=== PATIENT | male | born 1950 | race Caucasian/White ===

== ENCOUNTER 2016-04-18 21:35 | Observation (INO) | payer MEDICARE ==
[2016-04-18] MEDS ORDERED: SODIUM CHLORIDE 0.9% 1,000 ML IV ONE (21:59)
[2016-04-18] MEDS ORDERED: SODIUM CHLORIDE 0.9% 500 ML IV ONE (21:59)
[2016-04-18 22:14] LABS: Basophils # (A) 0.2 k/uL (0-0.2); Basophils % (A) 2 %; CH 30.1; CHCM 33.8; Eosinophils # (A) 0.2 k/uL (0-0.7); Eosinophils % (A) 2 %; HCT 40.5 % (39.0-53.0); HGB 13.3 gm/dL (13.0-17.5); Luc # (Auto) 0.07; Luc % (Auto) 1; Lymphocytes # (A) 1.6 k/uL (1.0-4.8); Lymphocytes % (A) 18 %; MCH 29.2 pg (25.0-35.0); MCHC 32.7 g/dL (31.0-37.0); MCV 89.4 fL (80.0-100.0); Mean Platelet Volume 7.8; Monocytes # (A) 0.7 k/uL (0-1.0); Monocytes % (A) 7 %; Neutrophils # (A) 6.4 k/uL (1.3-7.7); Neutrophils % (A) 70 %; RBC 4.54 m/uL (4.30-5.90); RDW 13.5 % (11.5-15.5); WBC 9.1 k/uL (3.8-10.6); WBC (Perox) 9.34
[2016-04-18 22:22] LABS: ALT 31 U/L (21-72); AST 23 U/L (17-59); Alkaline Phosphatase 54 U/L (38-126); Anion Gap 16 mmol/L; Blood Urea Nitrogen 17 mg/dL (9-20); Calcium 9.9 mg/dL (8.4-10.2); Carbon Dioxide 23 mmol/L (22-30); Chloride 106 mmol/L (98-107); Glucose 134 mg/dL (74-99); INR 1.1 (<1.1); Non-African American GFR(MDRD) >60 (>60 ml/min/1.73 sqM); Partial Thromboplastin Time 27.9 sec (22.0-30.0); Potassium 4.4 mmol/L (3.5-5.1); Prothrombin Time 10.9 sec (9.0-12.0); Sodium 145 mmol/L (137-145); Total Bilirubin 1.5 mg/dL (0.2-1.3); Total Protein 7.7 g/dL (6.3-8.2)
--- NOTE | 2016-04-18 22:45 | ED ---
Fall HPI - General Chief Complaint: Fall Stated Complaint: FALL Time Seen by Provider: 04/18/16 21:48 Source: patient, EMS Mode of arrival: EMS - History of Present Illness Initial Comments: This 65-year-old white male presents with a complaint of multiple falls. He apparently fell earlier today and again shortly prior to arrival. He states that he hit his head on both occasions. He is unsure if he lost consciousness. He apparently had surgery on his right leg approximately 2 weeks ago. He's been getting around with a walker at home. He is unsure how he fell. He states that he has pain throughout his entire body. It seems somewhat worse into his lower back and into his back. He has been taking [place] baclofen and Valium for his symptoms. He denies taking more of these medications than he should. His daughter apparently may have related to paramedics that he may be abusing his pain medications. He is a very poor historian at this time and is minimally slurring his speech. He denies any chest pain or shortness of breath. He does relate that he has chronic vertigo and this affects his ambulation as well. No other complaints or modifying factors. - Related Data Home Medications Medication Instructions Recorded Confirmed Atorvastatin [Lipitor] 10 mg PO HS 10/08/15 03/24/16 Lisinopril [Zestril] 20 mg PO DAILY 10/08/15 03/24/16 metFORMIN HCL [Glucophage] 500 mg PO AC-BID 10/08/15 03/24/16 DULoxetine HCL [Duloxetine HCl] 30 mg PO HS 03/10/16 03/24/16 DULoxetine HCL [Duloxetine HCl] 60 mg PO DAILY 03/10/16 03/24/16 Magnesium Oxide [Mag-Ox] 400 mg PO DAILY 03/10/16 03/24/16 Diazepam [Valium] 5 mg PO HS 03/24/16 03/24/16 Previous Rx's Medication Instructions Recorded Baclofen [Lioresal] 10 mg PO QID #30 tab 03/15/16 HYDROcodone/APAP 10-325MG [[place] 1 - 2 each PO Q4-6H PRN #90 tab 03/15/16 10-325] Heparin Sodium,Porcine [Heparin 5,000 unit SQ Q12H 10 Days 03/15/16 Sodium] Sennosides-Docusate Sodium 1 tab PO BID #60 tablet 03/15/16 [Senokot-S] hydrOXYzine PAMOATE [Vistaril] 25 mg PO Q4HR PRN #60 cap 03/15/16 HYDROcodone/APAP 10-325MG [[place] 1 - 2 tab PO Q6H PRN #60 tab 03/23/16 10-325] Allergies Allergy/AdvReac Type Severity Reaction Status Date / Time cephalexin monohydrate Allergy Anaphylaxis Verified 03/24/16 15:40 [From Keflex] Penicillins Allergy Anaphylaxis Verified 03/24/16 15:40 Review of Systems ROS Statement: Those systems with pertinent positive or pertinent negative responses have been documented in the HPI. ROS Other: All systems not noted in ROS Statement are negative. Past Medical History Past Medical History: Atrial Fibrillation, Diabetes Mellitus, GERD/Reflux, Hypertension, Osteoarthritis (OA), Pneumonia Additional Past Medical History / Comment(s): 03-10-16 FELL/FX RT FIBULA, VERTIGO History of Any Multi-Drug Resistant Organisms: None Reported Past Surgical History: Back Surgery, Orthopedic Surgery Additional Past Surgical History / Comment(s): Bilateral mastectomy with right sided lymp node removal, rt. knee cap removed, back surgery for herniated disc. , Brain stem surgery for decompression-for dizziness, right ankle ORIF Past Anesthesia/Blood Transfusion Reactions: No Reported Reaction Past Psychological History: No Psychological Hx Reported Smoking Status: Former smoker Past Alcohol Use History: None Reported Additional Past Alcohol Use History / Comment(s): STARTED SMOKING AT AGE 18, SMOKE A PIPE GOES THRU A PACK OF PIPE TOBACCO/DAY quit smoking in 2005 Past Drug Use History: None Reported - Past Family History Father History Unknown: Yes Family Medical History: Congestive Heart Failure (CHF), Coronary Artery Disease (CAD), Hypertension Mother History Unknown: Yes Additional Family Medical History / Comment(s): pulmonary HTN General Exam - General Exam Comments Initial Comments: GENERAL: The patient is well nourished and well hydrated. VITAL SIGNS: Heart rate, blood pressure, respiratory rate reviewed as recorded in nurse's notes. EYES: Pupils are round and reactive. Extraocular movements are intact. No conjunctival / lid redness or swelling. ENT: No external evidence of injury, swelling, or ecchymosis. Airway is patent. Throat is clear. NECK: There is mild tenderness noted to the paracervical musculature. No swelling or evidence of injury. No subcutaneous emphysema. Trachea is midline. No thyroid mass. HEART: Regular rate and rhythm. Good peripheral pulses. LUNGS/CHEST: Breath sounds clear and equal bilaterally. No rales, rhonchi, or wheezes. No ecchymosis, subcutaneous emphysema, or tenderness. ABDOMEN: Abdomen soft without tenderness. No palpable masses or organomegaly. No peritoneal signs. No abdominal wall swelling or ecchymosis. EXTREMITIES: The patient has a cast on his right leg just distal to his knee through his foot. Normal muscle tone and function otherwise. There is mild tenderness to the paralumbar musculature. NEUROLOGIC: Sensation is grossly intact. Cranial nerve exam reveals face is symmetrical, tongue is midline, speech is mildly slurred. SKIN: No abrasions or ecchymosis is noted. No induration or masses noted. PSYCHIATRIC: Alert and oriented. He is answering questions but appears drowsy at times. Limitations: no limitations Course Vital Signs 04/18/16 04/18/16 21:38 23:04 Temperature 97.3 F L 97.5 F L Pulse Rate 95 91 Respiratory 18 16 Rate Blood Pressure 107/53 100/60 O2 Sat by Pulse 94 L 95 Oximetry Medical Decision Making - Medical Decision Making The patient was seen and examined. All diagnostics are reviewed. The patient had laboratory work done which was all essentially within normal limits. His EKG shows a sinus rhythm with occasional PAC. Shows an incomplete right bundle- branch block. The AK interval is 166, QRS duration is 92, and the QTc interval is 441. There is no acute ST-T wave changes otherwise noted. He had an x-ray of his chest which shows some subsegmental atelectasis on the left. The x-ray of the lumbar spine shows some spondylosis and some osteophytic changes. The computed tomography scan of the brain shows a right maxillary sinusitis. The computed tomography scan of the neck shows some spondylotic changes. He appears much more lucid on recheck. Overall, it appears that he has had 3 falls at home. He is postsurgical. He is also morbidly obese. He is at high risk for falls once again. He apparently hit his head twice already. It is felt as though he benefit from admission to the hospital for further evaluation and treatment and potentially additional physical therapy and/or rehab. Case is discussed with Dr. Mcpherson and he is agreeable to admission. - Lab Data Result diagrams: 04/18/16 21:46 04/18/16 21:46 Lab Results 04/18/16 04/18/16 04/18/16 Range/Units 21:46 21:46 21:46 WBC 9.1 (3.8-10.6) k/uL RBC 4.54 (4.30-5.90) m/uL Hgb 13.3 (13.0-17.5) gm/dL Hct 40.5 (39.0-53.0) % MCV 89.4 (80.0-100.0) fL MCH 29.2 (25.0-35.0) pg MCHC 32.7 (31.0-37.0) g/dL RDW 13.5 (11.5-15.5) % Plt Count 213 (150-450) k/uL Neutrophils % 70 % Lymphocytes % 18 % Monocytes % 7 % Eosinophils % 2 % Basophils % 2 % Neutrophils # 6.4 (1.3-7.7) k/uL Lymphocytes # 1.6 (1.0-4.8) k/uL Monocytes # 0.7 (0-1.0) k/uL Eosinophils # 0.2 (0-0.7) k/uL Basophils # 0.2 (0-0.2) k/uL PT 10.9 (9.0-12.0) sec INR 1.1 (<1.1) APTT 27.9 (22.0-30.0) sec Sodium 145 (137-145) mmol/L Potassium 4.4 (3.5-5.1) mmol/L Chloride 106 (98-107) mmol/L Carbon Dioxide 23 (22-30) mmol/L Anion Gap 16 mmol/L BUN 17 (9-20) mg/dL Creatinine 1.01 (0.66-1.25) mg/dL Est GFR (MDRD) Af Amer >60 (>60 ml/min/1.73 sqM) Est GFR (MDRD) Non-Af >60 (>60 ml/min/1.73 sqM) Glucose 134 H (74-99) mg/dL Calcium 9.9 (8.4-10.2) mg/dL Total Bilirubin 1.5 H (0.2-1.3) mg/dL AST 23 (17-59) U/L ALT 31 (21-72) U/L Alkaline Phosphatase 54 (38-126) U/L Total Protein 7.7 (6.3-8.2) g/dL Albumin 4.4 (3.5-5.0) g/dL Disposition Clinical Impression: Recurrent falls, Head injury, Cervical strain, Lumbar strain, Recent surgical procedure on lower extremity, Inability to ambulate due to right ankle or foot, Morbid obesity Disposition: ADMITTED IP TO THIS [facility] Condition: Fair Time of Disposition: 00:01 Decision Date: 04/19/16 Decision Time: 00:02
--- NOTE | 2016-04-18 23:02 | CT ---
EXAMINATION TYPE: CT brain cspine wo con DATE OF EXAM: 04/18/2016 10:55 PM COMPARISON: 12/11/2015 HISTORY: Fall injury x2. CT DLP: 1772.8 mGycm Automated exposure control for dose reduction was used. TECHNIQUE: CT scan of the head and cervical spine are performed without contrast. FINDINGS: There is mild cerebral cortical atrophy. There is no mass effect nor midline shift. There is no sign of intracranial hemorrhage. The calvarium is intact. There is opacification of the right maxillary sinus. There is mild wall thickening. The cervical vertebra have normal alignment. There is hypertrophic spurring anteriorly from C5 to C7. Posterior elements are intact. Skull base is intact. Exam is limited slightly by motion. There is no evidence or fracture. IMPRESSION: Chronic right maxillary sinusitis. Brain is unchanged compared to old exam. Spondylotic changes in the cervical spine. No fracture.
--- NOTE | 2016-04-18 23:12 | XR ---
EXAMINATION TYPE: XR chest 2V DATE OF EXAM: 04/18/2016 11:08 PM COMPARISON: 03/10/2016 HISTORY: Weakness TECHNIQUE: Frontal and lateral views of the chest are obtained. FINDINGS: There is mild linear density at the left lung base. Heart size is normal. There is no hear t failure. There are no hilar masses. Bony thorax is intact. IMPRESSION: Mild subsegmental atelectasis at the left lung base without change compared to old exam. Normal heart.
--- NOTE | 2016-04-18 23:13 | XR ---
EXAMINATION TYPE: XR lumbar spine 2 or 3V DATE OF EXAM: 04/18/2016 11:08 PM COMPARISON: 10/21/2014 HISTORY: Back pain after a fall TECHNIQUE: 3 views FINDINGS: Vertebra have normal alignment. There is hypertrophic spurring anteriorly throughout the aleyda mbar spine. I see no compression fracture. The posterior elements appear intact. Sacroiliac joints ar e intact. IMPRESSION: Moderate multilevel spondylosis. Bridging osteophyte formation in the upper lumbar spine. No fracture. No change.
[2016-04-19] MEDS ORDERED: ONDANSETRON 4 MG/2 ML VIAL IVP PRN (00:07)
[2016-04-19] MEDS ORDERED: NALOXONE 0.4 MG/ML 1 ML VIAL IV PRN (00:07)
[2016-04-19 02:10] VITALS: BMI 35.3
[2016-04-19] MEDS: HYDROcodone/APAP 10-325MG 1 EACH TAB PO PRN ×3 (02:48→18:44)
[2016-04-19 07:21] LABS: Glucose,Whole Blood 99 mg/dL (75-99)
[2016-04-19] MEDS: metFORMIN 500 MG TAB PO SCH ×2 (07:22→17:57)
[2016-04-19] MEDS ORDERED: PANTOPRAZOLE 40 MG/10 ML VIAL IV SCH (09:00)
[2016-04-19] MEDS: LISINOPRIL 20 MG TAB PO SCH (09:24)
[2016-04-19] MEDS: MAGNESIUM OXIDE 400 MG TAB PO SCH (09:25)
[2016-04-19] MEDS: ENOXAPARIN 40 MG/0.4 ML SYRINGE SQ SCH (09:26)
--- NOTE | 2016-04-19 09:42 | P.CNOR ---
History of Present Illness - [facility] Consult date: 04/19/16 Consult reason: fracture (Follow-up right ankle fracture) History of present illness: This is a 65-year-old male who is status post open reduction internal fixation of the right ankle on 03/23/2016. The patient did go to rehab postoperatively. He has now home with his daughter. Patient's daughter states that he is taking way too much pain medication and muscle relaxants. The patient states that he is taking his medication as prescribed. There are arguing in the room during the evaluation today. She also states that he has been bearing weight to the right lower extremity AGAINST MEDICAL ADVICE. He has had multiple falls within the past week or so. The daughter feels that he is falling secondary to too much narcotic. We're consulted for orthopedic follow-up. He complains of no injuries from the fall. He has a chronic low back pain which is unchanged. Past Medical History Past Medical History: Atrial Fibrillation, Diabetes Mellitus, GERD/Reflux, Hypertension, Osteoarthritis (OA), Pneumonia Additional Past Medical History / Comment(s): 03-10-16 FELL/FX RT FIBULA, VERTIGO History of Any Multi-Drug Resistant Organisms: None Reported Past Surgical History: Back Surgery, Orthopedic Surgery Additional Past Surgical History / Comment(s): Bilateral mastectomy with right sided lymp node removal, rt. knee cap removed, back surgery for herniated disc. , Brain stem surgery for decompression-for dizziness, right ankle ORIF Past Anesthesia/Blood Transfusion Reactions: No Reported Reaction Past Psychological History: No Psychological Hx Reported Smoking Status: Former smoker Past Alcohol Use History: None Reported Additional Past Alcohol Use History / Comment(s): STARTED SMOKING AT AGE 18, SMOKE A PIPE GOES THRU A PACK OF PIPE TOBACCO/DAY quit smoking in 2005 Past Drug Use History: None Reported - Past Family History Father History Unknown: Yes Family Medical History: Congestive Heart Failure (CHF), Coronary Artery Disease (CAD), Hypertension Mother History Unknown: Yes Family Medical History: Hypertension Additional Family Medical History / Comment(s): pulmonary hypertension Medications and Allergies Home Medications Medication Instructions Recorded Confirmed Type Atorvastatin [Lipitor] 10 mg PO HS 10/08/15 04/19/16 History Lisinopril [Zestril] 20 mg PO DAILY 10/08/15 04/19/16 History metFORMIN HCL [Glucophage] 500 mg PO AC-BID 10/08/15 04/19/16 History DULoxetine HCL [Duloxetine HCl] 30 mg PO HS 03/10/16 04/19/16 History DULoxetine HCL [Duloxetine HCl] 60 mg PO DAILY 03/10/16 04/19/16 History Magnesium Oxide [Mag-Ox] 400 mg PO DAILY 03/10/16 04/19/16 History Diazepam [Valium] 5 mg PO HS 03/24/16 04/19/16 History Allergies Allergy/AdvReac Type Severity Reaction Status Date / Time cephalexin monohydrate Allergy Anaphylaxis Verified 03/24/16 15:40 [From Keflex] Penicillins Allergy Anaphylaxis Verified 03/24/16 15:40 Physical Examination This is a 65-year-old male in no acute distress. He is alert and oriented 3. Exam of the head neck reveal no obvious deformity. He has full cervical spine motion without difficulty or pain. He has full motion to the upper extremities without difficulty or pain. Neurovascular status the upper extremities is intact. Exam of the lower extremities reveals no hip pain or irritability bilaterally. There is a cast intact to the right lower leg. He has full toe motion without difficulty or pain. Neurovascular status to the lower extremities intact. Results - Labs Result Diagrams: 04/18/16 21:46 04/18/16 21:46 Assessment and Plan (1) Recent surgical procedure on lower extremity Status: Acute (2) History of fracture of right ankle Status: Acute (3) Recurrent falls Status: Acute Plan: The clinical findings are discussed the patient and the daughter. I have asked for social work to evaluate the patient. It is my impression that he is taking too much narcotic pain medication in combination with Valium and baclofen. The daughter is unable to handle the patient at home and is getting frustrated. I will obtain x-rays of the right ankle for follow-up. He is to continue nonweightbearing to the right lower extremity.
--- NOTE | 2016-04-19 10:17 | XR ---
EXAMINATION TYPE: XR ankle limited RT DATE OF EXAM: 04/19/2016 9:46 AM COMPARISON: 03/12/2016 HISTORY: Pain, postop FINDINGS: There is improved alignment the fracture with postsurgical changes noted appearing near-eldon tomic. Improvement in alignment of the ankle mortise. Large calcaneal spurs noted. Tiny avulsion fracture involving the medial malleolus suggested. IMPRESSION: 1. Postoperative change appears in near-anatomic alignment 2. Minimally displaced medial malleolus avulsion fracture.
[2016-04-19 11:00] LABS: Glucose,Whole Blood 108 mg/dL (75-99)
[2016-04-19] MEDS: DULoxetine HCL 60 MG CAPSULE.DR PO SCH (11:01)
[2016-04-19] MEDS: BACLOFEN 10 MG TAB PO SCH ×4 (11:02→21:43)
[2016-04-19] MEDS: SENNOSIDES-DOCUSATE SODIUM 1 EACH TAB PO SCH ×2 (11:04→21:43)
--- NOTE | 2016-04-19 15:37 | P.HPIM ---
History of Present Illness H&P Date: 04/19/16 Chief Complaint: Fall Patient is a 65-year-old white male, patient of Dr. Ganesh Mcpherson in the outpatient setting, with medical history significant for open reduction internal fixation of right ankle on 03/23/2016, obesity, chronic vertical, chronic atrial fibrillation, diabetes mellitus type 2, GERD, hypertension, COPD , ulcerative colitis, and chronic back pain. Patient presented to the emergency department after he fell 3 times at home and hit his head twice. Chest x-ray with mild atelectasis left lung base with no change from previous exam. CT brain and cervical spine with evidence of chronic right maxillary sinusitis; mild cerebral cortical atrophy; no sign of intracranial hemorrhage; spondylotic changes in the cervical spine without evidence of fracture. Admission labs and vitals unremarkable. EKG normal sinus rhythm with occasional PACs and incomplete right bundle sprain's block with no acute ST-T wave changes. Patient was admitted to the surgical floor for further evaluation with consult to orthopedic service and social work. Upon examination, patient complains of chronic back pain with sciatica to his right side. Patient reports occasional dizziness and states he has to have his head of bed elevated to prevent vertigo-like symptoms. Patient states he has been using his walker at home to get around but states it's been unstable and causing him to fall. Patient at this time is complaining of dysuria. Denies chills, fevers, shortness of breath, chest pain, or abdominal pain. According to daughter, who is at bedside and who is living with patient, patient has been getting up without asking for help despite being told to ask for assistance when going to the bathroom. Daughter states that patient has been acting himself since being discharged from [facility] 2 weeks ago. Daughter feels that patient has been taking too much of his prescribed narcotics and muscle relaxants. Daughter fears for patient's safety at home. Past Medical History Past Medical History: Atrial Fibrillation, Diabetes Mellitus, GERD/Reflux, Hypertension, Osteoarthritis (OA), Pneumonia Additional Past Medical History / Comment(s): 03-10-16 FELL/FX RT FIBULA, VERTIGO History of Any Multi-Drug Resistant Organisms: None Reported Past Surgical History: Back Surgery, Orthopedic Surgery Additional Past Surgical History / Comment(s): Bilateral mastectomy with right sided lymp node removal, rt. knee cap removed, back surgery for herniated disc. , Brain stem surgery for decompression-for dizziness, right ankle ORIF Past Anesthesia/Blood Transfusion Reactions: No Reported Reaction Past Psychological History: No Psychological Hx Reported Smoking Status: Former smoker Past Alcohol Use History: None Reported Additional Past Alcohol Use History / Comment(s): STARTED SMOKING AT AGE 18, SMOKE A PIPE GOES THRU A PACK OF PIPE TOBACCO/DAY quit smoking in 2005 Past Drug Use History: None Reported - Past Family History Father History Unknown: Yes Family Medical History: Congestive Heart Failure (CHF), Coronary Artery Disease (CAD), Hypertension Mother History Unknown: Yes Family Medical History: Hypertension Additional Family Medical History / Comment(s): pulmonary hypertension Medications and Allergies Home Medications Medication Instructions Recorded Confirmed Type Atorvastatin [Lipitor] 10 mg PO HS 10/08/15 04/19/16 History Lisinopril [Zestril] 20 mg PO DAILY 10/08/15 04/19/16 History metFORMIN HCL [Glucophage] 500 mg PO AC-BID 10/08/15 04/19/16 History DULoxetine HCL [Duloxetine HCl] 30 mg PO HS 03/10/16 04/19/16 History DULoxetine HCL [Duloxetine HCl] 60 mg PO DAILY 03/10/16 04/19/16 History Magnesium Oxide [Mag-Ox] 400 mg PO DAILY 03/10/16 04/19/16 History Diazepam [Valium] 5 mg PO HS 03/24/16 04/19/16 History Allergies Allergy/AdvReac Type Severity Reaction Status Date / Time cephalexin monohydrate Allergy Anaphylaxis Verified 03/24/16 15:40 [From Keflex] Penicillins Allergy Anaphylaxis Verified 03/24/16 15:40 Physical Exam Vitals: Vital Signs Temp Pulse Pulse Resp BP Pulse Ox 04/19/16 14:53 97.7 F 76 16 141/68 94 L 04/19/16 08:00 72 75 16 04/19/16 07:00 96.9 F L 72 16 124/76 94 L 04/19/16 01:00 97.4 F L 75 16 124/77 96 Intake and Output 04/18/16 04/19/16 04/19/16 22:59 06:59 14:59 Intake Total 500 1080 Output Total 280 800 Balance 220 280 Intake: IV 500 600 Sodium Chloride 0.9% 1, 500 600 000 ml @ 100 mls/hr IV . Q10H ONE Rx#:[id number] Oral 480 Output: Urine 280 800 Other: Voiding Method Urinal Urinal # Voids 1 Weight 131.542 kg GENERAL: Pt awake and alert, well-appearing, well-nourished, and in no acute distress. HEAD: Atraumatic, normocephalic. EYES: Pupils equal, round, and reactive to light, extraocular movements intact, sclera anicteric, conjunctiva are normal. ENT: Moist mucous membranes. NECK:Supple without lymphadenopathy or JVD. LUNGS: Breath sounds diminished to auscultation bilaterally. No wheezes, rales , or rhonchi. HEART: Heart S1, S2, no S3 or S4. Regular rate and rhythm. No murmurs, rubs or gallops. ABDOMEN: Soft, obese, nontender, nondistended, normoactive bowel sounds. No guarding, no rebound. No masses or organomegaly appreciated. EXTREMITIES: 2+ peripheral pulses. Cast right lower leg. Neurovascular status to lower extremities intact. NEUROLOGICAL: Pt oriented x 3. No neurological focal deficits. Speech normal. Strength and sensation grossly intact. PSYCH: Normal mood, normal affect. SKIN: Warm, dry, intact. Normal turgor. No rashes or lesions. Results CBC & Chem 7: 04/18/16 21:46 04/18/16 21:46 Labs: Abnormal Lab Results - Last 24 Hours (Table) 04/19/16 Range/Units 10:54 POC Glucose (mg/dL) 108 H (75-99) mg/dL Thrombosis Risk Factor Assmnt - DVT/VTE Prophylaxis DVT/VTE Prophylaxis: Pharmacologic Prophylaxis ordered - Choose All That Apply Any of the Below Risk Factors Present?: Yes Each Factor Represents 1 point: Age 41-60 years, History of prior major surgery (<1month), Obesity (BMI >25) Other Risk Factors: Yes Each Risk Factor Represents 2 Points: Age 61-74 years, Immobilizing plaster cast , Major surgery Each Risk Factor Represents 5 Points: Hip, pelvis, or leg fracture (< 1 month) Thrombosis Risk Factor Assessment Total Risk Factor Score: 14 Thrombosis Risk Factor Assessment Level: High Risk Assessment and Plan Plan: Impression: 1. Recurrent falls with head injury, present on admission, suspect secondary to possible overmedication of aquatics and muscle relaxers. 2. History of ORIF of right ankle on 03/23/2016. 3. Gait dysfunction secondary to nonweightbearing to right lower extremity. 4. Chronic vertigo status post surgical decompression in [place] including right cerebellar pontine angle. 5. Diabetes mellitus type 2. 6. GERD. 7. Hypertension. 8. COPD. 9. History of ulcerative colitis. 10. History of chronic back pain. 11. History of nicotine dependence. 12. History of osteoarthritis. 13. History of atrial fibrillation. 14. Dysuria. Plan: Obtain urinalysis. Resume home medications. Will hold Vistaril at this time. Accu-Cheks before meals at bedtime with Humalog sliding scale. Consult physical therapy. Consult social work to help with discharge planning. Orthopedic consult in place, recommendations noted. Patient to remain nonweightbearing to right lower extremity at this time. Maintain fall precautions. Continue GI and DVT prophylaxis. The above impression and plan have been discussed and directed by Dr. Mcpherson. Ralph PLASENCIA acting as scribe for Dr. Mcpherson.
[2016-04-19 17:06] LABS: Glucose,Whole Blood 125 mg/dL (75-99)
[2016-04-19 20:02] LABS: Glucose,Whole Blood 95 mg/dL (75-99)
[2016-04-19] MEDS ORDERED: ATORVASTATIN 10 MG TAB PO SCH (21:00)
[2016-04-19] MEDS ORDERED: DIAZEPAM 5 MG TAB PO SCH (21:00)
[2016-04-19] MEDS ORDERED: DULoxetine HCL 30 MG CAPSULE.DR PO SCH (21:00)
[2016-04-20] MEDS: HYDROcodone/APAP 10-325MG 1 EACH TAB PO PRN ×2 (01:10→07:24)
[2016-04-20] MEDS ORDERED: PANTOPRAZOLE 40 MG TABLET PO SCH (07:30)
[2016-04-20 07:57] LABS: Glucose,Whole Blood 82 mg/dL (75-99)
[2016-04-20 08:24] VITALS: BP 135/84; PULSE 65; RESP 16; TEMP 97.7
[2016-04-20 08:26] LABS: Basophils % (A) 0 %; CH 29.5; CHCM 32.2; Eosinophils # (A) 0.4 k/uL (0-0.7); Eosinophils % (A) 7 %; HCT 35.5 % (39.0-53.0); HDW 2.84; HGB 11.7 gm/dL (13.0-17.5); Luc # (Auto) 0.14; Luc % (Auto) 3; Lymphocytes # (A) 2.1 k/uL (1.0-4.8); Lymphocytes % (A) 38 %; MCH 30.5 pg (25.0-35.0); MCV 92.3 fL (80.0-100.0); Mean Platelet Volume 6.9; Monocytes # (A) 0.3 k/uL (0-1.0); Monocytes % (A) 6 %; Neutrophils # (A) 2.6 k/uL (1.3-7.7); Neutrophils % (A) 46 %; RBC 3.85 m/uL (4.30-5.90); RDW 13.4 % (11.5-15.5); WBC 5.6 k/uL (3.8-10.6)
--- NOTE | 2016-04-20 08:27 | P.PN ---
Subjective Principal diagnosis: Status post right ankle fracture with fixation. This is a 65-year-old male who is status post open reduction internal fixation of the right ankle on 03/23/2016. He is readmitted with multiple falls. X- rays were taken yesterday of the ankle through the cast which show good position and alignment of the hardware and fracture. There are some social issues. The daughter is asking for social work to get involved regarding his home care. Objective - Vital Signs Vital signs: Vital Signs Temp 97.7 F 04/20/16 07:00 Pulse 65 04/20/16 07:00 Resp 16 04/20/16 07:00 BP 135/84 04/20/16 07:00 Pulse Ox 96 04/20/16 07:00 Intake & Output 04/19/16 04/20/16 04/20/16 18:59 06:59 18:59 Intake Total 1440 540 Output Total 800 2150 Balance 640 -1610 Weight 131.542 kg Intake: IV 600 Sodium Chloride 0.9% 1, 600 000 ml @ 100 mls/hr IV . Q10H ONE Rx#:[id number] Oral 840 540 Output: Urine 800 2150 Other: Voiding Method Urinal Urinal # Voids 1 - Exam This is a 65-year-old male in no acute distress. He is alert and oriented at this time. Exam of the right lower extremity reveals his cast is intact. Cast is in good condition. He has full toe motion without difficulty or pain. Neurovascular status to the right lower extremity is intact. - Labs CBC & Chem 7: 04/18/16 21:46 04/18/16 21:46 Labs: Abnormal Lab Results - Last 24 Hours (Table) 04/19/16 04/19/16 Range/Units 10:54 17:04 POC Glucose (mg/dL) 108 H 125 H (75-99) mg/dL Assessment and Plan (1) Recent surgical procedure on lower extremity Status: Acute (2) History of fracture of right ankle Status: Acute (3) Recurrent falls Status: Acute Plan: The clinical and x-ray findings are discussed with the patient. He is to continue nonweightbearing to the right lower extremity with a walker. He is to follow-up in our office in 2 weeks for reevaluation and x-ray.
[2016-04-20 08:31] LABS: Anion Gap 11 mmol/L; Blood Urea Nitrogen 13 mg/dL (9-20); Calcium 8.9 mg/dL (8.4-10.2); Carbon Dioxide 25 mmol/L (22-30); Chloride 108 mmol/L (98-107); Glucose 90 mg/dL (74-99); Non-African American GFR(MDRD) >60 (>60 ml/min/1.73 sqM); Sodium 144 mmol/L (137-145)
[2016-04-20] MEDS: BACLOFEN 10 MG TAB PO SCH ×2 (09:36→12:38)
[2016-04-20] MEDS: metFORMIN 500 MG TAB PO SCH (09:37)
[2016-04-20] MEDS: DULoxetine HCL 60 MG CAPSULE.DR PO SCH (09:38)
[2016-04-20] MEDS: ENOXAPARIN 40 MG/0.4 ML SYRINGE SQ SCH (09:38)
[2016-04-20] MEDS: LISINOPRIL 20 MG TAB PO SCH (09:38)
[2016-04-20] MEDS: MAGNESIUM OXIDE 400 MG TAB PO SCH (09:38)
[2016-04-20 11:50] LABS: Appearance,Urine Clear (Clear); Bilirubin,Urine Negative (Negative); Glucose,Urine (UA) Negative (Negative); Ketones,Urine Negative (Negative); Leukocyte Esterase,Urine Negative (Negative); Nitrite,Urine Negative (Negative); Protein,Urine Negative (Negative); Specific Gravity,Urine 1.007 (1.001-1.035); UA Billing (MACRO vs. MICRO) CHEM; Urobilinogen,Urine <2.0 mg/dL (<2.0)
[2016-04-20 12:28] LABS: Glucose,Whole Blood 80 mg/dL (75-99)
[2016-04-20] MEDS: SENNOSIDES-DOCUSATE SODIUM 1 EACH TAB PO SCH (12:38)
--- NOTE | 2016-04-20 12:42 | P.DS ---
Providers Date of admission: 04/19/16 00:07 Expected date of discharge: 04/20/16 Attending physician: Ganesh Mcpherson Consults: Dr. Hathaway Primary care physician: Ganesh Mcpherson [place] [facility] Course: Patient is a 65-year-old white male, patient of Dr. Ganesh Mcpherson in the outpatient setting, with medical history significant for open reduction internal fixation of right ankle on 03/23/2016, obesity, chronic vertical, chronic atrial fibrillation, diabetes mellitus type 2, GERD, hypertension, COPD , ulcerative colitis, and chronic back pain. Patient presented to the emergency department after he fell 3 times at home and hit his head twice. Chest x-ray with mild atelectasis left lung base with no change from previous exam. CT brain and cervical spine with evidence of chronic right maxillary sinusitis; mild cerebral cortical atrophy; no sign of intracranial hemorrhage; spondylotic changes in the cervical spine without evidence of fracture. Admission labs and vitals unremarkable. EKG normal sinus rhythm with occasional PACs and incomplete right bundle sprain's block with no acute ST-T wave changes. Urinalysis negative. Patient was evaluated by orthopedic service and x-ray taken of right angle which showed good position and alignment. Patient was evaluated by physical therapy who recommended subacute rehab for patient. Social work was also consulted to help with discharge planning. At this time, patient will be discharged home with home care and physical therapy as he is refusing ECF. Patient instructed to remain nonweightbearing with his right leg. Patient given prescription for commode as he is confined to his room due to limited mobility. Discharge diagnoses: 1. Recurrent falls with head injury, present on admission, suspect secondary to possible overmedication of narcotics and muscle relaxers. 2. History of ORIF of right ankle on 03/23/2016. 3. Gait dysfunction secondary to nonweightbearing to right lower extremity. 4. Chronic vertigo status post surgical decompression in [place] including right cerebellar pontine angle. 5. Diabetes mellitus type 2. 6. GERD. 7. Hypertension. 8. COPD. 9. History of ulcerative colitis. 10. History of chronic back pain. 11. History of nicotine dependence. 12. History of osteoarthritis. 13. History of atrial fibrillation. 14. Dysuria, urinalysis negative. The above impression and plan have been discussed and directed by Dr. Mcpherson. Ralph PLASENCIA acting as scribe for Dr. Mcpherson. Pertinent Studies: Chest x-ray; head and cervical spine CT; lumbar spine x-ray; ankle x-ray; EKG Patient Condition at Discharge: Fair Plan - Discharge Summary Discharge Medication List Atorvastatin [Lipitor] 10 mg PO HS 10/08/15 [History] Lisinopril [Zestril] 20 mg PO DAILY 10/08/15 [History] metFORMIN HCL [Glucophage] 500 mg PO AC-BID 10/08/15 [History] DULoxetine HCL [Duloxetine HCl] 30 mg PO HS 03/10/16 [History] DULoxetine HCL [Duloxetine HCl] 60 mg PO DAILY 03/10/16 [History] Magnesium Oxide [Mag-Ox] 400 mg PO DAILY 03/10/16 [History] Baclofen [Lioresal] 10 mg PO QID #30 tab 03/15/16 [Rx] Sennosides-Docusate Sodium [Senokot-S] 1 tab PO BID #60 tablet 03/15/16 [Rx] HYDROcodone/APAP 10-325MG [[place] 10-325] 1 - 2 tab PO Q6H PRN #60 tab 03/23/16 [ Rx] Diazepam [Valium] 5 mg PO HS 03/24/16 [History] Follow up Appointment(s)/Referral(s): Ganesh Mcpherson DO [Primary Care Provider] - 1-2 days Raymundo Hathaway MD [STAFF PHYSICIAN] - 2 Weeks Activity/Diet/Wound Care/Special Instructions: [facility] Visiting Nurse Discharge Disposition: HOME WITH HOME HEALTH SERVICES
== END 2016-04-20 15:00 | disposition home health service (06) ==
LOC: EC 21:35 → INTOOBSV 04-19 00:07 → 3SUR 04-19 00:07
PROVIDERS: ADMIT Family Medicine; ATTEND Family Medicine
DX: S09.90XA Unspecified injury of head, initial encounter (principal); R29.6 Repeated falls; R26.89 Other abnormalities of gait and mobility; R42 Dizziness and giddiness; E11.9 Type 2 diabetes mellitus without complications; K21.9 Gastro-esophageal reflux disease without esophagitis; I10 Essential (primary) hypertension; J44.9 Chronic obstructive pulmonary disease, unspecified; J32.0 Chronic maxillary sinusitis; I48.2 Chronic atrial fibrillation; J98.11 Atelectasis; K51.90 Ulcerative colitis, unspecified, without complications; R30.0 Dysuria; G89.29 Other chronic pain; M54.31 Sciatica, right side; M19.90 Unspecified osteoarthritis, unspecified site; I45.10 Unspecified right bundle-branch block; M47.9 Spondylosis, unspecified; E66.01 Morbid (severe) obesity due to excess calories; Z68.35 Body mass index [BMI] 35.0-35.9, adult; Z87.891 Personal history of nicotine dependence; Z90.13 Acquired absence of bilateral breasts and nipples; Z79.84 Long term (current) use of oral hypoglycemic drugs; Z79.899 Other long term (current) drug therapy; Z88.1 Allergy status to other antibiotic agents; Z88.0 Allergy status to penicillin; Z98.890 Other specified postprocedural states; W18.30XA Fall on same level, unspecified, initial encounter; Z91.81 History of falling; Y93.9 Activity, unspecified; Y92.019 Unspecified place in single-family (private) house as the place of occurrence of the external cause; Z82.49 Family history of ischemic heart disease and other diseases of the circulatory system
CPT/HCPCS: 36415; 94760; 93005; 97161; 80053; 80048; 85025 ×2; 85610; 85730; 81003; 71020; 72100; 73600; 72125; 70450; 99285; 96361 ×3; G0378 ×3; J1650 ×2; C9113

== ENCOUNTER 2016-05-04 01:33 | Emergency (ER) | payer MEDICARE ==
[2016-05-04 01:41] VITALS: PULSE 70; TEMP 97
--- NOTE | 2016-05-04 01:52 | ED ---
General Adult HPI - General Source: patient, EMS, RN notes reviewed Mode of arrival: EMS Limitations: physical limitation <James Hudson - Last Filed: 05/04/16 02:13> <Yousuf Alejandra - Last Filed: 05/04/16 07:53> - General Chief complaint: Fall Stated complaint: Knee Pain Time Seen by Provider: 05/04/16 01:38 - History of Present Illness Initial comments: Patient 65-year-old male who presents emergency room today by EMS, the chief complaint of a fall that occurred just prior to arrival. He does admit to a history of a ankle fracture 3 weeks ago does have cast on the right lower leg. He has with that he had have surgery. He states that he got out of bed and went to step down losing his balance and fell down onto the right knee. He does admit to some pain to the right knee area. Patient denies any other injuries or complaints. Patient denies any recent fever, chills, shortness of breath, chest pain, back pain, abdominal pain, nausea or vomiting, numbness or tingling, dysuria or hematuria, constipation or diarrhea, headaches or visual changes, or any other complaints. (James Hudson) - Related Data Home Medications Medication Instructions Recorded Confirmed Atorvastatin [Lipitor] 10 mg PO HS 10/08/15 04/19/16 Lisinopril [Zestril] 20 mg PO DAILY 10/08/15 04/19/16 metFORMIN HCL [Glucophage] 500 mg PO AC-BID 10/08/15 04/19/16 DULoxetine HCL [Duloxetine HCl] 30 mg PO HS 03/10/16 04/19/16 DULoxetine HCL [Duloxetine HCl] 60 mg PO DAILY 03/10/16 04/19/16 Magnesium Oxide [Mag-Ox] 400 mg PO DAILY 03/10/16 04/19/16 Diazepam [Valium] 5 mg PO HS 03/24/16 04/19/16 Previous Rx's Medication Instructions Recorded Baclofen [Lioresal] 10 mg PO QID #30 tab 03/15/16 Sennosides-Docusate Sodium 1 tab PO BID #60 tablet 03/15/16 [Senokot-S] HYDROcodone/APAP 10-325MG [[place] 1 - 2 tab PO Q6H PRN #60 tab 03/23/16 10-325] Allergies Allergy/AdvReac Type Severity Reaction Status Date / Time cephalexin monohydrate Allergy Anaphylaxis Verified 03/24/16 15:40 [From Keflex] Penicillins Allergy Anaphylaxis Verified 03/24/16 15:40 Review of Systems ROS Other: All systems not noted in ROS Statement are negative. <James Hudson - Last Filed: 05/04/16 02:13> ROS Other: All systems not noted in ROS Statement are negative. <Yousuf Alejandra - Last Filed: 05/04/16 07:53> ROS Statement: Those systems with pertinent positive or pertinent negative responses have been documented in the HPI. Past Medical History Past Medical History: Atrial Fibrillation, Diabetes Mellitus, GERD/Reflux, Hypertension, Osteoarthritis (OA), Pneumonia Additional Past Medical History / Comment(s): 03-10-16 FELL/FX RT FIBULA, VERTIGO History of Any Multi-Drug Resistant Organisms: None Reported Past Surgical History: Back Surgery, Orthopedic Surgery Additional Past Surgical History / Comment(s): Bilateral mastectomy with right sided lymp node removal, rt. knee cap removed, back surgery for herniated disc. , Brain stem surgery for decompression-for dizziness, right ankle ORIF Past Anesthesia/Blood Transfusion Reactions: No Reported Reaction Past Psychological History: No Psychological Hx Reported Smoking Status: Former smoker Past Alcohol Use History: None Reported Additional Past Alcohol Use History / Comment(s): STARTED SMOKING AT AGE 18, SMOKE A PIPE GOES THRU A PACK OF PIPE TOBACCO/DAY quit smoking in 2005 Past Drug Use History: None Reported - Past Family History Father History Unknown: Yes Family Medical History: Congestive Heart Failure (CHF), Coronary Artery Disease (CAD), Hypertension Mother History Unknown: Yes Family Medical History: Hypertension Additional Family Medical History / Comment(s): pulmonary hypertension <James Hudson - Last Filed: 05/04/16 02:13> General Exam Limitations: physical limitation <James Hudson - Last Filed: 05/04/16 02:13> <Yousuf Alejandra - Last Filed: 05/04/16 07:53> - General Exam Comments Initial Comments: General: The patient is awake and alert, in no distress, and does not appear acutely ill. Eye: Pupils are equal, round and reactive to light, extra-ocular movements are intact. No nystagmus. There is normal conjunctiva bilaterally. No signs of icterus. Ears, nose, mouth and throat: There are moist mucous membranes and no oral lesions. Neck: The neck is supple, there is no tenderness or JVD. Cardiovascular: There is a regular rate and rhythm. No murmur, rub or gallop is appreciated. Respiratory: Lungs are clear to auscultation, respirations are non-labored, breath sounds are equal. No wheezes, stridor, rales, or rhonchi. Musculoskeletal: Patient does have cast to the right lower extremity. Sensations intact. Cap refill less than 2 seconds. Patient does have tenderness of both the anterior and posterior aspects of the right knee. Strength 5/5. Sensation intact. Pulses equal bilaterally 2+. Neurological: A&O x 3. CN II-XII intact, There are no obvious motor or sensory deficits. Coordination appears grossly intact. Speech is normal. Skin: Skin is warm and dry and no rashes or lesions are noted. Psychiatric: Cooperative, appropriate mood & affect, normal judgment. (James Hudson) Medical Decision Making <James Hudson - Last Filed: 05/04/16 02:13> <Yousuf Alejandra - Last Filed: 05/04/16 07:53> - Medical Decision Making X-rays reviewed and shows no acute findings. She stable fracture stable hardware in the distal fibula. No swelling appreciated. Sensation and cap refill to the toes intact and less than 2 seconds. Patient is advised follow- up with his orthopedic tomorrow. Advised return if any symptoms increase worsen or for any other concerns. (James Hudson) I saw this patient in conjunction with the physician assistant toddler teacher. I performed independent history and physical exam. Agree with case management. (Yousuf Alejandra) Disposition Time of Disposition: 02:14 <James Hudson - Last Filed: 05/04/16 02:13> <Yousuf Alejandra - Last Filed: 05/04/16 07:53> Clinical Impression: Fall, Knee contusion Disposition: HOME SELF-CARE Condition: Good Instructions: Knee Pain (ED) Additional Instructions: Please follow-up the orthopedic doctor in the next 1-2 days. Please return to the emergency room if any symptoms increase or worsen or for any concerns as discussed. Referrals: Ganesh Mcpherson DO [Primary Care Provider] - 1-2 days Raymundo Hathaway MD [STAFF PHYSICIAN] - 1-2 days
--- NOTE | 2016-05-04 02:19 | XR ---
EXAMINATION TYPE: XR tibia fibula RT DATE OF EXAM: 05/04/2016 2:00 AM COMPARISON: 04/19/2016 HISTORY: Ankle pain TECHNIQUE: 4 views FINDINGS: 4 views are obtained through the cast and show a plate with screws fixing the distal fibula . Knee joint appears intact. There are moderate plantar and Achilles calcaneal spurs. Distal fibula f racture line still visible. IMPRESSION: Distal fibula fracture without change in position compared to last exam. No acute bony ab normality. There is fragmentation of the patella that could relate to an old ununited fracture . No a cute fracture seen at the knee.
[2016-05-04 02:46] VITALS: BP 108/55; RESP 16
== END 2016-05-04 02:46 | disposition home or self-care (01) ==
LOC: EC 01:33
DX: S80.00XA Contusion of unspecified knee, initial encounter (principal); W06.XXXA Fall from bed, initial encounter; I10 Essential (primary) hypertension; E11.9 Type 2 diabetes mellitus without complications; Z79.899 Other long term (current) drug therapy; Z79.84 Long term (current) use of oral hypoglycemic drugs; Z87.891 Personal history of nicotine dependence; Z88.0 Allergy status to penicillin; Z88.1 Allergy status to other antibiotic agents; Z90.13 Acquired absence of bilateral breasts and nipples
CPT/HCPCS: 99283

== ENCOUNTER 2016-08-12 04:51 | Emergency (ER) | payer MEDICARE ==
[2016-08-12 04:56] VITALS: TEMP 97.6
--- NOTE | 2016-08-12 06:07 | XR ---
EXAM:RIGHT HIP, 3 views INDICATION: 66-year-old male with pain. COMPARISON: None. FINDINGS: 3 views of the right hip are obtained. Bony structures are intact. Bone mineralization is within normal limits. No hip dislocation. Joint spaces are preserved. Soft tissues are within normal limits. IMPRESSION: No acute fracture or dislocation identified.
--- NOTE | 2016-08-12 06:18 | XR ---
EXAM: XR Right Tibia and Fibula, 2 Views CLINICAL HISTORY: Reason: Pain TECHNIQUE: Frontal and lateral views of the right tibia and fibula. COMPARISON: No relevant prior studies available. FINDINGS: Bones/joints: No acute fracture is seen. Status post ORIF of distal right fibular fracture, with fracture lucency remaining visible on the lateral view. No evidence of dislocation at the knee or ankle with degenerative changes present at both levels. While the knee is only partially imaged, the patella is not well visualized, and there is ossification anterior to the distal femur that may be a combination of degenerative change and a small in size patella. An ovoid 17 x 8 mm ossification posteriorly on the lateral view may be the fabella or a body within the posterior joint space. Small plantar calcaneal spur along with enthesopathic changes at the Achilles insertion site. There is a small ovoid ossific focus along the posterior margin of the proximal tibial shaft, having a smooth, nonaggressive appearance, perhaps related to prior injury as well. Soft tissues: No radiopaque foreign body. IMPRESSION: 1. Status post distal tibial ORIF, which appears intact, with residual fracture lucency. 2. No acute fracture or dislocation is seen. 3. Additional nonacute findings as above, including as partially imaged about the knee, which could be correlated with any prior exams, or future follow-up exam.
[2016-08-12 06:21] VITALS: PULSE 70
[2016-08-12 07:11] LABS: Basophils % (A) 0 %; CH 30.3; Eosinophils # (A) 0.2 k/uL (0-0.7); Eosinophils % (A) 2 %; HCT 38.8 % (39.0-53.0); HDW 2.58; HGB 12.7 gm/dL (13.0-17.5); Luc # (Auto) 0.19; Luc % (Auto) 2; Lymphocytes # (A) 1.3 k/uL (1.0-4.8); Lymphocytes % (A) 13 %; MCH 31.2 pg (25.0-35.0); MCHC 32.7 g/dL (31.0-37.0); MCV 95.3 fL (80.0-100.0); Mean Platelet Volume 7.3; Monocytes # (A) 0.7 k/uL (0-1.0); Monocytes % (A) 7 %; Neutrophils # (A) 7.8 k/uL (1.3-7.7); Neutrophils % (A) 76 %; RBC 4.08 m/uL (4.30-5.90); RDW 14.2 % (11.5-15.5); WBC 10.3 k/uL (3.8-10.6)
[2016-08-12 07:19] LABS: Partial Thromboplastin Time 27.8 sec (22.0-30.0); Prothrombin Time 10.4 sec (9.0-12.0)
--- NOTE | 2016-08-12 07:24 | ED ---
Fall HPI - General Chief Complaint: Fall Stated Complaint: Fall Time Seen by Provider: 08/12/16 06:25 Source: EMS Mode of arrival: EMS - History of Present Illness Initial Comments: This patient is 66-year-old man who comes in to be evaluated after he had a fall. The patient on arrival is not able to provide much history, and it appears that he may have had an excess of his medication. The patient is able indicate that he is having a bit of headache. His generalized. He is not able to further characterize it. He does deny neck, chest, and back pain MD Complaint: fall -: hour(s) Loss of Consciousness: unsure Prolonged Down Time?: no - Related Data Home Medications Medication Instructions Recorded Confirmed Atorvastatin [Lipitor] 10 mg PO HS 10/08/15 04/19/16 Lisinopril [Zestril] 20 mg PO DAILY 10/08/15 04/19/16 metFORMIN HCL [Glucophage] 500 mg PO AC-BID 10/08/15 04/19/16 DULoxetine HCL [Duloxetine HCl] 30 mg PO HS 03/10/16 04/19/16 DULoxetine HCL [Duloxetine HCl] 60 mg PO DAILY 03/10/16 04/19/16 Magnesium Oxide [Mag-Ox] 400 mg PO DAILY 03/10/16 04/19/16 Diazepam [Valium] 5 mg PO HS 03/24/16 04/19/16 Previous Rx's Medication Instructions Recorded Baclofen [Lioresal] 10 mg PO QID #30 tab 03/15/16 Sennosides-Docusate Sodium 1 tab PO BID #60 tablet 03/15/16 [Senokot-S] HYDROcodone/APAP 10-325MG [[place] 1 - 2 tab PO Q6H PRN #60 tab 03/23/16 10-325] Allergies Allergy/AdvReac Type Severity Reaction Status Date / Time cephalexin monohydrate Allergy Anaphylaxis Verified 03/24/16 15:40 [From Keflex] Penicillins Allergy Anaphylaxis Verified 03/24/16 15:40 Review of Systems ROS Statement: Those systems with pertinent positive or pertinent negative responses have been documented in the HPI. ROS Other: All systems not noted in ROS Statement are negative. Limitations: ROS unobtainable due to patients medical condition Past Medical History Past Medical History: Atrial Fibrillation, Diabetes Mellitus, GERD/Reflux, Hypertension, Osteoarthritis (OA), Pneumonia Additional Past Medical History / Comment(s): 03-10-16 FELL/FX RT FIBULA, VERTIGO History of Any Multi-Drug Resistant Organisms: None Reported Past Surgical History: Back Surgery, Orthopedic Surgery Additional Past Surgical History / Comment(s): Bilateral mastectomy with right sided lymp node removal, rt. knee cap removed, back surgery for herniated disc. , Brain stem surgery for decompression-for dizziness, right ankle ORIF Past Anesthesia/Blood Transfusion Reactions: No Reported Reaction Past Psychological History: No Psychological Hx Reported Smoking Status: Former smoker Past Alcohol Use History: None Reported Additional Past Alcohol Use History / Comment(s): STARTED SMOKING AT AGE 18, SMOKE A PIPE GOES THRU A PACK OF PIPE TOBACCO/DAY quit smoking in 2005 Past Drug Use History: None Reported - Past Family History Father History Unknown: Yes Family Medical History: Congestive Heart Failure (CHF), Coronary Artery Disease (CAD), Hypertension Mother History Unknown: Yes Family Medical History: Hypertension Additional Family Medical History / Comment(s): pulmonary hypertension General Exam Limitations: no limitations General appearance: in no apparent distress, appears intoxicated Head exam: Present: atraumatic, normocephalic, normal inspection Eye exam: Present: normal appearance. Absent: scleral icterus, conjunctival injection ENT exam: Present: normal oropharynx Neck exam: Present: normal inspection, full ROM. Absent: tenderness Respiratory exam: Present: normal lung sounds bilaterally. Absent: respiratory distress, wheezes, rales, rhonchi, stridor, chest wall tenderness Cardiovascular Exam: Present: regular rate, normal rhythm, normal heart sounds. Absent: systolic murmur, diastolic murmur, rubs, gallop GI/Abdominal exam: Present: soft. Absent: distended, tenderness Extremities exam: Present: other (Patient is wondering cast boot to the lower extremity). Absent: pedal edema, calf tenderness Back exam: Present: normal inspection. Absent: tenderness Neurological exam: Present: altered, CN II-XII intact, reflexes normal. Absent : motor sensory deficit Skin exam: Present: warm, dry, intact, normal color. Absent: rash, cyanosis, diaphoretic, erythema, petechiae, pallor, mottled Course Vital Signs 08/12/16 08/12/16 04:52 06:03 Temperature 97.6 F Pulse Rate 71 70 Respiratory 20 16 Rate Blood Pressure 112/57 101/56 O2 Sat by Pulse 94 L 96 Oximetry Medical Decision Making - Lab Data Result diagrams: 08/12/16 06:49 08/12/16 06:49 Lab Results 08/12/16 08/12/16 08/12/16 Range/Units 06:49 06:49 06:49 WBC 10.3 (3.8-10.6) k/uL RBC 4.08 L (4.30-5.90) m/uL Hgb 12.7 L (13.0-17.5) gm/dL Hct 38.8 L (39.0-53.0) % MCV 95.3 (80.0-100.0) fL MCH 31.2 (25.0-35.0) pg MCHC 32.7 (31.0-37.0) g/dL RDW 14.2 (11.5-15.5) % Plt Count 166 (150-450) k/uL Neutrophils % 76 % Lymphocytes % 13 % Monocytes % 7 % Eosinophils % 2 % Basophils % 0 % Neutrophils # 7.8 H (1.3-7.7) k/uL Lymphocytes # 1.3 (1.0-4.8) k/uL Monocytes # 0.7 (0-1.0) k/uL Eosinophils # 0.2 (0-0.7) k/uL Basophils # 0.0 (0-0.2) k/uL PT 10.4 (9.0-12.0) sec INR 1.0 (<1.1) APTT 27.8 (22.0-30.0) sec Sodium 144 (137-145) mmol/L Potassium 5.6 H (3.5-5.1) mmol/L Chloride 102 (98-107) mmol/L Carbon Dioxide 32 H (22-30) mmol/L Anion Gap 10 mmol/L BUN 28 H (9-20) mg/dL Creatinine 1.03 (0.66-1.25) mg/dL Est GFR (MDRD) Af Amer >60 (>60 ml/min/1.73 sqM) Est GFR (MDRD) Non-Af >60 (>60 ml/min/1.73 sqM) Glucose 116 H (74-99) mg/dL Calcium 9.5 (8.4-10.2) mg/dL Total Bilirubin 1.0 (0.2-1.3) mg/dL AST 29 (17-59) U/L ALT 21 (21-72) U/L Alkaline Phosphatase 47 (38-126) U/L Total Protein 7.1 (6.3-8.2) g/dL Albumin 4.2 (3.5-5.0) g/dL - EKG Data -: EKG Interpreted by Co EKG shows normal: sinus rhythm, axis (Normal), intervals (Normal), QRS complexes (Normal), ST-T waves (Normal) Rate: normal (71 bpm) Interpretation: other ([place]) Disposition Clinical Impression: Fall Disposition: HOME SELF-CARE Condition: Fair Instructions: Fall Prevention for Older Adults (ED) Referrals: Ganesh Mcpherson DO [Primary Care Provider] - 1-2 days
--- NOTE | 2016-08-12 07:48 | CT ---
EXAM: CT Head Without Intravenous Contrast CLINICAL HISTORY: Reason: altered mental status TECHNIQUE: Axial computed tomography images of the head/brain without intravenous contrast. CTDI is 58 mGy and DLP is 1145.10 mGy-cm. This CT exam was performed using one or more of the following dose reduction techniques: automated exposure control, adjustment of the mA and/or kV according to patient size, and/or use of iterative reconstruction technique. COMPARISON: 04/18/16 FINDINGS: Postop changes again noted with plate over the right lateral posterior fossa skull defect again noted. No intracranial hemorrhage or mass effect. Clark-white junction preserved. Stable ventricular caliber without hydrocephalus. Sinus disease. There is still prominent opacification of the right maxillary sinus though aeration is improved compared to the prior. There is both chronic appearing sinus opacity along with fluid in the right maxillary sinus which may represent acute sinusitis. More mild sinus opacity elsewhere, example anterior right ethmoid sinus. IMPRESSION: No acute intracranial findings. Sinusitis.
[2016-08-12 08:07] LABS: Anion Gap 10 mmol/L; Blood Urea Nitrogen 28 mg/dL (9-20); Carbon Dioxide 32 mmol/L (22-30); Chloride 102 mmol/L (98-107); Glucose 116 mg/dL (74-99); Potassium 5.6 mmol/L (3.5-5.1); Sodium 144 mmol/L (137-145)
[2016-08-12 08:08] LABS: ALT 21 U/L (21-72); AST 29 U/L (17-59); Alkaline Phosphatase 47 U/L (38-126); Calcium 9.5 mg/dL (8.4-10.2); Non-African American GFR(MDRD) >60 (>60 ml/min/1.73 sqM); Total Protein 7.1 g/dL (6.3-8.2)
[2016-08-12] MEDS ORDERED: SODIUM POLYSTYRENE SULFONATE 15 GM/60 ML BOTTLE PO STA (08:33)
[2016-08-12 08:44] VITALS: BP 109/56; RESP 18
[2016-08-12 08:44] LABS: Amorphous Sediment,Urine Rare /hpf; Appearance,Urine Clear (Clear); Bilirubin,Urine Negative (Negative); Glucose,Urine (UA) Negative (Negative); Ketones,Urine Negative (Negative); Leukocyte Esterase,Urine Moderate (Negative); Mucus,Urine Rare /hpf; Nitrite,Urine Negative (Negative); Particle Count 5297; Protein,Urine Negative (Negative); RBC,Urine <1 /hpf (0-5); Specific Gravity,Urine 1.009 (1.001-1.035); UA Billing (MACRO vs. MICRO) MICRO; Urobilinogen,Urine <2.0 mg/dL (<2.0); WBC,Urine 8 /hpf (0-5)
[2016-08-28 08:33] LABS: Glucose,Whole Blood 108 mg/dL (75-99)
== END 2016-08-12 09:20 | disposition home or self-care (01) ==
LOC: EC 04:51
DX: R51 Headache (principal); E11.9 Type 2 diabetes mellitus without complications; I10 Essential (primary) hypertension; I48.91 Unspecified atrial fibrillation; Z87.891 Personal history of nicotine dependence; Z79.84 Long term (current) use of oral hypoglycemic drugs; Z79.899 Other long term (current) drug therapy; Z88.0 Allergy status to penicillin; Z88.1 Allergy status to other antibiotic agents; W06.XXXA Fall from bed, initial encounter
CPT/HCPCS: 36415; 70450; 73502; 80053; 81001; 85025; 85610; 85730; 93005; 99285

== ENCOUNTER → 2016-08-17 | Outpatient (CLI) | payer MEDICARE ==
--- NOTE | 2016-08-17 10:22 | MR ---
MR lumbar spine wo/w con Low back pain MultiHance Multiplanar, multiecho imaging of the lumbar spine was obtained without contrast on a 3 [place] magnet. REFERENCE: Report but no images from previous MRI dated 02/08/2016. FINDINGS: Paraspinal soft tissues are normal. Vertebral body height is maintained. There is minimal retrograde listhesis of L2 on L3. Alignment is otherwise maintained. Cord signal is maintained. The conus ends normally at the level of the mid body of L1. At T12-L1, there is mild hypertrophic spondylosis present anteriorly. There is no significant brittaney sive discopathy. There is mild capsulitis within the facets. The intervertebral foramina are well angel ntained. At L1-2, there is mild hypertrophic spondylosis noted anteriorly. There is tiny left paracentral disc displacement mildly deforming the thecal sac without definite neural compression. Intervertebral for rocael appear maintained. There is mild hypertrophic change and capsulitis within the facets. At L2-3, there is mild hypertrophic spondylosis present anteriorly. There is mild disc space loss and disc desiccation. There is right-sided intervertebral foraminal narrowing likely impinging upon the exiting L2 nerve root. There is a mild, diffuse disc displacement. There is hypertrophic changes and capsulitis within the facets. There is minimal trefoiling of the thecal sac. At L3-4, is mild disc space loss and disc desiccation. Intervertebral foramina are reasonably well-ma intained. There is a diffuse disc displacement. There is hypertrophic change and capsulitis within th e facets. There is minimal trefoiling of the thecal sac. At L4-5, intervertebral foramina are reasonably well-maintained. There is a diffuse disc displacement . There are moderate hypertrophic changes in the facets. At L5-S1, the intervertebral foramina are well maintained. There is no significant compressive discop athy. There are hypertrophic changes and capsulitis within the facets. IMPRESSION: 1. DIFFUSE DEGENERATIVE DISC DISEASE, HYPERTROPHIC SPONDYLOSIS AND FACET ARTHROPATHY. 2. RIGHT-SIDED INTERVERTEBRAL FORAMINAL NARROWING, L2-3 WITH IMPINGEMENT UPON THE EXITING L2 NERVE RO OT.
== END | disposition home or self-care (01) ==
LOC: RADMRIMAIN 07:56
PROVIDERS: ATTEND Physical Medicine & Rehabilitation
DX: M99.73 Connective tissue and disc stenosis of intervertebral foramina of lumbar region (principal); M51.16 Intervertebral disc disorders with radiculopathy, lumbar region; M47.26 Other spondylosis with radiculopathy, lumbar region; M46.06 Spinal enthesopathy, lumbar region; E11.9 Type 2 diabetes mellitus without complications; Z98.890 Other specified postprocedural states
CPT/HCPCS: 72158; A9577

== ENCOUNTER → 2016-09-25 | Outpatient (CLI) | payer MEDICARE ==
--- NOTE | 2016-09-25 14:59 | MR ---
EXAMINATION TYPE: MR brain wo/w con DATE OF EXAM: 09/25/2016 COMPARISON: CT brain 08/12/2016 HISTORY: Dizziness, giddiness, disequilbrium CONTRAST: Performed utilizing 20 mL intravenous MultiHance gadolinium contrast. TECHNIQUE: Multiplanar, multiecho imaging on a 3.0 Amparo magnet is performed through the brain. Stud y is performed within 24 hours of arrival to the hospital. The craniovertebral junction is normal. The pituitary is normal. Diffusion-weighted imaging is performed. No abnormal hyperintensity is present to suggest an acute i ntracranial infarct or acute ischemic change. Signal within the brain is essentially normal. There is a punctate hyperintensity within the subcorti shimon white matter of the left frontal lobe measuring 0.5 cm. Series 501 image 16. Couple of additional punctate hyperintense lobes. These do not are proportional patient age. Craniovertebral junctions are normal. Internal auditory canals appear normal without expansion or ero uli. Petrous ridges appear normal. Mastoid air cells are clear. No abnormal enhancement is evident. Ventricles and sulci are appropriate for the patient age. There is some mucosal thickening within the right maxillary sinus. IMPRESSIONS: 1. Pre and postcontrast MRI brain appears within normal limits. Couple of punctate hyperintensities a re nonspecific, not out of proportion to the patient age, and could be related to microvascular ische becka change.
== END | disposition home or self-care (01) ==
LOC: RADMRIMAIN 13:01
PROVIDERS: ATTEND Neurological Surgery
DX: R93.0 Abnormal findings on diagnostic imaging of skull and head, not elsewhere classified (principal); R42 Dizziness and giddiness; E87.8 Other disorders of electrolyte and fluid balance, not elsewhere classified
CPT/HCPCS: 70553; A9577

== ENCOUNTER → 2016-11-09 | Outpatient (CLI) | payer MEDICARE ==
--- NOTE | 2016-11-14 07:13 | ENG ---
VNG REPORT VNG INDICATIONS: A 66-year-old male with dizziness of different types onset 4 months ago, gradual, currently staying the same and is constant. It can occur worse with positional changes such as rolling the body left or right, going from a lying to a sitting position or bending over or head down position or moving the head. No difficulties with hearing reported and no tinnitus or pressure in the ear. VNG FINDINGS: Saccades show intact peak velocities and accuracies and borderline latencies. Gaze with fixation shows no nystagmus in any of the directions of gaze including centrally with vision denied. Tracking shows no significant breakups. Optokinetic nystagmus shows no significant asymmetry at faster or slower speeds. Static position testing in 6 different positions with eyes open and also with vision denied shows no nystagmus in any positions. Carlos-Hallpike maneuvers are not performed due to mobility issues. Caloric testing shows a 3% unilateral right caloric weakness, which is within normal limits. Directional preponderance is 3% right ear. Fixation index is negative. IMPRESSIONS: Unremarkable VNG study. No evidence for vestibulopathy. Carlos- Hallpike maneuvers were unable to be performed due to mobility issues and could not preclude benign positional vertigo. MTDD
== END | disposition home or self-care (01) ==
LOC: NEUROMAIN 10-18 14:05
PROVIDERS: ATTEND Neurological Surgery
DX: R42 Dizziness and giddiness (principal)
CPT/HCPCS: 92537; 92540

== ENCOUNTER 2017-04-03 15:36 | Emergency (ER) | payer MEDICARE, OTHER ==
[2017-04-03 15:47] VITALS: RESP 18; TEMP 98.6
[2017-04-03] MEDS ORDERED: SODIUM CHLORIDE 0.9% 500 ML IV STA (15:47)
[2017-04-03] MEDS ORDERED: SODIUM CHLORIDE 0.9% 1,000 ML IV STA (15:47)
--- NOTE | 2017-04-03 16:06 | ED ---
General Adult HPI - General Chief complaint: Altered Mental Status Stated complaint: Poss.stroke Time Seen by Provider: 04/03/17 15:44 Source: EMS, RN notes reviewed, old records reviewed Mode of arrival: EMS Limitations: altered mental status - History of Present Illness Initial comments: This is a 66-year-old female ER for evaluation of altered [employer]. Patient is positive recent medical history of brain surgery. Patient was found by family earlier today and not acting appropriately. Patient's 4 started at this time, history of A. fib EMS the patient's transfer paperwork - Related Data Home Medications Medication Instructions Recorded Confirmed Atorvastatin [Lipitor] 10 mg PO HS 10/08/15 04/03/17 Lisinopril [Zestril] 20 mg PO DAILY 10/08/15 04/03/17 metFORMIN HCL [Glucophage] 500 mg PO BID@0900,1700 10/08/15 04/03/17 DULoxetine HCL [Duloxetine HCl] 30 mg PO HS 03/10/16 04/03/17 DULoxetine HCL [Duloxetine HCl] 60 mg PO DAILY 03/10/16 04/03/17 Diazepam [Valium] 5 mg PO HS 03/24/16 04/03/17 Amitriptyline HCl [Elavil] 25 mg PO DAILY@1700 04/03/17 04/03/17 Aspirin EC [Ecotrin Low Dose] 81 mg PO DAILY 04/03/17 04/03/17 Baclofen [Lioresal] 40 mg PO DAILY@0600 04/03/17 04/03/17 Baclofen [Lioresal] 50 mg PO HS 04/03/17 04/03/17 Butalb/Acetaminophen/Caffeine 1 cap PO Q6H PRN 04/03/17 04/03/17 [Fioricet 50-300-40 mg Capsule] Diazepam [Valium] 5 mg PO Q6H PRN 04/03/17 04/03/17 HYDROcodone/APAP 10-325MG [[place] 1 tab PO Q8H PRN 04/03/17 04/03/17 10-325] Topiramate [Topamax] 100 mg PO Q12H 04/03/17 04/03/17 acetaZOLAMIDE [Diamox Sequels] 500 mg PO BID@0600,1400 04/03/17 04/03/17 Allergies Allergy/AdvReac Type Severity Reaction Status Date / Time cephalexin monohydrate Allergy Anaphylaxis Verified 04/03/17 16:35 [From Keflex] Penicillins Allergy Anaphylaxis Verified 04/03/17 16:35 Review of Systems ROS Statement: Those systems with pertinent positive or pertinent negative responses have been documented in the HPI. ROS Other: All systems not noted in ROS Statement are negative. Past Medical History Past Medical History: Atrial Fibrillation, Diabetes Mellitus, GERD/Reflux, Hypertension, Osteoarthritis (OA), Pneumonia Additional Past Medical History / Comment(s): 03-10-16 FELL/FX RT FIBULA, VERTIGO History of Any Multi-Drug Resistant Organisms: None Reported Past Surgical History: Back Surgery, Orthopedic Surgery Additional Past Surgical History / Comment(s): Bilateral mastectomy with right sided lymp node removal, rt. knee cap removed, back surgery for herniated disc. , Brain stem surgery for decompression-for dizziness, right ankle ORIF Past Anesthesia/Blood Transfusion Reactions: No Reported Reaction Past Psychological History: No Psychological Hx Reported Smoking Status: Former smoker Past Alcohol Use History: None Reported Past Drug Use History: None Reported - Past Family History Father History Unknown: Yes Family Medical History: Congestive Heart Failure (CHF), Coronary Artery Disease (CAD), Hypertension Mother History Unknown: Yes Family Medical History: Hypertension Additional Family Medical History / Comment(s): pulmonary hypertension General Exam Limitations: altered mental status General appearance: alert, in no apparent distress Head exam: Present: atraumatic, normocephalic, normal inspection Eye exam: Present: normal appearance, PERRL, EOMI. Absent: scleral icterus, conjunctival injection, periorbital swelling ENT exam: Present: normal exam, mucous membranes moist Neck exam: Present: normal inspection. Absent: tenderness, meningismus, lymphadenopathy Respiratory exam: Present: normal lung sounds bilaterally. Absent: respiratory distress, wheezes, rales, rhonchi, stridor Cardiovascular Exam: Present: regular rate, normal rhythm, normal heart sounds. Absent: systolic murmur, diastolic murmur, rubs, gallop, clicks GI/Abdominal exam: Present: soft, normal bowel sounds. Absent: distended, tenderness, guarding, rebound, rigid Extremities exam: Present: normal inspection, full ROM, normal capillary refill. Absent: tenderness, pedal edema, joint swelling, calf tenderness Back exam: Present: normal inspection Neurological exam: Present: alert, oriented X3, CN II-XII intact Psychiatric exam: Present: normal affect, normal mood Skin exam: Present: warm, dry, intact, normal color. Absent: rash Course Vital Signs 04/03/17 04/03/17 04/03/17 15:39 16:45 18:08 Temperature 98.6 F Pulse Rate 73 74 71 Respiratory 18 18 18 Rate Blood Pressure 118/74 96/70 112/62 O2 Sat by Pulse 99 99 99 Oximetry EKG Findings - EKG Comments: EKG Findings:: EKG shows sinus rhythm rate of 75, [place] 134, QRS 90, QTc 446 Medical Decision Making - Medical Decision Making 66 to ER for evaluation of altered mental status, spoke with patient's neurosurgery community relations liaison, at this point no reason for transfer [facility]. Patient be transferred back to nursing care facility, patient asking to be discharged home, patient acting appropriately, we do not know patient's baseline unable to make decision on patient's care or change in mental status - Lab Data Result diagrams: 04/03/17 15:50 04/03/17 15:50 Lab Results 04/03/17 04/03/17 04/03/17 Range/Units 15:50 15:50 15:50 WBC 14.7 H (3.8-10.6) k/uL RBC 4.46 (4.30-5.90) m/uL Hgb 13.6 (13.0-17.5) gm/dL Hct 42.6 (39.0-53.0) % MCV 95.4 (80.0-100.0) fL MCH 30.5 (25.0-35.0) pg MCHC 32.0 (31.0-37.0) g/dL RDW 14.6 (11.5-15.5) % Plt Count 253 (150-450) k/uL Neutrophils % 82 % Lymphocytes % 11 % Monocytes % 4 % Eosinophils % 2 % Basophils % 0 % Neutrophils # 12.0 H (1.3-7.7) k/uL Lymphocytes # 1.7 (1.0-4.8) k/uL Monocytes # 0.6 (0-1.0) k/uL Eosinophils # 0.3 (0-0.7) k/uL Basophils # 0.1 (0-0.2) k/uL PT (9.0-12.0) sec INR (<1.2) APTT (22.0-30.0) sec Sodium 143 (137-145) mmol/L Potassium 4.3 (3.5-5.1) mmol/L Chloride 110 H (98-107) mmol/L Carbon Dioxide 21 L (22-30) mmol/L Anion Gap 12 mmol/L BUN 23 H (9-20) mg/dL Creatinine 1.40 H (0.66-1.25) mg/dL Est GFR (MDRD) Af Amer >60 (>60 ml/min/1.73 sqM) Est GFR (MDRD) Non-Af 51 (>60 ml/min/1.73 sqM) Glucose 153 H (74-99) mg/dL Calcium 10.1 (8.4-10.2) mg/dL Phosphorus 3.2 (2.5-4.5) mg/dL Magnesium 1.7 (1.6-2.3) mg/dL Total Bilirubin 1.0 (0.2-1.3) mg/dL AST 21 (17-59) U/L ALT 29 (21-72) U/L Alkaline Phosphatase 58 (38-126) U/L Total Creatine Kinase 32 L (55-170) U/L CK-MB (CK-2) 0.8 (0.0-2.4) ng/mL CK-MB (CK-2) Rel Index 2.5 Troponin I <0.012 (0.000-0.034) ng/mL Total Protein 7.8 (6.3-8.2) g/dL Albumin 4.6 (3.5-5.0) g/dL Urine Color Urine Appearance (Clear) Urine pH (5.0-8.0) Ur Specific Goode (1.001-1.035) Urine Protein (Negative) Urine Glucose (UA) (Negative) Urine Ketones (Negative) Urine Blood (Negative) Urine Nitrite (Negative) Urine Bilirubin (Negative) Urine Urobilinogen (<2.0) mg/dL Ur Leukocyte Esterase (Negative) Influenza Type A RNA (Not Detectd) Influenza Type B (PCR) (Not Detectd) 04/03/17 04/03/17 04/03/17 Range/Units 15:50 17:06 18:01 WBC (3.8-10.6) k/uL RBC (4.30-5.90) m/uL Hgb (13.0-17.5) gm/dL Hct (39.0-53.0) % MCV (80.0-100.0) fL MCH (25.0-35.0) pg MCHC (31.0-37.0) g/dL RDW (11.5-15.5) % Plt Count (150-450) k/uL Neutrophils % % Lymphocytes % % Monocytes % % Eosinophils % % Basophils % % Neutrophils # (1.3-7.7) k/uL Lymphocytes # (1.0-4.8) k/uL Monocytes # (0-1.0) k/uL Eosinophils # (0-0.7) k/uL Basophils # (0-0.2) k/uL PT 10.0 (9.0-12.0) sec INR 1.0 (<1.2) APTT 25.6 (22.0-30.0) sec Sodium (137-145) mmol/L Potassium (3.5-5.1) mmol/L Chloride (98-107) mmol/L Carbon Dioxide (22-30) mmol/L Anion Gap mmol/L BUN (9-20) mg/dL Creatinine (0.66-1.25) mg/dL Est GFR (MDRD) Af Amer (>60 ml/min/1.73 sqM) Est GFR (MDRD) Non-Af (>60 ml/min/1.73 sqM) Glucose (74-99) mg/dL Calcium (8.4-10.2) mg/dL Phosphorus (2.5-4.5) mg/dL Magnesium (1.6-2.3) mg/dL Total Bilirubin (0.2-1.3) mg/dL AST (17-59) U/L ALT (21-72) U/L Alkaline Phosphatase (38-126) U/L Total Creatine Kinase (55-170) U/L CK-MB (CK-2) (0.0-2.4) ng/mL CK-MB (CK-2) Rel Index Troponin I (0.000-0.034) ng/mL Total Protein (6.3-8.2) g/dL Albumin (3.5-5.0) g/dL Urine Color Yellow Urine Appearance Clear (Clear) Urine pH 6.5 (5.0-8.0) Ur Specific Goode 1.015 (1.001-1.035) Urine Protein Negative (Negative) Urine Glucose (UA) Negative (Negative) Urine Ketones Negative (Negative) Urine Blood Negative (Negative) Urine Nitrite Negative (Negative) Urine Bilirubin Negative (Negative) Urine Urobilinogen 2.0 (<2.0) mg/dL Ur Leukocyte Esterase Negative (Negative) Influenza Type A RNA Not Detected (Not Detectd) Influenza Type B (PCR) Not Detected (Not Detectd) - Radiology Data Radiology results: report reviewed (CT brain is negative), image reviewed Disposition Clinical Impression: Altered mental status, Vertigo Disposition: HOME SELF-CARE Condition: Fair Referrals: Christine Rascon MD [Primary Care Provider] - 1-2 days - Out of Hospital Transfer - Req. Specs Out of Hospital Transfer - Requested Specifics: Other Emergency Center ([facility] )
[2017-04-03 16:07] LABS: Basophils # (A) 0.1 k/uL (0-0.2); Basophils % (A) 0 %; Eosinophils # (A) 0.3 k/uL (0-0.7); Eosinophils % (A) 2 %; HCT 42.6 % (39.0-53.0); HGB 13.6 gm/dL (13.0-17.5); Lymphocytes # (A) 1.7 k/uL (1.0-4.8); Lymphocytes % (A) 11 %; MCH 30.5 pg (25.0-35.0); MCV 95.4 fL (80.0-100.0); Mean Platelet Volume 7.5; Monocytes # (A) 0.6 k/uL (0-1.0); Monocytes % (A) 4 %; Neutrophils % (A) 82 %; Platelet Count 253 k/uL (150-450); RBC 4.46 m/uL (4.30-5.90); RDW 14.6 % (11.5-15.5); WBC 14.7 k/uL (3.8-10.6)
[2017-04-03 16:16] LABS: ALT 29 U/L (21-72); AST 21 U/L (17-59); Albumin 4.6 g/dL (3.5-5.0); Alkaline Phosphatase 58 U/L (38-126); Anion Gap 12 mmol/L; Blood Urea Nitrogen 23 mg/dL (9-20); Calcium 10.1 mg/dL (8.4-10.2); Carbon Dioxide 21 mmol/L (22-30); Chloride 110 mmol/L (98-107); Glucose 153 mg/dL (74-99); Magnesium 1.7 mg/dL (1.6-2.3); Phosphorus 3.2 mg/dL (2.5-4.5); Potassium 4.3 mmol/L (3.5-5.1); Sodium 143 mmol/L (137-145); Total Protein 7.8 g/dL (6.3-8.2)
--- NOTE | 2017-04-03 16:21 | XR ---
EXAMINATION TYPE: XR chest 2V DATE OF EXAM: 04/03/2017 COMPARISON: Prior chest x-ray 04/18/2016 HISTORY: Weakness, abnormal chest x-ray TECHNIQUE: Frontal and lateral views of the chest are obtained. FINDINGS: Heart is stable. Patient is rotated. No evident airspace disease, pneumothorax, or pleural effusion. Bandlike area of increased density at the left costophrenic angles compatible with scarrin g and stable. There are overlying cardiac leads. Thoracic spondylosis is present. IMPRESSION: Stable exam, no acute abnormality.
[2017-04-03 16:22] LABS: Partial Thromboplastin Time 25.6 sec (22.0-30.0)
--- NOTE | 2017-04-03 16:22 | CT ---
EXAMINATION TYPE: CT brain wo con DATE OF EXAM: 04/03/2017 COMPARISON: 08/12/2016 INDICATION: Weakness and confusion. DLP: 957.6 mGycm, Automated exposure control for dose reduction was used. CONTRAST: None CT of the brain is performed utilizing 3 mm thick sections through the posterior fossa and 3 mm thick sections through the remaining calvarium. Study is performed within 24 hours of arrival to the hosp ital. No abnormal hyperdensity is present to suggest an acute intracranial hemorrhage. No mass lesion is evident. No acute infarcts are evident. Ventricles and sulci are appropriate for the patient age. Paranasal sinuses and mastoid air cells within the [id number] are clear. There is been a recent right occipital craniotomy. Air within the postsurgical space is evident. Surg ical skin abhilash are evident. This appears to extend adjacent to the sigmoid sinus. No hemorrhage is identified. No mass effect is evident. IMPRESSIONS: 1. Recent postsurgical right occipital craniotomy. 2. No acute intracranial process to account for patient's symptoms.
[2017-04-03 16:26] LABS: Creatine Kinase 32 U/L (55-170)
[2017-04-03 16:39] LABS: Creatine Kinase MB 0.8 ng/mL (0.0-2.4); Troponin I <0.012 ng/mL (0.000-0.034)
[2017-04-03 17:21] LABS: Appearance,Urine Clear (Clear); Bilirubin,Urine Negative (Negative); Blood,Urine Negative (Negative); Color,Urine Yellow; Glucose,Urine (UA) Negative (Negative); Ketones,Urine Negative (Negative); Leukocyte Esterase,Urine Negative (Negative); Nitrite,Urine Negative (Negative); PH, Urine 6.5 (5.0-8.0); Protein,Urine Negative (Negative); Specific Gravity,Urine 1.015 (1.001-1.035)
[2017-04-03] MEDS ORDERED: SODIUM CHLORIDE 0.9% 1,000 ML IV SCH (18:45)
[2017-04-03 21:22] VITALS: BP 135/79; PULSE 65
== END 2017-04-03 22:30 | disposition home or self-care (01) ==
LOC: EC 15:36
DX: R41.82 Altered mental status, unspecified (principal); R42 Dizziness and giddiness; I48.91 Unspecified atrial fibrillation; K21.9 Gastro-esophageal reflux disease without esophagitis; E11.9 Type 2 diabetes mellitus without complications; I10 Essential (primary) hypertension; Z87.891 Personal history of nicotine dependence; Z79.84 Long term (current) use of oral hypoglycemic drugs; Z79.82 Long term (current) use of aspirin; Z79.899 Other long term (current) drug therapy; Z88.0 Allergy status to penicillin; Z88.1 Allergy status to other antibiotic agents; Z90.13 Acquired absence of bilateral breasts and nipples; Z98.890 Other specified postprocedural states
CPT/HCPCS: 36415; 51702; 70450; 71046; 80053; 81003; 82550; 82553; 83735; 84100; 84484; 85025; 85610; 85730; 87086; 87502; 93005; 96360; 96361; 99285

== ENCOUNTER 2017-04-04 17:55 | Emergency (ER) | payer MEDICARE ==
[2017-04-04 18:06] VITALS: TEMP 97.2
--- NOTE | 2017-04-04 19:17 | ED ---
General Adult HPI - General Chief complaint: Altered Mental Status Stated complaint: post op complications Time Seen by Provider: 04/04/17 18:03 Source: patient, EMS, RN notes reviewed, old records reviewed Mode of arrival: EMS Limitations: altered mental status, physical limitation - History of Present Illness Initial comments: This is a 66-year-old male to the ER with postoperative surgery. Patient at this point has no complaints with family family doctor at a clinic For Further Evaluation - Related Data Home Medications Medication Instructions Recorded Confirmed Atorvastatin [Lipitor] 10 mg PO HS 10/08/15 04/04/17 Lisinopril [Zestril] 20 mg PO DAILY 10/08/15 04/04/17 metFORMIN HCL [Glucophage] 500 mg PO BID@0900,1700 10/08/15 04/04/17 DULoxetine HCL [Duloxetine HCl] 30 mg PO HS 03/10/16 04/04/17 DULoxetine HCL [Duloxetine HCl] 60 mg PO DAILY 03/10/16 04/04/17 Diazepam [Valium] 5 mg PO HS 03/24/16 04/04/17 Amitriptyline HCl [Elavil] 25 mg PO DAILY@1700 04/03/17 04/04/17 Aspirin EC [Ecotrin Low Dose] 81 mg PO DAILY 04/03/17 04/04/17 Baclofen [Lioresal] 40 mg PO DAILY@0600 04/03/17 04/04/17 Baclofen [Lioresal] 50 mg PO HS 04/03/17 04/04/17 Butalb/Acetaminophen/Caffeine 1 cap PO Q6H PRN 04/03/17 04/04/17 [Fioricet 50-300-40 mg Capsule] Diazepam [Valium] 5 mg PO Q6H PRN 04/03/17 04/04/17 HYDROcodone/APAP 10-325MG [[place] 1 tab PO Q8H PRN 04/03/17 04/04/17 10-325] Topiramate [Topamax] 100 mg PO Q12H 04/03/17 04/04/17 acetaZOLAMIDE [Diamox Sequels] 500 mg PO BID@0600,1400 04/03/17 04/04/17 Triamcinolone 0.1% Cream [Kenalog] 1 applicatio TOPICAL BID 04/04/17 04/04/17 Allergies Allergy/AdvReac Type Severity Reaction Status Date / Time cephalexin monohydrate Allergy Anaphylaxis Verified 04/04/17 18:43 [From Keflex] Cephalosporins Allergy Unknown Verified 04/04/17 18:43 Penicillins Allergy Anaphylaxis Verified 04/04/17 18:43 Review of Systems ROS Statement: Those systems with pertinent positive or pertinent negative responses have been documented in the HPI. ROS Other: All systems not noted in ROS Statement are negative. Past Medical History Past Medical History: Atrial Fibrillation, Diabetes Mellitus, GERD/Reflux, Hypertension, Osteoarthritis (OA), Pneumonia Additional Past Medical History / Comment(s): 03-10-16 FELL/FX RT FIBULA, VERTIGO History of Any Multi-Drug Resistant Organisms: None Reported Past Surgical History: Back Surgery, Orthopedic Surgery Additional Past Surgical History / Comment(s): Bilateral mastectomy with right sided lymp node removal, rt. knee cap removed, back surgery for herniated disc. , Brain stem surgery for decompression-for dizziness, right ankle ORIF Past Anesthesia/Blood Transfusion Reactions: No Reported Reaction Past Psychological History: No Psychological Hx Reported Smoking Status: Former smoker Past Alcohol Use History: None Reported Past Drug Use History: None Reported - Past Family History Father History Unknown: Yes Family Medical History: Congestive Heart Failure (CHF), Coronary Artery Disease (CAD), Hypertension Mother History Unknown: Yes Family Medical History: Hypertension Additional Family Medical History / Comment(s): pulmonary hypertension General Exam Limitations: altered mental status, physical limitation General appearance: alert, in no apparent distress Head exam: Present: atraumatic, normocephalic, normal inspection Eye exam: Present: normal appearance, PERRL, EOMI. Absent: scleral icterus, conjunctival injection, periorbital swelling ENT exam: Present: normal exam, mucous membranes moist Neck exam: Present: normal inspection. Absent: tenderness, meningismus, lymphadenopathy Respiratory exam: Present: normal lung sounds bilaterally. Absent: respiratory distress, wheezes, rales, rhonchi, stridor Cardiovascular Exam: Present: regular rate, normal rhythm, normal heart sounds. Absent: systolic murmur, diastolic murmur, rubs, gallop, clicks GI/Abdominal exam: Present: soft, normal bowel sounds. Absent: distended, tenderness, guarding, rebound, rigid Extremities exam: Present: normal inspection, full ROM, normal capillary refill. Absent: tenderness, pedal edema, joint swelling, calf tenderness Back exam: Present: normal inspection Neurological exam: Present: alert, oriented X3, CN II-XII intact Psychiatric exam: Present: normal affect, normal mood Skin exam: Present: warm, dry, intact, normal color. Absent: rash Course Vital Signs 04/04/17 17:58 Temperature 97.2 F L Pulse Rate 80 Respiratory 18 Rate Blood Pressure 140/66 O2 Sat by Pulse 96 Oximetry - Reevaluation(s) Reevaluation #1: 04/04/17 19:[address] Rascon Reevaluation #2: 04/04/17 19:16 Spoke with on-call neurosurgeon, abhilash are MRI compatible Reevaluation #3: 04/04/17 19:16 Patient is scheduled for inpatient MRI Medical Decision Making - Medical Decision Making 66 male the ER for evaluation did speak with patient's semiconductors wafer breaker Dr. Yen neurosurgery, he states there is nothing to do about thrombus, no reason for inpatient hospitalization, Apsley no anticoagulation, patient will follow up on an outpatient basis - Lab Data Result diagrams: 04/04/17 19:10 04/04/17 19:10 Lab Results 04/04/17 04/04/17 Range/Units 19:10 19:10 WBC 12.2 H (3.8-10.6) k/uL RBC 4.37 (4.30-5.90) m/uL Hgb 13.3 (13.0-17.5) gm/dL Hct 40.8 (39.0-53.0) % MCV 93.3 (80.0-100.0) fL MCH 30.4 (25.0-35.0) pg MCHC 32.5 (31.0-37.0) g/dL RDW 13.5 (11.5-15.5) % Plt Count 276 (150-450) k/uL Neutrophils % 70 % Lymphocytes % 22 % Monocytes % 4 % Eosinophils % 2 % Basophils % 0 % Neutrophils # 8.6 H (1.3-7.7) k/uL Lymphocytes # 2.7 (1.0-4.8) k/uL Monocytes # 0.5 (0-1.0) k/uL Eosinophils # 0.3 (0-0.7) k/uL Basophils # 0.0 (0-0.2) k/uL Sodium 144 (137-145) mmol/L Potassium 3.7 (3.5-5.1) mmol/L Chloride 108 H (98-107) mmol/L Carbon Dioxide 20 L (22-30) mmol/L Anion Gap 16 mmol/L BUN 24 H (9-20) mg/dL Creatinine 1.26 H (0.66-1.25) mg/dL Est GFR (MDRD) Af Amer >60 (>60 ml/min/1.73 sqM) Est GFR (MDRD) Non-Af 57 (>60 ml/min/1.73 sqM) Glucose 127 H (74-99) mg/dL Calcium 9.9 (8.4-10.2) mg/dL Total Bilirubin 0.6 (0.2-1.3) mg/dL AST 16 L (17-59) U/L ALT 29 (21-72) U/L Alkaline Phosphatase 60 (38-126) U/L Total Protein 7.5 (6.3-8.2) g/dL Albumin 4.5 (3.5-5.0) g/dL - Radiology Data Radiology results: report reviewed (MR brain shows thrombus in the right IJ, sinus,), image reviewed Disposition Clinical Impression: History of recent neurosurgical procedure, Altered mental status Disposition: HOME SELF-CARE Condition: Good Instructions: Altered Mental Status (ED) Referrals: Christine Rascon MD [Primary Care Provider] - 1-2 days
[2017-04-04 19:21] LABS: Basophils % (A) 0 %; Eosinophils # (A) 0.3 k/uL (0-0.7); Eosinophils % (A) 2 %; HCT 40.8 % (39.0-53.0); HGB 13.3 gm/dL (13.0-17.5); Lymphocytes # (A) 2.7 k/uL (1.0-4.8); Lymphocytes % (A) 22 %; MCH 30.4 pg (25.0-35.0); MCHC 32.5 g/dL (31.0-37.0); MCV 93.3 fL (80.0-100.0); Mean Platelet Volume 6.7; Monocytes # (A) 0.5 k/uL (0-1.0); Monocytes % (A) 4 %; Neutrophils # (A) 8.6 k/uL (1.3-7.7); Neutrophils % (A) 70 %; Platelet Count 276 k/uL (150-450); RBC 4.37 m/uL (4.30-5.90); RDW 13.5 % (11.5-15.5); WBC 12.2 k/uL (3.8-10.6)
[2017-04-04 19:35] LABS: ALT 29 U/L (21-72); AST 16 U/L (17-59); Albumin 4.5 g/dL (3.5-5.0); Alkaline Phosphatase 60 U/L (38-126); Anion Gap 16 mmol/L; Blood Urea Nitrogen 24 mg/dL (9-20); Calcium 9.9 mg/dL (8.4-10.2); Carbon Dioxide 20 mmol/L (22-30); Chloride 108 mmol/L (98-107); Glucose 127 mg/dL (74-99); Potassium 3.7 mmol/L (3.5-5.1); Sodium 144 mmol/L (137-145); Total Bilirubin 0.6 mg/dL (0.2-1.3); Total Protein 7.5 g/dL (6.3-8.2)
--- NOTE | 2017-04-04 20:53 | MR ---
EXAMINATION TYPE: MR brain wo/w con DATE OF EXAM: 04/04/2017 COMPARISON: CT 04/03/2017 and MRI 09/25/2016 HISTORY: Weakness and confusion, Recent Craniotomy 03/21/2017 Gadavist 13ml TECHNIQUE: Multiplanar, multisequence images of the brain and brainstem is performed without and with IV contrast, utilizing 13 mL intravenous Gadavist . FINDINGS: Right occipital postsurgical change appreciated, reportedly corrective surgery for vertigo. There are near-occlusive filling defects contiguously involving the uppermost right jugular vein, rig ht sigmoid sinus, and right transverse sinus. These filling defects are on all sequences and are cons istent with near occlusive thrombus. Diffusion weighted images demonstrate no evidence of a recent infarct or other diffusion abnormality. The remainder of the intra-axial and extra-axial compartment evaluation is negative, and there are no other vascular findings. Post contrast images demonstrate no abnormal intra-axial enhancement. The visualized paranasal sinuses, middle ear cavities, and mastoid sinus air cells are clear. The orb its are unremarkable.. 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 Results discussed with ordering physician in order to ensure intact communications.
[2017-04-04] MEDS ORDERED: MORPHINE SULFATE 2 MG/ML SYRINGE IVP ONE (22:03)
[2017-04-04 22:43] VITALS: BP 142/75; PULSE 78; RESP 20
== END 2017-04-04 22:52 | disposition home or self-care (01) ==
LOC: EC 17:55
DX: R41.82 Altered mental status, unspecified (principal); I48.91 Unspecified atrial fibrillation; E11.9 Type 2 diabetes mellitus without complications; K21.9 Gastro-esophageal reflux disease without esophagitis; I10 Essential (primary) hypertension; Z87.891 Personal history of nicotine dependence; Z98.890 Other specified postprocedural states; Z79.52 Long term (current) use of systemic steroids; Z79.82 Long term (current) use of aspirin; Z79.84 Long term (current) use of oral hypoglycemic drugs; Z79.899 Other long term (current) drug therapy; Z88.0 Allergy status to penicillin; Z88.1 Allergy status to other antibiotic agents
CPT/HCPCS: 36415; 80053; 85025; 70553; 99285; 96374; J2270; A9581

== ENCOUNTER 2017-04-05 13:21 | Emergency (ER) | payer MEDICARE ==
[2017-04-05 13:32] VITALS: TEMP 97.6
--- NOTE | 2017-04-05 14:45 | ED ---
Fall HPI - General Chief Complaint: Neuro Symptoms/Deficit Stated Complaint: NEURO Time Seen by Provider: 04/05/17 14:15 Source: patient, family, EMS Mode of arrival: EMS Limitations: altered mental status - History of Present Illness Initial Comments: This patient is a 66-year-old man brought by ambulance to be evaluated after he reportedly had a fall at his long-term care facility. The patient is not able to give much history due to what appears to be delirium. The patient's ex- and his granddaughter are at the bedside. The patient's granddaughter states that she received a call today at approximately 12:49 PM, from the longterm stating that the patient had had a fall and that an ambulance was there to take him to the hospital. From the incoming transfer paperwork there is a question of whether the patient had syncopal episode prior to the fall. There is also mention of "involuntary movements" by the patient but there is no mention of francoise seizure activity. When asked about pain or dyspnea, the patient is denying these symptoms. He is at times able to answer very directed questions such as to his physician is, and he is able to answer correctly Dr. Ferraro. At other times, when questioned, the patient repetitively answers previous questions. The patient's recent medical history is notable for having had a right sided retromastoid craniectomy, with microvascular decompression. This was performed on March 20 to treat the patient for chronic vertigo. He reportedly had a similar procedure 8 or 9 years previously in [place] that had worked to relieve his symptoms for number of years but they did recur. The patient has also been seen here over the past few days. I will questioned about the patient's recent mental status, the patient's granddaughter states that she had seen him yesterday in the longterm and he seemed to be very similar to the way he is today, meaning disoriented and somnolent. Complaint: fall -: hour(s) Fall From: other ([facility]) When Fall Occurred: just prior to arrival Place Fall Occurred: longterm/SNF Loss of Consciousness: unsure Prolonged Down Time?: no Symptoms Prior to Fall: other (Puncture) Associated Symptoms: denies - Related Data Home Medications Medication Instructions Recorded Confirmed Atorvastatin [Lipitor] 10 mg PO HS 10/08/15 04/05/17 Lisinopril [Zestril] 20 mg PO DAILY 10/08/15 04/05/17 metFORMIN HCL [Glucophage] 500 mg PO BID@0900,1700 10/08/15 04/05/17 DULoxetine HCL [Duloxetine HCl] 30 mg PO HS 03/10/16 04/05/17 DULoxetine HCL [Duloxetine HCl] 60 mg PO DAILY 03/10/16 04/05/17 Diazepam [Valium] 5 mg PO HS 03/24/16 04/05/17 Amitriptyline HCl [Elavil] 25 mg PO DAILY@1700 04/03/17 04/05/17 Aspirin EC [Ecotrin Low Dose] 81 mg PO DAILY 04/03/17 04/05/17 Baclofen [Lioresal] 40 mg PO DAILY@0600 04/03/17 04/05/17 Baclofen [Lioresal] 50 mg PO HS 04/03/17 04/05/17 Butalb/Acetaminophen/Caffeine 1 cap PO Q6H PRN 04/03/17 04/05/17 [Fioricet 50-300-40 mg Capsule] Diazepam [Valium] 5 mg PO Q6H PRN 04/03/17 04/05/17 HYDROcodone/APAP 10-325MG [Charmco 1 tab PO Q8H PRN 04/03/17 04/05/17 10-325] Topiramate [Topamax] 100 mg PO Q12H 04/03/17 04/05/17 acetaZOLAMIDE [Diamox Sequels] 500 mg PO BID@0600,1400 04/03/17 04/05/17 Triamcinolone 0.1% Cream [Kenalog] 1 applicatio TOPICAL BID 04/04/17 04/05/17 Allergies Allergy/AdvReac Type Severity Reaction Status Date / Time cephalexin monohydrate Allergy Anaphylaxis Verified 04/05/17 13:32 [From Keflex] Cephalosporins Allergy Unknown Verified 04/05/17 13:32 Penicillins Allergy Anaphylaxis Verified 04/05/17 13:32 Review of Systems ROS Statement: Those systems with pertinent positive or pertinent negative responses have been documented in the HPI. ROS Other: All systems not noted in ROS Statement are negative. Limitations: ROS unobtainable due to patients medical condition (The review of systems is very limited as the patient does appear delirious.) Constitutional: Denies: fever Respiratory: Denies: cough, dyspnea Cardiovascular: Denies: chest pain Gastrointestinal: Denies: abdominal pain, vomiting Musculoskeletal: Denies: back pain Neurological: Denies: headache Past Medical History Past Medical History: Atrial Fibrillation, Diabetes Mellitus, GERD/Reflux, Hypertension, Osteoarthritis (OA), Pneumonia Additional Past Medical History / Comment(s): 03-10-16 FELL/FX RT FIBULA, VERTIGO History of Any Multi-Drug Resistant Organisms: None Reported Past Surgical History: Back Surgery, Orthopedic Surgery Additional Past Surgical History / Comment(s): Bilateral mastectomy with right sided lymp node removal, rt. knee cap removed, back surgery for herniated disc. , Brain stem surgery for decompression-for dizziness, right ankle ORIF Past Anesthesia/Blood Transfusion Reactions: No Reported Reaction Past Psychological History: No Psychological Hx Reported Smoking Status: Former smoker Past Alcohol Use History: None Reported Past Drug Use History: None Reported - Past Family History Father History Unknown: Yes Family Medical History: Congestive Heart Failure (CHF), Coronary Artery Disease (CAD), Hypertension Mother History Unknown: Yes Family Medical History: Hypertension Additional Family Medical History / Comment(s): pulmonary hypertension General Exam Limitations: no limitations General appearance: alert, other (Appears delirious) Head exam: Present: atraumatic, normocephalic Eye exam: Present: normal appearance, PERRL, EOMI, nystagmus. Absent: scleral icterus, conjunctival injection ENT exam: Present: mucous membranes dry Neck exam: Present: full ROM, other (Patient has a surgical scar from the right postauricular area extending towards the right posterior neck. There are intact surgical abhilash. There is no apparent drainage, erythema or warmth. No marked tenderness.). Absent: tenderness, meningismus Respiratory exam: Present: normal lung sounds bilaterally. Absent: respiratory distress, wheezes, rales, rhonchi, stridor, chest wall tenderness, accessory muscle use, decreased breath sounds, prolonged expiratory Cardiovascular Exam: Present: regular rate, normal rhythm, normal heart sounds. Absent: systolic murmur, diastolic murmur, rubs, gallop GI/Abdominal exam: Present: soft. Absent: distended, tenderness, guarding, rebound, rigid, mass Extremities exam: Present: normal inspection, normal capillary refill. Absent: pedal edema, calf tenderness Back exam: Present: normal inspection. Absent: CVA tenderness (R), CVA tenderness (L) Neurological exam: Present: altered, CN II-XII intact, reflexes normal, other ( Patient is somnolent but arouses to verbal stimuli. The patient's GCS is 14 (E=4 , V=4, M=6), he is only able to follow very simple one step commands, but there is no apparent neuromuscular deficit. Patient is having intermittent myoclonic jerks. ). Absent: motor sensory deficit Skin exam: Present: warm, dry, intact, normal color. Absent: rash Course Vital Signs 04/05/17 04/05/17 04/05/17 13:29 15:09 16:26 Temperature 97.6 F Pulse Rate 74 76 66 Respiratory 18 16 18 Rate Blood Pressure 114/68 117/68 97/56 O2 Sat by Pulse 96 96 98 Oximetry Medical Decision Making - Medical Decision Making This patient is a 66-year-old man transferred here from his longterm after he had a fall. He also per the family's description has been manifesting delirium for the past day. His initial workup here does not show any new evidence of head trauma. As she is postsurgical from a neurosurgical procedure , and after discussion with the patient and family they would like to be at the facility where he had his surgery, I discussed the case with the transfer facility for [facility] (). After discussions there, I was transferred to [facility], where the case was discussed and they do accept transfer the patient, under the care of Dr Banks . - Lab Data Result diagrams: 04/05/17 13:30 04/05/17 13:30 Lab Results 04/05/17 04/05/17 04/05/17 Range/Units 13:30 13:30 13:30 WBC 10.6 (3.8-10.6) k/uL RBC 4.05 L (4.30-5.90) m/uL Hgb 12.4 L (13.0-17.5) gm/dL Hct 38.9 L (39.0-53.0) % MCV 96.0 (80.0-100.0) fL MCH 30.7 (25.0-35.0) pg MCHC 32.0 (31.0-37.0) g/dL RDW 14.5 (11.5-15.5) % Plt Count 242 (150-450) k/uL Neutrophils % 72 % Lymphocytes % 20 % Monocytes % 5 % Eosinophils % 2 % Basophils % 1 % Neutrophils # 7.6 (1.3-7.7) k/uL Lymphocytes # 2.1 (1.0-4.8) k/uL Monocytes # 0.5 (0-1.0) k/uL Eosinophils # 0.2 (0-0.7) k/uL Basophils # 0.1 (0-0.2) k/uL PT (9.0-12.0) sec INR (<1.2) APTT (22.0-30.0) sec VBG pH (7.31-7.41) VBG pCO2 (37-51) mmHg VBG HCO3 (24-28) mmol/L Sodium 145 (137-145) mmol/L Potassium 4.1 (3.5-5.1) mmol/L Chloride 110 H (98-107) mmol/L Carbon Dioxide 18 L (22-30) mmol/L Anion Gap 17 mmol/L BUN 25 H (9-20) mg/dL Creatinine 1.34 H (0.66-1.25) mg/dL Est GFR (MDRD) Af Amer >60 (>60 ml/min/1.73 sqM) Est GFR (MDRD) Non-Af 53 (>60 ml/min/1.73 sqM) Glucose 143 H (74-99) mg/dL Plasma Lactic Acid Balaji (0.7-2.0) mmol/L Calcium 9.8 (8.4-10.2) mg/dL Total Bilirubin 0.5 (0.2-1.3) mg/dL AST 18 (17-59) U/L ALT 31 (21-72) U/L Alkaline Phosphatase 52 (38-126) U/L Ammonia (<30) umol/L Total Creatine Kinase 30 L (55-170) U/L CK-MB (CK-2) 0.7 (0.0-2.4) ng/mL CK-MB (CK-2) Rel Index 2.3 Troponin I <0.012 (0.000-0.034) ng/mL Total Protein 7.0 (6.3-8.2) g/dL Albumin 4.1 (3.5-5.0) g/dL Urine Color Urine Appearance (Clear) Urine pH (5.0-8.0) Ur Specific Golden (1.001-1.035) Urine Protein (Negative) Urine Glucose (UA) (Negative) Urine Ketones (Negative) Urine Blood (Negative) Urine Nitrite (Negative) Urine Bilirubin (Negative) Urine Urobilinogen (<2.0) mg/dL Ur Leukocyte Esterase (Negative) Urine Opiates Screen (NotDetected) Ur Oxycodone Screen (NotDetected) Urine Methadone Screen (NotDetected) Ur Propoxyphene Screen (NotDetected) Ur Barbiturates Screen (NotDetected) U Tricyclic Antidepress (NotDetected) Ur Phencyclidine Scrn (NotDetected) Ur Amphetamines Screen (NotDetected) U Methamphetamines Scrn (NotDetected) U Benzodiazepines Scrn (NotDetected) Urine Cocaine Screen (NotDetected) U Marijuana (THC) Screen (NotDetected) Serum Alcohol <10 mg/dL 04/05/17 04/05/17 04/05/17 Range/Units 13:30 13:30 15:02 WBC (3.8-10.6) k/uL RBC (4.30-5.90) m/uL Hgb (13.0-17.5) gm/dL Hct (39.0-53.0) % MCV (80.0-100.0) fL MCH (25.0-35.0) pg MCHC (31.0-37.0) g/dL RDW (11.5-15.5) % Plt Count (150-450) k/uL Neutrophils % % Lymphocytes % % Monocytes % % Eosinophils % % Basophils % % Neutrophils # (1.3-7.7) k/uL Lymphocytes # (1.0-4.8) k/uL Monocytes # (0-1.0) k/uL Eosinophils # (0-0.7) k/uL Basophils # (0-0.2) k/uL PT 10.1 (9.0-12.0) sec INR 1.0 (<1.2) APTT 26.4 (22.0-30.0) sec VBG pH 7.30 L (7.31-7.41) VBG pCO2 32 L (37-51) mmHg VBG HCO3 15 L (24-28) mmol/L Sodium (137-145) mmol/L Potassium (3.5-5.1) mmol/L Chloride (98-107) mmol/L Carbon Dioxide (22-30) mmol/L Anion Gap mmol/L BUN (9-20) mg/dL Creatinine (0.66-1.25) mg/dL Est GFR (MDRD) Af Amer (>60 ml/min/1.73 sqM) Est GFR (MDRD) Non-Af (>60 ml/min/1.73 sqM) Glucose (74-99) mg/dL Plasma Lactic Acid Balaji 1.9 (0.7-2.0) mmol/L Calcium (8.4-10.2) mg/dL Total Bilirubin (0.2-1.3) mg/dL AST (17-59) U/L ALT (21-72) U/L Alkaline Phosphatase (38-126) U/L Ammonia 12 (<30) umol/L Total Creatine Kinase (55-170) U/L CK-MB (CK-2) (0.0-2.4) ng/mL CK-MB (CK-2) Rel Index Troponin I (0.000-0.034) ng/mL Total Protein (6.3-8.2) g/dL Albumin (3.5-5.0) g/dL Urine Color Urine Appearance (Clear) Urine pH (5.0-8.0) Ur Specific Golden (1.001-1.035) Urine Protein (Negative) Urine Glucose (UA) (Negative) Urine Ketones (Negative) Urine Blood (Negative) Urine Nitrite (Negative) Urine Bilirubin (Negative) Urine Urobilinogen (<2.0) mg/dL Ur Leukocyte Esterase (Negative) Urine Opiates Screen (NotDetected) Ur Oxycodone Screen (NotDetected) Urine Methadone Screen (NotDetected) Ur Propoxyphene Screen (NotDetected) Ur Barbiturates Screen (NotDetected) U Tricyclic Antidepress (NotDetected) Ur Phencyclidine Scrn (NotDetected) Ur Amphetamines Screen (NotDetected) U Methamphetamines Scrn (NotDetected) U Benzodiazepines Scrn (NotDetected) Urine Cocaine Screen (NotDetected) U Marijuana (THC) Screen (NotDetected) Serum Alcohol mg/dL 04/05/17 04/05/17 Range/Units 16:50 16:50 WBC (3.8-10.6) k/uL RBC (4.30-5.90) m/uL Hgb (13.0-17.5) gm/dL Hct (39.0-53.0) % MCV (80.0-100.0) fL MCH (25.0-35.0) pg MCHC (31.0-37.0) g/dL RDW (11.5-15.5) % Plt Count (150-450) k/uL Neutrophils % % Lymphocytes % % Monocytes % % Eosinophils % % Basophils % % Neutrophils # (1.3-7.7) k/uL Lymphocytes # (1.0-4.8) k/uL Monocytes # (0-1.0) k/uL Eosinophils # (0-0.7) k/uL Basophils # (0-0.2) k/uL PT (9.0-12.0) sec INR (<1.2) APTT (22.0-30.0) sec VBG pH (7.31-7.41) VBG pCO2 (37-51) mmHg VBG HCO3 (24-28) mmol/L Sodium (137-145) mmol/L Potassium (3.5-5.1) mmol/L Chloride (98-107) mmol/L Carbon Dioxide (22-30) mmol/L Anion Gap mmol/L BUN (9-20) mg/dL Creatinine (0.66-1.25) mg/dL Est GFR (MDRD) Af Amer (>60 ml/min/1.73 sqM) Est GFR (MDRD) Non-Af (>60 ml/min/1.73 sqM) Glucose (74-99) mg/dL Plasma Lactic Acid Balaji (0.7-2.0) mmol/L Calcium (8.4-10.2) mg/dL Total Bilirubin (0.2-1.3) mg/dL AST (17-59) U/L ALT (21-72) U/L Alkaline Phosphatase (38-126) U/L Ammonia (<30) umol/L Total Creatine Kinase (55-170) U/L CK-MB (CK-2) (0.0-2.4) ng/mL CK-MB (CK-2) Rel Index Troponin I (0.000-0.034) ng/mL Total Protein (6.3-8.2) g/dL Albumin (3.5-5.0) g/dL Urine Color Light Yellow Urine Appearance Clear (Clear) Urine pH 5.5 (5.0-8.0) Ur Specific Golden 1.008 (1.001-1.035) Urine Protein Negative (Negative) Urine Glucose (UA) Negative (Negative) Urine Ketones Negative (Negative) Urine Blood Negative (Negative) Urine Nitrite Negative (Negative) Urine Bilirubin Negative (Negative) Urine Urobilinogen <2.0 (<2.0) mg/dL Ur Leukocyte Esterase Negative (Negative) Urine Opiates Screen Detected H (NotDetected) Ur Oxycodone Screen Not Detected (NotDetected) Urine Methadone Screen Not Detected (NotDetected) Ur Propoxyphene Screen Not Detected (NotDetected) Ur Barbiturates Screen Detected H (NotDetected) U Tricyclic Antidepress Not Detected (NotDetected) Ur Phencyclidine Scrn Not Detected (NotDetected) Ur Amphetamines Screen Not Detected (NotDetected) U Methamphetamines Scrn Not Detected (NotDetected) U Benzodiazepines Scrn Detected H (NotDetected) Urine Cocaine Screen Not Detected (NotDetected) U Marijuana (THC) Screen Not Detected (NotDetected) Serum Alcohol mg/dL - EKG Data -: EKG Interpreted by Mo EKG shows normal: sinus rhythm (With sinus arrhythmia), axis (Normal), intervals (Normal), QRS complexes (Normal), ST-T waves (Normal) Rate: normal (Rate 75 bpm) Interpretation: normal EKG Disposition Clinical Impression: Fall, Delirium, Dehydration Disposition: HOME SELF-CARE Condition: Fair Referrals: Christine Rascon MD [Primary Care Provider] - 1-2 days
[2017-04-05 14:47] LABS: Basophils # (A) 0.1 k/uL (0-0.2); Basophils % (A) 1 %; Eosinophils # (A) 0.2 k/uL (0-0.7); Eosinophils % (A) 2 %; HCT 38.9 % (39.0-53.0); HGB 12.4 gm/dL (13.0-17.5); Lymphocytes # (A) 2.1 k/uL (1.0-4.8); Lymphocytes % (A) 20 %; MCH 30.7 pg (25.0-35.0); Mean Platelet Volume 7.8; Monocytes # (A) 0.5 k/uL (0-1.0); Monocytes % (A) 5 %; Neutrophils # (A) 7.6 k/uL (1.3-7.7); Neutrophils % (A) 72 %; Platelet Count 242 k/uL (150-450); RBC 4.05 m/uL (4.30-5.90); RDW 14.5 % (11.5-15.5); WBC 10.6 k/uL (3.8-10.6)
[2017-04-05 14:56] LABS: Partial Thromboplastin Time 26.4 sec (22.0-30.0); Prothrombin Time 10.1 sec (9.0-12.0)
--- NOTE | 2017-04-05 14:56 | XR ---
EXAMINATION TYPE: XR chest 1V portable DATE OF EXAM: 04/05/2017 COMPARISON: 04/03/2017 HISTORY: Pain TECHNIQUE: Single frontal view of the chest is obtained. FINDINGS: Heart is prominent. Subsegmental changes at the left lung base. No obvious pneumothorax or overt failure. Hypertrophic change of the AC joints. IMPRESSION: Left basilar atelectasis favored over infiltrate. Correlate clinically
[2017-04-05 14:58] LABS: ALT 31 U/L (21-72); AST 18 U/L (17-59); Albumin 4.1 g/dL (3.5-5.0); Alcohol <10 mg/dL; Alkaline Phosphatase 52 U/L (38-126); Anion Gap 17 mmol/L; Blood Urea Nitrogen 25 mg/dL (9-20); Calcium 9.8 mg/dL (8.4-10.2); Carbon Dioxide 18 mmol/L (22-30); Chloride 110 mmol/L (98-107); Glucose 143 mg/dL (74-99); Potassium 4.1 mmol/L (3.5-5.1); Sodium 145 mmol/L (137-145); Total Bilirubin 0.5 mg/dL (0.2-1.3)
[2017-04-05 15:00] LABS: Lactic Acid, Venous 1.9 mmol/L (0.7-2.0)
[2017-04-05 15:10] LABS: Creatine Kinase 30 U/L (55-170)
[2017-04-05 15:15] LABS: VBG PH 7.3 (7.31-7.41)
[2017-04-05 15:22] LABS: Creatine Kinase MB 0.7 ng/mL (0.0-2.4); Troponin I <0.012 ng/mL (0.000-0.034)
--- NOTE | 2017-04-05 15:50 | CT ---
EXAMINATION TYPE: CT brain aubrey wo con DATE OF EXAM: 04/05/2017 COMPARISON: April 03, 2017 HISTORY: Fall injury and confusion CT DLP: 2190.[address] of the brain was performed. The ventricles, basal cisterns and sulci overlying the cerebral convexities demonstrate mild enlargem ent. There is no evidence for intracranial hemorrhage or sulcal effacement. There is decreased attenuatio n about the periventricular white matter and deep white matter of both cerebral hemispheres, compatib le with chronic small vessel ischemia. No mass effects are seen. If symptoms persist consider MRI. Right occipital craniotomy changes are again noted and appear to be essentially unchanged. Fluid and air seen at the craniotomy site. Overlying skin abhilash are evident. IMPRESSION: 1. Age related atrophic and chronic small vessel ischemic change without acute intracranial process seen at this time. CT Cervical Spine: Unenhanced CT of the cervical spine was performed with bone and soft tissue window settings submitted . Coronal and sagittal reconstruction is obtained. There is normal alignment and prevertebral soft tissues. No evidence for acute cervical fracture . Scattered degenerative disc disease and spondylosis. Biapical scarring. IMPRESSION: 1. No evidence for acute fracture or subluxation of the cervical spine.
[2017-04-05] MEDS ORDERED: SODIUM CHLORIDE 0.9% 1,000 ML IV ONE (16:09)
[2017-04-05 16:32] VITALS: RESP 18
[2017-04-05 16:56] LABS: Appearance,Urine Clear (Clear); Bilirubin,Urine Negative (Negative); Blood,Urine Negative (Negative); Color,Urine Light Yellow; Glucose,Urine (UA) Negative (Negative); Ketones,Urine Negative (Negative); Leukocyte Esterase,Urine Negative (Negative); Nitrite,Urine Negative (Negative); PH, Urine 5.5 (5.0-8.0); Protein,Urine Negative (Negative); Specific Gravity,Urine 1.008 (1.001-1.035); Urobilinogen,Urine <2.0 mg/dL (<2.0)
[2017-04-05 17:04] LABS: Amphetamine Screen,Urine Not Detected (NotDetected); Cocaine Screen,Urine Not Detected (NotDetected); Opiate Screen,Urine Detected (NotDetected); Phencyclidine Screen,Urine Not Detected (NotDetected); Urn Cannabinoid Scrn Not Detected (NotDetected)
[2017-04-05 17:05] LABS: Barbiturate Screen,Urine Detected (NotDetected); Benzodiazepines Screen,Urine Detected (NotDetected); Methadone Screen, Urine Not Detected (NotDetected); Oxycodone Screen, Urine Not Detected (NotDetected); Tricyclic Antidepressant,Urine Not Detected (NotDetected)
[2017-04-05 17:14] VITALS: BP 96/70; PULSE 72
== END 2017-04-05 18:20 | disposition home or self-care (01) ==
LOC: EC 13:21
DX: R41.0 Disorientation, unspecified (principal); E86.0 Dehydration; I48.91 Unspecified atrial fibrillation; E11.9 Type 2 diabetes mellitus without complications; K21.9 Gastro-esophageal reflux disease without esophagitis; I10 Essential (primary) hypertension; M19.90 Unspecified osteoarthritis, unspecified site; Z87.891 Personal history of nicotine dependence; Z79.84 Long term (current) use of oral hypoglycemic drugs; Z79.82 Long term (current) use of aspirin; Z79.899 Other long term (current) drug therapy; Z88.0 Allergy status to penicillin; Z88.1 Allergy status to other antibiotic agents; W19.XXXA Unspecified fall, initial encounter
CPT/HCPCS: 36415; 70450; 71045; 72125; 80053; 80306; 80320; 81003; 82140; 82550; 82553; 82803; 83605; 84484; 85025; 85610; 85730; 93005; 96360; 99285

== ENCOUNTER 2017-05-04 02:30 | Emergency (ER) | payer MEDICARE ==
[2017-05-04] MEDS ORDERED: MORPHINE SULFATE 4 MG/ML SYRINGE IV STA (03:24)
--- NOTE | 2017-05-04 03:59 | CT ---
EXAM: CT Head Without Intravenous Contrast CLINICAL HISTORY: Reason: Pain TECHNIQUE: Axial computed tomography images of the head/brain without intravenous contrast. CTDI is 57.4 mGy and DLP is 1913.00 mGy-cm. This CT exam was performed using one or more of the following dose reduction techniques: automated exposure control, adjustment of the mA and/or kV according to patient size, and/or use of iterative reconstruction technique. COMPARISON: 04/05/17 FINDINGS: Brain: Chronic small vessel ischemic changes in the periventricular and subcortical white matter. Mild age-related cerebral atrophy. No hemorrhage. Ventricles: Unremarkable. No ventriculomegaly. Bones/joints: Right occipital craniotomy is again demonstrated. 3 cm fluid collection at the postsurgical site is likely a seroma. Superimposed infection difficult to exclude based on imaging alone. No acute fracture. Soft tissues: Unremarkable. Sinuses: Unremarkable as visualized. No acute sinusitis. Mastoid air cells: Unremarkable as visualized. No mastoid effusion. IMPRESSION: No acute intracranial abnormality. Right occipital craniotomy. 3 cm fluid collection at the postsurgical site is likely a seroma. Superimposed infection/abscess difficult to exclude based on imaging alone.
--- NOTE | 2017-05-04 05:21 | XR ---
EXAM: XR Chest, 1 View CLINICAL HISTORY: Reason: Pain TECHNIQUE: Frontal view of the chest. COMPARISON: Chest x-ray dated 04/05/2017. FINDINGS: Lungs: Reidentified mild opacity in left lung base favored to represent atelectasis, less likely infection. Mild prominence of the perihilar structures may represent mild edema. Pleural space: Unremarkable. No pneumothorax. Heart: Reidentified severe cardiomegaly. Mediastinum: Unremarkable. Bones/joints: Unremarkable. Soft tissues: Unremarkable. Tubes, lines and devices: Interval placement of a left-sided PICC with tip projecting over the cavoatrial junction. Other findings: Poor inspiration. IMPRESSION: 1. Reidentified mild opacity in left lung base favored to represent atelectasis, less likely infection. 2. Mild prominence of the perihilar structures may represent mild edema.
[2017-05-04 05:31] LABS: Basophils % (A) 0 %; Eosinophils # (A) 0.1 k/uL (0-0.7); Eosinophils % (A) 1 %; HCT 35.9 % (39.0-53.0); HGB 11.6 gm/dL (13.0-17.5); Lymphocytes # (A) 1.5 k/uL (1.0-4.8); Lymphocytes % (A) 13 %; MCH 30.4 pg (25.0-35.0); MCHC 32.2 g/dL (31.0-37.0); MCV 94.3 fL (80.0-100.0); Mean Platelet Volume 9.5; Monocytes # (A) 0.6 k/uL (0-1.0); Monocytes % (A) 6 %; Neutrophils # (A) 8.5 k/uL (1.3-7.7); Neutrophils % (A) 79 %; Platelet Count 177 k/uL (150-450); RDW 14.2 % (11.5-15.5); WBC 10.8 k/uL (3.8-10.6)
--- NOTE | 2017-05-04 08:01 | ED ---
Headache HPI - General Chief Complaint: Headache Stated Complaint: Headache Time Seen by Provider: 05/04/17 03:24 Mode of arrival: EMS Limitations: no limitations - History of Present Illness Initial Comments: This patient is a 66-year-old man who presents to be evaluated for headache. Patient's history is notable for having a right sided retromastoid craniectomy with microvascular decompression performed at [facility] by Dr. Ferraro, at the end of February. The patient was seen here number times in March and then returned there to be seen. He was then discharged to a rehabilitation facility and has been on daptomycin 1 g daily since the middle of March. He is scheduled to take this through May 17. The patient does state that he is out of his 10 mg hydrocodone that he had been taking for pains, having run out in the late afternoon yesterday. He is denying other symptoms at this time. MD Complaint: headache -: hour(s) Onset Description: gradual Location: right, occipital Severity: moderate Quality: aching Consistency: constant Improves With: nothing Worsens With: none Treatments Prior to Arrival: none - Related Data Home Medications Medication Instructions Recorded Confirmed Atorvastatin [Lipitor] 10 mg PO HS 10/08/15 05/04/17 Lisinopril [Zestril] 20 mg PO DAILY 10/08/15 05/04/17 metFORMIN HCL [Glucophage] 500 mg PO AC-BID 10/08/15 05/04/17 DULoxetine HCL [Duloxetine HCl] 30 mg PO HS 03/10/16 05/04/17 DULoxetine HCL [Duloxetine HCl] 60 mg PO DAILY 03/10/16 05/04/17 Diazepam [Valium] 5 mg PO BID PRN 03/24/16 05/04/17 Baclofen [Lioresal] 40 mg PO DAILY@0600 04/03/17 05/04/17 Baclofen [Lioresal] 50 mg PO HS 04/03/17 05/04/17 HYDROcodone/APAP 10-325MG [Roslyn 1 tab PO Q8H PRN 04/03/17 05/04/17 10-325] Topiramate [Topamax] 100 mg PO Q12H 04/03/17 05/04/17 acetaZOLAMIDE [Diamox Sequels] 500 mg PO Q12H 04/03/17 05/04/17 Triamcinolone 0.1% Cream [Kenalog] 1 applic TOPICAL BID 04/04/17 05/04/17 Aspirin [Children's Aspirin] 81 mg PO DAILY 05/04/17 05/04/17 Buprenorphine [Butrans 10 MCG/HOUR] 1 patch TRANSDERM Q7D 05/04/17 05/04/17 Butalb/APAP/Caff 50-325-40Mg 1 tab PO Q6H PRN 05/04/17 05/04/17 [Fioricet 50-325-40] DAPTOmycin [Cubicin] 1,000 mg IV Q24H 05/04/17 05/04/17 Enoxaparin [Lovenox] 147 mg SQ Q12H 05/04/17 05/04/17 Warfarin [Coumadin] 3 mg PO HS 05/04/17 05/04/17 traMADol HCL [Ultram] 50 mg PO Q4HR PRN 05/04/17 05/04/17 Previous Rx's Medication Instructions Recorded Hydrocodone/Acetaminophen [Roslyn 1 each PO Q6HR PRN #10 tab 05/04/17 5-325] Allergies Allergy/AdvReac Type Severity Reaction Status Date / Time cephalexin monohydrate Allergy Anaphylaxis Verified 05/04/17 07:43 [From Keflex] Cephalosporins Allergy Unknown Verified 05/04/17 07:43 Penicillins Allergy Anaphylaxis Verified 05/04/17 07:43 Review of Systems ROS Statement: Those systems with pertinent positive or pertinent negative responses have been documented in the HPI. ROS Other: All systems not noted in ROS Statement are negative. Constitutional: Denies: fever, chills, weakness Eyes: Denies: vision change ENT: Denies: ear pain Respiratory: Denies: cough, dyspnea Cardiovascular: Denies: chest pain, syncope Gastrointestinal: Denies: abdominal pain, nausea, vomiting Musculoskeletal: Denies: back pain Skin: Denies: rash Neurological: Reports: as per HPI, headache. Denies: weakness, numbness, paresthesias Past Medical History Past Medical History: Atrial Fibrillation, Diabetes Mellitus, GERD/Reflux, Hypertension, Osteoarthritis (OA), Pneumonia Additional Past Medical History / Comment(s): 03-10-16 FELL/FX RT FIBULA, VERTIGO History of Any Multi-Drug Resistant Organisms: None Reported Past Surgical History: Back Surgery, Orthopedic Surgery Additional Past Surgical History / Comment(s): Bilateral mastectomy with right sided lymp node removal, rt. knee cap removed, back surgery for herniated disc. , Brain stem surgery for decompression-for dizziness, right ankle ORIF Past Anesthesia/Blood Transfusion Reactions: No Reported Reaction Past Psychological History: No Psychological Hx Reported Smoking Status: Former smoker Past Alcohol Use History: None Reported Past Drug Use History: None Reported - Past Family History Father History Unknown: Yes Family Medical History: Congestive Heart Failure (CHF), Coronary Artery Disease (CAD), Hypertension Mother History Unknown: Yes Family Medical History: Hypertension Additional Family Medical History / Comment(s): pulmonary hypertension General Exam Limitations: no limitations General appearance: alert, in no apparent distress, obese Head exam: Present: atraumatic, normocephalic, other (Inspection of the patient' s surgical site reveals intact surgical abhilash. There is no erythema, warmth, or drainage.) Eye exam: Present: normal appearance. Absent: scleral icterus, conjunctival injection ENT exam: Present: normal oropharynx Neck exam: Present: full ROM. Absent: tenderness, meningismus Respiratory exam: Present: normal lung sounds bilaterally. Absent: respiratory distress, wheezes, rales, rhonchi, stridor Cardiovascular Exam: Present: regular rate, normal rhythm, normal heart sounds. Absent: systolic murmur, diastolic murmur, rubs, gallop GI/Abdominal exam: Present: soft. Absent: distended, tenderness, guarding, rebound, rigid Extremities exam: Present: normal inspection, normal capillary refill. Absent: pedal edema, calf tenderness Back exam: Absent: CVA tenderness (R), CVA tenderness (L) Neurological exam: Present: alert, oriented X3. Absent: motor sensory deficit Skin exam: Present: warm, dry, intact, normal color. Absent: rash Course Vital Signs 05/04/17 05/04/17 05/04/17 03:21 05:16 07:08 Temperature 100.9 F H 98.5 F 99.3 F Pulse Rate 96 86 84 Respiratory 18 18 18 Rate Blood Pressure 117/61 103/60 132/69 O2 Sat by Pulse 95 96 97 Oximetry 05/04/17 05/04/17 09:25 11:05 Temperature 97.7 F Pulse Rate 76 87 Respiratory 20 16 Rate Blood Pressure 170/139 119/68 O2 Sat by Pulse 97 96 Oximetry Medical Decision Making - Medical Decision Making Patient is 66-year-old man presenting with complaint of headache, which has been occurring since his surgery. He is out of his home analgesics. He is incidentally found to have a fever here on arrival. The patient did request to be transferred back to [facility]. I discussed the case with the physician there Dr. Merino, who then spoke with the patient's physician Dr. Ferraro ([phone]). The CT findings appear to be stable versus what they were seeing there. I discussed the case with Dr. Ferraro([phone]) who informed me that the patient was on daptomycin for a culture that was taken from the external skin showing MRSA. He states that his colleague Dr. Lizarraga had cultured the fluid collection and it did not grow any organisms. Dr. Ferraro states that after the patient is cleared here he can be seen in the clinic today as they have office hours Sunday afternoon. - Lab Data Result diagrams: 05/04/17 03:26 05/04/17 03:26 Lab Results 05/04/17 05/04/17 05/04/17 Range/Units 03:26 03:26 03:26 WBC 10.8 H (3.8-10.6) k/uL RBC 3.80 L (4.30-5.90) m/uL Hgb 11.6 L (13.0-17.5) gm/dL Hct 35.9 L (39.0-53.0) % MCV 94.3 (80.0-100.0) fL MCH 30.4 (25.0-35.0) pg MCHC 32.2 (31.0-37.0) g/dL RDW 14.2 (11.5-15.5) % Plt Count 177 (150-450) k/uL Neutrophils % 79 % Lymphocytes % 13 % Monocytes % 6 % Eosinophils % 1 % Basophils % 0 % Neutrophils # 8.5 H (1.3-7.7) k/uL Lymphocytes # 1.5 (1.0-4.8) k/uL Monocytes # 0.6 (0-1.0) k/uL Eosinophils # 0.1 (0-0.7) k/uL Basophils # 0.0 (0-0.2) k/uL Sodium 146 H (137-145) mmol/L Potassium 4.1 (3.5-5.1) mmol/L Chloride 111 H (98-107) mmol/L Carbon Dioxide 18 L (22-30) mmol/L Anion Gap 17 mmol/L BUN 20 (9-20) mg/dL Creatinine 1.24 (0.66-1.25) mg/dL Est GFR (MDRD) Af Amer >60 (>60 ml/min/1.73 sqM) Est GFR (MDRD) Non-Af 58 (>60 ml/min/1.73 sqM) Glucose 149 H (74-99) mg/dL Calcium 10.0 (8.4-10.2) mg/dL Total Bilirubin 0.4 (0.2-1.3) mg/dL AST 23 (17-59) U/L ALT 23 (21-72) U/L Alkaline Phosphatase 56 (38-126) U/L C-Reactive Protein 19.4 H (<10.0) mg/L Total Protein 7.4 (6.3-8.2) g/dL Albumin 4.2 (3.5-5.0) g/dL Urine Color Urine Appearance (Clear) Urine pH (5.0-8.0) Ur Specific Galax (1.001-1.035) Urine Protein (Negative) Urine Glucose (UA) (Negative) Urine Ketones (Negative) Urine Blood (Negative) Urine Nitrite (Negative) Urine Bilirubin (Negative) Urine Urobilinogen (<2.0) mg/dL Ur Leukocyte Esterase (Negative) Urine RBC (0-5) /hpf Urine WBC (0-5) /hpf Hyaline Casts (0-2) /lpf Urine Mucus (None) /hpf Influenza Type A RNA (Not Detectd) Influenza Type B (PCR) (Not Detectd) 05/04/17 05/04/17 Range/Units 05:32 09:26 WBC (3.8-10.6) k/uL RBC (4.30-5.90) m/uL Hgb (13.0-17.5) gm/dL Hct (39.0-53.0) % MCV (80.0-100.0) fL MCH (25.0-35.0) pg MCHC (31.0-37.0) g/dL RDW (11.5-15.5) % Plt Count (150-450) k/uL Neutrophils % % Lymphocytes % % Monocytes % % Eosinophils % % Basophils % % Neutrophils # (1.3-7.7) k/uL Lymphocytes # (1.0-4.8) k/uL Monocytes # (0-1.0) k/uL Eosinophils # (0-0.7) k/uL Basophils # (0-0.2) k/uL Sodium (137-145) mmol/L Potassium (3.5-5.1) mmol/L Chloride (98-107) mmol/L Carbon Dioxide (22-30) mmol/L Anion Gap mmol/L BUN (9-20) mg/dL Creatinine (0.66-1.25) mg/dL Est GFR (MDRD) Af Amer (>60 ml/min/1.73 sqM) Est GFR (MDRD) Non-Af (>60 ml/min/1.73 sqM) Glucose (74-99) mg/dL Calcium (8.4-10.2) mg/dL Total Bilirubin (0.2-1.3) mg/dL AST (17-59) U/L ALT (21-72) U/L Alkaline Phosphatase (38-126) U/L C-Reactive Protein (<10.0) mg/L Total Protein (6.3-8.2) g/dL Albumin (3.5-5.0) g/dL Urine Color Yellow Urine Appearance Clear (Clear) Urine pH 6.5 (5.0-8.0) Ur Specific Galax 1.021 (1.001-1.035) Urine Protein 1+ H (Negative) Urine Glucose (UA) Negative (Negative) Urine Ketones Negative (Negative) Urine Blood Negative (Negative) Urine Nitrite Negative (Negative) Urine Bilirubin Negative (Negative) Urine Urobilinogen <2.0 (<2.0) mg/dL Ur Leukocyte Esterase Negative (Negative) Urine RBC 8 H (0-5) /hpf Urine WBC <1 (0-5) /hpf Hyaline Casts 1 (0-2) /lpf Urine Mucus Rare H (None) /hpf Influenza Type A RNA Not Detected (Not Detectd) Influenza Type B (PCR) Not Detected (Not Detectd) Disposition Clinical Impression: Chronic headache, Fever Disposition: HOME SELF-CARE Condition: Fair Instructions: Fever in Adults (ED), Chronic Post Traumatic Headache (ED) Prescriptions: Hydrocodone/Acetaminophen [Roslyn 5-325] 1 each PO Q6HR PRN #10 tab PRN Reason: Pain Referrals: Christine Rascon MD [Primary Care Provider] - 1-2 days
[2017-05-04 09:10] LABS: ALT 23 U/L (21-72); AST 23 U/L (17-59); Albumin 4.2 g/dL (3.5-5.0); Alkaline Phosphatase 56 U/L (38-126); Anion Gap 17 mmol/L; Blood Urea Nitrogen 20 mg/dL (9-20); Carbon Dioxide 18 mmol/L (22-30); Chloride 111 mmol/L (98-107); Glucose 149 mg/dL (74-99); Potassium 4.1 mmol/L (3.5-5.1); Sodium 146 mmol/L (137-145); Total Bilirubin 0.4 mg/dL (0.2-1.3); Total Protein 7.4 g/dL (6.3-8.2)
[2017-05-04 09:37] LABS: Appearance,Urine Clear (Clear); Bilirubin,Urine Negative (Negative); Blood,Urine Negative (Negative); Color,Urine Yellow; Glucose,Urine (UA) Negative (Negative); Hyaline Casts,Urine 1 /lpf (0-2); Ketones,Urine Negative (Negative); Leukocyte Esterase,Urine Negative (Negative); Mucus,Urine Rare /hpf; Nitrite,Urine Negative (Negative); PH, Urine 6.5 (5.0-8.0); Protein,Urine 1+ (Negative); RBC,Urine 8 /hpf (0-5); Specific Gravity,Urine 1.021 (1.001-1.035); Urobilinogen,Urine <2.0 mg/dL (<2.0); WBC,Urine <1 /hpf (0-5)
[2017-05-04 11:06] VITALS: BP 119/68; PULSE 87; RESP 16; TEMP 97.7
== END 2017-05-04 12:30 | disposition home or self-care (01) ==
LOC: EC 02:30
DX: R51 Headache (principal); R50.9 Fever, unspecified; I48.91 Unspecified atrial fibrillation; E11.9 Type 2 diabetes mellitus without complications; I10 Essential (primary) hypertension; Z98.890 Other specified postprocedural states; Z87.891 Personal history of nicotine dependence; Z79.82 Long term (current) use of aspirin; Z79.84 Long term (current) use of oral hypoglycemic drugs; Z79.01 Long term (current) use of anticoagulants; Z79.899 Other long term (current) drug therapy; Z88.1 Allergy status to other antibiotic agents; Z88.0 Allergy status to penicillin
CPT/HCPCS: 99285; 96374; 36415; 80053; 85025; 86140; 81001; 87040; 87502; 71045; 70450; J2270

== ENCOUNTER 2017-06-21 17:15 | Observation (INO) | payer MEDICARE ==
--- NOTE | 2017-06-21 17:25 | ED ---
General Adult HPI - General Stated complaint: FALL Time Seen by Provider: 06/21/17 17:20 Source: patient, EMS, RN notes reviewed - History of Present Illness Initial comments: 67-year-old male presenting status post fall. Patient is brought in by EMS with chief complaint of bilateral rib pain after falling yesterday evening. According EMS patient does have history of atrial fibrillation and is on Eliquis. Patient denies head or neck pain, denies LOC, although patient states he does have a headache, this is chronic in nature. According to the patient he has had brain surgery remotely and has chronic daily headaches. Denies any focal weakness. Denies difficulty breathing. Denies abdominal pain. Denies nausea vomiting. Patient is quite repetitive on questioning, uncertain of the patient's baseline mental status. He is alert and oriented 3. - Related Data Home Medications Medication Instructions Recorded Confirmed Atorvastatin [Lipitor] 10 mg PO HS 10/08/15 06/21/17 Lisinopril [Zestril] 20 mg PO DAILY 10/08/15 06/21/17 DULoxetine HCL [Duloxetine HCl] 60 mg PO DAILY 03/10/16 06/21/17 Baclofen [Lioresal] 20 mg PO TID PRN 04/03/17 06/21/17 acetaZOLAMIDE [Diamox Sequels] 500 mg PO Q12H 04/03/17 06/21/17 Aspirin [Children's Aspirin] 81 mg PO DAILY 05/04/17 06/21/17 Butalb/APAP/Caff 50-325-40Mg 1 tab PO BID PRN 05/04/17 06/21/17 [Fioricet 50-325-40] Apixaban [Eliquis] 2.5 mg PO BID 06/21/17 06/21/17 Diazepam [Valium] 2 mg PO HS 06/21/17 06/21/17 metFORMIN HCL [Glucophage] 500 mg PO BID 06/21/17 06/21/17 Allergies Allergy/AdvReac Type Severity Reaction Status Date / Time cephalexin monohydrate Allergy Anaphylaxis Verified 05/04/17 07:43 [From Keflex] Cephalosporins Allergy Unknown Verified 05/04/17 07:43 Penicillins Allergy Anaphylaxis Verified 05/04/17 07:43 Review of Systems ROS Statement: Those systems with pertinent positive or pertinent negative responses have been documented in the HPI. ROS Other: All systems not noted in ROS Statement are negative. Past Medical History Past Medical History: Atrial Fibrillation, Diabetes Mellitus, GERD/Reflux, Hypertension, Osteoarthritis (OA), Pneumonia Additional Past Medical History / Comment(s): 03-10-16 FELL/FX RT FIBULA, VERTIGO History of Any Multi-Drug Resistant Organisms: None Reported Past Surgical History: Back Surgery, Orthopedic Surgery Additional Past Surgical History / Comment(s): Bilateral mastectomy with right sided lymp node removal, rt. knee cap removed, back surgery for herniated disc. , Brain stem surgery for decompression-for dizziness, right ankle ORIF Past Anesthesia/Blood Transfusion Reactions: No Reported Reaction Past Psychological History: No Psychological Hx Reported Smoking Status: Former smoker Past Alcohol Use History: None Reported Past Drug Use History: None Reported - Past Family History Father History Unknown: Yes Family Medical History: Congestive Heart Failure (CHF), Coronary Artery Disease (CAD), Hypertension Mother History Unknown: Yes Family Medical History: Hypertension Additional Family Medical History / Comment(s): pulmonary hypertension General Exam General appearance: alert, in no apparent distress Head exam: Present: atraumatic, normocephalic Eye exam: Present: normal appearance, PERRL ENT exam: Present: normal exam Neck exam: Present: normal inspection, other (C-collar maintained, placed by EMS ). Absent: tenderness Respiratory exam: Present: normal lung sounds bilaterally, chest wall tenderness (Bilateral lateral chest wall tenderness to palpation). Absent: respiratory distress Cardiovascular Exam: Present: regular rate, normal rhythm GI/Abdominal exam: Present: soft, distended. Absent: tenderness, guarding Extremities exam: Present: normal inspection, full ROM, normal capillary refill. Absent: tenderness, pedal edema Neurological exam: Present: alert, oriented X3, CN II-XII intact. Absent: motor sensory deficit Psychiatric exam: Present: flat affect Skin exam: Present: warm, dry, intact. Absent: cyanosis, diaphoretic Course Vital Signs 06/21/17 06/21/17 06/21/17 17:19 18:30 19:53 Temperature 98.2 F Pulse Rate 77 77 76 Respiratory 19 20 20 Rate Blood Pressure 119/72 101/52 119/64 O2 Sat by Pulse 97 99 99 Oximetry 06/21/17 06/21/17 20:27 21:00 Temperature Pulse Rate 86 83 Respiratory 20 20 Rate Blood Pressure 126/56 133/63 O2 Sat by Pulse 99 97 Oximetry - Reevaluation(s) Reevaluation #1: 06/21/17 18:14 Additional history obtained from patient's family friend, he is several months postop brainstem surgery, he's been dealing with positional dizziness and chronic headache since that time. Patient's primary care physician does state he has had some chronic dizziness and multiple falls. 06/21/17 21:15 Additional history obtained from patient's family members they state that he was on the floor for approximately 12 hours, he had been pushing his medical alert bracelet with no response. Patient lives alone. EKG Findings - EKG Comments: EKG Findings:: EKG: Sinus rhythm with sinus arrhythmia, ventricular rate 83, NM interval 166, QRS duration 94, QTC 451, no ST segment elevation Medical Decision Making - Medical Decision Making 67-year-old male presenting with fall, prolonged downtime, and chest pain. There is no head, however patient does have history of brain tumor status post resection and is somewhat repetitive on initial evaluation. Head CT is obtained , this is negative for intracranial hemorrhage or mass effect. C-spine is negative for fracture or subluxation. Chest x-ray shows no acute bony abnormality, x-ray of the hand negative for fracture or dislocation. Laboratory studies reveal normal white blood cell count, hemoglobin is 12.7 which appears stable. Sodium 144. Electrolytes are stable. Creatinine kinase is 69 which is normal. Patient will be placed in observation, PT will be asked to evaluate the patient for assessment gait stability. - Lab Data Result diagrams: 06/21/17 17:30 06/21/17 17:30 Lab Results 06/21/17 06/21/17 06/21/17 Range/Units 17:30 17:30 17:30 WBC 9.9 (3.8-10.6) k/uL RBC 4.03 L (4.30-5.90) m/uL Hgb 12.7 L (13.0-17.5) gm/dL Hct 37.5 L (39.0-53.0) % MCV 93.0 (80.0-100.0) fL MCH 31.6 (25.0-35.0) pg MCHC 33.9 (31.0-37.0) g/dL RDW 14.4 (11.5-15.5) % Plt Count 204 (150-450) k/uL Neutrophils % 79 % Lymphocytes % 13 % Monocytes % 5 % Eosinophils % 1 % Basophils % 0 % Neutrophils # 7.9 H (1.3-7.7) k/uL Lymphocytes # 1.3 (1.0-4.8) k/uL Monocytes # 0.5 (0-1.0) k/uL Eosinophils # 0.1 (0-0.7) k/uL Basophils # 0.0 (0-0.2) k/uL PT 10.0 (9.0-12.0) sec INR 1.0 (<1.2) APTT 30.2 H (22.0-30.0) sec Sodium 144 (137-145) mmol/L Potassium 4.3 (3.5-5.1) mmol/L Chloride 110 H (98-107) mmol/L Carbon Dioxide 19 L (22-30) mmol/L Anion Gap 15 mmol/L BUN 22 H (9-20) mg/dL Creatinine 1.07 (0.66-1.25) mg/dL Est GFR (CKD-EPI)AfAm 83 (>60 ml/min/1.73 sqM) Est GFR (CKD-EPI)NonAf 72 (>60 ml/min/1.73 sqM) Glucose 130 H (74-99) mg/dL Calcium 9.4 (8.4-10.2) mg/dL Total Bilirubin 0.4 (0.2-1.3) mg/dL AST 15 L (17-59) U/L ALT 24 (21-72) U/L Alkaline Phosphatase 56 (38-126) U/L Creatine Kinase (55-170) U/L Total Protein 7.4 (6.3-8.2) g/dL Albumin 4.3 (3.5-5.0) g/dL Urine Opiates Screen (NotDetected) Ur Oxycodone Screen (NotDetected) Urine Methadone Screen (NotDetected) Ur Propoxyphene Screen (NotDetected) Ur Barbiturates Screen (NotDetected) U Tricyclic Antidepress (NotDetected) Ur Phencyclidine Scrn (NotDetected) Ur Amphetamines Screen (NotDetected) U Methamphetamines Scrn (NotDetected) U Benzodiazepines Scrn (NotDetected) Urine Cocaine Screen (NotDetected) U Marijuana (THC) Screen (NotDetected) 06/21/17 06/21/17 Range/Units 17:30 20:35 WBC (3.8-10.6) k/uL RBC (4.30-5.90) m/uL Hgb (13.0-17.5) gm/dL Hct (39.0-53.0) % MCV (80.0-100.0) fL MCH (25.0-35.0) pg MCHC (31.0-37.0) g/dL RDW (11.5-15.5) % Plt Count (150-450) k/uL Neutrophils % % Lymphocytes % % Monocytes % % Eosinophils % % Basophils % % Neutrophils # (1.3-7.7) k/uL Lymphocytes # (1.0-4.8) k/uL Monocytes # (0-1.0) k/uL Eosinophils # (0-0.7) k/uL Basophils # (0-0.2) k/uL PT (9.0-12.0) sec INR (<1.2) APTT (22.0-30.0) sec Sodium (137-145) mmol/L Potassium (3.5-5.1) mmol/L Chloride (98-107) mmol/L Carbon Dioxide (22-30) mmol/L Anion Gap mmol/L BUN (9-20) mg/dL Creatinine (0.66-1.25) mg/dL Est GFR (CKD-EPI)AfAm (>60 ml/min/1.73 sqM) Est GFR (CKD-EPI)NonAf (>60 ml/min/1.73 sqM) Glucose (74-99) mg/dL Calcium (8.4-10.2) mg/dL Total Bilirubin (0.2-1.3) mg/dL AST (17-59) U/L ALT (21-72) U/L Alkaline Phosphatase (38-126) U/L Creatine Kinase 69 (55-170) U/L Total Protein (6.3-8.2) g/dL Albumin (3.5-5.0) g/dL Urine Opiates Screen Not Detected (NotDetected) Ur Oxycodone Screen Not Detected (NotDetected) Urine Methadone Screen Not Detected (NotDetected) Ur Propoxyphene Screen Not Detected (NotDetected) Ur Barbiturates Screen Detected H (NotDetected) U Tricyclic Antidepress Not Detected (NotDetected) Ur Phencyclidine Scrn Not Detected (NotDetected) Ur Amphetamines Screen Not Detected (NotDetected) U Methamphetamines Scrn Not Detected (NotDetected) U Benzodiazepines Scrn Detected H (NotDetected) Urine Cocaine Screen Not Detected (NotDetected) U Marijuana (THC) Screen Not Detected (NotDetected) Disposition Clinical Impression: Fall, Chest wall contusion, Unstable gait Disposition: ADMITTED IP TO THIS [facility] Condition: Stable Referrals: Ganesh Mcpherson DO [Primary Care Provider] - 1-2 days Decision to Admit Reason: Admit from EC Decision Date: 06/21/17 Decision Time: 20:50
[2017-06-21 17:43] LABS: Basophils % (A) 0 %; Eosinophils # (A) 0.1 k/uL (0-0.7); Eosinophils % (A) 1 %; HCT 37.5 % (39.0-53.0); HGB 12.7 gm/dL (13.0-17.5); Lymphocytes # (A) 1.3 k/uL (1.0-4.8); Lymphocytes % (A) 13 %; MCH 31.6 pg (25.0-35.0); MCHC 33.9 g/dL (31.0-37.0); Mean Platelet Volume 8.5; Monocytes # (A) 0.5 k/uL (0-1.0); Monocytes % (A) 5 %; Neutrophils # (A) 7.9 k/uL (1.3-7.7); Neutrophils % (A) 79 %; Platelet Count 204 k/uL (150-450); RBC 4.03 m/uL (4.30-5.90); RDW 14.4 % (11.5-15.5); WBC 9.9 k/uL (3.8-10.6)
[2017-06-21 17:57] LABS: Potassium 4.3 mmol/L (3.5-5.1)
[2017-06-21 17:58] LABS: Albumin 4.3 g/dL (3.5-5.0); Calcium 9.4 mg/dL (8.4-10.2); Total Bilirubin 0.4 mg/dL (0.2-1.3); Total Protein 7.4 g/dL (6.3-8.2)
[2017-06-21 18:03] LABS: Partial Thromboplastin Time 30.2 sec (22.0-30.0)
[2017-06-21] MEDS ORDERED: MORPHINE SULFATE/PF 10MG/10ML VL IVP STA (19:04)
--- NOTE | 2017-06-21 19:15 | CT ---
EXAMINATION TYPE: CT brain aubrey joshua DATE OF EXAM: 06/21/2017 COMPARISON: 04/05/2017 HISTORY: Fall head injury. Neck pain. Headache. CT DLP: mGycm Automated exposure control for dose reduction was used. TECHNIQUE: CT scan of the head and cervical spine are performed without contrast. FINDINGS: There is mild cerebral cortical atrophy. There is no mass effect nor midline shift. There is no sign of intracranial hemorrhage. Calvarium is intact. The cervical vertebra have fairly normal spacing and alignment. There is anterior bridging osteophyte formation at C5-6 C6-7. There is anterior osteophyte at C2-3. The facet joints are intact. The skull base is intact. There is mild multilevel facet arthropathy. I see no focal bone destruction. IMPRESSION: Mild atrophy. No acute intracranial abnormality. Spondylotic changes in the cervical spine. No fracture seen. No significant change compared to old exam. There is C5-6 bony spinal stenosis due to uncovertebral s purring and facet arthropathy.
--- NOTE | 2017-06-21 20:28 | XR ---
EXAMINATION TYPE: XR hand complete LT DATE OF EXAM: 06/21/2017 COMPARISON: NONE HISTORY: Pain after fall TECHNIQUE: 3 views FINDINGS: Metacarpals appear intact. There is some spurring at the radiocarpal joint. I see no fractu re nor dislocation. There is spurring at the IP joints. IMPRESSION: Mild osteoarthritis. No fracture seen.
--- NOTE | 2017-06-21 20:29 | XR ---
EXAMINATION TYPE: XR chest 2V DATE OF EXAM: 06/21/2017 COMPARISON: 05/04/2017 HISTORY: Pain after falling TECHNIQUE: Frontal and lateral views of the chest are obtained. FINDINGS: There is no heart failure nor confluent pneumonic infiltrate. There are chest leads. Costo phrenic angles are clear. There is spurring in the thoracic spine. IMPRESSION: No active cardiopulmonary disease. No heart failure. No change.
[2017-06-21 20:49] LABS: Appearance,Urine Clear (Clear); Bilirubin,Urine Negative (Negative); Blood,Urine Negative (Negative); Color,Urine Light Yellow; Glucose,Urine (UA) Negative (Negative); Ketones,Urine Negative (Negative); Leukocyte Esterase,Urine Negative (Negative); Nitrite,Urine Negative (Negative); PH, Urine 6.5 (5.0-8.0); Protein,Urine Negative (Negative); Specific Gravity,Urine 1.006 (1.001-1.035); Urobilinogen,Urine <2.0 mg/dL (<2.0)
[2017-06-21 20:58] LABS: Amphetamine Screen,Urine Not Detected (NotDetected); Benzodiazepines Screen,Urine Detected (NotDetected); Cocaine Screen,Urine Not Detected (NotDetected); Opiate Screen,Urine Not Detected (NotDetected); Phencyclidine Screen,Urine Not Detected (NotDetected); Urn Cannabinoid Scrn Not Detected (NotDetected)
[2017-06-21 20:59] LABS: Barbiturate Screen,Urine Detected (NotDetected); Methadone Screen, Urine Not Detected (NotDetected); Oxycodone Screen, Urine Not Detected (NotDetected); Tricyclic Antidepressant,Urine Not Detected (NotDetected)
[2017-06-21] MEDS ORDERED: ONDANSETRON 4 MG/2 ML VIAL IVP PRN (21:19)
[2017-06-21] MEDS ORDERED: NALOXONE 0.4 MG/ML 1 ML VIAL IV PRN (21:19)
[2017-06-21] MEDS: HYDROcodone/APAP 5-325MG 1 EACH TAB PO PRN (23:46)
[2017-06-22] MEDS: acetaZOLAMIDE 250 MG TAB PO SCH ×3 (01:08→21:09)
[2017-06-22] MEDS: HYDROcodone/APAP 5-325MG 1 EACH TAB PO PRN ×5 (04:56→22:38)
[2017-06-22] MEDS: APIXABAN 2.5 MG TABLET PO SCH ×2 (07:50→21:10)
[2017-06-22] MEDS: metFORMIN 500 MG TAB PO SCH ×2 (07:51→21:10)
[2017-06-22] MEDS: LISINOPRIL 20 MG TAB PO SCH (07:51)
[2017-06-22] MEDS: ASPIRIN 81 MG PO SCH (07:51)
[2017-06-22 08:00] LABS: Glucose,Whole Blood 149 mg/dL (75-99)
[2017-06-22 12:01] LABS: Glucose,Whole Blood 121 mg/dL (75-99)
[2017-06-22] MEDS ORDERED: BACLOFEN 10 MG TAB PO PRN (12:46)
[2017-06-22] MEDS: IOPAMIDOL-300 CONTRAST 30 ML VIAL (ORAL USE) PO PRN ×2 (12:58→14:20)
[2017-06-22] MEDS: BUTALB/APAP/CAFF 50-325-40MG TAB PO PRN (13:15)
--- NOTE | 2017-06-22 15:31 | CT ---
EXAMINATION TYPE: CT abdomen pelvis wo con DATE OF EXAM: 06/22/2017 HISTORY: right sided pain with nausea. CT DLP: 1481 mGycm. Automated Exposure Control for Dose Reduction was Utilized. TECHNIQUE: CT scan of the abdomen and pelvis is performed with oral but without IV contrast. COMPARISON: CT abdomen pelvis September 28, 2015 FINDINGS: Within the limitations of a non-contrast study, the following observations are made. LUNG BASES: Coronary artery calcification is present which is noted marker for coronary artery diseas e. There is posterior linear scarring and/or atelectasis in both bases. There is tiny pericardial eff usion. LIVER/GB: No significant abnormality is appreciated. PANCREAS: No significant abnormality is seen. SPLEEN: No significant abnormality is seen. ADRENALS: No significant abnormality is seen. KIDNEYS: Bladder is mildly distended. BOWEL: The oral contrast does not reach colonic level making evaluation of distal bowel slightly subo ptimal. There is no suspicious small or large bowel dilatation seen. There are some diverticula scatt ered throughout the sigmoid colon. There is no CT evidence for acute diverticulitis. GENITAL ORGANS: Central zone calcifications are seen in nonenlarged prostate. A few adjacent pelvic p hleboliths are present.. LYMPH NODES: No greater than 1cm abdominal or pelvic lymph nodes are appreciated. OSSEOUS STRUCTURES: There is moderate to severe multilevel spurring in the spine. Mild to moderate haley int space loss and spurring in both hips is present. OTHER: There is small fat-containing left inguinal hernia. IMPRESSION: No suspicious new or acute finding is seen to account for patient's symptoms of right-iris ed pain.
[2017-06-22 17:10] LABS: Glucose,Whole Blood 146 mg/dL (75-99)
--- NOTE | 2017-06-22 19:25 | HP ---
HISTORY AND PHYSICAL CHIEF COMPLAINT: Weakness, difficulty walking. Bilateral rib pain and abdomen pain. HISTORY OF PRESENT ILLNESS: This 67-year-old with a past medical history of multiple medical problems including atrial fibrillation, diabetes, GERD, hypertension, history of brain stem surgery, being followed by Dr. Mcpherson in the outpatient setting was living by himself apparently. The patient apparently fell at home after slipping and patient also had some unsteadiness also. The patient is complaining of bilateral rib pains and abdominal pain. Patient came to [facility] and admitted to the hospital for further evaluation and treatment. Multiple x-rays has been done. As mentioned earlier, the patient had 2 brain stem surgeries, the last one about one month ago. X-rays including chest x-ray showed no acute abnormality. CT scan of the head and cervical spine showed mild atrophy and no significant changes were noted and abdominal and pelvis CAT scan was also done which showed no suspicious acute findings also noted. There is no history of fever, rigors. No headache, loss of consciousness, seizures at this time. PAST MEDICAL HISTORY: History of atrial fibrillation, diabetes, GERD, hypertension, DJD, History pneumonia, history of back surgery, orthopedic surgery, history of brain stem surgery for vascular decompression. MEDICATIONS: Home medications are: 1. Metformin 500 mg p.o. b.i.d. 2. Diamox 500 mg p.o. daily. 3. Zestril 20 mg p.o. 4. Valium 2 mg q.h.s. 5. Cymbalta 60 mg p.o. daily. 6. Butalbital 1 tab p.o. b.i.d. p.r.n. 7. Lioresal 20 mg p.o. t.i.d. p.r.n. 8. Lipitor 10 mg p.o. q.h.s. 9. Aspirin 81 mg. 10.Eliquis 2.5 mg p.o. b.i.d. ALLERGIES: KEFLEX, CEPHALOSPORIN, PENICILLIN. FAMILY HISTORY: History of CHF and pulmonary hypertension in the family. SOCIAL HISTORY: Previous history of smoking. No history of current smoking or alcohol intake. REVIEW OF SYSTEMS: ENT: No diminished vision. No diminished hearing. Cardiovascular: S1, S2. No angina. Respiratory: As mentioned earlier. GI no nausea or vomiting. no dysuria or hematuria. No retention. Nervous system: As mentioned earlier. Allergy/Immunology: No asthma or hayfever. Musculoskeletal as mentioned earlier. Hematology/Oncology: No history of anemia. Endocrine: No history of diabetes or hypothyroidism. Constitutional: As mentioned earlier. Dermatology: Negative. Rheumatology: Negative. Psychiatric: As mentioned earlier. PHYSICAL EXAMINATION: Alert and oriented times three. Pulse 82. Blood pressure 130/70, respiration 18, temp 97.7, pulse ox 98% on room air. HEENT: Conjunctivae normal. Oral mucosa moist. Neck is no jugular venous distention. No carotid bruit. No lymph node enlargement. Cardiovascular: S1, S2. Respirations: Breath sounds diminished in the bases. A few rhonchi. No crackles. ABDOMEN: Soft, obese, nontender. Mild diffuse discomfort. No guarding. No rigidity. No mass palpable. No ascites. Legs: No edema and no swelling. NERVOUS SYSTEM: Higher functions as mentioned earlier. Moves all 4 limbs. Mild incoordination, mild diffuse weakness. Lymphatics: No lymph nodes palpable in the neck and axilla. Skin no ulcer, rashes or bleeding. LABS: WBC 9.2, hemoglobin 12.7, sodium 140, potassium 4.3, glucose 149. UA noted. ASSESSMENT: 1. Gait dysfunction, fall, possibly multifactorial. Rule out transient ischemic attack. 2. History of recent brain stem surgery for vascular decompression. 3. Anemia, normocytic anemia of chronic disease. 4. History of atrial fibrillation. 5. Diabetes mellitus type 2. 6. Hypertension. 7. History of degenerative joint disease. 8. History of pneumonia. 9. History of mastectomy. 10.Remote history of nicotine dependence. 11.Obesity with body mass of 44.8. 12.History of back surgery. 13.FULL CODE. RECOMMENDATION AND DISCUSSION: This 67-year-old gentleman who presented with multiple complex medical issues, we will monitor the patient closely. Continue the current medications, management and symptomatic treatment. Recommend to resume the home medications. PT/OT evaluation. There is no evidence of any new stroke or any vascular changes, but however, we will obtain the same please add #1 to RO TIA. We will obtain a consultation with Dr. Surya Dunham. I would also continue with full neurovascular workup also. Otherwise PT, OT will also be evaluated and social and political studies professor was also consulted to evaluate the home situation as well. The overall prognosis is guarded because of multiple complex medical issues and further recommendations to follow. Copy of dictation being forwarded to Dr. Mcpherson who is the primary physician. See orders for further details. I would also supplement multivitamins also at this point, even though there is no history of any alcohol intake. See orders for further details. The patient is already on Eliquis as far as DVT prophylaxis is concerned. Symptomatic treatment for the pain also will be offered to the patient. MMODL / IJN: [id number] /
[2017-06-22 20:28] LABS: Hemoglobin A1C 5.6 % (4.0-6.0)
[2017-06-22 20:41] LABS: Glucose,Whole Blood 130 mg/dL (75-99)
[2017-06-22] MEDS: DIAZEPAM 2 MG TAB PO SCH (21:09)
[2017-06-22] MEDS: ATORVASTATIN 10 MG TAB PO SCH (21:10)
[2017-06-23] MEDS: BUTALB/APAP/CAFF 50-325-40MG TAB PO PRN ×2 (00:19→08:20)
[2017-06-23] MEDS: HYDROcodone/APAP 5-325MG 1 EACH TAB PO PRN ×5 (03:37→21:05)
[2017-06-23 07:39] LABS: Glucose,Whole Blood 122 mg/dL (75-99)
[2017-06-23] MEDS: APIXABAN 2.5 MG TABLET PO SCH ×2 (08:18→20:37)
[2017-06-23] MEDS: PANTOPRAZOLE 40 MG TABLET PO SCH (08:18)
[2017-06-23] MEDS: LISINOPRIL 20 MG TAB PO SCH (08:18)
[2017-06-23] MEDS: DULoxetine HCL 60 MG CAPSULE.DR PO SCH (08:18)
[2017-06-23] MEDS: metFORMIN 500 MG TAB PO SCH ×2 (08:19→21:05)
[2017-06-23] MEDS: ASPIRIN 81 MG PO SCH (08:19)
[2017-06-23] MEDS: acetaZOLAMIDE 250 MG TAB PO SCH ×2 (08:19→20:38)
[2017-06-23 08:54] LABS: Basophils % (A) 0 %; Eosinophils # (A) 0.2 k/uL (0-0.7); Eosinophils % (A) 3 %; HCT 37.5 % (39.0-53.0); HGB 12.5 gm/dL (13.0-17.5); Lymphocytes # (A) 1.9 k/uL (1.0-4.8); Lymphocytes % (A) 24 %; MCH 31.3 pg (25.0-35.0); MCHC 33.5 g/dL (31.0-37.0); MCV 93.6 fL (80.0-100.0); Mean Platelet Volume 7.1; Monocytes # (A) 0.5 k/uL (0-1.0); Monocytes % (A) 7 %; Neutrophils % (A) 64 %; Platelet Count 237 k/uL (150-450); RDW 14.4 % (11.5-15.5); WBC 7.8 k/uL (3.8-10.6)
--- NOTE | 2017-06-23 08:58 | US ---
EXAMINATION TYPE: US carotid duplex BILAT DATE OF EXAM: 06/23/2017 COMPARISON: NONE CLINICAL HISTORY: stroke. EXAM MEASUREMENTS: RIGHT: Peak Systolic Velocity (PSV) cm/sec ----- Right CCA: 81.2 ----- Right ICA: 92.2 ----- Right ECA: 103.4 ICA/CCA ratio: 1.1 RIGHT: End Diastole cm/sec ----- Right CCA: 20.8 ----- Right ICA: 28.5 ----- Right ECA: 19.3 LEFT: Peak Systolic Velocity (PSV) cm/sec ----- Left CCA: 114.5 ----- Left ICA: 80.1 ----- Left ECA: 76.8 ICA/CCA ratio: 0.7 LEFT: End Diastole cm/sec ----- Left CCA: 25.7 ----- Left ICA: 18.6 ----- Left ECA: 10.9 VERTEBRALS (direction of flow): Right Vertebral: Antegrade Left Vertebral: Antegrade Rhythm: Normal No significant stenosis seen, no elevated velocities, mild bilateral plaque noted. IMPRESSION: I DO NOT SEE EVIDENCE OF A HEMODYNAMICALLY SIGNIFICANT STENOSIS IN EITHER CAROTID SYSTEM. Criteria for Assigning % of Stenosis / Diameter reduction (Estimation based on the indirect measurements of the internal carotid artery velocities (ICA PSV). 1. Normal (no stenosis)=ICA PSV < 125 cm/s: ratio < 2.0: ICA EDV<40 cm/s. 2. Less than 50% stenosis=ICA PSV < 125 cm/s: ratio < 2.0: ICA EDV<40 cm/s. 3. 50 to 69% stenosis=ICA PSV of 125 to 230 cm/s: ration 2.0 ? 4.0: ICA EDV 40-100 cm/s. 4. Greater than 70% stenosis to near occlusion= ICA PSV > 230 cm/s: ratio > 4.0: ICA EDV > 100 cm/s. 5. Near occlusion= ICA PSV velocities may be low or undetectable: variable ratio and ICA EDV. 6. Total occlusion=unable to detect flow.
[2017-06-23 09:00] LABS: Calcium 9.3 mg/dL (8.4-10.2); Potassium 3.9 mmol/L (3.5-5.1)
[2017-06-23] MEDS: FOLIC ACID 1 MG TAB PO SCH (11:42)
[2017-06-23] MEDS: MULTIVITAMINS, THERA 1 EACH TAB PO SCH (11:42)
[2017-06-23] MEDS: THIAMINE 100 MG TAB PO SCH (11:42)
[2017-06-23 12:48] LABS: Glucose,Whole Blood 125 mg/dL (75-99)
[2017-06-23] MEDS: LACTULOSE 20 GM/30 ML CUP PO SCH ×3 (14:01→20:38)
[2017-06-23] MEDS: DOCUSATE 100 MG CAP PO SCH ×2 (14:02→20:38)
--- NOTE | 2017-06-23 14:19 | P.CNNES ---
History of Present Illness Consult date: 06/23/17 History of Present Illness: The patient is a 77-year-old right-handed white male admitted to the hospital with rib cage pain. He states that on Sunday night he had open the refrigerator to get some orange juice and the Was not tightly closed. He spilled the juice. He usually walks with a walker but had to let go of the walker to mop the floor. The floor was slippery any fell hitting the back of his head. He thinks he may have passed out briefly but is not sure. He does live alone. He doesn't drive. He has a history of recent brain surgery which she took place about 2 months ago and he's had poor balance since then. He had some decompression of a blood vessel in the brainstem. As a result his been extensive balancing issues for the last 2 months. The patient denied any new weakness or numbness or new symptoms. He states he fell because he slipped. His main complaint at this time is bilateral rib cage pain. He does have a history of headache since the brain surgery 2 months ago. He describes it as a sharp stabbing pain in the forehead on the right side occurring at night. Review of Systems Constitutional: Denies chills, Denies fever Eyes: denies blurred vision, denies pain Cardiovascular: Denies chest pain, Denies shortness of breath Respiratory: Denies cough Musculoskeletal: Denies myalgias Neurological: Denies numbness, Denies weakness Past Medical History Past Medical History: Atrial Fibrillation, Diabetes Mellitus, GERD/Reflux, Hypertension, Osteoarthritis (OA), Pneumonia Additional Past Medical History / Comment(s): 03-10-16 FELL/FX RT FIBULA, VERTIGO History of Any Multi-Drug Resistant Organisms: None Reported Past Surgical History: Back Surgery, Orthopedic Surgery Additional Past Surgical History / Comment(s): Bilateral mastectomy with right sided lymp node removal, rt. knee cap removed, back surgery for herniated disc. , Brain stem surgery for decompression-for dizziness, right ankle ORIF Past Anesthesia/Blood Transfusion Reactions: No Reported Reaction Past Psychological History: No Psychological Hx Reported Smoking Status: Former smoker Past Alcohol Use History: None Reported Additional Past Alcohol Use History / Comment(s): STARTED SMOKING AT AGE 18, SMOKE A PIPE GOES THRU A PACK OF PIPE TOBACCO/DAY quit smoking in 2005 Past Drug Use History: None Reported - Past Family History Father History Unknown: Yes Family Medical History: Congestive Heart Failure (CHF) Mother History Unknown: Yes Family Medical History: Hypertension Additional Family Medical History / Comment(s): pulmonary hypertension Medications and Allergies Home Medications Medication Instructions Recorded Confirmed Type Atorvastatin [Lipitor] 10 mg PO HS 10/08/15 06/21/17 History Lisinopril [Zestril] 20 mg PO DAILY 10/08/15 06/21/17 History DULoxetine HCL [Duloxetine HCl] 60 mg PO DAILY 03/10/16 06/21/17 History Baclofen [Lioresal] 20 mg PO TID PRN 04/03/17 06/21/17 History acetaZOLAMIDE [Diamox Sequels] 500 mg PO Q12H 04/03/17 06/21/17 History Aspirin [Children's Aspirin] 81 mg PO DAILY 05/04/17 06/21/17 History Butalb/APAP/Caff 50-325-40Mg 1 tab PO BID PRN 05/04/17 06/21/17 History [Fioricet 50-325-40] Apixaban [Eliquis] 2.5 mg PO BID 06/21/17 06/21/17 History Diazepam [Valium] 2 mg PO HS 06/21/17 06/21/17 History metFORMIN HCL [Glucophage] 500 mg PO BID 06/21/17 06/21/17 History Allergies Allergy/AdvReac Type Severity Reaction Status Date / Time cephalexin monohydrate Allergy Anaphylaxis Verified 05/04/17 07:43 [From Keflex] Cephalosporins Allergy Unknown Verified 05/04/17 07:43 Penicillins Allergy Anaphylaxis Verified 05/04/17 07:43 Physical Examination - Vital Signs Vital Signs: Vital Signs Temp Pulse Resp BP Pulse Ox 06/23/17 09:46 97.3 F L 06/23/17 06:40 100.0 F H 85 16 130/73 96 06/22/17 23:00 97.8 F 82 16 126/72 98 06/22/17 15:00 97.7 F 82 18 136/71 96 Intake and Output 06/22/17 06/23/17 06/23/17 22:59 06:59 14:59 Output Total 1800 1800 900 Balance -1800 -1800 -900 Output: Urine 1800 1800 900 Other: Voiding Method Urinal # Bowel Movements 0 - Constitutional General appearance: obese - EENT EENT: PERRL, hearing intact, vision intact - Respiratory Respiratory: lungs clear - Cardiovascular Cardiovascular: regular rate, normal S1, normal S2 - Neurologic Mental status he was awake alert and oriented. He answered questions appropriately. There is no a aphasia or dysarthria. Cranial nerve examination: PERRL, V1/V2/V3 grossly intact, face symmetric, tongue midline Detailed motor examination: grossly full strength in all extremities Cerebellar examination: dysmetria - Psychiatric Psychiatric: mood/affect appropriate Results - Laboratory Findings CBC and BMP: 06/23/17 07:34 06/23/17 07:34 Abnormal Lab Findings: Abnormal Labs 06/21/17 06/21/17 06/21/17 17:30 17:30 17:30 RBC 4.03 L Hgb 12.7 L Hct 37.5 L Neutrophils # 7.9 H APTT 30.2 H Chloride 110 H Carbon Dioxide 19 L BUN 22 H Glucose 130 H POC Glucose (mg/dL) AST 15 L Ur Barbiturates Screen U Benzodiazepines Scrn 06/21/17 06/22/17 06/22/17 20:35 07:41 11:36 RBC Hgb Hct Neutrophils # APTT Chloride Carbon Dioxide BUN Glucose POC Glucose (mg/dL) 149 H 121 H AST Ur Barbiturates Screen Detected H U Benzodiazepines Scrn Detected H 06/22/17 06/22/17 06/23/17 16:44 20:40 07:29 RBC Hgb Hct Neutrophils # APTT Chloride Carbon Dioxide BUN Glucose POC Glucose (mg/dL) 146 H 130 H 122 H AST Ur Barbiturates Screen U Benzodiazepines Scrn 06/23/17 06/23/17 06/23/17 07:34 07:34 12:27 RBC 4.00 L Hgb 12.5 L Hct 37.5 L Neutrophils # APTT Chloride 108 H Carbon Dioxide 19 L BUN Glucose 115 H POC Glucose (mg/dL) 125 H AST Ur Barbiturates Screen U Benzodiazepines Scrn Assessment and Plan (1) Fall Current Visit: Yes Status: Acute SNOMED Code(s): 5312658 (2) Unstable gait Current Visit: Yes Status: Acute SNOMED Code(s): 35223864 (3) Headache Current Visit: Yes Status: Acute SNOMED Code(s): 15933111 Plan: The patient is a 67-year-old man admitted to the hospital with multiple medical problems and history of recent fall with bilateral rib cage pain. Neurology was requested to see the patient to rule out TIA. The patient reports she slipped and fell and there is no preceding neurologic symptoms such as focal weakness numbness or new balance issues. He has had poor balance ever since his brainstem surgery 2 months ago and for this he is getting home PT. He did get a CT of the brain which showed no acute abnormality.
--- NOTE | 2017-06-23 14:22 | ECHOF ---
Referral Reason:Stroke MEASUREMENTS -------- HEIGHT: 170.2 cm WEIGHT: 129.7 kg BP: 130/73 RVIDd: 3.4 cm (< 3.3) IVSd: 1.5 cm (0.6 - 1.1) LVIDd: 4.3 cm (3.9 - 5.3) LVPWd: 1.5 cm (0.6 - 1.1) IVSs: 1.8 cm LVIDs: 3.6 cm LVPWs: 1.8 cm LA Diam: 2.6 cm (2.7 - 3.8) Ao Diam: 3.2 cm (2.0 - 3.7) AV Cusp: 2.0 cm (1.5 - 2.6) LA Diam: 3.3 cm (2.7 - 3.8) MV E Blaine: 0.82 m/s MV DecT: 277 ms MV A Blaine: 1.21 m/s MV E/A Ratio: 0.67 FINDINGS -------- Sinus rhythm. This was a technically difficult study with suboptimal views. The left ventricular size is normal. There is moderate concentric left ventricular hypertrophy. O verall left ventricular systolic function is normal with, an EF between 55 - 60 %. The right ventricle is mildly enlarged. The left atrial size is normal. The right atrium was not well visualized. 5ml of Lumason was utilized for enhancement of images. The aortic valve was not well visualized. There is no evidence of aortic regurgitation. There is no evidence of aortic stenosis. The mitral valve was not well visualized. There is trace to mild mitral regurgitation. Trace tricuspid regurgitation present. Right ventricular systolic pressure is normal at < 35 mmHg. There is no evidence of pulmonary hypertension. The pulmonic valve was not well visualized. The aortic root size is normal. Normal inferior vena cava with normal inspiratory collapse consistent with estimated right atrial pre ssure of 5 mmHg. The pericardium is normal. There is no pericardial effusion. CONCLUSIONS -------- 1. Sinus rhythm. 2. This was a technically difficult study with suboptimal views. 3. The left ventricular size is normal. 4. There is moderate concentric left ventricular hypertrophy. 5. Overall left ventricular systolic function is normal with, an EF between 55 - 60 %. 6. The right ventricle is mildly enlarged. 7. The left atrial size is normal. 8. The right atrium was not well visualized. 9. 5ml of Lumason was utilized for enhancement of images. 10. The aortic valve was not well visualized. 11. There is trace to mild mitral regurgitation. 12. Trace tricuspid regurgitation present. 13. Right ventricular systolic pressure is normal at < 35 mmHg. 14. There is no evidence of pulmonary hypertension. 15. The pulmonic valve was not well visualized. 16. The aortic root size is normal. 17. There is no pericardial effusion. RELATIONSHIP ASS[employer]: Antonio Brandon RDCS
--- NOTE | 2017-06-23 14:54 | P.PN ---
Progress Note - Text Progress Note Date: 06/23/17 Patient seen and evaluated. No nausea or vomiting. Reports left sided pain and along the epigastrium. He also reported a bulge and concern for a hernia. Patient has history of a fall. CT of the abdomen and pelvis images reviewed with the patient. Findings show diastasis recti. No internal injuries. Muscular bruising consistent with history. Recommend NSAIDs for pain as long as no moderate renal impairment. No surgical intervention.
--- NOTE | 2017-06-23 16:43 | PN ---
PROGRESS NOTE DATE OF SERVICE: 06/23/2017. INTERVAL HISTORY: This 67-year-old gentleman who was admitted with gait dysfunction also complaining of abdominal pain. The patient also had recent brain surgery also. Patient also had gait dysfunction. Neurology following the patient closely. The patient has a diastasis recti. No chest pain. No palpitations. No fever. PHYSICAL EXAM: Alert and oriented times three. Pulse 85, blood pressure 137/60, respiration 16, temperature 100 degrees, pulse ox 96% on room air. HEENT: Conjunctivae normal. NECK: No jugular venous distention. Cardiovascular: S1, S2. Respirations: Breath sounds diminished in the bases. Few rhonchi. No crackles. ABDOMEN: Soft. Rectal diastasis present. Otherwise legs no edema and no swelling. Central nervous system: No focal deficits. Mild diffuse weakness. LABS: WBC 7.2, hemoglobin 12.5. ASSESSMENT: 1. Gait dysfunction, fall, possibly multifactorial, rule out transient ischemic attack. 2. History of recent brainstem surgery for vascular decompression. 3. Anemia, normocytic anemia of chronic disease. 4. Abdominal pain and rectal diastasis. 5. History of atrial fibrillation. 6. Diabetes type 2. 7. Hypertension. 8. History of degenerative joint disease. 9. History pneumonia. 10.History of mastectomy. 11.Remote history of nicotine dependence. 12.Obesity with body mass index of 44.8. 13.History of back surgery. 14.FULL CODE. RECOMMENDATIONS AND DISCUSSION: Recommend to continue current medications, management and symptomatic treatment. Otherwise, at this time, I recommend continue with PT/OT evaluation. Symptomatic treatment. Evaluate for possible ECF rehab. Otherwise prognosis guarded. Further recommendations to follow. MMODL / IJN: [id number] /
[2017-06-23 17:18] LABS: Glucose,Whole Blood 113 mg/dL (75-99)
--- NOTE | 2017-06-23 18:14 | P.GSCN ---
History of Present Illness Consult date: 06/23/17 History of present illness: CHIEF COMPLAINT: Abdominal pain HISTORY OF PRESENT ILLNESS: The patient is a 67-year-old gentleman who was brought in by EMS following a fall yesterday. He had workup including a CT of the abdomen and pelvis. He had reported developing new right upper quadrant including epigastric and left upper quadrant abdominal pain. No reports of nausea and vomiting. Reports left sided pain and along the epigastrium. He also reported a bulge and concern for a hernia. As a result of his pain, Gen. surgery consultation is sought. PAST MEDICAL HISTORY: See list. PAST SURGICAL HISTORY: See list. MEDICATIONS: See list. ALLERGIES: See list. SOCIAL HISTORY: No active tobacco use. FAMILY HISTORY: Significant for morbid obesity REVIEW OF ORGAN SYSTEMS: CONSTITUTIONAL: No fevers or chills. HEENT: No troubles with vision or hearing. No reports of dysphagia. ENDOCRINE: No reports of thyroid disorders. He does have diabetes. CARDIOVASCULAR: History of atrial fibrillation. No recent chest pain. RESPIRATORY: No asthma or pneumonia. GASTROINTESTINAL: No reports of recent blood in stools. NEURO: No reports of stroke or seizure disorders. PSYCH: Has depression. Has anxiety. HEMATOLOGIC: He is on a blood thinner, Eliquis. LYMPHATIC: The patient denies any lumps and bumps around the neck. GENITOURINARY: Denies any blood in urine or increased urinary frequency. MUSCULOSKELETAL: Has back pain, stiffness or joint arthritis. PHYSICAL EXAM: VITAL SIGNS: Currently stable. GENERAL: Well-developed male in no acute distress. HEENT: No sclera icterus. Extraocular movements grossly intact. Moist buccal mucosa. Head is atraumatic, normocephalic. Hears conversational speech. No nasal drainage. NECK: Supple without lymphadenopathy. CHEST: Non-labored respirations and equal bilateral excursions. CARDIOVASCULAR: Irregular rate with irregular rhythm. Palpable 2+ radial pulses. ABDOMEN: Soft. Nondistended. Obese. Mild epigastric discomfort without peritonitis. MUSCULOSKELETAL: No clubbing, cyanosis or edema. NEUROLOGIC: No focal or lateralizing signs. Cranial nerves II through XII grossly intact. PSYCH: Appropriate affect. Alert and oriented to person, place and time. LABS: Reviewed STUDIES: Reviewed demonstrating no acute hernia ASSESSMENT: 1. Morbid obesity. 2. Body mass index 44.8 3. Epigastric abdominal pain 4. Cardiomyopathy. 5. Atrial fibrillation 6. History of fall PLAN: 1. CT of the abdomen and pelvis images reviewed with the patient. Findings show diastasis recti. No internal injuries. 2. Muscular bruising consistent with history. 3. Recommend NSAIDs for pain as long as no moderate renal impairment. 4. No surgical intervention. Past Medical History Past Medical History: Atrial Fibrillation, Diabetes Mellitus, GERD/Reflux, Hypertension, Osteoarthritis (OA), Pneumonia Additional Past Medical History / Comment(s): 03-10-16 FELL/FX RT FIBULA, VERTIGO History of Any Multi-Drug Resistant Organisms: None Reported Past Surgical History: Back Surgery, Orthopedic Surgery Additional Past Surgical History / Comment(s): Bilateral mastectomy with right sided lymp node removal, rt. knee cap removed, back surgery for herniated disc. , Brain stem surgery for decompression-for dizziness, right ankle ORIF Past Anesthesia/Blood Transfusion Reactions: No Reported Reaction Past Psychological History: No Psychological Hx Reported Smoking Status: Former smoker Past Alcohol Use History: None Reported Additional Past Alcohol Use History / Comment(s): STARTED SMOKING AT AGE 18, SMOKE A PIPE GOES THRU A PACK OF PIPE TOBACCO/DAY quit smoking in 2005 Past Drug Use History: None Reported - Past Family History Father History Unknown: Yes Family Medical History: Congestive Heart Failure (CHF) Mother History Unknown: Yes Family Medical History: Hypertension Additional Family Medical History / Comment(s): pulmonary hypertension Medications and Allergies Home Medications Medication Instructions Recorded Confirmed Type Atorvastatin [Lipitor] 10 mg PO HS 10/08/15 06/21/17 History Lisinopril [Zestril] 20 mg PO DAILY 10/08/15 06/21/17 History DULoxetine HCL [Duloxetine HCl] 60 mg PO DAILY 03/10/16 06/21/17 History Baclofen [Lioresal] 20 mg PO TID PRN 04/03/17 06/21/17 History acetaZOLAMIDE [Diamox Sequels] 500 mg PO Q12H 04/03/17 06/21/17 History Aspirin [Children's Aspirin] 81 mg PO DAILY 05/04/17 06/21/17 History Butalb/APAP/Caff 50-325-40Mg 1 tab PO BID PRN 05/04/17 06/21/17 History [Fioricet 50-325-40] Apixaban [Eliquis] 2.5 mg PO BID 06/21/17 06/21/17 History Diazepam [Valium] 2 mg PO HS 06/21/17 06/21/17 History metFORMIN HCL [Glucophage] 500 mg PO BID 06/21/17 06/21/17 History Allergies Allergy/AdvReac Type Severity Reaction Status Date / Time cephalexin monohydrate Allergy Anaphylaxis Verified 05/04/17 07:43 [From Keflex] Cephalosporins Allergy Unknown Verified 05/04/17 07:43 Penicillins Allergy Anaphylaxis Verified 05/04/17 07:43 Surgical - Exam Vital Signs Temp Pulse Resp BP Pulse Ox 98.2 F 77 19 119/72 97 06/21/17 17:19 06/21/17 17:19 06/21/17 17:19 06/21/17 17:19 06/21/17 17:19 Results - Labs 06/23/17 07:34 06/23/17 07:34 Abnormal Lab Results - Last 24 Hours (Table) 06/22/17 06/22/17 06/23/17 Range/Units 16:44 20:40 07:29 RBC (4.30-5.90) m/uL Hgb (13.0-17.5) gm/dL Hct (39.0-53.0) % Chloride (98-107) mmol/L Carbon Dioxide (22-30) mmol/L Glucose (74-99) mg/dL POC Glucose (mg/dL) 146 H 130 H 122 H (75-99) mg/dL 06/23/17 06/23/17 06/23/17 Range/Units 07:34 07:34 12:27 RBC 4.00 L (4.30-5.90) m/uL Hgb 12.5 L (13.0-17.5) gm/dL Hct 37.5 L (39.0-53.0) % Chloride 108 H (98-107) mmol/L Carbon Dioxide 19 L (22-30) mmol/L Glucose 115 H (74-99) mg/dL POC Glucose (mg/dL) 125 H (75-99) mg/dL Diabetes panel 06/21/17 06/23/17 Range/Units 17:30 07:34 Sodium 144 (137-145) mmol/L Potassium 3.9 (3.5-5.1) mmol/L Chloride 108 H (98-107) mmol/L Carbon Dioxide 19 L (22-30) mmol/L BUN 20 (9-20) mg/dL Creatinine 1.10 (0.66-1.25) mg/dL Glucose 115 H (74-99) mg/dL Hemoglobin A1c 5.6 (4.0-6.0) % Calcium 9.3 (8.4-10.2) mg/dL Calcium panel 06/23/17 Range/Units 07:34 Calcium 9.3 (8.4-10.2) mg/dL Pituitary panel 06/23/17 Range/Units 07:34 Sodium 144 (137-145) mmol/L Potassium 3.9 (3.5-5.1) mmol/L Chloride 108 H (98-107) mmol/L Carbon Dioxide 19 L (22-30) mmol/L BUN 20 (9-20) mg/dL Creatinine 1.10 (0.66-1.25) mg/dL Glucose 115 H (74-99) mg/dL Calcium 9.3 (8.4-10.2) mg/dL Adrenal panel 06/23/17 Range/Units 07:34 Sodium 144 (137-145) mmol/L Potassium 3.9 (3.5-5.1) mmol/L Chloride 108 H (98-107) mmol/L Carbon Dioxide 19 L (22-30) mmol/L BUN 20 (9-20) mg/dL Creatinine 1.10 (0.66-1.25) mg/dL Glucose 115 H (74-99) mg/dL Calcium 9.3 (8.4-10.2) mg/dL Assessment and Plan (1) Diastasis recti Current Visit: Yes Status: Acute Code(s): M62.08 - SEPARATION OF MUSCLE ( NONTRAUMATIC), OTHER SITE SNOMED Code(s): 76859230 (2) Atrial fibrillation Current Visit: Yes Status: Acute Code(s): I48.91 - UNSPECIFIED ATRIAL FIBRILLATION SNOMED Code(s): 18033027 (3) Epigastric abdominal pain Current Visit: Yes Status: Acute Code(s): R10.13 - EPIGASTRIC PAIN SNOMED Code(s): 51278819 (4) Left upper quadrant pain Current Visit: Yes Status: Acute Code(s): R10.12 - LEFT UPPER QUADRANT PAIN SNOMED Code(s): 592862015 (5) Right upper quadrant abdominal pain Current Visit: Yes Status: Acute Code(s): R10.11 - RIGHT UPPER QUADRANT PAIN SNOMED Code(s): 015738991 (6) Fall Current Visit: Yes Status: Acute Code(s): W19.XXXA - UNSPECIFIED FALL, INITIAL ENCOUNTER SNOMED Code(s): 0016655 (7) Morbid obesity Current Visit: No Status: Acute Code(s): E66.01 - MORBID (SEVERE) OBESITY DUE TO EXCESS CALORIES SNOMED Code(s): 637603975 (8) Recurrent falls Current Visit: No Status: Acute Code(s): R29.6 - REPEATED FALLS SNOMED Code(s): 506390199
[2017-06-23] MEDS: ATORVASTATIN 10 MG TAB PO SCH (20:37)
[2017-06-23] MEDS: DIAZEPAM 2 MG TAB PO SCH (20:38)
[2017-06-23 20:44] LABS: Glucose,Whole Blood 132 mg/dL (75-99)
[2017-06-24] MEDS: HYDROcodone/APAP 5-325MG 1 EACH TAB PO PRN ×3 (01:20→20:49)
[2017-06-24] MEDS: HYDROmorphone 2 MG TAB PO PRN ×3 (02:38→15:22)
[2017-06-24 07:12] LABS: Glucose,Whole Blood 126 mg/dL (75-99)
[2017-06-24 08:20] LABS: Basophils % (A) 0 %; Eosinophils # (A) 0.3 k/uL (0-0.7); Eosinophils % (A) 3 %; HCT 38.6 % (39.0-53.0); HGB 12.6 gm/dL (13.0-17.5); Lymphocytes # (A) 2.1 k/uL (1.0-4.8); Lymphocytes % (A) 23 %; MCH 30.6 pg (25.0-35.0); MCHC 32.6 g/dL (31.0-37.0); MCV 93.7 fL (80.0-100.0); Mean Platelet Volume 7.3; Monocytes # (A) 0.6 k/uL (0-1.0); Monocytes % (A) 6 %; Neutrophils % (A) 65 %; Platelet Count 231 k/uL (150-450); RBC 4.12 m/uL (4.30-5.90); RDW 14.4 % (11.5-15.5); WBC 9.1 k/uL (3.8-10.6)
[2017-06-24 08:44] LABS: Calcium 9.3 mg/dL (8.4-10.2); Potassium 3.6 mmol/L (3.5-5.1)
[2017-06-24] MEDS: BUTALB/APAP/CAFF 50-325-40MG TAB PO PRN ×2 (09:09→19:43)
[2017-06-24] MEDS: acetaZOLAMIDE 250 MG TAB PO SCH ×2 (10:41→20:45)
[2017-06-24] MEDS: ASPIRIN 81 MG PO SCH (10:42)
[2017-06-24] MEDS: PANTOPRAZOLE 40 MG TABLET PO SCH (10:42)
[2017-06-24] MEDS: metFORMIN 500 MG TAB PO SCH ×2 (10:42→20:45)
[2017-06-24] MEDS: DULoxetine HCL 60 MG CAPSULE.DR PO SCH (10:42)
[2017-06-24] MEDS: LISINOPRIL 20 MG TAB PO SCH (10:42)
[2017-06-24] MEDS: DOCUSATE 100 MG CAP PO SCH ×2 (10:43→20:46)
[2017-06-24] MEDS: APIXABAN 2.5 MG TABLET PO SCH ×2 (10:43→20:46)
[2017-06-24] MEDS: LACTULOSE 20 GM/30 ML CUP PO SCH ×3 (10:43→20:46)
[2017-06-24 11:32] LABS: Glucose,Whole Blood 148 mg/dL (75-99)
--- NOTE | 2017-06-24 11:51 | P.PN ---
Subjective Progress Note Date: 06/24/17 Principal diagnosis: Fall with gait dysfunction This is a 67-year-old male patient who was admitted to the hospital after a fall at home. The patient states that he was in the kitchen retrieving something from the refrigerator when he had to let go of his walker to sisal picker something he dropped. He became unsteady and slipped and fell. He did not sustain any injuries other than bruises. He continues to have right chest discomfort over his ribs but no fractures were identified. The patient has a known history of a recent brain surgery and has been unsteady since his surgery. He is receiving PT OT services at home. He lives alone. He denies any dizziness or chest discomfort prior to his fall. He did not lose consciousness. He feels well this morning other than being sore from his fall. He is planning on going home with home care services and I did discuss with him possible rehabilitation and he is declining at this time. Objective - Vital Signs Vital signs: Vital Signs Temp 97.8 F 06/24/17 05:46 Pulse 77 06/24/17 05:46 Resp 16 06/24/17 05:46 BP 119/73 06/24/17 05:46 Pulse Ox 96 06/24/17 05:46 Intake & Output 06/23/17 06/24/17 06/24/17 18:59 06:59 18:59 Intake Total 660 Output Total 1900 1200 Balance -1240 -1200 Intake: Oral 660 Output: Urine 1900 1200 Other: Voiding Method Urinal # Bowel Movements 2 - Constitutional General appearance: Present: obese - EENT Eyes: Present: normal appearance ENT: Present: normal oropharynx Ears: bilateral: normal - Neck Neck: Present: normal ROM - Respiratory Respiratory: right: other (Tenderness laterally across lower ribs), bilateral: CTA - Cardiovascular Rhythm: irregularly irregular Heart sounds: normal: S1, S2 - Gastrointestinal General gastrointestinal: Present: distended, soft Localized gastrointestinal: tender: LUQ - Integumentary Integumentary: Present: normal - Neurologic Neurologic: Present: CNII-XII intact - Musculoskeletal Musculoskeletal: Present: generalized weakness - Psychiatric Psychiatric: Present: A&O x's 3 - Labs CBC & Chem 7: 06/24/17 07:21 06/24/17 07:21 Labs: Abnormal Lab Results - Last 24 Hours (Table) 06/23/17 06/23/17 06/23/17 Range/Units 12:27 17:03 20:43 RBC (4.30-5.90) m/uL Hgb (13.0-17.5) gm/dL Hct (39.0-53.0) % Carbon Dioxide (22-30) mmol/L Glucose (74-99) mg/dL POC Glucose (mg/dL) 125 H 113 H 132 H (75-99) mg/dL 06/24/17 06/24/17 06/24/17 Range/Units 07:10 07:21 07:21 RBC 4.12 L (4.30-5.90) m/uL Hgb 12.6 L (13.0-17.5) gm/dL Hct 38.6 L (39.0-53.0) % Carbon Dioxide 19 L (22-30) mmol/L Glucose 115 H (74-99) mg/dL POC Glucose (mg/dL) 126 H (75-99) mg/dL 06/24/17 Range/Units 11:30 RBC (4.30-5.90) m/uL Hgb (13.0-17.5) gm/dL Hct (39.0-53.0) % Carbon Dioxide (22-30) mmol/L Glucose (74-99) mg/dL POC Glucose (mg/dL) 148 H (75-99) mg/dL Assessment and Plan Assessment: Multiple falls with gait dysfunction History of recent brain stem surgery for vascular decompression Chronic anemia Right chest and left upper quadrant pain due to fall History of chronic persistent atrial fibrillation Diabetes type 2 Hypertension DJD Obesity Plan: Continue current medication regimen. Pain medication as needed. Physical and occupational therapy evaluation. I did offer the patient possible rehabilitation and he is declining. He is planning on going back home with home care services. We will wait for physical and occupational therapies recommendations. Continue with GI and DVT prophylaxis. Neurology is evaluation and recommendations appreciated. We will continue to follow him closely.
[2017-06-24] MEDS: THIAMINE 100 MG TAB PO SCH (13:55)
[2017-06-24] MEDS: FOLIC ACID 1 MG TAB PO SCH (13:55)
[2017-06-24] MEDS: MULTIVITAMINS, THERA 1 EACH TAB PO SCH (13:55)
[2017-06-24 14:34] VITALS: RESP 18
--- NOTE | 2017-06-24 14:42 | P.PN ---
Subjective Progress Note Date: 06/24/17 Patient is a 67-year-old gentleman who comes in with recurrent falls. Incidentally he had complained of left upper quadrant and epigastric pain. Computed tomography scan was unremarkable for acute injury. Clinical features consistent with diastases recti. He still reports pain. He is on Eliquis for which Toradol is contraindicated. Objective - Vital Signs Vital signs: Vital Signs Temp 97.8 F 06/24/17 14:34 Pulse 81 06/24/17 14:34 Resp 18 06/24/17 14:34 BP 116/59 06/24/17 14:34 Pulse Ox 95 06/24/17 14:34 Intake & Output 06/23/17 06/24/17 06/24/17 18:59 06:59 18:59 Intake Total 660 Output Total 1900 1200 600 Balance -1240 -1200 -600 Intake: Oral 660 Output: Urine 1900 1200 600 Other: Voiding Method Urinal # Voids 2 # Bowel Movements 2 - Exam GENERAL: Well developed and in no acute distress. HEENT: No sclera icterus. Extraocular movements grossly intact. Moist buccal mucosa. Head is atraumatic, normocephalic. Hears conversational speech. No nasal drainage. NECK: Supple without lymphadenopathy. CHEST: Non-labored respirations and equal bilateral excursions. CARDIOVASCULAR: Irregular rate and rhythm. Palpable 2+ radial pulses. ABDOMEN: Soft, tender along the epigastrium and left upper quadrant. No peritonitis MUSCULOSKELETAL: No clubbing, cyanosis or edema. NEUROLOGIC: No focal or lateralizing signs. PSYCH: Appropriate affect. Alert and oriented to person, place and time. SKIN: Good skin turgor. Well perfused. - Labs CBC & Chem 7: 06/24/17 07:21 06/24/17 07:21 Labs: Abnormal Lab Results - Last 24 Hours (Table) 06/23/17 06/23/17 06/24/17 Range/Units 17:03 20:43 07:10 RBC (4.30-5.90) m/uL Hgb (13.0-17.5) gm/dL Hct (39.0-53.0) % Carbon Dioxide (22-30) mmol/L Glucose (74-99) mg/dL POC Glucose (mg/dL) 113 H 132 H 126 H (75-99) mg/dL 06/24/17 06/24/17 06/24/17 Range/Units 07:21 07:21 11:30 RBC 4.12 L (4.30-5.90) m/uL Hgb 12.6 L (13.0-17.5) gm/dL Hct 38.6 L (39.0-53.0) % Carbon Dioxide 19 L (22-30) mmol/L Glucose 115 H (74-99) mg/dL POC Glucose (mg/dL) 148 H (75-99) mg/dL - Imaging and Cardiology CT scan - abdomen: report reviewed, image reviewed CT scan - pelvis: report reviewed, image reviewed (CT of the abdomen and pelvis reviewed consistent with bilateral inguinal hernias. No acute injury found along the left upper quadrant and epigastrium.) Assessment and Plan (1) Diastasis recti Current Visit: Yes Status: Acute Code(s): M62.08 - SEPARATION OF MUSCLE ( NONTRAUMATIC), OTHER SITE SNOMED Code(s): 19576313 (2) Atrial fibrillation Current Visit: Yes Status: Acute Code(s): I48.91 - UNSPECIFIED ATRIAL FIBRILLATION SNOMED Code(s): 44205290 (3) Epigastric abdominal pain Current Visit: Yes Status: Acute Code(s): R10.13 - EPIGASTRIC PAIN SNOMED Code(s): 64690084 (4) Left upper quadrant pain Current Visit: Yes Status: Acute Code(s): R10.12 - LEFT UPPER QUADRANT PAIN SNOMED Code(s): 960209522 (5) Right upper quadrant abdominal pain Current Visit: Yes Status: Acute Code(s): R10.11 - RIGHT UPPER QUADRANT PAIN SNOMED Code(s): 041145146 (6) Fall Current Visit: Yes Status: Acute Code(s): W19.XXXA - UNSPECIFIED FALL, INITIAL ENCOUNTER SNOMED Code(s): 4275494 (7) Morbid obesity Current Visit: No Status: Acute Code(s): E66.01 - MORBID (SEVERE) OBESITY DUE TO EXCESS CALORIES SNOMED Code(s): 781719527 (8) Recurrent falls Current Visit: No Status: Acute Code(s): R29.6 - REPEATED FALLS SNOMED Code(s): 647573751 (9) Inguinal hernia bilateral, non-recurrent Current Visit: Yes Status: Acute Code(s): K40.20 - BI INGUINAL HERNIA, W/O OBST OR GANGRENE, NOT SPCF RECUR SNOMED Code(s): 24753833 Plan: 1. CT findings including bilateral inguinal hernias were reviewed however he is currently asymptomatic. 2. For his muscular pain, Toradol or NSAIDs would be of benefit. This is contraindicated with his blood thinner. 3. Recommend Tylenol as an alternative. 4. No acute surgical intervention. 5. Patient may follow up as outpatient regarding bilateral inguinal hernia repair
[2017-06-24 17:05] LABS: Glucose,Whole Blood 123 mg/dL (75-99)
[2017-06-24 20:37] LABS: Glucose,Whole Blood 138 mg/dL (75-99)
[2017-06-24] MEDS: DIAZEPAM 2 MG TAB PO SCH (20:45)
[2017-06-24] MEDS: ATORVASTATIN 10 MG TAB PO SCH (20:46)
[2017-06-25] MEDS: HYDROcodone/APAP 5-325MG 1 EACH TAB PO PRN (06:35)
[2017-06-25 07:00] LABS: Glucose,Whole Blood 125 mg/dL (75-99)
[2017-06-25 07:19] VITALS: BP 125/70; PULSE 77; TEMP 97.8
[2017-06-25 07:58] LABS: Basophils % (A) 1 %; Eosinophils # (A) 0.4 k/uL (0-0.7); Eosinophils % (A) 4 %; HCT 39.1 % (39.0-53.0); HGB 12.9 gm/dL (13.0-17.5); Lymphocytes # (A) 1.7 k/uL (1.0-4.8); Lymphocytes % (A) 19 %; MCH 30.6 pg (25.0-35.0); MCV 92.6 fL (80.0-100.0); Mean Platelet Volume 7.4; Monocytes # (A) 0.5 k/uL (0-1.0); Monocytes % (A) 5 %; Neutrophils # (A) 6.2 k/uL (1.3-7.7); Neutrophils % (A) 70 %; Platelet Count 233 k/uL (150-450); RBC 4.22 m/uL (4.30-5.90); RDW 14.2 % (11.5-15.5); WBC 8.9 k/uL (3.8-10.6)
[2017-06-25 08:25] LABS: Calcium 9.3 mg/dL (8.4-10.2); Potassium 3.7 mmol/L (3.5-5.1)
[2017-06-25] MEDS: APIXABAN 2.5 MG TABLET PO SCH (08:37)
[2017-06-25] MEDS: DULoxetine HCL 60 MG CAPSULE.DR PO SCH (08:38)
[2017-06-25] MEDS: LISINOPRIL 20 MG TAB PO SCH (08:38)
[2017-06-25] MEDS: DOCUSATE 100 MG CAP PO SCH (08:38)
[2017-06-25] MEDS: ASPIRIN 81 MG PO SCH (08:38)
[2017-06-25] MEDS: metFORMIN 500 MG TAB PO SCH (08:38)
[2017-06-25] MEDS: LACTULOSE 20 GM/30 ML CUP PO SCH (08:38)
[2017-06-25] MEDS: PANTOPRAZOLE 40 MG TABLET PO SCH (08:39)
[2017-06-25] MEDS: BUTALB/APAP/CAFF 50-325-40MG TAB PO PRN (08:45)
[2017-06-25] MEDS: acetaZOLAMIDE 250 MG TAB PO SCH (09:58)
[2017-06-25] MEDS: FOLIC ACID 1 MG TAB PO SCH (11:24)
[2017-06-25] MEDS: HYDROmorphone 2 MG TAB PO PRN (11:24)
[2017-06-25] MEDS: MULTIVITAMINS, THERA 1 EACH TAB PO SCH (11:24)
[2017-06-25] MEDS: THIAMINE 100 MG TAB PO SCH (11:24)
[2017-06-25 12:47] LABS: Glucose,Whole Blood 121 mg/dL (75-99)
--- NOTE | 2017-06-25 14:51 | P.DS ---
Providers Date of admission: 06/21/17 21:19 Attending physician: Faviola Moses Consults: 06/22/17 12:44 Consult Physician Routine Consulting Provider: Carolyne Dunham Consult Reason/Comments: falls at home. unsteady Do you want consulting provider notified?: Yes 06/23/17 14:38 Consult Physician Routine Consulting Provider: Echo Romano Consult Reason/Comments: abdominal hernia Do you want consulting provider notified?: Yes Primary care physician: Ganesh [facility] Course: 67-year-old male patient who was admitted to the hospital after a fall at home. The patient states that he was in the kitchen retrieving something from the refrigerator when he had to let go of his walker to tile picker something he dropped. He became unsteady and slipped and fell. He did not sustain any injuries other than bruises. He continues to have right chest discomfort over his ribs but no fractures were identified. The patient has a known history of a recent brain surgery and has been unsteady since his surgery. He is receiving PT OT services at home. He lives alone. He denies any dizziness or chest discomfort prior to his fall. He did not lose consciousness. He feels well this morning other than being sore from his fall. He is planning on going home with home care services and I did discuss with him possible rehabilitation and he is declining at this time. 06/25/2017 Patient is still complaining of pain in the right upper abdomen although after extensive evaluation no other etiology was probably found patient will be discharged on [place] for pain patient is declining to go to subacute rehabitation ahead I did do extensive counseling regarding this. Patient will be discharged home with home care. She will follow with surgery as an outpatient. PHYSICAL EXAMINATION: GENERAL: The patient is alert and oriented x3, not in any acute distress. morbidly obese HEENT: Pupils are round and equally reacting to light. EOMI. No scleral icterus. No conjunctival pallor. Normocephalic, atraumatic. No pharyngeal erythema. No thyromegaly. CARDIOVASCULAR: S1 and S2 present. No murmurs, rubs, or gallops. PULMONARY: Chest is clear to auscultation, no wheezing or crackles. ABDOMEN: Soft, there is some subjective tenderness in the right side of the abdomen, nondistended, normoactive bowel sounds. No palpable organomegaly. MUSCULOSKELETAL: No joint swelling or deformity. EXTREMITIES: No cyanosis, clubbing, or pedal edema. NEUROLOGICAL: Gross neurological examination did not reveal any focal deficits. does have generalized weakness SKIN: No rashes. Multiple falls with gait dysfunction History of recent brain stem surgery for vascular decompression Chronic anemia Right chest and left upper quadrant pain due to fall History of chronic persistent atrial fibrillation Diabetes type 2 Hypertension DJD Obesity abdominal pain: Etiology is unknown please refer to surgical evaluation for further details Patient Condition at Discharge: Stable Plan - Discharge Summary New Discharge Prescriptions: New HYDROcodone/APAP 7.5-325MG [[place] 7.5-325] 1 tab PO Q4H PRN #15 tab PRN Reason: Pain Polyethylene Glycol 3350 [Miralax] 17 gm PO DAILY PRN #15 packet PRN Reason: Constipation Continue Atorvastatin [Lipitor] 10 mg PO HS DULoxetine HCL [Duloxetine HCl] 60 mg PO DAILY Baclofen [Lioresal] 20 mg PO TID PRN PRN Reason: Muscle Spasm Butalb/APAP/Caff 50-325-40Mg [Fioricet 50-325-40] 1 tab PO BID PRN PRN Reason: Migraine Headache Aspirin [Children's Aspirin] 81 mg PO DAILY Apixaban [Eliquis] 2.5 mg PO BID Diazepam [Valium] 2 mg PO HS metFORMIN HCL [Glucophage] 500 mg PO BID Changed Lisinopril [Zestril] 10 mg PO DAILY #0 Discontinued acetaZOLAMIDE [Diamox Sequels] 500 mg PO Q12H Discharge Medication List Atorvastatin [Lipitor] 10 mg PO HS 10/08/15 [History] DULoxetine HCL [Duloxetine HCl] 60 mg PO DAILY 03/10/16 [History] Baclofen [Lioresal] 20 mg PO TID PRN 04/03/17 [History] Aspirin [Children's Aspirin] 81 mg PO DAILY 05/04/17 [History] Butalb/APAP/Caff 50-325-40Mg [Fioricet 50-325-40] 1 tab PO BID PRN 05/04/17 [ History] Apixaban [Eliquis] 2.5 mg PO BID 06/21/17 [History] Diazepam [Valium] 2 mg PO HS 06/21/17 [History] metFORMIN HCL [Glucophage] 500 mg PO BID 06/21/17 [History] HYDROcodone/APAP 7.5-325MG [[place] 7.5-325] 1 tab PO Q4H PRN #15 tab 06/25/17 [Rx ] Lisinopril [Zestril] 10 mg PO DAILY #0 06/25/17 [Rx] Polyethylene Glycol 3350 [Miralax] 17 gm PO DAILY PRN #15 packet 06/25/17 [Rx] Follow up Appointment(s)/Referral(s): Ganesh Mcpherson DO [Primary Care Provider] - 07/12/17 11:40 am Echo Romano MD [STAFF PHYSICIAN] - 07/24/17 10:20 am (For inguinal hernia ) [facility], [NON-STAFF] - 1-2 Days Discharge Disposition: HOME WITH HOME HEALTH SERVICES
== END 2017-06-25 14:40 | disposition home health service (06) ==
LOC: EC 17:15 → 4MS4W 21:19
PROVIDERS: ADMIT Hospitalist; ATTEND Hospitalist
DX: R26.2 Difficulty in walking, not elsewhere classified (principal); R29.6 Repeated falls; R10.13 Epigastric pain; R10.11 Right upper quadrant pain; R10.12 Left upper quadrant pain; R51 Headache; R42 Dizziness and giddiness; R53.1 Weakness; R07.81 Pleurodynia; D63.8 Anemia in other chronic diseases classified elsewhere; Z98.890 Other specified postprocedural states; I48.1 Persistent atrial fibrillation; I48.2 Chronic atrial fibrillation; Q79.59 Other congenital malformations of abdominal wall; I10 Essential (primary) hypertension; E11.9 Type 2 diabetes mellitus without complications; M19.90 Unspecified osteoarthritis, unspecified site; K21.9 Gastro-esophageal reflux disease without esophagitis; I42.9 Cardiomyopathy, unspecified; Z68.41 Body mass index [BMI] 40.0-44.9, adult; E66.01 Morbid (severe) obesity due to excess calories; K40.20 Bilateral inguinal hernia, without obstruction or gangrene, not specified as recurrent; Z79.01 Long term (current) use of anticoagulants; Z79.899 Other long term (current) drug therapy; Z79.82 Long term (current) use of aspirin; Z79.84 Long term (current) use of oral hypoglycemic drugs; Z88.0 Allergy status to penicillin; Z88.1 Allergy status to other antibiotic agents; Z87.01 Personal history of pneumonia (recurrent); Z87.891 Personal history of nicotine dependence; Z82.49 Family history of ischemic heart disease and other diseases of the circulatory system; W01.0XXA Fall on same level from slipping, tripping and stumbling without subsequent striking against object, initial encounter; Y92.000 Kitchen of unspecified non-institutional (private) residence as the place of occurrence of the external cause; S20.219A Contusion of unspecified front wall of thorax, initial encounter; Z90.13 Acquired absence of bilateral breasts and nipples
CPT/HCPCS: 99285; 96374; 36415; 93005; 97116; 97530; 97162; 97166; 80053; 80048 ×3; 82550; 85025 ×4; 85610; 85730; 81003; 80306; 83036; 73130; 71046; 93880; 72125; 70450; 74176; G0378 ×5; C8929; Q9950; J2270; 93306

== ENCOUNTER 2017-08-29 14:42 | Emergency (ER) | payer MEDICARE ==
[2017-08-29 15:02] VITALS: BP 106/71; PULSE 85; RESP 18; TEMP 97.8
--- NOTE | 2017-08-29 16:21 | CT ---
EXAMINATION TYPE: CT brain wo con DATE OF EXAM: 08/29/2017 COMPARISON: NONE HISTORY: Unsteady gait, leg weakness CT DLP: 1066 mGycm Automated exposure control for dose reduction was used. TECHNIQUE: CT scan of the head is performed without contrast. FINDINGS: There is no acute intracranial hemorrhage or midline shift identified. There is diffuse v entricular and sulcal prominence consistent with diffuse age-related cerebral atrophy. There a few p atchy areas of low-attenuation in the periventricular white matter, most likely related to sequela of chronic small vessel ischemic change. 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 There is redemonstration of a calvarial defect f rom prior craniectomy with similar-appearing dural flap in comparison the prior of 06/21/2017. The pre viously seen fluid collection appears more phlegmonous and is likely related to a resolving/evolving postsurgical hematoma and/or seroma. There remains slight mass effect upon the right cerebellar hemis phere. IMPRESSION: 1. No acute intracranial hemorrhage or midline shift. 2. Right occipital craniectomy defect with evolving postoperative fluid collection along the dural fl ap, appearing less fluid attenuated on today's examination than on the prior of 05/04/2017 likely repre senting evolving postsurgical hematoma and/or seroma. Slight mass effect upon the right cerebellar he misphere remains. 3. Mild age-related cerebral atrophy and few areas of chronic small vessel ischemic change noted.
--- NOTE | 2017-08-29 16:24 | ED ---
General Adult HPI - General Chief complaint: Headache Stated complaint: Neck pain/poss blood clot Time Seen by Provider: 08/29/17 15:27 Source: patient, RN notes reviewed Mode of arrival: wheelchair Limitations: no limitations - History of Present Illness Initial comments: 67-year-old male presents to the emergency department for an outpatient test. Patient states he had brain stem surgery in February because of chronic headaches. Patient has had a headache since that time. It is not worse today than it has been in the past couple months. Patient states he was supposed to get an outpatient CAT scan of his brain last week but the authorization never went through. Patient's family states they pushed it off until this week to wait for the authorization. They came to the hospital today to have it done and authorization was still not here. Family states they think he really needs to get it done so they brought him to the emergency department to have it completed. Patient denies any worsening symptoms today. They state they are here for the test. Patient has no other complaints at this time including shortness of breath, chest pain, abdominal pain, nausea or vomiting, headache, or visual changes. - Related Data Home Medications Medication Instructions Recorded Confirmed Atorvastatin [Lipitor] 10 mg PO HS 10/08/15 06/21/17 DULoxetine HCL [Duloxetine HCl] 60 mg PO DAILY 03/10/16 06/21/17 Baclofen [Lioresal] 20 mg PO TID PRN 04/03/17 06/21/17 Aspirin [Children's Aspirin] 81 mg PO DAILY 05/04/17 06/21/17 Butalb/APAP/Caff 50-325-40Mg 1 tab PO BID PRN 05/04/17 06/21/17 [Fioricet 50-325-40] Apixaban [Eliquis] 2.5 mg PO BID 06/21/17 06/21/17 Diazepam [Valium] 2 mg PO HS 06/21/17 06/21/17 metFORMIN HCL [Glucophage] 500 mg PO BID 06/21/17 06/21/17 Previous Rx's Medication Instructions Recorded HYDROcodone/APAP 7.5-325MG [[place] 1 tab PO Q4H PRN #15 tab 06/25/17 7.5-325] Lisinopril [Zestril] 10 mg PO DAILY #0 06/25/17 Polyethylene Glycol 3350 [Miralax] 17 gm PO DAILY PRN #15 packet 06/25/17 Allergies Allergy/AdvReac Type Severity Reaction Status Date / Time cephalexin monohydrate Allergy Anaphylaxis Verified 08/29/17 15:02 [From Keflex] Cephalosporins Allergy Unknown Verified 08/29/17 15:02 Penicillins Allergy Anaphylaxis Verified 08/29/17 15:02 Review of Systems ROS Statement: Those systems with pertinent positive or pertinent negative responses have been documented in the HPI. ROS Other: All systems not noted in ROS Statement are negative. Past Medical History Past Medical History: Atrial Fibrillation, Diabetes Mellitus, GERD/Reflux, Hypertension, Osteoarthritis (OA), Pneumonia Additional Past Medical History / Comment(s): 03-10-16 FELL/FX RT FIBULA, VERTIGO chronic headaches History of Any Multi-Drug Resistant Organisms: MRSA Date of last positivie culture/infection: feb 2017 MDRO Source:: mrsa Past Surgical History: Back Surgery, Orthopedic Surgery Additional Past Surgical History / Comment(s): Bilateral mastectomy with right sided lymp node removal, rt. knee cap removed, back surgery for herniated disc. , Brain stem surgery for decompression-for dizziness, right ankle ORIF Past Anesthesia/Blood Transfusion Reactions: No Reported Reaction Past Psychological History: No Psychological Hx Reported Smoking Status: Former smoker Past Alcohol Use History: None Reported Past Drug Use History: None Reported - Past Family History Father History Unknown: Yes Family Medical History: Congestive Heart Failure (CHF) Mother History Unknown: Yes Family Medical History: Hypertension Additional Family Medical History / Comment(s): pulmonary hypertension General Exam Limitations: no limitations General appearance: alert, in no apparent distress Head exam: Present: atraumatic, normocephalic, normal inspection Eye exam: Present: normal appearance, PERRL, EOMI. Absent: scleral icterus, conjunctival injection, nystagmus, periorbital swelling Pupils: Present: normal accommodation ENT exam: Present: normal exam, normal oropharynx (uvula midline), mucous membranes moist, TM's normal bilaterally, normal external ear exam Neck exam: Present: normal inspection, full ROM. Absent: tenderness, meningismus, lymphadenopathy Respiratory exam: Present: normal lung sounds bilaterally. Absent: respiratory distress, wheezes, rales, rhonchi, stridor Cardiovascular Exam: Present: regular rate, normal rhythm, normal heart sounds. Absent: systolic murmur, diastolic murmur, rubs, gallop, clicks Extremities exam: Present: other (strength 5/5 in upper and lower extremities bilaterally. Negative arm drift.) Neurological exam: Present: alert, oriented X3, CN II-XII intact, other (GCS 15) Course Vital Signs 08/29/17 14:57 Temperature 97.8 F Pulse Rate 85 Respiratory 18 Rate Blood Pressure 106/71 O2 Sat by Pulse 96 Oximetry Medical Decision Making - Medical Decision Making 67-year-old male presents to the emergency department for outpatient testing. Patient was supposed to have a CAT scan done last week but the authorization never went through. Family states they pushed it off until this week but the authorization was still not completed. Family states they brought him to the emergency department to have the CAT scan done anyway because they think it is necessary at this point. Patient had brain stem surgery in February and has had a headache since that time. Neurologist is aware of this and was the one who ordered the CAT scan. I called down to CAT scan to see what the exact order was and was told it was a CT brain noncontrast. Vitals within normal limits. On exam patient has no focal neuro deficits. Exam unremarkable. CT brain shows no acute intracranial hemorrhage or midline shift. There is evolving post operative fluid collection along dural flap appearing less fluid attenuated on today's exam been prior exam light leave representing evolving postsurgical hematoma and/or seroma. Discussed with Dr. Pedroza. Patient can follow -up outpatient for this with his neurologist. He is to return to the emergency department if he has any worsening symptoms. Family is aware of this. Disposition Clinical Impression: Normal exam Disposition: HOME SELF-CARE Condition: Good Instructions: Acute Headache (ED) Additional Instructions: Please follow up with neurologist in one to 2 days and continue treatment plan as discussed by specialists. Return to the emergency department if you have any worsening symptoms or additional concerns. Is patient prescribed a controlled substance at d/c from ED?: No Referrals: Ganesh Mcpherson DO [Primary Care Provider] - 1-2 days Time of Disposition: 16:36
== END 2017-08-29 16:57 | disposition home or self-care (01) ==
LOC: EC 14:42
DX: Z00.00 Encounter for general adult medical examination without abnormal findings (principal); R51 Headache; I48.91 Unspecified atrial fibrillation; E11.9 Type 2 diabetes mellitus without complications; I10 Essential (primary) hypertension; Z86.14 Personal history of Methicillin resistant Staphylococcus aureus infection; Z98.890 Other specified postprocedural states; Z87.891 Personal history of nicotine dependence; Z79.82 Long term (current) use of aspirin; Z79.891 Long term (current) use of opiate analgesic; Z79.899 Other long term (current) drug therapy; Z79.01 Long term (current) use of anticoagulants; Z79.84 Long term (current) use of oral hypoglycemic drugs
CPT/HCPCS: 70450; 99284

== ENCOUNTER 2018-01-13 05:14 | Emergency (ER) | payer MEDICARE ==
--- NOTE | 2018-01-13 05:33 | ED ---
Fall HPI - General Chief Complaint: Fall Stated Complaint: Fall Time Seen by Provider: 01/13/18 05:22 Source: patient, EMS Mode of arrival: EMS - History of Present Illness Initial Comments: Kyle is a 67-year-old gentleman who presents to ED via EMS for evaluation of head and back pain after a fall. Patient states he's not certain when he fell. He states that he was walking through his house when he must of loss his balance falling backwards striking his head on a table and then chair. Patient is uncertain what time this happened, reports it was during the night. He is uncertain how long he has been lying on the floor. He reports that he woke up on the ground and used medical alert to call for help. EMS reports they found him lying on his back with his head against the rungs of a chair. Patient was complaining of head pain as well as low back pain. No patient also had bilateral inguinal hernia repair approximately 2 weeks ago. He does have Steri-Strips in place, pain at the site. - Related Data Home Medications Medication Instructions Recorded Confirmed Atorvastatin [Lipitor] 10 mg PO HS 10/08/15 06/21/17 DULoxetine HCL [Duloxetine HCl] 60 mg PO DAILY 03/10/16 06/21/17 Baclofen [Lioresal] 20 mg PO TID PRN 04/03/17 06/21/17 Aspirin [Children's Aspirin] 81 mg PO DAILY 05/04/17 06/21/17 Butalb/APAP/Caff 50-325-40Mg 1 tab PO BID PRN 05/04/17 06/21/17 [Fioricet 50-325-40] Apixaban [Eliquis] 2.5 mg PO BID 06/21/17 06/21/17 Diazepam [Valium] 2 mg PO HS 06/21/17 06/21/17 metFORMIN HCL [Glucophage] 500 mg PO BID 06/21/17 06/21/17 Previous Rx's Medication Instructions Recorded HYDROcodone/APAP 7.5-325MG [[place] 1 tab PO Q4H PRN #15 tab 06/25/17 7.5-325] Lisinopril [Zestril] 10 mg PO DAILY #0 06/25/17 Polyethylene Glycol 3350 [Miralax] 17 gm PO DAILY PRN #15 packet 06/25/17 Allergies Allergy/AdvReac Type Severity Reaction Status Date / Time cephalexin monohydrate Allergy Anaphylaxis Verified 08/29/17 15:02 [From Keflex] Cephalosporins Allergy Unknown Verified 08/29/17 15:02 Penicillins Allergy Anaphylaxis Verified 08/29/17 15:02 Review of Systems ROS Statement: Those systems with pertinent positive or pertinent negative responses have been documented in the HPI. ROS Other: All systems not noted in ROS Statement are negative. Past Medical History Past Medical History: Atrial Fibrillation, Diabetes Mellitus, GERD/Reflux, Hypertension, Osteoarthritis (OA), Pneumonia Additional Past Medical History / Comment(s): 03-10-16 FELL/FX RT FIBULA, VERTIGO chronic headaches History of Any Multi-Drug Resistant Organisms: MRSA Date of last positivie culture/infection: feb 2017 MDRO Source:: mrsa Past Surgical History: Back Surgery, Orthopedic Surgery Additional Past Surgical History / Comment(s): Bilateral mastectomy with right sided lymp node removal, rt. knee cap removed, back surgery for herniated disc. , Brain stem surgery for decompression-for dizziness, right ankle ORIF Past Anesthesia/Blood Transfusion Reactions: No Reported Reaction Past Psychological History: No Psychological Hx Reported Smoking Status: Former smoker Past Alcohol Use History: None Reported Past Drug Use History: None Reported - Past Family History Father History Unknown: Yes Family Medical History: Congestive Heart Failure (CHF) Mother History Unknown: Yes Family Medical History: Hypertension Additional Family Medical History / Comment(s): pulmonary hypertension General Exam - General Exam Comments Initial Comments: Physical Exam GENERAL: Patient is well-developed and well-nourished. Patient is nontoxic and well- hydrated and is in no distress. Patient is a cervical collar HENT: Normocephalic, Atraumatic. TMs normal bilaterally with no evidence of hemotympanum EYES: PERRL, EOMI PULMONARY: Unlabored respirations. No audible rales rhonchi or wheezing was noted. CARDIOVASCULAR: There is a regular rate and rhythm without any murmurs gallops or rubs. Extremities are warm and well perfused good radial pulses bilaterally, good DPPT pulses ABDOMEN: Soft and nontender with normal bowel sounds. Well healing surgical patient's bilateral lower abdomen consistent with recent history of hernia repair SKIN: Skin is clear with no lesions or rashes and otherwise unremarkable. : Deferred NEUROLOGIC: Patient is alert and oriented x3. Confused about events leading up to hospitalization Moving all extremities spontaneously MUSCULOSKELETAL: Normal extremities with adequate strength and full range of motion. No lower extremity swelling or edema. No calf tenderness. PSYCHIATRIC: Normal psychiatric evaluation. Limitations: no limitations Limitations: no limitations Course Vital Signs 01/13/18 01/13/18 05:15 08:11 Temperature 98.2 F 98.7 F Pulse Rate 82 76 Respiratory 16 18 Rate Blood Pressure 108/83 131/78 O2 Sat by Pulse 99 99 Oximetry Medical Decision Making - Medical Decision Making Patient seen and evaluated per ATLS protocol Airway patent Bilateral breath sounds with good oxygen saturation on the monitor Circulation assessed, no active bleeding, warm and well perfused extremities Secondary exam reveals some swelling to the back ahead as well as midline lumbar spine tenderness Labs and imaging ordered Imaging with no obvious injuries Labs the patient's baseline, mildly elevated glucose Results were discussed with the patient who states he feels comfortable being discharged home at this time. All questions pertaining care were answered best my ability patient was discharged home in stable condition - Lab Data Result diagrams: 01/13/18 05:30 01/13/18 05:30 Lab Results 01/13/18 01/13/18 01/13/18 Range/Units 05:30 05:30 05:30 WBC 11.6 H (3.8-10.6) k/uL RBC 3.74 L (4.30-5.90) m/uL Hgb 11.6 L (13.0-17.5) gm/dL Hct 35.9 L (39.0-53.0) % MCV 95.8 (80.0-100.0) fL MCH 31.1 (25.0-35.0) pg MCHC 32.5 (31.0-37.0) g/dL RDW 13.6 (11.5-15.5) % Plt Count 216 (150-450) k/uL Neutrophils % 80 % Lymphocytes % 11 % Monocytes % 5 % Eosinophils % 2 % Basophils % 0 % Neutrophils # 9.3 H (1.3-7.7) k/uL Lymphocytes # 1.3 (1.0-4.8) k/uL Monocytes # 0.6 (0-1.0) k/uL Eosinophils # 0.2 (0-0.7) k/uL Basophils # 0.0 (0-0.2) k/uL Hypochromasia Slight PT (9.0-12.0) sec INR (<1.2) APTT (22.0-30.0) sec Sodium 142 (137-145) mmol/L Potassium 5.1 (3.5-5.1) mmol/L Chloride 117 H (98-107) mmol/L Carbon Dioxide 15 L (22-30) mmol/L Anion Gap 10 mmol/L BUN 27 H (9-20) mg/dL Creatinine 1.19 (0.66-1.25) mg/dL Est GFR (CKD-EPI)AfAm 73 (>60 ml/min/1.73 sqM) Est GFR (CKD-EPI)NonAf 63 (>60 ml/min/1.73 sqM) Glucose 160 H (74-99) mg/dL POC Glucose (mg/dL) (75-99) mg/dL POC Glu [place] Administrator ID Calcium 9.7 (8.4-10.2) mg/dL Total Bilirubin 0.5 (0.2-1.3) mg/dL AST 26 (17-59) U/L ALT 22 (21-72) U/L Alkaline Phosphatase 40 (38-126) U/L Total Creatine Kinase 60 (55-170) U/L CK-MB (CK-2) 1.1 (0.0-2.4) ng/mL CK-MB (CK-2) Rel Index 1.8 Troponin I <0.012 (0.000-0.034) ng/mL Total Protein 7.3 (6.3-8.2) g/dL Albumin 4.1 (3.5-5.0) g/dL Urine Color Urine Appearance (Clear) Urine pH (5.0-8.0) Ur Specific [place] (1.001-1.035) Urine Protein (Negative) Urine Glucose (UA) (Negative) Urine Ketones (Negative) Urine Blood (Negative) Urine Nitrite (Negative) Urine Bilirubin (Negative) Urine Urobilinogen (<2.0) mg/dL Ur Leukocyte Esterase (Negative) Urine Opiates Screen (NotDetected) Ur Oxycodone Screen (NotDetected) Urine Methadone Screen (NotDetected) Ur Propoxyphene Screen (NotDetected) Ur Barbiturates Screen (NotDetected) U Tricyclic Antidepress (NotDetected) Ur Phencyclidine Scrn (NotDetected) Ur Amphetamines Screen (NotDetected) U Methamphetamines Scrn (NotDetected) U Benzodiazepines Scrn (NotDetected) Urine Cocaine Screen (NotDetected) U Marijuana (THC) Screen (NotDetected) Serum Alcohol <10 mg/dL Blood Type Blood Type Confirm Blood Type Recheck Antibody Screen Spec Expiration Date 01/13/18 01/13/18 01/13/18 Range/Units 05:30 05:31 06:55 WBC (3.8-10.6) k/uL RBC (4.30-5.90) m/uL Hgb (13.0-17.5) gm/dL Hct (39.0-53.0) % MCV (80.0-100.0) fL MCH (25.0-35.0) pg MCHC (31.0-37.0) g/dL RDW (11.5-15.5) % Plt Count (150-450) k/uL Neutrophils % % Lymphocytes % % Monocytes % % Eosinophils % % Basophils % % Neutrophils # (1.3-7.7) k/uL Lymphocytes # (1.0-4.8) k/uL Monocytes # (0-1.0) k/uL Eosinophils # (0-0.7) k/uL Basophils # (0-0.2) k/uL Hypochromasia PT 9.7 (9.0-12.0) sec INR 1.0 (<1.2) APTT 24.4 (22.0-30.0) sec Sodium (137-145) mmol/L Potassium (3.5-5.1) mmol/L Chloride (98-107) mmol/L Carbon Dioxide (22-30) mmol/L Anion Gap mmol/L BUN (9-20) mg/dL Creatinine (0.66-1.25) mg/dL Est GFR (CKD-EPI)AfAm (>60 ml/min/1.73 sqM) Est GFR (CKD-EPI)NonAf (>60 ml/min/1.73 sqM) Glucose (74-99) mg/dL POC Glucose (mg/dL) 139 H (75-99) mg/dL POC Glu [place] Administrator ID Glen, Martha Calcium (8.4-10.2) mg/dL Total Bilirubin (0.2-1.3) mg/dL AST (17-59) U/L ALT (21-72) U/L Alkaline Phosphatase (38-126) U/L Total Creatine Kinase (55-170) U/L CK-MB (CK-2) (0.0-2.4) ng/mL CK-MB (CK-2) Rel Index Troponin I (0.000-0.034) ng/mL Total Protein (6.3-8.2) g/dL Albumin (3.5-5.0) g/dL Urine Color Urine Appearance (Clear) Urine pH (5.0-8.0) Ur Specific [place] (1.001-1.035) Urine Protein (Negative) Urine Glucose (UA) (Negative) Urine Ketones (Negative) Urine Blood (Negative) Urine Nitrite (Negative) Urine Bilirubin (Negative) Urine Urobilinogen (<2.0) mg/dL Ur Leukocyte Esterase (Negative) Urine Opiates Screen (NotDetected) Ur Oxycodone Screen (NotDetected) Urine Methadone Screen (NotDetected) Ur Propoxyphene Screen (NotDetected) Ur Barbiturates Screen (NotDetected) U Tricyclic Antidepress (NotDetected) Ur Phencyclidine Scrn (NotDetected) Ur Amphetamines Screen (NotDetected) U Methamphetamines Scrn (NotDetected) U Benzodiazepines Scrn (NotDetected) Urine Cocaine Screen (NotDetected) U Marijuana (THC) Screen (NotDetected) Serum Alcohol mg/dL Blood Type Blood Type Confirm A Positive Blood Type Recheck Antibody Screen Spec Expiration Date 01/13/18 01/13/18 Range/Units 06:55 08:11 WBC (3.8-10.6) k/uL RBC (4.30-5.90) m/uL Hgb (13.0-17.5) gm/dL Hct (39.0-53.0) % MCV (80.0-100.0) fL MCH (25.0-35.0) pg MCHC (31.0-37.0) g/dL RDW (11.5-15.5) % Plt Count (150-450) k/uL Neutrophils % % Lymphocytes % % Monocytes % % Eosinophils % % Basophils % % Neutrophils # (1.3-7.7) k/uL Lymphocytes # (1.0-4.8) k/uL Monocytes # (0-1.0) k/uL Eosinophils # (0-0.7) k/uL Basophils # (0-0.2) k/uL Hypochromasia PT (9.0-12.0) sec INR (<1.2) APTT (22.0-30.0) sec Sodium (137-145) mmol/L Potassium (3.5-5.1) mmol/L Chloride (98-107) mmol/L Carbon Dioxide (22-30) mmol/L Anion Gap mmol/L BUN (9-20) mg/dL Creatinine (0.66-1.25) mg/dL Est GFR (CKD-EPI)AfAm (>60 ml/min/1.73 sqM) Est GFR (CKD-EPI)NonAf (>60 ml/min/1.73 sqM) Glucose (74-99) mg/dL POC Glucose (mg/dL) (75-99) mg/dL POC Glu [place] Administrator ID Calcium (8.4-10.2) mg/dL Total Bilirubin (0.2-1.3) mg/dL AST (17-59) U/L ALT (21-72) U/L Alkaline Phosphatase (38-126) U/L Total Creatine Kinase (55-170) U/L CK-MB (CK-2) (0.0-2.4) ng/mL CK-MB (CK-2) Rel Index Troponin I (0.000-0.034) ng/mL Total Protein (6.3-8.2) g/dL Albumin (3.5-5.0) g/dL Urine Color Light Yellow Urine Appearance Clear (Clear) Urine pH 6.0 (5.0-8.0) Ur Specific [place] 1.012 (1.001-1.035) Urine Protein Negative (Negative) Urine Glucose (UA) Negative (Negative) Urine Ketones Negative (Negative) Urine Blood Negative (Negative) Urine Nitrite Negative (Negative) Urine Bilirubin Negative (Negative) Urine Urobilinogen <2.0 (<2.0) mg/dL Ur Leukocyte Esterase Negative (Negative) Urine Opiates Screen Not Detected (NotDetected) Ur Oxycodone Screen Not Detected (NotDetected) Urine Methadone Screen Not Detected (NotDetected) Ur Propoxyphene Screen Not Detected (NotDetected) Ur Barbiturates Screen Not Detected (NotDetected) U Tricyclic Antidepress Not Detected (NotDetected) Ur Phencyclidine Scrn Not Detected (NotDetected) Ur Amphetamines Screen Not Detected (NotDetected) U Methamphetamines Scrn Not Detected (NotDetected) U Benzodiazepines Scrn Not Detected (NotDetected) Urine Cocaine Screen Not Detected (NotDetected) U Marijuana (THC) Screen Not Detected (NotDetected) Serum Alcohol mg/dL Blood Type A Positive Blood Type Confirm Blood Type Recheck CABO Indicated Antibody Screen NEGATIVE Spec Expiration Date 01/16/2018 2091 - EKG Data -: EKG Interpreted by Id EKG shows normal: sinus rhythm EKG Comments: EKG obtained at 5:29 AM, rate is 81, rhythm is sinus, there is normal axis, there are normal intervals, FL 160, QRS is 96, QTC is 448. There are no acute ST elevations or depressions no evidence of acute ischemia or infarction or arrhythmia. Disposition Clinical Impression: Fall at home Disposition: HOME SELF-CARE Condition: Stable Instructions: Fall Prevention for Older Adults (ED) Is patient prescribed a controlled substance at d/c from ED?: No Referrals: Ganesh Mcpherson DO [Primary Care Provider] - 1-2 days
[2018-01-13 05:35] LABS: Glucose,Whole Blood 139 mg/dL (75-99)
[2018-01-13 05:51] LABS: Basophils % (A) 0 %; Eosinophils # (A) 0.2 k/uL (0-0.7); Eosinophils % (A) 2 %; HCT 35.9 % (39.0-53.0); HGB 11.6 gm/dL (13.0-17.5); Hypochromasia Slight; Lymphocytes # (A) 1.3 k/uL (1.0-4.8); Lymphocytes % (A) 11 %; MCH 31.1 pg (25.0-35.0); MCHC 32.5 g/dL (31.0-37.0); MCV 95.8 fL (80.0-100.0); Mean Platelet Volume 8.1; Monocytes # (A) 0.6 k/uL (0-1.0); Monocytes % (A) 5 %; Neutrophils # (A) 9.3 k/uL (1.3-7.7); Neutrophils % (A) 80 %; Platelet Count 216 k/uL (150-450); RBC 3.74 m/uL (4.30-5.90); RDW 13.6 % (11.5-15.5); WBC 11.6 k/uL (3.8-10.6)
[2018-01-13 06:07] LABS: ALT 22 U/L (21-72); AST 26 U/L (17-59); Albumin 4.1 g/dL (3.5-5.0); Alcohol <10 mg/dL; Alkaline Phosphatase 40 U/L (38-126); Anion Gap 10 mmol/L; Blood Urea Nitrogen 27 mg/dL (9-20); Calcium 9.7 mg/dL (8.4-10.2); Carbon Dioxide 15 mmol/L (22-30); Chloride 117 mmol/L (98-107); Glucose 160 mg/dL (74-99); Sodium 142 mmol/L (137-145); Total Bilirubin 0.5 mg/dL (0.2-1.3); Total Protein 7.3 g/dL (6.3-8.2)
[2018-01-13 06:10] LABS: Creatine Kinase 60 U/L (55-170)
[2018-01-13 06:20] LABS: Creatine Kinase MB 1.1 ng/mL (0.0-2.4)
[2018-01-13 06:22] LABS: Potassium 5.1 mmol/L (3.5-5.1)
[2018-01-13 06:23] LABS: Troponin I <0.012 ng/mL (0.000-0.034)
--- NOTE | 2018-01-13 06:28 | CT ---
EXAMINATION TYPE: CT lumbar spine wo con DATE OF EXAM: 01/13/2018 6:21 AM COMPARISON: 06/22/2017 HISTORY: fall CT DLP: 1322.40 mGycm Automated exposure control for dose reduction was used. Unenhanced CT of the lumbar spine was performed. Bone and soft tissue window settings are submitted as well as coronal and sagittal reconstructions. Lumbar vertebra have normal alignment. Disc spaces are fairly normal. There is hypertrophic anterior spurring throughout the lumbar spine. Posterior elements are intact. The sacroiliac joints are intact . There is no lumbar paraspinal mass. Abdominal aorta is atheromatous. There is no retroperitoneal ad enopathy. IMPRESSION: Hypertrophic degenerative disc changes throughout the lumbar spine without compression fracture. No s ignificant disc space narrowing. No change compared to old exam. No significant spinal stenosis seen.
--- NOTE | 2018-01-13 06:42 | CT ---
EXAMINATION TYPE: CT brain aubrey wo con DATE OF EXAM: 01/13/2018 COMPARISON: 06/21/2017 HISTORY: fall CT DLP: 1354.10 mGycm Automated exposure control for dose reduction was used. TECHNIQUE: CT scan of the head and cervical spine are performed without contrast. FINDINGS: Ventricles of normal size. There is no mass effect nor midline shift. There is no sign of intracranial hemorrhage. There is bony defect in the right occipital bone consistent with previous s urgery. Cervical vertebra have normal spacing and alignment. Posterior elements are intact. There is hypertro phic spurring anteriorly and multiple levels of the cervical spine. Skull base is intact. Facet joint s are intact. There is no evidence of a fracture. IMPRESSION: Old right occipital craniotomy defect. No acute intracranial abnormality. Spondylotic changes in the cervical spine. No fracture seen. No change compared to old exam.
--- NOTE | 2018-01-13 06:44 | XR ---
EXAMINATION TYPE: XR pelvis AP view DATE OF EXAM: 01/13/2018 COMPARISON: NONE HISTORY: Pain TECHNIQUE: Single view FINDINGS: Pelvic ring is intact. Proximal femurs and hip joints are intact. Sacroiliac joints appear normal. IMPRESSION: Negative pelvis exam. No fracture.
--- NOTE | 2018-01-13 06:45 | XR ---
EXAMINATION TYPE: XR chest 1V portable DATE OF EXAM: 01/13/2018 COMPARISON: 06/21/2017 HISTORY: Fall. Rib pain. TECHNIQUE: Single frontal view of the chest is obtained. FINDINGS: Heart and mediastinum are within normal limits. Lungs are clear of infiltrate. There is no sign of pleural effusion or pneumothorax. There is small linear density at the left lung base. IMPRESSION: Minimal scarring or subsegmental atelectasis at left lung base without change. Normal he art. No fracture seen.
--- NOTE | 2018-01-13 06:46 | XR ---
EXAMINATION TYPE: XR Hip Complete RT DATE OF EXAM: 01/13/2018 COMPARISON: 08/12/2016 HISTORY: Hip pain TECHNIQUE: 2 views FINDINGS: There is no fracture nor dislocation. Right hip joint space is normal. Sacroiliac joint jin ears normal. There is no sign of hip dysplasia. IMPRESSION: Normal right hip.
[2018-01-13 07:14] LABS: Partial Thromboplastin Time 24.4 sec (22.0-30.0); Prothrombin Time 9.7 sec (9.0-12.0)
[2018-01-13 08:12] VITALS: BP 131/78; PULSE 76; RESP 18; TEMP 98.7
[2018-01-13 08:35] LABS: Appearance,Urine Clear (Clear); Bilirubin,Urine Negative (Negative); Blood,Urine Negative (Negative); Color,Urine Light Yellow; Glucose,Urine (UA) Negative (Negative); Ketones,Urine Negative (Negative); Leukocyte Esterase,Urine Negative (Negative); Nitrite,Urine Negative (Negative); Protein,Urine Negative (Negative); Specific Gravity,Urine 1.012 (1.001-1.035); Urobilinogen,Urine <2.0 mg/dL (<2.0)
[2018-01-13 08:50] LABS: Amphetamine Screen,Urine Not Detected (NotDetected); Barbiturate Screen,Urine Not Detected (NotDetected); Benzodiazepines Screen,Urine Not Detected (NotDetected); Cocaine Screen,Urine Not Detected (NotDetected); Methadone Screen, Urine Not Detected (NotDetected); Opiate Screen,Urine Not Detected (NotDetected); Oxycodone Screen, Urine Not Detected (NotDetected); Phencyclidine Screen,Urine Not Detected (NotDetected); Tricyclic Antidepressant,Urine Not Detected (NotDetected); Urn Cannabinoid Scrn Not Detected (NotDetected)
== END 2018-01-13 08:12 | disposition home or self-care (01) ==
LOC: EC 05:14
DX: R41.0 Disorientation, unspecified (principal); R22.0 Localized swelling, mass and lump, head; R51 Headache; M54.5 Low back pain; E11.9 Type 2 diabetes mellitus without complications; I10 Essential (primary) hypertension; I48.91 Unspecified atrial fibrillation; M19.90 Unspecified osteoarthritis, unspecified site; Z87.891 Personal history of nicotine dependence; Z88.0 Allergy status to penicillin; Z88.1 Allergy status to other antibiotic agents; Z79.01 Long term (current) use of anticoagulants; Z79.82 Long term (current) use of aspirin; Z79.84 Long term (current) use of oral hypoglycemic drugs; Z79.899 Other long term (current) drug therapy; Z86.14 Personal history of Methicillin resistant Staphylococcus aureus infection; W01.190A Fall on same level from slipping, tripping and stumbling with subsequent striking against furniture, initial encounter; Z98.890 Other specified postprocedural states; Y93.01 Activity, walking, marching and hiking; Y92.009 Unspecified place in unspecified non-institutional (private) residence as the place of occurrence of the external cause
CPT/HCPCS: 99285; 36415; 93005; 86900; 86901; 80053; 82550; 82553; 84484; 85025; 85610; 85730; 86850; 81003; 80306; 72170; 73502; 71045; 72125; 72131; 70450; G0480; 80320

== ENCOUNTER → 2018-08-22 | Outpatient (CLI) | payer MEDICARE ==
--- NOTE | 2018-08-22 12:23 | US ---
EXAMINATION TYPE: US venous doppler duplex LE LT DATE OF EXAM: 08/22/2018 12:09 PM COMPARISON: NONE CLINICAL HISTORY: Pain left lower ext M25.562. Left leg pain and swelling x 3 days SIDE PERFORMED: Left TECHNIQUE: The lower extremity deep venous system is examined utilizing real time linear array sonog jasen with graded compression, doppler sonography and color-flow sonography. VESSELS IMAGED: External Iliac Vein (EIV) Common Femoral Vein Deep Femoral Vein Greater Saphenous Vein * Femoral Vein Popliteal Vein Small Saphenous Vein * Proximal Calf Veins (* superficial vessels) Left Leg: Appears negative for DVT IMPRESSION: 1. Left lower extremity ultrasound negative for deep venous thrombosis
== END | disposition home or self-care (01) ==
LOC: RADUSWWP 11:24
PROVIDERS: ATTEND Orthopaedic Surgery
DX: I80.9 Phlebitis and thrombophlebitis of unspecified site (principal); M17.12 Unilateral primary osteoarthritis, left knee

== ENCOUNTER 2018-09-15 10:46 | Emergency (ER) | payer MEDICARE ==
[2018-09-15 11:04] VITALS: TEMP 98.9
[2018-09-15] MEDS ORDERED: SODIUM CHLORIDE 0.9% 1,000 ML IV STA (11:07)
[2018-09-15] MEDS ORDERED: METOCLOPRAMIDE 5 MG/ML 2 ML VIAL IVP STA (11:08)
[2018-09-15] MEDS ORDERED: LORazepam 2 MG/ML INJ IV STA ×3 (11:08→11:53)
--- NOTE | 2018-09-15 11:13 | ED ---
General Adult HPI - General Chief complaint: Syncope Stated complaint: Syncope Time Seen by Provider: 09/15/18 10:55 Source: patient, RN notes reviewed Mode of arrival: EMS Limitations: no limitations - History of Present Illness Initial comments: Patient is a pleasant 68-year-old male presenting to the emergency department following reported syncopal episode. Patient does admit that he feels very dizzy and fell however is not clear whether or not he passed out. EMS reported patient is having a syncopal episode however. Patient states he is very dizzy at this time. Patient does have intermittent twitching episodes which he states is not normal for him. Patient does admit that he feels a little bit confused. Patient states he does have a history of chronic dizziness and has actually had 3 previous brain surgeries by a specialist in [place] for his dizziness. No chest pain or dyspnea. No abdominal or back pain. - Related Data Home Medications Medication Instructions Recorded Confirmed Atorvastatin [Lipitor] 10 mg PO HS 10/08/15 09/15/18 Baclofen [Lioresal] 20 mg PO TID PRN 04/03/17 09/15/18 Aspirin [Children's Aspirin] 81 mg PO DAILY 05/04/17 06/21/17 Butalb/APAP/Caff 50-325-40Mg 1 tab PO BID PRN 05/04/17 06/21/17 [Fioricet 50-325-40] Apixaban [Eliquis] 2.5 mg PO BID 06/21/17 06/21/17 metFORMIN HCL [Glucophage] 500 mg PO BID 06/21/17 09/15/18 DULoxetine HCL [Cymbalta] 30 mg PO HS 09/15/18 09/15/18 DULoxetine HCL [Cymbalta] 60 mg PO DAILY 09/15/18 09/15/18 Gabapentin [Neurontin] 100 mg PO TID 09/15/18 09/15/18 HYDROcodone/APAP 5-325MG [[place] 1 tab PO TID 09/15/18 09/15/18 5-325] Lisinopril [Zestril] 20 mg PO DAILY 09/15/18 09/15/18 Allergies Allergy/AdvReac Type Severity Reaction Status Date / Time cephalexin monohydrate Allergy Anaphylaxis Verified 08/29/17 15:02 [From Keflex] Cephalosporins Allergy Unknown Verified 08/29/17 15:02 Penicillins Allergy Anaphylaxis Verified 08/29/17 15:02 Review of Systems ROS Statement: Those systems with pertinent positive or pertinent negative responses have been documented in the HPI. ROS Other: All systems not noted in ROS Statement are negative. Constitutional: Denies: fever Eyes: Denies: eye pain ENT: Denies: ear pain Respiratory: Denies: cough Cardiovascular: Denies: chest pain Endocrine: Denies: fatigue Gastrointestinal: Denies: abdominal pain Genitourinary: Denies: dysuria Musculoskeletal: Denies: back pain Skin: Denies: rash Neurological: Reports: confusion. Denies: headache, weakness Past Medical History Past Medical History: Atrial Fibrillation, Diabetes Mellitus, GERD/Reflux, Hypertension, Osteoarthritis (OA), Pneumonia Additional Past Medical History / Comment(s): 03-10-16 FELL/FX RT FIBULA, VERTIGO chronic headaches History of Any Multi-Drug Resistant Organisms: MRSA Date of last positivie culture/infection: feb 2017 MDRO Source:: mrsa Past Surgical History: Back Surgery, Orthopedic Surgery Additional Past Surgical History / Comment(s): Bilateral mastectomy with right sided lymp node removal, rt. knee cap removed, back surgery for herniated disc., Brain stem surgery for decompression-for dizziness, right ankle ORIF Past Anesthesia/Blood Transfusion Reactions: No Reported Reaction Past Psychological History: No Psychological Hx Reported Smoking Status: Former smoker Past Alcohol Use History: None Reported Past Drug Use History: None Reported - Past Family History Father History Unknown: Yes Family Medical History: Congestive Heart Failure (CHF) Mother History Unknown: Yes Family Medical History: Hypertension Additional Family Medical History / Comment(s): pulmonary hypertension General Exam Limitations: no limitations General appearance: alert, other (Patient has intermittent episodes of twitching mostly of the bilateral upper extremities occurring every 3-10 seconds.) Head exam: Present: atraumatic Eye exam: Present: normal appearance, PERRL, EOMI, nystagmus ENT exam: Present: normal oropharynx Neck exam: Present: normal inspection Respiratory exam: Present: normal lung sounds bilaterally Cardiovascular Exam: Present: regular rate, normal rhythm Expanded Peripheral pulses: 2+: Radial (R), Radial (L), Dorsalis Pedis (R), Dorsalis Pedis (L) GI/Abdominal exam: Present: soft. Absent: distended, tenderness Extremities exam: Present: normal inspection Neurological exam: Present: alert, oriented X3, CN II-XII intact, other (Occasional twitching episodes). Absent: motor sensory deficit Expanded Neurological exam: Present: other (Patient does have occasional slurred speech. Patient also occasionally stops his sentence and needs to be asked the question again.) Patient oriented to: Present: person, place, time Cranial nerves: EOM's Intact: Normal, Facial Sensation: Normal Sensory exam: Upper Extremity Light Touch: Normal, Lower Extremity Light Touch: Normal Motor strength exam: RUE: 5, LUE: 5, RLE: 5, LLE: 5 Eye Response: (4) open spontaneously Motor Response: (6) obeys commands Verbal Response: (5) oriented Psychiatric exam: Present: normal affect, normal mood Skin exam: Present: diaphoretic Course Vital Signs 09/15/18 09/15/18 09/15/18 10:57 13:00 13:02 Temperature 98.9 F 98.9 F Pulse Rate 96 90 94 Respiratory 18 18 20 Rate Blood Pressure 144/94 158/96 O2 Sat by Pulse 96 98 97 Oximetry - Reevaluation(s) Reevaluation #1: 09/15/18 11:26 Code stroke was called at 1109. 09/15/18 11:37 Case was discussed with Dr. Lucas who will look at the films and agrees he does not feel patient is a candidate for TPA secondary to being on Eliquis and several previous brain surgeries 09/15/18 11:53 Ability to obtain a computed tomography scan has been limited secondary to patient twitching and not holding still. Patient has been given 3 of Ativan so far. 09/15/18 13:08 Case again discussed with Dr. lucas who did review CT and CTA. He has not feel patient needs immediate intervention however would like patient transferred for neurology evaluation and MRI. Patient has 2close friends present who states they're the closest thing to family that he has. They are agreeable with transfer to [facility]. Case was also discussed in detail with Dr. Scott, who will accept transfer. Medical Decision Making - Medical Decision Making Clinical suspicion is for posterior CVA either brainstem or cerebellum. Patient will benefit from MRI and neurology evaluation. Patient is being transferred to [facility]. Patient is somewhat drowsy at this time from 4 mg of Ativan however is still arousable. Patient is protecting his airway. Patient will be transferred by EMS. - Lab Data Result diagrams: 09/15/18 11:15 09/15/18 11:15 Lab Results 09/15/18 09/15/18 09/15/18 Range/Units 11:15 11:15 11:15 WBC 12.5 H (3.8-10.6) k/uL RBC 3.99 L (4.30-5.90) m/uL Hgb 12.3 L (13.0-17.5) gm/dL Hct 37.9 L (39.0-53.0) % MCV 95.0 (80.0-100.0) fL MCH 30.8 (25.0-35.0) pg MCHC 32.4 (31.0-37.0) g/dL RDW 13.0 (11.5-15.5) % Plt Count 176 (150-450) k/uL Neutrophils % 75 % Lymphocytes % 15 % Monocytes % 6 % Eosinophils % 1 % Basophils % 0 % Neutrophils # 9.4 H (1.3-7.7) k/uL Lymphocytes # 1.9 (1.0-4.8) k/uL Monocytes # 0.7 (0-1.0) k/uL Eosinophils # 0.2 (0-0.7) k/uL Basophils # 0.0 (0-0.2) k/uL PT 9.7 (9.0-12.0) sec INR 0.9 (<1.2) APTT 25.6 (22.0-30.0) sec Sodium 139 (137-145) mmol/L Potassium 5.0 (3.5-5.1) mmol/L Chloride 101 (98-107) mmol/L Carbon Dioxide 23 (22-30) mmol/L Anion Gap 15 mmol/L BUN 25 H (9-20) mg/dL Creatinine 1.11 (0.66-1.25) mg/dL Est GFR (CKD-EPI)AfAm 79 (>60 ml/min/1.73 sqM) Est GFR (CKD-EPI)NonAf 68 (>60 ml/min/1.73 sqM) Glucose 175 H (74-99) mg/dL Calcium 9.8 (8.4-10.2) mg/dL Total Bilirubin 0.7 (0.2-1.3) mg/dL AST 18 (17-59) U/L ALT 18 L (21-72) U/L Alkaline Phosphatase 53 (38-126) U/L Creatine Kinase 73 (55-170) U/L Troponin I (0.000-0.034) ng/mL Total Protein 7.1 (6.3-8.2) g/dL Albumin 4.4 (3.5-5.0) g/dL 09/15/18 Range/Units 11:15 WBC (3.8-10.6) k/uL RBC (4.30-5.90) m/uL Hgb (13.0-17.5) gm/dL Hct (39.0-53.0) % MCV (80.0-100.0) fL MCH (25.0-35.0) pg MCHC (31.0-37.0) g/dL RDW (11.5-15.5) % Plt Count (150-450) k/uL Neutrophils % % Lymphocytes % % Monocytes % % Eosinophils % % Basophils % % Neutrophils # (1.3-7.7) k/uL Lymphocytes # (1.0-4.8) k/uL Monocytes # (0-1.0) k/uL Eosinophils # (0-0.7) k/uL Basophils # (0-0.2) k/uL PT (9.0-12.0) sec INR (<1.2) APTT (22.0-30.0) sec Sodium (137-145) mmol/L Potassium (3.5-5.1) mmol/L Chloride (98-107) mmol/L Carbon Dioxide (22-30) mmol/L Anion Gap mmol/L BUN (9-20) mg/dL Creatinine (0.66-1.25) mg/dL Est GFR (CKD-EPI)AfAm (>60 ml/min/1.73 sqM) Est GFR (CKD-EPI)NonAf (>60 ml/min/1.73 sqM) Glucose (74-99) mg/dL Calcium (8.4-10.2) mg/dL Total Bilirubin (0.2-1.3) mg/dL AST (17-59) U/L ALT (21-72) U/L Alkaline Phosphatase (38-126) U/L Creatine Kinase (55-170) U/L Troponin I 0.019 (0.000-0.034) ng/mL Total Protein (6.3-8.2) g/dL Albumin (3.5-5.0) g/dL - Radiology Data Radiology results: report reviewed (Computed tomography scan of the head does no t reveal acute abnormality.), image reviewed (Chest x-ray shows cardiomegaly. Some vascular congestion.) Disposition Clinical Impression: Vertigo, CVA (cerebral vascular accident) Disposition: OTHER INSTITUTION NOT DEFINED Is patient prescribed a controlled substance at d/c from ED?: No Referrals: Damon Rodriguez MD [Primary Care Provider] - 1-2 days Time of Disposition: 13:13 - Out of Hospital Transfer - Req. Specs Out of Hospital Transfer - Requested Specifics: Other Emergency Center
[2018-09-15 11:42] LABS: Basophils % (A) 0 %; Eosinophils # (A) 0.2 k/uL (0-0.7); Eosinophils % (A) 1 %; HCT 37.9 % (39.0-53.0); HGB 12.3 gm/dL (13.0-17.5); Lymphocytes # (A) 1.9 k/uL (1.0-4.8); Lymphocytes % (A) 15 %; MCH 30.8 pg (25.0-35.0); MCHC 32.4 g/dL (31.0-37.0); Mean Platelet Volume 6.9; Monocytes # (A) 0.7 k/uL (0-1.0); Monocytes % (A) 6 %; Neutrophils # (A) 9.4 k/uL (1.3-7.7); Neutrophils % (A) 75 %; Platelet Count 176 k/uL (150-450); RBC 3.99 m/uL (4.30-5.90); WBC 12.5 k/uL (3.8-10.6)
[2018-09-15 11:48] LABS: Albumin 4.4 g/dL (3.5-5.0); Calcium 9.8 mg/dL (8.4-10.2); Total Bilirubin 0.7 mg/dL (0.2-1.3); Total Protein 7.1 g/dL (6.3-8.2)
[2018-09-15 11:49] LABS: INR 0.9 (<1.2); Partial Thromboplastin Time 25.6 sec (22.0-30.0); Prothrombin Time 9.7 sec (9.0-12.0)
--- NOTE | 2018-09-15 12:19 | CT ---
EXAMINATION TYPE: CT brain wo con for TPA DATE OF EXAM: 09/15/2018 COMPARISON: Previous study dated 01/13/2018. HISTORY: Patient unable to communicate. CT DLP: 2797.8 mGycm Automated exposure control for dose reduction was used. FINDINGS: The study suffers from motion artifact in spite of 2 attempts. There is been a previous right occipital craniotomy. Central structures are midline. There is no evidence of hydrocephalus. No acute focal lesion, mass ef fect or midline shift is seen. I do not see evidence of intracranial blood. And mastoids are clear. IMPRESSION: 1. SUBOPTIMAL EXAMINATION DEMONSTRATING NO DEFINITE ACUTE ABNORMALITY. 2. POSTSURGICAL CHANGE.
--- NOTE | 2018-09-15 12:20 | XR ---
EXAMINATION TYPE: XR chest 1V DATE OF EXAM: 09/15/2018 HISTORY: altered mental status. REFERENCE: Previous study dated 01/13/2018. FINDINGS: There is chronic apparent elevation right hemidiaphragm. The heart is mildly enlarged. Ther e is vascular congestion without francoise edema. Pleural spaces are clear. IMPRESSION: MILD CARDIOMEGALY AND VASCULAR CONGESTION.
--- NOTE | 2018-09-15 12:59 | CT ---
EXAMINATION TYPE: CT brain wo con DATE OF EXAM: 09/15/2018 COMPARISON: Scan of earlier today HISTORY: Repeat scan CT DLP: 1190 mGycm Automated exposure control for dose reduction was used. FINDINGS: Central structures are midline. There is no evidence of hydrocephalus. No acute focal lesion, mass ef fect or midline shift is seen. I do not see evidence of intracranial blood. Previous right occipital craniotomy. The bony calvarium is otherwise intact. Visualized portions of t he paranasal sinuses and mastoids are clear. IMPRESSION: 1. NO ACUTE INTRACRANIAL ABNORMALITY. 2. POSTSURGICAL CHANGE.
[2018-09-15] MEDS ORDERED: ASPIRIN 300 MG SUPP RECTAL STA (13:13)
--- NOTE | 2018-09-15 13:26 | CT ---
EXAMINATION TYPE: CT angio head neck DATE OF EXAM: 09/15/2018 HISTORY: patient unable to communicate COMPARISON: None. CT DLP: 752.3 mGycm. Automated Exposure Control for Dose Reduction was Utilized. TECHNIQUE: CTA scan of the neck is performed with IV Contrast, patient injected with 50 mL of Isovue 370, axial images are obtained, coronal and sagittal reformatted images are reviewed. Three-D recons tructed images are created on an independent workstation and reviewed. FINDINGS: There is dependent atelectasis within the dependent portions of the lungs. Prevertebral sof t tissues are normal. The major salivary glands are normal. Visualized portions of the paranasal sinu ses and mastoids are clear. Vertebral body height and alignment are normal. Atlantoaxial relationships are normal. There is disc space loss present at C5-6 and C6-7 and to a lesser extent C4-5. There are flowing osteophytes presen t at C2-3, C5-6 and C6-7 as well as T1 to. There is mild, diffuse uncovertebral joint disease. There is mild facet arthropathy on the right at C2-3 and C3-4 as well as C4-5. There is a normal origin of the great vessels. The vertebral arteries are codominant. There is no significant atheromatous plaque at the level of the carotid bulbs. There is no significan t stenosis in either carotid bulb. There is poor visualization of the cerebral circulation outside of the posterior circulation within t he CTA of the [place]. The posterior circulation appears unremarkable. Both anterior cerebra l arteries opacify slightly. Neither MCA trifurcation is seen. Well. Only partial visualization of th e supraclinoid carotid and M1 segment of the middle cerebral arteries are visualized. No large aneury sm is visualized. IMPRESSION: 1. NO SIGNIFICANT CAROTID STENOSIS IN EITHER CAROTID BULB. 2. POOR VISUALIZATION OF THE [place]. 3. SIGNIFICANT DEGENERATIVE CHANGES WITHIN THE SPINE.
[2018-09-15 14:29] VITALS: BP 133/83; PULSE 80; RESP 18
== END 2018-09-15 14:27 | disposition other institution (70) ==
LOC: EC 10:46
DX: I63.9 Cerebral infarction, unspecified (principal); R29.706 NIHSS score 6; I48.91 Unspecified atrial fibrillation; E11.9 Type 2 diabetes mellitus without complications; K21.9 Gastro-esophageal reflux disease without esophagitis; I10 Essential (primary) hypertension; M19.90 Unspecified osteoarthritis, unspecified site; Z86.14 Personal history of Methicillin resistant Staphylococcus aureus infection; Z87.891 Personal history of nicotine dependence; Z98.890 Other specified postprocedural states; Z79.82 Long term (current) use of aspirin; Z79.01 Long term (current) use of anticoagulants; Z79.84 Long term (current) use of oral hypoglycemic drugs; Z79.891 Long term (current) use of opiate analgesic; Z79.899 Other long term (current) drug therapy; Z88.1 Allergy status to other antibiotic agents; Z88.0 Allergy status to penicillin
CPT/HCPCS: 36415; 93005; 80053; 82550; 84484; 85025; 85610; 85730; 71045; 70496; 70450 ×2; 70498; 99285; 96374; 96375; 96376; 96361; J2060; J2765; Q9967

== ENCOUNTER 2018-12-07 16:18 | Emergency (ER) | payer MEDICARE ==
--- NOTE | 2018-12-07 17:19 | ED ---
General Adult HPI - General Chief complaint: Syncope Stated complaint: Syncope Time Seen by Provider: 12/07/18 16:46 Source: patient, EMS, RN notes reviewed Mode of arrival: EMS Limitations: no limitations - History of Present Illness Initial comments: Patient is a pleasant 60-year-old male presenting to the emergency Department with complaints of vertigo. Patient states he has chronic vertigo and has had several surgeries previously. Patient states his vertigo started acting up on him again today. Patient did have a fall. Patient is unclear why he fell and states it may have been from his vertigo or he may have slipped. Patient does believe he struck his head during the fall. Patient complains of moderate discomfort left side of his head where he struck it. Patient believes he may have lost consciousness. Patient complains of sharp more severe discomfort behind the right eye. Patient does have history of that previously. Patient a lso has had previously of 3 previous brainstem surgeries for his vertigo. Last surgery was approximately one year ago. Patient states vertigo remained severe at this time. Vertigo is positional. Patient states he normally does have difficulty with finishing his sentences medicine did not a new finding for him. Patient denies any isolated area of weakness. Patient does complain of some discomfort of his right ankle and lower back that he feels she injured during the fall. - Related Data Home Medications Medication Instructions Recorded Confirmed Atorvastatin [Lipitor] 10 mg PO DAILY 10/08/15 12/07/18 Baclofen [Lioresal] 20 mg PO TID PRN 04/03/17 12/07/18 DULoxetine HCL [Cymbalta] 30 mg PO HS 09/15/18 12/07/18 DULoxetine HCL [Cymbalta] 60 mg PO DAILY 09/15/18 12/07/18 Gabapentin [Neurontin] 100 mg PO BID 09/15/18 12/07/18 HYDROcodone/APAP 5-325MG [[place] 1 tab PO TID 09/15/18 12/07/18 5-325] Lisinopril [Zestril] 20 mg PO BID 09/15/18 12/07/18 Allergies Allergy/AdvReac Type Severity Reaction Status Date / Time cephalexin monohydrate Allergy Anaphylaxis Verified 12/07/18 17:23 [From Keflex] Cephalosporins Allergy Unknown Verified 12/07/18 17:23 Penicillins Allergy Anaphylaxis Verified 12/07/18 17:23 Review of Systems ROS Statement: Those systems with pertinent positive or pertinent negative responses have been documented in the HPI. ROS Other: All systems not noted in ROS Statement are negative. Constitutional: Denies: fever Eyes: Denies: eye pain ENT: Denies: ear pain Respiratory: Denies: cough Cardiovascular: Denies: chest pain Endocrine: Denies: fatigue Gastrointestinal: Denies: abdominal pain Genitourinary: Denies: dysuria Musculoskeletal: Reports: back pain (Patient has some lower back discomfort that he feels he injured during the fall) Skin: Denies: rash Neurological: Reports: headache, vertigo. Denies: weakness, numbness, paresthesias, confusion Past Medical History Past Medical History: Atrial Fibrillation, Diabetes Mellitus, GERD/Reflux, Hypertension, Osteoarthritis (OA), Pneumonia Additional Past Medical History / Comment(s): 03-10-16 FELL/FX RT FIBULA, VERTIGO chronic headaches History of Any Multi-Drug Resistant Organisms: MRSA Date of last positivie culture/infection: feb 2017 MDRO Source:: mrsa Past Surgical History: Back Surgery, Orthopedic Surgery Additional Past Surgical History / Comment(s): Bilateral mastectomy with right sided lymp node removal, rt. knee cap removed, back surgery for herniated disc., Brain stem surgery for decompression-for dizziness, right ankle ORIF Past Anesthesia/Blood Transfusion Reactions: No Reported Reaction Past Psychological History: No Psychological Hx Reported Smoking Status: Former smoker Past Alcohol Use History: None Reported Past Drug Use History: None Reported - Past Family History Father History Unknown: Yes Family Medical History: Congestive Heart Failure (CHF) Mother History Unknown: Yes Family Medical History: Hypertension Additional Family Medical History / Comment(s): pulmonary hypertension General Exam Limitations: no limitations General appearance: alert, in no apparent distress Head exam: Present: atraumatic, normocephalic Eye exam: Present: normal appearance, PERRL, EOMI ENT exam: Present: normal oropharynx Neck exam: Present: normal inspection. Absent: tenderness Respiratory exam: Present: normal lung sounds bilaterally Cardiovascular Exam: Present: regular rate, normal rhythm GI/Abdominal exam: Present: soft. Absent: tenderness Extremities exam: Present: tenderness (Mild tenderness and swelling right ankle) Back exam: Present: tenderness (Mild Tenderness mid to lower lumbar spine) Neurological exam: Present: alert, oriented X3, CN II-XII intact, other (Patient is laid with finishing sentences however he feels this is chronic.). Absent: motor sensory deficit Psychiatric exam: Present: normal affect, normal mood Skin exam: Present: normal color Course Vital Signs 12/07/18 12/07/18 16:46 19:21 Temperature 98.1 F 97.9 F Pulse Rate 70 80 Respiratory 16 20 Rate Blood Pressure 123/86 133/72 O2 Sat by Pulse 97 96 Oximetry EKG Findings - EKG Comments: EKG Findings:: Normal sinus rhythm 86. MI 162. QRS 94. QT 370. QTc 442. Left axis. Normal QRS. No acute ST change. Medical Decision Making - Medical Decision Making Patient reevaluated without much improvement of symptoms. Patient and family updated on results. Patient previously has seen Dr. Ferraro at [facility]. Case was discussed with Dr. Marshall who will accept transfer. - Lab Data Result diagrams: 12/07/18 16:49 12/07/18 16:49 Lab Results 12/07/18 12/07/18 12/07/18 Range/Units 16:49 16:49 16:49 WBC 9.2 (3.8-10.6) k/uL RBC 3.92 L (4.30-5.90) m/uL Hgb 12.6 L (13.0-17.5) gm/dL Hct 37.2 L (39.0-53.0) % MCV 94.9 (80.0-100.0) fL MCH 32.3 (25.0-35.0) pg MCHC 34.0 (31.0-37.0) g/dL RDW 13.2 (11.5-15.5) % Plt Count 241 (150-450) k/uL Neutrophils % 67 % Lymphocytes % 17 % Monocytes % 6 % Eosinophils % 7 % Basophils % 1 % Neutrophils # 6.2 (1.3-7.7) k/uL Lymphocytes # 1.6 (1.0-4.8) k/uL Monocytes # 0.6 (0-1.0) k/uL Eosinophils # 0.6 (0-0.7) k/uL Basophils # 0.1 (0-0.2) k/uL PT 9.7 (9.0-12.0) sec INR 0.9 (<1.2) APTT 23.9 (22.0-30.0) sec Sodium 141 (137-145) mmol/L Potassium 4.6 (3.5-5.1) mmol/L Chloride 107 (98-107) mmol/L Carbon Dioxide 22 (22-30) mmol/L Anion Gap 12 mmol/L BUN 25 H (9-20) mg/dL Creatinine 1.15 (0.66-1.25) mg/dL Est GFR (CKD-EPI)AfAm 76 (>60 ml/min/1.73 sqM) Est GFR (CKD-EPI)NonAf 66 (>60 ml/min/1.73 sqM) Glucose 135 H (74-99) mg/dL Calcium 9.8 (8.4-10.2) mg/dL Magnesium (1.6-2.3) mg/dL Total Bilirubin 0.5 (0.2-1.3) mg/dL AST 26 (17-59) U/L ALT 22 (21-72) U/L Alkaline Phosphatase 48 (38-126) U/L Creatine Kinase 130 (55-170) U/L Troponin I (0.000-0.034) ng/mL Total Protein 7.4 (6.3-8.2) g/dL Albumin 4.4 (3.5-5.0) g/dL 12/07/18 12/07/18 Range/Units 16:49 16:49 WBC (3.8-10.6) k/uL RBC (4.30-5.90) m/uL Hgb (13.0-17.5) gm/dL Hct (39.0-53.0) % MCV (80.0-100.0) fL MCH (25.0-35.0) pg MCHC (31.0-37.0) g/dL RDW (11.5-15.5) % Plt Count (150-450) k/uL Neutrophils % % Lymphocytes % % Monocytes % % Eosinophils % % Basophils % % Neutrophils # (1.3-7.7) k/uL Lymphocytes # (1.0-4.8) k/uL Monocytes # (0-1.0) k/uL Eosinophils # (0-0.7) k/uL Basophils # (0-0.2) k/uL PT (9.0-12.0) sec INR (<1.2) APTT (22.0-30.0) sec Sodium (137-145) mmol/L Potassium (3.5-5.1) mmol/L Chloride (98-107) mmol/L Carbon Dioxide (22-30) mmol/L Anion Gap mmol/L BUN (9-20) mg/dL Creatinine (0.66-1.25) mg/dL Est GFR (CKD-EPI)AfAm (>60 ml/min/1.73 sqM) Est GFR (CKD-EPI)NonAf (>60 ml/min/1.73 sqM) Glucose (74-99) mg/dL Calcium (8.4-10.2) mg/dL Magnesium 1.4 L (1.6-2.3) mg/dL Total Bilirubin (0.2-1.3) mg/dL AST (17-59) U/L ALT (21-72) U/L Alkaline Phosphatase (38-126) U/L Creatine Kinase (55-170) U/L Troponin I 0.020 (0.000-0.034) ng/mL Total Protein (6.3-8.2) g/dL Albumin (3.5-5.0) g/dL - Radiology Data Radiology results: report reviewed (Computed tomography scan of the brain shows stable. Craniotomy. No acute process. CT angios shows mild narrowing left ICA. No aneurysmal changes.), image reviewed (Lumbar spine shows no acute fracture or dislocation.DISH x-ray of the right ankle shows previous fracture. Slightly widened right mortise space. Chest x-ray shows no acute process.) Disposition Clinical Impression: Vertigo, Headache, Syncope Disposition: OTHER INSTITUTION NOT DEFINED Is patient prescribed a controlled substance at d/c from ED?: No Referrals: Damon Rodriguez MD [Primary Care Provider] - 1-2 days Time of Disposition: 20:55 - Out of Hospital Transfer - Req. Specs Out of Hospital Transfer - Requested Specifics: Other Emergency Center
[2018-12-07 17:30] LABS: Basophils # (A) 0.1 k/uL (0-0.2); Basophils % (A) 1 %; Eosinophils # (A) 0.6 k/uL (0-0.7); Eosinophils % (A) 7 %; HCT 37.2 % (39.0-53.0); HGB 12.6 gm/dL (13.0-17.5); Lymphocytes # (A) 1.6 k/uL (1.0-4.8); Lymphocytes % (A) 17 %; MCH 32.3 pg (25.0-35.0); MCV 94.9 fL (80.0-100.0); Mean Platelet Volume 7.4; Monocytes # (A) 0.6 k/uL (0-1.0); Monocytes % (A) 6 %; Neutrophils # (A) 6.2 k/uL (1.3-7.7); Neutrophils % (A) 67 %; Platelet Count 241 k/uL (150-450); RBC 3.92 m/uL (4.30-5.90); RDW 13.2 % (11.5-15.5); WBC 9.2 k/uL (3.8-10.6)
--- NOTE | 2018-12-07 17:40 | XR ---
EXAMINATION TYPE: XR ankle complete RT DATE OF EXAM: 12/07/2018 COMPARISON: NONE HISTORY: 58-year-old male fall pain TECHNIQUE: 3 views FINDINGS: Lateral sideplate and screw fixation of the distal fibula. Ankle mortise appears congruent. There is mild medial clear space widening at nearly 5 mm. Ossific densities below the medial malleolus appear corticated and are probably chronic. Talar dome is intact. Moderate sized posterior and plantar calca marily spurs. No acute fracture is otherwise seen. IMPRESSION: Medial clear space is slightly widened measuring 5 mm. Unable to exclude deltoid ligament injury. Cor relate for point tenderness medially. Uncomplicated plate and screw fixation distal fibula.
--- NOTE | 2018-12-07 17:41 | XR ---
EXAMINATION TYPE: XR chest 2V DATE OF EXAM: 12/07/2018 COMPARISON: 09/15/2018 HISTORY: 68-year-old male syncope TECHNIQUE: AP and lateral views FINDINGS: Low lung volumes and cardiovascular markings. Hazy lower lung densities likely related to overlying s oft tissue. Heart size is accentuated, likely borderline in size. No definite consolidation or pleura l effusion allowing for above-mentioned limitations. IMPRESSION: Hypoventilatory changes. No definite acute cardiopulmonary process.
[2018-12-07 17:43] LABS: Albumin 4.4 g/dL (3.5-5.0); Calcium 9.8 mg/dL (8.4-10.2); INR 0.9 (<1.2); Partial Thromboplastin Time 23.9 sec (22.0-30.0); Potassium 4.6 mmol/L (3.5-5.1); Prothrombin Time 9.7 sec (9.0-12.0); Total Bilirubin 0.5 mg/dL (0.2-1.3); Total Protein 7.4 g/dL (6.3-8.2)
--- NOTE | 2018-12-07 17:43 | XR ---
EXAMINATION TYPE: XR lumbosacral spine min 4V DATE OF EXAM: 12/07/2018 COMPARISON: NONE HISTORY: 68-year-old male with pain after fall TECHNIQUE: 6 views FINDINGS: Bridging lateral endplate spondylosis on the right at L1-L2. Anteriorly upper to mid lumbar spine. 5 lumbar type vertebral bodies. No pars interarticularis defect. Moderate endplate spondylosis througho ut. Hypertrophic facet arthropathy. Vertebral body heights are maintained. Alignment is preserved. IMPRESSION: Findings suggest dish. Hypertrophic facet arthropathy. No vertebral compression collapse or malalignm ent.
--- NOTE | 2018-12-07 18:47 | CT ---
EXAMINATION TYPE: CT brain wo con DATE OF EXAM: 12/07/2018 COMPARISON: 09/15/2018 HISTORY: 68-year-old male Vertigo, syncope. TECHNIQUE: Examination was done in axial plane without intravenous contrast. Coronal and sagittal r econstructions performed. CT DLP: 1665 mGycm Automated exposure control for dose reduction was used. FINDINGS: There is no evidence of acute intracranial hemorrhage, acute ischemic changes, mass, mass-effect, or extra-axial fluid collection. There is no effacement of cerebral sulci or basal subarachnoid cister ns. There is no hydrocephalus. There is no midline shift. Clark-white matter distinction is preserv ed. Prior posterior right lateral occipital craniectomy. Some bulging CSF here to the defect is unchanged . Empty sella incidentally noted. Paranasal sinuses and mastoid air cells well pneumatized. Orbits and globes are intact. IMPRESSION: No acute intracranial abnormality seen. Stable right lateral occipital craniectomy.
--- NOTE | 2018-12-07 18:55 | CT ---
EXAMINATION TYPE: CT angio head DATE OF EXAM: 12/07/2018 COMPARISON: 09/15/2018 HISTORY: 68-year-old male Vertigo, syncope. TECHNIQUE: Contiguous axial scanning of the [place] performed with IV Contrast, patient inje cted with 100 mL of Isovue 300. Coronal/sagittal MIP reconstructions performed. 3-D reconstructions g enerated on a dedicated independent workstation. CT DLP: 1096.8 mGycm Automated exposure control for dose reduction was used. FINDINGS: The vertebral and basilar arteries are patent. Mild atelectatic narrowing within the supraclinoid lef t ICA. No ICA occlusion on either side. Anterior circulation remains patent without significant steno sis or aneurysmal change. Posterior circulation is also patent without aneurysmal change. IMPRESSION: NO LARGE VESSEL INTRACRANIAL ARTERIAL OCCLUSION. NO SIGNIFICANT STENOSIS SEEN. THERE IS MILD ATHEROSC LEROTIC NARROWING WITHIN THE SUPRACLINOID LEFT ICA. NO ANEURYSMAL CHANGES IDENTIFIED IN THE [place].
[2018-12-07 19:22] VITALS: TEMP 97.9
[2018-12-07] MEDS ORDERED: MORPHINE SULFATE 4 MG/ML SYRINGE IM STA (19:40)
[2018-12-07] MEDS ORDERED: MAGNESIUM OXIDE 400 MG TAB PO STA (19:46)
[2018-12-07] MEDS ORDERED: MECLIZINE 12.5 MG TAB PO STA (19:47)
[2018-12-07] MEDS ORDERED: METOCLOPRAMIDE 5 MG/ML 2 ML VIAL IVP STA (19:47)
[2018-12-07] MEDS ORDERED: MORPHINE SULFATE 4 MG/ML SYRINGE IV STA (20:58)
[2018-12-07] MEDS ORDERED: DIAZEPAM 5 MG/ML 2 ML INJ IVP STA (21:00)
[2018-12-07 21:54] VITALS: BP 141/86; PULSE 83; RESP 18
== END 2018-12-07 23:24 | disposition other institution (70) ==
LOC: EC 16:18
DX: R55 Syncope and collapse (principal); R42 Dizziness and giddiness; I10 Essential (primary) hypertension; Z79.899 Other long term (current) drug therapy; Z88.0 Allergy status to penicillin; Z88.1 Allergy status to other antibiotic agents; Z87.891 Personal history of nicotine dependence; Z90.13 Acquired absence of bilateral breasts and nipples
CPT/HCPCS: 36415; 93005; 80053; 82550; 83735; 84484; 85025; 85610; 85730; 72110; 73610; 71046; 70496; 70450; 99285; 96374; 96375 ×2; 96372; J2270; J2765; J3360; Q9967

== ENCOUNTER 2018-12-17 13:37 | Inpatient (IN) | payer MEDICARE ==
[2018-12-17 13:45] LABS: Glucose,Whole Blood 179 mg/dL (75-99)
[2018-12-17] MEDS ORDERED: SODIUM CHLORIDE 0.9% 1,000 ML IV STA (13:48)
--- NOTE | 2018-12-17 13:54 | ED ---
General Adult HPI - General Chief complaint: Neuro Symptoms/Deficit Stated complaint: altered mental status Time Seen by Provider: 12/17/18 13:37 Source: patient, family, EMS, RN notes reviewed Mode of arrival: EMS Limitations: no limitations - History of Present Illness Initial comments: This is a 68-year-old male was brought in by EMS after being found on the floor in supine position. Is unknown when the events occurred he does not know how he got on the floor and cannot answer initially demonstrated some right upper extremity weakness in both lower extremities were weak this is since resolved per his son he may have taken too many of his medication. He last spoke to him last evening. No reports of fevers chills nausea vomiting sweats he does have a history of cervical spinous vascular disease. He has some nausea vomiting. No urinary or fecal incontinence. - Related Data Home Medications Medication Instructions Recorded Confirmed Atorvastatin [Lipitor] 10 mg PO DAILY 10/08/15 12/17/18 Baclofen [Lioresal] 20 mg PO BID 04/03/17 12/17/18 DULoxetine HCL [Cymbalta] 30 mg PO HS 09/15/18 12/17/18 DULoxetine HCL [Cymbalta] 60 mg PO DAILY 09/15/18 12/17/18 Gabapentin [Neurontin] 100 mg PO BID 09/15/18 12/17/18 Lisinopril [Zestril] 20 mg PO BID 09/15/18 12/17/18 Apixaban [Eliquis] 2.5 mg PO BID 12/17/18 12/17/18 Metoprolol Tartrate [Lopressor] 50 mg PO BID 12/17/18 12/17/18 metFORMIN HCL [Glucophage] 500 mg PO BID 12/17/18 12/17/18 Allergies Allergy/AdvReac Type Severity Reaction Status Date / Time cephalexin monohydrate Allergy Anaphylaxis Verified 12/17/18 14:29 [From Keflex] Cephalosporins Allergy Unknown Verified 12/17/18 14:29 Penicillins Allergy Anaphylaxis Verified 12/17/18 14:29 Review of Systems ROS Statement: Those systems with pertinent positive or pertinent negative responses have been documented in the HPI. ROS Other: All systems not noted in ROS Statement are negative. Past Medical History Past Medical History: Atrial Fibrillation, Diabetes Mellitus, GERD/Reflux, Hypertension, Osteoarthritis (OA), Pneumonia Additional Past Medical History / Comment(s): 03-10-16 FELL/FX RT FIBULA, VERTIGO chronic headaches History of Any Multi-Drug Resistant Organisms: MRSA Date of last positivie culture/infection: feb 2017 MDRO Source:: mrsa Past Surgical History: Back Surgery, Orthopedic Surgery Additional Past Surgical History / Comment(s): Bilateral mastectomy with right sided lymp node removal, rt. knee cap removed, back surgery for herniated disc., Brain stem surgery for decompression-for dizziness, right ankle ORIF Past Anesthesia/Blood Transfusion Reactions: No Reported Reaction Past Psychological History: No Psychological Hx Reported Smoking Status: Former smoker Past Alcohol Use History: None Reported Past Drug Use History: None Reported - Past Family History Father History Unknown: Yes Family Medical History: Congestive Heart Failure (CHF) Mother History Unknown: Yes Family Medical History: Hypertension Additional Family Medical History / Comment(s): pulmonary hypertension General Exam - General Exam Comments Initial Comments: This a well-developed well-nourished awake but confused male Limitations: no limitations General appearance: alert Head exam: Present: atraumatic, normocephalic, normal inspection Eye exam: Present: normal appearance, PERRL, EOMI. Absent: scleral icterus, conjunctival injection, periorbital swelling ENT exam: Present: normal exam, mucous membranes moist Neck exam: Present: normal inspection, full ROM, other (No stridor JVD or bruits). Absent: tenderness, meningismus, lymphadenopathy Respiratory exam: Present: normal lung sounds bilaterally. Absent: respiratory distress, wheezes, rales, rhonchi, stridor Cardiovascular Exam: Present: regular rate, normal rhythm, normal heart sounds. Absent: systolic murmur, diastolic murmur, rubs, gallop, clicks GI/Abdominal exam: Present: soft, normal bowel sounds. Absent: distended, tenderness, guarding, rebound, rigid Extremities exam: Present: normal inspection, full ROM, normal capillary refill. Absent: tenderness, pedal edema, joint swelling, calf tenderness Back exam: Present: normal inspection Neurological exam: Present: alert, altered, CN II-XII intact. Absent: motor sensory deficit Psychiatric exam: Present: normal affect, normal mood Skin exam: Present: warm, dry, intact, normal color. Absent: rash Course Vital Signs 12/17/18 12/17/18 13:40 13:45 Temperature 98.5 F Pulse Rate 83 72 Respiratory 20 20 Rate Blood Pressure 133/88 O2 Sat by Pulse 133 H Oximetry EKG Findings - EKG Results: EKG: interpreted by KEVAN, sinus rhythm (Sinus rhythm with PACs rate 74. Interval was 78 QRS duration 90 QT since QTC 388/4:30 old inferior changes marked artifact present) Medical Decision Making - Medical Decision Making I did discuss findings with the patient's son who was present as well as with Dr. Rodriguez. Patient will be admitted for evaluation. The patient's son does suspect he may be taking too much of his narcotic pain medication there was evidence of some initial right upper extremity weakness which has resolved so TIA is not ruled out. Neurology will be consulted. Other testing is pending. Patient does demonstrate evidence of some dehydration as well as elevated CPK. He will receive IV fluids - Lab Data Result diagrams: 12/17/18 13:53 12/17/18 13:53 Lab Results 12/17/18 12/17/18 12/17/18 Range/Units 13:43 13:53 13:53 WBC 9.7 (3.8-10.6) k/uL RBC 4.33 (4.30-5.90) m/uL Hgb 13.5 (13.0-17.5) gm/dL Hct 40.8 (39.0-53.0) % MCV 94.2 (80.0-100.0) fL MCH 31.3 (25.0-35.0) pg MCHC 33.2 (31.0-37.0) g/dL RDW 13.2 (11.5-15.5) % Plt Count 214 (150-450) k/uL Neutrophils % 84 % Lymphocytes % 10 % Monocytes % 4 % Eosinophils % 1 % Basophils % 0 % Neutrophils # 8.1 H (1.3-7.7) k/uL Lymphocytes # 0.9 L (1.0-4.8) k/uL Monocytes # 0.4 (0-1.0) k/uL Eosinophils # 0.1 (0-0.7) k/uL Basophils # 0.0 (0-0.2) k/uL PT (9.0-12.0) sec INR (<1.2) APTT (22.0-30.0) sec Sodium 142 (137-145) mmol/L Potassium 5.1 (3.5-5.1) mmol/L Chloride 108 H (98-107) mmol/L Carbon Dioxide 22 (22-30) mmol/L Anion Gap 12 mmol/L BUN 31 H (9-20) mg/dL Creatinine 1.73 H (0.66-1.25) mg/dL Est GFR (CKD-EPI)AfAm 46 (>60 ml/min/1.73 sqM) Est GFR (CKD-EPI)NonAf 40 (>60 ml/min/1.73 sqM) Glucose 189 H (74-99) mg/dL POC Glucose (mg/dL) 179 H (75-99) mg/dL POC Glu [employer] [place] Brown Calcium 9.8 (8.4-10.2) mg/dL Total Bilirubin 0.5 (0.2-1.3) mg/dL AST 24 (17-59) U/L ALT 21 (21-72) U/L Alkaline Phosphatase 62 (38-126) U/L Ammonia (<30) umol/L Creatine Kinase 306 H (55-170) U/L Troponin I (0.000-0.034) ng/mL Total Protein 7.8 (6.3-8.2) g/dL Albumin 4.6 (3.5-5.0) g/dL 12/17/18 12/17/18 12/17/18 Range/Units 13:53 13:53 13:53 WBC (3.8-10.6) k/uL RBC (4.30-5.90) m/uL Hgb (13.0-17.5) gm/dL Hct (39.0-53.0) % MCV (80.0-100.0) fL MCH (25.0-35.0) pg MCHC (31.0-37.0) g/dL RDW (11.5-15.5) % Plt Count (150-450) k/uL Neutrophils % % Lymphocytes % % Monocytes % % Eosinophils % % Basophils % % Neutrophils # (1.3-7.7) k/uL Lymphocytes # (1.0-4.8) k/uL Monocytes # (0-1.0) k/uL Eosinophils # (0-0.7) k/uL Basophils # (0-0.2) k/uL PT 9.8 (9.0-12.0) sec INR 0.9 (<1.2) APTT 28.9 (22.0-30.0) sec Sodium (137-145) mmol/L Potassium (3.5-5.1) mmol/L Chloride (98-107) mmol/L Carbon Dioxide (22-30) mmol/L Anion Gap mmol/L BUN (9-20) mg/dL Creatinine (0.66-1.25) mg/dL Est GFR (CKD-EPI)AfAm (>60 ml/min/1.73 sqM) Est GFR (CKD-EPI)NonAf (>60 ml/min/1.73 sqM) Glucose (74-99) mg/dL POC Glucose (mg/dL) (75-99) mg/dL POC Glu Fire[employer]ighter [employer] ID Calcium (8.4-10.2) mg/dL Total Bilirubin (0.2-1.3) mg/dL AST (17-59) U/L ALT (21-72) U/L Alkaline Phosphatase (38-126) U/L Ammonia <9 (<30) umol/L Creatine Kinase (55-170) U/L Troponin I <0.012 (0.000-0.034) ng/mL Total Protein (6.3-8.2) g/dL Albumin (3.5-5.0) g/dL - Radiology Data Radiology results: report reviewed (I did review the imaging and report no acute findings.), image reviewed Disposition Clinical Impression: Transient cerebral ischemia, Confusion, Dehydration Disposition: ADMITTED IP TO THIS [facility] Condition: Fair Referrals: Damon Rodriguez MD [Primary Care Provider] - 1-2 days
[2018-12-17 14:11] LABS: Basophils % (A) 0 %; Eosinophils # (A) 0.1 k/uL (0-0.7); Eosinophils % (A) 1 %; HCT 40.8 % (39.0-53.0); HGB 13.5 gm/dL (13.0-17.5); Lymphocytes # (A) 0.9 k/uL (1.0-4.8); Lymphocytes % (A) 10 %; MCH 31.3 pg (25.0-35.0); MCHC 33.2 g/dL (31.0-37.0); MCV 94.2 fL (80.0-100.0); Monocytes # (A) 0.4 k/uL (0-1.0); Monocytes % (A) 4 %; Neutrophils # (A) 8.1 k/uL (1.3-7.7); Neutrophils % (A) 84 %; Platelet Count 214 k/uL (150-450); RBC 4.33 m/uL (4.30-5.90); RDW 13.2 % (11.5-15.5); WBC 9.7 k/uL (3.8-10.6)
[2018-12-17 14:16] LABS: INR 0.9 (<1.2); Partial Thromboplastin Time 28.9 sec (22.0-30.0); Prothrombin Time 9.8 sec (9.0-12.0)
[2018-12-17 14:19] LABS: Albumin 4.6 g/dL (3.5-5.0); Calcium 9.8 mg/dL (8.4-10.2); Potassium 5.1 mmol/L (3.5-5.1); Total Bilirubin 0.5 mg/dL (0.2-1.3); Total Protein 7.8 g/dL (6.3-8.2)
--- NOTE | 2018-12-17 14:30 | CT ---
EXAMINATION TYPE: CT brain wo con DATE OF EXAM: 12/17/2018 COMPARISON: 12/07/2018 HISTORY: Neurologic deficits CT DLP: 1099.4 mGycm Automated exposure control for dose reduction was used. TECHNIQUE: CT scan of the head is performed without contrast. FINDINGS: Right occipital craniectomy change with encephalomalacia of the right cerebellar hemispher e laterally. This is stable from the prior exam. There is no acute intracranial hemorrhage or midline shift identified. There is diffuse ventricular and sulcal prominence consistent with diffuse age-rel ated cerebral atrophy. There is low-attenuation in the periventricular white matter consistent with chronic small vessel ischemic change. The globes are intact. Rightward nasal septal deviation is rafa ntified. Minimal ethmoid mucosal thickening and aplastic frontal sinuses. Remaining paranasal sinuses and mastoid air cells are well aerated. Incidentally noted partially empty sella turcica. IMPRESSION: No acute intracranial hemorrhage or midline shift. There is diffuse age-related cerebra l atrophy and chronic small vessel ischemic change noted.
--- NOTE | 2018-12-17 14:32 | XR ---
EXAMINATION TYPE: XR chest 2V DATE OF EXAM: 12/17/2018 COMPARISON: 12/07/2018 HISTORY: Altered mental status TECHNIQUE: Frontal and lateral views of the chest are obtained. FINDINGS: The lungs are hypoventilatory. Retrocardiac airspace disease as developed in the interim o bscuring the costophrenic angle and left hemidiaphragm lateral border. Trace pleural effusions versus chronic pleural reaction blunt the costophrenic angles. Cardiomediastinal silhouette is again enlarg ed. No pneumothorax is seen. Osseous structures appear intact. IMPRESSION: Retrocardiac airspace disease may relate to atelectasis given hypoventilation. Trace ple ural effusions versus chronic pleural reaction.
[2018-12-17 17:51] LABS: Appearance,Urine Clear (Clear); Bilirubin,Urine Negative (Negative); Blood,Urine Negative (Negative); Color,Urine Yellow; Glucose,Urine (UA) Negative (Negative); Ketones,Urine Negative (Negative); Leukocyte Esterase,Urine Negative (Negative); Nitrite,Urine Negative (Negative); Protein,Urine Trace (Negative); Specific Gravity,Urine 1.023 (1.001-1.035); Urobilinogen,Urine <2.0 mg/dL (<2.0)
[2018-12-17 18:07] LABS: Amphetamine Screen,Urine Not Detected (NotDetected); Barbiturate Screen,Urine Not Detected (NotDetected); Benzodiazepines Screen,Urine Detected (NotDetected); Cocaine Screen,Urine Not Detected (NotDetected); Methadone Screen, Urine Not Detected (NotDetected); Opiate Screen,Urine Detected (NotDetected); Oxycodone Screen, Urine Not Detected (NotDetected); Phencyclidine Screen,Urine Not Detected (NotDetected); Tricyclic Antidepressant,Urine Not Detected (NotDetected); Urn Cannabinoid Scrn Not Detected (NotDetected)
[2018-12-17] MEDS: INSULIN ASPART (NovoLOG) 100 UNIT/ML VIAL SQ SCH ×2 (18:15→22:41)
[2018-12-17] MEDS ORDERED: ONDANSETRON 4 MG/2 ML VIAL IVP STA (20:16)
[2018-12-17] MEDS ORDERED: ONDANSETRON 4 MG/2 ML VIAL IVP PRN (20:16)
[2018-12-17] MEDS: SODIUM CHLORIDE 0.9% 1,000 ML IV SCH (20:26)
--- NOTE | 2018-12-17 20:33 | P.CNNES ---
History of Present Illness Consult date: 12/17/18 Requesting physician: Dereck Pedroza Reason for Consult: Confusion, dehyration possible TIA Chief complaint: Confused History of Present Illness: This is a 68 RH male who was found lying on the floor by his son unknown downtime initially there was report of right sided weakness but none that was d etected by the ER. He was found to be confused and dehydrated. His son was also concerned that he might have taken too much pain medicine. His outpatient med list shows he is on baclofen, duloxetine and gabapentin. There was report in the ER that there were opiates involved, but they are not listed on his outpatient med list. While in the ER, his exam was noted to be non-focal. We were consulted for possible TIA. Patient cannot provide much meaningful history. My historical information was obtained by reviewing available medical records in EMR. Review of Systems Unable to obtain due to AMS Past Medical History Past Medical History: Atrial Fibrillation, Diabetes Mellitus, GERD/Reflux, Hypertension, Osteoarthritis (OA), Pneumonia Additional Past Medical History / Comment(s): 03-10-16 FELL/FX RT FIBULA, VERTIGO chronic headaches History of Any Multi-Drug Resistant Organisms: MRSA Date of last positivie culture/infection: feb 2017 MDRO Source:: mrsa Past Surgical History: Back Surgery, Orthopedic Surgery Additional Past Surgical History / Comment(s): Bilateral mastectomy with right sided lymp node removal, rt. knee cap removed, back surgery for herniated disc., Brain stem surgery for decompression-for dizziness, right ankle ORIF Past Anesthesia/Blood Transfusion Reactions: No Reported Reaction Past Psychological History: No Psychological Hx Reported Smoking Status: Former smoker Past Alcohol Use History: None Reported Past Drug Use History: None Reported - Past Family History Father History Unknown: Yes Family Medical History: Congestive Heart Failure (CHF) Mother History Unknown: Yes Family Medical History: Hypertension Additional Family Medical History / Comment(s): pulmonary hypertension Medications and Allergies Home Medications Medication Instructions Recorded Confirmed Type Atorvastatin [Lipitor] 10 mg PO DAILY 10/08/15 12/17/18 History Baclofen [Lioresal] 20 mg PO BID 04/03/17 12/17/18 History DULoxetine HCL [Cymbalta] 30 mg PO HS 09/15/18 12/17/18 History DULoxetine HCL [Cymbalta] 60 mg PO DAILY 09/15/18 12/17/18 History Gabapentin [Neurontin] 100 mg PO BID 09/15/18 12/17/18 History Lisinopril [Zestril] 20 mg PO BID 09/15/18 12/17/18 History Apixaban [Eliquis] 2.5 mg PO BID 12/17/18 12/17/18 History Metoprolol Tartrate [Lopressor] 50 mg PO BID 12/17/18 12/17/18 History metFORMIN HCL [Glucophage] 500 mg PO BID 12/17/18 12/17/18 History Allergies Allergy/AdvReac Type Severity Reaction Status Date / Time cephalexin monohydrate Allergy Anaphylaxis Verified 12/17/18 14:29 [From Keflex] Cephalosporins Allergy Unknown Verified 12/17/18 14:29 Penicillins Allergy Anaphylaxis Verified 12/17/18 14:29 Physical Examination - Vital Signs Vital Signs: Vital Signs Temp Pulse Resp BP Pulse Ox 12/17/18 18:43 78 18 150/78 97 12/17/18 18:00 68 18 148/106 97 12/17/18 17:00 66 18 118/81 97 12/17/18 16:00 65 20 97 12/17/18 15:00 64 16 119/75 96 12/17/18 14:00 69 16 133/80 94 L 12/17/18 13:45 72 20 133/88 133 H 12/17/18 13:42 133/80 12/17/18 13:40 98.5 F 83 20 Intake and Output 12/17/18 12/17/18 12/17/18 06:59 14:59 22:59 Other: Weight 152.861 kg Gen NAD Pleasant and cooperative HEENT NCAT Sclera without icterus O/P clear Neck Supple No carotid bruit Cor RRR no m/r/g Lungs CTAB Abd Soft NTND +BS Ext Warm to touch No edema Neuro MS Somnolent but arousable to tactile stimuli Waxing and waning mental status with perseveration and echolalia and echopraxia Able to follow basic commands but require repeated cueing CN PERRL VFF no APD EOMI no nystagmus or ELISABETH No facial asymmetry Masseter's symmetric Hearing intact to normal voice bilaterally Speech not dysarthric Equal elevation of palate Tongue midline Sym shrug and SCM bilaterally Motor Normal bulk/tone No pronator or tremors Strength 5/5 sym throughout Sens Intact to LT x4 No neglect Coord No dysmetria on FTN bilaterally DTRs 2+/4 sym throughout Toes downgoing bilaterally No clonus at achilles Gait Deferred NIHSS 1b=2 total 2 Results - Laboratory Findings CBC and BMP: 12/17/18 13:53 12/17/18 13:53 Abnormal Lab Findings: Abnormal Labs 12/17/18 12/17/18 12/17/18 13:43 13:53 13:53 Neutrophils # 8.1 H Lymphocytes # 0.9 L Chloride 108 H BUN 31 H Creatinine 1.73 H Glucose 189 H POC Glucose (mg/dL) 179 H Creatine Kinase 306 H Urine Protein Urine Opiates Screen U Benzodiazepines Scrn 12/17/18 17:39 Neutrophils # Lymphocytes # Chloride BUN Creatinine Glucose POC Glucose (mg/dL) Creatine Kinase Urine Protein Trace H Urine Opiates Screen Detected H U Benzodiazepines Scrn Detected H - Diagnostic Findings Additional findings: CT Head wo cont 12/17/18. Some cerebral atrophy. Small vessel disease. No ICH. Nil acute. I have reviewed neuroimages myself. Assessment and Plan Assessment: His neuro exam is consistent with a toxic-metabolic encephalopathy. My index of suspicion for this to be vascular/TIA is quite low. Plan: -Rehydration -Trend Cr and CK -Hold baclofen and gabapentin until mental status improves -No opiates, benzodiazepines or anticholinergic that would further cloud his sensorium -Send TSH and B12 -May continue DOAC -Statin therapy -d/w patient. He has no questions. Thank you for this consultation. Please call with ?. Time with Patient: Greater than 30 (Time spent in direct patient care, greater than 50% of which was spent in [id number] counseling and coordination of care: 70 minutes)
[2018-12-17 22:13] LABS: Glucose,Whole Blood 136 mg/dL (75-99)
[2018-12-17] MEDS: metFORMIN 500 MG TAB PO SCH (22:18)
[2018-12-17] MEDS: LISINOPRIL 20 MG TAB PO SCH (22:20)
[2018-12-17] MEDS: METOPROLOL TARTRATE 50 MG TAB PO SCH (22:20)
[2018-12-17] MEDS: APIXABAN 2.5 MG TABLET PO SCH (22:20)
[2018-12-17 22:31] VITALS: BMI 38.9
[2018-12-17] MEDS: BACLOFEN 10 MG TAB PO SCH (22:40)
[2018-12-17] MEDS: GABAPENTIN 100 MG CAP PO SCH (22:41)
[2018-12-17] MEDS: DULoxetine HCL 30 MG CAPSULE.DR PO SCH (22:41)
[2018-12-18 06:08] LABS: Glucose,Whole Blood 130 mg/dL (75-99)
[2018-12-18] MEDS: INSULIN ASPART (NovoLOG) 100 UNIT/ML VIAL SQ SCH ×4 (06:11→20:47)
[2018-12-18 06:24] LABS: HCT 37.1 % (39.0-53.0); HGB 12.3 gm/dL (13.0-17.5); MCH 31.6 pg (25.0-35.0); MCHC 33.3 g/dL (31.0-37.0); MCV 94.9 fL (80.0-100.0); Mean Platelet Volume 7.4; Platelet Count 217 k/uL (150-450); RDW 14.5 % (11.5-15.5); WBC 10.5 k/uL (3.8-10.6)
[2018-12-18 06:37] LABS: Calcium 9.3 mg/dL (8.4-10.2); Potassium 4.6 mmol/L (3.5-5.1)
[2018-12-18] MEDS: SODIUM CHLORIDE 0.9% 1,000 ML IV SCH ×3 (06:43→18:36)
[2018-12-18] MEDS: METOPROLOL TARTRATE 50 MG TAB PO SCH ×2 (09:38→20:46)
[2018-12-18] MEDS: APIXABAN 2.5 MG TABLET PO SCH ×2 (09:39→22:05)
[2018-12-18] MEDS: DULoxetine HCL 60 MG CAPSULE.DR PO SCH (09:39)
[2018-12-18] MEDS: ATORVASTATIN 10 MG TAB PO SCH (09:39)
[2018-12-18] MEDS: LISINOPRIL 20 MG TAB PO SCH ×2 (09:39→20:46)
[2018-12-18] MEDS: metFORMIN 500 MG TAB PO SCH ×2 (09:39→20:30)
[2018-12-18] MEDS: GABAPENTIN 100 MG CAP PO SCH ×2 (09:40→22:06)
[2018-12-18] MEDS: BACLOFEN 10 MG TAB PO SCH ×2 (09:40→22:06)
--- NOTE | 2018-12-18 10:47 | P.PN ---
Subjective Progress Note Date: 12/18/18 Principal diagnosis: AMS IVF. Much improved neurologically. Patient states he mostly drinks diet soda. He does have an extensive neurosurgical history and had his brainstem operated on twice, once in [place]. He has follow-up with his neurosurgeon next Sunday. No other neuro c/o. Objective - Vital Signs Vital signs: Vital Signs Temp 98.1 F 12/18/18 08:00 Pulse 72 12/18/18 08:00 Resp 16 12/18/18 08:00 BP 112/57 12/18/18 08:00 Pulse Ox 95 12/18/18 08:00 Intake & Output 12/17/18 12/18/18 12/18/18 18:59 06:59 18:59 Intake Total 360 Output Total 500 Balance -500 360 Weight 152.861 kg 170 kg Intake: Oral 360 Output: Urine 500 Other: # Voids 1 - Exam Gen NAD Pleasant and cooperative MS A+Ox4 Normal speech Able to articulate a detailed medical history CN II-XII grossly intact no nystagmus Motor Normal bulk/tone No drift or tremors Strength 5/5 sym throughout Sens Intact to LT x4 Coord No tested DTRs 2+/4 sym throughout Gait Deferred - Labs CBC & Chem 7: 12/18/18 06:05 12/18/18 06:05 Labs: Abnormal Lab Results - Last 24 Hours (Table) 12/17/18 12/17/18 12/17/18 Range/Units 13:43 13:53 13:53 RBC (4.30-5.90) m/uL Hgb (13.0-17.5) gm/dL Hct (39.0-53.0) % Neutrophils # 8.1 H (1.3-7.7) k/uL Lymphocytes # 0.9 L (1.0-4.8) k/uL Chloride 108 H (98-107) mmol/L BUN 31 H (9-20) mg/dL Creatinine 1.73 H (0.66-1.25) mg/dL Glucose 189 H (74-99) mg/dL POC Glucose (mg/dL) 179 H (75-99) mg/dL Creatine Kinase 306 H (55-170) U/L Triglycerides (<150) mg/dL HDL Cholesterol (40-60) mg/dL Urine Protein (Negative) Urine Opiates Screen (NotDetected) U Benzodiazepines Scrn (NotDetected) 12/17/18 12/17/18 12/18/18 Range/Units 17:39 22:12 06:05 RBC (4.30-5.90) m/uL Hgb (13.0-17.5) gm/dL Hct (39.0-53.0) % Neutrophils # (1.3-7.7) k/uL Lymphocytes # (1.0-4.8) k/uL Chloride (98-107) mmol/L BUN 27 H (9-20) mg/dL Creatinine (0.66-1.25) mg/dL Glucose 134 H (74-99) mg/dL POC Glucose (mg/dL) 136 H (75-99) mg/dL Creatine Kinase (55-170) U/L Triglycerides 256 H (<150) mg/dL HDL Cholesterol 26 L (40-60) mg/dL Urine Protein Trace H (Negative) Urine Opiates Screen Detected H (NotDetected) U Benzodiazepines Scrn Detected H (NotDetected) 12/18/18 12/18/18 Range/Units 06:05 06:06 RBC 3.90 L (4.30-5.90) m/uL Hgb 12.3 L (13.0-17.5) gm/dL Hct 37.1 L (39.0-53.0) % Neutrophils # (1.3-7.7) k/uL Lymphocytes # (1.0-4.8) k/uL Chloride (98-107) mmol/L BUN (9-20) mg/dL Creatinine (0.66-1.25) mg/dL Glucose (74-99) mg/dL POC Glucose (mg/dL) 130 H (75-99) mg/dL Creatine Kinase (55-170) U/L Triglycerides (<150) mg/dL HDL Cholesterol (40-60) mg/dL Urine Protein (Negative) Urine Opiates Screen (NotDetected) U Benzodiazepines Scrn (NotDetected) Assessment and Plan Assessment: Toxic-metabolic encephalopathy due to dehydration and meds, much improved with rehydration. Do not suspect TIA or other primary neurological process to explain his altered mental status that has resolved. Plan: -IVF -Informed patient gabapentin is cleared renally and if he gets dehydrated it can easily cause side effects including confusion -Advised increased PO fluid intake without caffeine -continue DOAC and statin -Follow up with neurosurgery for h/o brainstem surgeries -d/w patient and son in detail. All questions answered -No further inpatient neuro recs at this time. Will revisit patient prn. Please call with new ?. Thank you again for this consultation. Time with Patient: Less than 30 (Time spent in direct patient care, greater than 50% of which was spent in [id number] counseling and coordination of care: 25 minutes)
[2018-12-18 11:49] LABS: Glucose,Whole Blood 125 mg/dL (75-99)
[2018-12-18] MEDS: ACETAMINOPHEN TAB 325 MG TAB PO PRN ×3 (11:53→20:46)
--- NOTE | 2018-12-18 13:00 | P.HPIM ---
History of Present Illness Patient was brought to the emergency room after collapsing at home. Patient has no recollection of yesterday's events. Patient does have history of brainstem surgery atrial fibrillation diabetes type 2 lumbar surgery. Patient is on opioids for the back pain. Patient states that he is only 20 today and frequently takes diet Pepsi. Patient has been evaluated by neurologist with diagnosis of toxic metabolic encephalopathy Review of Systems ROS unobtainable: due to mental status Past Medical History Past Medical History: Atrial Fibrillation, Diabetes Mellitus, GERD/Reflux, Hypertension, Osteoarthritis (OA), Pneumonia Additional Past Medical History / Comment(s): 03-10-16 FELL/FX RT FIBULA, VERTIGO chronic headaches History of Any Multi-Drug Resistant Organisms: MRSA Date of last positivie culture/infection: feb 2017 MDRO Source:: mrsa Past Surgical History: Back Surgery, Orthopedic Surgery Additional Past Surgical History / Comment(s): Bilateral mastectomy with right sided lymp node removal, rt. knee cap removed, back surgery for herniated disc., Brain stem surgery for decompression-for dizziness, right ankle ORIF Past Anesthesia/Blood Transfusion Reactions: No Reported Reaction Past Psychological History: No Psychological Hx Reported Smoking Status: Former smoker Past Alcohol Use History: None Reported Additional Past Alcohol Use History / Comment(s): STARTED SMOKING AT AGE 18, SMOKE A PIPE GOES THRU A PACK OF PIPE TOBACCO/DAY quit smoking in 2005 Past Drug Use History: None Reported - Past Family History Father History Unknown: Yes Family Medical History: Congestive Heart Failure (CHF) Mother History Unknown: Yes Family Medical History: Hypertension Additional Family Medical History / Comment(s): pulmonary hypertension Medications and Allergies Home Medications Medication Instructions Recorded Confirmed Type Atorvastatin [Lipitor] 10 mg PO DAILY 10/08/15 12/17/18 History Baclofen [Lioresal] 20 mg PO BID 04/03/17 12/17/18 History DULoxetine HCL [Cymbalta] 30 mg PO HS 09/15/18 12/17/18 History DULoxetine HCL [Cymbalta] 60 mg PO DAILY 09/15/18 12/17/18 History Gabapentin [Neurontin] 100 mg PO BID 09/15/18 12/17/18 History Lisinopril [Zestril] 20 mg PO BID 09/15/18 12/17/18 History Apixaban [Eliquis] 2.5 mg PO BID 12/17/18 12/17/18 History Metoprolol Tartrate [Lopressor] 50 mg PO BID 12/17/18 12/17/18 History metFORMIN HCL [Glucophage] 500 mg PO BID 12/17/18 12/17/18 History Allergies Allergy/AdvReac Type Severity Reaction Status Date / Time cephalexin monohydrate Allergy Anaphylaxis Verified 12/17/18 14:29 [From Keflex] Cephalosporins Allergy Unknown Verified 12/17/18 14:29 Penicillins Allergy Anaphylaxis Verified 12/17/18 14:29 Physical Exam Vitals: Vital Signs Temp Pulse Pulse Resp BP BP Pulse Ox 12/18/18 08:00 98.1 F 72 16 112/57 95 12/18/18 04:00 98 F 76 17 151/73 96 12/17/18 22:00 97.7 F 74 17 144/70 93 L 12/17/18 21:42 97.8 F 79 19 132/80 94 L 12/17/18 18:43 78 18 150/78 97 12/17/18 18:00 68 18 148/106 97 12/17/18 17:00 66 18 118/81 97 12/17/18 16:00 65 20 97 12/17/18 15:00 64 16 119/75 96 12/17/18 14:00 69 16 133/80 94 L 12/17/18 13:45 72 20 133/88 133 H 12/17/18 13:42 133/80 12/17/18 13:40 98.5 F 83 20 Intake and Output 12/17/18 12/18/18 12/18/18 22:59 06:59 14:59 Intake Total 360 Output Total 500 Balance -500 360 Intake: Oral 360 Output: Urine 500 Other: # Voids 1 Weight 170 kg - Constitutional General appearance: mild distress - EENT Eyes: PERRLA Ears: bilateral: normal - Neck Posterior neck pain with flexion-extension - Respiratory Respiratory: bilateral: CTA - Cardiovascular Rhythm: irregularly irregular - Gastrointestinal General gastrointestinal: soft - Integumentary Integumentary: normal - Neurologic Neurologic: CNII-XII intact - Psychiatric Mentation patient has no recollection of yesterday without problems with recalling when he was discussing unable to do minus sevens subtraction able to do bed months in reverse Results CBC & Chem 7: 12/18/18 06:05 12/18/18 06:05 Labs: Abnormal Lab Results - Last 24 Hours (Table) 12/17/18 12/17/18 12/17/18 Range/Units 13:43 13:53 13:53 RBC (4.30-5.90) m/uL Hgb (13.0-17.5) gm/dL Hct (39.0-53.0) % Neutrophils # 8.1 H (1.3-7.7) k/uL Lymphocytes # 0.9 L (1.0-4.8) k/uL Chloride 108 H (98-107) mmol/L BUN 31 H (9-20) mg/dL Creatinine 1.73 H (0.66-1.25) mg/dL Glucose 189 H (74-99) mg/dL POC Glucose (mg/dL) 179 H (75-99) mg/dL Creatine Kinase 306 H (55-170) U/L Triglycerides (<150) mg/dL HDL Cholesterol (40-60) mg/dL Urine Protein (Negative) Urine Opiates Screen (NotDetected) U Benzodiazepines Scrn (NotDetected) 12/17/18 12/17/18 12/18/18 Range/Units 17:39 22:12 06:05 RBC (4.30-5.90) m/uL Hgb (13.0-17.5) gm/dL Hct (39.0-53.0) % Neutrophils # (1.3-7.7) k/uL Lymphocytes # (1.0-4.8) k/uL Chloride (98-107) mmol/L BUN 27 H (9-20) mg/dL Creatinine (0.66-1.25) mg/dL Glucose 134 H (74-99) mg/dL POC Glucose (mg/dL) 136 H (75-99) mg/dL Creatine Kinase (55-170) U/L Triglycerides 256 H (<150) mg/dL HDL Cholesterol 26 L (40-60) mg/dL Urine Protein Trace H (Negative) Urine Opiates Screen Detected H (NotDetected) U Benzodiazepines Scrn Detected H (NotDetected) 12/18/18 12/18/18 12/18/18 Range/Units 06:05 06:06 11:47 RBC 3.90 L (4.30-5.90) m/uL Hgb 12.3 L (13.0-17.5) gm/dL Hct 37.1 L (39.0-53.0) % Neutrophils # (1.3-7.7) k/uL Lymphocytes # (1.0-4.8) k/uL Chloride (98-107) mmol/L BUN (9-20) mg/dL Creatinine (0.66-1.25) mg/dL Glucose (74-99) mg/dL POC Glucose (mg/dL) 130 H 125 H (75-99) mg/dL Creatine Kinase (55-170) U/L Triglycerides (<150) mg/dL HDL Cholesterol (40-60) mg/dL Urine Protein (Negative) Urine Opiates Screen (NotDetected) U Benzodiazepines Scrn (NotDetected) Chest x-ray: report reviewed CT Scan - head: report reviewed Thrombosis Risk Factor Assmnt - Choose All That Apply Each Risk Factor Represents 2 Points: Age 61-74 years Thrombosis Risk Factor Assessment Total Risk Factor Score: 2 Thrombosis Risk Factor Assessment Level: Low Risk Assessment and Plan Plan: Assessment Toxic metabolic encephalopathy dehydration History of atrial fibrillation Diabetes type 2 noncompliant with diet GERD Osteoarthritis with history of opioid dependence Hypertension History of brainstem surgery Dehydration improving Plan Continued neurology consult
--- NOTE | 2018-12-18 13:53 | XR ---
EXAMINATION TYPE: XR cervical spine comp DATE OF EXAM: 12/18/2018 COMPARISON: NONE HISTORY: Pain TECHNIQUE: Four views are submitted. FINDINGS: The odontoid is intact. There are no compression deformities. The prevertebral soft tissue structur es are within normal limits. Soft tissue ossification posterior. Multilevel hypertrophic anterior sp urring. Degenerative disc disease C5-6 and C6-C7. Foraminal encroachment is level suspected. Alignmen t documented to level C7. IMPRESSION: 1. Multilevel degenerative disc disease with suspected foraminal encroachment. Recommend follow-up MR I.
[2018-12-18 16:33] LABS: Glucose,Whole Blood 118 mg/dL (75-99)
[2018-12-18 20:39] LABS: Glucose,Whole Blood 143 mg/dL (75-99)
[2018-12-18] MEDS: DULoxetine HCL 30 MG CAPSULE.DR PO SCH (22:06)
[2018-12-19] MEDS: ACETAMINOPHEN TAB 325 MG TAB PO PRN ×2 (04:51→09:11)
[2018-12-19] MEDS: SODIUM CHLORIDE 0.9% 1,000 ML IV SCH ×2 (04:52→13:35)
[2018-12-19 06:16] LABS: Glucose,Whole Blood 107 mg/dL (75-99)
[2018-12-19] MEDS: INSULIN ASPART (NovoLOG) 100 UNIT/ML VIAL SQ SCH ×2 (06:27→13:36)
[2018-12-19 07:08] LABS: African American GFR (CKD) >90 (>60 ml/min/1.73 sqM); Anion Gap 9 mmol/L; Blood Urea Nitrogen 19 mg/dL (9-20); Calcium 8.7 mg/dL (8.4-10.2); Carbon Dioxide 24 mmol/L (22-30); Chloride 106 mmol/L (98-107); Creatine Kinase 200 U/L (55-170); Glucose 108 mg/dL (74-99); Sodium 139 mmol/L (137-145)
[2018-12-19 08:14] VITALS: RESP 18
[2018-12-19] MEDS: METOPROLOL TARTRATE 50 MG TAB PO SCH (09:08)
[2018-12-19] MEDS: DULoxetine HCL 60 MG CAPSULE.DR PO SCH (09:09)
[2018-12-19] MEDS: metFORMIN 500 MG TAB PO SCH (09:10)
[2018-12-19] MEDS: ATORVASTATIN 10 MG TAB PO SCH (09:10)
[2018-12-19] MEDS: LISINOPRIL 20 MG TAB PO SCH (09:10)
[2018-12-19] MEDS: GABAPENTIN 100 MG CAP PO SCH (09:10)
[2018-12-19] MEDS: BACLOFEN 10 MG TAB PO SCH (09:10)
[2018-12-19] MEDS: APIXABAN 2.5 MG TABLET PO SCH (09:10)
--- NOTE | 2018-12-19 11:27 | P.DS ---
Providers Date of admission: 12/17/18 16:50 Expected date of discharge: 12/19/18 Attending physician: Damon Rodriguez Consults: 12/17/18 16:51 Consult Physician Routine Consulting Provider: Mera Moran Consult Reason/Comments: Confusion, TIA, dehydration Do you want consulting provider notified?: Yes Primary care physician: Damon Rodriguez Hospital Course: 68-year-old male was brought to the emergency room with altered level of consciousness. There was question to overdose because the count on the pill bottle with short. Patient was found to be dehydrated. Patient was evaluated by neurology for TIA neurologist felt the syncope was due to dehydration. Patient is now awake and alert and orientated Assessment TIA ruled out per neurology Toxic metabolic encephalopathy secondary to dehydration History of atrial fibrillation Diabetes type 2 GERD Osteoarthritis opioid dependent Hypertension history of brainstem surgery Plan Follow-up with family physician Dr. Damon Rodriguez Follow-up with neurology and neurosurgeon Patient Condition at Discharge: Fair Plan - Discharge Summary Discharge Rx Participant: No New Discharge Prescriptions: New DULoxetine HCL [Cymbalta] 60 mg PO DAILY #30 capsule. Acetaminophen Tab [Tylenol] 650 mg PO Q4HR PRN tab PRN Reason: Fever and/ or mild Pain Continue Atorvastatin [Lipitor] 10 mg PO DAILY Gabapentin [Neurontin] 100 mg PO BID DULoxetine HCL [Cymbalta] 30 mg PO HS Lisinopril [Zestril] 20 mg PO BID metFORMIN HCL [Glucophage] 500 mg PO BID Metoprolol Tartrate [Lopressor] 50 mg PO BID Apixaban [Eliquis] 2.5 mg PO BID Discontinued Baclofen [Lioresal] 20 mg PO BID DULoxetine HCL [Cymbalta] 60 mg PO DAILY Discharge Medication List Atorvastatin [Lipitor] 10 mg PO DAILY 10/08/15 [History] DULoxetine HCL [Cymbalta] 30 mg PO HS 09/15/18 [History] Gabapentin [Neurontin] 100 mg PO BID 09/15/18 [History] Lisinopril [Zestril] 20 mg PO BID 09/15/18 [History] Apixaban [Eliquis] 2.5 mg PO BID 12/17/18 [History] Metoprolol Tartrate [Lopressor] 50 mg PO BID 12/17/18 [History] metFORMIN HCL [Glucophage] 500 mg PO BID 12/17/18 [History] Acetaminophen Tab [Tylenol] 650 mg PO Q4HR PRN tab 12/19/18 [Rx] DULoxetine HCL [Cymbalta] 60 mg PO DAILY #30 capsule. 12/19/18 [Rx] Follow up Appointment(s)/Referral(s): Damon Rodriguez MD [Primary Care Provider] - 1-2 days
[2018-12-19 11:56] VITALS: BP 133/86; PULSE 74; TEMP 97.5
[2018-12-19 12:18] LABS: Glucose,Whole Blood 130 mg/dL (75-99)
== END 2018-12-19 14:51 | disposition hospice, home (50) | DRG 640 ==
LOC: EC 13:37 → 3SCARD 16:50
PROVIDERS: ADMIT Family Medicine; ATTEND Family Medicine
DX: E86.0 Dehydration (principal); G92 Toxic encephalopathy; F11.20 Opioid dependence, uncomplicated; E11.9 Type 2 diabetes mellitus without complications; I10 Essential (primary) hypertension; I48.91 Unspecified atrial fibrillation; K21.9 Gastro-esophageal reflux disease without esophagitis; M19.90 Unspecified osteoarthritis, unspecified site; Z79.01 Long term (current) use of anticoagulants; Z79.84 Long term (current) use of oral hypoglycemic drugs; Z79.899 Other long term (current) drug therapy; Z82.49 Family history of ischemic heart disease and other diseases of the circulatory system; Z87.891 Personal history of nicotine dependence; Z90.13 Acquired absence of bilateral breasts and nipples; Z91.11 Patient's noncompliance with dietary regimen; Z87.01 Personal history of pneumonia (recurrent); Z88.1 Allergy status to other antibiotic agents; Z88.0 Allergy status to penicillin; M54.9 Dorsalgia, unspecified
CPT/HCPCS: 36415; 70450; 71046; 72050; 80048; 80053; 80061; 80306; 80320; 81003; 82140; 82550; 82607; 84443; 84484; 85025; 85027; 85610; 85730; 93005; 94760; 96360; 96361; 96374; 99285

== ENCOUNTER → 2019-02-12 | Outpatient (CLI) | payer MEDICARE | END | disposition home or self-care (01) | LOC: NEUROMAIN 08:15 | PROVIDERS: ATTEND Neurological Surgery | DX: R42 Dizziness and giddiness (principal) | CPT/HCPCS: 92537; 92540 ==

== ENCOUNTER 2019-05-08 22:40 | Inpatient (IN) | payer MEDICARE ==
--- NOTE | 2019-05-08 22:56 | ED ---
General Adult HPI - General Chief complaint: Fall Stated complaint: Back Pain,Vertigo Source: EMS Mode of arrival: EMS - History of Present Illness Initial comments: Kyle is a 68yo M with extensive PMH as documented below, patient presents to the emergency department today via ambulance for evaluation of altered mental status and the possible fall. Patient apparently fell off of his couch, does not know how. Does not know the circumstances does not know if he lost consciousness. Able was apparently concerned because he can get him up and the patient seemed confused so 911 was called. On arrival patient is somewhat confused and offers limited history. He denies any complaints. - Related Data Home Medications Medication Instructions Recorded Confirmed Atorvastatin [Lipitor] 10 mg PO DAILY 10/08/15 12/17/18 DULoxetine HCL [Cymbalta] 30 mg PO HS 09/15/18 12/17/18 Gabapentin [Neurontin] 100 mg PO BID 09/15/18 12/17/18 Lisinopril [Zestril] 20 mg PO BID 09/15/18 12/17/18 Apixaban [Eliquis] 2.5 mg PO BID 12/17/18 12/17/18 Metoprolol Tartrate [Lopressor] 50 mg PO BID 12/17/18 12/17/18 metFORMIN HCL [Glucophage] 500 mg PO BID 12/17/18 12/17/18 Previous Rx's Medication Instructions Recorded Acetaminophen Tab [Tylenol] 650 mg PO Q4HR PRN tab 12/19/18 DULoxetine HCL [Cymbalta] 60 mg PO DAILY #30 capsule. 12/19/18 Allergies Allergy/AdvReac Type Severity Reaction Status Date / Time cephalexin monohydrate Allergy Anaphylaxis Verified 12/17/18 14:29 [From Keflex] Cephalosporins Allergy Unknown Verified 12/17/18 14:29 Penicillins Allergy Anaphylaxis Verified 12/17/18 14:29 Review of Systems ROS Statement: Those systems with pertinent positive or pertinent negative responses have been documented in the HPI. ROS Other: All systems not noted in ROS Statement are negative. Past Medical History Past Medical History: Atrial Fibrillation, Diabetes Mellitus, GERD/Reflux, Hypertension, Osteoarthritis (OA), Pneumonia Additional Past Medical History / Comment(s): 03-10-16 FELL/FX RT FIBULA, VERTIGO chronic headaches History of Any Multi-Drug Resistant Organisms: MRSA Date of last positivie culture/infection: feb 2017 MDRO Source:: mrsa Past Surgical History: Back Surgery, Orthopedic Surgery Additional Past Surgical History / Comment(s): Bilateral mastectomy with right sided lymp node removal, rt. knee cap removed, back surgery for herniated disc., Brain stem surgery for decompression-for dizziness, right ankle ORIF Past Anesthesia/Blood Transfusion Reactions: No Reported Reaction Past Psychological History: No Psychological Hx Reported Smoking Status: Former smoker Past Alcohol Use History: None Reported Past Drug Use History: None Reported - Past Family History Father History Unknown: Yes Family Medical History: Congestive Heart Failure (CHF) Mother History Unknown: Yes Family Medical History: Hypertension Additional Family Medical History / Comment(s): pulmonary hypertension General Exam - General Exam Comments Initial Comments: Physical Exam GENERAL: Patient is well-developed and well-nourished. Patient is nontoxic and well- hydrated and is in no distress. HENT: Normocephalic, Atraumatic. EYES: PERRL, EOMI PULMONARY: Unlabored respirations. No audible rales rhonchi or wheezing was noted. CARDIOVASCULAR: There is a regular rate and rhythm without any murmurs gallops or rubs. ABDOMEN: Soft and nontender with normal bowel sounds. SKIN: Skin is clear with no lesions or rashes and otherwise unremarkable. : Deferred NEUROLOGIC: Awake, alert to person, able to identify he's in the hospital, uncertain of day or date, uncertain of events leading up to hospitalization All extremities spontaneously but has spastic-like twitching movements in all extremities MUSCULOSKELETAL: Normal extremities with adequate strength and full range of motion. No lower e xtremity swelling or edema. No calf tenderness. PSYCHIATRIC: Pleasantly confused Course Vital Signs 05/08/19 05/09/19 22:45 00:00 Temperature 98.2 F Pulse Rate 86 67 Respiratory 18 20 Rate Blood Pressure 150/84 O2 Sat by Pulse 92 L 97 Oximetry EKG Findings - EKG Comments: EKG Findings:: EKG was obtained due to complaint of possible fall, EKG was obtained at 2247, rate is 87 rhythm is sinus there is normal intervals, VA 160, QRS 92, QTc is 459 and there are no acute ST elevations or depressions are still evidence of acute ischemia or infarction. Medical Decision Making - Medical Decision Making The patient was seen and evaluated upon arrival, history was obtained from patient and 60-year-old male with extensive past medical history apparently fell or rolled off of his couch no obvious signs of trauma no complaints of acute pain but patient is very confused, given the limited history patient's significant past medical history brought set of labs were ordered. Patient is having twitching movements of his upper and lower extremities, concern for atypical seizure-like activity therefore Ativan was ordered. Computed tomography scan of the head resulted no acute findings, chronic changes secondary to previous surgery labs resulted with no significant acute abnormalities, lactic mildly elevated. Patient been resting comfortably since receiving Ativan, wakes to voice, has repetitive questioning. We will plan to admit the patient for further evaluation, - Lab Data Result diagrams: 05/08/19 23:35 05/08/19 23:35 Lab Results 05/08/19 05/08/19 05/08/19 Range/Units 22:50 23:35 23:35 WBC 10.4 (3.8-10.6) k/uL RBC 4.05 L (4.30-5.90) m/uL Hgb 12.7 L (13.0-17.5) gm/dL Hct 38.4 L (39.0-53.0) % MCV 94.9 (80.0-100.0) fL MCH 31.3 (25.0-35.0) pg MCHC 33.0 (31.0-37.0) g/dL RDW 13.0 (11.5-15.5) % Plt Count 178 (150-450) k/uL Neutrophils % 84 % Lymphocytes % 8 % Monocytes % 5 % Eosinophils % 1 % Basophils % 0 % Neutrophils # 8.7 H (1.3-7.7) k/uL Lymphocytes # 0.9 L (1.0-4.8) k/uL Monocytes # 0.5 (0-1.0) k/uL Eosinophils # 0.1 (0-0.7) k/uL Basophils # 0.0 (0-0.2) k/uL PT (9.0-12.0) sec INR (<1.2) APTT (22.0-30.0) sec Sodium 140 (137-145) mmol/L Potassium 4.3 (3.5-5.1) mmol/L Chloride 107 (98-107) mmol/L Carbon Dioxide 21 L (22-30) mmol/L Anion Gap 12 mmol/L BUN 20 (9-20) mg/dL Creatinine 1.02 (0.66-1.25) mg/dL Est GFR (CKD-EPI)AfAm 87 (>60 ml/min/1.73 sqM) Est GFR (CKD-EPI)NonAf 75 (>60 ml/min/1.73 sqM) Glucose 133 H (74-99) mg/dL POC Glucose (mg/dL) 145 H (75-99) mg/dL POC Glu Suspender Cutter ID Tammi Trejo Plasma Lactic Acid Balaji (0.7-2.0) mmol/L Calcium 9.2 (8.4-10.2) mg/dL Total Bilirubin 0.7 (0.2-1.3) mg/dL AST 23 (17-59) U/L ALT 16 (4-49) U/L Alkaline Phosphatase 46 (38-126) U/L Creatine Kinase 162 (55-170) U/L Troponin I (0.000-0.034) ng/mL Total Protein 7.1 (6.3-8.2) g/dL Albumin 4.5 (3.5-5.0) g/dL 05/08/19 05/08/19 05/08/19 Range/Units 23:35 23:35 23:35 WBC (3.8-10.6) k/uL RBC (4.30-5.90) m/uL Hgb (13.0-17.5) gm/dL Hct (39.0-53.0) % MCV (80.0-100.0) fL MCH (25.0-35.0) pg MCHC (31.0-37.0) g/dL RDW (11.5-15.5) % Plt Count (150-450) k/uL Neutrophils % % Lymphocytes % % Monocytes % % Eosinophils % % Basophils % % Neutrophils # (1.3-7.7) k/uL Lymphocytes # (1.0-4.8) k/uL Monocytes # (0-1.0) k/uL Eosinophils # (0-0.7) k/uL Basophils # (0-0.2) k/uL PT 10.4 (9.0-12.0) sec INR 1.0 (<1.2) APTT 26.2 (22.0-30.0) sec Sodium (137-145) mmol/L Potassium (3.5-5.1) mmol/L Chloride (98-107) mmol/L Carbon Dioxide (22-30) mmol/L Anion Gap mmol/L BUN (9-20) mg/dL Creatinine (0.66-1.25) mg/dL Est GFR (CKD-EPI)AfAm (>60 ml/min/1.73 sqM) Est GFR (CKD-EPI)NonAf (>60 ml/min/1.73 sqM) Glucose (74-99) mg/dL POC Glucose (mg/dL) (75-99) mg/dL POC Glu Suspender Cutter ID Plasma Lactic Acid Balaji 2.3 H* (0.7-2.0) mmol/L Calcium (8.4-10.2) mg/dL Total Bilirubin (0.2-1.3) mg/dL AST (17-59) U/L ALT (4-49) U/L Alkaline Phosphatase (38-126) U/L Creatine Kinase (55-170) U/L Troponin I <0.012 (0.000-0.034) ng/mL Total Protein (6.3-8.2) g/dL Albumin (3.5-5.0) g/dL Disposition Clinical Impression: Confusion, Recurrent falls Disposition: ADMITTED IP TO THIS [facility] Condition: Stable Is patient prescribed a controlled substance at d/c from ED?: No Referrals: Damon Rodriguez MD [Primary Care Provider] - 1-2 days
[2019-05-08] MEDS ORDERED: LORazepam 2 MG/ML INJ IV STA (23:02)
[2019-05-08 23:08] LABS: Glucose,Whole Blood 145 mg/dL (75-99)
[2019-05-08 23:47] LABS: Basophils % (A) 0 %; Eosinophils # (A) 0.1 k/uL (0-0.7); Eosinophils % (A) 1 %; HCT 38.4 % (39.0-53.0); HGB 12.7 gm/dL (13.0-17.5); Lymphocytes # (A) 0.9 k/uL (1.0-4.8); Lymphocytes % (A) 8 %; MCH 31.3 pg (25.0-35.0); MCV 94.9 fL (80.0-100.0); Mean Platelet Volume 7.7; Monocytes # (A) 0.5 k/uL (0-1.0); Monocytes % (A) 5 %; Neutrophils # (A) 8.7 k/uL (1.3-7.7); Neutrophils % (A) 84 %; Platelet Count 178 k/uL (150-450); RBC 4.05 m/uL (4.30-5.90); WBC 10.4 k/uL (3.8-10.6)
--- NOTE | 2019-05-08 23:52 | CT ---
EXAMINATION TYPE: CT brain wo con DATE OF EXAM: 05/08/2019 COMPARISON: 12/17/2018 HISTORY: Neuro Defect. CT DLP: 1196.4 mGycm Automated exposure control for dose reduction was used. Ventricles have normal size. There is no mass effect nor midline shift. There is no sign of intracran ial hemorrhage. There is right occipital craniotomy defect. There is some apparent encephalomalacia r ight cerebellar hemisphere.. IMPRESSION: No acute intracranial abnormality. Postsurgical changes with encephalomalacia right cerebellar hemisp here periphery. No change compared to old exam.
[2019-05-08] MEDS: SODIUM CHLORIDE 0.9% 500 ML 500 ML IV SCH (23:54)
[2019-05-08 23:56] LABS: Albumin 4.5 g/dL (3.5-5.0); Calcium 9.2 mg/dL (8.4-10.2); Potassium 4.3 mmol/L (3.5-5.1); Total Bilirubin 0.7 mg/dL (0.2-1.3); Total Protein 7.1 g/dL (6.3-8.2)
[2019-05-09 00:08] LABS: Partial Thromboplastin Time 26.2 sec (22.0-30.0); Prothrombin Time 10.4 sec (9.0-12.0)
[2019-05-09] MEDS ORDERED: NALOXONE 0.4 MG/ML 1 ML VIAL IV PRN (00:52)
[2019-05-09] MEDS: SODIUM CHLORIDE 0.9% 1,000 ML IV SCH ×2 (01:25→15:30)
[2019-05-09] MEDS: METOPROLOL TARTRATE 50 MG TAB PO SCH ×2 (07:37→21:26)
[2019-05-09] MEDS: metFORMIN 500 MG TAB PO SCH ×2 (07:37→21:26)
[2019-05-09] MEDS: APIXABAN 2.5 MG TABLET PO SCH ×2 (07:37→21:25)
[2019-05-09] MEDS: LISINOPRIL 20 MG TAB PO SCH ×2 (07:38→21:26)
[2019-05-09] MEDS: GABAPENTIN 100 MG CAP PO SCH ×2 (07:38→21:25)
[2019-05-09] MEDS: ACETAMINOPHEN TAB 325 MG TAB PO PRN ×2 (11:38→17:53)
[2019-05-09] MEDS: levETIRAcetam 250 MG TAB PO SCH (11:39)
--- NOTE | 2019-05-09 11:40 | P.CNNES ---
History of Present Illness Consult date: 05/09/19 Requesting physician: Adelina Cruz Reason for Consult: Twitching of her limbs, concern for seizure activity, history of ICH History of Present Illness: Patient is a 68-year-old male, who states that he has history of benign positional vertigo. Patient states that he woke up, was feeling dizzy. He got up to get diet pop and fell. Patient later stated that he just rolled off the bed and fell. Patient was brought to the hospital by ambulance. According to EMS flow sheet. They were called for back pain. However when they arrived, patient was standing up leaning up against a counter. Patient was complaining of severe vertigo and was having an episode of vertigo at that time. He mentioned that he was laying on the couch and rolled off of it. He started having back pain. Patient was barely able to stand and had to yell for his neighbor to help him. He was complaining of back pain and also vertigo. She was diaphoretic and nauseated. Patient was given 4 mg Zofran and 50 mg Toradol for his pain. His blood glucose was 163. EKG showed normal sinus rhythm. It was noticed that patient had some repetitive statements and had some confusion to the day and time. Stroke scale showed no deficiencies. His blood pressure at the scene was 153/88, pulse rate is 94, respirations 16 and saturation 98%. Patient was brought to the hospital. Patient has been having intermittent mental confusion. Patient had an EKG which showed sinus rhythm with fusion complexes. CT head showed no acute intracranial abnormality. Postsurgical changes with encephalomalacia right cerebellar hemisphere and signs of previous craniotomy. Patient previously has been seen by Dr. Moran on 12/17/2018 for possible TIA, it was felt patient has metabolic encephalopathy with low index of suspicion for TIA. The patient's ammonia was <9 on that admission. Patient denies any history of seizures. Patient also states that he had a brainstem surgery performed for vertigo. He states that a blood vessel was touching a nerve and spacer was placed for vertigo. Patient states that his vertigo completely went away after the surgery. However the vertigo has come back, and he feels that he may need surgery on the other side. Patient was noted to be very confused, somnolent and would doze off while talking. Patient states that he does take [place] 10 twice a day, Cymbalta for head pain and baclofen. He denies any alcohol tobacco or drugs. Review of Systems Patient denies any numbness tingling focal weakness, diplopia. Patient denies chest pain shortness of breath wheezing or cough. Denies abdominal pain. Past Medical History Past Medical History: Atrial Fibrillation, Cancer, Diabetes Mellitus, GERD/Reflux, Hyperlipidemia, Hypertension, Memory Impairment, Osteoarthritis (OA), Pneumonia Additional Past Medical History / Comment(s): 03-10-16 FELL/FX RT FIBULA, VERTIGO chronic headaches History of Any Multi-Drug Resistant Organisms: MRSA Date of last positivie culture/infection: 02/2017 MDRO Source:: MRSA Past Surgical History: Back Surgery, Breast Surgery, Orthopedic Surgery Additional Past Surgical History / Comment(s): Bilateral mastectomy with right sided lymp node removal due to cancer, R knee cap removed, Back surgery for herniated disc., Brain stem surgery for decompression-for dizziness, right ankle ORIF, bilateral wrist fractures Past Anesthesia/Blood Transfusion Reactions: No Reported Reaction Past Psychological History: No Psychological Hx Reported Smoking Status: Former smoker Past Alcohol Use History: None Reported Past Drug Use History: None Reported - Past Family History Father History Unknown: Yes Family Medical History: Congestive Heart Failure (CHF) Additional Family Medical History / Comment(s): at 68. Mother History Unknown: Yes Family Medical History: Hypertension Additional Family Medical History / Comment(s): Pulmonary hypertension. at 78. Medications and Allergies Home Medications Medication Instructions Recorded Confirmed Type Atorvastatin [Lipitor] 10 mg PO DAILY 10/08/15 05/09/19 History DULoxetine HCL [Cymbalta] 30 mg PO HS 09/15/18 05/09/19 History Gabapentin [Neurontin] 100 mg PO BID 09/15/18 05/09/19 History Lisinopril [Zestril] 20 mg PO BID 09/15/18 05/09/19 History Apixaban [Eliquis] 2.5 mg PO BID 12/17/18 05/09/19 History Metoprolol Tartrate [Lopressor] 50 mg PO BID 12/17/18 05/09/19 History metFORMIN HCL [Glucophage] 500 mg PO BID 12/17/18 05/09/19 History Baclofen [Lioresal] 20 mg PO BID 05/09/19 05/09/19 History Butalb/Acetaminophen/Caffeine 1 cap PO BID PRN 05/09/19 05/09/19 History [Fioricet 50-300-40 mg Capsule] DULoxetine HCL [Cymbalta] 60 mg PO DAILY 05/09/19 05/09/19 History HYDROcodone/APAP 10-325MG [[place] 1 tab PO TID 05/09/19 05/09/19 History 10-325] levETIRAcetam [Keppra] 250 mg PO DAILY 05/09/19 05/09/19 History Allergies Allergy/AdvReac Type Severity Reaction Status Date / Time cephalexin monohydrate Allergy Anaphylaxis Verified 05/09/19 07:15 [From Keflex] Cephalosporins Allergy Unknown Verified 05/09/19 07:15 Penicillins Allergy Anaphylaxis Verified 05/09/19 07:15 Physical Examination - Vital Signs Vital Signs: Vital Signs Temp Pulse Pulse Resp BP BP Pulse Ox 05/09/19 08:52 96 05/09/19 08:11 97.9 F 82 21 124/76 96 05/09/19 08:00 21 05/09/19 07:00 98.5 F 75 18 108/87 97 05/09/19 06:07 98.6 F 68 19 119/69 97 05/09/19 05:00 71 19 135/83 97 05/09/19 03:56 70 17 123/74 97 05/09/19 02:48 87 21 115/71 94 L 05/09/19 01:23 73 19 115/71 95 05/09/19 00:00 67 20 150/84 97 05/08/19 22:45 98.2 F 86 18 92 L Intake and Output 05/08/19 05/09/19 05/09/19 22:59 06:59 14:59 Intake Total 10 Balance 10 Intake: IV 10 Invasive Line 1 10 Other: Voiding Method Toilet Weight 127.006 kg 127.006 kg On examination patient is an elderly male, in no distress. He appears somewhat encephalopathic, very somnolent, dozes off frequently. Patient knows that he is in [facility] in [place]. He knows name of the current president states that he is a jerk, Trump. When I asked the current date, patient states is 1950. I informed him that that is his date of and what is it today, but he still keeps on repeating May. Speech is clear with no aphasia or dysarthria. On cranial exertion pupils are round and reactive to light, visual bishop are full, face is symmetric and tongue protrudes the midline. Palatal elevation and sensation normal. On muscle strength strength testing, there is no pronator drift and the strength is normal in the arms and legs distally and proximally. Patient is obvious asterixis/myoclonic jerks of his upper extremities. Reflexes are 1+ and plantars downgoing. Sensory touch is equal. No ataxia for [id number] testing. Tone and bulk of muscles normal. There is no carotid bruit, S1 and S2 audible. Results Patient's B12 426 on 12/17/2018, TFTs normal. His total cholesterol is 170, LDL 93, HDL 26. Liver functions normal. Calcium normal. - Laboratory Findings CBC and BMP: 05/08/19 23:35 05/08/19 23:35 Abnormal Lab Findings: Abnormal Labs 05/08/19 05/08/19 05/08/19 22:50 23:35 23:35 RBC 4.05 L Hgb 12.7 L Hct 38.4 L Neutrophils # 8.7 H Lymphocytes # 0.9 L Carbon Dioxide 21 L Glucose 133 H POC Glucose (mg/dL) 145 H Plasma Lactic Acid Balaji 05/08/19 23:35 RBC Hgb Hct Neutrophils # Lymphocytes # Carbon Dioxide Glucose POC Glucose (mg/dL) Plasma Lactic Acid Balaji 2.3 H* Assessment and Plan Assessment: * 68-year-old male admitted with a fall, back pain, however was noted to have altered mentation, with fluctuating mental status. Patient at times appears more coherent, but other times appears confused, somewhat encephalopathic. Examination also revealed evidence of myoclonic jerks noted of the proximal upper limbs as well as of outstretched hands consistent with metabolic encephalopathy. Exact cause is uncertain. * Previous history of craniotomy, ? microvascular decompression for vertigo, per patient * History of BPPV. * Diabetes * Probable paroxysmal Atrial fibrillation on Eliquis Plan: * Patient will undergo EEG to evaluate for any interictal epileptiform activity. Patient's home medications list Keppra 250 mg once a day. Patient states that he is not taking it, as he does not have seizures. He follows up with Dr. Dunham. Patient states that his neurologist had recommended to stop Keppra. * We will check an ABG, ammonia level and urine drug screen. * Patient takes Desoto at home. I am concerned if patient may have accidentally taken a double dose of Desoto, but he completely declines. * Patient is also obese. I would suggest polysomnogram as an outpatient to rule out obstructive sleep apnea, hypoventilation syndrome or parasomnias.
[2019-05-09 12:00] LABS: Glucose,Whole Blood 127 mg/dL (75-99)
--- NOTE | 2019-05-09 14:59 | MR ---
MR brain without contrast HISTORY: Vertigo Multiplanar multisequence imaging through the brain and correlated to prior MR brain 09/25/2016, 018 CT brain 05/08/2019 Postsurgical changes are again noted on the right at the inferior right cerebellar hemisphere with as sociated craniotomy is noted on CT, there is some local encephalomalacia change, probable gliosis wit h increased signal on T1 and T2-weighted sequences. There is an interval change in the appearance com pared to prior MRI 04/04/2017, inferior cerebellum on the right shows an interval change in appearance . Postop fluid collection is suspected superficial to the cerebellar hemisphere is more localized and shows mild differences in signal intensity. White matter signal changes in the periventricular white matter are again noted. There is no hemorrhage or hydrocephalus. Fast brain protocol was utilized. Corpus callosum, pituitary, cervical medullary junction, cerebellopontine angles are within normal li mits. Paranasal sinuses and mastoid air cells are well aerated. Orbits show symmetric appearance. IMPRESSION: Postprocedural changes. Consider contrast-enhanced exam for better evaluation if infectio n is suspected clinically, an interval change in the appearance of the inferior cerebellum on the rig ht as described is indeterminate but may represent normal evolution of postoperative findings.
--- NOTE | 2019-05-09 15:13 | HP ---
HISTORY AND PHYSICAL I am covering for Dr. Rodriguez. DATE OF SERVICE: 05/09/2019 CHIEF COMPLAINT: Change in mental status. HISTORY OF PRESENT ILLNESS: This 68-year-old gentleman with a past medical history of multiple medical problems, including atrial fibrillation, history of diabetes mellitus, GERD, hypertension, hyperlipidemia, DJD, history of memory impairment, history of headaches, history of nicotine dependence, being followed by Dr. Rodriguez in the outpatient setting, was complaining of vertigo, dizziness and change in mental status. Patient apparently had a fall. The patient fell off his couch and is unable to remember what happened. The patient's sensorium was fluctuating on and off. The patient came to the emergency room and was evaluated with a brain CT scan, which was reviewed personally by me. It showed no acute intracranial abnormality. Post-surgical changes and encephalomalacia in the right cerebral hemisphere were noted in the periphery. Neurology evaluation is also progressing at this time. The patient also has gait dysfunction. The neurologist recommended continued followup. Possible metabolic encephalopathy with myoclonic jerks was also considered. The patient has intermittent mental confusion also. He has a history of brainstem surgery for decompression for dizziness in the past. PAST MEDICAL HISTORY: History of atrial fibrillation, history of diabetes mellitus, history of GERD, hypertension, hyperlipidemia, history of memory impairment, DJD, history of brainstem surgery. HOME MEDICATIONS: 1. Glucophage 500 mg p.o. b.i.d. 2. Keppra 250 mg p.o. daily. 3. Lopressor 50 mg p.o. b.i.d. 4. Zestril 20 mg p.o. b.i.d. 5. [place] 10 mg t.i.d. 6. Neurontin 100 mg p.o. b.i.d. 7. Cymbalta 60 mg p.o. daily and 30 mg at bedtime. q.h.s. 8. Fioricet 1 p.o. b.i.d. p.r.n. 9. Lioresal 20 mg p.o. b.i.d. 10.Lipitor 10 mg p.o. daily. 11.Eliquis 2.5 mg p.o. b.i.d. ALLERGIES: CEPHALEXIN, CEPHALOSPORINS, PENICILLIN. FAMILY HISTORY: History of CHF. SOCIAL HISTORY: Previous history of smoking. No current smoking or alcohol intake. REVIEW OF SYSTEMS: ENT: Diminished hearing. Diminished vision. Otherwise as mentioned earlier. CARDIOVASCULAR SYSTEM: No angina, palpitations. RESPIRATORY SYSTEM: As mentioned earlier. GI: No nausea, vomiting. : No dysuria or retention. NERVOUS SYSTEM: As mentioned earlier. ALLERGY/IMMUNOLOGY: No asthma, hayfever. MUSCULOSKELETAL: As mentioned earlier. HEMATOLOGY/ONCOLOGY: No history of anemia. ENDOCRINE: As mentioned earlier. CONSTITUTIONAL: As mentioned earlier. DERMATOLOGY: Negative. RHEUMATOLOGY: Negative. PSYCHIATRY: As mentioned earlier. PHYSICAL EXAMINATION: Patient alert and oriented x3. Pulse 80, blood pressure 140/71, respiration 16, temperature 97.7, pulse ox 96% on room air. HEENT: Conjunctivae normal. No nystagmus. Minimal bruising on the right eye present. NECK: No jugular venous distention. No carotid bruit. No lymph node enlargement. Obese. CARDIOVASCULAR SYSTEM: S1, S2 muffled. No S3. No S4. RESPIRATORY SYSTEM: Breath sounds diminished at the bases. A few scattered rhonchi and crackles. ABDOMEN: Soft, obese, non-tender. No mass palpable. LEGS: Bilateral leg edema. NERVOUS SYSTEM: Higher functions as mentioned earlier. Moves all 4 limbs. Mild diffuse weakness. Gait not tested. Gait dysfunction present. Minimal sensory cerebellar finger-nose incoordination. SKIN: No ulcer, rash, bleeding. JOINTS: No active deforming arthropathy. LYMPHATICS: No lymph node palpable in neck, axillae or groin. LABS: WBC 10.8, hemoglobin 12.7. Plasma lactic acid 2.3. ASSESSMENT: 1. Dizziness, vertigo; possible acute transient ischemic attack versus brainstem stroke. 2. Gait dysfunction. 3. History of previous brainstem surgery for dizziness. 4. Encephalomalacia of the right cerebral hemisphere. 5. Elevated lactic acid with no evidence of sepsis. 6. Anemia, normocytic; anemia of chronic disease. 7. Obesity with body mass index of 34.9. 8. History of atrial fibrillation. 9. Diabetes mellitus, type 2. 10.Gastroesophageal reflux disease. 11.Hypertension. 12.Hyperlipidemia. 13.History of memory impairment. 14.History of degenerative joint disease. 15.History of pneumonia. 16.History of fractured right fibula. 17.History of methicillin-resistant Staphylococcus aeruginosa. 18.History of back surgery, degenerative joint disease. 19.History of bilateral mastectomy with right-sided lymph node resection. 20.History of brainstem surgery for decompression of the dizziness. 21.History of right ankle open reduction internal fixation. 22.Remote history of nicotine dependence. 23.Gait dysfunction. 24.FULL CODE. RECOMMENDATIONS AND DISCUSSION: In this 68-year-old gentleman who presented with multiple complex medical issues, we will monitor the patient closely, continue the current medications, continue with symptomatic treatment. Otherwise, Neurology has seen the patient. I would recommend MRI of the brain and neurology evaluation. PT/OT evaluation. Resume the rest of the medications. I would also recommend cardiology evaluation for the atrial fibrillation. The EKG was reviewed which showed some sinus rhythm and possibly fusion complexes. Further recommendations to follow. A copy of this dictation is being forwarded to Dr. Rodriguez, who is the primary physician. MMLELOL / IJN: [id number] / MTDD
--- NOTE | 2019-05-09 16:23 | EEG ---
ELECTROENCEPHALOGRAM REPORT DATE OF SERVICE: 05/09/2019. PREAMBLE: This is a 68-year-old male who has presented with altered mental status, muscle twitches, rule out any seizure activity. EEG FINDINGS: This is a 21-channel awake digital EEG recording accomplished utilizing the 10/20 international system with bipolar and referential montages. The background consists of mixed frequencies of relatively well formed 8 Hz posterior-dominant alpha, very frequently intermixed with generalized 1-2 Hz delta, with some theta activity. The background does not seem to be clearly reactive to eye opening and closing. Different stages of sleep were not seen. Photic driving response was not seen. Some muscle twitches were seen; however, no epileptiform activity was seen. EKG channel lead revealed significant arrhythmia. IMPRESSION: This is an abnormal EEG due to generalized slowing of the background, intermittent, at least moderate degree. This is suggestive of generalized cerebral dysfunction, as can be seen with toxic metabolic encephalopathy or due to diffuse structural brain abnormality. No definitive epileptiform activity was seen. EKG channel revealed significant arrhythmia. Clinical correlation recommended. MMDERIAN / SAMMN: [id number] / [facility] SYSTEMEpifanio
[2019-05-09 16:59] LABS: Glucose,Whole Blood 145 mg/dL (75-99)
[2019-05-09] MEDS: INSULIN ASPART (NovoLOG) 100 UNIT/ML VIAL SQ SCH ×2 (17:18→21:31)
[2019-05-09 17:28] LABS: Appearance,Urine Clear (Clear); Bilirubin,Urine Negative (Negative); Blood,Urine Moderate (Negative); Color,Urine Yellow; Glucose,Urine (UA) Negative (Negative); Ketones,Urine Negative (Negative); Leukocyte Esterase,Urine Negative (Negative); Mucus,Urine Rare /hpf; Nitrite,Urine Negative (Negative); PH, Urine 5.5 (5.0-8.0); Protein,Urine Trace (Negative); RBC,Urine 24 /hpf (0-5); Specific Gravity,Urine 1.022 (1.001-1.035); Squamous Epithelial Cell,Urine <1 /hpf (0-4); Urobilinogen,Urine <2.0 mg/dL (<2.0); WBC,Urine 3 /hpf (0-5)
[2019-05-09 17:37] LABS: Amphetamine Screen,Urine Not Detected (NotDetected); Barbiturate Screen,Urine Not Detected (NotDetected); Benzodiazepines Screen,Urine Detected (NotDetected); Cocaine Screen,Urine Not Detected (NotDetected); Methadone Screen, Urine Not Detected (NotDetected); Opiate Screen,Urine Detected (NotDetected); Oxycodone Screen, Urine Not Detected (NotDetected); Phencyclidine Screen,Urine Not Detected (NotDetected); Tricyclic Antidepressant,Urine Not Detected (NotDetected); Urn Cannabinoid Scrn Not Detected (NotDetected)
[2019-05-09] MEDS: BACLOFEN 10 MG TAB PO SCH (17:53)
[2019-05-09] MEDS: HYDROcodone/APAP 10-325MG 1 EACH TAB PO PRN (19:25)
[2019-05-09] MEDS: DULoxetine HCL 30 MG CAPSULE.DR PO SCH (21:25)
[2019-05-09 21:27] LABS: Glucose,Whole Blood 176 mg/dL (75-99)
--- NOTE | 2019-05-09 23:05 | P.CONS ---
History of Present Illness - Reason for Consult Consult date: 05/09/19 Sepsis Requesting physician: Faviola Moses - Chief Complaint Mental status changes and fall x 1 day - History of Present Illness Patient is a 68-year-old male who was brought into the ER by EMS who will call in for the patient having mental status changes and possible fall, patient said that he was sleeping on the couch and fell out of the couch when he was trying to get up and started having pain in the low back area the patient denies losing consciousness or hitting his head and the patient denies having any headache at this point denies having any photophobia, the patient now that he is at the [facility], the patient denies having any chest pain shortness of breath or cough no nausea no vomiting no abdominal pain or any diarrhea, patient to have a brainstem surgery done for decompression secondary to his symptom of dizziness that was done more than a year ago patient incision to the right side of the scalp is currently healed with no symptoms of any pain swelling or redness at that site on arrival to the ER the patient has been afebrile now tachycardia his white count has been normal patient lactic acid was initially mildly elevated 2.3 and repeat after fluid has been 1.8 patient has been evaluated by neurology and MRI has been done which has been recorded as postprocedure changes with internal change in the appearance of the inferior cerebellum on the right which may represent normal evaluation of postoperative findings infectious disease consult for question of possible sepsis Review of Systems Positive point has been mentioned in the HPI rest of the systems are negative Past Medical History Past Medical History: Atrial Fibrillation, Cancer, Diabetes Mellitus, GERD/Reflux, Hyperlipidemia, Hypertension, Memory Impairment, Osteoarthritis (OA), Pneumonia Additional Past Medical History / Comment(s): 03-10-16 FELL/FX RT FIBULA, VERTIGO chronic headaches History of Any Multi-Drug Resistant Organisms: MRSA Year Discovered:: 02/2017 MDRO Source:: MRSA Past Surgical History: Back Surgery, Breast Surgery, Orthopedic Surgery Additional Past Surgical History / Comment(s): Bilateral mastectomy with right sided lymp node removal due to cancer, R knee cap removed, Back surgery for herniated disc., Brain stem surgery for decompression-for dizziness, right ankle ORIF, bilateral wrist fractures Past Anesthesia/Blood Transfusion Reactions: No Reported Reaction Past Psychological History: No Psychological Hx Reported Smoking Status: Former smoker Past Alcohol Use History: None Reported Past Drug Use History: None Reported - Past Family History Father History Unknown: Yes Family Medical History: Congestive Heart Failure (CHF) Additional Family Medical History / Comment(s): at 68. Mother History Unknown: Yes Family Medical History: Hypertension Additional Family Medical History / Comment(s): Pulmonary hypertension. at 78. Medications and Allergies Home Medications Medication Instructions Recorded Confirmed Type Atorvastatin [Lipitor] 10 mg PO DAILY 10/08/15 05/09/19 History DULoxetine HCL [Cymbalta] 30 mg PO HS 09/15/18 05/09/19 History Gabapentin [Neurontin] 100 mg PO BID 09/15/18 05/09/19 History Lisinopril [Zestril] 20 mg PO BID 09/15/18 05/09/19 History Apixaban [Eliquis] 2.5 mg PO BID 12/17/18 05/09/19 History Metoprolol Tartrate [Lopressor] 50 mg PO BID 12/17/18 05/09/19 History metFORMIN HCL [Glucophage] 500 mg PO BID 12/17/18 05/09/19 History Baclofen [Lioresal] 20 mg PO BID 05/09/19 05/09/19 History Butalb/Acetaminophen/Caffeine 1 cap PO BID PRN 05/09/19 05/09/19 History [Fioricet 50-300-40 mg Capsule] DULoxetine HCL [Cymbalta] 60 mg PO DAILY 05/09/19 05/09/19 History HYDROcodone/APAP 10-325MG [Bacova 1 tab PO TID 05/09/19 05/09/19 History 10-325] levETIRAcetam [Keppra] 250 mg PO DAILY 05/09/19 05/09/19 History Allergies Allergy/AdvReac Type Severity Reaction Status Date / Time cephalexin monohydrate Allergy Anaphylaxis Verified 05/09/19 07:15 [From Keflex] Cephalosporins Allergy Unknown Verified 05/09/19 07:15 Penicillins Allergy Anaphylaxis Verified 05/09/19 07:15 Physical Exam Vitals: Vital Signs Temp Pulse Pulse Resp BP BP BP 05/09/19 14:58 16 05/09/19 12:55 97.7 F 80 16 140/71 05/09/19 08:52 05/09/19 08:11 97.9 F 82 21 124/76 05/09/19 08:00 21 05/09/19 07:00 98.5 F 75 18 108/87 05/09/19 06:07 98.6 F 68 19 119/69 05/09/19 05:00 71 19 135/83 05/09/19 03:56 70 17 123/74 05/09/19 02:48 87 21 115/71 05/09/19 01:23 73 19 115/71 05/09/19 00:00 67 20 150/84 05/08/19 22:45 98.2 F 86 18 Pulse Ox 05/09/19 14:58 05/09/19 12:55 96 05/09/19 08:52 96 05/09/19 08:11 96 05/09/19 08:00 05/09/19 07:00 97 05/09/19 06:07 97 05/09/19 05:00 97 05/09/19 03:56 97 05/09/19 02:48 94 L 05/09/19 01:23 95 05/09/19 00:00 97 05/08/19 22:45 92 L Intake and Output 05/09/19 05/09/19 05/09/19 06:59 14:59 22:59 Intake Total 10 Output Total 900 Balance 10 -900 Intake: IV 10 Invasive Line 1 10 Output: Urine 900 Other: Voiding Method Incontinent # Voids 3 Weight 127.006 kg GENERAL DESCRIPTION: An elderly male lying in bed, no distress. No tachypnea or accessory muscle of respiration use. HEENT: Shows Pallor , no scleral icterus. Oral mucous membrane is dry. No pharyngeal erythema or thrush NECK: Trachea central, no thyromegaly. LUNGS: Unlabored breathing. Clear to auscultation anteriorly. No wheeze or crackle. HEART: S1, S2, regular rate and rhythm. No loud murmur ABDOMEN: Soft, no tenderness , guarding or rigidity, no organomegaly EXTREMITIES: No edema of feet. SKIN: No rash, no masses palpable. NEUROLOGICAL: The patient is awake, alert, oriented x3, mood and affect normal. Results CBC & Chem 7: 05/08/19 23:35 05/08/19 23:35 Labs: Abnormal Lab Results - Last 24 Hours (Table) 05/08/19 05/08/1920 Range/Units 22:50 23:35 23:35 RBC 4.05 L (4.30-5.90) m/uL Hgb 12.7 L (13.0-17.5) gm/dL Hct 38.4 L (39.0-53.0) % Neutrophils # 8.7 H (1.3-7.7) k/uL Lymphocytes # 0.9 L (1.0-4.8) k/uL Carbon Dioxide 21 L (22-30) mmol/L Glucose 133 H (74-99) mg/dL POC Glucose (mg/dL) 145 H (75-99) mg/dL Plasma Lactic Acid Balaji (0.7-2.0) mmol/L Urine Protein (Negative) Urine Blood (Negative) Urine RBC (0-5) /hpf Urine Mucus (None) /hpf Urine Opiates Screen (NotDetected) U Benzodiazepines Scrn (NotDetected) 05/08/19 05/09/19 05/09/19 Range/Units 23:35 11:57 16:58 RBC (4.30-5.90) m/uL Hgb (13.0-17.5) gm/dL Hct (39.0-53.0) % Neutrophils # (1.3-7.7) k/uL Lymphocytes # (1.0-4.8) k/uL Carbon Dioxide (22-30) mmol/L Glucose (74-99) mg/dL POC Glucose (mg/dL) 127 H 145 H (75-99) mg/dL Plasma Lactic Acid Balaji 2.3 H* (0.7-2.0) mmol/L Urine Protein (Negative) Urine Blood (Negative) Urine RBC (0-5) /hpf Urine Mucus (None) /hpf Urine Opiates Screen (NotDetected) U Benzodiazepines Scrn (NotDetected) 05/09/19 05/09/19 Range/Units 17:00 17:00 RBC (4.30-5.90) m/uL Hgb (13.0-17.5) gm/dL Hct (39.0-53.0) % Neutrophils # (1.3-7.7) k/uL Lymphocytes # (1.0-4.8) k/uL Carbon Dioxide (22-30) mmol/L Glucose (74-99) mg/dL POC Glucose (mg/dL) (75-99) mg/dL Plasma Lactic Acid Balaji (0.7-2.0) mmol/L Urine Protein Trace H (Negative) Urine Blood Moderate H (Negative) Urine RBC 24 H (0-5) /hpf Urine Mucus Rare H (None) /hpf Urine Opiates Screen Detected H (NotDetected) U Benzodiazepines Scrn Detected H (NotDetected) Assessment and Plan Assessment: 1-patient presented to the hospital with confusion and a fall in this patient who did have a history of brainstem injury for dizziness this patient currently with no fever no white count and no obvious clinical focus of infection, patient right-sided scalp incision is currently healed with no signs of inflammation and the patient has no features to suggest sepsis at this point or any infection 2-patient with multiple antibiotic ALLERGIES that would limit the number of antibiotics if the use 3- mildly elevated lactic acid on admission possibly related to dehydration and not secondary to sepsis and is already back to normal (1) Lactic acidosis Current Visit: Yes Status: Acute Code(s): E87.2 - ACIDOSIS SNOMED Code(s): 46641966 Plan: 1- we will check inflammatory markers such as CRP and sed rate which if elevated further workup will be done however if those are normal and especially in this patient with no fever or elevated white count and no obvious focus of infection we will would hold on any further workup or systemic antibiotic therapy 2-gentle IV fluid We will follow on clinical condition and cultures to further adjust medication if needed Thank you for this consultation will follow this patient with you Time with Patient: Greater than 30
[2019-05-10] MEDS: HYDROcodone/APAP 10-325MG 1 EACH TAB PO PRN ×3 (02:42→20:27)
[2019-05-10] MEDS: SODIUM CHLORIDE 0.9% 1,000 ML IV SCH ×2 (06:17→17:42)
[2019-05-10 07:06] LABS: Glucose,Whole Blood 156 mg/dL (75-99)
[2019-05-10] MEDS: DULoxetine HCL 60 MG CAPSULE.DR PO SCH (07:55)
[2019-05-10] MEDS: levETIRAcetam 250 MG TAB PO SCH (07:55)
[2019-05-10] MEDS: METOPROLOL TARTRATE 50 MG TAB PO SCH ×2 (07:56→20:24)
[2019-05-10] MEDS: GABAPENTIN 100 MG CAP PO SCH ×2 (07:56→20:24)
[2019-05-10] MEDS: INSULIN ASPART (NovoLOG) 100 UNIT/ML VIAL SQ SCH ×4 (07:56→20:30)
[2019-05-10] MEDS: APIXABAN 2.5 MG TABLET PO SCH ×2 (07:56→20:24)
[2019-05-10] MEDS: metFORMIN 500 MG TAB PO SCH ×2 (07:56→20:24)
[2019-05-10] MEDS: LISINOPRIL 20 MG TAB PO SCH ×2 (07:56→20:24)
[2019-05-10] MEDS: ATORVASTATIN 10 MG TAB PO SCH (07:56)
[2019-05-10] MEDS: BACLOFEN 10 MG TAB PO SCH ×2 (07:56→20:24)
[2019-05-10 11:05] LABS: Basophils % (A) 1 %; Eosinophils # (A) 0.3 k/uL (0-0.7); Eosinophils % (A) 4 %; HCT 38.3 % (39.0-53.0); HGB 12.6 gm/dL (13.0-17.5); Lymphocytes # (A) 1.9 k/uL (1.0-4.8); Lymphocytes % (A) 24 %; MCH 31.3 pg (25.0-35.0); MCHC 32.8 g/dL (31.0-37.0); MCV 95.6 fL (80.0-100.0); Mean Platelet Volume 7.6; Monocytes # (A) 0.4 k/uL (0-1.0); Monocytes % (A) 5 %; Neutrophils % (A) 64 %; Platelet Count 189 k/uL (150-450); RBC 4.01 m/uL (4.30-5.90); RDW 13.3 % (11.5-15.5); WBC 7.8 k/uL (3.8-10.6)
[2019-05-10 11:27] LABS: African American GFR (CKD) >90 (>60 ml/min/1.73 sqM); Anion Gap 9 mmol/L; Blood Urea Nitrogen 17 mg/dL (9-20); Calcium 8.8 mg/dL (8.4-10.2); Carbon Dioxide 22 mmol/L (22-30); Chloride 106 mmol/L (98-107); Glucose 116 mg/dL (74-99); Non-African American GFR(CKD) 85 (>60 ml/min/1.73 sqM); Potassium 4.2 mmol/L (3.5-5.1); Sodium 137 mmol/L (137-145)
[2019-05-10 11:34] LABS: Glucose,Whole Blood 147 mg/dL (75-99)
[2019-05-10] MEDS: BUTALB/APAP/CAFF 50-325-40MG TAB PO PRN (12:29)
[2019-05-10] MEDS: TRIAMCINOLONE ACET 0.1% OINTMENT 15 GM TUBE TOPICAL SCH ×2 (15:49→20:25)
[2019-05-10 17:11] LABS: Glucose,Whole Blood 156 mg/dL (75-99)
[2019-05-10] MEDS: DULoxetine HCL 30 MG CAPSULE.DR PO SCH (20:24)
[2019-05-10 20:33] LABS: Glucose,Whole Blood 168 mg/dL (75-99)
--- NOTE | 2019-05-10 23:40 | PN ---
PROGRESS NOTE DATE OF SERVICE: 05/10/2019 I am covering for Dr. Rodriguez. HISTORY OF PRESENT ILLNESS: This 68-year-old gentleman admitted with change in mental status also had significant neurological history previously. The patient also had MRI of the brain. MRI of the brain showed multiple abnormalities. The patient previously had brainstem surgery. The patient has significant dizziness and vertigo. Multiple consultants are following the patient closely. Of note, the patient also had elevated lactic acid, but no evidence of infection is being noted. Dr. Chan is following the patient closely and as well as neurology. PAST MEDICAL HISTORY: Reviewed. REVIEW OF SYSTEMS: CARDIOVASCULAR: No angina or palpitations. RESPIRATION mentioned earlier. GASTROINTESTINAL: As mentioned earlier. : No dysuria or retention. CENTRAL NERVOUS SYSTEM: No focal deficits. CURRENT MEDICATIONS: Reviewed and include: 1. Tylenol p.r.n. 2. Fioricet 1 p.o. t.i.d. p.r.n. 3. [place] 10 mg p.o. daily. 4. Eliquis 2.5 mg b.i.d. 5. Lipitor 10 mg. 6. Lioresal. 7. Cymbalta. 8. Neurontin 100 mg p.o. b.i.d. 9. Keppra 250 mg p.o. daily. 10.Zestril 20 mg p.o. b.i.d. 11.Glucophage. 12.Lopressor. 13.Narcan. 14.Kenalog. PHYSICAL EXAM: Patient is alert and oriented times three. Pulse 67, blood pressure 120/56, respiration 20, temperature 98.7, pulse ox 94% on room air. HEENT: Conjunctivae normal. NECK: No JVD. CARDIOVASCULAR: S1, S2 muffled. RESPIRATION: Breath sounds diminished in the bases. Scattered rhonchi and crackles. ABDOMEN: Soft, nontender. LEGS are no edema. No swelling. CENTRAL NERVOUS SYSTEM: Diffusely weak and gait dysfunction also present. LAB STUDIES: WBC 11.1, hemoglobin 12.6, glucose 156. Other labs are noted. hematuria present. ASSESSMENT: 1. Dizziness, vertigo, possible acute transient ischemic attack. 2. Brainstem stroke ruled out by MRI. 3. Gait dysfunction. 4. History of previous brain stem surgery for dizziness. 5. Encephalomalacia on the right side of cerebellar hemisphere. 6. Elevated lactic acid with no evidence of infection. 7. Anemia, normocytic anemia of chronic disease. 8. Obesity with body mass index of 34.9. 9. History of atrial fibrillation, chronic paroxysmal. 10.Diabetes mellitus type 2. 11.Gastroesophageal reflux disease. 12.Hypertension. 13.Hyperlipidemia. 14.History of memory impairment. 15.History of degenerative joint disease. 16.History of pneumonia. 17.History of fracture right fibula. 18.History of MRSA. 19.History of back surgery, degenerative joint disease. 20.History of bilateral mastectomy with right-sided lymph node resection. 21.History of brain stem surgery and decompression for dizziness. 22.History of right ankle ORIF. 23.Remote history of nicotine dependence. 24.Gait dysfunction. 25.FULL CODE. RECOMMENDATIONS AND DISCUSSION: I recommend to continue current medications, management and symptomatic treatment. This patient has multiple complex medical issues as listed. MRA showed multiple abnormalities. There are no acute changes. The other concern was about infection. Dr. Chan is following the patient closely. ESR/ CRP is being done. We will continue to monitor. PT/OT evaluation and continue the rest of the medications. Repeat labs have been ordered. We also involved the social media editor because regarding the home situation because of several concerns addressed above in this extremely obese patient with gait dysfunction and high risk of falls. We will continue to monitor. Guarded prognosis. Further recommendations to follow. MMODL / IJN: [id number] / ANITRA
[2019-05-11] MEDS: BUTALB/APAP/CAFF 50-325-40MG TAB PO PRN ×3 (00:07→16:28)
[2019-05-11] MEDS: SODIUM CHLORIDE 0.9% 1,000 ML IV SCH (04:32)
[2019-05-11 06:57] LABS: Glucose,Whole Blood 130 mg/dL (75-99)
[2019-05-11] MEDS: INSULIN ASPART (NovoLOG) 100 UNIT/ML VIAL SQ SCH ×4 (07:27→21:57)
[2019-05-11 07:30] LABS: Basophils % (A) 0 %; Eosinophils # (A) 0.4 k/uL (0-0.7); Eosinophils % (A) 4 %; HCT 38.8 % (39.0-53.0); HGB 12.7 gm/dL (13.0-17.5); Lymphocytes # (A) 1.7 k/uL (1.0-4.8); Lymphocytes % (A) 20 %; MCH 31.4 pg (25.0-35.0); MCHC 32.7 g/dL (31.0-37.0); Mean Platelet Volume 7.7; Monocytes # (A) 0.4 k/uL (0-1.0); Monocytes % (A) 5 %; Neutrophils # (A) 5.7 k/uL (1.3-7.7); Neutrophils % (A) 68 %; Platelet Count 212 k/uL (150-450); RBC 4.04 m/uL (4.30-5.90); WBC 8.4 k/uL (3.8-10.6)
[2019-05-11 07:40] LABS: African American GFR (CKD) >90 (>60 ml/min/1.73 sqM); Anion Gap 8 mmol/L; Blood Urea Nitrogen 17 mg/dL (9-20); Calcium 8.7 mg/dL (8.4-10.2); Carbon Dioxide 26 mmol/L (22-30); Chloride 104 mmol/L (98-107); Glucose 110 mg/dL (74-99); Non-African American GFR(CKD) 82 (>60 ml/min/1.73 sqM); Potassium 4.6 mmol/L (3.5-5.1); Sodium 138 mmol/L (137-145)
[2019-05-11] MEDS: levETIRAcetam 250 MG TAB PO SCH (09:42)
[2019-05-11] MEDS: APIXABAN 2.5 MG TABLET PO SCH ×2 (09:43→20:55)
[2019-05-11] MEDS: metFORMIN 500 MG TAB PO SCH ×2 (09:43→20:55)
[2019-05-11] MEDS: BACLOFEN 10 MG TAB PO SCH ×2 (09:43→20:55)
[2019-05-11] MEDS: GABAPENTIN 100 MG CAP PO SCH ×2 (09:43→20:55)
[2019-05-11] MEDS: DULoxetine HCL 60 MG CAPSULE.DR PO SCH (09:43)
[2019-05-11] MEDS: LISINOPRIL 20 MG TAB PO SCH ×2 (09:43→20:55)
[2019-05-11] MEDS: ATORVASTATIN 10 MG TAB PO SCH (09:43)
[2019-05-11] MEDS: METOPROLOL TARTRATE 50 MG TAB PO SCH ×2 (09:43→20:55)
[2019-05-11] MEDS: HYDROcodone/APAP 10-325MG 1 EACH TAB PO PRN ×2 (09:45→16:27)
[2019-05-11 11:33] LABS: Glucose,Whole Blood 118 mg/dL (75-99)
[2019-05-11] MEDS: TRIAMCINOLONE ACET 0.1% OINTMENT 15 GM TUBE TOPICAL SCH ×3 (12:52→21:01)
[2019-05-11] MEDS: TAMSULOSIN 0.4 MG CAP.ER.24H PO SCH (16:28)
[2019-05-11 17:02] LABS: Glucose,Whole Blood 132 mg/dL (75-99)
--- NOTE | 2019-05-11 20:40 | PN ---
PROGRESS NOTE DATE OF SERVICE: 05/11/2018. I am covering for Dr. Rodriguez This 68-year-old gentleman who was admitted with change in mental status also had significant neurological history also. The patient is still unsteady according to him. No chest pain. No palpitations. No fever. Dr. Chan has seen the patient from Infectious Disease point of view. However, no obvious source of infection has been identified at this time. The cultures have been negative. No chest pain or palpitations. EXAM: Alert and oriented times three. Pulse 65, blood pressure 140/75, respirations 18, temperature 97.4, pulse ox 94% on room air. HEENT: Conjunctivae normal. NECK: No JVD. CARDIOVASCULAR: S1, S2 muffled. RESPIRATORY SYSTEM: Breath sounds diminished at the bases. No rhonchi. No crackles. ABDOMEN is soft, nontender, obese. LEGS: No edema. No swelling. CENTRAL NERVOUS SYSTEM: Mild diffuse weakness. LABS: WBC 8.2, hemoglobin 12.7. Glucose noted. ASSESSMENT: 1. Dizziness, vertigo, possible acute transient ischemic attack. possible brainstem dysfunction. 2. History of brainstem stroke. 3. Brain stem stroke ruled out by MRA. 4. Gait dysfunction. 5. History of previous brainstem surgery for dizziness. 6. Encephalomalacia in the right side of the cerebral hemisphere. 7. Elevated lactic acid with no evidence of infection. 8. Anemia, normocytic anemia of chronic disease. 9. Obesity with body mass index of 34.9. 10.History of atrial fibrillation, chronic, paroxysmal. 11.Diabetes mellitus type 2. 12.Gastroesophageal reflux disease. 13.Hypertension. 14.Hyperlipidemia. 15.History of memory impairment. 16.History of degenerative joint disease. 17.History of pneumonia. 18.History of fracture right fibula. 19.History of MRSA. 20.History of back surgery, degenerative joint disease. 21.History of bilateral mastectomy with right-sided lymph node resection. 22.History of brain stem surgery for decompression and dizziness. 23.History of right ankle ORIF. 24.Remote history of nicotine dependence. 25.Gait dysfunction. 26.FULL CODE. RECOMMENDATIONS AND DISCUSSION: I recommend to continue current medications, management and symptomatic treatment. Otherwise, at this time, increase ambulation. PT, OT evaluation. Otherwise, I would also recommend continue neurology evaluation tomorrow when they are back. Further recommendations to follow. MMODL / IJN: [id number] /
[2019-05-11] MEDS: DULoxetine HCL 30 MG CAPSULE.DR PO SCH (20:55)
[2019-05-11] MEDS: ACETAMINOPHEN TAB 325 MG TAB PO PRN (20:59)
[2019-05-11 21:42] LABS: Glucose,Whole Blood 134 mg/dL (75-99)
--- NOTE | 2019-05-11 22:46 | PN ---
PROGRESS NOTE DATE OF SERVICE: 05/11/2019. REASON FOR FOLLOW UP: Possible sepsis infection. INTERVAL HISTORY: The patient is currently afebrile. Still complaining of feeling dizzy. No headache though. No chest pain, shortness of breath or cough. No nausea, vomiting. No abdominal pain. No diarrhea. PHYSICAL EXAMINATION: Blood pressure 146/75 with a pulse of 75. Temperature 97.5. He is 95% on room air. General description is an elderly male lying in bed in no distress. Respiratory system: Unlabored breathing. Clear to auscultation anteriorly. Heart S1, S2. Regular rate and rhythm. ABDOMEN: Soft, no tenderness. LABS: Hemoglobin is 12.7, white count 8.4, BUN of 17, creatinine 0.95. Blood and urine cultures have been negative. CRP was 5. DIAGNOSTIC IMPRESSION AND PLAN: Patient admitted to the hospital with mental status changes in this patient whose main symptom remains to be dizziness with the previous brainstem surgery for the same symptoms. MRI did show some fluid collection, possible postoperative. However, may be contributing to some pressure may be responsible for some of his symptoms. Clinically not behaving as an infection though. If symptoms develop, may benefit from transfer to tertiary care where surgery was done. culture negative and no fever. We will hold on systemic antibiotic questions. Questions and concerns answered. MMODL / IJN: [id number] /
[2019-05-12] MEDS: HYDROcodone/APAP 10-325MG 1 EACH TAB PO PRN ×3 (00:29→21:12)
[2019-05-12] MEDS: ACETAMINOPHEN TAB 325 MG TAB PO PRN ×3 (04:13→21:11)
[2019-05-12] MEDS: BUTALB/APAP/CAFF 50-325-40MG TAB PO PRN ×2 (04:13→11:44)
[2019-05-12 07:10] LABS: Glucose,Whole Blood 138 mg/dL (75-99)
[2019-05-12] MEDS: ATORVASTATIN 10 MG TAB PO SCH (08:30)
[2019-05-12] MEDS: LISINOPRIL 20 MG TAB PO SCH ×2 (08:30→21:07)
[2019-05-12] MEDS: BACLOFEN 10 MG TAB PO SCH ×2 (08:30→21:07)
[2019-05-12] MEDS: DULoxetine HCL 60 MG CAPSULE.DR PO SCH (08:30)
[2019-05-12] MEDS: metFORMIN 500 MG TAB PO SCH ×2 (08:30→21:07)
[2019-05-12] MEDS: GABAPENTIN 100 MG CAP PO SCH ×2 (08:30→21:07)
[2019-05-12] MEDS: METOPROLOL TARTRATE 50 MG TAB PO SCH ×2 (08:30→21:06)
[2019-05-12] MEDS: APIXABAN 2.5 MG TABLET PO SCH ×2 (08:30→21:07)
[2019-05-12] MEDS: TRIAMCINOLONE ACET 0.1% OINTMENT 15 GM TUBE TOPICAL SCH ×3 (08:31→21:17)
[2019-05-12] MEDS: INSULIN ASPART (NovoLOG) 100 UNIT/ML VIAL SQ SCH ×4 (08:31→21:07)
[2019-05-12] MEDS: levETIRAcetam 250 MG TAB PO SCH (08:32)
[2019-05-12 08:36] LABS: Basophils % (A) 0 %; Eosinophils # (A) 0.5 k/uL (0-0.7); Eosinophils % (A) 5 %; HCT 39.5 % (39.0-53.0); HGB 12.9 gm/dL (13.0-17.5); Lymphocytes # (A) 1.8 k/uL (1.0-4.8); Lymphocytes % (A) 19 %; MCH 31.2 pg (25.0-35.0); MCHC 32.7 g/dL (31.0-37.0); MCV 95.4 fL (80.0-100.0); Mean Platelet Volume 7.6; Monocytes # (A) 0.5 k/uL (0-1.0); Monocytes % (A) 5 %; Neutrophils # (A) 6.3 k/uL (1.3-7.7); Neutrophils % (A) 68 %; Platelet Count 201 k/uL (150-450); RBC 4.14 m/uL (4.30-5.90); WBC 9.3 k/uL (3.8-10.6)
[2019-05-12 08:52] LABS: African American GFR (CKD) >90 (>60 ml/min/1.73 sqM); Anion Gap 17 mmol/L; Blood Urea Nitrogen 16 mg/dL (9-20); Carbon Dioxide 20 mmol/L (22-30); Chloride 97 mmol/L (98-107); Glucose 137 mg/dL (74-99); Non-African American GFR(CKD) 88 (>60 ml/min/1.73 sqM); Potassium 4.4 mmol/L (3.5-5.1); Sodium 134 mmol/L (137-145)
--- NOTE | 2019-05-12 09:29 | PN ---
PROGRESS NOTE DATE OF SERVICE: 05/10/2019 REASON FOR FOLLOW UP: Question of infarction and sepsis. INTERVAL HISTORY: The patient is currently afebrile. He states there remains to be some dizziness. The patient did have pain to the previous surgical site from his brainstem surgery; however, currently this wound has healed with no swelling or redness. The patient denies having any chest pain. No shortness of breath or cough. No nausea or vomiting. No abdominal pain. No diarrhea. PHYSICAL EXAMINATION: Blood pressure 133/86 with a pulse 67, temperature 97.4, he is 95% on room air. General description is an elderly male lying in bed in no distress. RESPIRATORY SYSTEM: Unlabored breathing. Clear to auscultation anteriorly. HEART: S1 and S2. Regular rate and rhythm. ABDOMEN: Soft. No tenderness. The right lateral skull area incision is healed. There is no swelling. There is no redness. LABORATORY DATA: His CRP is normal, less than 5. White count is normal. Blood and urine cultures have been negative. DIAGNOSTIC IMPRESSION AND PLAN: Patient admitted to the hospital with mental status changes and dizziness with concern for possible sepsis. This patient is currently with no fever, normal white count, and normal CRP, clinically without any infectious etiology or on any antibiotic therapy. Continue supportive care. MMODL / IJN: [id number] /
[2019-05-12 11:31] LABS: Glucose,Whole Blood 111 mg/dL (75-99)
[2019-05-12] MEDS ORDERED: ONDANSETRON 4 MG/2 ML VIAL IVP PRN (11:52)
[2019-05-12 16:51] LABS: Glucose,Whole Blood 109 mg/dL (75-99)
[2019-05-12] MEDS: TAMSULOSIN 0.4 MG CAP.ER.24H PO SCH (17:18)
[2019-05-12] MEDS ORDERED: ZOLPIDEM 5 MG TAB PO PRN (18:40)
[2019-05-12 20:04] LABS: Glucose,Whole Blood 165 mg/dL (75-99)
[2019-05-12] MEDS: DULoxetine HCL 30 MG CAPSULE.DR PO SCH (21:07)
--- NOTE | 2019-05-12 21:08 | PN ---
PROGRESS NOTE DATE OF SERVICE: 05/12/2019 I am covering for Dr. Rodriguez. This 68-year-old gentleman who was admitted with change in mental status also had significant neurological and neurosurgical history. The patient had complaints of vertigo. The sepsis. workup was negative so far. Dr. Chan is following the patient closely. Dr. Bonilla is following the patient closely from Neurology point of view. We obtained some old records from hospital. Patient recently admitted there and treated conservatively. Patient was recommended PT, OT which the patient refused per chart. In 2017 the patient also had neurosurgical intervention, the details of which are not very clear even after reviewing the chart. Apparently the patient had multiple nerves were explored in the in the posterior fossa apparently and current MRA shows some significant lesions in the right cerebellar area reported as encephalomalacia, acute injury cannot be ruled out. We do not have an old MRI for comparison. PAST MEDICAL HISTORY: Reviewed. REVIEW OF SYSTEMS: ENT As mentioned earlier. CARDIOVASCULAR No angina or palpitations. RESPIRATORY As mentioned earlier. GI As mentioned earlier. No dysuria. NERVOUS SYSTEM No numbness or weakness. CURRENT MEDICATIONS: 1. Tylenol 650 q.6 p.r.n. 2. Fioricet q.i.d. p.r.n. 3. [place] 10 mg q.i.d. p.r.n. 4. Eliquis 2.5 mg b.i.d. 5. Lipitor 10 mg daily. 6. Lioresal 10 mg p.o. b.i.d. 7. Cymbalta 30 mg b.i.d. 8. Neurontin. 9. Keppra. 10.Zestril. 11.Glucophage. 12.Lopressor. 13.Flomax. Doses are reviewed. PHYSICAL EXAM: Patient is alert, oriented x2. Pulse 67, blood pressure 120/77, respiration 14, temperature 97.7, pulse ox 90% on room air. HEENT: Conjunctivae normal. Oral mucosa moist. NECK: No jugular venous distention. No lymph node enlargement. CARDIOVASCULAR: S1, S2. RESPIRATORY: Diminished breath sounds at the bases. Bilateral scattered rhonchi and crackles. Respiratory wheezing also heard. ABDOMEN: Soft, nontender. No mass palpable. LEGS: No edema, no swelling. NERVOUS SYSTEM: Diffusely weak. LABS: WBC 9.2, hemoglobin 12.9, glucose 137. ASSESSMENT: 1. Dizziness, vertigo, possible acute transient ischemic attack, possible brainstem dysfunction. 2. History of previous neuropsych intervention of the brainstem with undetermined details. 3. Brainstem stroke ruled out by MRI. 4. Encephalomalacia in the right cerebellar hemisphere in the MRI. 5. Gait dysfunction. 6. History of previous brain surgery for dizziness. 7. Elevated lactic acid with no evidence of sepsis. 8. Anemia, normocytic anemia of chronic disease. 9. Obesity with body mass of 34.9. 10.History atrial fibrillation, chronic, paroxysmal. 11.Diabetes mellitus type 2. 12.Gastroesophageal reflux disease. 13.Hypertension. 14.Hyperlipidemia. 15.History of memory impairment. 16.History of degenerative joint disease. 17.History of pneumonia. 18.History of fractured right fibula. 19.History of MRSA. 20.History of back surgery, degenerative joint disease. 21.History of bilateral mastectomy with right-sided lymph node dissection. 22.History of right ankle ORIF. 23.Remote history of nicotine dependence. 24.Gait dysfunction. 25.FULL CODE. RECOMMENDATIONS AND DISCUSSION: This 68-year-old gentleman who presented with multiple complex medical issues, we will monitor the patient closely, continue the current medication, continue symptomatic treatment. Otherwise, at this time I would recommend to obtain more records from ( ), especially the MRI. Discussed with Dr. Bonilla, neurology. He is going to evaluate the patient and recommend the further course of action. The overall prognosis is extremely guarded because of multiple complex medical issues as detailed above and Dr. Rodriguez will follow tomorrow. MMLELOL / SAMMN: [id number] / MTDD
[2019-05-13] MEDS: BUTALB/APAP/CAFF 50-325-40MG TAB PO PRN ×3 (00:14→18:12)
[2019-05-13 07:08] LABS: Glucose,Whole Blood 109 mg/dL (75-99)
[2019-05-13] MEDS: metFORMIN 500 MG TAB PO SCH ×2 (08:05→22:02)
[2019-05-13] MEDS: ATORVASTATIN 10 MG TAB PO SCH (08:05)
[2019-05-13] MEDS: LISINOPRIL 20 MG TAB PO SCH ×2 (08:05→22:03)
[2019-05-13] MEDS: levETIRAcetam 250 MG TAB PO SCH (08:05)
[2019-05-13] MEDS: BACLOFEN 10 MG TAB PO SCH ×2 (08:05→22:02)
[2019-05-13] MEDS: INSULIN ASPART (NovoLOG) 100 UNIT/ML VIAL SQ SCH ×4 (08:05→22:04)
[2019-05-13] MEDS: DULoxetine HCL 60 MG CAPSULE.DR PO SCH (08:05)
[2019-05-13] MEDS: APIXABAN 2.5 MG TABLET PO SCH ×2 (08:05→22:03)
[2019-05-13] MEDS: METOPROLOL TARTRATE 50 MG TAB PO SCH ×2 (08:05→22:03)
[2019-05-13] MEDS: HYDROcodone/APAP 10-325MG 1 EACH TAB PO PRN ×2 (08:11→18:12)
[2019-05-13] MEDS: GABAPENTIN 100 MG CAP PO SCH (08:12)
[2019-05-13] MEDS: TRIAMCINOLONE ACET 0.1% OINTMENT 15 GM TUBE TOPICAL SCH ×3 (08:14→22:05)
--- NOTE | 2019-05-13 08:56 | P.PN ---
Subjective Progress Note Date: 05/12/19 Patient was seen for a follow-up. Patient continues to complain about dizziness, headache, which she rates 7-8/10. He localizes headache to the back of the head and above the right eye. He is not sure if he is taking Neurontin. Patient apparently had right lower craniotomy for dizziness performed by Dr. Ja Ferraro in 2017. Patient's MRI of the brain without contrast from 05/09/2019 showed postoperative changes. Consider contrast enhanced exam for better evaluation if infection is suspected clinically, and interval change in the appearance of the inferior cerebellum on the right as described is indeterminate, but may represent normal evolution of postoperative findings. Patient also had an EEG on 05/09/2019, which was abnormal EEG due to generalized slowing of the background, intermittent, at least moderate in degree. This is suggestive of generalized cerebral dysfunction, as can be seen with toxic metabolic encephalopathy or due to diffuse structural brain abnormality. No epileptiform activity was seen. EKG showed sinus rhythm with fusion complexes. Patient's CBC is normal, with WBC count 9.3. PT/PTT normal. Sodium 134, potassium 4.4, renal functions normal. ESR 18. Hemoglobin A1c 6.2, liver panel normal, C-reactive protein <5.0. Cholesterol 170, LDL 93, HDL 26, B12 426, TFTs normal. UA showed positive opiate, benzodiazepine. Objective - Vital Signs Vital signs: Vital Signs Temp 97.7 F 05/12/19 14:24 Pulse 67 05/12/19 14:24 Resp 14 05/12/19 14:24 BP 117/73 05/12/19 14:24 Pulse Ox 96 05/12/19 14:24 Intake & Output 05/12/19 05/12/19 05/13/19 06:59 18:59 06:59 Intake Total 1200 540 Output Total 6300 1500 Balance -5100 -960 Intake: Oral 1200 540 Output: Urine 6300 1500 Straight 2600 Uretheral (White) 1100 Other: Voiding Method Indwelling Catheter Urinal - Exam On examination patient is alert and awake in no distress. Patient is fully oriented, knows it is 04/27/2019, that is in [facility] in [facility] and name of the current president. Speech and language functions are normal. Cranial nerves are normal. Muscle strength normal. Patient has no as terixis or myoclonic jerks noted. - Labs CBC & Chem 7: 05/12/19 08:13 05/12/19 08:13 Labs: Abnormal Lab Results - Last 24 Hours (Table) 05/11/19 05/12/19 05/12/19 Range/Units 21:39 07:08 08:13 RBC 4.14 L (4.30-5.90) m/uL Hgb 12.9 L (13.0-17.5) gm/dL Sodium (137-145) mmol/L Chloride (98-107) mmol/L Carbon Dioxide (22-30) mmol/L Glucose (74-99) mg/dL POC Glucose (mg/dL) 134 H 138 H (75-99) mg/dL 05/12/19 05/12/19 05/12/19 Range/Units 08:13 11:29 16:49 RBC (4.30-5.90) m/uL Hgb (13.0-17.5) gm/dL Sodium 134 L (137-145) mmol/L Chloride 97 L (98-107) mmol/L Carbon Dioxide 20 L (22-30) mmol/L Glucose 137 H (74-99) mg/dL POC Glucose (mg/dL) 111 H 109 H (75-99) mg/dL Microbiology - Last 24 Hours (Table) 05/08/19 23:35 Blood Culture - Preliminary Blood No Growth after 72 hours Assessment and Plan Assessment: * 68-year-old male admitted with a fall, back pain, however was noted to have altered mentation, with fluctuating mental status. Patient had probable toxic metabolic encephalopathy, which now seems to have resolved. * Right occipital pain, possible occipital neuralgia. * Previous history of craniotomy, ? microvascular decompression for vertigo, per patient * History of BPPV. * Diabetes * Probable paroxysmal Atrial fibrillation on Eliquis Plan: * Patient has chronic vertigo. * Suggest ENT consultation if not performed in the past to evaluate for cause of dizziness. Patient may be a candidate for vestibular rehabilitation. * Increase Neurontin to 300 mg twice a day for right occipital pain. I would suggest occipital nerve block for possible occipital neuralgia. * Patient is also obese. I would suggest polysomnogram as an outpatient to rule out obstructive sleep apnea, hypoventilation syndrome or parasomnias. * PT OT.
[2019-05-13 08:57] LABS: Basophils % (A) 0 %; Eosinophils # (A) 0.6 k/uL (0-0.7); Eosinophils % (A) 8 %; HCT 41.7 % (39.0-53.0); HGB 13.3 gm/dL (13.0-17.5); Lymphocytes # (A) 1.6 k/uL (1.0-4.8); Lymphocytes % (A) 19 %; MCH 30.8 pg (25.0-35.0); MCV 96.4 fL (80.0-100.0); Mean Platelet Volume 7.6; Monocytes # (A) 0.4 k/uL (0-1.0); Monocytes % (A) 5 %; Neutrophils # (A) 5.5 k/uL (1.3-7.7); Neutrophils % (A) 67 %; Platelet Count 206 k/uL (150-450); RBC 4.32 m/uL (4.30-5.90); RDW 13.1 % (11.5-15.5); WBC 8.3 k/uL (3.8-10.6)
[2019-05-13 09:21] LABS: Calcium 9.7 mg/dL (8.4-10.2); Potassium 4.6 mmol/L (3.5-5.1)
[2019-05-13] MEDS: GABAPENTIN 300 MG CAP PO SCH ×2 (10:12→22:02)
[2019-05-13 12:09] LABS: Glucose,Whole Blood 114 mg/dL (75-99)
--- NOTE | 2019-05-13 17:11 | P.PN ---
Subjective Patient resting in bed noted to be diaphoretic continues with dizziness right leg weakness with complaints of low back pain. Patient has had a neurology consultation. We had discussion about vestibular rehab patient is instructed by neurologist not to participate in that activity Objective - Vital Signs Vital signs: Vital Signs Temp 97.6 F 05/13/19 14:55 Pulse 69 05/13/19 14:55 Resp 16 05/13/19 14:55 BP 155/71 05/13/19 14:55 Pulse Ox 96 05/13/19 14:55 Intake & Output 05/12/19 05/13/19 05/13/19 18:59 06:59 18:59 Intake Total 540 1100 Output Total 1500 550 Balance -960 1100 -550 Intake: Oral 540 1100 Output: Urine 1500 550 Other: Voiding Method Urinal Urinal # Voids 1 - Constitutional General appearance: Present: mild distress - EENT Eyes: Present: PERRLA Ears: bilateral: normal - Neck Neck: Present: normal ROM - Respiratory Respiratory: bilateral: CTA - Cardiovascular Rhythm: regular - Gastrointestinal General gastrointestinal: Present: normal bowel sounds, soft - Integumentary Integumentary: Present: normal - Neurologic Neurologic: Present: CNII-XII intact - Musculoskeletal Musculoskeletal Comment(s): Complains of low back pain radiating to right leg - Psychiatric Psychiatric: Present: A&O x's 3, appropriate affect, intact judgment & insight - Labs CBC & Chem 7: 05/13/19 08:22 05/13/19 08:22 Labs: Abnormal Lab Results - Last 24 Hours (Table) 05/12/19 05/13/19 05/13/19 Range/Units 20:02 07:06 08:22 Glucose 157 H (74-99) mg/dL POC Glucose (mg/dL) 165 H 109 H (75-99) mg/dL 05/13/19 Range/Units 12:07 Glucose (74-99) mg/dL POC Glucose (mg/dL) 114 H (75-99) mg/dL Microbiology - Last 24 Hours (Table) 05/08/19 23:35 Blood Culture - Preliminary Blood No Growth after 96 hours Assessment and Plan Plan: Assessment vertigo History of brainstem dysfunction with craniotomy Altered mental status toxic metabolic encephalopathy resolved Gait dysfunction No evidence of sepsis anemia normocytic anemia of chronic disease Obesity BMI 34.9 Atrial fibrillation paroxysmal Diabetes type 2 GERD Hypertension hyperlipidemia memory impairment Degenerative joint disease gait dysfunction Plan Continue with the neurology consultation X-ray of low back
[2019-05-13 17:30] LABS: Glucose,Whole Blood 109 mg/dL (75-99)
--- NOTE | 2019-05-13 18:10 | XR ---
EXAMINATION TYPE: XR lumbar spine 2 or 3V DATE OF EXAM: 05/13/2019 COMPARISON: 12/07/2018 HISTORY: Fall. Back pain TECHNIQUE: 3 views FINDINGS: Lumbar vertebra have normal alignment. Posterior elements are intact. There is spurring of the endplates. There is no compression fracture. Sacroiliac joints appear intact. IMPRESSION: Spondylotic changes. No fracture seen. No change.
[2019-05-13] MEDS: TAMSULOSIN 0.4 MG CAP.ER.24H PO SCH (18:12)
--- NOTE | 2019-05-13 21:08 | P.PN ---
Subjective Progress Note Date: 05/13/19 Patient was seen for a follow-up. Patient continues to have headache pointing to the right occipital region, that extends to the right frontal region. Now the right eye also hurts. The headaches have been going on for the past 6 months. He rates headache 8/10, sometimes feel hit by a hammer in the frontal region. It is a constant headache, gets worse, subsides and then comes back. He thinks Fioricet with codeine helps more than the regular Fioricet. His right eye also hurts. Patient apparently had right lower craniotomy for dizziness performed by Dr. Ja Ferraro in 2017. Patient's MRI of the brain without contrast from 05/09/2019 showed postoperative changes. Consider contrast enhanced exam for better evaluation if infection is suspected clinically, and interval change in the appearance of the inferior cerebellum on the right as described is indeterminate, but may represent normal evolution of postoperative findings. Patient also had an EEG on 05/09/2019, which was abnormal EEG due to generalized slowing of the background, intermittent, at least moderate in degree. This is s uggestive of generalized cerebral dysfunction, as can be seen with toxic metabolic encephalopathy or due to diffuse structural brain abnormality. No epileptiform activity was seen. EKG showed sinus rhythm with fusion complexes. Patient's CBC is normal, with WBC count 9.3. PT/PTT normal. Sodium 134, potassium 4.4, renal functions normal. ESR 18. Hemoglobin A1c 6.2, liver panel normal, C-reactive protein <5.0. Cholesterol 170, LDL 93, HDL 26, B12 426, TFTs normal. UA showed positive opiate, benzodiazepine. Objective - Vital Signs Vital signs: Vital Signs Temp 97.6 F 05/13/19 14:55 Pulse 69 05/13/19 14:55 Resp 16 05/13/19 14:55 BP 155/71 05/13/19 14:55 Pulse Ox 96 05/13/19 14:55 Intake & Output 05/13/19 05/13/19 05/14/19 06:59 18:59 06:59 Intake Total 1100 Output Total 550 Balance 1100 -550 Intake: Oral 1100 Output: Urine 550 Other: Voiding Method Urinal # Voids 1 - Exam On examination patient is alert and awake in no distress. Patient is fully oriented. Speech and language functions are normal. Cranial nerves are normal. He does have slight paresthesias over the right occipital nerve distribution. Muscle strength normal. Patient has no asterixis or myoclonic jerks noted. - Labs CBC & Chem 7: 05/13/19 08:22 05/13/19 08:22 Labs: Abnormal Lab Results - Last 24 Hours (Table) 05/13/19 05/13/19 05/13/19 Range/Units 07:06 08:22 12:07 Glucose 157 H (74-99) mg/dL POC Glucose (mg/dL) 109 H 114 H (75-99) mg/dL 05/13/19 Range/Units 17:25 Glucose (74-99) mg/dL POC Glucose (mg/dL) 109 H (75-99) mg/dL Microbiology - Last 24 Hours (Table) 05/08/19 23:35 Blood Culture - Preliminary Blood No Growth after 96 hours Assessment and Plan Assessment: * Toxic metabolic encephalopathy, which now seems to have resolved. * Right occipital pain, possible occipital neuralgia. * Previous history of craniotomy in the brainstem region, ? microvascular decompression for vertigo, per patient * History of BPPV. * Diabetes * Probable paroxysmal Atrial fibrillation on Eliquis Plan: * Patient has chronic vertigo. Suggest follow-up with neurosurgery, Dr. Ja Ferraro for recurrence of vertigo for the last 1 year. * Suggest ENT consultation if not performed in the past to evaluate for cause of dizziness. Patient may be a candidate for vestibular rehabilitation. * Continue Neurontin to 300 mg twice a day for right occipital pain. I would suggest occipital nerve block for possible occipital neuralgia. * Patient is also obese. I would suggest polysomnogram as an outpatient to rule out obstructive sleep apnea, hypoventilation syndrome or parasomnias. * PT OT.
[2019-05-13 21:11] LABS: Glucose,Whole Blood 138 mg/dL (75-99)
[2019-05-13] MEDS: DULoxetine HCL 30 MG CAPSULE.DR PO SCH (22:02)
[2019-05-13] MEDS: ACETAMINOPHEN TAB 325 MG TAB PO PRN (22:13)
[2019-05-14] MEDS: BUTALB/APAP/CAFF 50-325-40MG TAB PO PRN ×3 (01:31→21:04)
[2019-05-14] MEDS: HYDROcodone/APAP 10-325MG 1 EACH TAB PO PRN ×3 (01:31→21:05)
[2019-05-14 07:00] LABS: Glucose,Whole Blood 121 mg/dL (75-99)
[2019-05-14] MEDS: INSULIN ASPART (NovoLOG) 100 UNIT/ML VIAL SQ SCH ×4 (08:05→21:13)
[2019-05-14] MEDS: METOPROLOL TARTRATE 50 MG TAB PO SCH ×2 (08:07→21:03)
[2019-05-14] MEDS: BACLOFEN 10 MG TAB PO SCH ×2 (08:07→21:03)
[2019-05-14] MEDS: DULoxetine HCL 60 MG CAPSULE.DR PO SCH (08:07)
[2019-05-14] MEDS: LISINOPRIL 20 MG TAB PO SCH ×2 (08:07→21:03)
[2019-05-14] MEDS: metFORMIN 500 MG TAB PO SCH ×2 (08:07→21:03)
[2019-05-14] MEDS: GABAPENTIN 300 MG CAP PO SCH ×2 (08:07→21:04)
[2019-05-14] MEDS: ATORVASTATIN 10 MG TAB PO SCH (08:08)
[2019-05-14] MEDS: APIXABAN 2.5 MG TABLET PO SCH ×2 (08:08→21:03)
[2019-05-14] MEDS: levETIRAcetam 250 MG TAB PO SCH (08:09)
[2019-05-14 12:10] LABS: Glucose,Whole Blood 91 mg/dL (75-99)
[2019-05-14] MEDS: methylPREDNISolone SOD SUCCI 125 MG/2 ML VIAL IV SCH ×3 (12:23→23:56)
[2019-05-14] MEDS: TRIAMCINOLONE ACET 0.1% OINTMENT 15 GM TUBE TOPICAL SCH ×3 (12:23→21:06)
--- NOTE | 2019-05-14 12:55 | P.PN ---
Subjective Patient continues to complain of low back playing radiating to his right leg lumbar x-ray normal. Patient had an evaluation with neurology regarding started him on Antivert and steroids. Patient appears confused to time Objective - Vital Signs Vital signs: Vital Signs Temp 97.6 F 05/14/19 05:45 Pulse 69 05/14/19 05:45 Resp 15 05/14/19 05:45 BP 115/69 05/14/19 05:45 Pulse Ox 94 L 05/14/19 05:45 Intake & Output 05/13/19 05/14/19 05/14/19 18:59 06:59 18:59 Intake Total 480 Output Total 550 1150 350 Balance -550 -670 -350 Intake: Oral 480 Output: Urine 550 1150 350 - Constitutional General appearance: Present: mild distress, morbidly obese - EENT Eyes: Present: PERRLA Ears: bilateral: normal - Neck Neck: Present: normal ROM - Respiratory Respiratory: bilateral: CTA - Cardiovascular Rhythm: regular - Gastrointestinal General gastrointestinal: Present: soft - Integumentary Integumentary: Present: normal - Neurologic Neurologic: Present: CNII-XII intact - Musculoskeletal Musculoskeletal: Present: generalized weakness - Psychiatric Psychiatric: Present: A&O x's 3 - Labs CBC & Chem 7: 05/13/19 08:22 05/13/19 08:22 Labs: Abnormal Lab Results - Last 24 Hours (Table) 05/13/19 05/13/19 05/14/19 Range/Units 17:25 21:02 06:56 POC Glucose (mg/dL) 109 H 138 H 121 H (75-99) mg/dL Microbiology - Last 24 Hours (Table) 05/08/19 23:35 Blood Culture - Preliminary Blood No Growth after 120 hours Assessment and Plan Plan: Assessment Vertigo brain stem dysfunction History of intervention with brain stem Altered mental status secondary to toxic metabolic encephalopathy resolving Gait dysfunction Anemia of chronic disease Morbid obesity BMI 35.9 History of atrial fibrillation chronic paroxysmal Diabetes type 2. Hypertension Hyperlipidemia Memory impairment Degenerative disc disease opioid dependent Low back pain right sciatica Plan Continue consultation with neurology On discharge patient to see Dr. Ferraro neurosurgeon
[2019-05-14 16:42] LABS: Glucose,Whole Blood 156 mg/dL (75-99)
[2019-05-14] MEDS: TAMSULOSIN 0.4 MG CAP.ER.24H PO SCH (17:29)
[2019-05-14 20:07] LABS: Glucose,Whole Blood 217 mg/dL (75-99)
[2019-05-14] MEDS: DULoxetine HCL 30 MG CAPSULE.DR PO SCH (21:03)
[2019-05-15] MEDS: ACETAMINOPHEN TAB 325 MG TAB PO PRN ×2 (02:33→17:43)
[2019-05-15] MEDS: HYDROcodone/APAP 10-325MG 1 EACH TAB PO PRN ×3 (05:25→21:48)
[2019-05-15] MEDS: methylPREDNISolone SOD SUCCI 125 MG/2 ML VIAL IV SCH ×3 (05:25→17:44)
[2019-05-15 07:35] LABS: Glucose,Whole Blood 149 mg/dL (75-99)
[2019-05-15] MEDS: MECLIZINE 25 MG TAB PO PRN (09:25)
[2019-05-15] MEDS: BUTALB/APAP/CAFF 50-325-40MG TAB PO PRN ×2 (09:25→21:49)
[2019-05-15] MEDS: APIXABAN 2.5 MG TABLET PO SCH ×2 (09:26→21:48)
[2019-05-15] MEDS: ATORVASTATIN 10 MG TAB PO SCH (09:26)
[2019-05-15] MEDS: DULoxetine HCL 60 MG CAPSULE.DR PO SCH (09:26)
[2019-05-15] MEDS: INSULIN ASPART (NovoLOG) 100 UNIT/ML VIAL SQ SCH ×4 (09:26→21:46)
[2019-05-15] MEDS: METOPROLOL TARTRATE 50 MG TAB PO SCH ×2 (09:26→21:47)
[2019-05-15] MEDS: BACLOFEN 10 MG TAB PO SCH ×2 (09:26→21:46)
[2019-05-15] MEDS: LISINOPRIL 20 MG TAB PO SCH ×2 (09:26→21:48)
[2019-05-15] MEDS: metFORMIN 500 MG TAB PO SCH ×2 (09:26→21:48)
[2019-05-15] MEDS: levETIRAcetam 250 MG TAB PO SCH (09:31)
[2019-05-15] MEDS: GABAPENTIN 300 MG CAP PO SCH ×3 (09:31→22:33)
[2019-05-15] MEDS: TRIAMCINOLONE ACET 0.1% OINTMENT 15 GM TUBE TOPICAL SCH ×3 (09:32→21:49)
--- NOTE | 2019-05-15 10:33 | P.PN ---
Subjective Progress Note Date: 05/14/19 Patient was seen for a follow-up. 05/14/2019: Patient continues with headache in the right occipital region extending to the right forehead region, 8/10. Continues with dizziness. Patient so far has received 1 dose of Solu-Medrol, and is getting meclizine. No improvement noted so far. 05/13/2019: Patient continues to have headache pointing to the right occipital region, that extends to the right frontal region. Now the right eye also hurts. The headaches have been going on for the past 6 months. He rates headache 8/10, sometimes feel hit by a hammer in the frontal region. It is a constant headache, gets worse, subsides and then comes back. He thinks Fioricet with codeine helps more than the regular Fioricet. His right eye also hurts. Patient apparently had right lower craniotomy for dizziness performed by Dr. Ja Ferraro in 2017. Patient's MRI of the brain without contrast from 05/09/2019 showed postoperative changes. Consider contrast enhanced exam for better evaluation if infection is suspected clinically, and interval change in the appearance of the inferior cerebellum on the right as described is indeterminate, but may represent normal evolution of postoperative findings. Patient also had an EEG on 05/09/2019, which was abnormal EEG due to generalized slowing of the background, intermittent, at least moderate in degree. This is suggestive of generalized cerebral dysfunction, as can be seen with toxic metabolic encephalopathy or due to diffuse structural brain abnormality. No epileptiform activity was seen. EKG showed sinus rhythm with fusion complexes. Patient's CBC is normal, with WBC count 9.3. PT/PTT normal. Sodium 134, potassium 4.4, renal functions normal. ESR 18. Hemoglobin A1c 6.2, liver panel normal, C-reactive protein <5.0. Cholesterol 170, LDL 93, HDL 26, B12 426, TFTs normal. UA showed positive opiate, benzodiazepine. Objective - Vital Signs Vital signs: Vital Signs Temp 97.6 F 05/14/19 14:24 Pulse 75 05/14/19 14:24 Resp 16 05/14/19 14:24 BP 119/77 05/14/19 14:24 Pulse Ox 94 L 05/14/19 14:24 Intake & Output 05/13/19 05/14/19 05/14/19 18:59 06:59 18:59 Intake Total 480 Output Total 550 1150 1550 Balance -550 -670 -1550 Intake: Oral 480 Output: Urine 550 1150 1550 - Exam On examination patient is alert and awake in no distress. Patient is fully oriented. Speech and language functions are normal. Cranial nerves are normal. He does have slight paresthesias over the right occipital nerve distribution. Muscle strength normal. Patient has no asterixis or myoclonic jerks noted. - Labs CBC & Chem 7: 05/13/19 08:22 05/13/19 08:22 Labs: Abnormal Lab Results - Last 24 Hours (Table) 05/13/19 05/14/19 05/14/19 Range/Units 21:02 06:56 16:39 POC Glucose (mg/dL) 138 H 121 H 156 H (75-99) mg/dL Microbiology - Last 24 Hours (Table) 05/08/19 23:35 Blood Culture - Preliminary Blood No Growth after 120 hours Assessment and Plan Assessment: * Toxic metabolic encephalopathy, resolved. * Right occipital pain, possible occipital neuralgia. * Previous history of craniotomy in the brainstem region on the right, for ?microvascular decompression for vertigo, per patient * History of BPPV. * Diabetes * Probable paroxysmal Atrial fibrillation on Eliquis Plan: * Patient is laying comfortably in bed, watching TV, eating dinner. Uncertain as to the validity of his symptoms. * Patient has chronic vertigo. Suggest follow-up with neurosurgery, Dr. Ja Ferraro, as his symptoms are intractable. * Suggest ENT consultation if not performed in the past to evaluate for cause of dizziness. Patient may be a candidate for vestibular rehabilitation. * Continue Neurontin to 300 mg twice a day for right occipital pain. I would suggest occipital nerve block for possible occipital neuralgia.
[2019-05-15 12:20] LABS: Glucose,Whole Blood 277 mg/dL (75-99)
--- NOTE | 2019-05-15 16:53 | P.PN ---
Subjective Patient is sitting up in the chair, reports some improvement in symptoms, discussed Dr. Ferraro and instructed him to make a follow up appointment for next week, declines transfer to [facility]. Objective - Vital Signs Vital signs: Vital Signs Temp 98.1 F 05/15/19 13:59 Pulse 87 05/15/19 13:59 Resp 16 05/15/19 13:59 BP 136/79 05/15/19 13:59 Pulse Ox 94 L 05/15/19 13:59 Intake & Output 05/14/19 05/15/19 05/15/19 18:59 06:59 18:59 Intake Total 1300 640 Output Total 1550 500 Balance -1550 800 640 Intake: Oral 1300 640 Output: Urine 1550 500 Other: Voiding Method Urinal Urinal # Voids 2 2 - Constitutional General appearance: Present: mild distress, morbidly obese - Neck Neck: Present: normal ROM - Respiratory Respiratory: bilateral: CTA - Cardiovascular Rhythm: regular - Gastrointestinal General gastrointestinal: Present: normal bowel sounds, soft - Integumentary Integumentary: Present: normal - Musculoskeletal Musculoskeletal: Present: generalized weakness - Psychiatric Psychiatric: Present: A&O x's 3 - Labs CBC & Chem 7: 05/13/19 08:22 05/13/19 08:22 Labs: Abnormal Lab Results - Last 24 Hours (Table) 05/14/19 05/14/19 05/15/19 Range/Units 16:39 20:05 07:31 POC Glucose (mg/dL) 156 H 217 H 149 H (75-99) mg/dL 05/15/19 Range/Units 12:14 POC Glucose (mg/dL) 277 H (75-99) mg/dL Microbiology - Last 24 Hours (Table) 05/08/19 23:35 Blood Culture - Final Blood No Growth after 144 hours Assessment and Plan Plan: ASSESSMENT: Dizziness. vertigo, possible brain stem dysfunction History of previous brain stem intervention Altered Mental status toxic metabolic encephalopathy Gait dysfunction Anemia normocytic anemia of chronic disease Obesity BMI 35.9 History atrial fibrillation chronic paroxysmal Diabetes Mellitus Type 2 GERD Hypertension Hyperlipidemia History of Impaired memory History of Degenerative Joint Disease Right Sciatica PLAN: Hopeful discharge soon to follow up with Neurosurgeon Dr. Ferraro Continue Neurology consultation
[2019-05-15 17:25] LABS: Glucose,Whole Blood 187 mg/dL (75-99)
[2019-05-15] MEDS: TAMSULOSIN 0.4 MG CAP.ER.24H PO SCH (17:44)
--- NOTE | 2019-05-15 17:58 | P.PN ---
Subjective Progress Note Date: 05/15/19 Patient was seen for a follow-up. 05/15/2019: Patient is laying comfortably in the bed, watching TV, eating dinner, completely normal mentation. Patient's friends are visiting him. Patient continues to complain of headache 8-9/10 all the time. It again involved the right occipital region, extends to the right frontal region. Patient has not responded to Solu-Medrol. Patient says that he had 1 very intense dizzy spell last night, that lasted for 3-4 hours. Now it's back to baseline of his chronic dizziness. Patient complains of 8-9/10 headache, but does not appear uncomfortable at all. 05/14/2019: Patient continues with headache in the right occipital region extending to the right forehead region, 8/10. Continues with dizziness. Patient so far has received 1 dose of Solu-Medrol, and is getting meclizine. No improvement noted so far. 05/13/2019: Patient continues to have headache pointing to the right occipital region, that extends to the right frontal region. Now the right eye also hurts. The headaches have been going on for the past 6 months. He rates headache 8/10, sometimes feel hit by a hammer in the frontal region. It is a constant headache, gets worse, subsides and then comes back. He thinks Fioricet with codeine helps more than the regular Fioricet. His right eye also hurts. Patient apparently had right lower craniotomy for dizziness performed by Dr. Ja Ferraro in 2017. Patient's MRI of the brain without contrast from 05/09/2019 showed postoperative changes. Consider contrast enhanced exam for better evaluation if infection is suspected clinically, and interval change in the appearance of the inferior cerebellum on the right as described is ind eterminate, but may represent normal evolution of postoperative findings. Patient also had an EEG on 05/09/2019, which was abnormal EEG due to generalized slowing of the background, intermittent, at least moderate in degree. This is suggestive of generalized cerebral dysfunction, as can be seen with toxic metabolic encephalopathy or due to diffuse structural brain abnormality. No epileptiform activity was seen. EKG showed sinus rhythm with fusion complexes. Patient's CBC is normal, with WBC count 9.3. PT/PTT normal. Sodium 134, potassium 4.4, renal functions normal. ESR 18. Hemoglobin A1c 6.2, liver panel normal, C-reactive protein <5.0. Cholesterol 170, LDL 93, HDL 26, B12 426, TFTs normal. UA showed positive opiate, benzodiazepine. Objective - Vital Signs Vital signs: Vital Signs Temp 98.1 F 05/15/19 13:59 Pulse 87 05/15/19 13:59 Resp 16 05/15/19 13:59 BP 136/79 05/15/19 13:59 Pulse Ox 94 L 05/15/19 13:59 Intake & Output 05/14/19 05/15/19 05/15/19 18:59 06:59 18:59 Intake Total 1300 640 Output Total 1550 500 Balance -1550 800 640 Intake: Oral 1300 640 Output: Urine 1550 500 Other: Voiding Method Urinal Urinal # Voids 2 2 - Exam On examination patient is alert and awake in no distress. Patient is fully oriented. Speech and language functions are normal. Cranial nerves are normal. He does have slight paresthesias over the right occipital nerve distribution. Muscle strength normal. Patient has no asterixis or myoclonic jerks noted. - Labs CBC & Chem 7: 05/13/19 08:22 05/13/19 08:22 Labs: Abnormal Lab Results - Last 24 Hours (Table) 05/14/19 05/15/19 05/15/19 Range/Units 20:05 07:31 12:14 POC Glucose (mg/dL) 217 H 149 H 277 H (75-99) mg/dL 05/15/19 Range/Units 17:09 POC Glucose (mg/dL) 187 H (75-99) mg/dL Microbiology - Last 24 Hours (Table) 05/08/19 23:35 Blood Culture - Final Blood No Growth after 144 hours Assessment and Plan Assessment: * Toxic metabolic encephalopathy, resolved. * Right occipital pain, possible occipital neuralgia. * Previous history of craniotomy in the brainstem region on the right, for ?microvascular decompression for vertigo, per patient * History of BPPV. Continues with chronic dizziness and intermittent worsening. * Diabetes * Probable paroxysmal Atrial fibrillation on Eliquis Plan: * Patient is laying comfortably in bed, watching TV, eating dinner. Uncertain as to the validity of his symptoms. Suspect some somatization disorder. Con x ray service engineer psychiatry to assess for validity of symptoms. May need MMPI. * Patient has chronic vertigo. Suggest follow-up with neurosurgery, Dr. Ja Ferraro, as his symptoms are intractable. * Recommend ENT consultation. Patient may be a candidate for vestibular rehabilitation. * Recommend occipital nerve block. Patient requesting Fioricet with codeine. We will discontinue Solu-Medrol, increase dose of gabapentin to 600 mg 3 times a day.
[2019-05-15 20:06] LABS: Glucose,Whole Blood 217 mg/dL (75-99)
[2019-05-15] MEDS: DULoxetine HCL 30 MG CAPSULE.DR PO SCH (21:49)
[2019-05-15 22:13] VITALS: RESP 18
[2019-05-16 07:16] LABS: Glucose,Whole Blood 150 mg/dL (75-99)
[2019-05-16] MEDS: MECLIZINE 25 MG TAB PO PRN (09:57)
[2019-05-16] MEDS: DULoxetine HCL 60 MG CAPSULE.DR PO SCH (09:57)
[2019-05-16] MEDS: GABAPENTIN 300 MG CAP PO SCH (09:57)
[2019-05-16] MEDS: BUTALB/APAP/CAFF 50-325-40MG TAB PO PRN (09:57)
[2019-05-16] MEDS: BACLOFEN 10 MG TAB PO SCH (09:58)
[2019-05-16] MEDS: HYDROcodone/APAP 10-325MG 1 EACH TAB PO PRN (09:58)
[2019-05-16] MEDS: METOPROLOL TARTRATE 50 MG TAB PO SCH (09:58)
[2019-05-16] MEDS: LISINOPRIL 20 MG TAB PO SCH (09:58)
[2019-05-16] MEDS: levETIRAcetam 250 MG TAB PO SCH (09:58)
[2019-05-16] MEDS: metFORMIN 500 MG TAB PO SCH (09:59)
[2019-05-16] MEDS: APIXABAN 2.5 MG TABLET PO SCH (09:59)
[2019-05-16] MEDS: INSULIN ASPART (NovoLOG) 100 UNIT/ML VIAL SQ SCH ×2 (09:59→13:03)
[2019-05-16] MEDS: ATORVASTATIN 10 MG TAB PO SCH (09:59)
[2019-05-16] MEDS: TRIAMCINOLONE ACET 0.1% OINTMENT 15 GM TUBE TOPICAL SCH (10:03)
[2019-05-16 11:38] LABS: Glucose,Whole Blood 157 mg/dL (75-99)
[2019-05-16 12:03] VITALS: BP 136/69; PULSE 66; TEMP 97.7
--- NOTE | 2019-05-16 14:14 | P.DS ---
Providers Date of admission: 05/10/19 10:57 Attending physician: Damon Rodriguez Consults: 05/09/19 00:53 Consult Physician Urgent Consulting Provider: Fang Ryan Consult Reason/Comments: altered, twitching of limbs, concern for seizure activity, hx of ICH Do you want consulting provider notified?: Yes, Notify in am 05/09/19 15:05 Consult Physician Routine Consulting Provider: Rani Chan Consult Reason/Comments: sepsis Do you want consulting provider notified?: Yes Primary care physician: Damon Rodriguez Hospital Course: 68-year-old male was admitted secondary to multiple complaints including confusion occipital neurology a lightheadedness and vertigo. Patient was extensively evaluated by neurology although tests were negative. And the isabel ent is better to have somatization disorder. Patient is Fabien still complaining of severe dizziness. Patient will be referred to psychiatric and close follow with PCP and will be discharged today. Patient will give given prescription for meclizine not sure if it will help him much and present dose of Neurontin. PHYSICAL EXAMINATION: GENERAL: The patient is alert and oriented x3, not in any acute distress. Obese HEENT: Pupils are round and equally reacting to light. EOMI. No scleral icterus. No conjunctival pallor. Normocephalic, atraumatic. No pharyngeal erythema. No thyromegaly. CARDIOVASCULAR: S1 and S2 present. No murmurs, rubs, or gallops. PULMONARY: Chest is clear to auscultation, no wheezing or crackles. ABDOMEN: Soft, nontender, nondistended, normoactive bowel sounds. No palpable organomegaly. MUSCULOSKELETAL: No joint swelling or deformity. EXTREMITIES: No cyanosis, clubbing, or pedal edema. NEUROLOGICAL: Gross neurological examination did not reveal any focal deficits. SKIN: No rashes. Please refer to Dr. Rodriguez dictation for hospitalization course and other medical problems that were addressed during this hospital physician Patient Condition at Discharge: Stable Plan - Discharge Summary Discharge Rx Participant: No New Discharge Prescriptions: New Tamsulosin [Flomax] 0.4 mg PO PC-SUPPER #30 cap.er.24h Gabapentin [Neurontin] 600 mg PO TID #60 cap Meclizine [Antivert] 25 mg PO TID PRN #20 tab PRN Reason: Vertigo Continue Atorvastatin [Lipitor] 10 mg PO DAILY DULoxetine HCL [Cymbalta] 30 mg PO HS Lisinopril [Zestril] 20 mg PO BID metFORMIN HCL [Glucophage] 500 mg PO BID Metoprolol Tartrate [Lopressor] 50 mg PO BID Apixaban [Eliquis] 2.5 mg PO BID Baclofen [Lioresal] 20 mg PO BID Butalb/Acetaminophen/Caffeine [Fioricet 50-300-40 mg Capsule] 1 cap PO BID PRN PRN Reason: Migraine Headache DULoxetine HCL [Cymbalta] 60 mg PO DAILY HYDROcodone/APAP 10-325MG [[place] 10-325] 1 tab PO TID levETIRAcetam [Keppra] 250 mg PO DAILY Discontinued Gabapentin [Neurontin] 100 mg PO BID Discharge Medication List Atorvastatin [Lipitor] 10 mg PO DAILY 10/08/15 [History] DULoxetine HCL [Cymbalta] 30 mg PO HS 09/15/18 [History] Lisinopril [Zestril] 20 mg PO BID 09/15/18 [History] Apixaban [Eliquis] 2.5 mg PO BID 12/17/18 [History] Metoprolol Tartrate [Lopressor] 50 mg PO BID 12/17/18 [History] metFORMIN HCL [Glucophage] 500 mg PO BID 12/17/18 [History] Baclofen [Lioresal] 20 mg PO BID 05/09/19 [History] Butalb/Acetaminophen/Caffeine [Fioricet 50-300-40 mg Capsule] 1 cap PO BID PRN 05/09/19 [History] DULoxetine HCL [Cymbalta] 60 mg PO DAILY 05/09/19 [History] HYDROcodone/APAP 10-325MG [[place] 10-325] 1 tab PO TID 05/09/19 [History] levETIRAcetam [Keppra] 250 mg PO DAILY 05/09/19 [History] Gabapentin [Neurontin] 600 mg PO TID #60 cap 05/16/19 [Rx] Meclizine [Antivert] 25 mg PO TID PRN #20 tab 05/16/19 [Rx] Tamsulosin [Flomax] 0.4 mg PO PC-SUPPER #30 cap.er.24h 05/16/19 [Rx] Follow up Appointment(s)/Referral(s): Damon Rodriguez MD [Primary Care Provider] - 05/20/19 10:10 am () [facility], [NON-STAFF] - Randy Law DO [Medical Doctor] - 1 Week (Please call office to make appointment) Patient Instructions/Handouts: Vertigo (DC) Discharge Disposition: HOME WITH HOME HEALTH SERVICES
== END 2019-05-16 13:50 | disposition home health service (06) | DRG 149 ==
LOC: EC 22:40 → 6NMEDSUR 05-09 00:55 → OBSVTOIN 05-10 10:57
PROVIDERS: ADMIT Family Medicine; ATTEND Family Medicine
DX: R42 Dizziness and giddiness (principal); G92 Toxic encephalopathy; E87.2 Acidosis; F11.20 Opioid dependence, uncomplicated; I48.20 Chronic atrial fibrillation, unspecified; D63.8 Anemia in other chronic diseases classified elsewhere; E11.9 Type 2 diabetes mellitus without complications; E66.01 Morbid (severe) obesity due to excess calories; E78.5 Hyperlipidemia, unspecified; F45.0 Somatization disorder; G25.3 Myoclonus; G93.89 Other specified disorders of brain; I10 Essential (primary) hypertension; I48.0 Paroxysmal atrial fibrillation; K21.9 Gastro-esophageal reflux disease without esophagitis; M19.90 Unspecified osteoarthritis, unspecified site; M54.41 Lumbago with sciatica, right side; R29.6 Repeated falls; W06.XXXA Fall from bed, initial encounter; Z68.35 Body mass index [BMI] 35.0-35.9, adult; Z79.01 Long term (current) use of anticoagulants; Z79.84 Long term (current) use of oral hypoglycemic drugs; Z79.899 Other long term (current) drug therapy; Z82.49 Family history of ischemic heart disease and other diseases of the circulatory system; Z86.14 Personal history of Methicillin resistant Staphylococcus aureus infection; Z86.73 Personal history of transient ischemic attack (TIA), and cerebral infarction without residual deficits; Z87.01 Personal history of pneumonia (recurrent); Z87.891 Personal history of nicotine dependence; Z90.13 Acquired absence of bilateral breasts and nipples; Z85.3 Personal history of malignant neoplasm of breast; G44.89 Other headache syndrome; Z88.1 Allergy status to other antibiotic agents; Z88.0 Allergy status to penicillin; R26.9 Unspecified abnormalities of gait and mobility
CPT/HCPCS: 36415; 70450; 70551; 72100; 80048; 80053; 80177; 80306; 81001; 82550; 83605; 84484; 85025; 85610; 85652; 85730; 86140; 87040; 87086; 93005; 94760; 95819; 96361; 96374; 99285

== ENCOUNTER 2019-07-09 13:12 | Emergency (ER) | payer MEDICARE ==
[2019-07-09 13:19] VITALS: RESP 18; TEMP 98.2
--- NOTE | 2019-07-09 13:29 | ED ---
General Adult HPI - General Chief complaint: Fall Stated complaint: Fall Time Seen by Provider: 07/09/19 13:18 Source: EMS Mode of arrival: EMS Limitations: no limitations - History of Present Illness Initial comments: Dictation was produced using [employer] dictation software. please excuse any grammatical, word or spelling errors. This patient was cared for during a federal and state declared state of emergency secondary to Covid 19 Chief Complaint: 69-year-old male past medical history of brain stem surgery, atrial fibrillation, diabetes presents with fall and vertigo. History of Present Illness: 69-year-old male brought in by EMS. Patient states she has history of vertigo. He had a vertiginous episode today causing him to fall backwards. Patient states he thinks he fell on his arm. Complains of left upper extremity pain and right back pain. Thinks he broke his ribs. Patient complains of pain worse at his wrist. He does complain of some pleuritic pain to his right rib area. Patient states that 3 years ago he had recent surgery performed at [facility] to treat his vertigo. He states that vertigo definitely improved. He was also told that he would need a follow-up surgery for treatment. He has no other complaints at this time. The ROS documented in this emergency department record has been reviewed and confirmed by me. Those systems with pertinent positive or negative responses have been documented in the HPI. All other systems are other negative and/or noncontributory. PHYSICAL EXAM: General Impression: Alert and oriented x3, acute distress secondary to pain HEENT: Normocephalic atraumatic, extra-ocular movements intact, pupils equal and reactive to light bilaterally, mucous membranes moist. Cardiovascular: Heart regular rate and rhythm Chest: Able to complete full sentences, no retractions, no tachypnea Abdomen: Bowel sounds present, abdomen soft, non-tender, non-distended, no org anomegaly Musculoskeletal: Pulses present and equal in all extremities, no peripheral edema, gross deformity at the left wrist, no neurovascular compromise, tenderness to palpation of the right ribs Motor: no focal deficits noted Neurological: CN II-XII grossly intact, no focal motor or sensory deficits noted Skin: Intact with no visualized rashes Psych: Normal affect and mood ED course: 69-year-old male presents with fall and vertigo. Signs upon arrival are within acceptable limits. Computed tomography scan of the brain and C-spine shows no acute processes. Chest x-ray is unremarkable. Elbow x-rays negative. Wrist x-ray shows comminuted distal radius fracture of the left upper extremity. There was minimal angulation with mild comminution at the distal radius and distal ulna. Radiology films were discussed and reviewed by orthopedic surgery. Discussed patient case with Rahat Paige, physician general surgery physician assistant for orthopedics who suggested that fracture reduction is not indicated at this time. Patient placed in a sugar tong splint. Patient given IV analgesics and Antivert. Chest x-ray is unremarkable. Chest symptoms likely secondary chest contusion.Laboratory evaluation obtained. CBC, metabolic panel is obtained. There is slight hypomagnesemia. Patient given oral magnesium. His EKG does not show prolonged QT. Patient reevaluated after ER observation of approximately 2 hours. He states he feels well and would like to go home. He reports that his vertigo is slightly better. Patient given some narcotics to go home with to take for the pain. He is given referral to orthopedic surgery Dr. Andersen's office. EKG interpretation: Ventricular rate 66, normal sinus rhythm, ME interval 140, QRS 94, QTC 44. No ME prolongation, no QTC prolongation, no ST or T-wave changes noted. Overall, this EKG is unremarkable - Related Data Home Medications Medication Instructions Recorded Confirmed Atorvastatin [Lipitor] 10 mg PO DAILY 10/08/15 07/09/19 DULoxetine HCL [Cymbalta] 30 mg PO HS 09/15/18 07/09/19 Lisinopril [Zestril] 20 mg PO BID 09/15/18 07/09/19 Apixaban [Eliquis] 2.5 mg PO BID 12/17/18 07/09/19 Metoprolol Tartrate [Lopressor] 50 mg PO BID 12/17/18 07/09/19 metFORMIN HCL [Glucophage] 500 mg PO BID 12/17/18 07/09/19 Baclofen [Lioresal] 20 mg PO BID 05/09/19 07/09/19 Butalb/Acetaminophen/Caffeine 1 cap PO BID PRN 05/09/19 07/09/19 [Fioricet 50-300-40 mg Capsule] DULoxetine HCL [Cymbalta] 60 mg PO DAILY 05/09/19 07/09/19 HYDROcodone/APAP 10-325MG [Breeding 1 tab PO TID 05/09/19 07/09/19 10-325] levETIRAcetam [Keppra] 250 mg PO DAILY 05/09/19 07/09/19 Gabapentin [Neurontin] 300 mg PO BID 07/09/19 07/09/19 Previous Rx's Medication Instructions Recorded Meclizine [Antivert] 25 mg PO TID PRN #20 tab 05/16/19 Tamsulosin [Flomax] 0.4 mg PO PC-SUPPER #30 cap.er.24h 05/16/19 HYDROcodone/APAP 5-325MG [Breeding 1 tab PO Q6HR PRN 3 Days #12 tab 07/09/19 5-325] Allergies Allergy/AdvReac Type Severity Reaction Status Date / Time cephalexin monohydrate Allergy Anaphylaxis Verified 07/09/19 14:36 [From Keflex] Cephalosporins Allergy Unknown Verified 07/09/19 14:36 Penicillins Allergy Anaphylaxis Verified 07/09/19 14:36 Review of Systems ROS Statement: Those systems with pertinent positive or pertinent negative responses have been documented in the HPI. ROS Other: All systems not noted in ROS Statement are negative. Past Medical History Past Medical History: Atrial Fibrillation, Cancer, Diabetes Mellitus, GERD/Reflux, Hyperlipidemia, Hypertension, Memory Impairment, Osteoarthritis (OA), Pneumonia Additional Past Medical History / Comment(s): 03-10-16 FELL/FX RT FIBULA, VERTIGO chronic headaches History of Any Multi-Drug Resistant Organisms: MRSA Date of last positivie culture/infection: 02/2017 MDRO Source:: MRSA Past Surgical History: Back Surgery, Breast Surgery, Orthopedic Surgery Additional Past Surgical History / Comment(s): Bilateral mastectomy with right sided lymp node removal due to cancer, R knee cap removed, Back surgery for herniated disc., Brain stem surgery for decompression-for dizziness, right ankle ORIF, bilateral wrist fractures Past Anesthesia/Blood Transfusion Reactions: No Reported Reaction Past Psychological History: No Psychological Hx Reported Smoking Status: Former smoker Past Alcohol Use History: None Reported Past Drug Use History: None Reported - Past Family History Father History Unknown: Yes Family Medical History: Congestive Heart Failure (CHF) Additional Family Medical History / Comment(s): at 68. Mother History Unknown: Yes Family Medical History: Hypertension Additional Family Medical History / Comment(s): Pulmonary hypertension. at 78. General Exam Limitations: no limitations Course Vital Signs 07/09/19 07/09/19 13:15 15:04 Temperature 98.2 F Pulse Rate 84 82 Respiratory 18 18 Rate Blood Pressure 136/82 116/75 O2 Sat by Pulse 98 98 Oximetry Medical Decision Making - Lab Data Result diagrams: 07/09/19 14:20 07/09/19 14:20 Lab Results 07/09/19 07/09/19 Range/Units 14:20 14:20 WBC 10.0 (3.8-10.6) k/uL RBC 4.40 (4.30-5.90) m/uL Hgb 13.9 (13.0-17.5) gm/dL Hct 41.9 (39.0-53.0) % MCV 95.2 (80.0-100.0) fL MCH 31.6 (25.0-35.0) pg MCHC 33.2 (31.0-37.0) g/dL RDW 12.7 (11.5-15.5) % Plt Count 235 (150-450) k/uL Neutrophils % 72 % Lymphocytes % 17 % Monocytes % 6 % Eosinophils % 3 % Basophils % 0 % Neutrophils # 7.2 (1.3-7.7) k/uL Lymphocytes # 1.7 (1.0-4.8) k/uL Monocytes # 0.6 (0-1.0) k/uL Eosinophils # 0.3 (0-0.7) k/uL Basophils # 0.0 (0-0.2) k/uL Sodium 136 L (137-145) mmol/L Potassium 4.6 (3.5-5.1) mmol/L Chloride 100 (98-107) mmol/L Carbon Dioxide 24 (22-30) mmol/L Anion Gap 12 mmol/L BUN 18 (9-20) mg/dL Creatinine 0.99 (0.66-1.25) mg/dL Est GFR (CKD-EPI)AfAm 89 (>60 ml/min/1.73 sqM) Est GFR (CKD-EPI)NonAf 77 (>60 ml/min/1.73 sqM) Glucose 136 H (74-99) mg/dL Calcium 9.6 (8.4-10.2) mg/dL Magnesium 1.3 L (1.6-2.3) mg/dL Disposition Clinical Impression: Radius fracture Disposition: HOME SELF-CARE Condition: Good Instructions (If sedation given, give patient instructions): Fall Prevention for Older Adults (ED), Wrist Fracture in Adults (ED) Additional Instructions: Please follow up with orthopedic surgery. Call the office to make an appointment. Some pain medications were sent to your preferred pharmacy for pickup. Prescriptions: HYDROcodone/APAP 5-325MG [Breeding 5-325] 1 tab PO Q6HR PRN 3 Days #12 tab PRN Reason: Severe Pain Is patient prescribed a controlled substance at d/c from ED?: No Referrals: Finn Andersen DO [Doctor of Osteopathic Medicine] - 1-2 days Time of Disposition: 15:13
[2019-07-09] MEDS ORDERED: MORPHINE SULFATE 4 MG/ML SYRINGE IV STA (13:40)
--- NOTE | 2019-07-09 14:03 | CT ---
EXAMINATION TYPE: CT brain aubrey mcelroy con DATE OF EXAM: 07/09/2019 COMPARISON: 05/08/2019 HISTORY: Pain status post fall Unenhanced CT of the brain was performed. The ventricles, basal cisterns and sulci overlying the cerebral convexities demonstrate mild enlargem ent. There is no evidence for intracranial hemorrhage or sulcal effacement. There is decreased attenuatio n about the periventricular white matter and deep white matter of both cerebral hemispheres, compatib le with chronic small vessel ischemia. No mass effects are seen. If symptoms persist consider MRI. Osseous calvarium is free of fracture. Right occipital craniotomy changes. IMPRESSION: 1. Age related atrophic and chronic small vessel ischemic change without acute intracranial process seen at this time. CT Cervical Spine: Unenhanced CT of the cervical spine was performed with bone and soft tissue window settings submitted . Coronal and sagittal reconstruction is obtained. There is normal alignment and prevertebral soft tissues. No evidence for acute cervical fracture . Scattered degenerative disc disease and spondylosis. Biapical scarring. IMPRESSION: 1. No evidence for acute fracture or subluxation of the cervical spine.
--- NOTE | 2019-07-09 14:12 | XR ---
EXAMINATION TYPE: XR chest 2V DATE OF EXAM: 07/09/2019 COMPARISON: 12/17/2018 HISTORY: Shortness of breath TECHNIQUE: Frontal and lateral views of the chest are obtained. FINDINGS: Scattered senescent parenchymal changes noted. No evidence for infiltrate. No evidence for atelectasis. Heart size is stable. Mediastinal structures are stable and grossly unremarkable. No evidence for hilar prominence. Degenerative changes dorsal spine. IMPRESSION: 1. No evidence for acute pulmonary disease.
[2019-07-09] MEDS ORDERED: PROPOFOL 10 MG/ML 20 ML VIAL IV ONE (14:14)
--- NOTE | 2019-07-09 14:17 | XR ---
EXAMINATION TYPE: XR wrist limited LT, XR elbow limited LT DATE OF EXAM: 07/09/2019 CLINICAL HISTORY: pain TECHNIQUE: Frontal, lateral images of the left wrist are obtained. 2 views of the left elbow were a lso submitted. COMPARISON: None. FINDINGS: There is a distal impacted radial fracture with comminution seen. Mildly comminuted ulnar s tyloid component seen. Intra-articular extension is difficult to exclude. Soft tissue edema noted. No fracture about the left elbow. The joint spaces appear within normal limits. The overlying soft ti ssue appears unremarkable. IMPRESSION: There is a distal impacted radial fracture with comminution seen. Mildly comminuted ulnar styloid com ponent seen. ICD 10 closed FRACTURE, INITIAL EVALUATION
[2019-07-09] MEDS ORDERED: MECLIZINE 12.5 MG TAB PO STA (14:35)
[2019-07-09 14:36] LABS: Basophils % (A) 0 %; Eosinophils # (A) 0.3 k/uL (0-0.7); Eosinophils % (A) 3 %; HCT 41.9 % (39.0-53.0); HGB 13.9 gm/dL (13.0-17.5); Lymphocytes # (A) 1.7 k/uL (1.0-4.8); Lymphocytes % (A) 17 %; MCH 31.6 pg (25.0-35.0); MCHC 33.2 g/dL (31.0-37.0); MCV 95.2 fL (80.0-100.0); Mean Platelet Volume 7.5; Monocytes # (A) 0.6 k/uL (0-1.0); Monocytes % (A) 6 %; Neutrophils # (A) 7.2 k/uL (1.3-7.7); Neutrophils % (A) 72 %; Platelet Count 235 k/uL (150-450); RDW 12.7 % (11.5-15.5)
[2019-07-09] MEDS ORDERED: ONDANSETRON 4 MG/2 ML VIAL IVP STA (14:36)
[2019-07-09 14:44] LABS: Calcium 9.6 mg/dL (8.4-10.2); Magnesium 1.3 mg/dL (1.6-2.3); Potassium 4.6 mmol/L (3.5-5.1)
[2019-07-09] MEDS ORDERED: MAGNESIUM OXIDE 400 MG TAB PO STA (15:01)
[2019-07-09 15:04] VITALS: BP 116/75
[2019-07-09] MEDS ORDERED: ACET/COD 300 MG/30 MG STARTER PACK 6 TAB BTL PO STA (15:14)
[2019-07-09 15:20] VITALS: PULSE 80
== END 2019-07-09 15:19 | disposition home or self-care (01) ==
LOC: EC 13:12
DX: S52.502A Unspecified fracture of the lower end of left radius, initial encounter for closed fracture (principal); E83.42 Hypomagnesemia; M54.9 Dorsalgia, unspecified; R07.81 Pleurodynia; R42 Dizziness and giddiness; I48.91 Unspecified atrial fibrillation; E11.9 Type 2 diabetes mellitus without complications; E78.5 Hyperlipidemia, unspecified; I10 Essential (primary) hypertension; M19.90 Unspecified osteoarthritis, unspecified site; Z86.14 Personal history of Methicillin resistant Staphylococcus aureus infection; Z85.9 Personal history of malignant neoplasm, unspecified; Z98.890 Other specified postprocedural states; Z87.891 Personal history of nicotine dependence; Z79.01 Long term (current) use of anticoagulants; Z79.84 Long term (current) use of oral hypoglycemic drugs; Z79.891 Long term (current) use of opiate analgesic; Z79.899 Other long term (current) drug therapy; Z88.1 Allergy status to other antibiotic agents; Z88.0 Allergy status to penicillin; Z53.8 Procedure and treatment not carried out for other reasons; W19.XXXA Unspecified fall, initial encounter; Y92.009 Unspecified place in unspecified non-institutional (private) residence as the place of occurrence of the external cause
CPT/HCPCS: 36415; 93005; 80048; 83735; 85025; 73070; 73100; 71046; 72125; 70450; 99284; 29125; 96374; 96375; J2270; J2405

== ENCOUNTER 2019-07-14 05:56 | Inpatient (IN) | payer MEDICARE ==
[2019-07-11 13:55] VITALS: BMI 36.5
--- NOTE | 2019-07-13 14:09 | HP ---
HISTORY AND PHYSICAL Surgery is scheduled for 07/14/2019. Kyle Bui is a 69-year-old patient seen with a comminuted displaced intraarticular left distal radius fracture along with ulnar styloid fracture. I recommended open reduction and internal fixation. I discussed the procedure, risks, complications, benefits, and recovery. He was agreeable. Consent was obtained. PAST MEDICAL HISTORY: Hypertension, noninsulin-dependent diabetes, hyperlipidemia. PAST SURGICAL HISTORY: Right knee surgery, left wrist surgery. DAILY MEDICATIONS: Gabapentin, Lipitor, metformin, lisinopril. ALLERGIES: PENICILLIN and KEFLEX. SOCIAL HISTORY: He denies current tobacco use. PHYSICAL EXAMINATION: Physical evaluation of the left wrist: There is obvious tenderness along the distal radius and ulna. There is no significant deformity present. There is some swelling present. He is able to move his fingers without pain, although somewhat limited. There is good sensation and perfusion distally. There is a good radial pulse present. Radiographs of the left wrist revealed a comminuted intraarticular distal radial fracture as well as a distal ulna styloid fracture. IMPRESSION: 1. Comminuted displaced left distal radius fracture with ulnar styloid fracture. 2. Hypertension. 3. Noninsulin-dependent diabetes. 4. Hyperlipidemia. PLAN: Open reduction internal fixation of left distal radius. Surgery is scheduled for 07/14/2019. MMODL / IJN: [id number] /
[~2019-07-14 05:56] MED LIST: CLINDAMYCIN 900 MG in DEXTROSE 5% IN WATER 50 ML IVPB ONE; DEXAMETHASONE SOD PHOSPHATE 10 MG/ML 1 ML VIAL IV ONE; LIDOCAINE 1% (10MG/ML) FOR IV START INTRADERMA PRN; MIDAZOLAM 2 MG/2 ML VIAL IV PRN; ONDANSETRON 4 MG/2 ML VIAL IVP ONE; fentaNYL (PF) 50 MCG/ML 2 ML AMP IV PRN
[2019-07-14 06:49] LABS: Glucose,Whole Blood 129 mg/dL (75-99)
[2019-07-14] MEDS: LACTATED RINGERS 1,000 ML IV SCH (06:54)
[2019-07-14] MEDS ORDERED: fentaNYL (PF) 50 MCG/ML 2 ML AMP IVP ONE (07:21)
[2019-07-14] MEDS ORDERED: ROPIVACAINE 5 MG/ML 30 ML VIAL ONE (07:31)
[2019-07-14] MEDS ORDERED: MIDAZOLAM 2 MG/2 ML VIAL ONE (07:31)
[2019-07-14] MEDS ORDERED: SUCCINYLCHOLINE CHLORIDE 100 MG/5 ML SYR IV ONE (07:31)
[2019-07-14] MEDS ORDERED: ALFENTANIL 500 MCG/ML 2 ML AMP IV ONE (07:31)
[2019-07-14] MEDS ORDERED: PHENYLEPHRINE-0.9% NACL SYG 1 MG/10 ML SYRINGE ONE (07:31)
[2019-07-14] MEDS ORDERED: PROPOFOL 10 MG/ML 20 ML VIAL IV ONE (07:31)
[2019-07-14] MEDS ORDERED: LIDOCAINE 1% INJ 10MG/ML (20 ML MDV) ONE (07:31)
[2019-07-14] MEDS ORDERED: ROCURONIUM BROMIDE 10 MG/ML 5 ML VIAL IV ONE (07:31)
--- NOTE | 2019-07-14 07:53 | P.ANPRN ---
Procedure Note - Anesthesia - Nerve Block Performed Left Supraclavicular Single Time Out Performed: Yes Date of Procedure: 07/14/19 Procedure Start Time: Procedure Stop Time: Location of Patient: PreOp Indication: Requested by Surgeon Specifically requested for management of pain by DrDayna: Finn Andersen Sedation Type: Sedate with meaningful contact maintained Position: Supine Needle Types: Pajunk Needle Gauge: 20 Ultrasound used to visualize needle placement: Yes Ultrasound used to observe medication spread: Yes Injectate: 0.5% Ropivacaine (see comment for volume) (20 ml plus 4 mg Dexamethason) Blood Aspirated: No Pain Paresthesia on Injection Noted: No Resistance on Injection: Normal Image Stored and Saved: Yes Events: Uneventful and Well Tolerated
[2019-07-14] MEDS ORDERED: LACTATED RINGERS 1,000 ML IV ONE (08:10)
[2019-07-14] MEDS ORDERED: ONDANSETRON 4 MG/2 ML VIAL IVP PRN (09:09)
--- NOTE | 2019-07-14 09:10 | XR ---
Fluoroscopy History: ORIF LEFT WRIST FL TIME 3 SECS left wrist with fracture. Dr. Andersen supervised use of c-arm for an orif fl time 3 secs
[2019-07-14] MEDS ORDERED: MECLIZINE 25 MG TAB PO PRN (09:19)
--- NOTE | 2019-07-14 09:21 | P.OP ---
Date of Procedure: 07/14/19 Preoperative Diagnosis: Comminuted displaced three-part intra-articular left distal radius fracture Postoperative Diagnosis: Same Procedure(s) Performed: Open reduction internal fixation left distal radius fracture Implants: Synthes distal volar wrist plate with appropriate length distal and proximal screws Anesthesia: GETA, regional (Supraclavicular block) Surgeon: Finn Andersen Color Technician #1: Jose Guadalupe Paige Estimated Blood Loss (ml): 5 Pathology: none sent Condition: stable Disposition: PACU Indications for Procedure: 69-year-old patient seen with a comminuted displaced intra-articular fracture of the left distal radius. I recommended open reduction internal fixation. Patient was agreeable. Consent was obtained. Operative Findings: See description of procedure Description of Procedure: The patient underwent a left supraclavicular block by the Department seizure. The patient is taken to the operative suite. The patient received preoperative IV antibiotics. The patient underwent a general anesthetic by the department of anesthesia. A well-padded tourniquet placed proximal left upper extremity. Left upper extremity was prepped and draped in the normal sterile orthopedic fashion. The extremity was elevated and tourniquet insufflated to 250. A standard distal volar wrist incision was made sharply through skin. Dissection was carefully taken down to the fascia. The fascia was incised. We bluntly dissected down to the distal radius taking care to carefully retract the nerve. The fracture was identified. Periosteal elevators were utilized to define the fracture. It was severely comminuted 3 part fracture with intra-articular extension. With the assistance of Rahat ESPINOZA the fracture was reduced and held in position. I chose a appropriate Synthes distal volar wrist plate. It was secured. A proximal drill hole was made in approximately screws inserted. The construct was reviewed under intraoperative imaging and we noted s atisfactory alignment of the plate and fracture. We now drilled appropriately screws distally and appropriate length screws were inserted with good fixation noted. An additional proximal drill hole was made and a proximal screw was inserted. The entire construct was visualized under fluoroscopy we noted good alignment with good positioning of the hardware. Spot films repair document this. The wound was irrigated. The subcu soft tissues were repaired utilizing 2-0 Vicryl. The skin is proximal with a running subcutaneous suture and exofin. Sterile dressings were applied. The tourniquet was released with immediate capillary refill noted. A volar wrist splint was applied. The patient was awakened, transferred to recovery stable condition. Rahat ESPINOZA assisted procedure.
[2019-07-14] MEDS: HYDROmorphone 0.5 MG/0.5 ML SYRINGE IVP PRN ×6 (09:25→23:44)
[2019-07-14] MEDS: HYDROmorphone 1 MG/ML 1 ML SYRINGE IVP PRN (12:32)
[2019-07-14] MEDS: HYDROcodone/APAP 10-325MG 1 EACH TAB PO SCH ×2 (16:02→21:39)
[2019-07-14] MEDS: CLINDAMYCIN 900 MG in DEXTROSE 5% IN WATER 50 ML IVPB SCH ×4 (16:38→23:45)
[2019-07-14 21:17] LABS: Glucose,Whole Blood 186 mg/dL (75-99)
[2019-07-14] MEDS: GABAPENTIN 300 MG CAP PO SCH (21:39)
[2019-07-14] MEDS: lisinopriL 20 MG TAB PO SCH (21:39)
[2019-07-14] MEDS: BACLOFEN 10 MG TAB PO SCH (21:39)
[2019-07-14] MEDS: METOPROLOL TARTRATE 50 MG TAB PO SCH (21:39)
[2019-07-14] MEDS: DULoxetine HCL 30 MG CAPSULE.DR PO SCH (21:39)
[2019-07-14] MEDS: metFORMIN 500 MG TAB PO SCH (21:40)
[2019-07-14] MEDS: BUTALB/APAP/CAFF 50-325-40MG TAB PO PRN (21:49)
[2019-07-15] MEDS: HYDROmorphone 1 MG/ML 1 ML SYRINGE IVP PRN ×3 (02:03→15:33)
[2019-07-15] MEDS: DULoxetine HCL 60 MG CAPSULE.DR PO SCH ×2 (08:43→08:46)
[2019-07-15] MEDS: METOPROLOL TARTRATE 50 MG TAB PO SCH (08:43)
[2019-07-15] MEDS: HYDROcodone/APAP 10-325MG 1 EACH TAB PO SCH ×3 (08:43→21:51)
[2019-07-15] MEDS: lisinopriL 20 MG TAB PO SCH (08:43)
[2019-07-15] MEDS: ATORVASTATIN 10 MG TAB PO SCH (08:43)
[2019-07-15] MEDS: metFORMIN 500 MG TAB PO SCH ×2 (08:43→20:25)
[2019-07-15] MEDS: GABAPENTIN 300 MG CAP PO SCH ×2 (08:43→20:26)
[2019-07-15] MEDS: BACLOFEN 10 MG TAB PO SCH ×2 (08:43→20:26)
--- NOTE | 2019-07-15 10:40 | P.DS ---
Providers Date of admission: 07/14/2019 Expected date of discharge: 07/15/19 Attending physician: Finn Andersen Primary care physician: Damon Rodriguez Hospital Course: Date of admission: 07/14/2019 Date of discharge: 07/15/2019 Admission diagnosis: Status post ORIF left distal radius fracture Discharge diagnosis: Same Attending physician: Dr. Andersen Surgical procedures: Open reduction internal fixation left distal radius fract ure Brief history: Patient is a 69-year-old male with a history of an injury that occurred was left wrist. Patient was evaluated in the outpatient setting by Dr. Andersen, it was determined he would need surgical fixation of his left wrist fracture. He was scheduled for surgery on 07/14/2019. Hospital course: Details of patient's surgery can be found in operative report. Patient tolerated the procedure well and was subsequently transported to orthopedic floor. Patient's orthopeidc and medical care was provided daily. Patient had daily laboratory tests performed for evaluation of overall blood counts. Patient had daily physical therapy to include strengthening range of motion as well as education with walker ambulation. Patient was noted to have a relatively uneventful postoperative course. Patient reported satisfactory pain control with oral pain medications by postoperative day 0. Patient showed satisfactory progress with physical therapy. Patient moved steadily through the program and had no difficulty meeting the goals by postoperative day 1. Given patient's otherwise satisfactory course and having met physical therapy goals, plan is to discharge patient home on postoperative day 1. Discharge condition/disposition: Patient will be discharged home in stable condition. Discharge medications: Instructions are given on resumption of patient's normal daily medications per primary care recommendation, in addition patient will be prescribed no new medications. Discharge instructions: 1. Wound care and infection precautions, keep incision dry and covered while sh owering, no lotions, creams, moisturizers. No soaking, tubs, pools, hottubs. Do not scrub over the incision. 2. Utilize arm splint, do not remove 3. Keep splint covered and dry while showering 4. Follow up in office at 2 weeks postop with Rahat aPige PA-C 5. Follow up with your primary care doctor 7-10 days after discharge. 6. Contact [facility] with any questions, . Procedures: Open reduction internal fixation left distal radius fracture Patient Condition at Discharge: Good Plan - Discharge Summary Discharge Rx Participant: No New Discharge Prescriptions: No Action Atorvastatin [Lipitor] 10 mg PO DAILY DULoxetine HCL [Cymbalta] 30 mg PO HS Lisinopril [Zestril] 20 mg PO BID metFORMIN HCL [Glucophage] 500 mg PO BID Metoprolol Tartrate [Lopressor] 50 mg PO BID Baclofen [Lioresal] 20 mg PO BID Butalb/Acetaminophen/Caffeine [Fioricet 50-300-40 mg Capsule] 1 cap PO BID PRN PRN Reason: Migraine Headache DULoxetine HCL [Cymbalta] 60 mg PO DAILY HYDROcodone/APAP 10-325MG [[place] 10-325] 1 tab PO TID Meclizine [Antivert] 25 mg PO TID PRN #20 tab PRN Reason: Vertigo Gabapentin [Neurontin] 300 mg PO BID Discharge Medication List Atorvastatin [Lipitor] 10 mg PO DAILY 10/08/15 [History] DULoxetine HCL [Cymbalta] 30 mg PO HS 09/15/18 [History] Lisinopril [Zestril] 20 mg PO BID 09/15/18 [History] Metoprolol Tartrate [Lopressor] 50 mg PO BID 12/17/18 [History] metFORMIN HCL [Glucophage] 500 mg PO BID 12/17/18 [History] Baclofen [Lioresal] 20 mg PO BID 05/09/19 [History] Butalb/Acetaminophen/Caffeine [Fioricet 50-300-40 mg Capsule] 1 cap PO BID PRN 05/09/19 [History] DULoxetine HCL [Cymbalta] 60 mg PO DAILY 05/09/19 [History] HYDROcodone/APAP 10-325MG [[place] 10-325] 1 tab PO TID 05/09/19 [History] Meclizine [Antivert] 25 mg PO TID PRN #20 tab 05/16/19 [Rx] Gabapentin [Neurontin] 300 mg PO BID 07/09/19 [History] Follow up Appointment(s)/Referral(s): Jose Guadalupe Paige PAC [PHYSICIAN PHYSICAL SECURITY ENGINEER] - 2 Weeks Activity/Diet/Wound Care/Special Instructions: Orthopedic Discharge Instructions: 1. Do not remove arm splint 2. Keep splint clean and dry, keep covered while showering 3. Avoid excess use of the left upper extremity 4. Plan for follow-up at [facility] 2 weeks Discharge Disposition: HOME SELF-CARE
--- NOTE | 2019-07-15 12:47 | P.PN ---
Progress Note - Text Progress Note Date: 07/15/19 Was contacted by nurse ba after discharge order. Attempting to get patient out of bed resulted in drop in blood pressure and a vasovagal response. A second attempt was made about an hour later, blood pressure improved but vasovagal symptoms returned. Consult for internal medicine was placed, patient will not be discharged today. Will recheck patient in tomorrow.
[2019-07-15] MEDS: LACTATED RINGERS 1,000 ML IV SCH ×2 (14:04→23:25)
[2019-07-15 15:25] LABS: Calcium 9.1 mg/dL (8.4-10.2); Potassium 4.3 mmol/L (3.5-5.1)
[2019-07-15 15:32] LABS: Basophils % (A) 0 %; Eosinophils # (A) 0.1 k/uL (0-0.7); Eosinophils % (A) 1 %; HCT 41.7 % (39.0-53.0); HGB 13.6 gm/dL (13.0-17.5); Lymphocytes # (A) 2.6 k/uL (1.0-4.8); Lymphocytes % (A) 21 %; MCH 31.6 pg (25.0-35.0); MCHC 32.6 g/dL (31.0-37.0); MCV 97.2 fL (80.0-100.0); Mean Platelet Volume 8.2; Monocytes # (A) 0.8 k/uL (0-1.0); Monocytes % (A) 6 %; Neutrophils # (A) 8.9 k/uL (1.3-7.7); Neutrophils % (A) 70 %; Platelet Count 281 k/uL (150-450); RBC 4.29 m/uL (4.30-5.90); RDW 12.7 % (11.5-15.5); WBC 12.8 k/uL (3.8-10.6)
[2019-07-15] MEDS: HYDROmorphone 0.5 MG/0.5 ML SYRINGE IVP PRN (19:18)
[2019-07-15] MEDS: METOPROLOL TARTRATE 12.5 MG TAB PO SCH (20:25)
[2019-07-15] MEDS: DULoxetine HCL 30 MG CAPSULE.DR PO SCH (20:25)
[2019-07-15] MEDS: BUTALB/APAP/CAFF 50-325-40MG TAB PO PRN (20:31)
--- NOTE | 2019-07-15 22:47 | P.CONS ---
History of Present Illness - Reason for Consult Consult date: 07/15/19 Dizziness - Chief Complaint Status post fall and left wrist fracture - History of Present Illness Patient is a 69 old male with a known history of hypertension, hyperlipidemia, diabetes type 2 [id number], memory impairment, osteoarthritis, questionable history of atrial fibrillation, chronic headaches and history of chronic positional vertigo status post brain stem surgery for decompression and is on follow-up with his neurosurgeon at [facility] presents to ER status post fall and injury to his left wrist. Patient was seen in the outpatient setting by orthopedic surgery and did remind he would need surgical fixation of his left wrist fracture. Patient was found have comminuted displaced three-part intra-articular left distal radius fracture. Patient is status post ORIF of left distal radius fracture. Patient was seen by PT OT and also pain is controlled with medications. Patient is being discharged home today. While he was getting out of bed patient says that he felt very dizzy and weak. Patient says that it is different from his regular vertigo which he gets while he is in the bed and moving his head. Currently patient denied any dizziness while in the bed. Patients blood pressure found to be in the lower side with SBP 89 mm Hg. Orthostatics were negative. Patient was started back on his home blood pressure medications including metoprolol 50 mg twice a day and lisinopril 20 mg twice a day. Postoperatively patient is hypotensive and is also on IV narcotic pain medications for pain control. Patient is not tachycardic. Saturating at 96% on room air. Patient says that he had extensive workup including MRI of the brain and carotid duplex recently by his neurosurgeon few months ago. Patient is supposed to follow with his neurosurgery and was planning for brain stem surgery on the left side, previously had on the right side. Due to recent pandemic his appointment was canceled. Patient was previously suspected to have atrial fibrillation and was told to follow with cardiology for continuous monitoring. EKG showed sinus rhythm with PVCs. TSH within normal limits. Patient otherwise denied any complaints of chest pain or shortness of breath. No leg swelling. No nausea vomiting or abdominal pain. Does have history of chronic headaches but no change recently. Review of Systems Constitutional: Patient denies any fever or chills . No generalized weakness or weight loss. Abdomen: Patient denied nausea vomiting and diarrhea and abdominal pain. Cardiovascular: Patient denies any chest pain or short of breath no palpitations. Respiratory: patient denied any cough is from production. No shortness of breath Neurologic: Patient denied any numbness or tingling headache. Does have dizziness. No complaints of vertigo or tinnitus. Musculoskeletal: Patient denies any complaints of joint swelling or deformity. Skin: Negative Psychiatric: Negative Endocrine: No heat or cold intolerance. No recent weight gain. Genitourinary: No dysuria or hematuria. All other 14 point ROS negative except the above Past Medical History Past Medical History: Atrial Fibrillation, Cancer, Diabetes Mellitus, GERD/Reflux, Hyperlipidemia, Hypertension, Memory Impairment, Osteoarthritis (OA), Pneumonia Additional Past Medical History / Comment(s): FELL 07/09/19 FX LT RADIUS, FREQUENT FALLS-REASON UNKNOWN. 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 MDRO Source:: MRSA Past Surgical History: Back Surgery, Breast Surgery, Orthopedic Surgery Additional Past Surgical History / Comment(s): Bilateral mastectomy with right sided lymp node removal due to cancer, R knee cap removed, Back surgery for herniated disc., Brain stem surgery for decompression-for dizziness, right ankle ORIF, bilateral wrist fractures SX Past Anesthesia/Blood Transfusion Reactions: No Reported Reaction Past Psychological History: No Psychological Hx Reported Smoking Status: Former smoker Past Alcohol Use History: None Reported Additional Past Alcohol Use History / Comment(s): STARTED SMOKING AT AGE 18, SMOKE A PIPE GOES THRU A PACK OF PIPE TOBACCO/DAY quit smoking in 2005 Past Drug Use History: None Reported - Past Family History Father History Unknown: Yes Family Medical History: Congestive Heart Failure (CHF) Additional Family Medical History / Comment(s): at 68. Mother History Unknown: Yes Family Medical History: Hypertension Additional Family Medical History / Comment(s): Pulmonary hypertension. at 78. Medications and Allergies Home Medications Medication Instructions Recorded Confirmed Type Atorvastatin [Lipitor] 10 mg PO DAILY 10/08/15 07/14/19 History DULoxetine HCL [Cymbalta] 30 mg PO HS 09/15/18 07/14/19 History Lisinopril [Zestril] 20 mg PO BID 09/15/18 07/14/19 History Metoprolol Tartrate [Lopressor] 50 mg PO BID 12/17/18 07/14/19 History metFORMIN HCL [Glucophage] 500 mg PO BID 12/17/18 07/14/19 History Baclofen [Lioresal] 20 mg PO BID 05/09/19 07/14/19 History Butalb/Acetaminophen/Caffeine 1 cap PO BID PRN 05/09/19 07/14/19 History [Fioricet 50-300-40 mg Capsule] DULoxetine HCL [Cymbalta] 60 mg PO DAILY 05/09/19 07/14/19 History HYDROcodone/APAP 10-325MG [[place] 1 tab PO TID 05/09/19 07/14/19 History 10-325] Meclizine [Antivert] 25 mg PO TID PRN #20 tab 05/16/19 07/14/19 Rx Gabapentin [Neurontin] 300 mg PO BID 07/09/19 07/14/19 History Allergies Allergy/AdvReac Type Severity Reaction Status Date / Time cephalexin monohydrate Allergy Anaphylaxis Verified 07/14/19 06:49 [From Keflex] Cephalosporins Allergy Unknown Verified 07/14/19 06:49 Penicillins Allergy Anaphylaxis Verified 07/14/19 06:49 Physical Exam Vitals: Vital Signs Temp Pulse Resp BP BP Pulse Ox 07/15/19 12:58 76 18 101/58 110/67 96 07/15/19 11:26 98.5 F 58 L 17 89/47 93 L 07/15/19 05:00 98 F 68 18 113/68 93 L 07/14/19 21:43 88 107/70 07/14/19 21:17 97.6 F 76 18 98/66 94 L Intake and Output 07/14/19 07/15/19 07/15/19 22:59 06:59 14:59 Intake Total 40 640 Output Total 500 700 Balance -460 -60 Intake: IV 40 160 Lactated Ringers 1,000 ml 40 160 @ 20 mls/hr IV .Q24H [facility] Rx#:[id number] Oral 480 Output: Urine 500 700 Other: Voiding Method Urinal PHYSICAL EXAMINATION: Patient is lying in the bed comfortably, no acute distress, awake alert and oriented.. HEENT: Normocephalic. Neck is supple. Pupils reactive. Nostrils clear. Oral cavity is moist. Ears reveal no drainage. Neck reveals no JVD, carotid bruits, or thyromegaly. CHEST EXAMINATION: Trachea is central. Symmetrical expansion. Bibasilar diminished air entry. Lung bishop clear to auscultation and percussion. CARDIAC: Normal S1, S2 with no gallops. No murmurs . regular rhythm. ABDOMEN: Soft. Bowel sounds normal. No organomegaly. No abdominal bruits. Extremities: reveal no edema. No clubbing or cyanosis Neurologically awake, alert, oriented x3 with well-coordinated movements. No focal deficits noted Skin: No rash or skin lesions. Psychiatric: Coperative. Nonsuicidal Musculoskeletal: No joint swelling or deformity. Normal range of motion. Left hand cast in place. . Results CBC & Chem 7: 07/15/19 14:53 07/15/19 14:53 Labs: Abnormal Lab Results - Last 24 Hours (Table) 07/14/19 Range/Units 21:16 POC Glucose (mg/dL) 186 H (75-99) mg/dL Assessment and Plan Assessment: Dizziness likely due to hypotension from antihypertensives and narcotic pain medications. Rule out arrhythmia. Left distal radius fracture status post ORIF Recurrent falls due to history of chronic vertigo and dizziness. History of brain stem surgery for decompression due to chronic dizziness. On follow-up with neurosurgeon at [facility]. Hypertension. currently hypotensive Hyperlipidemia Diabetes type 2 [id number] Questionable history of atrial fibrillation. Not seen by cardiology, was recommended to follow-up. EKG showed NSR Vertigo, Chronic headaches next line history of breast cancer status post bilateral mastectomy with right-sided lymph node removal. History of back surgery due to herniated discs Previous history of smoking DVT prophylaxis. Heparin subcu. Plan: Patient will be placed on telemetry monitoring. Reduce the dose of blood pressure medications and continue with telemetry monitoring. EKG showed sinus rhythm. TSH within normal limits. Limit IV narcotic pain medications. Continue with home hypoglycemic agents since and insulin sliding scale as needed. Further recommendations based on the clinical course. Thank you for your consult. Time with Patient: Greater than 30
[2019-07-15] MEDS: HEPARIN SODIUM,PORCINE 5,000 UNIT/ML 1 ML VIAL SQ SCH (23:23)
[2019-07-15] MEDS: SODIUM CHLORIDE 0.9% 1,000 ML IV SCH (23:23)
[2019-07-16] MEDS: HYDROmorphone 0.5 MG/0.5 ML SYRINGE IVP PRN (00:26)
[2019-07-16] MEDS: METOPROLOL TARTRATE 12.5 MG TAB PO SCH ×2 (08:09→21:22)
[2019-07-16] MEDS: ATORVASTATIN 10 MG TAB PO SCH (08:09)
[2019-07-16] MEDS: metFORMIN 500 MG TAB PO SCH ×2 (08:09→21:22)
[2019-07-16] MEDS: GABAPENTIN 300 MG CAP PO SCH ×2 (08:09→21:22)
[2019-07-16] MEDS: HYDROcodone/APAP 10-325MG 1 EACH TAB PO SCH ×3 (08:09→21:22)
[2019-07-16] MEDS: HEPARIN SODIUM,PORCINE 5,000 UNIT/ML 1 ML VIAL SQ SCH ×3 (08:09→23:18)
[2019-07-16] MEDS: BACLOFEN 10 MG TAB PO SCH ×2 (08:09→21:22)
[2019-07-16] MEDS: HYDROmorphone 1 MG/ML 1 ML SYRINGE IVP PRN ×2 (08:37→08:41)
--- NOTE | 2019-07-16 11:42 | P.PN ---
Subjective Progress Note Date: 07/16/19 Principal diagnosis: Status post ORIF left distal radius fracture Patient was evaluated today at bedside. He is resting comfortably. Patient was kept overnight due to 2 separate episodes of hypotension and vasovagal response upon standing. Internal medicine was consulted, they've adjusted his blood pressure medication. Physical therapy did attempt to get the patient up today, he had a very similar episode. He did receive to IV pain medication dose as this morning, this is since then been discontinued. He does note some numbness involving the thumb and index finger at this time. Objective - Vital Signs Vital signs: Vital Signs Temp 97.5 F L 07/16/19 05:00 Pulse 54 L 07/16/19 05:00 Resp 18 07/16/19 05:00 BP 103/59 07/16/19 11:07 Pulse Ox 99 07/16/19 05:00 Intake & Output 07/15/19 07/16/19 07/16/19 18:59 06:59 18:59 Intake Total 3340 Output Total 1400 450 Balance -1400 2890 Intake: Intake, IV Titration 600 Amount Sodium Chloride 0.9% 1, 600 000 ml @ 75 mls/hr IV . [id number] [facility] Rx#:[id number] Oral 2740 Output: Urine 1400 450 Other: Voiding Method Urinal Urinal Urinal # Voids 2 - Exam Left upper extremity: Postop splint is in good position and condition. Minimal soft tissue swelling present in the fingers. Sensation to light touch proximal and distal to the splinter intact, there is numbness present in the thumb and index finger. Skin is warm to touch, capillary refills less than 3 seconds. - Labs CBC & Chem 7: 07/15/19 14:53 07/15/19 14:53 Labs: Abnormal Lab Results - Last 24 Hours (Table) 07/15/19 07/15/19 Range/Units 14:53 14:53 WBC 12.8 H (3.8-10.6) k/uL RBC 4.29 L (4.30-5.90) m/uL Neutrophils # 8.9 H (1.3-7.7) k/uL BUN 25 H (9-20) mg/dL Glucose 129 H (74-99) mg/dL Assessment and Plan Plan: Assessment: Status post ORIF left distal radius fracture Chronic vertigo Plan: Discontinued IV pain medication at this time, we'll reassess symptoms later on this afternoon when attempting to ambulate Pain control, continue Xarelto Medication as needed Numbness involving the thumb and index fingers likely related to swelling caused from surgery, we'll continue to monitor Other medical cyst recommendations Further recommendations to follow Time with Patient: Less than 30
[2019-07-16] MEDS: SODIUM CHLORIDE 0.9% 1,000 ML IV SCH (13:04)
[2019-07-16] MEDS: MECLIZINE 25 MG TAB PO SCH ×3 (13:04→21:22)
--- NOTE | 2019-07-16 13:17 | P.PN ---
Subjective Progress Note Date: 07/16/19 Principal diagnosis: Patient is a 69 old male with a known history of hypertension, hyperlipidemia, diabetes type 2 nil-faumsez-owqbmtvei, memory impairment, osteoarthritis, questi onable history of atrial fibrillation, chronic headaches and history of chronic positional vertigo status post brain stem surgery for decompression and is on follow-up with his neurosurgeon at [facility] presents to ER status post fall and injury to his left wrist. Patient was seen in the outpatient setting by orthopedic surgery and did remind he would need surgical fixation of his left wrist fracture. Patient was found have comminuted displaced three-part intra- articular left distal radius fracture. Patient is status post ORIF of left distal radius fracture. Patient was seen by PT OT and also pain is controlled with medications. Patient is being discharged home today. While he was getting out of bed patient says that he felt very dizzy and weak. Patient says that it is different from his regular vertigo which he gets while he is in the bed and moving his head. Currently patient denied any dizziness while in the bed. Patients blood pressure found to be in the lower side with SBP 89 mm Hg. Orthostatics were negative. Patient was started back on his home blood pressure medications including metoprolol 50 mg twice a day and lisinopril 20 mg twice a day. Postoperatively patient is hypotensive and is also on IV narcotic pain medications for pain control. Patient is not tachycardic. Saturating at 96% on room air. Patient says that he had extensive workup including MRI of the brain and carotid duplex recently by his neurosurgeon few months ago. Patient is supposed to follow with his neurosurgery and was planning for brain stem surgery on the left side, previously had on the right side. Due to recent pandemic his appointment was canceled. Patient was previously suspected to have atrial fibrillation and was told to follow with cardiology for continuous monitoring. EKG showed sinus rhythm with PVCs. TSH within normal limits. Patient otherwise denied any complaints of chest pain or shortness of breath. No leg swelling. No nausea vomiting or abdominal pain. Does have history of chronic headaches but no change recently. 07/16/2019 Patient is seen and evaluated in follow-up today and continues to be extremely dizzy and states this is more so than his usual dizziness. Patient has been following in the outpatient setting with a neurosurgeon and is supposed to be following up for an additional brain stem surgery on the left side as he had recently undergone one on the right side and has been unable to follow-up. Patient has continued dizziness and more frequent falls and is recently admitted here under orthopedic surgery for status post ORIF of the left distal radius fracture. Patient continues to have low blood pressure and his orthostatic and blood pressure medications are on hold. Patient does have a history of taking metoprolol which we have decreased. Patient is on telemetry showing normal sinus rhythm at this time. Patient was getting up with physical therapy and experienced a possible syncopal episode and per nursing staff appeared to be almost postictal and did not recall the event at the bedside. Cardiology and neurology will be consulted and is pending at this time. Currently no reports of chest pain, shortness of breath, or palpitations. Patient is afebrile. No reports of nausea or vomiting and patient is tolerating diet. Will continue to follow along closely. Objective - Vital Signs Vital signs: Vital Signs Temp 98.4 F 07/16/19 11:39 Pulse 67 07/16/19 11:39 Resp 17 07/16/19 11:39 BP 103/59 07/16/19 11:07 Pulse Ox 95 07/16/19 11:39 Intake & Output 07/15/19 07/16/19 07/16/19 18:59 06:59 18:59 Intake Total 3340 Output Total 1400 450 Balance -1400 2890 Intake: Intake, IV Titration 600 Amount Sodium Chloride 0.9% 1, 600 000 ml @ 75 mls/hr IV . [id number] [facility] Rx#:[id number] Oral 2740 Output: Urine 1400 450 Other: Voiding Method Urinal Urinal Urinal # Voids 2 - Exam Patient is sitting up in the bed comfortably, no acute distress, awake alert and oriented.. Well-developed, well-nourished, obese HEENT: Normocephalic. Neck is supple. Pupils reactive. Nostrils clear. Oral cavity is moist. Ears reveal no drainage. Neck reveals no JVD, carotid bruits, or thyromegaly. CHEST EXAMINATION: Trachea is central. Symmetrical expansion. Bibasilar diminished air entry. Lung bishop clear to auscultation and percussion. CARDIAC: Normal S1, S2 with no gallops. No murmurs . regular rhythm. ABDOMEN: Soft. Bowel sounds normal. No organomegaly. No abdominal bruits. Extremities: reveal no edema. No clubbing or cyanosis Neurologically awake, alert, oriented x3 with well-coordinated movements. No focal deficits noted Skin: No rash or skin lesions. Psychiatric: Cooperative. Non-suicidal Musculoskeletal: No joint swelling or deformity. Normal range of motion. Left hand cast in place with some mild swelling noted of the 5 digits with full sensation and mobility. - Labs CBC & Chem 7: 07/15/19 14:53 07/15/19 14:53 Labs: Abnormal Lab Results - Last 24 Hours (Table) 07/15/19 07/15/19 Range/Units 14:53 14:53 WBC 12.8 H (3.8-10.6) k/uL RBC 4.29 L (4.30-5.90) m/uL Neutrophils # 8.9 H (1.3-7.7) k/uL BUN 25 H (9-20) mg/dL Glucose 129 H (74-99) mg/dL Assessment and Plan Assessment: Dizziness likely due to hypotension from antihypertensives and narcotic pain medications. Rule out arrhythmia. Cardiology and neurology have been consulted and pending at this time. Possible syncopal episode. Neurology and cardiology consulted and pending Left distal radius fracture status post ORIF Recurrent falls due to history of chronic vertigo and dizziness. History of brain stem surgery for decompression due to chronic dizziness. On follow-up with neurosurgeon at [facility]. Hypertension. currently hypotensive, orthostatic Hyperlipidemia Diabetes type 2 [id number]-rnxpfehga Questionable history of atrial fibrillation. Not seen by cardiology, was recommended to follow-up. EKG showed NSR. Cardiology consulted Vertigo Chronic headaches history of breast cancer status post bilateral mastectomy with right-sided lymph node removal. History of back surgery due to herniated discs Previous history of smoking DVT prophylaxis. Heparin subcu. Plan: Patient will be placed on telemetry monitoring. Blood pressure medications have been discontinued. Patient remains on metoprolol at 12.5 mg twice daily. Cardiology consulted and pending. An echo was ordered and is currently pending as well. EKG showed sinus rhythm. TSH within normal limits. Limit IV narcotic pain medications. Continue with home hypoglycemic agents since and insulin sliding scale as needed. Neurology consulted as well and is pending at this time Further recommendations based on the clinical course. Thank you for this consult and will continue to follow along closely with you.
--- NOTE | 2019-07-16 14:41 | P.CNNES ---
History of Present Illness Consult date: 07/16/19 Reason for Consult: Dizziness History of Present Illness: This is a new neurology consult requested for further advice and recommendations for a 69-year-old male who was admitted on July 12 for open reduction and internal fixation for a comminuted displaced 3 part intra-articular distal radial fracture on the left. The patient was planned for discharge home today however upon waking this morning and attempting to get out of bed he felt severe dizziness which appeared to occur in the context of hypotension. This patient does suffer from a condition called benign positional vertigo which he has undergone neurosurgical decompression for at [facility]. The decompression surgery for this positional vertigo has worked quite well for him and has relatively stabilized that situation. This dizziness he describes today was quite different. On history taking for this patient and during examination several times he fell asleep. This patient is morbidly obese and is on chronic opioid therapy which places him at increased risk for complex sleep apnea primarily central sleep apnea. He has never been formally evaluated for obstructive sleep apnea nor central sleep apnea. I suspect he has this condition probably quite severe and is exacerbating this dizziness. It is interesting to note that when he had the event his pulse rate dropped down to 58 is long with his pulse oximeter reading. He has been running low diastolic blood pressures throughout the day ranging from the lowest at 47 to the highest only up to 70. He had one blood pressure of 89/47 at 11:26 AM associated with a decreased pulse rate of 58 and decreased pulse oximetry. Past Medical History Past Medical History: Atrial Fibrillation, Cancer, Diabetes Mellitus, GERD/Reflux, Hyperlipidemia, Hypertension, Memory Impairment, Osteoarthritis (OA), Pneumonia Additional Past Medical History / Comment(s): FELL 07/09/19 FX LT RADIUS, FREQUENT FALLS-REASON UNKNOWN. 03-10-16 FELL/FX RT FIBULA, VERTIGO , chronic headaches, BREAST CANCER History of Any Multi-Drug Resistant Organisms: MRSA Date of last positivie culture/infection: 02/2017 MDRO Source:: MRSA Past Surgical History: Back Surgery, Breast Surgery, Orthopedic Surgery Additional Past Surgical History / Comment(s): Bilateral mastectomy with right sided lymp node removal due to cancer, R knee cap removed, Back surgery for herniated disc., Brain stem surgery for decompression-for dizziness, right ankle ORIF, bilateral wrist fractures SX Past Anesthesia/Blood Transfusion Reactions: No Reported Reaction Past Psychological History: No Psychological Hx Reported Smoking Status: Former smoker Past Alcohol Use History: None Reported Additional Past Alcohol Use History / Comment(s): STARTED SMOKING AT AGE 18, SMOKE A PIPE GOES THRU A PACK OF PIPE TOBACCO/DAY quit smoking in 2005 Past Drug Use History: None Reported - Past Family History Father History Unknown: Yes Family Medical History: Congestive Heart Failure (CHF) Additional Family Medical History / Comment(s): at 68. Mother History Unknown: Yes Family Medical History: Hypertension Additional Family Medical History / Comment(s): Pulmonary hypertension. at 78. Medications and Allergies Home Medications Medication Instructions Recorded Confirmed Type Atorvastatin [Lipitor] 10 mg PO DAILY 10/08/15 07/14/19 History DULoxetine HCL [Cymbalta] 30 mg PO HS 09/15/18 07/14/19 History Lisinopril [Zestril] 20 mg PO BID 09/15/18 07/14/19 History Metoprolol Tartrate [Lopressor] 50 mg PO BID 12/17/18 07/14/19 History metFORMIN HCL [Glucophage] 500 mg PO BID 12/17/18 07/14/19 History Baclofen [Lioresal] 20 mg PO BID 05/09/19 07/14/19 History Butalb/Acetaminophen/Caffeine 1 cap PO BID PRN 05/09/19 07/14/19 History [Fioricet 50-300-40 mg Capsule] DULoxetine HCL [Cymbalta] 60 mg PO DAILY 05/09/19 07/14/19 History HYDROcodone/APAP 10-325MG [Bascom 1 tab PO TID 05/09/19 07/14/19 History 10-325] Meclizine [Antivert] 25 mg PO TID PRN #20 tab 05/16/19 07/14/19 Rx Gabapentin [Neurontin] 300 mg PO BID 07/09/19 07/14/19 History Allergies Allergy/AdvReac Type Severity Reaction Status Date / Time cephalexin monohydrate Allergy Anaphylaxis Verified 07/14/19 06:49 [From Keflex] Cephalosporins Allergy Unknown Verified 07/14/19 06:49 Penicillins Allergy Anaphylaxis Verified 07/14/19 06:49 Physical Examination - Vital Signs Vital Signs: Vital Signs Temp Pulse Pulse Resp BP BP BP 07/16/19 11:39 98.4 F 67 17 07/16/19 11:07 103/59 121/78 107/57 07/16/19 05:00 97.5 F L 54 L 18 128/86 07/15/19 23:30 16 07/15/19 21:00 97.9 F 64 16 120/61 07/15/19 15:23 76 85 18 Pulse Ox 07/16/19 11:39 95 07/16/19 11:07 07/16/19 05:00 99 07/15/19 23:30 07/15/19 21:00 93 L 07/15/19 15:23 Intake and Output 07/15/19 07/16/19 07/16/19 22:59 06:59 14:59 Intake Total 2380 960 600 Output Total 700 450 Balance 1680 510 600 Intake: Intake, IV Titration 600 600 Amount Sodium Chloride 0.9% 1, 600 600 000 ml @ 75 mls/hr IV . [id number] YARIEL Rx#:[id number] Oral 2380 360 Output: Urine 700 450 Other: Voiding Method Urinal Urinal Urinal # Voids 2 General physical exam Appearance: Morbidly obese no acute distress. Patient is quite lethargic and sleepy. HEENT: Clear sclera. Oropharynx shows [place] Wiggins grade 3. Large broad-based tongue. Large neck circumference greater than 17 inches. Pulses: Radial and pedal pulses are equal and symmetric. Only the radial pulse on the right was examined. Strategies: No edema noted in the feet or right hand. Skin: No rash petechia or bruising noted. Neurologic exam Mental status: Patient is extremely lethargic and difficulty maintaining wakefulness. Twice during the exam and history taking he fell asleep. At one point he looks somewhat confused and was looking around the room. I asked him to see seeing things or hearing things. He did report that often as he is falling off to sleep awake and abruptly hearing someone call his name. Pupils: 1 mm equally symmetric and reactive to light. Cranial nerve examination: Patient tracks well. No nystagmus noted on vertical horizontal gaze. V1 through V3 sensory is intact bilaterally. No facial asymmetry noted. Cranial nerve VIII is intact by clinical observation. Palate elevates symmetrically. Shoulder shrug symmetric. Tongue is midline without fasciculations deviation. Next Motor examination patient has full normal 5 over 5 strength in the right upper and lower extremity. Left upper extremity is not examinable due to postop surgery. The left lower extremity shows 5 out of 5 strength. Pronator drift is negative on the right. No fasciculations or tremor noted. Deep tendon reflexes are absent. Coordination testing is normal for finger to nose testing on the right hand with eyes open and eyes closed. No dysmetria noted. Next Sensory examination grossly intact to light touch in the upper right extremity and bilateral lower extremities. Gait examination is deferred. Results - Laboratory Findings CBC and BMP: 07/15/19 14:53 07/15/19 14:53 Abnormal Lab Findings: Abnormal Labs 07/14/19 07/14/19 07/15/19 06:48 21:16 14:53 WBC 12.8 H RBC 4.29 L Neutrophils # 8.9 H BUN Glucose POC Glucose (mg/dL) 129 H 186 H 07/15/19 14:53 WBC RBC Neutrophils # BUN 25 H Glucose 129 H POC Glucose (mg/dL) - Diagnostic Findings EKG: report reviewed Chest x-ray: report reviewed Assessment and Plan Assessment: This is a 69-year-old morbidly obese male on chronic opioid therapy who was admitted for a open reduction internal fixation for left wrist fracture. This patient experienced a episode of dizziness this morning different from his history of positional vertigo (he status post neurosurgical decompression). The episode he had this morning appears to be related to hypotension. I agree with master glazier assessment in addition I believe this patient is significantly increased risk for central sleep apnea while on chronic opioid therapy. In addition due to his morbid obesity and crowded airway he is an increased risk for obstructive sleep apnea. Sleep apnea is the third bleeding risk factor for stroke independent of diabetes hypertension and dyslipidemia. This patient also has significant risk factors for stroke with history of atrial fib hypertension as well as diabetes. I'm very concerned have this patient twice fell asleep during my visit with him. He admits that he falls asleep quite frequently during the day. He lives alone so there is no witness of any known apnea or snoring. He does however report that he does have excessive daytime sleepiness which further leads to suspicion for sleep disordered breathing. Summary 1. Episode of dizziness in the setting of hypotension. 2. Suspect both obstructive and central sleep apnea in the setting of chronic opioid therapy, morbid obesity, history of excessive daytime sleepiness as well as witnessing this on examination today. 3. Multiple stroke risk factors: Diabetes, hypertension, atrial fibrillation and high suspicion for obstructive sleep apnea. Plan: Recommendations: 1. Hold discharge today. If possible the patient should undergo an MRI of the brain to rule out possible stroke. If the surgical hardware is not compatible would recommend at least a computed tomography scan of the head noncontrast. This patient does have significant stroke risk factors. 2. Consider reduction in frequency of Bascom. This patient does admit to taking more than prescribed when he is at home, suspect he may take anywhere 1-2 tablets up to 4-5 times a day. 3. This patient needs to be arranged as soon as possible for an in lab polysomnogram or at least at a minimum a home sleep test. I suspect this patient will require a bilevel pressure device with ST mode for central sleep apnea. One could also consider an apparent trial on BiPAP during his inpatient stay. Respiratory therapy to begin a titration with and EPAP of 4 IPAP of 8 and titrate to comfort level. 4. Consider pulmonary consult as well for obesity hypoventilation syndrome. ( aka Pickwickian syndrome ) This patient's prognosis remains guarded. Further recommendations will be made as this case evolves. Thank you for this consultation. I'll be following the patient closely during his admission. Ami Keith MD Board Certified in Neurology and Sleep Medicine
--- NOTE | 2019-07-16 19:13 | CT ---
EXAMINATION TYPE: CT brain wo con DATE OF EXAM: 07/16/2019 COMPARISON: 07/09/2019 HISTORY: Altered mental status. CT DLP: 1093.[address] of the brain was performed. The ventricles, basal cisterns and sulci overlying the cerebral convexities demonstrate mild enlargem ent. There is no evidence for intracranial hemorrhage or sulcal effacement. There is decreased attenuation about the periventricular white matter and deep white matter of both c erebral hemispheres, compatible with chronic small vessel ischemia. Differential diagnosis does inclu de demyelination. No mass effects are seen.No midline shift. Right occipital craniotomy change. If symptoms persist consider MRI. IMPRESSION: 1. Age related atrophic and chronic small vessel ischemic change without acute intracranial process s een at this time.
[2019-07-16] MEDS: DULoxetine HCL 30 MG CAPSULE.DR PO SCH (21:22)
[2019-07-16 23:37] LABS: Glucose,Whole Blood 148 mg/dL (75-99)
[2019-07-17] MEDS: SODIUM CHLORIDE 0.9% 1,000 ML IV SCH ×3 (04:40→17:56)
[2019-07-17] MEDS: BACLOFEN 10 MG TAB PO SCH ×2 (08:05→20:51)
[2019-07-17] MEDS: METOPROLOL TARTRATE 12.5 MG TAB PO SCH ×2 (08:05→20:51)
[2019-07-17] MEDS: DULoxetine HCL 60 MG CAPSULE.DR PO SCH (08:05)
[2019-07-17] MEDS: MECLIZINE 25 MG TAB PO SCH ×3 (08:06→22:13)
[2019-07-17] MEDS: metFORMIN 500 MG TAB PO SCH ×2 (08:06→20:51)
[2019-07-17] MEDS: HEPARIN SODIUM,PORCINE 5,000 UNIT/ML 1 ML VIAL SQ SCH ×2 (08:06→16:28)
[2019-07-17] MEDS: HYDROcodone/APAP 10-325MG 1 EACH TAB PO SCH ×3 (08:06→22:13)
[2019-07-17] MEDS: ATORVASTATIN 10 MG TAB PO SCH (08:06)
[2019-07-17] MEDS: GABAPENTIN 300 MG CAP PO SCH ×2 (08:06→20:51)
--- NOTE | 2019-07-17 11:03 | P.PN ---
Subjective Progress Note Date: 07/17/19 Principal diagnosis: Status post ORIF left distal radius fracture Patient was evaluated today at bedside. He is resting comfortably. Patient states that dizziness is improved today. Patient was evaluated by neurology, there is concern for sleep apnea, a consult was placed for pulmonology. discussing the case with the nurse today, there is still concern of his limited physical activity when walking and needing assistance. Objective - Vital Signs Vital signs: Vital Signs Temp 97.8 F 07/17/19 05:00 Pulse 64 07/17/19 05:00 Resp 18 07/17/19 05:00 BP 127/81 07/17/19 05:00 Pulse Ox 95 07/17/19 05:00 Intake & Output 07/16/19 07/17/19 07/17/19 18:59 06:59 18:59 Intake Total 600 590 Output Total 900 Balance -300 590 Intake: Intake, IV Titration 600 Amount Sodium Chloride 0.9% 1, 600 000 ml @ 75 mls/hr IV . [id number] YARIEL Rx#:[id number] Oral 590 Output: Urine 900 Other: Voiding Method Urinal Urinal Urinal # Voids 1 3 - Exam Left upper extremity: Postop splint is in good position and condition. Minimal soft tissue swelling present in the fingers. Sensation to light touch proximal and distal to the splinter intact, there is numbness present in the thumb and index finger. Skin is warm to touch, capillary refills less than 3 seconds. - Labs CBC & Chem 7: 07/15/19 14:53 07/15/19 14:53 Labs: Abnormal Lab Results - Last 24 Hours (Table) 07/16/19 Range/Units 23:22 POC Glucose (mg/dL) 148 H (75-99) mg/dL Assessment and Plan Plan: Assessment: Status post ORIF left distal radius fracture Chronic vertigo Plan: Pain control, continue oral medication Await pulmonology recommendations We'll discuss with case management/social work possibility of rehab placement Hopeful discharge today Time with Patient: Less than 30
--- NOTE | 2019-07-17 11:22 | ECHOF ---
Referral Reason:near syncope MEASUREMENTS -------- HEIGHT: 193.0 cm WEIGHT: 142.0 kg BP: 107/57 RVIDd: 4.0 cm (< 3.3) IVSd: 1.7 cm (0.6 - 1.1) LVIDd: 4.3 cm (3.9 - 5.3) LVPWd: 1.5 cm (0.6 - 1.1) IVSs: 2.8 cm LVIDs: 2.6 cm LVPWs: 2.1 cm Ao Diam: 3.8 cm (2.0 - 3.7) AV Cusp: 2.6 cm (1.5 - 2.6) MV EXCURSION: 18.547 mm (> 18.000) MV EF SLOPE: 52 mm/s (70 - 150) EPSS: 0.8 cm RAP: 5.00 mmHg RVSP: 14.10 mmHg FINDINGS -------- Sinus rhythm. This was a technically difficult study with suboptimal views. Morbid Obesity Patient not able to turn on his left due to a broken left arm . There is moderate concentric left ventricular hypertrophy. Overall left ventricular systolic functi on is normal with, an EF between 55 - 60 %. The right ventricle is moderately enlarged. The left atrium was not well visualized. The right atrium was not well visualized. xx ml of Lumason was utilized for enhancement of images. Interatrial and interventricular septum intact. The aortic valve was not well visualized. There is mild aortic valve sclerosis. The mitral valve was not well visualized. Mild tricuspid regurgitation present. There is no evidence of pulmonary hypertension. The right v entricular systolic pressure, as measured by Doppler, is 14.10mmHg. There is no pulmonic regurgitation present. The aortic root size is normal. There is no pericardial effusion. CONCLUSIONS -------- 1. Sinus rhythm. 2. This was a technically difficult study with suboptimal views. 3. Morbid Obesity 4. Patient not able to turn on his left due to a broken left arm . 5. There is moderate concentric left ventricular hypertrophy. 6. Overall left ventricular systolic function is normal with, an EF between 55 - 60 %. 7. The right ventricle is moderately enlarged. 8. The left atrium was not well visualized. 9. The right atrium was not well visualized. 10. xx ml of Lumason was utilized for enhancement of images. 11. Interatrial and interventricular septum intact. 12. The aortic valve was not well visualized. 13. There is mild aortic valve sclerosis. 14. The mitral valve was not well visualized. 15. Mild tricuspid regurgitation present. 16. There is no evidence of pulmonary hypertension. 17. The right ventricular systolic pressure, as measured by Doppler, is 14.10mmHg. 18. There is no pulmonic regurgitation present. 19. The aortic root size is normal. 20. There is no pericardial effusion. ASSOCIATE PROFESSOR OF [employer] MEDIA: Delfina Sweet RDCS
--- NOTE | 2019-07-17 12:21 | P.CRDCN ---
History of Present Illness History of present illness: HISTORY OF PRESENTING ILLNESS This is a pleasant 69-year-old male past medical history significant for diabetes mellitus, hypertension, dyslipidemia, vertigo s/p brain stem corrective surgery 2018, breast cancer s/p mastectomy and irregular heartbeat. He does not have a-fib as a diagnosis but states he has always been told his heart rate is irregular. He has been advised in the past to follow with a manager multimedia for outpatient heart monitoring however has never done that. He is currently in the hospital secondary to left radial fracture secondary to fall. He states he had an episode of vertigo causing his fall. He underwent open reduction internal fixation of the left radial fracture per Dr. Andersen on July 13. We have been asked to see him in consultation secondary to a near syncopal spell that was witnessed by the nurse this morning. He was undergoing evaluation by physical therapy and upon changing positions he became acutely dizzy, light headed and momentarily was incoherent. No LOC, no syncope or fall. He was assisted to a seated position and observed further. There were no orthostatic changes noted on vital sign assessment. Telemetry was in place and reviewed. There were no changes in his rhythm throughout this event. He denies feeling chest pain, shortness of breath or palpitations. He does feel palpitations at times unrelated to this event. He had a similar episode yesterday while working with physical therapy as well. He states when he unde rwent surgery on his brain stem in 2018 he was told by his neurosurgeon that he would likely need a repeat surgery in a few years. EKG reveals sinus mechanism with PAC's. No acute ischemic changes. Laboratory data reviewed, WBC 12.8, hemoglobin 13.6, platelets 281, d-dimer 0.45, sodium 137, potassium 4.3, creatinine 1.11, TSH 1.06. Current daily cardiac medications include atorvastatin 10 mg daily, lisinopril 20 mg twice a day and Lopressor 50 mg twice a day. Most recent echocardiogram obtained in 2018 reveals preserved LV systolic function with ejection fraction 55-60%. Most recent stress test in 2016 was a Lexiscan stress test was negative for reversible cardiac ischemia. REVIEW OF SYSTEMS At the time of my exam: CONSTITUTIONAL: Denies fever or chills. CARDIOVASCULAR: Denies chest pain, shortness of breath, orthopnea, PND or palpitations. RESPIRATORY: Denies cough. GASTROINTESTINAL: Denies abdominal pain, diarrhea, constipation, nausea or vomiting. MUSCULOSKELETAL: Complains of pain to the left arm. NEUROLOGIC: Denies numbness, tingling or weakness. ENDOCRINE: Denies fatigue, weight change, polydipsia or polyurina. GENITOURINARY: Denies burning, hematuria or urgency with micturation. HEMATOLOGIC: Denies history of anemia or bleeding. PHYSICAL EXAMINATION Blood pressure 107/57 heart rate 67 afebrile and maintaining oxygen saturation on room air. CONSTITUTIONAL: No apparent distress. Obese. HEENT: Head is normocephalic. Pupils are equal, round. Sclerae anicteric. Mucous membranes of the mouth are moist. No JVD. No carotid bruit. CHEST EXAMINATION: Lungs are clear to auscultation. No chest wall tenderness is noted on palpation or with deep breathing. HEART EXAMINATION: Irregular rate and rhythm. S1, S2 heard. No murmurs, gallops or rub. ABDOMEN: Soft, nontender. Positive bowel sounds. EXTREMITIES: 2+ peripheral pulses, no lower extremity edema and no calf ten derness. Left upper extremity sling and caste in place. NEUROLOGIC EXAMINATION: Patient is awake, alert and oriented x3. ASSESSMENT Dizziness suggestive of vertigo with history of vertigo, per the patient his symptoms feel exactly similar to how he has felt in the past with vertigo Near syncope, no evidence of melita or tachy-arrhythmia on telemetry and no orthostatic changes Vertigo Fall Left radial fracture secondary to fall and vertigo Hypertension Dyslipidemia Diabetes mellitus Obesity, BMI 38 PLAN Symptoms likely related to vertigo. Currently he has antivert prescribed PRN, we will give that scheduled and see if his symptoms improve. Obtain 2D echocardiogram and doppler study to assess cardiac structure and function. Ongoing telemetry monitoring. Thank you kindly for this consultation. Nurse Practitioner note has been reviewed, I agree with a documented findings and plan of care. Patient was seen and examined. Past Medical History Past Medical History: Atrial Fibrillation, Cancer, Diabetes Mellitus, GERD/Reflux, Hyperlipidemia, Hypertension, Memory Impairment, Osteoarthritis (OA), Pneumonia Additional Past Medical History / Comment(s): FELL 07/09/19 FX LT RADIUS, FREQUENT FALLS-REASON UNKNOWN. 03-10-16 FELL/FX RT FIBULA, VERTIGO , chronic headaches, BREAST CANCER History of Any Multi-Drug Resistant Organisms: MRSA Date of last positivie culture/infection: 02/2017 MDRO Source:: MRSA Past Surgical History: Back Surgery, Breast Surgery, Orthopedic Surgery Additional Past Surgical History / Comment(s): Bilateral mastectomy with right sided lymp node removal due to cancer, R knee cap removed, Back surgery for herniated disc., Brain stem surgery for decompression-for dizziness, right ankle ORIF, bilateral wrist fractures SX Past Anesthesia/Blood Transfusion Reactions: No Reported Reaction Past Psychological History: No Psychological Hx Reported Smoking Status: Former smoker Past Alcohol Use History: None Reported Additional Past Alcohol Use History / Comment(s): STARTED SMOKING AT AGE 18, SMOKE A PIPE GOES THRU A PACK OF PIPE TOBACCO/DAY quit smoking in 2005 Past Drug Use History: None Reported - Past Family History Father History Unknown: Yes Family Medical History: Congestive Heart Failure (CHF) Additional Family Medical History / Comment(s): at 68. Mother History Unknown: Yes Family Medical History: Hypertension Additional Family Medical History / Comment(s): Pulmonary hypertension. at 78. Medications and Allergies Home Medications Medication Instructions Recorded Confirmed Type Atorvastatin [Lipitor] 10 mg PO DAILY 10/08/15 07/14/19 History DULoxetine HCL [Cymbalta] 30 mg PO HS 09/15/18 07/14/19 History metFORMIN HCL [Glucophage] 500 mg PO BID 12/17/18 07/14/19 History Baclofen [Lioresal] 20 mg PO BID 05/09/19 07/14/19 History Butalb/Acetaminophen/Caffeine 1 cap PO BID PRN 05/09/19 07/14/19 History [Fioricet 50-300-40 mg Capsule] DULoxetine HCL [Cymbalta] 60 mg PO DAILY 05/09/19 07/14/19 History Meclizine [Antivert] 25 mg PO TID PRN #20 tab 05/16/19 07/14/19 Rx Gabapentin [Neurontin] 300 mg PO BID 07/09/19 07/14/19 History HYDROcodone/APAP 10-325MG [[place] 1 each PO BID PRN #12 tab 07/17/19 Rx 10-325] Metoprolol Tartrate [Lopressor] 12.5 mg PO BID 30 Days #60 tab 07/17/19 Rx Allergies Allergy/AdvReac Type Severity Reaction Status Date / Time cephalexin monohydrate Allergy Anaphylaxis Verified 07/14/19 06:49 [From Keflex] Cephalosporins Allergy Unknown Verified 07/14/19 06:49 Penicillins Allergy Anaphylaxis Verified 07/14/19 06:49 Physical Exam Vitals: Vital Signs Temp Pulse Pulse Resp BP BP BP 07/16/19 11:39 98.4 F 67 17 07/16/19 11:07 103/59 121/78 107/57 07/16/19 05:00 97.5 F L 54 L 18 128/86 07/15/19 23:30 16 07/15/19 21:00 97.9 F 64 16 120/61 07/15/19 15:23 76 85 18 Pulse Ox 07/16/19 11:39 95 07/16/19 11:07 07/16/19 05:00 99 07/15/19 23:30 07/15/19 21:00 93 L 07/15/19 15:23 Intake and Output 07/15/19 07/16/19 07/16/19 22:59 06:59 14:59 Intake Total 2380 960 600 Output Total 700 450 Balance 1680 510 600 Intake: Intake, IV Titration 600 600 Amount Sodium Chloride 0.9% 1, 600 600 000 ml @ 75 mls/hr IV . [id number] [facility] Rx#:[id number] Oral 2380 360 Output: Urine 700 450 Other: Voiding Method Urinal Urinal Urinal # Voids 2 Results 07/15/19 14:53 07/15/19 14:53 CBC 07/15/19 Range/Units 14:53 WBC 12.8 H (3.8-10.6) k/uL RBC 4.29 L (4.30-5.90) m/uL Hgb 13.6 (13.0-17.5) gm/dL Hct 41.7 (39.0-53.0) % Plt Count 281 (150-450) k/uL Comprehensive Metabolic Panel 07/15/19 Range/Units 14:53 Sodium 137 (137-145) mmol/L Potassium 4.3 (3.5-5.1) mmol/L Chloride 103 (98-107) mmol/L Carbon Dioxide 25 (22-30) mmol/L BUN 25 H (9-20) mg/dL Creatinine 1.11 (0.66-1.25) mg/dL Glucose 129 H (74-99) mg/dL Calcium 9.1 (8.4-10.2) mg/dL Current Medications Generic Name Dose Route Start Last Admin Trade Name Freq PRN Reason Stop Dose Admin Acetaminophen/Butalbital/Caffeine 1 each 07/14/19 09:19 07/15/19 20:31 Fioricet 50-325-40 PO 1 each BID PRN Administration Migraine Headache Hydrocodone Bitart/Acetaminophen 1 each 07/14/19 16:00 07/16/19 08:09 [place] 10 PO 1 each TID YARIEL Administration Atorvastatin Calcium 10 mg 07/15/19 09:00 07/16/19 08:09 Lipitor PO 10 mg DAILY YARIEL Administration Baclofen 20 mg 07/14/19 21:00 07/16/19 08:09 Lioresal PO 20 mg BID YARIEL Administration Duloxetine HCl 30 mg 07/14/19 21:00 07/15/19 20:25 Cymbalta PO 30 mg HS YARIEL Administration Duloxetine HCl 60 mg 07/15/19 09:00 07/15/19 08:46 Cymbalta PO 60 mg DAILY YARIEL Administration Gabapentin 300 mg 07/14/19 21:00 07/16/19 08:09 Neurontin PO 300 mg BID YARIEL Administration Heparin Sodium (Porcine) 5,000 unit 07/16/19 00:00 07/16/19 08:09 Heparin SQ 5,000 unit Q8HR YARIEL Administration Sodium Chloride 1,000 mls @ 75 mls/hr 07/15/19 22:45 07/16/19 13:04 Saline 0.9% IV 75 mls/hr .[id number] Y[facility]EL Administration Meclizine HCl 25 mg 07/16/19 12:45 07/16/19 13:04 Antivert PO 25 mg TID YARIEL Administration Metformin HCl 500 mg 07/14/19 21:00 07/16/19 08:09 Glucophage PO 500 mg BID YARIEL Administration Metoprolol Tartrate 12.5 mg 07/15/19 21:00 07/16/19 08:09 Lopressor PO 12.5 mg BID YARIEL Administration Ondansetron HCl 4 mg 07/14/19 09:09 Zofran IVP DAILY PRN Nausea And Vomiting Intake and Output 07/15/19 07/16/19 07/16/19 22:59 06:59 14:59 Intake Total 2380 960 600 Output Total 700 450 Balance 1680 510 600 Intake: Intake, IV Titration 600 600 Amount Sodium Chloride 0.9% 1, 600 600 000 ml @ 75 mls/hr IV . [id number] [facility] Rx#:[id number] Oral 2380 360 Output: Urine 700 450 Other: Voiding Method Urinal Urinal Urinal # Voids 2 07/15/19 14:53 07/15/19 14:53
--- NOTE | 2019-07-17 12:37 | P.PN ---
Subjective HISTORY OF PRESENTING ILLNESS This is a pleasant 69-year-old male past medical history significant for diabetes mellitus, hypertension, dyslipidemia, vertigo s/p brain stem corrective surgery 2018, breast cancer s/p mastectomy and irregular heartbeat. He does not have a-fib as a diagnosis but states he has always been told his heart rate is irregular. He has been advised in the past to follow with a insurance claim auditor for outpatient heart monitoring however has never done that. He is currently in the hospital secondary to left radial fracture secondary to fall. He states he had an episode of vertigo causing his fall. He underwent open reduction internal fixation of the left radial fracture per Dr. Andersen on July 13. We have been asked to see him in consultation secondary to a near syncopal spell that was witnessed by the nurse this morning. He was undergoing evaluation by physical therapy and upon changing positions he became acutely dizzy, light headed and momentarily was incoherent. No LOC, no syncope or fall. He was assisted to a seated position and observed further. There were no orthostatic changes noted on vital sign assessment. Telemetry was in place and reviewed. There were no changes in his rhythm throughout this event. He denies feeling chest pain, shortness of breath or palpitations. He does feel palpita tions at times unrelated to this event. He had a similar episode yesterday while working with physical therapy as well. He states when he underwent surgery on his brain stem in 2018 he was told by his neurosurgeon that he would likely need a repeat surgery in a few years. EKG reveals sinus mechanism with PAC's. No acute ischemic changes. Laboratory data reviewed, WBC 12.8, hemoglobin 13.6, platelets 281, d-dimer 0.45, sodium 137, potassium 4.3, creatinine 1.11, TSH 1.06. Current daily cardiac medications include atorvastatin 10 mg daily, lisinopril 20 mg twice a day and Lopressor 50 mg twice a day. Most recent echocardiogram obtained in 2018 reveals preserved LV systolic function with ejec tion fraction 55-60%. Most recent stress test in 2016 was a Lexiscan stress test was negative for reversible cardiac ischemia. 07/17/2019 Patient is stable on current regimen. He has had no further symptoms of dizziness or near syncope. Telemetry tracings unremarkable. Blood pressure 135/80 heart rate 83 afebrile maintaining oxygen saturation on room air. CT of the brain revealed age-related atrophic and chronic small vessel ischemic change without acute intracranial process. Echocardiogram revealed preserved LV systolic function with ejection fraction 55-60%. PHYSICAL EXAMINATION Blood pressure 107/57 heart rate 67 afebrile and maintaining oxygen saturation on room air. CONSTITUTIONAL: No apparent distress. Obese. HEENT: Head is normocephalic. Pupils are equal, round. Sclerae anicteric. Mucous membranes of the mouth are moist. No JVD. No carotid bruit. CHEST EXAMINATION: Lungs are clear to auscultation. No chest wall tenderness is noted on palpation or with deep breathing. HEART EXAMINATION: Irregular rate and rhythm. S1, S2 heard. No murmurs, gallops or rub. EXTREMITIES: 2+ peripheral pulses, no lower extremity edema and no calf tenderness. Left upper extremity sling and caste in place. ASSESSMENT Dizziness suggestive of vertigo with history of vertigo, per the patient his symptoms feel exactly similar to how he has felt in the past with vertigo Near syncope, no evidence of melita or tachy-arrhythmia on telemetry and no orthostatic changes Vertigo Fall Left radial fracture secondary to fall and vertigo Hypertension Dyslipidemia Diabetes mellitus Obesity, BMI 38 PLAN Stable from a cardiac perspective. No evidence of acute arrhythmia on telemetry. Symptoms improved with scheduled Antivert. Follow-up in the office with Dr. Panda in 2 weeks. Nurse Practitioner note has been reviewed, I agree with a documented findings and plan of care. Patient was seen and examined. Objective - Vital Signs Vital signs: Vital Signs Temp 97.9 F 07/17/19 11:42 Pulse 83 07/17/19 11:42 Resp 17 07/17/19 11:42 BP 135/80 07/17/19 11:42 Pulse Ox 95 07/17/19 11:42 Intake & Output 07/16/19 07/17/19 07/17/19 18:59 06:59 18:59 Intake Total 600 590 Output Total 900 Balance -300 590 Intake: Intake, IV Titration 600 Amount Sodium Chloride 0.9% 1, 600 000 ml @ 75 mls/hr IV . [id number] [facility] Rx#:[id number] Oral 590 Output: Urine 900 Other: Voiding Method Urinal Urinal Urinal # Voids 1 3 - Labs CBC & Chem 7: 07/15/19 14:53 07/15/19 14:53 Labs: Abnormal Lab Results - Last 24 Hours (Table) 07/16/19 Range/Units 23:22 POC Glucose (mg/dL) 148 H (75-99) mg/dL
--- NOTE | 2019-07-17 13:06 | P.PN ---
Subjective Progress Note Date: 07/17/19 Principal diagnosis: Patient is a 69 old male with a known history of hypertension, hyperlipidemia, diabetes type 2 [id number], memory impairment, osteoarthritis, questi onable history of atrial fibrillation, chronic headaches and history of chronic positional vertigo status post brain stem surgery for decompression and is on follow-up with his neurosurgeon at [facility] presents to ER status post fall and injury to his left wrist. Patient was seen in the outpatient setting by orthopedic surgery and did remind he would need surgical fixation of his left wrist fracture. Patient was found have comminuted displaced three-part intra- articular left distal radius fracture. Patient is status post ORIF of left distal radius fracture. Patient was seen by PT OT and also pain is controlled with medications. Patient is being discharged home today. While he was getting out of bed patient says that he felt very dizzy and weak. Patient says that it is different from his regular vertigo which he gets while he is in the bed and moving his head. Currently patient denied any dizziness while in the bed. Patients blood pressure found to be in the lower side with SBP 89 mm Hg. Orthostatics were negative. Patient was started back on his home blood pressure medications including metoprolol 50 mg twice a day and lisinopril 20 mg twice a day. Postoperatively patient is hypotensive and is also on IV narcotic pain medications for pain control. Patient is not tachycardic. Saturating at 96% on room air. Patient says that he had extensive workup including MRI of the brain and carotid duplex recently by his neurosurgeon few months ago. Patient is supposed to follow with his neurosurgery and was planning for brain stem surgery on the left side, previously had on the right side. Due to recent pandemic his appointment was canceled. Patient was previously suspected to have atrial fibrillation and was told to follow with cardiology for continuous monitoring. EKG showed sinus rhythm with PVCs. TSH within normal limits. Patient otherwise denied any complaints of chest pain or shortness of breath. No leg swelling. No nausea vomiting or abdominal pain. Does have history of chronic headaches but no change recently. 07/16/2019 Patient is seen and evaluated in follow-up today and continues to be extremely dizzy and states this is more so than his usual dizziness. Patient has been following in the outpatient setting with a neurosurgeon and is supposed to be following up for an additional brain stem surgery on the left side as he had recently undergone one on the right side and has been unable to follow-up. Patient has continued dizziness and more frequent falls and is recently admitted here under orthopedic surgery for status post ORIF of the left distal radius fracture. Patient continues to have low blood pressure and his orthostatic and blood pressure medications are on hold. Patient does have a history of taking metoprolol which we have decreased. Patient is on telemetry showing normal sinus rhythm at this time. Patient was getting up with physical therapy and experienced a possible syncopal episode and per nursing staff appeared to be almost postictal and did not recall the event at the bedside. Cardiology and neurology will be consulted and is pending at this time. Currently no reports of chest pain, shortness of breath, or palpitations. Patient is afebrile. No reports of nausea or vomiting and patient is tolerating diet. Will continue to follow along closely. 07/17/2019 Patient was seen and evaluated in follow-up today stating that his dizziness has improved from yesterday. Patient was seen and evaluated by neurology recommended CAT scan which showed age-related and chronic small vessel ischemic changes without any acute intracranial process noted. Patient does follow-up with a neurosurgeon at [facility] and will continue in the outpatient setting. Patient continues to get dizzy with attempts to standing and has been working with physical therapy. Case management consulted for possible placement for rehab although patient is refusing but is agreeable to home care in the outpatient setting. Patient states he would like to return home once discharged. Neurology was also questioning possible sleep apnea and pulmonary consult was placed and is pending at this time. Blood pressure under better control and blood pressure medications continue to be held. Lopressor was also adjusted and decreased and patient is tolerating well. Cardiology has seen and evaluated the patient recommending outpatient follow-up once discharged. Currently no reports of chest pain, shortness of breath, or palpitations. Patient is afebrile. No reports of nausea or vomiting and patient is tolerating diet. Objective - Vital Signs Vital signs: Vital Signs Temp 97.8 F 07/17/19 05:00 Pulse 64 07/17/19 05:00 Resp 18 07/17/19 05:00 BP 127/81 07/17/19 05:00 Pulse Ox 95 07/17/19 05:00 Intake & Output 07/16/19 07/17/19 07/17/19 18:59 06:59 18:59 Intake Total 600 590 Output Total 900 Balance -300 590 Intake: Intake, IV Titration 600 Amount Sodium Chloride 0.9% 1, 600 000 ml @ 75 mls/hr IV . [id number] [facility] Rx#:[id number] Oral 590 Output: Urine 900 Other: Voiding Method Urinal Urinal Urinal # Voids 1 3 - Exam Patient is sitting up in the bed comfortably, no acute distress, awake alert and oriented.. Well-developed, well-nourished, obese HEENT: Normocephalic. Neck is supple. Pupils reactive. Nostrils clear. Oral cavity is moist. Ears reveal no drainage. Neck reveals no JVD, carotid bruits, or thyromegaly. CHEST EXAMINATION: Trachea is central. Symmetrical expansion. Bibasilar dimini shed air entry. Lung bishop clear to auscultation and percussion. CARDIAC: Normal S1, S2 with no gallops. No murmurs . regular rhythm. ABDOMEN: Soft. Obese, Bowel sounds normal. No organomegaly. No abdominal bruits. Extremities: reveal no edema. No clubbing or cyanosis Neurologically awake, alert, oriented x3 with well-coordinated movements. No focal deficits noted Skin: No rash or skin lesions. Psychiatric: Cooperative. Non-suicidal Musculoskeletal: No joint swelling or deformity. Normal range of motion. Left hand cast in place with some mild swelling noted of the 5 digits with full sensation and mobility. Swelling of the left hand digits has improved slightly - Labs CBC & Chem 7: 07/15/19 14:53 07/15/19 14:53 Labs: Abnormal Lab Results - Last 24 Hours (Table) 07/16/19 Range/Units 23:22 POC Glucose (mg/dL) 148 H (75-99) mg/dL Assessment and Plan Assessment: Dizziness likely due to hypotension from antihypertensives and narcotic pain medications. Rule out arrhythmia. Arrhythmia ruled out. Possible syncopal episode. Neurology following. CT of the brain was within normal limits Left distal radius fracture status post ORIF Recurrent falls due to history of chronic vertigo and dizziness. History of brain stem surgery for decompression due to chronic dizziness. On follow-up with neurosurgeon at [facility]. Hypertension. currently hypotensive, improving hypertensive medications continue to be on hold Hyperlipidemia Diabetes type 2 [id number] Questionable history of atrial fibrillation. Not seen by cardiology, was r ecommended to follow-up. EKG showed NSR. Echo done showing overall left ventricular systolic function is normal with an EF between 55 and 60% Vertigo Chronic headaches history of breast cancer status post bilateral mastectomy with right-sided lymph node removal. History of back surgery due to herniated discs Previous history of smoking DVT prophylaxis. Heparin subcu. Plan: Patient will be placed on telemetry monitoring. Continue with home hypoglycemic agents since and insulin sliding scale as needed. Neurology following recommending pulmonary consult for possible sleep apnea and is pending at this time. Cardiology evaluated the patient recommending outpatient follow-up and to continue with current medication regimen of metoprolol 12.5 mg twice daily and blood pressure medications continue to be on hold. Patient underwent an echo showing overall left ventricular systolic function is normal with EF between 55 and 60%. Patient continues to be quite dizzy and unable to stand without dizziness and case management and social work were consulted for possible rehab at an [facility] on both patient is refusing at this time and would like to return home upon discharge and is agreeable to home care in the outpatient setting. Further recommendations based on the clinical course. Thank you for this consult and will continue to follow along closely with you.
--- NOTE | 2019-07-17 14:53 | P.CNPUL ---
History of Present Illness Consult date: 07/17/19 Chief complaint: Rule out sleep apnea History of present illness: 69-year-old white male patient of Dr. Damon Rodriguez, with past medical history of atrial fibrillation, diabetes mellitus type 2, hypertension, hyperlipidemia, osteoarthritis, previous episodes of pneumonia, frequent falls for an unknown reason, vertigo, chronic headaches, brainstem surgery for decompression. Other medical history includes history of breast cancer with bilateral mastectomy. On 07/13/2019 patient came into the emergency department status post fall and injury to his left wrist. Patient was evaluated in the outpatient setting by orthopedic surgery who recommended surgical fixation of his left wrist fracture. Patient was found to have comminuted displaced 3 part intra-articular left distal radius fracture, on 07/14/2019 patient had ORIF of the left distal radius fracture by Dr. Andersen. On his first postoperative day patient developed dizziness, weakness, his blood pressure was very borderline with the systolic blood pressure in the 80s. Orthostatic blood pressures were negative. In the postoperative period patient was hypotensive, receiving his home antihypertensives and receiving IV narcotic pain medications. No shortness of breath, room air pulse ox was 96%, no tachycardia. Patient was evaluated by cardiology and neurology. Antihypertensives doses were adjusted, EKG shows sinus rhythm, lab work was unremarkable, narcotic pain medications were adjusted, blood sugars have been stable. Neurology evaluated the patient and suspected presence of obstructive and possible central sleep apnea, and we were asked to see the patient in consultation for possibility of sleep study. During our evaluation patient is awake and alert, he is sitting up in bed, remains pulse ox is 95%, hemodynamically patient is stable, blood pressures 135/80, patient is afebrile, no difficulty breathing. Patient is morbidly obese, and he states he has gained 50-60 pounds in the last year. He was by himself, no bed partner, he is unsure whether he has snoring, or wakes up gasping for air, he at times wakes up with a dry mouth. He usually goes to bed at around 5:00 in the morning, he states he has trouble falling asleep at night, and usually stays up until early hours of morning. He sleeps during the day. Right now does not appear to be in any acute distress. His narcotic medications have been adjusted, his vital signs are stable, we told the patient in view of the COVID 19 pandemic the sleep center is closed right now, and he will be evaluated for presence of sleep apnea on the outpatient basis Review of Systems All systems: negative Constitutional: Reports daytime sleepiness, Reports weight gain, Denies chills, Denies fever Eyes: denies blurred vision, denies pain Ears, nose, mouth and throat: Denies headache, Denies sore throat Cardiovascular: Denies chest pain, Denies shortness of breath Respiratory: Denies cough Gastrointestinal: Denies abdominal pain, Denies diarrhea, Denies nausea, Denies vomiting Musculoskeletal: Denies myalgias Integumentary: Denies pruritus, Denies rash Neurological: Reports vertigo, Denies numbness, Denies weakness Psychiatric: Denies anxiety, Denies depression Endocrine: Denies fatigue, Denies weight change Past Medical History Past Medical History: Atrial Fibrillation, Cancer, Diabetes Mellitus, GERD/Reflux, Hyperlipidemia, Hypertension, Memory Impairment, Osteoarthritis (OA), Pneumonia Additional Past Medical History / Comment(s): FELL 07/09/19 FX LT RADIUS, FREQUENT FALLS-REASON UNKNOWN. 03-10-16 FELL/FX RT FIBULA, VERTIGO , chronic headaches, BREAST CANCER History of Any Multi-Drug Resistant Organisms: MRSA Date of last positivie culture/infection: 02/2017 MDRO Source:: MRSA Past Surgical History: Back Surgery, Breast Surgery, Orthopedic Surgery Additional Past Surgical History / Comment(s): Bilateral mastectomy with right sided lymp node removal due to cancer, R knee cap removed, Back surgery for herniated disc., Brain stem surgery for decompression-for dizziness, right ankle ORIF, bilateral wrist fractures SX Past Anesthesia/Blood Transfusion Reactions: No Reported Reaction Past Psychological History: No Psychological Hx Reported Smoking Status: Former smoker Past Alcohol Use History: None Reported Additional Past Alcohol Use History / Comment(s): STARTED SMOKING AT AGE 18, SMOKE A PIPE GOES THRU A PACK OF PIPE TOBACCO/DAY quit smoking in 2005 Past Drug Use History: None Reported - Past Family History Father History Unknown: Yes Family Medical History: Congestive Heart Failure (CHF) Additional Family Medical History / Comment(s): at 68. Mother History Unknown: Yes Family Medical History: Hypertension Additional Family Medical History / Comment(s): Pulmonary hypertension. at 78. Medications and Allergies Home Medications Medication Instructions Recorded Confirmed Type Atorvastatin [Lipitor] 10 mg PO DAILY 07/15/16 04/20/20 History DULoxetine HCL [Cymbalta] 30 mg PO HS 09/15/18 07/14/19 History metFORMIN HCL [Glucophage] 500 mg PO BID 12/17/18 07/14/19 History Baclofen [Lioresal] 20 mg PO BID 05/09/19 07/14/19 History Butalb/Acetaminophen/Caffeine 1 cap PO BID PRN 05/09/19 07/14/19 History [Fioricet 50-300-40 mg Capsule] DULoxetine HCL [Cymbalta] 60 mg PO DAILY 05/09/19 07/14/19 History Meclizine [Antivert] 25 mg PO TID PRN #20 tab 05/16/19 07/14/19 Rx Gabapentin [Neurontin] 300 mg PO BID 07/09/19 07/14/19 History HYDROcodone/APAP 10-325MG [Brewer 1 each PO BID PRN #12 tab 07/17/19 Rx 10-325] Metoprolol Tartrate [Lopressor] 12.5 mg PO BID 30 Days #60 tab 07/17/19 Rx Allergies Allergy/AdvReac Type Severity Reaction Status Date / Time cephalexin monohydrate Allergy Anaphylaxis Verified 07/14/19 06:49 [From Keflex] Cephalosporins Allergy Unknown Verified 07/14/19 06:49 Penicillins Allergy Anaphylaxis Verified 07/14/19 06:49 Physical Exam Vitals: Vital Signs Temp Pulse Pulse Resp BP BP Pulse Ox 07/17/19 11:42 97.9 F 83 17 135/80 95 07/17/19 05:00 97.8 F 64 18 127/81 95 07/16/19 21:00 98.0 F 78 16 143/84 95 Intake and Output 07/16/19 07/17/19 07/17/19 22:59 06:59 14:59 Intake Total 590 Balance 590 Intake: Oral 590 Other: Voiding Method Urinal Urinal # Voids 3 GENERAL EXAM: Alert, very pleasant, 69-year-old obese white male, on room air, with a pulse ox of 95% comfortable in no apparent distress. HEAD: Normocephalic/atraumatic. EYES: Normal reaction of pupils, equal size. Conjunctiva pink, sclera white. NOSE: Clear with pink turbinates. THROAT: No erythema or exudates. NECK: No masses, no JVD, no thyroid enlargement, no adenopathy. CHEST: No chest wall deformity. Symmetrical expansion. LUNGS: Equal air entry with no crackles, wheeze, rhonchi or dullness. CVS: Regular rate and rhythm, normal S1 and S2, no gallops, no murmurs, no rubs ABDOMEN: Soft, nontender. No hepatosplenomegaly, normal bowel sounds, no guarding or rigidity. EXTREMITIES: No clubbing, no edema, no cyanosis, 2+ pulses and upper and lower extremities. Left arm is immobilized status post left ORIF left distal radius fracture MUSCULOSKELETAL: Muscle strength and tone normal. SPINE: No scoliosis or deformity SKIN: No rashes CENTRAL NERVOUS SYSTEM: Alert and oriented -3. No focal deficits, tone is normal in all 4 extremities. PSYCHIATRIC: Alert and oriented -3. Appropriate affect. Intact judgment and insight. Results - Laboratory Findings CBC and BMP: 07/15/19 14:53 07/15/19 14:53 PT/INR, D-dimer D-Dimer 0.45 mg/L FEU (<0.60) 07/16/19 10:38 Abnormal lab findings: Abnormal Labs 07/14/19 07/14/19 07/15/19 06:48 21:16 14:53 WBC 12.8 H RBC 4.29 L Neutrophils # 8.9 H BUN Glucose POC Glucose (mg/dL) 129 H 186 H 07/15/19 07/16/19 14:53 23:22 WBC RBC Neutrophils # BUN 25 H Glucose 129 H POC Glucose (mg/dL) 148 H - Diagnostic Findings Additional studies: Brain CT reviewed Assessment and Plan Plan: Assessment: #1. Recurrent falls, of unknown etiology, status post left distal radius fracture status post ORIF #2. Chronic vertigo and dizziness, improved #3. Daytime sleepiness, possibility of obstructive sleep apnea, rule out possibly due to central apnea, patient needs outpatient sleep study #4. History of brainstem surgery for decompression due to chronic dizziness patient follows at the [facility] with neurology #5. Diabetes mellitus type 2 #6. Questionable history of atrial fibrillation #7. Chronic headaches #8. History of breast cancer status post bilateral mastectomy with right-sided lymph node removal #9. Chronic pain related to back surgery related to herniated disks #10. History of smoking Plan: Patient will be set up for outpatient sleep study, the sleep center is closed right now related to COVID 19 pandemic. Vital signs are stable, vertigo is improving, narcotic doses have been adjusted. I performed a history & physical examination of the patient and discussed their management with my nurse practitioner, Yareli Anderson. I reviewed the nurse practitioner's note and agree with the documented findings and plan of care. Lung sounds are positive for clear breath sounds. The findings and the impression was discussed with the patient. I attest to the documentation by the nurse practitioner. Time with Patient: Greater than 30
[2019-07-17] MEDS: DULoxetine HCL 30 MG CAPSULE.DR PO SCH (20:51)
[2019-07-18] MEDS: HEPARIN SODIUM,PORCINE 5,000 UNIT/ML 1 ML VIAL SQ SCH ×2 (00:08→07:33)
[2019-07-18] MEDS: SODIUM CHLORIDE 0.9% 1,000 ML IV SCH (07:12)
[2019-07-18] MEDS: METOPROLOL TARTRATE 12.5 MG TAB PO SCH (07:31)
[2019-07-18] MEDS: MECLIZINE 25 MG TAB PO SCH (07:31)
[2019-07-18] MEDS: ATORVASTATIN 10 MG TAB PO SCH (07:31)
[2019-07-18] MEDS: HYDROcodone/APAP 10-325MG 1 EACH TAB PO SCH (07:31)
[2019-07-18] MEDS: GABAPENTIN 300 MG CAP PO SCH (07:32)
[2019-07-18] MEDS: metFORMIN 500 MG TAB PO SCH (07:32)
[2019-07-18] MEDS: DULoxetine HCL 60 MG CAPSULE.DR PO SCH (07:32)
[2019-07-18] MEDS: BACLOFEN 10 MG TAB PO SCH (07:33)
[2019-07-18] MEDS: BUTALB/APAP/CAFF 50-325-40MG TAB PO PRN (10:13)
--- NOTE | 2019-07-18 11:14 | P.PN ---
Subjective HISTORY OF PRESENTING ILLNESS This is a pleasant 69-year-old male past medical history significant for diabetes mellitus, hypertension, dyslipidemia, vertigo s/p brain stem corrective surgery 2018, breast cancer s/p mastectomy and irregular heartbeat. He does not have a-fib as a diagnosis but states he has always been told his heart rate is irregular. He has been advised in the past to follow with a [facility] for outpatient heart monitoring however has never done that. He is currently in the hospital secondary to left radial fracture secondary to fall. He states he had an episode of vertigo causing his fall. He underwent open reduction internal fixation of the left radial fracture per Dr. Andersen on July 13. We have been asked to see him in consultation secondary to a near syncopal spell that was witnessed by the nurse this morning. He was undergoing evaluation by physical therapy and upon changing positions he became acutely dizzy, light headed and momentarily was incoherent. No LOC, no syncope or fall. He was assisted to a seated position and observed further. There were no orthostatic changes noted on vital sign assessment. Telemetry was in place and reviewed. There were no changes in his rhythm throughout this event. He denies feeling chest pain, shortness of breath or palpitations. He does feel palpita tions at times unrelated to this event. He had a similar episode yesterday while working with physical therapy as well. He states when he underwent surgery on his brain stem in 2018 he was told by his neurosurgeon that he would likely need a repeat surgery in a few years. EKG reveals sinus mechanism with PAC's. No acute ischemic changes. Laboratory data reviewed, WBC 12.8, hemoglobin 13.6, platelets 281, d-dimer 0.45, sodium 137, potassium 4.3, creatinine 1.11, TSH 1.06. Current daily cardiac medications include atorvastatin 10 mg daily, lisinopril 20 mg twice a day and Lopressor 50 mg twice a day. Most recent echocardiogram obtained in 2018 reveals preserved LV systolic function with ejec tion fraction 55-60%. Most recent stress test in 2016 was a Lexiscan stress test was negative for reversible cardiac ischemia. 07/17/2019 Patient is stable on current regimen. He has had no further symptoms of dizziness or near syncope. Telemetry tracings unremarkable. Blood pressure 135/80 heart rate 83 afebrile maintaining oxygen saturation on room air. CT of the brain revealed age-related atrophic and chronic small vessel ischemic change without acute intracranial process. Echocardiogram revealed preserved LV systolic function with ejection fraction 55-60%. 07/18/2019 Pt is seen and examined sitting up in bed in no acute distress. He states overall his vertigo has improved. No further episodes of near syncope. Telemetry tracings unremarkable. Blood pressure 149/94 geart rate 69. PHYSICAL EXAMINATION CONSTITUTIONAL: No apparent distress. Obese. HEENT: Head is normocephalic. Pupils are equal, round. Sclerae anicteric. Mucous membranes of the mouth are moist. No JVD. No carotid bruit. CHEST EXAMINATION: Lungs are clear to auscultation. No chest wall tenderness is noted on palpation or with deep breathing. HEART EXAMINATION: Irregular rate and rhythm. S1, S2 heard. No murmurs, gallops or rub. EXTREMITIES: 2+ peripheral pulses, no lower extremity edema and no calf tendern ess. Left upper extremity sling and caste in place. ASSESSMENT Dizziness suggestive of vertigo with history of vertigo, per the patient his symptoms feel exactly similar to how he has felt in the past with vertigo Near syncope, no evidence of melita or tachy-arrhythmia on telemetry and no orthostatic changes Vertigo Fall Left radial fracture secondary to fall and vertigo Hypertension Dyslipidemia Diabetes mellitus Obesity, BMI 38 PLAN Stable from a cardiac perspective. Agree with need for outpatient sleep study. Explained to pt in great detail the cardiac connection with sleep apnea. He is agreeing to follow up with study as well as outpatient cardiac follow up. We will follow along as needed. Follow-up in the office with Dr. Panda in 2 weeks. Nurse Practitioner note has been reviewed, I agree with a documented findings and plan of care. Patient was seen and examined. Objective - Vital Signs Vital signs: Vital Signs Temp 98 F 07/18/19 04:50 Pulse 69 07/18/19 04:50 Resp 18 07/18/19 04:50 BP 149/94 07/18/19 04:50 Pulse Ox 95 07/18/19 04:50 Intake & Output 07/17/19 07/18/19 07/18/19 18:59 06:59 18:59 Intake Total 600 825 Output Total 2300 775 Balance -1700 50 Intake: Intake, IV Titration 600 825 Amount Sodium Chloride 0.9% 1, 600 825 000 ml @ 75 mls/hr IV . [id number] [facility] Rx#:[id number] Output: Urine 2300 775 Other: Voiding Method Urinal Urinal - Labs CBC & Chem 7: 07/15/19 14:53 07/15/19 14:53
[2019-07-18 11:24] VITALS: BP 120/73; PULSE 72; RESP 16; TEMP 98.1
--- NOTE | 2019-07-18 15:33 | P.PN ---
Subjective Progress Note Date: 07/18/19 Principal diagnosis: Patient is a 69 old male with a known history of hypertension, hyperlipidemia, diabetes type 2 [id number], memory impairment, osteoarthritis, questi onable history of atrial fibrillation, chronic headaches and history of chronic positional vertigo status post brain stem surgery for decompression and is on follow-up with his neurosurgeon at [facility] presents to ER status post fall and injury to his left wrist. Patient was seen in the outpatient setting by orthopedic surgery and did remind he would need surgical fixation of his left wrist fracture. Patient was found have comminuted displaced three-part intra- articular left distal radius fracture. Patient is status post ORIF of left distal radius fracture. Patient was seen by PT OT and also pain is controlled with medications. Patient is being discharged home today. While he was getting out of bed patient says that he felt very dizzy and weak. Patient says that it is different from his regular vertigo which he gets while he is in the bed and moving his head. Currently patient denied any dizziness while in the bed. Patients blood pressure found to be in the lower side with SBP 89 mm Hg. Orthostatics were negative. Patient was started back on his home blood pressure medications including metoprolol 50 mg twice a day and lisinopril 20 mg twice a day. Postoperatively patient is hypotensive and is also on IV narcotic pain medications for pain control. Patient is not tachycardic. Saturating at 96% on room air. Patient says that he had extensive workup including MRI of the brain and carotid duplex recently by his neurosurgeon few months ago. Patient is supposed to follow with his neurosurgery and was planning for brain stem surgery on the left side, previously had on the right side. Due to recent pandemic his appointment was canceled. Patient was previously suspected to have atrial fibrillation and was told to follow with cardiology for continuous monitoring. EKG showed sinus rhythm with PVCs. TSH within normal limits. Patient otherwise denied any complaints of chest pain or shortness of breath. No leg swelling. No nausea vomiting or abdominal pain. Does have history of chronic headaches but no change recently. 07/16/2019 Patient is seen and evaluated in follow-up today and continues to be extremely dizzy and states this is more so than his usual dizziness. Patient has been following in the outpatient setting with a neurosurgeon and is supposed to be following up for an additional brain stem surgery on the left side as he had recently undergone one on the right side and has been unable to follow-up. Patient has continued dizziness and more frequent falls and is recently admitted here under orthopedic surgery for status post ORIF of the left distal radius fracture. Patient continues to have low blood pressure and his orthostatic and blood pressure medications are on hold. Patient does have a history of taking metoprolol which we have decreased. Patient is on telemetry showing normal sinus rhythm at this time. Patient was getting up with physical therapy and experienced a possible syncopal episode and per nursing staff appeared to be almost postictal and did not recall the event at the bedside. Cardiology and neurology will be consulted and is pending at this time. Currently no reports of chest pain, shortness of breath, or palpitations. Patient is afebrile. No reports of nausea or vomiting and patient is tolerating diet. Will continue to follow along closely. 07/17/2019 Patient was seen and evaluated in follow-up today stating that his dizziness has improved from yesterday. Patient was seen and evaluated by neurology recommended CAT scan which showed age-related and chronic small vessel ischemic changes without any acute intracranial process noted. Patient does follow-up with a neurosurgeon at [place] and will continue in the outpatient setting. Patient continues to get dizzy with attempts to standing and has been working with physical therapy. Case management consulted for possible placement for rehab although patient is refusing but is agreeable to home care in the outpatient setting. Patient states he would like to return home once discharged. Neurology was also questioning possible sleep apnea and pulmonary consult was placed and is pending at this time. Blood pressure under better control and blood pressure medications continue to be held. Lopressor was also adjusted and decreased and patient is tolerating well. Cardiology has seen and evaluated the patient recommending outpatient follow-up once discharged. Currently no reports of chest pain, shortness of breath, or palpitations. Patient is afebrile. No reports of nausea or vomiting and patient is tolerating diet. 07/18/2019 Patient is seen in follow-up today and states that his dizziness has improved and would like to go home today. Patient was seen and evaluated by neurology who recommended pulmonary consult for possible sleep apnea. Pulmonary evaluated the patient and recommending outpatient follow-up in a few weeks for further testing. Patient continues to be dizzy and slightly weak with standing although is adamant about going home and not going to rehab. Patient is agreeable to home care. Patient would really like to get home and follow-up with neurosurgeon at [facility]. Patient to continue with metoprolol although antihypertensive medications are being held. Patient will need follow-up with primary care provider in the outpatient setting. Patient states he does have a walker at home and instructed the patient when getting up to walk to sit first without feelings of dizziness and use the walker while standing and walking. Patient verbalized understanding. Patient states that he does have friends that are able to come and help him if needed. Currently no reports of chest pain, shortness of breath, palpitations. Patient denies any worsening dizziness, lightheadedness, or feelings of passing out. Patient is afebrile. No reports of nausea or vomiting and patient is tolerating diet. Splint to the left hand and forearm noted. Objective - Vital Signs Vital signs: Vital Signs Temp 98.1 F 07/18/19 11:00 Pulse 72 07/18/19 11:00 Resp 16 07/18/19 11:00 BP 120/73 07/18/19 11:00 Pulse Ox 95 07/18/19 11:00 Intake & Output 07/17/19 07/18/19 07/18/19 18:59 06:59 18:59 Intake Total 312 831 1149 Output Total 2300 775 Balance -1700 50 1580 Intake: Intake, IV Titration 600 825 Amount Sodium Chloride 0.9% 1, 600 825 000 ml @ 75 mls/hr IV . [id number] [facility] Rx#:[id number] Oral 1580 Output: Urine 2300 775 Other: Voiding Method Urinal Urinal Urinal # Voids 2 - Exam Patient is sitting up in the chair comfortably, no acute distress, awake alert and oriented.. Well-developed, well-nourished, obese HEENT: Normocephalic. Neck is supple. Pupils reactive. Nostrils clear. Oral cavity is moist. Ears reveal no drainage. Neck reveals no JVD, carotid bruits, or thyromegaly. CHEST EXAMINATION: Trachea is central. Symmetrical expansion. Bibasilar diminished air entry. Lung bishop clear to auscultation and percussion. CARDIAC: Normal S1, S2 with no gallops. No murmurs . regular rhythm. ABDOMEN: Soft. Obese, Bowel sounds normal. No organomegaly. No abdominal b ruits. Extremities: reveal no edema. No clubbing or cyanosis Neurologically awake, alert, oriented x3 with well-coordinated movements. No focal deficits noted Skin: No rash or skin lesions. Psychiatric: Cooperative. Non-suicidal Musculoskeletal: No joint swelling or deformity. Normal range of motion. Left hand splint and Timothy wrapping in place with some reduced swelling noted of the 5 digits with full sensation and mobility. Left arm sling noted - Labs CBC & Chem 7: 07/15/19 14:53 07/15/19 14:53 Assessment and Plan Assessment: Dizziness likely due to hypotension from antihypertensives and narcotic pain medications. Rule out arrhythmia. Arrhythmia ruled out. Possible syncopal episode. Neurology following. CT of the brain was within normal limits Left distal radius fracture status post ORIF Recurrent falls due to history of chronic vertigo and dizziness. History of brain stem surgery for decompression due to chronic dizziness. On follow-up with neurosurgeon at [facility]. Hypertension. currently hypotensive, improving hypertensive medications continue to be on hold Hyperlipidemia Diabetes type 2 [id number] Questionable history of atrial fibrillation. Not seen by cardiology, was recommended to follow-up. EKG showed NSR. Echo done showing overall left ventricular systolic function is normal with an EF between 55 and 60% Vertigo Chronic headaches history of breast cancer status post bilateral mastectomy with right-sided lymph node removal. History of back surgery due to herniated discs Previous history of smoking DVT prophylaxis. Heparin subcu. Plan: Continue current medications, management, and symptomatic treatment. Antihypertensive medications being held at this time and metoprolol has been decreased and patient tolerating well. Discussed with the patient about keeping a log of blood pressure readings for primary care follow-up. Discussed with the patient at length about continued dizziness and weakness and would benefit from possible rehab and patient is refusing at this time. Patient is agreeable to home care in case management arranged for this. Patient also does have a walker and will continue to use this. Patient to follow-up with neurosurgeon from [facility] outpatient as soon as possible. Patient will also need to follow-up with pulmonary in the outpatient setting for possible sleep apnea study. Patient states he would like to go home today and will be discharged this afternoon from orthopedic surgery. We'll continue to follow along closely during hospitalization. Thank you for this consult and will continue to follow along closely with you.
== END 2019-07-18 15:00 | disposition home health service (06) | DRG 982 ==
LOC: OR 05:56 → 5NMEDONC 10:07 → OR 07-15 12:44 → 5NMEDONC 07-15 12:44
PROVIDERS: ADMIT Orthopaedic Surgery; ATTEND Orthopaedic Surgery
PROC: 0PSJ04Z Reposition Left Radius with Internal Fixation Device, Open Approach (ICD-10-PCS; principal; 2019-07-14 14:00)
DX: H81.10 Benign paroxysmal vertigo, unspecified ear (principal); S52.613A Displaced fracture of unspecified ulna styloid process, initial encounter for closed fracture; S52.572A Other intraarticular fracture of lower end of left radius, initial encounter for closed fracture; S52.612A Displaced fracture of left ulna styloid process, initial encounter for closed fracture; E11.9 Type 2 diabetes mellitus without complications; I10 Essential (primary) hypertension; E78.5 Hyperlipidemia, unspecified; M19.90 Unspecified osteoarthritis, unspecified site; R41.3 Other amnesia; G89.29 Other chronic pain; R51 Headache; K21.9 Gastro-esophageal reflux disease without esophagitis; R29.6 Repeated falls; Z88.0 Allergy status to penicillin; Z88.1 Allergy status to other antibiotic agents; Z79.899 Other long term (current) drug therapy; Z79.84 Long term (current) use of oral hypoglycemic drugs; Z98.890 Other specified postprocedural states; Z86.69 Personal history of other diseases of the nervous system and sense organs; Z85.3 Personal history of malignant neoplasm of breast; Z87.01 Personal history of pneumonia (recurrent); Z86.14 Personal history of Methicillin resistant Staphylococcus aureus infection; Z90.13 Acquired absence of bilateral breasts and nipples; Z87.81 Personal history of (healed) traumatic fracture; Z87.891 Personal history of nicotine dependence; Z82.49 Family history of ischemic heart disease and other diseases of the circulatory system; W19.XXXA Unspecified fall, initial encounter; I95.2 Hypotension due to drugs; T46.5X5A Adverse effect of other antihypertensive drugs, initial encounter; T40.2X5A Adverse effect of other opioids, initial encounter; E66.01 Morbid (severe) obesity due to excess calories; G47.33 Obstructive sleep apnea (adult) (pediatric); I49.3 Ventricular premature depolarization; Z68.38 Body mass index [BMI] 38.0-38.9, adult; Z79.891 Long term (current) use of opiate analgesic; Z88.8 Allergy status to other drugs, medicaments and biological substances; Z60.2 Problems related to living alone
CPT/HCPCS: 64415; 70450; 76942; 80048; 84443; 85025; 85379; 93306

== ENCOUNTER 2019-11-06 13:21 | Emergency (ER) | payer MEDICARE ==
[2019-11-06 13:29] VITALS: RESP 19
[2019-11-06] MEDS ORDERED: MORPHINE SULFATE 2 MG/ML SYRINGE IVP STA ×2 (13:59→15:45)
--- NOTE | 2019-11-06 14:07 | ED ---
General Adult HPI - General Chief complaint: Extremity Injury, Lower Stated complaint: L ankle pain Time Seen by Provider: 11/06/19 13:25 Source: patient, EMS, RN notes reviewed, old records reviewed Mode of arrival: EMS Limitations: no limitations - History of Present Illness Initial comments: This is a 69-year-old male who presents to the emergency department stating that he fell and twisted his left ankle. Patient complains of left ankle pain. Patient denies hitting his head patient denies any neck injury. Patient denies any upper extremity injury. Patient states he had a fall yesterday and hurt his right lower back. Patient states he thinks he may have tweaked it again today when he felt today. Patient denies any chest or back or abdominal pain. Patient denies any pain in the right lower extremity. Patient denies any site of bleeding. - Related Data Home Medications Medication Instructions Recorded Confirmed DULoxetine HCL [Cymbalta] 30 mg PO HS 09/15/18 11/06/19 metFORMIN HCL [Glucophage] 500 mg PO BID 12/17/18 11/06/19 Baclofen [Lioresal] 20 mg PO BID 05/09/19 11/06/19 DULoxetine HCL [Cymbalta] 60 mg PO DAILY 05/09/19 11/06/19 Gabapentin [Neurontin] 300 mg PO BID 07/09/19 11/06/19 HYDROcodone/APAP 10-325MG [[place] 1 tab PO TID 11/06/19 11/06/19 10-325] Metoprolol Tartrate [Lopressor] 50 mg PO TID 11/06/19 11/06/19 lisinopriL 40 mg PO DAILY 11/06/19 11/06/19 Allergies Allergy/AdvReac Type Severity Reaction Status Date / Time cephalexin monohydrate Allergy Anaphylaxis Verified 11/06/19 16:42 [From Keflex] Cephalosporins Allergy Anaphylaxis Verified 11/06/19 16:42 Penicillins Allergy Anaphylaxis Verified 11/06/19 16:42 Review of Systems ROS Statement: Those systems with pertinent positive or pertinent negative responses have been documented in the HPI. ROS Other: All systems not noted in ROS Statement are negative. Past Medical History Past Medical History: Atrial Fibrillation, Cancer, Diabetes Mellitus, GERD/Reflux, Hyperlipidemia, Hypertension, Memory Impairment, Osteoarthritis (OA), Pneumonia Additional Past Medical History / Comment(s): FELL 4/15/20 FX LT RADIUS, FREQU ENT FALLS-REASON UNKNOWN. 03-10-16 FELL/FX RT FIBULA, VERTIGO , chronic headaches, BREAST CANCER History of Any Multi-Drug Resistant Organisms: MRSA Date of last positivie culture/infection: 02/2017 MDRO Source:: MRSA Past Surgical History: Back Surgery, Breast Surgery, Orthopedic Surgery Additional Past Surgical History / Comment(s): Bilateral mastectomy with right sided lymp node removal due to cancer, R knee cap removed, Back surgery for herniated disc., Brain stem surgery for decompression-for dizziness, right ankle ORIF, bilateral wrist fractures SX Past Anesthesia/Blood Transfusion Reactions: No Reported Reaction Past Psychological History: No Psychological Hx Reported Smoking Status: Never smoker Past Alcohol Use History: None Reported Past Drug Use History: None Reported - Past Family History Father History Unknown: Yes Family Medical History: Congestive Heart Failure (CHF) Additional Family Medical History / Comment(s): at 68. Mother History Unknown: Yes Family Medical History: Hypertension Additional Family Medical History / Comment(s): Pulmonary hypertension. at 78. General Exam - General Exam Comments Initial Comments: GENERAL: Patient is well-developed and well-nourished. Patient is nontoxic and well- hydrated and is in no acute distress. ENT: Neck is soft and supple. No significant lymphadenopathy is noted. Oropharynx is clear. Moist mucous membranes. Neck has full range of motion without eliciting any pain. EYES: The sclera were anicteric and conjunctiva were pink and moist. Extraocular movements were intact and pupils were equal round and reactive to light. Eyelids were unremarkable. PULMONARY: Unlabored respirations. Good breath sounds bilaterally. No audible rales rhonchi or wheezing was noted. CARDIOVASCULAR: There is a regular rate and rhythm without any murmurs gallops or rubs. ABDOMEN: Soft and nontender with normal bowel sounds. SKIN: Skin is clear with no lesions or rashes and otherwise unremarkable. NEUROLOGIC: Patient is alert and oriented x3. Cranial nerves II through XII are grossly int act. Motor and sensory are also intact. Normal speech, volume and content. Symmetrical smile. MUSCULOSKELETAL: Patient has some pain in the lower back little bit to the right of the spine. Patient also has tenderness of the malleolus especially lateral of the left ankle. Patient has minimal proximal leg. Patient has no hip pain and no relief. LYMPHATICS: No significant lymphadenopathy is noted PSYCHIATRIC: Normal psychiatric evaluation. Limitations: no limitations Course Vital Signs 11/06/19 11/06/19 13:23 17:08 Temperature 98.2 F 98.6 F Pulse Rate 88 81 Respiratory 19 19 Rate Blood Pressure 136/76 117/84 O2 Sat by Pulse 96 99 Oximetry Medical Decision Making - Medical Decision Making X-ray of the tib-fib shows no acute abnormality. X-ray of the ankle shows no acute abnormality. X-ray lumbosacral spine shows no acute abnormality. Disposition Clinical Impression: Ankle sprain, Lumbar strain Disposition: HOME SELF-CARE Condition: Good Instructions (If sedation given, give patient instructions): Ankle Sprain (ED), Low Back Strain (ED) Is patient prescribed a controlled substance at d/c from ED?: No Referrals: Damon Rodriguez MD [Primary Care Provider] - 1-2 days Time of Disposition: 15:50
--- NOTE | 2019-11-06 15:01 | XR ---
EXAMINATION TYPE: XR tibia fibula LT, XR ankle complete LT DATE OF EXAM: 11/06/2019 CLINICAL HISTORY: Trauma. Pain after fall. TECHNIQUE: Two views of the left tibia and fibula are obtained. 3 views of the left ankle are obtained. COMPARISON: None. FINDINGS: There is no acute fracture or dislocation seen in the left ankle, tibia or fibula. The kne e and ankle joints are maintained. There is tricompartmental degenerative spurring of the knee. Plant ar and Achilles enthesophytes. There are degenerative articulations of the midfoot and hindfoot. Vasc ular calcifications are seen. The overlying soft tissue appears unremarkable. Normal osseous minerali zation. IMPRESSION: No acute osseous abnormality of the left tibia or fibula, or the left ankle.
--- NOTE | 2019-11-06 15:03 | XR ---
EXAMINATION TYPE: XR lumbosacral spine min 4V DATE OF EXAM: 11/06/2019 CLINICAL HISTORY: Pain after fall. TECHNIQUE: Frontal, lateral, and oblique images of the lumbar spine are obtained. COMPARISON: None FINDINGS: There are 5 lumbar type vertebral bodies identified. The lumbar spine shows satisfactory alignment without evidence of acute fracture or dislocation. Vertebral body heights and disk space he ights are within normal limits. There is marked multilevel anterior and lateral marginal osteophyti c spurring. Facet arthropathy worse inferiorly. No evidence of spondylolysis or spondylolisthesis. IMPRESSION: No acute fracture or dislocation is seen in the lumbar spine.
[2019-11-06 17:09] VITALS: BP 117/84; PULSE 81; TEMP 98.6
== END 2019-11-06 17:19 | disposition home or self-care (01) ==
LOC: EC 13:21
DX: S93.402A Sprain of unspecified ligament of left ankle, initial encounter (principal); S33.5XXA Sprain of ligaments of lumbar spine, initial encounter; E78.5 Hyperlipidemia, unspecified; E11.9 Type 2 diabetes mellitus without complications; Z79.899 Other long term (current) drug therapy; Z79.84 Long term (current) use of oral hypoglycemic drugs; Z88.0 Allergy status to penicillin; Z88.8 Allergy status to other drugs, medicaments and biological substances; Z90.13 Acquired absence of bilateral breasts and nipples; X50.1XXA Overexertion from prolonged static or awkward postures, initial encounter; Z86.14 Personal history of Methicillin resistant Staphylococcus aureus infection; Z85.3 Personal history of malignant neoplasm of breast
CPT/HCPCS: 72110; 73590; 73610; 99284; 96374; 96376; J2270

== ENCOUNTER 2020-02-14 06:51 | Emergency (ER) | payer MEDICARE ==
[2020-02-14 07:17] LABS: Glucose,Whole Blood 164 mg/dL (75-99)
[2020-02-14] MEDS ORDERED: DIAZEPAM 5 MG/ML 2 ML INJ IVP STA (07:21)
[2020-02-14] MEDS ORDERED: MECLIZINE 12.5 MG TAB PO STA (07:21)
[2020-02-14] MEDS ORDERED: METOCLOPRAMIDE 5 MG/ML 2 ML VIAL IVP STA (07:21)
[2020-02-14] MEDS ORDERED: SODIUM CHLORIDE 0.9% 1,000 ML IV STA ×2 (07:21→08:45)
--- NOTE | 2020-02-14 07:28 | ED ---
General Adult HPI - General Chief complaint: Dizziness Stated complaint: Vertigo Time Seen by Provider: 02/14/20 07:00 Source: patient, EMS, RN notes reviewed, old records reviewed Mode of arrival: EMS Limitations: no limitations - History of Present Illness Initial comments: Patient is a pleasant 69-year-old male presenting to the emergency Department with complaints of dizziness. Onset of symptoms was yesterday. Patient does have history of similar symptoms multiple times previously and has had 3 previous surgeries because of this. Patient complains of feeling like he is spinning. Patient has fallen a couple times. Patient does have back pain however this is chronic and unchanged. Patient did have some mild chest discomfort earlier. Patient does feel confused however states this is not new. Chart review from previous visit does not document confusion however. Patient denies any isolated area of weakness. - Related Data Home Medications Medication Instructions Recorded Confirmed DULoxetine HCL [Cymbalta] 30 mg PO HS 09/15/18 11/06/19 metFORMIN HCL [Glucophage] 500 mg PO BID 12/17/18 11/06/19 Baclofen [Lioresal] 20 mg PO BID 05/09/19 11/06/19 DULoxetine HCL [Cymbalta] 60 mg PO DAILY 05/09/19 11/06/19 Gabapentin [Neurontin] 300 mg PO BID 07/09/19 11/06/19 HYDROcodone/APAP 10-325MG [[place] 1 tab PO TID 11/06/19 11/06/19 10-325] Metoprolol Tartrate [Lopressor] 50 mg PO TID 11/06/19 11/06/19 lisinopriL 40 mg PO DAILY 11/06/19 11/06/19 Allergies Allergy/AdvReac Type Severity Reaction Status Date / Time cephalexin monohydrate Allergy Anaphylaxis Verified 11/06/19 16:42 [From Keflex] Cephalosporins Allergy Anaphylaxis Verified 11/06/19 16:42 Penicillins Allergy Anaphylaxis Verified 11/06/19 16:42 Review of Systems ROS Statement: Those systems with pertinent positive or pertinent negative responses have been documented in the HPI. ROS Other: All systems not noted in ROS Statement are negative. Constitutional: Denies: fever Eyes: Denies: eye pain ENT: Denies: ear pain Respiratory: Denies: cough, dyspnea Cardiovascular: Reports: as per HPI, chest pain Endocrine: Denies: fatigue Gastrointestinal: Denies: abdominal pain Genitourinary: Denies: dysuria Musculoskeletal: Reports: as per HPI Skin: Denies: rash Neurological: Reports: as per HPI, confusion, abnormal gait, vertigo. Denies: headache, weakness Past Medical History Past Medical History: Atrial Fibrillation, Cancer, Diabetes Mellitus, GERD/Reflux, Hyperlipidemia, Hypertension, Memory Impairment, Osteoarthritis (OA), Pneumonia Additional Past Medical History / Comment(s): FELL 07/09/19 FX LT RADIUS, FREQUENT FALLS-REASON UNKNOWN. 03-10-16 FELL/FX RT FIBULA, VERTIGO , chronic headaches, BREAST CANCER History of Any Multi-Drug Resistant Organisms: MRSA Date of last positivie culture/infection: 02/2017 MDRO Source:: MRSA Past Surgical History: Back Surgery, Breast Surgery, Orthopedic Surgery Additional Past Surgical History / Comment(s): Bilateral mastectomy with right sided lymp node removal due to cancer, R knee cap removed, Back surgery for herniated disc., Brain stem surgery for decompression-for dizziness, right ankle ORIF, bilateral wrist fractures SX Past Anesthesia/Blood Transfusion Reactions: No Reported Reaction Past Psychological History: No Psychological Hx Reported Smoking Status: Never smoker Past Alcohol Use History: None Reported Past Drug Use History: None Reported - Past Family History Father History Unknown: Yes Family Medical History: Congestive Heart Failure (CHF) Additional Family Medical History / Comment(s): at 68. Mother History Unknown: Yes Family Medical History: Hypertension Additional Family Medical History / Comment(s): Pulmonary hypertension. at 78. General Exam Limitations: no limitations General appearance: alert, in no apparent distress Head exam: Present: normocephalic Eye exam: Present: normal appearance, PERRL, other (Patient will not cooperate for testing for extraocular muscles) ENT exam: Present: normal oropharynx Neck exam: Present: normal inspection Respiratory exam: Present: normal lung sounds bilaterally Cardiovascular Exam: Present: regular rate, normal rhythm GI/Abdominal exam: Present: soft. Absent: tenderness Extremities exam: Present: normal inspection Back exam: Present: normal inspection Neurological exam: Present: alert, CN II-XII intact (Except patient not cooperative for testing of extraocular muscle), other (Appearance of asterixis). Absent: motor sensory deficit Expanded Neurological exam: Present: protecting the airway Patient oriented to: Absent: place, time Cranial nerves: Facial Sensation: Normal Sensory exam: Upper Extremity Light Touch: Normal, Lower Extremity Light Touch: Normal Motor strength exam: RUE: 5, LUE: 5, RLE: 5, LLE: 5 Eye Response: (4) open spontaneously Motor Response: (6) obeys commands Verbal Response: (4) confused conversation Psychiatric exam: Present: normal affect, normal mood Skin exam: Present: normal color Course Vital Signs 02/14/20 02/14/20 02/14/20 06:57 07:29 07:45 Temperature 98.9 F Pulse Rate 66 Respiratory 20 Rate Blood Pressure 102/88 O2 Sat by Pulse 96 Oximetry 02/14/20 02/14/20 02/14/20 08:28 09:09 10:05 Temperature Pulse Rate 52 L 58 L 56 L Respiratory 18 16 Rate Blood Pressure 91/60 100/62 104/68 O2 Sat by Pulse 95 94 L Oximetry - Reevaluation(s) Reevaluation #1: 02/14/20 09:32 Patient reevaluated and unchanged. Case was discussed with Drs. Putnam at [facility] who will try to get in touch with Dr. Ferraro 02/14/20 11:28 They did call back and will not accept transfer. Case was discussed with Dr. Rose. He did question if we had neurology on however otherwise will accept patient. We did contact all of our possible neurology contacts and there is no coverage for this weekend. Case was also discussed with Dr. Leslie at [facility], who will accept transfer. EKG Findings - EKG Comments: EKG Findings:: Sinus rhythm at 60. MA 170. QRS 94. QT 444. QTC 444. Left axis. Incomplete right bundle-branch block. No acute ST change. Medical Decision Making - Lab Data Result diagrams: 02/14/20 07:31 02/14/20 07:31 Lab Results 02/14/20 02/14/20 02/14/20 Range/Units 07:16 07:31 07:31 WBC 12.6 H (3.8-10.6) k/uL RBC 4.54 (4.30-5.90) m/uL Hgb 14.1 (13.0-17.5) gm/dL Hct 43.6 (39.0-53.0) % MCV 96.0 (80.0-100.0) fL MCH 31.0 (25.0-35.0) pg MCHC 32.3 (31.0-37.0) g/dL RDW 13.5 (11.5-15.5) % Plt Count 248 (150-450) k/uL MPV 7.9 Neutrophils % 72 % Lymphocytes % 16 % Monocytes % 7 % Eosinophils % 3 % Basophils % 1 % Neutrophils # 9.1 H (1.3-7.7) k/uL Lymphocytes # 2.0 (1.0-4.8) k/uL Monocytes # 0.9 (0-1.0) k/uL Eosinophils # 0.3 (0-0.7) k/uL Basophils # 0.1 (0-0.2) k/uL PT 9.6 (9.0-12.0) sec INR 0.9 (<1.2) APTT 24.8 (22.0-30.0) sec Sodium (137-145) mmol/L Potassium (3.5-5.1) mmol/L Chloride (98-107) mmol/L Carbon Dioxide (22-30) mmol/L Anion Gap mmol/L BUN (9-20) mg/dL Creatinine (0.66-1.25) mg/dL Est GFR (CKD-EPI)AfAm (>60 ml/min/1.73 sqM) Est GFR (CKD-EPI)NonAf (>60 ml/min/1.73 sqM) Glucose (74-99) mg/dL POC Glucose (mg/dL) 164 H (75-99) mg/dL POC Glu Silk Opener ID Wiliam, Aaron Calcium (8.4-10.2) mg/dL Total Bilirubin (0.2-1.3) mg/dL AST (17-59) U/L ALT (4-49) U/L Alkaline Phosphatase (38-126) U/L Troponin I (0.000-0.034) ng/mL Total Protein (6.3-8.2) g/dL Albumin (3.5-5.0) g/dL 02/14/20 02/14/20 Range/Units 07:31 07:31 WBC (3.8-10.6) k/uL RBC (4.30-5.90) m/uL Hgb (13.0-17.5) gm/dL Hct (39.0-53.0) % MCV (80.0-100.0) fL MCH (25.0-35.0) pg MCHC (31.0-37.0) g/dL RDW (11.5-15.5) % Plt Count (150-450) k/uL MPV Neutrophils % % Lymphocytes % % Monocytes % % Eosinophils % % Basophils % % Neutrophils # (1.3-7.7) k/uL Lymphocytes # (1.0-4.8) k/uL Monocytes # (0-1.0) k/uL Eosinophils # (0-0.7) k/uL Basophils # (0-0.2) k/uL PT (9.0-12.0) sec INR (<1.2) APTT (22.0-30.0) sec Sodium 137 (137-145) mmol/L Potassium 4.7 (3.5-5.1) mmol/L Chloride 102 (98-107) mmol/L Carbon Dioxide 23 (22-30) mmol/L Anion Gap 12 mmol/L BUN 25 H (9-20) mg/dL Creatinine 2.34 H (0.66-1.25) mg/dL Est GFR (CKD-EPI)AfAm 32 (>60 ml/min/1.73 sqM) Est GFR (CKD-EPI)NonAf 27 (>60 ml/min/1.73 sqM) Glucose 156 H (74-99) mg/dL POC Glucose (mg/dL) (75-99) mg/dL POC Glu Silk Opener ID Calcium 9.1 (8.4-10.2) mg/dL Total Bilirubin 0.8 (0.2-1.3) mg/dL AST 44 (17-59) U/L ALT 34 (4-49) U/L Alkaline Phosphatase 48 (38-126) U/L Troponin I <0.012 (0.000-0.034) ng/mL Total Protein 7.4 (6.3-8.2) g/dL Albumin 4.4 (3.5-5.0) g/dL - Radiology Data Radiology results: report reviewed (Computed tomography scan of the brain reveals no acute abnormality. CT angios does not review acute abdominal abnormality.), image reviewed (Chest x-ray shows mild patchy density right lower lobe, cannot rule out developing pneumonia.) Disposition Clinical Impression: Vertigo, Altered mental status Disposition: OTHER INSTITUTION NOT DEFINED Is patient prescribed a controlled substance at d/c from ED?: No Referrals: Damon Rodriguez MD [Primary Care Provider] - 1-2 days - Out of Hospital Transfer - Req. Specs Out of Hospital Transfer - Requested Specifics: Other Emergency Center
[2020-02-14 07:46] LABS: Basophils # (A) 0.1 k/uL (0-0.2); Basophils % (A) 1 %; Eosinophils # (A) 0.3 k/uL (0-0.7); Eosinophils % (A) 3 %; HCT 43.6 % (39.0-53.0); HGB 14.1 gm/dL (13.0-17.5); Lymphocytes % (A) 16 %; MCHC 32.3 g/dL (31.0-37.0); Mean Platelet Volume 7.9; Monocytes # (A) 0.9 k/uL (0-1.0); Monocytes % (A) 7 %; Neutrophils # (A) 9.1 k/uL (1.3-7.7); Neutrophils % (A) 72 %; Platelet Count 248 k/uL (150-450); RBC 4.54 m/uL (4.30-5.90); RDW 13.5 % (11.5-15.5); WBC 12.6 k/uL (3.8-10.6)
[2020-02-14 07:54] LABS: INR 0.9 (<1.2); Partial Thromboplastin Time 24.8 sec (22.0-30.0); Prothrombin Time 9.6 sec (9.0-12.0)
[2020-02-14 07:58] LABS: Albumin 4.4 g/dL (3.5-5.0); Calcium 9.1 mg/dL (8.4-10.2); Potassium 4.7 mmol/L (3.5-5.1); Total Bilirubin 0.8 mg/dL (0.2-1.3); Total Protein 7.4 g/dL (6.3-8.2)
--- NOTE | 2020-02-14 08:25 | CT ---
EXAMINATION TYPE: CT brain wo con for TPA DATE OF EXAM: 02/14/2020 COMPARISON: 07/16/2019 HISTORY: Neurodeficit, acute, stroke suspected CT DLP: [address] of the brain was performed. The ventricles, basal cisterns and sulci overlying the cerebral convexities demonstrate mild enlargem ent. There is no evidence for intracranial hemorrhage or sulcal effacement. There is decreased attenuation about the periventricular white matter and deep white matter of both c erebral hemispheres, compatible with chronic small vessel ischemia. Differential diagnosis does inclu de demyelination. No mass effects are seen.No midline shift. Osseous calvarium is intact. If symptoms persist consider MRI. IMPRESSION: 1. Age related atrophic and chronic small vessel ischemic change without acute intracranial process s een at this time.
--- NOTE | 2020-02-14 08:58 | XR ---
EXAMINATION TYPE: XR chest 2V DATE OF EXAM: 02/14/2020 COMPARISON: 07/09/2019 HISTORY: Shortness of breath TECHNIQUE: Frontal and lateral views of the chest are obtained. FINDINGS: Scattered senescent parenchymal changes noted. Hyperinflation compatible with COPD. Patchy density right lower lobe may reflect developing pneumonia. Correlate clinically and progress s tudies are recommended. Heart size is stable. Mediastinal structures are stable and grossly unremarkable. No evidence for hilar prominence. Degenerative changes dorsal spine. IMPRESSION: 1. Patchy density right lower lobe may reflect developing pneumonia. Correlate clinically and progres s studies are recommended.
--- NOTE | 2020-02-14 09:00 | CT ---
EXAMINATION TYPE: CT angio head neck DATE OF EXAM: 02/14/2020 COMPARISON: 09/15/2018 HISTORY: Neurologic deficit CONTRAST: Performed with IV Contrast, patient injected with 100 mL of Isovue 370. Combination Contrast CTA cervical carotids and [place] CTA cervical carotids with 3-D recons truction Contrast CTA of the cervical carotids was performed 3-D reconstruction imaging obtained at a separate workstation. Right carotid system: Mild plaque is seen of the right common carotid artery. There is mild plaque a lso noted at the carotid bulb and proximal ICA. No significant diameter reduction. ECA is patent. Right vertebral artery appears unremarkable. Left carotid system: Mild plaque is seen of the left common carotid artery. There is mild plaque als o noted at the carotid bulb and proximal ICA. No significant diameter reduction. ECA is patent. Lef t vertebral artery appears unremarkable. IMPRESSION: 1. No significant diameter reduction to account for the patient's symptoms. CTA [place] with 3-D reconstruction Contrast CTA of the [place] was performed 3-D reconstruction imaging obtained at a separate workstation. Vertebrobasilar system as well as intracranial portions of the internal carotid arteries and their ma michelle tributaries are patent. I do not see evidence for sizable aneurysm or vascular malformation. Pl ease note MRI provides greater sensitivity and specificity. Visualized brain appears grossly unremar kable. IMPRESSION: 1. No significant abnormality.
[2020-02-14 10:05] VITALS: RESP 16
[2020-02-14 11:32] VITALS: BP 117/77; PULSE 62; TEMP 98.1
== END 2020-02-14 12:14 | disposition other institution (70) ==
LOC: EC 06:51
DX: R42 Dizziness and giddiness (principal); R41.82 Altered mental status, unspecified; I48.91 Unspecified atrial fibrillation; I10 Essential (primary) hypertension; E78.5 Hyperlipidemia, unspecified; E11.9 Type 2 diabetes mellitus without complications; K21.9 Gastro-esophageal reflux disease without esophagitis; Z79.84 Long term (current) use of oral hypoglycemic drugs; Z79.899 Other long term (current) drug therapy; Z88.0 Allergy status to penicillin; Z88.1 Allergy status to other antibiotic agents; Z90.13 Acquired absence of bilateral breasts and nipples; Z85.3 Personal history of malignant neoplasm of breast
CPT/HCPCS: 36415; 93005; 80053; 84484; 85025; 85610; 85730; 71046; 70496; 70450; 70498; 99285; 96374; 96375; 96361 ×4; J2765; J3360; Q9967

== ENCOUNTER 2020-07-05 22:21 | Observation (INO) | payer MEDICARE ==
[2020-07-05] MEDS ORDERED: MORPHINE SULFATE 4 MG/ML SYRINGE IV STA (22:23)
[2020-07-05] MEDS ORDERED: SODIUM CHLORIDE 0.9% 1,000 ML IV STA ×2 (22:23)
[2020-07-05 23:09] LABS: Basophils % (A) 0 %; Eosinophils # (A) 0.2 k/uL (0-0.7); Eosinophils % (A) 1 %; HCT 45.6 % (39.0-53.0); HGB 14.5 gm/dL (13.0-17.5); Lymphocytes # (A) 1.8 k/uL (1.0-4.8); Lymphocytes % (A) 10 %; MCH 30.7 pg (25.0-35.0); MCHC 31.8 g/dL (31.0-37.0); MCV 96.4 fL (80.0-100.0); Mean Platelet Volume 8.1; Monocytes # (A) 0.8 k/uL (0-1.0); Monocytes % (A) 5 %; Neutrophils % (A) 84 %; Platelet Count 184 k/uL (150-450); RBC 4.73 m/uL (4.30-5.90); RDW 12.8 % (11.5-15.5); WBC 16.8 k/uL (3.8-10.6)
--- NOTE | 2020-07-05 23:09 | ED ---
Altered Mental Status HPI - General Chief Complaint: Fall Stated Complaint: Altered mental status Time Seen by Provider: 07/05/20 22:23 Source: patient, EMS, RN notes reviewed, old records reviewed Mode of arrival: EMS Limitations: physical limitation - History of Present Illness Initial Comments: This is a 70-year-old male poor story coming in for evaluation of multiple falls apparent weakness, unable to take care of patient self at home. MD Complaint: confusion -: days(s) Severity: moderate Consistency of Symptoms: waxing and waning, getting worse Context: history of similar presentation Associated Symptoms: weakness, difficulty walking Treatments Prior to Arrival: IV fluid - Related Data Home Medications Medication Instructions Recorded Confirmed DULoxetine HCL [Cymbalta] 30 mg PO HS 09/15/18 07/05/20 metFORMIN HCL [Glucophage] 500 mg PO BID 12/17/18 07/05/20 Metoprolol Tartrate [Lopressor] 50 mg PO TID 11/06/19 07/05/20 Aspirin EC [Ecotrin] 325 mg PO DAILY 06/18/20 07/05/20 Atorvastatin [Lipitor] 40 mg PO HS 06/18/20 07/05/20 DULoxetine HCL [Cymbalta] 60 mg PO DAILY 06/18/20 07/05/20 Icosapent Ethyl [Vascepa] 2 gm PO BID 06/18/20 07/05/20 Previous Rx's Medication Instructions Recorded Baclofen [Lioresal] 20 mg PO BID PRN #6 tab 07/07/20 Butalb/APAP/Caff 50-325-40Mg 1 tab PO TID PRN #9 tab 07/07/20 [Fioricet 50-325-40] Gabapentin [Neurontin] 300 mg PO BID #6 cap 07/07/20 lisinopriL 20 mg PO DAILY #30 tablet 07/07/20 traMADol HCl [Ultram] 50 mg PO Q6HR PRN #12 tab 07/07/20 Allergies Allergy/AdvReac Type Severity Reaction Status Date / Time cephalexin monohydrate Allergy Anaphylaxis Verified 06/18/20 14:07 [From Keflex] Cephalosporins Allergy Anaphylaxis Verified 06/18/20 14:07 Penicillins Allergy Anaphylaxis Verified 06/18/20 14:07 Review of Systems ROS Statement: Those systems with pertinent positive or pertinent negative responses have been documented in the HPI. ROS Other: All systems not noted in ROS Statement are negative. Past Medical History Past Medical History: Atrial Fibrillation, Cancer, Diabetes Mellitus, GERD/Reflux, Hyperlipidemia, Hypertension, Memory Impairment, Osteoarthritis (OA), Pneumonia Additional Past Medical History / Comment(s): FELL 07/09/19 FX LT RADIUS, FREQUENT FALLS-REASON UNKNOWN. 03-10-16 FELL/FX RT FIBULA, VERTIGO , chronic headaches, BREAST CANCER History of Any Multi-Drug Resistant Organisms: CRE, MRSA Date of last positivie culture/infection: 02/2017 MDRO Source:: MRSA Past Surgical History: Back Surgery, Breast Surgery, Orthopedic Surgery Additional Past Surgical History / Comment(s): Bilateral mastectomy with right sided lymp node removal due to cancer, R knee cap removed, Back surgery for herniated disc., Brain stem surgery for decompression-for dizziness, right ankle ORIF, bilateral wrist fractures SX Past Anesthesia/Blood Transfusion Reactions: No Reported Reaction Past Psychological History: No Psychological Hx Reported Smoking Status: Never smoker Past Alcohol Use History: None Reported Past Drug Use History: None Reported - Past Family History Father History Unknown: Yes Family Medical History: Congestive Heart Failure (CHF) Additional Family Medical History / Comment(s): at 68. Mother History Unknown: Yes Family Medical History: Hypertension Additional Family Medical History / Comment(s): Pulmonary hypertension. at 78. General Exam General appearance: alert, in no apparent distress Head exam: Present: atraumatic, normocephalic, normal inspection Eye exam: Present: normal appearance, PERRL, EOMI. Absent: scleral icterus, conjunctival injection, periorbital swelling ENT exam: Present: normal exam, mucous membranes moist Neck exam: Present: normal inspection. Absent: tenderness, meningismus, lymphadenopathy Respiratory exam: Present: normal lung sounds bilaterally. Absent: respiratory distress, wheezes, rales, rhonchi, stridor Cardiovascular Exam: Present: regular rate, normal rhythm, normal heart sounds. Absent: systolic murmur, diastolic murmur, rubs, gallop, clicks GI/Abdominal exam: Present: soft, normal bowel sounds. Absent: distended, tenderness, guarding, rebound, rigid Extremities exam: Present: normal inspection, full ROM, normal capillary refill. Absent: tenderness, pedal edema, joint swelling, calf tenderness Back exam: Present: normal inspection Neurological exam: Present: alert, oriented X3, CN II-XII intact Psychiatric exam: Present: normal affect, normal mood Skin exam: Present: warm, dry, intact, normal color. Absent: rash Course Vital Signs 07/05/20 07/05/20 07/05/20 22:23 22:30 23:50 Temperature 98.4 F Pulse Rate 69 67 64 Respiratory 20 20 18 Rate Blood Pressure 78/10 85/57 98/53 O2 Sat by Pulse 96 97 95 Oximetry 07/06/20 07/06/20 01:00 01:34 Temperature Pulse Rate 66 73 Respiratory 18 16 Rate Blood Pressure 95/61 113/40 O2 Sat by Pulse 95 95 Oximetry - Reevaluation(s) Reevaluation #1: Medical record is reviewed Patient symptoms are not ignificantly improved here in the emergency department Patient family informed of results, questions answered Patient will be needed to be admitted for further evaluation management Medical Decision Making - Medical Decision Making 70 male with failure to thrive recent falls multiple falls, no significant i njury noted patient be admitted for PTOT and placement - Lab Data Result diagrams: 07/07/20 06:39 07/07/20 06:39 Lab Results 07/05/20 07/05/20 07/05/20 Range/Units 22:44 22:44 22:44 WBC 16.8 H (3.8-10.6) k/uL RBC 4.73 (4.30-5.90) m/uL Hgb 14.5 (13.0-17.5) gm/dL Hct 45.6 (39.0-53.0) % MCV 96.4 (80.0-100.0) fL MCH 30.7 (25.0-35.0) pg MCHC 31.8 (31.0-37.0) g/dL RDW 12.8 (11.5-15.5) % Plt Count 184 (150-450) k/uL MPV 8.1 Neutrophils % 84 % Lymphocytes % 10 % Monocytes % 5 % Eosinophils % 1 % Basophils % 0 % Neutrophils # 14.0 H (1.3-7.7) k/uL Lymphocytes # 1.8 (1.0-4.8) k/uL Monocytes # 0.8 (0-1.0) k/uL Eosinophils # 0.2 (0-0.7) k/uL Basophils # 0.0 (0-0.2) k/uL PT 9.7 (9.0-12.0) sec INR 0.9 (<1.2) APTT 23.0 (22.0-30.0) sec Sodium 134 L (137-145) mmol/L Potassium 4.6 (3.5-5.1) mmol/L Chloride 98 (98-107) mmol/L Carbon Dioxide 26 (22-30) mmol/L Anion Gap 10 mmol/L BUN 79 H (9-20) mg/dL Creatinine 2.06 H (0.66-1.25) mg/dL Est GFR (CKD-EPI)AfAm 37 (>60 ml/min/1.73 sqM) Est GFR (CKD-EPI)NonAf 32 (>60 ml/min/1.73 sqM) Glucose 173 H (74-99) mg/dL Lactic Ac Sepsis Rflx Plasma Lactic Acid [place] (0.7-2.0) mmol/L Calcium 9.7 (8.4-10.2) mg/dL Phosphorus 4.5 (2.5-4.5) mg/dL Magnesium 1.7 (1.6-2.3) mg/dL Total Bilirubin 0.6 (0.2-1.3) mg/dL AST 24 (17-59) U/L ALT 25 (4-49) U/L Alkaline Phosphatase 51 (38-126) U/L Ammonia (<30) umol/L Creatine Kinase 112 (55-170) U/L Troponin I (0.000-0.034) ng/mL NT-Pro-B Natriuret Pep pg/mL Total Protein 6.3 (6.3-8.2) g/dL Albumin 3.8 (3.5-5.0) g/dL TSH 2.430 (0.465-4.680) mIU/L Salicylates <1.0 mg/dL Acetaminophen <10.0 ug/mL Serum Alcohol <10 mg/dL 07/05/20 07/05/20 07/05/20 Range/Units 22:44 22:44 22:44 WBC (3.8-10.6) k/uL RBC (4.30-5.90) m/uL Hgb (13.0-17.5) gm/dL Hct (39.0-53.0) % MCV (80.0-100.0) fL MCH (25.0-35.0) pg MCHC (31.0-37.0) g/dL RDW (11.5-15.5) % Plt Count (150-450) k/uL MPV Neutrophils % % Lymphocytes % % Monocytes % % Eosinophils % % Basophils % % Neutrophils # (1.3-7.7) k/uL Lymphocytes # (1.0-4.8) k/uL Monocytes # (0-1.0) k/uL Eosinophils # (0-0.7) k/uL Basophils # (0-0.2) k/uL PT (9.0-12.0) sec INR (<1.2) APTT (22.0-30.0) sec Sodium (137-145) mmol/L Potassium (3.5-5.1) mmol/L Chloride (98-107) mmol/L Carbon Dioxide (22-30) mmol/L Anion Gap mmol/L BUN (9-20) mg/dL Creatinine (0.66-1.25) mg/dL Est GFR (CKD-EPI)AfAm (>60 ml/min/1.73 sqM) Est GFR (CKD-EPI)NonAf (>60 ml/min/1.73 sqM) Glucose (74-99) mg/dL Lactic Ac Sepsis Rflx Plasma Lactic Acid [place] 2.2 H* (0.7-2.0) mmol/L Calcium (8.4-10.2) mg/dL Phosphorus (2.5-4.5) mg/dL Magnesium (1.6-2.3) mg/dL Total Bilirubin (0.2-1.3) mg/dL AST (17-59) U/L ALT (4-49) U/L Alkaline Phosphatase (38-126) U/L Ammonia <9 (<30) umol/L Creatine Kinase (55-170) U/L Troponin I <0.012 (0.000-0.034) ng/mL NT-Pro-B Natriuret Pep 93 pg/mL Total Protein (6.3-8.2) g/dL Albumin (3.5-5.0) g/dL TSH (0.465-4.680) mIU/L Salicylates mg/dL Acetaminophen ug/mL Serum Alcohol mg/dL 07/05/20 Range/Units 23:16 WBC (3.8-10.6) k/uL RBC (4.30-5.90) m/uL Hgb (13.0-17.5) gm/dL Hct (39.0-53.0) % MCV (80.0-100.0) fL MCH (25.0-35.0) pg MCHC (31.0-37.0) g/dL RDW (11.5-15.5) % Plt Count (150-450) k/uL MPV Neutrophils % % Lymphocytes % % Monocytes % % Eosinophils % % Basophils % % Neutrophils # (1.3-7.7) k/uL Lymphocytes # (1.0-4.8) k/uL Monocytes # (0-1.0) k/uL Eosinophils # (0-0.7) k/uL Basophils # (0-0.2) k/uL PT (9.0-12.0) sec INR (<1.2) APTT (22.0-30.0) sec Sodium (137-145) mmol/L Potassium (3.5-5.1) mmol/L Chloride (98-107) mmol/L Carbon Dioxide (22-30) mmol/L Anion Gap mmol/L BUN (9-20) mg/dL Creatinine (0.66-1.25) mg/dL Est GFR (CKD-EPI)AfAm (>60 ml/min/1.73 sqM) Est GFR (CKD-EPI)NonAf (>60 ml/min/1.73 sqM) Glucose (74-99) mg/dL Lactic Ac Sepsis Rflx Y Plasma Lactic Acid [place] (0.7-2.0) mmol/L Calcium (8.4-10.2) mg/dL Phosphorus (2.5-4.5) mg/dL Magnesium (1.6-2.3) mg/dL Total Bilirubin (0.2-1.3) mg/dL AST (17-59) U/L ALT (4-49) U/L Alkaline Phosphatase (38-126) U/L Ammonia (<30) umol/L Creatine Kinase (55-170) U/L Troponin I (0.000-0.034) ng/mL NT-Pro-B Natriuret Pep pg/mL Total Protein (6.3-8.2) g/dL Albumin (3.5-5.0) g/dL TSH (0.465-4.680) mIU/L Salicylates mg/dL Acetaminophen ug/mL Serum Alcohol mg/dL - EKG Data -: EKG Interpreted by Me (EKG shows sinus rhythm 68 CT 160 QRS 92 QTC 4209) - Radiology Data Radiology results: report reviewed (CT brain C-spine chest x-ray negative for acute disease), image reviewed Disposition Clinical Impression: Weakness, Fall, Back pain Disposition: ADMITTED IP TO THIS HOSP Condition: Good Is patient prescribed a controlled substance at d/c from ED?: No
[2020-07-05 23:13] LABS: ALT 25 U/L (4-49); AST 24 U/L (17-59); Acetaminophen <10.0 ug/mL; African American GFR (CKD) 37 (>60 ml/min/1.73 sqM); Albumin 3.8 g/dL (3.5-5.0); Alcohol <10 mg/dL; Alkaline Phosphatase 51 U/L (38-126); Anion Gap 10 mmol/L; Blood Urea Nitrogen 79 mg/dL (9-20); Calcium 9.7 mg/dL (8.4-10.2); Carbon Dioxide 26 mmol/L (22-30); Chloride 98 mmol/L (98-107); Creatine Kinase 112 U/L (55-170); Glucose 173 mg/dL (74-99); Magnesium 1.7 mg/dL (1.6-2.3); Non-African American GFR(CKD) 32 (>60 ml/min/1.73 sqM); Phosphorus 4.5 mg/dL (2.5-4.5); Potassium 4.6 mmol/L (3.5-5.1); Salicylate <1.0 mg/dL; Sodium 134 mmol/L (137-145); Total Bilirubin 0.6 mg/dL (0.2-1.3); Total Protein 6.3 g/dL (6.3-8.2)
[2020-07-05 23:14] LABS: INR 0.9 (<1.2); Prothrombin Time 9.7 sec (9.0-12.0)
[2020-07-05 23:16] LABS: Lactic Acid, Venous 2.2 mmol/L (0.7-2.0)
--- NOTE | 2020-07-05 23:29 | CT ---
EXAMINATION TYPE: CT brain aubrey wo con DATE OF EXAM: 07/05/2020 COMPARISON: 06/18/2020 HISTORY: numerous falls today. pain. prior on PACS. CT DLP: 1839.1 mGycm Automated exposure control for dose reduction was used. There is mild cerebral atrophy. There is no mass effect nor midline shift. There is no sign of intrac ranial hemorrhage. Calvarium is intact. There is normal aeration of the mastoid sinuses. Skull base i s intact. Cervical vertebra have normal alignment. There is hypertrophic anterior osteophyte formation througho ut the cervical spine. The facet joints are intact. There is no compression fracture. Skull base is i ntact. IMPRESSION: Cerebral atrophy. No acute intracranial abnormality. No change. Hypertrophic degenerative disc changes in the cervical spine. No fracture. No change. There is eviden ce of some spinal stenosis in the lower cervical spine.
--- NOTE | 2020-07-06 | XR ---
EXAMINATION TYPE: XR chest 1V DATE OF EXAM: 07/05/2020 COMPARISON: 07/01/2020 HISTORY: Short of breath. Weakness. TECHNIQUE: Single view FINDINGS: There is some minimal atelectasis lateral left lung base. There is no heart failure. Heart size is normal. There are no hilar masses. There are chest leads. IMPRESSION: Mild subsegmental atelectasis lateral left lung base unchanged. Normal heart.
[2020-07-06] MEDS ORDERED: ONDANSETRON 4 MG/2 ML VIAL IVP PRN (00:46)
[2020-07-06] MEDS ORDERED: NALOXONE 0.4 MG/ML 1 ML VIAL IV PRN (00:46)
[2020-07-06] MEDS: MORPHINE SULFATE 4 MG/ML SYRINGE IV PRN ×5 (01:05→22:10)
[2020-07-06] MEDS: DEXTROSE 5%-0.45% NACL 1,000 ML IV SCH ×3 (01:07→22:14)
[2020-07-06 02:08] LABS: Appearance,Urine Clear (Clear); Bilirubin,Urine Negative (Negative); Blood,Urine Negative (Negative); Color,Urine Yellow; Glucose,Urine (UA) Negative (Negative); Ketones,Urine Negative (Negative); Leukocyte Esterase,Urine Trace (Negative); Nitrite,Urine Negative (Negative); Protein,Urine Negative (Negative); RBC,Urine 1 /hpf (0-5); Urobilinogen,Urine <2.0 mg/dL (<2.0); WBC,Urine 2 /hpf (0-5)
[2020-07-06 03:32] LABS: Glucose,Whole Blood 183 mg/dL (75-99)
[2020-07-06] MEDS ORDERED: SODIUM CHLORIDE 0.9% 500 ML 500 ML IV ONE (05:15)
[2020-07-06 07:27] LABS: Glucose,Whole Blood 163 mg/dL (75-99)
[2020-07-06] MEDS: DULoxetine HCL 60 MG CAPSULE.DR PO SCH (08:29)
[2020-07-06] MEDS: ASPIRIN 325 MG TAB PO SCH (08:29)
[2020-07-06] MEDS: METOPROLOL TARTRATE 50 MG TAB PO SCH ×3 (08:29→21:47)
[2020-07-06] MEDS ORDERED: metFORMIN 500 MG TAB PO SCH (09:00)
[2020-07-06] MEDS ORDERED: NON FORMULARY DRUG (Icosapent Ethyl [Vascepa] 0.5 GM Capsule) PO SCH (09:00)
[2020-07-06] MEDS ORDERED: LEVOFLOXACIN 750 MG TAB PO SCH (09:00)
[2020-07-06 11:33] LABS: Glucose,Whole Blood 182 mg/dL (75-99)
--- NOTE | 2020-07-06 15:27 | P.HPIM ---
History of Present Illness H&P Date: 07/06/20 Chief Complaint: Altered mental status with recurrent falls This 70 year old male lives alone and was recently discharged from the hospital on 07/02/2020 with home care after being admitted for recurrent falls and pain, he had a steroid injection to help with his pain and was given Levaquin for community aquired pneumonia, he was ambulatory and in no acute discharge upon d ischarge. He presented to the hospital after reporting he has had several falls at home since discharge, continuous vertigo, and increased weakness with delayed response, he is being admitted to the hospital as he has an acute kidney injury with BUN 79 and Creatinine 2.06, which is now trending down with fluid bolus and continuous IV infusion. He remains in no acute distress and placement to a ski lled facility has been in the plan as he has not been able to care for himself at home due to his ongoing falls, vertigo, and weakness. Review of Systems Constitutional: Reports as per HPI, Reports chronic pain, Reports weakness Neurological: Reports gait dysfunction, Reports vertigo Past Medical History Past Medical History: Atrial Fibrillation, Cancer, Diabetes Mellitus, GERD/Reflux, Hyperlipidemia, Hypertension, Memory Impairment, Osteoarthritis (OA), Pneumonia Additional Past Medical History / Comment(s): FELL 07/09/19 FX LT RADIUS, FREQUENT FALLS-REASON UNKNOWN. 03-10-16 FELL/FX RT FIBULA, VERTIGO , chronic headaches, BREAST CANCER History of Any Multi-Drug Resistant Organisms: CRE, MRSA Date of last positivie culture/infection: 02/2017 MDRO Source:: MRSA Past Surgical History: Back Surgery, Breast Surgery, Orthopedic Surgery Additional Past Surgical History / Comment(s): Bilateral mastectomy with right sided lymp node removal due to cancer, R knee cap removed, Back surgery for herniated disc., Brain stem surgery for decompression-for dizziness, right ankle ORIF, bilateral wrist fractures SX Past Anesthesia/Blood Transfusion Reactions: No Reported Reaction Past Psychological History: No Psychological Hx Reported Smoking Status: Former smoker, Never smoker Past Alcohol Use History: None Reported Additional Past Alcohol Use History / Comment(s): STARTED SMOKING AT AGE 18, SMOKE A PIPE GOES THRU A PACK OF PIPE TOBACCO/DAY quit smoking in 2005 Past Drug Use History: None Reported - Past Family History Father History Unknown: Yes Family Medical History: Congestive Heart Failure (CHF) Additional Family Medical History / Comment(s): at 68. Mother History Unknown: Yes Family Medical History: Hypertension Additional Family Medical History / Comment(s): Pulmonary hypertension. at 78. Medications and Allergies Home Medications Medication Instructions Recorded Confirmed Type DULoxetine HCL [Cymbalta] 30 mg PO HS 09/15/18 07/05/20 History metFORMIN HCL [Glucophage] 500 mg PO BID 12/17/18 07/05/20 History Baclofen [Lioresal] 20 mg PO BID PRN 05/09/19 07/05/20 History Gabapentin [Neurontin] 300 mg PO BID 07/09/19 07/05/20 History Metoprolol Tartrate [Lopressor] 50 mg PO TID 11/06/19 07/05/20 History lisinopriL 40 mg PO HS 11/06/19 07/05/20 History Aspirin EC [Ecotrin] 325 mg PO DAILY 06/18/20 07/05/20 History Atorvastatin [Lipitor] 40 mg PO HS 06/18/20 07/05/20 History Butalb/APAP/Caff 50-325-40Mg 1 tab PO TID PRN 06/18/20 07/05/20 History [Fioricet 50-325-40] DULoxetine HCL [Cymbalta] 60 mg PO DAILY 06/18/20 07/05/20 History Icosapent Ethyl [Vascepa] 2 gm PO BID 06/18/20 07/05/20 History Levofloxacin [Levaquin] 750 mg PO DAILY 7 Days #7 tab 07/01/20 07/05/20 Rx methylPREDNISolone Dose Pack See Taper PO DIRECTED 07/05/20 07/05/20 History [Medrol Dose Pack] traMADol HCl [Ultram] 50 - 100 mg PO Q6HR PRN 07/05/20 07/05/20 History Allergies Allergy/AdvReac Type Severity Reaction Status Date / Time cephalexin monohydrate Allergy Anaphylaxis Verified 06/18/20 14:07 [From Keflex] Cephalosporins Allergy Anaphylaxis Verified 06/18/20 14:07 Penicillins Allergy Anaphylaxis Verified 06/18/20 14:07 Physical Exam Vitals: Vital Signs Temp Pulse Pulse Resp BP BP BP 07/06/20 12:14 98.2 F 66 17 101/64 07/06/20 08:07 79 16 108/60 07/06/20 04:32 98.0 F 83 16 07/06/20 03:10 97.8 F 67 16 101/46 07/06/20 01:34 73 16 113/40 07/06/20 01:00 66 18 95/61 07/05/20 23:50 64 18 98/53 07/05/20 22:30 67 20 85/57 07/05/20 22:23 98.4 F 69 20 78/10 BP Pulse Ox 07/06/20 12:14 95 07/06/20 08:07 96 07/06/20 04:32 94/60 91 L 07/06/20 03:10 96 07/06/20 01:34 95 07/06/20 01:00 95 07/05/20 23:50 95 07/05/20 22:30 97 07/05/20 22:23 96 Intake and Output 07/06/20 07/06/20 07/06/20 06:59 14:59 22:59 Intake Total 240 Output Total 600 Balance -600 240 Intake: Oral 240 Output: Urine 600 Other: Voiding Method Urinal Weight 127.006 kg - Constitutional General appearance: disheveled, no acute distress, obese - EENT ENT: hearing grossly normal Ears: bilateral: normal - Respiratory Respiratory: bilateral: diminished - Cardiovascular Rhythm: regular - Gastrointestinal General gastrointestinal: normal bowel sounds, soft - Integumentary Integumentary: normal - Musculoskeletal Musculoskeletal: generalized weakness - Psychiatric Psychiatric: A&O x's 3 Results CBC & Chem 7: 07/05/20 22:44 07/05/20 22:44 Labs: Abnormal Lab Results - Last 24 Hours (Table) 07/05/20 07/05/20 07/05/20 Range/Units 22:44 22:44 22:44 WBC 16.8 H (3.8-10.6) k/uL Neutrophils # 14.0 H (1.3-7.7) k/uL Sodium 134 L (137-145) mmol/L BUN 79 H (9-20) mg/dL Creatinine 2.06 H (0.66-1.25) mg/dL Glucose 173 H (74-99) mg/dL POC Glucose (mg/dL) (75-99) mg/dL Plasma Lactic Acid Balaji 2.2 H* (0.7-2.0) mmol/L Ur Leukocyte Esterase (Negative) 07/06/20 07/06/20 07/06/20 Range/Units 01:26 03:31 07:26 WBC (3.8-10.6) k/uL Neutrophils # (1.3-7.7) k/uL Sodium (137-145) mmol/L BUN (9-20) mg/dL Creatinine (0.66-1.25) mg/dL Glucose (74-99) mg/dL POC Glucose (mg/dL) 183 H 163 H (75-99) mg/dL Plasma Lactic Acid Balaji (0.7-2.0) mmol/L Ur Leukocyte Esterase Trace H (Negative) 07/06/20 Range/Units 11:32 WBC (3.8-10.6) k/uL Neutrophils # (1.3-7.7) k/uL Sodium (137-145) mmol/L BUN (9-20) mg/dL Creatinine (0.66-1.25) mg/dL Glucose (74-99) mg/dL POC Glucose (mg/dL) 182 H (75-99) mg/dL Plasma Lactic Acid Balaji (0.7-2.0) mmol/L Ur Leukocyte Esterase (Negative) Thrombosis Risk Factor Assmnt - Choose All That Apply Any of the Below Risk Factors Present?: Yes Each Factor Represents 1 point: Medical pt on bed rest, Obesity (BMI >25) Other Risk Factors: Yes Each Risk Factor Represents 2 Points: Age 61-74 years Thrombosis Risk Factor Assessment Total Risk Factor Score: 4 Thrombosis Risk Factor Assessment Level: Moderate Risk Assessment and Plan Assessment: Weakness Altered mental status change Acute Kidney Injury due to dehydration Recurrent Falls Chronic pain due to osteoarthritis Chronic continuous vertigo status post surgery x 2 follows up with [facility] Diabetes Mellitus type II with hyperglycemia Hypertension Memory Impairment Chronic Headaches History of Breast Cancer status post surgery bilateral mastectomy with right side lymph node removal Obesity BMI 34.1 (1) Weakness Current Visit: Yes Status: Acute Code(s): R53.1 - WEAKNESS SNOMED Code(s): 78602978 Plan: Continue with medications as prescribed Continue with orthopedic consultation for recommendation and plan Continue with neurology consultation for recommendation and plan Continue PT/OT Continue to plan for discharge to skilled facility
[2020-07-06 16:16] LABS: African American GFR (CKD) 78 (>60 ml/min/1.73 sqM); Anion Gap 6 mmol/L; Blood Urea Nitrogen 48 mg/dL (9-20); Calcium 8.7 mg/dL (8.4-10.2); Carbon Dioxide 25 mmol/L (22-30); Chloride 102 mmol/L (98-107); Glucose 214 mg/dL (74-99); Non-African American GFR(CKD) 67 (>60 ml/min/1.73 sqM); Sodium 133 mmol/L (137-145)
[2020-07-06 16:21] LABS: Potassium 4.9 mmol/L (3.5-5.1)
[2020-07-06 17:07] LABS: Glucose,Whole Blood 266 mg/dL (75-99)
--- NOTE | 2020-07-06 17:30 | P.CNNES ---
History of Present Illness Consult date: 07/06/20 Requesting physician: Lars Shah Reason for Consult: dizziness and lower extremity weakness History of Present Illness: This is a 70-year-old gentleman with history of benign positional vertigo s/p decompression, diabetes mellitus, paroxysmal atrial fibrillation on eliquis, hypertension, chronic opiate therapy who presented to the hospital regarding several falls at home and continues to has dizziness. The patient said that the his falls has been going on for a while for at least 2 years. She stated that the when he stands up and starts walking he'll feel dizzy and then the he'll have a falling episode and does not lose consciousness. There is times that he does not have dizziness and his legs just give out. He denies any ringing in the ears or hearing loss. He does have chronic lower back pain on the on the right side radiates down to on the lateral side to the right knee while the on the left the back pain radiates on the anterior side all the way to the foot. He has the pain he has some numbness over the right the lower extremity at. Denies any bladder or bowel incontinence. He did state that the regarding this back pain he sees orthopedic and in the past that they recently gave him the p ain injection initially he was told he is getting get the surgery but then the he received pain injection and that hasn't been helping. Regarding his dizziness he had history of benign positional vertigo and he had craniotomy about 10 years ago at [facility] then he had another surgery for the benign positional vertigo and he stated in his own words craniotomy of the right occipital at [facility] 2 years ago. He was referred to [facility] regarding this benign positional vertigo and he is followed up with a neurosurgeon there he stated that he is getting Some imaging done and will follow-up over at the [facility]. He said that he will get an EMG with nerve conduction study over at the Dr. Hamron office but needs to be schedule. Patient home medication is aspirin 325, Lipitor 40 mg, baclofen 20 mg 1 tablet twice a day when necessary. Patient is on Fioricet, Cymbalta, gabapentin 300 mg 1 tablet twice a day, list temporal 40 mg daily at bedtime, metoprolol 50 mg 1 tablet 3 times a day, methylprednisolone Dosepak and the tramadol. Workup in the hospital consisted of: Initial vital signs is blood pressure of 78/10, heart rate of 69, respiratory rate 20, temperature of 98.4 Fahrenheit oral pulse ox 96. Repeated blood pressure systolic was in the 80s to 90s and diastolic is in the 50s to 60s which is low. Most recent blood pressures are in the systolic in the 100s diastolic in the 60s CT of the head is reported as cerebral atrophy. No acute intracranial abnormality. No change. CT of the cervical spine is a reported as hypertrophic degenerative disc change in the cervical spine. No fracture. No change. There is evidence of some spinal stenosis in the lower cervical spine. Initial white blood cells 16.8. Initial sodium was 134 was mildly low. The BUN 70 on the creatinine is 2.06. Initial serum glucose was 173 which is elevated. Calcium is 9.7 which is normal. TSH is 2.43 which is normal. AST is 24 and ALTs 25 which is normal ammonia is less than 9 which is normal. Upon reviewing the patient's images seem to the patient has previous surgery involving the right occipital lobe and that even reported on the 06/18/2020 report. Also on the previous CT cervical spine on 06/18/2020 it is reported as multilevel severe degenerative disc disease and hypertrophic spurring with multilevel canal stenosis, facet arthropathy and for mineral and Motrin suspected. Recommend follow-up MRI. Also on the previous CT of the brain on the 07/09/2019 is reported as age- related atrophic and chronic small vessel ischemic change without intracranial process seen at this time. There is osseous cleft varum is free of fracture. The right occipital craniotomy changes. Patient had an EEG on 2019 and is reported as an abnormal EEG due to generalized slowing of the background, intermittent, at least moderate degree. This is suggestive of generalized cerebral dysfunction as can be seen with toxic metabolic encephalopathy or due to diffuse structural brain abnormality. No definite epileptiform activity was seen. The EKG channel reveals significant arrhythmia. Clinical correlation recommended. MRI lumbar spine and sacrum (06/24/2020) is reported as broad-based disc bulge L4-L5 with mild anterior thecal sac flattening. Mild to moderate bilateral form in her narrowing L4-L5. Milder for mineral narrowing as discussed above. Small left paracentral protrusion has some mild anterior thecal sac impression L1 to L2. Normal sacrum. MR the brain on 05-09 is reported as post procedural changes. On reviewing the patient medical record seems that the patient was seen by different neuro-hospitalist in our facility and was last seen by (Dr. Ami Keith for dizziness. Is noted to the patient the head benign positional vertigo which is chronic and underwent neurosurgical decompression for at [facility]. It seems the patient has history of chronic opiate therapy. It seems that the patient the episode dizziness was in the setting of hypertension around that evaluation. Also with suspected for both obstructive and central sleep apnea in the setting of chronic opiate therapy, morbid obesity. Review of Systems Review of system: The 12 point system was reviewed and apparent positive and negative per HPI. Past Medical History Past Medical History: Atrial Fibrillation, Cancer, Diabetes Mellitus, GERD/Reflux, Hyperlipidemia, Hypertension, Memory Impairment, Osteoarthritis (OA), Pneumonia Additional Past Medical History / Comment(s): FELL 07/09/19 FX LT RADIUS, FREQUENT FALLS-REASON UNKNOWN. 03-10-16 FELL/FX RT FIBULA, VERTIGO , chronic headaches, BREAST CANCER History of Any Multi-Drug Resistant Organisms: CRE, MRSA Date of last positivie culture/infection: 02/2017 MDRO Source:: MRSA Past Surgical History: Back Surgery, Breast Surgery, Orthopedic Surgery Additional Past Surgical History / Comment(s): Bilateral mastectomy with right sided lymp node removal due to cancer, R knee cap removed, Back surgery for herniated disc., Brain stem surgery for decompression-for dizziness, right ankle ORIF, bilateral wrist fractures SX Past Anesthesia/Blood Transfusion Reactions: No Reported Reaction Past Psychological History: No Psychological Hx Reported Smoking Status: Former smoker, Never smoker Past Alcohol Use History: None Reported Additional Past Alcohol Use History / Comment(s): STARTED SMOKING AT AGE 18, SMOKE A PIPE GOES THRU A PACK OF PIPE TOBACCO/DAY quit smoking in 2005 Past Drug Use History: None Reported - Past Family History Father History Unknown: Yes Family Medical History: Congestive Heart Failure (CHF) Additional Family Medical History / Comment(s): at 68. Mother History Unknown: Yes Family Medical History: Hypertension Additional Family Medical History / Comment(s): Pulmonary hypertension. at 78. Medications and Allergies Home Medications Medication Instructions Recorded Confirmed Type DULoxetine HCL [Cymbalta] 30 mg PO HS 09/15/18 07/05/20 History metFORMIN HCL [Glucophage] 500 mg PO BID 12/17/18 07/05/20 History Baclofen [Lioresal] 20 mg PO BID PRN 05/09/19 07/05/20 History Gabapentin [Neurontin] 300 mg PO BID 07/09/19 07/05/20 History Metoprolol Tartrate [Lopressor] 50 mg PO TID 11/06/19 07/05/20 History lisinopriL 40 mg PO HS 11/06/19 07/05/20 History Aspirin EC [Ecotrin] 325 mg PO DAILY 06/18/20 07/05/20 History Atorvastatin [Lipitor] 40 mg PO HS 06/18/20 07/05/20 History Butalb/APAP/Caff 50-325-40Mg 1 tab PO TID PRN 06/18/20 07/05/20 History [Fioricet 50-325-40] DULoxetine HCL [Cymbalta] 60 mg PO DAILY 06/18/20 07/05/20 History Icosapent Ethyl [Vascepa] 2 gm PO BID 06/18/20 07/05/20 History Levofloxacin [Levaquin] 750 mg PO DAILY 7 Days #7 tab 07/01/20 07/05/20 Rx methylPREDNISolone Dose Pack See Taper PO DIRECTED 07/05/20 07/05/20 History [Medrol Dose Pack] traMADol HCl [Ultram] 50 - 100 mg PO Q6HR PRN 07/05/20 07/05/20 History Allergies Allergy/AdvReac Type Severity Reaction Status Date / Time cephalexin monohydrate Allergy Anaphylaxis Verified 06/18/20 14:07 [From Keflex] Cephalosporins Allergy Anaphylaxis Verified 06/18/20 14:07 Penicillins Allergy Anaphylaxis Verified 06/18/20 14:07 Physical Examination - Vital Signs Vital Signs: Vital Signs Temp Pulse Pulse Resp BP BP BP 07/06/20 12:14 98.2 F 66 17 101/64 07/06/20 08:07 79 16 108/60 07/06/20 04:32 98.0 F 83 16 07/06/20 03:10 97.8 F 67 16 101/46 07/06/20 01:34 73 16 113/40 07/06/20 01:00 66 18 95/61 07/05/20 23:50 64 18 98/53 04/12/21 22:30 67 20 85/57 04/12/21 22:23 98.4 F 69 20 78/10 BP Pulse Ox 07/06/20 12:14 95 07/06/20 08:07 96 07/06/20 04:32 94/60 91 L 07/06/20 03:10 96 07/06/20 01:34 95 07/06/20 01:00 95 07/05/20 23:50 95 07/05/20 22:30 97 07/05/20 22:23 96 Intake and Output 07/06/20 07/06/20 07/06/20 06:59 14:59 22:59 Intake Total 240 Output Total 600 Balance -600 240 Intake: Oral 240 Output: Urine 600 Other: Voiding Method Urinal Weight 127.006 kg GENERAL: The patient is lying in bed and is not in acute distress. CHEST: The heart rate is regular rate rhythm. No murmurs to auscultation. LUNG: Clear to auscultation bilaterally no wheezing noted throughout. Not labored breathing. ABDOMEN/GI: Bowel sounds present in all 4 quadrants. No tenderness to palpation throughout. NEUROLOGICAL: Higher mental function: The patient is awake, alert, oriented to self, place and time. Patient is following commands. No aphasia and no neglect. Cranial nerves: The pupils are round, equal and reactive to light and accom modation. Visual bishop are full to confrontation throughout. Extraocular movement is intact no nystagmus is noted. Facial sensation is normal to touch throughout. The facial strength is normal throughout. Hearing is normal bilaterally to hand rub. Tongue is midline and moved [id number] without any difficulty. No dysarthria is noted. Shoulder shrug is normal bilaterally. Motor: Gait is deferred because of patient's pain. The strength in upper extremities is 4+ to 5- over bilateral upper extremities. While lower he is able to lift above gravity but limited because of pain. Normal tone and bulk. Cerebellum: Normal finger to nose bilaterally. Sensation: Sensation is normal to touch throughout. Reflexes (right/left): 1+ Plantars are downgoing bilaterally. Results Urinalysis is negative for urinary tract infection. Toxicology as the salicylates is less than 1.0, acetaminophen less than 10 and the serum alcohol was less than 10. Pantoja virus PCR is nondetected. - Laboratory Findings CBC and BMP: 07/05/20 22:44 07/06/20 15:19 Abnormal Lab Findings: Abnormal Labs 07/05/20 07/05/20 07/05/20 22:44 22:44 22:44 WBC 16.8 H Neutrophils # 14.0 H Sodium 134 L BUN 79 H Creatinine 2.06 H Glucose 173 H POC Glucose (mg/dL) Plasma Lactic Acid Balaji 2.2 H* Ur Leukocyte Esterase 07/06/20 07/06/20 07/06/20 01:26 03:31 07:26 WBC Neutrophils # Sodium BUN Creatinine Glucose POC Glucose (mg/dL) 183 H 163 H Plasma Lactic Acid Balaji Ur Leukocyte Esterase Trace H 07/06/20 11:32 WBC Neutrophils # Sodium BUN Creatinine Glucose POC Glucose (mg/dL) 182 H Plasma Lactic Acid Balaji Ur Leukocyte Esterase Assessment and Plan Assessment: This is a 70-year-old gentleman that presented to the hospital because of recurrent falls and continues to have dizziness. Recurrent Chronic vertigo and is seems likely that component is due to hypotension and the systolic blood pressure was in the 70s to 80s on pre sentation (she is on multiple blood pressure medication) Recurrent falls possibly due to above and possibly component from lumbar spinal spondylosis due to weakness in legs as well diabetic neuropathy benign positional vertigo s/p decompression (right occipital region) multilevel severe cervical degenerative disc disease and hypertrophic spurring with multilevel canal stenosis Mild to moderate bilateral form in her narrowing L4-L5. 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 I recommend modified the blood pressure medication to avoid any hypotensive episode which can cause dizziness as well as falls. All defer that to the pr imary team. Patient was started on morphine 4 mg IV every 4 hours and I would recommend to avoid any narcotics/opiates that would increase risk for falls. hemoglobin A1c (7.2 on 04/02/20 and prior to that in 2019 was 6.2) Recommend strict control of diabetes and will defer management primary team. I ordered vitamin B-12, folate, vitamin B6 to rule out any neuropathy as a contributing factor. Physical therapy and occupation therapy are consulted. Orthopedic surgery team is consulted for lower back pain. Patient stated that he will get an EMG with nerve conduction study as an outpatient (with Dr. Harmon) and unsure when. Regarding his benign positional vertigo with history of decompression the patient is following-up with [facility]. The plan is discussed with the patient's nurse. Thank you for the consultation. Kareem Linder M.D. Neuro-hospitalist Time with Patient: Greater than 30
[2020-07-06 20:33] LABS: Glucose,Whole Blood 245 mg/dL (75-99)
[2020-07-06] MEDS ORDERED: ATORVASTATIN 40 MG TAB PO SCH (21:00)
[2020-07-06] MEDS ORDERED: DULoxetine HCL 30 MG CAPSULE.DR PO SCH (21:00)
[2020-07-06] MEDS: INSULIN ASPART (NovoLOG) 100 UNIT/ML VIAL SQ SCH (21:47)
[2020-07-06] MEDS: SODIUM CHLORIDE 0.9% 1,000 ML IV SCH (22:12)
[2020-07-07] MEDS: MORPHINE SULFATE 4 MG/ML SYRINGE IV PRN ×3 (02:02→09:50)
[2020-07-07 07:01] LABS: Glucose,Whole Blood 186 mg/dL (75-99)
[2020-07-07 07:09] LABS: Basophils % (A) 0 %; Eosinophils # (A) 0.1 k/uL (0-0.7); Eosinophils % (A) 1 %; HCT 36.3 % (39.0-53.0); HGB 12.8 gm/dL (13.0-17.5); Lymphocytes # (A) 1.5 k/uL (1.0-4.8); Lymphocytes % (A) 11 %; MCH 33.2 pg (25.0-35.0); MCHC 35.3 g/dL (31.0-37.0); Mean Platelet Volume 7.7; Monocytes # (A) 0.8 k/uL (0-1.0); Monocytes % (A) 6 %; Neutrophils # (A) 10.6 k/uL (1.3-7.7); Neutrophils % (A) 81 %; Platelet Count 128 k/uL (150-450); RBC 3.86 m/uL (4.30-5.90); RDW 12.1 % (11.5-15.5); WBC 13.1 k/uL (3.8-10.6)
[2020-07-07] MEDS ORDERED: BUTALB/APAP/CAFF 50-325-40MG TAB PO PRN (08:55)
[2020-07-07] MEDS ORDERED: BACLOFEN 10 MG TAB PO PRN (08:55)
[2020-07-07] MEDS ORDERED: GABAPENTIN 300 MG CAP PO SCH (09:00)
--- NOTE | 2020-07-07 09:09 | P.PN ---
Subjective Progress Note Date: 07/07/20 Principal diagnosis: Altered mental status Acute kidney injury Recurrent falls Intractable back pain 70-year-old male with significant medical history of a hypertension, hyperlipidemia, diabetes mellitus, history of paroxysmal atrial fibrillation, memory impairment, osteoarthritis, pneumonia, recurrent falls, history of bilateral mastectomy with right-sided lymph node removal due to cancer, history of brain stem surgery for decompression for dizziness, history of right ankle ORIF, history of bilateral wrist wrist fractures, and chronic back pain. Patient was admitted to the hospital for recurrent falls with acute kidney injury. Evaluation patient today patient resting comfortably in bed, moving all extremities with pain and discomfort. Kidney function has normalized with IV hydration. Neurology and orthopedic have evaluated patient and cleared for discharge. Possible discharge to [facility] for rehabilitation. Patient agreeable to treatment plan and care plan Objective - Vital Signs Vital signs: Vital Signs Temp 100.5 F H 07/07/20 05:01 Pulse 88 07/07/20 05:01 Resp 18 07/07/20 05:01 BP 110/63 07/07/20 05:01 Pulse Ox 96 07/07/20 05:01 Intake & Output 07/06/20 07/07/20 07/07/20 18:59 06:59 18:59 Intake Total 240 750 Output Total 800 1200 Balance -560 -450 Intake: Intake, IV Titration 750 Amount Sodium Chloride 0.9% 1, 750 000 ml @ 75 mls/hr IV . [id number] [facility] Rx#:[id number] Oral 240 Output: Urine 800 1200 Other: Voiding Method Toilet Toilet Urinal Urinal - Constitutional General appearance: Present: mild distress - EENT Eyes: Present: EOMI, PERRLA Ears: bilateral: normal - Neck Carotids: bilateral: upstroke normal Thyroid: bilateral: normal size - Respiratory Respiratory: bilateral: CTA (Anterior and posterior lung bishop) - Cardiovascular Details: Normal sinus rhythm Heart rate: 74 Rhythm: regular Heart sounds: normal: S1, S2 - Peripheral pulses radial pulse Peripheral Pulses: bilateral: Normal dorsalis pedis Peripheral Pulses: bilateral: Normal - Gastrointestinal General gastrointestinal: Present: normal bowel sounds - Integumentary Integumentary: Present: pale - Neurologic Neurologic: Present: CNII-XII intact - Musculoskeletal Musculoskeletal: Present: generalized weakness - Psychiatric Psychiatric: Present: A&O x's 3, appropriate affect, intact judgment & insight - Allied health notes Allied health notes reviewed: nursing - Labs CBC & Chem 7: 07/07/20 06:39 07/06/20 15:19 Labs: Abnormal Lab Results - Last 24 Hours (Table) 07/06/20 07/06/20 07/06/20 Range/Units 11:32 15:19 17:05 WBC (3.8-10.6) k/uL RBC (4.30-5.90) m/uL Hgb (13.0-17.5) gm/dL Hct (39.0-53.0) % Plt Count (150-450) k/uL Neutrophils # (1.3-7.7) k/uL Sodium 133 L (137-145) mmol/L BUN 48 H (9-20) mg/dL Glucose 214 H (74-99) mg/dL POC Glucose (mg/dL) 182 H 266 H (75-99) mg/dL 07/06/20 07/07/20 07/07/20 Range/Units 20:32 06:39 07:00 WBC 13.1 H (3.8-10.6) k/uL RBC 3.86 L (4.30-5.90) m/uL Hgb 12.8 L (13.0-17.5) gm/dL Hct 36.3 L (39.0-53.0) % Plt Count 128 L (150-450) k/uL Neutrophils # 10.6 H (1.3-7.7) k/uL Sodium (137-145) mmol/L BUN (9-20) mg/dL Glucose (74-99) mg/dL POC Glucose (mg/dL) 245 H 186 H (75-99) mg/dL Assessment and Plan Assessment: Acute kidney injury Generalized weakness Recurrent falls Chronic pain due to osteoarthritis Chronic continue vertigo status post surgery 2 follows up with [facility] Diabetes mellitus type 2 Hypertension Memory impairment Chronic headaches History of breast cancer status post surgery bilateral mastectomy right-sided lymphoma removed Obesity with BMI 31.4 Plan: Acute kidney injury hold nephrotoxic drugs continue IV hydrationresolved this a.m. will continue gabapentin and baclofen Transient hypotension we will hold lisinopril at this time Chronic back pain analgesics as needed we'll continue gabapentin and baclofenconsult with orthopedic and neurology due to generalized weakness and chronic pain Physical therapy and occupational therapy Continue to monitor vital signs and diagnostic labs Continue medical management Possible discharge to [facility] for rehabilitation Time with Patient: Greater than 30
--- NOTE | 2020-07-07 09:33 | P.CNOR ---
History of Present Illness - [facility] Consult date: 07/07/20 Consult reason: low back pain History of present illness: Patient is a 70-year-old male who was admitted to [facility] due to continuation of dizziness, weakness and frequent falls. Patient was r ecently admitted to the hospital within the last week for the same problems. He underwent an extensive workup at that time. Patient was then discharged home with home care, since being home he had 4 different falls in the same day, he then returned to the hospital for further evaluation. Patient was then admitted under the internal medicine group with multiple consults placed orthopedics and neurology. At the patient's last visit, a lumbar spine MRI revealed degenerative changes throughout the lumbar spine, there were foraminal changes noted at the L2-L3 level. We recommended a possible foraminal cortisone injection by pain management, the patient did undergo this. Patient hasn't noticed any improvement in his symptoms since then. On his most recent visit, a computed tomography scan of the head/cervical spine was done. Images demonstrated no acute fractures or dislocations. Images did demonstrate multilevel cervical spondylosis. Reports mentioned stenosis at the lower levels of the cervical spine. Patient was evaluated by neurology yesterday. Multiple lab tests were ordered to evaluate other possible causes of neuropathy. They seem concerned with the narcotics that are on board with the patient along with his blood pressure and blood pressure medication. They did recommend his blood pressure medications to be evaluated by internal medicine. Patient also has been known history of vertigo, orthostatics also have been ordered for the patient during this stay. Patient has been evaluated and treated for his vertigo or [facility]. Patient was examined today at bedside, he is sitting upright. Patient is a very poor historian when it comes to explaining his symptoms. He has a very difficult time describing the pain that he mentions varies from his low back to his legs to his feet. At this time he is having no significant discomfort of the cervical and thoracic spine. He notes occasional discomfort there. He's noticed no francoise weakness, shooting pain, numbness or tingling of the bilateral upper extremities. Currently he describes more pain involving the right lower extremity, also weakness. During his most recent fall he did land on the right knee. During most of the exam he continues to explaining the pain surrounding the knee. Again it was very difficult to achieve our review of systems with regards to the pain and weakness in the lower extremities. Review of Systems Constitutional: Reports as per HPI Past Medical History Past Medical History: Atrial Fibrillation, Cancer, Diabetes Mellitus, GERD/Reflux, Hyperlipidemia, Hypertension, Memory Impairment, Osteoarthritis (OA), Pneumonia Additional Past Medical History / Comment(s): FELL 07/09/19 FX LT RADIUS, FREQUENT FALLS-REASON UNKNOWN. 03-10-16 FELL/FX RT FIBULA, VERTIGO , chronic headaches, BREAST CANCER History of Any Multi-Drug Resistant Organisms: CRE, MRSA Year Discovered:: 02/2017 MDRO Source:: MRSA Past Surgical History: Back Surgery, Breast Surgery, Orthopedic Surgery Additional Past Surgical History / Comment(s): Bilateral mastectomy with right sided lymp node removal due to cancer, R knee cap removed, Back surgery for herniated disc., Brain stem surgery for decompression-for dizziness, right ankle ORIF, bilateral wrist fractures SX Past Anesthesia/Blood Transfusion Reactions: No Reported Reaction Past Psychological History: No Psychological Hx Reported Smoking Status: Former smoker, Never smoker Past Alcohol Use History: None Reported Additional Past Alcohol Use History / Comment(s): STARTED SMOKING AT AGE 18, SMOKE A PIPE GOES THRU A PACK OF PIPE TOBACCO/DAY quit smoking in 2005 Past Drug Use History: None Reported - Past Family History Father History Unknown: Yes Family Medical History: Congestive Heart Failure (CHF) Additional Family Medical History / Comment(s): at 68. Mother History Unknown: Yes Family Medical History: Hypertension Additional Family Medical History / Comment(s): Pulmonary hypertension. at 78. Medications and Allergies Home Medications Medication Instructions Recorded Confirmed Type DULoxetine HCL [Cymbalta] 30 mg PO HS 09/15/18 07/05/20 History metFORMIN HCL [Glucophage] 500 mg PO BID 12/17/18 07/05/20 History Baclofen [Lioresal] 20 mg PO BID PRN 05/09/19 07/05/20 History Gabapentin [Neurontin] 300 mg PO BID 07/09/19 07/05/20 History Metoprolol Tartrate [Lopressor] 50 mg PO TID 11/06/19 07/05/20 History lisinopriL 40 mg PO HS 11/06/19 07/05/20 History Aspirin EC [Ecotrin] 325 mg PO DAILY 06/18/20 07/05/20 History Atorvastatin [Lipitor] 40 mg PO HS 06/18/20 07/05/20 History Butalb/APAP/Caff 50-325-40Mg 1 tab PO TID PRN 06/18/20 07/05/20 History [Fioricet 50-325-40] DULoxetine HCL [Cymbalta] 60 mg PO DAILY 06/18/20 07/05/20 History Icosapent Ethyl [Vascepa] 2 gm PO BID 06/18/20 07/05/20 History Levofloxacin [Levaquin] 750 mg PO DAILY 7 Days #7 tab 07/01/20 07/05/20 Rx methylPREDNISolone Dose Pack See Taper PO DIRECTED 07/05/20 07/05/20 History [Medrol Dose Pack] traMADol HCl [Ultram] 50 - 100 mg PO Q6HR PRN 07/05/20 07/05/20 History Allergies Allergy/AdvReac Type Severity Reaction Status Date / Time cephalexin monohydrate Allergy Anaphylaxis Verified 06/18/20 14:07 [From Keflex] Cephalosporins Allergy Anaphylaxis Verified 06/18/20 14:07 Penicillins Allergy Anaphylaxis Verified 06/18/20 14:07 Physical Examination Gen: AOx3, NAD VSS stable at this time Integument: No obvious skin changes, including erythema, soft tissue wounds, swelling or appreciated throughout the cervical, thoracic, lumbar spine, bilateral lower extremities Palpation: Nontender with palpation to the midline or paraspinal region of the cervical, thoracic and lumbar area. Patient is very hypersensitive to touch throughout the bilateral lower extremities both anteriorly and posteriorly. His compartments were all soft and compressible. Most of the pain reproducible palpation is surrounding the right knee. Her soft, bilaterally no tenderness with palpation ROM: For range of motion of all major muscle groups in the bilateral upper extremities Limited range of motion with regards to bilaterall lower extremities when testing hip flexion, knee extension and knee flexion. Range of motion is intact with plantar flexion, dorsiflexion, EHL, FHL Sensory Exam: Senory exam to light touch is intact C5-T1 Senosry exam to light touch is intact L2-S1 Motor: 5 out of 5 strength appreciated bilaterally with shoulder abduction, forward elevation, elbow extension, elbow flexion, wrist extension, wrist flexion. 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 Difficult to assess strength with hip flexion, knee extension, knee flexion due to pain Reflexes: 2/4 in all UE and LE Negative Norris's bilaterally Negative Babinski bilaterally Negative clonus bilaterally Special Test: Logroll maneuver reproduces no pain in the bilateral lower extremities Results - Labs Labs: Abnormal Lab Results - Last 24 Hours (Table) 07/06/20 07/06/20 07/06/20 Range/Units 11:32 15:19 17:05 WBC (3.8-10.6) k/uL RBC (4.30-5.90) m/uL Hgb (13.0-17.5) gm/dL Hct (39.0-53.0) % Plt Count (150-450) k/uL Neutrophils # (1.3-7.7) k/uL Sodium 133 L (137-145) mmol/L BUN 48 H (9-20) mg/dL Glucose 214 H (74-99) mg/dL POC Glucose (mg/dL) 182 H 266 H (75-99) mg/dL 07/06/20 07/07/20 07/07/20 Range/Units 20:32 06:39 07:00 WBC 13.1 H (3.8-10.6) k/uL RBC 3.86 L (4.30-5.90) m/uL Hgb 12.8 L (13.0-17.5) gm/dL Hct 36.3 L (39.0-53.0) % Plt Count 128 L (150-450) k/uL Neutrophils # 10.6 H (1.3-7.7) k/uL Sodium (137-145) mmol/L BUN (9-20) mg/dL Glucose (74-99) mg/dL POC Glucose (mg/dL) 245 H 186 H (75-99) mg/dL H & H 07/05/20 07/07/20 Range/Units 22:44 06:39 Hgb 14.5 12.8 L (13.0-17.5) gm/dL Hct 45.6 36.3 L (39.0-53.0) % Coagulation 07/05/20 Range/Units 22:44 INR 0.9 (<1.2) Result Diagrams: 07/07/20 06:39 07/06/20 15:19 - Diagnostic results Knee x-ray: other (X-rays of the right knee were ordered) Assessment and Plan Assessment: Bilateral lower extremity pain Bilateral lower extremity weakness Right knee pain Multilevel cervical spondylosis Multilevel lumbar spondylosis with mild foraminal stenosis at L2-L3 History of recent falls Multiple medical comorbidities Plan: I was able to discuss the case, including with physical exam findings and imaging studies my attending Dr. Anderson. No emergent orthopedic surgical intervention recommended at this time. X-rays were ordered of the right knee for further evaluation At this time is very difficult to determine the exact cause of the patient's weakness and pain in the lower extremities. Patient has multiple medical comorbidities that may be contributory. When reviewing neurology's input, they are recommending alteration of the blood pressure medications along with avoiding narcotics to help with his low blood pressure and possible contracture to her factors for the dizziness and falling. They also did mention patient is having an EMG done at some point in the outpatient setting of the bilateral lower extremities. When reviewing his most recent lumbar and cervical films, there continues to be no emergent need for surgical intervention. Would recommend follow-up in the outpatient setting for further workup and discussion of more conservative options. This to include different medications and physical therapy. Internal medicine is planning for discharge to rehab, patient would benefit from subacute rehab stay with daily physical therapy to improve his overall medical state We will be available for any further questions regarding this patient Time with Patient: Less than 30
--- NOTE | 2020-07-07 09:42 | P.DS ---
Providers Date of admission: 07/06/20 00:47 Expected date of discharge: 07/07/20 Attending physician: Damon Rodriguez Consults: 07/06/20 08:12 Consult Physician Routine Consulting Provider: Finn Andersen Consult Reason/Comments: back pain Do you want consulting provider notified?: Yes 07/06/20 08:13 Consult Physician Routine Consulting Provider: Kareem Linder Consult Reason/Comments: vertigo/lower extremity weakness Do you want consulting provider notified?: Yes Primary care physician: Damon Rodriguez Hospital Course: 70-year-old male with significant medical history of hypertension, hyperlipidemia diabetes mellitus type 2, history of proximal atrial fibrillation, memory impairment osteoarthritis, pneumonia recurrent falls, history of bilateral mastectomy right-sided lymph node removal due to cancer, history of brainstem surgery for decompression for dizziness, history of right ankle ORIF, history of bilateral wrist fractures, chronic back pain due to osteoarthritis. he was admitted to the hospital for recurrent falls with acute kidney injurynephrotoxic drugs were held with IV hydration normalized kidney function patient was evaluated by neurology and orthopedic's okay for discharge to half-way facility of [facility] for recurrent falls due to generalized weakness. patient tolerated IV hydration for acute kidney injury and Carmen analgesics as needed for pain intensity. Patient will be initiated back on lisinopril at reduced dose of 20 mg and analgesics of gabapentin, and baclofen. Recommended repeat CBC and BMP within 3 days .patient stable for discharge to [facility] for rehabilitation Assessment: Acute kidney injury Generalized weakness Recurrent falls Chronic pain due to osteoarthritis Chronic continue vertigo status post surgery 2 follows up with [facility] neurosurgery Diabetes mellitus type 2 Hypertension Memory impairment Chronic headaches History of breast cancer status post surgery bilateral mastectomy right-sided lymph node removed Obesity with a BMI 31.4 Health Concerns: Poor medical compliance Recurrent falls Chronic pain Pertinent Studies: Chest x-ray no acute findings CT head and neck no acute findings Knee x-ray awaiting results Procedures: Non-performed Patient Condition at Discharge: Good Plan - Discharge Summary Discharge Rx Participant: Yes New Discharge Prescriptions: New lisinopriL 20 mg PO DAILY #30 tablet Continue DULoxetine HCL [Cymbalta] 30 mg PO HS metFORMIN HCL [Glucophage] 500 mg PO BID Metoprolol Tartrate [Lopressor] 50 mg PO TID DULoxetine HCL [Cymbalta] 60 mg PO DAILY Icosapent Ethyl [Vascepa] 2 gm PO BID Baclofen [Lioresal] 20 mg PO BID PRN #6 tab PRN Reason: Muscle Spasm Aspirin EC [Ecotrin] 325 mg PO DAILY Atorvastatin [Lipitor] 40 mg PO HS Butalb/APAP/Caff 50-325-40Mg [Fioricet 50-325-40] 1 tab PO TID PRN #9 tab PRN Reason: Migraine Headache Gabapentin [Neurontin] 300 mg PO BID #6 cap Changed traMADol HCl [Ultram] 50 mg PO Q6HR PRN #12 tab PRN Reason: Pain Discontinued lisinopriL 40 mg PO HS Levofloxacin [Levaquin] 750 mg PO DAILY 7 Days #7 tab methylPREDNISolone Dose Pack [Medrol Dose Pack] See Taper PO DIRECTED Discharge Medication List DULoxetine HCL [Cymbalta] 30 mg PO HS 09/15/18 [History] metFORMIN HCL [Glucophage] 500 mg PO BID 12/17/18 [History] Metoprolol Tartrate [Lopressor] 50 mg PO TID 11/06/19 [History] Aspirin EC [Ecotrin] 325 mg PO DAILY 06/18/20 [History] Atorvastatin [Lipitor] 40 mg PO HS 06/18/20 [History] DULoxetine HCL [Cymbalta] 60 mg PO DAILY 06/18/20 [History] Icosapent Ethyl [Vascepa] 2 gm PO BID 06/18/20 [History] Baclofen [Lioresal] 20 mg PO BID PRN #6 tab 07/07/20 [Rx] Butalb/APAP/Caff 50-325-40Mg [Fioricet 50-325-40] 1 tab PO TID PRN #9 tab 07/07/20 [Rx] Gabapentin [Neurontin] 300 mg PO BID #6 cap 07/07/20 [Rx] lisinopriL 20 mg PO DAILY #30 tablet 07/07/20 [Rx] traMADol HCl [Ultram] 50 mg PO Q6HR PRN #12 tab 07/07/20 [Rx] Follow up Appointment(s)/Referral(s): Damon Rodriguez MD [Primary Care Provider] - 1-2 days Discharge Disposition: TRANSFER TO [facility]/F
[2020-07-07] MEDS: INSULIN ASPART (NovoLOG) 100 UNIT/ML VIAL SQ SCH ×2 (09:48→12:25)
[2020-07-07] MEDS: METOPROLOL TARTRATE 50 MG TAB PO SCH (09:50)
[2020-07-07] MEDS: ASPIRIN 325 MG TAB PO SCH (09:50)
[2020-07-07] MEDS: DULoxetine HCL 60 MG CAPSULE.DR PO SCH (09:50)
[2020-07-07 11:24] LABS: Glucose,Whole Blood 204 mg/dL (75-99)
[2020-07-07 11:40] VITALS: BP 130/60; PULSE 92; RESP 17; TEMP 98.1
[2020-07-07 12:40] LABS: Folate, Serum 8.6 ng/mL
[2020-07-07 12:56] LABS: African American GFR (CKD) 78.4 (60.0-200.0); Albumin 3.9 g/dL (3.80-4.90); Albumin/Globulin Ratio 2.6 (1.60-3.17); Anion Gap 8.3 mmol/L (4.00-12.00); BUN/Creat Ratio 25.45 Ratio (12.00-20.00); Carbon Dioxide 25.7 mmol/L (21.6-31.8); Globulin 1.5 g/dL (1.6-3.3); Magnesium 1.3 mg/dL (1.5-2.4); Non-African American GFR(CKD) 67.7 (60.0-200.0); Phosphorus 2.3 mg/dL (2.4-5.1); Potassium 4.9 mmol/L (3.5-5.5); Total Protein 5.4 g/dL (6.2-8.2)
[2020-07-07] MEDS: DEXTROSE 5%-0.45% NACL 1,000 ML IV SCH (13:37)
[2020-07-07] MEDS: MAGNESIUM SULFATE-D5W PMX 1 GM in DEXTROSE/WATER 1 100ML.BAG IVPB SCH ×2 (14:52→15:30)
--- NOTE | 2020-07-07 16:22 | XR ---
EXAMINATION TYPE: XR knee complete RT DATE OF EXAM: 07/07/2020 CLINICAL HISTORY: Pain after fall injury. TECHNIQUE: Three views of the right knee are obtained. COMPARISON: Bilateral knee x-ray June 18, 2020 FINDINGS: There is acute comminuted slightly displaced fracture through the proximal fibular metadia physis. Persistent small size right patella with bony fragments possible old displaced portion of pat zenaida superiorly. Posterior lateral ossifications or fabella are redemonstrated. Stable mild to modera te tricompartment joint space loss. Tibial condylar spurring. New moderate to large-sized suprapatell ar joint effusion suggests intra-articular extension of proximal fibular fracture. IMPRESSION: There is acute comminuted slightly displaced probable intra-articular fracture of the pr oximal fibula.
[2020-07-07] MEDS: SODIUM CHLORIDE 0.9% 1,000 ML IV SCH (16:27)
--- NOTE | 2020-07-07 16:38 | P.PN ---
Subjective Progress Note Date: 07/07/20 She was seen at bedside and he stated that he continues to be in pain mostly in the lower back. He continues to feel dizzy. Other than that there is no new neurological complaints. Objective - Vital Signs Vital signs: Vital Signs Temp 98.1 F 07/07/20 11:39 Pulse 92 07/07/20 11:39 Resp 17 07/07/20 11:39 BP 130/60 07/07/20 11:39 Pulse Ox 93 L 07/07/20 11:39 Intake & Output 07/06/20 07/07/20 07/07/20 18:59 06:59 18:59 Intake Total 240 750 Output Total 800 1200 Balance -560 -450 Intake: Intake, IV Titration 750 Amount Sodium Chloride 0.9% 1, 750 000 ml @ 75 mls/hr IV . [id number] YARIEL Rx#:[id number] Oral 240 Output: Urine 800 1200 Other: Voiding Method Toilet Toilet Toilet Urinal Urinal Urinal - Exam GENERAL: The patient is lying in bed and is not in acute distress. NEUROLOGICAL: Higher mental function: The patient is awake, alert, oriented to self, place and time. Patient is following commands. No aphasia and no neglect. Cranial nerves: The pupils are round, equal and reactive to light and accommodation. Visual bishop are full to confrontation throughout. Extraocular movement is intact no nystagmus is noted. Facial sensation is normal to touch throughout. The facial strength is normal throughout. Hearing is normal bilaterally to hand rub. Tongue is midline and moved [id number] without any difficulty. No dysarthria is noted. Shoulder shrug is normal bilaterally. Motor: Gait is deferred because of patient's pain. The strength in upper extremities is 4+ to 5- over bilateral upper extremities. While lower he is able to lift above gravity but limited because of pain. Normal tone and bulk. Cerebellum: Normal finger to nose bilaterally. Sensation: Sensation is normal to touch throughout. Reflexes (right/left): 1+ Plantars are downgoing bilaterally. - Labs CBC & Chem 7: 07/07/20 06:39 07/07/20 06:39 Labs: Abnormal Lab Results - Last 24 Hours (Table) 07/06/20 07/06/20 07/07/20 Range/Units 17:05 20:32 06:39 WBC (3.8-10.6) k/uL RBC (4.30-5.90) m/uL Hgb (13.0-17.5) gm/dL Hct (39.0-53.0) % Plt Count (150-450) k/uL Neutrophils # (1.3-7.7) k/uL BUN 28.0 H (9.0-27.0) mg/dL BUN/Creatinine Ratio 25.45 H (12.00-20.00) Ratio Glucose 175 H (70-110) mg/dL POC Glucose (mg/dL) 266 H 245 H (75-99) mg/dL Phosphorus 2.3 L (2.4-5.1) mg/dL Magnesium 1.3 L (1.5-2.4) mg/dL Alkaline Phosphatase 40 L (41-126) U/L Total Protein 5.4 L (6.2-8.2) g/dL Globulin 1.5 L (1.6-3.3) g/dL 07/07/20 07/07/20 07/07/20 Range/Units 06:39 07:00 11:22 WBC 13.1 H (3.8-10.6) k/uL RBC 3.86 L (4.30-5.90) m/uL Hgb 12.8 L (13.0-17.5) gm/dL Hct 36.3 L (39.0-53.0) % Plt Count 128 L (150-450) k/uL Neutrophils # 10.6 H (1.3-7.7) k/uL BUN (9.0-27.0) mg/dL BUN/Creatinine Ratio (12.00-20.00) Ratio Glucose (70-110) mg/dL POC Glucose (mg/dL) 186 H 204 H (75-99) mg/dL Phosphorus (2.4-5.1) mg/dL Magnesium (1.5-2.4) mg/dL Alkaline Phosphatase (41-126) U/L Total Protein (6.2-8.2) g/dL Globulin (1.6-3.3) g/dL Assessment and Plan Assessment: This is a 70-year-old gentleman that presented to the hospital because of recurrent falls and continues to have dizziness. Recurrent Chronic vertigo and is seems likely that component is due to hypot ension and the systolic blood pressure was in the 70s to 80s on presentation (she is on multiple blood pressure medication) Recurrent falls possibly due to above and possibly component from lumbar spinal spondylosis due to weakness in legs as well diabetic neuropathy benign positional vertigo s/p decompression (right occipital region) multilevel severe cervical degenerative disc disease and hypertrophic spurring with multilevel canal stenosis Mild to moderate bilateral form in her narrowing L4-L5. 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 Recommend any further hypotensive episode and will defer management to the primary team. Patient was started on morphine 4 mg IV every 4 hours and I would recommend to avoid any narcotics/opiates that would increase risk for falls. hemoglobin A1c (7.2 on 04/02/20 and prior to that in 2019 was 6.2) Recommend strict control of diabetes and will defer management primary team. vitamin B-12: 315 (low normal) therefore I started the patient on Vitamin B12 1000mcg daily. Serum folate: 8.6 (normal). Pending vitamin B6 to rule out any neuropathy as a contributing factor. If Vitamin B6 levels is low then recommend Vitamin B6 50mg 1 tab bid. Physical therapy and occupation therapy are consulted. Orthopedic surgery team is consulted for lower back pain. They stated no emergent need for surgical intervention. Patient stated that he will get an EMG with nerve conduction study as an outpatient (with Dr. Harmon) and unsure when. Regarding his benign positional vertigo with history of decompression the patient is following-up with [facility]. Upon discharge the patient needs to follow-up with neurologist as outpatient within 2 weeks. The plan is discussed with the patient's nurse. There is no further work-up needed from neurology perspective. The plan is discussed with the patient's nurse. Kareem Linder M.D. Neuro-hospitalist Time with Patient: Less than 30
[2020-07-07 18:35] LABS: Hemoglobin A1C 8.3 % (4.0-6.0)
[2020-07-08] MEDS ORDERED: LEVOFLOXACIN 750 MG TAB PO SCH (09:00)
== END 2020-07-07 16:43 ==
LOC: EC 22:21 → 5NMEDONC 07-06 00:47 → INTOOBSV 07-06 00:47 → 5NMEDONC 07-06 02:08 → UNDODISIN 07-07 16:43
PROVIDERS: ADMIT Family Medicine; ATTEND Family Medicine
DX: N17.9 Acute kidney failure, unspecified (principal); E86.0 Dehydration; H81.10 Benign paroxysmal vertigo, unspecified ear; R29.6 Repeated falls; G89.29 Other chronic pain; M19.90 Unspecified osteoarthritis, unspecified site; M47.816 Spondylosis without myelopathy or radiculopathy, lumbar region; M47.812 Spondylosis without myelopathy or radiculopathy, cervical region; M50.30 Other cervical disc degeneration, unspecified cervical region; M48.061 Spinal stenosis, lumbar region without neurogenic claudication; M48.02 Spinal stenosis, cervical region; S82.831A Other fracture of upper and lower end of right fibula, initial encounter for closed fracture; W19.XXXA Unspecified fall, initial encounter; E11.65 Type 2 diabetes mellitus with hyperglycemia; R51.9 Headache, unspecified; I10 Essential (primary) hypertension; R41.3 Other amnesia; E66.01 Morbid (severe) obesity due to excess calories; R62.7 Adult failure to thrive; I48.0 Paroxysmal atrial fibrillation; E78.5 Hyperlipidemia, unspecified; K21.9 Gastro-esophageal reflux disease without esophagitis; Z68.34 Body mass index [BMI] 34.0-34.9, adult; Z79.899 Other long term (current) drug therapy; Z79.01 Long term (current) use of anticoagulants; Z79.84 Long term (current) use of oral hypoglycemic drugs; Z79.82 Long term (current) use of aspirin; Z79.891 Long term (current) use of opiate analgesic; Z88.0 Allergy status to penicillin; Z88.1 Allergy status to other antibiotic agents; Z20.822 Contact with and (suspected) exposure to COVID-19; Z90.13 Acquired absence of bilateral breasts and nipples; Z16.24 Resistance to multiple antibiotics; Z85.3 Personal history of malignant neoplasm of breast; Z87.891 Personal history of nicotine dependence; Z91.81 History of falling; Z86.14 Personal history of Methicillin resistant Staphylococcus aureus infection; Z87.81 Personal history of (healed) traumatic fracture; Z96.661 Presence of right artificial ankle joint; Z87.01 Personal history of pneumonia (recurrent); Z98.890 Other specified postprocedural states; Z82.49 Family history of ischemic heart disease and other diseases of the circulatory system
CPT/HCPCS: 96376 ×2; 96361 ×3; 96365; 96375; 99285; 36415; 93005; 97162; 97535; 97166; 84207; 83880; 80053 ×2; 80048; 82607; 82140; 82550; 82746; 83605 ×2; 83735 ×2; 84100 ×2; 84443; 84484; 85025 ×2; 85610; 85730; 81001; 80143; 83036; 84145; 87635; 80179; 73562; 71045; 72125; 70450; G0378 ×2; G0480; J2270 ×2; J3475; 80320; 96360

== ENCOUNTER 2020-07-11 22:40 | Emergency (ER) | payer MEDICARE ==
[2020-07-11 22:53] VITALS: BP 109/61; PULSE 84; RESP 20; TEMP 98.1
[2020-07-11] MEDS ORDERED: HYDROcodone/APAP 5-325MG 1 EACH TAB PO STA (23:10)
--- NOTE | 2020-07-11 23:41 | XR ---
EXAMINATION TYPE: XR tibia fibula LT DATE OF EXAM: 07/11/2020 COMPARISON: NONE HISTORY: Leg pain TECHNIQUE: 2 views FINDINGS: There is some spurring of the lateral femoral and tibial condyles. I see no fracture nor di slocation. Tibia and fibula appear intact. Ankle mortise is anatomic. There is large calcification at the lower Achilles tendon. IMPRESSION: No fracture seen. There is some osteoarthritis at the knee joint. Calcific tendinitis.
--- NOTE | 2020-07-12 00:05 | ED ---
General Adult HPI - General Chief complaint: Fall Stated complaint: Fall Time Seen by Provider: 07/11/20 22:48 Source: patient, family, EMS Mode of arrival: EMS Limitations: no limitations - History of Present Illness Initial comments: 70 year-old male patient presents to the emergency department sent from [facility] for altered mental status. Patient had a "fall" from bed earlier today, states that he was reaching for a remote on the floor and leaning from the bed. States that he was unable to get back up into bed so nurses assisted him to the floor and helped him back to bed. Patient states that he sustained no injury from this fall. States that he did have xrays of his legs which showed a leg fracture on the right side. State he is having pain in the left. This is from a fall several days ago. He has not yet been splinted or seen orthopedics. Patient states this evening he asked for pain medication, but staff at [facility] would not give him any because he had too many doses during the day shift. Patient became upset and had an argument with the nurse. They called this a "mental status change" and sent him here for further evaluation. He has no complaints. - Related Data Home Medications Medication Instructions Recorded Confirmed DULoxetine HCL [Cymbalta] 30 mg PO HS 09/15/18 07/05/20 metFORMIN HCL [Glucophage] 500 mg PO BID 12/17/18 07/05/20 Metoprolol Tartrate [Lopressor] 50 mg PO TID 11/06/19 07/05/20 Aspirin EC [Ecotrin] 325 mg PO DAILY 06/18/20 07/05/20 Atorvastatin [Lipitor] 40 mg PO HS 06/18/20 07/05/20 DULoxetine HCL [Cymbalta] 60 mg PO DAILY 06/18/20 07/05/20 Icosapent Ethyl [Vascepa] 2 gm PO BID 06/18/20 07/05/20 Previous Rx's Medication Instructions Recorded Baclofen [Lioresal] 20 mg PO BID PRN #6 tab 07/07/20 Butalb/APAP/Caff 50-325-40Mg 1 tab PO TID PRN #9 tab 07/07/20 [Fioricet 50-325-40] Gabapentin [Neurontin] 300 mg PO BID #6 cap 07/07/20 lisinopriL 20 mg PO DAILY #30 tablet 07/07/20 traMADol HCl [Ultram] 50 mg PO Q6HR PRN #12 tab 07/07/20 Allergies Allergy/AdvReac Type Severity Reaction Status Date / Time cephalexin monohydrate Allergy Anaphylaxis Verified 06/18/20 14:07 [From Keflex] Cephalosporins Allergy Anaphylaxis Verified 06/18/20 14:07 Penicillins Allergy Anaphylaxis Verified 06/18/20 14:07 Review of Systems ROS Statement: Those systems with pertinent positive or pertinent negative responses have been documented in the HPI. ROS Other: All systems not noted in ROS Statement are negative. Past Medical History Past Medical History: Atrial Fibrillation, Cancer, Diabetes Mellitus, GERD/Reflux, Hyperlipidemia, Hypertension, Memory Impairment, Osteoarthritis (OA), Pneumonia Additional Past Medical History / Comment(s): FELL 07/09/19 FX LT RADIUS, FREQUENT FALLS-REASON UNKNOWN. 03-10-16 FELL/FX RT FIBULA, VERTIGO , chronic headaches, BREAST CANCER History of Any Multi-Drug Resistant Organisms: CRE, MRSA Date of last positivie culture/infection: 02/2017 MDRO Source:: MRSA Past Surgical History: Back Surgery, Breast Surgery, Orthopedic Surgery Additional Past Surgical History / Comment(s): Bilateral mastectomy with right sided lymp node removal due to cancer, R knee cap removed, Back surgery for herniated disc., Brain stem surgery for decompression-for dizziness, right ankle ORIF, bilateral wrist fractures SX Past Anesthesia/Blood Transfusion Reactions: No Reported Reaction Past Psychological History: No Psychological Hx Reported Smoking Status: Former smoker, Never smoker Past Alcohol Use History: None Reported Past Drug Use History: None Reported - Past Family History Father History Unknown: Yes Family Medical History: Congestive Heart Failure (CHF) Additional Family Medical History / Comment(s): at 68. Mother History Unknown: Yes Family Medical History: Hypertension Additional Family Medical History / Comment(s): Pulmonary hypertension. at 78. General Exam Limitations: no limitations General appearance: alert, in no apparent distress, other (Physical well-developed, well-nourished adult male patient in no acute distress. Vital signs upon presentation are temperature 98.1F, pulse 84, respirations 20, blood pressure 109/61, pulse ox 96% on room air.) Head exam: Present: atraumatic, normocephalic, normal inspection Eye exam: Present: normal appearance, PERRL, EOMI. Absent: scleral icterus, conjunctival injection, periorbital swelling ENT exam: Present: normal exam, normal oropharynx, mucous membranes moist Neck exam: Present: normal inspection, full ROM, other (Nontender, no step-off, no deformity to firm midline palpation of the posterior cervical spine. Full range of motion without pain or limitation.). Absent: tenderness, meningismus, lymphadenopathy Respiratory exam: Present: normal lung sounds bilaterally. Absent: respiratory distress, wheezes, rales, rhonchi, stridor Cardiovascular Exam: Present: regular rate, normal rhythm, normal heart sounds. Absent: systolic murmur, diastolic murmur, rubs, gallop, clicks GI/Abdominal exam: Present: soft, normal bowel sounds. Absent: distended, tenderness, guarding, rebound, rigid Extremities exam: Present: normal inspection, full ROM, normal capillary refill, other (Skin to the lower extremities is pink, warm, dry. Cap refill less than 3 seconds. Pedal pulses 2+.). Absent: tenderness, pedal edema, joint swelling, calf tenderness Back exam: Present: normal inspection, other (Nontender, no step-off, no deformity to firm midline palpation of the thoracic and lumbar vertebrae. Full range of motion without pain or limitation.). Absent: vertebral tenderness Neurological exam: Present: alert, oriented X3, CN II-XII intact Expanded Speech: Present: fluid speech Cranial nerves: EOM's Intact: Normal, Nystagmus: Normal Motor strength exam: RUE: 5, LUE: 5, RLE: 5, LLE: 5 Eye Response: (4) open spontaneously Motor Response: (6) obeys commands Verbal Response: (5) oriented [place] Total: 15 Psychiatric exam: Present: normal affect, normal mood Skin exam: Present: warm, dry, intact, normal color. Absent: rash Course Vital Signs 07/11/20 22:47 Temperature 98.1 F Pulse Rate 84 Respiratory 20 Rate Blood Pressure 109/61 O2 Sat by Pulse 96 Oximetry Medical Decision Making - Medical Decision Making 70-year-old male patient presented to the emergency department today for evaluation of altered mental status. Patient got into an argument with his nurse at [facility] on the [place] over pain medication. Staff called this a "mental status change" and sent him to the emergency department for further evaluation. Physical examination is unremarkable. He is neurologically intact with no focal deficits. He is alert and oriented and is answering all my questions appropriately. His son is present at bedside, confirms all information the patient is telling me. He did have a fall several days ago has been having leg pain since, did have of x-ray at [facility] that was positive for a proximal fibula fracture. Patient is currently non-weightbearing so decision was made to not splint, he will be following up with [facility] soon. We discharged back to [facility] on the [place]. He is instructed to follow-up with the primary care physician as soon as possible. Return parameters were discussed in detail. He verbalizes understanding and agrees with this plan. Case discussed with my attending Dr. Alejandra. - Radiology Data Radiology results: report reviewed, image reviewed View x-ray of the left tib-fib was obtained. Report reviewed in its entirety. Impression by Dr. Johnson shows no fracture seen. Some osteoarthritis of the knee joint. Calcific tendinitis. Disposition Clinical Impression: Right fibular fracture Disposition: HOME SELF-CARE Condition: Good Instructions (If sedation given, give patient instructions): Leg Fracture (ED) Additional Instructions: Ice the right leg. Do not bear weight until follow up with orthopedics. Follow up with orthpedics as soon as possible. Return to the emergency department for any new, worsening, or concerning symptoms. Is patient prescribed a controlled substance at d/c from ED?: No Referrals: Christine Rascon MD [Primary Care Provider] - 1-2 days Time of Disposition: 00:05
== END 2020-07-12 00:41 | disposition home or self-care (01) ==
LOC: EC 22:40
DX: S82.831A Other fracture of upper and lower end of right fibula, initial encounter for closed fracture (principal); R41.82 Altered mental status, unspecified; E78.5 Hyperlipidemia, unspecified; I10 Essential (primary) hypertension; K21.9 Gastro-esophageal reflux disease without esophagitis; M19.90 Unspecified osteoarthritis, unspecified site; E11.9 Type 2 diabetes mellitus without complications; I48.91 Unspecified atrial fibrillation; Z87.891 Personal history of nicotine dependence; Z88.0 Allergy status to penicillin; Z79.82 Long term (current) use of aspirin; Z79.84 Long term (current) use of oral hypoglycemic drugs; W06.XXXA Fall from bed, initial encounter
CPT/HCPCS: 99285

== ENCOUNTER → 2020-08-13 | Outpatient (CLI) | payer MEDICARE ==
--- NOTE | 2020-08-13 15:32 | MR ---
EXAMINATION TYPE: MR knee RT wo con DATE OF EXAM: 08/13/2020 COMPARISON: None HISTORY: RT KNEE PAIN/ PAIN BEHIND KNEE AND LOCKS AND SWELLS/ PT FELL ON BOTH KNEES 5 WEEKS AGO TECHNIQUE: Multiplanar, multisequence images of the knee is performed without IV contrast. FINDINGS: MEDIAL MENISCUS: There is complex tear involving the posterior horn of the medial meniscus. The menis shimon body and anterior horn are intact. LATERAL MENISCUS: Anterior and posterior horns are intact without tear. CRUCIATE LIGAMENTS: The anterior and posterior cruciate ligaments are intact and unremarkable. COLLATERAL LIGAMENTS: The medial collateral ligament and lateral collateral ligament complex are inta ct and unremarkable. EXTENSOR MECHANISM: Visualized quadriceps and patellar tendons are intact. EFFUSION: Small suprapatellar joint effusion. POPLITEAL CYST: No popliteal/chinchilla cyst. TRICOMPARTMENT SPACES: Moderate narrowing patellofemoral joint space and medial tibiofemoral joint sp otilia. CARTILAGE: Intact BONE MARROW SIGNAL: Partially imaged nonacute fracture left fibular neck. Bone marrow contusion poste rior tibial plateau. OTHER: The patella is diminutive in size. IMPRESSION: 1. Complex tear posterior horn medial meniscus. 2. Diminutive patella. 3. Nonacute fracture left fibular neck. Bone marrow contusion posterior tibial plateau.
== END | disposition home or self-care (01) ==
LOC: RADMRIMAIN 12:46
PROVIDERS: ATTEND Orthopaedic Surgery
DX: M23.321 Other meniscus derangements, posterior horn of medial meniscus, right knee (principal); S80.01XA Contusion of right knee, initial encounter

== ENCOUNTER 2020-10-13 11:02 | Day surgery (SDC) | payer MEDICARE ==
[2020-10-11 14:33] VITALS: BMI 34.0
[~2020-10-13 11:02] MED LIST changes: -CLINDAMYCIN 900 MG in DEXTROSE 5% IN WATER 50 ML IVPB ONE; -DEXAMETHASONE SOD PHOSPHATE 10 MG/ML 1 ML VIAL IV ONE; -LIDOCAINE 1% (10MG/ML) FOR IV START INTRADERMA PRN; -MIDAZOLAM 2 MG/2 ML VIAL IV PRN; -ONDANSETRON 4 MG/2 ML VIAL IVP ONE; +Pre Op ABX Message 1 EACH MISC MISCELLANE ONE; -fentaNYL (PF) 50 MCG/ML 2 ML AMP IV PRN
[2020-10-13] MEDS ORDERED: LACTATED RINGERS 1,000 ML IV ONE ×2 (11:59→14:16)
[2020-10-13 12:02] LABS: Glucose,Whole Blood 161 mg/dL (75-99)
--- NOTE | 2020-10-13 12:03 | P.HPOR ---
History of Present Illness H&P Date: 10/13/20 Chief Complaint: Knee pain Height: 6'4" Weight: 280 lbs BP:138/88 BMI: Age:70 year Patient is a 70-year-old male who was initially evaluated in the inpatient setting at [facility] a few days ago with regards to recent falls and weakness. About a week ago, patient was also not hospital with regards to similar symptoms. He had undergone a extensive workup by our service to include imaging of his cervical and lumbar spine. He had received a transforaminal injection in the low back from our pain management service [facility]. Patient was discharged home, with being home over a few days of multiple falls and that prompted his return to [facility] earlier this week. We did reevaluate the patient at that time,patient symptoms are very hard to determine the exact pathology of his pain. Pain of the bilateral lower extremities arrange from the upper leg down to the lower leg and foot and ankle. prior to him being discharged, he was complaining of right knee pain, x-rays were ordered while he was in the hospital. I was unable to review the images prior to the patient in discharge to rehab. I was notified by nurse practitioner from internal medicine seeing the patient at the hospital that there was fracture of the proximal fibula. I contacted the physician at [facility] subacute rehab, he was made nonweightbearing initially. X-rays were ordered of the right knee, right tib-fib and ankle. I was unable to review those images in my office on 07/09/2020. No acute changes were noted involving the lower leg on the right side. The hardware on the distal fibula remained stable. I did contact the nursing staff at [facility] regarding patient's current orders. Patient will be allowed to weight-bear as tolerated. I did recommend use of an Timothy bandage around the knee to include the proximal fibula for compression and stabilization. Advised follow-up in our office for recheck in the next 10-14 days. Patient returns for a follow up of his right fibula fracture from 06/20/2020. Patient states that he is unable to weight bear due to pain. Patient is in a wheelchair. He has increased right knee pain. He does not take pain medications. Review of Systems Constitutional: Reports as per HPI Ears, nose, mouth and throat: Denies as per HPI, Denies ant. neck pain, Denies bleeding gums, Denies dental pain, Denies dysphagia, Denies epistaxis, Denies headache, Denies hoarseness, Denies mouth pain, Denies nasal congestion, Denies nasal discharge, Denies neck fullness/pressure, Denies neck lump, Denies nose pain, Denies odynophagia, Denies post-nasal drip, Denies sinus pain, Denies sinus pressure, Denies swelling in mouth, Denies swelling in throat, Denies sore throat, Denies vertigo, Denies voice changes Cardiovascular: Denies as per HPI, Denies chest pain, Denies claudication, Denies decreased exercise tolerance, Denies dyspnea on exertion, Denies edema, Denies high blood pressure, Denies irregular heart beat, Denies leg edema, Denies lightheadedness, Denies orthopnea, Denies palpitations, Denies paroxysmal nocturnal dyspnea, Denies phlebitis, Denies rapid heart beat, Denies shortness of breath, Denies syncope Respiratory: Denies as per HPI, Denies congestion, Denies cough, Denies cough with sputum, Denies dyspnea, Denies excessive sputum, Denies hemoptysis, Denies home oxygen, Denies pain, Denies pain on inspiration, Denies pleurisy, Denies respiratory infections, Denies sleep apnea, Denies snoring, Denies wheezing Gastrointestinal: Denies as per HPI, Denies abdominal pain, Denies belching, Denies bloating, Denies BRBPR, Denies change in bowel habits, Denies coffee ground emesis, Denies constipation, Denies diarrhea, Denies dyspepsia, Denies early satiety, Denies excessive gas, Denies heartburn, Denies hematemesis, Denies hematochezia, Denies indigestion, Denies jaundice, Denies lactose intole ilsseth, Denies loss of appetite, Denies melena, Denies nausea, Denies vomiting Genitourinary: Denies as per HPI, Denies decreased libido, Denies difficulties fathering child, Denies discharge, Denies dysuria, Denies erectile dysfunction, Denies flank pain, Denies genital pain, Denies genital sores, Denies hematuria, Denies impotence, Denies incontinence, Denies kidney stones, Denies nocturia, Denies polyuria, Denies testicular lump, Denies testicular pain, Denies urinary frequency, Denies urinary hesitancy, Denies urinary retention Musculoskeletal: Reports as per HPI Past Medical History Past Medical History: Atrial Fibrillation, Cancer, Diabetes Mellitus, GERD/Reflux, Hyperlipidemia, Hypertension, Osteoarthritis (OA), Pneumonia Additional Past Medical History / Comment(s): FELL 07/09/19 - FX LEFT RADIUS, FREQUENT FALLS, VERTIGO,. FELL 03/10/16 - FX RIGHT FIBULA, chronic headaches, HX BREAST CANCER approximately 10 yrs ago. History of Any Multi-Drug Resistant Organisms: CRE, MRSA Date of last positivie culture/infection: 02/2017 MDRO Source:: MRSA Past Surgical History: Back Surgery, Breast Surgery, Orthopedic Surgery Additional Past Surgical History / Comment(s): Bilateral mastectomy with right sided lymp node removal, right knee cap removed, back surgery for herniated disc, brain stem surgery for decompression-for dizziness, surgery for vertigo, right ankle ORIF, surgery for bilateral wrist fractures. Past Anesthesia/Blood Transfusion Reactions: No Reported Reaction Past Psychological History: No Psychological Hx Reported Smoking Status: Former smoker Past Alcohol Use History: None Reported Additional Past Alcohol Use History / Comment(s): STARTED SMOKING AT AGE 18, SMOKED A PIPE, USED 1 PACK OF PIPE TOBACCO/DAY, quit smoking in 2005. Past Drug Use History: None Reported - Past Family History Father History Unknown: Yes Family Medical History: Congestive Heart Failure (CHF) Additional Family Medical History / Comment(s): at 68. Mother History Unknown: Yes Family Medical History: Hypertension Additional Family Medical History / Comment(s): Pulmonary hypertension. at 78. Medications and Allergies Home Medications Medication Instructions Recorded Confirmed Type DULoxetine HCL [Cymbalta] 30 mg PO HS 09/15/18 10/11/20 History metFORMIN HCL [Glucophage] 500 mg PO BID 12/17/18 10/11/20 History Metoprolol Tartrate [Lopressor] 50 mg PO TID 11/06/19 10/11/20 History Aspirin EC [Ecotrin] 325 mg PO DAILY 06/18/20 10/11/20 History Atorvastatin [Lipitor] 40 mg PO HS 06/18/20 10/11/20 History DULoxetine HCL [Cymbalta] 60 mg PO DAILY 06/18/20 10/11/20 History Icosapent Ethyl [Vascepa] 2 gm PO BID 06/18/20 10/11/20 History Baclofen [Lioresal] 20 mg PO BID PRN #6 tab 07/07/20 10/11/20 Rx Butalb/APAP/Caff 50-325-40Mg 1 tab PO TID PRN #9 tab 07/07/20 10/11/20 Rx [Fioricet 50-325-40] Gabapentin [Neurontin] 300 mg PO BID #6 cap 07/07/20 10/11/20 Rx lisinopriL 20 mg PO QAM 10/11/20 10/11/20 History Allergies Allergy/AdvReac Type Severity Reaction Status Date / Time cephalexin monohydrate Allergy Anaphylaxis Verified 10/13/20 11:42 [From Keflex] Cephalosporins Allergy Anaphylaxis Verified 10/13/20 11:42 Penicillins Allergy Anaphylaxis Verified 10/13/20 11:42 Physical Examination Osteopathic Statement: *. No significant issues noted on an osteopathic structural exam other than those noted in the History and Physical/Consult. Patient is alert and oriented 3 appears well-nourished well-hydrated is in no acute distress. They does not appear septic. On exam the patient has no tenderness to palpation of her thoracic or lumbar spine. There is no edema or ballottement sign. Lower extremities with 4 out of 5 strength in all major muscle groups. Pt has a lot of pain in R knee with popping and clicking so difficult exam. Upper extremities show 5/5 strength in all major muscle groups. There is FROM that is painless of the b/l UE and LE in all major joints. They are intact to light touch sensation in L2 to S1 nerve distribution. DTR 2/40 Patient has palpable dorsalis pedis was posterior tibial pulses. Compartments are soft and compressible. Patient shows a negative Homans, Garcia's, negative Babinski's negative clonus bilaterally. negative straight leg raise bilaterally. No tensioning signs. Cranial nerves II through XII are grossly intact. Overall alignment is well-maintained in the sagittal coronal planes. stable varus valgus anterior posterior drawer. Positive Domenic's positive Apley's. Positive click and pop with motion. Pain with motion right knee. Limited ROM secondary to pain with -5 ext to 110 flex. Mild effusion noted. Results X-rays were reviewed from [facility] on a disc in my office today. Images were of the right knee, right tib-fib, and right lower tib-fib to include AP view the ankle. Images demonstrated previous distal fibular plate with screw fixation. Hardware appears stable, no obvious lucencies. The mortise joint on viewbale x-rays appear stable with no obvious widening. Obvious fracture of the right proximal fibula is noted, it is displaced and comminuted MRI right knee 08/13/2020:this does demonstrate a complex tear of the posterior horn medial meniscus. There is a nonacute fracture which is visualized a left fibular neck. There is bone edema within the posterior tibial plateau on the side as well. There is moderate narrowing of the joint spaces as well in the patellofemoral region and medial tibial femoral joint. There is a small suprapatellar joint effusion the quad tendon and patellar tendon visualized inta ct MCL LCL ACL PCL are all intact. Assessment and Plan Assessment: ASSESSMENT: 1. posterior horn medial meniscus complex tear Right knee 2. R proximal fibular fracture Plan: -OR today - PCP cleared - Rt knee arthroscopy -Follow up post procedure I discussed with the patient his clinical signs and symptoms as well as his imaging. We discussed risks of surgery as well as conservative treatments. At this time the patient has elected for surgical treatment in the form of a Rt knee arthroscopy. He has had shots in the past which did not help him, his last shot was >3 mo ago. He has had therapy and it is not helping and making his knee worse. He states he is ready for surgery. We discussed risks and benefits and he is willing to proceed with surgical scheduling.
[2020-10-13] MEDS ORDERED: ONDANSETRON 4 MG/2 ML VIAL ONE (12:05)
[2020-10-13] MEDS ORDERED: DEXAMETHASONE SOD PHOSPHATE 4 MG/ML 1 ML VIAL IVP ONE (12:12)
[2020-10-13] MEDS ORDERED: CLINDAMYCIN 900 MG in DEXTROSE 5% IN WATER 50 ML IVPB STA ×2 (12:20)
[2020-10-13] MEDS ORDERED: MIDAZOLAM 2 MG/2 ML VIAL ONE (12:24)
[2020-10-13] MEDS ORDERED: ePHEDrine SULFATE/0.9% NACL/PF 50 MG/5 ML SYRINGE IV ONE (12:24)
[2020-10-13] MEDS ORDERED: PROPOFOL 10 MG/ML 20 ML VIAL IV ONE (12:24)
[2020-10-13] MEDS ORDERED: GLYCOPYRROLATE 0.2 MG/ML 2 ML VIAL ONE (12:24)
[2020-10-13] MEDS ORDERED: fentaNYL (PF) 50 MCG/ML 2 ML AMP ONE (12:24)
[2020-10-13] MEDS ORDERED: LIDOCAINE 1% INJ 10MG/ML (20 ML MDV) ONE (12:24)
[2020-10-13] MEDS ORDERED: BUPIVACAINE (PF) 0.5% 30 ML VIAL INTRAARTIC ONE (12:27)
[2020-10-13 13:36] VITALS: TEMP 96.8
[2020-10-13] MEDS ORDERED: HYDROmorphone 0.5 MG/0.5 ML SYRINGE IVP ONE ×2 (13:40→13:51)
[2020-10-13 13:56] LABS: Glucose,Whole Blood 145 mg/dL (75-99)
[2020-10-13 14:38] VITALS: BP 149/97; PULSE 64; RESP 16
[2020-10-13] MEDS ORDERED: HYDROcodone/APAP 5-325MG 1 EACH TAB ONE (14:39)
[2020-10-13] MEDS ORDERED: HYDROcodone/APAP 5-325MG 1 EACH TAB PO ONE (14:40)
--- NOTE | 2020-10-13 15:28 | P.PN ---
Progress Note - Text Progress Note Date: 10/13/20 Post OP: Pt s/e doing well. Some pain in leg. Dressings in place. Moving all 4 ext well. No other issues. Denies any F/C/SOB/CP at this time. Will attempt ambulation shortly. NSG at bedside. DC once stable for home per PACU staff and anesthesia.
--- NOTE | 2020-10-13 16:31 | P.OP ---
Date of Procedure: 10/13/20 Preoperative Diagnosis: 1. Right knee internal derangement 2. Right knee medial meniscal tear posterior horn complex 3. Right knee pain Postoperative Diagnosis: . Right knee internal derangement 2. Right knee medial meniscal tear posterior horn complex 3. Right knee pain 4. Bicompartmental arthritis 5. Chondromalacia Procedure(s) Performed: 1. Right knee arthroscopy diagnostic 2. Right knee partial medial meniscectomy posterior horn to posterior body 3. Right medial femoral condyle chondroplasty 4. Right medial tibial plateau chondroplasty 5. Right lateral meniscus partial meniscectomy 6. Synovectomy minor Implants: None Anesthesia: MAC Surgeon: Emir Anderson Estimated Blood Loss (ml): 5 IV fluids (ml): 500 Urine output (ml): 0 Pathology: none sent Condition: stable Disposition: PACU Indications for Procedure: 70-year-old male presented with complaints of right knee pain. The patient has history of a right knee patellectomy or partial patellectomy was performed several years prior. Patient did well with this however he over the past few months has noted after a slip at home that he was having more incidence of clicking popping and pain in his right knee. He localizes this to the medial side of his knee states pain in the knee in this area and does not seem to be getting better. He tried conservative measures including medications therapy home therapy as well as prescription medications however he is unable to tolerate therapy secondary to the clicking and popping that was happening his knee. He was seen and evaluated we did order MRI which showed a complex tear of the posterior horn medial meniscus. He does have some osteoarthritic changes which are noted however for the most part his joint line is maintained. We discussed different options including conservative management continue conservative management medications injections however at this time he felt that he has done conservative measures and he cannot perform most of them secondary to the clicking popping and he would like to have this taken care of surgically. Discussed the risks and benefits of surgery including the risk of bleeding infection damage to branches risk of reoperation risk of the anesthesia up to including is willing to assume these risks and all the risks of surgery. Patient seen preoperatively all preoperative protocols followed consent was signed site was marked use given antibiotics he was cleared by anesthesia for surgery. All questions were addressed prior and he was comfortable with proceeding. Operative Findings: Grade 2 chondromalacia medial femoral condyle medial tibial plateau grade 3 chondromalacia trochlear groove intact ACL PCL complex tear posterior Horn to medial body of the posterior medial meniscus this is a delamination as well as radial type tear extending all the way back to the capsule. There was a simple tear and fraying of the lateral meniscus in the posterior and mid body. Grade 1 or minimal chondromalacia lateral compartment. Synovitis Description of Procedure: The patient was seen and examined in the preoperative area. All preoperative protocols were followed. Informed consent was obtained risks and benefits of the procedure were discussed at length. Risks including bleeding infection damage to the surrounding tissue and risk of reoperation were discussed with the patient. Risk of anesthesia up to and including was a discussed with the patient. These are outlined in the risk reviewed. They were willing to accept these risks and all of the risks of surgery. The patient was given a weight- based dose of antibiotics in the form of clindamycin 900. The patient was seen and evaluated by the anesthesia team who deemed them fit for surgery. The site was marked, the patient was willing to proceed with the procedure. The patient was transferred to the operative suite by the Department of anesthesia. There were then drifted off to sleep by the department of anesthesia and LMA anesthesia was used. Once adequate anesthesia had been obtained the patient was carefully transferred to the operative bed. All bony prominences were padded accordingly. SCDs were placed on the nonoperative lower extremities. Arms were well padded. Right leg was exposed and placed in arthroscopic leg lowe and well-padded. Tourniquet was placed around the patient's right upper thigh and secured into place. They pad was placed underneath the nonoperative leg. The legs were then dropped and the patient was secured to the table. Preoperative briefing was done with the operative team and everyone was ready for the procedure to start. The patients right leg was then prepped and draped in the normal sterile fashion. Timeout was then performed and all parties in agreement with the procedure to be performed. Standard diagnostic arthroscopy ensued first by establishing a lateral portal. The trocar was introduced along with the camera digastric arthropathy arthroscopy then ensued showing the findings as stated above. We then made our way to the medial compartment where we marked the entry point with a spinal needle incision was then made transverse in this area and the probe was introduced we then used a probe to finish our diagnostic arthroscopy showing complex tear of the medial meniscus as well as intact ACL PCL chondromalacia and synovitis. We then proceeded with medial meniscectomy partial medial meniscectomy was performed with a series of upbiters and finesse as well as straight biting meniscal clamps. Once these were removed and we establish a stable edge of the meniscus we cleaned this up and took pictures which showed good stable ad we then used a probe to probe this and showed good stable edge. We then performed a limited chondroplasty of the medial femoral condyle and medial tibial plateau due to loose cartilage fragments that were flipping in this area we perform this with a shaver and establish a stable edge once a stable edge was established issues were taken and probe confirmed good stable edge in this area. We then turned our attention to the lateral compartment where a limited lateral partial meniscectomy was performed of the mid body where there was a small radial tear as well as a slight delamination. Upbiters and finesse were used to create a stable edge of the lateral meniscus. We then performed a limited synovectomy throughout to establish better visualization as well as clean up the plical bands that were in the area. The gutters were inspected and we lavaged the knee to remove any further debris once this was accomplished the shaver was removed and the scope was removed and we did draining the knee of remaining fluid. We then placed 2 simple nylon stitches in the portal holes. The knee was then injected with a ropivacaine solution 30 mL and then dressed sterilely with Adaptic 4 x 4's ABDs and web roll. OBDULIA hose was then placed over the right lower extremity and over the dressings to hold them in place. The patient was then transferred back to their hospital bed. There were awakened by department of anesthesia having tolerated the procedure very well with no complications. The patient was then transported to the postoperative care unit in stable condition.
== END 2020-10-13 15:36 | disposition home health service (06) ==
LOC: OR 11:02
PROVIDERS: ATTEND Orthopaedic Surgery
DX: M23.321 Other meniscus derangements, posterior horn of medial meniscus, right knee (principal); M65.9 Synovitis and tenosynovitis, unspecified; M17.11 Unilateral primary osteoarthritis, right knee; I10 Essential (primary) hypertension; E78.5 Hyperlipidemia, unspecified; E11.9 Type 2 diabetes mellitus without complications; Z87.891 Personal history of nicotine dependence; K21.9 Gastro-esophageal reflux disease without esophagitis; I48.91 Unspecified atrial fibrillation; Z79.84 Long term (current) use of oral hypoglycemic drugs; Z79.82 Long term (current) use of aspirin; Z79.899 Other long term (current) drug therapy; Z85.3 Personal history of malignant neoplasm of breast; Z88.1 Allergy status to other antibiotic agents; Z88.0 Allergy status to penicillin
CPT/HCPCS: 29880; 29875; J2250; J1100; J2405; J2001; J3010; J2704; J1170

== ENCOUNTER 2020-10-16 07:24 | Observation (INO) | payer MEDICARE ==
[2020-10-16] MEDS ORDERED: KETOROLAC 15 MG/ML 1 ML VIAL IVP STA (07:40)
[2020-10-16] MEDS ORDERED: SODIUM CHLORIDE 0.9% 500 ML 500 ML IV STA (07:43)
[2020-10-16] MEDS ORDERED: SODIUM CHLORIDE 0.9% 1,000 ML IV STA (07:43)
[2020-10-16 08:15] LABS: Basophils % (A) 0 %; Eosinophils # (A) 0.3 k/uL (0-0.7); Eosinophils % (A) 3 %; HCT 39.4 % (39.0-53.0); HGB 12.7 gm/dL (13.0-17.5); Lymphocytes # (A) 2.3 k/uL (1.0-4.8); Lymphocytes % (A) 22 %; MCH 31.4 pg (25.0-35.0); MCHC 32.1 g/dL (31.0-37.0); MCV 97.8 fL (80.0-100.0); Mean Platelet Volume 7.9; Monocytes # (A) 0.6 k/uL (0-1.0); Monocytes % (A) 6 %; Neutrophils # (A) 7.1 k/uL (1.3-7.7); Neutrophils % (A) 67 %; Platelet Count 199 k/uL (150-450); RBC 4.03 m/uL (4.30-5.90); RDW 13.5 % (11.5-15.5); WBC 10.5 k/uL (3.8-10.6)
[2020-10-16 08:26] LABS: Albumin 4.1 g/dL (3.5-5.0); Calcium 9.1 mg/dL (8.4-10.2); Magnesium 1.3 mg/dL (1.6-2.3); Potassium 4.9 mmol/L (3.5-5.1); Total Bilirubin 0.5 mg/dL (0.2-1.3); Total Protein 6.5 g/dL (6.3-8.2)
[2020-10-16] MEDS ORDERED: MAGNESIUM SULFATE-D5W PMX 1 GM in DEXTROSE/WATER 1 100ML.BAG IVPB ONE (08:39)
[2020-10-16] MEDS ORDERED: fentaNYL (PF) 50 MCG/ML 2 ML AMP IV STA (08:40)
--- NOTE | 2020-10-16 08:43 | ED ---
Fall HPI - General Chief Complaint: Fall Stated Complaint: fall Time Seen by Provider: 10/16/20 07:24 Source: patient, EMS, RN notes reviewed, old records reviewed Mode of arrival: EMS - History of Present Illness Initial Comments: This is a 70-year-old male with a long history of frequent falls hypertension memory impairment vertigo diabetes degenerative disc disease and a recent right knee surgery for meniscus injury who is brought in by EMS this way because he fell backwards in his wheelchair. He states he was trying to back up in the fell at 3 actually push wheelchair over. No loss of consciousness but he does complain some pain in the base of his neck he also has some postop pain but states this is nothing new. No fevers chills nausea vomiting sweats or other sy mptoms reported at this time. MD Complaint: fall - Related Data Home Medications Medication Instructions Recorded Confirmed DULoxetine HCL [Cymbalta] 30 mg PO HS 09/15/18 10/11/20 metFORMIN HCL [Glucophage] 500 mg PO BID 12/17/18 10/11/20 Metoprolol Tartrate [Lopressor] 50 mg PO TID 11/06/19 10/11/20 Aspirin EC [Ecotrin] 325 mg PO DAILY 06/18/20 10/11/20 Atorvastatin [Lipitor] 40 mg PO HS 06/18/20 10/11/20 DULoxetine HCL [Cymbalta] 60 mg PO DAILY 06/18/20 10/11/20 Icosapent Ethyl [Vascepa] 2 gm PO BID 06/18/20 10/11/20 lisinopriL 20 mg PO QAM 10/11/20 10/11/20 Previous Rx's Medication Instructions Recorded Baclofen [Lioresal] 20 mg PO BID PRN #6 tab 07/07/20 Butalb/APAP/Caff 50-325-40Mg 1 tab PO TID PRN #9 tab 07/07/20 [Fioricet 50-325-40] Gabapentin [Neurontin] 300 mg PO BID #6 cap 07/07/20 HYDROcodone/APAP 5-325MG [[place] 1 tab PO Q4HR PRN #25 tab 10/13/20 5-325] Allergies Allergy/AdvReac Type Severity Reaction Status Date / Time cephalexin monohydrate Allergy Anaphylaxis Verified 10/13/20 11:42 [From Keflex] Cephalosporins Allergy Anaphylaxis Verified 10/13/20 11:42 Penicillins Allergy Anaphylaxis Verified 10/13/20 11:42 Review of Systems ROS Statement: Those systems with pertinent positive or pertinent negative responses have been documented in the HPI. ROS Other: All systems not noted in ROS Statement are negative. Past Medical History Past Medical History: Atrial Fibrillation, Cancer, Diabetes Mellitus, GERD/Reflux, Hyperlipidemia, Hypertension, Memory Impairment, Osteoarthritis (OA), Pneumonia Additional Past Medical History / Comment(s): FELL 07/09/19 FX LT RADIUS, FREQUENT FALLS-REASON UNKNOWN. 03-10-16 FELL/FX RT FIBULA, VERTIGO , chronic headaches, BREAST CANCER History of Any Multi-Drug Resistant Organisms: CRE, MRSA Date of last positivie culture/infection: 02/2017 MDRO Source:: MRSA Past Surgical History: Back Surgery, Breast Surgery, Orthopedic Surgery Additional Past Surgical History / Comment(s): Bilateral mastectomy with right sided lymp node removal due to cancer, R knee cap removed, Back surgery for herniated disc., Brain stem surgery for decompression-for dizziness, right ankle ORIF, bilateral wrist fractures SX Past Anesthesia/Blood Transfusion Reactions: No Reported Reaction Past Psychological History: No Psychological Hx Reported Smoking Status: Former smoker, Never smoker - Past Family History Father History Unknown: Yes Family Medical History: Congestive Heart Failure (CHF) Additional Family Medical History / Comment(s): at 68. Mother History Unknown: Yes Family Medical History: Hypertension Additional Family Medical History / Comment(s): Pulmonary hypertension. at 78. General Exam - General Exam Comments Initial Comments: Is a well-developed well-nourished awake alert oriented 3 male he demonstrated a Rossy Coma Scale of 15 Limitations: no limitations General appearance: alert, anxious Head exam: Present: atraumatic, normocephalic, normal inspection Eye exam: Present: normal appearance, PERRL, EOMI. Absent: scleral icterus, conjunctival injection, periorbital swelling ENT exam: Present: mucous membranes dry Neck exam: Present: normal inspection, tenderness (Is palpation of the p araspinous musclesof the neck no definite spinous process tenderness no step-off or crepitation) Respiratory exam: Present: normal lung sounds bilaterally. Absent: respiratory distress, wheezes, rales, rhonchi, stridor Cardiovascular Exam: Present: regular rate, normal rhythm, normal heart sounds. Absent: systolic murmur, diastolic murmur, rubs, gallop, clicks GI/Abdominal exam: Present: soft, normal bowel sounds. Absent: distended, tenderness, guarding, rebound, rigid Extremities exam: Present: full ROM, normal capillary refill, other (Dressing and wrap applied to the right knee) Back exam: Present: normal inspection Neurological exam: Present: alert, oriented X3, CN II-XII intact Psychiatric exam: Present: normal affect, normal mood Skin exam: Present: warm, dry, intact, normal color. Absent: rash Course Vital Signs 10/16/20 07:26 Temperature 98.1 F Pulse Rate 65 Respiratory 16 Rate Blood Pressure 117/72 O2 Sat by Pulse 97 Oximetry - Reevaluation(s) Reevaluation #1: 10/16/20 10:33 Reevaluation patient a/some neck pain though the CAT scan was negative for acute processes. He does demonstrate evidence of dehydration area Medical Decision Making - Medical Decision Making I did a long discussion with the patient he lives by himself and at this time. Inability to care for himself this time he does demonstrate evidence of dehydration and hypomagnesemia. He will be admitted for further inpatient evaluation and treatment IV fluids also or though consultation for postop evaluation of the right knee - Lab Data Result diagrams: 10/16/20 08:00 10/16/20 08:00 Lab Results 10/16/20 10/16/20 Range/Units 08:00 08:00 WBC 10.5 (3.8-10.6) k/uL RBC 4.03 L (4.30-5.90) m/uL Hgb 12.7 L (13.0-17.5) gm/dL Hct 39.4 (39.0-53.0) % MCV 97.8 (80.0-100.0) fL MCH 31.4 (25.0-35.0) pg MCHC 32.1 (31.0-37.0) g/dL RDW 13.5 (11.5-15.5) % Plt Count 199 (150-450) k/uL MPV 7.9 Neutrophils % 67 % Lymphocytes % 22 % Monocytes % 6 % Eosinophils % 3 % Basophils % 0 % Neutrophils # 7.1 (1.3-7.7) k/uL Lymphocytes # 2.3 (1.0-4.8) k/uL Monocytes # 0.6 (0-1.0) k/uL Eosinophils # 0.3 (0-0.7) k/uL Basophils # 0.0 (0-0.2) k/uL Sodium 142 (137-145) mmol/L Potassium 4.9 (3.5-5.1) mmol/L Chloride 108 H (98-107) mmol/L Carbon Dioxide 24 (22-30) mmol/L Anion Gap 10 mmol/L BUN 30 H (9-20) mg/dL Creatinine 1.18 (0.66-1.25) mg/dL Est GFR (CKD-EPI)AfAm 72 (>60 ml/min/1.73 sqM) Est GFR (CKD-EPI)NonAf 62 (>60 ml/min/1.73 sqM) Glucose 138 H (74-99) mg/dL Calcium 9.1 (8.4-10.2) mg/dL Magnesium 1.3 L (1.6-2.3) mg/dL Total Bilirubin 0.5 (0.2-1.3) mg/dL AST 25 (17-59) U/L ALT 15 (4-49) U/L Alkaline Phosphatase 47 (38-126) U/L Creatine Kinase 204 H (55-170) U/L Total Protein 6.5 (6.3-8.2) g/dL Albumin 4.1 (3.5-5.0) g/dL - Radiology Data Radiology results: report reviewed (Imaging reviewed no evidence of acute findings he does have chronic degenerative changes noted.), image reviewed Disposition Clinical Impression: Dehydration, Hypomagnesemia, Fall, Pain, Failure to thrive, Chronic vertigo Disposition: ADMITTED IP TO THIS HOSP Condition: Fair Referrals: Damon Rodriguez MD [Primary Care Provider] - 1-2 days
--- NOTE | 2020-10-16 09:08 | CT ---
EXAMINATION TYPE: CT brain cspine wo con DATE OF EXAM: 10/16/2020 COMPARISON: 07/06/2019 and prior HISTORY: 70-year-old male with fall headache and neck pain TECHNIQUE: CT scan of the head and cervical spine CT DLP: 2219 mGycm Automated exposure control for dose reduction was used. FINDINGS: CT head: Stable area of low attenuation is again demonstrated in the lateral aspect of the right cerebellum wi th overlying postsurgical changes. No evidence of acute intracranial hemorrhage, midline shift or mass effect. Clark-white matter differe ntiation is preserved. There is brain volume atrophy with prominence of the ventricles and CSF spaces , no evidence of hydrocephalus, this is not significantly changed since prior. No air-fluid levels in the paranasal sinuses or mastoid air cells. No acute calvarial fracture. No acute intraorbital abnor malities. CT cervical spine: There is motion artifact degrading quality of study and limiting evaluation of the cervical spine. The cervical junction alignment is maintained. There is straightening of the cervical curvature. The vertebral body heights within normal limits. The posterior elements are acutely intact. Multilevel narrowing of the intervertebral spaces, bilateral neural foraminal narrowing, disc osteoph yte complexes and ventral bony spurring is noted. This ranges from mild to moderate and is not signif icantly changed since most recent prior. Mild posterior soft tissue swelling noted. The prevertebral soft tissues are normal in thickness. The airway is patent. Atelectatic changes are seen in the lung apices. Atherosclerotic calcifications are seen in the aortic arch. Distention of the upper esophagus noted. The thyroid gland is not significantly enlarged. IMPRESSION: NO ACUTE INTRACRANIAL HEMORRHAGE MIDLINE SHIFT OR MASS EFFECT. STABLE ENCEPHALOMALACIA CHANGES IN THE RIGHT CEREBELLUM WITH POSTSURGICAL CHANGES. NO ACUTE FRACTURE OR DISLOCATION SEEN IN THE CERVICAL SPINE THOUGH EVALUATION IS SLIGHTLY LIMITED AND DEGRADED BY MOTION.
[2020-10-16] MEDS ORDERED: NALOXONE 0.4 MG/ML 1 ML VIAL IV PRN (10:37)
[2020-10-16] MEDS: HYDROmorphone 0.5 MG/0.5 ML SYRINGE IVP PRN ×3 (10:52→23:07)
[2020-10-16] MEDS: SODIUM CHLORIDE 0.9% 1,000 ML IV SCH ×2 (10:52→16:59)
--- NOTE | 2020-10-16 14:20 | XR ---
EXAMINATION TYPE: XR knee complete RT DATE OF EXAM: 10/16/2020 COMPARISON: 07/07/2020 HISTORY: 70 years Male. STUDY INDICATION GIVEN: Right knee pain TECHNIQUE: 3 radiographs of the right knee FINDINGS AND IMPRESSION: Generalized osteopenia. Healing fracture of the proximal fibula. Fracture line is displaced. Persistent slight anterior media l displacement. Small joint effusion. Mild osteoarthrosis. Loose bodies again seen in the knee joint. Enthesophyte changes at the attachment of the facets tendon.
[2020-10-16] MEDS: METOPROLOL TARTRATE 50 MG TAB PO SCH ×2 (15:49→21:10)
[2020-10-16] MEDS: metFORMIN 500 MG TAB PO SCH (16:56)
[2020-10-16] MEDS: HYDROcodone/APAP 5-325MG 1 EACH TAB PO PRN ×2 (16:58→21:10)
[2020-10-16 17:13] LABS: Glucose,Whole Blood 120 mg/dL (75-99)
[2020-10-16] MEDS: lisinopriL 20 MG TAB PO SCH (21:10)
[2020-10-16] MEDS: ATORVASTATIN 40 MG TAB PO SCH (21:10)
[2020-10-16] MEDS: GABAPENTIN 300 MG CAP PO SCH (21:10)
[2020-10-16] MEDS: DULoxetine HCL 30 MG CAPSULE.DR PO SCH (21:10)
[2020-10-16 21:30] LABS: Glucose,Whole Blood 125 mg/dL (75-99)
[2020-10-17] MEDS: HYDROcodone/APAP 5-325MG 1 EACH TAB PO PRN ×4 (02:21→21:13)
[2020-10-17] MEDS: SODIUM CHLORIDE 0.9% 1,000 ML IV SCH ×3 (02:59→15:48)
[2020-10-17] MEDS: HYDROmorphone 0.5 MG/0.5 ML SYRINGE IVP PRN ×4 (04:52→17:19)
[2020-10-17 07:11] LABS: Glucose,Whole Blood 117 mg/dL (75-99)
[2020-10-17] MEDS: METOPROLOL TARTRATE 50 MG TAB PO SCH ×3 (07:43→21:13)
[2020-10-17] MEDS: ENOXAPARIN 40 MG/0.4 ML SYRINGE SQ SCH (07:43)
[2020-10-17] MEDS: GABAPENTIN 300 MG CAP PO SCH ×2 (07:43→21:13)
[2020-10-17] MEDS: lisinopriL 20 MG TAB PO SCH ×2 (07:43→21:13)
[2020-10-17] MEDS: DULoxetine HCL 60 MG CAPSULE.DR PO SCH (07:43)
[2020-10-17] MEDS: BACLOFEN 10 MG TAB PO PRN ×2 (07:44→23:02)
[2020-10-17] MEDS: metFORMIN 500 MG TAB PO SCH ×2 (07:44→17:17)
--- NOTE | 2020-10-17 08:08 | P.CNOR ---
History of Present Illness - [facility] Consult date: 10/17/20 Consult reason: joint pain History of present illness: Patient is a 70-year-old male who presented to [facility] yesterday after falling at home. Patient was apparently in his wheelchair when the wheelchair tipped backwards and he fell backwards with the chair. Patient cannot remember the exact mechanism of the fall and what he landed on. He did describe and felt more pain inside the right knee after the fall, EMS to bring the patient to the hospital. Upon arrival to the hospital, imaging and lab tests were done, including a head/cervical spine computed tomography scan and a knee x-ray. There were no acute findings on either x-ray. Patient demonstrated signs of dehydration, he also was noted to low magnesium. Patient was admitted under internal medicine, our orthopedic team was consulted. Patient was evaluated today on the medical/surgical floor, he was resting in bed eating rectus. Patient underwent a right knee arthroscopy with Dr. Anderson on 10/13/2020. It was noted on operative report he had extensive meniscus tear on the medial side of the right knee, also noted a lateral meniscus tear and arthritic changes of the medial compartment.. Patient states that since the fall the right knee is bothering him more, he notes more of a generalized pain versus a localized area. Patient admits to using the wheelchair prior to the surgery more often, he does have a history of vertigo with frequent falls. He states that using the wheelchair makes her more comfortable and decrease his risk of falling. Patient does live alone. Currently patient is having no other acute orthopedic complaints, this to include new onset cervical, thoracic or lumbar pain, bilateral upper extremity pain or left lower extremity pain. He denies any headaches, lightheadedness, chest pain, nausea vomiting, fever or chills at this time. Review of Systems Constitutional: Reports as per HPI Past Medical History Past Medical History: Atrial Fibrillation, Cancer, Diabetes Mellitus, GERD/Reflux, Hyperlipidemia, Hypertension, Memory Impairment, Osteoarthritis (OA), Pneumonia Additional Past Medical History / Comment(s): FELL 07/09/19 FX LT RADIUS, FREQUENT FALLS-REASON UNKNOWN. 03-10-16 FELL/FX RT FIBULA, VERTIGO , chronic headaches, BREAST CANCER History of Any Multi-Drug Resistant Organisms: CRE, MRSA Year Discovered:: 02/2017 MDRO Source:: MRSA Past Surgical History: Back Surgery, Breast Surgery, Orthopedic Surgery Additional Past Surgical History / Comment(s): Bilateral mastectomy with right sided lymp node removal due to cancer, R knee cap removed, Back surgery for herniated disc., Brain stem surgery for decompression-for dizziness, right ankle ORIF, bilateral wrist fractures SX Past Anesthesia/Blood Transfusion Reactions: No Reported Reaction Past Psychological History: No Psychological Hx Reported Smoking Status: Former smoker Past Alcohol Use History: None Reported Additional Past Alcohol Use History / Comment(s): STARTED SMOKING AT AGE 18, SMOKE A PIPE GOES THRU A PACK OF PIPE TOBACCO/DAY quit smoking in 2005 Past Drug Use History: None Reported - Past Family History Father History Unknown: Yes Family Medical History: Congestive Heart Failure (CHF) Additional Family Medical History / Comment(s): at 68. Mother History Unknown: Yes Family Medical History: Hypertension Additional Family Medical History / Comment(s): Pulmonary hypertension. at 78. Medications and Allergies Home Medications Medication Instructions Recorded Confirmed Type DULoxetine HCL [Cymbalta] 30 mg PO HS 09/15/18 10/16/20 History metFORMIN HCL [Glucophage] 500 mg PO BID 12/17/18 10/16/20 History Metoprolol Tartrate [Lopressor] 50 mg PO TID 11/06/19 10/16/20 History Atorvastatin [Lipitor] 40 mg PO HS 06/18/20 10/16/20 History DULoxetine HCL [Cymbalta] 60 mg PO DAILY 06/18/20 10/16/20 History Baclofen [Lioresal] 20 mg PO BID PRN #6 tab 07/07/20 10/16/20 Rx Butalb/APAP/Caff 50-325-40Mg 1 tab PO TID PRN #9 tab 07/07/20 10/16/20 Rx [Fioricet 50-325-40] Gabapentin [Neurontin] 300 mg PO BID #6 cap 07/07/20 10/16/20 Rx lisinopriL 20 mg PO BID 10/11/20 10/16/20 History HYDROcodone/APAP 5-325MG [[place] 1 tab PO Q4HR PRN #25 tab 10/13/20 10/16/20 Rx 5-325] Allergies Allergy/AdvReac Type Severity Reaction Status Date / Time cephalexin monohydrate Allergy Anaphylaxis Verified 10/13/20 11:42 [From Keflex] Cephalosporins Allergy Anaphylaxis Verified 10/13/20 11:42 Penicillins Allergy Anaphylaxis Verified 10/13/20 11:42 Physical Examination Right lower extremity: The compression stocking was removed, the postop bandaging material was removed. 2 nylon sutures are noted on the medial and lateral portals of the right knee over the anterior aspect. Those are well healing at this time, there is no obvious drainage, there is no erythema. There is some generalized soft tissue swelling in the knee. There is no significant effusion appreciated on exam. Patient is generalized tenderness with palpation along the medial and lateral joint line. Patient is nontender with palpation of the proximal femur, he is nontender with palpation of the lower leg, including foot or ankle, specifically over the proximal fibula. Active range of motion, he can flex to about 50 before pain is reproduced, he has full extension. Plantar flexion, dorsiflexion, EHL, FHL are intact. Logroll maneuver of the hip reproduces no pain. Hip flexion is also intact. Sensory exam to light touch is intact throughout the extremity, his dorsalis ped is pulses 2+ Results - Labs Labs: Abnormal Lab Results - Last 24 Hours (Table) 10/16/20 10/16/20 10/16/20 Range/Units 08:00 08:00 16:52 RBC 4.03 L (4.30-5.90) m/uL Hgb 12.7 L (13.0-17.5) gm/dL Chloride 108 H (98-107) mmol/L BUN 30 H (9-20) mg/dL Glucose 138 H (74-99) mg/dL POC Glucose (mg/dL) 120 H (75-99) mg/dL Magnesium 1.3 L (1.6-2.3) mg/dL Creatine Kinase 204 H (55-170) U/L 10/16/20 10/17/20 Range/Units 21:23 07:10 RBC (4.30-5.90) m/uL Hgb (13.0-17.5) gm/dL Chloride (98-107) mmol/L BUN (9-20) mg/dL Glucose (74-99) mg/dL POC Glucose (mg/dL) 125 H 117 H (75-99) mg/dL Magnesium (1.6-2.3) mg/dL Creatine Kinase (55-170) U/L H & H 10/16/20 Range/Units 08:00 Hgb 12.7 L (13.0-17.5) gm/dL Hct 39.4 (39.0-53.0) % Result Diagrams: 10/16/20 08:00 10/16/20 08:00 - Diagnostic results Knee x-ray: report reviewed, image reviewed (3 views of the right knee were reviewed along with the report. No acute fractures or dislocations were appreciated. Did note his previous proximal fibular fracture, there are signs of healing including callus formation.) Assessment and Plan Assessment: Right knee pain Right knee osteoarthritis History of recent right knee arthroscopy with partial medial meniscectomy, partial lateral meniscectomy, medial femoral and tibial chondroplasty Vertigo Other medical comorbidities Plan: I was able to discuss the case, including the physical exam findings and imaging studies attending Dr. Anderson. Recommend no acute orthopedic surgical intervention at this time. This is likely an exacerbation of his knee symptoms also taken in consideration his recent knee surgery I would expect pain at this time. Patient showing no signs of infection at this time involving the right knee. Recommend weight-bear as tolerated with walker or cane for stabilization Use of anti-inflammatories, ice and elevation also very important at this time Pain control:, Low-dose oral narcotics as needed GI and DVT prophylaxis per primary medical service PT/OT evaluation Discharge planning: Anticipate discharge in the next day or 2 Time with Patient: Less than 30
[2020-10-17 09:54] LABS: Basophils # (A) 0.02 X 10*3/uL (0.00-0.10); Basophils % (A) 0.3 %; Eosinophils # (A) 0.31 X 10*3/uL (0.04-0.35); Eosinophils % (A) 4.2 %; HCT 37.5 % (39.6-50.0); HGB 11.8 g/dL (13.0-17.0); Lymphocytes # (A) 2.16 X 10*3/uL (0.90-5.00); Lymphocytes % (A) 29.2 %; MCH 31.1 pg (27.0-32.0); MCHC 31.5 g/dL (32.0-37.0); MCV 98.7 fL (80.0-97.0); Mean Platelet Volume 10.9 fL (9.5-12.2); Monocytes # (A) 0.56 X 10*3/uL (0.20-1.00); Monocytes % (A) 7.6 %; Neutrophils # (A) 4.33 X 10*3/uL (1.80-7.70); Neutrophils % (A) 58.4 %; Platelet Count 158 X 10*3/uL (140-440); RDW 13.4 % (11.5-14.5)
[2020-10-17 10:10] LABS: Anion Gap 6.9 mmol/L (4.00-12.00); Calcium 8.9 mg/dL (8.7-10.3); Carbon Dioxide 24.1 mmol/L (21.6-31.8); Magnesium 1.2 mg/dL (1.5-2.4); Non-African American GFR(CKD) 75.9 (60.0-200.0); Potassium 4.6 mmol/L (3.5-5.5)
[2020-10-17 11:39] LABS: Glucose,Whole Blood 121 mg/dL (75-99)
--- NOTE | 2020-10-17 16:10 | P.HPIM ---
History of Present Illness H&P Date: 10/16/20 Chief Complaint: Fall 70-year-old male with a long history of frequent falls hypertension memory impairment vertigo diabetes degenerative disc disease and a recent right knee surgery for meniscus injury who is brought in by EMS this way because he fell backwards in his wheelchair. He states he was trying to back up in the fell at 3 actually push wheelchair over. No loss of consciousness but he does complain some pain in the base of his neck he also has some postop pain but states this is nothing new. No fevers chills nausea vomiting sweats or other symptoms reported at this time. Workup completed in ED CAT scan was negative for acute processes Blood work reveals WBC 10.5, hemoglobin 12.7 and platelet count of 199, sodium 142, potassium 4.9, BUN/creatinine of 30/1.18 with glucose of 138; magnesium of 1.3 Issue and is being admitted to hospital for debility/falls and inability to care for self; orthopedic consult for postop evaluation--Patient underwent a right knee arthroscopy with Dr. Anderson on 10/13/2020 Review of Systems REVIEW OF SYSTEMS: CONSTITUTIONAL: No fever, no malaise, no fatigue. HEENT: No recent visual problems or hearing problems. Denied any sore throat. CARDIOVASCULAR: No chest pain, orthopnea, PND, no palpitations, no syncope. PULMONARY: No shortness of breath, no cough, no hemoptysis. GASTROINTESTINAL: No diarrhea, no nausea, no vomiting, no abdominal pain. NEUROLOGICAL: No headaches, no weakness, no numbness. HEMATOLOGICAL: Denies any bleeding or petechiae. GENITOURINARY: Denies any burning micturition, frequency, or urgency. MUSCULOSKELETAL/RHEUMATOLOGICAL: Denies any joint pain, swelling, or any muscle pain. ENDOCRINE: Denies any polyuria or polydipsia. The rest of the 14-point review of systems is negative. Past Medical History Past Medical History: Atrial Fibrillation, Cancer, Diabetes Mellitus, GERD/ Reflux, Hyperlipidemia, Hypertension, Memory Impairment, Osteoarthritis (OA), Pneumonia Additional Past Medical History / Comment(s): FELL 07/09/19 FX LT RADIUS, FREQUENT FALLS-REASON UNKNOWN. 03-10-16 FELL/FX RT FIBULA, VERTIGO , chronic headaches, BREAST CANCER History of Any Multi-Drug Resistant Organisms: CRE, MRSA Date of last positivie culture/infection: 02/2017 MDRO Source:: MRSA Past Surgical History: Back Surgery, Breast Surgery, Orthopedic Surgery Additional Past Surgical History / Comment(s): Bilateral mastectomy with right sided lymp node removal due to cancer, R knee cap removed, Back surgery for herniated disc., Brain stem surgery for decompression-for dizziness, right ankle ORIF, bilateral wrist fractures SX Past Anesthesia/Blood Transfusion Reactions: No Reported Reaction Past Psychological History: No Psychological Hx Reported Smoking Status: Former smoker Past Alcohol Use History: None Reported Additional Past Alcohol Use History / Comment(s): STARTED SMOKING AT AGE 18, SMOKE A PIPE GOES THRU A PACK OF PIPE TOBACCO/DAY quit smoking in 2005 Past Drug Use History: None Reported - Past Family History Father History Unknown: Yes Family Medical History: Congestive Heart Failure (CHF) Additional Family Medical History / Comment(s): at 68. Mother History Unknown: Yes Family Medical History: Hypertension Additional Family Medical History / Comment(s): Pulmonary hypertension. at 78. Medications and Allergies Home Medications Medication Instructions Recorded Confirmed Type DULoxetine HCL [Cymbalta] 30 mg PO HS 09/15/18 10/16/20 History metFORMIN HCL [Glucophage] 500 mg PO BID 12/17/18 10/16/20 History Metoprolol Tartrate [Lopressor] 50 mg PO TID 11/06/19 10/16/20 History Atorvastatin [Lipitor] 40 mg PO HS 06/18/20 10/16/20 History DULoxetine HCL [Cymbalta] 60 mg PO DAILY 06/18/20 10/16/20 History Baclofen [Lioresal] 20 mg PO BID PRN #6 tab 07/07/20 10/16/20 Rx Butalb/APAP/Caff 50-325-40Mg 1 tab PO TID PRN #9 tab 07/07/20 10/16/20 Rx [Fioricet 50-325-40] Gabapentin [Neurontin] 300 mg PO BID #6 cap 07/07/20 10/16/20 Rx lisinopriL 20 mg PO BID 10/11/20 10/16/20 History HYDROcodone/APAP 5-325MG [[place] 1 tab PO Q4HR PRN #25 tab 10/13/20 10/16/20 Rx 5-325] Allergies Allergy/AdvReac Type Severity Reaction Status Date / Time cephalexin monohydrate Allergy Anaphylaxis Verified 10/13/20 11:42 [From Keflex] Cephalosporins Allergy Anaphylaxis Verified 10/13/20 11:42 Penicillins Allergy Anaphylaxis Verified 10/13/20 11:42 Physical Exam Vitals: Vital Signs Temp Pulse Pulse Resp BP BP Pulse Ox 10/16/20 14:00 98.4 F 58 L 16 106/63 98 10/16/20 10:55 69 16 122/59 97 10/16/20 07:26 98.1 F 65 16 117/72 97 Intake and Output 10/16/20 10/16/20 10/16/20 06:59 14:59 22:59 Intake Total 240 Balance 240 Intake: Oral 240 Other: Weight 136.078 kg PHYSICAL EXAMINATION: GENERAL: The patient is alert and oriented x3, not in any acute distress. Well developed, well nourished. HEENT: Pupils are round and equally reacting to light. EOMI. No scleral icterus. No conjunctival pallor. Normocephalic, atraumatic. No pharyngeal erythema. No thyromegaly. CARDIOVASCULAR: S1 and S2 present. No murmurs, rubs, or gallops. PULMONARY: Chest is clear to auscultation, no wheezing or crackles. ABDOMEN: Soft, nontender, nondistended, normoactive bowel sounds. No palpable o rganomegaly. MUSCULOSKELETAL: No joint swelling or deformity. EXTREMITIES: No cyanosis, clubbing, or pedal edema. NEUROLOGICAL: Gross neurological examination did not reveal any focal deficits. SKIN: No rashes. Results CBC & Chem 7: 10/17/20 05:50 10/17/20 05:50 Labs: Abnormal Lab Results - Last 24 Hours (Table) 10/16/20 10/16/20 Range/Units 08:00 08:00 RBC 4.03 L (4.30-5.90) m/uL Hgb 12.7 L (13.0-17.5) gm/dL Chloride 108 H (98-107) mmol/L BUN 30 H (9-20) mg/dL Glucose 138 H (74-99) mg/dL Magnesium 1.3 L (1.6-2.3) mg/dL Creatine Kinase 204 H (55-170) U/L Thrombosis Risk Factor Assmnt - Choose All That Apply Each Factor Represents 1 point: Obesity (BMI >25) Other Risk Factors: Yes Each Risk Factor Represents 2 Points: Age 61-74 years Other congenital or acquired thrombophilia - If yes, enter type in comment: No Thrombosis Risk Factor Assessment Total Risk Factor Score: 3 Thrombosis Risk Factor Assessment Level: Moderate Risk Assessment and Plan Assessment: 1. Acute renal injury/dehydration; slow IV fluid hydration; we will monitor strict ELISABETH's, daily weights, renal function and electrolytes; avoid nephrotoxins 2. Hypomagnesemia; supplemented in ED; we will repeat electrolytes in next 24 hours and supplement as needed 3. Fall/debility/adult failure to thrive; consult PT/OT for evaluation 4. Right knee pain/Recent right knee arthroscopy/ right knee osteoarthritis; recent right knee arthroscopy with partial medial meniscectomy, partial lateral meniscectomy, medial femoral and tibial chondroplasty - We will consult orthopedic surgery for postoperative evaluation 5. Hypertension; stable on Lopressor 50 mg 3 times a day, lisinopril 20 mg twice a day 6. Hyperlipidemia; Lipitor 40 mg by mouth daily at bedtime 7. Diabetes mellitus type 2 without long-term insulin use/ neuropathy; continue with home dose of metformin 500 mg daily, monitor Accu-Cheks before meals and at bedtime with insulin sliding scale, continue with Neurontin 300 mg twice a day for neuropathy DVT prophylaxis; SCDs/subcu heparin CODE STATUS; full code
[2020-10-17] MEDS: MAGNESIUM SULFATE-D5W PMX 1 GM in DEXTROSE/WATER 1 100ML.BAG IVPB SCH ×4 (16:37→21:12)
[2020-10-17 16:57] LABS: Glucose,Whole Blood 130 mg/dL (75-99)
[2020-10-17 20:33] LABS: Glucose,Whole Blood 144 mg/dL (75-99)
[2020-10-17] MEDS: DULoxetine HCL 30 MG CAPSULE.DR PO SCH (21:13)
[2020-10-17] MEDS: ATORVASTATIN 40 MG TAB PO SCH (21:13)
--- NOTE | 2020-10-17 23:04 | P.PN ---
Subjective Progress Note Date: 10/17/20 Principal diagnosis: Acute renal injury/dehydration Severe hypomagnesemia Fall/debility/adult failure to thrive 70-year-old male with a long history of frequent falls hypertension memory impairment vertigo diabetes degenerative disc disease and a recent right knee surgery for meniscus injury who is brought in by EMS this way because he fell backwards in his wheelchair. He states he was trying to back up in the fell at 3 actually push wheelchair over. No loss of consciousness but he does complain some pain in the base of his neck he also has some postop pain but states this is nothing new. No fevers chills nausea vomiting sweats or other symptoms reported at this time. Workup completed in ED CAT scan was negative for acute processes Blood work reveals WBC 10.5, hemoglobin 12.7 and platelet count of 199, sodium 142, potassium 4.9, BUN/creatinine of 30/1.18 with glucose of 138; magnesium of 1.3 Issue and is being admitted to hospital for debility/falls and inability to care for self; orthopedic consult for postop evaluation--Patient underwent a right knee arthroscopy with Dr. Anderson on 10/13/2020 Patient has been evaluated by orthopedic surgery and no surgical recommendations at this time; lab review reveals persistent hypomagnesemia; we will supplement with 4 g of magnesium sulfate and repeat magnesium levels in next 24 hours; PT/OT were consulted and recommendations are pending- patient unable to care for self at home Objective - Vital Signs Vital signs: Vital Signs Temp 97.5 F L 10/17/20 13:47 Pulse 66 10/17/20 13:47 Resp 14 10/17/20 13:47 BP 136/79 10/17/20 13:47 Pulse Ox 94 L 10/17/20 13:47 Intake & Output 10/16/20 10/17/20 10/17/20 18:59 06:59 18:59 Intake Total 1650 800 Output Total 1500 1000 800 Balance 150 -1000 0 Weight 136.078 kg Intake: Intake, IV Titration 1010 Amount Magnesium Sulfate-D5w Pmx 100 1 gm In Dextrose/Water 1 100ml.bag @ 100 mls/hr IVPB ONCE ONE Rx#: [id number] Sodium Chloride 0.9% 1, 910 000 ml @ 130 mls/hr IV . Q7H42M [facility] Rx#:[id number] Oral 640 800 Output: Urine 1500 1000 800 Other: Voiding Method Urinal Urinal - Exam PHYSICAL EXAMINATION: GENERAL: The patient is alert and oriented x3, not in any acute distress. Well developed, well nourished. HEENT: Pupils are round and equally reacting to light. EOMI. No scleral icterus. No conjunctival pallor. Normocephalic, atraumatic. No pharyngeal erythema. No thyromegaly. CARDIOVASCULAR: S1 and S2 present. No murmurs, rubs, or gallops. PULMONARY: Chest is clear to auscultation, no wheezing or crackles. ABDOMEN: Soft, nontender, nondistended, normoactive bowel sounds. No palpable organomegaly. MUSCULOSKELETAL: No joint swelling or deformity. EXTREMITIES: No cyanosis, clubbing, or pedal edema. NEUROLOGICAL: Gross neurological examination did not reveal any focal deficits. SKIN: No rashes. - Labs CBC & Chem 7: 10/17/20 05:50 10/17/20 05:50 Labs: Abnormal Lab Results - Last 24 Hours (Table) 10/16/20 10/16/20 10/17/20 Range/Units 16:52 21:23 05:50 RBC 3.80 L (4.40-5.60) X 10*6/uL Hgb 11.8 L (13.0-17.0) g/dL Hct 37.5 L (39.6-50.0) % MCV 98.7 H (80.0-97.0) fL MCHC 31.5 L (32.0-37.0) g/dL BUN/Creatinine Ratio (12.00-20.00) Ratio POC Glucose (mg/dL) 120 H 125 H (75-99) mg/dL Magnesium (1.5-2.4) mg/dL 10/17/20 10/17/20 10/17/20 Range/Units 05:50 07:10 11:38 RBC (4.40-5.60) X 10*6/uL Hgb (13.0-17.0) g/dL Hct (39.6-50.0) % MCV (80.0-97.0) fL MCHC (32.0-37.0) g/dL BUN/Creatinine Ratio 22.00 H (12.00-20.00) Ratio POC Glucose (mg/dL) 117 H 121 H (75-99) mg/dL Magnesium 1.2 L (1.5-2.4) mg/dL Assessment and Plan Assessment: 1. Acute renal injury/dehydration; slow IV fluid hydration; we will monitor strict ELISABETH's, daily weights, renal function and electrolytes; avoid nephrotoxins 2. Hypomagnesemia; supplemented in ED; we will repeat electrolytes in next 24 hours and supplement as needed 3. Fall/debility/adult failure to thrive; consult PT/OT for evaluation 4. Right knee pain/Recent right knee arthroscopy/ right knee osteoarthritis; recent right knee arthroscopy with partial medial meniscectomy, partial lateral meniscectomy, medial femoral and tibial chondroplasty - We will consult orthopedic surgery for postoperative evaluation 5. Hypertension; stable on Lopressor 50 mg 3 times a day, lisinopril 20 mg twice a day 6. Hyperlipidemia; Lipitor 40 mg by mouth daily at bedtime 7. Diabetes mellitus type 2 without long-term insulin use/ neuropathy; continue with home dose of metformin 500 mg daily, monitor Accu-Cheks before meals and at bedtime with insulin sliding scale, continue with Neurontin 300 mg twice a day for neuropathy DVT prophylaxis; SCDs/subcu heparin CODE STATUS; full code
[2020-10-18] MEDS: HYDROmorphone 0.5 MG/0.5 ML SYRINGE IVP PRN ×4 (00:49→20:09)
[2020-10-18] MEDS: SODIUM CHLORIDE 0.9% 1,000 ML IV SCH ×3 (02:11→17:46)
[2020-10-18] MEDS: HYDROcodone/APAP 5-325MG 1 EACH TAB PO PRN ×4 (05:33→21:43)
[2020-10-18] MEDS: BUTALB/APAP/CAFF 50-325-40MG TAB PO PRN ×2 (05:35→20:08)
[2020-10-18 06:52] LABS: Glucose,Whole Blood 122 mg/dL (75-99)
[2020-10-18] MEDS: GABAPENTIN 300 MG CAP PO SCH ×2 (07:36→20:09)
[2020-10-18] MEDS: DULoxetine HCL 60 MG CAPSULE.DR PO SCH (07:36)
[2020-10-18] MEDS: METOPROLOL TARTRATE 50 MG TAB PO SCH ×3 (07:36→20:09)
[2020-10-18] MEDS: lisinopriL 20 MG TAB PO SCH ×2 (07:36→20:09)
[2020-10-18] MEDS: metFORMIN 500 MG TAB PO SCH ×2 (07:36→16:43)
[2020-10-18] MEDS: ENOXAPARIN 40 MG/0.4 ML SYRINGE SQ SCH (07:36)
[2020-10-18 11:46] LABS: African American GFR (CKD) 99.9 (60.0-200.0); Anion Gap 6.4 mmol/L (4.00-12.00); BUN/Creat Ratio 18.89 Ratio (12.00-20.00); Calcium 8.9 mg/dL (8.7-10.3); Carbon Dioxide 26.6 mmol/L (21.6-31.8); Magnesium 1.6 mg/dL (1.5-2.4); Non-African American GFR(CKD) 86.2 (60.0-200.0); Potassium 4.7 mmol/L (3.5-5.5)
[2020-10-18] MEDS: ATORVASTATIN 40 MG TAB PO SCH (20:09)
[2020-10-18] MEDS: DULoxetine HCL 30 MG CAPSULE.DR PO SCH (20:09)
--- NOTE | 2020-10-19 01:02 | P.PN ---
Subjective Progress Note Date: 10/18/20 Principal diagnosis: Acute renal injury/dehydration Severe hypomagnesemia Fall/debility/adult failure to thrive 70-year-old male with a long history of frequent falls hypertension memory impairment vertigo diabetes degenerative disc disease and a recent right knee surgery for meniscus injury who is brought in by EMS this way because he fell backwards in his wheelchair. He states he was trying to back up in the fell at 3 actually push wheelchair over. No loss of consciousness but he does complain some pain in the base of his neck he also has some postop pain but states this is nothing new. No fevers chills nausea vomiting sweats or other symptoms reported at this time. Workup completed in ED CAT scan was negative for acute processes Blood work reveals WBC 10.5, hemoglobin 12.7 and platelet count of 199, sodium 142, potassium 4.9, BUN/creatinine of 30/1.18 with glucose of 138; magnesium of 1.3 Issue and is being admitted to hospital for debility/falls and inability to care for self; orthopedic consult for postop evaluation--Patient underwent a right knee arthroscopy with Dr. Anderson on 10/13/2020 Patient has been evaluated by orthopedic surgery and no surgical recommendations at this time; lab review reveals persistent hypomagnesemia; we will supplement with 4 g of magnesium sulfate and repeat magnesium levels in next 24 hours; PT/OT were consulted and recommendations are pending- patient unable to care for self at home. 10/18/2020 Patient is currently resting in the bed awake alert when x3. Still complains of right knee pain and swelling. Unable to ambulate. PT OT was consulted. Magnesium is still low which is being replaced. Other lab data reviewed. Patient has been afebrile. Was seen by orthopedic surgery and recommends PT OT and weightbearing as tolerated. No acute surgical intervention was recommended at this time. Current medications reviewed. Objective - Vital Signs Vital signs: Vital Signs Temp 98.2 F 10/18/20 14:00 Pulse 64 10/18/20 14:00 Resp 19 10/18/20 14:00 BP 151/83 10/18/20 14:00 Pulse Ox 96 10/18/20 14:00 Intake & Output 10/17/20 10/18/20 10/18/20 18:59 06:59 18:59 Intake Total 800 400 Output Total 1600 1600 1975 Balance -800 -1600 -1575 Intake: Oral 800 400 Output: Urine 1599 1599 1974 Other: Voiding Method Urinal Urinal - Exam PHYSICAL EXAMINATION: GENERAL: The patient is alert and oriented x3, not in any acute distress. Well developed, well nourished. HEENT: Pupils are round and equally reacting to light. EOMI. No scleral icterus. No conjunctival pallor. Normocephalic, atraumatic. No pharyngeal erythema. No thyromegaly. CARDIOVASCULAR: S1 and S2 present. No murmurs, rubs, or gallops. PULMONARY: Chest is clear to auscultation, no wheezing or crackles. ABDOMEN: Soft, nontender, nondistended, normoactive bowel sounds. No palpable organomegaly. MUSCULOSKELETAL: No joint swelling or deformity. EXTREMITIES: No cyanosis, clubbing, or pedal edema. NEUROLOGICAL: Gross neurological examination did not reveal any focal deficits. SKIN: No rashes. - Labs CBC & Chem 7: 10/17/20 05:50 10/18/20 05:38 Labs: Abnormal Lab Results - Last 24 Hours (Table) 10/17/20 10/18/20 Range/Units 20:32 06:51 POC Glucose (mg/dL) 144 H 122 H (75-99) mg/dL Assessment and Plan Assessment: 1. Acute renal injury/dehydration; slow IV fluid hydration; avoid nephrotoxins. improved. 2. Hypomagnesemia; supplemented in ED; we will repeat electrolytes in next 24 hours and supplement as needed 3. Fall/debility/adult failure to thrive; consulted PT/OT for evaluation. possible Rehab. 4. Right knee pain/Recent right knee arthroscopy/ right knee osteoarthritis; recent right knee arthroscopy with partial medial meniscectomy, partial lateral meniscectomy, medial femoral and tibial chondroplasty - consulted orthopedic surgery for postoperative evaluation. Recommend no acute orthopedic surgical intervention at this time. Weight bearing as tolerated. 5. Hypertension; stable on Lopressor 50 mg 3 times a day, lisinopril 20 mg twice a day 6. Hyperlipidemia; Lipitor 40 mg by mouth daily at bedtime 7. Diabetes mellitus type 2 without long-term insulin use/ neuropathy; continue with home dose of metformin 500 mg daily, monitor Accu-Cheks before meals and at bedtime with insulin sliding scale, continue with Neurontin 300 mg twice a day for neuropathy DVT prophylaxis; SCDs/subcu heparin CODE STATUS; full code Time with Patient: Greater than 30
[2020-10-19] MEDS: HYDROmorphone 0.5 MG/0.5 ML SYRINGE IVP PRN ×2 (01:18→05:57)
[2020-10-19 07:50] LABS: Basophils % (A) 0 %; Eosinophils # (A) 0.4 k/uL (0-0.7); Eosinophils % (A) 5 %; HCT 40.3 % (39.0-53.0); Lymphocytes # (A) 1.9 k/uL (1.0-4.8); Lymphocytes % (A) 23 %; MCH 31.4 pg (25.0-35.0); MCHC 32.1 g/dL (31.0-37.0); MCV 97.7 fL (80.0-100.0); Mean Platelet Volume 8.3; Monocytes # (A) 0.6 k/uL (0-1.0); Monocytes % (A) 7 %; Neutrophils # (A) 5.2 k/uL (1.3-7.7); Neutrophils % (A) 63 %; Platelet Count 190 k/uL (150-450); RBC 4.13 m/uL (4.30-5.90); RDW 13.2 % (11.5-15.5); WBC 8.1 k/uL (3.8-10.6)
[2020-10-19 08:19] LABS: ALT 12 U/L (4-49); AST 21 U/L (17-59); African American GFR (CKD) >90 (>60 ml/min/1.73 sqM); Albumin 3.7 g/dL (3.5-5.0); Albumin/Globulin Ratio 1.5; Alkaline Phosphatase 54 U/L (38-126); Anion Gap 6 mmol/L; Blood Urea Nitrogen 15 mg/dL (9-20); Calcium 9.3 mg/dL (8.4-10.2); Carbon Dioxide 26 mmol/L (22-30); Chloride 106 mmol/L (98-107); Globulin 2.4 g/dL; Glucose 105 mg/dL (74-99); Magnesium 1.3 mg/dL (1.6-2.3); Non-African American GFR(CKD) >90 (>60 ml/min/1.73 sqM); Potassium 4.6 mmol/L (3.5-5.1); Sodium 138 mmol/L (137-145); Total Bilirubin 0.6 mg/dL (0.2-1.3); Total Protein 6.1 g/dL (6.3-8.2)
[2020-10-19] MEDS: HYDROcodone/APAP 5-325MG 1 EACH TAB PO PRN (08:22)
[2020-10-19] MEDS: BUTALB/APAP/CAFF 50-325-40MG TAB PO PRN ×2 (08:23→20:21)
[2020-10-19] MEDS: BACLOFEN 10 MG TAB PO PRN (08:23)
[2020-10-19] MEDS: GABAPENTIN 300 MG CAP PO SCH ×2 (08:23→20:02)
[2020-10-19] MEDS: metFORMIN 500 MG TAB PO SCH ×2 (08:23→17:32)
[2020-10-19] MEDS: METOPROLOL TARTRATE 50 MG TAB PO SCH ×3 (08:23→21:58)
[2020-10-19] MEDS: lisinopriL 20 MG TAB PO SCH ×2 (08:23→20:02)
[2020-10-19] MEDS: DULoxetine HCL 60 MG CAPSULE.DR PO SCH (08:23)
[2020-10-19] MEDS: MAGNESIUM SULFATE-D5W PMX 1 GM in DEXTROSE/WATER 1 100ML.BAG IVPB SCH ×2 (08:24→09:49)
--- NOTE | 2020-10-19 10:05 | XR ---
EXAMINATION TYPE: XR knee complete LT DATE OF EXAM: 10/19/2020 COMPARISON: NONE HISTORY: Pain TECHNIQUE: Three views are submitted. FINDINGS: Severe arthropathy of the patellofemoral joint. Soft tissue ossification posteriorly. There is mild t o moderate narrowing of the medial compartment of the knee joint. Diffuse osteopenia. No acute fractu re. No dislocation.. Osseous structures are intact. No acute fracture seen. Small amount of fluid in suprapatellar bursa. IMPRESSION: 1. Osteoarthritis most marked involving patellofemoral joint. 2. Small amount of fluid in the suprapatellar bursa consider follow-up MRI..
[2020-10-19] MEDS: HYDROcodone/APAP 10-325MG 1 EACH TAB PO PRN ×2 (11:46→17:33)
--- NOTE | 2020-10-19 13:48 | P.PN ---
Progress Note - Text Progress Note Date: 10/19/20 Patient seen and examined this morning he is doing well no issues overnight states he was up walking yesterday with a walker but he does have quite a bit of pain. He denies any other symptoms no fever chills of breath or chest pain. On exam he really has no pain on passive range of motion of the right knee swelling is minimal dressings in place OBDULIA hose in place is able to wiggle his toes Dors flexion 5 flexion EHL FHL as well as knee flexion and extension with 505 strength without any issues seeing for his left lower extremity negative Homans bilaterally. All major muscle groups of upper extremities have good motion. Incisions are clean and dry. We will continue to monitor him clinically he is stable per orthopedics for discharge to rehab or with home care
[2020-10-19] MEDS: SODIUM CHLORIDE 0.9% 1,000 ML IV SCH (14:17)
--- NOTE | 2020-10-19 19:25 | P.PN ---
Subjective Progress Note Date: 10/19/20 Principal diagnosis: Acute renal injury/dehydration Hypomagnesemia Falls 70-year-old male was admitted to the hospital with significant medical history of frequent falls, hypertension, memory impairment, vertigo, diabetes mellitus type 2, degenerative disc disease, GERD/reflux, hyperlipidemia, osteoarthritis, and recent right knee surgery for meniscus injury. Per the emergency department notes patient stated he fell back in his wheelchair, while trying to maneuver the wheelchair. Patient denied loss of consciousness, loss of bowel or bladder. Patient had significant diagnostic workup in the emergency department revealing acute kidney injury, dehydration, low magnesium, and generalized weakness. 10/19/2020 Patient seen and examined at bedside. Patient resting comfortably in bed. Patient complaint of left knee pain with associated fall into wheelchair, right knee pain due to recent right knee meniscus surgery. Patient continues to endorse generalized pain and weakness. Patient denies fever, chills, shortness of breath, chest pain, palpitations, abdominal pain, nausea or vomiting or diarrhea. Patient continues to have concerns returning home, explained in great detail with patient would benefit from rehab due to recent knee surgery and frequent falls. Patient no acute signs of distress at this time Objective - Vital Signs Vital signs: Vital Signs Temp 98.7 F 10/19/20 14:00 Pulse 64 10/19/20 14:00 Resp 18 10/19/20 14:00 BP 146/75 10/19/20 14:00 Pulse Ox 95 10/19/20 14:00 Intake & Output 10/19/20 10/19/20 10/20/20 06:59 18:59 06:59 Output Total 2250 Balance -2250 Output: Urine 2250 Other: # Voids 2 - Constitutional General appearance: Present: cooperative - EENT Eyes: Present: EOMI, PERRLA ENT: Present: hard of hearing Ears: bilateral: normal - Neck Carotids: bilateral: upstroke normal - Respiratory Respiratory: bilateral: CTA (Anterior and posterior lung bishop) - Cardiovascular Heart rate: 84 Heart sounds: normal: S1, S2 - Peripheral pulses radial pulse Peripheral Pulses: bilateral: Normal - Gastrointestinal General gastrointestinal: Present: normal bowel sounds - Integumentary Integumentary: Present: decreased turgor - Neurologic Neurologic: Present: CNII-XII intact - Musculoskeletal Musculoskeletal: Present: generalized weakness - Psychiatric Psychiatric: Present: A&O x's 3 - Allied health notes Allied health notes reviewed: nursing - Labs CBC & Chem 7: 10/19/20 06:17 10/19/20 06:17 Labs: Abnormal Lab Results - Last 24 Hours (Table) 10/19/20 10/19/20 Range/Units 06:17 06:17 RBC 4.13 L (4.30-5.90) m/uL Glucose 105 H (74-99) mg/dL Magnesium 1.3 L (1.6-2.3) mg/dL Total Protein 6.1 L (6.3-8.2) g/dL - Imaging and Cardiology Left knee x-ray Assessment and Plan Assessment: Acute renal failure/dehydration Low magnesium Fall Recent knee pain, recent knee arthroscopy, right knee osteoarthritis; right knee arthroscopy with partial medial meniscectomy Hypertension Hyperlipidemia Diabetes mellitus type 2 GERD/reflux Memory impairment History of breast cancer Chronic back pain Full code Plan: Acute renal injury/dehydration continue gentle IV hydration Low magnesium continue magnesium replacement Postop right knee continue consultation with orthopedics for recommendations and treatment plan Continue medical management Further recommendations to come based on patient's clinical condition Hopeful discharge to halfway facility for rehab with the next 24-48 hours Time with Patient: Greater than 30
[2020-10-19] MEDS: DULoxetine HCL 30 MG CAPSULE.DR PO SCH (20:02)
[2020-10-19] MEDS: ATORVASTATIN 40 MG TAB PO SCH (20:02)
[2020-10-20] MEDS: HYDROcodone/APAP 10-325MG 1 EACH TAB PO PRN ×4 (08:01→21:43)
[2020-10-20] MEDS: lisinopriL 20 MG TAB PO SCH ×2 (08:02→21:42)
[2020-10-20] MEDS: GABAPENTIN 300 MG CAP PO SCH ×2 (08:02→21:42)
[2020-10-20] MEDS: METOPROLOL TARTRATE 50 MG TAB PO SCH ×3 (08:02→21:42)
[2020-10-20] MEDS: metFORMIN 500 MG TAB PO SCH ×2 (08:02→16:17)
[2020-10-20] MEDS: DULoxetine HCL 60 MG CAPSULE.DR PO SCH (08:02)
[2020-10-20] MEDS: ENOXAPARIN 40 MG/0.4 ML SYRINGE SQ SCH (08:02)
[2020-10-20] MEDS: BUTALB/APAP/CAFF 50-325-40MG TAB PO PRN ×2 (08:25→21:50)
[2020-10-20 11:58] LABS: Anion Gap 12.3 mmol/L (4.00-12.00); Calcium 9.2 mg/dL (8.7-10.3); Carbon Dioxide 25.7 mmol/L (21.6-31.8); Magnesium 1.2 mg/dL (1.5-2.4); Non-African American GFR(CKD) 75.9 (60.0-200.0); Potassium 4.5 mmol/L (3.5-5.5)
[2020-10-20] MEDS ORDERED: Magnesium Replacement Protocol 1 EACH MISC MISCELLANE PRN (13:26)
[2020-10-20] MEDS: MAGNESIUM SULFATE-D5W PMX 1 GM in DEXTROSE/WATER 1 100ML.BAG IVPB SCH ×3 (14:05→17:59)
--- NOTE | 2020-10-20 17:37 | P.PN ---
Subjective Progress Note Date: 10/20/20 Principal diagnosis: Acute renal injury/dehydration Hypomagnesemia Falls 70-year-old male was admitted to the hospital with significant medical history of frequent falls, hypertension, memory impairment, vertigo, diabetes mellitus type 2, degenerative disc disease, GERD/reflux, hyperlipidemia, osteoarthritis, and recent right knee surgery for meniscus injury. Per the emergency department notes patient stated he fell back in his wheelchair, while trying to maneuver the wheelchair. Patient denied loss of consciousness, loss of bowel or bladder. Patient had significant diagnostic workup in the emergency department revealing acute kidney injury, dehydration, low magnesium, and generalized weakness. 10/19/2020 Patient seen and examined at bedside. Patient resting comfortably in bed. Patient complaint of left knee pain with associated fall into wheelchair, right knee pain due to recent right knee meniscus surgery. Patient continues to endorse generalized pain and weakness. Patient denies fever, chills, shortness of breath, chest pain, palpitations, abdominal pain, nausea or vomiting or diarrhea. Patient continues to have concerns returning home, explained in great detail with patient would benefit from rehab due to recent knee surgery and frequent falls. Patient no acute signs of distress at this time 10/20/2020 Patient seen and examined at bedside. Patient resting comfortably in bed. Patient continues to endorse generalized pain with concentration on bilateral knees. Patient continues to have low magnesium supplement magnesium IV, continue IV hydration, and physical therapy occupational therapy for possible rehab. Patient in no acute signs of distress Objective - Vital Signs Vital signs: Vital Signs Temp 98.1 F 10/20/20 14:00 Pulse 95 10/20/20 14:00 Resp 17 10/20/20 14:00 BP 110/68 10/20/20 14:00 Pulse Ox 96 10/20/20 14:00 Intake & Output 10/19/20 10/20/20 10/20/20 18:59 06:59 18:59 Output Total 2250 875 600 Balance -2250 -875 -600 Output: Urine 2250 875 600 Other: Voiding Method Urinal Urinal - Constitutional General appearance: Present: cooperative - EENT Eyes: Present: EOMI, PERRLA Ears: bilateral: normal - Neck Carotids: bilateral: upstroke normal Thyroid: bilateral: normal size - Respiratory Respiratory: bilateral: CTA (Anterior and posterior lung bishop) - Cardiovascular Heart rate: 84 Rhythm: regular Heart sounds: normal: S1, S2 - Peripheral pulses radial pulse Peripheral Pulses: bilateral: Normal femoral Peripheral Pulses: bilateral: Normal - Gastrointestinal General gastrointestinal: Present: normal bowel sounds - Integumentary Integumentary: Present: normal turgor - Neurologic Neurologic: Present: CNII-XII intact - Musculoskeletal Musculoskeletal: Present: generalized weakness - Psychiatric Psychiatric: Present: A&O x's 3, appropriate affect, intact judgment & insight - Allied health notes Allied health notes reviewed: nursing - Labs CBC & Chem 7: 10/19/20 06:17 10/20/20 04:26 Labs: Abnormal Lab Results - Last 24 Hours (Table) 10/20/20 Range/Units 04:26 Anion Gap 12.30 H (4.00-12.00) mmol/L Magnesium 1.2 L (1.5-2.4) mg/dL Assessment and Plan Assessment: Acute renal failure/dehydration Low magnesium Fall Recent knee pain, recent knee arthroscopy, right knee osteoarthritis; right knee arthroscopy with partial medial meniscectomy Hypertension Hyperlipidemia Diabetes mellitus type 2 GERD/reflux Memory impairment History of breast cancer Chronic back pain Full code Plan: Acute renal injury/dehydration continue gentle IV hydration Low magnesium continue magnesium replacement Postop right knee continue consultation with orthopedics for recommendations and treatment plan Continue medical management Further recommendations to come based on patient's clinical condition Hopeful discharge to [facility] facility for rehab with the next 24-48 hours Time with Patient: Greater than 30
[2020-10-20] MEDS: SODIUM CHLORIDE 0.9% 1,000 ML IV SCH (18:02)
[2020-10-20] MEDS: DULoxetine HCL 30 MG CAPSULE.DR PO SCH (21:42)
[2020-10-20] MEDS: ATORVASTATIN 40 MG TAB PO SCH (21:42)
[2020-10-20] MEDS ORDERED: HYDROcodone/APAP 5-325MG 1 EACH TAB ONE (23:59)
[2020-10-21] MEDS: HYDROcodone/APAP 10-325MG 1 EACH TAB PO PRN ×5 (02:53→21:18)
[2020-10-21] MEDS: SODIUM CHLORIDE 0.9% 1,000 ML IV SCH (05:56)
[2020-10-21] MEDS: ENOXAPARIN 40 MG/0.4 ML SYRINGE SQ SCH (08:17)
[2020-10-21] MEDS: lisinopriL 20 MG TAB PO SCH ×2 (08:18→21:13)
[2020-10-21] MEDS: GABAPENTIN 300 MG CAP PO SCH ×2 (08:18→21:13)
[2020-10-21] MEDS: METOPROLOL TARTRATE 50 MG TAB PO SCH ×3 (08:18→21:13)
[2020-10-21] MEDS: metFORMIN 500 MG TAB PO SCH ×2 (08:18→16:34)
[2020-10-21] MEDS: DULoxetine HCL 60 MG CAPSULE.DR PO SCH (08:18)
[2020-10-21] MEDS: BUTALB/APAP/CAFF 50-325-40MG TAB PO PRN ×2 (08:22→21:17)
--- NOTE | 2020-10-21 09:40 | P.PN ---
Subjective Progress Note Date: 10/21/20 Principal diagnosis: Left knee pain and effusion, right knee pain status post right knee arthroscopy Patient was evaluated today at bedside, he is resting in his hospital bed. Som marcano's right knee seems to be improving slightly since his recent surgery, the central demonstrating discomfort. Internal medicine has been on a patient with regards to his left knee, there was an MRI ordered for 10/21/2020. We discussed left knee briefly a few days prior, x-rays were reviewed which demonstrated no acute fractures or dislocations. Obvious osteoarthritis is present throughout t he knee. With patient's recent fall, he cannot confirm it she fell on the left knee. He notices discomfort with ambulation and notices difficulty putting full weight through that left knee. He denies any previous surgery involving the left knee. Objective - Vital Signs Vital signs: Vital Signs Temp 97.9 F 10/21/20 08:00 Pulse 61 10/21/20 08:00 Resp 18 10/21/20 08:00 BP 153/84 10/21/20 08:00 Pulse Ox 91 L 10/21/20 08:00 Intake & Output 10/20/20 10/21/20 10/21/20 18:59 06:59 18:59 Output Total 1250 1100 Balance -1250 -1100 Output: Urine 1250 1100 Other: Voiding Method Urinal Urinal - Exam Right knee: Nylon sutures present on the medial and lateral joint line from his arthroscopic portals. There is a small joint effusion appreciated. Passive range of motion, 0-110. Mild pain is reproduced on range of motion exam. There is no erythema, areas of fluctuance or increase in temperature noted. He has general tenderness with palpation along the medial and lateral joint line. Calf is soft, no tenderness with palpation. Plantar flexion, dorsiflexion, EHL, FHL are intact. Sensory exam light touch is intact throughout the extremity, dorsalis pedis pulses 2+ Left knee: Notable effusion present on the knee, there is no erythema, lesions or open areas, or increase in warmth in the skin. He has generalized tenderness with p alpation of the knee. Range of motion, actively after 90 of flexion he does notice pain over the anterior aspect of the knee. He does have some mild medial and lateral joint line tenderness. Passive range of motion I am able to flex the knee past 90 with minimal discomfort. Calf is soft, no tenderness with palpation. Plantar flexion, dorsiflexion, EHL, FHL are intact. Sensory exam to light touch is intact at the extremity, dorsalis pedis pulses 2+ - Labs CBC & Chem 7: 10/19/20 06:17 10/20/20 04:26 Labs: Abnormal Lab Results - Last 24 Hours (Table) 10/20/20 Range/Units 04:26 Anion Gap 12.30 H (4.00-12.00) mmol/L Magnesium 1.2 L (1.5-2.4) mg/dL Assessment and Plan Assessment: Right knee pain Right knee osteoarthritis History of recent right knee arthroscopy with partial medial meniscectomy, partial lateral meniscectomy, medial femoral and tibial chondroplasty Left knee pain with effusion Left knee osteoarthritis Vertigo Other medical comorbidities Plan: Dr. Anderson and was available today bedside to discuss treatment options with the patient. With the effusion that is present along the x-ray findings of osteoarthritis on the left knee we do recommend an aspiration with possible cortisone injection to help with his symptoms. Depending on the findings during the aspiration considering canceling MRI of the left knee. Risk and benefits of the procedure were discussed the patient today at bedside, he is in agreement incision would like to proceed. Please see procedure note for further detail. Aspiration of the left knee revealed no obvious acute infectious process, a steroid injection of 1 mL of 1% lidocaine, 1 mL of quarter percent plain Marcaine and 40 mg of Depo-Medrol was placed into the knee. Patient tolerated procedure well. I was able to contact internal medicine doctor and discuss case with him. We will plan to cancel the MRI at this time of the left knee Recommend weight-bear as tolerated with walker or cane for stabilization Use of anti-inflammatories, ice and elevation also very important at this time GI and DVT prophylaxis per primary medical service PT/OT evaluation Discharge planning: on an orthopedic standpoint patient remained stable for discharge and follow-up with Dr. Anderson in 10 days for recheck Time with Patient: Less than 30
--- NOTE | 2020-10-21 09:44 | P.PCN ---
Date of Procedure: 10/21/20 Preoperative Diagnosis: Left knee pain, left knee effusion, left knee osteoarthritis Postoperative Diagnosis: Same Procedure(s) Performed: Left knee aspiration with intra-articular cortisone injection Anesthesia: regional Surgeon: Jose Guadalupe Paige Assistant #1: Kevin Newman Pathology: none sent Condition: stable Disposition: no change Indications for Procedure: Left knee pain with effusion Description of Procedure: We're able to discuss with the patient the current diagnosis and possible treatment options. We discussed the possibility of the left knee aspiration with cortisone injection, this to include both risk and benefits. The patient was in [facility] and wanted to proceed. A consent form along with Timeout was obtained with the nursing staff prior to the procedure, proper documentation was done. Patient was in the supine position, the knee was prepped with 1 iodine swab and one alcohol swabs. A 20-gauge needle was used to first inject into the suprapatellar area 3 mL of 1% plain lidocaine. After anesthetization, and aspiration of the left knee was done, about 25 mL of bloody serosanguineous joint fluid was obtained. No obvious purulence was visualized on exam. After appropriate aspiration was done, the syringes were changed, we then placed 1 mL of 1% plain lidocaine, 1 mL of 0.25% plain Marcaine, and 40 mg Depo-Medrol into the knee. A bandages in place, the patient tolerated procedure well.
[2020-10-21] MEDS ORDERED: Magnesium Replacement Protocol 1 EACH MISC MISCELLANE PRN (12:59)
[2020-10-21] MEDS: MAGNESIUM SULFATE-D5W PMX 1 GM in DEXTROSE/WATER 1 100ML.BAG IVPB SCH ×3 (13:16→16:35)
[2020-10-21 13:59] VITALS: BMI 32.9
[2020-10-21] MEDS ORDERED: diphenhydrAMINE 50 MG/ML 1 ML VIAL IM STA (15:59)
[2020-10-21] MEDS ORDERED: methylPREDNISolone SOD SUCCI 125 MG/2 ML VIAL IM ONE (16:15)
--- NOTE | 2020-10-21 18:35 | P.PN ---
Subjective Progress Note Date: 10/21/20 Principal diagnosis: Acute renal injury/dehydration Postop right knee surgery Left knee effusion Hypomagnesemia Falls 70-year-old male was admitted to the hospital with significant medical history of frequent falls, hypertension, memory impairment, vertigo, diabetes mellitus type 2, degenerative disc disease, GERD/reflux, hyperlipidemia, osteoarthritis, and recent right knee surgery for meniscus injury. Per the emergency department notes patient stated he fell back in his wheelchair, while trying to maneuver the wheelchair. Patient denied loss of consciousness, loss of bowel or bladder. Patient had significant diagnostic workup in the emergency department revealing acute kidney injury, dehydration, low magnesium, and generalized weakness. 10/19/2020 Patient seen and examined at bedside. Patient resting comfortably in bed. Patient complaint of left knee pain with associated fall into wheelchair, right knee pain due to recent right knee meniscus surgery. Patient continues to endorse generalized pain and weakness. Patient denies fever, chills, shortness of breath, chest pain, palpitations, abdominal pain, nausea or vomiting or diarrhea. Patient continues to have concerns returning home, explained in great detail with patient would benefit from rehab due to recent knee surgery and frequent falls. Patient no acute signs of distress at this time 10/20/2020 Patient seen and examined at bedside. Patient resting comfortably in bed. Patient continues to endorse generalized pain with concentration on bilateral knees. Patient continues to have low magnesium supplement magnesium IV, continue IV hydration, and physical therapy occupational therapy for possible rehab. Patient in no acute signs of distress 10/21/2020 Patient seen and examined at bedside. Patient resting comfortably in bed. Patient informed of replace electrolytes and IV fluids. Patient has been evaluated by orthopedics for postop right knee, awaiting orthopedics to provide recommendations and treatment plan regarding left knee effusion. Patient continues to endorse bilateral knee pain and chronic back pain. Patient no acute signs of distress. Patient wishes to go to rehab for generalized weakness and postop knee. Objective - Vital Signs Vital signs: Vital Signs Temp 98.1 F 10/21/20 14:00 Pulse 67 10/21/20 14:00 Resp 18 10/21/20 14:00 BP 153/79 10/21/20 14:00 Pulse Ox 94 L 10/21/20 14:00 Intake & Output 10/20/20 10/21/20 10/21/20 18:59 06:59 18:59 Output Total 1250 1100 800 Balance -1250 -1100 -800 Weight 136.078 kg Output: Urine 1250 1100 800 Other: Voiding Method Urinal Urinal Urinal - Constitutional General appearance: Present: cooperative - EENT Eyes: Present: EOMI, PERRLA - Neck Neck: Present: normal ROM Carotids: bilateral: upstroke normal - Respiratory Respiratory: bilateral: CTA (Anterior and posterior lung bishop) - Cardiovascular Heart rate: 87 Rhythm: regular Heart sounds: normal: S1, S2 - Peripheral pulses dorsalis pedis Peripheral Pulses: bilateral: Normal radial pulse Peripheral Pulses: bilateral: Normal - Gastrointestinal General gastrointestinal: Present: normal bowel sounds - Integumentary Integumentary: Present: decreased turgor - Neurologic Neurologic: Present: CNII-XII intact - Musculoskeletal Musculoskeletal: Present: generalized weakness - Psychiatric Psychiatric: Present: appropriate affect, intact judgment & insight - Allied health notes Allied health notes reviewed: nursing - Labs CBC & Chem 7: 10/19/20 06:17 10/20/20 04:26 Assessment and Plan Assessment: Acute renal failure/dehydration Low magnesium Fall Recent knee pain, recent knee arthroscopy, right knee osteoarthritis; right knee arthroscopy with partial medial meniscectomy Left knee effusion Hypertension Hyperlipidemia Diabetes mellitus type 2 GERD/reflux Memory impairment History of breast cancer Chronic back pain Full code Plan: Acute renal injury/dehydration continue gentle IV hydration Low magnesium continue magnesium replacement Postop right knee continue consultation with orthopedics for recommendations and treatment plan Left knee effusion noted awaiting treatment plan from orthopedics Continue medical management Further recommendations to come based on patient's clinical condition Hopeful discharge to [facility] facility for rehab with the next 24-48 hours Time with Patient: Greater than 30
[2020-10-21 19:56] LABS: Albumin 4.3 g/dL (3.80-4.90); Albumin/Globulin Ratio 1.95 (1.60-3.17); Anion Gap 17.7 mmol/L (4.00-12.00); Calcium 9.2 mg/dL (8.7-10.3); Carbon Dioxide 20.3 mmol/L (21.6-31.8); Globulin 2.2 g/dL (1.6-3.3); Magnesium 1.6 mg/dL (1.5-2.4); Non-African American GFR(CKD) 75.9 (60.0-200.0); Potassium 4.7 mmol/L (3.5-5.5); Total Bilirubin 0.5 mg/dL (0.3-1.2); Total Protein 6.5 g/dL (6.2-8.2)
[2020-10-21] MEDS ORDERED: HYDROCORTISONE 1% CREAM 454 GM JAR TOPICAL SCH (21:00)
[2020-10-21] MEDS: ATORVASTATIN 40 MG TAB PO SCH (21:13)
[2020-10-21] MEDS: DULoxetine HCL 30 MG CAPSULE.DR PO SCH (21:13)
[2020-10-21] MEDS: MAGNESIUM OXIDE 400 MG TAB PO SCH (21:13)
[2020-10-22] MEDS: SODIUM CHLORIDE 0.9% 1,000 ML IV SCH (01:48)
[2020-10-22] MEDS: HYDROcodone/APAP 10-325MG 1 EACH TAB PO PRN ×2 (01:51→07:39)
[2020-10-22] MEDS: BACLOFEN 10 MG TAB PO PRN (01:52)
--- NOTE | 2020-10-22 07:32 | P.DS ---
Providers Date of admission: 10/19/20 15:48 Expected date of discharge: 10/22/20 Attending physician: Damon Rodriguez Consults: 10/16/20 10:39 Consult Physician Routine Consulting Provider: Emir Anderson Consult Reason/Comments: Post op Evaluation right knee Do you want consulting provider notified?: Yes Primary care physician: Damon Rodriguez Hospital Course: 70-year-old male was admitted to the hospital with significant medical history of frequent falls, hypertension, memory impairment, vertigo, diabetes mellitus type2 , degenerative disc disease, GERD/reflux, hyperlipidemia, osteoarthritis, and recent right knee surgery for meniscus injury. Per the emergency department notes patient stated he fell back in his wheelchair, while trying to maneuver the wheelchair. Patient denied loss of consciousness, loss of bowel or bladder. Patient had significant diagnostic workup in the emergency department revealing acute kidney injury, dehydration, low magnesium, and generalized weakness. Acute renal failure/dehydration, resolved with gentle hydration Postop right knee surgery, healing process followed by orthopedics Left knee effusion, intra-articular effusion drained with cortisone injection Hypomagnesemia, corrected with magnesium replacement, discharged with mag oxide 400 mg by mouth twice a day Generalized weakness, patient will require alf facility with rehab for strengthening conditioning Due to patient's multiple comorbidities and recent knee surgery and left knee effusion patient will require alf facility with rehab for 1-2 weeks. - Constitutional General appearance: Present: cooperative - EENT Eyes: Present: EOMI, PERRLA - Neck Neck: Present: normal ROM Carotids: bilateral: upstroke normal - Respiratory Respiratory: bilateral: CTA (Anterior and posterior lung bishop) - Cardiovascular Heart rate: 87 Rhythm: regular Heart sounds: normal: S1, S2 - Peripheral pulses dorsalis pedis Peripheral Pulses: bilateral: Normal radial pulse Peripheral Pulses: bilateral: Normal - Gastrointestinal General gastrointestinal: Present: normal bowel sounds - Integumentary Integumentary: Present: decreased turgor - Neurologic Neurologic: Present: CNII-XII intact - Musculoskeletal Musculoskeletal: Present: generalized weakness, bilateral knee discomfort and weakness - Psychiatric Psychiatric: Present: appropriate affect, intact judgment & insight Assessment: Acute renal failure/dehydration Low magnesium Fall Recent knee pain, recent knee arthroscopy, right knee osteoarthritis; right knee arthroscopy with partial medial meniscectomy Left knee effusion Hypertension Hyperlipidemia Diabetes mellitus type 2 GERD/reflux Memory impairment History of breast cancer Chronic back pain Full code Health Concerns: Multiple comorbidities Complexity of treatment plan Pertinent Studies: CT of the head and cervical spine, no acute changes X-ray of the right knee, healing fracture of the proximal tibia X-ray of the left knee, effusion noted, intra-articular infusion drain with cortisone injection Procedures: Left knee aspiration with intra-articular cortisone injection Patient Condition at Discharge: Fair Plan - Discharge Summary Discharge Rx Participant: Yes New Discharge Prescriptions: New Magnesium Oxide [Mag-Ox] 400 mg PO BID #20 tab amLODIPine [Norvasc] 5 mg PO DAILY #10 tab Continue DULoxetine HCL [Cymbalta] 30 mg PO HS metFORMIN HCL [Glucophage] 500 mg PO BID Metoprolol Tartrate [Lopressor] 50 mg PO TID DULoxetine HCL [Cymbalta] 60 mg PO DAILY Baclofen [Lioresal] 20 mg PO BID PRN #6 tab PRN Reason: Muscle Spasm HYDROcodone/APAP 5-325MG [[place] 5-325] 1 tab PO Q4HR PRN #25 tab PRN Reason: Pain Atorvastatin [Lipitor] 40 mg PO HS lisinopriL 20 mg PO BID Butalb/APAP/Caff 50-325-40Mg [Fioricet 50-325-40] 1 tab PO TID PRN #9 tab PRN Reason: Migraine Headache Gabapentin [Neurontin] 300 mg PO BID #6 cap Discharge Medication List DULoxetine HCL [Cymbalta] 30 mg PO HS 09/15/18 [History] metFORMIN HCL [Glucophage] 500 mg PO BID 12/17/18 [History] Metoprolol Tartrate [Lopressor] 50 mg PO TID 11/06/19 [History] Atorvastatin [Lipitor] 40 mg PO HS 06/18/20 [History] DULoxetine HCL [Cymbalta] 60 mg PO DAILY 06/18/20 [History] Baclofen [Lioresal] 20 mg PO BID PRN #6 tab 07/07/20 [Rx] lisinopriL 20 mg PO BID 10/11/20 [History] Butalb/APAP/Caff 50-325-40Mg [Fioricet 50-325-40] 1 tab PO TID PRN #9 tab 10/22/20 [Rx] Gabapentin [Neurontin] 300 mg PO BID #6 cap 10/22/20 [Rx] HYDROcodone/APAP 5-325MG [[place] 5-325] 1 tab PO Q4HR PRN #25 tab 10/22/20 [Rx] Magnesium Oxide [Mag-Ox] 400 mg PO BID #20 tab 10/22/20 [Rx] amLODIPine [Norvasc] 5 mg PO DAILY #10 tab 10/22/20 [Rx] Follow up Appointment(s)/Referral(s): Damon Rodriguez MD [Primary Care Provider] - 1-2 days [facility], [NON-STAFF] - Emir Anderson DO [Doctor of Osteopathic Medicine] - 10 Days Activity/Diet/Wound Care/Special Instructions: Orthopedic discharge instructions: 1. Recommend weight-bear as tolerated on the bilateral lower extremities 2. Okay to shower directly over the incisions on the right knee 3. Recommend daily physical therapy 4. Use of anti-inflammatories as needed 5. Recommend follow-up with Dr. Anderson the outpatient setting in the next 10 days Discharge Disposition: TRANSFER TO SNF/ECF
[2020-10-22] MEDS: DULoxetine HCL 60 MG CAPSULE.DR PO SCH (07:40)
[2020-10-22] MEDS: metFORMIN 500 MG TAB PO SCH (07:40)
[2020-10-22] MEDS: BUTALB/APAP/CAFF 50-325-40MG TAB PO PRN (07:40)
[2020-10-22] MEDS: GABAPENTIN 300 MG CAP PO SCH (07:40)
[2020-10-22] MEDS: lisinopriL 20 MG TAB PO SCH (07:40)
[2020-10-22] MEDS: METOPROLOL TARTRATE 50 MG TAB PO SCH (07:40)
[2020-10-22] MEDS: ENOXAPARIN 40 MG/0.4 ML SYRINGE SQ SCH (07:40)
[2020-10-22] MEDS: MAGNESIUM OXIDE 400 MG TAB PO SCH (07:40)
[2020-10-22 07:53] VITALS: BP 159/82; PULSE 68; RESP 16; TEMP 97.8
[2020-10-22] MEDS ORDERED: amLODIPine 5 MG TAB PO SCH (09:00)
--- NOTE | 2020-10-22 11:26 | P.PN ---
Subjective Progress Note Date: 10/22/20 Principal diagnosis: Left knee pain and effusion, right knee pain status post right knee arthroscopy Patient was evaluated at bedside, he is resting comfortably. He notes improve ment with regards to left knee symptoms. He also states that the right knee is feeling a little bit better today. Objective - Vital Signs Vital signs: Vital Signs Temp 97.8 F 10/22/20 07:52 Pulse 68 10/22/20 07:52 Resp 16 10/22/20 07:52 BP 159/82 10/22/20 07:52 Pulse Ox 93 L 10/22/20 07:52 Intake & Output 10/21/20 10/22/20 10/22/20 18:59 06:59 18:59 Output Total 800 850 Balance -800 -850 Weight 136.078 kg Output: Urine 800 850 Other: Voiding Method Urinal Urinal # Voids 1 - Exam Right knee: Nylon sutures present on the medial and lateral joint line from his arthroscopic portals. There is a small joint effusion appreciated. Passive range of motion, 0-110. Mild pain is reproduced on range of motion exam. There is no erythema, areas of fluctuance or increase in temperature noted. He has general tenderness with palpation along the medial and lateral joint line. Calf is soft, no tenderness with palpation. Plantar flexion, dorsiflexion, EHL, FHL are intact. Sensory exam light touch is intact throughout the extremity, dorsalis pedis pulses 2+ Left knee: He has generalized tenderness with palpation of the knee. Range of motion, actively after 90 of flexion he does notice pain over the anterior aspect of the knee. He does have some mild medial and lateral joint line tenderness. Passive range of motion I am able to flex the knee past 90 with minimal discomfort. Calf is soft, no tenderness with palpation. Plantar flexion, dorsiflexion, EHL, FHL are intact. Sensory exam to light touch is intact at the extremity, dorsalis pedis pulses 2+ - Labs CBC & Chem 7: 10/19/20 06:17 10/21/20 05:56 Labs: Abnormal Lab Results - Last 24 Hours (Table) 10/21/20 Range/Units 05:56 Carbon Dioxide 20.3 L (21.6-31.8) mmol/L Anion Gap 17.70 H (4.00-12.00) mmol/L Glucose 153 H (70-110) mg/dL Assessment and Plan Assessment: Right knee pain Right knee osteoarthritis History of recent right knee arthroscopy with partial medial meniscectomy, partial lateral meniscectomy, medial femoral and tibial chondroplasty Left knee pain with effusion Left knee osteoarthritis Vertigo Other medical comorbidities Plan: Recommend follow-up in office with Dr. Anderson in 10 days Recommend weight-bear as tolerated with regards to the left and right knee Patient remained stable for discharge Time with Patient: Less than 30
[2020-10-22 12:26] LABS: Basophils # (A) 0.01 X 10*3/uL (0.00-0.10); Basophils % (A) 0.1 %; Eosinophils # (A) 0 X 10*3/uL (0.04-0.35); Eosinophils % (A) 0 %; HCT 40.7 % (39.6-50.0); HGB 13.1 g/dL (13.0-17.0); Lymphocytes # (A) 1.51 X 10*3/uL (0.90-5.00); Lymphocytes % (A) 9.6 %; MCH 30.7 pg (27.0-32.0); MCHC 32.2 g/dL (32.0-37.0); MCV 95.3 fL (80.0-97.0); Mean Platelet Volume 10.7 fL (9.5-12.2); Monocytes # (A) 0.63 X 10*3/uL (0.20-1.00); Neutrophils # (A) 13.55 X 10*3/uL (1.80-7.70); Neutrophils % (A) 85.9 %; Platelet Count 230 X 10*3/uL (140-440); RBC 4.27 X 10*6/uL (4.40-5.60); RDW 12.8 % (11.5-14.5); WBC 15.77 X 10*3/uL (4.50-10.00)
[2020-10-22 13:15] LABS: African American GFR (CKD) 99.9 (60.0-200.0); Albumin 4.4 g/dL (3.80-4.90); Albumin/Globulin Ratio 1.83 (1.60-3.17); Anion Gap 10.2 mmol/L (4.00-12.00); BUN/Creat Ratio 22.22 Ratio (12.00-20.00); Calcium 9.6 mg/dL (8.7-10.3); Carbon Dioxide 26.8 mmol/L (21.6-31.8); Globulin 2.4 g/dL (1.6-3.3); Non-African American GFR(CKD) 86.2 (60.0-200.0); Potassium 4.4 mmol/L (3.5-5.5); Total Bilirubin 0.5 mg/dL (0.2-1.2); Total Protein 6.8 g/dL (6.2-8.2)
[2020-10-22 13:16] LABS: Magnesium 1.6 mg/dL (1.5-2.4)
== END 2020-10-22 12:40 ==
LOC: EC 07:24 → 4SSUR 10:38 → INTOOBSV 10-19 15:48 → OBSVTOIN 10-19 15:48 → UNDODISIN 10-22 12:40
PROVIDERS: ADMIT Family Medicine; ATTEND Family Medicine
DX: M25.561 Pain in right knee (principal); N17.9 Acute kidney failure, unspecified; E86.0 Dehydration; E83.42 Hypomagnesemia; M25.462 Effusion, left knee; I10 Essential (primary) hypertension; E78.5 Hyperlipidemia, unspecified; E11.40 Type 2 diabetes mellitus with diabetic neuropathy, unspecified; G62.9 Polyneuropathy, unspecified; K21.9 Gastro-esophageal reflux disease without esophagitis; R41.3 Other amnesia; R42 Dizziness and giddiness; M19.90 Unspecified osteoarthritis, unspecified site; R53.1 Weakness; G89.29 Other chronic pain; M54.9 Dorsalgia, unspecified; R62.7 Adult failure to thrive; Z68.33 Body mass index [BMI] 33.0-33.9, adult; M54.2 Cervicalgia; H91.90 Unspecified hearing loss, unspecified ear; M17.0 Bilateral primary osteoarthritis of knee; I48.91 Unspecified atrial fibrillation; R51.9 Headache, unspecified; E66.9 Obesity, unspecified; G89.18 Other acute postprocedural pain; R29.6 Repeated falls; Z91.81 History of falling; Y92.009 Unspecified place in unspecified non-institutional (private) residence as the place of occurrence of the external cause; W05.0XXA Fall from non-moving wheelchair, initial encounter; Z79.84 Long term (current) use of oral hypoglycemic drugs; Z79.82 Long term (current) use of aspirin; Z79.899 Other long term (current) drug therapy; Z85.3 Personal history of malignant neoplasm of breast; Z87.01 Personal history of pneumonia (recurrent); Z86.14 Personal history of Methicillin resistant Staphylococcus aureus infection; Z87.891 Personal history of nicotine dependence; Z16.24 Resistance to multiple antibiotics; Z90.13 Acquired absence of bilateral breasts and nipples; Z88.0 Allergy status to penicillin; Z88.1 Allergy status to other antibiotic agents; Z82.49 Family history of ischemic heart disease and other diseases of the circulatory system
CPT/HCPCS: 96376 ×4; 96366 ×4; 96372 ×5; 96361; 96365; 96375; 99285; 36415; 97116 ×2; 97530 ×3; 97162; 97535; 97165; 80053 ×4; 80048 ×3; 82550; 83735 ×7; 85025 ×4; 73562 ×2; 72125; 70450; 20610; G0378 ×7; J1200; J2930; J1650 ×5; J3010; J3475 ×5; J1885; J1170 ×4

== ENCOUNTER 2020-11-17 08:08 | Emergency (ER) | payer MEDICARE ==
[2020-11-17 08:15] VITALS: RESP 16; TEMP 98.1
[2020-11-17] MEDS ORDERED: KETOROLAC 15 MG/ML 1 ML VIAL IM STA (08:15)
--- NOTE | 2020-11-17 08:26 | ED ---
General Adult HPI - General Chief complaint: Fall Stated complaint: Fall/Rt Knee Pain Time Seen by Provider: 11/17/20 08:10 Source: patient, EMS, RN notes reviewed, old records reviewed Mode of arrival: EMS Limitations: no limitations - History of Present Illness Initial comments: This is a 70-year-old male presented emergency department stating that he rolled out of bed. Patient complains of right lower leg pain below the knee and right shoulder pain. Patient denies hitting his head patient denies neck pain patient denies any loss of consciousness. Patient states he has a history of vertigo and balance problems. Patient denies any chest pain difficult breathing shortness breath per patient denies any back pain. Patient denies any abdominal pain. Patient has no other complaints. - Related Data Home Medications Medication Instructions Recorded Confirmed DULoxetine HCL [Cymbalta] 30 mg PO HS 09/15/18 10/16/20 metFORMIN HCL [Glucophage] 500 mg PO BID 12/17/18 10/16/20 Metoprolol Tartrate [Lopressor] 50 mg PO TID 11/06/19 10/16/20 Atorvastatin [Lipitor] 40 mg PO HS 06/18/20 10/16/20 DULoxetine HCL [Cymbalta] 60 mg PO DAILY 06/18/20 10/16/20 lisinopriL 20 mg PO BID 10/11/20 10/16/20 Previous Rx's Medication Instructions Recorded Baclofen [Lioresal] 20 mg PO BID PRN #6 tab 07/07/20 Butalb/APAP/Caff 50-325-40Mg 1 tab PO TID PRN #9 tab 10/22/20 [Fioricet 50-325-40] Gabapentin [Neurontin] 300 mg PO BID #6 cap 10/22/20 HYDROcodone/APAP 5-325MG [[place] 1 tab PO Q4HR PRN #25 tab 10/22/20 5-325] Magnesium Oxide [Mag-Ox] 400 mg PO BID #20 tab 10/22/20 amLODIPine [Norvasc] 5 mg PO DAILY #10 tab 10/22/20 Allergies Allergy/AdvReac Type Severity Reaction Status Date / Time cephalexin monohydrate Allergy Anaphylaxis Verified 10/13/20 11:42 [From Keflex] Cephalosporins Allergy Anaphylaxis Verified 10/13/20 11:42 Penicillins Allergy Anaphylaxis Verified 10/13/20 11:42 Review of Systems ROS Statement: Those systems with pertinent positive or pertinent negative responses have been documented in the HPI. ROS Other: All systems not noted in ROS Statement are negative. Past Medical History Past Medical History: Atrial Fibrillation, Cancer, Diabetes Mellitus, GERD/Reflux, Hyperlipidemia, Hypertension, Memory Impairment, Osteoarthritis (OA), Pneumonia Additional Past Medical History / Comment(s): FELL 07/09/19 FX LT RADIUS, FREQUENT FALLS-REASON UNKNOWN. 03-10-16 FELL/FX RT FIBULA, VERTIGO , chronic headaches, BREAST CANCER History of Any Multi-Drug Resistant Organisms: CRE, MRSA Date of last positivie culture/infection: 02/2017 MDRO Source:: MRSA Past Surgical History: Back Surgery, Breast Surgery, Orthopedic Surgery Additional Past Surgical History / Comment(s): Bilateral mastectomy with right sided lymp node removal due to cancer, R knee cap removed, Back surgery for herniated disc., Brain stem surgery for decompression-for dizziness, right ankle ORIF, bilateral wrist fractures SX Past Anesthesia/Blood Transfusion Reactions: No Reported Reaction Past Psychological History: No Psychological Hx Reported Smoking Status: Former smoker Past Alcohol Use History: None Reported Past Drug Use History: None Reported - Past Family History Father History Unknown: Yes Family Medical History: Congestive Heart Failure (CHF) Additional Family Medical History / Comment(s): at 68. Mother History Unknown: Yes Family Medical History: Hypertension Additional Family Medical History / Comment(s): Pulmonary hypertension. at 78. General Exam - General Exam Comments Initial Comments: GENERAL: Patient is well-developed and well-nourished. Patient is nontoxic and well- hydrated and is in no acute distress. ENT: Neck is soft and supple. No significant lymphadenopathy is noted. Oropharynx is clear. Moist mucous membranes. Neck has full range of motion without eliciting any pain. EYES: The sclera were anicteric and conjunctiva were pink and moist. Extraocular movements were intact and pupils were equal round and reactive to light. Eyelids were unremarkable. PULMONARY: Unlabored respirations. Good breath sounds bilaterally. No audible rales rhonchi or wheezing was noted. CARDIOVASCULAR: There is a regular rate and rhythm without any murmurs gallops or rubs. ABDOMEN: Soft and nontender with normal bowel sounds. SKIN: Skin is clear with no lesions or rashes and otherwise unremarkable. NEUROLOGIC: Patient is alert and oriented x3. Cranial nerves II through XII are grossly intact. Motor and sensory are also intact. Normal speech, volume and content. Symmetrical smile. MUSCULOSKELETAL: Patient has some tenderness in the proximal tibia. Patient has some tenderness in the lateral aspect of the shoulder but has full range of motion of the shoulder. Patient has full range of motion of all the extremities. PSYCHIATRIC: Normal psychiatric evaluation. Limitations: no limitations Course Vital Signs 11/17/20 08:09 Temperature 98.1 F Pulse Rate 68 Respiratory 16 Rate Blood Pressure 111/81 O2 Sat by Pulse 97 Oximetry Medical Decision Making - Medical Decision Making X-ray of the chest showed no acute abnormality. X-ray of the tib-fib showed no acute abnormality. X-ray of the shoulder shows no acute abnormality. Disposition Clinical Impression: Fall, Contusion of shoulder, Contusion of leg Disposition: HOME SELF-CARE Instructions (If sedation given, give patient instructions): Fall Prevention for Older Adults (ED), Contusion in Adults (ED) Referrals: Damon Rodriguez MD [Primary Care Provider] - 1-2 days Time of Disposition: 09:46
--- NOTE | 2020-11-17 08:49 | XR ---
EXAMINATION TYPE: XR chest 2V DATE OF EXAM: 11/17/2020 COMPARISON: 07/05/2020 HISTORY: 70-year-old male trauma, pain TECHNIQUE: AP and lateral views FINDINGS: The cardiomediastinal silhouette, aorta, and pulmonary vasculature are within normal limits. Strandy lower lung atelectasis. No consolidation or pleural effusion. [facility] in the mid thoracic spine. IMPRESSION: Strandy lower lung areas of atelectasis. Otherwise, no acute process seen.
--- NOTE | 2020-11-17 08:56 | XR ---
EXAMINATION TYPE: XR shoulder complete 3 views RT, XR tibia fibula 2 views RT DATE OF EXAM: 11/17/2020 Comparison: Knee 07/07/2020 Clinical History: 70-year-old male with pain after Trauma Findings: Right shoulder: Moderate degenerative joint space narrowing and marginal spurring and capsular hypertrophy at the acr omioclavicular joint. Subacromial space is preserved. No acute fracture, subluxation, or dislocation seen. Right tibia/fibula: The patella is fragmented. Query prior trauma or surgery. There is a nearly healed oblique fracture a t the fibular head with prominent callus. Some residual fracture lucency is seen. There is lateral plate and screw fixation distal fibula. Oblique fracture is also nearly healed. Smal [id number] sized posterior and plantar heel spurs. No acute fracture identified. On the lateral vi ew, a zipper projects over the femoral condyles. Impression: Right shoulder: 1. Moderate AC joint OA. Inferior spurring may contribute to subacromial impingement. Clinically [facility] [facility]. 2. No acute osseous abnormality seen. Right tibia/fibula: 3. Fragmentary patella partially visualized. Correlate for history of prior trauma or surgery here. A ppearance similar to 07/07/2020. 4. Healing to nearly healed oblique fracture at the fibular neck along with lateral plate and screw f ixation across the nearly healed oblique fracture at the lateral malleolus. 5. No acute fracture identified.
[2020-11-17] MEDS ORDERED: ACET/COD 300 MG/30 MG STARTER PACK 6 TAB BTL PO STA (09:48)
[2020-11-17 09:56] VITALS: BP 108/89; PULSE 86
== END 2020-11-17 09:57 | disposition home or self-care (01) ==
LOC: EC 08:08
DX: S80.11XA Contusion of right lower leg, initial encounter (principal); S40.011A Contusion of right shoulder, initial encounter; I10 Essential (primary) hypertension; I48.91 Unspecified atrial fibrillation; E11.9 Type 2 diabetes mellitus without complications; K21.9 Gastro-esophageal reflux disease without esophagitis; E78.5 Hyperlipidemia, unspecified; Z79.84 Long term (current) use of oral hypoglycemic drugs; Z79.899 Other long term (current) drug therapy; Z88.0 Allergy status to penicillin; Z88.1 Allergy status to other antibiotic agents; Z85.3 Personal history of malignant neoplasm of breast; Z87.891 Personal history of nicotine dependence; W06.XXXA Fall from bed, initial encounter
CPT/HCPCS: 99283; 96372; 73030; 73590; 71046; J1885

== ENCOUNTER 2020-12-18 04:56 | Inpatient (IN) | payer MEDICARE ==
[2020-12-18 05:55] LABS: Basophils % (A) 0 %; Eosinophils # (A) 0.3 k/uL (0-0.7); Eosinophils % (A) 3 %; HCT 40.3 % (39.0-53.0); HGB 13.9 gm/dL (13.0-17.5); Lymphocytes # (A) 1.7 k/uL (1.0-4.8); Lymphocytes % (A) 16 %; MCH 31.6 pg (25.0-35.0); MCHC 34.5 g/dL (31.0-37.0); Mean Platelet Volume 8.2; Monocytes # (A) 0.6 k/uL (0-1.0); Monocytes % (A) 6 %; Neutrophils # (A) 8.1 k/uL (1.3-7.7); Neutrophils % (A) 74 %; Platelet Count 256 k/uL (150-450); RBC 4.41 m/uL (4.30-5.90); WBC 10.9 k/uL (3.8-10.6)
[2020-12-18 06:02] LABS: MCV 91.5 fL (80.0-100.0)
[2020-12-18 06:07] LABS: Albumin 4.6 g/dL (3.5-5.0); Calcium 9.5 mg/dL (8.4-10.2); Magnesium 1.1 mg/dL (1.6-2.3); Potassium 4.3 mmol/L (3.5-5.1); Total Bilirubin 0.5 mg/dL (0.2-1.3); Total Protein 7.3 g/dL (6.3-8.2)
[2020-12-18 06:16] LABS: INR 0.9 (<1.2); Partial Thromboplastin Time 26.1 sec (22.0-30.0); Prothrombin Time 9.9 sec (9.0-12.0)
--- NOTE | 2020-12-18 06:21 | XR ---
EXAMINATION TYPE: XR chest 1V portable DATE OF EXAM: 12/18/2020 COMPARISON: 11/17/2020 HISTORY: Dysrhythmia TECHNIQUE: FINDINGS: There is no heart failure nor confluent pneumonic infiltrate. Costophrenic angles are clear . There are chest leads. There are no hilar masses. IMPRESSION: No active cardiopulmonary disease. No change.
[2020-12-18] MEDS ORDERED: SODIUM CHLORIDE 0.9% 1,000 ML IV STA (06:22)
[2020-12-18] MEDS ORDERED: SODIUM CHLORIDE 0.9% 1,000 ML IV ONE (06:22)
[2020-12-18] MEDS ORDERED: MAGNESIUM SULFATE-D5W PMX 1 GM in DEXTROSE/WATER 1 100ML.BAG IVPB ONE (06:27)
--- NOTE | 2020-12-18 07:54 | ED ---
Altered Mental Status HPI <Dereck Doyle - Last Filed: 12/18/20 09:50> - General Source: EMS Mode of arrival: EMS Limitations: altered mental status - History of Present Illness MD Complaint: altered mental status, confusion -: hour(s) Severity: severe Consistency of Symptoms: getting worse Context: history of similar presentation Associated Symptoms: denies other symptoms <Yousuf Alejandra - Last Filed: 12/21/20 23:32> - General Chief Complaint: Altered Mental Status Stated Complaint: Altered Mental Status Time Seen by Provider: 12/18/20 05:13 - History of Present Illness Initial Comments: 's patient is 70-year-old man area of chronic vertigo who presents with altered mental status. The patient has had similar episodes to this, and usually is found to be dehydrated. History is from both the patient and from family members. Patient is denying any head injury or other trauma. He denies chest pain, dyspnea, abdominal pain. No fevers noted. (Yousuf Alejandra) - Related Data Home Medications Medication Instructions Recorded Confirmed metFORMIN HCL [Glucophage] 500 mg PO BID 12/17/18 12/18/20 Metoprolol Tartrate [Lopressor] 50 mg PO TID 11/06/19 12/18/20 Atorvastatin [Lipitor] 40 mg PO HS 06/18/20 12/18/20 DULoxetine HCL [Cymbalta] 60 mg PO BID 06/18/20 12/18/20 lisinopriL 20 mg PO BID 10/11/20 12/18/20 Previous Rx's Medication Instructions Recorded Baclofen [Lioresal] 20 mg PO BID PRN #6 tab 07/07/20 Butalb/APAP/Caff 50-325-40Mg 1 tab PO TID PRN #9 tab 10/22/20 [Fioricet 50-325-40] Gabapentin [Neurontin] 300 mg PO BID #6 cap 10/22/20 Allergies Allergy/AdvReac Type Severity Reaction Status Date / Time cephalexin monohydrate Allergy Anaphylaxis Verified 12/18/20 08:39 [From Keflex] Cephalosporins Allergy Anaphylaxis Verified 12/18/20 08:39 Penicillins Allergy Anaphylaxis Verified 12/18/20 08:39 Review of Systems ROS Other: All systems not noted in ROS Statement are negative. <Dereck Doyle - Last Filed: 12/18/20 09:50> ROS Other: All systems not noted in ROS Statement are negative. Constitutional: Denies: fever, chills, weakness Respiratory: Denies: cough, dyspnea Cardiovascular: Denies: chest pain, syncope Gastrointestinal: Denies: abdominal pain, vomiting Genitourinary: Denies: dysuria Musculoskeletal: Denies: back pain Skin: Denies: rash Neurological: Reports: confusion. Denies: headache, weakness <FlakoYousuf nino - Last Filed: 12/21/20 23:32> ROS Statement: Those systems with pertinent positive or pertinent negative responses have been documented in the HPI. Past Medical History Past Medical History: Atrial Fibrillation, Cancer, Diabetes Mellitus, GERD/Reflux, Hyperlipidemia, Hypertension, Memory Impairment, Osteoarthritis (OA), Pneumonia Additional Past Medical History / Comment(s): FELL 07/09/19 FX LT RADIUS, FREQUENT FALLS-REASON UNKNOWN. 03-10-16 FELL/FX RT FIBULA, VERTIGO , chronic headaches, BREAST CANCER History of Any Multi-Drug Resistant Organisms: CRE, MRSA Date of last positivie culture/infection: 02/2017 MDRO Source:: MRSA Past Surgical History: Back Surgery, Breast Surgery, Orthopedic Surgery Additional Past Surgical History / Comment(s): Bilateral mastectomy with right sided lymp node removal due to cancer, R knee cap removed, Back surgery for herniated disc., Brain stem surgery for decompression-for dizziness, right ankle ORIF, bilateral wrist fractures SX Past Anesthesia/Blood Transfusion Reactions: No Reported Reaction Past Psychological History: No Psychological Hx Reported Smoking Status: Former smoker Past Alcohol Use History: None Reported Past Drug Use History: None Reported - Past Family History Father History Unknown: Yes Family Medical History: Congestive Heart Failure (CHF) Additional Family Medical History / Comment(s): at 68. Mother History Unknown: Yes Family Medical History: Hypertension Additional Family Medical History / Comment(s): Pulmonary hypertension. at 78. <JustynYousuf - Last Filed: 12/21/20 23:32> General Exam Limitations: altered mental status General appearance: alert, in no apparent distress Head exam: Present: atraumatic, normocephalic Eye exam: Present: normal appearance, PERRL, EOMI. Absent: scleral icterus, conjunctival injection ENT exam: Present: mucous membranes dry Neck exam: Present: normal inspection Respiratory exam: Present: normal lung sounds bilaterally. Absent: respiratory distress, wheezes, rales, rhonchi, stridor Cardiovascular Exam: Present: regular rate, normal rhythm, normal heart sounds. Absent: systolic murmur, diastolic murmur, rubs, gallop GI/Abdominal exam: Present: soft. Absent: distended, tenderness, guarding, rebound, rigid, mass Extremities exam: Present: normal inspection, normal capillary refill. Absent: pedal edema, calf tenderness Back exam: Present: normal inspection. Absent: CVA tenderness (R), CVA tenderness (L) Neurological exam: Present: alert, CN II-XII intact. Absent: oriented X3, motor sensory deficit Skin exam: Present: warm, dry, intact, normal color. Absent: rash <Yousuf Alejandra - Last Filed: 12/21/20 23:32> Course Vital Signs 12/18/20 12/18/20 12/18/20 05:34 07:07 09:32 Temperature 97.7 F Pulse Rate 57 L 71 60 Respiratory 16 18 18 Rate Blood Pressure 104/65 134/69 122/64 O2 Sat by Pulse 96 96 96 Oximetry Medical Decision Making - Lab Data Result diagrams: 12/18/20 05:41 12/18/20 05:41 <Dereck Doyle - Last Filed: 12/18/20 09:50> - Lab Data Result diagrams: 12/21/20 05:31 12/21/20 09:21 <Yousuf Alejandra - Last Filed: 12/21/20 23:32> - Lab Data Lab Results 12/18/20 12/18/20 12/18/20 Range/Units 05:41 05:41 05:41 WBC 10.9 H (3.8-10.6) k/uL RBC 4.41 (4.30-5.90) m/uL Hgb 13.9 (13.0-17.5) gm/dL Hct 40.3 (39.0-53.0) % MCV 91.5 D (80.0-100.0) fL MCH 31.6 (25.0-35.0) pg MCHC 34.5 (31.0-37.0) g/dL RDW 14.0 (11.5-15.5) % Plt Count 256 (150-450) k/uL MPV 8.2 Neutrophils % 74 % Lymphocytes % 16 % Monocytes % 6 % Eosinophils % 3 % Basophils % 0 % Neutrophils # 8.1 H (1.3-7.7) k/uL Lymphocytes # 1.7 (1.0-4.8) k/uL Monocytes # 0.6 (0-1.0) k/uL Eosinophils # 0.3 (0-0.7) k/uL Basophils # 0.0 (0-0.2) k/uL PT 9.9 (9.0-12.0) sec INR 0.9 (<1.2) APTT 26.1 (22.0-30.0) sec Sodium 138 (137-145) mmol/L Potassium 4.3 (3.5-5.1) mmol/L Chloride 102 (98-107) mmol/L Carbon Dioxide 23 (22-30) mmol/L Anion Gap 13 mmol/L BUN 31 H (9-20) mg/dL Creatinine 1.77 H (0.66-1.25) mg/dL Est GFR (CKD-EPI)AfAm 44 (>60 ml/min/1.73 sqM) Est GFR (CKD-EPI)NonAf 38 (>60 ml/min/1.73 sqM) Glucose 126 H (74-99) mg/dL Calcium 9.5 (8.4-10.2) mg/dL Magnesium 1.1 L (1.6-2.3) mg/dL Total Bilirubin 0.5 (0.2-1.3) mg/dL AST 24 (17-59) U/L ALT 18 (4-49) U/L Alkaline Phosphatase 70 (38-126) U/L Ammonia (<30) umol/L Troponin I (0.000-0.034) ng/mL Total Protein 7.3 (6.3-8.2) g/dL Albumin 4.6 (3.5-5.0) g/dL Urine Color Urine Appearance (Clear) Urine pH (5.0-8.0) Ur Specific [place] (1.001-1.035) Urine Protein (Negative) Urine Glucose (UA) (Negative) Urine Ketones (Negative) Urine Blood (Negative) Urine Nitrite (Negative) Urine Bilirubin (Negative) Urine Urobilinogen (<2.0) mg/dL Ur Leukocyte Esterase (Negative) Urine RBC (0-5) /hpf Urine WBC (0-5) /hpf Urine Bacteria (None) /hpf Hyaline Casts (0-2) /lpf Urine Mucus (None) /hpf 12/18/20 12/18/20 12/18/20 Range/Units 05:41 05:48 07:50 WBC (3.8-10.6) k/uL RBC (4.30-5.90) m/uL Hgb (13.0-17.5) gm/dL Hct (39.0-53.0) % MCV (80.0-100.0) fL MCH (25.0-35.0) pg MCHC (31.0-37.0) g/dL RDW (11.5-15.5) % Plt Count (150-450) k/uL MPV Neutrophils % % Lymphocytes % % Monocytes % % Eosinophils % % Basophils % % Neutrophils # (1.3-7.7) k/uL Lymphocytes # (1.0-4.8) k/uL Monocytes # (0-1.0) k/uL Eosinophils # (0-0.7) k/uL Basophils # (0-0.2) k/uL PT (9.0-12.0) sec INR (<1.2) APTT (22.0-30.0) sec Sodium (137-145) mmol/L Potassium (3.5-5.1) mmol/L Chloride (98-107) mmol/L Carbon Dioxide (22-30) mmol/L Anion Gap mmol/L BUN (9-20) mg/dL Creatinine (0.66-1.25) mg/dL Est GFR (CKD-EPI)AfAm (>60 ml/min/1.73 sqM) Est GFR (CKD-EPI)NonAf (>60 ml/min/1.73 sqM) Glucose (74-99) mg/dL Calcium (8.4-10.2) mg/dL Magnesium (1.6-2.3) mg/dL Total Bilirubin (0.2-1.3) mg/dL AST (17-59) U/L ALT (4-49) U/L Alkaline Phosphatase (38-126) U/L Ammonia <9 (<30) umol/L Troponin I <0.012 (0.000-0.034) ng/mL Total Protein (6.3-8.2) g/dL Albumin (3.5-5.0) g/dL Urine Color Light Yellow Urine Appearance Clear (Clear) Urine pH 5.0 (5.0-8.0) Ur Specific [place] 1.009 (1.001-1.035) Urine Protein Negative (Negative) Urine Glucose (UA) Negative (Negative) Urine Ketones Negative (Negative) Urine Blood Negative (Negative) Urine Nitrite Negative (Negative) Urine Bilirubin Negative (Negative) Urine Urobilinogen <2.0 (<2.0) mg/dL Ur Leukocyte Esterase Trace H (Negative) Urine RBC <1 (0-5) /hpf Urine WBC 2 (0-5) /hpf Urine Bacteria Rare H (None) /hpf Hyaline Casts 4 H (0-2) /lpf Urine Mucus Rare H (None) /hpf Disposition <Dereck Doyle - Last Filed: 12/18/20 09:50> <Yousuf Alejandra - Last Filed: 12/21/20 23:32> Clinical Impression: Chronic vertigo, Dehydration, Altered mental status, Hypomagnesemia Disposition: ADMITTED IP TO THIS HOSP Condition: Fair
[2020-12-18 08:51] LABS: Appearance,Urine Clear (Clear); Bacteria,Urine Rare /hpf; Bilirubin,Urine Negative (Negative); Blood,Urine Negative (Negative); Color,Urine Light Yellow; Glucose,Urine (UA) Negative (Negative); Hyaline Casts,Urine 4 /lpf (0-2); Ketones,Urine Negative (Negative); Leukocyte Esterase,Urine Trace (Negative); Mucus,Urine Rare /hpf; Nitrite,Urine Negative (Negative); Protein,Urine Negative (Negative); RBC,Urine <1 /hpf (0-5); Specific Gravity,Urine 1.009 (1.001-1.035); Urobilinogen,Urine <2.0 mg/dL (<2.0); WBC,Urine 2 /hpf (0-5)
--- NOTE | 2020-12-18 08:55 | CT ---
EXAMINATION TYPE: CT brain wo con DATE OF EXAM: 12/18/2020 COMPARISON: 10/16/2020 HISTORY: Altered mental status CT DLP: 1158.[address] of the brain was performed. The ventricles, basal cisterns and sulci overlying the cerebral convexities demonstrate mild enlargem ent. There is no evidence for intracranial hemorrhage or sulcal effacement. There is decreased attenuation about the periventricular white matter and deep white matter of both c erebral hemispheres, compatible with chronic small vessel ischemia. Differential diagnosis does inclu de demyelination. No mass effects are seen.No midline shift. Osseous calvarium is intact. If symptoms persist consider MRI. IMPRESSION: 1. Age related atrophic and chronic small vessel ischemic change without acute intracranial process s een at this time.
[2020-12-18] MEDS ORDERED: NALOXONE 0.4 MG/ML 1 ML VIAL IV PRN (09:02)
[2020-12-18] MEDS: SODIUM CHLORIDE 0.9% 1,000 ML IV SCH ×2 (09:15→21:48)
[2020-12-18 11:21] LABS: Glucose,Whole Blood 117 mg/dL (75-99)
[2020-12-18] MEDS ORDERED: Potassium Replacement Protocol 1 EACH MISC MISCELLANE PRN (14:51)
[2020-12-18] MEDS ORDERED: Magnesium Replacement Protocol 1 EACH MISC MISCELLANE PRN (14:51)
--- NOTE | 2020-12-18 15:55 | HP ---
HISTORY AND PHYSICAL I am covering for Dr. Damon Rodriguez. DATE OF SERVICE: 12/18/2020 CHIEF COMPLAINTS: Change in mental status, weakness, vertigo and fall. HISTORY OF PRESENT ILLNESS: This 70-year-old gentleman with a past medical history of multiple medical problems, including atrial fibrillation, history of diabetes, GERD, hypertension, hyperlipidemia, chronic vertigo, history of multiple falls, back surgery, being followed by Dr. Rodriguez in the outpatient setting, apparently had some change in mental status. The patient was confused. The patient was found to be dehydrated. The patient was taken to the hospital by family members and admitted for further evaluation. The patient was found to have severe hypomagnesemia. Patient also complained of intense vertigo. The ER evaluation showed hemoglobin 10.9 and creatinine 1.77. The baseline creatinine was normal. There is no history of any fever, rigor or chills at this time. UA is unremarkable. COVID-19 is negative. PAST MEDICAL HISTORY: History of atrial fibrillation, history of diabetes mellitus, type 2, GERD, hypertension, hyperlipidemia, history of memory impairment, history of DJD, history of pneumonia, history of fall. MEDICATIONS: Home medications are Glucophage, lisinopril, Lopressor, Neurontin, Cymbalta, Fioricet, Lipitor. ALLERGIES: KEFLEX and CEPHALOSPORIN, PENICILLIN. FAMILY HISTORY: History of CHF. SOCIAL HISTORY: Previous history of smoking. No current smoking or alcohol intake. REVIEW OF SYSTEMS: ENT: Diminished hearing. Diminished vision. CARDIOVASCULAR SYSTEM: No angina, palpitations. RESPIRATORY SYSTEM: No cough, hemoptysis. GI: No nausea, vomiting, diarrhea. : No dysuria. NERVOUS SYSTEM: No numbness, weakness. ALLERGY/IMMUNOLOGY: No asthma or hay fever. MUSCULOSKELETAL: As mentioned earlier. HEMATOLOGY/ONCOLOGY: No history of anemia. ENDOCRINE: As mentioned earlier. CONSTITUTIONAL: As mentioned earlier. DERMATOLOGY: Negative. RHEUMATOLOGY: Negative. PSYCHIATRY: As mentioned earlier. PHYSICAL EXAMINATION: Patient is alert and oriented x3. Pulse 60, blood pressure 122/64, respiration 18, temperature 97.7, pulse ox 96% on room air. HEENT: Conjunctivae normal. Oral mucosa is dry. NECK: No jugular venous distention. CARDIOVASCULAR: S1, S2 muffled. RESPIRATION: Breath sounds diminished at the bases. A few scattered rhonchi and crackles. ABDOMEN: Soft, obese, nontender. No mass palpable. LEGS: No edema. No swelling. NERVOUS SYSTEM: Higher functions as mentioned earlier. Moves all 4 limbs. No focal motor or sensory deficit. LYMPHATICS: No lymph node palpable in neck, axillae or groin. SKIN: No ulcer, rash, bleeding. JOINTS: No deforming arthropathy. LABS: WBC 10.3, hemoglobin 13. Creatinine is 1.7. ASSESSMENT: 1. Acute renal failure secondary to acute tubular necrosis and prerenal renal failure. 2. Syncope and fall. 3. History of severe vertigo. 4. Hypomagnesemia, severe. 5. Increased white count, possibly reactive. 6. History of atrial fibrillation. 7. Diabetes mellitus, type 2. 8. Gastroesophageal reflux disease. 9. Hypertension. 10.Hyperlipidemia. 11.History of memory impairment. 12.Degenerative joint disease. 13.History of pneumonia. 14.History of frequent falls. 15.History of fractured fibula. 16.History of vertigo. 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 18.History of back surgery, degenerative joint disease. 19.Remote history of nicotine dependence. 20.Obesity with body mass index of 35. 21.FULL CODE. RECOMMENDATIONS AND DISCUSSION: In this 70-year-old gentleman who presented with multiple complex medical issues, we will monitor the patient closely. Recommend orthostatic vitals. Resume the home medications. Antivert. PT/OT evaluation. I would also recommend magnesium supplementation. IV fluids cautiously. Monitor creatinine closely as far as acute renal failure is concerned. Prognosis is extremely guarded because of multiple complex medical issues, as listed above. Further recommendations to follow. A copy of this dictation is being forwarded to Dr. Damon Rodriguez, who is the primary physician. Old charts are reviewed. MMODL / IJN: [id number] /
[2020-12-18] MEDS: BUTALB/APAP/CAFF 50-325-40MG TAB PO PRN (16:14)
[2020-12-18] MEDS: METOPROLOL TARTRATE 50 MG TAB PO SCH ×2 (16:17→21:47)
[2020-12-18] MEDS: HEPARIN SODIUM,PORCINE/PF 5,000 UNIT/0.5 ML SYRINGE SQ SCH ×2 (16:18→21:46)
[2020-12-18] MEDS: metFORMIN 500 MG TAB PO SCH (16:18)
[2020-12-18 16:22] LABS: Glucose,Whole Blood 142 mg/dL (75-99)
[2020-12-18 20:44] LABS: Glucose,Whole Blood 112 mg/dL (75-99)
[2020-12-18] MEDS: ATORVASTATIN 40 MG TAB PO SCH (21:45)
[2020-12-18] MEDS: lisinopriL 20 MG TAB PO SCH (21:46)
[2020-12-18] MEDS: GABAPENTIN 300 MG CAP PO SCH (21:46)
[2020-12-18] MEDS: DULoxetine HCL 60 MG CAPSULE.DR PO SCH (21:46)
[2020-12-18] MEDS: MECLIZINE 25 MG TAB PO SCH (21:47)
[2020-12-19] MEDS: BUTALB/APAP/CAFF 50-325-40MG TAB PO PRN ×3 (03:10→15:50)
[2020-12-19 06:56] LABS: Glucose,Whole Blood 111 mg/dL (75-99)
[2020-12-19] MEDS: METOPROLOL TARTRATE 50 MG TAB PO SCH ×3 (08:13→21:33)
[2020-12-19] MEDS: DULoxetine HCL 60 MG CAPSULE.DR PO SCH ×2 (08:13→21:33)
[2020-12-19] MEDS: lisinopriL 20 MG TAB PO SCH ×2 (08:13→21:33)
[2020-12-19] MEDS: metFORMIN 500 MG TAB PO SCH ×2 (08:13→15:50)
[2020-12-19] MEDS: GABAPENTIN 300 MG CAP PO SCH ×2 (08:13→21:33)
[2020-12-19] MEDS: MECLIZINE 25 MG TAB PO SCH ×3 (08:13→21:33)
[2020-12-19] MEDS: HEPARIN SODIUM,PORCINE/PF 5,000 UNIT/0.5 ML SYRINGE SQ SCH ×2 (08:13→21:33)
[2020-12-19] MEDS: SODIUM CHLORIDE 0.9% 1,000 ML IV SCH ×3 (08:14→16:52)
[2020-12-19 09:02] LABS: Basophils # (A) 0.03 X 10*3/uL (0.00-0.10); Basophils % (A) 0.4 %; Eosinophils # (A) 0.41 X 10*3/uL (0.04-0.35); Eosinophils % (A) 6.1 %; HCT 36.4 % (39.6-50.0); HGB 12.3 g/dL (13.0-17.0); Lymphocytes # (A) 2.24 X 10*3/uL (0.90-5.00); Lymphocytes % (A) 33.2 %; MCH 31.5 pg (27.0-32.0); MCHC 33.8 g/dL (32.0-37.0); MCV 93.3 fL (80.0-97.0); Mean Platelet Volume 10.5 fL (9.5-12.2); Monocytes # (A) 0.59 X 10*3/uL (0.20-1.00); Monocytes % (A) 8.7 %; Neutrophils # (A) 3.45 X 10*3/uL (1.80-7.70); Neutrophils % (A) 51.2 %; Platelet Count 192 X 10*3/uL (140-440); RDW 14.1 % (11.5-14.5); WBC 6.75 X 10*3/uL (4.50-10.00)
[2020-12-19 09:19] LABS: African American GFR (CKD) 78.4 (60.0-200.0); Anion Gap 5.2 mmol/L (4.00-12.00); BUN/Creat Ratio 16.36 Ratio (12.00-20.00); Calcium 8.8 mg/dL (8.7-10.3); Carbon Dioxide 29.8 mmol/L (21.6-31.8); Magnesium 1.3 mg/dL (1.5-2.4); Non-African American GFR(CKD) 67.7 (60.0-200.0); Potassium 3.8 mmol/L (3.5-5.5)
[2020-12-19 11:33] LABS: Glucose,Whole Blood 113 mg/dL (75-99)
[2020-12-19] MEDS: THIAMINE 100 MG TAB PO SCH (11:42)
[2020-12-19] MEDS: FOLIC ACID 1 MG TAB PO SCH (11:42)
[2020-12-19] MEDS: MULTIVITAMINS, THERA 1 EACH TAB PO SCH (11:42)
[2020-12-19] MEDS: BACLOFEN 10 MG TAB PO PRN (11:47)
[2020-12-19 16:34] LABS: Glucose,Whole Blood 101 mg/dL (75-99)
--- NOTE | 2020-12-19 19:48 | PN ---
PROGRESS NOTE DATE OF SERVICE: 12/19/2020 I am covering for Dr. Rodriguez This 70-year-old gentleman who was admitted with acute renal failure secondary to acute tubular necrosis is being closely monitored. At this time the patient has some dehydration, present on admission. The magnesium was still low at 1.3. No chest pain. No palpitations. No fever. PHYSICAL EXAMINATION: Alert and oriented x3. Pulse 71, blood pressure 109/70 respiration 16, temperature 98.2, pulse ox 94% on room air. HEENT: Conjunctivae normal. Oral mucosa moist. NECK: No jugular venous distention. No lymph node enlargement. CARDIOVASCULAR: S1, S2, muffled. No S3, no S4, RESPIRATORY: Diminished breath sounds at the bases. ABDOMEN: Soft, nontender. LEGS: No edema, no swelling. NERVOUS SYSTEM: No focal deficits. LABS: Hemoglobin 12.3. ASSESSMENT: 1. Acute renal failure secondary to acute tubular necrosis and prerenal acute renal failure. 2. Syncope and fall. 3. Severe hypomagnesemia, persistent. 4. History of severe vertigo. 5. Increased WBC, possibly reactive. 6. History of atrial fibrillation. 7. Diabetes mellitus type 2. 8. History of GERD. 9. Hypertension. 10.Hyperlipidemia. 11.History of memory impairment. 12.History of DJD. 13.History of pneumonia. 14.History of frequent falls. 15.History of fractured fibula. 16.History of vertigo. 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 18.History of back surgery and DJD. 19.Remote history of nicotine dependence. 20.Obesity with body mass index of 35. 21.FULL CODE. RECOMMENDATIONS: Recommend to continue current management and symptomatic treatment. Otherwise, at this time continue with replacing potassium and magnesium with IV fluids. Prognosis guarded. Further recommendations to follow. MMODL / IJN: [id number] /
[2020-12-19 21:13] LABS: Glucose,Whole Blood 110 mg/dL (75-99)
[2020-12-19] MEDS: ATORVASTATIN 40 MG TAB PO SCH (21:33)
[2020-12-20] MEDS: BUTALB/APAP/CAFF 50-325-40MG TAB PO PRN ×3 (00:37→19:30)
[2020-12-20] MEDS: BACLOFEN 10 MG TAB PO PRN ×2 (00:39→19:30)
[2020-12-20] MEDS: SODIUM CHLORIDE 0.9% 1,000 ML IV SCH ×2 (02:01→19:25)
[2020-12-20 06:54] LABS: Glucose,Whole Blood 122 mg/dL (75-99)
[2020-12-20] MEDS: GABAPENTIN 300 MG CAP PO SCH ×2 (08:55→21:52)
[2020-12-20] MEDS: metFORMIN 500 MG TAB PO SCH ×2 (08:55→16:43)
[2020-12-20] MEDS: MECLIZINE 25 MG TAB PO SCH ×3 (08:55→21:52)
[2020-12-20] MEDS: METOPROLOL TARTRATE 50 MG TAB PO SCH ×3 (08:55→21:52)
[2020-12-20] MEDS: DULoxetine HCL 60 MG CAPSULE.DR PO SCH ×2 (08:55→21:52)
[2020-12-20] MEDS: lisinopriL 20 MG TAB PO SCH ×2 (08:55→21:52)
[2020-12-20] MEDS: HEPARIN SODIUM,PORCINE/PF 5,000 UNIT/0.5 ML SYRINGE SQ SCH ×2 (08:55→21:51)
[2020-12-20 11:18] LABS: African American GFR (CKD) >90 (>60 ml/min/1.73 sqM); Anion Gap 7 mmol/L; Blood Urea Nitrogen 16 mg/dL (9-20); Calcium 8.6 mg/dL (8.4-10.2); Carbon Dioxide 25 mmol/L (22-30); Chloride 107 mmol/L (98-107); Glucose 184 mg/dL (74-99); Magnesium 1.1 mg/dL (1.6-2.3); Non-African American GFR(CKD) 89 (>60 ml/min/1.73 sqM); Sodium 139 mmol/L (137-145)
[2020-12-20 11:29] LABS: Glucose,Whole Blood 138 mg/dL (75-99)
[2020-12-20] MEDS: MULTIVITAMINS, THERA 1 EACH TAB PO SCH (11:56)
[2020-12-20] MEDS: FOLIC ACID 1 MG TAB PO SCH (11:56)
[2020-12-20] MEDS: THIAMINE 100 MG TAB PO SCH (11:56)
[2020-12-20] MEDS ORDERED: Magnesium Replacement Protocol 1 EACH MISC MISCELLANE PRN (12:37)
[2020-12-20] MEDS: MAGNESIUM SULFATE-D5W PMX 1 GM in DEXTROSE/WATER 1 100ML.BAG IVPB SCH ×3 (13:10→15:13)
--- NOTE | 2020-12-20 15:03 | P.PN ---
Subjective Progress Note Date: 12/20/20 This is a 70-year-old male who was recently admitted with acute renal failure secondary to acute tubular necrosis and also found to be dehydrated and severe hypomagnesemia. Patient's magnesium today is 1.1 and will replace per protocol and have also started the patient on magnesium oxide oral. Patient continues to have extreme dizziness and vertigo and continues to be extremely weak and unable to work with physical therapy today due to his dizziness. Patient is maintained on meclizine 25mg 3 times a day and will continue. Will discontinue IV fluids as kidney functions have normalized. BUN is 16 and creatinine is 0.83. Sodium is 139. PT/OT to evaluate the patient for possible subacute rehab as patient is extremely weak. Review of systems: Constitutional: No reports of fatigue, fever, or chills home reports continued dizziness Cardiovascular: No reports of chest pain or palpitations Respiratory: No reports of shortness of breath or cough GI: reports of occasional nausea, no reports of vomiting, or diarrhea : No reports of dysuria or retention Neurovascular: reports generalized weakness All medications have been reviewed Active Medications Acetaminophen/Butalbital/Caffeine (Butalb/Apap/Caff 50-325-40mg Tab) 1 each PO TID PRN PRN Reason: Migraine Headache Last Admin: 12/20/20 08:59 Dose: 1 each Documented by: Atorvastatin Calcium (Atorvastatin 40 Mg Tab) 40 mg PO HS [facility] Last Admin: 12/19/20 21:33 Dose: 40 mg Documented by: Baclofen (Baclofen 10 Mg Tab) 20 mg PO BID PRN PRN Reason: Muscle Spasm Last Admin: 12/20/20 00:39 Dose: 20 mg Documented by: Duloxetine HCl (Duloxetine Hcl 60 Mg Capsule.Dr) 60 mg PO BID [facility] Last Admin: 12/20/20 08:55 Dose: 60 mg Documented by: Folic Acid (Folic Acid 1 Mg Tab) 1 mg PO DAILY@1200 [facility] Last Admin: 12/20/20 11:56 Dose: 1 mg Documented by: Gabapentin (Gabapentin 300 Mg Cap) 300 mg PO BID [facility] Last Admin: 12/20/20 08:55 Dose: 300 mg Documented by: Heparin Sodium (Porcine) (Heparin Sodium,Porcine/Pf 5,000 Unit/0.5 Ml Syringe) 5,000 unit SQ Q12HR [facility] Last Admin: 12/20/20 08:55 Dose: 5,000 unit Documented by: Sodium Chloride (Saline 0.9%) 1,000 mls @ 75 mls/hr IV .[id number] [facility] Last Admin: 12/20/20 02:01 Dose: 130 mls/hr Documented by: Magnesium Sulfate/Dextrose 1 (gm/ IV Solution) 100 mls @ 100 mls/hr IVPB Q1H [facility] Stop: 12/20/20 15:59 Last Admin: 12/20/20 14:15 Dose: 100 mls/hr Documented by: Lisinopril (Lisinopril 20 Mg Tab) 20 mg PO BID [facility] Last Admin: 12/20/20 08:55 Dose: 20 mg Documented by: Magnesium Oxide (Magnesium Oxide 400 Mg Tab) 400 mg PO TID [facility] Meclizine HCl (Meclizine 25 Mg Tab) 25 mg PO TID [facility] Last Admin: 12/20/20 08:55 Dose: 25 mg Documented by: Metformin HCl (Metformin 500 Mg Tab) 500 mg PO BID-W/MEALS [facility] Last Admin: 12/20/20 08:55 Dose: 500 mg Documented by: Metoprolol Tartrate (Metoprolol Tartrate 50 Mg Tab) 50 mg PO TID [facility] Last Admin: 12/20/20 08:55 Dose: 50 mg Documented by: Miscellaneous Information (Magnesium Replacement Protocol 1 Each Misc) 1 each MISCELLANE DAILY PRN; Protocol PRN Reason: Per Protocol Miscellaneous Information (Potassium Replacement Protocol 1 Each Misc) 1 each MISCELLANE DAILY PRN; Protocol PRN Reason: Per Protocol Miscellaneous Information (Magnesium Replacement Protocol 1 Each Misc) 1 each MISCELLANE DAILY PRN; Protocol PRN Reason: Per Protocol Multivitamins (Multivitamins, Thera 1 Each Tab) 1 each PO DAILY@1200 [facility] Last Admin: 12/20/20 11:56 Dose: 1 each Documented by: Naloxone HCl (Naloxone 0.4 Mg/Ml 1 Ml Vial) 0.2 mg IV Q2M PRN PRN Reason: Opioid Reversal Thiamine HCl (Thiamine 100 Mg Tab) 100 mg PO DAILY@1200 [facility] Last Admin: 12/20/20 11:56 Dose: 100 mg Documented by: Physical exam: Gen: This is a 70-year-old male awake, alert and oriented 3, well-developed, well-nourished, obese. HEENT: Head is atraumatic, normocephalic. Pupils equal, round. Sclerae is anicteric. NECK: Supple. No JVD. No lymphadenopathy. No thyromegaly. LUNGS: Clear to auscultation. No wheezes or rhonchi. No intercostal retractions. HEART: Regular rate and rhythm. No murmur. ABDOMEN: Soft. Obese. Bowel sounds are present. No masses. No tenderness. EXTREMITIES: No pedal edema. No calf tenderness. NEUROLOGICAL: Patient is awake, alert and oriented x3. Diffusely weak, extremely dizzy Assessment: Acute renal failure secondary to acute tubular necrosis and prerenal acute renal failure, improved Syncope and fall Severe hypomagnesemia, persistent History of severe vertigo Increased white blood count, possibly reactive Atrial fibrillation history Diabetes mellitus type 2 Hypertension Hyperlipidemia obesity with a body mass index of 35 full code plan: Recommend continue with meclizine 25 mg 3 times a day for continued vertigo and dizziness. PT/OT to evaluate the patient for possible rehab as patient continues to be extremely weak and difficulty ambulating. Patient to continue to follow with neurology outpatient as he states did have an appointment for his chronic vertigo. Patient has severe hypomagnesemia at 1.1 and will replace per protocol and have started on magnesium oxide 400 mg 3 times a day and will repeat labs. Patient was extremely weak and dizzy and unable to work with physical therapy today. Will attempt to evaluate PT/OT tomorrow. Objective - Vital Signs Vital signs: Vital Signs Temp 98.3 F 12/20/20 08:00 Pulse 71 12/20/20 08:00 Resp 18 12/20/20 08:00 BP 154/88 12/20/20 08:00 Pulse Ox 96 12/20/20 08:00 Intake & Output 12/19/20 12/20/20 12/20/20 18:59 06:59 18:59 Intake Total 1580 Output Total 1700 Balance -120 Intake: Oral 1580 Output: Urine 1700 Other: Voiding Method Urinal # Voids 5 - Labs CBC & Chem 7: 12/19/20 06:01 12/20/20 10:32 Labs: Abnormal Lab Results - Last 24 Hours (Table) 12/19/20 12/19/20 12/19/20 Range/Units 11:32 16:33 21:11 POC Glucose (mg/dL) 113 H 101 H 110 H (75-99) mg/dL 12/20/20 Range/Units 06:52 POC Glucose (mg/dL) 122 H (75-99) mg/dL Microbiology - Last 24 Hours (Table) 12/18/20 07:50 Blood Culture - Preliminary Blood No Growth after 24 hours
[2020-12-20 16:40] LABS: Glucose,Whole Blood 119 mg/dL (75-99)
[2020-12-20] MEDS: MAGNESIUM OXIDE 400 MG TAB PO SCH ×2 (16:43→21:52)
[2020-12-20 20:29] LABS: Glucose,Whole Blood 164 mg/dL (75-99)
[2020-12-20] MEDS: ATORVASTATIN 40 MG TAB PO SCH (21:51)
[2020-12-21] MEDS: BACLOFEN 10 MG TAB PO PRN ×2 (03:26→19:41)
[2020-12-21] MEDS: BUTALB/APAP/CAFF 50-325-40MG TAB PO PRN ×3 (03:26→19:41)
[2020-12-21 06:43] LABS: African American GFR (CKD) >90 (>60 ml/min/1.73 sqM); Anion Gap 7 mmol/L; Blood Urea Nitrogen 14 mg/dL (9-20); Carbon Dioxide 28 mmol/L (22-30); Chloride 105 mmol/L (98-107); Glucose 107 mg/dL (74-99); Magnesium 1.6 mg/dL (1.6-2.3); Non-African American GFR(CKD) 86 (>60 ml/min/1.73 sqM); Potassium 3.9 mmol/L (3.5-5.1); Sodium 140 mmol/L (137-145)
[2020-12-21 07:08] LABS: Glucose,Whole Blood 105 mg/dL (75-99)
[2020-12-21] MEDS: METOPROLOL TARTRATE 50 MG TAB PO SCH ×3 (07:46→20:36)
[2020-12-21] MEDS: HEPARIN SODIUM,PORCINE/PF 5,000 UNIT/0.5 ML SYRINGE SQ SCH ×2 (07:46→20:35)
[2020-12-21] MEDS: MECLIZINE 25 MG TAB PO SCH ×3 (07:47→20:35)
[2020-12-21] MEDS: GABAPENTIN 300 MG CAP PO SCH ×2 (07:47→20:35)
[2020-12-21] MEDS: DULoxetine HCL 60 MG CAPSULE.DR PO SCH ×2 (07:47→20:35)
[2020-12-21] MEDS: metFORMIN 500 MG TAB PO SCH ×2 (07:47→16:57)
[2020-12-21] MEDS: lisinopriL 20 MG TAB PO SCH ×2 (07:47→20:35)
[2020-12-21] MEDS: MAGNESIUM OXIDE 400 MG TAB PO SCH ×3 (07:47→20:36)
[2020-12-21] MEDS ORDERED: ORPHENADRINE 30 MG/ML 2 ML VIAL IVP STA (07:51)
[2020-12-21 09:12] LABS: Basophils # (A) 0.04 X 10*3/uL (0.00-0.10); Basophils % (A) 0.4 %; Eosinophils # (A) 0.53 X 10*3/uL (0.04-0.35); Eosinophils % (A) 5.8 %; HCT 37.9 % (39.6-50.0); HGB 12.3 g/dL (13.0-17.0); Lymphocytes # (A) 2.33 X 10*3/uL (0.90-5.00); Lymphocytes % (A) 25.6 %; MCH 31.3 pg (27.0-32.0); MCHC 32.5 g/dL (32.0-37.0); MCV 96.4 fL (80.0-97.0); Mean Platelet Volume 10.9 fL (9.5-12.2); Monocytes # (A) 0.71 X 10*3/uL (0.20-1.00); Monocytes % (A) 7.8 %; Neutrophils # (A) 5.46 X 10*3/uL (1.80-7.70); Neutrophils % (A) 60.1 %; Platelet Count 181 X 10*3/uL (140-440); RBC 3.93 X 10*6/uL (4.40-5.60); RDW 14.2 % (11.5-14.5)
[2020-12-21] MEDS ORDERED: Magnesium Replacement Protocol 1 EACH MISC MISCELLANE PRN (09:42)
[2020-12-21] MEDS: MAGNESIUM SULFATE-D5W PMX 1 GM in DEXTROSE/WATER 1 100ML.BAG IVPB SCH ×2 (10:15→11:16)
[2020-12-21] MEDS: FOLIC ACID 1 MG TAB PO SCH (11:19)
[2020-12-21] MEDS: THIAMINE 100 MG TAB PO SCH (11:19)
[2020-12-21] MEDS: MULTIVITAMINS, THERA 1 EACH TAB PO SCH (11:19)
[2020-12-21 11:42] LABS: Glucose,Whole Blood 135 mg/dL (75-99)
[2020-12-21 16:50] LABS: Glucose,Whole Blood 121 mg/dL (75-99)
--- NOTE | 2020-12-21 19:00 | P.PN ---
Subjective Progress Note Date: 12/21/20 Principal diagnosis: Acute renal failure secondary to acute tubular necrosis and prerenal acute renal failure Dehydration Hypomagnesemia Generalized weakness 70-year-old male with significant medical history of paroxysmal atrial fibrillation, diabetes mellitus, GERD/reflux, hyperlipidemia, hypertension, memory impairment, osteoarthritis, chronic vertigo, multiple orthopedic edmonds rgeries in the past, and several additional comorbidities. Patient had extensive diagnostic workup in emergency department with diagnostic labs revealing acute kidney injury, hypomagnesemia, and dehydration. CT of the head without contrast performed in the emergency department revealed age-related atrophy and chronic small vessel ischemia changes without acute intracranial processes. Throughout hospital stay patient's acute renal failure secondary to acute tubular necrosis with prerenal failure improved with IV hydration; hypo- magnesium improved with magnesium replacement protocol and additional mag oxide scheduled. Episodes of sensation of vertigo have decrease with Antivert 25 mg 3 times a day. Consultation with physical therapy and occupational therapy for recommendations for rehabilitation for strengthening conditioning has been initiated. 12/21/2020 Patient seen and examined at bedside resting comfortably in bed with no acute signs of distress. Patient endorses generalized weakness and intermittent cephalgia. Patient denies fever, chills, shortness of breath, chest pain, palpitations, abdominal pain nausea or vomiting or diarrhea at this time. Review of diagnostic labs hemoglobin 12.3, hematocrit 37.9 electrolytes within acceptable range. Lengthy discussion with patient regarding the need to cooperate with physical therapy/occupational therapy for recommendations for strengthening conditioning as long term facility. Patient agreeable to treatment plan at this time. Patient acute signs of distress. Objective - Vital Signs Vital signs: Vital Signs Temp 98.0 F 12/21/20 14:00 Pulse 66 12/21/20 14:00 Resp 20 12/21/20 14:00 BP 145/75 12/21/20 18:16 Pulse Ox 95 12/21/20 14:00 Intake & Output 12/20/20 12/21/20 12/21/20 18:59 06:59 18:59 Intake Total 975 200 Output Total 900 2400 Balance 75 -2200 Intake: Intake, IV Titration 975 200 Amount Magnesium Sulfate-D5w Pmx 300 1 gm In Dextrose/Water 1 100ml.bag @ 100 mls/hr IVPB Q1H [facility] Rx#: [id number] Magnesium Sulfate-D5w Pmx 200 1 gm In Dextrose/Water 1 100ml.bag @ 100 mls/hr IVPB Q1H [facility] Rx#: [id number] Sodium Chloride 0.9% 1, 675 000 ml @ 75 mls/hr IV . [id number] [facility] Rx#:[id number] Output: Urine 900 2400 Other: Voiding Method Urinal Urinal Urinal # Voids 6 - Constitutional General appearance: Present: cooperative, no acute distress, obese - EENT Eyes: Present: EOMI, PERRLA, normal appearance ENT: Present: normal oropharynx Ears: bilateral: normal - Neck Neck: Present: normal ROM Carotids: bilateral: upstroke normal Thyroid: bilateral: normal size - Respiratory Respiratory: bilateral: CTA (Anterior and posterior lung bishop) - Cardiovascular Details: Normal sinus rhythm Heart rate: 65 Rhythm: regular Heart sounds: normal: S1, S2 - Peripheral pulses radial pulse Peripheral Pulses: bilateral: Normal - Gastrointestinal General gastrointestinal: Present: normal bowel sounds, soft - Integumentary Integumentary: Present: normal turgor - Musculoskeletal Musculoskeletal: Present: generalized weakness - Psychiatric Psychiatric: Present: A&O x's 3 - Allied health notes Allied health notes reviewed: nursing - Labs CBC & Chem 7: 12/21/20 05:31 12/21/20 09:21 Labs: Abnormal Lab Results - Last 24 Hours (Table) 12/20/20 12/21/20 12/21/20 Range/Units 20:27 05:31 05:31 RBC 3.93 L (4.40-5.60) X 10*6/uL Hgb 12.3 L (13.0-17.0) g/dL Hct 37.9 L (39.6-50.0) % Eosinophils # 0.53 H (0.04-0.35) X 10*3/uL Glucose 107 H (74-99) mg/dL POC Glucose (mg/dL) 164 H (75-99) mg/dL 12/21/20 12/21/20 12/21/20 Range/Units 07:02 11:33 16:45 RBC (4.40-5.60) X 10*6/uL Hgb (13.0-17.0) g/dL Hct (39.6-50.0) % Eosinophils # (0.04-0.35) X 10*3/uL Glucose (74-99) mg/dL POC Glucose (mg/dL) 105 H 135 H 121 H (75-99) mg/dL Microbiology - Last 24 Hours (Table) 12/18/20 07:50 Blood Culture - Preliminary Blood No Growth after 72 hours Assessment and Plan Assessment: Acute renal failure secondary to acute tubular necrosis and prerenal failure, improved with IV hydration Severe hypomagnesemia, corrected with magnesium replacement protocol, and magnesium oxide by mouth scheduled Dehydration corrected with IV hydration and increase of by mouth fluids History of severe vertigo, improved with IV hydration and Antivert 25 mg by mouth 3 times a day Leukocytosis trended downward within normal range History of proximal atrial fibrillation Diabetes mellitus type 2 Hypertension Hyperlipidemia History of syncopal episodes with falls GERD/reflux Hyperlipidemia History of memory impairment Degenerative joint disease History of fractured fibula History of back surgeries History of nicotine dependence Obesity of a BMI of 35 Full code Plan: Acute renal failure secondary to acute tubular necrosis with prerenal failure corrected with IV hydration Dehydration improved with IV hydration and increase of by mouth fluids Hypomagnesemia, improved with magnesium replacement protocol and mag oxide scheduled Episodes of vertigo, controlled with Antivert 25 mg by mouth 3 times a day Cephalgia, Fioricet as needed Continue home medications Monitor vital signs and diagnostic testing Awaiting on physical therapy/occupational therapy for possible placement long term facility for strengthening conditioning Chronic severe vertigo patient has an appointment with [facility] neurosurgeon in December Further recommendations come based on patient's clinical condition Hopeful discharge to long term facility for rehab for strengthening conditioning within 24 hours Time with Patient: Greater than 30
[2020-12-21] MEDS: ATORVASTATIN 40 MG TAB PO SCH (20:35)
[2020-12-21 21:20] LABS: Glucose,Whole Blood 102 mg/dL (75-99)
[2020-12-22] MEDS: BUTALB/APAP/CAFF 50-325-40MG TAB PO PRN ×3 (03:36→17:52)
[2020-12-22 06:43] LABS: African American GFR (CKD) >90 (>60 ml/min/1.73 sqM); Anion Gap 10 mmol/L; Blood Urea Nitrogen 15 mg/dL (9-20); Calcium 8.9 mg/dL (8.4-10.2); Carbon Dioxide 25 mmol/L (22-30); Chloride 101 mmol/L (98-107); Glucose 108 mg/dL (74-99); Magnesium 1.6 mg/dL (1.6-2.3); Non-African American GFR(CKD) 86 (>60 ml/min/1.73 sqM); Sodium 136 mmol/L (137-145)
[2020-12-22 07:15] LABS: Glucose,Whole Blood 120 mg/dL (75-99)
[2020-12-22] MEDS ORDERED: Magnesium Replacement Protocol 1 EACH MISC MISCELLANE PRN (07:28)
[2020-12-22] MEDS ORDERED: diazePAM 5 MG TAB PO STA (08:12)
[2020-12-22 09:38] LABS: Basophils # (A) 0.04 X 10*3/uL (0.00-0.10); Basophils % (A) 0.5 %; Eosinophils % (A) 5.8 %; HCT 38.5 % (39.6-50.0); HGB 12.6 g/dL (13.0-17.0); Lymphocytes # (A) 2.15 X 10*3/uL (0.90-5.00); Lymphocytes % (A) 24.9 %; MCH 31.3 pg (27.0-32.0); MCHC 32.7 g/dL (32.0-37.0); MCV 95.5 fL (80.0-97.0); Mean Platelet Volume 10.8 fL (9.5-12.2); Monocytes # (A) 0.68 X 10*3/uL (0.20-1.00); Monocytes % (A) 7.9 %; Neutrophils # (A) 5.23 X 10*3/uL (1.80-7.70); Neutrophils % (A) 60.6 %; Platelet Count 190 X 10*3/uL (140-440); RBC 4.03 X 10*6/uL (4.40-5.60); RDW 14.1 % (11.5-14.5); WBC 8.63 X 10*3/uL (4.50-10.00)
[2020-12-22] MEDS: MAGNESIUM OXIDE 400 MG TAB PO SCH ×3 (09:44→22:52)
[2020-12-22] MEDS: METOPROLOL TARTRATE 50 MG TAB PO SCH ×3 (09:44→22:52)
[2020-12-22] MEDS: lisinopriL 20 MG TAB PO SCH ×2 (09:44→20:00)
[2020-12-22] MEDS: GABAPENTIN 300 MG CAP PO SCH ×2 (09:44→20:00)
[2020-12-22] MEDS: MECLIZINE 25 MG TAB PO SCH ×3 (09:44→22:53)
[2020-12-22] MEDS: HEPARIN SODIUM,PORCINE/PF 5,000 UNIT/0.5 ML SYRINGE SQ SCH ×2 (09:45→19:59)
[2020-12-22] MEDS: MAGNESIUM SULFATE-D5W PMX 1 GM in DEXTROSE/WATER 1 100ML.BAG IVPB SCH ×2 (09:45→11:56)
[2020-12-22] MEDS: DULoxetine HCL 60 MG CAPSULE.DR PO SCH ×2 (09:45→20:00)
[2020-12-22] MEDS: metFORMIN 500 MG TAB PO SCH ×2 (09:45→17:50)
[2020-12-22 11:34] LABS: Glucose,Whole Blood 168 mg/dL (75-99)
[2020-12-22] MEDS: THIAMINE 100 MG TAB PO SCH (11:56)
[2020-12-22] MEDS: FOLIC ACID 1 MG TAB PO SCH (11:56)
[2020-12-22] MEDS: MULTIVITAMINS, THERA 1 EACH TAB PO SCH (11:56)
[2020-12-22 16:38] LABS: Glucose,Whole Blood 114 mg/dL (75-99)
[2020-12-22 16:48] LABS: Glucose,Whole Blood 104 mg/dL (75-99)
--- NOTE | 2020-12-22 18:55 | P.PN ---
Subjective Progress Note Date: 12/22/20 Principal diagnosis: Acute renal failure secondary to acute tubular necrosis and prerenal acute renal failure Dehydration Hypomagnesemia Generalized weakness 70-year-old male with significant medical history of paroxysmal atrial fibrillation, diabetes mellitus, GERD/reflux, hyperlipidemia, hypertension, memory impairment, osteoarthritis, chronic vertigo, multiple orthopedic edmonds rgeries in the past, and several additional comorbidities. Patient had extensive diagnostic workup in emergency department with diagnostic labs revealing acute kidney injury, hypomagnesemia, and dehydration. CT of the head without contrast performed in the emergency department revealed age-related atrophy and chronic small vessel ischemia changes without acute intracranial processes. Throughout hospital stay patient's acute renal failure secondary to acute tubular necrosis with prerenal failure improved with IV hydration; hypo- magnesium improved with magnesium replacement protocol and additional mag oxide scheduled. Episodes of sensation of vertigo have decrease with Antivert 25 mg 3 times a day. Consultation with physical therapy and occupational therapy for recommendations for rehabilitation for strengthening conditioning has been initiated. 12/21/2020 Patient seen and examined at bedside resting comfortably in bed with no acute signs of distress. Patient endorses generalized weakness and intermittent cephalgia. Patient denies fever, chills, shortness of breath, chest pain, palpitations, abdominal pain nausea or vomiting or diarrhea at this time. Review of diagnostic labs hemoglobin 12.3, hematocrit 37.9 electrolytes within acceptable range. Lengthy discussion with patient regarding the need to cooperate with physical therapy/occupational therapy for recommendations for strengthening conditioning as retirement facility. Patient agreeable to treatment plan at this time. Patient acute signs of distress. 12/22/2020 Patient seen and examined at bedside resting comfortably in bed with no acute signs of distress. Patient endorses generalized weakness, intermittent cephalgia, and intermittent vertigo sensation. Patient denies fever, chills, shortness of breath, chest pain, palpitations, abdominal pain, nausea or vomiting or diarrhea at this time. Review of diagnostic labs hemoglobin 12.6, hematocrit 38.5, sodium 136, potassium 4.0, magnesium 1.6. Glucose monitoring within normal acceptable range. Patient is to be evaluated by physical therapy/occupational therapy for possible subacute rehab. Awaiting recommendations from physical therapy/occupational therapy. Objective - Vital Signs Vital signs: Vital Signs Temp 98.0 F 12/22/20 13:21 Pulse 65 12/22/20 18:09 Resp 16 12/22/20 13:21 BP 126/77 12/22/20 18:09 Pulse Ox 96 12/22/20 13:21 Intake & Output 12/21/20 12/22/20 12/22/20 18:59 06:59 18:59 Intake Total 200 Output Total 2400 1700 1999 Balance -2199 Intake: Intake, IV Titration 200 Amount Magnesium Sulfate-D5w Pmx 200 1 gm In Dextrose/Water 1 100ml.bag @ 100 mls/hr IVPB Q1H [facility] Rx#: [id number] Output: Urine 2400 1700 1999 Other: Voiding Method Urinal Urinal Urinal # Voids 1 # Bowel Movements 1 - Constitutional General appearance: Present: morbidly obese, no acute distress - EENT Eyes: Present: EOMI, PERRLA, normal appearance ENT: Present: normal oropharynx Ears: bilateral: normal - Neck Neck: Present: normal ROM Carotids: bilateral: upstroke normal Thyroid: bilateral: normal size - Respiratory Respiratory: bilateral: CTA (Anterior and posterior lung bishop) - Cardiovascular Heart rate: 84 Rhythm: regular Heart sounds: normal: S1, S2 - Peripheral pulses radial pulse Peripheral Pulses: bilateral: Normal - Gastrointestinal General gastrointestinal: Present: normal bowel sounds, soft - Integumentary Integumentary: Present: normal turgor - Neurologic Neurologic: Present: CNII-XII intact - Musculoskeletal Musculoskeletal: Present: generalized weakness - Psychiatric Psychiatric: Present: A&O x's 3 - Labs CBC & Chem 7: 12/22/20 05:25 12/22/20 05:25 Labs: Abnormal Lab Results - Last 24 Hours (Table) 12/21/20 12/22/20 12/22/20 Range/Units 21:18 05:25 05:25 RBC 4.03 L (4.40-5.60) X 10*6/uL Hgb 12.6 L (13.0-17.0) g/dL Hct 38.5 L (39.6-50.0) % Eosinophils # 0.50 H (0.04-0.35) X 10*3/uL Sodium 136 L (137-145) mmol/L Glucose 108 H (74-99) mg/dL POC Glucose (mg/dL) 102 H (75-99) mg/dL 12/22/20 12/22/20 12/22/20 Range/Units 06:53 11:24 16:36 RBC (4.40-5.60) X 10*6/uL Hgb (13.0-17.0) g/dL Hct (39.6-50.0) % Eosinophils # (0.04-0.35) X 10*3/uL Sodium (137-145) mmol/L Glucose (74-99) mg/dL POC Glucose (mg/dL) 120 H 168 H 114 H (75-99) mg/dL 12/22/20 Range/Units 16:43 RBC (4.40-5.60) X 10*6/uL Hgb (13.0-17.0) g/dL Hct (39.6-50.0) % Eosinophils # (0.04-0.35) X 10*3/uL Sodium (137-145) mmol/L Glucose (74-99) mg/dL POC Glucose (mg/dL) 104 H (75-99) mg/dL Microbiology - Last 24 Hours (Table) 12/18/20 07:50 Blood Culture - Preliminary Blood No Growth after 96 hours Assessment and Plan Assessment: Acute renal failure secondary to acute tubular necrosis and prerenal failure, improved with IV hydration Severe hypomagnesemia, corrected with magnesium replacement protocol, and magnesium oxide by mouth scheduled Dehydration corrected with IV hydration and increase of by mouth fluids History of severe vertigo, improved with IV hydration and Antivert 25 mg by mouth 3 times a day Leukocytosis trended downward within normal range History of proximal atrial fibrillation Diabetes mellitus type 2 Hypertension Hyperlipidemia History of syncopal episodes with falls GERD/reflux Hyperlipidemia History of memory impairment Degenerative joint disease History of fractured fibula History of back surgeries History of nicotine dependence Obesity of a BMI of 35 Full code Plan: Acute renal failure secondary to acute tubular necrosis with prerenal failure corrected with IV hydration Dehydration improved with IV hydration and increase of by mouth fluids Hypomagnesemia, improved with magnesium replacement protocol and mag oxide scheduled Episodes of vertigo, controlled with Antivert 25 mg by mouth 3 times a day; 1 dose of Valium given for severe vertigo Cephalgia, Fioricet as needed Continue home medications Monitor vital signs and diagnostic testing Awaiting on physical therapy/occupational therapy for possible placement retirement facility for strengthening conditioning Chronic severe vertigo patient has an appointment with [facility] neurosurgeon in December Further recommendations come based on patient's clinical condition Hopeful discharge to retirement facility if patient agreeable, if patient not agreeable to retirement facility to be discharged with home care Time with Patient: Greater than 30
[2020-12-22] MEDS: ATORVASTATIN 40 MG TAB PO SCH (20:00)
[2020-12-22 22:33] LABS: Glucose,Whole Blood 170 mg/dL (75-99)
[2020-12-22] MEDS: BACLOFEN 10 MG TAB PO PRN (22:54)
[2020-12-23] MEDS: BUTALB/APAP/CAFF 50-325-40MG TAB PO PRN ×2 (01:20→07:18)
[2020-12-23 03:02] VITALS: PULSE 65
[2020-12-23] MEDS: MAGNESIUM OXIDE 400 MG TAB PO SCH (07:18)
[2020-12-23] MEDS: HEPARIN SODIUM,PORCINE/PF 5,000 UNIT/0.5 ML SYRINGE SQ SCH (07:18)
[2020-12-23] MEDS: lisinopriL 20 MG TAB PO SCH (07:18)
[2020-12-23] MEDS: DULoxetine HCL 60 MG CAPSULE.DR PO SCH (07:19)
[2020-12-23] MEDS: MECLIZINE 25 MG TAB PO SCH (07:19)
[2020-12-23] MEDS: metFORMIN 500 MG TAB PO SCH (07:19)
[2020-12-23] MEDS: METOPROLOL TARTRATE 50 MG TAB PO SCH (07:20)
[2020-12-23] MEDS: GABAPENTIN 300 MG CAP PO SCH (07:20)
[2020-12-23 07:22] LABS: Glucose,Whole Blood 101 mg/dL (75-99)
[2020-12-23 09:28] VITALS: RESP 18; TEMP 98.1
[2020-12-23 09:29] VITALS: BP 141/95
[2020-12-23 10:35] VITALS: BMI 34.9
[2020-12-23 10:50] LABS: Basophils % (A) 1 %; Eosinophils # (A) 0.4 k/uL (0-0.7); Eosinophils % (A) 5 %; HCT 41.2 % (39.0-53.0); HGB 13.7 gm/dL (13.0-17.5); Lymphocytes # (A) 1.6 k/uL (1.0-4.8); Lymphocytes % (A) 18 %; MCH 31.7 pg (25.0-35.0); MCHC 33.4 g/dL (31.0-37.0); MCV 95.1 fL (80.0-100.0); Mean Platelet Volume 7.8; Monocytes # (A) 0.6 k/uL (0-1.0); Monocytes % (A) 7 %; Neutrophils # (A) 5.7 k/uL (1.3-7.7); Neutrophils % (A) 67 %; Platelet Count 218 k/uL (150-450); RBC 4.33 m/uL (4.30-5.90); RDW 14.1 % (11.5-15.5); WBC 8.4 k/uL (3.8-10.6)
[2020-12-23 11:20] LABS: African American GFR (CKD) >90 (>60 ml/min/1.73 sqM); Anion Gap 11 mmol/L; Blood Urea Nitrogen 16 mg/dL (9-20); Calcium 9.7 mg/dL (8.4-10.2); Carbon Dioxide 27 mmol/L (22-30); Chloride 102 mmol/L (98-107); Glucose 120 mg/dL (74-99); Magnesium 1.6 mg/dL (1.6-2.3); Non-African American GFR(CKD) 82 (>60 ml/min/1.73 sqM); Potassium 4.6 mmol/L (3.5-5.1); Sodium 140 mmol/L (137-145)
[2020-12-23 11:32] LABS: Glucose,Whole Blood 104 mg/dL (75-99)
[2020-12-23] MEDS: MULTIVITAMINS, THERA 1 EACH TAB PO SCH (12:35)
[2020-12-23] MEDS: FOLIC ACID 1 MG TAB PO SCH (12:35)
[2020-12-23] MEDS: THIAMINE 100 MG TAB PO SCH (12:35)
--- NOTE | 2020-12-23 18:38 | P.DS ---
Providers Date of admission: 12/18/20 09:02 Expected date of discharge: 12/23/20 Attending physician: Damon Rodriguez Primary care physician: Damon Rodriguez Hospital Course: 70-year-old male with significant medical history of paroxysmal atrial fibrillation, diabetes mellitus, GERD/reflux, hyperlipidemia, hypertension, memory impairment, osteoarthritis, chronic vertigo, multiple orthopedic surgeries in the past, and several additional comorbidities. Patient had extensive diagnostic workup in emergency department with diagnostic labs revealing acute kidney injury, hypomagnesemia, and dehydration. CT of the head without contrast performed in the emergency department revealed age-related atrophy and chronic small vessel ischemia changes without acute intracranial processes. Throughout hospital stay patient's acute renal failure secondary to acute tubular necrosis with prerenal failure improved with IV hydration; hypo- magnesium improved with magnesium replacement protocol and additional mag oxide scheduled. Episodes of sensation of vertigo have decrease with Antivert 25 mg 3 times a day. Physical therapy and occupational therapy as recommendation for subacute rehab for strengthening conditioning, patient adamantly refused subacute rehab. Patient to be discharged with stable condition guarded prognosis due to several multiple comorbidities. Assessment: Acute renal failure secondary to acute tubular necrosis and prerenal failure, improved with IV hydration Severe hypomagnesemia, corrected with magnesium replacement protocol, and magnesium oxide by mouth scheduled Dehydration corrected with IV hydration and increase of by mouth fluids History of severe vertigo, improved with IV hydration and Antivert 25 mg by mouth 3 times a day Leukocytosis trended downward within normal range History of proximal atrial fibrillation Diabetes mellitus type 2 Hypertension Hyperlipidemia History of syncopal episodes with falls GERD/reflux Hyperlipidemia History of memory impairment Degenerative joint disease History of fractured fibula History of back surgeries History of nicotine dependence Obesity of a BMI of 35 Full code Final diagnosis Acute renal failure secondary to acute tubular necrosis with prerenal failure, corrected with IV hydration Hypomagnesemia, improved with magnesium replacement protocol, with addition to mag oxide 400 mg 3 times a day Severe vertigo, improved with Antivert and IV hydration Cephalgia, controlled with ferrous and Cymbalta Health Concerns: Multiple comorbidities Complexity of medical treatment plan Pertinent Studies: Chest x-ray; no acute cardiopulmonary disease CT of the brain without contrast; age-related atrophy and chronic small vessel ischemia changes without acute intracranial processes Twelve-lead EKG; sinus rhythm with PACs Procedures: No procedures performed during hospital stay Patient Condition at Discharge: Fair Plan - Discharge Summary Discharge Rx Participant: Yes New Discharge Prescriptions: New Folic Acid 1 mg PO DAILY@1200 #30 tab Magnesium Oxide [Mag-Ox] 400 mg PO TID #90 tab Thiamine [Vitamin B-1] 100 mg PO DAILY@1200 #30 tab Meclizine [Antivert] 25 mg PO TID #90 tab Multivitamins, Thera [Multivitamin (formulary)] 1 each PO DAILY@1200 #30 tab Continue metFORMIN HCL [Glucophage] 500 mg PO BID Metoprolol Tartrate [Lopressor] 50 mg PO TID DULoxetine HCL [Cymbalta] 60 mg PO BID Baclofen [Lioresal] 20 mg PO BID PRN #6 tab PRN Reason: Muscle Spasm Atorvastatin [Lipitor] 40 mg PO HS lisinopriL 20 mg PO BID Butalb/APAP/Caff 50-325-40Mg [Fioricet 50-325-40] 1 tab PO TID PRN #9 tab PRN Reason: Migraine Headache Gabapentin [Neurontin] 300 mg PO BID #6 cap Discharge Medication List metFORMIN HCL [Glucophage] 500 mg PO BID 12/17/18 [History] Metoprolol Tartrate [Lopressor] 50 mg PO TID 11/06/19 [History] Atorvastatin [Lipitor] 40 mg PO HS 06/18/20 [History] DULoxetine HCL [Cymbalta] 60 mg PO BID 06/18/20 [History] Baclofen [Lioresal] 20 mg PO BID PRN #6 tab 07/07/20 [Rx] lisinopriL 20 mg PO BID 10/11/20 [History] Butalb/APAP/Caff 50-325-40Mg [Fioricet 50-325-40] 1 tab PO TID PRN #9 tab 10/22/20 [Rx] Gabapentin [Neurontin] 300 mg PO BID #6 cap 10/22/20 [Rx] Folic Acid 1 mg PO DAILY@1200 #30 tab 12/23/20 [Rx] Magnesium Oxide [Mag-Ox] 400 mg PO TID #90 tab 12/23/20 [Rx] Meclizine [Antivert] 25 mg PO TID #90 tab 12/23/20 [Rx] Multivitamins, Thera [Multivitamin (formulary)] 1 each PO DAILY@1200 #30 tab 12/23/20 [Rx] Thiamine [Vitamin B-1] 100 mg PO DAILY@1200 #30 tab 12/23/20 [Rx] Follow up Appointment(s)/Referral(s): Damon Rodriguez MD [Primary Care Provider] - 12/29/20 11:00 am [facility], [NON-STAFF] - 1-2 Days Patient Instructions/Handouts: Dehydration (DC), Vertigo (DC), Hypomagnesemia (DC) Discharge Disposition: HOME WITH HOME HEALTH SERVICES
--- NOTE | 2020-12-27 08:53 | CDI ---
Documentation Clarification Form Date: 12/27/20 From: Marley Mackenzie Admit Date: 12/18/2020 09:02:00 AM Patient Name: Kyle Bui Visit Number: [id number] Discharge Date: 12/23/2020 12:58:00 PM ATTENTION: The Clinical Documentation Specialists (CDI) and [facility] Coding Staff appreciate your assistance in clarifying documentation. Please respond to the clarification below the line at the bottom and electronically sign. The CDI & [facility] Coding staff will review the response and follow-up if needed. Please note: Queries are made part of the Legal Health Record. If you have any questions, please contact the author of this message via ITS. Dr. Damon Rodriguez, Your patient has the documented symptom of Altered Mental Status in the ED Note. Additional clarification regarding the etiology/cause of this symptom is requested. History/Risk Factors: DM T2, HLD, morbid obesity, PAF, dehydration, hypomagnesemia, HTN Clinical Indicators: 70 year old man who presents with altered mental status. Labs: BUN-31, Cr-1.77, Gluc-126, Mg-1.1, WBC-10.9, Neutrophils-8.1 CT: Age related atrophic and chronic small vessel ischemic change without acute intracranial process seen at this time. Treatment: IV fluids, IV Mg Please clarify the etiology of the symptom of Altered Mental Status: [ ] Encephalopathy, specify type [ ] Delirium (specify cause): [ ] Dementia (if know, specify Type and if with/without Behavioral Disturbance) [ ] Other condition (please specify) [ X] Unable to determine MTDD
== END 2020-12-23 12:58 | disposition home health service (06) | DRG 684 ==
LOC: EC 04:56 → OBSVTOIN 09:02 → 4SSUR 09:02
PROVIDERS: ADMIT Family Medicine; ATTEND Family Medicine
DX: N17.0 Acute kidney failure with tubular necrosis (principal); E11.9 Type 2 diabetes mellitus without complications; D72.829 Elevated white blood cell count, unspecified; E78.5 Hyperlipidemia, unspecified; E66.01 Morbid (severe) obesity due to excess calories; I48.0 Paroxysmal atrial fibrillation; E86.0 Dehydration; Z20.822 Contact with and (suspected) exposure to COVID-19; M47.9 Spondylosis, unspecified; E83.42 Hypomagnesemia; I10 Essential (primary) hypertension; K21.9 Gastro-esophageal reflux disease without esophagitis; R29.6 Repeated falls; R41.82 Altered mental status, unspecified; M19.90 Unspecified osteoarthritis, unspecified site; Z68.35 Body mass index [BMI] 35.0-35.9, adult; Z79.84 Long term (current) use of oral hypoglycemic drugs; Z79.899 Other long term (current) drug therapy; Z87.891 Personal history of nicotine dependence; Z91.81 History of falling; Z88.1 Allergy status to other antibiotic agents; Z88.0 Allergy status to penicillin; Z87.01 Personal history of pneumonia (recurrent); Z85.3 Personal history of malignant neoplasm of breast; Z86.14 Personal history of Methicillin resistant Staphylococcus aureus infection; Z86.19 Personal history of other infectious and parasitic diseases; Z90.13 Acquired absence of bilateral breasts and nipples; Z87.81 Personal history of (healed) traumatic fracture; Z87.39 Personal history of other diseases of the musculoskeletal system and connective tissue; Z98.890 Other specified postprocedural states; Z71.3 Dietary counseling and surveillance; Z82.49 Family history of ischemic heart disease and other diseases of the circulatory system
CPT/HCPCS: 36415; 70450; 71045; 80048; 80053; 81001; 82140; 83735; 84132; 84484; 85025; 85610; 85730; 87040; 87635; 93005; 94760; 96365; 96366; 99285

== ENCOUNTER 2021-01-09 12:15 | Observation (INO) | payer MEDICARE ==
[2021-01-09] MEDS ORDERED: SODIUM CHLORIDE 0.9% 500 ML 500 ML IV STA (14:02)
[2021-01-09 14:33] LABS: Appearance,Urine Clear (Clear); Bacteria,Urine Rare /hpf; Bilirubin,Urine Negative (Negative); Blood,Urine Negative (Negative); Color,Urine Yellow; Glucose,Urine (UA) Negative (Negative); Hyaline Casts,Urine 8 /lpf (0-2); Ketones,Urine Negative (Negative); Leukocyte Esterase,Urine Moderate (Negative); Mucus,Urine Rare /hpf; Nitrite,Urine Negative (Negative); PH, Urine 5.5 (5.0-8.0); Protein,Urine Negative (Negative); RBC,Urine 1 /hpf (0-5); Specific Gravity,Urine 1.018 (1.001-1.035); Squamous Epithelial Cell,Urine <1 /hpf (0-4); Urobilinogen,Urine <2.0 mg/dL (<2.0); WBC,Urine 9 /hpf (0-5)
[2021-01-09 14:36] LABS: INR 0.9 (<1.2); Partial Thromboplastin Time 27.1 sec (22.0-30.0)
[2021-01-09 14:39] LABS: Albumin 4.2 g/dL (3.5-5.0); Calcium 9.4 mg/dL (8.4-10.2); Magnesium 1.8 mg/dL (1.6-2.3); Potassium 4.9 mmol/L (3.5-5.1); Total Bilirubin 0.4 mg/dL (0.2-1.3); Total Protein 6.7 g/dL (6.3-8.2)
[2021-01-09 15:03] LABS: Basophils % (A) 0 %; Eosinophils # (A) 0.2 k/uL (0-0.7); Eosinophils % (A) 2 %; HCT 39.6 % (39.0-53.0); HGB 12.9 gm/dL (13.0-17.5); Lymphocytes # (A) 1.7 k/uL (1.0-4.8); Lymphocytes % (A) 19 %; MCH 31.1 pg (25.0-35.0); MCHC 32.5 g/dL (31.0-37.0); MCV 95.7 fL (80.0-100.0); Mean Platelet Volume 8.1; Monocytes # (A) 0.5 k/uL (0-1.0); Monocytes % (A) 6 %; Neutrophils # (A) 6.7 k/uL (1.3-7.7); Neutrophils % (A) 72 %; Platelet Count 190 k/uL (150-450); RBC 4.14 m/uL (4.30-5.90); RDW 13.6 % (11.5-15.5); WBC 9.3 k/uL (3.8-10.6)
--- NOTE | 2021-01-09 15:44 | XR ---
EXAMINATION TYPE: XR Hip Complete RT DATE OF EXAM: 01/09/2021 COMPARISON: 06/18/2020 HISTORY: Pain TECHNIQUE: 2 views FINDINGS: There is no sign of fracture nor dislocation. Hip joint space is fairly normal. Acetabulum is intact. Sacroiliac joint appears intact. IMPRESSION: No fracture. No significant arthritic disease. No change compared to old exam.
--- NOTE | 2021-01-09 15:45 | ED ---
General Adult HPI - General Chief complaint: Fall Stated complaint: Fall Time Seen by Provider: 01/09/21 13:25 Source: EMS, RN notes reviewed Mode of arrival: EMS - History of Present Illness Initial comments: 70-year-old male presents to the emergency department via EMS for evaluation of injuries related to multiple falls. Patient states he fell out of bed striking his head on the floor. Reports he crawled into the bathroom and was able to use the commode and then had a syncopal episode and fell again. He was able to get himself up off the floor and ambulated to the living room where she called EMS. Patient suspects he lost consciousness after the second fall but is unsure for how long. When asked about the cause of these falls, he attributes it to his benign positional vertigo. Upon arrival, patient complains of right hip pain and headache. States he has had multiple falls and hospitalizations for the same complaint. Patient does live alone. Denies fever, chills, chest pain, dizziness, difficulty breathing, abdominal pain, nausea, vomiting, dysuria, leidy turia, hematochezia. - Related Data Home Medications Medication Instructions Recorded Confirmed metFORMIN HCL [Glucophage] 500 mg PO BID 12/17/18 01/09/21 Metoprolol Tartrate [Lopressor] 50 mg PO TID 11/06/19 01/09/21 Atorvastatin [Lipitor] 40 mg PO HS 06/18/20 01/09/21 DULoxetine HCL [Cymbalta] 60 mg PO BID 06/18/20 01/09/21 lisinopriL 20 mg PO BID 10/11/20 01/09/21 Aspirin EC [Ecotrin] 325 mg PO DAILY 01/09/21 01/09/21 Multivitamins, Thera [Multivitamin 1 tab PO DAILY@1200 01/09/21 01/09/21 (formulary)] Triamcinolone 0.1% Ointment 1 applic TOPICAL BID 01/09/21 01/09/21 [Kenalog 0.1% Ointment] diphenhydrAMINE HCL [Benadryl] 25 mg PO BID 01/09/21 01/09/21 Previous Rx's Medication Instructions Recorded Baclofen [Lioresal] 20 mg PO BID PRN #6 tab 07/07/20 Butalb/APAP/Caff 50-325-40Mg 1 tab PO TID PRN #9 tab 10/22/20 [Fioricet 50-325-40] Gabapentin [Neurontin] 300 mg PO BID #6 cap 10/22/20 Folic Acid 1 mg PO DAILY@1200 #30 tab 12/23/20 Magnesium Oxide [Mag-Ox] 400 mg PO TID #90 tab 12/23/20 Meclizine [Antivert] 25 mg PO TID #90 tab 12/23/20 Thiamine [Vitamin B-1] 100 mg PO DAILY@1200 #30 tab 12/23/20 Allergies Allergy/AdvReac Type Severity Reaction Status Date / Time cephalexin monohydrate Allergy Anaphylaxis Verified 01/09/21 17:40 [From Keflex] Cephalosporins Allergy Anaphylaxis Verified 01/09/21 17:40 Penicillins Allergy Anaphylaxis Verified 01/09/21 17:40 Review of Systems ROS Statement: Those systems with pertinent positive or pertinent negative responses have been documented in the HPI. ROS Other: All systems not noted in ROS Statement are negative. Past Medical History Past Medical History: Atrial Fibrillation, Cancer, Diabetes Mellitus, GERD/Reflux, Hyperlipidemia, Hypertension, Memory Impairment, Osteoarthritis (OA), Pneumonia Additional Past Medical History / Comment(s): FELL 07/09/19 FX LT RADIUS, FREQUENT FALLS-REASON UNKNOWN. 03-10-16 FELL/FX RT FIBULA, VERTIGO , chronic headaches, BREAST CANCER History of Any Multi-Drug Resistant Organisms: CRE, MRSA Date of last positivie culture/infection: 02/2017 MDRO Source:: MRSA Past Surgical History: Back Surgery, Breast Surgery, Orthopedic Surgery Additional Past Surgical History / Comment(s): Bilateral mastectomy with right sided lymp node removal due to cancer, R knee cap removed, Back surgery for herniated disc., Brain stem surgery for decompression-for dizziness, right ankle ORIF, bilateral wrist fractures SX Past Anesthesia/Blood Transfusion Reactions: No Reported Reaction Past Psychological History: No Psychological Hx Reported Smoking Status: Former smoker Past Alcohol Use History: None Reported Past Drug Use History: None Reported - Past Family History Father History Unknown: Yes Family Medical History: Congestive Heart Failure (CHF) Additional Family Medical History / Comment(s): at 68. Mother History Unknown: Yes Family Medical History: Hypertension Additional Family Medical History / Comment(s): Pulmonary hypertension. at 78. General Exam General appearance: alert, in no apparent distress Head exam: Present: normocephalic, normal inspection Eye exam: Present: normal appearance, PERRL, EOMI. Absent: scleral icterus, conjunctival injection, nystagmus, periorbital swelling, periorbital tenderness ENT exam: Present: normal exam, mucous membranes moist, TM's normal bilaterally, normal external ear exam Neck exam: Present: normal inspection, full ROM. Absent: tenderness, meningismus Respiratory exam: Present: normal lung sounds bilaterally. Absent: respiratory distress, wheezes, rales, rhonchi, stridor, chest wall tenderness Cardiovascular Exam: Present: regular rate, bradycardia, irregular rhythm, other (Heart rate 56-65; history of A. fib though appears to be in sinus arrhythmia) GI/Abdominal exam: Present: soft, normal bowel sounds. Absent: distended, tenderness Left Hip exam: Present: normal inspection, full ROM, pelvic stability. Absent: tenderness, external rotation, internal rotation, shortening Neurovascular tendon exam: Present: no vascular compromise. Absent: pulse deficit, abnormal cap refill Right Hip exam: Present: normal inspection, full ROM, tenderness (Generalized tenderness upon palpation right medial hip), pelvic stability. Absent: external rotation, internal rotation, shortening Neurovascular tendon exam: Present: no vascular compromise. Absent: pulse defi cit, abnormal cap refill Back exam: Present: normal inspection, full ROM. Absent: muscle spasm, paraspinal tenderness Neurological exam: Present: alert, oriented X3, CN II-XII intact, other (Patient is alert and oriented 3. Unreliable as a historian as he seems to have difficulty recalling course of events.) Psychiatric exam: Present: normal affect, flat affect Skin exam: Present: warm, dry, normal color Course Vital Signs 01/09/21 01/09/21 12:34 18:09 Temperature 97.7 F Pulse Rate 56 L 61 Respiratory 18 18 Rate Blood Pressure 104/61 117/65 O2 Sat by Pulse 94 L 96 Oximetry Medical Decision Making - Medical Decision Making 70-year-old male with multiple medical conditions presents to the emergency department for evaluation of injuries sustained from falls this morning. Patient has a history of benign positional vertigo and has undergone brainstem surgeries related to this condition. Upon arrival, patient complains of a headache he attributes to the first fall this morning in which he struck his head on the floor. No obvious external injuries noted on physical exam. Patient is able to follow commands, has no periorbital tenderness or edema, EOMI, and PERRL. In conversation, it becomes apparent that this patient has difficulty with memory recall. In reviewing previous visits, it does appear that this is baseline for patient. Additional complaints include right hip pain that patient attributes to second fall of the morning. There is no shortening or rotation of the affected extremity; strong pedal pulse. Lab work was obtained. BUN and creatinine are both elevated. EKG shows sinus arrhythmia with a ventricular rate of 61. Chest x-ray shows no acute process. Hip x-ray is negative. CT of the brain is unchanged from previous visits. This patient's case was discussed with my attending . Due to patient's history of frequent and multiple falls, as well as his unreliability, and the fact that he lives alone, patient will be admitted to the hospital for further evaluation and treatment. Spoke with Dr. Moses who agrees to accept this admit. - Lab Data Result diagrams: 01/09/21 14:19 01/09/21 14:19 Lab Results 01/09/21 01/09/21 01/09/21 Range/Units 14:19 14:19 14:19 WBC 9.3 (3.8-10.6) k/uL RBC 4.14 L (4.30-5.90) m/uL Hgb 12.9 L (13.0-17.5) gm/dL Hct 39.6 (39.0-53.0) % MCV 95.7 (80.0-100.0) fL MCH 31.1 (25.0-35.0) pg MCHC 32.5 (31.0-37.0) g/dL RDW 13.6 (11.5-15.5) % Plt Count 190 (150-450) k/uL MPV 8.1 Neutrophils % 72 % Lymphocytes % 19 % Monocytes % 6 % Eosinophils % 2 % Basophils % 0 % Neutrophils # 6.7 (1.3-7.7) k/uL Lymphocytes # 1.7 (1.0-4.8) k/uL Monocytes # 0.5 (0-1.0) k/uL Eosinophils # 0.2 (0-0.7) k/uL Basophils # 0.0 (0-0.2) k/uL PT 10.0 (9.0-12.0) sec INR 0.9 (<1.2) APTT 27.1 (22.0-30.0) sec Sodium 141 (137-145) mmol/L Potassium 4.9 (3.5-5.1) mmol/L Chloride 104 (98-107) mmol/L Carbon Dioxide 27 (22-30) mmol/L Anion Gap 10 mmol/L BUN 37 H (9-20) mg/dL Creatinine 1.40 H (0.66-1.25) mg/dL Est GFR (CKD-EPI)AfAm 59 (>60 ml/min/1.73 sqM) Est GFR (CKD-EPI)NonAf 51 (>60 ml/min/1.73 sqM) Glucose 129 H (74-99) mg/dL Calcium 9.4 (8.4-10.2) mg/dL Magnesium 1.8 (1.6-2.3) mg/dL Total Bilirubin 0.4 (0.2-1.3) mg/dL AST 17 (17-59) U/L ALT 16 (4-49) U/L Alkaline Phosphatase 59 (38-126) U/L Troponin I (0.000-0.034) ng/mL Total Protein 6.7 (6.3-8.2) g/dL Albumin 4.2 (3.5-5.0) g/dL Urine Color Urine Appearance (Clear) Urine pH (5.0-8.0) Ur Specific [place] (1.001-1.035) Urine Protein (Negative) Urine Glucose (UA) (Negative) Urine Ketones (Negative) Urine Blood (Negative) Urine Nitrite (Negative) Urine Bilirubin (Negative) Urine Urobilinogen (<2.0) mg/dL Ur Leukocyte Esterase (Negative) Urine RBC (0-5) /hpf Urine WBC (0-5) /hpf Ur Squamous Epith Cells (0-4) /hpf Urine Bacteria (None) /hpf Hyaline Casts (0-2) /lpf Urine Mucus (None) /hpf 01/09/21 01/09/21 Range/Units 14:19 14:19 WBC (3.8-10.6) k/uL RBC (4.30-5.90) m/uL Hgb (13.0-17.5) gm/dL Hct (39.0-53.0) % MCV (80.0-100.0) fL MCH (25.0-35.0) pg MCHC (31.0-37.0) g/dL RDW (11.5-15.5) % Plt Count (150-450) k/uL MPV Neutrophils % % Lymphocytes % % Monocytes % % Eosinophils % % Basophils % % Neutrophils # (1.3-7.7) k/uL Lymphocytes # (1.0-4.8) k/uL Monocytes # (0-1.0) k/uL Eosinophils # (0-0.7) k/uL Basophils # (0-0.2) k/uL PT (9.0-12.0) sec INR (<1.2) APTT (22.0-30.0) sec Sodium (137-145) mmol/L Potassium (3.5-5.1) mmol/L Chloride (98-107) mmol/L Carbon Dioxide (22-30) mmol/L Anion Gap mmol/L BUN (9-20) mg/dL Creatinine (0.66-1.25) mg/dL Est GFR (CKD-EPI)AfAm (>60 ml/min/1.73 sqM) Est GFR (CKD-EPI)NonAf (>60 ml/min/1.73 sqM) Glucose (74-99) mg/dL Calcium (8.4-10.2) mg/dL Magnesium (1.6-2.3) mg/dL Total Bilirubin (0.2-1.3) mg/dL AST (17-59) U/L ALT (4-49) U/L Alkaline Phosphatase (38-126) U/L Troponin I <0.012 (0.000-0.034) ng/mL Total Protein (6.3-8.2) g/dL Albumin (3.5-5.0) g/dL Urine Color Yellow Urine Appearance Clear (Clear) Urine pH 5.5 (5.0-8.0) Ur Specific [place] 1.018 (1.001-1.035) Urine Protein Negative (Negative) Urine Glucose (UA) Negative (Negative) Urine Ketones Negative (Negative) Urine Blood Negative (Negative) Urine Nitrite Negative (Negative) Urine Bilirubin Negative (Negative) Urine Urobilinogen <2.0 (<2.0) mg/dL Ur Leukocyte Esterase Moderate H (Negative) Urine RBC 1 (0-5) /hpf Urine WBC 9 H (0-5) /hpf Ur Squamous Epith Cells <1 (0-4) /hpf Urine Bacteria Rare H (None) /hpf Hyaline Casts 8 H (0-2) /lpf Urine Mucus Rare H (None) /hpf - EKG Data EKG shows normal: sinus rhythm Rate: normal EKG Comments: EKG was obtained at 1432. Shows sinus rhythm with marked sinus arrhythmia. Ventricular rate 61, RI intervals 206, QRS duration 86, QT/QTC 426/428. Abnormal EKG - Radiology Data Radiology results: report reviewed, image reviewed Chest X-ray was obtained. Report was reviewed in it's entirety. Impression per Dr. Johnson is no active cardiopulmonary disease. No change. Right Hip X-ray was obtained. Report was reviewed in it's entirety. Impression per Dr. Johnson is no fracture. No significant arthritic disease. No change compared to old exam. CT of the brain was obtained without contrast. Report was reviewed in its entirety. Impression per Dr. Johnson is mild atrophy. No acute intracranial abnormality. No change. Disposition Clinical Impression: Multiple falls, Syncope, Chronic vertigo, Dehydration Disposition: ADMITTED IP TO THIS HOSP Condition: Serious Is patient prescribed a controlled substance at d/c from ED?: No Decision Date: 01/09/21 Decision Time: 16:37
--- NOTE | 2021-01-09 15:46 | XR ---
EXAMINATION TYPE: XR chest 2V DATE OF EXAM: 01/09/2021 COMPARISON: 12/18/2020 HISTORY: Syncope TECHNIQUE: FINDINGS: There is no heart failure nor confluent pneumonic infiltrate. Costophrenic angles are clear . There are no hilar masses. There are chest leads. Bony thorax is intact. IMPRESSION: No active cardiopulmonary disease. No change.
--- NOTE | 2021-01-09 15:56 | CT ---
EXAMINATION TYPE: CT brain wo con DATE OF EXAM: 01/09/2021 COMPARISON: 12/18/2020 HISTORY: Fall, syncope CT DLP: 1188.4 mGycm Automated exposure control for dose reduction was used. Exam performed with no contrast. There is cerebral mild cortical atrophy. There is no mass effect nor midline shift. There is no sign of intracranial hemorrhage. Calvarium is intact. There is normal aeration of the mastoid sinuses. Sku ll base is intact. IMPRESSION: Mild atrophy. No acute intracranial abnormality. No change.
[2021-01-09] MEDS ORDERED: NALOXONE 0.4 MG/ML 1 ML VIAL IV PRN (16:24)
[2021-01-09] MEDS ORDERED: HYDROmorphone 0.5 MG/0.5 ML SYRINGE IVP STA ×2 (16:28→21:58)
[2021-01-09] MEDS: SODIUM CHLORIDE 0.9% 1,000 ML IV SCH (16:36)
[2021-01-09 18:03] LABS: Glucose,Whole Blood 99 mg/dL (75-99)
[2021-01-10] MEDS: ACETAMINOPHEN TAB 325 MG TAB PO PRN (02:17)
[2021-01-10 05:09] LABS: Basophils % (A) 0 %; Eosinophils # (A) 0.3 k/uL (0-0.7); Eosinophils % (A) 4 %; HCT 41.7 % (39.0-53.0); HGB 13.4 gm/dL (13.0-17.5); Lymphocytes # (A) 2.2 k/uL (1.0-4.8); Lymphocytes % (A) 26 %; MCH 31.5 pg (25.0-35.0); MCHC 32.1 g/dL (31.0-37.0); MCV 98.2 fL (80.0-100.0); Mean Platelet Volume 8.2; Monocytes # (A) 0.4 k/uL (0-1.0); Monocytes % (A) 5 %; Neutrophils # (A) 5.3 k/uL (1.3-7.7); Neutrophils % (A) 62 %; Platelet Count 193 k/uL (150-450); RBC 4.24 m/uL (4.30-5.90); RDW 14.2 % (11.5-15.5); WBC 8.5 k/uL (3.8-10.6)
[2021-01-10 05:31] LABS: African American GFR (CKD) >90 (>60 ml/min/1.73 sqM); Anion Gap 7 mmol/L; Blood Urea Nitrogen 26 mg/dL (9-20); Calcium 9.3 mg/dL (8.4-10.2); Carbon Dioxide 28 mmol/L (22-30); Chloride 103 mmol/L (98-107); Glucose 102 mg/dL (74-99); Non-African American GFR(CKD) 79 (>60 ml/min/1.73 sqM); Potassium 4.8 mmol/L (3.5-5.1); Sodium 138 mmol/L (137-145)
[2021-01-10] MEDS: SODIUM CHLORIDE 0.9% 1,000 ML IV SCH ×2 (06:39→19:55)
--- NOTE | 2021-01-10 10:05 | P.HPIM ---
History of Present Illness This is a pleasant 70 years old male with past medical history of Atrial Fibrillation, not on anticoagulation, Diabetes Mellitus, GERD, Hyperlipidemia, Hypertension, Memory Impairment, Osteoarthritis (OA), Pneumonia, FREQUENT FALLS- REASON UNKNOWN, VERTIGO , chronic headaches, BREAST CANCER. Patient presents because of multiple falls, patient says that he fell getting out of his bed in his visit with his nightstand yesterday about 7:30 AM, later on he equal to the bathroom but he felt dizzy and fell again. He managed to crawl to the living room but he fell for the third time and he thinks he remained unconscious from 7:30 up to 11:30. Patient complains right-sided headache, also right forearm pain and right knee and ankle pain. Also states that he has history of right-sided weakness and he was going to rehab but now his right side is weaker than usual. Patient states that he has history of brainstem surgery He denies chest pain or dyspnea. No abdominal pain. No nausea vomiting or diarrhea. No dysuria or change in frequency or urgency He denies smoking, alcohol or illicit drugs Patient had fever of 102 on admission was slightly hypotensive with blood pressure 104/61 He has leukocytosis 19.2 K, rest of CBC, BMP, liver enzymes are not significantly elevated. Urinalysis is negative for infection. Negative influenza, RSV and coronavirus test chest x-ray: No acute osseous abnormality, there is patchy opacity in the right middle and right lower lobes Right hip x-ray, no fracture On admission patient was started on ceftriaxone and normal saline at 100 mL per hour Infectious disease and pulmonary team consult Review of Systems CONSTITUTIONAL: No fever, no malaise, no fatigue. HEENT: No recent visual problems or hearing problems. Denied any sore throat. CARDIOVASCULAR: No orthopnea, PND, no palpitations, no syncope. PULMONARY: No chest wall tenderness, no hemoptysis. GASTROINTESTINAL: No diarrhea, no nausea, no vomiting, no abdominal pain. Normoactive bowel sounds. NEUROLOGICAL: No headaches, no weakness, no numbness. HEMATOLOGICAL: Denies any bleeding or petechiae. GENITOURINARY: Denies any burning micturition, frequency, or urgency. MUSCULOSKELETAL/RHEUMATOLOGICAL: Denies any joint pain, swelling, or any muscle pain. ENDOCRINE: Denies any polyuria or polydipsia. Past Medical History Past Medical History: Atrial Fibrillation, Cancer, Diabetes Mellitus, GERD/Reflux, Hyperlipidemia, Hypertension, Memory Impairment, Osteoarthritis (OA), Pneumonia Additional Past Medical History / Comment(s): FELL 07/09/19 FX LT RADIUS, FREQUENT FALLS-REASON UNKNOWN. 03-10-16 FELL/FX RT FIBULA, VERTIGO , chronic headaches, BREAST CANCER History of Any Multi-Drug Resistant Organisms: CRE, MRSA Date of last positivie culture/infection: 02/2017 MDRO Source:: MRSA Past Surgical History: Back Surgery, Breast Surgery, Orthopedic Surgery Additional Past Surgical History / Comment(s): Bilateral mastectomy with right sided lymp node removal due to cancer, R knee cap removed, Back surgery for herniated disc., Brain stem surgery for decompression-for dizziness, right ankle ORIF, bilateral wrist fractures SX Past Anesthesia/Blood Transfusion Reactions: No Reported Reaction Past Psychological History: No Psychological Hx Reported Smoking Status: Former smoker Past Alcohol Use History: None Reported Past Drug Use History: None Reported - Past Family History Father History Unknown: Yes Family Medical History: Congestive Heart Failure (CHF) Additional Family Medical History / Comment(s): at 68. Mother History Unknown: Yes Family Medical History: Hypertension Additional Family Medical History / Comment(s): Pulmonary hypertension. at 78. Medications and Allergies Home Medications Medication Instructions Recorded Confirmed Type metFORMIN HCL [Glucophage] 500 mg PO BID 12/17/18 01/09/21 History Metoprolol Tartrate [Lopressor] 50 mg PO TID 11/06/19 01/09/21 History Atorvastatin [Lipitor] 40 mg PO HS 06/18/20 01/09/21 History DULoxetine HCL [Cymbalta] 60 mg PO BID 06/18/20 01/09/21 History Baclofen [Lioresal] 20 mg PO BID PRN #6 tab 07/07/20 01/09/21 Rx lisinopriL 20 mg PO BID 10/11/20 01/09/21 History Butalb/APAP/Caff 50-325-40Mg 1 tab PO TID PRN #9 tab 10/22/20 01/09/21 Rx [Fioricet 50-325-40] Gabapentin [Neurontin] 300 mg PO BID #6 cap 10/22/20 01/09/21 Rx Folic Acid 1 mg PO DAILY@1200 #30 tab 12/23/20 01/09/21 Rx Magnesium Oxide [Mag-Ox] 400 mg PO TID #90 tab 12/23/20 01/09/21 Rx Meclizine [Antivert] 25 mg PO TID #90 tab 12/23/20 01/09/21 Rx Thiamine [Vitamin B-1] 100 mg PO DAILY@1200 #30 tab 12/23/20 01/09/21 Rx Aspirin EC [Ecotrin] 325 mg PO DAILY 01/09/21 01/09/21 History Multivitamins, Thera [Multivitamin 1 tab PO DAILY@1200 01/09/21 01/09/21 History (formulary)] Triamcinolone 0.1% Ointment 1 applic TOPICAL BID 01/09/21 01/09/21 History [Kenalog 0.1% Ointment] diphenhydrAMINE HCL [Benadryl] 25 mg PO BID 01/09/21 01/09/21 History Allergies Allergy/AdvReac Type Severity Reaction Status Date / Time cephalexin monohydrate Allergy Anaphylaxis Verified 01/09/21 17:40 [From Keflex] Cephalosporins Allergy Anaphylaxis Verified 01/09/21 17:40 Penicillins Allergy Anaphylaxis Verified 01/09/21 17:40 Physical Exam Vitals: Vital Signs Temp Pulse Resp BP Pulse Ox 01/10/21 07:35 64 16 106/78 96 01/10/21 06:41 64 20 104/64 96 01/10/21 02:18 64 20 121/87 95 01/09/21 23:27 97.5 F L 63 18 135/84 95 01/09/21 18:09 61 18 117/65 96 01/09/21 12:34 97.7 F 56 L 18 104/61 94 L GENERAL: The patient is alert and oriented x3, not in any acute distress. Well developed, well nourished. HEENT: Pupils are round and equally reacting to light. EOMI. No scleral icterus. No conjunctival pallor. Normocephalic, atraumatic. No pharyngeal erythema. No thyromegaly. CARDIOVASCULAR: S1 and S2 present. No murmurs, rubs, or gallops. PULMONARY: Chest is clear to auscultation, no wheezing or crackles. ABDOMEN: Soft, nontender, nondistended, normoactive bowel sounds. No palpable or ganomegaly. MUSCULOSKELETAL: No joint swelling or deformity. EXTREMITIES: No cyanosis, clubbing, or pedal edema. NEUROLOGICAL: Gross neurological examination did not reveal any focal deficits. SKIN: No rashes. No petechiae Results CBC & Chem 7: 01/10/21 04:40 01/10/21 04:40 Labs: Abnormal Lab Results - Last 24 Hours (Table) 01/09/21 01/09/21 01/09/21 Range/Units 14:19 14:19 14:19 RBC 4.14 L (4.30-5.90) m/uL Hgb 12.9 L (13.0-17.5) gm/dL BUN 37 H (9-20) mg/dL Creatinine 1.40 H (0.66-1.25) mg/dL Glucose 129 H (74-99) mg/dL Ur Leukocyte Esterase Moderate H (Negative) Urine WBC 9 H (0-5) /hpf Urine Bacteria Rare H (None) /hpf Hyaline Casts 8 H (0-2) /lpf Urine Mucus Rare H (None) /hpf 01/10/21 01/10/21 Range/Units 04:40 04:40 RBC 4.24 L (4.30-5.90) m/uL Hgb (13.0-17.5) gm/dL BUN 26 H (9-20) mg/dL Creatinine (0.66-1.25) mg/dL Glucose 102 H (74-99) mg/dL Ur Leukocyte Esterase (Negative) Urine WBC (0-5) /hpf Urine Bacteria (None) /hpf Hyaline Casts (0-2) /lpf Urine Mucus (None) /hpf Assessment and Plan Assessment: Multiple falls, possible worsening right-sided weakness Right lower lobe pneumonia Sepsis, present on admission Diabetes mellitus History of chronic atrial fibrillation, not on anticoagulation Hypertension Hyperlipidemia Diabetes mellitus History of GERD History of memory impairment History of osteoarthritis History of frequent falls Plan: this is a pleasant 70 years old male who presents with pneumonia. Continue with antibiotics, consult infectious disease on follow-up recommendation Continue with hydration and monitor blood pressure and electrolytes pulmonary consult neurology consult Check orthostatic vitals Labs and medication were reviewed.. Continue same treatment. Continue with symptomatic treatment. Resume home medication. Monitor lytes and vitals. DVT and GI prophylaxis. Further recommendations depends on the clinical course of the patient DVT prophylaxis: Subcutaneous heparin GI Prophylaxis: Ppi PT/OT: Pending Prognosis is guarded
[2021-01-10] MEDS ORDERED: HYDROcodone/APAP 5-325MG 1 EACH TAB PO STA (10:55)
--- NOTE | 2021-01-10 11:46 | XR ---
EXAMINATION TYPE: XR ankle limited RT DATE OF EXAM: 01/10/2021 COMPARISON: NONE TECHNIQUE: Two views submitted HISTORY: Post op FINDINGS: There is a surgical change knee in near anatomic alignment. Ankle mortise maintained. No acute fractu re. Sizable spurs involving the calcaneus. IMPRESSION: 1. Postoperative change with no acute fracture. 2. Large calcaneal spurs.
--- NOTE | 2021-01-10 11:49 | XR ---
EXAMINATION TYPE: XR elbow limited RT DATE OF EXAM: 01/10/2021 COMPARISON: NONE HISTORY: Pain TECHNIQUE: 2 views submitted FINDINGS: Osseous structures intact. Joint spaces preserved. No pathologic joint effusion. Hypertroph ic spur involving the medial and lateral epicondyles. IMPRESSION: Bilateral epicondyles spurs.
[2021-01-10] MEDS: FOLIC ACID 1 MG TAB PO SCH (11:50)
[2021-01-10] MEDS: DULoxetine HCL 60 MG CAPSULE.DR PO SCH ×2 (11:50→19:52)
[2021-01-10] MEDS: GABAPENTIN 300 MG CAP PO SCH ×2 (11:50→19:52)
--- NOTE | 2021-01-10 11:50 | XR ---
EXAMINATION TYPE: XR forearm RT DATE OF EXAM: 01/10/2021 COMPARISON: NONE HISTORY: Pain Two views of the forearm demonstrate that the osseous structures appear to be intact and the joint sp aces appear to be preserved. There is no acute fracture or dislocation. IMPRESSION: 1. No acute fracture or dislocation
--- NOTE | 2021-01-10 11:52 | XR ---
EXAMINATION TYPE: XR knee limited RT DATE OF EXAM: 01/10/2021 COMPARISON: NONE HISTORY: Pain TECHNIQUE: Two views are submitted. FINDINGS: Chronic appearing fracture and deformity with small residual fracture line proximal fibula. Hypertrop hic arthropathy of the tricompartment joint spaces. Patellas small in size and there is questionable fragmentation of the patella correlate for previous trauma. Moderate-sized suprapatellar joint effusi on. No acute fracture. Hyperostosis involving the posterior cortex of the proximal tibia IMPRESSION: 1. Moderate-sized talar bursal fluid collection. 2. Remote trauma as discussed above.
[2021-01-10] MEDS: INSULIN ASPART (NovoLOG) 100 UNIT/ML VIAL SQ SCH ×3 (12:52→21:00)
[2021-01-10] MEDS: THIAMINE 100 MG TAB PO SCH (12:56)
[2021-01-10] MEDS: MULTIVITAMINS, THERA 1 EACH TAB PO SCH (12:56)
--- NOTE | 2021-01-10 13:14 | P.CNNES ---
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 As per EMS flow sheet, when they arrived, patient was upright in the chair in living room. Grandson mention patient fell out of bed while he was trying to shut off the alarm clock at 7:30 AM, struggled on the floor but was able to get up. He went to the bathroom and sat on the stool, felt dizzy and fell again, possibly striking his head on the table/counter top. Patient states that he may have lost consciousness for "quite some time". He was able to crawl to the living room. He called his grandson. Patient does not take any anticoagulants although claims of having history of atrial fibrillation. He does take aspirin. Patient was alert and oriented 2, unable to answer current year and his year. Patient is normally confused on frequent EMS contact. He was holding his right frontal region of his head saying it hurts, however denies any unusual discomfort. Patient's blood pressure at the scene was 156/65, pulse is 63, respirations 18, saturation 96%. Blood glucose was 194 mg/dL. X-ray of the hip shows no fracture or dislocation. No significant arthritis. Chest x-ray normal. CT head showed mild atrophy. No acute intracranial abnormality. EKG shows sinus rhythm with marked sinus arrhythmia. Inferior infarct, age undetermined. Patient has been seen by myself on 05/10/2020 for toxic metabolic encephalopa thy, right occipital pain, possible occipital neuralgia, previous history of craniotomy in the brainstem region on the right for microvascular decompression for vertigo per patient. History of BPPV, diabetes and paroxysmal atrial fibrillation. Patient also has been seen by Dr. Linder most recently on 07/05/2020 for dizziness and lower ex 20 weakness. Patient has presented with several falls at home and continues to be dizzy. Patient has history of right lower craniotomy for dizziness performed by Dr. Ja Ferraro in 2017. Patient's MRI of the brain without contrast from 05/09/2019 showed postoperative changes. Consider contrast enhance exam for better evaluation of infection, if suspected clinically and interval change in the appearance of the inferior cerebellum on the right as described is indeterminate, but may represent normal evolution of postoperative findings. Patient had an EEG on 05/09/2019 which all was also abnormal EEG due to generalized slowing of background, intermittent, at least moderate in degree. This is suggestive of generalized cerebral dysfunction, as can be seen with toxic metabolic encephalopathy or related to diffuse structural brain abnormality. No epileptiform activity was seen. Patient states he has history of 2 different surgeries for vertigo. The first one occurred 10 years ago which was performed by Dr. Luis Palomino, in which patient underwent microvascular decompression using a surgical cotton. Patient states that over years it got disintegrated and a second surgery was performed by Dr. Ja Ferraro in February 2017, in which a silicone was used.. The first surgery was complicated by development of leaking spinal fluid and the second surgery was complicated by infection and blood clot in the incision site requiring another surgery. Patient has history of diabetes for 10 years, also has hypertension. Never smoked, does not drink alcohol. He has history of paroxysmal atrial fibrillation, currently not on any anticoagulants. He does take aspirin every day. Patient was recently discharged from [facility] on 08/12/2020. Patient denies any focal weakness, complains of pain in the head in the frontal region and right leg. Patient states that on 03/11/2017 he had fell, shattered his ankle. He also was diagnosed with a ruptured disc in the back. At one point he was planned to be operated, but then was canceled and was given epidural injection once. He also has history of torn meniscus. Patient at present complains of headache above the right incision and above the right eye, which he rated 7/10, also pain in the right leg from knee down to the foot, 7/10. Review of Systems As above in detail. Denies any problem with the vision, hoarseness, sore throat, dysphagia. Patient has chronic vertigo. Denies any chest pain, shortness of breath, denies any abdominal pain, nausea vomiting diarrhea. No fever or chills. Past Medical History Past Medical History: Atrial Fibrillation, Cancer, Diabetes Mellitus, GERD/Reflux, Hyperlipidemia, Hypertension, Memory Impairment, Osteoarthritis (OA), Pneumonia Additional Past Medical History / Comment(s): FELL 07/09/19 FX LT RADIUS, FREQUENT FALLS-REASON UNKNOWN. 03-10-16 FELL/FX RT FIBULA, VERTIGO , chronic headaches, BREAST CANCER History of Any Multi-Drug Resistant Organisms: CRE, MRSA Date of last positivie culture/infection: 02/2017 MDRO Source:: MRSA Past Surgical History: Back Surgery, Breast Surgery, Orthopedic Surgery Additional Past Surgical History / Comment(s): Bilateral mastectomy with right sided lymp node removal due to cancer, R knee cap removed, Back surgery for herniated disc., Brain stem surgery for decompression-for dizziness, right ankle ORIF, bilateral wrist fractures SX Past Anesthesia/Blood Transfusion Reactions: No Reported Reaction Past Psychological History: No Psychological Hx Reported Smoking Status: Former smoker Past Alcohol Use History: None Reported Past Drug Use History: None Reported - Past Family History Father History Unknown: Yes Family Medical History: Congestive Heart Failure (CHF) Additional Family Medical History / Comment(s): at 68. Mother History Unknown: Yes Family Medical History: Hypertension Additional Family Medical History / Comment(s): Pulmonary hypertension. at 78. Medications and Allergies Home Medications Medication Instructions Recorded Confirmed Type metFORMIN HCL [Glucophage] 500 mg PO BID 12/17/18 01/09/21 History Metoprolol Tartrate [Lopressor] 50 mg PO TID 11/06/19 01/09/21 History Atorvastatin [Lipitor] 40 mg PO HS 06/18/20 01/09/21 History DULoxetine HCL [Cymbalta] 60 mg PO BID 06/18/20 01/09/21 History Baclofen [Lioresal] 20 mg PO BID PRN #6 tab 07/07/20 01/09/21 Rx lisinopriL 20 mg PO BID 10/11/20 01/09/21 History Butalb/APAP/Caff 50-325-40Mg 1 tab PO TID PRN #9 tab 10/22/20 01/09/21 Rx [Fioricet 50-325-40] Gabapentin [Neurontin] 300 mg PO BID #6 cap 10/22/20 01/09/21 Rx Folic Acid 1 mg PO DAILY@1200 #30 tab 12/23/20 01/09/21 Rx Magnesium Oxide [Mag-Ox] 400 mg PO TID #90 tab 12/23/20 01/09/21 Rx Meclizine [Antivert] 25 mg PO TID #90 tab 12/23/20 01/09/21 Rx Thiamine [Vitamin B-1] 100 mg PO DAILY@1200 #30 tab 12/23/20 01/09/21 Rx Aspirin EC [Ecotrin] 325 mg PO DAILY 01/09/21 01/09/21 History Multivitamins, Thera [Multivitamin 1 tab PO DAILY@1200 01/09/21 01/09/21 History (formulary)] Triamcinolone 0.1% Ointment 1 applic TOPICAL BID 01/09/21 01/09/21 History [Kenalog 0.1% Ointment] diphenhydrAMINE HCL [Benadryl] 25 mg PO BID 01/09/21 01/09/21 History Allergies Allergy/AdvReac Type Severity Reaction Status Date / Time cephalexin monohydrate Allergy Anaphylaxis Verified 01/09/21 17:40 [From Keflex] Cephalosporins Allergy Anaphylaxis Verified 01/09/21 17:40 Penicillins Allergy Anaphylaxis Verified 01/09/21 17:40 Physical Examination - Vital Signs Vital Signs: Vital Signs Temp Pulse Resp BP Pulse Ox 01/10/21 07:35 64 16 106/78 96 01/10/21 06:41 64 20 104/64 96 01/10/21 02:18 64 20 121/87 95 01/09/21 23:27 97.5 F L 63 18 135/84 95 01/09/21 18:09 61 18 117/65 96 01/09/21 12:34 97.7 F 56 L 18 104/61 94 L Patient is an elderly male, in no distress. Patient is alert awake oriented to time place and person. Patient states it is November and the year is 2020. He knows name of the current president. He states he is in [facility] in [facility]. He knows his complete date of . Speech and language functions are normal. Attention, concentration and fund of knowledge is adequate. Detailed testing deferred On cranial examination, pupils are round and reacting to light, visual bishop are full on confrontation, extraocular muscles are intact with no nystagmus. Face is symmetric, tongue protrudes to the midline. Palatal elevation and sensation normal, hearing significantly decreased for finger rubbing bilaterally and shoulder shrug normal, facial sensation normal. On neurologic examination revealed no significant wax on either side. On muscle strength testing, there is no pronator drift and the strength is slightly weak on the right with the deltoid 5-, hip flexion 4+, sales floor team leader 5-. The strength is normal on the left side. Deep tendon reflexes are absent all over except left knee which is 1+. Plantars are flat bilaterally. Sensory to touch is equal with no neglect. Cerebellar function showed no ataxia for [id number] testing. Patient is mildly tremulous for [id number] on the right. No dysdiadochokinesia. Tone and bulk of muscles normal. Gait deferred. On general examination, there is no carotid bruit or murmur, S1-S2 audible. Abdomen is soft nontender. Chest is clear. Peripheral pulses are present. Patient has mild peripheral edema. Results - Laboratory Findings CBC and BMP: 01/11/21 07:10 01/11/21 07:00 Abnormal Lab Findings: Abnormal Labs 01/09/21 01/09/21 01/09/21 14:19 14:19 14:19 RBC 4.14 L Hgb 12.9 L BUN 37 H Creatinine 1.40 H Glucose 129 H Ur Leukocyte Esterase Moderate H Urine WBC 9 H Urine Bacteria Rare H Hyaline Casts 8 H Urine Mucus Rare H 01/10/21 01/10/21 04:40 04:40 RBC 4.24 L Hgb BUN 26 H Creatinine Glucose 102 H Ur Leukocyte Esterase Urine WBC Urine Bacteria Hyaline Casts Urine Mucus Assessment and Plan Assessment: * History of recurrent falls, probably multifactorial, reasons as mentioned below. * Recurrent chronic vertigo, probably due to peripheral vestibular dysfunction. * History of BPPV, status post microvascular decompression right occipital region * Cephalalgia, right leg pain, status post fall. * Acute kidney injury (BUN 37/creatinine 1.4), now improving. * Mildly abnormal urinalysis, rule out UTI. * Diabetes * Paroxysmal atrial fibrillation, currently only on aspirin, not on anticoagulation. * Hypertension * Obesity Plan: * Patient has history of frequent falls in the past. His falls are probably multifactorial as mentioned above. Continue meclizine. * Patient is complaining of significant cephalalgia, status post fall. We will give him Fioricet which has worked for him in the past. Continue Cymbalta. * Right leg pain (involving the right knee, right ankle at the site of previous tibial fibular fracture) is of unclear etiology. Rule out radiculopathy versus local trauma from fall. Patient is admitted to having low back pain - 11/02. Continue gabapentin, Cymbalta. Suggest orthopedic consultation. * Patient has history of borderline B12 and B6 in the past. We will resume B12 and B6 replacement. * Patient had a normal CTA of head and neck performed 02/14/2020. * Patient reports of having paroxysmal atrial fibrillation in the past, currently not on any anticoagulation. Will defer to IM. Suggest cardiology consultation. * Neurology will follow
[2021-01-10] MEDS ORDERED: CYANOCOBALAMIN 1,000 MCG/ML 1 ML VIAL IM ONE (13:30)
[2021-01-10] MEDS: MECLIZINE 25 MG TAB PO SCH ×2 (16:37→21:00)
[2021-01-10] MEDS: METOPROLOL TARTRATE 50 MG TAB PO SCH ×2 (16:37→21:00)
[2021-01-10] MEDS: PYRIDOXINE 50 MG TAB PO SCH (16:37)
[2021-01-10] MEDS: BUTALB/APAP/CAFF 50-325-40MG TAB PO PRN ×2 (16:42→23:17)
[2021-01-10 17:03] LABS: Glucose,Whole Blood 169 mg/dL (75-99)
[2021-01-10] MEDS: HYDROcodone/APAP 5-325MG 1 EACH TAB PO PRN (19:52)
[2021-01-10] MEDS: ATORVASTATIN 40 MG TAB PO SCH (19:52)
[2021-01-10 20:07] LABS: Glucose,Whole Blood 162 mg/dL (75-99)
[2021-01-11] MEDS: HYDROcodone/APAP 5-325MG 1 EACH TAB PO PRN ×3 (04:08→20:06)
[2021-01-11 06:09] LABS: Glucose,Whole Blood 132 mg/dL (75-99)
[2021-01-11] MEDS: BACLOFEN 10 MG TAB PO PRN ×2 (06:25→20:06)
[2021-01-11] MEDS: INSULIN ASPART (NovoLOG) 100 UNIT/ML VIAL SQ SCH ×4 (06:30→20:07)
[2021-01-11 07:23] LABS: Basophils % (A) 0 %; Eosinophils # (A) 0.3 k/uL (0-0.7); Eosinophils % (A) 4 %; HCT 40.1 % (39.0-53.0); Lymphocytes # (A) 2.5 k/uL (1.0-4.8); Lymphocytes % (A) 29 %; MCH 31.6 pg (25.0-35.0); MCHC 32.4 g/dL (31.0-37.0); MCV 97.6 fL (80.0-100.0); Mean Platelet Volume 8.1; Monocytes # (A) 0.5 k/uL (0-1.0); Monocytes % (A) 6 %; Neutrophils # (A) 5.1 k/uL (1.3-7.7); Neutrophils % (A) 60 %; Platelet Count 193 k/uL (150-450); RBC 4.11 m/uL (4.30-5.90); RDW 13.7 % (11.5-15.5); WBC 8.6 k/uL (3.8-10.6)
[2021-01-11 07:36] LABS: ALT 17 U/L (4-49); AST 22 U/L (17-59); African American GFR (CKD) >90 (>60 ml/min/1.73 sqM); Albumin 3.9 g/dL (3.5-5.0); Alkaline Phosphatase 59 U/L (38-126); Anion Gap 8 mmol/L; Blood Urea Nitrogen 19 mg/dL (9-20); Calcium 9.6 mg/dL (8.4-10.2); Carbon Dioxide 27 mmol/L (22-30); Chloride 102 mmol/L (98-107); Glucose 118 mg/dL (74-99); Magnesium 1.4 mg/dL (1.6-2.3); Non-African American GFR(CKD) 84 (>60 ml/min/1.73 sqM); Potassium 4.7 mmol/L (3.5-5.1); Sodium 137 mmol/L (137-145); Total Bilirubin 0.5 mg/dL (0.2-1.3); Total Protein 6.7 g/dL (6.3-8.2)
[2021-01-11] MEDS ORDERED: Magnesium Replacement Protocol 1 EACH MISC MISCELLANE PRN (08:07)
[2021-01-11] MEDS: SODIUM CHLORIDE 0.9% 1,000 ML IV SCH ×2 (08:32→20:07)
[2021-01-11] MEDS: MAGNESIUM SULFATE-D5W PMX 1 GM in DEXTROSE/WATER 1 100ML.BAG IVPB SCH ×3 (08:32→14:05)
[2021-01-11] MEDS: ASPIRIN 325 MG TAB PO SCH (08:33)
[2021-01-11] MEDS: GABAPENTIN 300 MG CAP PO SCH ×2 (08:33→20:05)
[2021-01-11] MEDS: MECLIZINE 25 MG TAB PO SCH ×3 (08:33→20:06)
[2021-01-11] MEDS: DULoxetine HCL 60 MG CAPSULE.DR PO SCH ×2 (08:33→20:07)
[2021-01-11] MEDS: METOPROLOL TARTRATE 50 MG TAB PO SCH ×3 (08:33→20:06)
[2021-01-11] MEDS: BUTALB/APAP/CAFF 50-325-40MG TAB PO PRN ×3 (08:33→20:06)
[2021-01-11] MEDS: MULTIVITAMINS, THERA 1 EACH TAB PO SCH (08:33)
[2021-01-11] MEDS: FOLIC ACID 1 MG TAB PO SCH (08:33)
[2021-01-11] MEDS: PYRIDOXINE 50 MG TAB PO SCH (08:33)
[2021-01-11] MEDS: THIAMINE 100 MG TAB PO SCH (08:34)
[2021-01-11] MEDS ORDERED: lisinopriL 5 MG TAB PO SCH (10:15)
[2021-01-11 11:52] LABS: Glucose,Whole Blood 139 mg/dL (75-99)
--- NOTE | 2021-01-11 12:00 | P.CRDCN ---
History of Present Illness History of present illness: This is a pleasant 70-year-old male past medical history significant for diabetes mellitus, hypertension, dyslipidemia, vertigo, patient states he has had 3 brain stem corrective surgeries (one in 2017 in [place], and 2 in [place] in 2018, multiple falls, and irregular heartbeat. He does not have a-fib as a diagnosis but states he has always been told his heart rate is irregular. He has been advised in the past to follow with a uniform attendant for outpatient heart monitoring however has never done that. He is currently in the hospital secondary to multiple falls at home. We have been asked to see him in consultation secondary to dizziness. Patient states he fell out of bed while he was trying to shut off the alarm clock around 7:30am, he struggled on the floor but was able to get up. He went to the bathroom and sat on the stool, felt dizzy and fell again, hitting his head. Patient states that he may have lost consciousness, unknown time. He was able to crawl to the living room. His grandson was able to help him up. EMS was called and patient was brought in the emergency department. He denies history of [place], stroke, coronary artery disease. When EMS arrived, patient was in the chair, he was confused, alert oriented x 2, unable to answer current year and his year, vital signs were stable, EKG revealed sinus rhythm with sinus arrhythmia. DIAGNOSTICS: EKG sinus rhythm, heart rate 61,sinus arrhythmia, no significant ST-T wave abnormalities. Laboratory data reviewed, WBC 8.6, hemoglobin 13, platelets 193, sodium 137, potassium 4.7, BUN 19, serum, 0.9, magnesium 1.4, covid-19 PCR negative Current daily cardiac medications include metoprolol tartrate 50mg TID, aspirin, atorvastatin 40mg nightly Most recent echocardiogram obtained in June 2019 EF 55-60%, RV is moderately enlarged, mild tricuspid regurgitation. Most recent stress test in 2016 was a Lexiscan stress test was negative for reversible cardiac ischemia. REVIEW OF SYSTEMS At the time of my exam: CONSTITUTIONAL: Denies fever or chills. CARDIOVASCULAR: Denies chest pain, shortness of breath, orthopnea, PND or palpitations. RESPIRATORY: Denies cough. GASTROINTESTINAL: Denies abdominal pain, diarrhea, constipation, nausea or vomiting. MUSCULOSKELETAL: Complains of pain to the left arm, right ankle pain NEUROLOGIC: +vertigo Denies numbness, tingling or weakness. ENDOCRINE: Denies fatigue, weight change, polydipsia or polyurina. GENITOURINARY: Denies burning, hematuria or urgency with micturation. HEMATOLOGIC: Denies history of anemia or bleeding. PHYSICAL EXAMINATION Blood pressure 142/76, heart rate 63, afebrile, maintaining oxygen saturation on room air CONSTITUTIONAL: No apparent distress. Obese. HEENT: Head is normocephalic. Pupils are equal, round. Sclerae anicteric. Mucous membranes of the mouth are moist. No JVD. No carotid bruit. CHEST EXAMINATION: Lungs are clear to auscultation. No chest wall tenderness is noted on palpation or with deep breathing. HEART EXAMINATION: Irregular rate and rhythm. S1, S2 heard. No murmurs, gallops or rub. ABDOMEN: Soft, nontender. Positive bowel sounds. EXTREMITIES: 2+ peripheral pulses, no lower extremity edema and no calf tenderness. Left upper extremity sling and caste in place. NEUROLOGIC EXAMINATION: Patient is awake, alert and oriented x3. ASSESSMENT Dizziness suggestive of vertigo with history of vertigo, patient states his symptoms are what he experiences with vertigo, No evidence of melita or tachy- arrhythmia on telemetry Vertigo Fall Hypertension Dyslipidemia Diabetes mellitus Obesity, BMI 38 PLAN -Symptoms likely related to vertigo. -Obtain 2D echocardiogram and doppler study to assess cardiac structure and function. -Ongoing telemetry monitoring. -Re start patient's home lisinopril for blood pressure management -Continue patient's home cardiac medications -Thank you kindly for this consultation. Nurse Practitioner note has been reviewed, I agree with a documented findings and plan of care. Patient was seen and examined. Past Medical History Past Medical History: Atrial Fibrillation, Cancer, Diabetes Mellitus, GERD/Reflux, Hyperlipidemia, Hypertension, Memory Impairment, Osteoarthritis (OA), Pneumonia Additional Past Medical History / Comment(s): FELL 07/09/19 FX LT RADIUS, FREQUENT FALLS-REASON UNKNOWN. 03-10-16 FELL/FX RT FIBULA, VERTIGO , chronic headaches, BREAST CANCER History of Any Multi-Drug Resistant Organisms: CRE, MRSA Date of last positivie culture/infection: 02/2017 MDRO Source:: MRSA Past Surgical History: Back Surgery, Breast Surgery, Orthopedic Surgery Additional Past Surgical History / Comment(s): Bilateral mastectomy with right sided lymp node removal due to cancer, R knee cap removed, Back surgery for herniated disc., Brain stem surgery for decompression-for dizziness, right ankle ORIF, bilateral wrist fractures SX Past Anesthesia/Blood Transfusion Reactions: No Reported Reaction Past Psychological History: No Psychological Hx Reported Smoking Status: Former smoker Past Alcohol Use History: None Reported Past Drug Use History: None Reported - Past Family History Father History Unknown: Yes Family Medical History: Congestive Heart Failure (CHF) Additional Family Medical History / Comment(s): at 68. Mother History Unknown: Yes Family Medical History: Hypertension Additional Family Medical History / Comment(s): Pulmonary hypertension. at 78. Medications and Allergies Home Medications Medication Instructions Recorded Confirmed Type metFORMIN HCL [Glucophage] 500 mg PO BID 12/17/18 01/09/21 History Metoprolol Tartrate [Lopressor] 50 mg PO TID 11/06/19 01/09/21 History Atorvastatin [Lipitor] 40 mg PO HS 06/18/20 01/09/21 History DULoxetine HCL [Cymbalta] 60 mg PO BID 06/18/20 01/09/21 History Baclofen [Lioresal] 20 mg PO BID PRN #6 tab 07/07/20 01/09/21 Rx lisinopriL 20 mg PO BID 10/11/20 01/09/21 History Butalb/APAP/Caff 50-325-40Mg 1 tab PO TID PRN #9 tab 10/22/20 01/09/21 Rx [Fioricet 50-325-40] Gabapentin [Neurontin] 300 mg PO BID #6 cap 10/22/20 01/09/21 Rx Folic Acid 1 mg PO DAILY@1200 #30 tab 12/23/20 01/09/21 Rx Magnesium Oxide [Mag-Ox] 400 mg PO TID #90 tab 12/23/20 01/09/21 Rx Meclizine [Antivert] 25 mg PO TID #90 tab 12/23/20 01/09/21 Rx Thiamine [Vitamin B-1] 100 mg PO DAILY@1200 #30 tab 12/23/20 01/09/21 Rx Aspirin EC [Ecotrin] 325 mg PO DAILY 01/09/21 01/09/21 History Multivitamins, Thera [Multivitamin 1 tab PO DAILY@1200 01/09/21 01/09/21 History (formulary)] Triamcinolone 0.1% Ointment 1 applic TOPICAL BID 01/09/21 01/09/21 History [Kenalog 0.1% Ointment] diphenhydrAMINE HCL [Benadryl] 25 mg PO BID 01/09/21 01/09/21 History Allergies Allergy/AdvReac Type Severity Reaction Status Date / Time cephalexin monohydrate Allergy Anaphylaxis Verified 01/09/21 17:40 [From Keflex] Cephalosporins Allergy Anaphylaxis Verified 01/09/21 17:40 Penicillins Allergy Anaphylaxis Verified 01/09/21 17:40 Physical Exam Vitals: Vital Signs Temp Pulse Pulse Resp BP BP Pulse Ox 01/11/21 04:00 98.1 F 63 18 142/75 96 01/11/21 02:00 65 18 01/10/21 23:21 98.2 F 65 18 159/69 96 01/10/21 20:00 98.5 F 65 18 168/97 95 01/10/21 16:00 98.2 F 72 16 145/74 97 01/10/21 12:00 74 18 120/87 97 Intake and Output 01/10/21 01/11/21 01/11/21 22:59 06:59 14:59 Intake Total 200 600 660 Output Total 1825 1353 Balance -1625 -753 660 Intake: Intake, IV Titration 600 Amount Sodium Chloride 0.9% 1, 600 000 ml @ 75 mls/hr IV . [id number] [facility] Rx#:[id number] Oral 200 660 Output: Urine 1825 1353 Other: Voiding Method Toilet Toilet Urinal Urinal # Voids 1 1 Weight 158.5 kg Results 01/11/21 07:10 01/11/21 07:00 Cardiac Enzymes 01/11/21 Range/Units 07:00 AST 22 (17-59) U/L CBC 01/11/21 Range/Units 07:10 WBC 8.6 (3.8-10.6) k/uL RBC 4.11 L (4.30-5.90) m/uL Hgb 13.0 (13.0-17.5) gm/dL Hct 40.1 (39.0-53.0) % Plt Count 193 (150-450) k/uL Comprehensive Metabolic Panel 01/11/21 Range/Units 07:00 Sodium 137 (137-145) mmol/L Potassium 4.7 (3.5-5.1) mmol/L Chloride 102 (98-107) mmol/L Carbon Dioxide 27 (22-30) mmol/L BUN 19 (9-20) mg/dL Creatinine 0.92 (0.66-1.25) mg/dL Glucose 118 H (74-99) mg/dL Calcium 9.6 (8.4-10.2) mg/dL AST 22 (17-59) U/L ALT 17 (4-49) U/L Alkaline Phosphatase 59 (38-126) U/L Total Protein 6.7 (6.3-8.2) g/dL Albumin 3.9 (3.5-5.0) g/dL Current Medications Generic Name Dose Route Start Last Admin Trade Name Freq PRN Reason Stop Dose Admin Acetaminophen 650 mg 01/09/21 16:24 01/10/21 02:17 Acetaminophen Tab 325 Mg Tab PO 650 mg Q6HR PRN Administration Mild Pain or Fever > 100.5 Acetaminophen/Butalbital/Caffeine 1 each 01/10/21 10:56 01/10/21 23:17 Butalb/Apap/Caff 50-325-40mg Tab PO 1 each TID PRN Administration Migraine Headache Hydrocodone Bitart/Acetaminophen 1 each 01/10/21 10:55 01/11/21 04:08 Hydrocodone/Apap 5-325mg 1 Each Tab PO 1 each Q6HR PRN Administration Pain Aspirin 325 mg 01/11/21 09:00 Aspirin 325 Mg Tab PO DAILY [facility] Atorvastatin Calcium 40 mg 01/10/21 21:00 01/10/21 19:52 Atorvastatin 40 Mg Tab PO 40 mg HS YARIEL Administration Baclofen 20 mg 01/10/21 10:56 01/11/21 06:25 Baclofen 10 Mg Tab PO 20 mg BID PRN Administration Muscle Spasm Duloxetine HCl 60 mg 01/10/21 11:00 01/10/21 19:52 Duloxetine Hcl 60 Mg Capsule.Dr PO 60 mg BID YARIEL Administration Folic Acid 1 mg 01/10/21 12:00 01/10/21 11:50 Folic Acid 1 Mg Tab PO 1 mg DAILY@1200 YARIEL Administration Gabapentin 300 mg 01/10/21 11:00 01/10/21 19:52 Gabapentin 300 Mg Cap PO 300 mg BID YARIEL Administration Sodium Chloride 1,000 mls @ 75 mls/hr 01/09/21 16:30 01/10/21 19:55 Saline 0.9% IV 75 mls/hr .[id number] YARIEL Administration Magnesium Sulfate/Dextrose 1 100 mls @ 100 mls/hr 01/11/21 08:15 gm/ IV Solution IVPB 01/11/21 11:14 Q1H YARIEL Insulin Aspart 0 unit 01/10/21 12:30 01/11/21 06:30 Insulin Aspart (Novolog) 100 Unit/Ml Vial SQ 1 unit ACHS YARIEL Administration Protocol Meclizine HCl 25 mg 01/10/21 16:00 01/10/21 21:00 Meclizine 25 Mg Tab PO 25 mg TID YARIEL Administration Metoprolol Tartrate 50 mg 01/10/21 16:00 01/10/21 21:00 Metoprolol Tartrate 50 Mg Tab PO 50 mg TID YARIEL Administration Miscellaneous Information 1 each 01/11/21 08:07 Magnesium Replacement Protocol 1 Each Misc MISCELLANE DAILY PRN Per Protocol Protocol Multivitamins 1 each 01/10/21 12:00 01/10/21 12:56 Multivitamins, Thera 1 Each Tab PO 1 each DAILY@1200 YARIEL Administration Naloxone HCl 0.2 mg 01/09/21 16:24 Naloxone 0.4 Mg/Ml 1 Ml Vial IV Q2M PRN Opioid Reversal Pyridoxine HCl 50 mg 01/10/21 13:15 01/10/21 16:37 Pyridoxine 50 Mg Tab PO 50 mg DAILY YARIEL Administration Thiamine HCl 100 mg 01/10/21 12:00 01/10/21 12:56 Thiamine 100 Mg Tab PO 100 mg DAILY@1200 YARIEL Administration Intake and Output 01/10/21 01/11/21 01/11/21 22:59 06:59 14:59 Intake Total 200 600 660 Output Total 1825 1353 Balance -1626 -744 660 Intake: Intake, IV Titration 600 Amount Sodium Chloride 0.9% 1, 600 000 ml @ 75 mls/hr IV . [id number] [facility] Rx#:[id number] Oral 200 660 Output: Urine 1825 1353 Other: Voiding Method Toilet Toilet Urinal Urinal # Voids 1 1 Weight 158.5 kg 01/11/21 07:10 01/11/21 07:00
[2021-01-11] MEDS: lisinopriL 20 MG TAB PO SCH ×2 (12:39→20:07)
--- NOTE | 2021-01-11 14:26 | P.CNOR ---
History of Present Illness - [facility] Consult date: 01/11/21 Requesting physician: Lars Shah Consult reason: back pain History of present illness: Patient is a 70-year-old male presenting to the hospital status post fall. Patient says this past Sunday morning he went to turn his alarm clock off at 7:30 in the morning and fell out of bed while doing so. He states he fell onto his right side and landed on on his back and right hip. Patient also mentions he fell again when EMS arrived. Patient is complaining today mostly of low back and right-sided back pain and says he is not sure if it's coming from his hip or his back. Ortho has been consulted for patient's back pain. Patient also mentions he does have right knee pain which has been ongoing over the past several years. Patient also mentions some right ankle pain which is also been an ongoing issue. Patient denies any other trauma/injuries. Patient says he does have a history of vertigo which seems to be at its worse over the past several days. Patient does have a recent history of right knee arthroscopy for a meniscectomy. Patient denies chest pain, fever, shortness breath, nausea, vomiting, change in vision, loss of bowel/bladder control. Past Medical History Past Medical History: Atrial Fibrillation, Cancer, Diabetes Mellitus, GERD/Reflux, Hyperlipidemia, Hypertension, Memory Impairment, Osteoarthritis (OA), Pneumonia Additional Past Medical History / Comment(s): FELL 07/09/19 FX LT RADIUS, TONIO QUENT FALLS-REASON UNKNOWN. 03-10-16 FELL/FX RT FIBULA, VERTIGO , chronic headaches, BREAST CANCER History of Any Multi-Drug Resistant Organisms: CRE, MRSA Year Discovered:: 02/2017 MDRO Source:: MRSA Past Surgical History: Back Surgery, Breast Surgery, Orthopedic Surgery Additional Past Surgical History / Comment(s): Bilateral mastectomy with right sided lymp node removal due to cancer, R knee cap removed, Back surgery for herniated disc., Brain stem surgery for decompression-for dizziness, right ankle ORIF, bilateral wrist fractures SX Past Anesthesia/Blood Transfusion Reactions: No Reported Reaction Past Psychological History: No Psychological Hx Reported Smoking Status: Former smoker Past Alcohol Use History: None Reported Past Drug Use History: None Reported - Past Family History Father History Unknown: Yes Family Medical History: Congestive Heart Failure (CHF) Additional Family Medical History / Comment(s): at 68. Mother History Unknown: Yes Family Medical History: Hypertension Additional Family Medical History / Comment(s): Pulmonary hypertension. at 78. Medications and Allergies Home Medications Medication Instructions Recorded Confirmed Type metFORMIN HCL [Glucophage] 500 mg PO BID 12/17/18 01/09/21 History Metoprolol Tartrate [Lopressor] 50 mg PO TID 11/06/19 01/09/21 History Atorvastatin [Lipitor] 40 mg PO HS 06/18/20 01/09/21 History DULoxetine HCL [Cymbalta] 60 mg PO BID 06/18/20 01/09/21 History Baclofen [Lioresal] 20 mg PO BID PRN #6 tab 07/07/20 01/09/21 Rx lisinopriL 20 mg PO BID 10/11/20 01/09/21 History Butalb/APAP/Caff 50-325-40Mg 1 tab PO TID PRN #9 tab 10/22/20 01/09/21 Rx [Fioricet 50-325-40] Gabapentin [Neurontin] 300 mg PO BID #6 cap 10/22/20 01/09/21 Rx Folic Acid 1 mg PO DAILY@1200 #30 tab 12/23/20 01/09/21 Rx Magnesium Oxide [Mag-Ox] 400 mg PO TID #90 tab 12/23/20 01/09/21 Rx Meclizine [Antivert] 25 mg PO TID #90 tab 12/23/20 01/09/21 Rx Thiamine [Vitamin B-1] 100 mg PO DAILY@1200 #30 tab 12/23/20 01/09/21 Rx Aspirin EC [Ecotrin] 325 mg PO DAILY 01/09/21 01/09/21 History Multivitamins, Thera [Multivitamin 1 tab PO DAILY@1200 01/09/21 01/09/21 History (formulary)] Triamcinolone 0.1% Ointment 1 applic TOPICAL BID 01/09/21 01/09/21 History [Kenalog 0.1% Ointment] diphenhydrAMINE HCL [Benadryl] 25 mg PO BID 01/09/21 01/09/21 History Allergies Allergy/AdvReac Type Severity Reaction Status Date / Time cephalexin monohydrate Allergy Anaphylaxis Verified 01/09/21 17:40 [From Keflex] Cephalosporins Allergy Anaphylaxis Verified 01/09/21 17:40 Penicillins Allergy Anaphylaxis Verified 01/09/21 17:40 Physical Examination Inspection: Negative for any open fractures, erythema, ecchymosis, nodules. There is some moderate swelling diffusely in the right knee. Palpation: Significant TTP diffusely around the right knee. Moderate TTP to the right lumbosacral region. Mild lumbar paravertebral tenderness. Rest exam nontender to palpation Sensation: Sensation is equal, symmetric, bilaterally intact throughout Range of motion: Patient has full range of motion bilateral upper extremities and wrist flexion/extension, elbow flexion/extension, shoulder abduction/internal/external rotation. Full range of motion in left knee flexion/extension and hip flexion/extension. Limited range of motion in right leg in knee flexion/extension and hip flexion due to patient's pain Motor: 3/5 in resisted knee flexion/extension and resisted hip flexion on the right leg. Rest exam 5/5 in all major motor groups Neurovascular: Capillary refill under 3 seconds bilaterally in lower extremities. DP pulses present, intact, bilaterally 2+. Special tests - negative Norris's bilaterally; negative Homans bilaterally; negative clonus bilaterally Results - Labs Labs: Abnormal Lab Results - Last 24 Hours (Table) 01/10/21 01/10/21 01/11/21 Range/Units 17:02 20:06 06:08 RBC (4.30-5.90) m/uL Glucose (74-99) mg/dL POC Glucose (mg/dL) 169 H 162 H 132 H (75-99) mg/dL Magnesium (1.6-2.3) mg/dL 01/11/21 01/11/21 01/11/21 Range/Units 07:00 07:10 11:41 RBC 4.11 L (4.30-5.90) m/uL Glucose 118 H (74-99) mg/dL POC Glucose (mg/dL) 139 H (75-99) mg/dL Magnesium 1.4 L (1.6-2.3) mg/dL H & H 01/09/21 01/10/21 01/11/21 Range/Units 14:19 04:40 07:10 Hgb 12.9 L 13.4 13.0 (13.0-17.5) gm/dL Hct 39.6 41.7 40.1 (39.0-53.0) % Coagulation 01/09/21 Range/Units 14:19 INR 0.9 (<1.2) Result Diagrams: 01/11/21 07:10 01/11/21 07:00 Assessment and Plan Assessment: 1. Low back pain status post fall 2. Right knee pain s/p fall Plan: 1. Low back pain/right knee pain status post multiple falls - right knee x-ray has been reviewed. No urgent orthopedic surgical intervention recommended at this time. X-ray lumbar spine may be indicated at this time to evaluate for any acute injury due to multiple falls recently at home. I'll discuss findings of physical exam with my attending before proceeding. At this time we do not recommend any urgent orthopedic surgical interventions. We will continue to follow patient while in hospital. 2. Appreciate medical management; appreciate cardiology management; appreciate neuro management 3. Appreciate consult 4. Pain management - [place]; Tylenol; gabapentin 5. DVT prophylaxis - aspirin 6. PT/OT - weightbearing as tolerated with walker for assistance Time with Patient: Less than 30
[2021-01-11 15:05] VITALS: RESP 16
--- NOTE | 2021-01-11 15:10 | P.PN ---
Subjective Progress Note Date: 01/11/21 Patient is laying comfortably in the bed. Patient states "I am in tremendous amount of pain". Patient complains of headache, back and leg pain. He states "I'm always in pain". Patient states "if I can get pain under control with Dilaudid, then combination of Fioricet and [place] and Cymbalta works". Patient is watching TV comfortably. Objective - Vital Signs Vital signs: Vital Signs Temp 98.2 F 01/11/21 08:00 Pulse 67 01/11/21 08:00 Resp 18 01/11/21 08:00 BP 142/86 01/11/21 08:00 Pulse Ox 95 01/11/21 08:00 Intake & Output 01/10/21 01/11/21 01/11/21 18:59 06:59 18:59 Intake Total 795 617 2675 Output Total 700 2478 425 Balance -500 -2957 775 Weight 158.5 kg Intake: Intake, IV Titration 600 Amount Sodium Chloride 0.9% 1, 600 000 ml @ 75 mls/hr IV . [id number] [facility] Rx#:[id number] Oral 200 1200 Output: Urine 700 2478 425 Other: Voiding Method Toilet Toilet Urinal Urinal # Voids 1 - Exam Patient's mental status, speech and language functions, cranial nerves are normal. On muscle strength testing, the strength is (right/left) deltoid 5-/5, biceps 5/5, triceps 5/5, tech writer 4+/5. In the lower limbs his hip flexion is 4+/5, ankle dorsiflexion 5/5. - Labs CBC & Chem 7: 01/11/21 07:10 01/11/21 07:00 Labs: Abnormal Lab Results - Last 24 Hours (Table) 01/10/21 01/10/21 01/11/21 Range/Units 17:02 20:06 06:08 RBC (4.30-5.90) m/uL Glucose (74-99) mg/dL POC Glucose (mg/dL) 169 H 162 H 132 H (75-99) mg/dL Magnesium (1.6-2.3) mg/dL 01/11/21 01/11/21 01/11/21 Range/Units 07:00 07:10 11:41 RBC 4.11 L (4.30-5.90) m/uL Glucose 118 H (74-99) mg/dL POC Glucose (mg/dL) 139 H (75-99) mg/dL Magnesium 1.4 L (1.6-2.3) mg/dL Assessment and Plan Assessment: * History of recurrent falls, probably multifactorial, reasons as mentioned below. * Recurrent chronic vertigo, probably due to peripheral vestibular dysfunction. * History of BPPV, status post microvascular decompression right occipital region * Cephalalgia, right leg pain, status post fall. * Acute kidney injury (BUN 37/creatinine 1.4), now improving. * Mildly abnormal urinalysis, rule out UTI. * Diabetes * Paroxysmal atrial fibrillation, currently only on aspirin, not on anticoagulation. * Hypertension * Obesity Plan: * Patient has history of frequent falls in the past. His falls are probably multifactorial as mentioned above. Continue meclizine. * Patient is asking for Dilaudid for pain control. I would defer pain m anagement to primary care. * Patient is complaining of significant cephalalgia, status post fall. We will give him Fioricet which has worked for him in the past. Continue Cymbalta. * Right leg pain (involving the right knee, right ankle at the site of previous tibial fibular fracture) is of unclear etiology. Rule out radiculopathy versus local trauma from fall. Patient is admitted to having low back pain 7- 11/02. Continue gabapentin, Cymbalta. Orthopedic surgery input appreciated. * Patient has history of borderline B12 and B6 in the past. We will resume B12 and B6 replacement. * Patient had a normal CTA of head and neck performed 02/14/2020. * Patient reports of having paroxysmal atrial fibrillation in the past, currently not on any anticoagulation. Cardiology input appreciated. Patient does not have atrial fibrillation. Continue aspirin 325 mg daily. Telemetry monitoring showing sinus rhythm with first-degree AV block. Cardiology following. * Neurologically clear.
--- NOTE | 2021-01-11 15:30 | ECHOF ---
Referral Reason:LV function MEASUREMENTS -------- HEIGHT: 188.0 cm WEIGHT: 158.3 kg BP: IVSd: 1.2 cm (0.6 - 1.1) LVIDd: 4.9 cm (3.9 - 5.3) LVPWd: 1.5 cm (0.6 - 1.1) EDV(Teich): 111 ml IVSs: 2.1 cm LVIDs: 2.6 cm LVPWs: 1.7 cm %IVS Thck: 76 % ESV(Teich): 25 ml EF(Teich): 77 % %FS: 46 % SV(Teich): 85 ml RVIDd: 3.4 cm (< 3.3) Ao Diam: 3.6 cm (2.0 - 3.7) LA Diam: 4.2 cm (2.7 - 3.8) AV Cusp: 2.3 cm (1.5 - 2.6) EPSS: 1.0 cm MV E [place]: 0.89 m/s MV DecT: 257 ms MV Dec [place]: 3.5 m/s MV A [place]: 1.00 m/s MV E/A Ratio: 0.89 MV PHT: 75 ms MR Vmax: 0.94 m/s MR maxP.53 mmHg AV Vmax: 1.36 m/s AV maxP.42 mmHg TR Vmax: 1.78 m/s TR maxP.74 mmHg RAP: 5.00 mmHg RVSP: 17.74 mmHg MV EF SLOPE: 69.09 mm/s (70 - 150) MV EXCURSION: 12.58 mm (> 18.000) FINDINGS -------- This was a technically difficult study with suboptimal views. The left ventricular size is normal. There is mild concentric left ventricular hypertrophy. Overa ll left ventricular systolic function is mildly impaired with, an EF between 45 - 50 %. The right ventricle is mild to moderately enlarged. The left atrial size is normal. The right atrial size is normal. The aortic valve is trileaflet and appears structurally normal. The mitral valve is normal. There is trace mitral regurgitation. The tricuspid valve appears structurally normal. Trace tricuspid regurgitation present. Right abel tricular systolic pressure is normal at < 35 mmHg. There is no pulmonic regurgitation present. The aortic root size is normal. IVC Not well visulized. There is no pericardial effusion. Lumason used CONCLUSIONS -------- 1. The left ventricular size is normal. 2. There is mild concentric left ventricular hypertrophy. 3. Overall left ventricular systolic function is mildly impaired with, an EF between 45 - 50 %. 4. The right ventricle is mild to moderately enlarged. 5. There is trace mitral regurgitation. 6. Trace tricuspid regurgitation present. 7. There is no pericardial effusion. RATE EXAMINER: Karen Willson RDCS
[2021-01-11 17:01] LABS: Glucose,Whole Blood 134 mg/dL (75-99)
--- NOTE | 2021-01-11 19:54 | P.PN ---
Subjective Progress Note Date: 01/11/21 Principal diagnosis: Acute on Chronic vertigo Acute on chronic Cephalgia Acute on Chronic back pain Syncopal episode 70-year-old male with significant past medical history of paroxysmal atrial fibrillation, not on anticoagulation therapy, diabetes mellitus type 2, GERD/reflux, hyperlipidemia, hypertension, memory impairment, osteoarthritis, history of breast cancer, chronic vertigo, chronic cephalgia, history of brainstem surgery for decompression for chronic dizziness, history of multiple falls with fractures, and several comorbidities is admitted to the hospital for chronic falls, acute kidney injury, acute on chronic back pain, and recent fall with a dizziness episode with subsequent right-sided forearm knee and ankle discomfort. Consultation with neurology for acute on chronic vertigo; consultation with cardiology for acute on chronic dizziness; consultation with orthopedics for frequent falls with history of fractures and history history of orthopedic surgeries. 01/11/2021 Patient seen and examined at bedside. Patient resting in bed with no apparent acute signs of distress. Patient endorses cephalgia, dizziness, back discomfort, weakness, and fatigue. Patient denies fever, chills, shortness of breath, chest pain, palpitations, abdominal pain, nausea, vomiting or diarrhea at this time. Patient maintain on analgesics orally for acute on chronic ceph algia, and acute on chronic back discomfort. Review of diagnostic labs CBC, unremarkable; CMP, elevated glucose 118 and magnesium 1.4 magnesium replacement protocol initiated. Objective - Vital Signs Vital signs: Vital Signs Temp 97.9 F 01/11/21 16:00 Pulse 68 01/11/21 16:00 Resp 16 01/11/21 16:00 BP 138/81 01/11/21 16:00 Pulse Ox 94 L 01/11/21 16:00 Intake & Output 01/11/21 01/11/21 01/12/21 06:59 18:59 06:59 Intake Total 600 1620 Output Total 9298 5475 Balance -1878 855 Weight 158.5 kg Intake: Intake, IV Titration 600 Amount Sodium Chloride 0.9% 1, 600 000 ml @ 75 mls/hr IV . [id number] [facility] Rx#:[id number] Oral 1620 Output: Urine 2478 2475 Other: Voiding Method Toilet Toilet Urinal Urinal # Voids 1 - Constitutional General appearance: Present: morbidly obese - EENT Eyes: Present: EOMI, PERRLA ENT: Present: hard of hearing Ears: bilateral: normal - Neck Neck: Present: normal ROM Carotids: bilateral: upstroke normal Thyroid: bilateral: normal size - Respiratory Respiratory: bilateral: diminished (Anterior and posterior lung bishop) - Cardiovascular Details: Normal sinus rhythm Heart rate: 74 Rhythm: regular Heart sounds: normal: S1, S2 - Peripheral pulses dorsalis pedis Peripheral Pulses: bilateral: Normal radial pulse Peripheral Pulses: bilateral: Normal - Gastrointestinal General gastrointestinal: Present: normal bowel sounds, soft - Integumentary Integumentary: Present: normal turgor - Neurologic Neurologic: Present: CNII-XII intact - Musculoskeletal Musculoskeletal: Present: generalized weakness - Psychiatric Psychiatric: Present: A&O x's 3 - Allied health notes Allied health notes reviewed: nursing - Labs CBC & Chem 7: 01/11/21 07:10 01/11/21 07:00 Labs: Abnormal Lab Results - Last 24 Hours (Table) 01/10/21 01/11/21 01/11/21 Range/Units 20:06 06:08 07:00 RBC (4.30-5.90) m/uL Glucose 118 H (74-99) mg/dL POC Glucose (mg/dL) 162 H 132 H (75-99) mg/dL Magnesium 1.4 L (1.6-2.3) mg/dL 01/11/21 01/11/21 01/11/21 Range/Units 07:10 11:41 16:59 RBC 4.11 L (4.30-5.90) m/uL Glucose (74-99) mg/dL POC Glucose (mg/dL) 139 H 134 H (75-99) mg/dL Magnesium (1.6-2.3) mg/dL Assessment and Plan Assessment: Acute on Chronic vertigo Acute on chronic Cephalgia Acute on Chronic back pain Syncopal episode Dizziness paroxysmal atrial fibrillation, not on anticoagulation therapy diabetes mellitus type 2 GERD/reflux hyperlipidemia hypertension memory impairment osteoarthritis history of breast cancer chronic vertigo chronic cephalgia history of brainstem surgery for decompression for chronic dizziness history of multiple falls with fractures Obesity with a BMI of 42.5 Full code Plan: Acute kidney injury improving with IV hydration, avoid nephrotoxic drugs Syncopal episode, consultation with neurology and cardiology for recommendations Recurrent chronic vertigo Status post fall with right shoulder right humerus right ulnar radial right knee and right tib-fib pain, continue oral analgesics; consultation with orthopedics for recommendations Hypo-magnesium, magnesium replacement protocol Cephalgia CT of the brain mild atrophy, consultation with neurology for r ecommendations Consultation with physical therapy occupational therapy for possible rehab or placement Continue home medications Continue medical management DVT/GI prophylaxis Further recommendations come based on patient's clinical condition Time with Patient: Greater than 30
[2021-01-11 20:03] LABS: Glucose,Whole Blood 131 mg/dL (75-99)
[2021-01-11] MEDS: ATORVASTATIN 40 MG TAB PO SCH (20:06)
--- NOTE | 2021-01-11 20:38 | P.CNOR ---
History of Present Illness - [facility] Consult date: 01/11/21 Consult reason: low back pain History of present illness: Pt presents with low back pain and dizziness with multiple falls. He states some RLE pain and right knee pain. He did have a scope of this knee several m onths ago and was doing well from it. He states no bowel bladder issues. States no perineal numbnes/tingling. Review of Systems Pt unreliable for ROS currently due to mental status. Past Medical History Past Medical History: Atrial Fibrillation, Cancer, Diabetes Mellitus, GERD/Reflux, Hyperlipidemia, Hypertension, Memory Impairment, Osteoarthritis (OA), Pneumonia Additional Past Medical History / Comment(s): FELL 07/09/19 FX LT RADIUS, FREQUENT FALLS-REASON UNKNOWN. 03-10-16 FELL/FX RT FIBULA, VERTIGO , chronic headaches, BREAST CANCER History of Any Multi-Drug Resistant Organisms: CRE, MRSA Year Discovered:: 02/2017 MDRO Source:: MRSA Past Surgical History: Back Surgery, Breast Surgery, Orthopedic Surgery Additional Past Surgical History / Comment(s): Bilateral mastectomy with right sided lymp node removal due to cancer, R knee cap removed, Back surgery for herniated disc., Brain stem surgery for decompression-for dizziness, right ankle ORIF, bilateral wrist fractures SX Past Anesthesia/Blood Transfusion Reactions: No Reported Reaction Past Psychological History: No Psychological Hx Reported Smoking Status: Former smoker Past Alcohol Use History: None Reported Past Drug Use History: None Reported - Past Family History Father History Unknown: Yes Family Medical History: Congestive Heart Failure (CHF) Additional Family Medical History / Comment(s): at 68. Mother History Unknown: Yes Family Medical History: Hypertension Additional Family Medical History / Comment(s): Pulmonary hypertension. at 78. Medications and Allergies Home Medications Medication Instructions Recorded Confirmed Type metFORMIN HCL [Glucophage] 500 mg PO BID 12/17/18 01/09/21 History Metoprolol Tartrate [Lopressor] 50 mg PO TID 11/06/19 01/09/21 History Atorvastatin [Lipitor] 40 mg PO HS 06/18/20 01/09/21 History DULoxetine HCL [Cymbalta] 60 mg PO BID 06/18/20 01/09/21 History Baclofen [Lioresal] 20 mg PO BID PRN #6 tab 07/07/20 01/09/21 Rx lisinopriL 20 mg PO BID 10/11/20 01/09/21 History Butalb/APAP/Caff 50-325-40Mg 1 tab PO TID PRN #9 tab 10/22/20 01/09/21 Rx [Fioricet 50-325-40] Gabapentin [Neurontin] 300 mg PO BID #6 cap 10/22/20 01/09/21 Rx Folic Acid 1 mg PO DAILY@1200 #30 tab 12/23/20 01/09/21 Rx Magnesium Oxide [Mag-Ox] 400 mg PO TID #90 tab 12/23/20 01/09/21 Rx Meclizine [Antivert] 25 mg PO TID #90 tab 12/23/20 01/09/21 Rx Thiamine [Vitamin B-1] 100 mg PO DAILY@1200 #30 tab 12/23/20 01/09/21 Rx Aspirin EC [Ecotrin] 325 mg PO DAILY 01/09/21 01/09/21 History Multivitamins, Thera [Multivitamin 1 tab PO DAILY@1200 01/09/21 01/09/21 History (formulary)] Triamcinolone 0.1% Ointment 1 applic TOPICAL BID 01/09/21 01/09/21 History [Kenalog 0.1% Ointment] diphenhydrAMINE HCL [Benadryl] 25 mg PO BID 01/09/21 01/09/21 History Allergies Allergy/AdvReac Type Severity Reaction Status Date / Time cephalexin monohydrate Allergy Anaphylaxis Verified 01/09/21 17:40 [From Keflex] Cephalosporins Allergy Anaphylaxis Verified 01/09/21 17:40 Penicillins Allergy Anaphylaxis Verified 01/09/21 17:40 Physical Examination Osteopathic Statement: *. No significant issues noted on an osteopathic structural exam other than those noted in the History and Physical/Consult. Difficult exam due to his mental status. 4/5 DF/PF/EHL/FHL b/l secondary to his medical state, no focal deficits. 4/5 all major muscle groups UE b/l SILT L2-S1 Compartments soft compressive 2/4 distal pulses all 4 ext Mild TTP about the low back no TTP of the R knee at this time. Results Ankle films show previous lateral mal ORIF in good condition, no hardware issues. Good alignment, good healing. Rt knee films show chronic changes without interval changes, no fracture, good alignment. Right elbow and forearm films do not show any acute fracture or dislocation good alignment Right hip films show chronic changes with osteophytic changes no fracture Lumbar films pending - Labs Labs: Abnormal Lab Results - Last 24 Hours (Table) 01/10/21 01/10/21 01/11/21 Range/Units 17:02 20:06 06:08 RBC (4.30-5.90) m/uL Glucose (74-99) mg/dL POC Glucose (mg/dL) 169 H 162 H 132 H (75-99) mg/dL Magnesium (1.6-2.3) mg/dL 01/11/21 01/11/21 Range/Units 07:00 07:10 RBC 4.11 L (4.30-5.90) m/uL Glucose 118 H (74-99) mg/dL POC Glucose (mg/dL) (75-99) mg/dL Magnesium 1.4 L (1.6-2.3) mg/dL H & H 01/09/21 01/10/21 01/11/21 Range/Units 14:19 04:40 07:10 Hgb 12.9 L 13.4 13.0 (13.0-17.5) gm/dL Hct 39.6 41.7 40.1 (39.0-53.0) % Coagulation 01/09/21 Range/Units 14:19 INR 0.9 (<1.2) Result Diagrams: 01/11/21 07:10 01/11/21 07:00 Assessment and Plan Assessment: 70-year-old male status post multiple falls from standing with dizziness vertigo low back pain and lower extremity weakness factorial Multiple medical comorbidities Plan: No acute orthopedic surgical intervention warranted Continue with conservative management PTOT pain control Medical management
[2021-01-11] MEDS ORDERED: TEMAZEPAM 15 MG CAP PO SCH (21:00)
[2021-01-12] MEDS: HYDROcodone/APAP 5-325MG 1 EACH TAB PO PRN ×2 (03:09→12:03)
[2021-01-12] MEDS: ACETAMINOPHEN TAB 325 MG TAB PO PRN (03:15)
[2021-01-12 06:19] LABS: Glucose,Whole Blood 123 mg/dL (75-99)
[2021-01-12] MEDS: INSULIN ASPART (NovoLOG) 100 UNIT/ML VIAL SQ SCH ×3 (06:33→16:53)
--- NOTE | 2021-01-12 08:00 | P.PN ---
Progress Note - Text Progress Note Date: 01/12/21 [facility] Progress Note SUBJECTIVE: Patient seen and examined no issues overnight still complains of back pain leg pain seems better no other issues overnight he is eating breakfast OBJECTIVE: General: AOX3, NAD Motor Exam: RUE: 07/28 SA, EF, EE, WF, WE, Intrinsic, Database Analyst LUE: 07/28 SA, EF, EE, WF, WE, Intrinsic, Database Analyst RLE: 06/28 HF, KE, KF, DF, PF, EHL, FHL LLE: /5 HF, KE, KF, DF, PF, EHL, FH Reflexes: 2/4 in UE and LE b/l except 1/4 right patella SILT C5-T1 and L2-S1 Dermatomal deficit: None +distal pulses palpable Negative hoffmans b/l Negative babinski b/l No clonus Meds and labs reviewed ASSESSMENT: 70-year-old male status post multiple falls from standing with multiple medical issues and multifactorial pain issues No acute fractures PLAN: 1. No acute orthopedic surgical intervention warranted 2. Recommend consult pain management 3. PT/OT, OK for up and about. 4. TEDs, SCDs, Early ambulation
[2021-01-12] MEDS: ACETAMINOPHEN IV (For NPO) 1,000 MG in EMPTY BAG 1 BAG IVPB SCH ×2 (08:20→12:02)
[2021-01-12] MEDS: GABAPENTIN 300 MG CAP PO SCH (08:21)
[2021-01-12] MEDS: THIAMINE 100 MG TAB PO SCH (08:21)
[2021-01-12] MEDS: MULTIVITAMINS, THERA 1 EACH TAB PO SCH (08:21)
[2021-01-12] MEDS: lisinopriL 20 MG TAB PO SCH (08:21)
[2021-01-12] MEDS: PYRIDOXINE 50 MG TAB PO SCH (08:21)
[2021-01-12] MEDS: METOPROLOL TARTRATE 50 MG TAB PO SCH ×2 (08:21→16:53)
[2021-01-12] MEDS: ASPIRIN 325 MG TAB PO SCH (08:22)
[2021-01-12] MEDS: FOLIC ACID 1 MG TAB PO SCH (08:22)
[2021-01-12] MEDS: MECLIZINE 25 MG TAB PO SCH ×2 (08:22→16:53)
[2021-01-12] MEDS: DULoxetine HCL 60 MG CAPSULE.DR PO SCH (08:22)
[2021-01-12] MEDS: SODIUM CHLORIDE 0.9% 1,000 ML IV SCH (08:28)
[2021-01-12 08:30] VITALS: TEMP 97.5
[2021-01-12] MEDS ORDERED: MELOXICAM 7.5 MG TAB PO SCH (09:00)
[2021-01-12 10:24] LABS: Basophils % (A) 0 %; Eosinophils # (A) 0.5 k/uL (0-0.7); Eosinophils % (A) 6 %; HGB 13.1 gm/dL (13.0-17.5); Lymphocytes # (A) 2.3 k/uL (1.0-4.8); Lymphocytes % (A) 29 %; MCH 30.9 pg (25.0-35.0); MCHC 31.3 g/dL (31.0-37.0); MCV 98.8 fL (80.0-100.0); Mean Platelet Volume 7.7; Monocytes # (A) 0.6 k/uL (0-1.0); Monocytes % (A) 7 %; Neutrophils # (A) 4.4 k/uL (1.3-7.7); Neutrophils % (A) 56 %; Platelet Count 190 k/uL (150-450); RBC 4.25 m/uL (4.30-5.90); RDW 13.4 % (11.5-15.5); WBC 7.9 k/uL (3.8-10.6)
[2021-01-12 10:44] LABS: Calcium 9.5 mg/dL (8.4-10.2); Magnesium 1.5 mg/dL (1.6-2.3); Potassium 4.5 mmol/L (3.5-5.1)
--- NOTE | 2021-01-12 10:52 | P.PN ---
Subjective This is a pleasant 70-year-old male past medical history significant for diabetes mellitus, hypertension, dyslipidemia, vertigo, patient states he has had 3 brain stem corrective surgeries (one in 2017 in [place], and 2 in [place] in 2018, multiple falls, and irregular heartbeat. He does not have a-fib as a diagnosis but states he has always been told his heart rate is irregular. He has been advised in the past to follow with a supervisor cook house for outpatient heart monitoring however has never done that. He is currently in the hospital secondary to multiple falls at home. We have been asked to see him in consultation secondary to dizziness. Patient states he fell out of bed while he was trying to shut off the alarm clock around 7:30am, he struggled on the floor but was able to get up. He went to the bathroom and sat on the stool, felt dizzy and fell again, hitting his head. Patient states that he may have lost consciousness, unknown time. He was able to crawl to the living room. His grandson was able to help him up. EMS was called and patient was brought in the emergency department. He denies history of [place], stroke, coronary artery disease. When EMS arrived, patient was in the chair, he was confused, alert oriented x 2, unable to answer current year and his year, vital signs were stable, EKG revealed sinus rhythm with sinus arrhythmia. DIAGNOSTICS: EKG sinus rhythm, heart rate 61,sinus arrhythmia, no significant ST-T wave abnormalities. Most recent echocardiogram obtained in June 2019 EF 55-60%, RV is moderately enlarged, mild tricuspid regurgitation. Most recent stress test in 2016 was a Lexiscan stress test was negative for reversible cardiac ischemia. 01/12/21 Patient seen and examined at bedside, no acute distress. He denies any chest pain or shortness of breath. Denies any dizziness. His echocardiogram revealed an EF of 4550 percent, RV is mild to moderately enlarged, trace mitral r egurgitation, trace tricuspid regurgitation. Laboratory data review WBC 7.9, hemoglobin 13.1, platelets 190, sodium 138, potassium 4.5, BUN 20, serum creatinine 1.0, magnesium 1.5. He's currently maintained on aspirin 325 mg daily, atorvastatin 40 mg nightly, lisinopril 20 mg twice a day, metoprolol tartrate 50 mg 3 times a day. PHYSICAL EXAMINATION Blood pressure 157/84, heart rate 64, afebrile, maintaining a saturation 95% on room air. CONSTITUTIONAL: No apparent distress. Obese. HEENT: Neck Supple. No JVD. No carotid bruit. CHEST EXAMINATION: Lungs are clear to auscultation. No chest wall tenderness is noted on palpation or with deep breathing. HEART EXAMINATION: Irregular rate and rhythm. S1, S2 heard. No murmurs, gallops or rub. ABDOMEN: Soft, nontender. Positive bowel sounds. EXTREMITIES: 2+ peripheral pulses, no lower extremity edema and no calf tenderness. Left upper extremity sling and caste in place. NEUROLOGIC EXAMINATION: Patient is awake, alert and oriented x3. ASSESSMENT Dizziness suggestive of vertigo with history of vertigo, patient states his symptoms are what he experiences with vertigo, No evidence of melita or tachy- arrhythmia on telemetry Vertigo Fall Hypertension Dyslipidemia Diabetes mellitus Obesity, BMI 38 Cardiomyopathy, unclear if ischemic vs non-ischemic mildly reduced EF PLAN -Symptoms likely related to vertigo. Telemetry reviewed with no evidence of atrial fibrillation, melita or tachy-arrhythmia -From cardiology perspective no further testing warranted at this time. -Replace magnesium per protocol -Patient may benefit from outpatient heart monitor -Patient can follow up outpatient in the office. -Thank you kindly for this consultation. Nurse Practitioner note has been reviewed, I agree with a documented findings and plan of care. Patient was seen and examined. Objective - Vital Signs Vital signs: Vital Signs Temp 97.5 F L 01/12/21 08:00 Pulse 64 01/12/21 08:00 Resp 16 01/12/21 08:00 BP 157/84 01/12/21 08:00 Pulse Ox 95 01/12/21 08:00 Intake & Output 01/11/21 01/12/21 01/12/21 18:59 06:59 18:59 Intake Total 1620 240 Output Total 0683 1300 033 Balance -577 -6118 -405 Weight 155.5 kg Intake: Oral 1620 240 Output: Urine 2488 1300 904 Other: Voiding Method Toilet Toilet Urinal Urinal - Labs CBC & Chem 7: 01/12/21 09:26 01/12/21 09:26 Labs: Abnormal Lab Results - Last 24 Hours (Table) 01/11/21 01/11/21 01/11/21 Range/Units 11:41 16:59 19:58 RBC (4.30-5.90) m/uL Glucose (74-99) mg/dL POC Glucose (mg/dL) 139 H 134 H 131 H (75-99) mg/dL Magnesium (1.6-2.3) mg/dL 01/12/21 01/12/21 01/12/21 Range/Units 06:18 09:26 09:26 RBC 4.25 L (4.30-5.90) m/uL Glucose 164 H (74-99) mg/dL POC Glucose (mg/dL) 123 H (75-99) mg/dL Magnesium 1.5 L (1.6-2.3) mg/dL
[2021-01-12 11:41] LABS: Glucose,Whole Blood 152 mg/dL (75-99)
--- NOTE | 2021-01-12 14:12 | XR ---
Lumbar spine HISTORY: Trauma and pain Four views of the lumbar spine submitted and correlated to prior exam 11/06/2019 There is multilevel spondylosis. Lumbar vertebral bodies show stable height, alignment, bone minerali zation is reduced. Sclerosis is present in the posterior elements of the lumbar spine consistent with facet arthropathy. Disc heights are stable and within normal limits. Overlying artifacts are present . IMPRESSION: Stable findings. No acute fracture or subluxation.
--- NOTE | 2021-01-12 14:59 | P.PN ---
Subjective Progress Note Date: 01/12/21 Patient is laying comfortably in the bed. Patient states "I am not feeling well, in a lot of pain, a lot of vertigo". Patient complains of right-sided headache, right shoulder and right knee pain. Patient states "if I can get pain under control with Dilaudid, then combination of Fioricet and Stamps and Cymbalta would works". Patient is watching TV comfortably. Objective - Vital Signs Vital signs: Vital Signs Temp 97.5 F L 01/12/21 08:00 Pulse 60 01/12/21 12:00 Resp 16 01/12/21 12:00 BP 146/86 01/12/21 12:00 Pulse Ox 94 L 01/12/21 12:00 Intake & Output 01/11/21 01/12/21 01/12/21 18:59 06:59 18:59 Intake Total 1620 480 Output Total 2475 1300 475 Balance -855 -1300 5 Weight 155.5 kg Intake: Oral 1620 480 Output: Urine 2475 1300 475 Other: Voiding Method Toilet Toilet Toilet Urinal Urinal Urinal - Exam Patient's mental status, speech and language functions, cranial nerves are normal. On muscle strength testing, the strength is (right/left) deltoid 5-/5, biceps 5/5, triceps 5/5, sr. pricing analyst 4+/5. In the lower limbs his hip flexion is 4+/5, ankle dorsiflexion 5/5. - Labs CBC & Chem 7: 01/12/21 09:26 01/12/21 09:26 Labs: Abnormal Lab Results - Last 24 Hours (Table) 01/11/21 01/11/21 01/12/21 Range/Units 16:59 19:58 06:18 RBC (4.30-5.90) m/uL Glucose (74-99) mg/dL POC Glucose (mg/dL) 134 H 131 H 123 H (75-99) mg/dL Magnesium (1.6-2.3) mg/dL 01/12/21 01/12/21 01/12/21 Range/Units 09:26 09:26 11:40 RBC 4.25 L (4.30-5.90) m/uL Glucose 164 H (74-99) mg/dL POC Glucose (mg/dL) 152 H (75-99) mg/dL Magnesium 1.5 L (1.6-2.3) mg/dL Assessment and Plan Assessment: * History of recurrent falls, probably multifactorial, reasons as mentioned below. * Recurrent chronic vertigo, probably due to peripheral vestibular dysfunction. * History of BPPV, status post microvascular decompression right occipital region * Cephalalgia, right leg pain, status post fall. * Acute kidney injury (BUN 37/creatinine 1.4), now improving. * Mildly abnormal urinalysis, rule out UTI. * Diabetes * Paroxysmal atrial fibrillation, currently only on aspirin, not on anticoagulation. * Hypertension * Obesity Plan: * Patient has chronic pain issues. Suggest consultation with pain specialist. * Patient has history of frequent falls in the past. His falls are probably multifactorial as mentioned above. Continue meclizine. * Patient is asking for Dilaudid for pain control. I would defer pain management to primary care. * Patient is complaining of significant cephalalgia, status post fall. We will give him Fioricet which has worked for him in the past. Continue Cymbalta. * Right leg pain (involving the right knee, right ankle at the site of previous tibial fibular fracture) is of unclear etiology. Rule out radiculopathy versus local trauma from fall. Continue gabapentin, Cymbalta. May increase the dose of gabapentin if needed. Orthopedic surgery input appreciated. * Patient has history of borderline B12 and B6 in the past. We will resume B12 and B6 replacement. * Patient had a normal CTA of head and neck performed 02/14/2020. * Patient reports of having paroxysmal atrial fibrillation in the past, currently not on any anticoagulation. Cardiology input appreciated. Patient does not have atrial fibrillation. Continue aspirin 325 mg daily. Telemetry monitoring showing sinus rhythm with first-degree AV block. Cardiology following. * Neurologically clear.
[2021-01-12] MEDS ORDERED: MAGNESIUM OXIDE 400 MG TAB PO SCH (16:00)
[2021-01-12 16:53] LABS: Glucose,Whole Blood 116 mg/dL (75-99)
[2021-01-12 17:50] VITALS: BP 146/73; PULSE 69
--- NOTE | 2021-01-12 18:22 | P.DS ---
Providers Date of admission: 01/09/21 16:24 Expected date of discharge: 01/12/21 Attending physician: Damon Rodriguez Consults: 01/10/21 10:03 Consult Physician Urgent Consulting Provider: Fang Ryan Consult Reason/Comments: Multiple falls and possible worsening right-sided weakness Do you want consulting provider notified?: Yes 01/10/21 19:45 Consult Physician Urgent Consulting Provider: Emir Anderson Consult Reason/Comments: BACK PAIN Do you want consulting provider notified?: Yes 01/10/21 19:48 Consult Physician Urgent Consulting Provider: Jose Panda Consult Reason/Comments: DIZZINESS Do you want consulting provider notified?: Yes Primary care physician: Damon Rodriguez Hospital Course: 70-year-old male with significant past medical history of paroxysmal atrial fibrillation, not on anticoagulation therapy, diabetes mellitus type 2, GERD/reflux, hyperlipidemia, hypertension, memory impairment, osteoarthritis, history of breast cancer, chronic vertigo, chronic cephalgia, history of brainstem surgery for decompression for chronic dizziness, history of multiple falls with fractures, and several comorbidities is admitted to the hospital for chronic falls, acute kidney injury, acute on chronic back pain, and recent fall with a dizziness episode with subsequent right-sided forearm knee and ankle discomfort. Consultation with neurology for acute on chronic vertigo; consultation with cardiology for acute on chronic dizziness; consultation with orthopedics for frequent falls with history of fractures and history history of orthopedic surgeries. Patient was evaluated by neurology, no interventions and medication adjustment recommended. Patient was evaluated by cardiology echocardiogram obtained, overall left ventricle systolic function is mildly impaired with, and EF between 40-45%, see dictation from cardiology. Recommendations from cardiology for an event monitor, ordered and placed on patient before discharge; will follow-up with cardiology in 1-2 weeks. Patient was evaluated by orthopedics, CT of lumbar spine was obtained, stable findings, no acute fracture or subluxation. Recommendations from orthopedics for patient to follow-up with pain management regarding chronic back pain. Patient had significant diagnostic testing throughout hospital stay with multiple consults, patient remained stable throughout hospital stay with no acute events. Patient will be discharged in stable condition with guarded prognosis due to multiple comorbidities. Assessment: Acute on Chronic vertigo Acute on chronic Cephalgia Acute on Chronic back pain Syncopal episode Dizziness paroxysmal atrial fibrillation, not on anticoagulation therapy diabetes mellitus type 2 GERD/reflux hyperlipidemia hypertension memory impairment osteoarthritis history of breast cancer chronic vertigo chronic cephalgia history of brainstem surgery for decompression for chronic dizziness history of multiple falls with fractures Obesity with a BMI of 42.5 Full code Final diagnosis Chronic vertigo, evaluated by neurology patient to follow-up with [facility] neurosurgeon in January Chronic cephalgia, evaluated by neurology, continue oral analgesics and recommend a follow-up with neurosurgeon in [facility] in January Syncopal episode, acute coronary syndrome ruled out, neurological event ruled out, likely a vagal vagal response Acute kidney injury resolved with IV hydration normalize kidney function Chronic back pain, continue analgesics, recommended pain management referral Health Concerns: Multiple comorbidities Complexity of medical treatment plan Poor medical compliance Pertinent Studies: Hip x-ray: No acute fracture noted Chest x-ray: No acute cardiopulmonary processes noted CT of the head: mild atrophy noted,no acute intercranial abnormalities noted Right ankle x-ray: Large calcaneal spurs Right elbow x-ray: Bilateral epicondyle spurs Right forearm x-ray: No acute fracture or dislocation noted X-ray right knee: Moderate size patellar bursa fluid collection Echocardiogram: Left ventricular systolic function is mildly impaired with the EF between 40-45%, see dictation from cardiology X-ray lumbar spine: Stable findings, no acute fracture or subluxation Procedures: No procedures performed during hospital stay Patient Condition at Discharge: Fair Plan - Discharge Summary Discharge Rx Participant: Yes New Discharge Prescriptions: New Pyridoxine [Vitamin B-6] 50 mg PO DAILY #30 tab Meloxicam [Mobic] 15 mg PO DAILY #14 tab Continue metFORMIN HCL [Glucophage] 500 mg PO BID Metoprolol Tartrate [Lopressor] 50 mg PO TID DULoxetine HCL [Cymbalta] 60 mg PO BID Baclofen [Lioresal] 20 mg PO BID PRN #6 tab PRN Reason: Muscle Spasm Folic Acid 1 mg PO DAILY@1200 #30 tab Magnesium Oxide [Mag-Ox] 400 mg PO TID #90 tab Thiamine [Vitamin B-1] 100 mg PO DAILY@1200 #30 tab Aspirin EC [Ecotrin] 325 mg PO DAILY Atorvastatin [Lipitor] 40 mg PO HS lisinopriL 20 mg PO BID Butalb/APAP/Caff 50-325-40Mg [Fioricet 50-325-40] 1 tab PO TID PRN #9 tab PRN Reason: Migraine Headache Gabapentin [Neurontin] 300 mg PO BID #6 cap Meclizine [Antivert] 25 mg PO TID #90 tab diphenhydrAMINE HCL [Benadryl] 25 mg PO BID Triamcinolone 0.1% Ointment [Kenalog 0.1% Ointment] 1 applic TOPICAL BID Multivitamins, Thera [Multivitamin (formulary)] 1 tab PO DAILY@1200 Discharge Medication List metFORMIN HCL [Glucophage] 500 mg PO BID 12/17/18 [History] Metoprolol Tartrate [Lopressor] 50 mg PO TID 11/06/19 [History] Atorvastatin [Lipitor] 40 mg PO HS 06/18/20 [History] DULoxetine HCL [Cymbalta] 60 mg PO BID 06/18/20 [History] Baclofen [Lioresal] 20 mg PO BID PRN #6 tab 07/07/20 [Rx] lisinopriL 20 mg PO BID 10/11/20 [History] Butalb/APAP/Caff 50-325-40Mg [Fioricet 50-325-40] 1 tab PO TID PRN #9 tab 10/22/20 [Rx] Gabapentin [Neurontin] 300 mg PO BID #6 cap 10/22/20 [Rx] Folic Acid 1 mg PO DAILY@1200 #30 tab 12/23/20 [Rx] Magnesium Oxide [Mag-Ox] 400 mg PO TID #90 tab 12/23/20 [Rx] Meclizine [Antivert] 25 mg PO TID #90 tab 12/23/20 [Rx] Thiamine [Vitamin B-1] 100 mg PO DAILY@1200 #30 tab 12/23/20 [Rx] Aspirin EC [Ecotrin] 325 mg PO DAILY 01/09/21 [History] Multivitamins, Thera [Multivitamin (formulary)] 1 tab PO DAILY@1200 01/09/21 [History] Triamcinolone 0.1% Ointment [Kenalog 0.1% Ointment] 1 applic TOPICAL BID [History] diphenhydrAMINE HCL [Benadryl] 25 mg PO BID 01/09/21 [History] Meloxicam [Mobic] 15 mg PO DAILY #14 tab 01/12/21 [Rx] Pyridoxine [Vitamin B-6] 50 mg PO DAILY #30 tab 01/12/21 [Rx] Follow up Appointment(s)/Referral(s): Damon Rodriguez MD [Primary Care Provider] - 01/14/21 3:00 pm Raymond Joseph MD [STAFF PHYSICIAN] - 01/19/21 8:45 am [facility], [NON-STAFF] - Ambulatory/Diagnostic Orders: Complete Blood Count w/diff [LAB.AMB] Time Frame: 3 Days, Location: None Selected Comprehensive Metabolic Panel [LAB.AMB] Time Frame: 3 Days, Location: None Selected Magnesium [LAB.AMB] Time Frame: 3 Days, Location: None Selected Patient Instructions/Handouts: Vertigo (DC), Fall Prevention for Older Adults (DC), Acute Headache (DC), Near Syncope (DC), Fall Prevention (DC) Discharge Disposition: HOME WITH HOME HEALTH SERVICES
== END 2021-01-12 17:53 | disposition home health service (06) ==
LOC: EC 12:15 → 3SCARD 16:24
PROVIDERS: ADMIT Family Medicine; ATTEND Family Medicine
DX: H81.10 Benign paroxysmal vertigo, unspecified ear (principal); R51.9 Headache, unspecified; Z20.822 Contact with and (suspected) exposure to COVID-19; I95.9 Hypotension, unspecified; M47.816 Spondylosis without myelopathy or radiculopathy, lumbar region; R55 Syncope and collapse; I48.20 Chronic atrial fibrillation, unspecified; K21.9 Gastro-esophageal reflux disease without esophagitis; E78.5 Hyperlipidemia, unspecified; I10 Essential (primary) hypertension; N17.9 Acute kidney failure, unspecified; R29.6 Repeated falls; W06.XXXA Fall from bed, initial encounter; M79.631 Pain in right forearm; M25.551 Pain in right hip; M25.561 Pain in right knee; M25.571 Pain in right ankle and joints of right foot; R82.90 Unspecified abnormal findings in urine; E11.9 Type 2 diabetes mellitus without complications; M77.8 Other enthesopathies, not elsewhere classified; M77.30 Calcaneal spur, unspecified foot; E86.0 Dehydration; Y92.009 Unspecified place in unspecified non-institutional (private) residence as the place of occurrence of the external cause; Z79.82 Long term (current) use of aspirin; E66.9 Obesity, unspecified; Z68.41 Body mass index [BMI] 40.0-44.9, adult; Z79.899 Other long term (current) drug therapy; Z79.84 Long term (current) use of oral hypoglycemic drugs; Z88.0 Allergy status to penicillin; Z88.1 Allergy status to other antibiotic agents; Z85.3 Personal history of malignant neoplasm of breast; Z87.01 Personal history of pneumonia (recurrent); Z86.14 Personal history of Methicillin resistant Staphylococcus aureus infection; Z90.13 Acquired absence of bilateral breasts and nipples; Z87.891 Personal history of nicotine dependence; Z91.81 History of falling; Z16.24 Resistance to multiple antibiotics; Z96.661 Presence of right artificial ankle joint; Z98.890 Other specified postprocedural states; Z87.81 Personal history of (healed) traumatic fracture; Z82.49 Family history of ischemic heart disease and other diseases of the circulatory system
CPT/HCPCS: 96361 ×4; 96365; 96366; 96372; 96376; 96375; 99285; 36415; 93005; 93270; 97530; 97162; 97166; 80053 ×2; 80048 ×2; 83735 ×3; 84484; 85025 ×4; 85610; 85730; 81001; 87635; 72100; 73502; 73070; 73090; 73560; 73600; 71046; 70450; G0378 ×4; C8929; J3420; J3475; J0131; J1170; Q9950; 93306

== ENCOUNTER 2021-01-14 21:37 | Inpatient (IN) | payer MEDICARE ==
--- NOTE | 2021-01-14 21:48 | ED ---
Altered Mental Status HPI - General Chief Complaint: Altered Mental Status Stated Complaint: Altered mental status Time Seen by Provider: 01/14/21 21:40 Source: EMS, RN notes reviewed, old records reviewed Mode of arrival: EMS Limitations: altered mental status - History of Present Illness Initial Comments: This is a 70-year-old male to the ER for evaluation today. Patient is unresponsive here in the emergency department. In coming in for altered mental status. Patient apparently had a head injury 2 days ago. Otherwise patient has no new complaints EMS has no new complaints and history is obtained from EMS and patient transfer record MD Complaint: altered mental status, confusion, decreased responsiveness, weakness -: hour(s) Severity: mild Consistency of Symptoms: getting worse, constant Context: history of similar presentation Associated Symptoms: denies other symptoms - Related Data Home Medications Medication Instructions Recorded Confirmed metFORMIN HCL [Glucophage] 500 mg PO BID 12/17/18 01/14/21 Metoprolol Tartrate [Lopressor] 50 mg PO TID 11/06/19 01/14/21 Atorvastatin [Lipitor] 40 mg PO HS 06/18/20 01/14/21 DULoxetine HCL [Cymbalta] 60 mg PO BID 06/18/20 01/14/21 lisinopriL 20 mg PO BID 10/11/20 01/14/21 Aspirin EC [Ecotrin] 325 mg PO DAILY 01/09/21 01/14/21 Multivitamins, Thera [Multivitamin 1 tab PO DAILY@1200 01/09/21 01/14/21 (formulary)] Triamcinolone 0.1% Ointment 1 applic TOPICAL BID 01/09/21 01/14/21 [Kenalog 0.1% Ointment] diphenhydrAMINE HCL [Benadryl] 25 mg PO BID 01/09/21 01/14/21 Previous Rx's Medication Instructions Recorded Baclofen [Lioresal] 20 mg PO BID PRN #6 tab 07/07/20 Butalb/APAP/Caff 50-325-40Mg 1 tab PO TID PRN #9 tab 10/22/20 [Fioricet 50-325-40] Gabapentin [Neurontin] 300 mg PO BID #6 cap 10/22/20 Folic Acid 1 mg PO DAILY@1200 #30 tab 12/23/20 Magnesium Oxide [Mag-Ox] 400 mg PO TID #90 tab 12/23/20 Meclizine [Antivert] 25 mg PO TID #90 tab 12/23/20 Thiamine [Vitamin B-1] 100 mg PO DAILY@1200 #30 tab 12/23/20 Meloxicam [Mobic] 15 mg PO DAILY #14 tab 01/12/21 Pyridoxine [Vitamin B-6] 50 mg PO DAILY #30 tab 01/12/21 Allergies Allergy/AdvReac Type Severity Reaction Status Date / Time cephalexin monohydrate Allergy Anaphylaxis Verified 01/14/21 22:56 [From Keflex] Cephalosporins Allergy Anaphylaxis Verified 01/14/21 22:56 Penicillins Allergy Anaphylaxis Verified 01/14/21 22:56 Review of Systems ROS Statement: Those systems with pertinent positive or pertinent negative responses have been documented in the HPI. ROS Other: All systems not noted in ROS Statement are negative. Past Medical History Past Medical History: Atrial Fibrillation, Cancer, Diabetes Mellitus, GERD/Reflux, Hyperlipidemia, Hypertension, Memory Impairment, Osteoarthritis (OA), Pneumonia Additional Past Medical History / Comment(s): FELL 07/09/19 FX LT RADIUS, FREQUENT FALLS-REASON UNKNOWN. 03-10-16 FELL/FX RT FIBULA, VERTIGO , chronic headaches, BREAST CANCER History of Any Multi-Drug Resistant Organisms: CRE, MRSA Date of last positivie culture/infection: 02/2017 MDRO Source:: MRSA Past Surgical History: Back Surgery, Breast Surgery, Orthopedic Surgery Additional Past Surgical History / Comment(s): Bilateral mastectomy with right sided lymp node removal due to cancer, R knee cap removed, Back surgery for herniated disc., Brain stem surgery for decompression-for dizziness, right ankle ORIF, bilateral wrist fractures SX Past Anesthesia/Blood Transfusion Reactions: No Reported Reaction Past Psychological History: No Psychological Hx Reported Smoking Status: Former smoker Past Alcohol Use History: None Reported Past Drug Use History: None Reported - Past Family History Father History Unknown: Yes Family Medical History: Congestive Heart Failure (CHF) Additional Family Medical History / Comment(s): at 68. Mother History Unknown: Yes Family Medical History: Hypertension Additional Family Medical History / Comment(s): Pulmonary hypertension. at 78. General Exam Limitations: altered mental status General appearance: alert, in no apparent distress Head exam: Present: atraumatic, normocephalic, normal inspection Eye exam: Present: normal appearance, PERRL, EOMI. Absent: scleral icterus, conjunctival injection, periorbital swelling ENT exam: Present: normal exam, mucous membranes moist Neck exam: Present: normal inspection. Absent: tenderness, meningismus, lymphadenopathy Respiratory exam: Present: normal lung sounds bilaterally. Absent: respiratory distress, wheezes, rales, rhonchi, stridor Cardiovascular Exam: Present: regular rate, normal rhythm, normal heart sounds. Absent: systolic murmur, diastolic murmur, rubs, gallop, clicks GI/Abdominal exam: Present: soft, normal bowel sounds. Absent: distended, tenderness, guarding, rebound, rigid Extremities exam: Present: normal inspection, full ROM, normal capillary refill. Absent: tenderness, pedal edema, joint swelling, calf tenderness Back exam: Present: normal inspection Neurological exam: Present: alert, oriented X3, CN II-XII intact Psychiatric exam: Present: normal affect, normal mood Skin exam: Present: warm, dry, intact, normal color. Absent: rash Course Vital Signs 01/14/21 01/14/21 01/14/21 21:39 22:39 23:50 Temperature 97.9 F Pulse Rate 60 66 64 Respiratory 18 18 18 Rate Blood Pressure 131/77 139/83 126/81 O2 Sat by Pulse 97 96 97 Oximetry - Reevaluation(s) Reevaluation #1: 01/15/21 00:58 Medical record is reviewed including prior hospitalization Reevaluation #2: 01/15/21 00:58 Patient has no new complaints Reevaluation #3: 01/15/21 00:58 Patient is in no distress Reevaluation #4: 01/15/21 00:58 Patient is arousable when arousable he is very agitated - Consultations Consultation #1: Spoke with [facility] to agrees to admit this patient Medical Decision Making - Medical Decision Making 70 male to the emergency department today. Patient presents today for evaluation regards to altered mental status decreased level responsiveness. L ikely occult infection with elevated white count. Possible dehydration, patient be admitted, IV antibiotics, will awaiting urinalysis and coronavirus testing - Lab Data Result diagrams: 01/14/21 22:02 01/14/21 22:02 Lab Results 01/14/21 01/14/21 01/14/21 Range/Units 22:02 22:02 22:02 WBC 18.8 H (3.8-10.6) k/uL RBC 4.29 L (4.30-5.90) m/uL Hgb 13.3 (13.0-17.5) gm/dL Hct 41.8 (39.0-53.0) % MCV 97.7 (80.0-100.0) fL MCH 31.0 (25.0-35.0) pg MCHC 31.7 (31.0-37.0) g/dL RDW 13.7 (11.5-15.5) % Plt Count 211 (150-450) k/uL MPV 8.5 Neutrophils % 81 % Lymphocytes % 10 % Monocytes % 6 % Eosinophils % 1 % Basophils % 0 % Neutrophils # 15.2 H (1.3-7.7) k/uL Lymphocytes # 1.9 (1.0-4.8) k/uL Monocytes # 1.1 H (0-1.0) k/uL Eosinophils # 0.2 (0-0.7) k/uL Basophils # 0.1 (0-0.2) k/uL PT 10.1 (9.0-12.0) sec INR 0.9 (<1.2) APTT 27.5 (22.0-30.0) sec Sodium 138 (137-145) mmol/L Potassium 5.6 H (3.5-5.1) mmol/L Chloride 102 (98-107) mmol/L Carbon Dioxide 25 (22-30) mmol/L Anion Gap 11 mmol/L BUN 30 H (9-20) mg/dL Creatinine 1.71 H (0.66-1.25) mg/dL Est GFR (CKD-EPI)AfAm 46 (>60 ml/min/1.73 sqM) Est GFR (CKD-EPI)NonAf 40 (>60 ml/min/1.73 sqM) Glucose 111 H (74-99) mg/dL Calcium 9.8 (8.4-10.2) mg/dL Phosphorus 2.5 (2.5-4.5) mg/dL Magnesium 1.6 (1.6-2.3) mg/dL Total Bilirubin 0.5 (0.2-1.3) mg/dL AST 22 (17-59) U/L ALT 16 (4-49) U/L Alkaline Phosphatase 80 (38-126) U/L Troponin I (0.000-0.034) ng/mL NT-Pro-B Natriuret Pep pg/mL Total Protein 7.3 (6.3-8.2) g/dL Albumin 4.5 (3.5-5.0) g/dL 01/14/21 01/14/21 Range/Units 22:02 22:02 WBC (3.8-10.6) k/uL RBC (4.30-5.90) m/uL Hgb (13.0-17.5) gm/dL Hct (39.0-53.0) % MCV (80.0-100.0) fL MCH (25.0-35.0) pg MCHC (31.0-37.0) g/dL RDW (11.5-15.5) % Plt Count (150-450) k/uL MPV Neutrophils % % Lymphocytes % % Monocytes % % Eosinophils % % Basophils % % Neutrophils # (1.3-7.7) k/uL Lymphocytes # (1.0-4.8) k/uL Monocytes # (0-1.0) k/uL Eosinophils # (0-0.7) k/uL Basophils # (0-0.2) k/uL PT (9.0-12.0) sec INR (<1.2) APTT (22.0-30.0) sec Sodium (137-145) mmol/L Potassium (3.5-5.1) mmol/L Chloride (98-107) mmol/L Carbon Dioxide (22-30) mmol/L Anion Gap mmol/L BUN (9-20) mg/dL Creatinine (0.66-1.25) mg/dL Est GFR (CKD-EPI)AfAm (>60 ml/min/1.73 sqM) Est GFR (CKD-EPI)NonAf (>60 ml/min/1.73 sqM) Glucose (74-99) mg/dL Calcium (8.4-10.2) mg/dL Phosphorus (2.5-4.5) mg/dL Magnesium (1.6-2.3) mg/dL Total Bilirubin (0.2-1.3) mg/dL AST (17-59) U/L ALT (4-49) U/L Alkaline Phosphatase (38-126) U/L Troponin I <0.012 (0.000-0.034) ng/mL NT-Pro-B Natriuret Pep 156 pg/mL Total Protein (6.3-8.2) g/dL Albumin (3.5-5.0) g/dL - EKG Data -: EKG Interpreted by Me (EKG shows sinus rhythm 776 QRS 92 QTC 463) - Radiology Data Radiology results: report reviewed (CT brain is unchanged negative for acute disease, chest x-rays negative for acute disease), image reviewed Disposition Clinical Impression: Altered mental status, Weakness, Dehydration, Confusion, Leukocytosis Disposition: ADMITTED IP TO THIS HOSP Condition: Fair Is patient prescribed a controlled substance at d/c from ED?: No Referrals: Damon Rodriguez MD [Primary Care Provider] - 1-2 days
[2021-01-14] MEDS ORDERED: SODIUM CHLORIDE 0.9% 500 ML 500 ML IV STA (21:51)
[2021-01-14 22:10] LABS: Basophils # (A) 0.1 k/uL (0-0.2); Basophils % (A) 0 %; Eosinophils # (A) 0.2 k/uL (0-0.7); Eosinophils % (A) 1 %; HCT 41.8 % (39.0-53.0); HGB 13.3 gm/dL (13.0-17.5); Lymphocytes # (A) 1.9 k/uL (1.0-4.8); Lymphocytes % (A) 10 %; MCHC 31.7 g/dL (31.0-37.0); MCV 97.7 fL (80.0-100.0); Mean Platelet Volume 8.5; Monocytes # (A) 1.1 k/uL (0-1.0); Monocytes % (A) 6 %; Neutrophils # (A) 15.2 k/uL (1.3-7.7); Neutrophils % (A) 81 %; Platelet Count 211 k/uL (150-450); RBC 4.29 m/uL (4.30-5.90); RDW 13.7 % (11.5-15.5); WBC 18.8 k/uL (3.8-10.6)
[2021-01-14 22:18] LABS: INR 0.9 (<1.2); Partial Thromboplastin Time 27.5 sec (22.0-30.0); Prothrombin Time 10.1 sec (9.0-12.0)
[2021-01-14 22:27] LABS: Albumin 4.5 g/dL (3.5-5.0); Calcium 9.8 mg/dL (8.4-10.2); Magnesium 1.6 mg/dL (1.6-2.3); Phosphorus 2.5 mg/dL (2.5-4.5); Total Bilirubin 0.5 mg/dL (0.2-1.3); Total Protein 7.3 g/dL (6.3-8.2)
[2021-01-14 22:31] LABS: Potassium 5.6 mmol/L (3.5-5.1)
--- NOTE | 2021-01-14 22:33 | XR ---
EXAMINATION TYPE: XR chest 2V DATE OF EXAM: 01/14/2021 COMPARISON: 01/09/2021 HISTORY: Weakness TECHNIQUE: 2 views FINDINGS: There is no heart failure nor confluent pneumonic infiltrate. Costophrenic angles are fairl y clear. There are no hilar masses. Bony thorax is intact. IMPRESSION: No active cardiopulmonary disease. Normal heart. No change.
--- NOTE | 2021-01-14 22:57 | CT ---
EXAMINATION TYPE: CT brain wo con DATE OF EXAM: 01/14/2021 COMPARISON: 01/09/2021 and 06/18/2020 HISTORY: AMS CT DLP: 1154.4 mGycm Automated exposure control for dose reduction was used. Ventricles have fairly normal size. There is no mass effect nor midline shift. There is no sign of in tracranial hemorrhage. Calvarium is intact. There is normal aeration of the mastoid sinuses. Skull ba se shows apparent previous temporal bone surgery at the posterior aspect of the right mastoid sinus. There is some hypodensity in the lateral aspect right cerebellar hemisphere that could be encephaloma lacia and previous surgery. IMPRESSION: Right skull base surgery with some encephalomalacia right cerebellar hemisphere. No change compared t o old exam. No acute intracranial abnormality. No change also compared to 06/18/2020 exam.
[2021-01-14] MEDS ORDERED: LORazepam 2 MG/ML INJ IV STA (23:44)
[2021-01-15] MEDS ORDERED: LORazepam 2 MG/ML INJ IV PRN (00:52)
[2021-01-15] MEDS ORDERED: NALOXONE 0.4 MG/ML 1 ML VIAL IV PRN (00:52)
[2021-01-15] MEDS ORDERED: ONDANSETRON 4 MG/2 ML VIAL IVP PRN (00:52)
[2021-01-15] MEDS ORDERED: LEVOFLOXACIN 750MG-D5W PMX 750 MG in DEXTROSE/WATER 1 150ML.BAG IVPB STA (00:55)
[2021-01-15 02:01] LABS: Amorphous Sediment,Urine Rare /hpf; Appearance,Urine Clear (Clear); Bilirubin,Urine Negative (Negative); Blood,Urine Negative (Negative); Color,Urine Yellow; Glucose,Urine (UA) Negative (Negative); Hyaline Casts,Urine 24 /lpf (0-2); Ketones,Urine Negative (Negative); Leukocyte Esterase,Urine Small (Negative); Mucus,Urine Rare /hpf; Nitrite,Urine Negative (Negative); PH, Urine 5.5 (5.0-8.0); Protein,Urine Trace (Negative); RBC,Urine <1 /hpf (0-5); Squamous Epithelial Cell,Urine <1 /hpf (0-4); Urobilinogen,Urine <2.0 mg/dL (<2.0); WBC,Urine 4 /hpf (0-5)
[2021-01-15] MEDS: SODIUM CHLORIDE 0.9% 1,000 ML IV SCH ×4 (05:28→23:54)
[2021-01-15] MEDS: MORPHINE SULFATE 4 MG/ML SYRINGE IV PRN ×4 (07:42→21:04)
[2021-01-15] MEDS: BUTALB/APAP/CAFF 50-325-40MG TAB PO PRN (19:57)
[2021-01-15] MEDS: ATORVASTATIN 40 MG TAB PO SCH (19:57)
[2021-01-15] MEDS: MECLIZINE 25 MG TAB PO SCH (19:57)
[2021-01-15] MEDS: GABAPENTIN 100 MG CAP PO SCH (19:57)
[2021-01-15] MEDS: DULoxetine HCL 60 MG CAPSULE.DR PO SCH (19:58)
[2021-01-15 20:38] LABS: Glucose,Whole Blood 148 mg/dL (75-99)
[2021-01-15] MEDS ORDERED: GABAPENTIN 300 MG CAP PO SCH (21:00)
[2021-01-16] MEDS: MORPHINE SULFATE 4 MG/ML SYRINGE IV PRN ×6 (01:22→21:35)
[2021-01-16] MEDS: GABAPENTIN 100 MG CAP PO SCH ×2 (04:15→21:35)
[2021-01-16] MEDS: BUTALB/APAP/CAFF 50-325-40MG TAB PO PRN ×3 (04:15→21:34)
[2021-01-16] MEDS: LEVOFLOXACIN 750MG-D5W PMX 750 MG in DEXTROSE/WATER 1 150ML.BAG IVPB SCH (04:17)
[2021-01-16 06:03] LABS: Basophils % (A) 0 %; Eosinophils # (A) 0.4 k/uL (0-0.7); Eosinophils % (A) 4 %; HCT 40.6 % (39.0-53.0); HGB 12.7 gm/dL (13.0-17.5); Lymphocytes # (A) 2.1 k/uL (1.0-4.8); Lymphocytes % (A) 19 %; MCH 31.1 pg (25.0-35.0); MCHC 31.2 g/dL (31.0-37.0); MCV 99.9 fL (80.0-100.0); Mean Platelet Volume 7.5; Monocytes # (A) 0.8 k/uL (0-1.0); Monocytes % (A) 7 %; Neutrophils # (A) 7.3 k/uL (1.3-7.7); Neutrophils % (A) 67 %; Platelet Count 201 k/uL (150-450); RBC 4.06 m/uL (4.30-5.90); RDW 13.5 % (11.5-15.5); WBC 10.8 k/uL (3.8-10.6)
[2021-01-16] MEDS: DULoxetine HCL 60 MG CAPSULE.DR PO SCH ×2 (07:51→21:35)
[2021-01-16] MEDS: ASPIRIN 325 MG TAB PO SCH (07:52)
[2021-01-16] MEDS: MECLIZINE 25 MG TAB PO SCH ×3 (07:52→21:35)
[2021-01-16] MEDS: THIAMINE 100 MG TAB PO SCH (07:53)
[2021-01-16] MEDS: FOLIC ACID 1 MG TAB PO SCH (07:53)
[2021-01-16 07:57] LABS: Glucose,Whole Blood 145 mg/dL (75-99)
[2021-01-16] MEDS: SODIUM CHLORIDE 0.9% 1,000 ML IV SCH ×2 (08:00→16:20)
[2021-01-16 10:25] LABS: African American GFR (CKD) 85.9 (60.0-200.0); Albumin 4.1 g/dL (3.8-4.9); Albumin/Globulin Ratio 1.95 (1.60-3.17); Anion Gap 11.2 mmol/L (4.00-12.00); BUN/Creat Ratio 18.43 Ratio (12.00-20.00); Blood Urea Nitrogen 18.8 mg/dL (9.0-27.0); Calcium 9.4 mg/dL (8.7-10.3); Carbon Dioxide 26.7 mmol/L (21.6-31.8); Globulin 2.1 g/dL (1.6-3.3); Magnesium 1.4 mg/dL (1.5-2.4); Non-African American GFR(CKD) 74.1 (60.0-200.0); Potassium 4.9 mmol/L (3.5-5.5); Total Bilirubin 0.4 mg/dL (0.30-1.20); Total Protein 6.2 g/dL (6.2-8.2)
--- NOTE | 2021-01-16 17:20 | P.HPIM ---
History of Present Illness H&P Date: 01/15/21 Chief Complaint: Altered mental status 70-year-old male with history of atrial fibrillation, diabetes mellitus, hypertension, hyperlipidemia and dementia, who presents to the ER for evaluation today. Patient is unresponsive here in the emergency department. In coming in for altered mental status. Patient apparently had a head injury 2 days ago. Otherwise patient has no new complaints EMS has no new complaints and history is obtained from EMS and patient transfer record In the ED patient was found to have elevated white blood count at 18.8, hemoglobin 13.3, and platelet count of 211, sodium 138, potassium 5.6, BUN/creatinine of 30/1.7 and blood glucose of 111 CT of the brain was done which was negative for any acute changes; chest x-ray was negative Review of Systems ROS unobtainable: due to mental status Past Medical History Past Medical History: Atrial Fibrillation, Cancer, Diabetes Mellitus, GERD/Reflux, Hyperlipidemia, Hypertension, Memory Impairment, Osteoarthritis (OA), Pneumonia Additional Past Medical History / Comment(s): FELL 07/09/19 FX LT RADIUS, FREQUENT FALLS-REASON UNKNOWN. 03-10-16 FELL/FX RT FIBULA, VERTIGO , chronic headaches, BREAST CANCER History of Any Multi-Drug Resistant Organisms: CRE, MRSA Date of last positivie culture/infection: 02/2017 MDRO Source:: MRSA Past Surgical History: Back Surgery, Breast Surgery, Orthopedic Surgery Additional Past Surgical History / Comment(s): Bilateral mastectomy with right sided lymp node removal due to cancer, R knee cap removed, Back surgery for herniated disc., Brain stem surgery for decompression-for dizziness, right ankle ORIF, bilateral wrist fractures SX Past Anesthesia/Blood Transfusion Reactions: No Reported Reaction Past Psychological History: No Psychological Hx Reported Smoking Status: Former smoker Past Alcohol Use History: None Reported Past Drug Use History: None Reported - Past Family History Father History Unknown: Yes Family Medical History: Congestive Heart Failure (CHF) Additional Family Medical History / Comment(s): at 68. Mother History Unknown: Yes Family Medical History: Hypertension Additional Family Medical History / Comment(s): Pulmonary hypertension. at 78. Medications and Allergies Home Medications Medication Instructions Recorded Confirmed Type metFORMIN HCL [Glucophage] 500 mg PO BID 12/17/18 01/14/21 History Metoprolol Tartrate [Lopressor] 50 mg PO TID 11/06/19 01/14/21 History Atorvastatin [Lipitor] 40 mg PO HS 06/18/20 01/14/21 History DULoxetine HCL [Cymbalta] 60 mg PO BID 06/18/20 01/14/21 History Baclofen [Lioresal] 20 mg PO BID PRN #6 tab 07/07/20 01/14/21 Rx lisinopriL 20 mg PO BID 10/11/20 01/14/21 History Butalb/APAP/Caff 50-325-40Mg 1 tab PO TID PRN #9 tab 10/22/20 01/14/21 Rx [Fioricet 50-325-40] Gabapentin [Neurontin] 300 mg PO BID #6 cap 10/22/20 01/14/21 Rx Folic Acid 1 mg PO DAILY@1200 #30 tab 12/23/20 01/14/21 Rx Magnesium Oxide [Mag-Ox] 400 mg PO TID #90 tab 12/23/20 01/14/21 Rx Meclizine [Antivert] 25 mg PO TID #90 tab 12/23/20 01/14/21 Rx Thiamine [Vitamin B-1] 100 mg PO DAILY@1200 #30 tab 12/23/20 01/14/21 Rx Aspirin EC [Ecotrin] 325 mg PO DAILY 01/09/21 01/14/21 History Multivitamins, Thera [Multivitamin 1 tab PO DAILY@1200 01/09/21 01/14/21 History (formulary)] Triamcinolone 0.1% Ointment 1 applic TOPICAL BID 01/09/21 01/14/21 History [Kenalog 0.1% Ointment] diphenhydrAMINE HCL [Benadryl] 25 mg PO BID 01/09/21 01/14/21 History Meloxicam [Mobic] 15 mg PO DAILY #14 tab 01/12/21 01/14/21 Rx Pyridoxine [Vitamin B-6] 50 mg PO DAILY #30 tab 01/12/21 01/14/21 Rx Allergies Allergy/AdvReac Type Severity Reaction Status Date / Time cephalexin monohydrate Allergy Anaphylaxis Verified 01/14/21 22:56 [From Keflex] Cephalosporins Allergy Anaphylaxis Verified 01/14/21 22:56 Penicillins Allergy Anaphylaxis Verified 01/14/21 22:56 Physical Exam Vitals: Vital Signs Temp Pulse Resp BP Pulse Ox 01/15/21 11:02 64 16 109/73 97 01/15/21 07:23 65 16 131/86 96 01/15/21 05:33 98.2 F 61 16 111/71 94 L 01/15/21 03:00 63 18 126/72 97 01/15/21 02:00 63 18 127/71 95 01/15/21 01:00 60 18 110/66 96 01/14/21 23:50 64 18 126/81 97 01/14/21 22:39 66 18 139/83 96 01/14/21 21:39 97.9 F 60 18 131/77 97 Limitations: altered mental status General appearance: alert, in no apparent distress Head exam: Present: atraumatic, normocephalic, normal inspection Eye exam: Present: normal appearance, PERRL, EOMI. Absent: scleral icterus, conjunctival injection, periorbital swelling ENT exam: Present: normal exam, mucous membranes moist Neck exam: Present: normal inspection. Absent: tenderness, meningismus, lymphadenopathy Respiratory exam: Present: normal lung sounds bilaterally. Absent: respiratory distress, wheezes, rales, rhonchi, stridor Cardiovascular Exam: Present: regular rate, normal rhythm, normal heart sounds. Absent: systolic murmur, diastolic murmur, rubs, gallop, clicks GI/Abdominal exam: Present: soft, normal bowel sounds. Absent: distended, tenderness, guarding, rebound, rigid Extremities exam: Present: normal inspection, full ROM, normal capillary refill. Absent: tenderness, pedal edema, joint swelling, calf tenderness Back exam: Present: normal inspection Neurological exam: Patient opens eyes on verbal stimulation Psychiatric exam: Unable to evaluate Skin exam: Present: warm, dry, intact, normal color. Absent: rash Results CBC & Chem 7: 01/16/21 05:43 01/16/21 05:43 Labs: Abnormal Lab Results - Last 24 Hours (Table) 01/14/21 01/14/21 01/14/21 Range/Units 22:02 22:02 22:02 WBC 18.8 H (3.8-10.6) k/uL RBC 4.29 L (4.30-5.90) m/uL Neutrophils # 15.2 H (1.3-7.7) k/uL Monocytes # 1.1 H (0-1.0) k/uL Potassium 5.6 H (3.5-5.1) mmol/L BUN 30 H (9-20) mg/dL Creatinine 1.71 H (0.66-1.25) mg/dL Glucose 111 H (74-99) mg/dL Urine Protein Trace H (Negative) Ur Leukocyte Esterase Small H (Negative) Amorphous Sediment Rare H (None) /hpf Hyaline Casts 24 H (0-2) /lpf Urine Mucus Rare H (None) /hpf Assessment and Plan Assessment: 1. Altered mental status; possible toxic metabolic encephalopathy related to sepsis/dehydration - We will monitor CBC, CRP and pro-calcitonin 2. Leukocytosis/sepsis; source unclear - Patient has been maintained on Levaquin 500 mg IV every 24 hours; blood cult ures are obtained; we will monitor CBC, CRP and pro-calcitonin - IDs consulted and further recommendations on antibiotic 3. Acute renal injury; IV fluid hydration in form of normal saline; we will m onitor strict ELISABETH's, daily weights, renal function and electrolytes; avoid nephrotoxins and hypotension; we will hold off on lisinopril 2 renal function improved 4. Uncontrolled hypertension; lisinopril 20 mg twice a day and hold due to worsening renal function; we will resume home dose of metoprolol 50 mg 3 times a day; we will use IV hydralazine when necessary for systolic blood pressure great er than 160 5. Diabetes mellitus; we will continue with metformin 500 mg twice a day; monitor Accu-Cheks every before meals and at bedtime with insulin sliding scale 6. Hyperlipidemia; continue with home statin therapy DVT prophylaxis; SCDs/subcu heparin CODE STATUS; full code
[2021-01-16 17:48] LABS: Glucose,Whole Blood 161 mg/dL (75-99)
[2021-01-16 20:22] LABS: Glucose,Whole Blood 157 mg/dL (75-99)
--- NOTE | 2021-01-16 20:31 | P.PN ---
Subjective Progress Note Date: 01/16/21 Principal diagnosis: Altered mental status Leukocytosis/sepsis Acute renal injury Uncontrolled hypertension 70-year-old male with history of atrial fibrillation, diabetes mellitus, hypertension, hyperlipidemia and dementia, who presents to the ER for evaluation today. Patient is unresponsive here in the emergency department. In coming in for altered mental status. Patient apparently had a head injury 2 days ago. Otherwise patient has no new complaints EMS has no new complaints and history is obtained from EMS and patient transfer record In the ED patient was found to have elevated white blood count at 18.8, hemoglobin 13.3, and platelet count of 211, sodium 138, potassium 5.6, BUN/creatinine of 30/1.7 and blood glucose of 111 CT of the brain was done which was negative for any acute changes; chest x-ray was negative 01/16/2021 Patient is seen and evaluated sitting up in bed; patient is awake and alert and responsive Vital signs are reviewed temperature 98.7, pulse 84, respiration 20, blood pressure 150/89 Lab review shows a WBC of 10.8, hemoglobin 12.7 and platelet count of 201, sodium 138, potassium 4.9, BUN/creatinine of 18.8/1.0 Patient remains on IV antibiotics in form of Levaquin; patient has been pa ncultured and results are pending; await ID evaluation and recommendations in regard to source of sepsis and need for antibiotic therapy; we will monitor CBC, CRP and pro-calcitonin Objective - Vital Signs Vital signs: Vital Signs Temp 98.7 F 01/16/21 13:19 Pulse 94 01/16/21 13:19 Resp 20 01/16/21 13:19 BP 150/89 01/16/21 13:19 Pulse Ox 94 L 01/16/21 13:19 Intake & Output 01/15/21 01/16/21 01/16/21 18:59 06:59 18:59 Intake Total 130 2670 1100 Output Total 600 1000 Balance 130 2070 100 Weight 113.398 kg Intake: Intake, IV Titration 130 1710 1100 Amount Levofloxacin 750Mg-D5w 150 Pmx 750 mg In Dextrose/ Water 1 150ml.bag @ 100 mls/hr IVPB Q24H YARIEL Rx#: [id number] Sodium Chloride 0.9% 1, 130 1560 1100 000 ml @ 130 mls/hr IV . [id number] YARIEL Rx#:[id number] Oral 960 Output: Urine 600 1000 Other: Voiding Method Urinal # Voids 3 - Exam PHYSICAL EXAMINATION: GENERAL: The patient is alert and oriented x3, not in any acute distress. Well developed, well nourished. HEENT: Pupils are round and equally reacting to light. EOMI. No scleral icterus. No conjunctival pallor. Normocephalic, atraumatic. No pharyngeal erythema. No thyromegaly. CARDIOVASCULAR: S1 and S2 present. No murmurs, rubs, or gallops. PULMONARY: Chest is clear to auscultation, no wheezing or crackles. ABDOMEN: Soft, nontender, nondistended, normoactive bowel sounds. No palpable organomegaly. MUSCULOSKELETAL: No joint swelling or deformity. EXTREMITIES: No cyanosis, clubbing, or pedal edema. NEUROLOGICAL: Gross neurological examination did not reveal any focal deficits. SKIN: No rashes. - Labs CBC & Chem 7: 01/16/21 05:43 01/16/21 05:43 Labs: Abnormal Lab Results - Last 24 Hours (Table) 01/15/21 01/16/21 01/16/21 Range/Units 20:37 05:43 05:43 WBC 10.8 H (3.8-10.6) k/uL RBC 4.06 L (4.30-5.90) m/uL Hgb 12.7 L (13.0-17.5) gm/dL Glucose 124 H (70-110) mg/dL POC Glucose (mg/dL) 148 H (75-99) mg/dL Magnesium 1.4 L (1.5-2.4) mg/dL AST 9 L (14-35) U/L 01/16/21 Range/Units 07:56 WBC (3.8-10.6) k/uL RBC (4.30-5.90) m/uL Hgb (13.0-17.5) gm/dL Glucose (70-110) mg/dL POC Glucose (mg/dL) 145 H (75-99) mg/dL Magnesium (1.5-2.4) mg/dL AST (14-35) U/L Assessment and Plan Assessment: 1. Altered mental status; possible toxic metabolic encephalopathy related to sepsis/dehydration - We will monitor CBC, CRP and pro-calcitonin 2. Leukocytosis/sepsis; source unclear - Patient has been maintained on Levaquin 500 mg IV every 24 hours; blood cultures are obtained; we will monitor CBC, CRP and pro-calcitonin - IDs consulted and further recommendations on antibiotic 3. Acute renal injury; IV fluid hydration in form of normal saline; we will monitor strict ELISABETH's, daily weights, renal function and electrolytes; avoid nephrotoxins and hypotension; we will hold off on lisinopril 2 renal function improved 4. Uncontrolled hypertension; lisinopril 20 mg twice a day and hold due to worsening renal function; we will resume home dose of metoprolol 50 mg 3 times a day; we will use IV hydralazine when necessary for systolic blood pressure greater than 160 5. Diabetes mellitus; we will continue with metformin 500 mg twice a day; monitor Accu-Cheks every before meals and at bedtime with insulin sliding scale 6. Hyperlipidemia; continue with home statin therapy DVT prophylaxis; SCDs/subcu heparin CODE STATUS; full code
[2021-01-16] MEDS: METOPROLOL TARTRATE 50 MG TAB PO SCH (21:34)
[2021-01-16] MEDS: MAGNESIUM OXIDE 400 MG TAB PO SCH (21:35)
[2021-01-16] MEDS: metFORMIN 500 MG TAB PO SCH (21:35)
[2021-01-16] MEDS: ATORVASTATIN 40 MG TAB PO SCH (21:35)
[2021-01-17] MEDS: MORPHINE SULFATE 4 MG/ML SYRINGE IV PRN ×4 (02:08→19:41)
[2021-01-17] MEDS: BUTALB/APAP/CAFF 50-325-40MG TAB PO PRN (04:18)
[2021-01-17] MEDS: LEVOFLOXACIN 750MG-D5W PMX 750 MG in DEXTROSE/WATER 1 150ML.BAG IVPB SCH (04:19)
[2021-01-17] MEDS ORDERED: ARTIFICIAL TEARS-HYPROMELLOSE DROPS 15 ML BTL BOTH EYES PRN (04:25)
[2021-01-17 07:29] LABS: Glucose,Whole Blood 136 mg/dL (75-99)
[2021-01-17 08:04] LABS: Basophils % (A) 0 %; Eosinophils # (A) 0.5 k/uL (0-0.7); Eosinophils % (A) 5 %; HCT 39.1 % (39.0-53.0); HGB 12.3 gm/dL (13.0-17.5); Lymphocytes # (A) 1.8 k/uL (1.0-4.8); Lymphocytes % (A) 19 %; MCH 30.5 pg (25.0-35.0); MCHC 31.3 g/dL (31.0-37.0); MCV 97.4 fL (80.0-100.0); Mean Platelet Volume 7.7; Monocytes # (A) 0.7 k/uL (0-1.0); Monocytes % (A) 7 %; Neutrophils # (A) 6.2 k/uL (1.3-7.7); Neutrophils % (A) 67 %; Platelet Count 215 k/uL (150-450); RBC 4.02 m/uL (4.30-5.90); RDW 13.5 % (11.5-15.5); WBC 9.3 k/uL (3.8-10.6)
[2021-01-17] MEDS: SODIUM CHLORIDE 0.9% 1,000 ML IV SCH ×3 (08:18→15:52)
[2021-01-17] MEDS: DULoxetine HCL 60 MG CAPSULE.DR PO SCH ×2 (08:24→21:09)
[2021-01-17] MEDS: MECLIZINE 25 MG TAB PO SCH ×3 (08:24→21:08)
[2021-01-17] MEDS: METOPROLOL TARTRATE 50 MG TAB PO SCH ×3 (08:24→21:08)
[2021-01-17] MEDS: MAGNESIUM OXIDE 400 MG TAB PO SCH ×3 (08:24→21:08)
[2021-01-17] MEDS: GABAPENTIN 100 MG CAP PO SCH ×2 (08:24→21:09)
[2021-01-17] MEDS: metFORMIN 500 MG TAB PO SCH ×2 (08:24→21:08)
[2021-01-17] MEDS: ASPIRIN 325 MG TAB PO SCH (08:24)
[2021-01-17 12:19] LABS: Anion Gap 12.7 mmol/L (4.00-12.00); BUN/Creat Ratio 18.1 Ratio (12.00-20.00); Blood Urea Nitrogen 18.1 mg/dL (9.0-27.0); C Reactive Protein 4.8 mg/dL (0.00-0.80); Calcium 9.1 mg/dL (8.7-10.3); Carbon Dioxide 24.3 mmol/L (21.6-31.8); Non-African American GFR(CKD) 75.9 (60.0-200.0); Potassium 4.8 mmol/L (3.5-5.5)
[2021-01-17] MEDS: FOLIC ACID 1 MG TAB PO SCH (12:58)
[2021-01-17] MEDS: THIAMINE 100 MG TAB PO SCH (12:58)
[2021-01-17] MEDS: TRIAMCINOLONE ACET 0.5% CREAM 15 GM TUBE TOPICAL SCH ×2 (15:49→21:10)
[2021-01-17 17:30] LABS: Basophils % (A) 0 %; Eosinophils # (A) 0.5 k/uL (0-0.7); Eosinophils % (A) 3 %; HCT 40.2 % (39.0-53.0); HGB 13.4 gm/dL (13.0-17.5); Lymphocytes # (A) 1.8 k/uL (1.0-4.8); Lymphocytes % (A) 12 %; MCH 31.4 pg (25.0-35.0); MCHC 33.2 g/dL (31.0-37.0); MCV 94.6 fL (80.0-100.0); Mean Platelet Volume 9.2; Monocytes # (A) 1.2 k/uL (0-1.0); Monocytes % (A) 8 %; Neutrophils # (A) 10.8 k/uL (1.3-7.7); Neutrophils % (A) 74 %; RBC 4.25 m/uL (4.30-5.90); RDW 13.3 % (11.5-15.5); WBC 14.5 k/uL (3.8-10.6)
[2021-01-17 17:36] LABS: Platelet Count 176 k/uL (150-450)
[2021-01-17 17:45] LABS: Glucose,Whole Blood 166 mg/dL (75-99)
[2021-01-17 20:23] LABS: Glucose,Whole Blood 146 mg/dL (75-99)
[2021-01-17] MEDS: ATORVASTATIN 40 MG TAB PO SCH (21:09)
--- NOTE | 2021-01-17 21:58 | P.PN ---
Subjective Progress Note Date: 01/17/21 Principal diagnosis: Altered mental status Leukocytosis/sepsis Acute renal injury Uncontrolled hypertension 70-year-old male with history of atrial fibrillation, diabetes mellitus, hypertension, hyperlipidemia and dementia, who presents to the ER for evaluation today. Patient is unresponsive here in the emergency department. In coming in for altered mental status. Patient apparently had a head injury 2 days ago. Otherwise patient has no new complaints EMS has no new complaints and history is obtained from EMS and patient transfer record In the ED patient was found to have elevated white blood count at 18.8, hemoglobin 13.3, and platelet count of 211, sodium 138, potassium 5.6, BUN/creatinine of 30/1.7 and blood glucose of 111 CT of the brain was done which was negative for any acute changes; chest x-ray was negative 01/16/2021 Patient is seen and evaluated sitting up in bed; patient is awake and alert and responsive Vital signs are reviewed temperature 98.7, pulse 84, respiration 20, blood pressure 150/89 Lab review shows a WBC of 10.8, hemoglobin 12.7 and platelet count of 201, sodium 138, potassium 4.9, BUN/creatinine of 18.8/1.0 Patient remains on IV antibiotics in form of Levaquin; patient has been pancultured and results are pending; await ID evaluation and recommendations in regard to source of sepsis and need for antibiotic therapy; we will monitor CBC, CRP and pro-calcitonin 01/17/2021 Patient is currently lying in the bed. Awake alert and able to communicate. Complaints of leg pain. Denies any increase in swelling. No complaints of chest pain or shortness breath. Patient has been afebrile. Tolerating oral diet slowly. Blood pressure is 166/98, pulse 78 respirations 16 and pulse ox 94% on room air. Afebrile overnight. Patient is being continued on empiric antibiotic in the form of Levaquin. Procalcitonin level is 0.04. Laboratory data showed WBC 14.5 hemoglobin 13.4 and platelets 176 neutrophils 10.8 Renal function improved with creatinine level 1.0 today. CRP level is 4.8. Patient will be continued PT OT and follow-up CBC and BMP tomorrow. Current medications reviewed. Objective - Vital Signs Vital signs: Vital Signs Temp 100.5 F H 01/17/21 21:00 Pulse 89 01/17/21 21:00 Resp 18 10/25/21 21:00 BP 165/80 01/17/21 21:00 Pulse Ox 96 01/17/21 21:00 Intake & Output 01/17/21 01/17/21 01/18/21 06:59 18:59 06:59 Intake Total 2060 1280 Output Total 1050 Balance 1010 1280 Intake: IV 1580 1040 Levofloxacin 750Mg-D5w 150 Pmx 750 mg In Dextrose/ Water 1 150ml.bag @ 100 mls/hr IVPB Q24H [facility] Rx#: [id number] Sodium Chloride 0.9% 1, 1430 1040 000 ml @ 130 mls/hr IV . [id number] [facility] Rx#:[id number] Oral 480 240 Output: Urine 1050 Other: Voiding Method Urinal Urinal # Voids 1 - Exam PHYSICAL EXAMINATION: GENERAL: The patient is alert and oriented x3, not in any acute distress. Well developed, well nourished. HEENT: Pupils are round and equally reacting to light. EOMI. No scleral icterus. No conjunctival pallor. Normocephalic, atraumatic. No pharyngeal erythema. No thyromegaly. CARDIOVASCULAR: S1 and S2 present. No murmurs, rubs, or gallops. PULMONARY: Chest is clear to auscultation, no wheezing or crackles. Bibasilar diminished sounds. ABDOMEN: Soft, nontender, nondistended, normoactive bowel sounds. No palpable organomegaly. MUSCULOSKELETAL: No joint swelling or deformity. EXTREMITIES: No cyanosis, clubbing, or pedal edema. NEUROLOGICAL: Gross neurological examination did not reveal any focal deficits. SKIN: No rashes, intact. - Labs CBC & Chem 7: 01/17/21 17:17 01/17/21 07:07 Labs: Abnormal Lab Results - Last 24 Hours (Table) 01/17/21 01/17/21 01/17/21 Range/Units 07:07 07:07 07:21 WBC (3.8-10.6) k/uL RBC 4.02 L (4.30-5.90) m/uL Hgb 12.3 L (13.0-17.5) gm/dL Neutrophils # (1.3-7.7) k/uL Monocytes # (0-1.0) k/uL Anion Gap 12.70 H (4.00-12.00) mmol/L Glucose 118 H (70-110) mg/dL POC Glucose (mg/dL) 136 H (75-99) mg/dL C-Reactive Protein 4.80 H (0.00-0.80) mg/dL 01/17/21 01/17/21 01/17/21 Range/Units 17:17 17:33 20:22 WBC 14.5 H (3.8-10.6) k/uL RBC 4.25 L (4.30-5.90) m/uL Hgb (13.0-17.5) gm/dL Neutrophils # 10.8 H (1.3-7.7) k/uL Monocytes # 1.2 H (0-1.0) k/uL Anion Gap (4.00-12.00) mmol/L Glucose (70-110) mg/dL POC Glucose (mg/dL) 166 H 146 H (75-99) mg/dL C-Reactive Protein (0.00-0.80) mg/dL Assessment and Plan Assessment: 1. Altered mental status; possible toxic metabolic encephalopathy related to sepsis/dehydration. improving - We will monitor CBC, CRP and pro-calcitonin 2. Leukocytosis/sepsis; source unclear - Patient has been maintained on Levaquin 500 mg IV every 24 hours; blood cultures are obtained; we will monitor CBC. CRP 4.8 and pro-calcitonin 0.04 - IDs consulted and further recommendations on antibiotic 3. Acute renal injury; IV fluid hydration in form of normal saline; we will monitor strict ELISABETH's, daily weights, renal function and electrolytes; avoid nephrotoxins and hypotension; we will hold off on lisinopril until renal function improved 4. Uncontrolled hypertension; lisinopril 20 mg twice a day and hold due to worsening renal function; we will resume home dose of metoprolol 50 mg 3 times a day; we will use IV hydralazine when necessary for systolic blood pressure greater than 160 5. Diabetes mellitus; we will continue with metformin 500 mg twice a day; monitor Accu-Cheks every before meals and at bedtime with insulin sliding scale 6. Hyperlipidemia; continue with home statin therapy DVT prophylaxis; SCDs/subcu heparin CODE STATUS; full code Time with Patient: Greater than 30
[2021-01-17] MEDS ORDERED: IOPAMIDOL CONTRAST (ORAL USE) VIAL PO PRN (22:25)
--- NOTE | 2021-01-17 22:54 | PN ---
PROGRESS NOTE DATE OF SERVICE: 01/17/2021 REASON FOR FOLLOWUP: Leukocytosis. INTERVAL HISTORY: The patient remains afebrile. The patient is breathing comfortably. Denies any chest pain or shortness of breath. Occasional cough. No abdominal pain or diarrhea. PHYSICAL EXAMINATION: Blood pressure 110/80 with a pulse of 85, temperature of 98.2. He is 96% on room air. General description is an elderly male lying in bed in no distress. RESPIRATORY SYSTEM: Unlabored breathing. Decreased breath sounds at the bases. No wheeze. HEART: S1, S2. Regular rate and rhythm. ABDOMEN: Soft. No tenderness. LABS: White count normalized to 9.3 this morning. BUN of 18, creatinine 1.0. DIAGNOSTIC IMPRESSION AND PLAN: Patient presented to hospital with an episode of unresponsiveness He did have elevated white count but no fever. White count has normalized , initial workup is negative. Chest x- ray was negative. Urine is negative. Has been on empiric Levaquin because of his PENICILLIN AND CEPHALOSPORIN ALLERGY. Subsequently the patient did spike a low- grade fever and white count jumped. Cultures will be repeated. Will obtain a CT of abdomen and pelvis to rule out any abdominal source. Continue Levaquin and monitor his clinical course closely. MMODL / IJN: [id number] / MTDD
[2021-01-18] MEDS: SODIUM CHLORIDE 0.9% 1,000 ML IV SCH ×2 (00:50→16:32)
[2021-01-18] MEDS: BUTALB/APAP/CAFF 50-325-40MG TAB PO PRN ×3 (01:52→20:36)
--- NOTE | 2021-01-18 03:44 | XR ---
EXAMINATION TYPE: XR chest 1V portable DATE OF EXAM: 01/18/2021 COMPARISON: 01/14/2021 HISTORY: Short of breath TECHNIQUE: FINDINGS: There is no heart failure nor confluent pneumonic infiltrate. Costophrenic angles are clear . There are no hilar masses. Bony thorax is intact. IMPRESSION: No active cardiopulmonary disease. No change.
[2021-01-18 04:31] LABS: Glucose,Whole Blood 206 mg/dL (75-99)
[2021-01-18 07:25] LABS: Glucose,Whole Blood 136 mg/dL (75-99)
[2021-01-18 07:43] LABS: Basophils % (A) 0 %; Eosinophils # (A) 0.1 k/uL (0-0.7); Eosinophils % (A) 1 %; HCT 40.4 % (39.0-53.0); Lymphocytes # (A) 1.9 k/uL (1.0-4.8); Lymphocytes % (A) 15 %; MCH 31.2 pg (25.0-35.0); MCHC 32.2 g/dL (31.0-37.0); MCV 96.9 fL (80.0-100.0); Mean Platelet Volume 7.4; Monocytes % (A) 8 %; Neutrophils % (A) 75 %; Platelet Count 234 k/uL (150-450); RBC 4.17 m/uL (4.30-5.90); RDW 13.3 % (11.5-15.5); WBC 13.4 k/uL (3.8-10.6)
[2021-01-18] MEDS: ASPIRIN 325 MG TAB PO SCH (07:48)
[2021-01-18] MEDS: MAGNESIUM OXIDE 400 MG TAB PO SCH ×3 (07:48→20:36)
[2021-01-18] MEDS: MECLIZINE 25 MG TAB PO SCH ×3 (08:07→20:36)
[2021-01-18] MEDS: METOPROLOL TARTRATE 50 MG TAB PO SCH ×3 (08:07→20:36)
[2021-01-18] MEDS: GABAPENTIN 100 MG CAP PO SCH ×2 (08:08→20:36)
[2021-01-18] MEDS: DULoxetine HCL 60 MG CAPSULE.DR PO SCH ×2 (08:08→20:36)
[2021-01-18] MEDS: LEVOFLOXACIN 750 MG TAB PO SCH (09:54)
--- NOTE | 2021-01-18 11:30 | XR ---
EXAMINATION TYPE: XR knee complete LT, XR tibia fibula LT DATE OF EXAM: 01/18/2021 CLINICAL HISTORY: Pain after fall injury. TECHNIQUE: Three views of the left knee are obtained. COMPARISON: Left knee x-ray October 19, 2020. Left leg x-ray July 11, 2020 FINDINGS: There is no acute fracture/dislocation evident in left knee. There is mild to moderate tri compartment joint space spurring redemonstrated. Moderate narrowing patellofemoral compartment again seen. Persistent moderate-sized suprapatellar joint effusion.. Tibial condylar spurring redemonstrate d. There is no acute fracture or dislocation the left tibia or fibula. Dense calcification along the dis kevyn Achilles tendon redemonstrated. Large inferior calcaneal spur seen. Posterior proximal soft tissu e calcifications are redemonstrated. IMPRESSION: There is no acute fracture or dislocation in the left leg or knee.
--- NOTE | 2021-01-18 11:33 | CT ---
EXAMINATION TYPE: CT abdomen pelvis w con DATE OF EXAM: 01/18/2021 COMPARISON: 06/22/2017 HISTORY: 70-year-old male Fever, history of breast CA TECHNIQUE: Contiguous axial scanning of the abdomen and pelvis following administration of 100 ml Iso shawn 300 IV contrast. Delayed images through the kidneys and coronal/sagittal reconstructions perform ed. CT DLP: 3812.5 mGycm Automated exposure control for dose reduction was used. FINDINGS: Unchanged left-sided subareolar irregular density, possible scarring given patient's history of prior breast cancer. Heart upper limits of normal in size. Scattered three-vessel coronary artery calcifications are prese nt. Patchy nodular posterior right basilar infiltrate. Some interstitial scarring and bronchiolectasis po steromedial left base slightly increased in the interval. No pleural effusion. No focal liver lesion or biliary ductal dilatation. Portal venous system is patent. Gallbladder, adrenal glands, spleen, and pancreas show no gross abnormality. Bilateral perinephric edema could reflect underlying chronic kidney disease or significant change. Ti ny cortical 1 cm hypodensity medial lower pole right kidney too small for accurate CT characterizatio n, probably a tiny cyst. Some nonspecific subcutaneous nodularity in the anterior mid to lower abdomen probably relating to edmonds bcutaneous injections. No dilated small bowel, free fluid, or free air. No mesenteric or retroperitoneal lymphadenopathy. Moderate stool burden. Left-sided colonic diverticulosis. No pericolonic inflammatory change seen. Bladder is urine distended. There is a 6 mm calculus dependent within the left side of the bladder. P rostate gland measures 4.6 cm wide with some central calcifications. No abnormal fluid collection in the pelvis or pelvic lymphadenopathy. Coils along the anterior pelvic wall likely from prior mesh rep air. Bones: Mild degenerative change at the hips and right SI joint. Hypertrophic facet arthropathy lumbar spine with grade 1 retrolisthesis L2-L3. [facility] in the lower thoracic spine. IMPRESSION: 1. PATCHY AND NODULAR POSTERIOR RIGHT BASILAR INFILTRATE SUSPICIOUS FOR DEVELOPING PNEUMONIA. 2. MODERATE STOOL BURDEN. 3. LEFT-SIDED CLONIC DIVERTICULOSIS. NO EVIDENCE FOR ACUTE DIVERTICULITIS. 3. SMALL 6 MM BLADDER CALCULUS. 4. BILATERAL PERINEPHRIC EDEMA COULD REPRESENT SENESCENT CHANGE OR UNDERLYING CHRONIC KIDNEY DISEASE. CLINICALLY CORRELATE.
[2021-01-18] MEDS: FOLIC ACID 1 MG TAB PO SCH (11:55)
[2021-01-18] MEDS: TRIAMCINOLONE ACET 0.5% CREAM 15 GM TUBE TOPICAL SCH ×2 (11:55→20:37)
[2021-01-18] MEDS: THIAMINE 100 MG TAB PO SCH (11:55)
[2021-01-18] MEDS: MORPHINE SULFATE 4 MG/ML SYRINGE IV PRN ×3 (12:01→22:06)
[2021-01-18 12:50] LABS: Glucose,Whole Blood 183 mg/dL (75-99)
[2021-01-18 12:58] LABS: African American GFR (CKD) 92.1 (60.0-200.0); Anion Gap 15.3 mmol/L (4.00-12.00); BUN/Creat Ratio 16.2 Ratio (12.00-20.00); Blood Urea Nitrogen 15.6 mg/dL (9.0-27.0); Calcium 9.1 mg/dL (8.7-10.3); Carbon Dioxide 20.8 mmol/L (21.6-31.8); Magnesium 1.4 mg/dL (1.5-2.4); Non-African American GFR(CKD) 79.5 (60.0-200.0); Potassium 4.8 mmol/L (3.5-5.5)
[2021-01-18] MEDS: INSULIN ASPART (NovoLOG) 100 UNIT/ML VIAL SQ SCH ×3 (13:23→20:36)
[2021-01-18 17:28] LABS: Glucose,Whole Blood 205 mg/dL (75-99)
[2021-01-18] MEDS ORDERED: Magnesium Replacement Protocol 1 EACH MISC MISCELLANE PRN (18:38)
--- NOTE | 2021-01-18 18:45 | P.PN ---
Subjective Progress Note Date: 01/18/21 Principal diagnosis: Altered mental status Leukocytosis/sepsis Acute renal failure Uncontrolled hypertension Possible pneumonia 70-year-old male with significant past medical history of paroxysmal atrial fibrillation, not on anticoagulation therapy, diabetes mellitus type 2, GERD /reflux, hyperlipidemia, hypertension, memory impairment, osteoarthritis, history of breast cancer, chronic vertigo, chronic cephalgia, history of brainstem surgery for decompression for chronic dizziness, history of multiple falls with fractures, and several comorbidities is admitted to the hospital for acute mental status changes, acute kidney injury, leukocytosis without a source with a left sided shift, elevated potassium of 5.6 with acute renal injury with creatinine 1.7 and BUN 30, mildly elevated glucose of 111 negative urinalysis and negative Covid PCR. Consultation with infectious disease for leukocytosis without a source with mild fever. Patient has been initiated on IV piggyback Levaquin 750 mg for broad-spectrum coverage of antibiotic therapy with leukocytosis, fever without a source at this time. 01/18/2021 Patient seen and examined at bedside. Patient resting comfortably in bed with no acute signs of distress. Patient endorses fever, chills, exertional shortness of breath, generalized weakness left sided knee pain left-sided leg pain and chronic back pain. Patient alert and oriented 4 able to answer questions without difficulty. Review diagnostic labs mild leukocytosis with a white count 13.4 mild increase of neutrophils of 10.0; CMP sodium 137, potassium 4.8, renal function unremarkable mildly elevated glucose at 160, magnesium 1.4. CT abdomen and pelvis was obtained, patchy and nodular posterior right basilar infiltrate suspicious for pneumonia, will continue Levaquin 750 mg by mouth daily. Patient encouraged to participate with physical therapy/occupational therapy Objective - Vital Signs Vital signs: Vital Signs Temp 99.2 F 01/18/21 12:22 Pulse 65 01/18/21 16:32 Resp 20 01/18/21 12:22 BP 138/75 01/18/21 16:32 Pulse Ox 92 L 01/18/21 12:22 Intake & Output 01/17/21 01/18/21 01/18/21 18:59 06:59 18:59 Intake Total 1280 900 200 Output Total 800 Balance 1280 900 -600 Intake: IV 1040 900 Sodium Chloride 0.9% 1, 1040 900 000 ml @ 75 mls/hr IV . [id number] [facility] Rx#:[id number] Oral 240 200 Output: Urine 800 Other: Voiding Method Urinal Urinal Urinal # Voids 3 - Constitutional General appearance: Present: cooperative, morbidly obese - EENT Eyes: Present: EOMI, PERRLA ENT: Present: hard of hearing - Neck Neck: Present: normal ROM Carotids: bilateral: upstroke normal Thyroid: bilateral: normal size - Respiratory Respiratory: bilateral: diminished (Anterior and posterior lung bishop) - Cardiovascular Details: Normal sinus rhythm Heart rate: 78 Rhythm: regular Heart sounds: normal: S1, S2 - Peripheral pulses radial pulse Peripheral Pulses: bilateral: Normal dorsalis pedis Peripheral Pulses: bilateral: Normal - Gastrointestinal General gastrointestinal: Present: normal bowel sounds, soft - Integumentary Integumentary: Present: decreased turgor - Musculoskeletal Musculoskeletal: Present: generalized weakness - Psychiatric Psychiatric: Present: A&O x's 3 - Allied health notes Allied health notes reviewed: nursing - Labs CBC & Chem 7: 01/18/21 07:24 01/18/21 07:24 Labs: Abnormal Lab Results - Last 24 Hours (Table) 01/17/21 01/18/21 01/18/21 Range/Units 20:22 04:28 07:22 WBC (3.8-10.6) k/uL RBC (4.30-5.90) m/uL Neutrophils # (1.3-7.7) k/uL Carbon Dioxide (21.6-31.8) mmol/L Anion Gap (4.00-12.00) mmol/L Glucose (70-110) mg/dL POC Glucose (mg/dL) 146 H 206 H 136 H (75-99) mg/dL Magnesium (1.5-2.4) mg/dL 01/18/21 01/18/21 01/18/21 Range/Units 07:24 07:24 12:49 WBC 13.4 H (3.8-10.6) k/uL RBC 4.17 L (4.30-5.90) m/uL Neutrophils # 10.0 H (1.3-7.7) k/uL Carbon Dioxide 20.8 L (21.6-31.8) mmol/L Anion Gap 15.30 H (4.00-12.00) mmol/L Glucose 160 H (70-110) mg/dL POC Glucose (mg/dL) 183 H (75-99) mg/dL Magnesium 1.4 L (1.5-2.4) mg/dL 01/18/21 Range/Units 17:26 WBC (3.8-10.6) k/uL RBC (4.30-5.90) m/uL Neutrophils # (1.3-7.7) k/uL Carbon Dioxide (21.6-31.8) mmol/L Anion Gap (4.00-12.00) mmol/L Glucose (70-110) mg/dL POC Glucose (mg/dL) 205 H (75-99) mg/dL Magnesium (1.5-2.4) mg/dL - Imaging and Cardiology CT scan - abdomen: report reviewed Assessment and Plan Assessment: Altered mental status, possibly toxic metabolic encephalopathy related to sepsis and dehydration improving Leukocytosis/sepsis unknown source possibly pneumonia Acute kidney injury, improved with IV hydration paroxysmal atrial fibrillation, not on anticoagulation therapy diabetes mellitus type 2 GERD/reflux hyperlipidemia hypertension memory impairment osteoarthritis history of breast cancer chronic vertigo chronic cephalgia history of brainstem surgery for decompression for chronic dizziness history of multiple falls with fractures Obesity with a BMI of 42.5 Full code Plan: Altered mental status possible metabolic encephalopathy related to sepsis and dehydration we'll continue to monitor improved patient had neurological baseline Leukocytosis/sepsis source unclear continue consultation with infectious disease, CT abdomen and pelvis shows possible patchy of infiltrates developing pneumonia we'll continue Levaquin by mouth 750 mg Acute kidney injury resolved with IV hydration and avoidance of nephrotoxic drugs will resume lisinopril and metformin for diabetes and hypertension control Continue to monitor vital signs and diagnostic testing Continue medical management Further recommendations come based on patient's clinical condition Time with Patient: Greater than 30
[2021-01-18] MEDS: MAGNESIUM SULFATE-D5W PMX 1 GM in DEXTROSE/WATER 1 100ML.BAG IVPB SCH ×3 (19:19→21:45)
[2021-01-18] MEDS: ATORVASTATIN 40 MG TAB PO SCH (20:36)
[2021-01-18] MEDS: diphenhydrAMINE 25 MG CAP PO SCH (20:36)
[2021-01-18] MEDS: lisinopriL 20 MG TAB PO SCH (20:36)
--- NOTE | 2021-01-18 23:08 | PN ---
PROGRESS NOTE DATE OF SERVICE: 01/18/2021 REASON FOR FOLLOWUP: Fever, possible abdominal source. INTERVAL HISTORY: The patient is afebrile. The patient is currently breathing comfortably. The patient denies having any chest pain. He did have some cough, not bringing up any sputum. No abdominal pain or diarrhea. PHYSICAL EXAMINATION: Blood pressure 139/71 with a pulse of 72, temperature 98.4. He is 95% on room air. General description is an elderly male lying in bed in no distress. RESPIRATORY SYSTEM: Unlabored breathing. Decreased breath sounds at the bases. No wheeze. HEART: S1, S2. Regular rate and rhythm. ABDOMEN: Soft. No tenderness. EXTREMITIES: No edema of the feet. LABS: Hemoglobin is 13, white count 13.4. Creatinine is 1.0. DIAGNOSTIC IMPRESSION AND PLAN: Patient with a fever concerning for possible pneumonia seen on the CT. There was no evidence of any intraabdominal pathology. Patient is covered with Levaquin because of his CEPHALOSPORIN ALLERGY; to continue while monitoring his clinical course closely. Continue supportive care. MMODL / IJN: [id number] /
[2021-01-19] MEDS: MORPHINE SULFATE 4 MG/ML SYRINGE IV PRN ×6 (01:58→23:07)
[2021-01-19] MEDS: SODIUM CHLORIDE 0.9% 1,000 ML IV SCH ×3 (03:16→18:43)
[2021-01-19] MEDS: BUTALB/APAP/CAFF 50-325-40MG TAB PO PRN ×2 (06:03→19:35)
[2021-01-19] MEDS: GABAPENTIN 100 MG CAP PO SCH ×2 (06:03→20:27)
[2021-01-19 06:24] LABS: Basophils % (A) 0 %; Eosinophils # (A) 0.4 k/uL (0-0.7); Eosinophils % (A) 3 %; HCT 38.1 % (39.0-53.0); HGB 12.1 gm/dL (13.0-17.5); Lymphocytes # (A) 2.2 k/uL (1.0-4.8); Lymphocytes % (A) 19 %; MCH 31.1 pg (25.0-35.0); MCHC 31.6 g/dL (31.0-37.0); MCV 98.4 fL (80.0-100.0); Mean Platelet Volume 7.7; Monocytes # (A) 1.2 k/uL (0-1.0); Monocytes % (A) 11 %; Neutrophils # (A) 7.7 k/uL (1.3-7.7); Neutrophils % (A) 66 %; Platelet Count 184 k/uL (150-450); RBC 3.88 m/uL (4.30-5.90); RDW 13.3 % (11.5-15.5); WBC 11.8 k/uL (3.8-10.6)
[2021-01-19 06:36] LABS: ALT 12 U/L (4-49); AST 23 U/L (17-59); African American GFR (CKD) 88 (>60 ml/min/1.73 sqM); Albumin 3.3 g/dL (3.5-5.0); Albumin/Globulin Ratio 1.2; Alkaline Phosphatase 73 U/L (38-126); Anion Gap 8 mmol/L; Blood Urea Nitrogen 20 mg/dL (9-20); Calcium 9.1 mg/dL (8.4-10.2); Carbon Dioxide 27 mmol/L (22-30); Chloride 100 mmol/L (98-107); Globulin 2.8 g/dL; Glucose 136 mg/dL (74-99); Magnesium 1.7 mg/dL (1.6-2.3); Non-African American GFR(CKD) 76 (>60 ml/min/1.73 sqM); Potassium 4.7 mmol/L (3.5-5.1); Sodium 135 mmol/L (137-145); Total Bilirubin 0.8 mg/dL (0.2-1.3); Total Protein 6.1 g/dL (6.3-8.2)
[2021-01-19 07:12] LABS: Glucose,Whole Blood 124 mg/dL (75-99)
[2021-01-19] MEDS: INSULIN ASPART (NovoLOG) 100 UNIT/ML VIAL SQ SCH ×4 (07:17→20:28)
[2021-01-19] MEDS: MAGNESIUM SULFATE-D5W PMX 1 GM in DEXTROSE/WATER 1 100ML.BAG IVPB SCH ×2 (08:06→12:10)
[2021-01-19] MEDS: ASPIRIN 325 MG TAB PO SCH (08:06)
[2021-01-19] MEDS: MELOXICAM 7.5 MG TAB PO SCH (08:06)
[2021-01-19] MEDS: DULoxetine HCL 60 MG CAPSULE.DR PO SCH ×2 (08:08→20:27)
[2021-01-19] MEDS: MAGNESIUM OXIDE 400 MG TAB PO SCH ×3 (08:08→20:27)
[2021-01-19] MEDS: lisinopriL 20 MG TAB PO SCH ×2 (08:08→20:27)
[2021-01-19] MEDS: METOPROLOL TARTRATE 50 MG TAB PO SCH ×3 (08:08→20:27)
[2021-01-19] MEDS: PYRIDOXINE 50 MG TAB PO SCH (08:08)
[2021-01-19] MEDS: LEVOFLOXACIN 750 MG TAB PO SCH (08:08)
[2021-01-19] MEDS: MECLIZINE 25 MG TAB PO SCH ×3 (08:08→22:01)
[2021-01-19] MEDS: diphenhydrAMINE 25 MG CAP PO SCH ×2 (08:08→20:27)
[2021-01-19] MEDS: TRIAMCINOLONE ACET 0.5% CREAM 15 GM TUBE TOPICAL SCH ×2 (08:09→20:29)
[2021-01-19] MEDS: IPRATROPIUM-ALBUTEROL 3 ML NEB INHALATION SCH ×4 (08:52→21:13)
--- NOTE | 2021-01-19 11:22 | CT ---
EXAMINATION TYPE: CT lower extremity LT w con DATE OF EXAM: 01/19/2021 COMPARISON: None HISTORY: left leg pain from hip to heel, worse through femur. Automated exposure control for dose reduction was used. Unenhanced CT of the left lower extremity was performed from the left hip through the left ankle. Bone and soft tissue windows are reviewed. CONTRAST: Performed with IV Contrast, patient injected with 100 mL of Isovue 370. FINDINGS: I don't see evidence for fracture or dislocation. Moderate degenerative narrowing medial and lateral tibiofemoral joint spaces. Patellar and intercondylar spur formation noted as well as spurring about the femoral condyles. 2.7 cm Melchor's cyst. Left hip joint space appears to be fairly well preserved f or the patient's age group. No osseous lesions present. There is a mild degenerative change about the ankle. Plantar and dorsal calcaneal spurs seen. Again no fracture is seen about the ankle. Achilles calcifications are seen. Soft tissues appear unremarkable without evidence for collection, intramuscu lar mass or inflammatory change. Vascular structures appear to opacify normally on this limited study . IMPRESSION: 1. No evidence for fracture, intraosseous lesion or soft tissue abnormality. 2. Degenerative changes about the knee with joint effusion and Melchor's cyst.
[2021-01-19] MEDS: MULTIVITAMINS, THERA 1 EACH TAB PO SCH (12:10)
[2021-01-19] MEDS: FOLIC ACID 1 MG TAB PO SCH (12:10)
[2021-01-19] MEDS: THIAMINE 100 MG TAB PO SCH (12:10)
[2021-01-19 12:17] LABS: Glucose,Whole Blood 214 mg/dL (75-99)
[2021-01-19 17:38] LABS: Glucose,Whole Blood 113 mg/dL (75-99)
--- NOTE | 2021-01-19 18:31 | P.PN ---
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 Consultation with infectious disease for leukocytosis without a source with mild fever. Patient has been initiated on IV piggyback Levaquin 750 mg for broad-spectrum coverage of antibiotic therapy with leukocytosis, fever without a source at this time. 01/18/2021 Patient seen and examined at bedside. Patient resting comfortably in bed with no acute signs of distress. Patient endorses fever, chills, exertional shortness of breath, generalized weakness left sided knee pain left-sided leg pain and chronic back pain. Patient alert and oriented 4 able to answer questions without difficulty. Review diagnostic labs mild leukocytosis with a white count 13.4 mild increase of neutrophils of 10.0; CMP sodium 137, potassium 4.8, renal function unremarkable mildly elevated glucose at 160, magnesium 1.4. CT abdomen and pelvis was obtained, patchy and nodular posterior right basilar infiltrate suspicious for pneumonia, will continue Levaquin 750 mg by mouth daily. Patient encouraged to participate with physical therapy/occupational therapy 01/19/2021 Patient seen and examined at bedside. Patient resting comfortably in bed with no acute signs of distress. Patient endorses chills, exertional shortness of breath and generalized weakness, left leg pain continuous and chronic back pain. Patient alert and oriented 4 able to answer questions without difficulty. Review diagnostic labs mild leukocytosis with the BC count of 11.8, hemoglobin and hematocrit 12.1 and 38.1, CMP unremarkable. Hemoglobin A1c 6.4. CT of left lower extremity, no evidence of fracture intraosseous lesion or soft tissue abnormality; noted degenerative changes throughout the knee with joint effusion and Melchor's cyst. Patient agreeable to [facility]dc facility for strengthening rehab, awaiting on physical therapy/occupational therapy for recommendations for placement Objective - Vital Signs Vital signs: Vital Signs Temp 98.2 F 01/19/21 12:05 Pulse 76 01/19/21 17:07 Resp 17 01/19/21 12:05 BP 103/65 01/19/21 17:50 Pulse Ox 96 01/19/21 12:05 Intake & Output 01/18/21 01/19/21 01/19/21 18:59 06:59 18:59 Intake Total 200 2750 900 Output Total 800 2100 300 Balance -600 650 600 Intake: Intake, IV Titration 1200 900 Amount Magnesium Sulfate-D5w Pmx 300 1 gm In Dextrose/Water 1 100ml.bag @ 100 mls/hr IVPB Q1H [facility] Rx#: [id number] Sodium Chloride 0.9% 1, 900 900 000 ml @ 75 mls/hr IV . [id number] [facility] Rx#:[id number] Oral 200 1550 Output: Urine 800 2100 300 Other: Voiding Method Urinal Urinal - Constitutional General appearance: Present: cooperative, morbidly obese - EENT Eyes: Present: EOMI, PERRLA ENT: Present: normal oropharynx Ears: bilateral: normal - Neck Neck: Present: normal ROM Carotids: bilateral: upstroke normal Thyroid: bilateral: normal size - Respiratory Respiratory: bilateral: diminished (Anterior and posterior lung bishop) - Cardiovascular Details: Normal sinus rhythm Heart rate: 74 Rhythm: regular Heart sounds: normal: S1, S2 - Peripheral pulses radial pulse Peripheral Pulses: bilateral: Normal dorsalis pedis Peripheral Pulses: bilateral: Normal - Gastrointestinal General gastrointestinal: Present: normal bowel sounds - Integumentary Integumentary: Present: pale - Neurologic Neurologic: Present: CNII-XII intact - Musculoskeletal Musculoskeletal: Present: generalized weakness - Psychiatric Psychiatric: Present: A&O x's 3 - Allied health notes Allied health notes reviewed: nursing (CT of the left lower extremity reviewed) - Labs CBC & Chem 7: 01/19/21 05:59 01/19/21 05:59 Labs: Abnormal Lab Results - Last 24 Hours (Table) 01/19/21 01/19/21 01/19/21 Range/Units 05:59 05:59 05:59 WBC 11.8 H (3.8-10.6) k/uL RBC 3.88 L (4.30-5.90) m/uL Hgb 12.1 L (13.0-17.5) gm/dL Hct 38.1 L (39.0-53.0) % Monocytes # 1.2 H (0-1.0) k/uL Sodium 135 L (137-145) mmol/L Glucose 136 H (74-99) mg/dL POC Glucose (mg/dL) (75-99) mg/dL Hemoglobin A1c 6.4 H (4.0-6.0) % Total Protein 6.1 L (6.3-8.2) g/dL Albumin 3.3 L (3.5-5.0) g/dL 01/19/21 01/19/21 01/19/21 Range/Units 07:10 12:15 17:37 WBC (3.8-10.6) k/uL RBC (4.30-5.90) m/uL Hgb (13.0-17.5) gm/dL Hct (39.0-53.0) % Monocytes # (0-1.0) k/uL Sodium (137-145) mmol/L Glucose (74-99) mg/dL POC Glucose (mg/dL) 124 H 214 H 113 H (75-99) mg/dL Hemoglobin A1c (4.0-6.0) % Total Protein (6.3-8.2) g/dL Albumin (3.5-5.0) g/dL Microbiology - Last 24 Hours (Table) 01/17/21 23:50 Blood Culture - Preliminary Blood No Growth after 24 hours Assessment and Plan Assessment: Altered mental status, possibly toxic metabolic encephalopathy related to sepsis and dehydration improving Leukocytosis/sepsis unknown source possibly pneumonia Acute kidney injury, improved with IV hydration paroxysmal atrial fibrillation, not on anticoagulation therapy diabetes mellitus type 2 GERD/reflux hyperlipidemia hypertension memory impairment osteoarthritis history of breast cancer chronic vertigo chronic cephalgia history of brainstem surgery for decompression for chronic dizziness history of multiple falls with fractures Obesity with a BMI of 42.5 Full code Plan: Altered mental status possible metabolic encephalopathy related to sepsis and dehydration we'll continue to monitor improved patient had neurological baseline Leukocytosis/sepsis source unclear continue consultation with infectious disease, CT abdomen and pelvis shows possible patchy of infiltrates developing pneumonia we'll continue Levaquin by mouth 750 mg Acute kidney injury resolved with IV hydration and avoidance of nephrotoxic drugs will resume lisinopril and metformin for diabetes and hypertension control Continue to monitor vital signs and diagnostic testing Continue medical management Further recommendations come based on patient's clinical condition Hopeful discharge to fdc facility within 24 hours for strengthening and conditioning Time with Patient: Greater than 30
[2021-01-19] MEDS: BACLOFEN 10 MG TAB PO PRN (19:36)
[2021-01-19 20:14] LABS: Glucose,Whole Blood 153 mg/dL (75-99)
[2021-01-19] MEDS: ATORVASTATIN 40 MG TAB PO SCH (20:27)
--- NOTE | 2021-01-19 23:40 | PN ---
PROGRESS NOTE DATE OF SERVICE: 01/19/2021 REASON FOR FOLLOWUP: Leukocytosis, fever; likely pneumonia. INTERVAL HISTORY: The patient is afebrile. The patient is breathing slightly comfortably. The patient denies having any chest pain. Did have a cough which has decreased in intensity. No vomiting. No abdominal pain or diarrhea. PHYSICAL EXAMINATION: Blood pressure is 136/74, pulse of 79, temperature 98.9. He is 93% on room air. General description is an elderly male up in the chair in no distress. RESPIRATORY SYSTEM: Unlabored breathing. Decreased intensity of breath sounds. No wheeze. HEART: S1, S2. Regular rate and rhythm. ABDOMEN: Soft. No tenderness. LABS: White count down to 11,000. Blood culture has been negative. DIAGNOSTIC IMPRESSION AND PLAN: Patient admitted to hospital with weakness in this patient who did have evidence of left lower lobe pneumonia, likely community-acquired, with overall improvement on Levaquin; to continue. MULTIPLE ANTIBIOTIC ALLERGIES. Continue supportive care. MMODL / IJN: [id number] /
[2021-01-20] MEDS: IPRATROPIUM-ALBUTEROL 3 ML NEB INHALATION SCH ×6 (01:18→19:47)
[2021-01-20] MEDS: MORPHINE SULFATE 4 MG/ML SYRINGE IV PRN ×4 (03:16→21:37)
[2021-01-20] MEDS: BUTALB/APAP/CAFF 50-325-40MG TAB PO PRN ×2 (04:44→22:56)
[2021-01-20 07:10] LABS: Glucose,Whole Blood 138 mg/dL (75-99)
--- NOTE | 2021-01-20 07:21 | P.PN ---
Subjective Progress Note Date: 01/20/21 Principal diagnosis: Altered mental status Leukocytosis/sepsis Acute renal failure Uncontrolled hypertension Community acquired pneumonia 70-year-old male with significant past medical history of paroxysmal atrial fibrillation, not on anticoagulation therapy, diabetes mellitus type 2, GERD/reflux, hyperlipidemia, hypertension, memory impairment, osteoarthritis, history of breast cancer, chronic vertigo, chronic cephalgia, history of brainstem surgery for decompression for chronic dizziness, history of multiple falls with fractures, and several comorbidities is admitted to the hospital for acute mental status changes, acute kidney injury, leukocytosis without a source with a left sided shift, elevated potassium of 5.6 with acute renal injury with creatinine 1.7 and BUN 30, mildly elevated glucose of 111 negative urinalysis and negative Covid PCR. Consultation with infectious disease for leukocytosis without a source with mild fever. Patient has been initiated on IV piggyback Levaquin 750 mg for broad-spectrum coverage of antibiotic therapy with leukocytosis, fever without a source at this time. 01/18/2021 Patient seen and examined at bedside. Patient resting comfortably in bed with no acute signs of distress. Patient endorses fever, chills, exertional shor tness of breath, generalized weakness left sided knee pain left-sided leg pain and chronic back pain. Patient alert and oriented 4 able to answer questions without difficulty. Review diagnostic labs mild leukocytosis with a white count 13.4 mild increase of neutrophils of 10.0; CMP sodium 137, potassium 4.8, renal function unremarkable mildly elevated glucose at 160, magnesium 1.4. CT abdomen and pelvis was obtained, patchy and nodular posterior right basilar infiltrate suspicious for pneumonia, will continue Levaquin 750 mg by mouth daily. Patient encouraged to participate with physical therapy/occupational therapy 01/19/2021 Patient seen and examined at bedside. Patient resting comfortably in bed with no acute signs of distress. Patient endorses chills, exertional shortness of br eath and generalized weakness, left leg pain continuous and chronic back pain. Patient alert and oriented 4 able to answer questions without difficulty. Review diagnostic labs mild leukocytosis with the BC count of 11.8, hemoglobin and hematocrit 12.1 and 38.1, CMP unremarkable. Hemoglobin A1c 6.4. CT of left lower extremity, no evidence of fracture intraosseous lesion or soft tissue abnormality; noted degenerative changes throughout the knee with joint effusion and Melchor's cyst. Patient agreeable to group home facility for strengthening rehab, awaiting on physical therapy/occupational therapy for recommendations for placement 01/20/2021 Patient seen and examined at bedside. Patient resting comfortably with no acute signs stress. Patient endorses chills, exertional shortness of breath and generalized weakness, continued left lower leg extremity discomfort and chronic back pain. Awaiting on a.m. labs for review. Reviewed CT of lower left lower extremity, degenerative changes within the knee with joint effusion and a Melchor's cyst. Warm compresses to Melchor's cyst and analgesics as needed Objective - Vital Signs Vital signs: Vital Signs Temp 98.2 F 01/20/21 04:31 Pulse 77 01/20/21 04:31 Resp 16 01/20/21 04:31 BP 144/79 01/20/21 04:31 Pulse Ox 95 01/20/21 04:31 Intake & Output 01/19/21 01/20/21 01/20/21 18:59 06:59 18:59 Intake Total 900 1500 Output Total 300 2000 Balance 600 -500 Intake: Intake, IV Titration 900 900 Amount Sodium Chloride 0.9% 1, 900 900 000 ml @ 75 mls/hr IV . [id number] [facility] Rx#:[id number] Oral 600 Output: Urine 300 2000 Other: Voiding Method Urinal - Constitutional General appearance: Present: morbidly obese - EENT Eyes: Present: EOMI, PERRLA ENT: Present: normal oropharynx Ears: bilateral: normal - Neck Neck: Present: normal ROM Carotids: bilateral: upstroke normal Thyroid: bilateral: normal size - Respiratory Respiratory: bilateral: CTA (Anterior and posterior lung bishop) - Cardiovascular Details: Normal sinus rhythm Heart rate: 74 Rhythm: regular Heart sounds: normal: S1, S2 - Peripheral edema ankle Peripheral Edema: bilateral: Trace foot Peripheral Edema: bilateral: Trace - Peripheral pulses radial pulse Peripheral Pulses: bilateral: Normal dorsalis pedis Peripheral Pulses: bilateral: Diminished - Gastrointestinal General gastrointestinal: Present: soft - Integumentary Integumentary: Present: normal turgor - Neurologic Neurologic: Present: CNII-XII intact - Musculoskeletal Musculoskeletal: Present: generalized weakness - Psychiatric Psychiatric: Present: A&O x's 3 - Allied health notes Allied health notes reviewed: nursing - Labs CBC & Chem 7: 01/19/21 05:59 01/19/21 05:59 Labs: Abnormal Lab Results - Last 24 Hours (Table) 01/19/21 01/19/21 01/19/21 Range/Units 05:59 12:15 17:37 POC Glucose (mg/dL) 214 H 113 H (75-99) mg/dL Hemoglobin A1c 6.4 H (4.0-6.0) % 01/19/21 01/20/21 Range/Units 20:13 07:08 POC Glucose (mg/dL) 153 H 138 H (75-99) mg/dL Hemoglobin A1c (4.0-6.0) % Microbiology - Last 24 Hours (Table) 01/17/21 23:50 Blood Culture - Preliminary Blood No Growth after 48 hours - Imaging and Cardiology CT of left lower extremity reviewed Assessment and Plan Assessment: Altered mental status, possibly toxic metabolic encephalopathy related to sepsis and dehydration improving Leukocytosis/sepsis possibly pneumonia Acute kidney injury, improved with IV hydration paroxysmal atrial fibrillation, not on anticoagulation therapy diabetes mellitus type 2 GERD/reflux hyperlipidemia hypertension memory impairment osteoarthritis history of breast cancer chronic vertigo chronic cephalgia history of brainstem surgery for decompression for chronic dizziness history of multiple falls with fractures Obesity with a BMI of 42.5 Full code Plan: Altered mental status possible metabolic encephalopathy related to sepsis and dehydration we'll continue to monitor improved patient had neurological baseline Leukocytosis/sepsis source unclear continue consultation with infectious disease, CT abdomen and pelvis shows possible patchy of infiltrates developing pneumonia we'll continue Levaquin by mouth 750 mg Acute kidney injury resolved with IV hydration and avoidance of nephrotoxic drugs will resume lisinopril and metformin for diabetes and hypertension control Bakers cyst left lower extremity knee warm compresses Continue to monitor vital signs and diagnostic testing Continue medical management Further recommendations come based on patient's clinical condition Hopeful discharge to group home facility within 24 hours for strengthening and conditioning Time with Patient: Greater than 30
[2021-01-20] MEDS: INSULIN ASPART (NovoLOG) 100 UNIT/ML VIAL SQ SCH ×4 (08:10→21:37)
[2021-01-20] MEDS: PYRIDOXINE 50 MG TAB PO SCH (09:55)
[2021-01-20] MEDS: MAGNESIUM OXIDE 400 MG TAB PO SCH ×3 (09:55→21:37)
[2021-01-20] MEDS: DULoxetine HCL 60 MG CAPSULE.DR PO SCH ×2 (09:56→21:36)
[2021-01-20] MEDS: MELOXICAM 7.5 MG TAB PO SCH (09:57)
[2021-01-20] MEDS: diphenhydrAMINE 25 MG CAP PO SCH ×2 (09:57→21:37)
[2021-01-20] MEDS: ASPIRIN 325 MG TAB PO SCH (09:57)
[2021-01-20] MEDS: LEVOFLOXACIN 750 MG TAB PO SCH (09:59)
[2021-01-20] MEDS: METOPROLOL TARTRATE 50 MG TAB PO SCH ×3 (10:01→21:37)
[2021-01-20] MEDS: GABAPENTIN 100 MG CAP PO SCH ×2 (10:02→21:37)
[2021-01-20] MEDS: MECLIZINE 25 MG TAB PO SCH ×3 (10:03→21:36)
[2021-01-20] MEDS: lisinopriL 20 MG TAB PO SCH ×2 (10:03→21:37)
[2021-01-20] MEDS: TRIAMCINOLONE ACET 0.5% CREAM 15 GM TUBE TOPICAL SCH ×2 (10:09→21:41)
[2021-01-20 11:12] LABS: Glucose,Whole Blood 154 mg/dL (75-99)
[2021-01-20] MEDS: THIAMINE 100 MG TAB PO SCH (12:50)
[2021-01-20] MEDS: FOLIC ACID 1 MG TAB PO SCH (12:50)
[2021-01-20] MEDS: MULTIVITAMINS, THERA 1 EACH TAB PO SCH (12:50)
[2021-01-20 17:23] LABS: Glucose,Whole Blood 180 mg/dL (75-99)
[2021-01-20] MEDS: SODIUM CHLORIDE 0.9% 1,000 ML IV SCH ×2 (17:24→18:08)
[2021-01-20] MEDS: BACLOFEN 10 MG TAB PO PRN (19:47)
--- NOTE | 2021-01-20 20:07 | PN ---
PROGRESS NOTE DATE OF SERVICE: 01/20/2021 REASON FOR FOLLOW UP: Pneumonia. INTERVAL COURSE: The patient is afebrile. The patient is currently breathing comfortably on room air. The patient denies any chest pain. He did have a cough, not bringing up any sputum. No abdominal pain, no diarrhea. PHYSICAL EXAMINATION: Blood pressure 106/57, pulse of 75, temperature is 98.4. He is 94% on room air. General description is an elderly male lying in bed in no distress. Respiratory system: Unlabored breathing, decreased intensity of breath sounds, no wheeze. Heart S1, S2. Regular rate and rhythm. Abdomen soft, no tenderness. LABS: Magnesium 1.9. Blood culture has been negative. DIAGNOSTIC IMPRESSION AND PLAN: Patient with elevated white count secondary to pneumonia seen on the CT. Multiple antibiotic allergies. The patient is currently covered with Levaquin, to continue to finish a course of therapy. Continue supportive care. MMODL / IJN: [id number] / MTDD
[2021-01-20 20:52] LABS: Glucose,Whole Blood 169 mg/dL (75-99)
[2021-01-20] MEDS: ATORVASTATIN 40 MG TAB PO SCH (21:37)
[2021-01-21] MEDS: IPRATROPIUM-ALBUTEROL 3 ML NEB INHALATION SCH ×5 (00:59→17:46)
[2021-01-21] MEDS: MORPHINE SULFATE 4 MG/ML SYRINGE IV PRN ×2 (01:35→06:15)
[2021-01-21 06:15] LABS: Basophils % (A) 0 %; Eosinophils # (A) 0.5 k/uL (0-0.7); Eosinophils % (A) 5 %; HGB 11.6 gm/dL (13.0-17.5); Lymphocytes # (A) 2.2 k/uL (1.0-4.8); Lymphocytes % (A) 24 %; MCH 30.6 pg (25.0-35.0); MCHC 31.4 g/dL (31.0-37.0); MCV 97.2 fL (80.0-100.0); Mean Platelet Volume 8.1; Monocytes # (A) 0.6 k/uL (0-1.0); Monocytes % (A) 6 %; Neutrophils # (A) 5.5 k/uL (1.3-7.7); Neutrophils % (A) 62 %; Platelet Count 239 k/uL (150-450); WBC 8.9 k/uL (3.8-10.6)
[2021-01-21 06:45] LABS: ALT 21 U/L (4-49); AST 26 U/L (17-59); African American GFR (CKD) 86 (>60 ml/min/1.73 sqM); Albumin 3.5 g/dL (3.5-5.0); Albumin/Globulin Ratio 1.3; Alkaline Phosphatase 85 U/L (38-126); Anion Gap 8 mmol/L; Blood Urea Nitrogen 24 mg/dL (9-20); Calcium 9.3 mg/dL (8.4-10.2); Carbon Dioxide 27 mmol/L (22-30); Chloride 102 mmol/L (98-107); Globulin 2.8 g/dL; Glucose 126 mg/dL (74-99); Magnesium 1.8 mg/dL (1.6-2.3); Non-African American GFR(CKD) 74 (>60 ml/min/1.73 sqM); Potassium 4.5 mmol/L (3.5-5.1); Sodium 137 mmol/L (137-145); Total Bilirubin 0.4 mg/dL (0.2-1.3); Total Protein 6.3 g/dL (6.3-8.2)
[2021-01-21 07:34] LABS: Glucose,Whole Blood 122 mg/dL (75-99)
[2021-01-21] MEDS: INSULIN ASPART (NovoLOG) 100 UNIT/ML VIAL SQ SCH ×3 (07:52→17:45)
[2021-01-21] MEDS: TRIAMCINOLONE ACET 0.5% CREAM 15 GM TUBE TOPICAL SCH (08:40)
[2021-01-21 08:41] VITALS: BMI 33.0
[2021-01-21] MEDS: MECLIZINE 25 MG TAB PO SCH ×2 (10:16→15:13)
[2021-01-21] MEDS: diphenhydrAMINE 25 MG CAP PO SCH (10:17)
[2021-01-21] MEDS: MAGNESIUM OXIDE 400 MG TAB PO SCH ×2 (10:17→15:13)
[2021-01-21] MEDS: lisinopriL 20 MG TAB PO SCH (10:18)
[2021-01-21] MEDS: GABAPENTIN 100 MG CAP PO SCH (10:18)
[2021-01-21] MEDS: DULoxetine HCL 60 MG CAPSULE.DR PO SCH (10:20)
[2021-01-21] MEDS: PYRIDOXINE 50 MG TAB PO SCH (10:20)
[2021-01-21] MEDS: ASPIRIN 325 MG TAB PO SCH (10:20)
[2021-01-21] MEDS: METOPROLOL TARTRATE 50 MG TAB PO SCH ×2 (10:21→15:13)
[2021-01-21] MEDS: MELOXICAM 7.5 MG TAB PO SCH (10:24)
[2021-01-21] MEDS: LEVOFLOXACIN 750 MG TAB PO SCH (10:44)
[2021-01-21] MEDS: THIAMINE 100 MG TAB PO SCH (10:47)
[2021-01-21] MEDS: FOLIC ACID 1 MG TAB PO SCH (10:47)
[2021-01-21] MEDS: MULTIVITAMINS, THERA 1 EACH TAB PO SCH (10:47)
[2021-01-21] MEDS: BACLOFEN 10 MG TAB PO PRN (11:07)
[2021-01-21] MEDS: BUTALB/APAP/CAFF 50-325-40MG TAB PO PRN (11:07)
[2021-01-21 12:53] LABS: Glucose,Whole Blood 129 mg/dL (75-99)
[2021-01-21 13:23] VITALS: RESP 18; TEMP 97.7
[2021-01-21 15:16] VITALS: BP 152/85; PULSE 71
[2021-01-21 15:21] LABS: Glucose,Whole Blood 153 mg/dL (75-99)
--- NOTE | 2021-01-21 17:23 | PN ---
PROGRESS NOTE DATE OF SERVICE: 01/21/2021 REASON FOR FOLLOWUP: Pneumonia. INTERVAL HISTORY: The patient is afebrile. The patient is breathing more comfortably. Patient denies having any chest pain, shortness of breath. Occasional cough. No abdominal pain, no diarrhea. PHYSICAL EXAMINATION: Blood pressure 150/85, pulse of 71, temperature 97.7. He is 94% on room air. General description is an elderly male up in the bed in no distress. Respiratory system: Unlabored breathing, decreased intensity of breath sounds, no wheeze. Heart S1, S2. Regular rate and rhythm. Abdomen soft, no tenderness. LABS: Hemoglobin is 11.8, white count 8.9, creatinine 1.02. DIAGNOSTIC IMPRESSION AND PLAN: Patient with elevated white count, possibly related to pneumonia, community-acquired with overall improvement on Levaquin to continue for another five days to finish a course of therapy. Continue supportive care. MMODL / IJN: [id number] /
[2021-01-21 17:45] LABS: Glucose,Whole Blood 157 mg/dL (75-99)
--- NOTE | 2021-01-21 18:47 | P.DS ---
Providers Date of admission: 01/15/21 00:52 Expected date of discharge: 01/21/21 Attending physician: Damon Rodriguez Consults: 01/15/21 16:01 Consult Physician Routine Consulting Provider: Rani Chan Consult Reason/Comments: leukocytosis Do you want consulting provider notified?: Yes Primary care physician: Damon Rodriguez Hospital Course: 70-year-old male with significant past medical history of paroxysmal atrial fibrillation, not on anticoagulation therapy, diabetes mellitus type 2, GERD/reflux, hyperlipidemia, hypertension, memory impairment, osteoarthritis, history of breast cancer, chronic vertigo, chronic cephalgia, history of brainstem surgery for decompression for chronic dizziness, history of multiple falls with fractures, and several comorbidities is admitted to the hospital for acute mental status changes, acute kidney injury, leukocytosis without a source with a left sided shift, elevated potassium of 5.6 with acute renal injury with creatinine 1.7 and BUN 30, mildly elevated glucose of 111 negative urinalysis and negative Covid PCR. Consultation with infectious disease for leukocytosis without a source with mild fever. Leukocytosis was found to have a source of pneumonia treated with Levaquin 750 mg patient improved throughout hospital stay. Acute kidney injury improved with avoidance of nephrotoxic drugs and IV hydration. Patient was evaluated by physical therapy and occupational therapy for [facility] rehab, patient adamantly refuse rehab or extended stay as [facility]dc home or additional resources. Patient will be discharged with guarded prognosis due to multiple comorbidities. Assessment: Altered mental status, possibly toxic metabolic encephalopathy related to sepsis and dehydration improving Leukocytosis/sepsis possibly pneumonia Acute kidney injury, improved with IV hydration paroxysmal atrial fibrillation, not on anticoagulation therapy diabetes mellitus type 2 GERD/reflux hyperlipidemia hypertension memory impairment osteoarthritis history of breast cancer chronic vertigo chronic cephalgia history of brainstem surgery for decompression for chronic dizziness history of multiple falls with fractures Obesity with a BMI of 42.5 Full code Final diagnosis Altered mental status secondary to metabolic encephalopathy, secondary to sepsis improved, patient had normal baseline Pneumonia, treated with Levaquin Acute kidney injury improved with IV hydration and avoidance of nephrotoxic drugs for 2 days. Patient placed back on lisinopril metformin renal function improved Health Concerns: Multiple comorbidities Complexity of medical treatment plan Poor medical compliance Pertinent Studies: CT of the brain, no acute intracranial processes noted cxr, no acute cardiopulmonary processes noted CT abdomen and pelvis, showed possible patchy nodular infiltrate suspicious of known pneumonia correlated with patient's fever and leukocytosis Procedures: No procedures performed during hospital stay Patient Condition at Discharge: Poor Plan - Discharge Summary New Discharge Prescriptions: Continue metFORMIN HCL [Glucophage] 500 mg PO BID Metoprolol Tartrate [Lopressor] 50 mg PO TID DULoxetine HCL [Cymbalta] 60 mg PO BID Baclofen [Lioresal] 20 mg PO BID PRN #6 tab PRN Reason: Muscle Spasm Folic Acid 1 mg PO DAILY@1200 #30 tab Magnesium Oxide [Mag-Ox] 400 mg PO TID #90 tab Thiamine [Vitamin B-1] 100 mg PO DAILY@1200 #30 tab Aspirin EC [Ecotrin] 325 mg PO DAILY Pyridoxine [Vitamin B-6] 50 mg PO DAILY #30 tab Atorvastatin [Lipitor] 40 mg PO HS lisinopriL 20 mg PO BID Butalb/APAP/Caff 50-325-40Mg [Fioricet 50-325-40] 1 tab PO TID PRN #9 tab PRN Reason: Migraine Headache Gabapentin [Neurontin] 300 mg PO BID #6 cap Meclizine [Antivert] 25 mg PO TID #90 tab diphenhydrAMINE HCL [Benadryl] 25 mg PO BID Triamcinolone 0.1% Ointment [Kenalog 0.1% Ointment] 1 applic TOPICAL BID Multivitamins, Thera [Multivitamin (formulary)] 1 tab PO DAILY@1200 Meloxicam [Mobic] 15 mg PO DAILY #14 tab Discharge Medication List metFORMIN HCL [Glucophage] 500 mg PO BID 12/17/18 [History] Metoprolol Tartrate [Lopressor] 50 mg PO TID 11/06/19 [History] Atorvastatin [Lipitor] 40 mg PO HS 06/18/20 [History] DULoxetine HCL [Cymbalta] 60 mg PO BID 06/18/20 [History] Baclofen [Lioresal] 20 mg PO BID PRN #6 tab 07/07/20 [Rx] lisinopriL 20 mg PO BID 10/11/20 [History] Butalb/APAP/Caff 50-325-40Mg [Fioricet 50-325-40] 1 tab PO TID PRN #9 tab 10/22/20 [Rx] Gabapentin [Neurontin] 300 mg PO BID #6 cap 10/22/20 [Rx] Folic Acid 1 mg PO DAILY@1200 #30 tab 12/23/20 [Rx] Magnesium Oxide [Mag-Ox] 400 mg PO TID #90 tab 12/23/20 [Rx] Meclizine [Antivert] 25 mg PO TID #90 tab 12/23/20 [Rx] Thiamine [Vitamin B-1] 100 mg PO DAILY@1200 #30 tab 12/23/20 [Rx] Aspirin EC [Ecotrin] 325 mg PO DAILY 01/09/21 [History] Multivitamins, Thera [Multivitamin (formulary)] 1 tab PO DAILY@1200 01/09/21 [History] Triamcinolone 0.1% Ointment [Kenalog 0.1% Ointment] 1 applic TOPICAL BID 01/09/21 [History] diphenhydrAMINE HCL [Benadryl] 25 mg PO BID 01/09/21 [History] Meloxicam [Mobic] 15 mg PO DAILY #14 tab 01/12/21 [Rx] Pyridoxine [Vitamin B-6] 50 mg PO DAILY #30 tab 01/12/21 [Rx] Follow up Appointment(s)/Referral(s): Damon Rodriguez MD [Primary Care Provider] - 1-2 days [facility], [NON-STAFF] - 1 Week Patient Instructions/Handouts: Acute Kidney Injury (DC), Weakness (DC), Pneumonia (DC) Discharge Disposition: HOME WITH HOME HEALTH SERVICES
== END 2021-01-21 18:18 | disposition home health service (06) | DRG 871 ==
LOC: EC 21:37 → 5NMEDONC 01-15 00:52
PROVIDERS: ADMIT Family Medicine; ATTEND Family Medicine
DX: A41.9 Sepsis, unspecified organism (principal); J18.9 Pneumonia, unspecified organism; N17.9 Acute kidney failure, unspecified; Z68.41 Body mass index [BMI] 40.0-44.9, adult; G92.00 Immune effector cell-associated neurotoxicity syndrome, grade unspecified; E11.65 Type 2 diabetes mellitus with hyperglycemia; E66.9 Obesity, unspecified; E78.5 Hyperlipidemia, unspecified; E86.0 Dehydration; F03.90 Unspecified dementia, unspecified severity, without behavioral disturbance, psychotic disturbance, mood disturbance, and anxiety; G89.29 Other chronic pain; M79.605 Pain in left leg; R51.9 Headache, unspecified; I10 Essential (primary) hypertension; I48.0 Paroxysmal atrial fibrillation; K21.9 Gastro-esophageal reflux disease without esophagitis; M19.90 Unspecified osteoarthritis, unspecified site; M71.20 Synovial cyst of popliteal space [Baker], unspecified knee; M17.12 Unilateral primary osteoarthritis, left knee; R65.20 Severe sepsis without septic shock; S09.90XA Unspecified injury of head, initial encounter; I27.20 Pulmonary hypertension, unspecified; Z20.822 Contact with and (suspected) exposure to COVID-19; Z85.3 Personal history of malignant neoplasm of breast; R41.3 Other amnesia; R42 Dizziness and giddiness; Z79.1 Long term (current) use of non-steroidal anti-inflammatories (NSAID); R29.6 Repeated falls; Z79.82 Long term (current) use of aspirin; Z79.84 Long term (current) use of oral hypoglycemic drugs; Z79.899 Other long term (current) drug therapy; Z82.49 Family history of ischemic heart disease and other diseases of the circulatory system; Z87.891 Personal history of nicotine dependence; Z88.0 Allergy status to penicillin; Z88.1 Allergy status to other antibiotic agents; Z90.13 Acquired absence of bilateral breasts and nipples; Z91.81 History of falling; Z98.890 Other specified postprocedural states; Z87.81 Personal history of (healed) traumatic fracture
CPT/HCPCS: 36415; 70450; 71045; 71046; 74177; 80048; 80053; 81001; 83036; 83605; 83735; 83880; 84100; 84145; 84484; 85025; 85610; 85730; 86140; 87040; 87635; 93005; 94640; 99285

== ENCOUNTER 2021-02-28 10:57 | Observation (INO) | payer MEDICARE ==
[2021-02-28 11:13] LABS: Glucose,Whole Blood 132 mg/dL (75-99)
[2021-02-28] MEDS ORDERED: SODIUM CHLORIDE 0.9% 1,000 ML IV STA (11:33)
--- NOTE | 2021-02-28 11:42 | ED ---
General Adult HPI - General Chief complaint: Altered Mental Status Stated complaint: Altered mental Time Seen by Provider: 02/28/21 11:13 Source: patient Mode of arrival: EMS Limitations: no limitations - History of Present Illness Initial comments: Dictation was produced using [employer] dictation software. please excuse any grammatical, word or spelling errors. Chief Complaint: 70-year-old male presents emergency department for altered mental status History of Present Illness: Patient is a 70-year-old male presents emergency department for altered mental status. He is accompanied by his grandson who is also EMS. Patient allegedly was at home. His phone show signs of altered mentation since yesterday. Patient unable to provide a prone sent illness secondary to mental status. Son who is one of the EMS workers is not very f amiliar with his medical history. Margareth knows that patient has seen a specialist at [facility] for some sort of pain stem issue. He's been the hospital for this situation multiple occasions in the past. Margareth reports that patient relates the result of either urinary tract infection or dehydration. Chart review shows that patient was admitted here to the hospital back in December for similar issue. Present with mental status changes. At that time he had acute kidney injury and metabolic encephalopathy. Diagnosed with pneumonia at that time. The ROS documented in this emergency department record has been reviewed and confirmed by me. Those systems with pertinent positive or negative responses have been documented in the HPI. All other systems are other negative and/or n oncontributory. PHYSICAL EXAM: General Impression: Alert and oriented x2/4, not in acute distress, eyes closed but opens his eyes with verbal stimuli HEENT: Normocephalic atraumatic, extra-ocular movements intact, pupils equal and reactive to light bilaterally, mucous membranes moist. Cardiovascular: Heart regular rate and rhythm Chest: Able to complete full sentences, no retractions, no tachypnea Abdomen: abdomen soft, non-tender, non-distended, no organomegaly Musculoskeletal: Pulses present and equal in all extremities, no peripheral edema Motor: no focal deficits noted Neurological: CN II-XII grossly intact, moves all extremities with painful stimuli to all extremities Skin: Intact with no visualized rash Psych: Normal affect and mood ED course: 70-year-old male presents to the emergency department for altered mental status. Signs upon arrival are within acceptable limits. Patient is confused. He is had recent history of similar presentation Computed tomography scan of the brain shows no acute processes. CT angiogram of the head and neck shows no acute processes. Laboratory evaluation obtained. CBC is unremarkable. Coag panel is negative. Metabolic panel is within acceptable range there is mild hypomagnesemia at 1.5. Patient on acidotic. Chest x-ray is nonacute. At this point is unclear what is causing patient's mental status changes. Case discussed with Dr. Zarate who is willing to accept patient's care. Neurology will be consulted. Patient reevaluated at the bedside, found to be in stable medical condition. He is resting comfortably at the bedside. EKG interpretation: Ventricular rate 54, sinus bradycardia,. 184, QRS 84, QTC 45. No MD prolongation, no QTC prolongation, no ST or T-wave changes noted. EKG compared to 01/14/2021 showing no changes. Overall, this EKG is unremarkable - Related Data Home Medications Medication Instructions Recorded Confirmed metFORMIN HCL [Glucophage] 500 mg PO BID 12/17/18 02/28/21 Metoprolol Tartrate [Lopressor] 50 mg PO TID 11/06/19 02/28/21 Atorvastatin [Lipitor] 40 mg PO HS 06/18/20 02/28/21 DULoxetine HCL [Cymbalta] 60 mg PO BID 06/18/20 02/28/21 lisinopriL [Prinivil] 20 mg PO BID 10/11/20 02/28/21 Aspirin EC [Ecotrin] 325 mg PO DAILY 01/09/21 02/28/21 Multivitamins, Thera [Multivitamin 1 tab PO DAILY@1200 01/09/21 02/28/21 (formulary)] Triamcinolone 0.1% Ointment 1 applic TOPICAL BID 01/09/21 02/28/21 [Kenalog 0.1% Ointment] diphenhydrAMINE HCL [Benadryl] 25 mg PO BID 01/09/21 02/28/21 Meloxicam [Mobic] 7.5 mg PO BID 02/28/21 02/28/21 Previous Rx's Medication Instructions Recorded Baclofen [Lioresal] 20 mg PO BID PRN #6 tab 07/07/20 Butalb/APAP/Caff 50-325-40Mg 1 tab PO TID PRN #9 tab 10/22/20 [Fioricet 50-325-40] Gabapentin [Neurontin] 300 mg PO BID #6 cap 10/22/20 Folic Acid 1 mg PO DAILY@1200 #30 tab 12/23/20 Magnesium Oxide [Mag-Ox] 400 mg PO TID #90 tab 12/23/20 Meclizine [Antivert] 25 mg PO TID #90 tab 12/23/20 Thiamine [Vitamin B-1] 100 mg PO DAILY@1200 #30 tab 12/23/20 Pyridoxine [Vitamin B-6] 50 mg PO DAILY #30 tab 01/12/21 Allergies Allergy/AdvReac Type Severity Reaction Status Date / Time cephalexin monohydrate Allergy Anaphylaxis Verified 02/28/21 12:57 [From Keflex] Cephalosporins Allergy Anaphylaxis Verified 02/28/21 12:57 Penicillins Allergy Anaphylaxis Verified 02/28/21 12:57 Review of Systems ROS Statement: Those systems with pertinent positive or pertinent negative responses have been documented in the HPI. ROS Other: All systems not noted in ROS Statement are negative. Past Medical History Past Medical History: Atrial Fibrillation, Cancer, Diabetes Mellitus, GERD/Re flux, Hyperlipidemia, Hypertension, Memory Impairment, Osteoarthritis (OA), Pneumonia Additional Past Medical History / Comment(s): FELL 07/09/19 FX LT RADIUS, FREQUENT FALLS-REASON UNKNOWN. 03-10-16 FELL/FX RT FIBULA, VERTIGO , chronic headaches, BREAST CANCER History of Any Multi-Drug Resistant Organisms: CRE, MRSA Date of last positivie culture/infection: MRSA-03/11 MDRO Source:: Source unknown-MRSA Past Surgical History: Back Surgery, Breast Surgery, Orthopedic Surgery Additional Past Surgical History / Comment(s): Bilateral mastectomy with right sided lymp node removal due to cancer, R knee cap removed, Back surgery for herniated disc., Brain stem surgery for decompression-for dizziness, right ankle ORIF, bilateral wrist fractures SX Past Anesthesia/Blood Transfusion Reactions: No Reported Reaction Past Psychological History: No Psychological Hx Reported Smoking Status: Former smoker Past Alcohol Use History: None Reported Past Drug Use History: None Reported - Past Family History Father History Unknown: Yes Family Medical History: Congestive Heart Failure (CHF) Additional Family Medical History / Comment(s): at 68. Mother History Unknown: Yes Family Medical History: Hypertension Additional Family Medical History / Comment(s): Pulmonary hypertension. at 78. General Exam Limitations: no limitations Course Vital Signs 02/28/21 02/28/21 02/28/21 10:58 12:53 14:12 Temperature 98.7 F Pulse Rate 56 L 60 56 L Respiratory 22 20 22 Rate Blood Pressure 128/72 132/74 124/95 O2 Sat by Pulse 99 96 98 Oximetry Medical Decision Making - Lab Data Result diagrams: 02/28/21 11:35 02/28/21 11:35 Lab Results 02/28/21 02/28/21 02/28/21 Range/Units 11:11 11:35 11:35 WBC (3.8-10.6) k/uL RBC (4.30-5.90) m/uL Hgb (13.0-17.5) gm/dL Hct (39.0-53.0) % MCV (80.0-100.0) fL MCH (25.0-35.0) pg MCHC (31.0-37.0) g/dL RDW (11.5-15.5) % Plt Count (150-450) k/uL MPV Neutrophils % % Lymphocytes % % Monocytes % % Eosinophils % % Basophils % % Neutrophils # (1.3-7.7) k/uL Lymphocytes # (1.0-4.8) k/uL Monocytes # (0-1.0) k/uL Eosinophils # (0-0.7) k/uL Basophils # (0-0.2) k/uL PT (9.0-12.0) sec INR (<1.2) APTT (22.0-30.0) sec Sodium 140 (137-145) mmol/L Potassium 5.3 H (3.5-5.1) mmol/L Chloride 103 (98-107) mmol/L Carbon Dioxide 27 (22-30) mmol/L Anion Gap 10 mmol/L BUN 27 H (9-20) mg/dL Creatinine 1.36 H (0.66-1.25) mg/dL Est GFR (CKD-EPI)AfAm 61 (>60 ml/min/1.73 sqM) Est GFR (CKD-EPI)NonAf 52 (>60 ml/min/1.73 sqM) Glucose 129 H (74-99) mg/dL POC Glucose (mg/dL) 132 H (75-99) mg/dL POC Glu Leading Firefighter ID Wale Stark Plasma Lactic Acid Balaji 1.3 (0.7-2.0) mmol/L Calcium 9.5 (8.4-10.2) mg/dL Ionized Calcium Jan 5.0 (4.5-5.3) mg/dL Magnesium 1.5 L (1.6-2.3) mg/dL Total Bilirubin 0.3 (0.2-1.3) mg/dL AST 18 (17-59) U/L ALT 15 (4-49) U/L Alkaline Phosphatase 44 (38-126) U/L Ammonia <9 (<30) umol/L Troponin I (0.000-0.034) ng/mL Total Protein 6.2 L (6.3-8.2) g/dL Albumin 3.7 (3.5-5.0) g/dL Acetaminophen <10.0 ug/mL Serum Alcohol <10 mg/dL 02/28/21 02/28/21 02/28/21 Range/Units 11:35 11:35 11:35 WBC 7.4 (3.8-10.6) k/uL RBC 3.60 L (4.30-5.90) m/uL Hgb 11.4 L (13.0-17.5) gm/dL Hct 33.9 L (39.0-53.0) % MCV 94.1 (80.0-100.0) fL MCH 31.6 (25.0-35.0) pg MCHC 33.6 (31.0-37.0) g/dL RDW 14.3 (11.5-15.5) % Plt Count 203 (150-450) k/uL MPV 8.1 Neutrophils % 61 % Lymphocytes % 27 % Monocytes % 6 % Eosinophils % 3 % Basophils % 0 % Neutrophils # 4.5 (1.3-7.7) k/uL Lymphocytes # 2.0 (1.0-4.8) k/uL Monocytes # 0.5 (0-1.0) k/uL Eosinophils # 0.2 (0-0.7) k/uL Basophils # 0.0 (0-0.2) k/uL PT 10.0 (9.0-12.0) sec INR 0.9 (<1.2) APTT 26.3 (22.0-30.0) sec Sodium (137-145) mmol/L Potassium (3.5-5.1) mmol/L Chloride (98-107) mmol/L Carbon Dioxide (22-30) mmol/L Anion Gap mmol/L BUN (9-20) mg/dL Creatinine (0.66-1.25) mg/dL Est GFR (CKD-EPI)AfAm (>60 ml/min/1.73 sqM) Est GFR (CKD-EPI)NonAf (>60 ml/min/1.73 sqM) Glucose (74-99) mg/dL POC Glucose (mg/dL) (75-99) mg/dL POC Glu Leading Firefighter ID Plasma Lactic Acid Balaji (0.7-2.0) mmol/L Calcium (8.4-10.2) mg/dL Ionized Calcium Jan (4.5-5.3) mg/dL Magnesium (1.6-2.3) mg/dL Total Bilirubin (0.2-1.3) mg/dL AST (17-59) U/L ALT (4-49) U/L Alkaline Phosphatase (38-126) U/L Ammonia (<30) umol/L Troponin I <0.012 (0.000-0.034) ng/mL Total Protein (6.3-8.2) g/dL Albumin (3.5-5.0) g/dL Acetaminophen ug/mL Serum Alcohol mg/dL Disposition Clinical Impression: Encephalopathy acute Disposition: ADMITTED IP TO THIS HOSP Condition: Fair Referrals: Damon Rodriguez MD [Primary Care Provider] - 1-2 days
[2021-02-28] MEDS ORDERED: MORPHINE SULFATE 4 MG/ML SYRINGE IV STA (11:49)
[2021-02-28 11:58] LABS: Basophils % (A) 0 %; Eosinophils # (A) 0.2 k/uL (0-0.7); Eosinophils % (A) 3 %; HCT 33.9 % (39.0-53.0); HGB 11.4 gm/dL (13.0-17.5); Lymphocytes % (A) 27 %; MCH 31.6 pg (25.0-35.0); MCHC 33.6 g/dL (31.0-37.0); MCV 94.1 fL (80.0-100.0); Mean Platelet Volume 8.1; Monocytes # (A) 0.5 k/uL (0-1.0); Monocytes % (A) 6 %; Neutrophils # (A) 4.5 k/uL (1.3-7.7); Neutrophils % (A) 61 %; Platelet Count 203 k/uL (150-450); RDW 14.3 % (11.5-15.5); WBC 7.4 k/uL (3.8-10.6)
[2021-02-28 12:06] LABS: Lactic Acid, Venous 1.3 mmol/L (0.7-2.0)
[2021-02-28 12:07] LABS: INR 0.9 (<1.2); Partial Thromboplastin Time 26.3 sec (22.0-30.0)
[2021-02-28 12:11] LABS: ALT 15 U/L (4-49); AST 18 U/L (17-59); Acetaminophen <10.0 ug/mL; African American GFR (CKD) 61 (>60 ml/min/1.73 sqM); Albumin 3.7 g/dL (3.5-5.0); Alcohol <10 mg/dL; Alkaline Phosphatase 44 U/L (38-126); Anion Gap 10 mmol/L; Blood Urea Nitrogen 27 mg/dL (9-20); Calcium 9.5 mg/dL (8.4-10.2); Carbon Dioxide 27 mmol/L (22-30); Chloride 103 mmol/L (98-107); Glucose 129 mg/dL (74-99); Magnesium 1.5 mg/dL (1.6-2.3); Non-African American GFR(CKD) 52 (>60 ml/min/1.73 sqM); Potassium 5.3 mmol/L (3.5-5.1); Sodium 140 mmol/L (137-145); Total Bilirubin 0.3 mg/dL (0.2-1.3); Total Protein 6.2 g/dL (6.3-8.2)
--- NOTE | 2021-02-28 13:00 | XR ---
EXAMINATION TYPE: XR chest 1V portable DATE OF EXAM: 02/28/2021 COMPARISON: Chest x-ray 01/18/2021 HISTORY: Altered mental status, trauma TECHNIQUE: Single frontal view of the chest is obtained. FINDINGS: There are overlying artifacts. Right hemidiaphragm remains elevated. Cardiac mediastinal s ilhouette is stable. No evident pneumothorax or pleural effusion. Some subsegmental basilar atelectat ic changes or scarring suspected. No evident fracture, there is a spinal curvature. IMPRESSION: Some minimal basilar atelectasis or scarring suspected.
--- NOTE | 2021-02-28 13:15 | CT ---
EXAMINATION TYPE: CT brain aubrey joshua DATE OF EXAM: 02/28/2021 COMPARISON: 01/14/2021 HISTORY: Fall, altered mental status CT DLP: [address] of the brain was performed. The ventricles, basal cisterns and sulci overlying the cerebral convexities demonstrate enlargement. There is no evidence for intracranial hemorrhage or sulcal effacement. There is decreased attenuatio n about the periventricular white matter and deep white matter of both cerebral hemispheres, compatib le with chronic small vessel ischemia. No mass effects are seen. If symptoms persist consider MRI. Osseous calvarium is intact. IMPRESSION: 1. Age related atrophic and chronic small vessel ischemic change without acute intracranial process seen at this time. CT Cervical Spine: Unenhanced CT of the cervical spine was performed with bone and soft tissue window settings submitted . Coronal and sagittal reconstruction is obtained. There is normal alignment and prevertebral soft tissues. No evidence for acute cervical fracture . Scattered degenerative disc disease and spondylosis. Biapical scarring. IMPRESSION: 1. No evidence for acute fracture or subluxation of the cervical spine.
--- NOTE | 2021-02-28 13:19 | CT ---
EXAMINATION TYPE: CT angio head neck DATE OF EXAM: 02/28/2021 HISTORY: Fall, altered mental status COMPARISON: CTA head and neck February 14, 2020 CT DLP: 859.2 mGycm. Automated Exposure Control for Dose Reduction was Utilized. TECHNIQUE: CTA scan of the head and neck are performed with IV Contrast, patient injected with 65 mL of Isovue 370, axial images are obtained, coronal and sagittal reformatted images are reviewed. 3D r econstructed images are created on an independent workstation and reviewed. FINDINGS: Carotid/Vascular Structures: Bovine-type aortic arch redemonstrated mild calcified plaque in the arch . No significant plaque or stenosis in the arch vessels. Normal origin right common carotid artery fr om right brachiocephalic artery. No significant plaque or stenosis along the common carotid arteries bilaterally. Moderate peripheral mixed plaque in the right carotid bulb extends into proximal interna l carotid artery without significant stenosis. Mild to moderate mixed plaque left carotid bulb extend s into proximal internal carotid artery without significant stenosis. No significant change from prio r. Patent external carotid arteries bilaterally without significant plaque or stenosis. Codominant vertebral arteries patent to basilar junction. No significant focal stenosis or aneurysm i n the posterior circulation. Patent anterior communicating artery series 605 image 26 redemonstrated. No significant focal stenosis or aneurysm in the anterior circulation. Mild calcified plaque distal internal carotid arteries bilaterally redemonstrated. Other: Large bridging anterior osteophytes mid to lower cervical spine and upper thoracic spine redem onstrated. Nasal septum remains deviated to the right of midline inferiorly. IMPRESSION: No significant stenosis in common or internal carotid arteries bilaterally. No significa nt stenosis or aneurysm at the level of the [place]. No significant change from recent CTA. NASCET criteria was used in interpretation of this exam?
[2021-02-28] MEDS: MAGNESIUM SULFATE-D5W PMX 1 GM in DEXTROSE/WATER 1 100ML.BAG IVPB SCH ×2 (14:58→15:55)
[2021-02-28] MEDS ORDERED: NALOXONE 0.4 MG/ML 1 ML VIAL IV PRN (14:59)
[2021-02-28] MEDS: SODIUM CHLORIDE 0.9% 1,000 ML IV SCH ×2 (15:55→23:09)
[2021-02-28] MEDS: MAGNESIUM OXIDE 400 MG TAB PO SCH (21:08)
[2021-02-28] MEDS: ATORVASTATIN 40 MG TAB PO SCH (21:08)
[2021-02-28] MEDS: HEPARIN SODIUM,PORCINE/PF 5,000 UNIT/0.5 ML SYRINGE SQ SCH (21:09)
--- NOTE | 2021-02-28 23:23 | P.HPIM ---
History of Present Illness H&P Date: 02/28/21 Chief Complaint: altered mental status Patient is a 70-year-old male with a known history of atrial fibrillation currently not on any anticoagulation, hypertension, hyperlipidemia, GERD, memory impairment, osteoarthritis and history of frequent falls chronic headaches and history of breast cancer status post bilateral mastectomy, brainstem surgery for decompression and previous history of smoking and other multiple medical problems was brought to ER due to altered mental status.. Patient has been altered since yesterday and unable to provide any history at this time. Patient's grandson notes that patient has seen a specialist at [facility] due to pain issue. Patient has been in the hospital previously due to altered mental status. Patient did have urinary tract infection and dehydration at the time. During previous admission in December 2020 due to pneumonia and dehydration.. Chest x-ray showed some minimal basilar atelectasis/scarring suspected. CT head and cervical spine showed age-related atrophic and chronic small vessel ischemic change without acute intracranial process seen at this time. CT cervical spine showed unenhanced CT of the cervical spine was performed with bone and soft tissue window settings submitted. No evidence of acute fracture or dislocation or subluxation of the cervical spine. CT angiogram showed no significant stenosis and no change from prior study. Laboratory data showed WBC 7.4 hemoglobin 11.4 and platelets 203 MCV 94.1 INR 0.9 Sodium 140 potassium 5.3 chloride 103 BUN 27 creatinine 1.36 and magnesium 1.5 troponin x1 - and acetaminophen less than 10 and serum alcohol less than 10 coronavirus PCR not detected. Liver enzymes are not elevated Ammonia level less than 9 Review of Systems Review of systems could not be obtained from the patient. Past Medical History Past Medical History: Atrial Fibrillation, Cancer, Diabetes Mellitus, DAYANA D/Reflux, Hyperlipidemia, Hypertension, Memory Impairment, Osteoarthritis (OA), Pneumonia Additional Past Medical History / Comment(s): FELL 07/09/19 FX LT RADIUS, FREQUENT FALLS-REASON UNKNOWN. 03-10-16 FELL/FX RT FIBULA, VERTIGO , chronic headaches, BREAST CANCER History of Any Multi-Drug Resistant Organisms: CRE, MRSA Date of last positivie culture/infection: MRSA-03/11 MDRO Source:: Source unknown-MRSA Past Surgical History: Back Surgery, Breast Surgery, Orthopedic Surgery Additional Past Surgical History / Comment(s): Bilateral mastectomy with right sided lymp node removal due to cancer, R knee cap removed, Back surgery for herniated disc., Brain stem surgery for decompression-for dizziness, right ankle ORIF, bilateral wrist fractures SX Past Anesthesia/Blood Transfusion Reactions: No Reported Reaction Past Psychological History: No Psychological Hx Reported Smoking Status: Former smoker Past Alcohol Use History: None Reported Past Drug Use History: None Reported - Past Family History Father History Unknown: Yes Family Medical History: Congestive Heart Failure (CHF) Additional Family Medical History / Comment(s): at 68. Mother History Unknown: Yes Family Medical History: Hypertension Additional Family Medical History / Comment(s): Pulmonary hypertension. at 78. Medications and Allergies Home Medications Medication Instructions Recorded Confirmed Type metFORMIN HCL [Glucophage] 500 mg PO BID 12/17/18 02/28/21 History Metoprolol Tartrate [Lopressor] 50 mg PO TID 11/06/19 02/28/21 History Atorvastatin [Lipitor] 40 mg PO HS 06/18/20 02/28/21 History DULoxetine HCL [Cymbalta] 60 mg PO BID 06/18/20 02/28/21 History Baclofen [Lioresal] 20 mg PO BID PRN #6 tab 07/07/20 02/28/21 Rx lisinopriL [Prinivil] 20 mg PO BID 10/11/20 02/28/21 History Butalb/APAP/Caff 50-325-40Mg 1 tab PO TID PRN #9 tab 10/22/20 02/28/21 Rx [Fioricet 50-325-40] Gabapentin [Neurontin] 300 mg PO BID #6 cap 10/22/20 02/28/21 Rx Folic Acid 1 mg PO DAILY@1200 #30 tab 12/23/20 02/28/21 Rx Magnesium Oxide [Mag-Ox] 400 mg PO TID #90 tab 12/23/20 02/28/21 Rx Meclizine [Antivert] 25 mg PO TID #90 tab 12/23/20 02/28/21 Rx Thiamine [Vitamin B-1] 100 mg PO DAILY@1200 #30 tab 12/23/20 02/28/21 Rx Aspirin EC [Ecotrin] 325 mg PO DAILY 01/09/21 02/28/21 History Multivitamins, Thera [Multivitamin 1 tab PO DAILY@1200 01/09/21 02/28/21 History (formulary)] Triamcinolone 0.1% Ointment 1 applic TOPICAL BID 01/09/21 02/28/21 History [Kenalog 0.1% Ointment] diphenhydrAMINE HCL [Benadryl] 25 mg PO BID 01/09/21 02/28/21 History Pyridoxine [Vitamin B-6] 50 mg PO DAILY #30 tab 01/12/21 02/28/21 Rx Meloxicam [Mobic] 7.5 mg PO BID 02/28/21 02/28/21 History Allergies Allergy/AdvReac Type Severity Reaction Status Date / Time cephalexin monohydrate Allergy Anaphylaxis Verified 02/28/21 12:57 [From Keflex] Cephalosporins Allergy Anaphylaxis Verified 02/28/21 12:57 Penicillins Allergy Anaphylaxis Verified 02/28/21 12:57 Physical Exam Vitals: Vital Signs Temp Pulse Pulse Resp BP BP Pulse Ox 02/28/21 19:00 98.0 F 93 16 124/71 96 02/28/21 16:00 57 L 20 125/74 98 02/28/21 14:12 56 L 22 124/95 98 02/28/21 12:53 60 20 132/74 96 02/28/21 10:58 98.7 F 56 L 22 128/72 99 Intake and Output 02/28/21 02/28/21 02/28/21 06:59 14:59 22:59 Other: Voiding Method Urinal Diaper Incontinent Weight 148.778 kg PHYSICAL EXAMINATION: Patient is currently resting in the bed comfortably. Not arousable. Oxygenating well on room air... HEENT: Normocephalic. Neck is supple. Pupils reactive. Nostrils clear. Oral cavity is moist. Neck reveals no JVD, carotid bruits, or thyromegaly. CHEST EXAMINATION: Trachea is central. Symmetrical expansion. Lung bishop clear to auscultation and percussion. CARDIAC: Normal S1, S2 with no gallops. No murmurs ABDOMEN: Soft. Bowel sounds normal. No organomegaly. No abdominal bruits. Extremities: reveal no edema. No clubbing or cyanosis Neurologically . non arousable. No gross focal deficits noted Skin: No rash or skin lesions. Psychiatric: Could not be reassessed at this time. Musculoskeletal: No joint swelling or deformity. Results CBC & Chem 7: 02/28/21 11:35 02/28/21 11:35 Labs: Abnormal Lab Results - Last 24 Hours (Table) 02/28/21 02/28/21 02/28/21 Range/Units 11:11 11:35 11:35 RBC 3.60 L (4.30-5.90) m/uL Hgb 11.4 L (13.0-17.5) gm/dL Hct 33.9 L (39.0-53.0) % Potassium 5.3 H (3.5-5.1) mmol/L BUN 27 H (9-20) mg/dL Creatinine 1.36 H (0.66-1.25) mg/dL Glucose 129 H (74-99) mg/dL POC Glucose (mg/dL) 132 H (75-99) mg/dL Magnesium 1.5 L (1.6-2.3) mg/dL Total Protein 6.2 L (6.3-8.2) g/dL Thrombosis Risk Factor Assmnt - DVT/VTE Prophylaxis DVT/VTE Prophylaxis: Pharmacologic Prophylaxis ordered Assessment and Plan Assessment: Altered mental status possible metabolic toxic encephalopathy. CT head showed no acute CVA. Acute kidney injury likely prerenal with creatinine 1.36 baseline 1.0 Mild hyperkalemia due to acute kidney injury. Potassium 5.3. Mild hyperkalemia due to acute kidney injury potassium 5.3. Hypomagnesemia Diabetes type 2 [id number]. History of atrial fibrillation currently not on any anticoagulation Obesity Hyperlipidemia DVT prophylaxis with heparin subcu Plan: Patient will be continued on IV hydration with normal saline and monitor renal function. Replace electrolytes. Continue with supportive care. Neurology was consulted. Baclofen, Fioricet and gabapentin on hold. Continue with insulin sliding scale. Follow-up closely and prognosis is guarded at this time. Time with Patient: Greater than 30
[2021-03-01] MEDS: SODIUM CHLORIDE 0.9% 1,000 ML IV SCH ×3 (06:13→20:00)
[2021-03-01 08:31] LABS: Appearance,Urine Clear (Clear); Bilirubin,Urine Negative (Negative); Blood,Urine Negative (Negative); Color,Urine Light Yellow; Glucose,Urine (UA) Negative (Negative); Ketones,Urine Negative (Negative); Leukocyte Esterase,Urine Trace (Negative); Mucus,Urine Rare /hpf; Nitrite,Urine Negative (Negative); Protein,Urine Negative (Negative); RBC,Urine <1 /hpf (0-5); Specific Gravity,Urine 1.016 (1.001-1.035); Urobilinogen,Urine <2.0 mg/dL (<2.0); WBC,Urine 12 /hpf (0-5)
[2021-03-01 08:41] LABS: Cocaine Screen,Urine Not Detected (NotDetected); Opiate Screen,Urine Detected (NotDetected); Phencyclidine Screen,Urine Not Detected (NotDetected); Urn Cannabinoid Scrn Not Detected (NotDetected)
[2021-03-01 08:42] LABS: Amphetamine Screen,Urine Not Detected (NotDetected); Barbiturate Screen,Urine Detected (NotDetected); Benzodiazepines Screen,Urine Not Detected (NotDetected); Methadone Screen, Urine Not Detected (NotDetected); Oxycodone Screen, Urine Not Detected (NotDetected); Tricyclic Antidepressant,Urine Not Detected (NotDetected)
[2021-03-01] MEDS: HEPARIN SODIUM,PORCINE/PF 5,000 UNIT/0.5 ML SYRINGE SQ SCH ×3 (09:22→20:00)
[2021-03-01] MEDS: PYRIDOXINE 50 MG TAB PO SCH (09:22)
[2021-03-01] MEDS: MAGNESIUM OXIDE 400 MG TAB PO SCH ×3 (09:22→20:00)
--- NOTE | 2021-03-01 09:22 | P.CNNES ---
History of Present Illness Consult date: 03/01/21 Requesting physician: Dereck Doyle Reason for Consult: encephalopathy History of Present Illness: This is a 70-year-old gentleman with medical history of benign positional vertigo status post decompression with recurrent vertigo, paroxysmal atrial fibrillation not on anticoagulation, cephalgia, hypertension, recurrent falls, diabetes mellitus, morbid obesity who presented emergency department on 02/28/2021 for altered mental status. History is obtained from medical record. He shouldn't the was seen by our neurology team numerous times for his recurrent falls as well as vertigo in the past. It seems that in December 2020 patient admission due to pneumonia and dehydration and that had a previous episode of ur inary tract infection leading to altered mental status. Upon seeing him this morning per the nurse he is verbalizing and is talking but is confused about the date. Currently the patient he states that he continues to have the vertigo and that because of his vertigo he continues to fall. He uses a walker as well as a wheelchair. He said that his last fall was most recent he thinks was in the la st 1-2 days. He said that he continues to follow up at [facility] with a neurosurgeon team regarding his vertigo and according to the patient that there are concern of doing the another operation. Currently the patient eyes any dizziness, any nausea or vomiting. He is complaining of right shoulder pain and arm pain. Per the patient's EMR the patient is on the numerous medication; aspirin 325 daily, Lipitor 40 mg daily at bedtime, baclofen 20 mg 1 tablet twice a day the when necessary, Fioricet 1 tablet 3 times a day when necessary, folic acid, gabapentin 300 mg a tablet twice a day, magnesium, meclizine 25 mg 1 3 times a day, morbid, metoprolol, digoxin seen 50 mg daily, thiamine 100 mg daily, Benadryl 25 mg 1 tablet twice a day, lisinopril 20 mg 1 tablet twice a day, metformin, multiple vitamin. Of note patient had previous surgery involving the right occipital lobe. Seem to the patient has a CT cervical spine on 2021 reported as multiple level degenerative disc disease and hypertrophic aspirin with multilevel canal stenosis. Her prior record the patient had that benign positional vertigo which is chronic and underwent neurosurgical decompression at [facility] and in the past had chronic opiate therapy. They should was seen last by our team on 01/12/[address] Ryan and in his note the patient's recurrent fall is likely multifactorial and he feels is too possibly due to recurrent chronic vertigo, history of benign positional vertigo, cephalgia, acute kidney injury. Also and it is reported as noted the patient has proximal atrial fibrillation in the past and the does not have atrial fibrillation. The telemetry monitoring shows sinus rhythm with first-degree AV block. Cardiology is following. Patient was only on aspirin 325 daily. I personally saw the patient last on 07/07/2020 and I felt the the patient had possibly diabetic neuropathy the as well. I felt the patient had multilevel severe cervical degenerative disc disease and hypert rophic spurring and with multilevel canal stenosis as well as mild to moderate bilateral narrowing at the L4-L5. I at that time I consulted orthopedic team and they stated no emergent need for surgical intervention at. Please review neurology notes for further details Some of the workup during the hospital during this visit: Initial vital signs as a blood pressure of 128/72, heart rate of 56, respiratory of 22, temperature of 98.7 axillary and pulse ox of 99% room air. White blood cells 7.4 thousand which is considered normal. The hemoglobin is 11.4. The platelet is 203,000. Sodium is 140, creatinine is 1.36, BUN is 27, initial serum glucose 129, calcium is 9.5, ionized calcium is 5.0, magnesium is 1.5, AST of 18 and ALT of 15. Ammonia is less than 9. Pantoja virus PCR was not detected Acetaminophen is less than 10 and serum alcohol was less than 10. CT of the head is reported as age related atrophic and chronic small vessel ischemic change without acute intracranial process seen at this time. Personally reviewed the CT of the head and there is no acute or subacute ischemia and there is no proximal hemorrhage that was appreciable. EKG cervical spine was reported as no evidence of for acute fracture or subluxation of the cervical spine. CT angiography of the head and neck was reported as no significant stenosis in the common or internal carotid artery bilaterally. No significant stenosis or aneurysm at the level of [place]. No significant change from recent CT angiography Review of Systems Review of system: The 12 point system was reviewed and apparent positive and negative per HPI. Past Medical History Past Medical History: Atrial Fibrillation, Cancer, Diabetes Mellitus, GERD/Reflux, Hyperlipidemia, Hypertension, Memory Impairment, Osteoarthritis (OA), Pneumonia Additional Past Medical History / Comment(s): FELL 07/09/19 FX LT RADIUS, FREQ UENT FALLS-REASON UNKNOWN. 03-10-16 FELL/FX RT FIBULA, VERTIGO , chronic headaches, BREAST CANCER History of Any Multi-Drug Resistant Organisms: CRE, MRSA Date of last positivie culture/infection: MRSA-03/11 MDRO Source:: Source unknown-MRSA Past Surgical History: Back Surgery, Breast Surgery, Orthopedic Surgery Additional Past Surgical History / Comment(s): Bilateral mastectomy with right sided lymp node removal due to cancer, R knee cap removed, Back surgery for jenny iated disc., Brain stem surgery for decompression-for dizziness, right ankle ORIF, bilateral wrist fractures SX Past Anesthesia/Blood Transfusion Reactions: No Reported Reaction Past Psychological History: No Psychological Hx Reported Smoking Status: Former smoker Past Alcohol Use History: None Reported Past Drug Use History: None Reported - Past Family History Father History Unknown: Yes Family Medical History: Congestive Heart Failure (CHF) Additional Family Medical History / Comment(s): at 68. Mother History Unknown: Yes Family Medical History: Hypertension Additional Family Medical History / Comment(s): Pulmonary hypertension. at 78. Medications and Allergies Home Medications Medication Instructions Recorded Confirmed Type metFORMIN HCL [Glucophage] 500 mg PO BID 12/17/18 02/28/21 History Metoprolol Tartrate [Lopressor] 50 mg PO TID 11/06/19 02/28/21 History Atorvastatin [Lipitor] 40 mg PO HS 06/18/20 02/28/21 History DULoxetine HCL [Cymbalta] 60 mg PO BID 06/18/20 02/28/21 History Baclofen [Lioresal] 20 mg PO BID PRN #6 tab 07/07/20 02/28/21 Rx lisinopriL [Prinivil] 20 mg PO BID 10/11/20 02/28/21 History Butalb/APAP/Caff 50-325-40Mg 1 tab PO TID PRN #9 tab 10/22/20 02/28/21 Rx [Fioricet 50-325-40] Gabapentin [Neurontin] 300 mg PO BID #6 cap 10/22/20 02/28/21 Rx Folic Acid 1 mg PO DAILY@1200 #30 tab 12/23/20 02/28/21 Rx Magnesium Oxide [Mag-Ox] 400 mg PO TID #90 tab 12/23/20 02/28/21 Rx Meclizine [Antivert] 25 mg PO TID #90 tab 12/23/20 02/28/21 Rx Thiamine [Vitamin B-1] 100 mg PO DAILY@1200 #30 tab 12/23/20 02/28/21 Rx Aspirin EC [Ecotrin] 325 mg PO DAILY 01/09/21 02/28/21 History Multivitamins, Thera [Multivitamin 1 tab PO DAILY@1200 01/09/21 02/28/21 History (formulary)] Triamcinolone 0.1% Ointment 1 applic TOPICAL BID 01/09/21 02/28/21 History [Kenalog 0.1% Ointment] diphenhydrAMINE HCL [Benadryl] 25 mg PO BID 01/09/21 02/28/21 History Pyridoxine [Vitamin B-6] 50 mg PO DAILY #30 tab 01/12/21 02/28/21 Rx Meloxicam [Mobic] 7.5 mg PO BID 02/28/21 02/28/21 History Allergies Allergy/AdvReac Type Severity Reaction Status Date / Time cephalexin monohydrate Allergy Anaphylaxis Verified 02/28/21 12:57 [From Keflex] Cephalosporins Allergy Anaphylaxis Verified 02/28/21 12:57 Penicillins Allergy Anaphylaxis Verified 02/28/21 12:57 Physical Examination - Vital Signs Vital Signs: Vital Signs Temp Pulse Pulse Resp BP BP Pulse Ox 03/01/21 07:00 98.1 F 57 L 16 131/78 97 03/01/21 01:55 97.7 F 57 L 18 156/87 96 02/28/21 19:00 98.0 F 93 16 124/71 96 02/28/21 16:00 57 L 20 125/74 98 02/28/21 14:12 56 L 22 124/95 98 02/28/21 12:53 60 20 132/74 96 02/28/21 10:58 98.7 F 56 L 22 128/72 99 Intake and Output 02/28/21 03/01/21 03/01/21 22:59 06:59 14:59 Output Total 850 2480 Balance -850 -2480 Output: Urine 850 2480 Other: Voiding Method Urinal Urinal Urinal Diaper Diaper Incontinent Incontinent # Voids 2 1 Weight 148.778 kg GENERAL: The patient is morbid obese gentleman, lying in bed and is not in acute distress. CHEST: The heart rate is regular rate rhythm. No murmurs to auscultation. No carotid bruit bilaterally. LUNG: Clear to auscultation bilaterally no wheezing noted throughout. Not labored breathing. ABDOMEN/GI: Bowel sounds present in all 4 quadrants. No tenderness to palpation throughout. NEUROLOGICAL: Higher mental function: The patient is awake, alert, oriented to self and place. Upon asking the date he was mentioning his date of then he said he was not sure of current date. Patient is following simple commands. No aphasia and no neglect. Cranial nerves: The pupils are round, equal and reactive to light and accommodation. Visual bishop are full to confrontation throughout. Extraocular movement is intact no nystagmus is noted. Facial sensation is normal to touch throughout. The facial strength is normal throughout. Hearing is moderately decreased bilaterally to hand rub. Tongue is midline and moved [id number] without any difficulty. No dysarthria is noted. Motor: Gait is deferred because of his right sided pain. The strength is lifting above all extremities above gravity and no focal deficit other than the right upper extremity is limited because of pain over the entire right side e specially shoulder region. Normal tone and bulk. Cerebellum: Normal finger to nose bilaterally. Sensation: Sensation is normal to touch throughout. Reflexes (right/left): 1+ throughout. Plantars are mute bilaterally. Results - Laboratory Findings CBC and BMP: 02/28/21 11:35 02/28/21 11:35 Abnormal Lab Findings: Abnormal Labs 02/28/21 02/28/21 02/28/21 11:11 11:35 11:35 RBC 3.60 L Hgb 11.4 L Hct 33.9 L Potassium 5.3 H BUN 27 H Creatinine 1.36 H Glucose 129 H POC Glucose (mg/dL) 132 H Magnesium 1.5 L Total Protein 6.2 L Assessment and Plan Assessment: Encephalopathy of unknown etiology. Possibly small metabolic encephalopathy. Very unlikely seizure. Acute on chronic kidney insufficiency Chronic Benign positional vertigo status post decompression (right occipital region) Chronic vertigo Recurrent falls due to multifactorial (chronic vertigo, diabetic neuropathy) paroxysmal atrial fibrillation not on anticoagulation Cephalgia History of hypertension Diabetes mellitus Morbid obesity Plan: I ordered a routine EEG. I'll not start the patient on antiepileptic drug unless there is epileptiform discharges or seizure on the EEG. Ordered TSH, vitamin B12 and folate level. Urinalysis and blood cultures are ordered and are pending Drug screen is pending Placed the patient on every 4 hours neuro checks Consulted the physical therapy and occupation therapy for gait training Regarding the right shoulder pain recommend imaging but will defer the management to the primary team. We'll defer the rest of medical management to the primary team Patient is following-up with [facility] neurosurgeon regarding his chronic vertigo and decompression in the past. Recommend the patient to follow-up with a neurologist as an outpatient within 1- 2 weeks. The plan is discussed with the patient's nurse. Thank you for the consultation Kareem Linder M.D. Neuro-hospitalist Time with Patient: Greater than 30
[2021-03-01 09:36] LABS: Basophils # (A) 0.02 X 10*3/uL (0.00-0.10); Basophils % (A) 0.2 %; Eosinophils # (A) 0.17 X 10*3/uL (0.04-0.35); Eosinophils % (A) 1.8 %; HCT 39.3 % (39.6-50.0); HGB 11.8 g/dL (13.0-17.0); Lymphocytes % (A) 21.8 %; MCH 30.5 pg (27.0-32.0); MCV 101.6 fL (80.0-97.0); Monocytes % (A) 6.2 %; Neutrophils # (A) 6.69 X 10*3/uL (1.80-7.70); Neutrophils % (A) 69.6 %; Platelet Count 225 X 10*3/uL (140-440); RBC 3.87 X 10*6/uL (4.40-5.60); RDW 14.7 % (11.5-14.5); WBC 9.62 X 10*3/uL (4.50-10.00)
[2021-03-01 10:27] LABS: African American GFR (CKD) 78.4 (60.0-200.0); Albumin 4.1 g/dL (3.8-4.9); Albumin/Globulin Ratio 1.86 (1.60-3.17); Anion Gap 12.2 mmol/L (10.00-18.00); BUN/Creat Ratio 16.45 Ratio (12.00-20.00); Blood Urea Nitrogen 18.1 mg/dL (9.0-27.0); Calcium 9.3 mg/dL (8.7-10.3); Carbon Dioxide 26.8 mmol/L (20.0-27.5); Globulin 2.2 g/dL (1.6-3.3); Non-African American GFR(CKD) 67.7 (60.0-200.0); Potassium 4.8 mmol/L (3.5-5.5); Total Bilirubin 0.3 mg/dL (0.30-1.20); Total Protein 6.3 g/dL (6.2-8.2)
[2021-03-01] MEDS: THIAMINE 100 MG TAB PO SCH (12:36)
[2021-03-01] MEDS: MULTIVITAMINS, THERA 1 EACH TAB PO SCH (12:36)
--- NOTE | 2021-03-01 13:14 | EEG ---
ELECTROENCEPHALOGRAM REPORT DATE OF SERVICE: 03/01/2021. CLINICAL HISTORY: This is a 70-year-old gentleman who presented to the hospital because altered mental status. The video EEG is obtained to evaluate for seizure epileptiform activity. RELEVANT MEDICATION: The patient on gabapentin. EEG TYPE: A routine 21 channel EEG is performed with video using the 10/20 electrode placement system. DESCRIPTION: Wakefulness and drowsiness are obtained. During wakefulness, the background consists of low to moderate voltage of 6-7 hertz that is poorly modulated, poorly sustained theta activity intermixed with delta activity. At times, the background consists of diffuse aer-[id number] voltage nonrhythmic delta activity. There is no physiological stage 2 sleep architecture seen. There is no focal slowing seen. There is mild to moderate diffuse myogenic artifact seen throughout the study. Interictal and ictal is none. ACTIVATION PROCEDURES: Photic stimulation did not evoke a posterior driving response. There is no abnormality during the photic stimulation. Hyperventilation is not performed. CLINICAL INTERPRETATION: This is an abnormal routine EEG. The background slowing is suggestive of moderate encephalopathy. There are no focal slowing, epileptiform discharges or seizure on the EEG. Clinical correlation is recommended. MMODL / IJN: [id number] / [id number]
[2021-03-01] MEDS: ONDANSETRON 4 MG/2 ML VIAL IVP PRN ×2 (14:01→21:29)
[2021-03-01 16:40] LABS: Folate, Serum >20.00 ng/mL (4.40-31.00)
--- NOTE | 2021-03-01 17:09 | XR ---
EXAMINATION TYPE: XR shoulder limited RT DATE OF EXAM: 03/01/2021 COMPARISON: NONE HISTORY: Fall. Pain TECHNIQUE: 2 views FINDINGS: I see no fracture nor dislocation. Glenohumeral joint is anatomic. There is spurring at the AC joint. IMPRESSION: No fracture seen.
[2021-03-01] MEDS: ATORVASTATIN 40 MG TAB PO SCH (20:00)
[2021-03-02] MEDS: SODIUM CHLORIDE 0.9% 1,000 ML IV SCH (05:34)
[2021-03-02] MEDS: ONDANSETRON 4 MG/2 ML VIAL IVP PRN ×2 (08:21→16:05)
[2021-03-02] MEDS: HEPARIN SODIUM,PORCINE/PF 5,000 UNIT/0.5 ML SYRINGE SQ SCH ×3 (09:27→20:28)
[2021-03-02] MEDS: MAGNESIUM OXIDE 400 MG TAB PO SCH ×3 (09:27→20:28)
[2021-03-02] MEDS: PYRIDOXINE 50 MG TAB PO SCH (09:27)
[2021-03-02] MEDS: MELOXICAM 7.5 MG TAB PO SCH ×2 (11:29→20:27)
[2021-03-02] MEDS: MULTIVITAMINS, THERA 1 EACH TAB PO SCH (11:30)
[2021-03-02] MEDS: THIAMINE 100 MG TAB PO SCH (11:30)
[2021-03-02] MEDS: DULoxetine HCL 60 MG CAPSULE.DR PO SCH ×2 (11:30→20:27)
[2021-03-02] MEDS: GABAPENTIN 300 MG CAP PO SCH ×2 (11:30→20:27)
--- NOTE | 2021-03-02 16:59 | P.PN ---
Subjective Progress Note Date: 03/02/21 The patient is seen at bedside and he feels he is having generalized pain and wanting pain medication. Otherwise denies any current dizziness, focal weakness, difficulty getting his words out. Objective - Vital Signs Vital signs: Vital Signs Temp 98.4 F 03/02/21 14:21 Pulse 68 03/02/21 14:21 Resp 18 03/02/21 14:21 BP 159/80 03/02/21 14:21 Pulse Ox 97 03/02/21 14:21 Intake & Output 03/01/21 03/02/21 03/02/21 18:59 06:59 18:59 Intake Total 1517 1740 Output Total 1360 1200 Balance 157 540 Intake: IV 1080 Sodium Chloride 0.9% 1, 1080 000 ml @ 130 mls/hr IV . Q7H42M YARIEL Rx#:[id number] Intake, IV Titration 1040 Amount Sodium Chloride 0.9% 1, 1040 000 ml @ 130 mls/hr IV . Q7H42M YARIEL Rx#:[id number] Oral 477 660 Output: Urine 1360 1200 Other: Voiding Method Urinal Urinal Urinal # Voids 1 - Exam GENERAL: The patient is morbid obese gentleman, lying in bed and is not in acute distress. NEUROLOGICAL: Higher mental function: The patient is awake, alert, oriented to self, place. He correctly stated the year but could not tell me month. Patient is following simple commands. No aphasia and no neglect. Cranial nerves: The pupils are round, equal and reactive to light and accommodation. Visual bishop are full to confrontation throughout. Extraocular movement is intact no nystagmus is noted. Facial sensation is normal to touch throughout. The facial strength is normal throughout. . Tongue is midline and moved [id number] without any difficulty. No dysarthria is noted. Motor: Gait is deferred because of his generalized pain. The strength is lifting above all extremities above gravity and no focal deficit. Normal tone and bulk. Cerebellum: Normal finger to nose bilaterally. Sensation: Sensation is normal to touch throughout. Reflexes (right/left): 1+ throughout. Plantars are mute bilaterally. WORK-UP: Vitamin B12 (299: Normal is 200-944). Serum folate is more than 20 TSH is 1.090. Pantoja virus PCR was not detected Acetaminophen is less than 10 and serum alcohol was less than 10. Urine drug screen is positive for barbiturates and opiates. CT of the head is reported as age related atrophic and chronic small vessel ischemic change without acute intracranial process seen at this time. Personally reviewed the CT of the head and there is no acute or subacute ischemia and there is no proximal hemorrhage that was appreciable. EKG cervical spine was reported as no evidence of for acute fracture or subluxation of the cervical spine. CT angiography of the head and neck was reported as no significant stenosis in the common or internal carotid artery bilaterally. No significant stenosis or aneurysm at the level of [place]. No significant change from recent CT angiography Routine EEG on 03/01/2021 is abnormal. The background slowing is suggestive of moderate encephalopathy. There are no focal slowing, epileptiform discharges or seizure on the EEG. Right shoulder x-ray is reported as no fracture seen. - Labs CBC & Chem 7: 03/01/21 05:36 03/01/21 05:36 Labs: Microbiology - Last 24 Hours (Table) 02/28/21 11:40 Blood Culture Gram Stain - Preliminary Blood Blood Culture - Preliminary Staphylococcus epidermidis 03/01/21 07:53 Urine Culture - Final Urine,Voided Assessment and Plan Assessment: Encephalopathy possibly component of metabolic encephalopathy--mentation improving (no fever, leukocytosis that is suggestive of underlying ART TEACHER infection. EEG is negative for epileptiform and seizure). Acute on chronic kidney insufficiency--improved Low normal Vitamin B12 (299: Normal is 200-944). Chronic Benign positional vertigo status post decompression (right occipital region) Chronic vertigo Recurrent falls due to multifactorial (chronic vertigo, diabetic neuropathy) paroxysmal atrial fibrillation not on anticoagulation Cephalgia History of hypertension Diabetes mellitus Morbid obesity Plan: Because of Low normal Vitamin B12 (299: Normal is 200-944): I started the patient on Vitamin B12 1000mcg once IM then 1000mcg daily PO. Continue hours neuro checks Physical therapy and occupation therapy are consulted for gait training We'll defer the rest of medical management to the primary team Patient is following-up with [facility] neurosurgeon regarding his chronic vertigo and decompression in the past. Recommend the patient to follow-up with a neurologist as an outpatient within 1- 2 weeks. The plan is discussed with the patient's nurse. There is no further work-up. Please notify neurology if any further concerns. Kareem Linder M.D. Neuro-hospitalist Time with Patient: Less than 30
[2021-03-02] MEDS: ACETAMINOPHEN TAB 325 MG TAB PO PRN (17:27)
[2021-03-02] MEDS ORDERED: CYANOCOBALAMIN 1,000 MCG/ML 1 ML VIAL IM ONE (18:00)
[2021-03-02] MEDS: ATORVASTATIN 40 MG TAB PO SCH (20:27)
[2021-03-02] MEDS: BUTALB/APAP/CAFF 50-325-40MG TAB PO PRN (20:28)
[2021-03-03] MEDS: BUTALB/APAP/CAFF 50-325-40MG TAB PO PRN ×2 (04:02→12:42)
[2021-03-03] MEDS: ACETAMINOPHEN TAB 325 MG TAB PO PRN ×2 (04:08→09:07)
[2021-03-03 08:18] VITALS: BP 165/77; PULSE 79; RESP 16; TEMP 98.4
[2021-03-03] MEDS: GABAPENTIN 300 MG CAP PO SCH (08:59)
[2021-03-03] MEDS: MAGNESIUM OXIDE 400 MG TAB PO SCH (08:59)
[2021-03-03] MEDS ORDERED: CYANOCOBALAMIN 500 MCG TAB PO SCH (09:00)
[2021-03-03] MEDS ORDERED: lisinopriL 20 MG TAB PO SCH (09:00)
[2021-03-03] MEDS: DULoxetine HCL 60 MG CAPSULE.DR PO SCH (09:00)
[2021-03-03] MEDS ORDERED: METOPROLOL TARTRATE 50 MG TAB PO SCH (09:00)
[2021-03-03] MEDS: MELOXICAM 7.5 MG TAB PO SCH (09:01)
[2021-03-03] MEDS: PYRIDOXINE 50 MG TAB PO SCH (09:01)
[2021-03-03] MEDS: HEPARIN SODIUM,PORCINE/PF 5,000 UNIT/0.5 ML SYRINGE SQ SCH (09:01)
[2021-03-03] MEDS: ONDANSETRON 4 MG/2 ML VIAL IVP PRN (09:08)
[2021-03-03 11:13] LABS: Basophils # (A) 0.02 X 10*3/uL (0.00-0.10); Basophils % (A) 0.2 %; Eosinophils # (A) 0.13 X 10*3/uL (0.04-0.35); Eosinophils % (A) 1.4 %; HCT 36.4 % (39.6-50.0); HGB 11.6 g/dL (13.0-17.0); Lymphocytes # (A) 1.76 X 10*3/uL (0.90-5.00); MCH 31.4 pg (27.0-32.0); MCHC 31.9 g/dL (32.0-37.0); MCV 98.4 fL (80.0-97.0); Mean Platelet Volume 11.1 fL (9.5-12.2); Monocytes % (A) 7.5 %; Neutrophils # (A) 6.62 X 10*3/uL (1.80-7.70); Neutrophils % (A) 71.4 %; Platelet Count 207 X 10*3/uL (140-440); RDW 14.4 % (11.5-14.5); WBC 9.28 X 10*3/uL (4.50-10.00)
[2021-03-03] MEDS: MULTIVITAMINS, THERA 1 EACH TAB PO SCH (11:28)
[2021-03-03] MEDS: THIAMINE 100 MG TAB PO SCH (11:28)
--- NOTE | 2021-03-03 12:14 | P.PN ---
Subjective Progress Note Date: 03/01/21 Patient is a 70-year-old male with a known history of atrial fibrillation currently not on any anticoagulation, hypertension, hyperlipidemia, GERD, memory impairment, osteoarthritis and history of frequent falls chronic headaches and history of breast cancer status post bilateral mastectomy, brainstem surgery for decompression and previous history of smoking and other multiple medical problems was brought to ER due to altered mental status.. Patient has been altered since yesterday and unable to provide any history at this time. Patient's grandson notes that patient has seen a specialist at [facility] due to pain issue. Patient has been in the hospital previously due to altered mental status. Patient did have urinary tract infection and dehydration at the time. During previous admission in December 2020 due to pneumonia and dehydration.. Chest x-ray showed some minimal basilar atelectasis/scarring suspected. CT head and cervical spine showed age-related atrophic and chronic small vessel ischemic change without acute intracranial process seen at this time. CT cervical spine showed unenhanced CT of the cervical spine was performed with bone and soft tissue window settings submitted. No evidence of acute fracture or dislocation or subluxation of the cervical spine. CT angiogram showed no significant stenosis and no change from prior study. Laboratory data showed WBC 7.4 hemoglobin 11.4 and platelets 203 MCV 94.1 INR 0.9 Sodium 140 potassium 5.3 chloride 103 BUN 27 creatinine 1.36 and magnesium 1.5 troponin x1 - and acetaminophen less than 10 and serum alcohol less than 10 coronavirus PCR not detected. Liver enzymes are not elevated Ammonia level less than 9 03/01/2021 Patient is currently resting in the bed. Awake alert and oriented 3. More awake today. Complaints of generalized body pain and left shoulder pain. X-ray of the shoulder showed no fractures. Patient is tolerating oral diet. Laboratory data showed WBCs 9.6 hemoglobin 10.8 and platelets 225 BUN 18 and creatinine 1.1. Renal function is normalized. EEG was done abnormal EEG. Background slowing is suggestive of moderate encephalopathy. Neurology is on board. No nausea vomiting or abdominal pain or diarrhea. No headache or dizziness or lightheadedness. No fever no chills. No cough or sputum production. Current medications reviewed. Objective - Vital Signs Vital signs: Vital Signs Temp 98.1 F 03/01/21 07:00 Pulse 57 L 03/01/21 07:00 Resp 16 03/01/21 07:00 BP 131/78 12/07/21 07:00 Pulse Ox 97 03/01/21 07:00 Intake & Output 02/28/21 03/01/21 03/01/21 18:59 06:59 18:59 Output Total 3330 360 Balance -3330 -360 Weight 148.778 kg Output: Urine 3330 360 Other: Voiding Method Urinal Urinal Diaper Incontinent # Voids 1 - Exam PHYSICAL EXAMINATION: Patient is lying in the bed comfortably, no acute distress, awake alert and oriented.. HEENT: Normocephalic. Neck is supple. Pupils reactive. Nostrils clear. Oral cavity is moist. Neck reveals no JVD, carotid bruits, or thyromegaly. CHEST EXAMINATION: Trachea is central. Symmetrical expansion. Lung bishop clear to auscultation and percussion. CARDIAC: Normal S1, S2 with no gallops. No murmurs ABDOMEN: Soft. Bowel sounds normal. No organomegaly. No abdominal bruits. Extremities: reveal no edema. No clubbing or cyanosis Neurologically awake, alert, oriented x3 with well-coordinated movements. No focal deficits noted Skin: No rash or skin lesions. Psychiatric: Coperative. Nonsuicidal Musculoskeletal: No joint swelling or deformity. Normal range of motion. - Labs CBC & Chem 7: 03/03/21 06:58 03/01/21 05:36 Labs: Abnormal Lab Results - Last 24 Hours (Table) 02/28/21 02/28/21 03/01/21 Range/Units 11:35 11:35 05:36 RBC 3.60 L 3.87 L (4.30-5.90) m/uL Hgb 11.4 L 11.8 L (13.0-17.5) gm/dL Hct 33.9 L 39.3 L (39.0-53.0) % MCV 101.6 H (80.0-97.0) fL MCHC 30.0 L (32.0-37.0) g/dL RDW 14.7 H (11.5-14.5) % Potassium 5.3 H (3.5-5.1) mmol/L BUN 27 H (9-20) mg/dL Creatinine 1.36 H (0.66-1.25) mg/dL Glucose 129 H (74-99) mg/dL Magnesium 1.5 L (1.6-2.3) mg/dL AST (14-35) U/L Total Protein 6.2 L (6.3-8.2) g/dL Ur Leukocyte Esterase (Negative) Urine WBC (0-5) /hpf Urine Mucus (None) /hpf Urine Opiates Screen (NotDetected) Ur Barbiturates Screen (NotDetected) 03/01/21 03/01/21 Range/Units 05:36 07:53 RBC (4.30-5.90) m/uL Hgb (13.0-17.5) gm/dL Hct (39.0-53.0) % MCV (80.0-97.0) fL MCHC (32.0-37.0) g/dL RDW (11.5-14.5) % Potassium (3.5-5.1) mmol/L BUN (9-20) mg/dL Creatinine (0.66-1.25) mg/dL Glucose 145 H (74-99) mg/dL Magnesium (1.6-2.3) mg/dL AST 11 L (14-35) U/L Total Protein (6.3-8.2) g/dL Ur Leukocyte Esterase Trace H (Negative) Urine WBC 12 H (0-5) /hpf Urine Mucus Rare H (None) /hpf Urine Opiates Screen Detected H (NotDetected) Ur Barbiturates Screen Detected H (NotDetected) Microbiology - Last 24 Hours (Table) 03/01/21 07:53 Urine Culture - Preliminary Urine,Voided 02/28/21 11:40 Blood Culture - Final Blood Assessment and Plan Assessment: Altered mental status possible metabolic toxic encephalopathy. Resolved now. Patient is awake alert and oriented 3. EEG showed moderate encephalopathy. CT head showed no acute CVA. Acute kidney injury likely prerenal with creatinine 1.36 baseline 1.0. Improved Mild hyperkalemia due to acute kidney injury. Potassium 5.3. Mild hyperkalemia due to acute kidney injury potassium 5.3. Hypomagnesemia Diabetes type 2 [id number]. History of atrial fibrillation currently not on any anticoagulation Obesity Hyperlipidemia DVT prophylaxis with heparin subcu Plan: Patient will be continued on IV hydration with normal saline and monitor renal function. Replace electrolytes. Continue with supportive care. Neurology was consulted. Baclofen, Fioricet and gabapentin on hold. Continue with insulin sliding scale. PTOT and possible rehab versus home with PT Follow-up closely and prognosis is guarded at this time. Time with Patient: Greater than 30
--- NOTE | 2021-03-03 12:15 | P.PN ---
Subjective Progress Note Date: 03/02/21 Principal diagnosis: Acute metabolic and toxic encephalopathy Patient is a 70-year-old male with a known history of atrial fibrillation currently not on any anticoagulation, hypertension, hyperlipidemia, GERD, memory impairment, osteoarthritis and history of frequent falls chronic headaches and history of breast cancer status post bilateral mastectomy, brainstem surgery for decompression and previous history of smoking and other multiple medical problems was brought to ER due to altered mental status.. Patient has been altered since yesterday and unable to provide any history at this time. Patient's grandson notes that patient has seen a specialist at [facility] due to pain issue. Patient has been in the hospital previously due to altered mental status. Patient did have urinary tract infection and dehydration at the time. During previous admission in December 2020 due to pneumonia and dehydration.. Chest x-ray showed some minimal basilar atelectasis/scarring suspected. CT head and cervical spine showed age-related atrophic and chronic small vessel ischemic change without acute intracranial process seen at this time. CT cervical spine showed unenhanced CT of the cervical spine was performed with bone and soft tissue window settings submitted. No evidence of acute fracture or dislocation or subluxation of the cervical spine. CT angiogram showed no significant stenosis and no change from prior study. Laboratory data showed WBC 7.4 hemoglobin 11.4 and platelets 203 MCV 94.1 INR 0.9 Sodium 140 potassium 5.3 chloride 103 BUN 27 creatinine 1.36 and magnesium 1.5 troponin x1 - and acetaminophen less than 10 and serum alcohol less than 10 coronavirus PCR not detected. Liver enzymes are not elevated Ammonia level less than 9 03/01/2021 Patient is currently resting in the bed. Awake alert and oriented 3. More awake today. Complaints of generalized body pain and left shoulder pain. X-ray of the shoulder showed no fractures. Patient is tolerating oral diet. Laboratory data showed WBCs 9.6 hemoglobin 10.8 and platelets 225 BUN 18 and cr eatinine 1.1. Renal function is normalized. EEG was done abnormal EEG. Background slowing is suggestive of moderate encephalopathy. Neurology is on board. No nausea vomiting or abdominal pain or diarrhea. No headache or dizziness or lightheadedness. No fever no chills. No cough or sputum production. 03/02/2021 Patient is resting in the bed. Awake alert oriented 3. Complains of generalized body pains and requesting IV pain medications. Denied any complains of dizziness or lightheadedness. No focal weakness. Patient has been afebrile. Tolerating oral diet. PT OT is on board. Discharge planning pending. No nausea vomiting or abdominal pain or diarrhea. No other acute overnight i ssues. Current medications reviewed. Objective - Vital Signs Vital signs: Vital Signs Temp 98.6 F 03/02/21 20:00 Pulse 77 03/02/21 20:00 Resp 19 03/02/21 20:00 BP 161/89 03/02/21 20:00 Pulse Ox 94 L 03/02/21 20:00 Intake & Output 03/02/21 03/02/21 03/03/21 06:59 18:59 06:59 Intake Total 1740 Output Total 1200 Balance 540 Intake: IV 1080 Sodium Chloride 0.9% 1, 1080 000 ml @ 130 mls/hr IV . Q7H42M [facility] Rx#:[id number] Oral 660 Output: Urine 1200 Other: Voiding Method Urinal Urinal Urinal # Voids 1 - Exam PHYSICAL EXAMINATION: Patient is lying in the bed comfortably, no acute distress, awake alert and oriented.. HEENT: Normocephalic. Neck is supple. Pupils reactive. Nostrils clear. Oral cavity is moist. Neck reveals no JVD, carotid bruits, or thyromegaly. CHEST EXAMINATION: Trachea is central. Symmetrical expansion. Lung bishop clear to auscultation and percussion. CARDIAC: Normal S1, S2 with no gallops. No murmurs ABDOMEN: Soft. Bowel sounds normal. No organomegaly. No abdominal bruits. Extremities: reveal no edema. No clubbing or cyanosis Neurologically awake, alert, oriented x3 with well-coordinated movements. No focal deficits noted Skin: No rash or skin lesions. Psychiatric: Coperative. Nonsuicidal Musculoskeletal: No joint swelling or deformity. Normal range of motion. - Labs CBC & Chem 7: 03/03/21 06:58 03/01/21 05:36 Labs: Microbiology - Last 24 Hours (Table) 02/28/21 11:40 Blood Culture Gram Stain - Preliminary Blood Blood Culture - Preliminary Staphylococcus epidermidis 03/01/21 07:53 Urine Culture - Final Urine,Voided Assessment and Plan Assessment: Altered mental status possible metabolic toxic encephalopathy. Resolved now. Patient is awake alert and oriented 3. EEG showed moderate encephalopathy. CT head showed no acute CVA. Acute kidney injury likely prerenal with creatinine 1.36 baseline 1.0. Improved Mild hyperkalemia due to acute kidney injury. Potassium 5.3. Mild hyperkalemia due to acute kidney injury potassium 5.3. Hypomagnesemia B12 deficiency. Patient was given cyanocobalamin IM 1 and continue with oral supplementation. Diabetes type 2 [id number]. History of atrial fibrillation currently not on any anticoagulation Obesity Hyperlipidemia DVT prophylaxis with heparin subcu Plan: Reduce IV fluids. They'll function normalized.. Replace electrolytes. Continue with supportive care. Neurology was consulted. Baclofen, Fioricet and gabapentin on hold. Continue with insulin sliding scale. Continue the pain management. PTOT and possible rehab versus home with PT Follow-up closely and prognosis is guarded at this time.
[2021-03-03 12:25] LABS: Anion Gap 12.6 mmol/L (10.00-18.00); Calcium 9.2 mg/dL (8.7-10.3); Carbon Dioxide 25.6 mmol/L (20.0-27.5); Non-African American GFR(CKD) 75.9 (60.0-200.0); Potassium 4.5 mmol/L (3.5-5.5)
--- NOTE | 2021-03-03 16:59 | P.PN ---
Subjective Progress Note Date: 03/03/21 The patient is seen at bedside and feels about the same. He continues to have generalized pain throughout. He denies of any further dizziness or focal deficits. Objective - Vital Signs Vital signs: Vital Signs Temp 98.4 F 03/03/21 07:00 Pulse 79 03/03/21 14:00 Resp 16 03/03/21 14:00 BP 165/77 03/03/21 07:00 Pulse Ox 95 03/03/21 07:00 Intake & Output 03/02/21 03/03/21 03/03/21 18:59 06:59 18:59 Intake Total 1740 458 Output Total 1295 169 8738 Balance 913 -431 -2033 Intake: IV 1080 Sodium Chloride 0.9% 1, 1080 000 ml @ 130 mls/hr IV . Q7H42M [facility] Rx#:[id number] Oral 660 458 Output: Urine 4541 032 4088 Other: Voiding Method Urinal Urinal Urinal # Voids 2 - Exam GENERAL: The patient is morbid obese gentleman, lying in bed and is not in acute distress. NEUROLOGICAL: Higher mental function: The patient is awake, alert, oriented to self, place. He correctly stated the year but could not tell me month. Patient is following simple commands. No aphasia and no neglect. Cranial nerves: The pupils are round, equal and reactive to light and accommodation. Visual bishop are full to confrontation throughout. Extraocular movement is intact no nystagmus is noted. Facial sensation is normal to touch throughout. The facial strength is normal throughout. . Tongue is midline and moved [id number] without any difficulty. No dysarthria is noted. Motor: Gait is deferred because of his generalized pain. The strength is lifting above all extremities above gravity and no focal deficit. Normal tone and bulk. Cerebellum: Normal finger to nose bilaterally. Sensation: Sensation is normal to touch throughout. Reflexes (right/left): 1+ throughout. Plantars are mute bilaterally. WORK-UP: Vitamin B12 (299: Normal is 200-944). Serum folate is more than 20 TSH is 1.090. Pantoja virus PCR was not detected Acetaminophen is less than 10 and serum alcohol was less than 10. Urine drug screen is positive for barbiturates and opiates. CT of the head is reported as age related atrophic and chronic small vessel ischemic change without acute intracranial process seen at this time. Personally reviewed the CT of the head and there is no acute or subacute ischemia and there is no proximal hemorrhage that was appreciable. EKG cervical spine was reported as no evidence of for acute fracture or subluxation of the cervical spine. CT angiography of the head and neck was reported as no significant stenosis in the common or internal carotid artery bilaterally. No significant stenosis or aneurysm at the level of upper [place] of [place]. No significant change from recent CT angiography Routine EEG on 03/01/2021 is abnormal. The background slowing is suggestive of moderate encephalopathy. There are no focal slowing, epileptiform discharges or seizure on the EEG. Right shoulder x-ray is reported as no fracture seen. - Labs CBC & Chem 7: 03/03/21 06:58 03/03/21 06:58 Labs: Abnormal Lab Results - Last 24 Hours (Table) 03/03/21 03/03/21 Range/Units 06:58 06:58 RBC 3.70 L (4.40-5.60) X 10*6/uL Hgb 11.6 L (13.0-17.0) g/dL Hct 36.4 L (39.6-50.0) % MCV 98.4 H (80.0-97.0) fL MCHC 31.9 L (32.0-37.0) g/dL Immature Gran # 0.05 H (0.00-0.04) X 10*3/uL Glucose 151 H (70-110) mg/dL Assessment and Plan Assessment: Encephalopathy possibly component of metabolic encephalopathy--mentation improving (no fever, leukocytosis that is suggestive of underlying [employer] infection. EEG is negative for epileptiform and seizure). Acute on chronic kidney insufficiency--improved Low normal Vitamin B12 (299: Normal is 200-944). Chronic Benign positional vertigo status post decompression (right occipital region) Chronic vertigo Recurrent falls due to multifactorial (chronic vertigo, diabetic neuropathy) paroxysmal atrial fibrillation not on anticoagulation Cephalgia History of hypertension Diabetes mellitus Morbid obesity Plan: Because of Low normal Vitamin B12 (299: Normal is 200-944): Continue Vitamin B12 1000mcg PO daily. Continue hours neuro checks Physical therapy and occupation therapy are consulted for gait training We'll defer the rest of medical management to the primary team Patient is following-up with [facility] neurosurgeon regarding his chronic vertigo and decompression in the past. Recommend the patient to follow-up with a neurologist as an outpatient within 1- 2 weeks. The plan is discussed with the patient's nurse and primary team. There is no further work-up. Please notify neurology if any further concerns. Kareem Linder M.D. Neuro-hospitalist Time with Patient: Less than 30
== END 2021-03-03 16:00 | disposition home health service (06) ==
LOC: EC 10:57 → 6NMEDSUR 15:02
PROVIDERS: ADMIT Internal Medicine; ATTEND Internal Medicine
DX: G93.40 Encephalopathy, unspecified (principal); N17.9 Acute kidney failure, unspecified; E87.5 Hyperkalemia; I12.9 Hypertensive chronic kidney disease with stage 1 through stage 4 chronic kidney disease, or unspecified chronic kidney disease; N18.9 Chronic kidney disease, unspecified; E11.22 Type 2 diabetes mellitus with diabetic chronic kidney disease; H81.10 Benign paroxysmal vertigo, unspecified ear; E83.42 Hypomagnesemia; R00.1 Bradycardia, unspecified; E78.5 Hyperlipidemia, unspecified; K21.9 Gastro-esophageal reflux disease without esophagitis; M19.90 Unspecified osteoarthritis, unspecified site; I48.0 Paroxysmal atrial fibrillation; R94.01 Abnormal electroencephalogram [EEG]; I67.82 Cerebral ischemia; E11.40 Type 2 diabetes mellitus with diabetic neuropathy, unspecified; E53.8 Deficiency of other specified B group vitamins; M47.812 Spondylosis without myelopathy or radiculopathy, cervical region; M50.30 Other cervical disc degeneration, unspecified cervical region; M25.511 Pain in right shoulder; M79.603 Pain in arm, unspecified; I44.0 Atrioventricular block, first degree; R29.6 Repeated falls; R41.3 Other amnesia; E66.01 Morbid (severe) obesity due to excess calories; Z68.37 Body mass index [BMI] 37.0-37.9, adult; Z20.822 Contact with and (suspected) exposure to COVID-19; Z79.84 Long term (current) use of oral hypoglycemic drugs; Z79.82 Long term (current) use of aspirin; Z79.899 Other long term (current) drug therapy; Z79.1 Long term (current) use of non-steroidal anti-inflammatories (NSAID); Z88.0 Allergy status to penicillin; Z88.1 Allergy status to other antibiotic agents; Z87.891 Personal history of nicotine dependence; Z85.3 Personal history of malignant neoplasm of breast; Z87.01 Personal history of pneumonia (recurrent); Z87.81 Personal history of (healed) traumatic fracture; Z86.14 Personal history of Methicillin resistant Staphylococcus aureus infection; Z16.39 Resistance to other specified antimicrobial drug; Z90.13 Acquired absence of bilateral breasts and nipples; Z98.890 Other specified postprocedural states; Z82.49 Family history of ischemic heart disease and other diseases of the circulatory system
CPT/HCPCS: 96376 ×3; 96361 ×2; 96372 ×4; 96375 ×2; 96365; 96366; 99285; 36415; 95816; 93005; 97162; 97166; 80053 ×2; 80048; 84443; 82330; 82607; 82140; 82746; 83605; 83735; 84484; 85025 ×3; 85610; 85730; 81001; 87040; 80306; 80143; 87086; 87077; 87186; 87635; 73020; 71045; 72125; 70496; 70450; 70498; G0378 ×4; G0480; J2270; J3420; J2405 ×3; J3475; Q9967; J1644 ×4; 80320

== ENCOUNTER 2021-03-22 08:57 | Emergency (ER) | payer MEDICARE ==
[2021-03-22 09:03] VITALS: TEMP 97.4
[2021-03-22] MEDS ORDERED: HYDROcodone/APAP 10-325MG 1 EACH TAB PO ONE (09:46)
--- NOTE | 2021-03-22 09:47 | ED ---
Fall HPI - General Chief Complaint: Fall Stated Complaint: Fall Time Seen by Provider: 03/22/21 08:58 Source: patient, EMS Mode of arrival: EMS Limitations: no limitations - History of Present Illness Initial Comments: 70-year-old male presents emergency apartment via EMS chief complaint of a fall. Patient states he has balance issues states that he had a fall yesterday with no head injury no loss conscious. Patient states he fell onto his chest complaint of rib pain, shoulder pain bilaterally no other injuries noted. Patient states that seemed to worsen today. No fevers or chills no cough or cold-like symptoms no other complaints. - Related Data Home Medications Medication Instructions Recorded Confirmed metFORMIN HCL [Glucophage] 500 mg PO BID 12/17/18 03/22/21 Metoprolol Tartrate [Lopressor] 50 mg PO TID 11/06/19 03/22/21 Atorvastatin [Lipitor] 40 mg PO HS 06/18/20 03/22/21 DULoxetine HCL [Cymbalta] 60 mg PO BID 06/18/20 03/22/21 lisinopriL [Prinivil] 20 mg PO BID 10/11/20 03/22/21 Aspirin EC [Ecotrin] 325 mg PO DAILY 01/09/21 03/22/21 Multivitamins, Thera [Multivitamin 1 tab PO DAILY@1200 01/09/21 03/22/21 (formulary)] Triamcinolone 0.1% Ointment 1 applic TOPICAL BID 01/09/21 03/22/21 [Kenalog 0.1% Ointment] Meloxicam [Mobic] 7.5 mg PO BID 02/28/21 03/22/21 Butalb/APAP/Caff 50-325-40Mg 1 tab PO Q6H 03/22/21 03/22/21 [Fioricet 50-325-40] Previous Rx's Medication Instructions Recorded Baclofen [Lioresal] 20 mg PO BID PRN #6 tab 07/07/20 Gabapentin [Neurontin] 300 mg PO BID #6 cap 10/22/20 Folic Acid 1 mg PO DAILY@1200 #30 tab 12/23/20 Magnesium Oxide [Mag-Ox] 400 mg PO TID #90 tab 12/23/20 Meclizine [Antivert] 25 mg PO TID #90 tab 12/23/20 Thiamine [Vitamin B-1] 100 mg PO DAILY@1200 #30 tab 12/23/20 Pyridoxine [Vitamin B-6] 50 mg PO DAILY #30 tab 01/12/21 Cyanocobalamin [Vitamin B-12] 1,000 mcg PO DAILY #30 tab 03/03/21 Allergies Allergy/AdvReac Type Severity Reaction Status Date / Time cephalexin monohydrate Allergy Anaphylaxis Verified 03/22/21 09:41 [From Keflex] Cephalosporins Allergy Anaphylaxis Verified 03/22/21 09:41 Penicillins Allergy Anaphylaxis Verified 03/22/21 09:41 Review of Systems ROS Statement: Those systems with pertinent positive or pertinent negative responses have been documented in the HPI. ROS Other: All systems not noted in ROS Statement are negative. Past Medical History Past Medical History: Atrial Fibrillation, Cancer, Diabetes Mellitus, GERD/Reflux, Hyperlipidemia, Hypertension, Memory Impairment, Osteoarthritis (OA), Pneumonia Additional Past Medical History / Comment(s): FELL 07/09/19 FX LT RADIUS, FREQUENT FALLS-REASON UNKNOWN. 03-10-16 FELL/FX RT FIBULA, VERTIGO , chronic headaches, BREAST CANCER History of Any Multi-Drug Resistant Organisms: CRE, MRSA Date of last positivie culture/infection: MRSA-03/11 MDRO Source:: Source unknown-MRSA Past Surgical History: Back Surgery, Breast Surgery, Orthopedic Surgery Additional Past Surgical History / Comment(s): Bilateral mastectomy with right sided lymp node removal due to cancer, R knee cap removed, Back surgery for herniated disc., Brain stem surgery for decompression-for dizziness, right ankle ORIF, bilateral wrist fractures SX Past Anesthesia/Blood Transfusion Reactions: No Reported Reaction Past Psychological History: No Psychological Hx Reported Smoking Status: Former smoker Past Alcohol Use History: None Reported Past Drug Use History: None Reported - Past Family History Father History Unknown: Yes Family Medical History: Congestive Heart Failure (CHF) Additional Family Medical History / Comment(s): at 68. Mother History Unknown: Yes Family Medical History: Hypertension Additional Family Medical History / Comment(s): Pulmonary hypertension. at 78. General Exam Limitations: no limitations General appearance: alert, in no apparent distress Head exam: Present: atraumatic, normocephalic, normal inspection Eye exam: Present: normal appearance, PERRL, EOMI. Absent: scleral icterus, conjunctival injection, periorbital swelling ENT exam: Present: normal exam, normal oropharynx, mucous membranes moist Neck exam: Present: normal inspection, full ROM. Absent: tenderness, meningismus, lymphadenopathy Respiratory exam: Present: normal lung sounds bilaterally, chest wall tenderness. Absent: respiratory distress, wheezes, rales, rhonchi, stridor Cardiovascular Exam: Present: regular rate, normal rhythm, normal heart sounds. Absent: systolic murmur, diastolic murmur, rubs, gallop, clicks GI/Abdominal exam: Present: soft, normal bowel sounds. Absent: distended, tenderness, guarding, rebound, rigid Neurological exam: Present: alert, oriented X3, CN II-XII intact, reflexes normal. Absent: motor sensory deficit Skin exam: Present: warm, dry, intact, normal color. Absent: rash Course Vital Signs 03/22/21 03/22/21 08:59 11:30 Temperature 97.4 F L Pulse Rate 88 54 L Respiratory 18 20 Rate Blood Pressure 114/78 165/88 O2 Sat by Pulse 96 95 Oximetry Medical Decision Making - Medical Decision Making X-rays showed possibility subtle clavicular fracture though he has no tenderness over dislocation. Patient be discharged in stable condition return parameters discussed. Disposition Clinical Impression: Chest wall contusion, Back pain Disposition: HOME SELF-CARE Condition: Stable Instructions (If sedation given, give patient instructions): Chest Wall Pain (ED) Additional Instructions: Please return to the Emergency Department if symptoms worsen or any other concerns. Is patient prescribed a controlled substance at d/c from ED?: No Referrals: Damon Rodriguez MD [Primary Care Provider] - 1-2 days Time of Disposition: 11:34
--- NOTE | 2021-03-22 10:29 | XR ---
EXAMINATION TYPE: XR chest 2V DATE OF EXAM: 03/22/2021 COMPARISON: NONE TECHNIQUE: PA and lateral views submitted. HISTORY: Pain FINDINGS: The lungs are clear and there is no pneumothorax, pleural effusion, or focal pneumonia. Hypertrophi c and degenerative change the spine. Arthropathy of the shoulders. IMPRESSION: 1. Sella deformity of the distal left clavicle. No acute infiltrate or pneumothorax. 2. Deformity of the distal left clavicle could be chronic correlate with point tenderness..
--- NOTE | 2021-03-22 10:30 | XR ---
EXAMINATION TYPE: XR thoracic spine 2V DATE OF EXAM: 03/22/2021 COMPARISON: NONE HISTORY: Pain TECHNIQUE: 3 views submitted FINDINGS: Alignment is anatomic. There is no compression deformities. Hypertrophic and degenerative changes of the spine. IMPRESSION: 1. Multilevel severe degenerative disc disease with hypertrophic changes of the spine.
[2021-03-22 11:40] VITALS: BP 165/88; PULSE 54; RESP 20
== END 2021-03-22 12:45 | disposition home or self-care (01) ==
LOC: EC 08:57
DX: S20.219A Contusion of unspecified front wall of thorax, initial encounter (principal); M54.9 Dorsalgia, unspecified; E11.9 Type 2 diabetes mellitus without complications; I10 Essential (primary) hypertension; I48.91 Unspecified atrial fibrillation; K21.9 Gastro-esophageal reflux disease without esophagitis; E78.5 Hyperlipidemia, unspecified; M19.90 Unspecified osteoarthritis, unspecified site; Z79.84 Long term (current) use of oral hypoglycemic drugs; Z79.82 Long term (current) use of aspirin; Z79.899 Other long term (current) drug therapy; Z88.0 Allergy status to penicillin; W01.0XXA Fall on same level from slipping, tripping and stumbling without subsequent striking against object, initial encounter
CPT/HCPCS: 71046; 72070; 93005; 99284

== ENCOUNTER 2021-04-21 14:38 | Inpatient (IN) | payer MEDICARE ==
--- NOTE | 2021-04-21 15:14 | ED ---
General Adult HPI - General Chief complaint: Fall Stated complaint: weakness Time Seen by Provider: 04/21/21 15:09 Source: patient, EMS Mode of arrival: EMS Limitations: no limitations - History of Present Illness Initial comments: Kyle is a 70yo M with a history of severe vertigo for which she was supposed to undergo brainstem operation at [facility] last week however the patient was hospitalized at that time therefore was not eligible. Patient presents the emergency department today via ambulance after having fallen at home again. Patient reports that he fell around 8 AM, he was not located until approximately 2 PM at which time an ambulance was called. Patient complains of pain in his right hip and has not been able to stand or bear weight since the fall. - Related Data Home Medications Medication Instructions Recorded Confirmed metFORMIN HCL [Glucophage] 500 mg PO BID 12/17/18 04/21/21 Metoprolol Tartrate [Lopressor] 50 mg PO TID 11/06/19 04/21/21 Atorvastatin [Lipitor] 40 mg PO HS 06/18/20 04/21/21 DULoxetine HCL [Cymbalta] 60 mg PO BID 06/18/20 04/21/21 lisinopriL [Prinivil] 20 mg PO BID 10/11/20 04/21/21 Multivitamins, Thera [Multivitamin 1 tab PO DAILY@1200 01/09/21 04/21/21 (formulary)] Triamcinolone 0.1% Ointment 1 applic TOPICAL BID 01/09/21 04/21/21 [Kenalog 0.1% Ointment] Calcium Carbonate [Tums] 500 mg PO TID 04/21/21 04/21/21 Nystatin 100,000 Unit/ml Susp 500,000 unit PO QID PRN 04/21/21 04/21/21 [Mycostatin Oral Susp] Previous Rx's Medication Instructions Recorded Baclofen [Lioresal] 20 mg PO BID PRN #6 tab 07/07/20 Gabapentin [Neurontin] 300 mg PO BID #6 cap 10/22/20 Folic Acid 1 mg PO DAILY@1200 #30 tab 12/23/20 Magnesium Oxide [Mag-Ox] 400 mg PO TID #90 tab 12/23/20 Thiamine [Vitamin B-1] 100 mg PO DAILY@1200 #30 tab 12/23/20 Pyridoxine [Vitamin B-6] 50 mg PO DAILY #30 tab 01/12/21 Cyanocobalamin [Vitamin B-12] 1,000 mcg PO DAILY #30 tab 03/03/21 Aspirin 81 mg PO DAILY #30 tab 04/08/21 Pantoprazole Sodium [Protonix] 40 mg PO BID #60 tab 04/08/21 Sucralfate [Carafate] 1 gm PO AC-TID #120 tab 04/08/21 amLODIPine [Norvasc] 5 mg PO DAILY #30 tab 04/08/21 hydrALAZINE HCL [Apresoline] 25 mg PO BID PRN #60 tab 04/08/21 traMADol HCl [Ultram] 50 mg PO QID PRN 3 Days #12 tab 04/08/21 Allergies Allergy/AdvReac Type Severity Reaction Status Date / Time cephalexin monohydrate Allergy Anaphylaxis Verified 04/21/21 16:10 [From Keflex] Cephalosporins Allergy Anaphylaxis Verified 04/21/21 16:10 Penicillins Allergy Anaphylaxis Verified 04/21/21 16:10 Review of Systems ROS Statement: Those systems with pertinent positive or pertinent negative responses have been documented in the HPI. ROS Other: All systems not noted in ROS Statement are negative. Past Medical History Past Medical History: Atrial Fibrillation, Cancer, Diabetes Mellitus, GERD/Reflux, Hyperlipidemia, Hypertension, Memory Impairment, Osteoarthritis (OA), Pneumonia Additional Past Medical History / Comment(s): FELL 07/09/19 FX LT RADIUS, FREQUENT FALLS-REASON UNKNOWN. 03-10-16 FELL/FX RT FIBULA, VERTIGO , chronic headaches, BREAST CANCER History of Any Multi-Drug Resistant Organisms: CRE, MRSA Date of last positivie culture/infection: MRSA-03/11 MDRO Source:: Source unknown-MRSA Past Surgical History: Back Surgery, Breast Surgery, Orthopedic Surgery Additional Past Surgical History / Comment(s): Bilateral mastectomy with right sided lymp node removal due to cancer, R knee cap removed, Back surgery for herniated disc., Brain stem surgery for decompression-for dizziness, right ankle ORIF, bilateral wrist fractures SX Past Anesthesia/Blood Transfusion Reactions: No Reported Reaction Past Psychological History: No Psychological Hx Reported Smoking Status: Former smoker Past Alcohol Use History: None Reported Past Drug Use History: None Reported - Past Family History Father History Unknown: Yes Family Medical History: Congestive Heart Failure (CHF) Additional Family Medical History / Comment(s): at 68. Mother History Unknown: Yes Family Medical History: Hypertension Additional Family Medical History / Comment(s): Pulmonary hypertension. at 78. General Exam - General Exam Comments Initial Comments: Physical Exam GENERAL: Chronically ill appearing, elderly HENT: Normocephalic, Atraumatic. EYES: PERRL, EOMI PULMONARY: Unlabored respirations. No audible rales rhonchi or wheezing was noted. CARDIOVASCULAR: RRR ABDOMEN: Soft and nontender with normal bowel sounds. SKIN: Skin is clear with no lesions or rashes and otherwise unremarkable. : Deferred NEUROLOGIC: Patient is alert and oriented x3. MUSCULOSKELETAL: Decreased ROM of right hip secondary to pain PSYCHIATRIC: Normal psychiatric evaluation. Limitations: no limitations Course Vital Signs 04/21/21 04/21/21 04/21/21 14:42 17:00 20:00 Temperature 98.9 F Pulse Rate 91 69 78 Respiratory 18 18 16 Rate Blood Pressure 125/99 147/92 122/67 O2 Sat by Pulse 95 97 97 Oximetry Medical Decision Making - Medical Decision Making Patient was seen and evaluated, labs and imaging were obtained and there is no acute findings however given the patient's advanced age, obesity, gait instability and inability to ambulate I do not feel he is stable for discharge home. I did discuss with the patient and he states he's been recommended for n ursing home or long-term rehabs in the past has refused. Patient states he doesn't feel he can go home in this condition. Patient did have a COVID test for admission and it was incidentally positive though the patient does not have any fever and states he has not been coughing until he got to the emergency department. Dr Pressley accepts admission - Lab Data Result diagrams: 04/21/21 15:28 04/21/21 15:28 Lab Results 04/21/21 04/21/21 04/21/21 Range/Units 15:28 15:28 15:28 WBC 7.9 (3.8-10.6) k/uL RBC 4.25 L (4.30-5.90) m/uL Hgb 13.2 (13.0-17.5) gm/dL Hct 40.1 (39.0-53.0) % MCV 94.4 (80.0-100.0) fL MCH 30.9 (25.0-35.0) pg MCHC 32.8 (31.0-37.0) g/dL RDW 13.0 (11.5-15.5) % Plt Count 228 (150-450) k/uL MPV 7.2 Neutrophils % 77 % Lymphocytes % 9 % Monocytes % 9 % Eosinophils % 2 % Basophils % 1 % Neutrophils # 6.1 (1.3-7.7) k/uL Lymphocytes # 0.7 L (1.0-4.8) k/uL Monocytes # 0.7 (0-1.0) k/uL Eosinophils # 0.1 (0-0.7) k/uL Basophils # 0.1 (0-0.2) k/uL PT 11.0 (9.0-12.0) sec INR 1.0 (<1.2) APTT 29.1 (22.0-30.0) sec Sodium 135 L (137-145) mmol/L Potassium 4.3 (3.5-5.1) mmol/L Chloride 96 L (98-107) mmol/L Carbon Dioxide 29 (22-30) mmol/L Anion Gap 10 mmol/L BUN 19 (9-20) mg/dL Creatinine 0.97 (0.66-1.25) mg/dL Est GFR (CKD-EPI)AfAm >90 (>60 ml/min/1.73 sqM) Est GFR (CKD-EPI)NonAf 79 (>60 ml/min/1.73 sqM) Glucose 148 H (74-99) mg/dL Calcium 9.7 (8.4-10.2) mg/dL Total Bilirubin 0.5 (0.2-1.3) mg/dL AST 28 (17-59) U/L ALT 22 (4-49) U/L Alkaline Phosphatase 73 (38-126) U/L Creatine Kinase 80 (55-170) U/L Total Protein 7.3 (6.3-8.2) g/dL Albumin 4.5 (3.5-5.0) g/dL Coronavirus (PCR) (Not Detectd) 04/21/21 Range/Units 22:00 WBC (3.8-10.6) k/uL RBC (4.30-5.90) m/uL Hgb (13.0-17.5) gm/dL Hct (39.0-53.0) % MCV (80.0-100.0) fL MCH (25.0-35.0) pg MCHC (31.0-37.0) g/dL RDW (11.5-15.5) % Plt Count (150-450) k/uL MPV Neutrophils % % Lymphocytes % % Monocytes % % Eosinophils % % Basophils % % Neutrophils # (1.3-7.7) k/uL Lymphocytes # (1.0-4.8) k/uL Monocytes # (0-1.0) k/uL Eosinophils # (0-0.7) k/uL Basophils # (0-0.2) k/uL PT (9.0-12.0) sec INR (<1.2) APTT (22.0-30.0) sec Sodium (137-145) mmol/L Potassium (3.5-5.1) mmol/L Chloride (98-107) mmol/L Carbon Dioxide (22-30) mmol/L Anion Gap mmol/L BUN (9-20) mg/dL Creatinine (0.66-1.25) mg/dL Est GFR (CKD-EPI)AfAm (>60 ml/min/1.73 sqM) Est GFR (CKD-EPI)NonAf (>60 ml/min/1.73 sqM) Glucose (74-99) mg/dL Calcium (8.4-10.2) mg/dL Total Bilirubin (0.2-1.3) mg/dL AST (17-59) U/L ALT (4-49) U/L Alkaline Phosphatase (38-126) U/L Creatine Kinase (55-170) U/L Total Protein (6.3-8.2) g/dL Albumin (3.5-5.0) g/dL Coronavirus (PCR) Detected A (Not Detectd) Disposition Clinical Impression: Vertigo, Fall Disposition: ADMITTED IP TO THIS [facility] Condition: Serious Referrals: Damon Rodriguez MD [Primary Care Provider] - 1-2 days
[2021-04-21 15:39] LABS: Basophils # (A) 0.1 k/uL (0-0.2); Basophils % (A) 1 %; Eosinophils # (A) 0.1 k/uL (0-0.7); Eosinophils % (A) 2 %; HCT 40.1 % (39.0-53.0); HGB 13.2 gm/dL (13.0-17.5); Lymphocytes # (A) 0.7 k/uL (1.0-4.8); Lymphocytes % (A) 9 %; MCH 30.9 pg (25.0-35.0); MCHC 32.8 g/dL (31.0-37.0); MCV 94.4 fL (80.0-100.0); Mean Platelet Volume 7.2; Monocytes # (A) 0.7 k/uL (0-1.0); Monocytes % (A) 9 %; Neutrophils # (A) 6.1 k/uL (1.3-7.7); Neutrophils % (A) 77 %; Platelet Count 228 k/uL (150-450); RBC 4.25 m/uL (4.30-5.90); WBC 7.9 k/uL (3.8-10.6)
[2021-04-21 15:46] LABS: Partial Thromboplastin Time 29.1 sec (22.0-30.0)
[2021-04-21] MEDS ORDERED: MORPHINE SULFATE 4 MG/ML SYRINGE IVP STA (15:50)
[2021-04-21 16:23] LABS: ALT 22 U/L (4-49); AST 28 U/L (17-59); African American GFR (CKD) >90 (>60 ml/min/1.73 sqM); Albumin 4.5 g/dL (3.5-5.0); Alkaline Phosphatase 73 U/L (38-126); Anion Gap 10 mmol/L; Blood Urea Nitrogen 19 mg/dL (9-20); Calcium 9.7 mg/dL (8.4-10.2); Carbon Dioxide 29 mmol/L (22-30); Chloride 96 mmol/L (98-107); Creatine Kinase 80 U/L (55-170); Glucose 148 mg/dL (74-99); Non-African American GFR(CKD) 79 (>60 ml/min/1.73 sqM); Potassium 4.3 mmol/L (3.5-5.1); Sodium 135 mmol/L (137-145); Total Bilirubin 0.5 mg/dL (0.2-1.3); Total Protein 7.3 g/dL (6.3-8.2)
--- NOTE | 2021-04-21 16:26 | XR ---
EXAMINATION TYPE: XR Hip Complete RT, 2 views DATE OF EXAM: 04/21/2021 Comparison: 01/09/2021 Clinical History: 70-year-old male pain from fall, injury Findings: Mild degenerative spurring of the right hip with preservation of hip joint space. Coils related to me sh repair along the midline lower pelvis. No acute fracture, subluxation, dislocation. Impression: Mild degenerative spurring at the right hip. No acute osseous abnormality seen.
[2021-04-21] MEDS ORDERED: NYSTATIN 100,000 UNIT/ML SUSP 500,000 UNIT/5 ML CUP PO PRN (21:46)
[2021-04-21] MEDS: traMADol 50 MG TAB PO PRN (21:59)
[2021-04-21] MEDS ORDERED: NALOXONE 0.4 MG/ML 1 ML VIAL IV PRN (22:25)
[2021-04-22] MEDS: MAGNESIUM OXIDE 400 MG TAB PO SCH ×5 (01:14→21:37)
[2021-04-22] MEDS: BACLOFEN 10 MG TAB PO PRN ×2 (01:14→10:27)
[2021-04-22] MEDS: traMADol 50 MG TAB PO PRN ×2 (05:57→15:21)
[2021-04-22 07:14] LABS: Glucose,Whole Blood 127 mg/dL (75-99)
[2021-04-22] MEDS ORDERED: HEPARIN SODIUM,PORCINE/PF 5,000 UNIT/0.5 ML SYRINGE SQ SCH (09:00)
[2021-04-22] MEDS: SUCRALFATE 1 GM TAB PO SCH ×4 (10:06→21:17)
[2021-04-22] MEDS: ASPIRIN 81 MG PO SCH (10:06)
[2021-04-22] MEDS: GABAPENTIN 300 MG CAP PO SCH ×2 (10:06→21:37)
[2021-04-22] MEDS: amLODIPine 5 MG TAB PO SCH (10:06)
[2021-04-22] MEDS: CYANOCOBALAMIN 500 MCG TAB PO SCH (10:07)
[2021-04-22] MEDS: lisinopriL 20 MG TAB PO SCH ×2 (10:07→21:37)
[2021-04-22] MEDS: DULoxetine HCL 60 MG CAPSULE.DR PO SCH ×2 (10:07→21:37)
[2021-04-22] MEDS: PANTOPRAZOLE 40 MG TABLET PO SCH ×3 (10:07→21:17)
[2021-04-22] MEDS ORDERED: traMADol 50 MG TAB PO STA (10:22)
--- NOTE | 2021-04-22 10:25 | P.HPIM ---
History of Present Illness This is a pleasant 70 years old male with past medical history of Atrial Fibrillation, Diabetes Mellitus, GERD, Hyperlipidemia, Hypertension, Memory Impairment, Osteoarthritis , frequent falls, vertigo, chronic headache, chronic back pain status post surgery Patient was recently discharged from this facility 04/02-04/08 for his fungal esophagitis with duodenal ulcer. At that time patient refused to go to subacute rehab despite recommendation. Biopsy from last time showing mild chronic gastritis, H. pylori negative. Chronic esophagitis with reflux esophagitis Now presents because of fall. Patient states that yesterday he was sleeping he woke up in the morning to go to the restroom but he fell on the floor and he could not get up for 6-7 hours total [facility] found him and brought him to the hospital. Patient has been complaining from dizziness for a few days, he wasn't sure but he thinks the room is spinning right now. Also yesterday when he fell he has some blurred vision but this resolved now. No slurred speech. No difficulty moving upper or lower extremities. Also has been complaining of from low back pain which is an you for him for about 5-6 days. Pain is in the lower back and make him distressed. However pain is not radiating. Straight leg test of the right side is positive Patient also has been complaining of from headache about 8/10 in severity, however he states that is been chronic and start getting worse when they stopped his furosemide because of his esophagitis/duodenal ulcer History is pain and abdominal pain and tenderness he had last time feels better today He had some urinary retention last night and they had to straight cath him. Vitas looks stable. Afebrile Labs are unremarkable including CBC, INR, BMP, liver enzymes. Coronavirus is detected Right hip x-ray: Degenerative spurring. No acute abnormality Review of Systems CONSTITUTIONAL: No fever, no malaise, no fatigue. HEENT: No recent visual problems or hearing problems. Denied any sore throat. CARDIOVASCULAR: No orthopnea, PND, no palpitations, no syncope. PULMONARY: No shortness of breath, no cough, no hemoptysis. GASTROINTESTINAL: No diarrhea, no nausea, no vomiting, no abdominal pain. Normoactive bowel sounds. NEUROLOGICAL: no weakness, no numbness. HEMATOLOGICAL: Denies any bleeding or petechiae. GENITOURINARY: Denies any burning micturition, frequency, or urgency. MUSCULOSKELETAL/RHEUMATOLOGICAL: Denies any joint pain, swelling, no joint deformity. ENDOCRINE: Denies any polyuria or polydipsia. Past Medical History Past Medical History: Atrial Fibrillation, Cancer, Diabetes Mellitus, GERD/Reflux, Hyperlipidemia, Hypertension, Memory Impairment, Osteoarthritis (OA), Pneumonia Additional Past Medical History / Comment(s): FELL 07/09/19 FX LT RADIUS, FREQUENT FALLS-REASON UNKNOWN. 03-10-16 FELL/FX RT FIBULA, VERTIGO , chronic headaches, BREAST CANCER History of Any Multi-Drug Resistant Organisms: CRE, MRSA Date of last positivie culture/infection: MRSA-03/11 MDRO Source:: Source unknown-MRSA Past Surgical History: Back Surgery, Breast Surgery, Orthopedic Surgery Additional Past Surgical History / Comment(s): Bilateral mastectomy with right sided lymp node removal due to cancer, R knee cap removed, Back surgery for herniated disc., Brain stem surgery for decompression-for dizziness, right ankle ORIF, bilateral wrist fractures SX Past Anesthesia/Blood Transfusion Reactions: No Reported Reaction Past Psychological History: No Psychological Hx Reported Smoking Status: Former smoker Past Alcohol Use History: None Reported Additional Past Alcohol Use History / Comment(s): STARTED SMOKING AT AGE 18, SMOKE A PIPE GOES THRU A PACK OF PIPE TOBACCO/DAY quit smoking in 2005 Past Drug Use History: None Reported - Past Family History Father History Unknown: Yes Family Medical History: Congestive Heart Failure (CHF) Additional Family Medical History / Comment(s): at 68. Mother History Unknown: Yes Family Medical History: Hypertension Additional Family Medical History / Comment(s): Pulmonary hypertension. at 78. Medications and Allergies Home Medications Medication Instructions Recorded Confirmed Type metFORMIN HCL [Glucophage] 500 mg PO BID 12/17/18 04/21/21 History Metoprolol Tartrate [Lopressor] 50 mg PO TID 11/06/19 04/21/21 History Atorvastatin [Lipitor] 40 mg PO HS 06/18/20 04/21/21 History DULoxetine HCL [Cymbalta] 60 mg PO BID 06/18/20 04/21/21 History Baclofen [Lioresal] 20 mg PO BID PRN #6 tab 07/07/20 04/21/21 Rx lisinopriL [Prinivil] 20 mg PO BID 10/11/20 04/21/21 History Gabapentin [Neurontin] 300 mg PO BID #6 cap 10/22/20 04/21/21 Rx Folic Acid 1 mg PO DAILY@1200 #30 tab 12/23/20 04/21/21 Rx Magnesium Oxide [Mag-Ox] 400 mg PO TID #90 tab 12/23/20 04/21/21 Rx Thiamine [Vitamin B-1] 100 mg PO DAILY@1200 #30 tab 12/23/20 04/21/21 Rx Multivitamins, Thera [Multivitamin 1 tab PO DAILY@1200 01/09/21 04/21/21 History (formulary)] Triamcinolone 0.1% Ointment 1 applic TOPICAL BID 01/09/21 04/21/21 History [Kenalog 0.1% Ointment] Pyridoxine [Vitamin B-6] 50 mg PO DAILY #30 tab 01/12/21 04/21/21 Rx Cyanocobalamin [Vitamin B-12] 1,000 mcg PO DAILY #30 tab 03/03/21 04/21/21 Rx Aspirin 81 mg PO DAILY #30 tab 04/08/21 04/21/21 Rx Pantoprazole Sodium [Protonix] 40 mg PO BID #60 tab 04/08/21 04/21/21 Rx Sucralfate [Carafate] 1 gm PO AC-TID #120 tab 04/08/21 04/21/21 Rx amLODIPine [Norvasc] 5 mg PO DAILY #30 tab 04/08/21 04/21/21 Rx hydrALAZINE HCL [Apresoline] 25 mg PO BID PRN #60 tab 04/08/21 04/21/21 Rx traMADol HCl [Ultram] 50 mg PO QID PRN 3 Days #12 tab 04/08/21 04/21/21 Rx Calcium Carbonate [Tums] 500 mg PO TID 04/21/21 04/21/21 History Nystatin 100,000 Unit/ml Susp 500,000 unit PO QID PRN 04/21/21 04/21/21 History [Mycostatin Oral Susp] Allergies Allergy/AdvReac Type Severity Reaction Status Date / Time cephalexin monohydrate Allergy Anaphylaxis Verified 04/21/21 16:10 [From Keflex] Cephalosporins Allergy Anaphylaxis Verified 04/21/21 16:10 Penicillins Allergy Anaphylaxis Verified 04/21/21 16:10 Physical Exam Vitals: Vital Signs Temp Pulse Pulse Resp BP BP Pulse Ox 04/22/21 00:52 98.3 F 92 18 142/85 94 L 04/21/21 23:30 98.3 F 100 19 100/74 93 L 04/21/21 20:00 78 16 122/67 97 04/21/21 17:00 69 18 147/92 97 04/21/21 14:42 98.9 F 91 18 125/99 95 Intake and Output 04/21/21 04/22/21 04/22/21 22:59 06:59 14:59 Output Total 1150 Balance -1150 Output: Urine 1150 Straight 1150 Other: Weight 140.614 kg GENERAL: The patient is alert and oriented x3, not in any acute distress. Well developed, well nourished. HEENT: Pupils are round and equally reacting to light. EOMI. No scleral icterus. No conjunctival pallor. Normocephalic, atraumatic. No pharyngeal erythema. No thyromegaly. CARDIOVASCULAR: S1 and S2 present. No murmurs, rubs, or gallops. PULMONARY: Chest is clear to auscultation, no wheezing or crackles. ABDOMEN: Soft, nontender, nondistended, normoactive bowel sounds. No palpable organomegaly. -MUSCULOSKELETAL: No joint swelling or deformity. positive right sided straight leg test EXTREMITIES: No cyanosis, clubbing, or pedal edema. NEUROLOGICAL: Gross neurological examination did not reveal any focal deficits. Cranial nerves are grossly intact. Sensation is intact. Strength is 5/5 in all extremities. Meningeal signs are absent SKIN: No rashes. No petechiae Results CBC & Chem 7: 04/21/21 15:28 04/21/21 15:28 Labs: Abnormal Lab Results - Last 24 Hours (Table) 04/21/21 04/21/21 04/21/21 Range/Units 15:28 15: 22:00 RBC 4.25 L (4.30-5.90) m/uL Lymphocytes # 0.7 L (1.0-4.8) k/uL Sodium 135 L (137-145) mmol/L Chloride 96 L (98-107) mmol/L Glucose 148 H (74-99) mg/dL POC Glucose (mg/dL) (75-99) mg/dL Coronavirus (PCR) Detected A (Not Detectd) 04/22/21 Range/Units 07:09 RBC (4.30-5.90) m/uL Lymphocytes # (1.0-4.8) k/uL Sodium (137-145) mmol/L Chloride (98-107) mmol/L Glucose (74-99) mg/dL POC Glucose (mg/dL) 127 H (75-99) mg/dL Coronavirus (PCR) (Not Detectd) Thrombosis Risk Factor Assmnt - Choose All That Apply Any of the Below Risk Factors Present?: Yes Each Factor Represents 1 point: Obesity (BMI >25), Swollen legs (current) Other Risk Factors: Yes Each Risk Factor Represents 2 Points: Age 61-74 years Other congenital or acquired thrombophilia - If yes, enter type in comment: No Thrombosis Risk Factor Assessment Total Risk Factor Score: 4 Thrombosis Risk Factor Assessment Level: Moderate Risk Assessment and Plan Assessment: Falls without losing consciousness Dizziness with possible vertigo Low back pain with positive right sided straight leg test Recent diagnosis of fungal esophagitis, also reflux esophagitis. Currently his epigastric pain is improving Gastritis with superficial ulcers with duodenal ulcer Hypertension Chronic kidney disease, stage II paroxysmal atrial fibrillation, not on anticoagulation Diabetes mellitus GERD Hypertension Hyperlipidemia History of memory impairment History of osteoarthritis and chronic low back pain status postsurgery History of frequent falls History of vertigo History of chronic headache Obesity with BMI of 40.9 Plan: This is a pleasant 70 years old male who presents because of dizziness and a fall, also he has acute low back pain with positive straight leg test Continue with baby aspirin 81 mg Consult neurology team. Continue with Ultram for back pain keep checking bladder scan we will check vitamin B12 and folate Labs and medication were reviewed.. Continue same treatment. Continue with symptomatic treatment. Resume home medication. Monitor lytes and vitals. DVT and GI prophylaxis. Further recommendations depends on the clinical course of the patient DVT prophylaxis: Subcutaneous heparin GI Prophylaxis: Ppi and Carafate PT/OT: Pending Prognosis is guarded Discussed with the bedside nurse
[2021-04-22] MEDS: FOLIC ACID 1 MG TAB PO SCH (10:52)
[2021-04-22] MEDS: THIAMINE 100 MG TAB PO SCH (10:52)
[2021-04-22 12:31] LABS: Glucose,Whole Blood 148 mg/dL (75-99)
[2021-04-22 13:54] LABS: Glucose,Whole Blood 183 mg/dL (75-99)
--- NOTE | 2021-04-22 15:17 | XR ---
EXAMINATION TYPE: XR chest 1V DATE OF EXAM: 04/22/2021 COMPARISON: Chest x-ray 04/08/2021 HISTORY: Covid infection TECHNIQUE: Single frontal view of the chest is obtained. FINDINGS: There is no focal air space opacity, pleural effusion, or pneumothorax seen. The cardiac silhouette size is within normal limits. Right hemidiaphragm is again elevated. The osseous structur es are intact. IMPRESSION: No acute process.
[2021-04-22 16:33] LABS: Folate, Serum >20.00 ng/mL (4.40-31.00)
--- NOTE | 2021-04-22 16:46 | P.CNNES ---
History of Present Illness Consult date: 04/22/21 Requesting physician: Isidro Moran Reason for Consult: vertigo and low back pain History of Present Illness: Patient is a 70-year-old male came to the hospital by ambulance yesterday at 2:38 PM. As per EMS flow sheet, when they arrived, patient was noted to be alert and oriented 2, lying on the carpeted hallway floor. Patient was found lying on the floor by physical therapy that had arrived for patient scheduled therapy session. Patient mentioned that he got out of bed at approximately 7:45 am and was coming out of the bathroom when he became dizzy and fell to the floor. Patient complained of pain all over. Patient states that he was not able to get up from there for 7 hours until the therapist came and found him on the floor. There was no obvious signs of injury upon assessment. nurse monitoring showed sinus rhythm, saturation 98% on room air. Blood glucose level was 160. Skin was pink warm and very dry with poor turgor. Lungs sounds were clear. Pupils were equal, patient denied any chest pain difficulty breathing or abdominal pain tenderness nausea or vomiting or headache. No neuro deficits. Patient's vitals at the scene was blood pressure 165/97, pulse rate 88 respiration 18, saturation 98% and blood sugar 160. Vital signs on arrival blood pressure 125/99, pulse rate 91 temperature 98.9. Patient's hip x-ray showed mild degenerative spurring of the right hip. No acute process. Patient states that he did not pass out or lost consciousness with the fall. He states that he has history of chronic vertigo and dizziness, history of BPPV. Patient has history of brain surgery 3 for some microdecompression involving the right occipital region. Patient states that he has chronic headaches in the scar tissue. The patient has been fully vaccinated, although has not received the booster shot for Panto[place] virus. Patient at present complaining of pain in his right hip region. Patient's blood test shows normal WBC hemoglobin 13.2, normal platelets 228. PT/PTT normal, sodium 135 potassium 4.3, normal renal function. Normal hepatic panel. Pantoja virus is positive. Patient's previous MRI of the lumbar spine from 06/24/2020 showed broad based disc bulge L4 5 with mild anterior thecal sac flattening. Mild to moderate bilateral foraminal narrowing L4 5. Milder foraminal narrowing. Small left paracentral protrusion has some mild anterior thecal sac compression at L1 2. CTA of head and neck 02/28/2021 showed no significant stenosis and, not internal carotid arteries bilaterally. No significant aneurysm or stenosis at the level of q[place] of [place]. Patient's computed tomography scan of head from 01/14/2021 shows right skull base surgery with some encephalomalacia right cerebellar hemisphere. No change compared to old exam. Patient's last MRI of the brain from 05/09/2019 shows postprocedure changes. Consider contrast enhanced exam for better evaluation if infection is suspected clinically, interval change in the appearance of the inferior cerebellum on the right is indeterminate but may represent normal evolution of postoperative findings. Patient's previous MRI of the brain from 04/04/2017 showed near occlusive thrombus involving the uppermost right jugular vein, right sigmoid sinus and right transverse sinus. Patient had an EEG performed twice on 05/09/2019 and 03/01/2021, both of them revealed background slowing consistent with encephalopathy. Patient's last B12 was borderline 299 patient was started on vitamin B12 oral replacement, vitamin B6 was low 6. Folate was greater than 20. TSH normal. Review of Systems As above in detail. All other 14 point of review of systems were reviewed and noncontributory. Patient does feel tired. Has some cough. Congestion. No fever or chills. No double vision. Patient does have chronic headaches pointing to the right occipital region. No focal numbness tingling. Patient complains of right hip and leg pain. Patient has frequent falls. Past Medical History Past Medical History: Atrial Fibrillation, Cancer, Diabetes Mellitus, GERD/Reflux, Hyperlipidemia, Hypertension, Memory Impairment, Osteoarthritis (OA), Pneumonia Additional Past Medical History / Comment(s): FELL 07/09/19 FX LT RADIUS, FREQUENT FALLS-REASON UNKNOWN. 03-10-16 FELL/FX RT FIBULA, VERTIGO , chronic headaches, BREAST CANCER History of Any Multi-Drug Resistant Organisms: CRE, MRSA Date of last positivie culture/infection: MRSA-03/11 MDRO Source:: Source unknown-MRSA Past Surgical History: Back Surgery, Breast Surgery, Orthopedic Surgery Additional Past Surgical History / Comment(s): Bilateral mastectomy with right sided lymp node removal due to cancer, R knee cap removed, Back surgery for herniated disc., Brain stem surgery for decompression-for dizziness, right ankle ORIF, bilateral wrist fractures SX Past Anesthesia/Blood Transfusion Reactions: No Reported Reaction Past Psychological History: No Psychological Hx Reported Smoking Status: Former smoker Past Alcohol Use History: None Reported Additional Past Alcohol Use History / Comment(s): STARTED SMOKING AT AGE 18, SMOKE A PIPE GOES THRU A PACK OF PIPE TOBACCO/DAY quit smoking in 2005 Past Drug Use History: None Reported - Past Family History Father History Unknown: Yes Family Medical History: Congestive Heart Failure (CHF) Additional Family Medical History / Comment(s): at 68. Mother History Unknown: Yes Family Medical History: Hypertension Additional Family Medical History / Comment(s): Pulmonary hypertension. at 78. Medications and Allergies Home Medications Medication Instructions Recorded Confirmed Type metFORMIN HCL [Glucophage] 500 mg PO BID 12/17/18 04/21/21 History Metoprolol Tartrate [Lopressor] 50 mg PO TID 11/06/19 04/21/21 History Atorvastatin [Lipitor] 40 mg PO HS 06/18/20 04/21/21 History DULoxetine HCL [Cymbalta] 60 mg PO BID 06/18/20 04/21/21 History Baclofen [Lioresal] 20 mg PO BID PRN #6 tab 07/07/20 04/21/21 Rx lisinopriL [Prinivil] 20 mg PO BID 10/11/20 04/21/21 History Gabapentin [Neurontin] 300 mg PO BID #6 cap 10/22/20 04/21/21 Rx Folic Acid 1 mg PO DAILY@1200 #30 tab 12/23/20 04/21/21 Rx Magnesium Oxide [Mag-Ox] 400 mg PO TID #90 tab 12/23/20 04/21/21 Rx Thiamine [Vitamin B-1] 100 mg PO DAILY@1200 #30 tab 12/23/20 04/21/21 Rx Multivitamins, Thera [Multivitamin 1 tab PO DAILY@1200 01/09/21 04/21/21 History (formulary)] Triamcinolone 0.1% Ointment 1 applic TOPICAL BID 01/09/21 04/21/21 History [Kenalog 0.1% Ointment] Pyridoxine [Vitamin B-6] 50 mg PO DAILY #30 tab 01/12/21 04/21/21 Rx Cyanocobalamin [Vitamin B-12] 1,000 mcg PO DAILY #30 tab 03/03/21 04/21/21 Rx Aspirin 81 mg PO DAILY #30 tab 04/08/21 04/21/21 Rx Pantoprazole Sodium [Protonix] 40 mg PO BID #60 tab 04/08/21 04/21/21 Rx Sucralfate [Carafate] 1 gm PO AC-TID #120 tab 04/08/21 04/21/21 Rx amLODIPine [Norvasc] 5 mg PO DAILY #30 tab 04/08/21 04/21/21 Rx hydrALAZINE HCL [Apresoline] 25 mg PO BID PRN #60 tab 04/08/21 04/21/21 Rx traMADol HCl [Ultram] 50 mg PO QID PRN 3 Days #12 tab 04/08/21 04/21/21 Rx Calcium Carbonate [Tums] 500 mg PO TID 04/21/21 04/21/21 History Nystatin 100,000 Unit/ml Susp 500,000 unit PO QID PRN 04/21/21 04/21/21 History [Mycostatin Oral Susp] Allergies Allergy/AdvReac Type Severity Reaction Status Date / Time cephalexin monohydrate Allergy Anaphylaxis Verified 04/21/21 16:10 [From Keflex] Cephalosporins Allergy Anaphylaxis Verified 04/21/21 16:10 Penicillins Allergy Anaphylaxis Verified 04/21/21 16:10 Physical Examination - Vital Signs Vital Signs: Vital Signs Temp Pulse Pulse Resp BP BP Pulse Ox 04/22/21 07:00 98.3 F 89 17 146/94 94 L 04/22/21 00:52 98.3 F 92 18 142/85 94 L 04/21/21 23:30 98.3 F 100 19 100/74 93 L 04/21/21 20:00 78 16 122/67 97 04/21/21 17:00 69 18 147/92 97 04/21/21 14:42 98.9 F 91 18 125/99 95 Intake and Output 04/21/21 04/22/21 04/22/21 22:59 06:59 14:59 Intake Total 118 Output Total 1150 Balance -1150 118 Intake: Oral 118 Output: Urine 1150 Straight 1150 Other: Weight 140.614 kg Patient is an elderly male, in no acute distress. Patient is alert awake oriented to time place and person. Speech and language functions are normal. Attention, concentration and fund of knowledge is adequate. On cranial examination, pupils are round and reacting to light, visual bishop are full on confrontation, extraocular muscles are intact with mild, nonsustained nystagmus looking to the right and left. Face is symmetric, tongue protrudes to the midline. Palatal elevation and sensation normal, hearing and shoulder shrug normal, facial sensation normal. Shoulder shrug normal. On muscle strength testing, there is no pronator drift and the strength is normal in arms and legs distally and proximally, except right hip flexion, which was weak because of significant pain in the hip and low back region. Deep tendon reflexes diminished and plantars downgoing bilaterally. Sensory to touch is equal with no neglect. Cerebellar function showed no ataxia for [id number] testing, although patient is slightly tremulous. Tone and bulk of muscles normal. Gait deferred. On general examination, there is no carotid bruit or murmur, S1-S2 audible. Abdomen is soft nontender. Chest is clear. Peripheral pulses are present. Patient has mild peripheral edema. Results - Laboratory Findings CBC and BMP: 04/22/21 19:11 04/22/21 19:11 Abnormal Lab Findings: Abnormal Labs 04/21/21 04/21/21 04/21/21 15:28 15:28 22:00 RBC 4.25 L Lymphocytes # 0.7 L Sodium 135 L Chloride 96 L Glucose 148 H POC Glucose (mg/dL) Coronavirus (PCR) Detected A 04/22/21 07:09 RBC Lymphocytes # Sodium Chloride Glucose POC Glucose (mg/dL) 127 H Coronavirus (PCR) Assessment and Plan Assessment: * History of recurrent falls, probably multifactorial due to reasons as mentioned below. 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 * History of BPPV, status post microvascular decompression right occipital region * Chronic headaches * Acute Covid-19 infection * Right hip pain * Diabetes * Paroxysmal atrial fibrillation, currently on aspirin, not on anticoagulation. * Hypertension * Obesity Plan: * Patient's examination is nonfocal. No changes compared to the last exam. * We will check computed tomography scan of the head to rule out any secondary causes. * Continue aspirin. Patient has history of atrial fibrillation, currently not on anticoagulation. Would defer to IM. * B12 folate. Continue vitamin B12 orally daily. * PT OT evaluate gait. * Neurologically clear if the CT head comes back normal and cleared by PT and OT. * Discussed with Dr. moran.
[2021-04-22 17:16] LABS: Glucose,Whole Blood 169 mg/dL (75-99)
--- NOTE | 2021-04-22 17:55 | CT ---
EXAMINATION TYPE: CT brain wo con for TPA CT DLP: 900.1 mGycm, Automated exposure control for dose reduction was used. DATE OF EXAM: 04/22/2021 5:45 PM COMPARISON: Prior CT Brain from 02/28/2021. CLINICAL INDICATION:Male, 70 years old with history of Neuro deficit, acute, stroke suspected, Altere d mental status. TECHNIQUE: Brain: Multiple axial CT images of the brain were obtained without IV contrast. FINDINGS: Brain: Extra-axial spaces: No abnormal extra-axial fluid collections. Ventricular system: Within normal limits Cerebral parenchyma: No acute intraparenchymal hemorrhage or mass effect. The hyde-white junction is well differentiated. Cerebellum: Simple appearing right cerebellar hemisphere hypoattenuating region likely from remote in jury/intervention . Mass effect: No evidence of midline shift. Intracranial vasculature: Atherosclerotic calcifications of the intracranial vessels. Soft tissues: Normal. Calvarium/osseous structures: No depressed skull fracture. Paranasal sinuses and mastoid air cells: Clear. Visualized orbits: Orbital contents are intact. IMPRESSION: 1. No acute intracranial process. 2. Stable right posterior cranial fossa surgical changes.
--- NOTE | 2021-04-22 18:49 | CT ---
EXAMINATION TYPE: CT angio head neck CT DLP: 595.4 mGycm, Automated exposure control for dose reduction was used. DATE OF EXAM: 04/22/2021 6:39 PM COMPARISON: 02/28/2021. CLINICAL INDICATION:Male, 70 years old with history of change in mental status, Altered mental status . TECHNIQUE: Axially acquired helical CT angiogram of the head and neck was obtained with contrast util izing 75 cc of Isovue-370 administered intravenously. Axial images are supplemented with 3D reconstru ctions which were post-processed at an independent workstation. FINDINGS: CTA HEAD: No evidence of acute intracranial hemorrhage, mass effect, or midline shift. The ventricles, sulci, a nd cisterns are unremarkable. The visualized portions of the internal carotid arteries, middle cerebral arteries, anterior cerebral arteries, and posterior cerebral arteries are patent. Institution of post surgical changes of the ri t posterior cranial fossa. The basilar and vertebral arteries are patent. CTA NECK: Right Carotid System: The common carotid artery and external carotid artery are patent. The carotid bifurcation demonstrate s no evidence of hemodynamically significant stenosis. The remaining portions of the internal carotid artery demonstrate normal size without significant narrowing. Left Carotid System: The common carotid artery and external carotid artery are patent. The carotid bifurcation demonstrate s no evidence of hemodynamically significant stenosis. The remaining portions of the internal carotid artery demonstrate normal size without significant narrowing. Vertebral arteries are patent without evidence hemodynamically significant stenosis. There is a three-vessel aortic arch. The origins of the great vessels are patent. No evidence of hemo dynamically significant stenosis. IMPRESSION: 1. No evidence of dissection of the cervical internal carotid arteries or vertebral arteries or any e vidence of significant stenosis at the carotid bifurcations. 2. No evidence of high-grade stenosis or intracranial aneurysm.
[2021-04-22] MEDS ORDERED: Alteplase PER PHARMACY Stroke 1 EACH MISC MISCELLANE PRN (19:07)
[2021-04-22] MEDS ORDERED: ALTEPLASE BOLUS FOR STROKE 9 MG in EMPTY SYRINGE 1 SYR IV STA (19:13)
[2021-04-22] MEDS ORDERED: ALTEPLASE 81 MG in EMPTY BAG 1 BAG IV STA (19:13)
[2021-04-22 19:31] LABS: Basophils # (A) 0.1 k/uL (0-0.2); Basophils % (A) 1 %; Eosinophils # (A) 0.1 k/uL (0-0.7); Eosinophils % (A) 1 %; HCT 40.1 % (39.0-53.0); HGB 13.2 gm/dL (13.0-17.5); Lymphocytes # (A) 1.5 k/uL (1.0-4.8); Lymphocytes % (A) 20 %; MCH 31.5 pg (25.0-35.0); MCV 95.5 fL (80.0-100.0); Mean Platelet Volume 7.2; Monocytes # (A) 0.6 k/uL (0-1.0); Monocytes % (A) 7 %; Neutrophils # (A) 5.1 k/uL (1.3-7.7); Neutrophils % (A) 68 %; Platelet Count 235 k/uL (150-450); RDW 13.6 % (11.5-15.5); WBC 7.5 k/uL (3.8-10.6)
[2021-04-22 19:41] LABS: ALT 22 U/L (4-49); AST 30 U/L (17-59); African American GFR (CKD) 71 (>60 ml/min/1.73 sqM); Albumin 4.2 g/dL (3.5-5.0); Albumin/Globulin Ratio 1.6; Alkaline Phosphatase 69 U/L (38-126); Anion Gap -20 mmol/L; Blood Urea Nitrogen 23 mg/dL (9-20); Calcium 9.5 mg/dL (8.4-10.2); Carbon Dioxide 29 mmol/L (22-30); Chloride 93 mmol/L (98-107); Globulin 2.7 g/dL; Glucose 135 mg/dL (74-99); Non-African American GFR(CKD) 62 (>60 ml/min/1.73 sqM); Potassium 4.4 mmol/L (3.5-5.1); Total Bilirubin 0.5 mg/dL (0.2-1.3); Total Protein 6.9 g/dL (6.3-8.2)
[2021-04-22 19:45] LABS: Partial Thromboplastin Time 30.5 sec (22.0-30.0); Prothrombin Time 10.6 sec (9.0-12.0)
[2021-04-22 19:53] LABS: Sodium 102 mmol/L (137-145)
[2021-04-22 20:01] LABS: Glucose,Whole Blood 120 mg/dL (75-99)
[2021-04-22] MEDS ORDERED: SODIUM CHLORIDE 0.9% 50 ML MINI-BAG IV ONE (20:11)
[2021-04-22] MEDS: ATORVASTATIN 40 MG TAB PO SCH (21:37)
[2021-04-23] MEDS: SUCRALFATE 1 GM TAB PO SCH ×3 (06:53→17:33)
[2021-04-23] MEDS: PANTOPRAZOLE 40 MG TABLET PO SCH ×2 (06:53→17:33)
[2021-04-23 06:56] LABS: Glucose,Whole Blood 206 mg/dL (75-99)
[2021-04-23 08:06] LABS: Basophils % (A) 0 %; Eosinophils # (A) 0.1 k/uL (0-0.7); Eosinophils % (A) 2 %; HGB 13.4 gm/dL (13.0-17.5); Lymphocytes # (A) 1.6 k/uL (1.0-4.8); Lymphocytes % (A) 25 %; MCH 31.5 pg (25.0-35.0); MCHC 32.7 g/dL (31.0-37.0); MCV 96.3 fL (80.0-100.0); Mean Platelet Volume 7.7; Monocytes # (A) 0.6 k/uL (0-1.0); Monocytes % (A) 9 %; Neutrophils # (A) 3.8 k/uL (1.3-7.7); Neutrophils % (A) 62 %; Platelet Count 219 k/uL (150-450); RBC 4.26 m/uL (4.30-5.90); WBC 6.2 k/uL (3.8-10.6)
[2021-04-23 08:15] LABS: Calcium 9.3 mg/dL (8.4-10.2); Total Bilirubin 0.7 mg/dL (0.2-1.3)
[2021-04-23 08:25] LABS: Potassium 4.4 mmol/L (3.5-5.1)
[2021-04-23] MEDS ORDERED: MORPHINE SULFATE 2 MG/ML SYRINGE IVP PRN (08:32)
[2021-04-23] MEDS ORDERED: hydrALAZINE HCL 25 MG TAB PO PRN (08:44)
[2021-04-23] MEDS ORDERED: hydrALAZINE HCL 25 MG TAB PO SCH (09:00)
[2021-04-23] MEDS ORDERED: METOPROLOL TARTRATE 12.5 MG TAB PO SCH (09:00)
[2021-04-23] MEDS: GABAPENTIN 300 MG CAP PO SCH ×2 (09:02→22:16)
[2021-04-23] MEDS: MAGNESIUM OXIDE 400 MG TAB PO SCH ×3 (09:02→22:15)
[2021-04-23] MEDS: ASPIRIN 81 MG PO SCH (09:02)
[2021-04-23] MEDS: DULoxetine HCL 60 MG CAPSULE.DR PO SCH ×2 (09:02→22:16)
[2021-04-23] MEDS: amLODIPine 5 MG TAB PO SCH (09:02)
[2021-04-23] MEDS: CYANOCOBALAMIN 500 MCG TAB PO SCH (09:02)
[2021-04-23] MEDS: SODIUM CHLORIDE 0.9% 1,000 ML IV SCH ×2 (09:19→22:10)
[2021-04-23] MEDS: guaiFENesin-DM 100-10MG/5ML 10 ML CUP PO SCH ×3 (09:20→17:33)
[2021-04-23 11:50] LABS: Glucose,Whole Blood 236 mg/dL (75-99)
--- NOTE | 2021-04-23 12:23 | P.CNPUL ---
History of Present Illness Consult date: 04/23/21 Requesting physician: Isidro E Sheet Reason for consult: other (Critical care management) Chief complaint: Dizziness, falls History of present illness: This is a 70-year-old male patient who follows with Dr. Rodriguez as his primary care provider. He has a history of atrial fibrillation, breast cancer with bilateral mastectomy and right-sided lymph node removal, diabetes mellitus, gastroesophageal reflux disease, hyperlipidemia, hypertension, severe vertigo and was planning to have a brainstem surgery for decompression at [facility] last week however the patient was hospitalized and the procedure was not done. If the patient has sustained multiple falls and multiple fractures. He came into the emergency room on 04/21/2021 with dizziness and falls again. Apparently had fallen approximately 8 AM but was not found until 2 PM that same day. EMS was called and he was brought in for the same. He is having right hip pain and unable to stand. No acute fracture was seen on x-ray. Yesterday at C5 p.m. a code stroke was called and the patient is slightly was found to have intermittent jerking of the extremities and not responding appropriately. Dr. Huerta was on the tele prompter for the stroke and order CT angiogram of the head and neck along with a computed tomography scan of the brain. He was subsequently transferred to the intensive care unit for possible TPA infusion. Computed tomography scan of the brain revealed no acute intracranial process. CT angiogram revealed no evidence of dissection of the cervical internal carotid arteries or vertebral arteries or any evidence of significant stenosis at the carotid bifurcations. No evidence of high-grade stenosis or intracranial aneurysm. TPA was not given. He is seen today in consultation in the ICU. He is awake and alert in no acute distress. He is maintaining O2 saturations in the 90s on room air. He has normal saline running at 75 ML's per hour. No falls while in the ICU. No neurological deficits. White count 6.2. Hemoglobin 13.4. Sodium 133. Potassium 4.4. Creatinine 1.45. Glucose 154. AST 34. ALT 19. Review of Systems REVIEW OF SYSTEMS: CONSTITUTIONAL: Ongoing issues with dizziness and falls. Denies any recent significant weight loss or weight gain. EYES: Denies change in vision. EARS, NOSE, MOUTH, THROAT: Denies headaches, denies sore throat. CARDIOVASCULAR: Denies chest pain, palpitations or syncopal episodes. RESPIRATORY: Denies shortness of breath, cough, congestion or hemoptysis. GASTROINTESTINAL: Denies change in appetite, denies abdominal pain GENITOURINARY: Denies hematuria, denies infections. MUSKULOSKELETAL: Denies pain, denies swelling. INTEGUMENTARY: Denies rash, denies eczema. NEUROLOGICAL: Dizziness and falls, no current seizure activity. PSYCHIATRIC: Denies anxiety, denies depression. HEMATOLOGIC/LYMPHATIC: Denies anemia, denies enlarged lymph nodes. Past Medical History Past Medical History: Atrial Fibrillation, Cancer, Diabetes Mellitus, GERD/Reflux, Hyperlipidemia, Hypertension, Memory Impairment, Osteoarthritis (OA), Pneumonia Additional Past Medical History / Comment(s): FELL 07/09/19 FX LT RADIUS, FREQUENT FALLS-REASON UNKNOWN. 03-10-16 FELL/FX RT FIBULA, VERTIGO , chronic headaches, BREAST CANCER History of Any Multi-Drug Resistant Organisms: CRE, MRSA Date of last positivie culture/infection: MRSA-03/11 MDRO Source:: Source unknown-MRSA Past Surgical History: Back Surgery, Breast Surgery, Orthopedic Surgery Additional Past Surgical History / Comment(s): Bilateral mastectomy with right sided lymp node removal due to cancer, R knee cap removed, Back surgery for herniated disc., Brain stem surgery for decompression-for dizziness, right ankle ORIF, bilateral wrist fractures SX Past Anesthesia/Blood Transfusion Reactions: No Reported Reaction Past Psychological History: No Psychological Hx Reported Smoking Status: Former smoker Past Alcohol Use History: None Reported Additional Past Alcohol Use History / Comment(s): STARTED SMOKING AT AGE 18, SMOKE A PIPE GOES THRU A PACK OF PIPE TOBACCO/DAY quit smoking in 2005 Past Drug Use History: None Reported - Past Family History Father History Unknown: Yes Family Medical History: Congestive Heart Failure (CHF) Additional Family Medical History / Comment(s): at 68. Mother History Unknown: Yes Family Medical History: Hypertension Additional Family Medical History / Comment(s): Pulmonary hypertension. at 78. Medications and Allergies Home Medications Medication Instructions Recorded Confirmed Type metFORMIN HCL [Glucophage] 500 mg PO BID 12/17/18 04/21/21 History Metoprolol Tartrate [Lopressor] 50 mg PO TID 11/06/19 04/21/21 History Atorvastatin [Lipitor] 40 mg PO HS 06/18/20 04/21/21 History DULoxetine HCL [Cymbalta] 60 mg PO BID 06/18/20 04/21/21 History Baclofen [Lioresal] 20 mg PO BID PRN #6 tab 07/07/20 04/21/21 Rx lisinopriL [Prinivil] 20 mg PO BID 10/11/20 04/21/21 History Gabapentin [Neurontin] 300 mg PO BID #6 cap 10/22/20 04/21/21 Rx Folic Acid 1 mg PO DAILY@1200 #30 tab 12/23/20 04/21/21 Rx Magnesium Oxide [Mag-Ox] 400 mg PO TID #90 tab 12/23/20 04/21/21 Rx Thiamine [Vitamin B-1] 100 mg PO DAILY@1200 #30 tab 12/23/20 04/21/21 Rx Multivitamins, Thera [Multivitamin 1 tab PO DAILY@1200 01/09/21 04/21/21 History (formulary)] Triamcinolone 0.1% Ointment 1 applic TOPICAL BID 01/09/21 04/21/21 History [Kenalog 0.1% Ointment] Pyridoxine [Vitamin B-6] 50 mg PO DAILY #30 tab 01/12/21 04/21/21 Rx Cyanocobalamin [Vitamin B-12] 1,000 mcg PO DAILY #30 tab 03/03/21 04/21/21 Rx Aspirin 81 mg PO DAILY #30 tab 04/08/21 04/21/21 Rx Pantoprazole Sodium [Protonix] 40 mg PO BID #60 tab 04/08/21 04/21/21 Rx Sucralfate [Carafate] 1 gm PO AC-TID #120 tab 04/08/21 04/21/21 Rx amLODIPine [Norvasc] 5 mg PO DAILY #30 tab 04/08/21 04/21/21 Rx hydrALAZINE HCL [Apresoline] 25 mg PO BID PRN #60 tab 04/08/21 04/21/21 Rx traMADol HCl [Ultram] 50 mg PO QID PRN 3 Days #12 tab 04/08/21 04/21/21 Rx Calcium Carbonate [Tums] 500 mg PO TID 04/21/21 04/21/21 History Nystatin 100,000 Unit/ml Susp 500,000 unit PO QID PRN 04/21/21 04/21/21 History [Mycostatin Oral Susp] Allergies Allergy/AdvReac Type Severity Reaction Status Date / Time cephalexin monohydrate Allergy Anaphylaxis Verified 04/21/21 16:10 [From Keflex] Cephalosporins Allergy Anaphylaxis Verified 04/21/21 16:10 Penicillins Allergy Anaphylaxis Verified 04/21/21 16:10 Physical Exam Vitals: Vital Signs Temp Pulse Pulse Resp BP BP Pulse Ox 04/23/21 11:00 84 17 123/72 94 L 04/23/21 10:00 89 18 114/45 92 L 04/23/21 09:00 81 22 107/66 93 L 04/23/21 08:00 98.4 F 90 18 118/69 93 L 04/23/21 07:00 19 112/64 94 L 04/23/21 06:00 87 17 122/90 92 L 04/23/21 05:00 79 17 122/79 93 L 04/23/21 04:00 98.7 F 88 18 152/87 94 L 04/23/21 03:00 89 18 146/83 94 L 04/23/21 02:00 85 20 126/70 90 L 04/23/21 01:00 91 18 123/78 91 L 04/23/21 00:10 89 18 123/78 92 L 04/23/21 00:00 98.9 F 90 20 81/57 92 L 04/22/21 23:00 91 147/73 95 04/22/21 22:00 82 26 H 129/76 94 L 04/22/21 21:00 80 12 102/79 95 04/22/21 20:02 98.7 F 04/22/21 19:18 98.2 F 89 18 115/79 94 L 04/22/21 18:31 97.9 F 89 18 124/75 96 04/22/21 17:20 91 16 128/51 94 L 04/22/21 15:32 18 04/22/21 14:38 97.8 F 100 18 138/83 96 Intake and Output 04/22/21 04/23/21 04/23/21 22:59 06:59 14:59 Intake Total 40 360 420 Output Total 350 0 Balance -310 360 420 Intake: IV 40 160 170 0.9 40 160 20 Sodium Chloride 0.9% 1, 150 000 ml @ 75 mls/hr IV . [id number] [facility] Rx#:[id number] Oral 200 250 Output: Urine 350 0 Other: Voiding Method Urinal Urinal # Voids 1 1 Weight 129.2 kg GENERAL EXAM: Alert, oriented 3, pleasant 70-year-old male patient, on room air, comfortable in no apparent distress. HEAD: Normocephalic. EYES: Normal reaction of pupils, equal size. NOSE: Clear with pink turbinates. THROAT: No erythema or exudates. NECK: No masses, no JVD. CHEST: No chest wall deformity. LUNGS: Equal air entry with no crackles, wheeze, rhonchi or dullness. CVS: S1 and S2 normal with no audible murmur, regular rhythm. ABDOMEN: No hepatosplenomegaly, normal bowel sounds, no guarding or rigidity. SPINE: No scoliosis or deformity SKIN: No rashes CENTRAL NERVOUS SYSTEM: No focal deficits, tone is normal in all 4 extremities. EXTREMITIES: There is no peripheral edema. No clubbing, no cyanosis. Peripheral pulses are intact. Results - Laboratory Findings CBC and BMP: 04/23/21 06:40 04/23/21 06:40 PT/INR, D-dimer PT 10.6 sec (9.0-12.0) 04/22/21 19:11 INR 1.0 (<1.2) 04/22/21 19:11 Abnormal lab findings: Abnormal Labs 04/21/21 04/21/21 04/21/21 15:28 15:28 22:00 RBC 4.25 L Lymphocytes # 0.7 L APTT Sodium 135 L Chloride 96 L BUN Creatinine Glucose 148 H POC Glucose (mg/dL) Coronavirus (PCR) Detected A 04/22/21 04/22/21 04/22/21 07:09 12:19 13:52 RBC Lymphocytes # APTT Sodium Chloride BUN Creatinine Glucose POC Glucose (mg/dL) 127 H 148 H 183 H Coronavirus (PCR) 04/22/21 04/22/21 04/22/21 17:11 19:11 19:11 RBC 4.20 L Lymphocytes # APTT 30.5 H Sodium Chloride BUN Creatinine Glucose POC Glucose (mg/dL) 169 H Coronavirus (PCR) 04/22/21 04/22/21 04/22/21 19:11 19:59 20:34 RBC Lymphocytes # APTT Sodium 102 L* 134 L Chloride 93 L BUN 23 H Creatinine Glucose 135 H POC Glucose (mg/dL) 120 H Coronavirus (PCR) 04/23/21 04/23/21 04/23/21 06:40 06:40 06:54 RBC 4.26 L Lymphocytes # APTT Sodium 133 L Chloride BUN 28 H Creatinine 1.45 H Glucose 154 H POC Glucose (mg/dL) 206 H Coronavirus (PCR) 04/23/21 11:48 RBC Lymphocytes # APTT Sodium Chloride BUN Creatinine Glucose POC Glucose (mg/dL) 236 H Coronavirus (PCR) Assessment and Plan Assessment: 1 Acute episodes of dizziness and falls. Admitted on 04/21/2021 for the same 2 Suspected stroke with code stroke called yesterday 2021. CT scan of the brain and CT angiogram ruled out any significant abnormalities. He was transferred to the ICU for possible TPN infusion. TPA was not given. 3 History of chronic vertigo and previous brainstem surgery for decompression. He was scheduled to have this done again at [facility] last week but was not completed due to hospitalization 4 History of atrial fibrillation 5 Diabetes mellitus type 2 6 Hypertension 7 Hyperlipidemia 8 History of breast cancer with bilateral mastectomies and lymph node removal 9 Frequent falls secondary to vertigo fractures and orthopedic surgeries 10 Chronic headaches Plan: The patient was seen and evaluated No evidence of seizure activity while in the ICU Alert and oriented in no acute distress On room air and stable Transferred to the selective care unit today Neurology remains on the case We'll continue to follow and make further recommendations based on his clinical status I, the cosigning physician, performed a history & physical examination of the patient. Lungs sounds are clear. Maintaining good O2 saturations in the 90s on room air. I discussed the assessment and plan of care with my nurse practitioner, Nena Wan. I attest to the above consultation as dictated by her. Time with Patient: Greater than 30
[2021-04-23] MEDS: INSULIN ASPART (NovoLOG) 100 UNIT/ML VIAL SQ SCH ×3 (13:17→21:30)
[2021-04-23] MEDS: MORPHINE SULFATE 4 MG/ML SYRINGE IVP PRN ×2 (13:17→17:34)
[2021-04-23] MEDS: THIAMINE 100 MG TAB PO SCH ×2 (13:17→13:19)
[2021-04-23] MEDS: FOLIC ACID 1 MG TAB PO SCH (13:17)
--- NOTE | 2021-04-23 16:39 | P.PN ---
Subjective Progress Note Date: 04/23/21 This is a Tele-neurology followup performed today on 04/23/2021. Patient was seen for a follow-up. Per nursing report. Status remains stable overnight. However when she woke him up from a deep sleep, he did exhibit some changes, reportedly he drifted off balance and questions and had bilateral arm drift with eyes closed, these resolved within minutes. Patient came back to baseline. At present patient is going for MRI. He denies any headache. Offers no complaints except headache, right hip pain. Objective - Vital Signs Vital signs: Vital Signs Temp 98.4 F 04/23/21 08:00 Pulse 84 04/23/21 11:00 Resp 17 04/23/21 11:00 BP 123/72 04/23/21 11:00 Pulse Ox 94 L 04/23/21 11:00 Intake & Output 04/22/21 04/23/21 04/23/21 18:59 06:59 18:59 Intake Total 236 400 420 Output Total 350 0 Balance 236 50 420 Weight 129.2 kg Intake: IV 200 170 0.9 200 20 Sodium Chloride 0.9% 1, 150 000 ml @ 75 mls/hr IV . [id number] [facility] Rx#:[id number] Oral 236 200 250 Output: Urine 350 0 Other: Voiding Method Urinal Urinal # Voids 3 1 # Bowel Movements 0 - Exam Patient's speech and language functions are normal. Pupils are round and reacting, visual bishop are full, face is symmetric and tongue protrudes the midline. On muscle strength testing there is no drift and the strength is normal in arms. Sensations equal. - Labs CBC & Chem 7: 04/23/21 06:40 04/23/21 06:40 Labs: Abnormal Lab Results - Last 24 Hours (Table) 04/22/21 04/22/21 04/22/21 Range/Units 12:19 13:52 17:11 RBC (4.30-5.90) m/uL APTT (22.0-30.0) sec Sodium (137-145) mmol/L Chloride (98-107) mmol/L BUN (9-20) mg/dL Creatinine (0.66-1.25) mg/dL Glucose (74-99) mg/dL POC Glucose (mg/dL) 148 H 183 H 169 H (75-99) mg/dL 04/22/21 04/22/21 04/22/21 Range/Units 19:11 19:11 19:11 RBC 4.20 L (4.30-5.90) m/uL APTT 30.5 H (22.0-30.0) sec Sodium 102 L* (137-145) mmol/L Chloride 93 L (98-107) mmol/L BUN 23 H (9-20) mg/dL Creatinine (0.66-1.25) mg/dL Glucose 135 H (74-99) mg/dL POC Glucose (mg/dL) (75-99) mg/dL 04/22/21 04/22/21 04/23/21 Range/Units 19:59 20:34 06:40 RBC 4.26 L (4.30-5.90) m/uL APTT (22.0-30.0) sec Sodium 134 L (137-145) mmol/L Chloride (98-107) mmol/L BUN (9-20) mg/dL Creatinine (0.66-1.25) mg/dL Glucose (74-99) mg/dL POC Glucose (mg/dL) 120 H (75-99) mg/dL 04/23/21 04/23/21 Range/Units 06:40 06:54 RBC (4.30-5.90) m/uL APTT (22.0-30.0) sec Sodium 133 L (137-145) mmol/L Chloride (98-107) mmol/L BUN 28 H (9-20) mg/dL Creatinine 1.45 H (0.66-1.25) mg/dL Glucose 154 H (74-99) mg/dL POC Glucose (mg/dL) 206 H (75-99) mg/dL Assessment and Plan Assessment: * Status post stroke code. Patient did not receive TPA. Patient's NIH stroke scale 0. * History of recurrent falls, probably multifactorial due to reasons as mentioned below. 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 * History of BPPV, status post microvascular decompression right occipital region * Chronic headaches * Acute Covid-19 infection * Right hip pain * Diabetes * Paroxysmal atrial fibrillation, currently on aspirin, not on anticoagulation. * Hypertension * Obesity Plan: * Patient going for MRI of the brain. * CTA of head and neck showed no large vessel occlusion, or stenosis or aneurysm. * Continue aspirin. Patient has history of atrial fibrillation, currently not on anticoagulation. Would defer to IM. * B12 887, folate >20. Continue vitamin B12 orally daily. * Hemoglobin A1c 6.4 * Lipid panel with cholesterol 205, LDL 117, HDL 39 and triglycerides 268. Continue Lipitor 40 mg. * Patient's last 2-D echo from 01/11/2021, revealed normal left ventricular size. Mild concentric LVH. EF is between 45-50%. Trace MR. * PT OT evaluate gait. * Telemetric monitoring.
[2021-04-23 16:46] LABS: Glucose,Whole Blood 141 mg/dL (75-99)
[2021-04-23 20:24] LABS: Glucose,Whole Blood 147 mg/dL (75-99)
--- NOTE | 2021-04-23 20:32 | P.PN ---
Subjective This is a pleasant 70 years old male with past medical history of Atrial Fibrillation, Diabetes Mellitus, GERD, Hyperlipidemia, Hypertension, Memory Impairment, Osteoarthritis , frequent falls, vertigo, chronic headache, chronic back pain status post surgery Patient was recently discharged from this facility 04/02-04/08 for his fungal esophagitis with duodenal ulcer. At that time patient refused to go to subacute rehab despite recommendation. Biopsy from last time showing mild chronic gastritis, H. pylori negative. Chronic esophagitis with reflux esophagitis Now presents because of fall. Patient states that yesterday he was sleeping he woke up in the morning to go to the restroom but he fell on the floor and he could not get up for 6-7 hours total [facility] found him and brought him to the hospital. Patient has been complaining from dizziness for a few days, he wasn't sure but he thinks the room is spinning right now. Also yesterday when he fell he has some blurred vision but this resolved now. No slurred speech. No difficulty moving upper or lower extremities. Also has been complaining of from low back pain which is an you for him for about 5-6 days. Pain is in the lower back and make him distressed. However pain is not radiating. Straight leg test of the right side is positive Patient also has been complaining of from headache about 8/10 in severity, however he states that is been chronic and start getting worse when they stopped his furosemide because of his esophagitis/duodenal ulcer History is pain and abdominal pain and tenderness he had last time feels better today He had some urinary retention last night and they had to straight cath him. 04/23/2021 Patient seen and evaluated today in the ICU. He was transferred to the ICU last night for concern of "stroke which was called. However once he came to the ICU he was not given the TPA recommended by on-call stroke physician/neurologist because patient returned to his basic mental status. As per bedside nurse looks like what happened once he wakes up from sleep he got confused for a few minutes before he go back to his normal baseline and it happened again here in the ICU. When I see him actually he was fully awake and oriented to time, place and person he has insight into his illness. He denies any new weakness or numbness in his upper or lower extremities. He has generalized weakness including more weakness in his legs but this is chronic and at baseline. However he still complaining of from lower back pain with positive straight leg test. However his pain is not radiating into his leg. He is hemodynamically stable. His creatinine went up a little bit to 1.4 so we held his lisinopril 20 mg twice a day and start him on normal saline 75 plica per hour and small dose of metoprolol 12.5 mg twice a day. Patient states that he was not sure if he has history of A. fib, 1 long time ago he was informed by his PCP Dr. Rodriguez he has atrial fibrillation but it wasn't confirmed and he does not see camp housekeeper. Sometimes the visiting nurse from home health care as can be have atrial fibrillation when they checked his pulse and blood pressure and he has revealed normal as per patient. Also he said he was not on blood thinners except for a long time ago when he had surgery of the scalp, and claims he was on blood thinner for clot in his incisional site (questionable) However he confirms he was not on blood thinner for cardiac arrhythmia or lung or leg clotting disease. Neurology already on the case and he recommended MRI of the brain. Also cardiology team were consulted for dizziness. ICU team evaluated the patient while he is in the intensive care unit Objective - Vital Signs Vital signs: Vital Signs Temp 98.4 F 04/23/21 08:00 Pulse 80 04/23/21 16:00 Resp 18 04/23/21 14:00 BP 85/54 04/23/21 16:00 Pulse Ox 94 L 04/23/21 11:00 Intake & Output 04/23/21 04/23/21 04/24/21 06:59 18:59 06:59 Intake Total 400 495 Output Total 350 0 Balance 50 495 Weight 129.2 kg Intake: IV 200 170 0.9 200 20 Sodium Chloride 0.9% 1, 150 000 ml @ 75 mls/hr IV . [id number] [facility] Rx#:[id number] Intake, IV Titration 75 Amount Sodium Chloride 0.9% 1, 75 000 ml @ 75 mls/hr IV . [id number] [facility] Rx#:[id number] Oral 200 250 Output: Urine 350 0 Other: Voiding Method Urinal Urinal # Voids 1 - Exam GENERAL: The patient is alert and oriented x3, not in any acute distress. Well developed, well nourished. HEENT: Pupils are round and equally reacting to light. EOMI. No scleral icterus. No conjunctival pallor. Normocephalic, atraumatic. No pharyngeal erythema. No thyromegaly. CARDIOVASCULAR: S1 and S2 present. No murmurs, rubs, or gallops. PULMONARY: Chest is clear to auscultation, no wheezing or crackles. ABDOMEN: Soft, nontender, nondistended, normoactive bowel sounds. No palpable organomegaly. -MUSCULOSKELETAL: No joint swelling or deformity. positive right sided straight leg test EXTREMITIES: No cyanosis, clubbing, or pedal edema. NEUROLOGICAL: Gross neurological examination did not reveal any focal deficits. Cranial nerves are grossly intact. Sensation is intact. Strength is 5/5 in all extremities. Meningeal signs are absent SKIN: No rashes. No petechiae - Labs CBC & Chem 7: 04/23/21 06:40 04/23/21 06:40 Labs: Abnormal Lab Results - Last 24 Hours (Table) 04/22/21 04/23/21 04/23/21 Range/Units 20:34 06:40 06:40 RBC 4.26 L (4.30-5.90) m/uL Sodium 134 L 133 L (137-145) mmol/L BUN 28 H (9-20) mg/dL Creatinine 1.45 H (0.66-1.25) mg/dL Glucose 154 H (74-99) mg/dL POC Glucose (mg/dL) (75-99) mg/dL Hemoglobin A1c (0.0-6.0) % 04/23/21 04/23/21 04/23/21 Range/Units 06:40 06:54 11:48 RBC (4.30-5.90) m/uL Sodium (137-145) mmol/L BUN (9-20) mg/dL Creatinine (0.66-1.25) mg/dL Glucose (74-99) mg/dL POC Glucose (mg/dL) 206 H 236 H (75-99) mg/dL Hemoglobin A1c 7.4 H (0.0-6.0) % 04/23/21 Range/Units 16:44 RBC (4.30-5.90) m/uL Sodium (137-145) mmol/L BUN (9-20) mg/dL Creatinine (0.66-1.25) mg/dL Glucose (74-99) mg/dL POC Glucose (mg/dL) 141 H (75-99) mg/dL Hemoglobin A1c (0.0-6.0) % Assessment and Plan Assessment: Falls without losing consciousness Low back pain with positive right sided straight leg test Dizziness with possible vertigo, chronic as per neurology Good stroke called on 04/22 for transient confusion, patient currently back to his baseline Recent diagnosis of fungal esophagitis, also reflux esophagitis. Currently his epigastric pain is improving Gastritis with superficial ulcers with duodenal ulcer Hypertension Chronic kidney disease, stage II paroxysmal atrial fibrillation, not on anticoagulation Diabetes mellitus GERD Hypertension Hyperlipidemia History of memory impairment History of osteoarthritis and chronic low back pain status postsurgery History of frequent falls History of vertigo History of chronic headache Obesity with BMI of 40.9 Plan: This is a pleasant 70 years old male who presents because of dizziness and a fall, also he has acute low back pain with positive straight leg test Continue with baby aspirin 81 mg neurology team on the case and the recommend MRI of the brain Continue with pain management with morphine and Ultram for back pain and headache upon patient request. Risks and benefits are explained Consults cardiology team Consults pulmonary/critical care team keep checking bladder scan we will check vitamin B12 and folate Labs and medication were reviewed.. Continue same treatment. Continue with symptomatic treatment. Resume home medication. Monitor lytes and vitals. DVT and GI prophylaxis. Further recommendations depends on the clinical course of the patient DVT prophylaxis: Subcutaneous heparin GI Prophylaxis: Ppi and Carafate PT/OT: Pending Prognosis is guarded Discussed with the bedside nurse
[2021-04-23] MEDS ORDERED: SODIUM CHLORIDE 0.9% 500 ML 500 ML IV ONE (21:01)
[2021-04-23] MEDS: MORPHINE SULFATE 2 MG/ML SYRINGE IVP PRN (22:15)
[2021-04-23] MEDS: ATORVASTATIN 40 MG TAB PO SCH (22:16)
[2021-04-24 06:02] LABS: Glucose,Whole Blood 126 mg/dL (75-99)
[2021-04-24] MEDS: SUCRALFATE 1 GM TAB PO SCH ×3 (06:28→17:00)
[2021-04-24] MEDS: PANTOPRAZOLE 40 MG TABLET PO SCH ×2 (06:28→17:01)
[2021-04-24] MEDS: MORPHINE SULFATE 2 MG/ML SYRINGE IVP PRN ×3 (06:31→18:42)
[2021-04-24] MEDS: guaiFENesin-DM 100-10MG/5ML 10 ML CUP PO SCH ×5 (06:31→23:32)
[2021-04-24 08:33] LABS: Calcium 8.8 mg/dL (8.4-10.2); Potassium 4.3 mmol/L (3.5-5.1)
[2021-04-24 08:48] LABS: Basophils % (A) 0 %; Eosinophils # (A) 0.4 k/uL (0-0.7); Eosinophils % (A) 8 %; HCT 39.4 % (39.0-53.0); HGB 12.7 gm/dL (13.0-17.5); Lymphocytes # (A) 1.7 k/uL (1.0-4.8); Lymphocytes % (A) 33 %; MCH 30.8 pg (25.0-35.0); MCHC 32.4 g/dL (31.0-37.0); MCV 95.1 fL (80.0-100.0); Mean Platelet Volume 7.5; Monocytes # (A) 0.4 k/uL (0-1.0); Monocytes % (A) 8 %; Neutrophils # (A) 2.5 k/uL (1.3-7.7); Neutrophils % (A) 47 %; Platelet Count 194 k/uL (150-450); RBC 4.14 m/uL (4.30-5.90); RDW 13.6 % (11.5-15.5); WBC 5.2 k/uL (3.8-10.6)
[2021-04-24] MEDS: INSULIN ASPART (NovoLOG) 100 UNIT/ML VIAL SQ SCH ×4 (09:44→21:25)
[2021-04-24] MEDS: GABAPENTIN 300 MG CAP PO SCH (09:51)
[2021-04-24] MEDS: MAGNESIUM OXIDE 400 MG TAB PO SCH ×3 (09:51→21:25)
[2021-04-24] MEDS: DULoxetine HCL 60 MG CAPSULE.DR PO SCH ×2 (09:51→21:25)
[2021-04-24] MEDS: ASPIRIN 81 MG PO SCH (09:51)
[2021-04-24] MEDS: CYANOCOBALAMIN 500 MCG TAB PO SCH (09:51)
[2021-04-24] MEDS: FOLIC ACID 1 MG TAB PO SCH (09:51)
[2021-04-24] MEDS: THIAMINE 100 MG TAB PO SCH (09:52)
[2021-04-24] MEDS: amLODIPine 5 MG TAB PO SCH (09:52)
--- NOTE | 2021-04-24 09:57 | P.CRDCN ---
History of Present Illness Consult date: 04/24/21 History of present illness: History of Presenting Illness: Patient is a very pleasant 70-year-old male with a past medical history of diabetes, hypertension, hyperlipidemia, chronic persistent vertigo and paroxysmal atrial fibrillation not on anticoagulation. . He presented to the emergency department on 04/21/21 with a chief complaint of weakness resulting in a fall accompanied by chest pain/pressure and pain in right hip. He has a history of severe vertigo resulting in previous brainstem surgery for microvascular decompression of right occipital region currently under care of [facility] with reported plans of further surgical procedures. He is currently under treatment by internal medicine and neurology team for treatment of persistent dizziness with history of chronic vertigo. We have been consulted to evaluate patient secondary to history of paroxysmal atrial fibrillation and persistent dizziness. Patient seen and fully evaluated at the bedside this morning. He reports continued dizziness/lightheadedness with movement but currently denies any dizziness at at rest and denies any further complaints including headache, changes in vision or hearing, chest pain or palpitations, shortness of breath, nausea, diaphoresis, or experiencing any numbness/tingling/weakness in his extremities. Review of systems: Pertinent positives and negatives as discussed in HPI, a complete review of systems was performed and all other systems are negative. Physical exam: Vital signs reviewed and stable. General: Nontoxic, no distress and appears stated age. Derm: Skin warm and dry, normal coloration for ethnicity. Head: Atraumatic, normocephalic and symmetric. Eyes: EOMs intact, no lid lag, and anicteric sclera Mouth: no lip lesions, mucus membranes moist Cardiovascular: regular rate and rhythm, distant heart sounds with normal S1S2, no murmur, positive posterior tibial pulses bilaterally, and cap refill < 2 seconds. Lungs: Respirations even, regular, and unlabored on room air. Lungs CTA bilaterally, no rhonchi, no rales, no wheezing, and no accessory muscle usage. Abdominal: soft, nontender to palpation, no guarding, no appreciable organomegaly Ext: ROM intact. No gross muscle atrophy, no edema, no contractures Neuro: Speech clear, face symmetrical and CN II-XII grossly intact with no noted focal neuro deficits Psych: Alert and oriented to person, place, time, and situation. Appropriate and pleasant affect. Assessment and Plan of Care: Weakness, recurrent falls, persistent dizziness/lightheadedness Atypical chest pain, resolved Covid 19 virus infection History of chronic vertigo with previous brainstem surgery for microvascular decompression of right occipital region currently under care of [facility] with reported plans of further surgical procedures. Paroxysmal atrial fibrillation not on anticoagulation Hypertension Hyperlipidemia EKG to be completed, troponin was negative at less than 0.012. Telemetry monitoring Echocardiogram Orthostatic vitals to be completed Continuation of cardiac medications including amlodipine, aspirin, atorvastatin, Plavix, and metoprolol We will continue to follow patient and further recommendations to be given pending results and patient's further clinical course With patient's significant medical history strongly recommend outpatient c ardiac stress testing once medically stable and treatment of Covid is completed. Thank you for allowing us to participate in the care of this pleasant patient. Do not hesitate to contact us with questions. Nurse practitioner note has been reviewed by physician. Signing provider agrees with the documented findings, assessment, and plan of care. Past Medical History Past Medical History: Atrial Fibrillation, Cancer, Diabetes Mellitus, G ERD/Reflux, Hyperlipidemia, Hypertension, Memory Impairment, Osteoarthritis (OA), Pneumonia Additional Past Medical History / Comment(s): FELL 07/09/19 FX LT RADIUS, FREQUENT FALLS-REASON UNKNOWN. 03-10-16 FELL/FX RT FIBULA, VERTIGO , chronic headaches, BREAST CANCER History of Any Multi-Drug Resistant Organisms: CRE, MRSA Date of last positivie culture/infection: MRSA-03/11 MDRO Source:: Source unknown-MRSA Past Surgical History: Back Surgery, Breast Surgery, Orthopedic Surgery Additional Past Surgical History / Comment(s): Bilateral mastectomy with right sided lymp node removal due to cancer, R knee cap removed, Back surgery for herniated disc., Brain stem surgery for decompression-for dizziness, right ankle ORIF, bilateral wrist fractures SX Past Anesthesia/Blood Transfusion Reactions: No Reported Reaction Past Psychological History: No Psychological Hx Reported Smoking Status: Former smoker Past Alcohol Use History: None Reported Additional Past Alcohol Use History / Comment(s): STARTED SMOKING AT AGE 18, SMOKE A PIPE GOES THRU A PACK OF PIPE TOBACCO/DAY quit smoking in 2005 Past Drug Use History: None Reported - Past Family History Father History Unknown: Yes Family Medical History: Congestive Heart Failure (CHF) Additional Family Medical History / Comment(s): at 68. Mother History Unknown: Yes Family Medical History: Hypertension Additional Family Medical History / Comment(s): Pulmonary hypertension. at 78. Medications and Allergies Home Medications Medication Instructions Recorded Confirmed Type metFORMIN HCL [Glucophage] 500 mg PO BID 12/17/18 04/21/21 History Metoprolol Tartrate [Lopressor] 50 mg PO TID 11/06/19 04/21/21 History Atorvastatin [Lipitor] 40 mg PO HS 06/18/20 04/21/21 History DULoxetine HCL [Cymbalta] 60 mg PO BID 06/18/20 04/21/21 History Baclofen [Lioresal] 20 mg PO BID PRN #6 tab 07/07/20 04/21/21 Rx lisinopriL [Prinivil] 20 mg PO BID 10/11/20 04/21/21 History Gabapentin [Neurontin] 300 mg PO BID #6 cap 10/22/20 04/21/21 Rx Folic Acid 1 mg PO DAILY@1200 #30 tab 12/23/20 04/21/21 Rx Magnesium Oxide [Mag-Ox] 400 mg PO TID #90 tab 12/23/20 04/21/21 Rx Thiamine [Vitamin B-1] 100 mg PO DAILY@1200 #30 tab 12/23/20 04/21/21 Rx Multivitamins, Thera [Multivitamin 1 tab PO DAILY@1200 01/09/21 04/21/21 History (formulary)] Triamcinolone 0.1% Ointment 1 applic TOPICAL BID 01/09/21 04/21/21 History [Kenalog 0.1% Ointment] Pyridoxine [Vitamin B-6] 50 mg PO DAILY #30 tab 01/12/21 04/21/21 Rx Cyanocobalamin [Vitamin B-12] 1,000 mcg PO DAILY #30 tab 03/03/21 04/21/21 Rx Aspirin 81 mg PO DAILY #30 tab 04/08/21 04/21/21 Rx Pantoprazole Sodium [Protonix] 40 mg PO BID #60 tab 04/08/21 04/21/21 Rx Sucralfate [Carafate] 1 gm PO AC-TID #120 tab 04/08/21 04/21/21 Rx amLODIPine [Norvasc] 5 mg PO DAILY #30 tab 04/08/21 04/21/21 Rx hydrALAZINE HCL [Apresoline] 25 mg PO BID PRN #60 tab 04/08/21 04/21/21 Rx traMADol HCl [Ultram] 50 mg PO QID PRN 3 Days #12 tab 04/08/21 04/21/21 Rx Calcium Carbonate [Tums] 500 mg PO TID 04/21/21 04/21/21 History Nystatin 100,000 Unit/ml Susp 500,000 unit PO QID PRN 04/21/21 04/21/21 History [Mycostatin Oral Susp] Allergies Allergy/AdvReac Type Severity Reaction Status Date / Time cephalexin monohydrate Allergy Anaphylaxis Verified 04/21/21 16:10 [From Keflex] Cephalosporins Allergy Anaphylaxis Verified 04/21/21 16:10 Penicillins Allergy Anaphylaxis Verified 04/21/21 16:10 Physical Exam Vitals: Vital Signs Temp Pulse Pulse Resp BP BP Pulse Ox 04/24/21 04:00 98.0 F 80 18 115/55 93 L 04/24/21 02:00 80 18 04/24/21 00:00 98.3 F 80 18 106/56 93 L 04/23/21 20:00 98.4 F 73 18 111/58 04/23/21 16:00 80 85/54 04/23/21 14:00 80 18 04/23/21 12:12 81 18 04/23/21 12:00 81 105/57 04/23/21 11:00 84 17 123/72 94 L 04/23/21 10:00 89 18 114/45 92 L Intake and Output 04/23/21 04/24/21 04/24/21 22:59 06:59 14:59 Intake Total 75 Output Total 1827 358 Balance 75 1827 -730 Intake: Intake, IV Titration 75 Amount Sodium Chloride 0.9% 1, 75 000 ml @ 75 mls/hr IV . [id number] [facility] Rx#:[id number] Output: Urine 4635 475 Other: Voiding Method Urinal Urinal Results 04/24/21 07:35 04/24/21 07:31 CBC 04/24/21 Range/Units 07:35 WBC 5.2 (3.8-10.6) k/uL RBC 4.14 L (4.30-5.90) m/uL Hgb 12.7 L (13.0-17.5) gm/dL Hct 39.4 (39.0-53.0) % Plt Count 194 (150-450) k/uL Comprehensive Metabolic Panel 04/24/21 Range/Units 07:31 Sodium 135 L (137-145) mmol/L Potassium 4.3 (3.5-5.1) mmol/L Chloride 101 (98-107) mmol/L Carbon Dioxide 27 (22-30) mmol/L BUN 26 H (9-20) mg/dL Creatinine 1.13 (0.66-1.25) mg/dL Glucose 126 H (74-99) mg/dL Calcium 8.8 (8.4-10.2) mg/dL Current Medications Generic Name Dose Route Start Last Admin Trade Name Freq PRN Reason Stop Dose Admin Amlodipine Besylate 5 mg 04/22/21 09:00 04/23/21 09:02 Amlodipine 5 Mg Tab PO 5 mg DAILY [facility] Administration Aspirin 81 mg 04/22/21 09:00 04/23/21 09:02 Aspirin 81 Mg PO 81 mg DAILY [facility] Administration Atorvastatin Calcium 40 mg 04/22/21 21:00 04/23/21 22:16 Atorvastatin 40 Mg Tab PO 40 mg HS [facility] Administration Baclofen 20 mg 04/21/21 21:46 04/22/21 10:27 Baclofen 10 Mg Tab PO 20 mg BID PRN Administration Muscle Spasm Cyanocobalamin 1,000 mcg 04/22/21 09:00 04/23/21 09:02 Cyanocobalamin 500 Mcg Tab PO 1,000 mcg DAILY [facility] Administration Duloxetine HCl 60 mg 04/22/21 09:00 04/23/21 22:16 Duloxetine Hcl 60 Mg Capsule.Dr PO 60 mg BID [facility] Administration Folic Acid 1 mg 04/22/21 12:00 04/23/21 13:17 Folic Acid 1 Mg Tab PO 1 mg DAILY@1200 [facility] Administration Gabapentin 300 mg 04/22/21 09:00 04/23/21 22:16 Gabapentin 300 Mg Cap PO 300 mg BID [facility] Administration Guaifenesin/Dextromethorphan 10 ml 04/23/21 09:00 04/24/21 09:43 Guaifenesin-Dm 100-10mg/5ml 10 Ml Cup PO Not Given Q6HR [facility] Hydralazine HCl 25 mg 04/23/21 08:44 Hydralazine Hcl 25 Mg Tab PO BID PRN Blood Pressure - High Sodium Chloride 1,000 mls @ 75 mls/hr 04/23/21 08:45 04/23/21 22:10 Saline 0.9% IV 75 mls/hr .[id number] [facility] Administration Insulin Aspart 0 unit 04/23/21 12:30 04/24/21 09:44 Insulin Aspart (Novolog) 100 Unit/Ml Vial SQ Not Given ACHS [facility] Protocol Magnesium Oxide 400 mg 04/21/21 22:00 04/23/21 22:15 Magnesium Oxide 400 Mg Tab PO 400 mg TID [facility] Administration Morphine Sulfate 4 mg 04/23/21 12:33 04/23/21 17:34 Morphine Sulfate 4 Mg/Ml Syringe IVP 4 mg Q4HR PRN Administration Pain Scale 6 to 10 Morphine Sulfate 2 mg 04/23/21 20:25 04/24/21 06:31 Morphine Sulfate 2 Mg/Ml Syringe IVP 2 mg Q6HR PRN Administration Pain Scale 3 To 5 Naloxone HCl 0.2 mg 04/21/21 22:25 Naloxone 0.4 Mg/Ml 1 Ml Vial IV Q2M PRN Opioid Reversal Nystatin 500,000 unit 04/21/21 21:46 Nystatin 100,000 Unit/Ml Susp 500,000 Unit/5 Ml Cup PO QID PRN MOUTH INFECTION Pantoprazole Sodium 40 mg 04/22/21 07:30 04/24/21 06:28 Pantoprazole 40 Mg Tablet PO 40 mg AC-BID [facility] Administration Sucralfate 1 gm 04/22/21 07:30 04/24/21 06:28 Sucralfate 1 Gm Tab PO 1 gm AC-TID [facility] Administration Thiamine HCl 100 mg 04/22/21 12:00 04/23/21 13:19 Thiamine 100 Mg Tab PO 100 mg DAILY@1200 [facility] Administration Tramadol HCl 50 mg 04/21/21 21:46 04/22/21 15:21 Tramadol 50 Mg Tab PO 50 mg QID PRN Administration Moderate Pain Intake and Output 04/23/21 04/24/21 04/24/21 22:59 06:59 14:59 Intake Total 75 Output Total 1829 475 Balance 27 -7367 -633 Intake: Intake, IV Titration 75 Amount Sodium Chloride 0.9% 1, 75 000 ml @ 75 mls/hr IV . [id number] [facility] Rx#:[id number] Output: Urine 1824 475 Other: Voiding Method Urinal Urinal 04/24/21 07:35 04/24/21 07:31
[2021-04-24 11:56] LABS: Glucose,Whole Blood 160 mg/dL (75-99)
--- NOTE | 2021-04-24 12:17 | MR ---
EXAMINATION TYPE: MR brain wo con DATE OF EXAM: 04/24/2021 COMPARISON: CT head 22 April 2021 HISTORY: Possible CVA Standard multiplanar, multisequence MRI departmental protocol Multiplanar, multisequence images of the brain were acquired without contrast. Diffusion weighted jamie ging was performed. FINDINGS: Mild burden of T2/FLAIR signal hyperintensity in the periventricular and subcortical white matter that is nonspecific but likely on the basis of chronic ischemic microangiopathy. There is mode rate cerebral volume retraction with concordant prominence of the ventricular system and sulci. No di ffusion restriction or evidence of acute infarct. No acute intracranial hemorrhage. Subarachnoid basa l cisterns are maintained. 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 Flow voids of the arteries of the skull base are maintained. The dural venous sinuses patent to the l imits of this examination. Paranasal sinuses and temporal bone structures are well-aerated. Globes and orbits are unremarkable. IMPRESSION: Senescent changes without evidence of an acute infarct.
--- NOTE | 2021-04-24 12:55 | P.PN ---
Subjective This is a pleasant 70 years old male with past medical history of Atrial Fibrillation, Diabetes Mellitus, GERD, Hyperlipidemia, Hypertension, Memory Impairment, Osteoarthritis , frequent falls, vertigo, chronic headache, chronic back pain status post surgery Patient was recently discharged from this facility 04/02-04/08 for his fungal esophagitis with duodenal ulcer. At that time patient refused to go to subacute rehab despite recommendation. Biopsy from last time showing mild chronic gastritis, H. pylori negative. Chronic esophagitis with reflux esophagitis Now presents because of fall. Patient states that yesterday he was sleeping he woke up in the morning to go to the restroom but he fell on the floor and he could not get up for 6-7 hours total [facility] found him and brought him to the hospital. Patient has been complaining from dizziness for a few days, he wasn't sure but he thinks the room is spinning right now. Also yesterday when he fell he has some blurred vision but this resolved now. No slurred speech. No difficulty moving upper or lower extremities. Also has been complaining of from low back pain which is an you for him for about 5-6 days. Pain is in the lower back and make him distressed. However pain is not radiating. Straight leg test of the right side is positive Patient also has been complaining of from headache about 8/10 in severity, however he states that is been chronic and start getting worse when they stopped his furosemide because of his esophagitis/duodenal ulcer History is pain and abdominal pain and tenderness he had last time feels better today He had some urinary retention last night and they had to straight cath him. 04/23/2021 Patient seen and evaluated today in the ICU. He was transferred to the ICU last night for concern of "stroke which was called. However once he came to the ICU he was not given the TPA recommended by on-call stroke physician/neurologist because patient returned to his basic mental status. As per bedside nurse looks like what happened once he wakes up from sleep he got confused for a few minutes before he go back to his normal baseline and it happened again here in the ICU. When I see him actually he was fully awake and oriented to time, place and person he has insight into his illness. He denies any new weakness or numbness in his upper or lower extremities. He has generalized weakness including more weakness in his legs but this is chronic and at baseline. However he still complaining of from lower back pain with positive straight leg test. However his pain is not radiating into his leg. He is hemodynamically stable. His creatinine went up a little bit to 1.4 so we held his lisinopril 20 mg twice a day and start him on normal saline 75 plica per hour and small dose of metoprolol 12.5 mg twice a day. Patient states that he was not sure if he has history of A. fib, 1 long time ago he was informed by his PCP Dr. Rodriguez he has atrial fibrillation but it wasn't confirmed and he does not see behavior analyst. Sometimes the visiting nurse from home health care as can be have atrial fibrillation when they checked his pulse and blood pressure and he has revealed normal as per patient. Also he said he was not on blood thinners except for a long time ago when he had surgery of the scalp, and claims he was on blood thinner for clot in his incisional site (questionable) However he confirms he was not on blood thinner for cardiac arrhythmia or lung or leg clotting disease. Neurology already on the case and he recommended MRI of the brain. Also cardiology team were consulted for dizziness. ICU team evaluated the patient while he is in the intensive care unit 04/24/2021 Patient is awake and alert sitting and chair and select unit, no weakness or numbness and MRI of the brain showing no infarct. However neurology on the case and Plavix added on the top of his baby aspirin 81 mg His abdominal and chest pain from degenerative ulcer and esophagitis during last admission is resolved now. Patient is kept on Protonix and Carafate. Patient is still complaining of from low back pain and non-radiating to the right leg, He does not have new weakness in his legs, he is legs are chronically weak. No sensory level deficits. He is kept on IV morphine, Ultram as needed and increase gabapentin to 400 mg twice a day. Risks and benefits of this medication explained. Acute kidney injury improved today. Objective - Vital Signs Vital signs: Vital Signs Temp 97.9 F 04/24/21 09:54 Pulse 91 04/24/21 09:54 Resp 18 04/24/21 09:54 BP 111/61 04/24/21 09:54 Pulse Ox 96 04/24/21 09:54 Intake & Output 04/23/21 04/24/21 04/24/21 18:59 06:59 18:59 Intake Total 495 Output Total 0 1825 475 Balance 495 -1825 -475 Intake: IV 170 0.9 20 Sodium Chloride 0.9% 1, 150 000 ml @ 75 mls/hr IV . [id number] [facility] Rx#:[id number] Intake, IV Titration 75 Amount Sodium Chloride 0.9% 1, 75 000 ml @ 75 mls/hr IV . [id number] [facility] Rx#:[id number] Oral 250 Output: Urine 0 1825 475 Other: Voiding Method Urinal Urinal Urinal - Exam GENERAL: The patient is alert and oriented x3, not in any acute distress. Well developed, well nourished. HEENT: Pupils are round and equally reacting to light. EOMI. No scleral icterus. No conjunctival pallor. Normocephalic, atraumatic. No pharyngeal erythema. No thyromegaly. CARDIOVASCULAR: S1 and S2 present. No murmurs, rubs, or gallops. PULMONARY: Chest is clear to auscultation, no wheezing or crackles. ABDOMEN: Soft, nontender, nondistended, normoactive bowel sounds. No palpable organomegaly. -MUSCULOSKELETAL: No joint swelling or deformity. positive right sided straight leg test EXTREMITIES: No cyanosis, clubbing, or pedal edema. NEUROLOGICAL: Gross neurological examination did not reveal any focal deficits. Cranial nerves are grossly intact. Sensation is intact. Strength is 5/5 in all extremities. Meningeal signs are absent SKIN: No rashes. No petechiae - Labs CBC & Chem 7: 04/24/21 07:35 04/24/21 07:31 Labs: Abnormal Lab Results - Last 24 Hours (Table) 04/23/21 04/23/21 04/23/21 Range/Units 06:40 11:48 16:44 RBC (4.30-5.90) m/uL Hgb (13.0-17.5) gm/dL Sodium (137-145) mmol/L BUN (9-20) mg/dL Glucose (74-99) mg/dL POC Glucose (mg/dL) 236 H 141 H (75-99) mg/dL Hemoglobin A1c 7.4 H (0.0-6.0) % 04/23/21 04/24/21 04/24/21 Range/Units 20:22 06:01 07:31 RBC (4.30-5.90) m/uL Hgb (13.0-17.5) gm/dL Sodium 135 L (137-145) mmol/L BUN 26 H (9-20) mg/dL Glucose 126 H (74-99) mg/dL POC Glucose (mg/dL) 147 H 126 H (75-99) mg/dL Hemoglobin A1c (0.0-6.0) % 04/24/21 Range/Units 07:35 RBC 4.14 L (4.30-5.90) m/uL Hgb 12.7 L (13.0-17.5) gm/dL Sodium (137-145) mmol/L BUN (9-20) mg/dL Glucose (74-99) mg/dL POC Glucose (mg/dL) (75-99) mg/dL Hemoglobin A1c (0.0-6.0) % Assessment and Plan Assessment: Falls without losing consciousness Low back pain with positive right sided straight leg test Dizziness with possible vertigo, chronic as per neurology Good stroke called on 04/22 for transient confusion, patient currently back to his baseline Recent diagnosis of fungal esophagitis, also reflux esophagitis. Currently his epigastric pain is improving Gastritis with superficial ulcers with duodenal ulcer Hypertension Chronic kidney disease, stage II paroxysmal atrial fibrillation, not on anticoagulation Diabetes mellitus GERD Hypertension Hyperlipidemia History of memory impairment History of osteoarthritis and chronic low back pain status postsurgery History of frequent falls History of vertigo History of chronic headache Obesity with BMI of 40.9 Plan: This is a pleasant 70 years old male who presents because of dizziness and a fall, also he has acute low back pain with positive straight leg test Continue with baby aspirin 81 mg and Plavix neurology team on the case Continue with pain management with morphine and Ultram for back pain and he adache upon patient request. Risks and benefits are explained Consults cardiology team Consults pulmonary/critical care team keep checking bladder scan we will check vitamin B12 and folate Labs and medication were reviewed.. Continue same treatment. Continue with symptomatic treatment. Resume home medication. Monitor lytes and vitals. DVT and GI prophylaxis. Further recommendations depends on the clinical course of the patient DVT prophylaxis: Subcutaneous heparin GI Prophylaxis: Ppi and Carafate PT/OT: Pending Prognosis is guarded
[2021-04-24 16:50] LABS: Glucose,Whole Blood 142 mg/dL (75-99)
[2021-04-24] MEDS: METOPROLOL TARTRATE 50 MG TAB PO SCH ×2 (17:01→21:25)
[2021-04-24] MEDS: CLOPIDOGREL 75 MG TAB PO SCH (17:01)
[2021-04-24 20:04] LABS: Glucose,Whole Blood 215 mg/dL (75-99)
[2021-04-24] MEDS: ATORVASTATIN 40 MG TAB PO SCH (21:25)
[2021-04-24] MEDS: GABAPENTIN 400 MG CAP PO SCH (21:25)
[2021-04-24] MEDS: SODIUM CHLORIDE 0.9% 1,000 ML IV SCH (21:26)
[2021-04-24] MEDS: MORPHINE SULFATE 4 MG/ML SYRINGE IVP PRN (21:43)
[2021-04-24] MEDS: BACLOFEN 10 MG TAB PO PRN (23:32)
[2021-04-24] MEDS: traMADol 50 MG TAB PO PRN (23:32)
--- NOTE | 2021-04-25 00:31 | P.PN ---
Subjective Progress Note Date: 04/24/21 This is a Tele-neurology followup performed today on 04/24/2021. Patient is laying comfortably in the bed. No further strokes or TIA. Patient offers no complaints. Objective - Vital Signs Vital signs: Vital Signs Temp 98.2 F 04/24/21 16:00 Pulse 88 04/24/21 16:00 Resp 16 04/24/21 16:00 BP 116/62 04/24/21 16:00 Pulse Ox 95 04/24/21 16:00 Intake & Output 04/24/21 04/24/21 04/25/21 06:59 18:59 06:59 Output Total 1825 850 Balance -1825 -850 Output: Urine 1825 850 Other: Voiding Method Urinal Urinal - Exam Patient's speech and language functions are normal. Pupils are round and reacting, visual bishop are full, face is symmetric and tongue protrudes the midline. On muscle strength testing there is no drift and the strength is normal in arms. Sensations equal. - Labs CBC & Chem 7: 04/24/21 07:35 04/24/21 07:31 Labs: Abnormal Lab Results - Last 24 Hours (Table) 04/24/21 04/24/21 04/24/21 Range/Units 06:01 07:31 07:35 RBC 4.14 L (4.30-5.90) m/uL Hgb 12.7 L (13.0-17.5) gm/dL Sodium 135 L (137-145) mmol/L BUN 26 H (9-20) mg/dL Glucose 126 H (74-99) mg/dL POC Glucose (mg/dL) 126 H (75-99) mg/dL 04/24/21 04/24/21 04/24/21 Range/Units 11:55 16:49 20:02 RBC (4.30-5.90) m/uL Hgb (13.0-17.5) gm/dL Sodium (137-145) mmol/L BUN (9-20) mg/dL Glucose (74-99) mg/dL POC Glucose (mg/dL) 160 H 142 H 215 H (75-99) mg/dL Assessment and Plan Assessment: * Status post stroke code. Patient did not receive TPA. Patient's NIH stroke scale 0. MRI of the brain negative for acute CVA. * History of recurrent falls, probably multifactorial due to reasons as mentioned below. 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 * History of BPPV, status post microvascular decompression right occipital reg ion * Chronic headaches * Acute Covid-19 infection * Right hip pain * Diabetes * Paroxysmal atrial fibrillation, currently on aspirin, not on anticoagulation. * Hypertension * Obesity Plan: * MRI of the brain was negative for any acute ischemic CVA. I personally reviewed MRI and agree with the findings. 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 * We will place patient on dual antiplatelet medication for 3 weeks and then stop aspirin and continue Plavix 75 mg daily. * CTA of head and neck showed no large vessel occlusion, or stenosis or aneurysm. * Continue aspirin. Patient has history of atrial fibrillation, currently not on anticoagulation. Would defer to IM. Cardiology consultation initiated by Dr. Pressley. * B12 887, folate >20. Continue vitamin B12 orally daily. * Hemoglobin A1c 6.4 * Lipid panel with cholesterol 205, LDL 117, HDL 39 and triglycerides 268. This was while on Lipitor 40 mg. we will increase Lipitor to 80 mg daily to target LDL <70. * Patient's last 2-D echo from 01/11/2021, revealed normal left ventricular size. Mild concentric LVH. EF is between 45-50%. Trace MR. * PT OT evaluate gait. * Telemetric monitoring. * Patient is neurologically cleared pending cardiology recommendation. * Dr. Kareem Linder will be available for any neurological concerns from in the morning.
[2021-04-25] MEDS: MORPHINE SULFATE 4 MG/ML SYRINGE IVP PRN ×5 (01:29→20:44)
[2021-04-25] MEDS: SODIUM CHLORIDE 0.9% 1,000 ML IV SCH (01:30)
[2021-04-25 02:02] VITALS: RESP 18
[2021-04-25 06:01] LABS: Glucose,Whole Blood 111 mg/dL (75-99)
[2021-04-25] MEDS: guaiFENesin-DM 100-10MG/5ML 10 ML CUP PO SCH ×4 (06:05→22:55)
[2021-04-25] MEDS: INSULIN ASPART (NovoLOG) 100 UNIT/ML VIAL SQ SCH ×4 (06:05→20:43)
[2021-04-25] MEDS: PANTOPRAZOLE 40 MG TABLET PO SCH ×2 (06:05→16:02)
[2021-04-25] MEDS: SUCRALFATE 1 GM TAB PO SCH ×3 (06:05→16:02)
[2021-04-25] MEDS: traMADol 50 MG TAB PO PRN ×3 (07:07→23:41)
[2021-04-25] MEDS: BACLOFEN 10 MG TAB PO PRN ×2 (07:08→20:43)
[2021-04-25 08:20] LABS: Calcium 9.2 mg/dL (8.4-10.2); Potassium 4.7 mmol/L (3.5-5.1)
[2021-04-25] MEDS: CLOPIDOGREL 75 MG TAB PO SCH (09:54)
[2021-04-25] MEDS: METOPROLOL TARTRATE 50 MG TAB PO SCH ×3 (09:54→20:42)
[2021-04-25] MEDS: CYANOCOBALAMIN 500 MCG TAB PO SCH (09:54)
[2021-04-25] MEDS: amLODIPine 5 MG TAB PO SCH (09:54)
[2021-04-25] MEDS: GABAPENTIN 400 MG CAP PO SCH ×2 (09:54→20:43)
[2021-04-25] MEDS: ASPIRIN 81 MG PO SCH (09:54)
[2021-04-25] MEDS: MAGNESIUM OXIDE 400 MG TAB PO SCH ×3 (09:54→20:43)
[2021-04-25] MEDS: DULoxetine HCL 60 MG CAPSULE.DR PO SCH ×2 (09:54→20:42)
--- NOTE | 2021-04-25 11:28 | ECHOF ---
Referral Reason:Evaluate structure and function MEASUREMENTS -------- HEIGHT: 185.4 cm WEIGHT: 128.8 kg BP: 129/70 IVSd: 1.6 cm (0.6 - 1.1) LVIDd: 4.9 cm (3.9 - 5.3) LVPWd: 1.5 cm (0.6 - 1.1) IVSs: 2.0 cm LVIDs: 3.7 cm LVPWs: 1.1 cm FINDINGS -------- Sinus rhythm. The left ventricular size is normal. There is moderate concentric left ventricular hypertrophy. O verall left ventricular systolic function is mildly impaired with, an EF between 45 - 50 %. There is a trivial pericardial effusion present. CONCLUSIONS -------- 1. The left ventricular size is normal. 2. There is moderate concentric left ventricular hypertrophy. 3. Overall left ventricular systolic function is mildly impaired with, an EF between 45 - 50 %. 4. There is a trivial pericardial effusion present. COMPLIANCE AUDITOR: Delfina Sweet [facility]
[2021-04-25 11:54] LABS: Glucose,Whole Blood 130 mg/dL (75-99)
--- NOTE | 2021-04-25 12:31 | P.PN ---
Subjective This is a pleasant 70 years old male with past medical history of Atrial Fibrillation, Diabetes Mellitus, GERD, Hyperlipidemia, Hypertension, Memory Impairment, Osteoarthritis , frequent falls, vertigo, chronic headache, chronic back pain status post surgery Patient was recently discharged from this facility 04/02-04/08 for his fungal esophagitis with duodenal ulcer. At that time patient refused to go to subacute rehab despite recommendation. Biopsy from last time showing mild chronic gastritis, H. pylori negative. Chronic esophagitis with reflux esophagitis Now presents because of fall. Patient states that yesterday he was sleeping he woke up in the morning to go to the restroom but he fell on the floor and he could not get up for 6-7 hours total [facility] him and brought him to the hospital. Patient has been complaining from dizziness for a few days, he wasn't sure but he thinks the room is spinning right now. Also yesterday when he fell he has some blurred vision but this resolved now. No slurred speech. No difficulty moving upper or lower extremities. Also has been complaining of from low back pain which is an you for him for about 5-6 days. Pain is in the lower back and make him distressed. However pain is not radiating. Straight leg test of the right side is positive Patient also has been complaining of from headache about 8/10 in severity, however he states that is been chronic and start getting worse when they stopped his furosemide because of his esophagitis/duodenal ulcer History is pain and abdominal pain and tenderness he had last time feels better today He had some urinary retention last night and they had to straight cath him. 04/23/2021 Patient seen and evaluated today in the ICU. He was transferred to the ICU last night for concern of "stroke which was called. However once he came to the ICU he was not given the TPA recommended by on-call stroke physician/neurologist because patient returned to his basic mental status. As per bedside nurse looks like what happened once he wakes up from sleep he got confused for a few minutes before he go back to his normal baseline and it happened again here in the ICU. When I see him actually he was fully awake and oriented to time, place and person he has insight into his illness. He denies any new weakness or numbness in his upper or lower extremities. He has generalized weakness including more weakness in his legs but this is chronic and at baseline. However he still complaining of from lower back pain with positive straight leg test. However his pain is not radiating into his leg. He is hemodynamically stable. His creatinine went up a little bit to 1.4 so we held his lisinopril 20 mg twice a day and start him on normal saline 75 plica per hour and small dose of metoprolol 12.5 mg twice a day. Patient states that he was not sure if he has history of A. fib, 1 long time ago he was informed by his PCP Dr. Rodriguez he has atrial fibrillation but it wasn't confirmed and he does not see manager ship. Sometimes the visiting nurse from home health care as can be have atrial fibrillation when they checked his pulse and blood pressure and he has revealed normal as per patient. Also he said he was not on blood thinners except for a long time ago when he had surgery of the scalp, and claims he was on blood thinner for clot in his incisional site (questionable) However he confirms he was not on blood thinner for cardiac arrhythmia or lung or leg clotting disease. Neurology already on the case and he recommended MRI of the brain. Also cardiology team were consulted for dizziness. ICU team evaluated the patient while he is in the intensive care unit 04/24/2021 Patient is awake and alert sitting and chair and select unit, no weakness or numbness and MRI of the brain showing no infarct. However neurology on the case and Plavix added on the top of his baby aspirin 81 mg His abdominal and chest pain from degenerative ulcer and esophagitis during last admission is resolved now. Patient is kept on Protonix and Carafate. Patient is still complaining of from low back pain and non-radiating to the right leg, He does not have new weakness in his legs, he is legs are chronically weak. No sensory level deficits. He is kept on IV morphine, Ultram as needed and increase gabapentin to 400 mg twice a day. Risks and benefits of this medication explained. Acute kidney injury improved today. 04/25/2021 Patient today looks stronger and more awake. He looks more comfortable. He still complains from this chronic headache and low back pain with positive right straight leg test and we are consulting orthopedic team which is still pending. Other than that he doing well. No dizziness. No seizure-like activity. No change in mental status. No new weakness or numbness. No role with his urine or bowel movements. They seemed to do well. Still feels generally weak. His abdominal and chest pain from last hour improved. He is hemodynamically stable His creatinine is still stable and therefore we going to resume his lisinopril 20 mg daily instead of twice a day for now. stop hydralazine and IV fluids Also he still has bouts of diabetes related to his culprit without pneumonia. He continued on Robitussin DM Possible discharge in 24-48 hours if he keeps improving and stable B12 and folate levels were acceptable and above normal. Objective - Vital Signs Vital signs: Vital Signs Temp 97.5 F L 04/25/21 08:00 Pulse 93 04/25/21 08:00 Resp 18 04/25/21 08:00 BP 162/90 04/25/21 08:00 Pulse Ox 96 04/25/21 08:00 Intake & Output 04/24/21 04/25/21 04/25/21 18:59 06:59 18:59 Intake Total 560 840 Output Total 850 1200 400 Balance -850 -640 440 Intake: Oral 560 840 Output: Urine 850 1200 400 Other: Voiding Method Urinal Urinal Urinal - Exam GENERAL: The patient is alert and oriented x3, not in any acute distress. Well developed, well nourished. HEENT: Pupils are round and equally reacting to light. EOMI. No scleral icterus. No conjunctival pallor. Normocephalic, atraumatic. No pharyngeal erythema. No thyromegaly. CARDIOVASCULAR: S1 and S2 present. No murmurs, rubs, or gallops. PULMONARY: Chest is clear to auscultation, no wheezing or crackles. ABDOMEN: Soft, nontender, nondistended, normoactive bowel sounds. No palpable organomegaly. -MUSCULOSKELETAL: No joint swelling or deformity. positive right sided straight leg test EXTREMITIES: No cyanosis, clubbing, or pedal edema. NEUROLOGICAL: Gross neurological examination did not reveal any focal deficits. Cranial nerves are grossly intact. Sensation is intact. Strength is 5/5 in all extremities. Meningeal signs are absent SKIN: No rashes. No petechiae - Labs CBC & Chem 7: 04/24/21 07:35 04/25/21 07:10 Labs: Abnormal Lab Results - Last 24 Hours (Table) 04/24/21 04/24/21 04/25/21 Range/Units 16:49 20:02 06:00 Sodium (137-145) mmol/L BUN (9-20) mg/dL Glucose (74-99) mg/dL POC Glucose (mg/dL) 142 H 215 H 111 H (75-99) mg/dL 04/25/21 04/25/21 Range/Units 07:10 11:48 Sodium 136 L (137-145) mmol/L BUN 22 H (9-20) mg/dL Glucose 117 H (74-99) mg/dL POC Glucose (mg/dL) 130 H (75-99) mg/dL Assessment and Plan Assessment: Falls without losing consciousness Low back pain with positive right sided straight leg test Dizziness with possible vertigo, chronic as per neurology Good stroke called on 04/22 for transient confusion, patient currently back to his baseline Recent diagnosis of fungal esophagitis, also reflux esophagitis. Currently his epigastric pain is improving Gastritis with superficial ulcers with duodenal ulcer Hypertension Chronic kidney disease, stage II paroxysmal atrial fibrillation, not on anticoagulation Diabetes mellitus GERD Hypertension Hyperlipidemia History of memory impairment History of osteoarthritis and chronic low back pain status postsurgery History of frequent falls History of vertigo History of chronic headache Obesity with BMI of 40.9 Plan: This is a pleasant 70 years old male who presents because of dizziness and a fall, also he has acute low back pain with positive straight leg test Continue with baby aspirin 81 mg and Plavix neurology team on the case Continue with pain management with morphine and Ultram for back pain and headache upon patient request. Risks and benefits are explained Consults cardiology team Consults pulmonary/critical care team Labs and medication were reviewed.. Continue same treatment. Continue with symptomatic treatment. Resume home medication. Monitor lytes and vitals. DVT and GI prophylaxis. Further recommendations depends on the clinical course of the patient DVT prophylaxis: Subcutaneous heparin GI Prophylaxis: Ppi and Carafate PT/OT: Subacute rehab
[2021-04-25] MEDS: FOLIC ACID 1 MG TAB PO SCH (12:34)
[2021-04-25] MEDS: lisinopriL 20 MG TAB PO SCH (12:34)
[2021-04-25] MEDS: THIAMINE 100 MG TAB PO SCH (12:34)
--- NOTE | 2021-04-25 14:56 | P.PN ---
Subjective Progress Note Date: 04/25/21 CHIEF COMPLAINT: chest pain Patient is a very pleasant 70-year-old male with a past medical history of diabetes, hypertension, hyperlipidemia, chronic persistent vertigo and paroxysmal atrial fibrillation not on anticoagulation. . He presented to the emergency department on 04/21/21 with a chief complaint of weakness resulting in a fall accompanied by chest pain/pressure and pain in right hip. He has a history of severe vertigo resulting in previous brainstem surgery for microvascular decompression of right occipital region currently under care of [facility] with reported plans of further surgical procedures. He is currently under treatment by internal medicine and neurology team for treatment of persistent dizziness with history of chronic vertigo. We have been consulted to evaluate patient secondary to history of paroxysmal atrial fibrillation and persistent dizziness. Patient seen and fully evaluated at the bedside this morning. He reports continued dizziness/lightheadedness with movement but currently denies any dizziness at at rest and denies any further complaints including headache, changes in vision or hearing, chest pain or palpitations, shortness of breath, nausea, diaphoresis, or experiencing any numbness/tingling/weakness in his extremities. 04/25/2021 Patient examined at the bedside. Patient denies chest pain or pressure. He reports SOB. He also reports a cough. Vital signs are stable. Telemetry reveals sinus mechanism. Echocardiogram completed revealed ejection fraction 45-50%. PHYSICAL EXAM: Thorough physical exam not completed secondary to limited evaluation/examination due to Covid19 ASSESSMENT: Weakness, recurrent falls, persistent dizziness/lightheadedness Atypical chest pain, resolved Covid 19 virus infection History of chronic vertigo with previous brainstem surgery for microvascular decompression of right occipital region currently under care of [facility] with reported plans of further surgical procedures. Paroxysmal atrial fibrillation not on anticoagulation Hypertension Hyperlipidemia PLAN: Continue current cardiac medications No further inpatient recommendations from a cardiac standpoint We will sign off. Please reconsult if needed. Nurse practitioner note has been reviewed by physician. Signing provider agrees with the documented findings, assessment, and plan of care. Objective - Vital Signs Vital signs: Vital Signs Temp 97.9 F 04/25/21 12:00 Pulse 68 04/25/21 14:00 Resp 18 04/25/21 14:00 BP 131/71 04/25/21 12:00 Pulse Ox 96 04/25/21 12:00 Intake & Output 04/24/21 04/25/21 04/25/21 18:59 06:59 18:59 Intake Total 560 1302 Output Total 850 1200 925 Balance -850 -796 604 Intake: Oral 560 1302 Output: Urine 850 1200 925 Other: Voiding Method Urinal Urinal Urinal # Voids 1 - Labs CBC & Chem 7: 04/24/21 07:35 04/25/21 07:10 Labs: Abnormal Lab Results - Last 24 Hours (Table) 04/24/21 04/24/21 04/25/21 Range/Units 16:49 20:02 06:00 Sodium (137-145) mmol/L BUN (9-20) mg/dL Glucose (74-99) mg/dL POC Glucose (mg/dL) 142 H 215 H 111 H (75-99) mg/dL 04/25/21 04/25/21 Range/Units 07:10 11:48 Sodium 136 L (137-145) mmol/L BUN 22 H (9-20) mg/dL Glucose 117 H (74-99) mg/dL POC Glucose (mg/dL) 130 H (75-99) mg/dL
[2021-04-25 16:32] LABS: Glucose,Whole Blood 130 mg/dL (75-99)
--- NOTE | 2021-04-25 18:58 | XR ---
EXAMINATION TYPE: XR lumbar spine with bend/flex DATE OF EXAM: 04/25/2021 COMPARISON: NONE HISTORY: Back pain TECHNIQUE: 5 views FINDINGS: Lumbar vertebrae are normal alignment. Disc spaces are fairly normal. There is anterior tad dging osteophyte formation in the mid and upper lumbar spine. There is no compression fracture. Sacro iliac joints are intact. IMPRESSION: Hypertrophic degenerative disc changes. No fracture.
[2021-04-25 20:10] LABS: Glucose,Whole Blood 167 mg/dL (75-99)
--- NOTE | 2021-04-25 20:41 | P.CNOR ---
History of Present Illness - [facility] Consult date: 04/25/21 Requesting physician: Isidro E Wendie Consult reason: other (low back pain with positive straight leg test on the lef t) History of present illness: . Patient is a 70-year-old male with a history of vertigo who was supposed to have surgery at [facility] a week ago, however, patient was hospitalized at the time. Patient came in the emergency department via ambulance status post fall several days ago. Patient says he has had pain in his right hip and right lower back since the fall. Patient does have a history of atrial fibrillation, diabetes, GERD, high blood pressure, osteoarthritis, frequent falls, vertigo. Orthopedics has been consulted for low back pain with positive straight leg raise test. Patient says he has been having ongoing low back pain as he points to his right lower back near the SI joint. Patient does say it radiates sometimes to the right upper leg along the lateral aspect and into the right knee. Patient is currently positive for COVID-19. Patient denies increased chest pain, increasing SOB, change in vision, loss of bowel/bladder control. Past Medical History Past Medical History: Atrial Fibrillation, Cancer, Diabetes Mellitus, GERD/Reflux, Hyperlipidemia, Hypertension, Memory Impairment, Osteoarthritis (OA), Pneumonia Additional Past Medical History / Comment(s): FELL 07/09/19 FX LT RADIUS, FREQUENT FALLS-REASON UNKNOWN. 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 Past Surgical History: Back Surgery, Breast Surgery, Orthopedic Surgery Additional Past Surgical History / Comment(s): Bilateral mastectomy with right sided lymp node removal due to cancer, R knee cap removed, Back surgery for herniated disc., Brain stem surgery for decompression-for dizziness, right ankle ORIF, bilateral wrist fractures SX Past Anesthesia/Blood Transfusion Reactions: No Reported Reaction Past Psychological History: No Psychological Hx Reported Smoking Status: Former smoker Past Alcohol Use History: None Reported Additional Past Alcohol Use History / Comment(s): STARTED SMOKING AT AGE 18, SMOKE A PIPE GOES THRU A PACK OF PIPE TOBACCO/DAY quit smoking in 2005 Past Drug Use History: None Reported - Past Family History Father History Unknown: Yes Family Medical History: Congestive Heart Failure (CHF) Additional Family Medical History / Comment(s): at 68. Mother History Unknown: Yes Family Medical History: Hypertension Additional Family Medical History / Comment(s): Pulmonary hypertension. at 78. Medications and Allergies Home Medications Medication Instructions Recorded Confirmed Type metFORMIN HCL [Glucophage] 500 mg PO BID 12/17/18 04/21/21 History Metoprolol Tartrate [Lopressor] 50 mg PO TID 11/06/19 04/21/21 History Atorvastatin [Lipitor] 40 mg PO HS 06/18/20 04/21/21 History DULoxetine HCL [Cymbalta] 60 mg PO BID 06/18/20 04/21/21 History Baclofen [Lioresal] 20 mg PO BID PRN #6 tab 07/07/20 04/21/21 Rx lisinopriL [Prinivil] 20 mg PO BID 10/11/20 04/21/21 History Gabapentin [Neurontin] 300 mg PO BID #6 cap 10/22/20 04/21/21 Rx Folic Acid 1 mg PO DAILY@1200 #30 tab 12/23/20 04/21/21 Rx Magnesium Oxide [Mag-Ox] 400 mg PO TID #90 tab 12/23/20 04/21/21 Rx Thiamine [Vitamin B-1] 100 mg PO DAILY@1200 #30 tab 12/23/20 04/21/21 Rx Multivitamins, Thera [Multivitamin 1 tab PO DAILY@1200 01/09/21 04/21/21 History (formulary)] Triamcinolone 0.1% Ointment 1 applic TOPICAL BID 01/09/21 04/21/21 History [Kenalog 0.1% Ointment] Pyridoxine [Vitamin B-6] 50 mg PO DAILY #30 tab 01/12/21 04/21/21 Rx Cyanocobalamin [Vitamin B-12] 1,000 mcg PO DAILY #30 tab 03/03/21 04/21/21 Rx Aspirin 81 mg PO DAILY #30 tab 04/08/21 04/21/21 Rx Pantoprazole Sodium [Protonix] 40 mg PO BID #60 tab 04/08/21 04/21/21 Rx Sucralfate [Carafate] 1 gm PO AC-TID #120 tab 04/08/21 04/21/21 Rx amLODIPine [Norvasc] 5 mg PO DAILY #30 tab 04/08/21 04/21/21 Rx hydrALAZINE HCL [Apresoline] 25 mg PO BID PRN #60 tab 04/08/21 04/21/21 Rx traMADol HCl [Ultram] 50 mg PO QID PRN 3 Days #12 tab 04/08/21 04/21/21 Rx Calcium Carbonate [Tums] 500 mg PO TID 04/21/21 04/21/21 History Nystatin 100,000 Unit/ml Susp 500,000 unit PO QID PRN 04/21/21 04/21/21 History [Mycostatin Oral Susp] Allergies Allergy/AdvReac Type Severity Reaction Status Date / Time cephalexin monohydrate Allergy Anaphylaxis Verified 04/21/21 16:10 [From Keflex] Cephalosporins Allergy Anaphylaxis Verified 04/21/21 16:10 Penicillins Allergy Anaphylaxis Verified 04/21/21 16:10 Physical Examination Inspection: Negative for any open fractures, significant ecchymosis, erythema, nodules. Sensation: Sensation is equal, symmetric, bilaterally intact in upper and lower extremities Palpation: TTP throughout the lumbar spine especially in the left and right SI joint regions. Non tender to palpation throughout rest of exam Range of motion: Full range of motion bilateral upper extremities; limited range of motion in hip flexion bilaterally. Motor: 3+/5 resisted right hip flexion, right knee flexion/extension. 4+/5 in all other major motor groups Neurovascular status: Refill under 3 seconds bilaterally in digits of upper extremities. Radial pulses intact, 2+ bilaterally. Special tests: Negative Norris's bilaterally; negative clonus bilaterally; negative Homans bilaterally Results - Labs Labs: Abnormal Lab Results - Last 24 Hours (Table) 04/24/21 04/24/21 04/25/21 Range/Units 16:49 20:02 06:00 Sodium (137-145) mmol/L BUN (9-20) mg/dL Glucose (74-99) mg/dL POC Glucose (mg/dL) 142 H 215 H 111 H (75-99) mg/dL 04/25/21 04/25/21 Range/Units 07:10 11:48 Sodium 136 L (137-145) mmol/L BUN 22 H (9-20) mg/dL Glucose 117 H (74-99) mg/dL POC Glucose (mg/dL) 130 H (75-99) mg/dL H & H 04/21/21 04/22/21 04/23/21 Range/Units 15:28 19:11 06:40 Hgb 13.2 13.2 13.4 (13.0-17.5) gm/dL Hct 40.1 40.1 41.0 (39.0-53.0) % 04/24/21 Range/Units 07:35 Hgb 12.7 L (13.0-17.5) gm/dL Hct 39.4 (39.0-53.0) % Coagulation 04/21/21 04/22/21 Range/Units 15:28 19:11 INR 1.0 1.0 (<1.2) Result Diagrams: 04/24/21 07:35 04/25/21 07:10 Assessment and Plan Assessment: 1. Low back pain; right lower extremity weakness 2. History of vertigo, history of falls 3. Multiple medical comorbidities Plan: 1. Low back pain; right lower extremity weakness - x-ray lumbar spine has been ordered for further evaluation. We'll await results from x-ray lumbar spine before proceeding with any potential intervention. At this time we do not recommend any urgent/emergent orthopedic surgical intervention. We'll continue to follow patient in hospital. 2. Appreciate medical, cardio, neuro management 3. Appreciate consult 4. Pain management - gabapentin; tramadol 5. GI prophylaxis - Protonix 6. DVT prophylaxis - Plavix; aspirin Time with Patient: Less than 30
[2021-04-25] MEDS: ATORVASTATIN 40 MG TAB PO SCH (20:43)
[2021-04-25 23:07] LABS: Glucose,Whole Blood 171 mg/dL (75-99)
[2021-04-26 06:29] LABS: Glucose,Whole Blood 126 mg/dL (75-99)
[2021-04-26] MEDS: INSULIN ASPART (NovoLOG) 100 UNIT/ML VIAL SQ SCH ×2 (06:39→11:39)
[2021-04-26] MEDS: SUCRALFATE 1 GM TAB PO SCH ×2 (06:42→11:39)
[2021-04-26] MEDS: PANTOPRAZOLE 40 MG TABLET PO SCH (06:42)
[2021-04-26] MEDS: guaiFENesin-DM 100-10MG/5ML 10 ML CUP PO SCH ×2 (06:42→11:39)
[2021-04-26] MEDS: GABAPENTIN 400 MG CAP PO SCH (07:49)
[2021-04-26] MEDS: ASPIRIN 81 MG PO SCH (07:49)
[2021-04-26] MEDS: CYANOCOBALAMIN 500 MCG TAB PO SCH (07:49)
[2021-04-26] MEDS: METOPROLOL TARTRATE 50 MG TAB PO SCH (07:49)
[2021-04-26] MEDS: amLODIPine 5 MG TAB PO SCH (07:49)
[2021-04-26] MEDS: MAGNESIUM OXIDE 400 MG TAB PO SCH (07:49)
[2021-04-26] MEDS: CLOPIDOGREL 75 MG TAB PO SCH (07:49)
[2021-04-26] MEDS: traMADol 50 MG TAB PO PRN (07:50)
[2021-04-26] MEDS: DULoxetine HCL 60 MG CAPSULE.DR PO SCH (07:50)
[2021-04-26] MEDS: lisinopriL 20 MG TAB PO SCH (07:50)
[2021-04-26] MEDS ORDERED: KETOROLAC 30 MG/ML 1 ML VIAL IVP STA (11:18)
[2021-04-26 11:39] LABS: Glucose,Whole Blood 133 mg/dL (75-99)
[2021-04-26] MEDS: THIAMINE 100 MG TAB PO SCH (11:39)
[2021-04-26] MEDS: FOLIC ACID 1 MG TAB PO SCH (11:39)
[2021-04-26 11:43] VITALS: BP 119/70; PULSE 64; TEMP 98.2
--- NOTE | 2021-04-26 12:12 | P.PN ---
Subjective Progress Note Date: 04/26/21 I am seeing the patient for the first time during this admission for neurological management. Please refer to Dr. Ryan's note for further details. Patient states he is doing well. Patient was on Morphine Q4 hours, tramdol, Toradol, Gabapentin for pain and per nurse he was confused and his morophine was stopped and his mentation improved. Objective - Vital Signs Vital signs: Vital Signs Temp 98.2 F 04/26/21 11:42 Pulse 64 04/26/21 11:42 Resp 18 04/26/21 11:42 BP 119/70 04/26/21 11:42 Pulse Ox 95 04/26/21 11:42 Intake & Output 04/25/21 04/26/21 04/26/21 18:59 06:59 18:59 Intake Total 1722 240 Output Total 1150 650 Balance 572 -410 Intake: Oral 1722 240 Output: Urine 1150 650 Other: Voiding Method Urinal Urinal Urinal # Voids 1 1 - Exam GENERAL: The patient is lying in bed and is not in acute distress. NEUROLOGICAL: Higher mental function: The patient is awake, alert, oriented to self, place. He correctly stated the current year but stated the month is May then said no, I don't know. Patient is following commands. No aphasia and no neglect. Cranial nerves: The pupils are round, equal and reactive to light. Visual bishop are full to confrontation throughout. Extraocular movement is intact no nystagmus is noted. The facial strength is normal throughout. Tongue is midline and moved [id number] without any difficulty. No dysarthria is noted. Motor: The strength is moving all extremities above gravity and no noticeable focality. Cerebellum: Normal finger to nose heel to chin bilaterally. - Labs CBC & Chem 7: 04/24/21 07:35 04/25/21 07:10 Labs: Abnormal Lab Results - Last 24 Hours (Table) 04/25/21 04/25/21 04/25/21 Range/Units 16:29 20:08 23:05 POC Glucose (mg/dL) 130 H 167 H 171 H (75-99) mg/dL 04/26/21 04/26/21 Range/Units 06:28 11:38 POC Glucose (mg/dL) 126 H 133 H (75-99) mg/dL Assessment and Plan Assessment: * Status post stroke code. Patient did not receive TPA. Patient's NIH stroke scale 0. MRI of the brain negative for acute CVA. * History of recurrent falls, probably multifactorial due to reasons as mentioned below. * Transient Encephalopathy due to medication effect (Morphine and multiple m edications)--mentation improved * Recurrent chronic vertigo probably due to peripheral vestibular dysfunction. * History of BPPV, status post microvascular decompression right occipital region * Chronic headaches * Acute Covid-19 infection * Right hip pain * Diabetes * Paroxysmal atrial fibrillation, currently on aspirin, not on anticoagulation. * Hypertension * Obesity Plan: * MRI of the brain was negative for any acute ischemic CVA. 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 * Per Dr. Ryan, patient on dual antiplatelet medication for 3 weeks and then stop aspirin and continue Plavix 75 mg daily. * CTA of head and neck showed no large vessel occlusion, or stenosis or aneurysm. * Continue aspirin. Patient has history of atrial fibrillation, currently not on anticoagulation. Would defer to IM and cardiology team. Cardiology stated to continue current medication. Recommend consider loop recorder or holter monitor as outpatient and to follow-up with cardiology team as outpatient for further management of Atrial fibrillation. * B12 887, folate >20. Continue vitamin B12 orally daily. * Hemoglobin A1c 6.4 * Lipid panel with cholesterol 205, LDL 117, HDL 39 and triglycerides 268. This was while on Lipitor 40 mg. we will increase Lipitor to 80 mg daily to target LDL <70. * Patient's last 2-D echo from 01/11/2021, revealed normal left ventricular size. Mild concentric LVH. EF is between 45-50%. Trace MR. * PT OT evaluate gait. * Recommend patient to follow-up with neurologist within 2 weeks as outpatient. The plan is discussed with the primary team. There is no further neurological work-up. Neurology will sign off. Please reconsult if needed. Kareem Linder M.D. Neuro-Hospitalist Time with Patient: Less than 30
--- NOTE | 2021-04-26 14:01 | P.PN ---
Subjective Progress Note Date: 04/26/21 Principal diagnosis: Low back pain, right hip pain, right lower extremity weakness Patient evaluated at bedside today, he is resting comfortably in the hospital bed. He has noted improvement in his overall symptoms in the low back and right lower extremity symptoms. He has no other orthopedic complaints Objective - Vital Signs Vital signs: Vital Signs Temp 98.2 F 04/26/21 11:42 Pulse 64 04/26/21 11:42 Resp 18 04/26/21 11:42 BP 119/70 04/26/21 11:42 Pulse Ox 95 04/26/21 11:42 Intake & Output 04/25/21 04/26/21 04/26/21 18:59 06:59 18:59 Intake Total 1722 240 Output Total 1150 650 Balance 572 -410 Intake: Oral 1722 240 Output: Urine 1150 650 Other: Voiding Method Urinal Urinal Urinal # Voids 1 1 - Exam Inspection: Negative for any open fractures, significant ecchymosis, erythema, nodules. Sensation: Sensation is equal, symmetric, bilaterally intact in upper and lower extremities Palpation: TTP throughout the lumbar spine especially in the left and right SI joint regions. Non tender to palpation throughout rest of exam Range of motion: Full range of motion bilateral upper extremities; limited range of motion in hip flexion bilaterally. Motor: 4/5 resisted right hip flexion, right knee flexion/extension. 4+/5 in all other major motor groups Neurovascular status: Refill under 3 seconds bilaterally in digits of upper extremities. Radial pulses intact, 2+ bilaterally. Special tests: Negative Norris's bilaterally; negative clonus bilaterally; negative Homans bilaterally - Labs CBC & Chem 7: 04/24/21 07:35 04/25/21 07:10 Labs: Abnormal Lab Results - Last 24 Hours (Table) 04/25/21 04/25/21 04/25/21 Range/Units 16:29 20:08 23:05 POC Glucose (mg/dL) 130 H 167 H 171 H (75-99) mg/dL 04/26/21 04/26/21 Range/Units 06:28 11:38 POC Glucose (mg/dL) 126 H 133 H (75-99) mg/dL Assessment and Plan Assessment: Low-back pain Right lower extremity weakness History of right knee arthroscopy Multiple medical comorbidities Plan: No orthopedic surgical intervention recommended at this time X-rays reviewed of the lumbar spine, no acute fractures or dislocations appreciated. Mild spondylosis noted throughout the lumbar spine with osteophyte formation noted GI and DVT prophylaxis per primary medical service Pain control, patient has been restarted on his home medication, is weighing up working at this time Other medical director recommendations Discharge planning: Orthopedic standpoint patient stable for discharge and follow-up in the outpatient setting Time with Patient: Less than 30
--- NOTE | 2021-04-27 01:17 | P.DS ---
Providers Date of admission: 04/23/21 07:07 Attending physician: Isidro Pressley MD Consults: 04/22/21 10:17 Consult Physician Urgent Consulting Provider: Fang Ryan Consult Reason/Comments: vertigo and low back pain Do you want consulting provider notified?: Yes 04/23/21 08:08 Consult Physician Routine Consulting Provider: Dereck Linder Consult Reason/Comments: ICU Do you want consulting provider notified?: Already Contacted 04/24/21 13:22 Consult Physician Routine Consulting Provider: Emir Anderson Consult Reason/Comments: low back pain with positive straight leg test on the left Do you want consulting provider notified?: Yes Primary care physician: Damon Rodriguez Hospital Course: Diagnoses: Falls without losing consciousness Low back pain with positive right sided straight leg test, evaluated by orthopedic team and cleared for discharge Dizziness with possible vertigo, chronic as per neurology. Stable and improved upon discharge. TIA also suspected. However it was also suspected for transient hypotension and hypoglycemia patient was noticed also his blood pressure on the low side code stroke called on 04/22 for transient confusion, patient currently back to his baseline. Recent diagnosis of fungal esophagitis, also reflux esophagitis. Currently his epigastric pain is improving Gastritis with superficial ulcers with duodenal ulcer Hypertension Chronic kidney disease, stage II paroxysmal atrial fibrillation, not on anticoagulation Diabetes mellitus GERD Hypertension Hyperlipidemia History of memory impairment History of osteoarthritis and chronic low back pain status postsurgery History of frequent falls History of vertigo History of chronic headache Obesity with BMI of 40.9 Hospital course: This is a pleasant 70 years old male with past medical history of Atrial Fibrillation, Diabetes Mellitus, GERD, Hyperlipidemia, Hypertension, Memory Impairment, Osteoarthritis , frequent falls, vertigo, chronic headache, chronic back pain status post surgery Patient was recently discharged from this facility 04/02-04/08 for his fungal esophagitis with duodenal ulcer. At that time patient refused to go to subacute rehab despite recommendation. Biopsy from last time showing mild chronic gastritis, H. pylori negative. Chronic esophagitis with reflux esophagitis Now presents because of fall. Patient admitted with dizziness with low back pain. Patient has been evaluated by several consultants including separating machine operator, retail office manager, neurologist and orthopedic team. Due to his neurological symptoms stroke workup was initiated however MRI of the brain was negative for acute infarct. However there was suspicion of TIA Patient was a started on aspirin and Plavix for 3 weeks and then to be discontinued aspirin and continue with Plavix thereafter per neurologist recommendation. Patient informed and agrees. Risk of bleeding including but not limited to intracranial bleed, GI bleed and/or are explained for him and he verbalized understanding and acceptance The last documented history of atrial fibrillation however patient declines state that his PCP Dr. Rodriguez one-time told him he has atrial fibrillation but this was not confirmed and many years ago since then he hasn't been diagnosed officially with atrial fibrillation or been in treatment for it. However his been evaluated by separating machine operator and echocardiogram showed ejection fraction of 45 -50%. Patient was instructed to follow up with separating machine operator for Holter monitor and he agrees. Patient blood pressure also was borderline, therefore we lowered his lisinopril 20 mg twice a day down to once daily and increase his hydralazine 25 mg and to 10 mg twice a day while he is continued on Norvasc 5 mg. His blood pressure remained stable upon discharge. Also his sugar was controlled without starting his home dose of metformin. Therefore a was instructed to keep holding it was given chicken his sugar 4 times a day, see discharge instruction. Patient verbalized understanding and agrees to it and he has a glucometer at home. Post void residual was checked and was 10 mL. Orthopedic team also consulted for low back pain, x-ray of the lumbar spine show no fracture or dislocation, orthopedic team recommended conservative management and follow-up as an outpatient. Patient informed and he agrees Patient developed by physical therapist and subacute rehab is suggested, protective services social worker was on the case however he has a copay of about $187 each day but she could not afford prefer to go home with home care On the day of discharge patient is back to his bus line he is fully awake and oriented, denies any chest pain or dyspnea. No change in urine or bowel habits. No fever Patient was cleared for discharge by all consultants including neurologist, separating machine operator and orthopedic team. Problems and management plan were discussed with the patient and he verbalized understanding and acceptance Patient was found stable and can be discharged home and guarded prognosis however he needs follow-up as an outpatient. Patient was instructed to follow up with PCP within one week and patient agrees With the appointments made for him On 04/29 and he agrees. Also patient was instructed to follow up with Dr. Anderson on 05/12 and he agrees. And with separating machine operator Dr. Panda on 05/05 and he agrees as well Physical exam Gen: patient is a AAOx3, no distress. CVS: S1-S2, RRR, no murmur Lungs: B/L CTA, no wheezing Abdomen: soft, no distention, no tenderness, positive bowel sounds Extremity: no leg edema or induration Time spent more than 35 minutes Patient Condition at Discharge: Serious Plan - Discharge Summary Discharge Rx Participant: Yes New Discharge Prescriptions: New lisinopriL [Zestril] 20 mg PO DAILY #30 tab hydrALAZINE HCL 10 mg PO BID #60 tablet Clopidogrel [Plavix] 75 mg PO DAILY #30 tab Continue Metoprolol Tartrate [Lopressor] 50 mg PO TID DULoxetine HCL [Cymbalta] 60 mg PO BID Baclofen [Lioresal] 20 mg PO BID PRN #6 tab PRN Reason: Muscle Spasm Folic Acid 1 mg PO DAILY@1200 #30 tab Magnesium Oxide [Mag-Ox] 400 mg PO TID #90 tab Thiamine [Vitamin B-1] 100 mg PO DAILY@1200 #30 tab Pyridoxine [Vitamin B-6] 50 mg PO DAILY #30 tab Cyanocobalamin [Vitamin B-12] 1,000 mcg PO DAILY #30 tab Sucralfate [Carafate] 1 gm PO AC-TID #120 tab Pantoprazole Sodium [Protonix] 40 mg PO BID #60 tab Nystatin 100,000 Unit/ml Susp [Mycostatin Oral Susp] 500,000 unit PO QID PRN PRN Reason: MOUTH INFECTION Calcium Carbonate [Tums] 500 mg PO TID Aspirin 81 mg PO DAILY #21 tab Atorvastatin [Lipitor] 40 mg PO HS Gabapentin [Neurontin] 300 mg PO BID #6 cap Triamcinolone 0.1% Ointment [Kenalog 0.1% Ointment] 1 applic TOPICAL BID Multivitamins, Thera [Multivitamin (formulary)] 1 tab PO DAILY@1200 amLODIPine [Norvasc] 5 mg PO DAILY #30 tab traMADol HCl [Ultram] 50 mg PO QID PRN 3 Days #12 tab PRN Reason: Pain Discontinued metFORMIN HCL [Glucophage] 500 mg PO BID hydrALAZINE HCL [Apresoline] 25 mg PO BID PRN #60 tab PRN Reason: Blood Pressure - High lisinopriL [Prinivil] 20 mg PO BID Discharge Medication List Metoprolol Tartrate [Lopressor] 50 mg PO TID 11/06/19 [History] Atorvastatin [Lipitor] 40 mg PO HS 06/18/20 [History] DULoxetine HCL [Cymbalta] 60 mg PO BID 06/18/20 [History] Baclofen [Lioresal] 20 mg PO BID PRN #6 tab 07/07/20 [Rx] Gabapentin [Neurontin] 300 mg PO BID #6 cap 10/22/20 [Rx] Folic Acid 1 mg PO DAILY@1200 #30 tab 12/23/20 [Rx] Magnesium Oxide [Mag-Ox] 400 mg PO TID #90 tab 12/23/20 [Rx] Thiamine [Vitamin B-1] 100 mg PO DAILY@1200 #30 tab 12/23/20 [Rx] Multivitamins, Thera [Multivitamin (formulary)] 1 tab PO DAILY@1200 01/09/21 [History] Triamcinolone 0.1% Ointment [Kenalog 0.1% Ointment] 1 applic TOPICAL BID 01/09/21 [History] Pyridoxine [Vitamin B-6] 50 mg PO DAILY #30 tab 01/12/21 [Rx] Cyanocobalamin [Vitamin B-12] 1,000 mcg PO DAILY #30 tab 03/03/21 [Rx] Pantoprazole Sodium [Protonix] 40 mg PO BID #60 tab 04/08/21 [Rx] Sucralfate [Carafate] 1 gm PO AC-TID #120 tab 04/08/21 [Rx] amLODIPine [Norvasc] 5 mg PO DAILY #30 tab 04/08/21 [Rx] traMADol HCl [Ultram] 50 mg PO QID PRN 3 Days #12 tab 04/08/21 [Rx] Calcium Carbonate [Tums] 500 mg PO TID 04/21/21 [History] Nystatin 100,000 Unit/ml Susp [Mycostatin Oral Susp] 500,000 unit PO QID PRN 04/21/21 [History] Aspirin 81 mg PO DAILY #21 tab 04/26/21 [Rx] Clopidogrel [Plavix] 75 mg PO DAILY #30 tab 04/26/21 [Rx] hydrALAZINE HCL 10 mg PO BID #60 tablet 04/26/21 [Rx] lisinopriL [Zestril] 20 mg PO DAILY #30 tab 04/26/21 [Rx] Follow up Appointment(s)/Referral(s): Damon Rodriguez MD [Primary Care Provider] - 04/29/21 2:00 pm (With Ale GUTIERREZ) [facility], [NON-STAFF] - 1-2 Days Emir Anderson DO [Doctor of Osteopathic Medicine] - 05/12/21 11:10 am (orthopedic team ) Jose Panda MD [STAFF PHYSICIAN] - 05/05/21 9:45 am (we recommend holter monitor for your possible a fib) Patient Instructions/Handouts: Fall Prevention for Older Adults (DC), Fall Prevention for Older Adults (GEN) Activity/Diet/Wound Care/Special Instructions: Heart healthy diet, low carbohydrate diet 1800 k shimon per day Activity is restricted till you see your doctor we will discharge you on dual antiplatelet medication (both aspirin and plavix) for 3 weeks and then stop aspirin and continue Plavix 75 mg daily. we recommend to check your glucoses 4 times a day, before each meal and at bedtime, keep results in a log book and bring it to your doctor on your appointment date If your glucose less than 70 or more than 400, then call 911 on come to emergenc y room Discharge Disposition: HOME WITH HOME HEALTH SERVICES
== END 2021-04-26 15:28 | disposition home health service (06) | DRG 149 ==
LOC: EC 14:38 → 6NMEDSUR 22:25 → 2SICU 04-22 20:01 → OBSVTOIN 04-23 07:07 → 3SCARD 04-23 11:40
PROVIDERS: ADMIT Internal Medicine; ATTEND Internal Medicine
DX: H81.10 Benign paroxysmal vertigo, unspecified ear (principal); G92.8 Other toxic encephalopathy; U07.1 COVID-19; Z68.41 Body mass index [BMI] 40.0-44.9, adult; N17.9 Acute kidney failure, unspecified; G45.9 Transient cerebral ischemic attack, unspecified; E11.22 Type 2 diabetes mellitus with diabetic chronic kidney disease; E66.9 Obesity, unspecified; E78.5 Hyperlipidemia, unspecified; I12.9 Hypertensive chronic kidney disease with stage 1 through stage 4 chronic kidney disease, or unspecified chronic kidney disease; I48.0 Paroxysmal atrial fibrillation; Z91.81 History of falling; Z90.13 Acquired absence of bilateral breasts and nipples; Z87.891 Personal history of nicotine dependence; Z87.11 Personal history of peptic ulcer disease; Z85.3 Personal history of malignant neoplasm of breast; Z82.49 Family history of ischemic heart disease and other diseases of the circulatory system; Z79.899 Other long term (current) drug therapy; Z79.84 Long term (current) use of oral hypoglycemic drugs; Z79.82 Long term (current) use of aspirin; Z79.02 Long term (current) use of antithrombotics/antiplatelets; T50.905A Adverse effect of unspecified drugs, medicaments and biological substances, initial encounter; K21.00 Gastro-esophageal reflux disease with esophagitis, without bleeding; K26.9 Duodenal ulcer, unspecified as acute or chronic, without hemorrhage or perforation; K29.70 Gastritis, unspecified, without bleeding; N18.2 Chronic kidney disease, stage 2 (mild); G89.29 Other chronic pain; M54.50 Low back pain, unspecified; R29.6 Repeated falls; R29.715 NIHSS score 15; M19.90 Unspecified osteoarthritis, unspecified site; K20.80 Other esophagitis without bleeding
CPT/HCPCS: 36415; 70450; 70496; 70498; 70551; 71045; 72114; 73502; 80048; 80053; 82550; 82607; 82746; 83036; 84295; 84484; 85025; 85610; 85730; 87635; 93308; 96374; 99285

== ENCOUNTER 2021-05-05 13:49 | Observation (INO) | payer MEDICARE ==
[2021-05-05] MEDS ORDERED: SODIUM CHLORIDE 0.9% 500 ML 500 ML IV STA (14:18)
[2021-05-05 14:22] LABS: Glucose,Whole Blood 135 mg/dL (75-99)
--- NOTE | 2021-05-05 14:43 | ED ---
General Adult HPI - General Chief complaint: Syncope Stated complaint: syncope Source: patient, EMS Mode of arrival: EMS Limitations: no limitations - History of Present Illness Initial comments: Kyle is a 70-year-old male well known to the emergency department due to persistent vertigo frequent falls. The patient presents the ER today for episodes of unresponsiveness. Uncertain why EMS was contacted with a report that upon their arrival patient has been somewhat sleepy. He wakes to voice and answers yes or no. He has had a couple episodes of unresponsiveness and has been noted that he has had runs of V. tach on the monitor. EMS did report that after the patient's most recent hospitalization he was discharged home on new medications. He did report to them that he is taking all of his daily medications at once. Uncertain if he is taking multiple doses of wants or not. - Related Data Home Medications Medication Instructions Recorded Confirmed Metoprolol Tartrate [Lopressor] 150 mg PO DAILY 11/06/19 05/05/21 Atorvastatin [Lipitor] 40 mg PO HS 06/18/20 05/05/21 DULoxetine HCL [Cymbalta] 120 mg PO DAILY 06/18/20 05/05/21 Multivitamins, Thera [Multivitamin 1 tab PO DAILY@1200 01/09/21 05/05/21 (formulary)] Triamcinolone 0.1% Ointment 1 applic TOPICAL BID 01/09/21 05/05/21 [Kenalog 0.1% Ointment] Calcium Carbonate [Tums] 1,500 mg PO DAILY 04/21/21 05/05/21 Nystatin 100,000 Unit/ml Susp 500,000 unit PO QID PRN 04/21/21 05/05/21 [Mycostatin Oral Susp] Gabapentin [Neurontin] 600 mg PO DAILY 05/05/21 05/05/21 Magnesium Oxide [Mag-Ox] 1,200 mg PO DAILY 05/05/21 05/05/21 Pantoprazole Sodium [Protonix] 80 mg PO DAILY 05/05/21 05/05/21 Sucralfate [Carafate] 3 gm PO DAILY 05/05/21 05/05/21 hydrALAZINE HCL 20 mg PO DAILY 05/05/21 05/05/21 Previous Rx's Medication Instructions Recorded Baclofen [Lioresal] 20 mg PO BID PRN #6 tab 07/07/20 Folic Acid 1 mg PO DAILY@1200 #30 tab 12/23/20 Thiamine [Vitamin B-1] 100 mg PO DAILY@1200 #30 tab 12/23/20 Pyridoxine [Vitamin B-6] 50 mg PO DAILY #30 tab 01/12/21 Cyanocobalamin [Vitamin B-12] 1,000 mcg PO DAILY #30 tab 03/03/21 amLODIPine [Norvasc] 5 mg PO DAILY #30 tab 04/08/21 traMADol HCl [Ultram] 50 mg PO QID PRN 3 Days #12 tab 04/08/21 Aspirin 81 mg PO DAILY #21 tab 04/26/21 Clopidogrel [Plavix] 75 mg PO DAILY #30 tab 04/26/21 lisinopriL [Zestril] 20 mg PO DAILY #30 tab 04/26/21 Allergies Allergy/AdvReac Type Severity Reaction Status Date / Time cephalexin monohydrate Allergy Anaphylaxis Verified 05/05/21 15:19 [From Keflex] Cephalosporins Allergy Anaphylaxis Verified 05/05/21 15:19 Penicillins Allergy Anaphylaxis Verified 05/05/21 15:19 Review of Systems ROS Statement: Those systems with pertinent positive or pertinent negative responses have been documented in the HPI. ROS Other: All systems not noted in ROS Statement are negative. Past Medical History Past Medical History: Atrial Fibrillation, Cancer, Diabetes Mellitus, GERD/Reflux, Hyperlipidemia, Hypertension, Memory Impairment, Osteoarthritis (OA), Pneumonia Additional Past Medical History / Comment(s): FELL 07/09/19 FX LT RADIUS, FREQUENT FALLS-REASON UNKNOWN. 03-10-16 FELL/FX RT FIBULA, VERTIGO , chronic headaches, BREAST CANCER History of Any Multi-Drug Resistant Organisms: CRE, MRSA Date of last positivie culture/infection: MRSA-03/11 MDRO Source:: Source unknown-MRSA Past Surgical History: Back Surgery, Breast Surgery, Orthopedic Surgery Additional Past Surgical History / Comment(s): Bilateral mastectomy with right sided lymp node removal due to cancer, R knee cap removed, Back surgery for herniated disc., Brain stem surgery for decompression-for dizziness, right ankle ORIF, bilateral wrist fractures SX Past Anesthesia/Blood Transfusion Reactions: No Reported Reaction Past Psychological History: No Psychological Hx Reported Smoking Status: Former smoker Past Alcohol Use History: None Reported Past Drug Use History: None Reported - Past Family History Father History Unknown: Yes Family Medical History: Congestive Heart Failure (CHF) Additional Family Medical History / Comment(s): at 68. Mother History Unknown: Yes Family Medical History: Hypertension Additional Family Medical History / Comment(s): Pulmonary hypertension. at 78. General Exam - General Exam Comments Initial Comments: Physical Exam GENERAL: Chronically ill appearing Obese HENT: Normocephalic, Atraumatic. EYES: PERRL, EOMI PULMONARY: Unlabored respirations. CARDIOVASCULAR: Bradycardic, regular ABDOMEN: Non-distended SKIN: No rashes or bruising : Deferred NEUROLOGIC: Resting, responds to voice, selectively interactive MUSCULOSKELETAL: Moving all extremities with no apparent injury Limitations: no limitations Course Vital Signs 05/05/21 05/05/21 13:55 17:14 Temperature 97.3 F L Pulse Rate 64 62 Respiratory 18 18 Rate Blood Pressure 92/59 94/65 O2 Sat by Pulse 96 98 Oximetry EKG Findings - EKG Comments: EKG Findings:: Initially EKG obtained at 1358, rate is 64 rhythm is sinus with PACs, MO 183 QRS 97 QTC 420, no acute ST elevations or depressions no evidence of ischemia or infarction. Repeat EKG was obtained due to bradycardia, repeat EKG was obtained at 1604 rate is 53-year-old sinus bradycardia with PACs, MO is 187 QRS [address] QTC [address] elevations or depressions no evidence of ischemia or infarction. Medical Decision Making - Medical Decision Making The patient was seen and evaluated history is obtained from review of medical record and EMS. Patient's nephew also provided information he is the one who advised that the patient takes all of the medications that he should per day in the morning. Patient does not take his medications 3 times a day or as prescribed all medications including all oral antihypertensives or taken together in the morning. Present with syncope. I suspect that this is due to polypharmacy. EKG was nondiagnostic EMS and reported possible episode of V. tach I did not witness that here. Patient appears to be resting comfortably on the cot he does open his eyes and respond to voice. He is minimally interactive however he is prescribed pain medications I do think his condition again is due to polypharmacy At this time I don't think it safe to discharge the patient, he has been in the hospital on a nearly weekly basis for recurrent falls and multiple other complaints. I suspect part of his pathology is related to his medication noncompliance. I discussed my concerns with Ale Tomas HOGSHEAD PACKER for Dr Rodriguez who is familiar with the patient. Expressed concern that the patient is not capable of caring for himself and possibly not a candidate for living at home independently. Patient may require placement or guardianship due to his dangerous medical noncompliance. - Lab Data Result diagrams: 05/05/21 14:23 05/05/21 14:23 Lab Results 05/05/21 05/05/21 05/05/21 Range/Units 14:20 14:23 14:23 WBC 10.6 (3.8-10.6) k/uL RBC 3.88 L (4.30-5.90) m/uL Hgb 12.1 L (13.0-17.5) gm/dL Hct 37.6 L (39.0-53.0) % MCV 96.8 (80.0-100.0) fL MCH 31.1 (25.0-35.0) pg MCHC 32.1 (31.0-37.0) g/dL RDW 14.1 (11.5-15.5) % Plt Count 234 (150-450) k/uL MPV 7.5 Neutrophils % 74 % Lymphocytes % 17 % Monocytes % 5 % Eosinophils % 3 % Basophils % 0 % Neutrophils # 7.8 H (1.3-7.7) k/uL Lymphocytes # 1.8 (1.0-4.8) k/uL Monocytes # 0.5 (0-1.0) k/uL Eosinophils # 0.3 (0-0.7) k/uL Basophils # 0.0 (0-0.2) k/uL PT 10.3 (9.0-12.0) sec INR 0.9 (<1.2) APTT 27.4 (22.0-30.0) sec Sodium (137-145) mmol/L Potassium (3.5-5.1) mmol/L Chloride (98-107) mmol/L Carbon Dioxide (22-30) mmol/L Anion Gap mmol/L BUN (9-20) mg/dL Creatinine (0.66-1.25) mg/dL Est GFR (CKD-EPI)AfAm (>60 ml/min/1.73 sqM) Est GFR (CKD-EPI)NonAf (>60 ml/min/1.73 sqM) Glucose (74-99) mg/dL POC Glucose (mg/dL) 135 H (75-99) mg/dL POC Glu Contracts Attorney ID Carmen Rene Calcium (8.4-10.2) mg/dL Magnesium (1.6-2.3) mg/dL Total Bilirubin (0.2-1.3) mg/dL AST (17-59) U/L ALT (4-49) U/L Alkaline Phosphatase (38-126) U/L Troponin I (0.000-0.034) ng/mL Total Protein (6.3-8.2) g/dL Albumin (3.5-5.0) g/dL TSH (0.465-4.680) mIU/L Urine Color Urine Appearance (Clear) Urine pH (5.0-8.0) Ur Specific [place] (1.001-1.035) Urine Protein (Negative) Urine Glucose (UA) (Negative) Urine Ketones (Negative) Urine Blood (Negative) Urine Nitrite (Negative) Urine Bilirubin (Negative) Urine Urobilinogen (<2.0) mg/dL Ur Leukocyte Esterase (Negative) Urine RBC (0-5) /hpf Urine WBC (0-5) /hpf Hyaline Casts (0-2) /lpf 05/05/21 05/05/21 05/05/21 Range/Units 14:23 14:23 14:32 WBC (3.8-10.6) k/uL RBC (4.30-5.90) m/uL Hgb (13.0-17.5) gm/dL Hct (39.0-53.0) % MCV (80.0-100.0) fL MCH (25.0-35.0) pg MCHC (31.0-37.0) g/dL RDW (11.5-15.5) % Plt Count (150-450) k/uL MPV Neutrophils % % Lymphocytes % % Monocytes % % Eosinophils % % Basophils % % Neutrophils # (1.3-7.7) k/uL Lymphocytes # (1.0-4.8) k/uL Monocytes # (0-1.0) k/uL Eosinophils # (0-0.7) k/uL Basophils # (0-0.2) k/uL PT (9.0-12.0) sec INR (<1.2) APTT (22.0-30.0) sec Sodium 138 (137-145) mmol/L Potassium 4.7 (3.5-5.1) mmol/L Chloride 105 (98-107) mmol/L Carbon Dioxide 27 (22-30) mmol/L Anion Gap 6 mmol/L BUN 30 H (9-20) mg/dL Creatinine 1.24 (0.66-1.25) mg/dL Est GFR (CKD-EPI)AfAm 68 (>60 ml/min/1.73 sqM) Est GFR (CKD-EPI)NonAf 59 (>60 ml/min/1.73 sqM) Glucose 131 H (74-99) mg/dL POC Glucose (mg/dL) (75-99) mg/dL POC Glu Contracts Attorney ID Calcium 9.4 (8.4-10.2) mg/dL Magnesium 1.9 (1.6-2.3) mg/dL Total Bilirubin 0.6 (0.2-1.3) mg/dL AST 19 (17-59) U/L ALT 14 (4-49) U/L Alkaline Phosphatase 90 (38-126) U/L Troponin I <0.012 (0.000-0.034) ng/mL Total Protein 6.2 L (6.3-8.2) g/dL Albumin 3.7 (3.5-5.0) g/dL TSH 1.610 (0.465-4.680) mIU/L Urine Color Yellow Urine Appearance Cloudy (Clear) Urine pH 6.0 (5.0-8.0) Ur Specific [place] 1.014 (1.001-1.035) Urine Protein Negative (Negative) Urine Glucose (UA) Negative (Negative) Urine Ketones Negative (Negative) Urine Blood Negative (Negative) Urine Nitrite Negative (Negative) Urine Bilirubin Negative (Negative) Urine Urobilinogen <2.0 (<2.0) mg/dL Ur Leukocyte Esterase Large H (Negative) Urine RBC 3 (0-5) /hpf Urine WBC 28 H (0-5) /hpf Hyaline Casts 1 (0-2) /lpf Disposition Clinical Impression: 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
[2021-05-05 14:47] LABS: Albumin 3.7 g/dL (3.5-5.0); Basophils % (A) 0 %; Calcium 9.4 mg/dL (8.4-10.2); Eosinophils # (A) 0.3 k/uL (0-0.7); Eosinophils % (A) 3 %; HCT 37.6 % (39.0-53.0); HGB 12.1 gm/dL (13.0-17.5); Lymphocytes # (A) 1.8 k/uL (1.0-4.8); Lymphocytes % (A) 17 %; MCH 31.1 pg (25.0-35.0); MCHC 32.1 g/dL (31.0-37.0); MCV 96.8 fL (80.0-100.0); Magnesium 1.9 mg/dL (1.6-2.3); Mean Platelet Volume 7.5; Monocytes # (A) 0.5 k/uL (0-1.0); Monocytes % (A) 5 %; Neutrophils # (A) 7.8 k/uL (1.3-7.7); Neutrophils % (A) 74 %; Platelet Count 234 k/uL (150-450); Potassium 4.7 mmol/L (3.5-5.1); RBC 3.88 m/uL (4.30-5.90); RDW 14.1 % (11.5-15.5); Total Bilirubin 0.6 mg/dL (0.2-1.3); Total Protein 6.2 g/dL (6.3-8.2); WBC 10.6 k/uL (3.8-10.6)
[2021-05-05 14:48] LABS: INR 0.9 (<1.2)
[2021-05-05 14:49] LABS: Partial Thromboplastin Time 27.4 sec (22.0-30.0); Prothrombin Time 10.3 sec (9.0-12.0)
--- NOTE | 2021-05-05 15:01 | XR ---
EXAMINATION TYPE: XR chest 1V portable DATE OF EXAM: 05/05/2021 COMPARISON: Chest x-ray September 20, 2021 HISTORY: Atrial fibrillation and syncope. TECHNIQUE: Single AP portable frontal upright view of the chest is obtained. FINDINGS: Low lung volumes and cardiomegaly redemonstrated. Persistent patchy bibasilar opacities fa voring atelectasis. There is no suspicious new focal air space opacity, pleural effusion, or pneumoth orax seen. The osseous structures are intact. IMPRESSION: Low lung volumes and cardiomegaly with bibasilar linear atelectasis redemonstrated. No n ew focal infiltrate.
[2021-05-05 15:13] LABS: Appearance,Urine Cloudy (Clear); Bilirubin,Urine Negative (Negative); Blood,Urine Negative (Negative); Color,Urine Yellow; Glucose,Urine (UA) Negative (Negative); Hyaline Casts,Urine 1 /lpf (0-2); Ketones,Urine Negative (Negative); Leukocyte Esterase,Urine Large (Negative); Nitrite,Urine Negative (Negative); Protein,Urine Negative (Negative); RBC,Urine 3 /hpf (0-5); Specific Gravity,Urine 1.014 (1.001-1.035); Urobilinogen,Urine <2.0 mg/dL (<2.0); WBC,Urine 28 /hpf (0-5)
[2021-05-05] MEDS ORDERED: GENTAMICIN PER PHARMACY MISCELLANE PRN (16:17)
[2021-05-05] MEDS ORDERED: GENTAMICIN 500 MG in SODIUM CHLORIDE 0.9% 100 ML IVPB ONE (16:30)
[2021-05-05] MEDS ORDERED: NALOXONE 0.4 MG/ML 1 ML VIAL IV PRN (16:53)
[2021-05-05] MEDS: INSULIN ASPART (NovoLOG) 100 UNIT/ML VIAL SQ SCH (21:46)
[2021-05-05] MEDS: MAGNESIUM OXIDE 400 MG TAB PO SCH (21:57)
[2021-05-05] MEDS: GABAPENTIN 300 MG CAP PO SCH (21:57)
[2021-05-05] MEDS: ATORVASTATIN 40 MG TAB PO SCH (21:57)
[2021-05-05] MEDS: traMADol 50 MG TAB PO PRN (21:57)
[2021-05-05] MEDS: PANTOPRAZOLE 40 MG/10 ML VIAL IVP SCH (21:57)
[2021-05-06] MEDS: traMADol 50 MG TAB PO PRN ×3 (03:10→16:50)
[2021-05-06 07:57] LABS: Glucose,Whole Blood 100 mg/dL (75-99)
[2021-05-06 09:22] LABS: Basophils # (A) 0.03 X 10*3/uL (0.00-0.10); Basophils % (A) 0.3 %; Eosinophils # (A) 0.34 X 10*3/uL (0.04-0.35); Eosinophils % (A) 3.3 %; HGB 11.6 g/dL (13.0-17.0); Immature Grans, Automated 0.5 %; Lymphocytes % (A) 22.5 %; MCH 30.1 pg (27.0-32.0); MCHC 31.4 g/dL (32.0-37.0); MCV 95.9 fL (80.0-97.0); Mean Platelet Volume 10.4 fL (9.5-12.2); Monocytes # (A) 0.75 X 10*3/uL (0.20-1.00); Monocytes % (A) 7.4 %; NRBC Per 100 WBC 0 /100 WBCS (0.0-0.0); Neutrophils # (A) 6.73 X 10*3/uL (1.80-7.70); Platelet Count 207 X 10*3/uL (140-440); RBC 3.86 X 10*6/uL (4.40-5.60); RDW 13.5 % (11.5-14.5)
[2021-05-06 09:53] LABS: African American GFR (CKD) 78.4 (60.0-200.0); Albumin/Globulin Ratio 1.9 (1.60-3.17); Anion Gap 10.7 mmol/L (10.00-18.00); BUN/Creat Ratio 17.09 Ratio (12.00-20.00); Blood Urea Nitrogen 18.8 mg/dL (9.0-27.0); Calcium 9.4 mg/dL (8.7-10.3); Carbon Dioxide 28.3 mmol/L (20.0-27.5); Globulin 2.1 g/dL (1.6-3.3); Magnesium 1.8 mg/dL (1.5-2.4); Non-African American GFR(CKD) 67.7 (60.0-200.0); Potassium 4.2 mmol/L (3.5-5.5); Total Bilirubin 0.5 mg/dL (0.30-1.20); Total Protein 6.1 g/dL (6.2-8.2)
[2021-05-06] MEDS: PANTOPRAZOLE 40 MG/10 ML VIAL IVP SCH ×2 (10:25→20:17)
[2021-05-06] MEDS: CLOPIDOGREL 75 MG TAB PO SCH (10:28)
[2021-05-06] MEDS: ASPIRIN 81 MG PO SCH (10:29)
[2021-05-06] MEDS: DULoxetine HCL 60 MG CAPSULE.DR PO SCH ×2 (10:29→20:18)
[2021-05-06] MEDS: SUCRALFATE 1 GM TAB PO SCH ×3 (10:29→17:23)
[2021-05-06] MEDS: metFORMIN 500 MG TAB PO SCH ×2 (10:30→17:23)
[2021-05-06] MEDS: CYANOCOBALAMIN 500 MCG TAB PO SCH (10:31)
[2021-05-06] MEDS: GABAPENTIN 300 MG CAP PO SCH ×2 (10:31→20:17)
[2021-05-06] MEDS: MAGNESIUM OXIDE 400 MG TAB PO SCH ×2 (10:31→20:18)
[2021-05-06] MEDS: PYRIDOXINE 50 MG TAB PO SCH (10:37)
[2021-05-06] MEDS: INSULIN ASPART (NovoLOG) 100 UNIT/ML VIAL SQ SCH ×4 (10:37→20:16)
--- NOTE | 2021-05-06 10:50 | P.CRDCN ---
History of Present Illness Consult date: 05/06/21 History of present illness: HISTORY OF PRESENT ILLNESS: This is a 70-year-old male with a past medical history significant for diabetes, hypertension, hyperlipidemia, chronic vertigo, coronary artery disease with 50% lesion of LAD, and paroxysmal atrial fibrillation not on anticoagulation (reason unknown). 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 We have been asked to see the patient in consultation for syncope. Patient examined at the bedside. Patient states yesterday he was coming out of the bathroom when he felt dizzy and lightheaded. He states he fell to the floor. He does believe that he lost consciousness. He states that his physical therapist found him and called EMS and brought him here to the hospital. The patient does report this has happened multiple times before and he usually does have warning signs such as dizziness or lightheadedness. The patient was found to be hypotensive upon admission to the hospital with a systolic blood pressure in 80s. He is also found to be bradycardic with a heart rate in the 50s. Telemetry reveals sinus mechanism with no signs of AV block. The patient currently denies any chest pain or pressure. He denies shortness of breath. Per the emergency room physician note, the patient was having runs of V. tach on the monitor. However there is no rhythm strips saved in clinical access and there are no rhythm strips in the patient's paper chart. * EKG reveals sinus bradycardia with a heart rate in the 50s. No heart block noted. * Chest xray low lung volumes and cardiomegaly with bibasilar linear atelectasis redemonstrated. No new focal infiltrate. * Laboratory data: WBC 10.2. Hemoglobin 11.6. Platelet count 207. Sodium 144. Potassium 4.2. BUN 18. Creatinine 1.1. TSH 1.610. * Current home cardiac medications include lisinopril 20mg daily, hydralazine 20 mg daily, amlodipine 5 mg daily, metoprolol tartrate 150 mg daily, Plavix 75 mg daily, Lipitor 40 mg daily, aspirin 81 mg daily * Most recent echocardiogram obtained in March 2021 revealed ejection fraction 45-50% with trivial pericardial effusion present. Moderate concentric left ventricular hypertrophy. * Cardiac catheterization history: March [address] Hernandez revealing mild coronary artery disease. 50% mid LAD lesion with iFR normal at 0.97. Normal left-sided filling pressures. Medical management was recommended. REVIEW OF SYSTEMS: At the time of my exam: CONSTITUTIONAL: Denies fever or chills. HEENT: Denies blurred vision, vision changes, or eye pain. Denies hemoptysis CARDIOVASCULAR: Denies chest pain. Denies orthopnea. Denies PND. Denies palpita tions RESPIRATORY: Denies shortness of breath. GASTROINTESTINAL: Denies abdominal pain. Denies nausea or vomiting. HEMATOLOGIC: Denies bleeding disorders. GENITOURINARY: Denies any blood in urine. SKIN: Denies pruitis. Denies rash. PHYSICAL EXAM: VITAL SIGNS: Reviewed. GENERAL: Well-developed in no acute distress. HEENT: Head is normocephalic. Pupils are equal, round. Sclerae anicteric. Mucous membranes of the mouth are moist. Neck supple. No JVD or thyromegaly LUNGS: Respirations even and unlabored. Lungs diminished with scattered rhonchi. Congested cough noted. HEART: Regular rate and rhythm. S1 and S2 heard. ABDOMEN: Soft. Nondistended. Nontender. EXTREMITIES: Normal range of motion. No clubbing or cyanosis. Peripheral pulses intact. Trace lower extremity edema NEUROLOGIC: Awake and alert. Oriented x 3. ASSESSMENT: S/P fall, likely secondary to hypotension, no evidence of cardiac syncope Recent Covid 19 Sinus bradycardia Hypotension History of hypertension Hyperlipidemia Chronic vertigo Coronary artery disease with 50% lesion of LAD Paroxysmal atrial fibrillation not on anticoagulation for unknown reason PLAN: No need to repeat echo as this was performed last month Continue telemetry monitoring Suspect patients dizziness is secondary to hypotension as his BP was in the 80- 90s upon arrival. Patient on multiple cardiac medications at home including lisinopril, hydralazine, amlodipine, and metoprolol. These are all currently on hold. Continue to monitor patient's blood pressure. If and when the patient's blood pressure improves, would recommend DC and hydralazine and amlodipine altogether. Recommend resume lisinopril at a lower dose when able to tolerate. Also recommend decreasing dosage of metoprolol when resumed. Further recommendations pending patient course Nurse practitioner note has been reviewed by physician. Signing provider agrees with the documented findings, assessment, and plan of care. Past Medical History Past Medical History: Atrial Fibrillation, Cancer, Diabetes Mellitus, GERD/Reflux, Hyperlipidemia, Hypertension, Memory Impairment, Osteoarthritis (OA), Pneumonia Additional Past Medical History / Comment(s): FELL 07/09/19 FX LT RADIUS, FREQUENT FALLS-REASON UNKNOWN. 03-10-16 FELL/FX RT FIBULA, VERTIGO , chronic headaches, BREAST CANCER History of Any Multi-Drug Resistant Organisms: CRE, MRSA Date of last positivie culture/infection: MRSA-03/11 MDRO Source:: Source unknown-MRSA Past Surgical History: Back Surgery, Breast Surgery, Orthopedic Surgery Additional Past Surgical History / Comment(s): Bilateral mastectomy with right sided lymp node removal due to cancer, R knee cap removed, Back surgery for herniated disc., Brain stem surgery for decompression-for dizziness, right ankle ORIF, bilateral wrist fractures SX Past Anesthesia/Blood Transfusion Reactions: No Reported Reaction Past Psychological History: No Psychological Hx Reported Smoking Status: Former smoker Past Alcohol Use History: None Reported Past Drug Use History: None Reported - Past Family History Father History Unknown: Yes Family Medical History: Congestive Heart Failure (CHF) Additional Family Medical History / Comment(s): at 68. Mother History Unknown: Yes Family Medical History: Hypertension Additional Family Medical History / Comment(s): Pulmonary hypertension. at 78. Medications and Allergies Home Medications Medication Instructions Recorded Confirmed Type Metoprolol Tartrate [Lopressor] 150 mg PO DAILY 11/06/19 05/05/21 History Atorvastatin [Lipitor] 40 mg PO HS 06/18/20 05/05/21 History DULoxetine HCL [Cymbalta] 120 mg PO DAILY 06/18/20 05/05/21 History Baclofen [Lioresal] 20 mg PO BID PRN #6 tab 07/07/20 05/05/21 Rx Folic Acid 1 mg PO DAILY@1200 #30 tab 12/23/20 05/05/21 Rx Thiamine [Vitamin B-1] 100 mg PO DAILY@1200 #30 tab 12/23/20 05/05/21 Rx Multivitamins, Thera [Multivitamin 1 tab PO DAILY@1200 01/09/21 05/05/21 History (formulary)] Triamcinolone 0.1% Ointment 1 applic TOPICAL BID 01/09/21 05/05/21 History [Kenalog 0.1% Ointment] Pyridoxine [Vitamin B-6] 50 mg PO DAILY #30 tab 01/12/21 05/05/21 Rx Cyanocobalamin [Vitamin B-12] 1,000 mcg PO DAILY #30 tab 03/03/21 05/05/21 Rx amLODIPine [Norvasc] 5 mg PO DAILY #30 tab 04/08/21 05/05/21 Rx traMADol HCl [Ultram] 50 mg PO QID PRN 3 Days #12 tab 04/08/21 05/05/21 Rx Calcium Carbonate [Tums] 1,500 mg PO DAILY 04/21/21 05/05/21 History Nystatin 100,000 Unit/ml Susp 500,000 unit PO QID PRN 04/21/21 05/05/21 History [Mycostatin Oral Susp] Aspirin 81 mg PO DAILY #21 tab 04/26/21 05/05/21 Rx Clopidogrel [Plavix] 75 mg PO DAILY #30 tab 04/26/21 05/05/21 Rx lisinopriL [Zestril] 20 mg PO DAILY #30 tab 04/26/21 05/05/21 Rx Gabapentin [Neurontin] 600 mg PO DAILY 05/05/21 05/05/21 History Magnesium Oxide [Mag-Ox] 1,200 mg PO DAILY 05/05/21 05/05/21 History Pantoprazole Sodium [Protonix] 80 mg PO DAILY 05/05/21 05/05/21 History Sucralfate [Carafate] 3 gm PO DAILY 05/05/21 05/05/21 History hydrALAZINE HCL 20 mg PO DAILY 05/05/21 05/05/21 History Allergies Allergy/AdvReac Type Severity Reaction Status Date / Time cephalexin monohydrate Allergy Anaphylaxis Verified 05/05/21 15:19 [From Keflex] Cephalosporins Allergy Anaphylaxis Verified 05/05/21 15:19 Penicillins Allergy Anaphylaxis Verified 05/05/21 15:19 Physical Exam Vitals: Vital Signs Temp Pulse Pulse Resp BP BP Pulse Ox 05/06/21 08:00 98.3 F 65 16 112/69 92 L 05/06/21 07:00 98.2 F 54 L 18 114/73 95 05/06/21 03:00 52 L 20 114/73 95 05/06/21 02:00 52 L 18 104/70 95 05/06/21 01:00 54 L 18 92/62 95 05/06/21 00:00 53 L 18 114/75 95 05/05/21 23:58 54 L 18 103/68 99 05/05/21 19:06 55 L 18 98/82 97 05/05/21 17:14 62 18 94/65 98 05/05/21 13:55 97.3 F L 64 18 92/59 96 Intake and Output 05/05/21 05/06/21 05/06/21 22:59 06:59 14:59 Intake Total 118 Balance 118 Intake: Oral 118 Results 05/06/21 05:30 05/06/21 05:30 Cardiac Enzymes 05/05/21 05/05/21 Range/Units 14:23 14:23 AST 19 (17-59) U/L Troponin I <0.012 (0.000-0.034) ng/mL Coagulation 05/05/21 Range/Units 14:23 PT 10.3 (9.0-12.0) sec APTT 27.4 (22.0-30.0) sec CBC 05/05/21 Range/Units 14:23 WBC 10.6 (3.8-10.6) k/uL RBC 3.88 L (4.30-5.90) m/uL Hgb 12.1 L (13.0-17.5) gm/dL Hct 37.6 L (39.0-53.0) % Plt Count 234 (150-450) k/uL Comprehensive Metabolic Panel 05/05/21 Range/Units 14:23 Sodium 138 (137-145) mmol/L Potassium 4.7 (3.5-5.1) mmol/L Chloride 105 (98-107) mmol/L Carbon Dioxide 27 (22-30) mmol/L BUN 30 H (9-20) mg/dL Creatinine 1.24 (0.66-1.25) mg/dL Glucose 131 H (74-99) mg/dL Calcium 9.4 (8.4-10.2) mg/dL AST 19 (17-59) U/L ALT 14 (4-49) U/L Alkaline Phosphatase 90 (38-126) U/L Total Protein 6.2 L (6.3-8.2) g/dL Albumin 3.7 (3.5-5.0) g/dL Current Medications Generic Name Dose Route Start Last Admin Trade Name Freq PRN Reason Stop Dose Admin Aspirin 81 mg 05/06/21 09:00 Aspirin 81 Mg PO DAILY [facility] Atorvastatin Calcium 40 mg 05/05/21 21:00 05/05/21 21:57 Atorvastatin 40 Mg Tab PO 40 mg HS [facility] Administration Clopidogrel Bisulfate 75 mg 05/06/21 09:00 Clopidogrel 75 Mg Tab PO DAILY [facility] Cyanocobalamin 1,000 mcg 05/06/21 09:00 Cyanocobalamin 500 Mcg Tab PO DAILY [facility] Duloxetine HCl 60 mg 05/06/21 09:00 Duloxetine Hcl 60 Mg Capsule.Dr PO BID [facility] Folic Acid 1 mg 05/06/21 12:00 Folic Acid 1 Mg Tab PO DAILY@1200 [facility] Gabapentin 300 mg 05/05/21 21:00 05/05/21 21:57 Gabapentin 300 Mg Cap PO 300 mg BID [facility] Administration Gentamicin Sulfate 500 mg/ 112.5 mls @ 112.5 mls/hr 05/07/21 05:00 Sodium Chloride IVPB Q36H [facility] Insulin Aspart 0 unit 05/05/21 21:00 05/05/21 21:46 Insulin Aspart (Novolog) 100 Unit/Ml Vial SQ Not Given ACHS [facility] Protocol Magnesium Oxide 400 mg 05/05/21 21:00 05/05/21 21:57 Magnesium Oxide 400 Mg Tab PO 400 mg BID [facility] Administration Metformin HCl 500 mg 05/06/21 07:30 Metformin 500 Mg Tab PO BID-W/MEALS [facility] Miscellaneous Information 0 each 05/05/21 16:17 Gentamicin Per Pharmacy MISCELLANE DIRECTED PRN PER PROTOCOL Multivitamins 1 each 05/06/21 12:00 Multivitamins, Thera 1 Each Tab PO DAILY@1200 [facility] Naloxone HCl 0.2 mg 05/05/21 16:53 Naloxone 0.4 Mg/Ml 1 Ml Vial IV Q2M PRN Opioid Reversal Pantoprazole Sodium 40 mg 05/05/21 21:00 05/05/21 21:57 Pantoprazole 40 Mg/10 Ml Vial IVP 40 mg BID [facility] Administration Pyridoxine HCl 50 mg 05/06/21 09:00 Pyridoxine 50 Mg Tab PO DAILY [facility] Sucralfate 1 gm 05/06/21 07:30 Sucralfate 1 Gm Tab PO AC-TID [facility] Thiamine HCl 100 mg 05/06/21 12:00 Thiamine 100 Mg Tab PO DAILY@1200 [facility] Tramadol HCl 50 mg 05/05/21 20:17 02//22 03:10 Tramadol 50 Mg Tab PO 50 mg QID PRN Administration Pain Intake and Output 05/05/21 05/06/21 05/06/21 22:59 06:59 14:59 Intake Total 118 Balance 118 Intake: Oral 118 05/05/21 14:23 05/05/21 14:23
[2021-05-06 11:34] LABS: Glucose,Whole Blood 162 mg/dL (75-99)
[2021-05-06] MEDS: THIAMINE 100 MG TAB PO SCH (12:13)
[2021-05-06] MEDS: MULTIVITAMINS, THERA 1 EACH TAB PO SCH (12:13)
[2021-05-06] MEDS: FOLIC ACID 1 MG TAB PO SCH (12:16)
--- NOTE | 2021-05-06 12:58 | P.HPIM ---
<Jeronimo, - Last Filed: 05/06/21 12:28> History of Present Illness H&P Date: 05/06/21 Chief Complaint: Syncope Patient is a 70-year-old male that presented to the ER for syncope, falls, and vertigo. Patient has a pertinent medical history of atrial fib, diabetes, GERD, hyperlipidemia, hypertension, memory impairment, osteoarthritis, chronic headache, chronic back pain, and history of multiple falls with fracture at home. Patient was hypotensive and bradycardic in the emergency room, EMS reported that the patient might have took all of his daily medications at once. So instead of taking 1 pill 3 times a day he was taking 3 in the morning. Syncope believed to be caused by polypharmacy. Chest x-ray found low lung volumes and cardiomegaly with the bibasilar linear atelectasis redemonstrated. EKG showed bradycardia with a ventricular rate of 53bpm. discussed patient's ability to care for self at home with ER physician. Social work and psychiatry are consulted to determine patient's possible need for guardianship due to dangerous medical noncompliance. Cardiology was consulted for evaluation of bradycardia and hypotension. 05/06/2021 Patient is seen and examined at bedside. Patient is resting in chair in no acute distress. Reports severe back and hip pain. Denies chest pain, shortness of breath, headache, or dizziness at this time. Blood pressure and heart rate have improved since arriving at the ER. States he passed out at home and fell but does not remember what part of his body hit the floor. He is requesting morphine at this time, tramadol dose was increased for back and hip pain. Discussed case with rehabilitation case coordinator, patient already had home care nurse coming to his home and helping him with medications. Patient still took medications inappropriately. Awaiting psychiatry evaluation. Review of Systems Constitutional: Denies chills, Denies fever, Denies weakness Ears, nose, mouth and throat: Reports vertigo, Denies headache Cardiovascular: Reports irregular heart beat, Reports syncope, Denies palpitations, Denies rapid heart beat, Denies shortness of breath Respiratory: Reports cough, Denies wheezing Gastrointestinal: Denies abdominal pain, Denies nausea, Denies vomiting Genitourinary: Denies dysuria, Denies hematuria Musculoskeletal: Reports fractures (history of), Reports myalgias, Denies atrophy Integumentary: Denies change in hair/nails, Denies wounds Neurological: Reports syncope, Denies change in speech, Denies head injury, Denies weakness Psychiatric: Reports memory loss Endocrine: Denies fatigue, Denies high blood sugars Hematologic/Lymphatic: Denies easy bleeding Allergic/Immunologic: Denies angioedema, Denies wheezing Past Medical History Past Medical History: Atrial Fibrillation, Cancer, Diabetes Mellitus, GERD/Reflux, Hyperlipidemia, Hypertension, Memory Impairment, Osteoarthritis (OA), Pneumonia Additional Past Medical History / Comment(s): FELL 07/09/19 FX LT RADIUS, FREQUENT FALLS-REASON UNKNOWN. 03-10-16 FELL/FX RT FIBULA, VERTIGO , chronic headaches, BREAST CANCER History of Any Multi-Drug Resistant Organisms: CRE, MRSA Date of last positivie culture/infection: MRSA-03/11 MDRO Source:: Source unknown-MRSA Past Surgical History: Back Surgery, Breast Surgery, Orthopedic Surgery Additional Past Surgical History / Comment(s): Bilateral mastectomy with right sided lymp node removal due to cancer, R knee cap removed, Back surgery for herniated disc., Brain stem surgery for decompression-for dizziness, right ankle ORIF, bilateral wrist fractures SX Past Anesthesia/Blood Transfusion Reactions: No Reported Reaction Past Psychological History: No Psychological Hx Reported Smoking Status: Former smoker Past Alcohol Use History: None Reported Past Drug Use History: None Reported - Past Family History Father History Unknown: Yes Family Medical History: Congestive Heart Failure (CHF) Additional Family Medical History / Comment(s): at 68. Mother History Unknown: Yes Family Medical History: Hypertension Additional Family Medical History / Comment(s): Pulmonary hypertension. at 78. Medications and Allergies Home Medications Medication Instructions Recorded Confirmed Type Metoprolol Tartrate [Lopressor] 150 mg PO DAILY 11/06/19 05/05/21 History Atorvastatin [Lipitor] 40 mg PO HS 06/18/20 05/05/21 History DULoxetine HCL [Cymbalta] 120 mg PO DAILY 06/18/20 05/05/21 History Baclofen [Lioresal] 20 mg PO BID PRN #6 tab 07/07/20 05/05/21 Rx Folic Acid 1 mg PO DAILY@1200 #30 tab 12/23/20 05/05/21 Rx Thiamine [Vitamin B-1] 100 mg PO DAILY@1200 #30 tab 12/23/20 05/05/21 Rx Multivitamins, Thera [Multivitamin 1 tab PO DAILY@1200 01/09/21 05/05/21 History (formulary)] Triamcinolone 0.1% Ointment 1 applic TOPICAL BID 01/09/21 05/05/21 History [Kenalog 0.1% Ointment] Pyridoxine [Vitamin B-6] 50 mg PO DAILY #30 tab 01/12/21 05/05/21 Rx Cyanocobalamin [Vitamin B-12] 1,000 mcg PO DAILY #30 tab 03/03/21 05/05/21 Rx amLODIPine [Norvasc] 5 mg PO DAILY #30 tab 04/08/21 05/05/21 Rx traMADol HCl [Ultram] 50 mg PO QID PRN 3 Days #12 tab 04/08/21 05/05/21 Rx Calcium Carbonate [Tums] 1,500 mg PO DAILY 04/21/21 05/05/21 History Aspirin 81 mg PO DAILY #21 tab 04/26/21 05/05/21 Rx Clopidogrel [Plavix] 75 mg PO DAILY #30 tab 04/26/21 05/05/21 Rx lisinopriL [Zestril] 20 mg PO DAILY #30 tab 04/26/21 05/05/21 Rx Gabapentin [Neurontin] 600 mg PO DAILY 05/05/21 05/05/21 History Magnesium Oxide [Mag-Ox] 1,200 mg PO DAILY 05/05/21 05/05/21 History Pantoprazole Sodium [Protonix] 80 mg PO DAILY 05/05/21 05/05/21 History Sucralfate [Carafate] 3 gm PO DAILY 05/05/21 05/05/21 History hydrALAZINE HCL 20 mg PO DAILY 05/05/21 05/05/21 History Fludrocortisone [Florinef] 0.2 mg PO DAILY #30 tablet 05/11/21 Rx Midodrine HCl [ProAmatine] 10 mg PO AC-TID 30 Days #90 tablet 05/11/21 Rx Tamsulosin [Flomax] 0.4 mg PO DAILY 30 Days #30 cap 05/11/21 Rx guaiFENesin [Mucinex] 600 mg PO BID 10 Days #20 tab 05/11/21 Rx Allergies Allergy/AdvReac Type Severity Reaction Status Date / Time cephalexin monohydrate Allergy Anaphylaxis Verified 05/05/21 15:19 [From Keflex] Cephalosporins Allergy Anaphylaxis Verified 05/05/21 15:19 Penicillins Allergy Anaphylaxis Verified 05/05/21 15:19 Physical Exam Vitals: Vital Signs Temp Pulse Pulse Pulse Resp BP BP 05/06/21 10:35 68 05/06/21 08:00 98.3 F 65 16 112/69 05/06/21 07:00 98.2 F 54 L 18 114/73 05/06/21 03:00 52 L 20 114/73 05/06/21 02:00 52 L 18 104/70 05/06/21 01:00 54 L 18 92/62 05/06/21 00:00 53 L 18 114/75 05/05/21 23:58 54 L 18 103/68 05/05/21 19:06 55 L 18 98/82 05/05/21 17:14 62 18 94/65 05/05/21 13:55 97.3 F L 64 18 92/59 Pulse Ox 05/06/21 10:35 05/06/21 08:00 92 L 05/06/21 07:00 95 05/06/21 03:00 95 05/06/21 02:00 95 05/06/21 01:00 95 05/06/21 00:00 95 05/05/21 23:58 99 05/05/21 19:06 97 05/05/21 17:14 98 05/05/21 13:55 96 Intake and Output 05/05/21 05/06/21 05/06/21 22:59 06:59 14:59 Intake Total 118 Balance 118 Intake: Oral 118 GENERAL: Alert, oriented, no acute distress HEENT: Conjunctivae normal. eyes normal. NECK: No JVD. No thyroid enlargement. No LNs CARDIOVASCULAR: S1, S2 regular. No murmur RESPIRATION: Breath sounds diminished, rhonchi in the bases. No bronchial breathing. ABDOMEN: Soft, nontender . No guarding. no masses palpable. No ascites, No hepatosplenomegaly.Bowel sounds active LEGS: No edema. no swelling PSYCHIATRY: Alert and oriented X3, mood and affect normal. NERVOUS SYSTEM: Cranial N 2-12 grossly normal. Moves all 4 limbs. Diffuse weakness No focal deficits. Strength and sensation grossly intact.. Skin: no lesions, no rash Joints: No active swelling. No inflammation. Lymphatic system. No LN neck axilla or groin. Results CBC & Chem 7: 05/06/21 05:30 05/06/21 05:30 Labs: Abnormal Lab Results - Last 24 Hours (Table) 05/05/21 05/05/21 05/05/21 Range/Units 14:20 14:23 14:23 WBC (4.50-10.00) X 10*3/uL RBC 3.88 L (4.30-5.90) m/uL Hgb 12.1 L (13.0-17.5) gm/dL Hct 37.6 L (39.0-53.0) % MCHC (32.0-37.0) g/dL Immature Gran # (0.00-0.04) X 10*3/uL Neutrophils # 7.8 H (1.3-7.7) k/uL Carbon Dioxide (20.0-27.5) mmol/L BUN 30 H (9-20) mg/dL Glucose 131 H (74-99) mg/dL POC Glucose (mg/dL) 135 H (75-99) mg/dL AST (14-35) U/L Total Protein 6.2 L (6.3-8.2) g/dL Ur Leukocyte Esterase (Negative) Urine WBC (0-5) /hpf 05/05/21 05/06/21 05/06/21 Range/Units 14:32 05:30 05:30 WBC 10.20 H (4.50-10.00) X 10*3/uL RBC 3.86 L (4.30-5.90) m/uL Hgb 11.6 L (13.0-17.5) gm/dL Hct 37.0 L (39.0-53.0) % MCHC 31.4 L (32.0-37.0) g/dL Immature Gran # 0.05 H (0.00-0.04) X 10*3/uL Neutrophils # (1.3-7.7) k/uL Carbon Dioxide 28.3 H (20.0-27.5) mmol/L BUN (9-20) mg/dL Glucose (74-99) mg/dL POC Glucose (mg/dL) (75-99) mg/dL AST 11 L (14-35) U/L Total Protein 6.1 L (6.3-8.2) g/dL Ur Leukocyte Esterase Large H (Negative) Urine WBC 28 H (0-5) /hpf 05/06/21 05/06/21 Range/Units 07:56 11:32 WBC (4.50-10.00) X 10*3/uL RBC (4.30-5.90) m/uL Hgb (13.0-17.5) gm/dL Hct (39.0-53.0) % MCHC (32.0-37.0) g/dL Immature Gran # (0.00-0.04) X 10*3/uL Neutrophils # (1.3-7.7) k/uL Carbon Dioxide (20.0-27.5) mmol/L BUN (9-20) mg/dL Glucose (74-99) mg/dL POC Glucose (mg/dL) 100 H 162 H (75-99) mg/dL AST (14-35) U/L Total Protein (6.3-8.2) g/dL Ur Leukocyte Esterase (Negative) Urine WBC (0-5) /hpf Chest x-ray: report reviewed Thrombosis Risk Factor Assmnt - DVT/VTE Prophylaxis DVT/VTE Prophylaxis: Pharmacologic Prophylaxis ordered - Choose All That Apply Any of the Below Risk Factors Present?: Yes Each Factor Represents 1 point: Obesity (BMI >25) Other Risk Factors: Yes Each Risk Factor Represents 2 Points: Age 61-74 years Thrombosis Risk Factor Assessment Total Risk Factor Score: 3 Thrombosis Risk Factor Assessment Level: Moderate Risk Assessment and Plan Assessment: Syncope with loss of consciousness secondary to polypharmacy Hypotension Sinus Bradycardia Multiple falls at home Diabetes GERD Hypertension Hyperlipidemia History of osteoarthritis and chronic low back pain History of memory impairment Medical noncompliance Full Code Plan: Continue to monitor blood pressure and heart rate, will restart lisinopril and metoprolol at lower dose per cardiology recommendations Psychiatry referral for cognitive evaluation Social work and case management following for safe discharge plan Continue fall precautions Tramadol increased for back pain Heparin SQ ordered for DVT prophylaxis Full code Further recommendations to come based on patient's clinical course Time with Patient: Greater than 30 <Damon Rodriguez - Last Filed: 05/19/21 19:47> History of Present Illness I have personally seen and examined the patient, reviewed the documentation and agree with the assessment and plan as written. Number of minutes spent on the visit: Greater than 15. Results CBC & Chem 7: 05/10/21 14:37 05/10/21 14:37
--- NOTE | 2021-05-06 14:59 | P.CN ---
Psychiatric Consult - . Consult date: 05/06/21 Consult:: 05/06/21 14:58 IDENTIFYING DATA: This patient is a retired, , 70-year-old male with a significant history of fibrillation, diabetes, osteoarthritis, who presented to the hospital for syncope, falls, and vertigo. HISTORY OF PRESENT ILLNESS: The patient presented to the hospital on 05/06/2021, brought in by EMS for syncope, falls, and vertigo. The patient has significant history of multiple falls. He was noted to be hypotensive and bradycardic in the emergency room. There is concern that the patient took all of his daily medications at once. There was concern for polypharmacy. Psychiatry was consulted for an assessment of the patient's cognitive ability. Upon presentation on the medical floor, the patient is currently not reporting any significant issues regarding his mood. He does express that she took all the medications that was listed in his pillbox for the day of the week and was uncertain whether he was supposed to taking some medications later in the evening. He is vehemently denying any intention of hurting himself. He denies any suicidal or homicidal ideation, intention, and/or plan. He reports no auditory or visual hallucinations. He denies any paranoia or other delusions. The patient is currently prescribed Cymbalta but states that it is not for mood. He reports that he takes his Cymbalta in order to help him with his headaches. He denies any significant psychiatric history. The patient has had multiple falls in the past and there has been talk of him attending rehabilitation. The patient expresses that he does not like to go to rehab because of good his concern for finances. He believes that he would have to pay a co-pay which would be "too much for me." PAST PSYCHIATRIC HISTORY: Patient reports no previous psychiatric diagnoses. Patient denies being on any psychiatric medications. Patient denies any previous psychiatric hospitalizations. Patient denies any psychiatric outpatient follow- up. Patient denies any history of suicide attempts in the past. PAST MEDICAL HISTORY: Past Medical History: Atrial Fibrillation, Cancer, Diabetes Mellitus, GERD/Reflux, Hyperlipidemia, Hypertension, Memory Impairment, Osteoarthritis (OA), Pneumonia Additional Past Medical History / Comment(s): FELL 07/09/19 FX LT RADIUS, FREQUENT FALLS-REASON UNKNOWN. 03-10-16 FELL/FX RT FIBULA, VERTIGO , chronic headaches, BREAST CANCER History of Any Multi-Drug Resistant Organisms: CRE, MRSA Date of last positivie culture/infection: MRSA-03/11 MDRO Source:: Source unknown-MRSA Past Surgical History: Back Surgery, Breast Surgery, Orthopedic Surgery Additional Past Surgical History / Comment(s): Bilateral mastectomy with right sided lymp node removal due to cancer, R knee cap removed, Back surgery for herniated disc., Brain stem surgery for decompression-for dizziness, right ankle ORIF, bilateral wrist fractures SX Past Anesthesia/Blood Transfusion Reactions: No Reported Reaction Past Psychological History: No Psychological Hx Reported Smoking Status: Former smoker Past Alcohol Use History: None Reported Past Drug Use History: None Reported ALLERGIES: Cephalexin, cephalosporins, penicillin CHEMICAL DEPENDENCY HISTORY: Patient denies any tobacco, alcohol, marijuana, or illicit drug use. FAMILY PSYCHIATRIC/SUBSTANCE USE HISTORY: Patient reports no significant family psychiatric history. SOCIAL HISTORY: Patient was born in [place] and raised in [facility]. The patient has been for 10 years after being for 20 years. He is twice in the past. He has 2 adult sons and one adopted adult daughter. He currently lives alone and has significant support. He reports that he has people coming to help him with his activities of daily living including bathing and day-to-day chores. MENTAL STATUS EXAM: General Appearance: Patient appears to be stated age is alert, pleasant, and cooperative. Patient appears to have fair hygiene and grooming wearing hospital gown with fair eye contact. Behavior: Patient is calmly lying in bed without any agitated behavior. Speech: Patient's speech is fluent and nonpressured. Mood/Affect: Patient reports their mood is "doing great", affect is congruent Suicidality/Homicidality: Patient denies having any suicidal or homicidal ideation intent or plan. Perceptions: Patient denies any visual hallucinations and denies any auditory hallucinations Though content/process: There is no evidence of any delusional thought content and thought process is linear and goal-directed. Memory and concentration: AOX4, grossly intact for the purposes of this session. Can spell "WORLD" backwards Judgment and insight: Good IMPRESSIONS: Syncope with loss of consciousness secondary to polypharmacy PLAN: -Continue your medical management -At this time patient DOES NOT meet criteria for inpatient psychiatric admission. -Patient DOES have decision making capacity at this time and is able to reason through and communicate/appreciate the risks, benefits and alternatives to treatment. The patient does express understanding that not going to reha bilitation for strength may lead to further falls however expresses concern regarding the financial aspect of further treatment. -Delirium precautions recommended with patient including - avoiding use of narcotics and [employer] sedatives, limit anticholinergic medications when possible, frequent re-orientation, minimize use of restraints, open window shades during the day and close them at night -Would recommend the following medication changes/additions: No medication recommendations made at this time. -Psychiatry will sign off at this point, please contact with any questions. 05/06/21 14:59
[2021-05-06 15:45] LABS: Appearance,Urine Clear (Clear); Bilirubin,Urine Negative (Negative); Blood,Urine Negative (Negative); Color,Urine Yellow; Glucose,Urine (UA) Negative (Negative); Ketones,Urine Negative (Negative); Leukocyte Esterase,Urine Large (Negative); Mucus,Urine Rare /hpf; Nitrite,Urine Negative (Negative); PH, Urine 6.5 (5.0-8.0); Protein,Urine Negative (Negative); RBC,Urine 2 /hpf (0-5); Specific Gravity,Urine 1.012 (1.001-1.035); Urobilinogen,Urine <2.0 mg/dL (<2.0); WBC,Urine 11 /hpf (0-5)
[2021-05-06] MEDS: HEPARIN SODIUM,PORCINE/PF 5,000 UNIT/0.5 ML SYRINGE SQ SCH ×2 (16:38→23:38)
[2021-05-06] MEDS ORDERED: GENTAMICIN 500 MG in SODIUM CHLORIDE 0.9% 100 ML IVPB SCH (17:00)
[2021-05-06 17:01] LABS: Glucose,Whole Blood 108 mg/dL (75-99)
[2021-05-06 20:09] LABS: Glucose,Whole Blood 141 mg/dL (75-99)
[2021-05-06] MEDS: ATORVASTATIN 40 MG TAB PO SCH (20:17)
[2021-05-06] MEDS ORDERED: HEPARIN SODIUM,PORCINE/PF 5,000 UNIT/0.5 ML SYRINGE SQ SCH (21:00)
[2021-05-07] MEDS: traMADol 50 MG TAB PO PRN ×3 (01:09→18:00)
[2021-05-07] MEDS: GENTAMICIN 500 MG in SODIUM CHLORIDE 0.9% 100 ML IVPB SCH (05:10)
[2021-05-07 07:39] LABS: Glucose,Whole Blood 113 mg/dL (75-99)
[2021-05-07] MEDS: INSULIN ASPART (NovoLOG) 100 UNIT/ML VIAL SQ SCH ×4 (07:43→20:32)
[2021-05-07] MEDS: MAGNESIUM OXIDE 400 MG TAB PO SCH ×2 (08:03→20:31)
[2021-05-07] MEDS: CYANOCOBALAMIN 500 MCG TAB PO SCH (08:03)
[2021-05-07] MEDS: DULoxetine HCL 60 MG CAPSULE.DR PO SCH ×2 (08:03→20:31)
[2021-05-07] MEDS: PYRIDOXINE 50 MG TAB PO SCH (08:03)
[2021-05-07] MEDS: GABAPENTIN 300 MG CAP PO SCH ×2 (08:03→20:32)
[2021-05-07] MEDS: CLOPIDOGREL 75 MG TAB PO SCH (08:03)
[2021-05-07] MEDS: ASPIRIN 81 MG PO SCH (08:03)
[2021-05-07] MEDS: SUCRALFATE 1 GM TAB PO SCH ×3 (08:03→18:01)
[2021-05-07] MEDS: metFORMIN 500 MG TAB PO SCH ×2 (08:03→18:01)
[2021-05-07] MEDS: PANTOPRAZOLE 40 MG/10 ML VIAL IVP SCH ×2 (08:03→20:31)
[2021-05-07] MEDS: HEPARIN SODIUM,PORCINE/PF 5,000 UNIT/0.5 ML SYRINGE SQ SCH ×2 (08:04→18:01)
--- NOTE | 2021-05-07 11:10 | P.PN ---
Subjective This is a 70-year-old male with a past medical history significant for diabetes, hypertension, hyperlipidemia, chronic vertigo, coronary artery disease with 50% lesion of LAD, and paroxysmal atrial fibrillation not on anticoagulation (reason unknown). 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 We have been asked to see the patient in consultation for syncope. Patient examined at the bedside. Patient states yesterday he was coming out of the bathroom when he felt dizzy and lightheaded. He states he fell to the floor. He does believe that he lost consciousness. He states that his physical therapist found him and called EMS and brought him here to the hospital. The patient does report this has happened multiple times before and he usually does have warning signs such as dizziness or lightheadedness. The patient was found to be hypotensive upon admission to the hospital with a systolic blood pressure in 80s. He is also found to be bradycardic with a heart rate in the 50s. Telemetry reveals sinus mechanism with no signs of AV block. The patient currently denies any chest pain or pressure. He denies shortness of breath. Per the emergency room physician note, the patient was having runs of V. tach on the monitor. However there is no rhythm strips saved in clinical access and there are no rhythm strips in the patient's paper chart. * EKG reveals sinus bradycardia with a heart rate in the 50s. No heart block noted. * Chest xray low lung volumes and cardiomegaly with bibasilar linear atelectasis redemonstrated. No new focal infiltrate. * Laboratory data: WBC 10.2. Hemoglobin 11.6. Platelet count 207. Sodium 144. Potassium 4.2. BUN 18. Creatinine 1.1. TSH 1.610. * Current home cardiac medications include lisinopril 20mg daily, hydralazine 20 mg daily, amlodipine 5 mg daily, metoprolol tartrate 150 mg daily, Plavix 75 mg daily, Lipitor 40 mg daily, aspirin 81 mg daily * Most recent echocardiogram obtained in March 2021 revealed ejection fraction 45-50% with trivial pericardial effusion present. Moderate concentric left ventricular hypertrophy. * Cardiac catheterization history: March [address] Hernandez revealing mild coronary artery disease. 50% mid LAD lesion with iFR normal at 0.97. Normal left-sided filling pressures. Medical management was recommended. 05/07 Patient has been taken off of all of his antihypertensive medications with improvement in blood pressures. He states he still has been somewhat lightheaded when he stands up too quickly. He states he became lightheaded with orthostatic vitals with orthostatics going from from 137 down to 93 with standing up however 2 hours later from 125 down to 113. Symptoms appears somewhat worse in the early childhood services coordinator and we will check cortisol to rule out adrenal insufficiency. Additionally start Midrin and monitor. PHYSICAL EXAM: VITAL SIGNS: Reviewed. GENERAL: Well-developed in no acute distress. HEENT: Head is normocephalic. Pupils are equal, round. Sclerae anicteric. Mucous membranes of the mouth are moist. Neck supple. No JVD or thyromegaly LUNGS: Respirations even and unlabored. Lungs diminished with scattered rhonchi. Congested cough noted. HEART: Regular rate and rhythm. S1 and S2 heard. ABDOMEN: Soft. Nondistended. Nontender. EXTREMITIES: Normal range of motion. No clubbing or cyanosis. Peripheral pulses intact. Trace lower extremity edema NEUROLOGIC: Awake and alert. Oriented x 3. ASSESSMENT: S/P fall, likely secondary to hypotension, no evidence of cardiac syncope Recent Covid 19 Sinus bradycardia Hypotension History of hypertension Hyperlipidemia Chronic vertigo Coronary artery disease with 50% lesion of LAD Paroxysmal atrial fibrillation not on anticoagulation for unknown reason Orthostatic hypotension PLAN: Suspect patients dizziness is secondary to hypotension as his BP was in the 80- 90s upon arrival. Patient has been taken off of all antihypertensive medications and still having some orthostatic hypotension feeling lightheaded with standing up this morning with systolics dropping from the 130s down to the 90s. We will continue to hold all antihypertensives and add Midodrine 5mg tid. Questionable UTI and some of this may be related to infectious etiology and transient however continue supportive care. Check cortisols additionally to rule out any adrenal insufficiency. Objective - Vital Signs Vital signs: Vital Signs Temp 98.2 F 05/07/21 07:00 Pulse 76 05/07/21 07:00 Resp 18 05/07/21 07:00 BP 125/75 05/07/21 07:00 Pulse Ox 94 L 05/07/21 07:00 Intake & Output 05/06/21 05/07/21 05/07/21 18:59 06:59 18:59 Intake Total 1071 Output Total 500 1100 Balance 571 -1100 Weight 136.5 kg Intake: Oral 1071 Output: Urine 500 1100 Emesis 0 Other: # Voids 3 2 # Bowel Movements 1 - Labs CBC & Chem 7: 05/06/21 05:30 05/06/21 05:30 Labs: Abnormal Lab Results - Last 24 Hours (Table) 05/06/21 05/06/21 05/06/21 Range/Units 11:32 15:27 17:00 POC Glucose (mg/dL) 162 H 108 H (75-99) mg/dL Ur Leukocyte Esterase Large H (Negative) Urine WBC 11 H (0-5) /hpf Urine Mucus Rare H (None) /hpf 05/06/21 05/07/21 Range/Units 20:08 07:38 POC Glucose (mg/dL) 141 H 113 H (75-99) mg/dL Ur Leukocyte Esterase (Negative) Urine WBC (0-5) /hpf Urine Mucus (None) /hpf Microbiology - Last 24 Hours (Table) 05/06/21 15:27 Urine Culture - Preliminary Urine,Clean Catch
[2021-05-07 12:26] LABS: Glucose,Whole Blood 163 mg/dL (75-99)
[2021-05-07] MEDS: MIDODRINE 5 MG TAB PO SCH ×2 (13:10→18:01)
[2021-05-07] MEDS: MULTIVITAMINS, THERA 1 EACH TAB PO SCH (13:11)
[2021-05-07] MEDS: FOLIC ACID 1 MG TAB PO SCH (13:11)
[2021-05-07] MEDS: THIAMINE 100 MG TAB PO SCH (13:11)
[2021-05-07 17:21] LABS: Glucose,Whole Blood 123 mg/dL (75-99)
--- NOTE | 2021-05-07 19:16 | PN ---
PROGRESS NOTE DATE OF SERVICE: 05/07/2021 This 70-year-old gentleman who was admitted with syncope, possibly secondary to polypharmacy, is being closely monitored. No chest pain. No palpitations. No fever. PHYSICAL EXAMINATION: Pulse 73, blood pressure 132/79. Some orthostatic changes. Pulse ox 94% on room air. HEENT: Conjunctivae normal. NECK: No jugular venous distention. CARDIOVASCULAR: S1, S2 muffled. RESPIRATION: Breath sounds diminished at the bases. ABDOMEN: Soft. NERVOUS SYSTEM: No focal deficit. LABS: Noted. Hemoglobin 11.6. ASSESSMENT: 1. Syncope with loss of conscious, possibly polypharmacy, possibly orthostatic hypotension. 2. Acute urinary tract infection. 3. Sinus bradycardia. 4. Multiple falls. 5. Diabetes mellitus. 6. Gastroesophageal reflux disease. RECOMMENDATIONS AND DISCUSSION: I recommend to continue current medications, continue with the monitoring, symptomatic treatment. Repeat labs. Also recommend empiric course of antibiotics and cultures are as well. See orders for further details. MMODL / IJN: [id number] /
[2021-05-07 19:55] LABS: Glucose,Whole Blood 149 mg/dL (75-99)
[2021-05-07] MEDS: ATORVASTATIN 40 MG TAB PO SCH (20:31)
[2021-05-07] MEDS: SULFAMETHOX-TMP 800-160MG 1 EACH TAB PO SCH (20:31)
[2021-05-08] MEDS: HEPARIN SODIUM,PORCINE/PF 5,000 UNIT/0.5 ML SYRINGE SQ SCH ×4 (00:41→23:00)
[2021-05-08] MEDS: traMADol 50 MG TAB PO PRN ×3 (02:05→19:21)
[2021-05-08 07:48] LABS: Glucose,Whole Blood 107 mg/dL (75-99)
[2021-05-08] MEDS: INSULIN ASPART (NovoLOG) 100 UNIT/ML VIAL SQ SCH ×4 (07:56→21:11)
[2021-05-08] MEDS: SULFAMETHOX-TMP 800-160MG 1 EACH TAB PO SCH ×2 (08:19→19:21)
[2021-05-08] MEDS: PANTOPRAZOLE 40 MG/10 ML VIAL IVP SCH ×2 (08:19→19:20)
[2021-05-08] MEDS: ASPIRIN 81 MG PO SCH (08:20)
[2021-05-08] MEDS: CYANOCOBALAMIN 500 MCG TAB PO SCH (08:20)
[2021-05-08] MEDS: metFORMIN 500 MG TAB PO SCH ×2 (08:20→18:01)
[2021-05-08] MEDS: MAGNESIUM OXIDE 400 MG TAB PO SCH ×2 (08:20→19:21)
[2021-05-08] MEDS: MIDODRINE 5 MG TAB PO SCH ×3 (08:20→18:01)
[2021-05-08] MEDS: PYRIDOXINE 50 MG TAB PO SCH (08:20)
[2021-05-08] MEDS: DULoxetine HCL 60 MG CAPSULE.DR PO SCH ×2 (08:20→19:22)
[2021-05-08] MEDS: GABAPENTIN 300 MG CAP PO SCH ×2 (08:20→19:21)
[2021-05-08] MEDS: CLOPIDOGREL 75 MG TAB PO SCH (08:20)
[2021-05-08] MEDS: SUCRALFATE 1 GM TAB PO SCH ×3 (08:20→18:01)
[2021-05-08 08:59] LABS: Basophils # (A) 0.04 X 10*3/uL (0.00-0.10); Basophils % (A) 0.5 %; Eosinophils # (A) 0.33 X 10*3/uL (0.04-0.35); Eosinophils % (A) 4.1 %; HGB 12.3 g/dL (13.0-17.0); Immature Grans, Automated 0.2 %; Lymphocytes # (A) 2.16 X 10*3/uL (0.90-5.00); Lymphocytes % (A) 26.9 %; MCH 30.6 pg (27.0-32.0); MCHC 32.4 g/dL (32.0-37.0); MCV 94.5 fL (80.0-97.0); Mean Platelet Volume 10.5 fL (9.5-12.2); Monocytes # (A) 0.58 X 10*3/uL (0.20-1.00); Monocytes % (A) 7.2 %; NRBC Per 100 WBC 0 /100 WBCS (0.0-0.0); Neutrophils # (A) 4.91 X 10*3/uL (1.80-7.70); Neutrophils % (A) 61.1 %; Platelet Count 204 X 10*3/uL (140-440); RBC 4.02 X 10*6/uL (4.40-5.60); RDW 13.4 % (11.5-14.5); WBC 8.04 X 10*3/uL (4.50-10.00)
[2021-05-08 09:04] LABS: African American GFR (CKD) 69.9 (60.0-200.0); Albumin/Globulin Ratio 1.81 (1.60-3.17); Anion Gap 13.4 mmol/L (10.00-18.00); BUN/Creat Ratio 10.83 Ratio (12.00-20.00); Blood Urea Nitrogen 13.1 mg/dL (9.0-27.0); Calcium 9.4 mg/dL (8.7-10.3); Carbon Dioxide 26.5 mmol/L (20.0-27.5); Globulin 2.2 g/dL (1.6-3.3); Non-African American GFR(CKD) 60.3 (60.0-200.0); Total Bilirubin 0.4 mg/dL (0.30-1.20); Total Protein 6.2 g/dL (6.2-8.2)
--- NOTE | 2021-05-08 09:41 | P.PN ---
Subjective This is a 70-year-old male with a past medical history significant for diabetes, hypertension, hyperlipidemia, chronic vertigo, coronary artery disease with 50% lesion of LAD, and paroxysmal atrial fibrillation not on anticoagulation (reason unknown). 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 We have been asked to see the patient in consultation for syncope. Patient examined at the bedside. Patient states yesterday he was coming out of the bathroom when he felt dizzy and lightheaded. He states he fell to the floor. He does believe that he lost consciousness. He states that his physical therapist found him and called EMS and brought him here to the hospital. The patient does report this has happened multiple times before and he usually does have warning signs such as dizziness or lightheadedness. The patient was found to be hypotensive upon admission to the hospital with a systolic blood pressure in 80s. He is also found to be bradycardic with a heart rate in the 50s. Telemetry reveals sinus mechanism with no signs of AV block. The patient currently denies any chest pain or pressure. He denies shortness of breath. Per the emergency room physician note, the patient was having runs of V. tach on the monitor. However there is no rhythm strips saved in clinical access and there are no rhythm strips in the patient's paper chart. * EKG reveals sinus bradycardia with a heart rate in the 50s. No heart block noted. * Chest xray low lung volumes and cardiomegaly with bibasilar linear atelectasis redemonstrated. No new focal infiltrate. * Laboratory data: WBC 10.2. Hemoglobin 11.6. Platelet count 207. Sodium 144. Potassium 4.2. BUN 18. Creatinine 1.1. TSH 1.610. * Current home cardiac medications include lisinopril 20mg daily, hydralazine 20 mg daily, amlodipine 5 mg daily, metoprolol tartrate 150 mg daily, Plavix 75 mg daily, Lipitor 40 mg daily, aspirin 81 mg daily * Most recent echocardiogram obtained in March 2021 revealed ejection fraction 45-50% with trivial pericardial effusion present. Moderate concentric left ventricular hypertrophy. * Cardiac catheterization history: March [address] Hernandez revealing mild coronary artery disease. 50% mid LAD lesion with iFR normal at 0.97. Normal left-sided filling pressures. Medical management was recommended. 05/07 Patient has been taken off of all of his antihypertensive medications with improvement in blood pressures. He states he still has been somewhat lightheaded when he stands up too quickly. He states he became lightheaded with orthostatic vitals with orthostatics going from from 137 down to 93 with standing up however 2 hours later from 125 down to 113. 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 Additionally start Midrin and monitor. 05/08 Patient was started on Midrin yesterday however orthostatics from this morning still significant with systolics dropping from 150 down to 93. Order is a level was low at 4. denies any chest pain or pressure. Continued cough. Still feeling "fatigued". PHYSICAL EXAM: VITAL SIGNS: Reviewed. GENERAL: Well-developed in no acute distress. HEENT: Head is normocephalic. Pupils are equal, round. Sclerae anicteric. Mucous membranes of the mouth are moist. Neck supple. No JVD or thyromegaly LUNGS: Respirations even and unlabored. Lungs diminished with scattered rhonchi. Congested cough noted. HEART: Regular rate and rhythm. S1 and S2 heard. ABDOMEN: Soft. Nondistended. Nontender. EXTREMITIES: Normal range of motion. No clubbing or cyanosis. Peripheral pulses intact. Trace lower extremity edema NEUROLOGIC: Awake and alert. Oriented x 3. ASSESSMENT: S/P fall, likely secondary to hypotension, no evidence of cardiac syncope Recent Covid 19 Sinus bradycardia Hypotension History of hypertension Hyperlipidemia Chronic vertigo Coronary artery disease with 50% lesion of LAD Paroxysmal atrial fibrillation not on anticoagulation for unknown reason Orthostatic hypotension PLAN: Suspect patients dizziness is mainly related to hypotension and orthostatic hypotension with his BP in the 80-90s upon arrival. Orthostatics still abnormal this morning despite Midodrine 5mg TID and will increase to 10mg TID. Cortisol low and therefore will check Cosyntropoin stim test to rule out adrenal insufficiency. Questionable UTI and some of this may be related to infectious etiology and transient however continue supportive care. Objective - Vital Signs Vital signs: Vital Signs Temp 97.8 F 05/08/21 07:30 Pulse 73 05/08/21 07:30 Resp 18 05/08/21 07:30 BP 151/93 05/08/21 07:30 Pulse Ox 95 05/08/21 07:30 Intake & Output 05/07/21 05/08/21 05/08/21 18:59 06:59 18:59 Intake Total 180 250 Output Total 1800 1010 800 Balance -1620 -1010 -550 Intake: Intake, IV Titration 0 Amount Gentamicin 500 mg In 0 Sodium Chloride 0.9% 100 ml @ 112.5 mls/hr IVPB Q24H Y[facility] Rx#:[id number] Gentamicin 500 mg In 0 Sodium Chloride 0.9% 100 ml @ 112.5 mls/hr IVPB Q36H [facility] Rx#:[id number] Oral 180 250 Output: Urine 1800 1010 800 Other: # Voids 1 - Labs CBC & Chem 7: 05/08/21 05:58 05/08/21 05:58 Labs: Abnormal Lab Results - Last 24 Hours (Table) 05/07/21 05/07/21 05/07/21 Range/Units 12:25 17:20 19:54 RBC (4.40-5.60) X 10*6/uL Hgb (13.0-17.0) g/dL Hct (39.6-50.0) % BUN/Creatinine Ratio (12.00-20.00) Ratio POC Glucose (mg/dL) 163 H 123 H 149 H (75-99) mg/dL AST (14-35) U/L 05/08/21 05/08/21 05/08/21 Range/Units 05:58 05:58 07:47 RBC 4.02 L (4.40-5.60) X 10*6/uL Hgb 12.3 L (13.0-17.0) g/dL Hct 38.0 L (39.6-50.0) % BUN/Creatinine Ratio 10.83 L (12.00-20.00) Ratio POC Glucose (mg/dL) 107 H (75-99) mg/dL AST 10 L (14-35) U/L
[2021-05-08] MEDS ORDERED: COSYNTROPIN 0.25 MG VIAL IVP ONE (10:00)
[2021-05-08 12:09] LABS: Glucose,Whole Blood 131 mg/dL (75-99)
[2021-05-08 13:16] LABS: Appearance,Urine Clear (Clear); Bilirubin,Urine Negative (Negative); Blood,Urine Negative (Negative); Color,Urine Yellow; Glucose,Urine (UA) Negative (Negative); Ketones,Urine Negative (Negative); Leukocyte Esterase,Urine Negative (Negative); Nitrite,Urine Negative (Negative); PH, Urine 7.5 (5.0-8.0); Protein,Urine Negative (Negative); Specific Gravity,Urine 1.008 (1.001-1.035); Urobilinogen,Urine <2.0 mg/dL (<2.0)
[2021-05-08] MEDS: MULTIVITAMINS, THERA 1 EACH TAB PO SCH (13:25)
[2021-05-08] MEDS: THIAMINE 100 MG TAB PO SCH (13:25)
[2021-05-08] MEDS: FOLIC ACID 1 MG TAB PO SCH (13:25)
[2021-05-08 17:27] LABS: Glucose,Whole Blood 147 mg/dL (75-99)
[2021-05-08] MEDS: GENTAMICIN 500 MG in SODIUM CHLORIDE 0.9% 100 ML IVPB SCH (18:01)
[2021-05-08] MEDS: ATORVASTATIN 40 MG TAB PO SCH (19:21)
--- NOTE | 2021-05-08 19:57 | PN ---
PROGRESS NOTE DATE OF SERVICE: 05/08/2021 This 70-year-old gentleman admitted with syncope is being closely monitored. Cosyntropin test has been ordered. No chest pain. No palpitations. No fever. PHYSICAL EXAMINATION: Pulse 85, blood pressure 158/89, respiration 18. CHEST: Clear to auscultation. ABDOMEN: Soft, nontender. NERVOUS SYSTEM: No focal deficit. LABS: Glucose 147. ASSESSMENT: 1. Syncope for evaluation, possibly secondary to polypharmacy, possibly orthostatic hypotension. 2. Acute urinary tract infection. 3. Sinus tachycardia. 4. Multiple falls. 5. Diabetes mellitus, type 2. 6. Gastroesophageal reflux disease. RECOMMENDATIONS AND DISCUSSION: I recommend to continue current medications, continue with the monitoring, symptomatic treatment. Cosyntropin test is ordered. Continue with empiric antibiotics. Monitor closely. Further recommendations to follow. MMLELOL / AALIYAH: [id number] /
[2021-05-08 21:04] LABS: Glucose,Whole Blood 107 mg/dL (75-99)
[2021-05-09] MEDS: traMADol 50 MG TAB PO PRN ×3 (03:30→18:20)
[2021-05-09 07:46] LABS: Glucose,Whole Blood 94 mg/dL (75-99)
[2021-05-09] MEDS: GABAPENTIN 300 MG CAP PO SCH ×2 (09:17→22:00)
[2021-05-09] MEDS: CLOPIDOGREL 75 MG TAB PO SCH (09:17)
[2021-05-09] MEDS: DULoxetine HCL 60 MG CAPSULE.DR PO SCH ×2 (09:17→22:00)
[2021-05-09] MEDS: TAMSULOSIN 0.4 MG CAP.ER.24H PO SCH (09:17)
[2021-05-09] MEDS: CYANOCOBALAMIN 500 MCG TAB PO SCH (09:18)
[2021-05-09] MEDS: MAGNESIUM OXIDE 400 MG TAB PO SCH ×2 (09:18→22:01)
[2021-05-09] MEDS: SUCRALFATE 1 GM TAB PO SCH ×3 (09:18→18:16)
[2021-05-09] MEDS: ASPIRIN 81 MG PO SCH (09:18)
[2021-05-09] MEDS: HEPARIN SODIUM,PORCINE/PF 5,000 UNIT/0.5 ML SYRINGE SQ SCH ×3 (09:18→23:30)
[2021-05-09] MEDS: metFORMIN 500 MG TAB PO SCH ×2 (09:18→18:16)
[2021-05-09] MEDS: SULFAMETHOX-TMP 800-160MG 1 EACH TAB PO SCH ×2 (09:19→22:01)
[2021-05-09] MEDS: PYRIDOXINE 50 MG TAB PO SCH (09:20)
[2021-05-09] MEDS: INSULIN ASPART (NovoLOG) 100 UNIT/ML VIAL SQ SCH ×4 (09:20→20:10)
[2021-05-09] MEDS: PANTOPRAZOLE 40 MG/10 ML VIAL IVP SCH ×2 (09:20→22:00)
[2021-05-09] MEDS: MIDODRINE 5 MG TAB PO SCH ×3 (09:50→18:16)
--- NOTE | 2021-05-09 10:23 | P.PN ---
Subjective Progress Note Date: 05/09/21 HISTORY OF PRESENT ILLNESS: This is a 70-year-old male with a past medical history significant for diabetes, hypertension, hyperlipidemia, chronic vertigo, coronary artery disease with 50% lesion of LAD, and paroxysmal atrial fibrillation not on anticoagulation (reason unknown). 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 We have been asked to see the patient in consultation for syncope. Patient examined at the bedside. Patient states yesterday he was coming out of the bathroom when he felt dizzy and lightheaded. He states he fell to the floor. He does believe that he lost consciousness. He states that his physical therapist found him and called EMS and brought him here to the hospital. The patient does report this has happened multiple times before and he usually does have warning signs such as dizziness or lightheadedness. The patient was found to be hypotensive upon admission to the hospital with a systolic blood pressure in 80s. He is also found to be bra dycardic with a heart rate in the 50s. Telemetry reveals sinus mechanism with no signs of AV block. The patient currently denies any chest pain or pressure. He denies shortness of breath. Per the emergency room physician note, the patient was having runs of V. tach on the monitor. However there is no rhythm strips saved in clinical access and there are no rhythm strips in the patient's paper chart. * EKG reveals sinus bradycardia with a heart rate in the 50s. No heart block noted. * Chest xray low lung volumes and cardiomegaly with bibasilar linear atelectasis redemonstrated. No new focal infiltrate. * Laboratory data: WBC 10.2. Hemoglobin 11.6. Platelet count 207. Sodium 144. Potassium 4.2. BUN 18. Creatinine 1.1. TSH 1.610. * Current home cardiac medications include lisinopril 20mg daily, hydralazine 20 mg daily, amlodipine 5 mg daily, metoprolol tartrate 150 mg daily, Plavix 75 mg daily, Lipitor 40 mg daily, aspirin 81 mg daily * Most recent echocardiogram obtained in March 2021 revealed ejection fraction 45-50% with trivial pericardial effusion present. Moderate concentric left ventricular hypertrophy. * Cardiac catheterization history: March [address] Hernandez revealing mild coronary artery disease. 50% mid LAD lesion with iFR normal at 0.97. Normal left-sided filling pressures. Medical management was recommended. 05/07 Patient has been taken off of all of his antihypertensive medications with improvement in blood pressures. He states he still has been somewhat lightheaded when he stands up too quickly. He states he became lightheaded with orthostatic vitals with orthostatics going from from 137 down to 93 with standing up however 2 hours later from 125 down to 113. Symptoms appears somewhat worse in the log rafter and we will check cortisol to rule out adrenal insufficiency. Additionally start Midrin and monitor. 05/08 Patient was started on Midrin yesterday however orthostatics from this morning still significant with systolics dropping from 150 down to 93. Order is a level was low at 4. denies any chest pain or pressure. Continued cough. Still feeling "fatigued". 05/09/2021 Patient examined this morning at the bedside. Patient states he does not feel well this morning. He reports dizziness. Patients orthostatics yesterday remained positive. He has not had orthostatic blood pressures repeated this morning at the time of examination. He denies chest pain or pressure. PHYSICAL EXAM: VITAL SIGNS: Reviewed. GENERAL: Well-developed in no acute distress. HEENT: Head is normocephalic. Pupils are equal, round. Sclerae anicteric. Mucous membranes of the mouth are moist. Neck supple. No JVD or thyromegaly LUNGS: Respirations even and unlabored. Lungs diminished with scattered rhonchi. Congested cough noted. HEART: Regular rate and rhythm. S1 and S2 heard. ABDOMEN: Soft. Nondistended. Nontender. EXTREMITIES: Normal range of motion. No clubbing or cyanosis. Peripheral pulses intact. Trace lower extremity edema NEUROLOGIC: Awake and alert. Oriented x 3. ASSESSMENT: S/P fall, likely secondary to hypotension, no evidence of cardiac syncope Recent Covid 19 Sinus bradycardia Hypotension History of hypertension Hyperlipidemia Chronic vertigo Coronary artery disease with 50% lesion of LAD Paroxysmal atrial fibrillation not on anticoagulation for unknown reason PLAN: Continue telemetry monitoring Continue to monitor blood pressure Repeat orthostatics Patient reports he has an appointment next Sunday with a physician at [facility] Further recommendations pending patient course Nurse practitioner note has been reviewed by physician. Signing provider agrees with the documented findings, assessment, and plan of care. Objective - Vital Signs Vital signs: Vital Signs Temp 98.0 F 05/09/21 07:00 Pulse 84 05/09/21 07:00 Resp 16 05/09/21 07:00 BP 146/92 05/09/21 07:00 Pulse Ox 95 05/09/21 07:00 Intake & Output 05/08/21 05/09/21 05/09/21 18:59 06:59 18:59 Intake Total 1130 Output Total 1200 Balance -70 Intake: Oral 1130 Output: Urine 1200 Other: # Voids 400 4 - Labs CBC & Chem 7: 05/08/21 05:58 05/08/21 05:58 Labs: Abnormal Lab Results - Last 24 Hours (Table) 05/08/21 05/08/21 05/08/21 Range/Units 12:08 17:26 21:03 POC Glucose (mg/dL) 131 H 147 H 107 H (75-99) mg/dL Microbiology - Last 24 Hours (Table) 05/06/21 15:27 Urine Culture - Final Urine,Clean Catch
[2021-05-09 12:51] LABS: Glucose,Whole Blood 157 mg/dL (75-99)
[2021-05-09] MEDS: MULTIVITAMINS, THERA 1 EACH TAB PO SCH (12:53)
[2021-05-09] MEDS: FOLIC ACID 1 MG TAB PO SCH (12:53)
[2021-05-09] MEDS: THIAMINE 100 MG TAB PO SCH (12:54)
--- NOTE | 2021-05-09 15:31 | PN ---
PROGRESS NOTE DATE OF SERVICE: 05/09/2021 This 70-year-old gentleman who was admitted with syncope, being evaluated, underwent a cosyntropin test yesterday. Results are not available. No chest pain. No palpitation. PHYSICAL EXAMINATION: Pulse 84, blood pressure 146/92; severe orthostatic changes present. Respiration 20, temperature 98 degrees. HEENT: Conjunctivae normal. NECK: No jugular venous distention. CARDIOVASCULAR: S1, S2 muffled. RESPIRATION: Breath sounds diminished at the bases. ABDOMEN: Soft, obese. LEGS: No edema. No swelling. NERVOUS SYSTEM: No focal deficit. LABS: WBC 8.2, hemoglobin 12.3. ASSESSMENT: 1. Syncope, possibly secondary to severe orthostatic hypotension. 2. Polypharmacy. 3. Acute urinary tract infection. 4. Sinus tachycardia. 5. Multiple falls. 6. Diabetes mellitus, type 2. RECOMMENDATIONS AND DISCUSSION: I recommend to continue current medications, continue with the monitoring, symptomatic treatment. Await cosyntropin testing. The patient is started on midodrine. Will add Florinef to the current regimen. Further recommendations to follow. MMODL / IJN: [id number] /
[2021-05-09] MEDS: FLUDROCORTISONE 0.1 MG TAB PO SCH (16:40)
[2021-05-09 17:52] LABS: Glucose,Whole Blood 180 mg/dL (75-99)
[2021-05-09 19:56] LABS: Glucose,Whole Blood 81 mg/dL (75-99)
[2021-05-09] MEDS: ATORVASTATIN 40 MG TAB PO SCH (22:00)
[2021-05-10] MEDS: traMADol 50 MG TAB PO PRN ×3 (02:38→20:57)
[2021-05-10] MEDS: GENTAMICIN 500 MG in SODIUM CHLORIDE 0.9% 100 ML IVPB SCH (04:59)
[2021-05-10 07:50] LABS: Glucose,Whole Blood 137 mg/dL (75-99)
[2021-05-10] MEDS: INSULIN ASPART (NovoLOG) 100 UNIT/ML VIAL SQ SCH ×4 (09:30→21:34)
[2021-05-10] MEDS: SUCRALFATE 1 GM TAB PO SCH ×3 (09:32→17:54)
[2021-05-10] MEDS: TAMSULOSIN 0.4 MG CAP.ER.24H PO SCH (09:32)
[2021-05-10] MEDS: ASPIRIN 81 MG PO SCH (09:32)
[2021-05-10] MEDS: MIDODRINE 5 MG TAB PO SCH ×3 (09:32→17:05)
[2021-05-10] MEDS: metFORMIN 500 MG TAB PO SCH ×2 (09:32→17:05)
[2021-05-10] MEDS: HEPARIN SODIUM,PORCINE/PF 5,000 UNIT/0.5 ML SYRINGE SQ SCH ×3 (09:32→22:47)
[2021-05-10] MEDS: GABAPENTIN 300 MG CAP PO SCH ×2 (09:33→20:57)
[2021-05-10] MEDS: FLUDROCORTISONE 0.1 MG TAB PO SCH (09:33)
[2021-05-10] MEDS: PANTOPRAZOLE 40 MG/10 ML VIAL IVP SCH ×2 (09:33→20:57)
[2021-05-10] MEDS: MAGNESIUM OXIDE 400 MG TAB PO SCH ×2 (09:33→20:57)
[2021-05-10] MEDS: DULoxetine HCL 60 MG CAPSULE.DR PO SCH ×2 (09:33→20:57)
[2021-05-10] MEDS: CLOPIDOGREL 75 MG TAB PO SCH (09:33)
[2021-05-10] MEDS: CYANOCOBALAMIN 500 MCG TAB PO SCH (09:33)
[2021-05-10] MEDS: PYRIDOXINE 50 MG TAB PO SCH (09:34)
[2021-05-10] MEDS: SULFAMETHOX-TMP 800-160MG 1 EACH TAB PO SCH ×2 (09:34→20:57)
--- NOTE | 2021-05-10 10:28 | P.PN ---
Subjective Progress Note Date: 05/10/21 HISTORY OF PRESENT ILLNESS: This is a 70-year-old male with a past medical history significant for diabetes, hypertension, hyperlipidemia, chronic vertigo, coronary artery disease with 50% lesion of LAD, and paroxysmal atrial fibrillation not on anticoagulation (reason unknown). 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 We have been asked to see the patient in consultation for syncope. Patient examined at the bedside. Patient states yesterday he was coming out of the bathroom when he felt dizzy and lightheaded. He states he fell to the floor. He does believe that he lost consciousness. He states that his physical therapist found him and called EMS and brought him here to the hospital. The patient does report this has happened multiple times before and he usually does have warning signs such as dizziness or lightheadedness. The patient was found to be hypotensive upon admission to the hospital with a systolic blood pressure in 80s. He is also found to be bra dycardic with a heart rate in the 50s. Telemetry reveals sinus mechanism with no signs of AV block. The patient currently denies any chest pain or pressure. He denies shortness of breath. Per the emergency room physician note, the patient was having runs of V. tach on the monitor. However there is no rhythm strips saved in clinical access and there are no rhythm strips in the patient's paper chart. * EKG reveals sinus bradycardia with a heart rate in the 50s. No heart block noted. * Chest xray low lung volumes and cardiomegaly with bibasilar linear atelectasis redemonstrated. No new focal infiltrate. * Laboratory data: WBC 10.2. Hemoglobin 11.6. Platelet count 207. Sodium 144. Potassium 4.2. BUN 18. Creatinine 1.1. TSH 1.610. * Current home cardiac medications include lisinopril 20mg daily, hydralazine 20 mg daily, amlodipine 5 mg daily, metoprolol tartrate 150 mg daily, Plavix 75 mg daily, Lipitor 40 mg daily, aspirin 81 mg daily * Most recent echocardiogram obtained in March 2021 revealed ejection fraction 45-50% with trivial pericardial effusion present. Moderate concentric left ventricular hypertrophy. * Cardiac catheterization history: March [address] Hernandez revealing mild coronary artery disease. 50% mid LAD lesion with iFR normal at 0.97. Normal left-sided filling pressures. Medical management was recommended. 05/07 Patient has been taken off of all of his antihypertensive medications with improvement in blood pressures. He states he still has been somewhat lightheaded when he stands up too quickly. He states he became lightheaded with orthostatic vitals with orthostatics going from from 137 down to 93 with standing up however 2 hours later from 125 down to 113. 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 Additionally start Midrin and monitor. 05/08 Patient was started on Midrin yesterday however orthostatics from this morning still significant with systolics dropping from 150 down to 93. Order is a level was low at 4. denies any chest pain or pressure. Continued cough. Still feeling "fatigued". 05/09/2021 Patient examined this morning at the bedside. Patient states he does not feel well this morning. He reports dizziness. Patients orthostatics yesterday remained positive. He has not had orthostatic blood pressures repeated this morning at the time of examination. He denies chest pain or pressure. 05/10/2021 Patient examined this morning at the bedside. Patient denies chest pain or pressure. He denies shortness of breath. He states he is overall still not feeling very well. Orthostatic blood pressures remain positive. Blood pressure supine 123/74. Blood pressure sitting 109/65. Blood pressure standing 94/58. PHYSICAL EXAM: VITAL SIGNS: Reviewed. GENERAL: Well-developed in no acute distress. HEENT: Head is normocephalic. Pupils are equal, round. Sclerae anicteric. Mucous membranes of the mouth are moist. Neck supple. No JVD or thyromegaly LUNGS: Respirations even and unlabored. Lungs diminished with scattered rhonchi. Congested cough noted. HEART: Regular rate and rhythm. S1 and S2 heard. ABDOMEN: Soft. Nondistended. Nontender. EXTREMITIES: Normal range of motion. No clubbing or cyanosis. Peripheral pulses intact. Trace lower extremity edema NEUROLOGIC: Awake and alert. Oriented x 3. ASSESSMENT: S/P fall, likely secondary to hypotension, no evidence of cardiac syncope Recent Covid 19 Sinus bradycardia Hypotension History of hypertension Hyperlipidemia Chronic vertigo Coronary artery disease with 50% lesion of LAD Paroxysmal atrial fibrillation not on anticoagulation for unknown reason PLAN: Continue current cardiac medications Patient has an appointment at [facility] next week which he was encouraged to keep and make that appointment No further inpatient recommendations from a cardiac standpoint We will sign off. Please reconsult if needed Nurse practitioner note has been reviewed by physician. Signing provider agrees with the documented findings, assessment, and plan of care. Objective - Vital Signs Vital signs: Vital Signs Temp 98.2 F 05/10/21 07:35 Pulse 100 05/10/21 09:05 Resp 15 05/10/21 07:35 BP 123/74 05/10/21 09:05 Pulse Ox 93 L 05/10/21 01:34 Intake & Output 05/09/21 05/10/21 05/10/21 18:59 06:59 18:59 Intake Total 458 Output Total 1100 600 Balance -642 -600 Intake: Oral 458 Output: Urine 1100 600 Emesis 0 0 Other: # Bowel Movements 2 0 - Labs CBC & Chem 7: 05/08/21 05:58 05/08/21 05:58 Labs: Abnormal Lab Results - Last 24 Hours (Table) 05/09/21 05/09/21 05/10/21 Range/Units 12:50 17:50 07:49 POC Glucose (mg/dL) 157 H 180 H 137 H (75-99) mg/dL Microbiology - Last 24 Hours (Table) 05/08/21 12:50 Urine Culture - Preliminary Urine,Voided
--- NOTE | 2021-05-10 12:02 | XR ---
EXAMINATION TYPE: XR chest 2V DATE OF EXAM: 05/10/2021 COMPARISON: Chest x-ray 5 days ago HISTORY: Cough and dyspnea. TECHNIQUE: Frontal and lateral views of the chest are obtained. FINDINGS: There is improved inspiration current study with bilateral linear scarring or atelectasis. The cardiac silhouette size is less prominent currently within normal limits. Bridging osteophytes anteriorly in the thoracic spine are noted. IMPRESSION: Improved inspiration with mild bibasilar linear scarring and/or atelectasis.
--- NOTE | 2021-05-10 12:11 | XR ---
EXAMINATION TYPE: XR knee complete LT DATE OF EXAM: 05/10/2021 CLINICAL HISTORY: Pain for multiple falls. TECHNIQUE: Three views of the left knee are obtained. COMPARISON: Left knee x-ray January 18, 2021. FINDINGS: There is no acute fracture/dislocation evident in left knee. Moderate to severe narrowing patellofemoral compartment with [id number] spurring redemonstrated. Additional mild to moderate narrowing with mild to moderate spurring medial greater than lateral tibiofemoral compartments is re demonstrated. Suspect persistent moderate size suprapatellar joint effusion. No significant change fr om prior. IMPRESSION: As above.
[2021-05-10 12:28] LABS: Glucose,Whole Blood 154 mg/dL (75-99)
[2021-05-10] MEDS: MULTIVITAMINS, THERA 1 EACH TAB PO SCH (13:27)
[2021-05-10] MEDS: FOLIC ACID 1 MG TAB PO SCH (13:27)
[2021-05-10] MEDS: THIAMINE 100 MG TAB PO SCH (13:27)
[2021-05-10 15:06] LABS: ALT 14 U/L (4-49); AST 24 U/L (17-59); African American GFR (CKD) 68 (>60 ml/min/1.73 sqM); Albumin 3.8 g/dL (3.5-5.0); Albumin/Globulin Ratio 1.5; Alkaline Phosphatase 98 U/L (38-126); Anion Gap 13 mmol/L; Blood Urea Nitrogen 18 mg/dL (9-20); Calcium 9.2 mg/dL (8.4-10.2); Carbon Dioxide 22 mmol/L (22-30); Chloride 99 mmol/L (98-107); Globulin 2.6 g/dL; Glucose 202 mg/dL (74-99); Non-African American GFR(CKD) 59 (>60 ml/min/1.73 sqM); Potassium 4.4 mmol/L (3.5-5.1); Sodium 134 mmol/L (137-145); Total Bilirubin 0.8 mg/dL (0.2-1.3); Total Protein 6.4 g/dL (6.3-8.2)
[2021-05-10 15:10] LABS: Gentamicin,Random 4.2 ug/mL
--- NOTE | 2021-05-10 15:20 | P.PN ---
<Jeronimo, - Last Filed: 05/10/21 15:11> Subjective Progress Note Date: 05/10/21 Principal diagnosis: Syncope Patient is a 70-year-old male that presented to the ER for syncope, falls, and vertigo. Patient has a pertinent medical history of atrial fib, diabetes, GERD, hyperlipidemia, hypertension, memory impairment, osteoarthritis, chronic headache, chronic back pain, and history of multiple falls with fracture at home. Patient was hypotensive and bradycardic in the emergency room, EMS reported that the patient might have took all of his daily medications at once. So instead of taking 1 pill 3 times a day he was taking 3 in the morning. Syncope believed to be caused by polypharmacy. Chest x-ray found low lung volumes and cardiomegaly with the bibasilar linear atelectasis redemonstrated. EKG showed bradycardia with a ventricular rate of 53bpm. discussed patient's ability to care for self at home with ER physician. Social work and psychiatry are consulted to determine patient's possible need for guardianship due to dangerous medical noncompliance. Cardiology was consulted for evaluation of bradycardia and hypotension. 05/06/2021 Patient is seen and examined at bedside. Patient is resting in chair in no acute distress. Reports severe back and hip pain. Denies chest pain, shortness of breath, headache, or dizziness at this time. Blood pressure and heart rate have improved since arriving at the ER. States he passed out at home and fell but does not remember what part of his body hit the floor. He is requesting morphine at this time, tramadol dose was increased for back and hip pain. Discussed case with correctional counselor/case manager, patient already had home care nurse coming to his home and helping him with medications. Patient still took medications inappropriately. Awaiting psychiatry evaluation. hospitalist coverage 05/07/21-05/09/21 05/10/2021 Patient is seen and examined at bedside. Patient is sitting up in a chair, in no acute distress. Endorses severe left knee pain, unable to extend left knee, x-ray was ordered. Denies chest pain, headache, shortness of breath. Continues to have dizziness with position changes. Orthostatic blood pressures continue to be positive. Florinef and Midodrin were added to the treatment plan. Cardiology has signed off. We will continue to monitor blood pressures for 1 more day, works still pending. Chest x-ray today shows improvement of inspiration Objective - Vital Signs Vital signs: Vital Signs Temp 98.2 F 05/10/21 07:35 Pulse 96 05/10/21 12:24 Resp 14 05/10/21 12:24 BP 123/74 05/10/21 09:05 Pulse Ox 93 L 05/10/21 01:34 Intake & Output 05/09/21 05/10/21 05/10/21 18:59 06:59 18:59 Intake Total 458 Output Total 1100 600 Balance -642 -600 Intake: Oral 458 Output: Urine 1100 600 Emesis 0 0 Other: Voiding Method Urinal # Voids 1 # Bowel Movements 2 0 - Exam PHYSICAL EXAM: GENERAL: in no acute distress, well developed HEENT: Conjunctivae normal. eyes normal. NECK: No JVD. No thyroid enlargement. No LNs CARDIOVASCULAR: S1, S2 regular.. No murmur RESPIRATION: Breath sounds diminished in the bases, rhonchi throughout. No bronchial breathing. ABDOMEN: Soft, nontender . No guarding. no masses palpable. No ascites, No hepatosplenomegaly.Bowel sounds heard. LEGS: No edema. no swelling, left knee pain with extension PSYCHIATRY: Alert and oriented X3, mood and affect normal. NERVOUS SYSTEM: Moves all 4 limbs. Diffuse weakness. No focal deficits. Strength and sensation grossly intact.. Skin: no lesions, no rash Joints: No active swelling. No inflammation. Lymphatic system. No LN neck axilla or groin. - Labs CBC & Chem 7: 05/08/21 05:58 05/10/21 14:37 Labs: Abnormal Lab Results - Last 24 Hours (Table) 05/09/21 05/10/21 05/10/21 Range/Units 17:50 07:49 12:27 Sodium (137-145) mmol/L Glucose (74-99) mg/dL POC Glucose (mg/dL) 180 H 137 H 154 H (75-99) mg/dL 05/10/21 Range/Units 14:37 Sodium 134 L (137-145) mmol/L Glucose 202 H (74-99) mg/dL POC Glucose (mg/dL) (75-99) mg/dL Microbiology - Last 24 Hours (Table) 05/08/21 12:50 Urine Culture - Preliminary Urine,Voided Assessment and Plan Assessment: Syncope with loss of consciousness secondary to polypharmacy Orthostatic hypotension Sinus Bradycardia Multiple falls at home Diabetes GERD Hypertension Hyperlipidemia History of osteoarthritis and chronic low back pain History of memory impairment Medical noncompliance Full Code Plan: Continue to monitor blood pressure and heart rate continue midodrine and florinef continue current PRN pain management for knee pain, will follow up with ortho outpatient Continue fall precautions Heparin SQ ordered for DVT prophylaxis Anticipate discharge tomorrow with home care Full code Further recommendations to come based on patient's clinical course Time with Patient: Greater than 30 <Damon Rodriguez - Last Filed: 05/19/21 19:45> Subjective I have personally seen and examined the patient, reviewed the documentation and agree with the assessment and plan as written. Number of minutes spent on the visit: Greater than 15. Objective - Vital Signs Vital signs: Vital Signs Temp 98.4 F 05/11/21 07:10 Pulse 115 H 05/11/21 07:10 Resp 22 05/11/21 07:10 BP 112/69 05/11/21 07:10 Pulse Ox 96 05/11/21 01:38 - Labs CBC & Chem 7: 05/10/21 14:37 05/10/21 14:37
[2021-05-10 15:26] LABS: Basophils % (A) 0 %; Eosinophils # (A) 0.1 k/uL (0-0.7); Eosinophils % (A) 1 %; HCT 37.2 % (39.0-53.0); HGB 11.7 gm/dL (13.0-17.5); Lymphocytes % (A) 6 %; MCH 30.7 pg (25.0-35.0); MCHC 31.4 g/dL (31.0-37.0); MCV 97.6 fL (80.0-100.0); Mean Platelet Volume 7.7; Monocytes # (A) 0.7 k/uL (0-1.0); Monocytes % (A) 4 %; Neutrophils # (A) 13.9 k/uL (1.3-7.7); Neutrophils % (A) 88 %; Platelet Count 201 k/uL (150-450); RBC 3.81 m/uL (4.30-5.90); RDW 13.8 % (11.5-15.5); WBC 15.7 k/uL (3.8-10.6)
[2021-05-10 17:29] LABS: Glucose,Whole Blood 182 mg/dL (75-99)
[2021-05-10] MEDS: ATORVASTATIN 40 MG TAB PO SCH (20:57)
[2021-05-10 20:59] LABS: Glucose,Whole Blood 109 mg/dL (75-99)
[2021-05-11] MEDS: traMADol 50 MG TAB PO PRN ×2 (04:52→13:23)
[2021-05-11 07:34] LABS: Glucose,Whole Blood 133 mg/dL (75-99)
[2021-05-11 07:51] VITALS: BP 112/69; PULSE 115; RESP 22; TEMP 98.4
[2021-05-11] MEDS: INSULIN ASPART (NovoLOG) 100 UNIT/ML VIAL SQ SCH (08:16)
[2021-05-11] MEDS: HEPARIN SODIUM,PORCINE/PF 5,000 UNIT/0.5 ML SYRINGE SQ SCH (08:16)
[2021-05-11] MEDS: FLUDROCORTISONE 0.1 MG TAB PO SCH (08:18)
[2021-05-11] MEDS: DULoxetine HCL 60 MG CAPSULE.DR PO SCH (08:19)
[2021-05-11] MEDS: SUCRALFATE 1 GM TAB PO SCH ×2 (08:19→13:20)
[2021-05-11] MEDS: ASPIRIN 81 MG PO SCH (08:19)
[2021-05-11] MEDS: MIDODRINE 5 MG TAB PO SCH ×2 (08:19→13:23)
[2021-05-11] MEDS: MAGNESIUM OXIDE 400 MG TAB PO SCH (08:19)
[2021-05-11] MEDS: SULFAMETHOX-TMP 800-160MG 1 EACH TAB PO SCH (08:19)
[2021-05-11] MEDS: CYANOCOBALAMIN 500 MCG TAB PO SCH (08:19)
[2021-05-11] MEDS: GABAPENTIN 300 MG CAP PO SCH (08:19)
[2021-05-11] MEDS: TAMSULOSIN 0.4 MG CAP.ER.24H PO SCH (08:19)
[2021-05-11] MEDS: PYRIDOXINE 50 MG TAB PO SCH (08:19)
[2021-05-11] MEDS: metFORMIN 500 MG TAB PO SCH (08:19)
[2021-05-11] MEDS: CLOPIDOGREL 75 MG TAB PO SCH (08:19)
[2021-05-11] MEDS: PANTOPRAZOLE 40 MG/10 ML VIAL IVP SCH (08:20)
[2021-05-11 12:03] LABS: Glucose,Whole Blood 133 mg/dL (75-99)
[2021-05-11] MEDS: FOLIC ACID 1 MG TAB PO SCH (13:20)
[2021-05-11] MEDS: THIAMINE 100 MG TAB PO SCH (13:20)
[2021-05-11] MEDS: MULTIVITAMINS, THERA 1 EACH TAB PO SCH (13:20)
--- NOTE | 2021-05-11 13:27 | P.DS ---
<Jeronimo, - Last Filed: 05/11/21 13:18> Providers Expected date of discharge: 05/11/21 Hospital Course: Patient is a 70-year-old male that presented to the ER for syncope, falls, and vertigo. Patient has a pertinent medical history of atrial fib, diabetes, GERD, hyperlipidemia, hypertension, memory impairment, osteoarthritis, chronic headache, chronic back pain, and history of multiple falls with fracture at home. Patient was hypotensive and bradycardic in the emergency room, EMS r eported that the patient might have took all of his daily medications at once. So instead of taking 1 pill 3 times a day he was taking 3 in the morning. Syncope believed to be caused by polypharmacy. Chest x-ray found low lung volumes and cardiomegaly with the bibasilar linear atelectasis redemonstrated. EKG showed bradycardia with a ventricular rate of 53bpm. discussed patient's ability to care for self at home with ER physician. Social work and psychiatry are consulted to determine patient's possible need for guardianship due to dangerous medical noncompliance. Cardiology was consulted for evaluation of bradycardia and hypotension. 05/06/2021 Patient is seen and examined at bedside. Patient is resting in chair in no acute distress. Reports severe back and hip pain. Denies chest pain, shortness of breath, headache, or dizziness at this time. Blood pressure and heart rate have improved since arriving at the ER. States he passed out at home and fell but does not remember what part of his body hit the floor. He is requesting morphine at this time, tramadol dose was increased for back and hip pain. Discussed case with porter sample case, patient already had home care nurse coming to his home and helping him with medications. Patient still took medications inappropriately. Awaiting psychiatry evaluation. hospitalist coverage 05/07/21-05/09/21 05/10/2021 Patient is seen and examined at bedside. Patient is sitting up in a chair, in no acute distress. Endorses severe left knee pain, unable to extend left knee, x-ray was ordered. Denies chest pain, headache, shortness of breath. Continues to have dizziness with position changes. Orthostatic blood pressures continue to be positive. Florinef and Midodrin were added to the treatment plan. Cardiology has signed off. We will continue to monitor blood pressures for 1 more day, works still pending. Chest x-ray today shows improvement of inspiration 05/11/2021 Patient seen and examined at bedside, patient stating he is unable to walk due to knee pain. Left knee X-ray showed no fracture or dislocation. Patient also reports difficulty starting urine stream, will continue Flomax. Physical therapy worked with patient, he was able to walk to the door, follow-up with orthopedics outpatient. Cardiology has cleared patient for discharge, Florinef and midodrine will be continued at discharge. Educated on getting up slowly to avoid orthostatic hypotension. Will follow-up closely in the office, because patient refuses to go to subacute rehab. Psychology and social work agreed that Patient is competent to make his own decisions. patient will be sent home with home care for assistance with medication compliance Assessment: Syncope with loss of consciousness secondary to polypharmacy Orthostatic hypotension Sinus Bradycardia Multiple falls at home Diabetes GERD Hypertension Hyperlipidemia History of osteoarthritis and chronic low back pain History of memory impairment Medical noncompliance Health Concerns: multiple comorbidities Pertinent Studies: Chest x-ray found improved inspiration with mild the bibasiliar linear scarring and/or atelectasis Patient Condition at Discharge: Fair Plan - Discharge Summary Discharge Rx Participant: No New Discharge Prescriptions: New Tamsulosin [Flomax] 0.4 mg PO DAILY 30 Days #30 cap guaiFENesin [Mucinex] 600 mg PO BID 10 Days #20 tab Midodrine HCl [ProAmatine] 10 mg PO AC-TID 30 Days #90 tablet Fludrocortisone [Florinef] 0.2 mg PO DAILY #30 tablet Continue Metoprolol Tartrate [Lopressor] 150 mg PO DAILY DULoxetine HCL [Cymbalta] 120 mg PO DAILY Baclofen [Lioresal] 20 mg PO BID PRN #6 tab PRN Reason: Muscle Spasm Folic Acid 1 mg PO DAILY@1200 #30 tab Thiamine [Vitamin B-1] 100 mg PO DAILY@1200 #30 tab Pyridoxine [Vitamin B-6] 50 mg PO DAILY #30 tab Cyanocobalamin [Vitamin B-12] 1,000 mcg PO DAILY #30 tab Calcium Carbonate [Tums] 1,500 mg PO DAILY lisinopriL [Zestril] 20 mg PO DAILY #30 tab Aspirin 81 mg PO DAILY #21 tab hydrALAZINE HCL 20 mg PO DAILY Pantoprazole Sodium [Protonix] 80 mg PO DAILY Sucralfate [Carafate] 3 gm PO DAILY Atorvastatin [Lipitor] 40 mg PO HS Triamcinolone 0.1% Ointment [Kenalog 0.1% Ointment] 1 applic TOPICAL BID Multivitamins, Thera [Multivitamin (formulary)] 1 tab PO DAILY@1200 amLODIPine [Norvasc] 5 mg PO DAILY #30 tab traMADol HCl [Ultram] 50 mg PO QID PRN 3 Days #12 tab PRN Reason: Pain Clopidogrel [Plavix] 75 mg PO DAILY #30 tab Gabapentin [Neurontin] 600 mg PO DAILY Magnesium Oxide [Mag-Ox] 1,200 mg PO DAILY Discontinued Nystatin 100,000 Unit/ml Susp [Mycostatin Oral Susp] 500,000 unit PO QID PRN PRN Reason: MOUTH INFECTION Discharge Medication List Metoprolol Tartrate [Lopressor] 150 mg PO DAILY 11/06/19 [History] Atorvastatin [Lipitor] 40 mg PO HS 06/18/20 [History] DULoxetine HCL [Cymbalta] 120 mg PO DAILY 06/18/20 [History] Baclofen [Lioresal] 20 mg PO BID PRN #6 tab 07/07/20 [Rx] Folic Acid 1 mg PO DAILY@1200 #30 tab 12/23/20 [Rx] Thiamine [Vitamin B-1] 100 mg PO DAILY@1200 #30 tab 12/23/20 [Rx] Multivitamins, Thera [Multivitamin (formulary)] 1 tab PO DAILY@1200 01/09/21 [History] Triamcinolone 0.1% Ointment [Kenalog 0.1% Ointment] 1 applic TOPICAL BID 01/09/21 [History] Pyridoxine [Vitamin B-6] 50 mg PO DAILY #30 tab 01/12/21 [Rx] Cyanocobalamin [Vitamin B-12] 1,000 mcg PO DAILY #30 tab 03/03/21 [Rx] amLODIPine [Norvasc] 5 mg PO DAILY #30 tab 04/08/21 [Rx] traMADol HCl [Ultram] 50 mg PO QID PRN 3 Days #12 tab 04/08/21 [Rx] Calcium Carbonate [Tums] 1,500 mg PO DAILY 04/21/21 [History] Aspirin 81 mg PO DAILY #21 tab 04/26/21 [Rx] Clopidogrel [Plavix] 75 mg PO DAILY #30 tab 04/26/21 [Rx] lisinopriL [Zestril] 20 mg PO DAILY #30 tab 04/26/21 [Rx] Gabapentin [Neurontin] 600 mg PO DAILY 05/05/21 [History] Magnesium Oxide [Mag-Ox] 1,200 mg PO DAILY 05/05/21 [History] Pantoprazole Sodium [Protonix] 80 mg PO DAILY 05/05/21 [History] Sucralfate [Carafate] 3 gm PO DAILY 05/05/21 [History] hydrALAZINE HCL 20 mg PO DAILY 05/05/21 [History] Fludrocortisone [Florinef] 0.2 mg PO DAILY #30 tablet 05/11/21 [Rx] Midodrine HCl [ProAmatine] 10 mg PO AC-TID 30 Days #90 tablet 05/11/21 [Rx] Tamsulosin [Flomax] 0.4 mg PO DAILY 30 Days #30 cap 05/11/21 [Rx] guaiFENesin [Mucinex] 600 mg PO BID 10 Days #20 tab 05/11/21 [Rx] Follow up Appointment(s)/Referral(s): Damon Rodriguez MD [Primary Care Provider] - 1-2 days Raymond Joseph MD [STAFF PHYSICIAN] - 1 Week [facility], [NON-STAFF] - 1-2 Days Emir Anderson DO [Doctor of Osteopathic Medicine] - 1 Week Patient Instructions/Handouts: Syncope (DC), Hypotension (DC) Discharge/Stand Alone Forms: Who Do I Call?, Help In The Home, Personal Refinery Operator Helper Discharge Disposition: HOME SELF-CARE <Damon Rodriguez - Last Filed: 05/19/21 19:42> Providers Date of admission: 05/09/21 11:25 Attending physician: Damon Rodriguez Consults: 05/06/21 11:44 Consult Physician Routine Consulting Provider: Yovany Mcdonald Consult Reason/Comments: cognitive eval Do you want consulting provider notified?: Yes Primary care physician: Damon Rodriguez I have personally seen and examined the patient, reviewed the documentation and agree with the assessment and plan as written. Number of minutes spent on the visit: Greater than 15.
== END 2021-05-11 16:09 | disposition home or self-care (01) ==
LOC: EC 13:49 → 1SOBS 16:53 → 6NMEDSUR 20:33 → INTOOBSV 05-09 11:25 → OBSVTOIN 05-09 11:25 → UNDODISIN 05-11 16:09
PROVIDERS: ADMIT Family Medicine; ATTEND Family Medicine
DX: I95.1 Orthostatic hypotension (principal); T50.911A Poisoning by multiple unspecified drugs, medicaments and biological substances, accidental (unintentional), initial encounter; R00.1 Bradycardia, unspecified; I48.0 Paroxysmal atrial fibrillation; E11.9 Type 2 diabetes mellitus without complications; K21.9 Gastro-esophageal reflux disease without esophagitis; E78.5 Hyperlipidemia, unspecified; M19.90 Unspecified osteoarthritis, unspecified site; R51.9 Headache, unspecified; G89.29 Other chronic pain; M54.50 Low back pain, unspecified; I95.9 Hypotension, unspecified; Z91.81 History of falling; R41.3 Other amnesia; J98.11 Atelectasis; I11.9 Hypertensive heart disease without heart failure; M25.559 Pain in unspecified hip; M25.562 Pain in left knee; R39.12 Poor urinary stream; I47.2 Ventricular tachycardia; N39.0 Urinary tract infection, site not specified; E66.9 Obesity, unspecified; Z68.41 Body mass index [BMI] 40.0-44.9, adult; I25.10 Atherosclerotic heart disease of native coronary artery without angina pectoris; Z20.822 Contact with and (suspected) exposure to COVID-19; Z91.14 Patient's other noncompliance with medication regimen; Z91.19 Patient's noncompliance with other medical treatment and regimen; R29.6 Repeated falls; Z87.01 Personal history of pneumonia (recurrent); Z86.14 Personal history of Methicillin resistant Staphylococcus aureus infection; Z85.3 Personal history of malignant neoplasm of breast; Z87.891 Personal history of nicotine dependence; Z88.0 Allergy status to penicillin; Z88.8 Allergy status to other drugs, medicaments and biological substances; Z88.1 Allergy status to other antibiotic agents; Z79.02 Long term (current) use of antithrombotics/antiplatelets; Z79.899 Other long term (current) drug therapy; Z79.82 Long term (current) use of aspirin; Y92.002 Bathroom of unspecified non-institutional (private) residence as the place of occurrence of the external cause; W18.30XA Fall on same level, unspecified, initial encounter; Z86.16 Personal history of COVID-19; Z71.9 Counseling, unspecified; Z90.13 Acquired absence of bilateral breasts and nipples; Z82.49 Family history of ischemic heart disease and other diseases of the circulatory system; Z87.81 Personal history of (healed) traumatic fracture
CPT/HCPCS: 96376 ×6; 96366 ×4; 96372 ×6; 96375 ×2; 96365; 99285; 36415; 93005; 97116; 97530 ×4; 97162; 97535 ×2; 97166; 80053 ×4; 82533 ×2; 82565; 83735 ×2; 84443; 84484; 85025 ×4; 85610; 85730; 81003; 81001 ×2; 80170 ×2; 87086 ×2; 87077; 87186; 87635; 73562; 71045; 71046; G0378 ×8; J0834; J1580 ×4; C9113 ×7; J1644 ×6

== ENCOUNTER 2021-05-28 07:51 | Observation (INO) | payer MEDICARE ==
[2021-05-28 07:59] LABS: Glucose,Whole Blood 107 mg/dL (75-99)
--- NOTE | 2021-05-28 08:06 | ED ---
General Adult HPI - General Chief complaint: Altered Mental Status Stated complaint: AMS Time Seen by Provider: 05/28/21 07:55 Source: patient, EMS, RN notes reviewed Mode of arrival: EMS Limitations: altered mental status - History of Present Illness Initial comments: Patient is a pleasant 70-year-old male presenting to the emergency Department with concern for altered mental status. Patient is a poor historian. Unclear last known well. Patient reportedly lives alone and daughter came to check him this morning and patient was altered. Patient does have chronic vertigo and frequent falls. Patient complains of pain everywhere throughout his body secondary to chronic falls. No isolated area of pain. Further history is limited. - Related Data Home Medications Medication Instructions Recorded Confirmed Metoprolol Tartrate [Lopressor] 150 mg PO DAILY 11/06/19 05/05/21 Atorvastatin [Lipitor] 40 mg PO HS 06/18/20 05/05/21 DULoxetine HCL [Cymbalta] 120 mg PO DAILY 06/18/20 05/05/21 Multivitamins, Thera [Multivitamin 1 tab PO DAILY@1200 01/09/21 05/05/21 (formulary)] Triamcinolone 0.1% Ointment 1 applic TOPICAL BID 01/09/21 05/05/21 [Kenalog 0.1% Ointment] Calcium Carbonate [Tums] 1,500 mg PO DAILY 04/21/21 05/05/21 Gabapentin [Neurontin] 600 mg PO DAILY 05/05/21 05/05/21 Magnesium Oxide [Mag-Ox] 1,200 mg PO DAILY 05/05/21 05/05/21 Pantoprazole Sodium [Protonix] 80 mg PO DAILY 05/05/21 05/05/21 Sucralfate [Carafate] 3 gm PO DAILY 05/05/21 05/05/21 hydrALAZINE HCL 20 mg PO DAILY 05/05/21 05/05/21 Previous Rx's Medication Instructions Recorded Baclofen [Lioresal] 20 mg PO BID PRN #6 tab 07/07/20 Folic Acid 1 mg PO DAILY@1200 #30 tab 12/23/20 Thiamine [Vitamin B-1] 100 mg PO DAILY@1200 #30 tab 12/23/20 Pyridoxine [Vitamin B-6] 50 mg PO DAILY #30 tab 01/12/21 Cyanocobalamin [Vitamin B-12] 1,000 mcg PO DAILY #30 tab 03/03/21 amLODIPine [Norvasc] 5 mg PO DAILY #30 tab 04/08/21 traMADol HCl [Ultram] 50 mg PO QID PRN 3 Days #12 tab 04/08/21 Aspirin 81 mg PO DAILY #21 tab 04/26/21 Clopidogrel [Plavix] 75 mg PO DAILY #30 tab 04/26/21 lisinopriL [Zestril] 20 mg PO DAILY #30 tab 04/26/21 Fludrocortisone [Florinef] 0.2 mg PO DAILY #30 tablet 05/11/21 Midodrine HCl [ProAmatine] 10 mg PO AC-TID 30 Days #90 tablet 05/11/21 Tamsulosin [Flomax] 0.4 mg PO DAILY 30 Days #30 cap 05/11/21 guaiFENesin [Mucinex] 600 mg PO BID 10 Days #20 tab 05/11/21 Allergies Allergy/AdvReac Type Severity Reaction Status Date / Time cephalexin monohydrate Allergy Anaphylaxis Verified 05/28/21 07:59 [From Keflex] Cephalosporins Allergy Anaphylaxis Verified 05/28/21 07:59 Penicillins Allergy Anaphylaxis Verified 05/28/21 07:59 Review of Systems ROS Statement: Those systems with pertinent positive or pertinent negative responses have been documented in the HPI. ROS Other: All systems not noted in ROS Statement are negative. Constitutional: Denies: fever Eyes: Denies: eye pain ENT: Denies: ear pain Respiratory: Denies: cough Cardiovascular: Denies: chest pain Endocrine: Denies: fatigue Gastrointestinal: Denies: abdominal pain Genitourinary: Denies: dysuria Musculoskeletal: Reports: as per HPI Skin: Denies: rash Neurological: Reports: as per HPI. Denies: headache Past Medical History Past Medical History: Atrial Fibrillation, Diabetes Mellitus, GERD/Reflux, Hyperlipidemia, Hypertension, Osteoarthritis (OA), Pneumonia Additional Past Medical History / Comment(s): FELL 07/09/19 FX LT RADIUS, FREQUENT FALLS-REASON UNKNOWN. 03-10-16 FELL/FX RT FIBULA, VERTIGO , chronic headaches, BREAST CANCER History of Any Multi-Drug Resistant Organisms: CRE, MRSA Date of last positivie culture/infection: MRSA-03/11 MDRO Source:: Source unknown-MRSA Past Surgical History: Back Surgery, Breast Surgery, Orthopedic Surgery Additional Past Surgical History / Comment(s): Bilateral mastectomy with right sided lymp node removal due to cancer, R knee cap removed, Back surgery for herniated disc., Brain stem surgery for decompression-for dizziness, right ankle ORIF, bilateral wrist fractures SX Past Anesthesia/Blood Transfusion Reactions: No Reported Reaction Past Psychological History: No Psychological Hx Reported Smoking Status: Former smoker Past Alcohol Use History: None Reported Past Drug Use History: None Reported - Past Family History Father History Unknown: Yes Family Medical History: Congestive Heart Failure (CHF) Additional Family Medical History / Comment(s): at 68. Mother History Unknown: Yes Family Medical History: Hypertension Additional Family Medical History / Comment(s): Pulmonary hypertension. at 78. General Exam Limitations: altered mental status General appearance: alert, in no apparent distress, other (Patient has difficulty following directions) Head exam: Present: normocephalic Eye exam: Present: normal appearance, PERRL, EOMI ENT exam: Present: other (Nasal abrasion) Neck exam: Present: normal inspection. Absent: tenderness, meningismus Respiratory exam: Present: normal lung sounds bilaterally Cardiovascular Exam: Present: regular rate, irregular rhythm GI/Abdominal exam: Present: soft. Absent: tenderness Extremities exam: Present: normal inspection, full ROM. Absent: tenderness Back exam: Present: normal inspection Neurological exam: Present: alert, CN II-XII intact. Absent: motor sensory deficit Expanded Neurological exam: Present: other (Patient rambles on about his chronic pain and does not answer questions appropriately.) Patient oriented to: Present: person. Absent: place, time Speech: Present: fluid speech Motor strength exam: RUE: 5, LUE: 5, RLE: 5, LLE: 5 Eye Response: (4) open spontaneously Motor Response: (6) obeys commands Verbal Response: (4) confused conversation Psychiatric exam: Present: normal affect, normal mood Skin exam: Present: normal color Course Vital Signs 05/28/21 07:53 Temperature 98.1 F Pulse Rate 60 Respiratory 18 Rate Blood Pressure 128/79 O2 Sat by Pulse 96 Oximetry EKG Findings - EKG Comments: EKG Findings:: A. fib rate 61. QRS 94. QT 06/24/1969. QTc 419. Normal axis. Normal QRS. No acute ST change. Artifact is present. Medical Decision Making - Medical Decision Making Patient reevaluated and unchanged. Case discussed with Dr. Aguilar, who will admit for observation - Lab Data Result diagrams: 05/28/21 08:11 05/28/21 08:09 Lab Results 05/28/21 05/28/21 05/28/21 Range/Units 07:58 08:09 08:09 WBC (3.8-10.6) k/uL RBC (4.30-5.90) m/uL Hgb (13.0-17.5) gm/dL Hct (39.0-53.0) % MCV (80.0-100.0) fL MCH (25.0-35.0) pg MCHC (31.0-37.0) g/dL RDW (11.5-15.5) % Plt Count (150-450) k/uL MPV Neutrophils % % Lymphocytes % % Monocytes % % Eosinophils % % Basophils % % Neutrophils # (1.3-7.7) k/uL Lymphocytes # (1.0-4.8) k/uL Monocytes # (0-1.0) k/uL Eosinophils # (0-0.7) k/uL Basophils # (0-0.2) k/uL Hypochromasia PT (9.0-12.0) sec INR (<1.2) APTT (22.0-30.0) sec Sodium 142 (137-145) mmol/L Potassium 4.4 (3.5-5.1) mmol/L Chloride 107 (98-107) mmol/L Carbon Dioxide 27 (22-30) mmol/L Anion Gap 8 mmol/L BUN 26 H (9-20) mg/dL Creatinine 1.21 (0.66-1.25) mg/dL Est GFR (CKD-EPI)AfAm 70 (>60 ml/min/1.73 sqM) Est GFR (CKD-EPI)NonAf 61 (>60 ml/min/1.73 sqM) Glucose 119 H (74-99) mg/dL POC Glucose (mg/dL) 107 H (75-99) mg/dL POC Glu Deli Manager ID Myriam Chairez Calcium 9.2 (8.4-10.2) mg/dL Total Bilirubin 0.6 (0.2-1.3) mg/dL AST 25 (17-59) U/L ALT 18 (4-49) U/L Alkaline Phosphatase 85 (38-126) U/L Troponin I (0.000-0.034) ng/mL NT-Pro-B Natriuret Pep pg/mL Total Protein 7.0 (6.3-8.2) g/dL Albumin 4.0 (3.5-5.0) g/dL Urine Color Yellow Urine Appearance Clear (Clear) Urine pH 6.0 (5.0-8.0) Ur Specific Hallock 1.011 (1.001-1.035) Urine Protein Negative (Negative) Urine Glucose (UA) Negative (Negative) Urine Ketones Negative (Negative) Urine Blood Negative (Negative) Urine Nitrite Negative (Negative) Urine Bilirubin Negative (Negative) Urine Urobilinogen <2.0 (<2.0) mg/dL Ur Leukocyte Esterase Negative (Negative) Urine Opiates Screen Not Detected (NotDetected) Ur Oxycodone Screen Not Detected (NotDetected) Urine Methadone Screen Not Detected (NotDetected) Ur Propoxyphene Screen Not Detected (NotDetected) Ur Barbiturates Screen Detected H (NotDetected) U Tricyclic Antidepress Not Detected (NotDetected) Ur Phencyclidine Scrn Not Detected (NotDetected) Ur Amphetamines Screen Not Detected (NotDetected) U Methamphetamines Scrn Not Detected (NotDetected) U Benzodiazepines Scrn Not Detected (NotDetected) Urine Cocaine Screen Not Detected (NotDetected) U Marijuana (THC) Screen Not Detected (NotDetected) Serum Alcohol <10 mg/dL Coronavirus (PCR) (Not Detectd) 05/28/21 05/28/21 05/28/21 Range/Units 08:09 08:11 08:11 WBC 11.9 H (3.8-10.6) k/uL RBC 3.51 L (4.30-5.90) m/uL Hgb 11.1 L (13.0-17.5) gm/dL Hct 34.6 L (39.0-53.0) % MCV 98.7 (80.0-100.0) fL MCH 31.7 (25.0-35.0) pg MCHC 32.2 (31.0-37.0) g/dL RDW 14.6 (11.5-15.5) % Plt Count 196 (150-450) k/uL MPV 8.3 Neutrophils % 83 % Lymphocytes % 10 % Monocytes % 6 % Eosinophils % 1 % Basophils % 0 % Neutrophils # 9.8 H (1.3-7.7) k/uL Lymphocytes # 1.2 (1.0-4.8) k/uL Monocytes # 0.8 (0-1.0) k/uL Eosinophils # 0.1 (0-0.7) k/uL Basophils # 0.0 (0-0.2) k/uL Hypochromasia Slight PT (9.0-12.0) sec INR (<1.2) APTT (22.0-30.0) sec Sodium (137-145) mmol/L Potassium (3.5-5.1) mmol/L Chloride (98-107) mmol/L Carbon Dioxide (22-30) mmol/L Anion Gap mmol/L BUN (9-20) mg/dL Creatinine (0.66-1.25) mg/dL Est GFR (CKD-EPI)AfAm (>60 ml/min/1.73 sqM) Est GFR (CKD-EPI)NonAf (>60 ml/min/1.73 sqM) Glucose (74-99) mg/dL POC Glucose (mg/dL) (75-99) mg/dL POC Glu Deli Manager ID Calcium (8.4-10.2) mg/dL Total Bilirubin (0.2-1.3) mg/dL AST (17-59) U/L ALT (4-49) U/L Alkaline Phosphatase (38-126) U/L Troponin I <0.012 (0.000-0.034) ng/mL NT-Pro-B Natriuret Pep 1980 pg/mL Total Protein (6.3-8.2) g/dL Albumin (3.5-5.0) g/dL Urine Color Urine Appearance (Clear) Urine pH (5.0-8.0) Ur Specific Hallock (1.001-1.035) Urine Protein (Negative) Urine Glucose (UA) (Negative) Urine Ketones (Negative) Urine Blood (Negative) Urine Nitrite (Negative) Urine Bilirubin (Negative) Urine Urobilinogen (<2.0) mg/dL Ur Leukocyte Esterase (Negative) Urine Opiates Screen (NotDetected) Ur Oxycodone Screen (NotDetected) Urine Methadone Screen (NotDetected) Ur Propoxyphene Screen (NotDetected) Ur Barbiturates Screen (NotDetected) U Tricyclic Antidepress (NotDetected) Ur Phencyclidine Scrn (NotDetected) Ur Amphetamines Screen (NotDetected) U Methamphetamines Scrn (NotDetected) U Benzodiazepines Scrn (NotDetected) Urine Cocaine Screen (NotDetected) U Marijuana (THC) Screen (NotDetected) Serum Alcohol mg/dL Coronavirus (PCR) (Not Detectd) 05/28/21 05/28/21 Range/Units 09:05 09:18 WBC (3.8-10.6) k/uL RBC (4.30-5.90) m/uL Hgb (13.0-17.5) gm/dL Hct (39.0-53.0) % MCV (80.0-100.0) fL MCH (25.0-35.0) pg MCHC (31.0-37.0) g/dL RDW (11.5-15.5) % Plt Count (150-450) k/uL MPV Neutrophils % % Lymphocytes % % Monocytes % % Eosinophils % % Basophils % % Neutrophils # (1.3-7.7) k/uL Lymphocytes # (1.0-4.8) k/uL Monocytes # (0-1.0) k/uL Eosinophils # (0-0.7) k/uL Basophils # (0-0.2) k/uL Hypochromasia PT 10.4 (9.0-12.0) sec INR 0.9 (<1.2) APTT 26.9 (22.0-30.0) sec Sodium (137-145) mmol/L Potassium (3.5-5.1) mmol/L Chloride (98-107) mmol/L Carbon Dioxide (22-30) mmol/L Anion Gap mmol/L BUN (9-20) mg/dL Creatinine (0.66-1.25) mg/dL Est GFR (CKD-EPI)AfAm (>60 ml/min/1.73 sqM) Est GFR (CKD-EPI)NonAf (>60 ml/min/1.73 sqM) Glucose (74-99) mg/dL POC Glucose (mg/dL) (75-99) mg/dL POC Glu Deli Manager ID Calcium (8.4-10.2) mg/dL Total Bilirubin (0.2-1.3) mg/dL AST (17-59) U/L ALT (4-49) U/L Alkaline Phosphatase (38-126) U/L Troponin I (0.000-0.034) ng/mL NT-Pro-B Natriuret Pep pg/mL Total Protein (6.3-8.2) g/dL Albumin (3.5-5.0) g/dL Urine Color Urine Appearance (Clear) Urine pH (5.0-8.0) Ur Specific Hallock (1.001-1.035) Urine Protein (Negative) Urine Glucose (UA) (Negative) Urine Ketones (Negative) Urine Blood (Negative) Urine Nitrite (Negative) Urine Bilirubin (Negative) Urine Urobilinogen (<2.0) mg/dL Ur Leukocyte Esterase (Negative) Urine Opiates Screen (NotDetected) Ur Oxycodone Screen (NotDetected) Urine Methadone Screen (NotDetected) Ur Propoxyphene Screen (NotDetected) Ur Barbiturates Screen (NotDetected) U Tricyclic Antidepress (NotDetected) Ur Phencyclidine Scrn (NotDetected) Ur Amphetamines Screen (NotDetected) U Methamphetamines Scrn (NotDetected) U Benzodiazepines Scrn (NotDetected) Urine Cocaine Screen (NotDetected) U Marijuana (THC) Screen (NotDetected) Serum Alcohol mg/dL Coronavirus (PCR) Not Detected (Not Detectd) - Radiology Data Radiology results: report reviewed (CT brain shows no acute process. Atrophy and chronic small vessel disease. CT cervical spine shows no fracture or subluxation.), image reviewed (Chest x-ray shows some alliance party megaly with pulmonary venous congestion.) Disposition Clinical Impression: Altered mental status Disposition: ADMITTED IP TO THIS HOSP Is patient prescribed a controlled substance at d/c from ED?: No Referrals: None,Stated [Primary Care Provider] - 1-2 days Decision Time: 09:47
[2021-05-28 08:23] LABS: Basophils % (A) 0 %; Eosinophils # (A) 0.1 k/uL (0-0.7); Eosinophils % (A) 1 %; HCT 34.6 % (39.0-53.0); HGB 11.1 gm/dL (13.0-17.5); Hypochromasia Slight; Lymphocytes # (A) 1.2 k/uL (1.0-4.8); Lymphocytes % (A) 10 %; MCH 31.7 pg (25.0-35.0); MCHC 32.2 g/dL (31.0-37.0); MCV 98.7 fL (80.0-100.0); Mean Platelet Volume 8.3; Monocytes # (A) 0.8 k/uL (0-1.0); Monocytes % (A) 6 %; Neutrophils # (A) 9.8 k/uL (1.3-7.7); Neutrophils % (A) 83 %; Platelet Count 196 k/uL (150-450); RBC 3.51 m/uL (4.30-5.90); RDW 14.6 % (11.5-15.5); WBC 11.9 k/uL (3.8-10.6)
[2021-05-28 08:40] LABS: ALT 18 U/L (4-49); AST 25 U/L (17-59); African American GFR (CKD) 70 (>60 ml/min/1.73 sqM); Alcohol <10 mg/dL; Alkaline Phosphatase 85 U/L (38-126); Anion Gap 8 mmol/L; Blood Urea Nitrogen 26 mg/dL (9-20); Calcium 9.2 mg/dL (8.4-10.2); Carbon Dioxide 27 mmol/L (22-30); Chloride 107 mmol/L (98-107); Glucose 119 mg/dL (74-99); Non-African American GFR(CKD) 61 (>60 ml/min/1.73 sqM); Potassium 4.4 mmol/L (3.5-5.1); Sodium 142 mmol/L (137-145); Total Bilirubin 0.6 mg/dL (0.2-1.3)
[2021-05-28 08:44] LABS: Appearance,Urine Clear (Clear); Bilirubin,Urine Negative (Negative); Blood,Urine Negative (Negative); Color,Urine Yellow; Glucose,Urine (UA) Negative (Negative); Ketones,Urine Negative (Negative); Leukocyte Esterase,Urine Negative (Negative); Nitrite,Urine Negative (Negative); Protein,Urine Negative (Negative); Specific Gravity,Urine 1.011 (1.001-1.035); Urobilinogen,Urine <2.0 mg/dL (<2.0)
--- NOTE | 2021-05-28 08:50 | XR ---
EXAMINATION TYPE: XR chest 2V DATE OF EXAM: 05/28/2021 COMPARISON: 05/10/2021 HISTORY: Shortness of breath TECHNIQUE: Frontal and lateral views of the chest are obtained. FINDINGS: Scattered senescent parenchymal changes noted. Hyperinflation compatible with COPD. There is cardiomegaly with pulmonary venous congestion with scattered infiltrates suggestive of conge stive failure. Correlate clinically. Mediastinal structures are stable and grossly unremarkable. No evidence for hilar prominence. Degenerative changes dorsal spine. IMPRESSION: 1. There is cardiomegaly with pulmonary venous congestion with scattered infiltrates suggestive of co ngestive failure. Correlate clinically.
[2021-05-28 08:57] LABS: Amphetamine Screen,Urine Not Detected (NotDetected); Barbiturate Screen,Urine Detected (NotDetected); Benzodiazepines Screen,Urine Not Detected (NotDetected); Cocaine Screen,Urine Not Detected (NotDetected); Methadone Screen, Urine Not Detected (NotDetected); Opiate Screen,Urine Not Detected (NotDetected); Oxycodone Screen, Urine Not Detected (NotDetected); Phencyclidine Screen,Urine Not Detected (NotDetected); Tricyclic Antidepressant,Urine Not Detected (NotDetected); Urn Cannabinoid Scrn Not Detected (NotDetected)
--- NOTE | 2021-05-28 09:18 | CT ---
EXAMINATION TYPE: CT brain aubrey mcelroy con DATE OF EXAM: 05/28/2021 COMPARISON: 04/22/2021 HISTORY: Altered mental status CT DLP: 3678.[address] of the brain was performed. The ventricles, basal cisterns and sulci overlying the cerebral convexities demonstrate mild enlargem ent. There is no evidence for intracranial hemorrhage or sulcal effacement. There is decreased attenuatio n about the periventricular white matter and deep white matter of both cerebral hemispheres, compatib le with chronic small vessel ischemia. No mass effects are seen. If symptoms persist consider MRI. Osseous calvarium is intact. IMPRESSION: 1. Age related atrophic and chronic small vessel ischemic change without acute intracranial process seen at this time. CT Cervical Spine: Unenhanced CT of the cervical spine was performed with bone and soft tissue window settings submitted . Coronal and sagittal reconstruction is obtained. There is normal alignment and prevertebral soft tissues. No evidence for acute cervical fracture . Scattered degenerative disc disease and spondylosis. Biapical scarring. IMPRESSION: 1. No evidence for acute fracture or subluxation of the cervical spine.
[2021-05-28 09:36] LABS: INR 0.9 (<1.2); Partial Thromboplastin Time 26.9 sec (22.0-30.0); Prothrombin Time 10.4 sec (9.0-12.0)
[2021-05-28] MEDS ORDERED: NALOXONE 0.4 MG/ML 1 ML VIAL IV PRN (10:46)
--- NOTE | 2021-05-28 11:48 | P.PN ---
Progress Note - Text Progress Note Date: 05/28/[address] Rodriguez for his primary. He is placed in observation, case discussed with Dr. Golden who has graciously accepted admission.
[2021-05-28 16:26] LABS: Glucose,Whole Blood 165 mg/dL (75-99)
[2021-05-28] MEDS: INSULIN ASPART (NovoLOG) 100 UNIT/ML VIAL SQ SCH ×2 (16:53→20:33)
--- NOTE | 2021-05-28 17:03 | P.HPIM ---
History of Present Illness H&P Date: 05/28/21 Chief Complaint: Altered mental status 70-year-old male presenting to the emergency Department with concern for altered mental status. Patient is a poor historian. Unclear last known well. Patient reportedly lives alone and daughter came to check him this morning and patient was altered. Patient does have chronic vertigo and frequent falls. Patient complains of pain everywhere throughout his body secondary to chronic falls. No isolated area of pain. Further history is limited. EKG Findings:: A. fib rate 61. QRS 94. QT 06/24/1969. QTc 419. Normal axis. Normal QRS. No acute ST change. Blood work reveals to receive 7.9, hemoglobin 11.1 and platelet count of 186, sodium 142, potassium 4.4, BUN/creatinine of 26/1.2 and glucose of 119 Urine drug screen is positive for barbiturates CT brain shows no acute process. Atrophy and chronic small vessel disease. CT cervical spine shows no fracture or subluxation. Chest x-ray shows some cardiomegaly with pulmonary venous congestion.) Review of Systems REVIEW OF SYSTEMS: CONSTITUTIONAL: No fever, no malaise, no fatigue. HEENT: No recent visual problems or hearing problems. Denied any sore throat. CARDIOVASCULAR: No chest pain, orthopnea, PND, no palpitations, no syncope. PULMONARY: No shortness of breath, no cough, no hemoptysis. GASTROINTESTINAL: No diarrhea, no nausea, no vomiting, no abdominal pain. NEUROLOGICAL: No headaches, no weakness, no numbness. HEMATOLOGICAL: Denies any bleeding or petechiae. GENITOURINARY: Denies any burning micturition, frequency, or urgency. MUSCULOSKELETAL/RHEUMATOLOGICAL: Denies any joint pain, swelling, or any muscle pain. ENDOCRINE: Denies any polyuria or polydipsia. The rest of the 14-point review of systems is negative. Past Medical History Past Medical History: Atrial Fibrillation, Diabetes Mellitus, GERD/Reflux, Hyper lipidemia, Hypertension, Osteoarthritis (OA), Pneumonia Additional Past Medical History / Comment(s): FELL 07/09/19 FX LT RADIUS, FREQUENT FALLS-REASON UNKNOWN. 03-10-16 FELL/FX RT FIBULA, VERTIGO , chronic headaches, BREAST CANCER History of Any Multi-Drug Resistant Organisms: CRE, MRSA Date of last positivie culture/infection: MRSA-12/17 MDRO Source:: Source unknown-MRSA Past Surgical History: Back Surgery, Breast Surgery, Orthopedic Surgery Additional Past Surgical History / Comment(s): Bilateral mastectomy with right sided lymp node removal due to cancer, R knee cap removed, Back surgery for herniated disc., Brain stem surgery for decompression-for dizziness, right ankle ORIF, bilateral wrist fractures SX Past Anesthesia/Blood Transfusion Reactions: No Reported Reaction Past Psychological History: No Psychological Hx Reported Smoking Status: Former smoker Past Alcohol Use History: None Reported Past Drug Use History: None Reported - Past Family History Father History Unknown: Yes Family Medical History: Congestive Heart Failure (CHF) Additional Family Medical History / Comment(s): at 68. Mother History Unknown: Yes Family Medical History: Hypertension Additional Family Medical History / Comment(s): Pulmonary hypertension. at 78. Medications and Allergies Home Medications Medication Instructions Recorded Confirmed Type Metoprolol Tartrate [Lopressor] 150 mg PO DAILY 11/06/19 05/28/21 History Atorvastatin [Lipitor] 40 mg PO HS 06/18/20 05/28/21 History DULoxetine HCL [Cymbalta] 120 mg PO DAILY 06/18/20 05/28/21 History Baclofen [Lioresal] 20 mg PO BID PRN #6 tab 07/07/20 05/28/21 Rx Folic Acid 1 mg PO DAILY@1200 #30 tab 12/23/20 05/28/21 Rx Thiamine [Vitamin B-1] 100 mg PO DAILY@1200 #30 tab 12/23/20 05/28/21 Rx Multivitamins, Thera [Multivitamin 1 tab PO DAILY@1200 01/09/21 05/28/21 History (formulary)] Triamcinolone 0.1% Ointment 1 applic TOPICAL BID 01/09/21 05/28/21 History [Kenalog 0.1% Ointment] Pyridoxine [Vitamin B-6] 50 mg PO DAILY #30 tab 01/12/21 05/28/21 Rx Cyanocobalamin [Vitamin B-12] 1,000 mcg PO DAILY #30 tab 03/03/21 05/28/21 Rx amLODIPine [Norvasc] 5 mg PO DAILY #30 tab 04/08/21 05/28/21 Rx traMADol HCl [Ultram] 50 mg PO QID PRN 3 Days #12 tab 04/08/21 05/28/21 Rx Calcium Carbonate [Tums] 1,500 mg PO DAILY 04/21/21 05/28/21 History Clopidogrel [Plavix] 75 mg PO DAILY #30 tab 04/26/21 05/28/21 Rx lisinopriL [Zestril] 20 mg PO DAILY #30 tab 04/26/21 05/28/21 Rx Gabapentin [Neurontin] 600 mg PO DAILY 05/05/21 05/28/21 History Magnesium Oxide [Mag-Ox] 1,200 mg PO DAILY 05/05/21 05/28/21 History Pantoprazole Sodium [Protonix] 80 mg PO DAILY 05/05/21 05/28/21 History Sucralfate [Carafate] 3 gm PO DAILY 05/05/21 05/28/21 History hydrALAZINE HCL 20 mg PO DAILY 05/05/21 05/28/21 History Fludrocortisone [Florinef] 0.2 mg PO DAILY #30 tablet 05/11/21 05/28/21 Rx Tamsulosin [Flomax] 0.4 mg PO DAILY 30 Days #30 cap 05/11/21 05/28/21 Rx guaiFENesin [Mucinex] 600 mg PO BID 10 Days #20 tab 05/11/21 05/28/21 Rx Aspirin EC [Ecotrin Low Dose] 81 mg PO DAILY 05/28/21 05/28/21 History Allergies Allergy/AdvReac Type Severity Reaction Status Date / Time cephalexin monohydrate Allergy Anaphylaxis Verified 05/28/21 11:31 [From Keflex] Cephalosporins Allergy Anaphylaxis Verified 05/28/21 11:31 Penicillins Allergy Anaphylaxis Verified 05/28/21 11:31 Physical Exam Vitals: Vital Signs Temp Pulse Resp BP Pulse Ox 05/28/21 12:30 64 20 124/78 97 05/28/21 10:48 48 L 18 116/70 97 05/28/21 09:00 52 L 18 116/70 97 05/28/21 07:53 98.1 F 60 18 128/79 96 Intake and Output 05/27/21 05/28/21 05/28/21 22:59 06:59 14:59 Other: Weight 148.325 kg PHYSICAL EXAMINATION: GENERAL: The patient is alert and oriented x3, not in any acute distress. Well developed, well nourished. HEENT: Pupils are round and equally reacting to light. EOMI. No scleral icterus. No conjunctival pallor. Normocephalic, atraumatic. No pharyngeal erythema. No thyromegaly. CARDIOVASCULAR: S1 and S2 present. No murmurs, rubs, or gallops. PULMONARY: Chest is clear to auscultation, no wheezing or crackles. ABDOMEN: Soft, nontender, nondistended, normoactive bowel sounds. No palpable or ganomegaly. MUSCULOSKELETAL: No joint swelling or deformity. EXTREMITIES: No cyanosis, clubbing, or pedal edema. NEUROLOGICAL: Gross neurological examination did not reveal any focal deficits. SKIN: No rashes. Results CBC & Chem 7: 05/28/21 08:11 05/28/21 08:09 Labs: Abnormal Lab Results - Last 24 Hours (Table) 05/28/21 05/28/21 05/28/21 Range/Units 07:58 08:09 08:09 WBC (3.8-10.6) k/uL RBC (4.30-5.90) m/uL Hgb (13.0-17.5) gm/dL Hct (39.0-53.0) % Neutrophils # (1.3-7.7) k/uL BUN 26 H (9-20) mg/dL Glucose 119 H (74-99) mg/dL POC Glucose (mg/dL) 107 H (75-99) mg/dL Ur Barbiturates Screen Detected H (NotDetected) 05/28/21 Range/Units 08:11 WBC 11.9 H (3.8-10.6) k/uL RBC 3.51 L (4.30-5.90) m/uL Hgb 11.1 L (13.0-17.5) gm/dL Hct 34.6 L (39.0-53.0) % Neutrophils # 9.8 H (1.3-7.7) k/uL BUN (9-20) mg/dL Glucose (74-99) mg/dL POC Glucose (mg/dL) (75-99) mg/dL Ur Barbiturates Screen (NotDetected) Assessment and Plan Assessment: 1. Altered mental status; etiology remains unclear; questionable TIA versus CVA; CT of the head reveals atrophic and chronic small vessel ischemic changes without any acute intracranial process - Patient remains on neuro checks; has been placed on aspirin and Lipitor - Neurology is consulted 2. Mild acute renal injury; slowly fluid hydration in form of normal saline at rate of 75 mL an hour; we will monitor strict ELISABETH's, daily weights, renal function and electrolytes; avoid nephrotoxins 3. Hypertension; metoprolol 50 mg daily; hydralazine 20 mg daily 4. Hyperlipidemia; Lipitor 40 mg by mouth daily at bedtime 5. History of diabetes mellitus; currently not on any treatment; we will monitor Accu-Cheks every before meals and at bedtime with insulin sliding scale DVT prophylaxis; SCDs/subcu Lovenox CODE STATUS; full code
[2021-05-28] MEDS ORDERED: hydrOXYzine HCL 25 MG TAB PO PRN (17:19)
[2021-05-28] MEDS: ACETAMINOPHEN TAB 500 MG TAB PO PRN ×2 (17:24→23:13)
[2021-05-28] MEDS: traMADol 50 MG TAB PO PRN (19:29)
[2021-05-28 20:22] LABS: Glucose,Whole Blood 128 mg/dL (75-99)
[2021-05-28] MEDS: ATORVASTATIN 40 MG TAB PO SCH (20:36)
[2021-05-29] MEDS: ACETAMINOPHEN TAB 500 MG TAB PO PRN ×3 (06:02→16:57)
[2021-05-29] MEDS: traMADol 50 MG TAB PO PRN ×3 (06:03→16:57)
[2021-05-29 06:38] LABS: Glucose,Whole Blood 119 mg/dL (75-99)
[2021-05-29] MEDS: INSULIN ASPART (NovoLOG) 100 UNIT/ML VIAL SQ SCH ×4 (06:54→20:56)
[2021-05-29] MEDS: CYANOCOBALAMIN 500 MCG TAB PO SCH (08:02)
[2021-05-29] MEDS: MAGNESIUM OXIDE 400 MG TAB PO SCH ×3 (08:02→20:56)
[2021-05-29] MEDS: ASPIRIN 81 MG PO SCH (08:02)
[2021-05-29] MEDS: FLUDROCORTISONE 0.1 MG TAB PO SCH (08:02)
[2021-05-29] MEDS: SUCRALFATE 1 GM TAB PO SCH ×3 (08:02→16:58)
[2021-05-29] MEDS: CLOPIDOGREL 75 MG TAB PO SCH (08:02)
[2021-05-29] MEDS: PYRIDOXINE 50 MG TAB PO SCH (08:02)
[2021-05-29 08:43] LABS: Basophils # (A) 0.02 X 10*3/uL (0.00-0.10); Basophils % (A) 0.2 %; Eosinophils # (A) 0.14 X 10*3/uL (0.04-0.35); Eosinophils % (A) 1.5 %; HCT 31.2 % (39.6-50.0); HGB 9.5 g/dL (13.0-17.0); Immature Grans, Automated 0.4 %; Lymphocytes # (A) 1.53 X 10*3/uL (0.90-5.00); Lymphocytes % (A) 16.3 %; MCH 30.4 pg (27.0-32.0); MCHC 30.4 g/dL (32.0-37.0); Mean Platelet Volume 11.5 fL (9.5-12.2); Monocytes # (A) 0.93 X 10*3/uL (0.20-1.00); Monocytes % (A) 9.9 %; NRBC Per 100 WBC 0 /100 WBCS (0.0-0.0); Neutrophils % (A) 71.7 %; Platelet Count 179 X 10*3/uL (140-440); RBC 3.12 X 10*6/uL (4.40-5.60); RDW 15.7 % (11.5-14.5); WBC 9.36 X 10*3/uL (4.50-10.00)
[2021-05-29 08:54] LABS: African American GFR (CKD) 78.4 (60.0-200.0); Anion Gap 13.5 mmol/L (10.00-18.00); BUN/Creat Ratio 18.82 Ratio (12.00-20.00); Blood Urea Nitrogen 20.7 mg/dL (9.0-27.0); Calcium 8.8 mg/dL (8.7-10.3); Carbon Dioxide 23.5 mmol/L (20.0-27.5); Non-African American GFR(CKD) 67.7 (60.0-200.0)
[2021-05-29 11:11] LABS: Glucose,Whole Blood 134 mg/dL (75-99)
--- NOTE | 2021-05-29 11:13 | P.CNNES ---
History of Present Illness Consult date: 05/29/21 Requesting physician: Josué Staton Reason for Consult: altered mental status History of Present Illness: This is a 70-year-old gentleman with medical history of benign positional vertigo s/p decompression right occipital, chronic recurrent vertigo, diabetes, paroxysmal atrial fibrillation not on anticoagulation, recurrent falls, hypertension, right hip pain who presented to the emergency department on 05/28/2021 for altered mental status. Some of the history is obtained from medical records. Patient could not provide history for me. Patient is known to our neurology and present to the hospital multiple times. He presented this time since his daughter found him altered and unknown last normal. He continues to be on ASA 81mg daily, Plavix 75mg daily and Lipitor 40mg qhs. Per nurse he is confused but no seizure-like activity noted. Patient stated he has chronic pain throughout. Of note as mentioned above he is known to our neurology team and presents multiple times for altered mental status. He was seen by our team on 04/26/21 and had MRI Brain and was negative for for acute ischemic stroke but showed old encephalomalacia involving the right occipital. CTA head and neck was negative. It was recommended to continue dual antiplatelets ASA and Plavix then after 21 continue only Plavix. Please refer to our notes for further details. He had multiple EEG's in our facility and last on 03/01/21 and it was no seizure or epileptiform discharges. But had moderate encephalopathy. Some of the work-up during this ED visit consisted of: Initial vitals: Blood pressure is 128/79, HR 60, RR 18, Temp 98.1F oral and pulse ox 96% at room air. He had episode of pulse oxygen as low as 40's. CBC with diff: Initial wbc is 11.9K and repeat is 9.36 chemistry panel: unremarkable. AST and ALT is within normal limits. HbA1c is 7.0 U/A is negative for UTI. Urine drug screen is +ve for barbiturates. And alcohol is <10. Coronavirus PCR is not detected. CT head is reported as age related atrophic and chronic small vessel ischemic change without acute intracranial process seen at this time. I personally reviewed CT head and agree with report. CT Cervical is reported as no evidence for acute fracture or subluxation of the cervical spine. Review of Systems Review of system: The 12 point system was reviewed and apparent positive and negative per HPI. Past Medical History Past Medical History: Atrial Fibrillation, Diabetes Mellitus, GERD/Reflux, Hyperlipidemia, Hypertension, Osteoarthritis (OA), Pneumonia Additional Past Medical History / Comment(s): FELL 07/09/19 FX LT RADIUS, FREQUE NT FALLS-REASON UNKNOWN. 03-10-16 FELL/FX RT FIBULA, VERTIGO , chronic headaches, BREAST CANCER History of Any Multi-Drug Resistant Organisms: CRE, MRSA Date of last positivie culture/infection: MRSA-03/11 MDRO Source:: Source unknown-MRSA Past Surgical History: Back Surgery, Breast Surgery, Orthopedic Surgery Additional Past Surgical History / Comment(s): Bilateral mastectomy with right sided lymp node removal due to cancer, R knee cap removed, Back surgery for herniated disc., Brain stem surgery for decompression-for dizziness, right ankle ORIF, bilateral wrist fractures SX Past Anesthesia/Blood Transfusion Reactions: No Reported Reaction Past Psychological History: No Psychological Hx Reported Smoking Status: Former smoker Past Alcohol Use History: None Reported Past Drug Use History: None Reported - Past Family History Father History Unknown: Yes Family Medical History: Congestive Heart Failure (CHF) Additional Family Medical History / Comment(s): at 68. Mother History Unknown: Yes Family Medical History: Hypertension Additional Family Medical History / Comment(s): Pulmonary hypertension. at 78. Medications and Allergies Home Medications Medication Instructions Recorded Confirmed Type Metoprolol Tartrate [Lopressor] 150 mg PO DAILY 11/06/19 05/28/21 History Atorvastatin [Lipitor] 40 mg PO HS 06/18/20 05/28/21 History DULoxetine HCL [Cymbalta] 120 mg PO DAILY 06/18/20 05/28/21 History Baclofen [Lioresal] 20 mg PO BID PRN #6 tab 07/07/20 05/28/21 Rx Folic Acid 1 mg PO DAILY@1200 #30 tab 12/23/20 05/28/21 Rx Thiamine [Vitamin B-1] 100 mg PO DAILY@1200 #30 tab 12/23/20 05/28/21 Rx Multivitamins, Thera [Multivitamin 1 tab PO DAILY@1200 01/09/21 05/28/21 History (formulary)] Triamcinolone 0.1% Ointment 1 applic TOPICAL BID 01/09/21 05/28/21 History [Kenalog 0.1% Ointment] Pyridoxine [Vitamin B-6] 50 mg PO DAILY #30 tab 01/12/21 05/28/21 Rx Cyanocobalamin [Vitamin B-12] 1,000 mcg PO DAILY #30 tab 03/03/21 05/28/21 Rx amLODIPine [Norvasc] 5 mg PO DAILY #30 tab 04/08/21 05/28/21 Rx traMADol HCl [Ultram] 50 mg PO QID PRN 3 Days #12 tab 04/08/21 05/28/21 Rx Calcium Carbonate [Tums] 1,500 mg PO DAILY 04/21/21 05/28/21 History Clopidogrel [Plavix] 75 mg PO DAILY #30 tab 04/26/21 05/28/21 Rx lisinopriL [Zestril] 20 mg PO DAILY #30 tab 04/26/21 05/28/21 Rx Gabapentin [Neurontin] 600 mg PO DAILY 05/05/21 05/28/21 History Magnesium Oxide [Mag-Ox] 1,200 mg PO DAILY 05/05/21 05/28/21 History Pantoprazole Sodium [Protonix] 80 mg PO DAILY 05/05/21 05/28/21 History Sucralfate [Carafate] 3 gm PO DAILY 05/05/21 05/28/21 History hydrALAZINE HCL 20 mg PO DAILY 05/05/21 05/28/21 History Fludrocortisone [Florinef] 0.2 mg PO DAILY #30 tablet 05/11/21 05/28/21 Rx Tamsulosin [Flomax] 0.4 mg PO DAILY 30 Days #30 cap 05/11/21 05/28/21 Rx guaiFENesin [Mucinex] 600 mg PO BID 10 Days #20 tab 05/11/21 05/28/21 Rx Aspirin EC [Ecotrin Low Dose] 81 mg PO DAILY 05/28/21 05/28/21 History Allergies Allergy/AdvReac Type Severity Reaction Status Date / Time cephalexin monohydrate Allergy Anaphylaxis Verified 05/28/21 11:31 [From Keflex] Cephalosporins Allergy Anaphylaxis Verified 05/28/21 11:31 Penicillins Allergy Anaphylaxis Verified 05/28/21 11:31 Physical Examination - Vital Signs Vital Signs: Vital Signs Temp Pulse Pulse Resp BP BP Pulse Ox 05/29/21 06:51 98.4 F 66 18 156/64 93 L 05/29/21 02:00 98.5 F 52 L 17 141/70 90 L 05/28/21 19:07 98.3 F 65 17 131/65 90 L 05/28/21 12:56 97.3 F L 61 17 133/83 96 05/28/21 12:30 64 20 124/78 97 05/28/21 10:48 48 L 18 116/70 97 Intake and Output 05/28/21 05/29/21 05/29/21 22:59 06:59 14:59 Other: Voiding Method Urinal # Voids 4 GENERAL: The patient is lying in bed and is not in acute distress. CHEST: The heart rate is regular rate rhythm. No murmurs to auscultation. No carotid bruit bilaterally. LUNG: Clear to auscultation bilaterally no wheezing noted throughout. Not labored breathing. ABDOMEN/GI: Bowel sounds present in all 4 quadrants. No tenderness to palpation throughout. NEUROLOGICAL: Higher mental function: The patient is drowsy but is awakeable to voice, oriented to self. He stated he was in the hospital but could not tell me name. He stated the year is 1999 and the month is April. He is slow in responding. He was able to name pen, watch and glassess. Patient is following simple commands. No aphasia and no neglect. Cranial nerves: The pupils are round, equal and reactive to light. Visual bishop are full to confrontation throughout. Extraocular movement is intact no nystagmus is noted. Facial sensation is normal to touch throughout. The facial strength is normal throughout. Hearing is moderately decreased bilaterally to hand rub. Tongue is midline and moved [id number] without any difficulty. No dysarthria is noted. Shoulder shrug is normal bilaterally. Motor: The strength is hard to assess individual muscles because of his diffuse pain but is able to lift above gravity. Normal tone and bulk. Cerebellum: Normal finger to nose bilaterally. Sensation: Sensation is normal to touch throughout. Reflexes (right/left): 1+ throughout. Plantars are mute bilaterally. Results - Laboratory Findings CBC and BMP: 05/29/21 03:50 05/29/21 03:50 Abnormal Lab Findings: Abnormal Labs 05/28/21 05/28/21 05/28/21 07:58 08:09 08:09 WBC RBC Hgb Hct MCV MCHC RDW Neutrophils # BUN 26 H Glucose 119 H POC Glucose (mg/dL) 107 H Hemoglobin A1c Ur Barbiturates Screen Detected H 05/28/21 05/28/21 05/28/21 08:11 16:24 20:21 WBC 11.9 H RBC 3.51 L Hgb 11.1 L Hct 34.6 L MCV MCHC RDW Neutrophils # 9.8 H BUN Glucose POC Glucose (mg/dL) 165 H 128 H Hemoglobin A1c Ur Barbiturates Screen 05/29/21 05/29/21 05/29/21 03:50 03:50 03:50 WBC RBC 3.12 L Hgb 9.5 L Hct 31.2 L MCV 100.0 H MCHC 30.4 L RDW 15.7 H Neutrophils # BUN Glucose 124 H POC Glucose (mg/dL) Hemoglobin A1c 7.0 H Ur Barbiturates Screen 05/29/21 06:36 WBC RBC Hgb Hct MCV MCHC RDW Neutrophils # BUN Glucose POC Glucose (mg/dL) 119 H Hemoglobin A1c Ur Barbiturates Screen Assessment and Plan Assessment: * Encephalopathy of unknown etiology. Does not appear like stroke or TIA. Patient present for same presentation and had recent stroke work-up on end of 03/2021-begining of 04/2021 and negative for stroke. * Diabetes, and recent HbA1c is 7.0 * History of benign positional vertigo s/p decompression right occipital, * chronic recurrent vertigo, * Recurrent falls, * Paroxysmal atrial fibrillation not on anticoagulation but is on dual antiplatelets * Hypertension Plan: CT head and CT cervical spine is negative for acute or subacute ischemia I will not pursue MRI Brain since had recent MRI and was negative for stroke. Ordered 2.5 hour EEG as inpatient (if not possible then recommend repeating EEG and attempting to coordinate ambulatory EEG as outpatient since patient continues to come to hospital for same presentation and I do not think this seems like stroke He had recent stroke work and was negative. I will not start the patient on antiepileptic drug unless there is epileptiform discharges or seizure on the EEG (had multiple routine EEG and was negative for seizure or epileptiform discharges). Currently on ASA 81mg and Plavix 75mg daily and from neurological perspective he is only to be on Plavix and does not need dual antiplatelets but will defer final decision to primary team. No on anticoagulation since has history of recurrent falls. Ordered Orthostatic vitals. Continue neuro checks. Place on cardiac monitoring. Consulted PT and OT Rule out any other causes leading to his Altered in mentation. Will defer the rest of medical management to the primary team. For DVT prophylaxis placed on subq heparin 5000U every 12 hours. The plan is discussed with the patient nurse. Thank you for the consultation. Dr. Ryan will start neurology coverage tomorrow AM. Kareem Linder M.D. Neuro-Hospitalist. Time with Patient: Greater than 30
[2021-05-29] MEDS: FOLIC ACID 1 MG TAB PO SCH (11:51)
[2021-05-29] MEDS: THIAMINE 100 MG TAB PO SCH (11:52)
--- NOTE | 2021-05-29 13:15 | P.PN ---
Subjective Progress Note Date: 05/29/21 Principal diagnosis: Altered mental status Mild acute renal injury 70-year-old male presenting to the emergency Department with concern for altered mental status. Patient is a poor historian. Unclear last known well. Patient reportedly lives alone and daughter came to check him this morning and patient was altered. Patient does have chronic vertigo and frequent falls. Patient complains of pain everywhere throughout his body secondary to chronic falls. No isolated area of pain. Further history is limited. EKG Findings:: A. fib rate 61. QRS 94. QT 06/24/1969. QTc 419. Normal axis. Normal QRS. No acute ST change. Blood work reveals to receive 7.9, hemoglobin 11.1 and platelet count of 186, sodium 142, potassium 4.4, BUN/creatinine of 26/1.2 and glucose of 119 Urine drug screen is positive for barbiturates CT brain shows no acute process. Atrophy and chronic small vessel disease. CT cervical spine shows no fracture or subluxation. Chest x-ray shows some cardiomegaly with pulmonary venous congestion. Objective - Vital Signs Vital signs: Vital Signs Temp 98.4 F 05/29/21 06:51 Pulse 66 05/29/21 06:51 Resp 18 05/29/21 06:51 BP 156/64 05/29/21 06:51 Pulse Ox 93 L 05/29/21 06:51 Intake & Output 05/28/21 05/29/21 05/29/21 18:59 06:59 18:59 Output Total 600 Balance -600 Weight 148.325 kg Output: Urine 600 Other: Voiding Method Urinal Urinal Urinal # Voids 4 - Exam GENERAL: The patient is alert and oriented x3, not in any acute distress. Well developed, well nourished. HEENT: Pupils are round and equally reacting to light. EOMI. No scleral icterus. No conjunctival pallor. Normocephalic, atraumatic. No pharyngeal erythema. No thyromegaly. CARDIOVASCULAR: S1 and S2 present. No murmurs, rubs, or gallops. PULMONARY: Chest is clear to auscultation, no wheezing or crackles. ABDOMEN: Soft, nontender, nondistended, normoactive bowel sounds. No palpable organomegaly. MUSCULOSKELETAL: No joint swelling or deformity. EXTREMITIES: No cyanosis, clubbing, or pedal edema. NEUROLOGICAL: Gross neurological examination did not reveal any focal deficits. SKIN: No rashes. - Labs CBC & Chem 7: 05/29/21 03:50 05/29/21 03:50 Labs: Abnormal Lab Results - Last 24 Hours (Table) 05/28/21 05/28/21 05/29/21 Range/Units 16:24 20:21 03:50 RBC (4.40-5.60) X 10*6/uL Hgb (13.0-17.0) g/dL Hct (39.6-50.0) % MCV (80.0-97.0) fL MCHC (32.0-37.0) g/dL RDW (11.5-14.5) % Glucose (70-110) mg/dL POC Glucose (mg/dL) 165 H 128 H (75-99) mg/dL Hemoglobin A1c 7.0 H (0.0-6.0) % 05/29/21 05/29/21 05/29/21 Range/Units 03:50 03:50 06:36 RBC 3.12 L (4.40-5.60) X 10*6/uL Hgb 9.5 L (13.0-17.0) g/dL Hct 31.2 L (39.6-50.0) % MCV 100.0 H (80.0-97.0) fL MCHC 30.4 L (32.0-37.0) g/dL RDW 15.7 H (11.5-14.5) % Glucose 124 H (70-110) mg/dL POC Glucose (mg/dL) 119 H (75-99) mg/dL Hemoglobin A1c (0.0-6.0) % 05/29/21 Range/Units 11:08 RBC (4.40-5.60) X 10*6/uL Hgb (13.0-17.0) g/dL Hct (39.6-50.0) % MCV (80.0-97.0) fL MCHC (32.0-37.0) g/dL RDW (11.5-14.5) % Glucose (70-110) mg/dL POC Glucose (mg/dL) 134 H (75-99) mg/dL Hemoglobin A1c (0.0-6.0) % Assessment and Plan Assessment: 1. Altered mental status; etiology remains unclear; questionable TIA versus CVA; CT of the head reveals atrophic and chronic small vessel ischemic changes without any acute intracranial process - Patient remains on neuro checks; has been placed on aspirin and Lipitor - Neurology is consulted 2. Mild acute renal injury; slowly fluid hydration in form of normal saline at rate of 75 mL an hour; we will monitor strict ELISABETH's, daily weights, renal function and electrolytes; avoid nephrotoxins 3. Hypertension; metoprolol 50 mg daily; hydralazine 20 mg daily 4. Hyperlipidemia; Lipitor 40 mg by mouth daily at bedtime 5. History of diabetes mellitus; currently not on any treatment; we will monitor Accu-Cheks every before meals and at bedtime with insulin sliding scale DVT prophylaxis; SCDs/subcu Lovenox CODE STATUS; full code
[2021-05-29 16:25] LABS: Glucose,Whole Blood 127 mg/dL (75-99)
[2021-05-29 20:18] LABS: Glucose,Whole Blood 145 mg/dL (75-99)
[2021-05-29] MEDS: ATORVASTATIN 40 MG TAB PO SCH (20:56)
[2021-05-29] MEDS: HEPARIN SODIUM,PORCINE/PF 5,000 UNIT/0.5 ML SYRINGE SQ SCH (20:56)
[2021-05-30] MEDS: traMADol 50 MG TAB PO PRN ×2 (03:32→20:00)
[2021-05-30] MEDS: ACETAMINOPHEN TAB 500 MG TAB PO PRN ×2 (03:33→15:26)
[2021-05-30 07:12] LABS: Glucose,Whole Blood 133 mg/dL (75-99)
[2021-05-30] MEDS: INSULIN ASPART (NovoLOG) 100 UNIT/ML VIAL SQ SCH ×4 (08:09→20:52)
[2021-05-30] MEDS: CLOPIDOGREL 75 MG TAB PO SCH (08:09)
[2021-05-30] MEDS: SUCRALFATE 1 GM TAB PO SCH ×3 (08:09→15:26)
[2021-05-30] MEDS: MAGNESIUM OXIDE 400 MG TAB PO SCH ×3 (08:09→20:00)
[2021-05-30] MEDS: FLUDROCORTISONE 0.1 MG TAB PO SCH (08:09)
[2021-05-30] MEDS: ASPIRIN 81 MG PO SCH (08:09)
[2021-05-30] MEDS: HEPARIN SODIUM,PORCINE/PF 5,000 UNIT/0.5 ML SYRINGE SQ SCH ×2 (08:09→20:00)
[2021-05-30] MEDS: CYANOCOBALAMIN 500 MCG TAB PO SCH (08:09)
[2021-05-30] MEDS: PYRIDOXINE 50 MG TAB PO SCH (08:19)
[2021-05-30] MEDS: FOLIC ACID 1 MG TAB PO SCH (11:14)
[2021-05-30] MEDS: THIAMINE 100 MG TAB PO SCH (11:14)
[2021-05-30 16:50] LABS: Glucose,Whole Blood 190 mg/dL (75-99)
--- NOTE | 2021-05-30 17:02 | EEG ---
ELECTROENCEPHALOGRAM REPORT DATE OF PROCEDURE: 05/30/2021 ELECTROENCEPHALOGRAM (EEG) REPORT: TECHNIQUE: This is a report from a prolonged 2-1/2-hour inpatient 18 channel digital video EEG performed using the 10/20 electrode placement system. HISTORY: Chronic vertigo, altered mental status. Other medical history includes diabetes, hypertension. Current medications: Tylenol, aspirin, Lipitor, Plavix, vitamin B12, Florinef, folic acid and others. FINDINGS Recording start time: 05/30/2021 at 9:49 a.m. Recording end time: 05/30/2021 at 12:24 p.m. EVENTS: During this prolonged 2-1/2-hour inpatient video EEG, no clinical or electrographic seizures were recorded. BACKGROUND: The background activity consisted of 8 to 9 hertz rhythmic waveforms, symmetrically distributed over both posterior quadrants. ACTIVATION: Hyperventilation: Not performed. Photic stimulation: No driving seen. Sleep: Drowsy. ABNORMALITIES: None. IMPRESSION: Normal 2-1/2-hour video EEG. No clinical or electrographic seizures were recorded. No epileptiform activity was present. MMODL / IJN: [id number] / [facility]
[2021-05-30] MEDS: ATORVASTATIN 40 MG TAB PO SCH (20:00)
[2021-05-30 21:07] LABS: Glucose,Whole Blood 116 mg/dL (75-99)
--- NOTE | 2021-05-31 00:34 | P.PN ---
Subjective From the records 70-year-old male presenting to the emergency Department with concern for altered mental status. Patient is a poor historian. Unclear last known well. Patient reportedly lives alone and daughter came to check him this morning and patient was altered. Patient does have chronic vertigo and frequent falls. Patient complains of pain everywhere throughout his body secondary to chronic falls. No isolated area of pain. Further history is limited. EKG Findings:: A. fib rate 61. QRS 94. QT 06/24/1969. QTc 419. Normal axis. Normal QRS. No acute ST change. Blood work reveals to receive 7.9, hemoglobin 11.1 and platelet count of 186, sodium 142, potassium 4.4, BUN/creatinine of 26/1.2 and glucose of 119 Urine drug screen is positive for barbiturates CT brain shows no acute process. Atrophy and chronic small vessel disease. CT cervical spine shows no fracture or subluxation. Chest x-ray shows some cardiomegaly with pulmonary venous congestion. Subjective: This is the first time taking care of the patient This is a pleasant 70 years old male is known to my service from previous admissions in the last 2 months to [address] Rodriguez service. Patient presents because of altered mental status, he is known to have periods of confusion since last admission, suspected secondary to toxic encephalopathy as patient is asking for pain medication most of the time Patient was noted to his room most of the day and morning undergoing EEG which came back negative. Patient hemodynamically stable, blood pressure slightly elevated. He is fully awake and oriented to place, however he is disoriented to time and person and he has insight. He is complaining of from generalized body aches. Neurology on the case Currently he is on aspirin and Plavix and Carafate and subcutaneous heparin Discussed with staff to check orthostatic vitals Objective - Vital Signs Vital signs: Vital Signs Temp 99.0 F 05/30/21 13:26 Pulse 73 05/30/21 13:26 Resp 20 05/30/21 13:26 BP 179/99 05/30/21 13:26 Pulse Ox 97 05/30/21 13:26 Intake & Output 05/29/21 05/30/21 05/30/21 18:59 06:59 18:59 Intake Total 1200 Output Total 1500 Balance 1200 -1500 Intake: Oral 1200 Output: Urine 1500 Other: Voiding Method Urinal Urinal Urinal Diaper # Voids 4 3 - Exam -GENERAL: The patient is alert and oriented x1 to place, he follows commands and has logic conversation, not in any acute distress. Well morbidly obese HEENT: Pupils are round and equally reacting to light. EOMI. No scleral icterus. No conjunctival pallor. Normocephalic, atraumatic. No pharyngeal erythema. No thyromegaly. CARDIOVASCULAR: S1 and S2 present. No murmurs, rubs, or gallops. PULMONARY: Chest is clear to auscultation, no wheezing or crackles. ABDOMEN: Soft, nontender, nondistended, normoactive bowel sounds. No palpable organomegaly. MUSCULOSKELETAL: No joint swelling or deformity. EXTREMITIES: No cyanosis, clubbing, or pedal edema. NEUROLOGICAL: Gross neurological examination did not reveal any focal deficits. Chronic bilateral leg weakness SKIN: No rashes. no petechiae. - Labs CBC & Chem 7: 05/29/21 03:50 05/29/21 03:50 Labs: Abnormal Lab Results - Last 24 Hours (Table) 05/29/21 05/30/21 Range/Units 20:17 06:41 POC Glucose (mg/dL) 145 H 133 H (75-99) mg/dL Assessment and Plan Assessment: 1. Altered mental status; suspected secondary to toxic encephalopathy, mild, improved patient back to mental baseline. Unlikely stroke or seizure, neurology on the case If mentation worsens again consider ABG to rule out CO2 narcosis 2. Morbid obesity with BMI of 40.9 3. Hypertension; metoprolol 50 mg daily; hydralazine 20 mg daily 4. Hyperlipidemia; Lipitor 40 mg by mouth daily at bedtime 5. History of diabetes mellitus; currently not on any treatment; we will monitor Accu-Cheks every before meals and at bedtime with insulin sliding scale 6. History of vertigo DVT prophylaxis; SCDs/subcu Lovenox CODE STATUS; full code Dr. Rodriguez team will resume the care of the patient tomorrow
[2021-05-31] MEDS: ACETAMINOPHEN TAB 500 MG TAB PO PRN ×3 (01:58→15:25)
[2021-05-31] MEDS: traMADol 50 MG TAB PO PRN ×3 (04:05→21:49)
[2021-05-31 06:49] LABS: Glucose,Whole Blood 163 mg/dL (75-99)
--- NOTE | 2021-05-31 08:56 | P.PN ---
Subjective Progress Note Date: 05/30/21 Patient was seen for neurology consultation by Dr. Kareem Linder. Please refer to his note for details. Patient frequently comes to the hospital, known to neurology service very well. He came for altered mental status of unknown cause. Patient has history of BPPV, status post occipital decompression. Patient had undergone 2.5 hours EEG today. It was read as normal. Patient states "I'm in a lot of pain". The pain is in the waist going down both legs, rates 8/10. He complains of "horrible headache", rating 8/10. Patient is asking for pain medication. Patient's MRI of the lumbar spine from 06/24/2020 showed broad-based disc bulge L4 5 with mild anterior thecal sac flattening. Mild to moderate bilateral foraminal narrowing L4 5. Small left paracentral protrusion has some mild anterior thecal sac impression at L1-2. Normal sacrum. I personally reviewed the MRI, and these no evidence of significant spinal stenosis at any level. Objective - Vital Signs Vital signs: Vital Signs Temp 99.0 F 05/30/21 13:26 Pulse 73 05/30/21 13:26 Resp 20 05/30/21 13:26 BP 179/99 05/30/21 13:26 Pulse Ox 97 05/30/21 13:26 Intake & Output 05/29/21 05/30/21 05/30/21 18:59 06:59 18:59 Intake Total 1200 1356 Output Total 2320 Balance 1200 -964 Intake: Oral 1200 1356 Output: Urine 2320 Other: Voiding Method Urinal Urinal Urinal Diaper # Voids 4 3 2 - Exam Patient's mental status, speech and language functions are normal. Patient is laying comfortably in the bed. Patient is in no acute distress. Cranial nerves are normal. Muscle strength is equal in the arms and legs. Cerebellar shows no ataxia. Tone and bulk of muscles normal. - Labs CBC & Chem 7: 05/29/21 03:50 05/29/21 03:50 Labs: Abnormal Lab Results - Last 24 Hours (Table) 05/29/21 05/30/21 05/30/21 Range/Units 20:17 06:41 16:49 POC Glucose (mg/dL) 145 H 133 H 190 H (75-99) mg/dL Assessment and Plan Assessment: * Encephalopathy of unknown etiology. Does not appear like stroke or TIA. Patient present for same presentation and had recent stroke work-up in end of 03/2021-begining of 04/2021 and negative for stroke. * Diabetes, and recent HbA1c is 7.0 * History of benign positional vertigo s/p decompression right occipital, * chronic recurrent vertigo, * Recurrent falls, * Paroxysmal atrial fibrillation not on anticoagulation but is on dual antiplatelets * Hypertension Plan: CT head and CT cervical spine is negative for acute or subacute ischemia Patient underwent prolonged 2.5 hour EEG today and it was reported as normal. Currently on ASA 81mg and Plavix 75mg daily and from neurological perspective he is only to be on Plavix and does not need dual antiplatelets but will defer final decision to primary team. Not on anticoagulation since has history of recurrent falls. Check Orthostatic vitals. Continue neuro checks. Place on cardiac monitoring. Consulted PT and OT Rule out any other causes leading to his Altered in mentation. Will defer the rest of medical management to the primary team. For DVT prophylaxis placed on subq heparin 5000U every 12 hours.
[2021-05-31] MEDS: MAGNESIUM OXIDE 400 MG TAB PO SCH ×3 (08:58→21:50)
[2021-05-31] MEDS: HEPARIN SODIUM,PORCINE/PF 5,000 UNIT/0.5 ML SYRINGE SQ SCH ×2 (08:58→21:49)
[2021-05-31] MEDS: FLUDROCORTISONE 0.1 MG TAB PO SCH (08:58)
[2021-05-31] MEDS: SUCRALFATE 1 GM TAB PO SCH ×3 (08:59→17:45)
[2021-05-31] MEDS: ASPIRIN 81 MG PO SCH (08:59)
[2021-05-31] MEDS: PYRIDOXINE 50 MG TAB PO SCH (08:59)
[2021-05-31] MEDS: FOLIC ACID 1 MG TAB PO SCH (08:59)
[2021-05-31] MEDS: CYANOCOBALAMIN 500 MCG TAB PO SCH (08:59)
[2021-05-31] MEDS: INSULIN ASPART (NovoLOG) 100 UNIT/ML VIAL SQ SCH ×4 (08:59→21:49)
[2021-05-31] MEDS: THIAMINE 100 MG TAB PO SCH (08:59)
[2021-05-31] MEDS: CLOPIDOGREL 75 MG TAB PO SCH (08:59)
[2021-05-31 11:19] LABS: Glucose,Whole Blood 160 mg/dL (75-99)
[2021-05-31 11:40] LABS: MCH 32.1 pg (25.0-35.0); MCHC 33.3 g/dL (31.0-37.0); MCV 96.4 fL (80.0-100.0); Mean Platelet Volume 8.5; Platelet Count 189 k/uL (150-450); RBC 3.74 m/uL (4.30-5.90); RDW 14.9 % (11.5-15.5); WBC 9.6 k/uL (3.8-10.6)
[2021-05-31 11:45] LABS: African American GFR (CKD) >90 (>60 ml/min/1.73 sqM); Anion Gap 5 mmol/L; Blood Urea Nitrogen 13 mg/dL (9-20); Carbon Dioxide 28 mmol/L (22-30); Chloride 105 mmol/L (98-107); Glucose 147 mg/dL (74-99); Sodium 138 mmol/L (137-145)
[2021-05-31 11:46] LABS: ALT 16 U/L (4-49); AST 27 U/L (17-59); Albumin 3.5 g/dL (3.5-5.0); Albumin/Globulin Ratio 1.3; Alkaline Phosphatase 74 U/L (38-126); Globulin 2.7 g/dL; Magnesium 1.6 mg/dL (1.6-2.3); Non-African American GFR(CKD) 88 (>60 ml/min/1.73 sqM); Total Bilirubin 0.9 mg/dL (0.2-1.3); Total Protein 6.2 g/dL (6.3-8.2)
[2021-05-31] MEDS ORDERED: CALCIUM CARBONATE 500 MG CHEWABLE PO PRN (12:58)
[2021-05-31] MEDS ORDERED: BACLOFEN 10 MG TAB PO PRN (12:58)
[2021-05-31] MEDS ORDERED: MECLIZINE 25 MG TAB PO PRN (13:02)
--- NOTE | 2021-05-31 15:10 | P.PN ---
Subjective Progress Note Date: 05/31/21 Principal diagnosis: Altered mental status Patient is a 70-year-old male that presented to the emergency room for altered mental status. Patient's daughter advised patient to come in based on altered mental status. Patient has a pertinent medical history of atrial fibrillation, diabetes type 2, GERD, hyperlipidemia, hypertension, memory impairment, osteoarthritis, chronic headaches, chronic back pain and history of multiple falls at home. Chest x-ray showed cardiomegaly with pulmonary venous congestion. Head CT showed age-related atrophic and chronic small vessel ische becka changes without acute findings, neck CT was negative for acute fracture. Neurology was consulted for altered mental status. EEG was ordered and performed and found normal 2-1/2 hour video EEG, no epileptiform activity. Hospitalists coverage 05/28/2021 through 05/30/2021. 05/31/2021 Patient was seen and examined at bedside. Patient was resting comfortably in bed in no acute distress. Patient endorses pain throughout body, and persistent dizziness. Denies chest pain, shortness of breath, fever or chills. States he has been falling at home again. Requesting pain medication more frequently. Blood pressure has been elevated, home medications were not reordered, restart medications and assess for orthostatic hypotension. Neurology has cleared patient, plan for discharge tomorrow if blood pressure improves and mentation remains stable. Objective - Vital Signs Vital signs: Vital Signs Temp 98.4 F 05/31/21 14:00 Pulse 88 05/31/21 14:00 Resp 17 05/31/21 14:00 BP 178/78 05/31/21 14:00 Pulse Ox 96 05/31/21 14:00 Intake & Output 05/30/21 05/31/21 05/31/21 18:59 06:59 18:59 Intake Total 1356 Output Total 2320 1850 950 Balance -964 -1850 -950 Intake: Oral 1356 Output: Urine 2320 1850 950 Other: Voiding Method Urinal Urinal Urinal Diaper Diaper Diaper # Voids 2 5 # Bowel Movements 0 - Constitutional General appearance: Present: cooperative, obese - EENT Eyes: Present: EOMI, PERRLA Ears: bilateral: normal - Neck Neck: Present: normal ROM - Respiratory Respiratory: bilateral: diminished - Cardiovascular Heart rate: 60 Rhythm: irregularly irregular - Peripheral pulses radial pulse Peripheral Pulses: bilateral: Normal - Gastrointestinal General gastrointestinal: Present: normal bowel sounds - Integumentary Integumentary: Present: normal - Neurologic Neurologic: Present: CNII-XII intact - Musculoskeletal Musculoskeletal: Present: generalized weakness - Psychiatric Psychiatric: Present: A&O x's 3 - Allied health notes Allied health notes reviewed: nursing - Labs CBC & Chem 7: 05/31/21 10:53 05/31/21 10:53 Labs: Abnormal Lab Results - Last 24 Hours (Table) 05/30/21 05/30/21 05/31/21 Range/Units 16:49 20:47 06:39 RBC (4.30-5.90) m/uL Hgb (13.0-17.5) gm/dL Hct (39.0-53.0) % Glucose (74-99) mg/dL POC Glucose (mg/dL) 190 H 116 H 163 H (75-99) mg/dL Total Protein (6.3-8.2) g/dL 05/31/21 05/31/21 05/31/21 Range/Units 10:53 10:53 11:18 RBC 3.74 L (4.30-5.90) m/uL Hgb 12.0 L (13.0-17.5) gm/dL Hct 36.0 L (39.0-53.0) % Glucose 147 H (74-99) mg/dL POC Glucose (mg/dL) 160 H (75-99) mg/dL Total Protein 6.2 L (6.3-8.2) g/dL - Imaging and Cardiology Chest x-ray: report reviewed Assessment and Plan Assessment: Altered mental status, resolved Hypertension Multiple falls Vertigo Type 2 diabetes, sliding scale insulin Hyperlipidemia Morbid obesity, BMI 40.9 Plan: EEG normal, mentation back to baseline, continue to monitor orientation Maintain fall precautions Continue to assess vital signs, orthostatics after restarting blood pressure medications Antivert added for dizziness Tramadol increased to home regimen of 4 times a day Further recommendations to come based on patient's clinical course Time with Patient: Greater than 30 (I have personally seen and examined the pa rellnt, reviewed the documentation and agree with the assessment and plan as written. Number of minutes spent on the visit: Rater than 20.)
[2021-05-31] MEDS: GABAPENTIN 300 MG CAP PO SCH (15:25)
[2021-05-31] MEDS: DULoxetine HCL 60 MG CAPSULE.DR PO SCH (15:25)
[2021-05-31] MEDS: amLODIPine 5 MG TAB PO SCH (15:25)
[2021-05-31] MEDS: TAMSULOSIN 0.4 MG CAP.ER.24H PO SCH (15:25)
[2021-05-31] MEDS: PANTOPRAZOLE 40 MG TABLET PO SCH (15:25)
[2021-05-31] MEDS: lisinopriL 20 MG TAB PO SCH (15:25)
[2021-05-31 16:12] LABS: Glucose,Whole Blood 153 mg/dL (75-99)
[2021-05-31 20:29] LABS: Glucose,Whole Blood 143 mg/dL (75-99)
[2021-05-31] MEDS: ATORVASTATIN 40 MG TAB PO SCH (21:49)
[2021-06-01] MEDS: traMADol 50 MG TAB PO PRN ×2 (04:21→11:41)
[2021-06-01 06:38] LABS: Glucose,Whole Blood 150 mg/dL (75-99)
[2021-06-01 07:28] VITALS: BP 171/92; PULSE 82; RESP 17; TEMP 98.1
[2021-06-01] MEDS: HEPARIN SODIUM,PORCINE/PF 5,000 UNIT/0.5 ML SYRINGE SQ SCH (07:28)
[2021-06-01] MEDS: CLOPIDOGREL 75 MG TAB PO SCH (07:29)
[2021-06-01] MEDS: CYANOCOBALAMIN 500 MCG TAB PO SCH (07:29)
[2021-06-01] MEDS: INSULIN ASPART (NovoLOG) 100 UNIT/ML VIAL SQ SCH ×2 (07:29→11:41)
[2021-06-01] MEDS: ASPIRIN 81 MG PO SCH (07:29)
[2021-06-01] MEDS: PANTOPRAZOLE 40 MG TABLET PO SCH (07:29)
[2021-06-01] MEDS: TAMSULOSIN 0.4 MG CAP.ER.24H PO SCH (07:30)
[2021-06-01] MEDS: GABAPENTIN 300 MG CAP PO SCH (07:30)
[2021-06-01] MEDS: DULoxetine HCL 60 MG CAPSULE.DR PO SCH (07:30)
[2021-06-01] MEDS: amLODIPine 5 MG TAB PO SCH (07:30)
[2021-06-01] MEDS: lisinopriL 20 MG TAB PO SCH (07:30)
[2021-06-01] MEDS: SUCRALFATE 1 GM TAB PO SCH ×2 (07:30→11:41)
[2021-06-01] MEDS: MAGNESIUM OXIDE 400 MG TAB PO SCH (07:30)
[2021-06-01] MEDS: FLUDROCORTISONE 0.1 MG TAB PO SCH (07:31)
[2021-06-01] MEDS: PYRIDOXINE 50 MG TAB PO SCH (07:31)
[2021-06-01] MEDS: ACETAMINOPHEN TAB 500 MG TAB PO PRN (07:45)
[2021-06-01] MEDS ORDERED: METOPROLOL TARTRATE 50 MG TAB PO SCH (09:00)
[2021-06-01] MEDS ORDERED: hydrALAZINE HCL 10 MG TAB PO SCH (09:00)
[2021-06-01 11:34] LABS: Glucose,Whole Blood 201 mg/dL (75-99)
[2021-06-01] MEDS: FOLIC ACID 1 MG TAB PO SCH (11:41)
[2021-06-01] MEDS: THIAMINE 100 MG TAB PO SCH (11:41)
[2021-06-01] MEDS ORDERED: MULTIVITAMINS, THERA 1 EACH TAB PO SCH (12:00)
--- NOTE | 2021-06-01 12:01 | P.DS ---
Providers Date of admission: 05/31/21 13:55 Expected date of discharge: 06/01/21 Attending physician: Damon Rodriguez Consults: 05/28/21 10:46 Consult Physician Routine Consulting Provider: Kareem Linder Consult Reason/Comments: ams Do you want consulting provider notified?: Yes Primary care physician: Stated None Hospital Course: Patient is a 70-year-old male that presented to the emergency room for altered mental status. Patient's daughter advised patient to come in based on altered mental status. Patient has a pertinent medical history of atrial fibrillation, diabetes type 2, GERD, hyperlipidemia, hypertension, memory impairment, osteoarthritis, chronic headaches, chronic back pain and history of multiple falls at home. Chest x-ray showed cardiomegaly with pulmonary venous congestion. Head CT showed age-related atrophic and chronic small vessel ischemic changes without acute findings, neck CT was negative for acute fracture. Neurology was consulted for altered mental status. EEG was ordered and performed and found normal 2-1/2 hour video EEG, no epileptiform activity. Hospitalists coverage 05/28/2021 through 05/30/2021. 05/31/2021 Patient was seen and examined at bedside. Patient was resting comfortably in bed in no acute distress. Patient endorses pain throughout body, and persistent dizziness. Denies chest pain, shortness of breath, fever or chills. States he has been falling at home again. Requesting pain medication more frequently. Blood pressure has been elevated, home medications were not reordered, restart medications and assess for orthostatic hypotension. Neurology has cleared patient, plan for discharge tomorrow if blood pressure improves and mentation remains stable. 06/01/21 Patient was seen and evaluated at bedside. Patient was sitting up in chair, alert and oriented. States he is feeling better and has not had any dizziness. Patient refused to go to rehab, will be discharged home with home care. Stable for discharge at this time. Was educated on fall prevention. Assessment: Altered mental status, resolved Hypertension Multiple falls Vertigo Type 2 diabetes, sliding scale insulin Hyperlipidemia Morbid obesity, BMI 40.9 Health Concerns: multiple comorbidities Pertinent Studies: Chest xray- Cardiomegaly with pulmonary venous congestion. Brain CT- negative for acute findings. EEG- Normal 2 hour, no epileptiform waves EKG- controlled afib Plan - Discharge Summary Discharge Rx Participant: No New Discharge Prescriptions: Continue Metoprolol Tartrate [Lopressor] 150 mg PO DAILY Folic Acid 1 mg PO DAILY@1200 #30 tab Thiamine [Vitamin B-1] 100 mg PO DAILY@1200 #30 tab Pyridoxine [Vitamin B-6] 50 mg PO DAILY #30 tab Cyanocobalamin [Vitamin B-12] 1,000 mcg PO DAILY #30 tab Calcium Carbonate [Tums] 1,500 mg PO DAILY lisinopriL [Zestril] 20 mg PO DAILY #30 tab Pantoprazole Sodium [Protonix] 80 mg PO DAILY Sucralfate [Carafate] 3 gm PO DAILY Tamsulosin [Flomax] 0.4 mg PO DAILY 30 Days #30 cap Atorvastatin [Lipitor] 40 mg PO HS Triamcinolone 0.1% Ointment [Kenalog 0.1% Ointment] 1 applic TOPICAL BID Multivitamins, Thera [Multivitamin (formulary)] 1 tab PO DAILY@1200 amLODIPine [Norvasc] 5 mg PO DAILY #30 tab traMADol HCl [Ultram] 50 mg PO QID PRN 3 Days #12 tab PRN Reason: Pain Clopidogrel [Plavix] 75 mg PO DAILY #30 tab Magnesium Oxide [Mag-Ox] 1,200 mg PO DAILY Fludrocortisone [Florinef] 0.2 mg PO DAILY #30 tablet Aspirin EC [Ecotrin Low Dose] 81 mg PO DAILY Discontinued guaiFENesin [Mucinex] 600 mg PO BID 10 Days #20 tab No Action Famotidine [Pepcid] 20 mg PO BID 30 Days #60 tab DULoxetine HCL [Cymbalta] 60 mg PO DAILY 30 Days #30 cap Gabapentin [Neurontin] 300 mg PO DAILY #0 Discharge Medication List Metoprolol Tartrate [Lopressor] 150 mg PO DAILY 11/06/19 [History] Atorvastatin [Lipitor] 40 mg PO HS 06/18/20 [History] Folic Acid 1 mg PO DAILY@1200 #30 tab 12/23/20 [Rx] Thiamine [Vitamin B-1] 100 mg PO DAILY@1200 #30 tab 12/23/20 [Rx] Multivitamins, Thera [Multivitamin (formulary)] 1 tab PO DAILY@1200 01/09/21 [History] Triamcinolone 0.1% Ointment [Kenalog 0.1% Ointment] 1 applic TOPICAL BID 01/09/21 [History] Pyridoxine [Vitamin B-6] 50 mg PO DAILY #30 tab 01/12/21 [Rx] Cyanocobalamin [Vitamin B-12] 1,000 mcg PO DAILY #30 tab 03/03/21 [Rx] amLODIPine [Norvasc] 5 mg PO DAILY #30 tab 04/08/21 [Rx] traMADol HCl [Ultram] 50 mg PO QID PRN 3 Days #12 tab 04/08/21 [Rx] Calcium Carbonate [Tums] 1,500 mg PO DAILY 04/21/21 [History] Clopidogrel [Plavix] 75 mg PO DAILY #30 tab 04/26/21 [Rx] lisinopriL [Zestril] 20 mg PO DAILY #30 tab 04/26/21 [Rx] Magnesium Oxide [Mag-Ox] 1,200 mg PO DAILY 05/05/21 [History] Pantoprazole Sodium [Protonix] 80 mg PO DAILY 05/05/21 [History] Sucralfate [Carafate] 3 gm PO DAILY 05/05/21 [History] Fludrocortisone [Florinef] 0.2 mg PO DAILY #30 tablet 05/11/21 [Rx] Tamsulosin [Flomax] 0.4 mg PO DAILY 30 Days #30 cap 05/11/21 [Rx] Aspirin EC [Ecotrin Low Dose] 81 mg PO DAILY 05/28/21 [History] DULoxetine HCL [Cymbalta] 60 mg PO DAILY 30 Days #30 cap 06/06/21 [Rx] Famotidine [Pepcid] 20 mg PO BID 30 Days #60 tab 06/06/21 [Rx] Gabapentin [Neurontin] 300 mg PO DAILY #0 06/06/21 [Rx] Follow up Appointment(s)/Referral(s): Damon Rodriguez MD [STAFF PHYSICIAN] - 06/07/21 4:30 pm [facility], [NON-STAFF] - Patient Instructions/Handouts: Altered Mental Status (GEN) Discharge Disposition: HOME WITH HOME HEALTH SERVICES Pending Studies Pending Results: I have personally seen and examined the patient, reviewed the documentation and agree with the assessment and plan as written. Number of minutes spent on the visit: Greater than 20.
--- NOTE | 2021-06-05 18:30 | P.PN ---
Subjective Progress Note Date: 06/01/21 06/01/2021: Patient is sitting in the recliner. He is fully alert and awake. He states he is feeling much better. Headache has improved. Legs are still the same. Patient states that he is getting Cymbalta and Fioricet. He has an appointment at [facility] on 06/20/2021. Patient complains of pain in the left lower lateral thigh region, which appears more like meralgia paresthetica. 05/30/2021: Patient was seen for neurology consultation by Dr. Kareem Linder. Please refer to his note for details. Patient frequently comes to the hospital, known to neurology service very well. He came for altered mental status of unknown cause. Patient has history of BPPV, status post occipital decompression. Patient had undergone 2.5 hours EEG today. It was read as normal. Patient states "I'm in a lot of pain". The pain is in the waist going down both legs, rates 8/10. He complains of "horrible headache", rating 8/10. Patient is asking for pain medication. Patient's MRI of the lumbar spine from 06/24/2020 showed broad-based disc bulge L4 5 with mild anterior thecal sac flattening. Mild to moderate bilateral foraminal narrowing L4 5. Small left paracentral protrusion has some mild ante rior thecal sac impression at L1-2. Normal sacrum. I personally reviewed the MRI, and these no evidence of significant spinal stenosis at any level. Objective - Vital Signs Vital signs: Vital Signs Temp 98.1 F 06/01/21 07:27 Pulse 82 06/01/21 07:45 Resp 17 06/01/21 07:45 BP 171/92 06/01/21 07:27 Pulse Ox 96 06/01/21 07:27 Intake & Output 05/31/21 06/01/21 06/01/21 18:59 06:59 18:59 Output Total 3451 1125 400 Balance -3451 -1125 -400 Output: Urine 3450 1125 400 Stool 1 Other: Voiding Method Urinal Urinal Urinal Diaper Diaper Diaper # Voids 4 # Bowel Movements 0 - Exam Patient's mental status, speech and language functions are normal. Patient is sitting comfortably in the recliner. Patient is in no acute distress. Cranial nerves are normal. Muscle strength is equal in the arms and legs. Cerebellar shows no ataxia. Tone and bulk of muscles normal. Sensory decreased sensation in the left lower lateral thigh, in the distribution of lateral femoral cutaneous nerve of thigh. - Labs CBC & Chem 7: 05/31/21 10:53 05/31/21 10:53 Labs: Abnormal Lab Results - Last 24 Hours (Table) 05/31/21 05/31/21 06/01/21 Range/Units 16:10 20:27 06:37 POC Glucose (mg/dL) 153 H 143 H 150 H (75-99) mg/dL 06/01/21 Range/Units 11:32 POC Glucose (mg/dL) 201 H (75-99) mg/dL Assessment and Plan Assessment: * Probable left meralgia paresthetica. * Encephalopathy of unknown etiology. Resolved. * Diabetes, and recent HbA1c is 7.0 * Chronic headaches. * History of benign positional vertigo s/p decompression right occipital, * chronic recurrent vertigo, * Recurrent falls, * Paroxysmal atrial fibrillation not on anticoagulation but is on dual antiplatelets * Hypertension Plan: Patient's mentation is normal. Headache has remarkably improved. His pain in the left lower lateral thigh is likely due to meralgia paresthetica. Continue gabapentin. Patient also tramadol, Cymbalta and baclofen. May follow-up with a neurologist/pain specialist as outpatient. CT head and CT cervical spine is negative for acute or subacute ischemia Patient underwent prolonged 2.5 hour EEG 05/30/2021 and it was reported as normal. Neurologically clear for discharge.
== END 2021-06-01 14:00 | disposition home health service (06) ==
LOC: EC 07:51 → 4SSUR 10:47 → OBSVTOIN 05-31 13:55 → INTOOBSV 05-31 13:55 → UNDODISIN 06-01 14:00
PROVIDERS: ADMIT Family Medicine; ATTEND Family Medicine
DX: R41.82 Altered mental status, unspecified (principal); I10 Essential (primary) hypertension; R29.6 Repeated falls; R42 Dizziness and giddiness; E11.9 Type 2 diabetes mellitus without complications; E78.5 Hyperlipidemia, unspecified; E66.01 Morbid (severe) obesity due to excess calories; Z68.41 Body mass index [BMI] 40.0-44.9, adult; G93.40 Encephalopathy, unspecified; I87.8 Other specified disorders of veins; K21.9 Gastro-esophageal reflux disease without esophagitis; R41.3 Other amnesia; M19.90 Unspecified osteoarthritis, unspecified site; R51.9 Headache, unspecified; G89.29 Other chronic pain; M54.9 Dorsalgia, unspecified; N17.9 Acute kidney failure, unspecified; I48.0 Paroxysmal atrial fibrillation; M25.551 Pain in right hip; M79.652 Pain in left thigh; I11.9 Hypertensive heart disease without heart failure; R09.89 Other specified symptoms and signs involving the circulatory and respiratory systems; Z20.822 Contact with and (suspected) exposure to COVID-19; Z87.01 Personal history of pneumonia (recurrent); Z86.14 Personal history of Methicillin resistant Staphylococcus aureus infection; Z85.3 Personal history of malignant neoplasm of breast; Z87.891 Personal history of nicotine dependence; Z16.24 Resistance to multiple antibiotics; Z90.13 Acquired absence of bilateral breasts and nipples; Z79.899 Other long term (current) drug therapy; Z79.82 Long term (current) use of aspirin; Z79.02 Long term (current) use of antithrombotics/antiplatelets; Z88.0 Allergy status to penicillin; Z88.1 Allergy status to other antibiotic agents; Z91.81 History of falling; Z71.9 Counseling, unspecified; Z82.49 Family history of ischemic heart disease and other diseases of the circulatory system
CPT/HCPCS: 96372 ×4; 99285; 36415; 94760; 95713; 93005; 97116; 97530; 97162; 97535 ×2; 97166; 83880; 80053 ×2; 80048; 83735; 84484; 85025 ×2; 85027; 85610; 85730; 81003; 80306; 83036; 87635; 71046; 72125; 70450; G0378 ×5; G0480; J1644 ×4; 80320

== ENCOUNTER 2021-06-02 20:00 | Observation (INO) | payer MEDICARE ==
[2021-06-02] MEDS ORDERED: MORPHINE SULFATE 2 MG/ML SYRINGE IV STA (21:45)
--- NOTE | 2021-06-02 21:51 | ED ---
General Adult HPI - General Chief complaint: Weakness Stated complaint: Pain all over, confusion Time Seen by Provider: 06/02/21 21:31 Source: patient, EMS Mode of arrival: EMS Limitations: physical limitation - History of Present Illness Initial comments: This patient is 70-year-old man with history of chronic vertigo. He states he had previous neurosurgical procedure related to the vertigo but that it has recurred. He states that he had a fall tonight. Patient is complaining of some headache after the fall as well as right shoulder and left hip pains. He does request some analgesia. Patient denies any preceding symptoms other than the vertigo. He had not noted fever or chills. No cough or dyspnea. No chest pain or abdominal pain. There had been no change in urination or bowel movements. Onset/Timin -: hour(s) Location: head Quality: aching Consistency: constant Improves with: none Worsens with: none Associated Symptoms: denies other symptoms Treatments Prior to Arrival: none - Related Data Home Medications Medication Instructions Recorded Confirmed Metoprolol Tartrate [Lopressor] 150 mg PO DAILY 11/06/19 06/02/21 Atorvastatin [Lipitor] 40 mg PO HS 06/18/20 06/02/21 DULoxetine HCL [Cymbalta] 120 mg PO DAILY 06/18/20 06/02/21 Multivitamins, Thera [Multivitamin 1 tab PO DAILY@1200 01/09/21 06/02/21 (formulary)] Triamcinolone 0.1% Ointment 1 applic TOPICAL BID 01/09/21 06/02/21 [Kenalog 0.1% Ointment] Calcium Carbonate [Tums] 1,500 mg PO DAILY 04/21/21 06/02/21 Gabapentin [Neurontin] 600 mg PO DAILY 05/05/21 06/02/21 Magnesium Oxide [Mag-Ox] 1,200 mg PO DAILY 05/05/21 06/02/21 Pantoprazole Sodium [Protonix] 80 mg PO DAILY 05/05/21 06/02/21 Sucralfate [Carafate] 3 gm PO DAILY 05/05/21 06/02/21 hydrALAZINE HCL 20 mg PO DAILY 05/05/21 06/02/21 Aspirin EC [Ecotrin Low Dose] 81 mg PO DAILY 05/28/21 06/02/21 Previous Rx's Medication Instructions Recorded Baclofen [Lioresal] 20 mg PO BID PRN #6 tab 07/07/20 Folic Acid 1 mg PO DAILY@1200 #30 tab 12/23/20 Thiamine [Vitamin B-1] 100 mg PO DAILY@1200 #30 tab 12/23/20 Pyridoxine [Vitamin B-6] 50 mg PO DAILY #30 tab 01/12/21 Cyanocobalamin [Vitamin B-12] 1,000 mcg PO DAILY #30 tab 03/03/21 amLODIPine [Norvasc] 5 mg PO DAILY #30 tab 04/08/21 traMADol HCl [Ultram] 50 mg PO QID PRN 3 Days #12 tab 04/08/21 Clopidogrel [Plavix] 75 mg PO DAILY #30 tab 04/26/21 lisinopriL [Zestril] 20 mg PO DAILY #30 tab 04/26/21 Fludrocortisone [Florinef] 0.2 mg PO DAILY #30 tablet 05/11/21 Tamsulosin [Flomax] 0.4 mg PO DAILY 30 Days #30 cap 05/11/21 Allergies Allergy/AdvReac Type Severity Reaction Status Date / Time cephalexin monohydrate Allergy Anaphylaxis Verified 06/02/21 22:45 [From Keflex] Cephalosporins Allergy Anaphylaxis Verified 06/02/21 22:45 Penicillins Allergy Anaphylaxis Verified 06/02/21 22:45 Review of Systems ROS Statement: Those systems with pertinent positive or pertinent negative responses have been documented in the HPI. ROS Other: All systems not noted in ROS Statement are negative. Constitutional: Denies: fever, chills, weakness Eyes: Denies: vision change Respiratory: Denies: cough, dyspnea Cardiovascular: Denies: chest pain, palpitations, syncope Gastrointestinal: Denies: abdominal pain, vomiting, diarrhea, melena, hematochezia Genitourinary: Denies: dysuria, hematuria Musculoskeletal: Reports: as per HPI, arthralgia. Denies: back pain Skin: Denies: rash Neurological: Reports: headache, vertigo. Denies: weakness, numbness, paresthesias, confusion Past Medical History Past Medical History: Atrial Fibrillation, Diabetes Mellitus, GERD/Reflux, Hyperlipidemia, Hypertension, Osteoarthritis (OA), Pneumonia Additional Past Medical History / Comment(s): FELL 07/09/19 FX LT RADIUS, FREQUENT FALLS-REASON UNKNOWN. 03-10-16 FELL/FX RT FIBULA, VERTIGO , chronic headaches, BREAST CANCER History of Any Multi-Drug Resistant Organisms: CRE, MRSA Date of last positivie culture/infection: MRSA-03/11 MDRO Source:: Source unknown-MRSA Past Surgical History: Back Surgery, Breast Surgery, Orthopedic Surgery Additional Past Surgical History / Comment(s): Bilateral mastectomy with right sided lymp node removal due to cancer, R knee cap removed, Back surgery for herniated disc., Brain stem surgery for decompression-for dizziness, right ankle ORIF, bilateral wrist fractures SX Past Anesthesia/Blood Transfusion Reactions: No Reported Reaction Past Psychological History: No Psychological Hx Reported Smoking Status: Former smoker Past Alcohol Use History: None Reported Past Drug Use History: None Reported - Past Family History Father History Unknown: Yes Family Medical History: Congestive Heart Failure (CHF) Additional Family Medical History / Comment(s): at 68. Mother History Unknown: Yes Family Medical History: Hypertension Additional Family Medical History / Comment(s): Pulmonary hypertension. at 78. General Exam Limitations: physical limitation General appearance: alert, in no apparent distress Head exam: Present: atraumatic, normocephalic Eye exam: Present: normal appearance. Absent: scleral icterus, conjunctival injection ENT exam: Present: normal oropharynx Neck exam: Present: normal inspection. Absent: tenderness Respiratory exam: Present: normal lung sounds bilaterally. Absent: respiratory distress, wheezes, rales, rhonchi, stridor, accessory muscle use Cardiovascular Exam: Present: regular rate, normal rhythm, normal heart sounds. Absent: systolic murmur, diastolic murmur, rubs, gallop GI/Abdominal exam: Present: soft. Absent: distended, tenderness, guarding, rebound, rigid, mass Extremities exam: Present: normal inspection, normal capillary refill. Absent: pedal edema, calf tenderness Neurological exam: Present: alert, oriented X3. Absent: motor sensory deficit Skin exam: Present: warm, dry, intact, normal color. Absent: rash Course Vital Signs 06/02/21 06/02/21 06/03/21 20:11 23:15 00:15 Temperature 96.9 F L Pulse Rate 57 L 60 53 L Respiratory 16 18 16 Rate Blood Pressure 113/64 134/77 131/68 O2 Sat by Pulse 95 97 96 Oximetry 06/03/21 06/03/21 01:15 02:15 Temperature Pulse Rate 55 L 62 Respiratory 16 16 Rate Blood Pressure 135/83 101/53 O2 Sat by Pulse 98 98 Oximetry EKG Findings - EKG Results: EKG: interpreted by KEVAN, sinus rhythm (Rate 61 bpm), normal axis, normal QRS, normal ST/T Medical Decision Making - Lab Data Result diagrams: 06/02/21 23:00 06/02/21 23:00 Lab Results 06/02/21 06/02/21 06/02/21 Range/Units 22:39 23:00 23:00 WBC 11.0 H (3.8-10.6) k/uL RBC 3.84 L (4.30-5.90) m/uL Hgb 12.3 L (13.0-17.5) gm/dL Hct 37.4 L (39.0-53.0) % MCV 97.3 (80.0-100.0) fL MCH 32.0 (25.0-35.0) pg MCHC 32.9 (31.0-37.0) g/dL RDW 14.8 (11.5-15.5) % Plt Count 226 (150-450) k/uL MPV 7.5 Neutrophils % 79 % Lymphocytes % 10 % Monocytes % 5 % Eosinophils % 4 % Basophils % 0 % Neutrophils # 8.7 H (1.3-7.7) k/uL Lymphocytes # 1.1 (1.0-4.8) k/uL Monocytes # 0.6 (0-1.0) k/uL Eosinophils # 0.4 (0-0.7) k/uL Basophils # 0.0 (0-0.2) k/uL Hypochromasia Slight PT 9.9 (9.0-12.0) sec INR 0.9 (<1.2) APTT 24.9 (22.0-30.0) sec Sodium (137-145) mmol/L Potassium (3.5-5.1) mmol/L Chloride (98-107) mmol/L Carbon Dioxide (22-30) mmol/L Anion Gap mmol/L BUN (9-20) mg/dL Creatinine (0.66-1.25) mg/dL Est GFR (CKD-EPI)AfAm (>60 ml/min/1.73 sqM) Est GFR (CKD-EPI)NonAf (>60 ml/min/1.73 sqM) Glucose (74-99) mg/dL Calcium (8.4-10.2) mg/dL Total Bilirubin (0.2-1.3) mg/dL AST (17-59) U/L ALT (4-49) U/L Alkaline Phosphatase (38-126) U/L Ammonia (<30) umol/L Troponin I (0.000-0.034) ng/mL Total Protein (6.3-8.2) g/dL Albumin (3.5-5.0) g/dL Urine Color Light Yellow Urine Appearance Clear (Clear) Urine pH 6.5 (5.0-8.0) Ur Specific Dawson 1.005 (1.001-1.035) Urine Protein Negative (Negative) Urine Glucose (UA) Negative (Negative) Urine Ketones Negative (Negative) Urine Blood Negative (Negative) Urine Nitrite Negative (Negative) Urine Bilirubin Negative (Negative) Urine Urobilinogen <2.0 (<2.0) mg/dL Ur Leukocyte Esterase Negative (Negative) Urine Opiates Screen Not Detected (NotDetected) Ur Oxycodone Screen Not Detected (NotDetected) Urine Methadone Screen Not Detected (NotDetected) Ur Propoxyphene Screen Not Detected (NotDetected) Ur Barbiturates Screen Detected H (NotDetected) U Tricyclic Antidepress Not Detected (NotDetected) Ur Phencyclidine Scrn Not Detected (NotDetected) Ur Amphetamines Screen Not Detected (NotDetected) U Methamphetamines Scrn Not Detected (NotDetected) U Benzodiazepines Scrn Not Detected (NotDetected) Urine Cocaine Screen Not Detected (NotDetected) U Marijuana (THC) Screen Not Detected (NotDetected) Serum Alcohol mg/dL 06/02/21 06/02/21 06/02/21 Range/Units 23:00 23:00 23:00 WBC (3.8-10.6) k/uL RBC (4.30-5.90) m/uL Hgb (13.0-17.5) gm/dL Hct (39.0-53.0) % MCV (80.0-100.0) fL MCH (25.0-35.0) pg MCHC (31.0-37.0) g/dL RDW (11.5-15.5) % Plt Count (150-450) k/uL MPV Neutrophils % % Lymphocytes % % Monocytes % % Eosinophils % % Basophils % % Neutrophils # (1.3-7.7) k/uL Lymphocytes # (1.0-4.8) k/uL Monocytes # (0-1.0) k/uL Eosinophils # (0-0.7) k/uL Basophils # (0-0.2) k/uL Hypochromasia PT (9.0-12.0) sec INR (<1.2) APTT (22.0-30.0) sec Sodium 138 (137-145) mmol/L Potassium 4.4 (3.5-5.1) mmol/L Chloride 101 (98-107) mmol/L Carbon Dioxide 28 (22-30) mmol/L Anion Gap 9 mmol/L BUN 21 H (9-20) mg/dL Creatinine 0.87 (0.66-1.25) mg/dL Est GFR (CKD-EPI)AfAm >90 (>60 ml/min/1.73 sqM) Est GFR (CKD-EPI)NonAf 88 (>60 ml/min/1.73 sqM) Glucose 132 H (74-99) mg/dL Calcium 9.2 (8.4-10.2) mg/dL Total Bilirubin 1.0 (0.2-1.3) mg/dL AST 72 H (17-59) U/L ALT 26 (4-49) U/L Alkaline Phosphatase 75 (38-126) U/L Ammonia <9 (<30) umol/L Troponin I <0.012 (0.000-0.034) ng/mL Total Protein 7.2 (6.3-8.2) g/dL Albumin 4.1 (3.5-5.0) g/dL Urine Color Urine Appearance (Clear) Urine pH (5.0-8.0) Ur Specific Dawson (1.001-1.035) Urine Protein (Negative) Urine Glucose (UA) (Negative) Urine Ketones (Negative) Urine Blood (Negative) Urine Nitrite (Negative) Urine Bilirubin (Negative) Urine Urobilinogen (<2.0) mg/dL Ur Leukocyte Esterase (Negative) Urine Opiates Screen (NotDetected) Ur Oxycodone Screen (NotDetected) Urine Methadone Screen (NotDetected) Ur Propoxyphene Screen (NotDetected) Ur Barbiturates Screen (NotDetected) U Tricyclic Antidepress (NotDetected) Ur Phencyclidine Scrn (NotDetected) Ur Amphetamines Screen (NotDetected) U Methamphetamines Scrn (NotDetected) U Benzodiazepines Scrn (NotDetected) Urine Cocaine Screen (NotDetected) U Marijuana (THC) Screen (NotDetected) Serum Alcohol <10 mg/dL Disposition Clinical Impression: Vertigo, Contusion Disposition: ADMITTED IP TO THIS [facility] Condition: Good Instructions (If sedation given, give patient instructions): Vertigo (ED), Head Injury (ED) Is patient prescribed a controlled substance at d/c from ED?: No Referrals: None,Stated [Primary Care Provider] - 1-2 days
[2021-06-02 23:00] LABS: Appearance,Urine Clear (Clear); Bilirubin,Urine Negative (Negative); Blood,Urine Negative (Negative); Color,Urine Light Yellow; Glucose,Urine (UA) Negative (Negative); Ketones,Urine Negative (Negative); Leukocyte Esterase,Urine Negative (Negative); Nitrite,Urine Negative (Negative); PH, Urine 6.5 (5.0-8.0); Protein,Urine Negative (Negative); Specific Gravity,Urine 1.005 (1.001-1.035); Urobilinogen,Urine <2.0 mg/dL (<2.0)
[2021-06-02 23:09] LABS: Amphetamine Screen,Urine Not Detected (NotDetected); Barbiturate Screen,Urine Detected (NotDetected); Benzodiazepines Screen,Urine Not Detected (NotDetected); Cocaine Screen,Urine Not Detected (NotDetected); Methadone Screen, Urine Not Detected (NotDetected); Opiate Screen,Urine Not Detected (NotDetected); Phencyclidine Screen,Urine Not Detected (NotDetected); Tricyclic Antidepressant,Urine Not Detected (NotDetected); Urn Cannabinoid Scrn Not Detected (NotDetected)
[2021-06-02 23:10] LABS: Oxycodone Screen, Urine Not Detected (NotDetected)
[2021-06-02 23:18] LABS: Basophils % (A) 0 %; Eosinophils # (A) 0.4 k/uL (0-0.7); Eosinophils % (A) 4 %; HCT 37.4 % (39.0-53.0); HGB 12.3 gm/dL (13.0-17.5); Hypochromasia Slight; Lymphocytes # (A) 1.1 k/uL (1.0-4.8); Lymphocytes % (A) 10 %; MCHC 32.9 g/dL (31.0-37.0); MCV 97.3 fL (80.0-100.0); Mean Platelet Volume 7.5; Monocytes # (A) 0.6 k/uL (0-1.0); Monocytes % (A) 5 %; Neutrophils # (A) 8.7 k/uL (1.3-7.7); Neutrophils % (A) 79 %; Platelet Count 226 k/uL (150-450); RBC 3.84 m/uL (4.30-5.90); RDW 14.8 % (11.5-15.5)
[2021-06-02 23:29] LABS: ALT 26 U/L (4-49); AST 72 U/L (17-59); African American GFR (CKD) >90 (>60 ml/min/1.73 sqM); Albumin 4.1 g/dL (3.5-5.0); Alcohol <10 mg/dL; Alkaline Phosphatase 75 U/L (38-126); Anion Gap 9 mmol/L; Blood Urea Nitrogen 21 mg/dL (9-20); Calcium 9.2 mg/dL (8.4-10.2); Carbon Dioxide 28 mmol/L (22-30); Chloride 101 mmol/L (98-107); Glucose 132 mg/dL (74-99); Non-African American GFR(CKD) 88 (>60 ml/min/1.73 sqM); Potassium 4.4 mmol/L (3.5-5.1); Sodium 138 mmol/L (137-145); Total Protein 7.2 g/dL (6.3-8.2)
[2021-06-02 23:32] LABS: INR 0.9 (<1.2); Partial Thromboplastin Time 24.9 sec (22.0-30.0); Prothrombin Time 9.9 sec (9.0-12.0)
--- NOTE | 2021-06-02 23:44 | CT ---
EXAMINATION TYPE: CT brain deboraine wo con DATE OF EXAM: 06/02/2021 COMPARISON: 05/28/2021 HISTORY: MULTIPLE FALLS, WEAK, CONFUSED CT DLP: 1750.6 mGycm Automated exposure control for dose reduction was used. There is some cerebral cortical atrophy. There is no mass effect or midline shift. There is no sign o f intracranial hemorrhage. Calvarium is intact. The skull base is intact. Cervical vertebra have normal alignment. There is large anterior bridging osteophyte formation at C5- 6 and C6-7. There are similar anterior osteophyte at C2-3. Facet joints are intact. There is no compr ession fracture. IMPRESSION: Mild cerebral atrophy. No acute intracranial abnormality. No change. Hypertrophic osteophyte formation in the cervical spine. No fracture seen. No change compared to the old exam.
--- NOTE | 2021-06-02 23:46 | XR ---
EXAMINATION TYPE: XR shoulder complete RT DATE OF EXAM: 06/02/2021 COMPARISON: NONE HISTORY: Fall. Shoulder pain TECHNIQUE: 3 views FINDINGS: I see no fracture nor dislocation. Glenohumeral joint is anatomic. AC joint is intact. IMPRESSION: No acute abnormality of the right shoulder.
--- NOTE | 2021-06-02 23:47 | XR ---
EXAMINATION TYPE: XR Hip Complete LT DATE OF EXAM: 06/02/2021 COMPARISON: NONE HISTORY: Fall. Hip pain TECHNIQUE: 2 views FINDINGS: I see no fracture nor dislocation. Acetabulum is intact. Proximal femur is intact. IMPRESSION: Negative left hip exam. No fracture.
--- NOTE | 2021-06-02 23:49 | XR ---
EXAMINATION TYPE: XR chest 1V DATE OF EXAM: 06/02/2021 COMPARISON: 05/28/2021 HISTORY: Altered mental status TECHNIQUE: Single view FINDINGS: There is no heart failure nor confluent pneumonic infiltrate. There are chest leads. Costop hrenic angles are clear. Heart size is normal. IMPRESSION: No active cardiopulmonary disease. Normal heart. No adverse change.
[2021-06-03] MEDS ORDERED: HYDROcodone/APAP 5-325MG 1 EACH TAB PO STA (02:06)
[2021-06-03] MEDS ORDERED: NALOXONE 0.4 MG/ML 1 ML VIAL IV PRN (02:28)
[2021-06-03] MEDS ORDERED: HYDROcodone/APAP 5-325MG 1 EACH TAB PO PRN (02:44)
[2021-06-03] MEDS: SODIUM CHLORIDE 0.9% 1,000 ML IV SCH (04:14)
[2021-06-03 07:04] LABS: Glucose,Whole Blood 132 mg/dL (75-99)
[2021-06-03] MEDS: FAMOTIDINE 20 MG TAB PO SCH ×2 (08:31→20:59)
[2021-06-03] MEDS: traMADol 50 MG TAB PO PRN ×3 (08:40→20:58)
[2021-06-03 11:36] LABS: Glucose,Whole Blood 168 mg/dL (75-99)
[2021-06-03] MEDS ORDERED: MECLIZINE 12.5 MG TAB PO PRN (12:38)
[2021-06-03] MEDS: FLUDROCORTISONE 0.1 MG TAB PO SCH (14:00)
--- NOTE | 2021-06-03 14:50 | HP ---
HISTORY AND PHYSICAL DATE OF SERVICE: 06/03/2021 CHIEF COMPLAINTS: Weakness, dizziness, pain all over and as well as fall gait dysfunction. HISTORY OF PRESENT ILLNESS: This 70-year-old gentleman with a past medical history of multiple medical problems, including dizziness, was recently admitted to [facility] with change in mental status and multiple falls and vertigo. Currently patient apparently complains of multiple problems as listed above, including fall. The patient apparently fell from the bed. There is no history of chest pain, palpitations. PAST MEDICAL HISTORY: History of atrial fibrillation, diabetes, GERD, orthostatic hypotension. HOME MEDICATIONS: Include Tums, Ultram, Zestril. Dose, and other medications reviewed. ALLERGIES: ALLERGIES INCLUDE KEFLEX AND CEPHALOSPORIN. FAMILY HISTORY: CHF. SOCIAL HISTORY: Previous smoking. REVIEW OF SYSTEMS: 14-point review is negative except mentioned earlier. PHYSICAL EXAMINATION: Pulse 67, blood pressure 134/70, respirations 16. Mildly confused. HEENT: Oral mucosa is dry. NECK is no jugular venous distention. No carotid bruit. No lymph node enlargement. CARDIOVASCULAR system: S1, S2 muffled. RESPIRATION: Breath sounds diminished in the bases. A few scattered rhonchi. ABDOMEN: Soft, nontender. LEGS are no edema. No swelling. NERVOUS SYSTEM: Diffusely weak. Gait dysfunction. SKIN: No ulcers, rashes and no bleeding. JOINTS: No active deforming arthropathy. LABS: WBC 11, hemoglobin 12.3. ASSESSMENT: 1. Fall and gait dysfunction, rule out acute stroke. 2. Vertigo. 3. History of orthostatic hypotension. 4. Confusion. 5. Atrial fibrillation. 6. Diabetes mellitus, type 2. RECOMMENDATIONS AND DISCUSSION: This 70-year-old gentleman who presented with multiple complex medical issues, we will monitor the patient closely, continue the current management and symptomatic treatment. Otherwise, I would recommend a neurology consultation, neurovascular workup and also neuro checks. PT/OT evaluation. Resume the home medications once they are confirmed. Overall prognosis guarded. Further recommendations to follow. MMODL / IJN: [id number] /
[2021-06-03 17:29] LABS: Glucose,Whole Blood 238 mg/dL (75-99)
--- NOTE | 2021-06-03 18:42 | P.CNOR ---
History of Present Illness - [facility] Consult date: 06/03/21 Requesting physician: Adelina Scales Consult reason: other (right shoulder pain) History of present illness: Patient is a 70-year-old male with a history of vertigo, atrial fibrillation, diabetes, GERD, hypertension, osteoarthritis, frequent falls who presented the emergency department at [facility] status post fall at home. Patient has been following at the [facility] for his vertigo. Patient says he did have a visit about 2 weeks ago and met with a neurosurgeon through the [facility]. Patient says he is supposed to have an MRI of his brain. Patient says last night he was in his home when he fell. Patient says he does not believe he lost consciousness/hit his head. Patient states after the fall he began having right shoulder pain. Patient points to his right chest area over the pectoralis major and says this is where he has most pain as well as over his acromion on the right side. Patient says this pain worsens when he tries to raise his right arm. Patient says the pain is alleviated when he does not move his arm. Patient says before the fall he says he had not had any issues with his right shoulder in the past. Patient denies any previous shoulder surgery. Patient also mentions some left leg pain described as numbness on the lateral left upper leg and left SI joint. He says this pain worsens when he raises his left leg. Patient did have a right knee arthroscopy performed in September 2020 here at [facility]. Patient denies chest pain, fever Shortness breath, nausea, vomiting, change in vision, loss of bowel/bladder control. Past Medical History Past Medical History: Atrial Fibrillation, Diabetes Mellitus, GERD/Reflux, Hyperlipidemia, Hypertension, Osteoarthritis (OA), Pneumonia Additional Past Medical History / Comment(s): FELL 07/09/19 FX LT RADIUS, FREQ UENT FALLS-REASON UNKNOWN. 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 Past Surgical History: Back Surgery, Breast Surgery, Orthopedic Surgery Additional Past Surgical History / Comment(s): Bilateral mastectomy with right sided lymp node removal due to cancer, R knee cap removed, Back surgery for herniated disc., Brain stem surgery for decompression-for dizziness, right ankle ORIF, bilateral wrist fractures SX Past Anesthesia/Blood Transfusion Reactions: No Reported Reaction Past Psychological History: No Psychological Hx Reported Smoking Status: Former smoker Past Alcohol Use History: None Reported Additional Past Alcohol Use History / Comment(s): STARTED SMOKING AT AGE 18, SMOKE A PIPE GOES THRU A PACK OF PIPE TOBACCO/DAY quit smoking in 2005 Past Drug Use History: None Reported - Past Family History Father History Unknown: Yes Family Medical History: Congestive Heart Failure (CHF) Additional Family Medical History / Comment(s): at 68. Mother History Unknown: Yes Family Medical History: Hypertension Additional Family Medical History / Comment(s): Pulmonary hypertension. at 78. Medications and Allergies Home Medications Medication Instructions Recorded Confirmed Type Metoprolol Tartrate [Lopressor] 150 mg PO DAILY 11/06/19 06/02/21 History Atorvastatin [Lipitor] 40 mg PO HS 06/18/20 06/02/21 History DULoxetine HCL [Cymbalta] 120 mg PO DAILY 06/18/20 06/02/21 History Baclofen [Lioresal] 20 mg PO BID PRN #6 tab 07/07/20 06/02/21 Rx Folic Acid 1 mg PO DAILY@1200 #30 tab 12/23/20 06/02/21 Rx Thiamine [Vitamin B-1] 100 mg PO DAILY@1200 #30 tab 12/23/20 06/02/21 Rx Multivitamins, Thera [Multivitamin 1 tab PO DAILY@1200 01/09/21 06/02/21 History (formulary)] Triamcinolone 0.1% Ointment 1 applic TOPICAL BID 01/09/21 06/02/21 History [Kenalog 0.1% Ointment] Pyridoxine [Vitamin B-6] 50 mg PO DAILY #30 tab 01/12/21 06/02/21 Rx Cyanocobalamin [Vitamin B-12] 1,000 mcg PO DAILY #30 tab 03/03/21 06/02/21 Rx amLODIPine [Norvasc] 5 mg PO DAILY #30 tab 04/08/21 06/02/21 Rx traMADol HCl [Ultram] 50 mg PO QID PRN 3 Days #12 tab 04/08/21 06/02/21 Rx Calcium Carbonate [Tums] 1,500 mg PO DAILY 04/21/21 06/02/21 History Clopidogrel [Plavix] 75 mg PO DAILY #30 tab 04/26/21 06/02/21 Rx lisinopriL [Zestril] 20 mg PO DAILY #30 tab 04/26/21 06/02/21 Rx Gabapentin [Neurontin] 600 mg PO DAILY 05/05/21 06/02/21 History Magnesium Oxide [Mag-Ox] 1,200 mg PO DAILY 05/05/21 06/02/21 History Pantoprazole Sodium [Protonix] 80 mg PO DAILY 05/05/21 06/02/21 History Sucralfate [Carafate] 3 gm PO DAILY 05/05/21 06/02/21 History hydrALAZINE HCL 20 mg PO DAILY 05/05/21 06/02/21 History Fludrocortisone [Florinef] 0.2 mg PO DAILY #30 tablet 05/11/21 06/02/21 Rx Tamsulosin [Flomax] 0.4 mg PO DAILY 30 Days #30 cap 05/11/21 06/02/21 Rx Aspirin EC [Ecotrin Low Dose] 81 mg PO DAILY 05/28/21 06/02/21 History Allergies Allergy/AdvReac Type Severity Reaction Status Date / Time cephalexin monohydrate Allergy Anaphylaxis Verified 06/02/21 22:45 [From Keflex] Cephalosporins Allergy Anaphylaxis Verified 06/02/21 22:45 Penicillins Allergy Anaphylaxis Verified 06/02/21 22:45 Physical Examination Inspection: Negative for any open fractures, significant ecchymosis, erythema, nodules. Sensation: Sensation is equal, symmetric, bilaterally intact in upper and lower extremities Palpation: TTP over the acromion on the right side. Nontender to palpation throughout the rest of exam on right shoulder. TTP throughout the lumbar spine especially in the left SI joint regions. Moderate tenderness to patient along the medial joint line left knee. Non tender to palpation throughout rest of exam Range of motion: Full range of motion in left upper extremities; limited range of motion in hip flexion bilaterally. Limited flexion in left knee due to pain Motor: 3+/5 resisted left hip flexion, left knee flexion/extension. 3+/5 in resisted right shoulder forward elevation/external rotation. 4+/5 in all other major motor groups Neurovascular status: Refill under 3 seconds bilaterally in digits of upper extremities. Radial pulses intact, 2+ bilaterally. Special tests: Negative Norris's bilaterally; negative clonus bilaterally; negative Homans bilaterally Results - Labs Labs: Abnormal Lab Results - Last 24 Hours (Table) 06/02/21 06/02/21 06/02/21 Range/Units 22:39 23:00 23:00 WBC 11.0 H (3.8-10.6) k/uL RBC 3.84 L (4.30-5.90) m/uL Hgb 12.3 L (13.0-17.5) gm/dL Hct 37.4 L (39.0-53.0) % Neutrophils # 8.7 H (1.3-7.7) k/uL BUN 21 H (9-20) mg/dL Glucose 132 H (74-99) mg/dL POC Glucose (mg/dL) (75-99) mg/dL AST 72 H (17-59) U/L Ur Barbiturates Screen Detected H (NotDetected) 06/03/21 06/03/21 Range/Units 07:00 11:35 WBC (3.8-10.6) k/uL RBC (4.30-5.90) m/uL Hgb (13.0-17.5) gm/dL Hct (39.0-53.0) % Neutrophils # (1.3-7.7) k/uL BUN (9-20) mg/dL Glucose (74-99) mg/dL POC Glucose (mg/dL) 132 H 168 H (75-99) mg/dL AST (17-59) U/L Ur Barbiturates Screen (NotDetected) H & H 06/02/21 Range/Units 23:00 Hgb 12.3 L (13.0-17.5) gm/dL Hct 37.4 L (39.0-53.0) % Coagulation 06/02/21 Range/Units 23:00 INR 0.9 (<1.2) Result Diagrams: 06/02/21 23:00 06/02/21 23:00 Assessment and Plan Assessment: 1. Right shoulder strain; LLE radiculopathy 2. Vertigo w/history of falls 3. Mutiple medical comorbidities Plan: 1. Right shoulder strain; LLE radiculopathy - x-ray of the right shoulder has been reviewed. Negative for any dislocation/fractures; glenohumeral joint appears intact and AC joint is stable. X-ray left hip does not reveal any sort of fracture/dislocation. Acetabulum is intact. At this time we do not recommend any emergent/urgent orthopedic surgical intervention. We do recommend pain control for patient at this time for his shoulder. We do recommend patient to follow-up in the outpatient setting for further investigation of his shoulder. Middle continue to follow patient while in hospital. 2. Appreciate medical management 3. Pain management - tramadol; [place]; gabapentin 4. DVT prophylaxis - Plavix; aspirin 5. GI prophylaxis - Pepcid 6. PT/OT - weightbearing as tolerated with walker and assistance Time with Patient: Less than 30
[2021-06-03 20:58] LABS: Glucose,Whole Blood 165 mg/dL (75-99)
[2021-06-03] MEDS: ATORVASTATIN 40 MG TAB PO SCH (20:58)
[2021-06-04] MEDS: SODIUM CHLORIDE 0.9% 1,000 ML IV SCH (01:08)
[2021-06-04] MEDS: traMADol 50 MG TAB PO PRN ×4 (03:12→21:30)
[2021-06-04 07:50] LABS: Glucose,Whole Blood 133 mg/dL (75-99)
[2021-06-04] MEDS: PANTOPRAZOLE 40 MG TABLET PO SCH (08:07)
[2021-06-04] MEDS: ASPIRIN 81 MG PO SCH (08:08)
[2021-06-04] MEDS: CALCIUM CARBONATE 500 MG CHEWABLE PO SCH (08:08)
[2021-06-04] MEDS: amLODIPine 5 MG TAB PO SCH (08:08)
[2021-06-04] MEDS: FAMOTIDINE 20 MG TAB PO SCH ×2 (08:09→21:30)
[2021-06-04] MEDS: CYANOCOBALAMIN 500 MCG TAB PO SCH (08:09)
[2021-06-04] MEDS: FLUDROCORTISONE 0.1 MG TAB PO SCH (08:09)
[2021-06-04] MEDS: CLOPIDOGREL 75 MG TAB PO SCH (08:09)
[2021-06-04] MEDS: DULoxetine HCL 60 MG CAPSULE.DR PO SCH (08:09)
[2021-06-04] MEDS: GABAPENTIN 300 MG CAP PO SCH (08:09)
[2021-06-04] MEDS: PYRIDOXINE 50 MG TAB PO SCH (08:10)
[2021-06-04] MEDS: SUCRALFATE 1 GM TAB PO SCH (08:10)
[2021-06-04] MEDS: lisinopriL 20 MG TAB PO SCH (08:10)
[2021-06-04] MEDS: MAGNESIUM OXIDE 400 MG TAB PO SCH (08:10)
[2021-06-04] MEDS: METOPROLOL TARTRATE 50 MG TAB PO SCH (08:10)
[2021-06-04] MEDS: TAMSULOSIN 0.4 MG CAP.ER.24H PO SCH (08:11)
[2021-06-04] MEDS: MULTIVITAMINS, THERA 1 EACH TAB PO SCH (08:11)
[2021-06-04] MEDS: THIAMINE 100 MG TAB PO SCH (08:11)
[2021-06-04] MEDS: FOLIC ACID 1 MG TAB PO SCH (08:11)
[2021-06-04 11:22] LABS: Basophils # (A) 0.03 X 10*3/uL (0.00-0.10); Basophils % (A) 0.3 %; Eosinophils # (A) 0.26 X 10*3/uL (0.04-0.35); Eosinophils % (A) 2.9 %; HCT 31.1 % (39.6-50.0); HGB 9.7 g/dL (13.0-17.0); Immature Grans, Automated 0.3 %; Lymphocytes # (A) 1.76 X 10*3/uL (0.90-5.00); Lymphocytes % (A) 19.3 %; MCH 29.9 pg (27.0-32.0); MCHC 31.2 g/dL (32.0-37.0); Mean Platelet Volume 10.2 fL (9.5-12.2); Monocytes # (A) 0.79 X 10*3/uL (0.20-1.00); Monocytes % (A) 8.7 %; NRBC Per 100 WBC 0 /100 WBCS (0.0-0.0); Neutrophils # (A) 6.24 X 10*3/uL (1.80-7.70); Neutrophils % (A) 68.5 %; Platelet Count 230 X 10*3/uL (140-440); RBC 3.24 X 10*6/uL (4.40-5.60); RDW 14.7 % (11.5-14.5); WBC 9.11 X 10*3/uL (4.50-10.00)
[2021-06-04 11:38] LABS: African American GFR (CKD) 99.9 (60.0-200.0); Albumin 3.5 g/dL (3.8-4.9); Albumin/Globulin Ratio 1.75 (1.60-3.17); Anion Gap 11.4 mmol/L (10.00-18.00); BUN/Creat Ratio 18.78 Ratio (12.00-20.00); Blood Urea Nitrogen 16.9 mg/dL (9.0-27.0); Calcium 8.7 mg/dL (8.7-10.3); Carbon Dioxide 26.6 mmol/L (20.0-27.5); Magnesium 1.8 mg/dL (1.5-2.4); Non-African American GFR(CKD) 86.2 (60.0-200.0); Potassium 3.3 mmol/L (3.5-5.5); Total Bilirubin 0.3 mg/dL (0.30-1.20); Total Protein 5.5 g/dL (6.2-8.2)
[2021-06-04 12:13] LABS: Glucose,Whole Blood 225 mg/dL (75-99)
[2021-06-04] MEDS ORDERED: Potassium Replacement Protocol 1 EACH MISC MISCELLANE PRN (15:51)
[2021-06-04] MEDS: POTASSIUM CHLORIDE ER 20 MEQ TAB.ER PO SCH ×2 (16:02→17:02)
[2021-06-04 17:25] LABS: Glucose,Whole Blood 151 mg/dL (75-99)
[2021-06-04] MEDS: INSULIN ASPART (NovoLOG) 100 UNIT/ML VIAL SQ SCH ×2 (18:01→21:40)
--- NOTE | 2021-06-04 18:48 | PN ---
PROGRESS NOTE DATE OF SERVICE: 06/04/2021 This 70-year-old gentleman who was admitted with significant dizziness and vertigo, also had some hypotension. No chest pain. No palpitation. PHYSICAL EXAMINATION: Pulse is 69, blood pressure 130/86. No orthostatic changes. CARDIOVASCULAR SYSTEM: S1, S2. RESPIRATORY: A few scattered rhonchi. ABDOMEN: Soft. NERVOUS SYSTEM: No focal deficits. LABS: Noted. Hemoglobin 9.7. ASSESSMENT: 1. Fall and gait dysfunction, possible acute transient ischemic attack. 2. Vertigo. 3. History of orthostatic hypotension. 4. Confusion. 5. Atrial fibrillation. 6. Diabetes mellitus, type 2. RECOMMENDATION: Recommend to continue current management and symptomatic treatment. Otherwise, PT/OT evaluation. Continue the rest of medications. See orders for further details. MMODL / IJN: [id number] /
[2021-06-04] MEDS: ATORVASTATIN 40 MG TAB PO SCH (21:30)
[2021-06-04 21:41] LABS: Glucose,Whole Blood 125 mg/dL (75-99)
[2021-06-05] MEDS: HYDROcodone/APAP 5-325MG 1 EACH TAB PO PRN ×3 (03:47→21:19)
[2021-06-05 08:14] LABS: Glucose,Whole Blood 140 mg/dL (75-99)
[2021-06-05] MEDS: INSULIN ASPART (NovoLOG) 100 UNIT/ML VIAL SQ SCH ×4 (08:48→21:19)
[2021-06-05] MEDS: CALCIUM CARBONATE 500 MG CHEWABLE PO SCH (08:49)
[2021-06-05] MEDS: PANTOPRAZOLE 40 MG TABLET PO SCH (08:49)
[2021-06-05] MEDS: ASPIRIN 81 MG PO SCH (08:49)
[2021-06-05] MEDS: amLODIPine 5 MG TAB PO SCH (08:49)
[2021-06-05] MEDS: FAMOTIDINE 20 MG TAB PO SCH ×2 (08:50→21:19)
[2021-06-05] MEDS: CYANOCOBALAMIN 500 MCG TAB PO SCH (08:50)
[2021-06-05] MEDS: DULoxetine HCL 60 MG CAPSULE.DR PO SCH (08:50)
[2021-06-05] MEDS: CLOPIDOGREL 75 MG TAB PO SCH (08:50)
[2021-06-05] MEDS: FLUDROCORTISONE 0.1 MG TAB PO SCH (08:50)
[2021-06-05] MEDS: METOPROLOL TARTRATE 50 MG TAB PO SCH (08:51)
[2021-06-05] MEDS: lisinopriL 20 MG TAB PO SCH (08:51)
[2021-06-05] MEDS: MAGNESIUM OXIDE 400 MG TAB PO SCH (08:51)
[2021-06-05] MEDS: PYRIDOXINE 50 MG TAB PO SCH (08:51)
[2021-06-05] MEDS: GABAPENTIN 300 MG CAP PO SCH (08:51)
[2021-06-05] MEDS: FOLIC ACID 1 MG TAB PO SCH ×2 (08:52→08:54)
[2021-06-05] MEDS: THIAMINE 100 MG TAB PO SCH (08:52)
[2021-06-05] MEDS: traMADol 50 MG TAB PO PRN (08:52)
[2021-06-05] MEDS: TAMSULOSIN 0.4 MG CAP.ER.24H PO SCH (08:52)
[2021-06-05] MEDS: SUCRALFATE 1 GM TAB PO SCH (08:52)
[2021-06-05] MEDS: MULTIVITAMINS, THERA 1 EACH TAB PO SCH (08:52)
[2021-06-05 12:27] LABS: Glucose,Whole Blood 156 mg/dL (75-99)
[2021-06-05 17:41] LABS: Glucose,Whole Blood 168 mg/dL (75-99)
--- NOTE | 2021-06-05 18:47 | PN ---
PROGRESS NOTE DATE OF SERVICE: 06/03/2021 This 70-year-old gentleman who was admitted with weakness and dizziness is being closely monitored. The patient is not orthostatically hypotensive. No chest pain. No palpitation. PHYSICAL EXAMINATION: Pulse is 70, blood pressure 140/73, respiration 20, temperature 97.8. HEENT: Conjunctivae normal. Oral mucosa moist. Neck: No JVD. Cardiovascular: S1, S2 muffled. Respiration: A few scattered rhonchi. Abdomen: Soft. Nervous system: No focal deficits. LABS: Reviewed. ASSESSMENT: 1. Fall and gait dysfunction, possible acute transient ischemic attack. 2. Vertigo. 3. History of orthostatic hypotension. 4. Confusion. 5. Atrial fibrillation. 6. Diabetes mellitus, type 2. DISCUSSION AND RECOMMENDATIONS: Recommend to continue current medications, management and symptomatic treatment. Monitor closely. Increase ambulation. 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 Further recommendations to follow. MMODL / SAMMN: [id number] /
[2021-06-05 20:52] LABS: Glucose,Whole Blood 139 mg/dL (75-99)
[2021-06-05] MEDS: ATORVASTATIN 40 MG TAB PO SCH (21:19)
[2021-06-05 21:54] VITALS: TEMP 98.1
[2021-06-06] MEDS: traMADol 50 MG TAB PO PRN ×2 (00:34→08:23)
[2021-06-06 04:57] VITALS: BP 162/82; PULSE 71; RESP 18
[2021-06-06] MEDS: HYDROcodone/APAP 5-325MG 1 EACH TAB PO PRN ×2 (05:14→12:59)
[2021-06-06 07:37] LABS: Glucose,Whole Blood 134 mg/dL (75-99)
[2021-06-06] MEDS: CALCIUM CARBONATE 500 MG CHEWABLE PO SCH (08:10)
[2021-06-06] MEDS: FLUDROCORTISONE 0.1 MG TAB PO SCH (08:12)
[2021-06-06] MEDS: DULoxetine HCL 60 MG CAPSULE.DR PO SCH (08:12)
[2021-06-06] MEDS: CLOPIDOGREL 75 MG TAB PO SCH (08:12)
[2021-06-06] MEDS: MAGNESIUM OXIDE 400 MG TAB PO SCH (08:12)
[2021-06-06] MEDS: PANTOPRAZOLE 40 MG TABLET PO SCH (08:12)
[2021-06-06] MEDS: GABAPENTIN 300 MG CAP PO SCH (08:12)
[2021-06-06] MEDS: TAMSULOSIN 0.4 MG CAP.ER.24H PO SCH (08:13)
[2021-06-06] MEDS: amLODIPine 5 MG TAB PO SCH (08:13)
[2021-06-06] MEDS: PYRIDOXINE 50 MG TAB PO SCH (08:13)
[2021-06-06] MEDS: FAMOTIDINE 20 MG TAB PO SCH (08:13)
[2021-06-06] MEDS: CYANOCOBALAMIN 500 MCG TAB PO SCH (08:13)
[2021-06-06] MEDS: lisinopriL 20 MG TAB PO SCH (08:13)
[2021-06-06] MEDS: SUCRALFATE 1 GM TAB PO SCH (08:13)
[2021-06-06] MEDS: METOPROLOL TARTRATE 50 MG TAB PO SCH (08:13)
[2021-06-06] MEDS: INSULIN ASPART (NovoLOG) 100 UNIT/ML VIAL SQ SCH ×2 (08:14→12:59)
[2021-06-06] MEDS: ASPIRIN 81 MG PO SCH (08:23)
[2021-06-06] MEDS: THIAMINE 100 MG TAB PO SCH (12:07)
[2021-06-06] MEDS: MULTIVITAMINS, THERA 1 EACH TAB PO SCH (12:07)
[2021-06-06 12:44] LABS: Glucose,Whole Blood 146 mg/dL (75-99)
--- NOTE | 2021-06-06 13:08 | P.PN ---
Subjective Progress Note Date: 06/06/21 Principal diagnosis: Right Shoulder Pain, LLE Radiculopathy Patient is resting in bed eating breakfast. He states he has been having frequent falls at home. He has c/o right shoulder pain that he states is managed with pain medication. Pt denies any numbness or tingling to this extremity. He states he has some pain that is radiating to his left thigh down to his knee. Patient states he is not sure if the pain is coming from his left hip or lower back. Denies any needs at this time. Patient states he believes he will be discharged today and would like to follow up in office. Objective - Vital Signs Vital signs: Vital Signs Temp 98.1 F 06/06/21 04:56 Pulse 71 06/06/21 04:56 Resp 18 06/06/21 04:56 BP 162/82 06/06/21 04:56 Pulse Ox 94 L 06/06/21 04:56 Intake & Output 06/05/21 06/06/21 06/06/21 18:59 06:59 18:59 Intake Total 900 540 Output Total 900 1200 Balance 0 -660 Intake: Oral 900 540 Output: Urine 900 1200 Other: Voiding Method Urinal Urinal # Voids 4 - Exam Physical Examination General: The patient is awake and alert, in no acute distress Skin: Skin is warm and dry with no obvious rashes or lesions. Hairy patches absent, no dorsal skin dimples, no cafe au lait spots, and no surgical incisions. Eye: Pupils are equal, round and reactive to light, extra-ocular movements are intact; there is normal conjunctiva bilaterally. Neck: The neck is supple, there is no tenderness and ROM intact. Cardiovascular: There is a regular rate and rhythm. No murmur, rub or gallop is appreciated. Respiratory: Lungs are clear to auscultation, respirations are non-labored, breath sounds are equal. Gastrointestinal: Soft, non-distended, non-tender abdomen. Back: There is slight tenderness to palpation in the midline, paralumbar, parathoracic or buttocks region. There is no obvious deformity. Musculoskeletal: ROM limited secondary to pain to right shoulder and left hip/left lumbar region. R Shoulder abduction 4/5, elbow flexors 5/5, wrist dorsiflexors 5/5. finger abductor 5/5, chairman & co founder 5/5, L hip flexor 4/5, knee flexor 5/5, ankle dorsiflexor 5/5, ankle plantarflexion 5/5 and extensor hallucis 5/5. Neurological: CN 2-12 intact. There are no obvious motor or sensory deficits. Movement and coordination equal and intact. Sensory exam to light touch intact C5-T1 and intact from L2-S1. Reflexes 2/4 in bilateral upper and lower extremiti es. Negative Hoffmans, babinski, and clonus signs. Psychiatric: Cooperative, appropriate mood & affect, normal judgment. - Labs CBC & Chem 7: 06/04/21 06:46 06/05/21 06:43 Labs: Abnormal Lab Results - Last 24 Hours (Table) 06/05/21 06/05/21 06/05/21 Range/Units 12:18 17:38 20:51 POC Glucose (mg/dL) 156 H 168 H 139 H (75-99) mg/dL 06/06/21 Range/Units 07:36 POC Glucose (mg/dL) 134 H (75-99) mg/dL Microbiology - Last 24 Hours (Table) 06/03/21 06:09 Blood Culture - Preliminary Blood No Growth after 72 hours Assessment and Plan Assessment: Assessment: 1. Right shoulder strain; LLE radiculopathy 2. Vertigo w/history of falls 3. Mutiple medical comorbidities Plan: I reviewed and discussed the case with my attending Dr. Anderson, he has had a chance to review the chart and films and we have decided to proceed as outlined below. Plan: -Appreciate artist consultant and team management. -Activity: Ambulate QID, OOB all meals, Use walker or cane if needed for stability. -Daily PT/OT, increase ambulation strength and balance. -Pain control: Adequate at this time -Meds: reviewed -GI ppx: senna -DVT PPX: prilosec -Encourage IS 10x/hr -Dispo: Pt to follow up in office setting to further assses right shoulder and low back/left hip pain. Time with Patient: Less than 30
--- NOTE | 2021-06-09 16:00 | P.DS ---
Providers Date of admission: 06/03/21 02:28 Expected date of discharge: 06/06/21 Attending physician: Faviola Moses Consults: 06/03/21 12:38 Consult Physician Urgent Consulting Provider: Emir Anderson Consult Reason/Comments: right shoulder pain Do you want consulting provider notified?: Yes Primary care physician: Stated None Hospital Course: Final diagnosis Fall, gait dysfunction, possible acute transient ischemic attack Vertigo history of orthostatic hypotension Confusion, improved Atrial fibrillation next line diabetes mellitus type 2 Discharge disposition Patient is being discharged in a stable condition with guarded prognosis to home. Patient will follow-up with Dr. Rodriguez in the outpatient setting upon discharge. Patient is to follow-up with orthopedics in the outpatient setting as needed. Patient to continue with home care on discharge. Total time taken is greater than 35 minutes. Hospital course This is a 71-year-old male who was recently admitted with weakness and dizziness being closely monitored. Patient was evaluated by orthopedics as well for right shoulder pain recommend outpatient follow-up in the outpatient setting. Patient encouraged to follow-up with primary care provider upon discharge and medications have been adjusted and decreased and encourage the patient to discuss with primary care provider about change in medications. Patient will have home care in the outpatient setting that is arranged. Currently no reports of chest pain, shortness of breath, or palpitations. Patient is afebrile. No reports of nausea or vomiting and patient is tolerating diet. Patient will be discharged home today. Guarded prognosis. On exam vital signs are stable. Cardio S1, S2 are muffled. Respiratory system shows diminished breath sounds at the bases with no wheezing or rhonchi noted. Abdomen is soft and obese, and nontender. Nervous system shows no focal deficits. Please refer to medication reconciliation sheet for a list of medications. The impression and plan of care has been dictated by Adelina Scales, nurse practitioner as directed. MD Donn I have performed a history and examination and MDM of this patient, discussed the same with the dictator, and agree with the dictator's assessment and plan as written ,documented as a scribe. Based on total visit time, I have performed more than 50% of the visit. Patient Condition at Discharge: Good Plan - Discharge Summary New Discharge Prescriptions: New Famotidine [Pepcid] 20 mg PO BID 30 Days #60 tab DULoxetine HCL [Cymbalta] 60 mg PO DAILY 30 Days #30 cap Continue Metoprolol Tartrate [Lopressor] 150 mg PO DAILY Folic Acid 1 mg PO DAILY@1200 #30 tab Thiamine [Vitamin B-1] 100 mg PO DAILY@1200 #30 tab Pyridoxine [Vitamin B-6] 50 mg PO DAILY #30 tab Cyanocobalamin [Vitamin B-12] 1,000 mcg PO DAILY #30 tab Calcium Carbonate [Tums] 1,500 mg PO DAILY lisinopriL [Zestril] 20 mg PO DAILY #30 tab Pantoprazole Sodium [Protonix] 80 mg PO DAILY Sucralfate [Carafate] 3 gm PO DAILY Tamsulosin [Flomax] 0.4 mg PO DAILY 30 Days #30 cap Atorvastatin [Lipitor] 40 mg PO HS Triamcinolone 0.1% Ointment [Kenalog 0.1% Ointment] 1 applic TOPICAL BID Multivitamins, Thera [Multivitamin (formulary)] 1 tab PO DAILY@1200 amLODIPine [Norvasc] 5 mg PO DAILY #30 tab traMADol HCl [Ultram] 50 mg PO QID PRN 3 Days #12 tab PRN Reason: Pain Clopidogrel [Plavix] 75 mg PO DAILY #30 tab Magnesium Oxide [Mag-Ox] 1,200 mg PO DAILY Fludrocortisone [Florinef] 0.2 mg PO DAILY #30 tablet Aspirin EC [Ecotrin Low Dose] 81 mg PO DAILY Changed Gabapentin [Neurontin] 300 mg PO DAILY #0 Discontinued DULoxetine HCL [Cymbalta] 120 mg PO DAILY Baclofen [Lioresal] 20 mg PO BID PRN #6 tab PRN Reason: Muscle Spasm hydrALAZINE HCL 20 mg PO DAILY Discharge Medication List Metoprolol Tartrate [Lopressor] 150 mg PO DAILY 11/06/19 [History] Atorvastatin [Lipitor] 40 mg PO HS 06/18/20 [History] Folic Acid 1 mg PO DAILY@1200 #30 tab 12/23/20 [Rx] Thiamine [Vitamin B-1] 100 mg PO DAILY@1200 #30 tab 12/23/20 [Rx] Multivitamins, Thera [Multivitamin (formulary)] 1 tab PO DAILY@1200 01/09/21 [History] Triamcinolone 0.1% Ointment [Kenalog 0.1% Ointment] 1 applic TOPICAL BID 01/09/21 [History] Pyridoxine [Vitamin B-6] 50 mg PO DAILY #30 tab 01/12/21 [Rx] Cyanocobalamin [Vitamin B-12] 1,000 mcg PO DAILY #30 tab 03/03/21 [Rx] amLODIPine [Norvasc] 5 mg PO DAILY #30 tab 04/08/21 [Rx] traMADol HCl [Ultram] 50 mg PO QID PRN 3 Days #12 tab 04/08/21 [Rx] Calcium Carbonate [Tums] 1,500 mg PO DAILY 04/21/21 [History] Clopidogrel [Plavix] 75 mg PO DAILY #30 tab 04/26/21 [Rx] lisinopriL [Zestril] 20 mg PO DAILY #30 tab 04/26/21 [Rx] Magnesium Oxide [Mag-Ox] 1,200 mg PO DAILY 05/05/21 [History] Pantoprazole Sodium [Protonix] 80 mg PO DAILY 05/05/21 [History] Sucralfate [Carafate] 3 gm PO DAILY 05/05/21 [History] Fludrocortisone [Florinef] 0.2 mg PO DAILY #30 tablet 05/11/21 [Rx] Tamsulosin [Flomax] 0.4 mg PO DAILY 30 Days #30 cap 05/11/21 [Rx] Aspirin EC [Ecotrin Low Dose] 81 mg PO DAILY 05/28/21 [History] DULoxetine HCL [Cymbalta] 60 mg PO DAILY 30 Days #30 cap 06/06/21 [Rx] Famotidine [Pepcid] 20 mg PO BID 30 Days #60 tab 06/06/21 [Rx] Gabapentin [Neurontin] 300 mg PO DAILY #0 06/06/21 [Rx] Follow up Appointment(s)/Referral(s): Damon Rodriguez MD [STAFF PHYSICIAN] - 06/14/21 2:30 pm [facility] Visiting Nurse, [NON-STAFF] - 1 Week Patient Instructions/Handouts: Vertigo (ED), Head Injury (ED) Activity/Diet/Wound Care/Special Instructions: Activity Limited until follow-up Follow-up with primary care provider on discharge Continue taking medications as prescribed Follow up with orthopedics outpatient Continue heart healthy diet Discharge Disposition: HOME SELF-CARE
== END 2021-06-06 15:35 | disposition home or self-care (01) ==
LOC: EC 20:00 → 5NMEDONC 06-03 02:28
PROVIDERS: ADMIT Hospitalist; ATTEND Hospitalist
DX: R26.9 Unspecified abnormalities of gait and mobility (principal); R41.0 Disorientation, unspecified; R42 Dizziness and giddiness; W06.XXXA Fall from bed, initial encounter; I48.91 Unspecified atrial fibrillation; E11.9 Type 2 diabetes mellitus without complications; R53.1 Weakness; K21.9 Gastro-esophageal reflux disease without esophagitis; I95.9 Hypotension, unspecified; S46.911A Strain of unspecified muscle, fascia and tendon at shoulder and upper arm level, right arm, initial encounter; R51.9 Headache, unspecified; M25.552 Pain in left hip; M54.16 Radiculopathy, lumbar region; M25.78 Osteophyte, vertebrae; I10 Essential (primary) hypertension; G31.9 Degenerative disease of nervous system, unspecified; E78.5 Hyperlipidemia, unspecified; M19.90 Unspecified osteoarthritis, unspecified site; R29.6 Repeated falls; Z79.82 Long term (current) use of aspirin; Z79.02 Long term (current) use of antithrombotics/antiplatelets; Z88.1 Allergy status to other antibiotic agents; Z79.899 Other long term (current) drug therapy; Z88.0 Allergy status to penicillin; Y92.009 Unspecified place in unspecified non-institutional (private) residence as the place of occurrence of the external cause; Z16.24 Resistance to multiple antibiotics; Z86.14 Personal history of Methicillin resistant Staphylococcus aureus infection; Z87.01 Personal history of pneumonia (recurrent); Z90.13 Acquired absence of bilateral breasts and nipples; Z91.81 History of falling; Z71.3 Dietary counseling and surveillance; Z85.3 Personal history of malignant neoplasm of breast; Z87.891 Personal history of nicotine dependence; Z82.49 Family history of ischemic heart disease and other diseases of the circulatory system
CPT/HCPCS: 99285; 96374; 36415; 93005; 97162; 97166; 80053 ×2; 82140; 83735; 84132; 84484; 85025 ×2; 85610; 85730; 81003; 87040; 80306; 73502; 73030; 71045; 72125; 70450; G0378 ×4; G0480; J2270; 80320

== ENCOUNTER 2021-07-05 13:51 | Observation (INO) | payer MEDICARE ==
[2021-07-05 14:00] LABS: Glucose,Whole Blood 115 mg/dL (75-99)
[2021-07-05] MEDS ORDERED: NALOXONE 0.4 MG/ML 1 ML VIAL IM STA (14:08)
[2021-07-05] MEDS ORDERED: SODIUM CHLORIDE 0.9% 500 ML 500 ML IV ONE (14:08)
[2021-07-05 14:32] LABS: Basophils % (A) 0 %; Eosinophils # (A) 0.1 k/uL (0-0.7); Eosinophils % (A) 1 %; HCT 36.6 % (39.0-53.0); HGB 11.7 gm/dL (13.0-17.5); Lymphocytes # (A) 1.9 k/uL (1.0-4.8); Lymphocytes % (A) 20 %; MCH 30.6 pg (25.0-35.0); MCHC 32.1 g/dL (31.0-37.0); MCV 95.5 fL (80.0-100.0); Mean Platelet Volume 7.5; Monocytes # (A) 0.6 k/uL (0-1.0); Monocytes % (A) 6 %; Neutrophils # (A) 6.8 k/uL (1.3-7.7); Neutrophils % (A) 71 %; Platelet Count 269 k/uL (150-450); RBC 3.83 m/uL (4.30-5.90); RDW 14.1 % (11.5-15.5); WBC 9.6 k/uL (3.8-10.6)
[2021-07-05 14:41] LABS: ALT 15 U/L (4-49); AST 19 U/L (17-59); African American GFR (CKD) 69 (>60 ml/min/1.73 sqM); Albumin 3.7 g/dL (3.5-5.0); Alcohol <10 mg/dL; Alkaline Phosphatase 69 U/L (38-126); Anion Gap 9 mmol/L; Blood Urea Nitrogen 25 mg/dL (9-20); Carbon Dioxide 31 mmol/L (22-30); Chloride 100 mmol/L (98-107); Glucose 117 mg/dL (74-99); INR 0.9 (<1.2); Non-African American GFR(CKD) 60 (>60 ml/min/1.73 sqM); Partial Thromboplastin Time 23.1 sec (22.0-30.0); Potassium 3.6 mmol/L (3.5-5.1); Prothrombin Time 10.2 sec (9.0-12.0); Sodium 140 mmol/L (137-145); Total Bilirubin 0.5 mg/dL (0.2-1.3); Total Protein 6.5 g/dL (6.3-8.2)
--- NOTE | 2021-07-05 15:30 | CT ---
EXAMINATION TYPE: CT brain wo con DATE OF EXAM: 07/05/2021 COMPARISON: 06/02/2021 HISTORY: 71-year-old male confusion, Altered mental status. TECHNIQUE: Examination was done in axial plane without intravenous contrast. Coronal and sagittal r econstructions performed. CT DLP: 1114.4 mGycm Automated exposure control for dose reduction was used. FINDINGS: There is no evidence of acute intracranial hemorrhage, acute ischemic changes, mass, mass-effect, or extra-axial fluid collection. There is no effacement of cerebral sulci or basal subarachnoid cister ns. There is no hydrocephalus. There is no midline shift. Clark-white matter distinction is preserv ed. There is a craniotomy flap along the right cerebellar convexity with some bulging CSF through the def ect also seen previously. Underlying small resection cavity. Partially sella. Paranasal sinuses and mastoid air cells well pneumatized. Orbits and globes are intact. Rightward nasal septal deviation. IMPRESSION: Small craniectomy defect right cerebellar convexity with some unchanged bulging CSF across the defect . No acute intracranial abnormality seen.
--- NOTE | 2021-07-05 15:32 | XR ---
EXAMINATION TYPE: XR chest 1V portable DATE OF EXAM: 07/05/2021 Comparison: 05/30/2021 Clinical History: 71-year-old male confusion, altered mental status Findings: Heart borderline enlarged. Large patient body habitus and portable technique results in hazy bilatera l densities. No frnacoise consolidation or pleural effusion. Some strandy basilar atelectasis is noted. Impression: Limited by portable technique and large body habitus. Borderline heart size. No definite acute proces s.
[2021-07-05 18:37] LABS: Appearance,Urine Clear (Clear); Bilirubin,Urine Negative (Negative); Blood,Urine Negative (Negative); Color,Urine Light Yellow; Glucose,Urine (UA) Negative (Negative); Ketones,Urine Negative (Negative); Leukocyte Esterase,Urine Negative (Negative); Nitrite,Urine Negative (Negative); PH, Urine 6.5 (5.0-8.0); Protein,Urine Negative (Negative); Specific Gravity,Urine 1.006 (1.001-1.035); Urobilinogen,Urine <2.0 mg/dL (<2.0)
--- NOTE | 2021-07-05 18:41 | ED ---
Altered Mental Status HPI - General Chief Complaint: Altered Mental Status Stated Complaint: AMS Time Seen by Provider: 07/05/21 13:53 Source: EMS Mode of arrival: EMS Limitations: altered mental status - History of Present Illness Initial Comments: Patient presents with altered mental status. He was found like this by family. Is not clear how long he has been down for. He doesn't answer questions and provides no further information. - Related Data Home Medications Medication Instructions Recorded Confirmed Metoprolol Tartrate [Lopressor] 150 mg PO DAILY 11/06/19 07/05/21 Atorvastatin [Lipitor] 40 mg PO HS 06/18/20 07/05/21 Multivitamins, Thera [Multivitamin 1 tab PO DAILY@1200 01/09/21 07/05/21 (formulary)] Triamcinolone 0.1% Ointment 1 applic TOPICAL BID 01/09/21 07/05/21 [Kenalog 0.1% Ointment] Calcium Carbonate [Tums] 1,500 mg PO DAILY 04/21/21 07/05/21 Magnesium Oxide [Mag-Ox] 1,200 mg PO DAILY 05/05/21 07/05/21 Pantoprazole Sodium [Protonix] 80 mg PO DAILY 05/05/21 07/05/21 Sucralfate [Carafate] 3 gm PO DAILY 05/05/21 07/05/21 Aspirin EC [Ecotrin Low Dose] 81 mg PO DAILY 05/28/21 07/05/21 Previous Rx's Medication Instructions Recorded Folic Acid 1 mg PO DAILY@1200 #30 tab 12/23/20 Thiamine [Vitamin B-1] 100 mg PO DAILY@1200 #30 tab 12/23/20 Pyridoxine [Vitamin B-6] 50 mg PO DAILY #30 tab 01/12/21 Cyanocobalamin [Vitamin B-12] 1,000 mcg PO DAILY #30 tab 03/03/21 amLODIPine [Norvasc] 5 mg PO DAILY #30 tab 04/08/21 traMADol HCl [Ultram] 50 mg PO QID PRN 3 Days #12 tab 04/08/21 Clopidogrel [Plavix] 75 mg PO DAILY #30 tab 04/26/21 lisinopriL [Zestril] 20 mg PO DAILY #30 tab 04/26/21 Fludrocortisone [Florinef] 0.2 mg PO DAILY #30 tablet 05/11/21 Tamsulosin [Flomax] 0.4 mg PO DAILY 30 Days #30 cap 05/11/21 DULoxetine HCL [Cymbalta] 60 mg PO DAILY 30 Days #30 cap 06/06/21 Famotidine [Pepcid] 20 mg PO BID 30 Days #60 tab 06/06/21 Gabapentin [Neurontin] 300 mg PO DAILY #0 06/06/21 Allergies Allergy/AdvReac Type Severity Reaction Status Date / Time cephalexin monohydrate Allergy Anaphylaxis Verified 07/05/21 16:35 [From Keflex] Cephalosporins Allergy Anaphylaxis Verified 07/05/21 16:35 Penicillins Allergy Anaphylaxis Verified 07/05/21 16:35 Review of Systems ROS Statement: Those systems with pertinent positive or pertinent negative responses have been documented in the HPI. ROS Other: All systems not noted in ROS Statement are negative. Past Medical History Past Medical History: Atrial Fibrillation, Diabetes Mellitus, GERD/Reflux, Hyper lipidemia, Hypertension, Osteoarthritis (OA), Pneumonia Additional Past Medical History / Comment(s): FELL 07/09/19 FX LT RADIUS, FREQUENT FALLS-REASON UNKNOWN. 03-10-16 FELL/FX RT FIBULA, VERTIGO , chronic headaches, BREAST CANCER History of Any Multi-Drug Resistant Organisms: CRE, MRSA Date of last positivie culture/infection: MRSA-03/11 MDRO Source:: Source unknown-MRSA Past Surgical History: Back Surgery, Breast Surgery, Orthopedic Surgery Additional Past Surgical History / Comment(s): Bilateral mastectomy with right sided lymp node removal due to cancer, R knee cap removed, Back surgery for herniated disc., Brain stem surgery for decompression-for dizziness, right ankle ORIF, bilateral wrist fractures SX Past Anesthesia/Blood Transfusion Reactions: No Reported Reaction Past Psychological History: No Psychological Hx Reported Smoking Status: Former smoker Past Alcohol Use History: None Reported Past Drug Use History: None Reported - Past Family History Father History Unknown: Yes Family Medical History: Congestive Heart Failure (CHF) Additional Family Medical History / Comment(s): at 68. Mother History Unknown: Yes Family Medical History: Hypertension Additional Family Medical History / Comment(s): Pulmonary hypertension. at 78. General Exam Limitations: altered mental status Head exam: Present: atraumatic Eye exam: Present: normal appearance ENT exam: Present: normal exam Neck exam: Present: normal inspection. Absent: meningismus Respiratory exam: Present: normal lung sounds bilaterally Cardiovascular Exam: Present: regular rate GI/Abdominal exam: Present: soft. Absent: tenderness Extremities exam: Present: normal inspection Back exam: Present: normal inspection Neurological exam: Present: other (Altered mental status) Psychiatric exam: Present: other (Nonresponsive) Skin exam: Present: warm, dry Course Vital Signs 07/05/21 07/05/21 07/05/21 13:55 14:40 16:00 Temperature 97.9 F Pulse Rate 52 L 62 Respiratory 18 16 18 Rate Blood Pressure 112/77 127/47 O2 Sat by Pulse 98 Oximetry 07/05/21 18:23 Temperature Pulse Rate 54 L Respiratory 18 Rate Blood Pressure 123/43 O2 Sat by Pulse 98 Oximetry Medical Decision Making - Medical Decision Making Patient presents with altered mental status. He has shown minimal improvement in the emerge department. His family states that he is acting totally different from baseline. He will be admitted to the hospital. - Lab Data Result diagrams: 07/05/21 13:53 07/05/21 13:53 Lab Results 07/05/21 07/05/21 07/05/21 Range/Units 13:53 13:53 13:53 WBC 9.6 (3.8-10.6) k/uL RBC 3.83 L (4.30-5.90) m/uL Hgb 11.7 L (13.0-17.5) gm/dL Hct 36.6 L (39.0-53.0) % MCV 95.5 (80.0-100.0) fL MCH 30.6 (25.0-35.0) pg MCHC 32.1 (31.0-37.0) g/dL RDW 14.1 (11.5-15.5) % Plt Count 269 (150-450) k/uL MPV 7.5 Neutrophils % 71 % Lymphocytes % 20 % Monocytes % 6 % Eosinophils % 1 % Basophils % 0 % Neutrophils # 6.8 (1.3-7.7) k/uL Lymphocytes # 1.9 (1.0-4.8) k/uL Monocytes # 0.6 (0-1.0) k/uL Eosinophils # 0.1 (0-0.7) k/uL Basophils # 0.0 (0-0.2) k/uL PT 10.2 (9.0-12.0) sec INR 0.9 (<1.2) APTT 23.1 (22.0-30.0) sec Sodium 140 (137-145) mmol/L Potassium 3.6 (3.5-5.1) mmol/L Chloride 100 (98-107) mmol/L Carbon Dioxide 31 H (22-30) mmol/L Anion Gap 9 mmol/L BUN 25 H (9-20) mg/dL Creatinine 1.21 (0.66-1.25) mg/dL Est GFR (CKD-EPI)AfAm 69 (>60 ml/min/1.73 sqM) Est GFR (CKD-EPI)NonAf 60 (>60 ml/min/1.73 sqM) Glucose 117 H (74-99) mg/dL POC Glucose (mg/dL) (75-99) mg/dL POC Glu Scientific Illustrator ID Calcium 9.0 (8.4-10.2) mg/dL Total Bilirubin 0.5 (0.2-1.3) mg/dL AST 19 (17-59) U/L ALT 15 (4-49) U/L Alkaline Phosphatase 69 (38-126) U/L Troponin I (0.000-0.034) ng/mL Total Protein 6.5 (6.3-8.2) g/dL Albumin 3.7 (3.5-5.0) g/dL Urine Color Urine Appearance (Clear) Urine pH (5.0-8.0) Ur Specific [place] (1.001-1.035) Urine Protein (Negative) Urine Glucose (UA) (Negative) Urine Ketones (Negative) Urine Blood (Negative) Urine Nitrite (Negative) Urine Bilirubin (Negative) Urine Urobilinogen (<2.0) mg/dL Ur Leukocyte Esterase (Negative) Serum Alcohol <10 mg/dL 07/05/21 07/05/21 07/05/21 Range/Units 13:53 13:58 18:22 WBC (3.8-10.6) k/uL RBC (4.30-5.90) m/uL Hgb (13.0-17.5) gm/dL Hct (39.0-53.0) % MCV (80.0-100.0) fL MCH (25.0-35.0) pg MCHC (31.0-37.0) g/dL RDW (11.5-15.5) % Plt Count (150-450) k/uL MPV Neutrophils % % Lymphocytes % % Monocytes % % Eosinophils % % Basophils % % Neutrophils # (1.3-7.7) k/uL Lymphocytes # (1.0-4.8) k/uL Monocytes # (0-1.0) k/uL Eosinophils # (0-0.7) k/uL Basophils # (0-0.2) k/uL PT (9.0-12.0) sec INR (<1.2) APTT (22.0-30.0) sec Sodium (137-145) mmol/L Potassium (3.5-5.1) mmol/L Chloride (98-107) mmol/L Carbon Dioxide (22-30) mmol/L Anion Gap mmol/L BUN (9-20) mg/dL Creatinine (0.66-1.25) mg/dL Est GFR (CKD-EPI)AfAm (>60 ml/min/1.73 sqM) Est GFR (CKD-EPI)NonAf (>60 ml/min/1.73 sqM) Glucose (74-99) mg/dL POC Glucose (mg/dL) 115 H (75-99) mg/dL POC Glu Scientific Illustrator ID Eh Calloway Calcium (8.4-10.2) mg/dL Total Bilirubin (0.2-1.3) mg/dL AST (17-59) U/L ALT (4-49) U/L Alkaline Phosphatase (38-126) U/L Troponin I <0.012 (0.000-0.034) ng/mL Total Protein (6.3-8.2) g/dL Albumin (3.5-5.0) g/dL Urine Color Light Yellow Urine Appearance Clear (Clear) Urine pH 6.5 (5.0-8.0) Ur Specific [place] 1.006 (1.001-1.035) Urine Protein Negative (Negative) Urine Glucose (UA) Negative (Negative) Urine Ketones Negative (Negative) Urine Blood Negative (Negative) Urine Nitrite Negative (Negative) Urine Bilirubin Negative (Negative) Urine Urobilinogen <2.0 (<2.0) mg/dL Ur Leukocyte Esterase Negative (Negative) Serum Alcohol mg/dL 07/05/21 18:41 Twelve-lead EKG shows ventricular rate 52 bpm, normal DE interval and QRS complexes, no ST elevation or depression, interpreted by me as sinus bradycardia. Disposition Clinical Impression: Altered mental status Disposition: ADMITTED IP TO THIS HOSP Condition: Fair Referrals: Damon Rodriguez MD [Primary Care Provider] - 1-2 days
[2021-07-05] MEDS ORDERED: ONDANSETRON 4 MG/2 ML VIAL IVP PRN (18:44)
[2021-07-05] MEDS ORDERED: TEMAZEPAM 15 MG CAP PO PRN (18:44)
[2021-07-05] MEDS ORDERED: NALOXONE 0.4 MG/ML 1 ML VIAL IV PRN (18:44)
[2021-07-05 18:48] LABS: Amphetamine Screen,Urine Not Detected (NotDetected); Barbiturate Screen,Urine Not Detected (NotDetected); Benzodiazepines Screen,Urine Not Detected (NotDetected); Cocaine Screen,Urine Not Detected (NotDetected); Methadone Screen, Urine Not Detected (NotDetected); Opiate Screen,Urine Not Detected (NotDetected); Oxycodone Screen, Urine Not Detected (NotDetected); Phencyclidine Screen,Urine Not Detected (NotDetected); Tricyclic Antidepressant,Urine Not Detected (NotDetected); Urn Cannabinoid Scrn Not Detected (NotDetected)
[2021-07-06] MEDS: ATORVASTATIN 40 MG TAB PO SCH ×2 (03:36→21:45)
[2021-07-06] MEDS: MAGNESIUM OXIDE 400 MG TAB PO SCH (08:40)
[2021-07-06] MEDS: TAMSULOSIN 0.4 MG CAP.ER.24H PO SCH (08:40)
[2021-07-06] MEDS: GABAPENTIN 300 MG CAP PO SCH (08:40)
[2021-07-06] MEDS: METOPROLOL TARTRATE 50 MG TAB PO SCH ×3 (08:40→21:45)
[2021-07-06] MEDS: DULoxetine HCL 60 MG CAPSULE.DR PO SCH (08:40)
[2021-07-06] MEDS: CLOPIDOGREL 75 MG TAB PO SCH (08:40)
[2021-07-06] MEDS: ASPIRIN 81 MG PO SCH (08:40)
[2021-07-06] MEDS: CALCIUM CARBONATE 500 MG CHEWABLE PO SCH (08:40)
[2021-07-06] MEDS: PANTOPRAZOLE 40 MG TABLET PO SCH (08:41)
[2021-07-06] MEDS: lisinopriL 20 MG TAB PO SCH (08:41)
[2021-07-06] MEDS: SUCRALFATE 1 GM TAB PO SCH (08:41)
[2021-07-06] MEDS: CYANOCOBALAMIN 500 MCG TAB PO SCH (08:41)
[2021-07-06] MEDS: amLODIPine 5 MG TAB PO SCH (08:42)
[2021-07-06] MEDS: PYRIDOXINE 50 MG TAB PO SCH (08:42)
[2021-07-06] MEDS: FLUDROCORTISONE 0.1 MG TAB PO SCH (08:46)
[2021-07-06] MEDS: BUTALB/APAP/CAFF 50-325-40MG TAB PO PRN ×2 (11:15→21:51)
--- NOTE | 2021-07-06 11:51 | P.CNNES ---
History of Present Illness Consult date: 07/06/21 Requesting physician: Lars Neal Reason for Consult: altered mental status History of Present Illness: This is a 71-year-old gentleman with medical history of repeated episodes of hospital visits for his transient episodes of encephalopathy and felt unknown cause, benign positional vertigo s/p decompression right occipital, diabetes, chronic recurrent vertigo, chronic hedache, recurrent falls, paroxysmal atrial fibrillation not on anticoagulation but is on dual antiplatlets, hypertension who presented to the emergency department on 07/05/2021 for altered mental status. Some of the history is obtained from EMR. Patient stated he felt dizzy and fell. Per the ED note, the patient was found by family members to be altered and it unclear duration. He was not answering questions or providing any information to the ED team. Per the nurse he is doing much better today and is back to baseline. Patient stated he lives byself and denies following up with neurologist. He currently feels back to baseline. The patient is known to our neurological team and presents for the same issues of altered mental status and had extensive testing in the past. He was last seen on admission of first week of May 2020 and was seen last by Dr. Ryan on 06/01/2021. He had recent 2.5 hour EEG in our facility on 05/30/2021 and was reported as normal. Dr. Ryan felt it was encephalopathy of unknown etiology. Some of the work-up consisted of: Initial temp: 97.9. Has been afebrile so far. No leukocytosis noted CO2: 31, BUN 25, Glucose 117. CK is 36. Otherwise rest of research chemist panel unremarkable. U/A is negative for UTI. Urine drug screen: Not detected and serum alcohol is <10. CT head is reported as small cranietctomy defect right cerebellar convexity with some unchanged buldging CSF across the defect. No acute inctracranial abnormality seen. I personally reviewed CT head and agree with report. Past Medical History Past Medical History: Atrial Fibrillation, Diabetes Mellitus, GERD/Reflux, Hyperlipidemia, Hypertension, Osteoarthritis (OA), Pneumonia, Prostate Disorder Additional Past Medical History / Comment(s): Pt recently admitted to [facility] on 06/03/21 with fall/possible TIA. Other hx: FALLS, falls with fractuers, vertigo, surgeries for compressed brain stem at [facility], diet controlled diabetes/neuropathy bilateral feet and occasionally in both hands fingertips, bilateral mastectomies d/t benign tumors, chronic low back pain, chronic headaches, BPH, ulcerative colitis, benign colon polyps History of Any Multi-Drug Resistant Organisms: MRSA Date of last positivie culture/infection: MRSA-03/11 MDRO Source:: Source unknown-MRSA Past Surgical History: Back Surgery, Breast Surgery, Orthopedic Surgery Additional Past Surgical History / Comment(s): Bilateral mastectomy with right sided lymp node removal, R knee cap removed d/t fracture, Back surgery for herniated disc, brain stem surgeries for decompression-for dizziness and a surgery for spinal fluid leakage, right ankle ORIF, bilateral wrist fractures SX Past Anesthesia/Blood Transfusion Reactions: No Reported Reaction Smoking Status: Former smoker - Past Family History Father History Unknown: Yes Family Medical History: Congestive Heart Failure (CHF) Additional Family Medical History / Comment(s): at 68. Mother History Unknown: Yes Family Medical History: Hypertension Additional Family Medical History / Comment(s): Pulmonary hypertension. at 78. Medications and Allergies Home Medications Medication Instructions Recorded Confirmed Type Metoprolol Tartrate [Lopressor] 150 mg PO DAILY 11/06/19 07/05/21 History Atorvastatin [Lipitor] 40 mg PO HS 06/18/20 07/05/21 History Folic Acid 1 mg PO DAILY@1200 #30 tab 12/23/20 07/05/21 Rx Thiamine [Vitamin B-1] 100 mg PO DAILY@1200 #30 tab 12/23/20 07/05/21 Rx Multivitamins, Thera [Multivitamin 1 tab PO DAILY@1200 01/09/21 07/05/21 History (formulary)] Triamcinolone 0.1% Ointment 1 applic TOPICAL BID 01/09/21 07/05/21 History [Kenalog 0.1% Ointment] Pyridoxine [Vitamin B-6] 50 mg PO DAILY #30 tab 01/12/21 07/05/21 Rx Cyanocobalamin [Vitamin B-12] 1,000 mcg PO DAILY #30 tab 03/03/21 07/05/21 Rx amLODIPine [Norvasc] 5 mg PO DAILY #30 tab 04/08/21 07/05/21 Rx traMADol HCl [Ultram] 50 mg PO QID PRN 3 Days #12 tab 04/08/21 07/05/21 Rx Calcium Carbonate [Tums] 1,500 mg PO DAILY 04/21/21 07/05/21 History Clopidogrel [Plavix] 75 mg PO DAILY #30 tab 04/26/21 07/05/21 Rx lisinopriL [Zestril] 20 mg PO DAILY #30 tab 04/26/21 07/05/21 Rx Magnesium Oxide [Mag-Ox] 1,200 mg PO DAILY 05/05/21 07/05/21 History Pantoprazole Sodium [Protonix] 80 mg PO DAILY 05/05/21 07/05/21 History Sucralfate [Carafate] 3 gm PO DAILY 05/05/21 07/05/21 History Fludrocortisone [Florinef] 0.2 mg PO DAILY #30 tablet 05/11/21 07/05/21 Rx Tamsulosin [Flomax] 0.4 mg PO DAILY 30 Days #30 cap 05/11/21 07/05/21 Rx Aspirin EC [Ecotrin Low Dose] 81 mg PO DAILY 05/28/21 07/05/21 History DULoxetine HCL [Cymbalta] 60 mg PO DAILY 30 Days #30 cap 06/06/21 07/05/21 Rx Famotidine [Pepcid] 20 mg PO BID 30 Days #60 tab 06/06/21 07/05/21 Rx Gabapentin [Neurontin] 300 mg PO DAILY #0 06/06/21 07/05/21 Rx Allergies Allergy/AdvReac Type Severity Reaction Status Date / Time cephalexin monohydrate Allergy Anaphylaxis Verified 07/05/21 16:35 [From Keflex] Cephalosporins Allergy Anaphylaxis Verified 07/05/21 16:35 Penicillins Allergy Anaphylaxis Verified 07/05/21 16:35 Physical Examination - Vital Signs Vital Signs: Vital Signs Temp Pulse Pulse Resp BP BP Pulse Ox 07/06/21 08:00 98.3 F 62 16 126/57 95 07/06/21 05:53 57 L 16 147/82 96 07/06/21 04:28 56 L 18 122/64 96 07/05/21 23:00 51 L 16 108/69 98 07/05/21 21:00 52 L 16 116/42 98 07/05/21 18:23 54 L 18 123/43 98 07/05/21 16:00 62 18 127/47 07/05/21 14:40 16 07/05/21 13:55 97.9 F 52 L 18 112/77 98 Intake and Output 07/05/21 07/06/21 07/06/21 22:59 06:59 14:59 Other: Weight 108.862 kg GENERAL: The patient is lying in bed and is not in acute distress. CHEST: The heart rate is regular rate rhythm. No murmurs to auscultation. LUNG: Clear to auscultation bilaterally no wheezing noted throughout. Not labored breathing. ABDOMEN/GI: Bowel sounds present in all 4 quadrants. No tenderness to palpation throughout. NEUROLOGICAL: Higher mental function: The patient is awake, alert, oriented to self, place and time. Patient is following simple commands. No aphasia and no neglect. Cranial nerves: The pupils are round, equal and reactive to light. Visual bishop are full to confrontation throughout. Extraocular movement is intact no nystagmus is noted. Facial sensation is normal to touch throughout. The facial strength is normal throughout. Hearing is mildly to moderately decreased bilaterally to hand rub. Tongue is midline and moved [id number] without any difficulty. No dysarthria is noted. Shoulder shrug is normal bilaterally. Motor: Gait is deferred. The strength is bilateral hand jukebox operator is 5-. 5 over 5 throughout uppers. Lowers are 4+ to 5-. Normal tone and bulk. Cerebellum: Normal finger to nose bilaterally. Sensation: Sensation is normal to touch throughout. Reflexes (right/left): 2+ throughout. Plantars are mute bilaterally. Results - Laboratory Findings CBC and BMP: 07/05/21 13:53 07/05/21 13:53 Abnormal Lab Findings: Abnormal Labs 07/05/21 07/05/21 07/05/21 13:53 13:53 13:53 RBC 3.83 L Hgb 11.7 L Hct 36.6 L Carbon Dioxide 31 H BUN 25 H Glucose 117 H POC Glucose (mg/dL) Creatine Kinase 36 L 07/05/21 13:58 RBC Hgb Hct Carbon Dioxide BUN Glucose POC Glucose (mg/dL) 115 H Creatine Kinase Assessment and Plan Assessment: Encephalopathy of unknown etiology---back to baseline. Has repeated episodes of hospital visits for his transient episodes of encephalopathy. He had 2.5hour EEG about a month ago and was reported as normal. Diabetes History of benign positional vertigo s/p decompression right occipital Chronic recurrent vertigo Chronic hedache Recurrent falls Paroxysmal atrial fibrillation not on anticoagulation but is on dual antipl atlets Hypertension Plan: Patient is on ASA 81mg daily and Lipitor 40mg qhs (home medications). Continue neuro-checks. Ordered orthostatic vital. Otherwise, No further neurological work-up is needed since he is back to baseline and is known to our neurological team for his recurrent issues. The patient is known to our neurological team and presents for the same issues of altered mental status and had extensive testing in the past. He had recent 2.5 hour EEG in our facility on 05/30/2021 and was reported as normal. I recommend an epilepsy monitoring unit for 1-2 weeks especially since he has recurrent altered in mentation then improves. Patient was notified to follow-up with neurologist as outpatient within 1-2 weeks and recommend following-up with ENT as outpatient. The plan is discussed with patient and his nurse. Thank you for the consultation. Kareem Linder M.D. Neuro-Hospitalist Time with Patient: Greater than 30
--- NOTE | 2021-07-06 12:01 | P.HPIM ---
History of Present Illness H&P Date: 07/06/21 Chief Complaint: altered mental status Patient is a pleasant 71-year-old male that presented to the ER for syncope, falls, and altered mental status per family. Patient states he had passed out and hit his head on the table. Patient has a pertinent medical history of atrial fib, diabetes, GERD, hyperlipidemia, hypertension, memory impairment, osteoarthritis, chronic headache, chronic back pain, and history of multiple falls with fracture at home. Brain CT showed small craniectomy defect right cerebellar convexity with some unchanged bulging CFF across the defect, without acute findings. Neurology was consulted for altered mental status. Patient follows with specialist at [facility] after brain stem surgeries for decompression, has MRI scheduled at the end of the month for further evaluation. Review of Systems Constitutional: Reports weakness, Denies chills, Denies fever Ears, nose, mouth and throat: Reports headache, Reports vertigo Respiratory: Denies cough, Denies wheezing Gastrointestinal: Denies abdominal pain, Denies diarrhea, Denies vomiting Genitourinary: Denies dysuria, Denies urinary frequency Musculoskeletal: Reports frequent falls, Reports low back pain Integumentary: Denies change in hair/nails, Denies wounds Neurological: Reports headaches, Reports vertigo, Reports weakness, Denies visual changes Psychiatric: Denies anxiety, Denies memory loss Endocrine: Denies high blood sugars Hematologic/Lymphatic: Reports easy bruising Allergic/Immunologic: Denies angioedema Past Medical History Past Medical History: Atrial Fibrillation, Diabetes Mellitus, GERD/Reflux, Hyperlipidemia, Hypertension, Osteoarthritis (OA), Pneumonia, Prostate Disorder Additional Past Medical History / Comment(s): Pt recently admitted to [facility] on 06/03/21 with fall/possible TIA. Other hx: FALLS, falls with fractuers, vertigo, surgeries for compressed brain stem at [facility], diet controlled diabetes/neuropathy bilateral feet and occasionally in both hands fingertips, bilateral mastectomies d/t benign tumors, chronic low back pain, chronic headaches, BPH, ulcerative colitis, benign colon polyps History of Any Multi-Drug Resistant Organisms: MRSA Date of last positivie culture/infection: MRSA-03/11 MDRO Source:: Source unknown-MRSA Past Surgical History: Back Surgery, Breast Surgery, Orthopedic Surgery Additional Past Surgical History / Comment(s): Bilateral mastectomy with right sided lymp node removal, R knee cap removed d/t fracture, Back surgery for herniated disc, brain stem surgeries for decompression-for dizziness and a surge ry for spinal fluid leakage, right ankle ORIF, bilateral wrist fractures SX Past Anesthesia/Blood Transfusion Reactions: No Reported Reaction Smoking Status: Former smoker - Past Family History Father History Unknown: Yes Family Medical History: Congestive Heart Failure (CHF) Additional Family Medical History / Comment(s): at 68. Mother History Unknown: Yes Family Medical History: Hypertension Additional Family Medical History / Comment(s): Pulmonary hypertension. at 78. Medications and Allergies Home Medications Medication Instructions Recorded Confirmed Type Metoprolol Tartrate [Lopressor] 150 mg PO DAILY 11/06/19 07/05/21 History Atorvastatin [Lipitor] 40 mg PO HS 06/18/20 07/05/21 History Folic Acid 1 mg PO DAILY@1200 #30 tab 12/23/20 07/05/21 Rx Thiamine [Vitamin B-1] 100 mg PO DAILY@1200 #30 tab 12/23/20 07/05/21 Rx Multivitamins, Thera [Multivitamin 1 tab PO DAILY@1200 01/09/21 07/05/21 History (formulary)] Triamcinolone 0.1% Ointment 1 applic TOPICAL BID 01/09/21 07/05/21 History [Kenalog 0.1% Ointment] Pyridoxine [Vitamin B-6] 50 mg PO DAILY #30 tab 01/12/21 07/05/21 Rx Cyanocobalamin [Vitamin B-12] 1,000 mcg PO DAILY #30 tab 03/03/21 07/05/21 Rx amLODIPine [Norvasc] 5 mg PO DAILY #30 tab 04/08/21 07/05/21 Rx traMADol HCl [Ultram] 50 mg PO QID PRN 3 Days #12 tab 04/08/21 07/05/21 Rx Calcium Carbonate [Tums] 1,500 mg PO DAILY 04/21/21 07/05/21 History Clopidogrel [Plavix] 75 mg PO DAILY #30 tab 04/26/21 07/05/21 Rx lisinopriL [Zestril] 20 mg PO DAILY #30 tab 04/26/21 07/05/21 Rx Magnesium Oxide [Mag-Ox] 1,200 mg PO DAILY 05/05/21 07/05/21 History Pantoprazole Sodium [Protonix] 80 mg PO DAILY 05/05/21 07/05/21 History Sucralfate [Carafate] 3 gm PO DAILY 05/05/21 07/05/21 History Fludrocortisone [Florinef] 0.2 mg PO DAILY #30 tablet 05/11/21 07/05/21 Rx Tamsulosin [Flomax] 0.4 mg PO DAILY 30 Days #30 cap 05/11/21 07/05/21 Rx Aspirin EC [Ecotrin Low Dose] 81 mg PO DAILY 05/28/21 07/05/21 History DULoxetine HCL [Cymbalta] 60 mg PO DAILY 30 Days #30 cap 06/06/21 07/05/21 Rx Famotidine [Pepcid] 20 mg PO BID 30 Days #60 tab 06/06/21 07/05/21 Rx Gabapentin [Neurontin] 300 mg PO DAILY #0 06/06/21 07/05/21 Rx Allergies Allergy/AdvReac Type Severity Reaction Status Date / Time cephalexin monohydrate Allergy Anaphylaxis Verified 07/05/21 16:35 [From Keflex] Cephalosporins Allergy Anaphylaxis Verified 07/05/21 16:35 Penicillins Allergy Anaphylaxis Verified 07/05/21 16:35 Physical Exam Vitals: Vital Signs Temp Pulse Pulse Resp BP BP Pulse Ox 07/06/21 08:00 98.3 F 62 16 126/57 95 07/06/21 05:53 57 L 16 147/82 96 07/06/21 04:28 56 L 18 122/64 96 07/05/21 23:00 51 L 16 108/69 98 07/05/21 21:00 52 L 16 116/42 98 07/05/21 18:23 54 L 18 123/43 98 07/05/21 16:00 62 18 127/47 07/05/21 14:40 16 07/05/21 13:55 97.9 F 52 L 18 112/77 98 Intake and Output 07/05/21 07/06/21 07/06/21 22:59 06:59 14:59 Other: Weight 108.862 kg - Constitutional General appearance: cooperative, obese - EENT Eyes: EOMI, PERRLA ENT: normal oropharynx - Neck Neck: normal ROM - Respiratory Respiratory: bilateral: CTA - Cardiovascular Heart rate: 60 Rhythm: regular Heart sounds: normal: S1, S2 radial pulse Peripheral Pulses: bilateral: Normal - Gastrointestinal General gastrointestinal: normal bowel sounds, soft - Integumentary Integumentary: normal - Neurologic Neurologic: CNII-XII intact - Musculoskeletal Musculoskeletal: generalized weakness - Psychiatric Psychiatric: A&O x's 3, appropriate affect, intact judgment & insight Results CBC & Chem 7: 07/05/21 13:53 07/05/21 13:53 Labs: Abnormal Lab Results - Last 24 Hours (Table) 07/05/21 07/05/21 07/05/21 Range/Units 13:53 13:53 13:53 RBC 3.83 L (4.30-5.90) m/uL Hgb 11.7 L (13.0-17.5) gm/dL Hct 36.6 L (39.0-53.0) % Carbon Dioxide 31 H (22-30) mmol/L BUN 25 H (9-20) mg/dL Glucose 117 H (74-99) mg/dL POC Glucose (mg/dL) (75-99) mg/dL Creatine Kinase 36 L (55-170) U/L 07/05/21 Range/Units 13:58 RBC (4.30-5.90) m/uL Hgb (13.0-17.5) gm/dL Hct (39.0-53.0) % Carbon Dioxide (22-30) mmol/L BUN (9-20) mg/dL Glucose (74-99) mg/dL POC Glucose (mg/dL) 115 H (75-99) mg/dL Creatine Kinase (55-170) U/L Chest x-ray: report reviewed CT scan - chest: report reviewed Thrombosis Risk Factor Assmnt - DVT/VTE Prophylaxis DVT/VTE Prophylaxis: Contraindicated - See note (high fall risk) - Choose All That Apply Any of the Below Risk Factors Present?: Yes Each Factor Represents 1 point: Obesity (BMI >25) Other Risk Factors: Yes Each Risk Factor Represents 2 Points: Age 61-74 years Other congenital or acquired thrombophilia - If yes, enter type in comment: No Thrombosis Risk Factor Assessment Total Risk Factor Score: 3 Thrombosis Risk Factor Assessment Level: Moderate Risk Assessment and Plan Assessment: Altered mental status, resolved Vertigo Multiple falls at home Headaches, chronic migraines GERD Hypertension Hyperlipidemia History of osteoarthritis and chronic low back pain History of memory impairment History of brain stem decompression Plan: mentation back to baseline, continue to monitor orientation Neurology consult for altered mental status Maintain fall precautions Continue to assess vital signs fioricet for migraines Tramadol home regimen of 4 times a day reordered. Further recommendations to come based on patient's clinical course Time with Patient: Greater than 30
[2021-07-06 12:28] LABS: Glucose,Whole Blood 184 mg/dL (75-99)
[2021-07-06] MEDS: FOLIC ACID 1 MG TAB PO SCH (12:31)
[2021-07-06] MEDS: INSULIN ASPART (NovoLOG) 100 UNIT/ML VIAL SQ SCH ×3 (12:31→21:45)
[2021-07-06] MEDS: THIAMINE 100 MG TAB PO SCH (12:31)
[2021-07-06] MEDS: MULTIVITAMINS, THERA 1 EACH TAB PO SCH (12:31)
[2021-07-06 17:07] LABS: Glucose,Whole Blood 109 mg/dL (75-99)
[2021-07-06] MEDS: traMADol 50 MG TAB PO PRN (17:57)
[2021-07-06 20:47] LABS: Glucose,Whole Blood 229 mg/dL (75-99)
[2021-07-06] MEDS: FAMOTIDINE 20 MG TAB PO SCH (21:45)
[2021-07-07] MEDS: traMADol 50 MG TAB PO PRN ×4 (01:23→21:41)
[2021-07-07 07:29] LABS: Glucose,Whole Blood 213 mg/dL (75-99)
[2021-07-07] MEDS: INSULIN ASPART (NovoLOG) 100 UNIT/ML VIAL SQ SCH ×4 (08:24→21:43)
[2021-07-07] MEDS: METOPROLOL TARTRATE 50 MG TAB PO SCH ×3 (08:25→21:43)
[2021-07-07] MEDS: CLOPIDOGREL 75 MG TAB PO SCH (08:25)
[2021-07-07] MEDS: ASPIRIN 81 MG PO SCH (08:25)
[2021-07-07] MEDS: CYANOCOBALAMIN 500 MCG TAB PO SCH (08:25)
[2021-07-07] MEDS: amLODIPine 5 MG TAB PO SCH (08:25)
[2021-07-07] MEDS: MAGNESIUM OXIDE 400 MG TAB PO SCH (08:25)
[2021-07-07] MEDS: SUCRALFATE 1 GM TAB PO SCH (08:26)
[2021-07-07] MEDS: FAMOTIDINE 20 MG TAB PO SCH ×2 (08:26→21:41)
[2021-07-07] MEDS: TAMSULOSIN 0.4 MG CAP.ER.24H PO SCH (08:26)
[2021-07-07] MEDS: DULoxetine HCL 60 MG CAPSULE.DR PO SCH (08:26)
[2021-07-07] MEDS: CALCIUM CARBONATE 500 MG CHEWABLE PO SCH (08:26)
[2021-07-07] MEDS: PANTOPRAZOLE 40 MG TABLET PO SCH (08:26)
[2021-07-07] MEDS: GABAPENTIN 300 MG CAP PO SCH (08:26)
[2021-07-07] MEDS: lisinopriL 20 MG TAB PO SCH (08:26)
[2021-07-07] MEDS: PYRIDOXINE 50 MG TAB PO SCH (08:27)
[2021-07-07] MEDS: BUTALB/APAP/CAFF 50-325-40MG TAB PO PRN ×2 (09:21→19:40)
[2021-07-07] MEDS: FLUDROCORTISONE 0.1 MG TAB PO SCH (09:21)
[2021-07-07 11:26] LABS: Glucose,Whole Blood 124 mg/dL (75-99)
--- NOTE | 2021-07-07 11:30 | P.PN ---
Subjective Progress Note Date: 07/07/21 Principal diagnosis: Altered mental status Patient is a pleasant 71-year-old male that presented to the ER for syncope, falls, and altered mental status per family. Patient states he had passed out and hit his head on the table. Patient has a pertinent medical history of atrial fib, diabetes, GERD, hyperlipidemia, hypertension, memory impairment, osteoarthritis, chronic headache, chronic back pain, and history of multiple falls with fracture at home. Brain CT showed small craniectomy defect right cerebellar convexity with some unchanged bulging CFF across the defect, without acute findings. Neurology was consulted for altered mental status. Patient follows with specialist at [facility] after brain stem surgeries for decompression, has MRI scheduled at the end of the month for further evaluation. 07/07/2021 Patient was seen and assessed at bedside. Patient was resting comfortably in bed and in no acute distress. Patient denies shortness of breath, chest pain, fever. Patient reports pain throughout his body, but just took pain medication and that has not started working yet. Discussed having MRI completed that was scheduled to have outpatient later this month. MRI is ordered. Discussed discharge planning with outpatient case manager, will attempt to get patient rehab. Plan on discharge tomorrow. Objective - Vital Signs Vital signs: Vital Signs Temp 97.3 F L 07/07/21 08:00 Pulse 59 L 07/07/21 08:00 Resp 19 07/07/21 08:00 BP 136/78 07/07/21 08:00 Pulse Ox 96 07/07/21 08:00 Intake & Output 07/06/21 07/07/21 07/07/21 18:59 06:59 18:59 Output Total 300 Balance -300 Weight 108.862 kg Output: Urine 300 Other: Voiding Method Urinal Urinal # Voids 1 - Constitutional General appearance: Present: no acute distress, obese - EENT Eyes: Present: EOMI, PERRLA ENT: Present: normal oropharynx - Neck Neck: Present: normal ROM - Respiratory Respiratory: bilateral: diminished - Cardiovascular Heart rate: 60 Rhythm: regular Heart sounds: normal: S1, S2 - Peripheral pulses radial pulse Peripheral Pulses: bilateral: Normal - Gastrointestinal General gastrointestinal: Present: normal bowel sounds, soft - Integumentary Integumentary: Present: normal - Neurologic Neurologic: Present: CNII-XII intact - Musculoskeletal Musculoskeletal: Present: gait normal - Psychiatric Psychiatric: Present: A&O x's 3, appropriate affect, intact judgment & insight - Labs CBC & Chem 7: 07/05/21 13:53 07/05/21 13:53 Labs: Abnormal Lab Results - Last 24 Hours (Table) 07/06/21 07/06/21 07/06/21 Range/Units 12:26 17:05 20:46 POC Glucose (mg/dL) 184 H 109 H 229 H (75-99) mg/dL Hemoglobin A1c (0.0-6.0) % 07/07/21 07/07/21 Range/Units 06:14 07:27 POC Glucose (mg/dL) 213 H (75-99) mg/dL Hemoglobin A1c 6.3 H (0.0-6.0) % Assessment and Plan Assessment: Altered mental status, resolved Vertigo Multiple falls at home Headaches, chronic migraines GERD Hypertension Hyperlipidemia History of osteoarthritis and chronic low back pain History of memory impairment History of brain stem decompression Plan: mentation back to baseline, continue to monitor orientation Neurology consult for altered mental status, no further work up recommended, will proceed with MRI Maintain fall precautions Continue to assess vital signs fioricet for migraines Tramadol home regimen of 4 times a day reordered. Further recommendations to come based on patient's clinical course Time with Patient: Greater than 30
[2021-07-07] MEDS: THIAMINE 100 MG TAB PO SCH (13:15)
[2021-07-07] MEDS: FOLIC ACID 1 MG TAB PO SCH (13:15)
[2021-07-07] MEDS: MULTIVITAMINS, THERA 1 EACH TAB PO SCH (13:15)
[2021-07-07 16:52] LABS: Glucose,Whole Blood 143 mg/dL (75-99)
--- NOTE | 2021-07-07 16:58 | P.PN ---
Subjective Progress Note Date: 07/07/21 The patient is seen at bedside and feel he has diffuse generalized pain. Otherwise he is about the same. Objective - Vital Signs Vital signs: Vital Signs Temp 97.2 F L 07/07/21 14:00 Pulse 57 L 07/07/21 14:00 Resp 19 07/07/21 14:00 BP 113/77 07/07/21 14:00 Pulse Ox 95 07/07/21 14:00 Intake & Output 07/06/21 07/07/21 07/07/21 18:59 06:59 18:59 Output Total 300 Balance -300 Weight 108.862 kg Output: Urine 300 Other: Voiding Method Urinal Urinal # Voids 1 - Exam GENERAL: The patient is lying in bed and is not in acute distress. NEUROLOGICAL: Higher mental function: The patient is awake, alert, oriented to self, place and time. Patient is following simple commands. No aphasia and no neglect. Cranial nerves: The pupils are round, equal and reactive to light. Visual bishop are full to confrontation throughout. Extraocular movement is intact no nystagmus is noted. Facial sensation is normal to touch throughout. The facial strength is normal throughout. Tongue is midline and moved [id number] without any difficulty. No dysarthria is noted. Shoulder shrug is normal bilaterally. Motor: Gait is deferred. The strength is bilateral hand manager document is 5-. 5 over 5 throughout uppers. Lowers are 4+ to 5-. Normal tone and bulk. Cerebellum: Normal finger to nose bilaterally. Sensation: Sensation is normal to touch throughout. Reflexes (right/left): 2+ throughout. Plantars are mute bilaterally. Orthostatic vitals: Supine bp 102/61 with HR 61 while sitting is 102/61 with HR 62. - Labs CBC & Chem 7: 07/05/21 13:53 07/05/21 13:53 Labs: Abnormal Lab Results - Last 24 Hours (Table) 07/06/21 07/06/21 07/07/21 Range/Units 17:05 20:46 06:14 POC Glucose (mg/dL) 109 H 229 H (75-99) mg/dL Hemoglobin A1c 6.3 H (0.0-6.0) % 07/07/21 07/07/21 07/07/21 Range/Units 07:27 11:25 16:51 POC Glucose (mg/dL) 213 H 124 H 143 H (75-99) mg/dL Hemoglobin A1c (0.0-6.0) % Assessment and Plan Assessment: Encephalopathy of unknown etiology---back to baseline. Has repeated episodes of hospital visits for his transient episodes of encephalopathy. He had 2.5hour EEG about a month ago and was reported as normal. Diabetes History of benign positional vertigo s/p decompression right occipital Chronic recurrent vertigo Chronic hedache Recurrent falls Paroxysmal atrial fibrillation not on anticoagulation but is on dual antiplatlets Hypertension Plan: Patient is on ASA 81mg daily and Lipitor 40mg qhs (home medications). Continue neuro-checks. No further neurological work-up is needed since he is back to baseline and is known to our neurological team for his recurrent issues. The patient is known to our neurological team and presents for the same issues of altered mental status and had extensive testing in the past. He had recent 2.5 hour EEG in our facility on 05/30/2021 and was reported as normal. I recommend an epilepsy monitoring unit for 1-2 weeks especially since he has recurrent altered in mentation then improves. Patient was notified to follow-up with neurologist as outpatient within 1-2 weeks and recommend following-up with ENT as outpatient. There is no additional neurological work-up needed. Patient is clear for discharge from neurological perspective. Please notify our team if any further concerns. The plan is discussed with patient and his nurse. Kareem Linder M.D. Neuro-Hospitalist Time with Patient: Less than 30
--- NOTE | 2021-07-07 17:22 | P.DS ---
Providers Date of admission: 07/05/21 18:44 Expected date of discharge: 07/07/21 Attending physician: Damon Rodriguez Consults: 07/05/21 18:44 Consult Physician Routine Consulting Provider: Kareem Linder Consult Reason/Comments: altered mental status Do you want consulting provider notified?: Yes Primary care physician: Damon Rodriguez [facility] Hospital Course: Patient is a pleasant 71-year-old male that presented to the ER for syncope, falls, and altered mental status per family. Patient states he had passed out and hit his head on the table. Patient has a pertinent medical history of atrial fib, diabetes, GERD, hyperlipidemia, hypertension, memory impairment, osteoarthritis, chronic headache, chronic back pain, and history of multiple falls with fracture at home. Brain CT showed small craniectomy defect right cerebellar convexity with some unchanged bulging CFF across the defect, without acute findings. Neurology was consulted for altered mental status. Patient follows with specialist at [facility] after brain stem surgeries for decompression, has MRI scheduled at the end of the month for further evaluation. 07/07/2021 Patient was seen and assessed at bedside. Patient was resting comfortably in bed and in no acute distress. Patient denies shortness of breath, chest pain, fever. Patient reports pain throughout his body, but just took pain medication and that has not started working yet. Discussed having MRI completed that was scheduled to have outpatient later this month. MRI is ordered. Discussed discharge planning with rehabilitation case coordinator, will attempt to get patient rehab. Plan on discharge tomorrow. Patient was seen again, denied rehab. MRI was taken but not read. Will send results to specialist. Patient will be discharged with home care. Assessment: Altered mental status, resolved Vertigo Multiple falls at home Headaches, chronic migraines GERD Hypertension Hyperlipidemia History of osteoarthritis and chronic low back pain History of memory impairment History of brain stem decompression Health Concerns: multiple comorbidities Pertinent Studies: chest xray was negative Brain CT found no acute findings MRI, no report at this time Patient Condition at Discharge: Fair Plan - Discharge Summary Discharge Rx Participant: No New Discharge Prescriptions: Continue Metoprolol Tartrate [Lopressor] 150 mg PO DAILY Folic Acid 1 mg PO DAILY@1200 #30 tab Thiamine [Vitamin B-1] 100 mg PO DAILY@1200 #30 tab Pyridoxine [Vitamin B-6] 50 mg PO DAILY #30 tab Cyanocobalamin [Vitamin B-12] 1,000 mcg PO DAILY #30 tab Calcium Carbonate [Tums] 1,500 mg PO DAILY lisinopriL [Zestril] 20 mg PO DAILY #30 tab Pantoprazole Sodium [Protonix] 80 mg PO DAILY Sucralfate [Carafate] 3 gm PO DAILY Tamsulosin [Flomax] 0.4 mg PO DAILY 30 Days #30 cap Famotidine [Pepcid] 20 mg PO BID 30 Days #60 tab Atorvastatin [Lipitor] 40 mg PO HS Triamcinolone 0.1% Ointment [Kenalog 0.1% Ointment] 1 applic TOPICAL BID Multivitamins, Thera [Multivitamin (formulary)] 1 tab PO DAILY@1200 amLODIPine [Norvasc] 5 mg PO DAILY #30 tab traMADol HCl [Ultram] 50 mg PO QID PRN 3 Days #12 tab PRN Reason: Pain Clopidogrel [Plavix] 75 mg PO DAILY #30 tab Magnesium Oxide [Mag-Ox] 1,200 mg PO DAILY Fludrocortisone [Florinef] 0.2 mg PO DAILY #30 tablet Aspirin EC [Ecotrin Low Dose] 81 mg PO DAILY DULoxetine HCL [Cymbalta] 60 mg PO DAILY 30 Days #30 cap Gabapentin [Neurontin] 300 mg PO DAILY #0 Discharge Medication List Metoprolol Tartrate [Lopressor] 150 mg PO DAILY 11/06/19 [History] Atorvastatin [Lipitor] 40 mg PO HS 06/18/20 [History] Folic Acid 1 mg PO DAILY@1200 #30 tab 12/23/20 [Rx] Thiamine [Vitamin B-1] 100 mg PO DAILY@1200 #30 tab 12/23/20 [Rx] Multivitamins, Thera [Multivitamin (formulary)] 1 tab PO DAILY@1200 01/09/21 [History] Triamcinolone 0.1% Ointment [Kenalog 0.1% Ointment] 1 applic TOPICAL BID 01/09/21 [History] Pyridoxine [Vitamin B-6] 50 mg PO DAILY #30 tab 01/12/21 [Rx] Cyanocobalamin [Vitamin B-12] 1,000 mcg PO DAILY #30 tab 03/03/21 [Rx] amLODIPine [Norvasc] 5 mg PO DAILY #30 tab 04/08/21 [Rx] traMADol HCl [Ultram] 50 mg PO QID PRN 3 Days #12 tab 04/08/21 [Rx] Calcium Carbonate [Tums] 1,500 mg PO DAILY 04/21/21 [History] Clopidogrel [Plavix] 75 mg PO DAILY #30 tab 04/26/21 [Rx] lisinopriL [Zestril] 20 mg PO DAILY #30 tab 04/26/21 [Rx] Magnesium Oxide [Mag-Ox] 1,200 mg PO DAILY 05/05/21 [History] Pantoprazole Sodium [Protonix] 80 mg PO DAILY 05/05/21 [History] Sucralfate [Carafate] 3 gm PO DAILY 05/05/21 [History] Fludrocortisone [Florinef] 0.2 mg PO DAILY #30 tablet 05/11/21 [Rx] Tamsulosin [Flomax] 0.4 mg PO DAILY 30 Days #30 cap 05/11/21 [Rx] Aspirin EC [Ecotrin Low Dose] 81 mg PO DAILY 05/28/21 [History] DULoxetine HCL [Cymbalta] 60 mg PO DAILY 30 Days #30 cap 06/06/21 [Rx] Famotidine [Pepcid] 20 mg PO BID 30 Days #60 tab 06/06/21 [Rx] Gabapentin [Neurontin] 300 mg PO DAILY #0 06/06/21 [Rx] Follow up Appointment(s)/Referral(s): Damon Rodriguez MD [Primary Care Provider] - 1-2 days [facility], [NON-STAFF] - 1-2 Days Patient Instructions/Handouts: Syncope (DC), Fall Prevention (DC) Activity/Diet/Wound Care/Special Instructions: Follow up with [facility], obtain MRI disc from medical records Discharge Disposition: HOME WITH HOME HEALTH SERVICES
[2021-07-07 20:52] LABS: Glucose,Whole Blood 133 mg/dL (75-99)
[2021-07-07] MEDS: ATORVASTATIN 40 MG TAB PO SCH (21:43)
[2021-07-08 01:36] VITALS: PULSE 58
[2021-07-08] MEDS: traMADol 50 MG TAB PO PRN ×2 (03:22→08:12)
--- NOTE | 2021-07-08 06:08 | MR ---
EXAMINATION TYPE: MR brain wo/w con DATE OF EXAM: 07/07/2021 COMPARISON: 04/24/2021 HISTORY: Vertigo, history of vascular decompression for vertigo 10 years ago CONTRAST: Standard multiplanar, multisequence MRI departmental protocol images were obtained without contrast a nd with 11 mL intravenous Gadavist gadolinium contrast. Ventricles have fairly normal size. There is no mass effect or midline shift. There is no sign of int racranial hemorrhage. Clark-white matter structures overall have fairly normal signal pattern. No evid ence of cerebral edema. Brainstem is intact. Corpus callosum is intact. Sella turcica is intact. Ther e is no evidence of orbital mass. There is no evidence of posterior fossa mass. Diffusion images show no evidence of an acute infarct. There is a wedge-shaped area of increased fluid signal in the lateral aspect of the right cerebellar hemisphere measuring 2 cm and consistent with an old infarct. There is craniotomy defect in the poste rior fossa on the right side posterior to the mastoid sinus. There is no pathologic enhancement. There is normal enhancement of the venous sinuses. IMPRESSION: There is apparent postsurgical changes with craniotomy defect in the lateral right side posterior fos sa and encephalomalacia right lateral cerebellar hemisphere. This appears not significantly different than old exam. No acute intracranial abnormality.
[2021-07-08 07:05] LABS: Glucose,Whole Blood 113 mg/dL (75-99)
[2021-07-08 07:18] VITALS: BP 142/81; RESP 18; TEMP 97.6
[2021-07-08] MEDS: PYRIDOXINE 50 MG TAB PO SCH (08:09)
[2021-07-08] MEDS: CALCIUM CARBONATE 500 MG CHEWABLE PO SCH (08:10)
[2021-07-08] MEDS: ASPIRIN 81 MG PO SCH (08:10)
[2021-07-08] MEDS: CLOPIDOGREL 75 MG TAB PO SCH (08:10)
[2021-07-08] MEDS: PANTOPRAZOLE 40 MG TABLET PO SCH (08:10)
[2021-07-08] MEDS: CYANOCOBALAMIN 500 MCG TAB PO SCH (08:10)
[2021-07-08] MEDS: TAMSULOSIN 0.4 MG CAP.ER.24H PO SCH (08:11)
[2021-07-08] MEDS: amLODIPine 5 MG TAB PO SCH (08:11)
[2021-07-08] MEDS: SUCRALFATE 1 GM TAB PO SCH (08:11)
[2021-07-08] MEDS: FLUDROCORTISONE 0.1 MG TAB PO SCH (08:11)
[2021-07-08] MEDS: lisinopriL 20 MG TAB PO SCH (08:11)
[2021-07-08] MEDS: FAMOTIDINE 20 MG TAB PO SCH (08:12)
[2021-07-08] MEDS: DULoxetine HCL 60 MG CAPSULE.DR PO SCH (08:12)
[2021-07-08] MEDS: MAGNESIUM OXIDE 400 MG TAB PO SCH (08:12)
[2021-07-08] MEDS: GABAPENTIN 300 MG CAP PO SCH (08:12)
[2021-07-08] MEDS: INSULIN ASPART (NovoLOG) 100 UNIT/ML VIAL SQ SCH (08:17)
[2021-07-08] MEDS: METOPROLOL TARTRATE 50 MG TAB PO SCH (08:48)
--- NOTE | 2021-07-08 12:14 | P.DS ---
Providers Date of admission: 07/05/21 18:44 Expected date of discharge: 07/08/21 Attending physician: Damon Rodriguez Consults: 07/05/21 18:44 Consult Physician Routine Consulting Provider: Kareem Linder Consult Reason/Comments: altered mental status Do you want consulting provider notified?: Yes Primary care physician: Damon Rodriguez Hospital Course: Final diagnosis Altered mental status, resolved Vertigo Multiple falls at home Headaches, chronic migraines GERD Hypertension Hyperlipidemia History of osteoarthritis and chronic low back pain History of memory impairment History of brain stem decompression Full code Discharge disposition Patient is being discharged in a stable condition with guarded prognosis to home. Patient will follow-up with Dr. Rodriguez upon discharge. Patient will also follow at the [facility] at his scheduled appointment on discharge. Total time taken is greater than 35 minutes. Hospital course Patient is a pleasant 71-year-old male that presented to the ER for syncope, falls, and altered mental status per family. Patient states he had passed out and hit his head on the table. Patient has a pertinent medical history of atrial fib, diabetes, GERD, hyperlipidemia, hypertension, memory impairment, osteoarthritis, chronic headache, chronic back pain, and history of multiple falls with fracture at home. Brain CT showed small craniectomy defect right cerebellar convexity with some unchanged bulging CFF across the defect, without acute findings. Neurology was consulted for altered mental status. Patient follows with specialist at [facility] after brain stem surgeries for decompression, has MRI scheduled at the end of the month for further evaluation. 07/07/2021 Patient was seen and assessed at bedside. Patient was resting comfortably in bed and in no acute distress. Patient denies shortness of breath, chest pain, fever. Patient reports pain throughout his body, but just took pain medication and that has not started working yet. Discussed having MRI completed that was scheduled to have outpatient later this month. MRI is ordered. Discussed discharge planning with clinical case manager, will attempt to get patient rehab. Plan on discharge tomorrow. Patient was seen again, denied rehab. MRI was taken but not read. Will send results to specialist. Patient will be discharged with home care. 07/08/2021 Patient is seen and evaluated in follow-up this morning currently sitting up in the chair with no acute overnight issues noted. Per nursing staff patient had been requesting an increase in his Cymbalta although had been recently decreased in dosage as patient continued with increasing altered mental status and frequent falls and discussed with the patient about verifying with primary care provider about medication adjustments. Patient verbalized understanding and agrees with this plan. Patient was scheduled to discharge yesterday although the wheelchair van that provides transportation was no longer running for the evening and is scheduled for this morning. Patient did have MRI of the brain and per the patient results are being faxed to his [facility] and will have follow-up appointment in the outpatient setting. Currently no reports of chest pain, shortness of breath, or palpitations. Patient is afebrile. No reports of nausea or vomiting and patient is tolerating diet. Patient will be discharged home today with home care being arranged. Guarded prognosis. Physical exam: GENERAL: The patient is alert and oriented x3, Well developed, well nourished. HEENT: Pupils are round and equally reacting to light. EOMI. no scleral icterus. No conjunctival pallor. Normocephalic, atraumatic. No pharyngeal erythema. No thyromegaly. CARDIOVASCULAR: S1 and S2 muffled PULMONARY: diminished breath sounds bilaterally with no wheezing or rhonchi noted. ABDOMEN: soft. Nontender on exam. obese. non-distended, normoactive bowel sounds. No palpable organomegaly. MUSCULOSKELETAL: No joint swelling or deformity. EXTREMITIES: No cyanosis, clubbing, or pedal edema. NEUROLOGICAL: Gross neurological examination did not reveal any focal deficits. SKIN: No rashes. Please refer to medication reconciliation sheet for a list of medications. The impression and plan of care has been dictated by Adelina Scales, Nurse Practitioner as directed. Dr. Elliot MD I have performed a history and examination and MDM of this patient, discussed the same with the dictator, and agree with the dictator's assessment and plan as written ,documented as a scribe. Based on total visit time, I have performed more than 50% of the visit. Assessment: Altered mental status, resolved Vertigo Multiple falls at home Headaches, chronic migraines GERD Hypertension Hyperlipidemia History of osteoarthritis and chronic low back pain History of memory impairment History of brain stem decompression Health Concerns: multiple comorbidities Patient Condition at Discharge: Fair Plan - Discharge Summary Discharge Rx Participant: No New Discharge Prescriptions: Continue Metoprolol Tartrate [Lopressor] 150 mg PO DAILY Folic Acid 1 mg PO DAILY@1200 #30 tab Thiamine [Vitamin B-1] 100 mg PO DAILY@1200 #30 tab Pyridoxine [Vitamin B-6] 50 mg PO DAILY #30 tab Cyanocobalamin [Vitamin B-12] 1,000 mcg PO DAILY #30 tab Calcium Carbonate [Tums] 1,500 mg PO DAILY lisinopriL [Zestril] 20 mg PO DAILY #30 tab Pantoprazole Sodium [Protonix] 80 mg PO DAILY Sucralfate [Carafate] 3 gm PO DAILY Tamsulosin [Flomax] 0.4 mg PO DAILY 30 Days #30 cap Famotidine [Pepcid] 20 mg PO BID 30 Days #60 tab Atorvastatin [Lipitor] 40 mg PO HS Triamcinolone 0.1% Ointment [Kenalog 0.1% Ointment] 1 applic TOPICAL BID Multivitamins, Thera [Multivitamin (formulary)] 1 tab PO DAILY@1200 amLODIPine [Norvasc] 5 mg PO DAILY #30 tab traMADol HCl [Ultram] 50 mg PO QID PRN 3 Days #12 tab PRN Reason: Pain Clopidogrel [Plavix] 75 mg PO DAILY #30 tab Magnesium Oxide [Mag-Ox] 1,200 mg PO DAILY Fludrocortisone [Florinef] 0.2 mg PO DAILY #30 tablet Aspirin EC [Ecotrin Low Dose] 81 mg PO DAILY DULoxetine HCL [Cymbalta] 60 mg PO DAILY 30 Days #30 cap Gabapentin [Neurontin] 300 mg PO DAILY #0 Discharge Medication List Metoprolol Tartrate [Lopressor] 150 mg PO DAILY 11/06/19 [History] Atorvastatin [Lipitor] 40 mg PO HS 06/18/20 [History] Folic Acid 1 mg PO DAILY@1200 #30 tab 12/23/20 [Rx] Thiamine [Vitamin B-1] 100 mg PO DAILY@1200 #30 tab 12/23/20 [Rx] Multivitamins, Thera [Multivitamin (formulary)] 1 tab PO DAILY@1200 01/09/21 [History] Triamcinolone 0.1% Ointment [Kenalog 0.1% Ointment] 1 applic TOPICAL BID 01/09/21 [History] Pyridoxine [Vitamin B-6] 50 mg PO DAILY #30 tab 01/12/21 [Rx] Cyanocobalamin [Vitamin B-12] 1,000 mcg PO DAILY #30 tab 12/09/21 [Rx] amLODIPine [Norvasc] 5 mg PO DAILY #30 tab 04/08/21 [Rx] traMADol HCl [Ultram] 50 mg PO QID PRN 3 Days #12 tab 04/08/21 [Rx] Calcium Carbonate [Tums] 1,500 mg PO DAILY 04/21/21 [History] Clopidogrel [Plavix] 75 mg PO DAILY #30 tab 04/26/21 [Rx] lisinopriL [Zestril] 20 mg PO DAILY #30 tab 04/26/21 [Rx] Magnesium Oxide [Mag-Ox] 1,200 mg PO DAILY 05/05/21 [History] Pantoprazole Sodium [Protonix] 80 mg PO DAILY 05/05/21 [History] Sucralfate [Carafate] 3 gm PO DAILY 05/05/21 [History] Fludrocortisone [Florinef] 0.2 mg PO DAILY #30 tablet 05/11/21 [Rx] Tamsulosin [Flomax] 0.4 mg PO DAILY 30 Days #30 cap 05/11/21 [Rx] Aspirin EC [Ecotrin Low Dose] 81 mg PO DAILY 05/28/21 [History] DULoxetine HCL [Cymbalta] 60 mg PO DAILY 30 Days #30 cap 06/06/21 [Rx] Famotidine [Pepcid] 20 mg PO BID 30 Days #60 tab 06/06/21 [Rx] Gabapentin [Neurontin] 300 mg PO DAILY #0 06/06/21 [Rx] Follow up Appointment(s)/Referral(s): Damon Rodriguez MD [Primary Care Provider] - 07/15/21 1:10 pm [facility], [NON-STAFF] - 1-2 Days Patient Instructions/Handouts: Syncope (DC), Fall Prevention (DC) Activity/Diet/Wound Care/Special Instructions: Follow up with [facility], obtain MRI disc from medical records Discharge Disposition: HOME WITH HOME HEALTH SERVICES
== END 2021-07-08 10:42 | disposition home health service (06) ==
LOC: EC 13:51 → 4SSUR 18:44
PROVIDERS: ADMIT Family Medicine; ATTEND Family Medicine
DX: G93.40 Encephalopathy, unspecified (principal); K21.9 Gastro-esophageal reflux disease without esophagitis; I10 Essential (primary) hypertension; E78.5 Hyperlipidemia, unspecified; M19.90 Unspecified osteoarthritis, unspecified site; H81.11 Benign paroxysmal vertigo, right ear; G89.29 Other chronic pain; M54.50 Low back pain, unspecified; N40.0 Benign prostatic hyperplasia without lower urinary tract symptoms; E11.40 Type 2 diabetes mellitus with diabetic neuropathy, unspecified; I48.0 Paroxysmal atrial fibrillation; W22.09XA Striking against other stationary object, initial encounter; Z79.02 Long term (current) use of antithrombotics/antiplatelets; Z79.82 Long term (current) use of aspirin; Z79.899 Other long term (current) drug therapy; Z88.0 Allergy status to penicillin; Z88.1 Allergy status to other antibiotic agents; Z90.13 Acquired absence of bilateral breasts and nipples; Z87.891 Personal history of nicotine dependence; Z86.69 Personal history of other diseases of the nervous system and sense organs; Z87.19 Personal history of other diseases of the digestive system; Z85.3 Personal history of malignant neoplasm of breast; Z87.01 Personal history of pneumonia (recurrent); Z86.010 Personal history of colon polyps; Z91.81 History of falling; Z86.14 Personal history of Methicillin resistant Staphylococcus aureus infection; Z82.49 Family history of ischemic heart disease and other diseases of the circulatory system
CPT/HCPCS: 99285; 96372; 36415; 93005; 97162; 97530; 97166; 80053; 82550; 83735; 84484; 85025; 85610; 85730; 81003; 80306; 83036; 71045; 70450; 70553; G0378 ×4; G0480; J2310; A9585; 80320

== ENCOUNTER 2021-08-05 14:06 | Emergency (ER) | payer MEDICARE ==
[2021-08-05 14:12] VITALS: RESP 18; TEMP 98
[2021-08-05] MEDS ORDERED: SODIUM CHLORIDE 0.9% 2,000 ML IV STA (17:12)
[2021-08-05] MEDS ORDERED: METOCLOPRAMIDE 5 MG/ML 2 ML VIAL IVP STA (17:13)
[2021-08-05] MEDS ORDERED: diphenhydrAMINE 50 MG/ML 1 ML VIAL IVP STA (17:13)
--- NOTE | 2021-08-05 17:45 | XR ---
EXAMINATION TYPE: XR Hip Bilateral and AP pelvis DATE OF EXAM: 08/05/2021 COMPARISON: Left hip x-ray 06/02/2021 HISTORY: Pain TECHNIQUE: 5 views FINDINGS: The pelvic ring is intact. Acetabula appear intact. Proximal femurs and hip joints are inta ct. No evidence of hip fracture. Sacroiliac joints appear normal. IMPRESSION: Negative pelvis and bilateral hip exam. No change compared to old exam.
--- NOTE | 2021-08-05 17:48 | CT ---
EXAMINATION TYPE: CT brain cspine wo con DATE OF EXAM: 08/05/2021 COMPARISON: 07/05/2021 CT brain. 02/28/2021. HISTORY: Headache and fall. CT DLP: 1819.6 mGycm Automated exposure control for dose reduction was used. Images of the brain and cervical spine obtained without contrast. There is mild cerebral cortical atrophy. There is no mass effect or midline shift. No sign of intracr anial hemorrhage. There is previous craniotomy at the posterior aspect of the right mastoid sinus. Th ere is normal aeration of the mastoid sinuses. The cervical vertebra have normal alignment. There is degenerative large hypertrophic anterior osteop hyte formation at C5-6 and C6-7. There is similar osteophyte at C2-3. The facet joints are intact. Th ere is multilevel hypertrophic facet arthropathy. IMPRESSION: Cervical multilevel spondylotic changes without fracture or significant disc space narrowing. No dooley ge compared to old exam. Mild cerebral atrophy. No change compared to old exam.
--- NOTE | 2021-08-05 17:56 | CT ---
EXAMINATION TYPE: CT lumbar spine wo con DATE OF EXAM: 08/05/2021 COMPARISON: None HISTORY: Fall. Low back pain. CT DLP: 0.6 mGycm Automated exposure control for dose reduction was used. Images obtained from the level of T12-S1 vertebra without contrast. Normal alignment. There is some sclerosis of the L5 vertebral body with 2.4 cm rounded area of lucenc y in the superior anterior aspect of the L5 vertebral body. This could be an osteolytic lesion. The s acroiliac joints are intact. Facet joints are intact. No subluxation. There is 6 mm rounded area of l ucency in the subchondral inferior endplate of the L4 vertebral body. There is also a 6 mm lucency in the posterior superior aspect of the L4 vertebral body. IMPRESSION: Mild compression fracture of 15% of the L5 vertebral body. Mild sclerosis and osteolytic change. It i s not clear if this is related to a large Schmorl node with fracture or due to tumor involvement with pathologic fracture. Contrast-enhanced MR scan would be helpful for further evaluation if clinically indicated.
[2021-08-05] MEDS ORDERED: KETOROLAC 15 MG/ML 1 ML VIAL IM STA (18:07)
--- NOTE | 2021-08-05 18:27 | ED ---
General Adult HPI - General Chief complaint: Fall Stated complaint: Headache Time Seen by Provider: 08/05/21 16:30 Source: patient Mode of arrival: wheelchair Limitations: no limitations - History of Present Illness Initial comments: Patient is a 71-year-old male who presents with with multiple complaints likely from reoccurring falls. 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 Patient states he normally uses a wheelchair because of his vertigo that causes him to fall. Patient states 2 days ago his neighbor was pushing him up a ramp outside his home in the wheelchair but it was too heavy so patient stood up to walk up the ramp using the rail when he experienced dizziness and had a fall. Patient states he did not hit his head or lose consciousness. He is not on blood thinners. Patient endorses lower back and hip pain, left hip worse than right. He states that there is radiation of the back pain down the left thigh. He denies numbness/tingling in the groin area. Denies loss of bladder/bowel function. Denies recent weight loss. Has history of double mastectomy but states masses were benign. Patient also endorses a severe headache that started 2 weeks ago. Patient states this headache is not typical of his normal migraines. The headache is right-sided and behind his right eye. He denies visual symptoms. No dizziness or lightheadedness currently. No fever, chills, or upper respiratory symptoms. No chest pain or shortness of breath. Patient is seeking a Fioricet prescription until he can get his refill on August 12. Patient states he is following with [facility] regarding his vertigo. - Related Data Home Medications Medication Instructions Recorded Confirmed Metoprolol Tartrate [Lopressor] 150 mg PO DAILY 11/06/19 07/05/21 Atorvastatin [Lipitor] 40 mg PO HS 06/18/20 07/05/21 Multivitamins, Thera [Multivitamin 1 tab PO DAILY@1200 01/09/21 07/05/21 (formulary)] Triamcinolone 0.1% Ointment 1 applic TOPICAL BID 01/09/21 07/05/21 [Kenalog 0.1% Ointment] Calcium Carbonate [Tums] 1,500 mg PO DAILY 04/21/21 07/05/21 Magnesium Oxide [Mag-Ox] 1,200 mg PO DAILY 05/05/21 07/05/21 Pantoprazole Sodium [Protonix] 80 mg PO DAILY 05/05/21 07/05/21 Sucralfate [Carafate] 3 gm PO DAILY 05/05/21 07/05/21 Aspirin EC [Ecotrin Low Dose] 81 mg PO DAILY 05/28/21 07/05/21 Previous Rx's Medication Instructions Recorded Folic Acid 1 mg PO DAILY@1200 #30 tab 12/23/20 Thiamine [Vitamin B-1] 100 mg PO DAILY@1200 #30 tab 12/23/20 Pyridoxine [Vitamin B-6] 50 mg PO DAILY #30 tab 01/12/21 Cyanocobalamin [Vitamin B-12] 1,000 mcg PO DAILY #30 tab 03/03/21 amLODIPine [Norvasc] 5 mg PO DAILY #30 tab 04/08/21 traMADol HCl [Ultram] 50 mg PO QID PRN 3 Days #12 tab 04/08/21 Clopidogrel [Plavix] 75 mg PO DAILY #30 tab 04/26/21 lisinopriL [Zestril] 20 mg PO DAILY #30 tab 04/26/21 Fludrocortisone [Florinef] 0.2 mg PO DAILY #30 tablet 05/11/21 Tamsulosin [Flomax] 0.4 mg PO DAILY 30 Days #30 cap 05/11/21 DULoxetine HCL [Cymbalta] 60 mg PO DAILY 30 Days #30 cap 06/06/21 Famotidine [Pepcid] 20 mg PO BID 30 Days #60 tab 06/06/21 Gabapentin [Neurontin] 300 mg PO DAILY #0 06/06/21 Butalb/Acetaminophen/Caffeine 1 cap PO Q4HR #42 cap 08/05/21 [Fioricet 50-300-40 mg Capsule] Lidocaine 5% Patch [Lidoderm 5% 1 patch TOPICAL DAILY #7 patch 08/05/21 Patch] Allergies Allergy/AdvReac Type Severity Reaction Status Date / Time cephalexin monohydrate Allergy Anaphylaxis Verified 07/05/21 16:35 [From Keflex] Cephalosporins Allergy Anaphylaxis Verified 07/05/21 16:35 Penicillins Allergy Anaphylaxis Verified 07/05/21 16:35 Review of Systems ROS Statement: Those systems with pertinent positive or pertinent negative responses have been documented in the HPI. ROS Other: All systems not noted in ROS Statement are negative. Past Medical History Past Medical History: Atrial Fibrillation, Diabetes Mellitus, GERD/Reflux, Hyperlipidemia, Hypertension, Osteoarthritis (OA), Pneumonia, Prostate Disorder Additional Past Medical History / Comment(s): Pt recently admitted to [facility] on 06/03/21 with fall/possible TIA. Other hx: FALLS, falls with fractuers, vertigo, surgeries for compressed brain stem at [facility], diet controlled diabetes/neuropathy bilateral feet and occasionally in both hands fingertips, bilateral mastectomies d/t benign tumors, chronic low back pain, chronic headaches, BPH, ulcerative colitis, benign colon polyps History of Any Multi-Drug Resistant Organisms: MRSA Date of last positivie culture/infection: MRSA-03/11 MDRO Source:: Source unknown-MRSA Past Surgical History: Back Surgery, Breast Surgery, Orthopedic Surgery Additional Past Surgical History / Comment(s): Bilateral mastectomy with right sided lymp node removal, R knee cap removed d/t fracture, Back surgery for herniated disc, brain stem surgeries for decompression-for dizziness and a surgery for spinal fluid leakage, right ankle ORIF, bilateral wrist fractures SX Past Anesthesia/Blood Transfusion Reactions: No Reported Reaction Past Psychological History: No Psychological Hx Reported Smoking Status: Former smoker Past Alcohol Use History: None Reported Past Drug Use History: None Reported - Past Family History Father History Unknown: Yes Family Medical History: Congestive Heart Failure (CHF) Additional Family Medical History / Comment(s): at 68. Mother History Unknown: Yes Family Medical History: Hypertension Additional Family Medical History / Comment(s): Pulmonary hypertension. at 78. General Exam Limitations: no limitations General appearance: alert, in no apparent distress Head exam: Present: atraumatic, normocephalic, normal inspection Eye exam: Present: normal appearance, PERRL, EOMI. Absent: scleral icterus, conjunctival injection, periorbital swelling Neck exam: Present: normal inspection. Absent: tenderness, meningismus, lymphadenopathy Respiratory exam: Present: normal lung sounds bilaterally. Absent: respiratory distress, wheezes, rales, rhonchi, stridor Cardiovascular Exam: Present: regular rate, normal rhythm, normal heart sounds. Absent: systolic murmur, diastolic murmur, rubs, gallop, clicks GI/Abdominal exam: Present: soft, normal bowel sounds. Absent: distended, tenderness, guarding, rebound, rigid Left Hip exam: Present: normal inspection, full ROM, pelvic stability. Absent: tenderness, swelling, abrasion, laceration, ecchymosis, deformity, crepitus, dislocation, erythema, external rotation, internal rotation, shortening Upper Leg exam: Present: normal inspection, full ROM. Absent: tenderness, swelling, abrasion, ecchymosis, deformity, erythema Neurovascular tendon exam: Present: no vascular compromise. Absent: pulse deficit, abnormal cap refill, pallor, foot drop Right Hip exam: Present: normal inspection, full ROM, pelvic stability. Absent: tenderness, swelling, abrasion, laceration, ecchymosis, deformity, crepitus, dislocation, erythema, external rotation, internal rotation, shortening Back exam: Present: normal inspection, full ROM, vertebral tenderness (Lower lumbar). Absent: paraspinal tenderness Neurological exam: Present: alert, oriented X3, CN II-XII intact Psychiatric exam: Present: normal affect, normal mood Skin exam: Present: warm, dry, intact, normal color. Absent: rash Course Vital Signs 08/05/21 08/05/21 14:08 19:49 Temperature 98.0 F Pulse Rate 74 78 Respiratory 18 18 Rate Blood Pressure 169/95 187/83 O2 Sat by Pulse 98 Oximetry Medical Decision Making - Medical Decision Making This a 71 year old male with recurrent vertigo resulting in recurrent falls at home. Thorough history and examination were performed. Patient is well-appearing and in no apparent distress. Patient reports a severe headache different from his typical migraines which started 2 weeks ago. No fever, chills, URI symptoms, or SOB. Patient also endorses hip pain and lower back pain with left-sided sciatica symptoms. No red flag symptoms. Due to patient's recent fall, severe headache, and extensive neurology history, CT of the brain and C-spine without contrast was obtained showed no acute abnormality. Bilateral hip and pelvis x-ray was unremarkable. CT of the lumbar spine without contrast reveals a mild compression fracture of 15% of the L5 vertebral body. There is mild sclerosis and osteolytic change that is not clear if there is no relation to a large Schmorl node with fracture or due to tumor involvement with pathologic fracture. Pain controlled with Morphine and lidocaine patch. Patient will be discharged with referral to cardiology specialist. He is instructed to follow up. He'll be discharged with lidocaine patches. I will also prescribe him a short course of Fioricet until his refill on 08/12. Patient instructed to use assistance with standing until his vertigo symptoms are further managed by his neurologist at [facility]. Return parameters discussed. Patient verbalizes understanding and is agreeable to plan. Dr. Squires is my attending. - Lab Data Lab Results 08/05/21 08/05/21 Range/Units 17:47 17:47 Coronavirus (PCR) Not Detected (Not Detectd) Influenza Type A RNA Not Detected (Not Detectd) Influenza Type B (PCR) Not Detected (Not Detectd) Disposition Clinical Impression: Hip pain, Back pain, Headache Disposition: HOME SELF-CARE Condition: Good Instructions (If sedation given, give patient instructions): Fall Prevention for Older Adults (ED) Additional Instructions: Please take medication and apply lidocaine patches as directed. You have some bone changes at lumbar spine #5 that you will need to follow-up with a cardiology specialist for. Follow-up with cardiology specialist in 1-2 days. Follow-up with neurologist and [facility] as planned. Please avoid ambulating without assistance in order to avoid falls. Return to the emergency department if you experience new, concerning, or worsening symptoms. Prescriptions: Butalb/Acetaminophen/Caffeine [Fioricet 50-300-40 mg Capsule] 1 cap PO Q4HR #42 cap Lidocaine 5% Patch [Lidoderm 5% Patch] 1 patch TOPICAL DAILY #7 patch Is patient prescribed a controlled substance at d/c from ED?: No Referrals: Damon Rodriguez MD [Primary Care Provider] - 1-2 days Emir Anderson DO [Doctor of Osteopathic Medicine] - 1-2 days Time of Disposition: 19:29
[2021-08-05] MEDS ORDERED: MORPHINE SULFATE 4 MG/ML SYRINGE IVP STA (18:44)
[2021-08-05] MEDS ORDERED: LIDOCAINE 5% PATCH TOPICAL SCH (19:00)
[2021-08-05 19:51] VITALS: BP 187/83; PULSE 78
== END 2021-08-05 20:26 | disposition home or self-care (01) ==
LOC: EC 14:06
DX: M54.50 Low back pain, unspecified (principal); R51.9 Headache, unspecified; Z20.822 Contact with and (suspected) exposure to COVID-19; M25.559 Pain in unspecified hip; E11.9 Type 2 diabetes mellitus without complications; K21.9 Gastro-esophageal reflux disease without esophagitis; Z79.83 Long term (current) use of bisphosphonates; I10 Essential (primary) hypertension; E78.5 Hyperlipidemia, unspecified; Z87.891 Personal history of nicotine dependence; Z88.1 Allergy status to other antibiotic agents; Z88.0 Allergy status to penicillin
CPT/HCPCS: 87502; 87635; 73521; 72125; 72131; 70450; 99284; 96374; 96375; 96361; 96372; J2270; J1200; J2765; J1885

== ENCOUNTER 2021-08-18 10:03 | Inpatient (IN) | payer MEDICARE ==
[2021-08-18] MEDS ORDERED: NALOXONE 0.4 MG/ML 1 ML VIAL IV PRN (17:20)
[2021-08-18] MEDS ORDERED: MORPHINE ORAL SOLN 10 MG/5 ML CUP PO PRN (17:27)
[2021-08-18] MEDS ORDERED: MORPHINE SULFATE 4 MG/ML SYRINGE IVP STA (17:29)
--- NOTE | 2021-08-18 17:47 | ED ---
Back Pain [facility] - General Chief Complaint: Back Pain/Injury Stated Complaint: back pain Time Seen by Provider: 08/18/21 16:44 Source: patient Limitations: no limitations - History of Present Illness Initial Comments: Patient is a 71-year-old male presenting with chief complaint of lower back pain. Patient sustained a compression fraction to the lumbar vertebrae on 08/05/21. He was advised to follow-up with Dr. Anderson. He was reevaluated on 08/12/21 for increased pain and bilateral lower extremity numbness and tingling. CT at that time showed no progression or changes. Patient is continuing to have pain, he has been taking oxycodone at home which has not been helping. Patient was sent here today by Dr. Anderson in for admission for pain control and to move his surgery date. Patient notes no changes in his pain, numbness, tingling. He denies any bowel or bladder incontinence. He denies any saddle paresthesia. Denies chest pain, shortness of breath, abdomina l pain, nausea, vomiting, headache, palpitations. - Related Data Home Medications Medication Instructions Recorded Confirmed Metoprolol Tartrate [Lopressor] 150 mg PO DAILY 11/06/19 08/18/21 Atorvastatin [Lipitor] 40 mg PO HS 06/18/20 08/18/21 Multivitamins, Thera [Multivitamin 1 tab PO DAILY@1200 01/09/21 08/18/21 (formulary)] Triamcinolone 0.1% Ointment 1 applic TOPICAL BID 01/09/21 08/18/21 [Kenalog 0.1% Ointment] Calcium Carbonate [Tums] 1,500 mg PO DAILY 04/21/21 08/18/21 Magnesium Oxide [Mag-Ox] 1,200 mg PO DAILY 05/05/21 08/18/21 Pantoprazole Sodium [Protonix] 80 mg PO DAILY 05/05/21 08/18/21 Sucralfate [Carafate] 3 gm PO DAILY 05/05/21 08/18/21 Aspirin EC [Ecotrin Low Dose] 81 mg PO DAILY 05/28/21 08/18/21 Baclofen [Lioresal] 20 mg PO BID PRN 08/18/21 08/18/21 Butalb/Acetaminophen/Caffeine 1 cap PO TID PRN 08/18/21 08/18/21 [Fioricet 50-300-40 mg Capsule] DULoxetine HCL [Cymbalta] 60 mg PO BID 08/18/21 08/18/21 Gabapentin [Neurontin] 300 mg PO BID 08/18/21 08/18/21 Lidocaine 5% Patch [Lidoderm 5% 1 patch TOPICAL DAILY PRN 08/18/21 08/18/21 Patch] Meloxicam [Mobic] 7.5 mg PO BID PRN 08/18/21 08/18/21 oxyCODONE-APAP 5-325MG [Percocet 1 tab PO Q6H PRN 08/18/21 08/18/21 5-325 mg] Previous Rx's Medication Instructions Recorded Folic Acid 1 mg PO DAILY@1200 #30 tab 12/23/20 Thiamine [Vitamin B-1] 100 mg PO DAILY@1200 #30 tab 12/23/20 Pyridoxine [Vitamin B-6] 50 mg PO DAILY #30 tab 01/12/21 Cyanocobalamin [Vitamin B-12] 1,000 mcg PO DAILY #30 tab 03/03/21 amLODIPine [Norvasc] 5 mg PO DAILY #30 tab 04/08/21 traMADol HCl [Ultram] 50 mg PO QID PRN 3 Days #12 tab 04/08/21 Clopidogrel [Plavix] 75 mg PO DAILY #30 tab 04/26/21 lisinopriL [Zestril] 20 mg PO DAILY #30 tab 04/26/21 Fludrocortisone [Florinef] 0.2 mg PO DAILY #30 tablet 05/11/21 Tamsulosin [Flomax] 0.4 mg PO DAILY 30 Days #30 cap 05/11/21 Famotidine [Pepcid] 20 mg PO BID 30 Days #60 tab 06/06/21 Diclofenac Sodium [Voltaren] 75 mg PO BID PRN #30 tab 08/12/21 Allergies Allergy/AdvReac Type Severity Reaction Status Date / Time cephalexin monohydrate Allergy Anaphylaxis Verified 08/18/21 18:46 [From Keflex] Cephalosporins Allergy Anaphylaxis Verified 08/18/21 18:46 Penicillins Allergy Anaphylaxis Verified 08/18/21 18:46 Review of Systems ROS Statement: Those systems with pertinent positive or pertinent negative responses have been documented in the HPI. ROS Other: All systems not noted in ROS Statement are negative. Past Medical History Past Medical History: Atrial Fibrillation, Diabetes Mellitus, GERD/Reflux, Hyperlipidemia, Hypertension, Osteoarthritis (OA), Pneumonia, Prostate Disorder Additional Past Medical History / Comment(s): Pt recently admitted to [facility] on 06/03/21 with fall/possible TIA. Other hx: FALLS, falls with fractuers, vertigo, surgeries for compressed brain stem at [facility], diet controlled diabetes/neuropathy bilateral feet and occasionally in both hands fingertips, bilateral mastectomies d/t benign tumors, chronic low back pain, chronic headaches, BPH, ulcerative colitis, benign colon polyps History of Any Multi-Drug Resistant Organisms: MRSA Date of last positivie culture/infection: MRSA-03/11 MDRO Source:: Source unknown-MRSA Past Surgical History: Back Surgery, Breast Surgery, Orthopedic Surgery Additional Past Surgical History / Comment(s): Bilateral mastectomy with right sided lymp node removal, R knee cap removed d/t fracture, Back surgery for herniated disc, brain stem surgeries for decompression-for dizziness and a surgery for spinal fluid leakage, right ankle ORIF, bilateral wrist fractures SX Past Anesthesia/Blood Transfusion Reactions: No Reported Reaction Past Psychological History: No Psychological Hx Reported Smoking Status: Former smoker Past Alcohol Use History: None Reported Past Drug Use History: None Reported - Past Family History Father History Unknown: Yes Family Medical History: Congestive Heart Failure (CHF) Additional Family Medical History / Comment(s): at 68. Mother History Unknown: Yes Family Medical History: Hypertension Additional Family Medical History / Comment(s): Pulmonary hypertension. at 78. General Exam Limitations: no limitations General appearance: alert, in no apparent distress Head exam: Present: atraumatic, normocephalic, normal inspection Eye exam: Present: normal appearance, EOMI. Absent: scleral icterus Neck exam: Present: normal inspection Respiratory exam: Present: normal lung sounds bilaterally. Absent: respiratory distress, wheezes, rales, rhonchi, stridor Cardiovascular Exam: Present: regular rate, normal rhythm, normal heart sounds. Absent: systolic murmur, diastolic murmur, rubs, gallop, clicks Extremities exam: Present: normal inspection, full ROM, pedal edema, other (Bilateral pedal and posterior tibial pulses palpated). Absent: tenderness Back exam: Present: tenderness. Absent: full ROM (Secondary to pain) Neurological exam: Present: alert, oriented X3, CN II-XII intact Psychiatric exam: Present: normal affect, normal mood Skin exam: Present: warm, dry, intact, normal color. Absent: rash Course Vital Signs 08/18/21 08/18/21 08/18/21 10:56 19:00 21:22 Temperature 98.1 F 98 F Pulse Rate 88 90 78 Respiratory 16 18 16 Rate Blood Pressure 143/83 160/92 170/97 O2 Sat by Pulse 96 98 96 Oximetry Medical Decision Making - Medical Decision Making Patient is a 71-year-old male with compression fractures of the lumbar spine presenting after referral from his orthopedics office for admission for pain control and surgery. Patient states that since his visit on 08/12 he has continued to have leg numbness and weakness, this has been unchanged. He has been taking oxycodone at home with little relief. On examination he is neurovascularly intact, he denies any loss of bowel or bladder control or saddle paresthesia. I spoke with Cynthia Benito, who confirmed that the patient should be admitted for pain control and upcoming surgery. Admission orders placed. Patient was agreeable to this plan. Patient was given pain management medication here in the ER. I discussed this case with my attending Dr. Pedroza. - Lab Data Result diagrams: 08/18/21 21:24 08/18/21 21:24 Disposition Clinical Impression: Compression fracture Disposition: ADMITTED IP TO THIS [facility] Condition: Fair Time of Disposition: 17:20 Decision to Admit Reason: Admit from EC Decision Date: 08/18/21 Decision Time: 17:20
[2021-08-18] MEDS ORDERED: SENNOSIDES 8.6 MG TAB PO PRN (17:54)
--- NOTE | 2021-08-18 18:18 | P.HPOR ---
History of Present Illness H&P Date: 08/18/21 Chief Complaint: Back pain, Leg pain 71 yo male known to me came to office today in follow up from an ED visit on 08/12/21. Pt states he had a fall at home and had severe pain in his back so he went to ED for evaluation. CT was done of his low back which was read as a compression fracture and he was sent home with pain meds and follow up. He presented to my office today in extreme pain in a wheel chair unable to ambulate with RLE weakness and radiculopathy. Pt has had similar pains before in his back but not to this extent and not as debilitating as he has now. He states his RLE seems to be now since the fall and does not move as well. He states no bowel or bladder issues and states no numbness/tingling in his genital region. He states he cannot complete his ADLs due to pain and cannot go home as he is in so much pain so he was sent to ED for evaluation and admission. CT was evaluated and this is actually burst fracture of L5 with potential lytic process. We will continue his work up. Review of Systems 14 points review of systems completed and as stated in HPI, all other systems reviewed are negative. Past Medical History Past Medical History: Atrial Fibrillation, Diabetes Mellitus, GERD/Reflux, Hyperlipidemia, Hypertension, Osteoarthritis (OA), Pneumonia, Prostate Disorder Additional Past Medical History / Comment(s): Pt recently admitted to [facility] on 06/03/21 with fall/possible TIA. Other hx: FALLS, falls with fractuers, vertigo, surgeries for compressed brain stem at [facility], diet controlled diabetes/neuropathy bilateral feet and occasionally in both hands fingertips, bilateral mastectomies d/t benign tumors, chronic low back pain, chronic headaches, BPH, ulcerative colitis, benign colon polyps History of Any Multi-Drug Resistant Organisms: MRSA Date of last positivie culture/infection: MRSA-03/11 MDRO Source:: Source unknown-MRSA Past Surgical History: Back Surgery, Breast Surgery, Orthopedic Surgery Additional Past Surgical History / Comment(s): Bilateral mastectomy with right sided lymp node removal, R knee cap removed d/t fracture, Back surgery for herniated disc, brain stem surgeries for decompression-for dizziness and a surgery for spinal fluid leakage, right ankle ORIF, bilateral wrist fractures SX Past Anesthesia/Blood Transfusion Reactions: No Reported Reaction Past Psychological History: No Psychological Hx Reported Smoking Status: Former smoker Past Alcohol Use History: None Reported Past Drug Use History: None Reported - Past Family History Father History Unknown: Yes Family Medical History: Congestive Heart Failure (CHF) Additional Family Medical History / Comment(s): at 68. Mother History Unknown: Yes Family Medical History: Hypertension Additional Family Medical History / Comment(s): Pulmonary hypertension. at 78. Medications and Allergies Home Medications Medication Instructions Recorded Confirmed Type Metoprolol Tartrate [Lopressor] 150 mg PO DAILY 11/06/19 07/05/21 History Atorvastatin [Lipitor] 40 mg PO HS 06/18/20 07/05/21 History Folic Acid 1 mg PO DAILY@1200 #30 tab 12/23/20 07/05/21 Rx Thiamine [Vitamin B-1] 100 mg PO DAILY@1200 #30 tab 12/23/20 07/05/21 Rx Multivitamins, Thera [Multivitamin 1 tab PO DAILY@1200 01/09/21 07/05/21 History (formulary)] Triamcinolone 0.1% Ointment 1 applic TOPICAL BID 01/09/21 07/05/21 History [Kenalog 0.1% Ointment] Pyridoxine [Vitamin B-6] 50 mg PO DAILY #30 tab 01/12/21 07/05/21 Rx Cyanocobalamin [Vitamin B-12] 1,000 mcg PO DAILY #30 tab 03/03/21 07/05/21 Rx amLODIPine [Norvasc] 5 mg PO DAILY #30 tab 04/08/21 07/05/21 Rx traMADol HCl [Ultram] 50 mg PO QID PRN 3 Days #12 tab 04/08/21 07/05/21 Rx Calcium Carbonate [Tums] 1,500 mg PO DAILY 04/21/21 07/05/21 History Clopidogrel [Plavix] 75 mg PO DAILY #30 tab 04/26/21 07/05/21 Rx lisinopriL [Zestril] 20 mg PO DAILY #30 tab 04/26/21 07/05/21 Rx Magnesium Oxide [Mag-Ox] 1,200 mg PO DAILY 05/05/21 07/05/21 History Pantoprazole Sodium [Protonix] 80 mg PO DAILY 05/05/21 07/05/21 History Sucralfate [Carafate] 3 gm PO DAILY 05/05/21 07/05/21 History Fludrocortisone [Florinef] 0.2 mg PO DAILY #30 tablet 05/11/21 07/05/21 Rx Tamsulosin [Flomax] 0.4 mg PO DAILY 30 Days #30 cap 05/11/21 07/05/21 Rx Aspirin EC [Ecotrin Low Dose] 81 mg PO DAILY 05/28/21 07/05/21 History DULoxetine HCL [Cymbalta] 60 mg PO DAILY 30 Days #30 cap 06/06/21 07/05/21 Rx Famotidine [Pepcid] 20 mg PO BID 30 Days #60 tab 06/06/21 07/05/21 Rx Gabapentin [Neurontin] 300 mg PO DAILY #0 06/06/21 07/05/21 Rx Butalb/Acetaminophen/Caffeine 1 cap PO Q4HR #42 cap 08/05/21 Rx [Fioricet 50-300-40 mg Capsule] Lidocaine 5% Patch [Lidoderm 5% 1 patch TOPICAL DAILY #7 patch 08/05/21 Rx Patch] Diclofenac Sodium [Voltaren] 75 mg PO BID PRN #30 tab 08/12/21 Rx oxyCODONE-APAP 5-325MG [Percocet 1 tab PO Q4HR PRN 3 Days #18 tab 08/12/21 Rx 5-325 mg] Allergies Allergy/AdvReac Type Severity Reaction Status Date / Time cephalexin monohydrate Allergy Anaphylaxis Verified 08/18/21 11:01 [From Keflex] Cephalosporins Allergy Anaphylaxis Verified 08/18/21 11:01 Penicillins Allergy Anaphylaxis Verified 08/18/21 11:01 Physical Examination Osteopathic Statement: *. No significant issues noted on an osteopathic structural exam other than those noted in the History and Physical/Consult. PHYSICAL EXAMINATION: Vitals: [VS] General: Awake, alert, appropriate for age, in no acute distress. HEENT: No unusual neck masses around region of lateral neck triangle, thyroid, supraclavicular groove. Extremities: Skin warm and dry without no acute lesions, coloration, temperature, skin intact, no tenderness or erythema. Integument: Hairy patches: Absent Dorsal skin dimples: Absent Cafe au lait spots: Absent Surgical incisions: Knee right, well healed. Palpation: Please see Pain drawing on Intake sheet for further detail. (Tenderness = T, Nontender = NT, Swelling = S, Ecchymosis = E) Findings on Midline and paraspinal palpation and percussion: Cervical: NT Thoracic: NT Lumbar: TTP with paraspinal and midline tenderness Sacral: NT Special findings: [] POSTURAL and MUSCULO-SKELETAL EVALUATION: Neck ROM: [Unrestricted in six directions] Lumbar ROM: Restricted due to pain at this time Shoulder ROM: Symmetric in abduction, ER/IR Hip ROM: Symmetric in abduction, adduction, ER/IR Knee ROM: Right knee restricted due to previous surgeries and issues Hands: Normal appearing structure L and R Feet: Normal appearing structure L and R VASCULAR STATUS : Wrist Pulses: [2/4 bilateral radial and ulnar] Pedal Pulses: [2/4 bilateral DP and PT] Color: mottled, vasculopath Edema: b/l LE 2+ NEUROLOGIC EXAMINATION: Mental Status: Awake and alert, fully oriented, with normal attention, concentration and memory, and fluent, appropriate speech. Cranial Nerves: I: Olfactory not tested. II: Visual acuity normal, no visual field deficit noted with confrontation. III,IV: Normal pupillary reflexes & intact extraocular movements without nystagmus. V,: Intact symmetrical facial sensation. VII: Intact symmetrical facial motor movement VIII: Hearing intact. IX,X: Intact gag, swallow, & normal voice. XI: Sternocleidomastoid, trapezius function intact. XII: Tongue midline with normal movements. Special Tests: Margret-Tinel sign - Carpal region: Absent Bilateral Straight Leg Raising: Absent Bilateral Motor Exam (0-5/5, N/T) STRENGTH UPPER EXTREMITY Shoulder Abd (Not part of DON Motor score): RIGHT [5] LEFT [5] Elbow Flexors: RIGHT [5] LEFT [5] Elbow Extensor: RIGHT [5] LEFT [5] Wrrist Dorsiflexors: RIGHT [5] LEFT [5] Finger Abductor: RIGHT [5] LEFT [5] Mix House Operator: RIGHT [5] LEFT [5] LOWER EXTREMITY Hip Flexor (Not part of DON Motor Score): RIGHT 3 LEFT [5] Knee Flexor: RIGHT 3 LEFT [5] Knee Extensor: RIGHT 3 LEFT [5] Ankle Dorsiflexion: RIGHT 3 LEFT [5] Ankle Plantarflexion: RIGHT 3 LEFT [5] EHL: RIGHT 3 LEFT [5] FHL: RIGHT 3 LEFT [5] DON Motor Score: RIGHT [50]/50 LEFT [50]/50 REFLEXES Biecp: RIGHT [2] LEFT [2] Tricep: RIGHT [2] LEFT [2] Brachioradialis: RIGHT [2] LEFT [2] Patellar: RIGHT absent patella LEFT [2] Achilles: RIGHT 1 LEFT [2] Pathological Reflexes Garcia's: RIGHT [Absent] LEFT [Absent] Babinski: RIGHT [Absent] LEFT [Absent] Clonus: RIGHT [None] LEFT [None] SENSORY Joint Position: [Intact bilaterally] Vibration [Intact bilaterally] Pain and LT sense [Intact C5-T1 and L2-S1] Dermatomal deficit global deficit on RLE Gait and Functional Evaluation: Ambulatory aids: Walker Unable to ambulate at this time Results CT of L spine w/wo contrast is reviewed from 08/12/21. This demonstrates a burst fractures of L5 AO type A4 with possible lytic foci within L5 vertebral body. This could also be a schmorls node that is incidental that was fractured around. MRI w/wo would better determine this. There is fracture that extends into b/l pedicles of L5 as well with potential for instability. There is vacuum phenomena at L4-5 disc. Alignment is still maintained and due to sclerosis around the lytic type focus there has not been as significant collapse of L5 body as would be expected although this is likely an unstable fracture at this point due to the extension posteriorly. There are no other fractures or lesions noted at this time. Assessment and Plan Assessment: 71 yo male severe low back pain s/p ffs -L5 AO type A4 burst fracture -Possible lytic foci L5 -Multiple medical commodities Plan: -Appreciate team management -Admission to hospital due to debility, pain and need for surgical stabilization -pain control PRN -Urgent MRI L spine to further define type of fracture, acuity and possible stenotic features -Medical management and work up for surgical intervention and clearance appreciated -Pending imaging and work up, possible surgical intervention 08/20/21 vs 08/23/21 depending on OR availability and surgical needs. Pt in extreme pain and needs stabilization. If there is potential for malignancy, would favor doing surgery during the week when pathology available due to need for intraoperative diagnosis. Would need at least L4-S1 stabilization with L5 biopsy and possible kyphoplasty. Discussed with pt he is on board. Further recs to follow imaging and work up.
[2021-08-18 22:17] LABS: ALT 15 U/L (4-49); AST 25 U/L (17-59); African American GFR (CKD) 79 (>60 ml/min/1.73 sqM); Albumin 4.1 g/dL (3.5-5.0); Albumin/Globulin Ratio 1.6; Alkaline Phosphatase 57 U/L (38-126); Anion Gap 6 mmol/L; Blood Urea Nitrogen 20 mg/dL (9-20); Calcium 8.8 mg/dL (8.4-10.2); Carbon Dioxide 34 mmol/L (22-30); Chloride 100 mmol/L (98-107); Globulin 2.6 g/dL; Glucose 123 mg/dL (74-99); Non-African American GFR(CKD) 69 (>60 ml/min/1.73 sqM); Potassium 4.5 mmol/L (3.5-5.1); Sodium 140 mmol/L (137-145); Total Bilirubin 0.4 mg/dL (0.2-1.3); Total Protein 6.7 g/dL (6.3-8.2)
[2021-08-18 22:26] LABS: Appearance,Urine Clear (Clear); Bilirubin,Urine Negative (Negative); Blood,Urine Negative (Negative); Color,Urine Light Yellow; Glucose,Urine (UA) Negative (Negative); Ketones,Urine Negative (Negative); Leukocyte Esterase,Urine Negative (Negative); Nitrite,Urine Negative (Negative); PH, Urine 6.5 (5.0-8.0); Protein,Urine Negative (Negative); Specific Gravity,Urine 1.007 (1.001-1.035); Urobilinogen,Urine <2.0 mg/dL (<2.0)
[2021-08-18] MEDS: GABAPENTIN 300 MG CAP PO SCH (22:31)
[2021-08-18] MEDS: IBUPROFEN 400 MG TAB PO PRN (22:31)
[2021-08-18 22:42] LABS: Basophils # (A) 0.1 k/uL (0-0.2); Basophils % (A) 1 %; Eosinophils # (A) 0.5 k/uL (0-0.7); Eosinophils % (A) 8 %; HCT 42.4 % (39.0-53.0); Hypochromasia Slight; Lymphocytes # (A) 1.3 k/uL (1.0-4.8); Lymphocytes % (A) 20 %; MCH 28.8 pg (25.0-35.0); MCHC 30.6 g/dL (31.0-37.0); MCV 94.2 fL (80.0-100.0); Mean Platelet Volume 7.5; Monocytes # (A) 0.5 k/uL (0-1.0); Monocytes % (A) 7 %; Neutrophils # (A) 4.2 k/uL (1.3-7.7); Neutrophils % (A) 63 %; Platelet Count 191 k/uL (150-450); RDW 13.7 % (11.5-15.5); WBC 6.6 k/uL (3.8-10.6)
[2021-08-18 22:43] LABS: Prothrombin Time 10.8 sec (9.0-12.0)
[2021-08-18] MEDS: HYDROmorphone 1 MG/ML 1 ML SYRINGE IVP PRN (23:27)
[2021-08-19] MEDS: oxyCODONE-APAP 5-325MG 1 EACH TAB PO PRN ×4 (01:18→21:17)
[2021-08-19] MEDS: HYDROmorphone 0.5 MG/0.5 ML SYRINGE IVP PRN (03:40)
[2021-08-19] MEDS: HYDROmorphone 1 MG/ML 1 ML SYRINGE IVP PRN ×4 (05:43→22:49)
[2021-08-19] MEDS: GABAPENTIN 300 MG CAP PO SCH ×3 (07:59→20:43)
[2021-08-19] MEDS: CYCLOBENZAPRINE 10 MG TAB PO PRN (08:02)
--- NOTE | 2021-08-19 10:24 | P.PN ---
Subjective Progress Note Date: 08/19/21 Principal diagnosis: Back pain, Leg pain Patient seen and examined today. He is sitting upright in bed. Patient does have complaint of pain, we discussed with patient that he will be painful until procedures performed. Instructed to utilize PRN pain medication. Discussed wit h patient surgical procedure and that we are looking at Sunday, August 23. Patient verbalizes understanding. Educated patient on bed exercises to promote lower extremity strength and circulation. Patient has been afebrile, denies nausea/vomiting, or chest pain. Patient has expressed frequent falls, dizziness, and vertigo. Objective - Vital Signs Vital signs: Vital Signs Temp 97.9 F 08/19/21 04:42 Pulse 81 08/19/21 04:42 Resp 16 08/19/21 04:42 BP 181/96 08/19/21 04:42 Pulse Ox 96 08/19/21 04:42 FiO2 Intake & Output 08/18/21 08/19/21 08/19/21 18:59 06:59 18:59 Intake Total 1620 Balance 1620 Weight 127.006 kg 127.006 kg Intake: Oral 1620 Other: Voiding Method Urinal # Voids 2 - Exam Physical Examination General: The patient is awake and alert, in no acute distress Skin: Skin is warm and dry with noted generalized eczema. Hairy patches absent, no dorsal skin dimples, no cafe au lait spots, and no surgical incisions. Eye: Pupils are equal, round and reactive to light, extra-ocular movements are intact; there is normal conjunctiva bilaterally. Neck: The neck is supple, there is no tenderness and ROM intact. Cardiovascular: There is a regular rate and rhythm. No murmur, rub or gallop is appreciated. +2 edema to BLE. Respiratory: Lungs are clear to auscultation, respirations are non-labored, breath sounds are equal. Gastrointestinal: Soft, non-distended, non-tender abdomen . Back: There is no tenderness to palpation in the midline, paralumbar, parathoracic or buttocks region. There is no obvious deformity . Musculoskeletal: ROM limited to lumbar spine and right lower extremity; 3/5 in RLE. FROM in all other major muscle groups with 5/5 strength. Neurological: CN 2-12 intact. There are no obvious motor or sensory deficits. Movement and coordination equal and intact. Sensory exam to light touch intact C5-T1 and intact from L2-S1. Reflexes 2/4 in bilateral upper and lower extremities. Negative Hoffmans, babinski, and clonus signs. Psychiatric: Cooperative, appropriate mood & affect, normal judgment. - Labs CBC & Chem 7: 08/18/21 21:24 08/18/21 21:24 Labs: Abnormal Lab Results - Last 24 Hours (Table) 08/18/21 08/18/21 Range/Units 21:24 21:24 MCHC 30.6 L (31.0-37.0) g/dL Carbon Dioxide 34 H (22-30) mmol/L Glucose 123 H (74-99) mg/dL Assessment and Plan Assessment: -severe low back pain s/p ffs -L5 AO type A4 burst fracture -Possible lytic foci L5 -Multiple medical commodities Plan: -Appreciate team management. -Pain control: Adequate at this time -Urgent MRI L spine to further define type of fracture, acuity and possible stenotic features -Medical management and work up for surgical intervention and clearance appreciated -Consult to Neurology regarding extreme dizziness, vertigo, and freq falls. -Surgical intervention 08/23/21 needs stabilization. Discussed with pt he is on board. Further recs to follow imaging and work up. *I reviewed and discussed this case with my attending Dr. Anderson, whom has reviewed this chart and films and is in agreement with assessment and plan of care as outlined above. I have personally seen and examined the patient, performed the documentation and the assessment and plan as written. Number of minutes spent on the visit: 20m.
--- NOTE | 2021-08-19 10:34 | CT ---
EXAMINATION TYPE: CT brain wo con DATE OF EXAM: 08/19/2021 HISTORY: dizziness CT DLP: 995.5 mGycm. Automated Exposure Control for Dose Reduction was Utilized. TECHNIQUE: CT scan of the head is performed without contrast. COMPARISON: CT brain 2 weeks ago. FINDINGS: There is no acute intracranial hemorrhage or midline shift identified. There is mild to m oderate diffuse ventricular and sulcal prominence consistent with diffuse age-related cerebral atroph y. Clark-white matter differentiation fairly well maintained. No suspicious opacification of the masto id air cells. Nasal septum deviated to right of midline. The globes are intact and the visualized sin uses are clear. IMPRESSION: No acute intracranial hemorrhage or midline shift. There is mild to moderate diffuse ce rebral atrophy redemonstrated. No significant change from recent CT.
[2021-08-19 11:08] VITALS: BMI 34.0
--- NOTE | 2021-08-19 11:51 | MR ---
EXAMINATION TYPE: MR lumbar spine wo/w con DATE OF EXAM: 08/19/2021 COMPARISON: CT lumbar spine 08/12/2021, lumbar MRI dated 08/17/2016 plain film April 25, 2021 HISTORY: L5 Fracture TECHNIQUE: Multiplanar, multisequence images of the lumbar spine were acquired without and with 13ml mL intraven ous Gadavist gadolinium contrast. L1-L2: Small posterior disc bulge causes slight anterior mass effect on the thecal sac. L2-L3: Retrolisthesis grade 1 L2-3 causes anterior mass effect on the thecal sac. There is facet arth ropathy change with hypertrophy ligamentum flavum causes posterior lateral mass effect on the thecal sac. Listhesis contributes to encroach somewhat on the right neural foramen, there is circumferential extension endplate disc complex right greater than left. L3-L4: Circumferential posterior disc bulge contacts anterior thecal sac and extends laterally, endpl ate disc complex encroaches minimally on the inferior aspect of the foramina. There is some facet art hropathy change. L4-L5: Circumferential extension endplate disc complex extends toward the right and left is noted cau sing foraminal encroachment. There is facet arthropathy change. Hypertrophic changes of the ligamentu m flavum causes posterior lateral mass effect on the thecal sac. No significant spinal stenosis, circ umferential disc bulge causes anterior mass effect on the thecal sac. Schmorl's node present inferior endplate of L4. L5-S1: There is facet arthropathy change present. No evident retropulsion. Posterior extension of end plate disc complex extends toward the right neural foramen causes anterolateral mass effect on the th ecal sac, right-sided foraminal encroachment, posterior elements appear intact. No significant spinal stenosis. The L5 fracture is noted as on CT, there is mild increased signal on T2-weighted images suggesting edmonds bacute fracture, findings new since April 25 2021, correlate for history of trauma. Findings involv ing the anterior and middle column of L5 extending into the left transverse process on CT and MRI IMPRESSION: Patient's L5 fracture does not appear to be acute based only mild local bone marrow edema. Degenerati ve disc disease, facet arthropathy, spondylolisthesis and multilevel foraminal encroachment. No signi ficant spinal stenosis.
--- NOTE | 2021-08-19 13:34 | P.CNNES ---
History of Present Illness Consult date: 08/19/21 Requesting physician: Cynthia Benito Reason for Consult: vertigo, extreme dizziness and frequent falls History of Present Illness: This is a 71-year-old gentleman with medical history of chronic vertigo, and is seems benign positional vertigo status post decompression over the right occipital, recurrent falls, chronic headache, paroxysmal atrial fibrillation, hypertension who presented emergency department on 08/18/2021 for complaint of lower back pain. Neurology is consulted for vertigo and severe dizziness with recurrent falls. Patient is known to our neurology team and had extensive workup for the same complaint as well as for at encephalopathy. On this visit is seems to the patient sustained a fall and had a compression fracture of the lumbar vertebra on 08/05/2021 and has bilateral lower extremity numbness and tingling. It seems to the patient has L5 burst fracture possibly lytic foci over the L4-5. Orthopedic surgery team is on board. Patient stated he continues to feel dizzy and he stated he has a coming-up appointment with neurosurgeon over [facility] for decompression again for his vertigo. He denies of any focal deficits, difficulty getting his words out, swallowing, visual disturbance. Of note the patient as stated above is known to our neurology service and had extensive work-up. Briefly patient had a 20 half hour EEG in our facility on 05/30/2021 and reported as normal for his encephalopathy. I recommended an epilepsy monitoring unit for 1-2 weeks especially since she has recurrent confusion to rule out seizure. Patient had a recent MRI of the brain with and without our facility on 07/07/2021 and it's reported as there is apparent postsurgical changes with c raniotomy defect in the lateral right side posterior fossa and encephalomalacia in the right lateral cerebellar hemisphere. Was appears nonsignificant different than old exam. No acute intracranial abnormality. Patient was recommended to follow up with ENT as an outpatient for his the dizziness. Some of the work-up in our facility during this admission: I personally reviewed the CBC with differential, chemistry panel and u/a and seems unremarkable. Review of Systems Review of system: The 12 point system was reviewed and apparent positive and negative per HPI. Past Medical History Past Medical History: Atrial Fibrillation, Diabetes Mellitus, GERD/Reflux, Hyperlipidemia, Hypertension, Osteoarthritis (OA), Pneumonia, Prostate Disorder Additional Past Medical History / Comment(s): Pt recently admitted to [facility] on 06/03/21 with fall/possible TIA. Other hx: FALLS, falls with fractuers, vertigo, surgeries for compressed brain stem at [facility], diet controlled diabetes/neuropathy bilateral feet and occasionally in both hands fingertips, bilateral mastectomies d/t benign tumors, chronic low back pain, chronic headaches, BPH, ulcerative colitis, benign colon polyps History of Any Multi-Drug Resistant Organisms: MRSA Date of last positivie culture/infection: MRSA-03/11 MDRO Source:: Source unknown-MRSA Past Surgical History: Back Surgery, Breast Surgery, Orthopedic Surgery Additional Past Surgical History / Comment(s): Bilateral mastectomy with right sided lymp node removal, R knee cap removed d/t fracture, Back surgery for herniated disc, brain stem surgeries for decompression-for dizziness and a surgery for spinal fluid leakage, right ankle ORIF, bilateral wrist fractures SX Past Anesthesia/Blood Transfusion Reactions: No Reported Reaction Past Psychological History: No Psychological Hx Reported Smoking Status: Former smoker Past Alcohol Use History: None Reported Past Drug Use History: None Reported - Past Family History Father History Unknown: Yes Family Medical History: Congestive Heart Failure (CHF) Additional Family Medical History / Comment(s): at 68. Mother History Unknown: Yes Family Medical History: Hypertension Additional Family Medical History / Comment(s): Pulmonary hypertension. at 78. Medications and Allergies Home Medications Medication Instructions Recorded Confirmed Type Metoprolol Tartrate [Lopressor] 150 mg PO DAILY 11/06/19 08/18/21 History Atorvastatin [Lipitor] 40 mg PO HS 06/18/20 08/18/21 History Folic Acid 1 mg PO DAILY@1200 #30 tab 12/23/20 08/18/21 Rx Thiamine [Vitamin B-1] 100 mg PO DAILY@1200 #30 tab 12/23/20 08/18/21 Rx Multivitamins, Thera [Multivitamin 1 tab PO DAILY@1200 01/09/21 08/18/21 History (formulary)] Triamcinolone 0.1% Ointment 1 applic TOPICAL BID 01/09/21 08/18/21 History [Kenalog 0.1% Ointment] Pyridoxine [Vitamin B-6] 50 mg PO DAILY #30 tab 01/12/21 08/18/21 Rx Cyanocobalamin [Vitamin B-12] 1,000 mcg PO DAILY #30 tab 03/03/21 08/18/21 Rx amLODIPine [Norvasc] 5 mg PO DAILY #30 tab 04/08/21 08/18/21 Rx traMADol HCl [Ultram] 50 mg PO QID PRN 3 Days #12 tab 04/08/21 08/18/21 Rx Calcium Carbonate [Tums] 1,500 mg PO DAILY 04/21/21 08/18/21 History Clopidogrel [Plavix] 75 mg PO DAILY #30 tab 04/26/21 08/18/21 Rx lisinopriL [Zestril] 20 mg PO DAILY #30 tab 04/26/21 08/18/21 Rx Magnesium Oxide [Mag-Ox] 1,200 mg PO DAILY 05/05/21 08/18/21 History Pantoprazole Sodium [Protonix] 80 mg PO DAILY 05/05/21 08/18/21 History Sucralfate [Carafate] 3 gm PO DAILY 05/05/21 08/18/21 History Fludrocortisone [Florinef] 0.2 mg PO DAILY #30 tablet 05/11/21 08/18/21 Rx Tamsulosin [Flomax] 0.4 mg PO DAILY 30 Days #30 cap 05/11/21 08/18/21 Rx Aspirin EC [Ecotrin Low Dose] 81 mg PO DAILY 05/28/21 08/18/21 History Famotidine [Pepcid] 20 mg PO BID 30 Days #60 tab 06/06/21 08/18/21 Rx Diclofenac Sodium [Voltaren] 75 mg PO BID PRN #30 tab 08/12/21 08/18/21 Rx Baclofen [Lioresal] 20 mg PO BID PRN 08/18/21 08/18/21 History Butalb/Acetaminophen/Caffeine 1 cap PO TID PRN 08/18/21 08/18/21 History [Fioricet 50-300-40 mg Capsule] DULoxetine HCL [Cymbalta] 60 mg PO BID 08/18/21 08/18/21 History Gabapentin [Neurontin] 300 mg PO BID 08/18/21 08/18/21 History Lidocaine 5% Patch [Lidoderm 5% 1 patch TOPICAL DAILY PRN 08/18/21 08/18/21 History Patch] Meloxicam [Mobic] 7.5 mg PO BID PRN 08/18/21 08/18/21 History oxyCODONE-APAP 5-325MG [Percocet 1 tab PO Q6H PRN 08/18/21 08/18/21 History 5-325 mg] Allergies Allergy/AdvReac Type Severity Reaction Status Date / Time cephalexin monohydrate Allergy Anaphylaxis Verified 08/18/21 18:46 [From Keflex] Cephalosporins Allergy Anaphylaxis Verified 08/18/21 18:46 Penicillins Allergy Anaphylaxis Verified 08/18/21 18:46 Physical Examination - Vital Signs Vital Signs: Vital Signs Temp Pulse Pulse Resp BP BP Pulse Ox 08/19/21 04:42 97.9 F 81 16 181/96 96 08/19/21 01:12 176/92 08/18/21 22:18 98.0 F 74 16 192/113 95 08/18/21 21:22 98 F 78 16 170/97 96 08/18/21 19:00 90 18 160/92 98 08/18/21 10:56 98.1 F 88 16 143/83 96 Intake and Output 08/18/21 08/19/21 08/19/21 22:59 06:59 14:59 Intake Total 1620 Balance 1620 Intake: Oral 1620 Other: Voiding Method Urinal # Voids 2 Weight 127.006 kg GENERAL: The patient is lying in bed and is in mild acute distress. CHEST: The heart rate is regular rate rhythm. No murmurs to auscultation. LUNG: Clear to auscultation bilaterally no wheezing noted throughout. Not labored breathing. ABDOMEN/GI: Bowel sounds present in all 4 quadrants. No tenderness to palpation throughout. NEUROLOGICAL: Higher mental function: The patient is awake, alert, oriented to self, place. He correctly stated the year but month stated it was May. Patient is follo wing simple commands. No aphasia and no neglect. Cranial nerves: The pupils are round, equal and reactive to light and accommodation. Visual bishop are full to confrontation throughout. Extraocular movement is intact no nystagmus is noted. Facial sensation is normal to touch throughout. The facial strength is normal throughout. Hearing is mildly decreased bilaterally to hand rub. Tongue is midline and moved [id number] without any difficulty. No dysarthria is noted. Shoulder shrug is normal bilaterally. Motor: Gait is deferred because of his pain. The strength is 5 over 5 throughout uppers while lowers are 4- (limited because of pain bilaterally). Normal tone and bulk. Cerebellum: Normal finger to nose bilaterally. Sensation: Sensation is normal to touch throughout. Reflexes (right/left): 1+ throughout. Plantars are downgoing bilaterally. Results - Laboratory Findings CBC and BMP: 08/18/21 21:24 08/18/21 21:24 Abnormal Lab Findings: Abnormal Labs 08/18/21 08/18/21 21:24 21:24 MCHC 30.6 L Carbon Dioxide 34 H Glucose 123 H Assessment and Plan Assessment: Chronic recurrent dizziness. Unknown exact cause (had chronic vertigo with falls and confusion: Had multiple MRI Brain and negative and had 2.5 hour EEG and was negative ). Unsure if peripheral cause for vertigo Possibly vertigo seems benign positional s/p decompression over the right occipital L5 burst fracture and possible lytic foci fracture of L5 from fall Back pain due to fall Recurrent falls History of multiple encephalopathy of unknown etiology. Paroxysmal atrial fibrillation not on anticoagulation Essential hypertension Chronic headache Plan: Patient had 2.5hour EEG since multiple encephalopathy in our facility on 05/30/2021 and reported as normal. Had recent MRI of the brain with and with out our facility on 07/07/2021 and it's reported as there is apparent postsurgical changes with craniotomy defect in the lateral right side posterior fossa and encephalomalacia in the right lateral cerebellar hemisphere. Was appears nonsignificant different than old exam. No acute intracranial abn ormality. -Ordered CT head and orthostatic vitals (blood pressure with heart rate) -Recommend Epilepsy monitoring unit as outpatient for 1-2 weeks since having repeated episode of confusions with falls to rule out epileptiform discharges. -Recommend ENT consultation. -Consulted PT and OT for gait training. -Q4 hour neuro checks. -Orthopedic team is on board. -Patient stated he has a coming-up appointment with [facility] for repeat decompression by neurosurgeon regarding dizziness. -I feel patient should resides in assisted facility or be under supervision since he continues to have episode of falls at home or confusion. -Will defer the rest of medical management to primary team. Thank you for the consultation. UPDATE: CT head is reported as No acute intracranial hemorrhage or midline shift. There is mild to moderate diffuse cerebral atrophy redemonstarated. No significant change from recent CT. I personally reviewed CT and agree with report. MRI L-spine: Patient L5 does not appear to be acute. Degenerative disc disease, facet arthropathy, spondyloisthesis and multilevel formaminal encroachment. No significant spinal stenosis. ENT stated they will follow-up as outpatient (Dr. Donaldson) and no work-up as inpatient. Otherwise no other neurological work-up. Neurology will sign off. Please reconsult if needed. The plan is discussed with patient and his nurse. Kareem Linder M.D. Neuro-Hospitalist Time with Patient: Greater than 30
[2021-08-19] MEDS ORDERED: ONDANSETRON 4 MG/2 ML VIAL IVP ONE (14:28)
[2021-08-19] MEDS ORDERED: LIDOCAINE 1% (10MG/ML) FOR IV START INTRADERMA PRN (14:28)
[2021-08-19] MEDS ORDERED: DEXAMETHASONE SOD PHOSPHATE 4 MG/ML 1 ML VIAL IV ONE (14:28)
[2021-08-19] MEDS: LACTATED RINGERS 1,000 ML IV SCH (14:44)
[2021-08-19] MEDS: ATORVASTATIN 40 MG TAB PO SCH (20:42)
[2021-08-19] MEDS: DULoxetine HCL 60 MG CAPSULE.DR PO SCH (20:43)
[2021-08-20] MEDS: HYDROmorphone 0.5 MG/0.5 ML SYRINGE IVP PRN ×4 (01:43→21:35)
[2021-08-20] MEDS: oxyCODONE-APAP 5-325MG 1 EACH TAB PO PRN ×3 (04:26→19:20)
[2021-08-20] MEDS: HYDROmorphone 1 MG/ML 1 ML SYRINGE IVP PRN ×4 (05:09→23:34)
[2021-08-20] MEDS ORDERED: HYDROmorphone 0.5 MG/0.5 ML SYRINGE IVP PRN (07:00)
[2021-08-20] MEDS ORDERED: METOCLOPRAMIDE 5 MG/ML 2 ML VIAL IVP PRN (07:00)
[2021-08-20] MEDS: METOPROLOL TARTRATE 50 MG TAB PO SCH ×3 (08:47→21:35)
[2021-08-20] MEDS: GABAPENTIN 300 MG CAP PO SCH ×3 (08:48→21:35)
[2021-08-20] MEDS: PYRIDOXINE 50 MG TAB PO SCH (08:48)
[2021-08-20] MEDS: FLUDROCORTISONE 0.1 MG TAB PO SCH (08:48)
[2021-08-20] MEDS: PANTOPRAZOLE 40 MG TABLET PO SCH (08:48)
[2021-08-20] MEDS: SUCRALFATE 1 GM TAB PO SCH (08:48)
[2021-08-20] MEDS: CYANOCOBALAMIN 500 MCG TAB PO SCH (08:49)
[2021-08-20] MEDS: MAGNESIUM OXIDE 400 MG TAB PO SCH (08:49)
[2021-08-20] MEDS: TAMSULOSIN 0.4 MG CAP.ER.24H PO SCH (08:49)
[2021-08-20] MEDS: DULoxetine HCL 60 MG CAPSULE.DR PO SCH ×2 (08:49→21:35)
[2021-08-20] MEDS: CALCIUM CARBONATE 500 MG CHEWABLE PO SCH (08:49)
[2021-08-20] MEDS ORDERED: amLODIPine 5 MG TAB PO SCH (09:00)
[2021-08-20] MEDS: CYCLOBENZAPRINE 10 MG TAB PO PRN ×2 (09:11→14:18)
--- NOTE | 2021-08-20 09:54 | P.CONS ---
History of Present Illness - Reason for Consult Consult date: 08/20/21 Medical management and preoperative clearance Requesting physician: Emir Anderson - Chief Complaint Lower back pain - History of Present Illness History of Presenting Illness: Patient is a very pleasant 71-year-old male with a past medical history of hypertension, hyperlipidemia, chronic systolic heart failure with EF of 45-50%, history of chronic benign positional vertigo with previous brainstem operation for decompression, GERD, BPH, and chronic back pain. Patient currently admitted under orthospine surgical team and scheduled to undergo surgical stabilization of L5 AO burst fracture with possible lytic foci of L5. We have been consulted for presurgical clearance as well as medical management throughout hospitalization. Patient seen and fully evaluated at bedside. Patient reports back pain currently controlled by pain medication regimen. In addition he reports decreased sensation to bilateral lower extremities. Movement intact. Patient denies having any involuntary loss of bowel or bladder and denies experiencing any saddlebag anesthesias. Patient denies having any chest pain, palpitations, shortness of breath, or experiencing any numbness or focal weakness in his extremities. Patient reports possible history of atrial fibrillation stating that he was told by many nurses that he had atrial fibrillation but reports when evaluated by certified court/medical interpreter he was told he did not. Patient has recently had cardiac workup with Cardiac catheterization completed 04/05/21 revealing predominantly mid CAD and a 50% mid LAD lesion, cardiology recommended aggressive risk factor modification and continued medical management of LAD lesion. Echocardiogram completed 04/25/21 revealed an EF of 45-50%.. We will obtain an EKG this time. Review of systems: Pertinent positives and negatives as discussed in HPI, a complete review of sys tems was performed and all other systems are negative. Physical exam: Vital signs reviewed and stable. General: Nontoxic, no distress and appears stated age. Obese male. Derm: Skin warm and dry, normal coloration for ethnicity. Head: Atraumatic, normocephalic and symmetric. Eyes: EOMs intact, no lid lag, and anicteric sclera Mouth: no lip lesions, mucus membranes moist Cardiovascular: Irregularly irregular with normal S1S2, no murmur, positive posterior tibial pulses bilaterally, and cap refill < 2 seconds. Lungs: Respirations even, regular, and unlabored on room air. Lungs CTA bilate rally, no rhonchi, no rales, no wheezing, and no accessory muscle usage. Abdominal: soft, nontender to palpation, no guarding, no appreciable organomegaly Ext: ROM intact. No gross muscle atrophy, no edema, no contractures Neuro: Speech clear, face symmetrical and CN II-XII grossly intact. Patient with equal and moderate strength in bilateral upper and lower extremities. Patient reports decreased sensation to bilateral lower extremities Psych: Alert and oriented to person, place, time, and situation. Appropriate and pleasant affect. Assessment and Plan of Care: Presurgical clearance for surgical stabilization of L5 AO burst fracture with possible lytic foci of L5. Back pain -NSQUIP revealing a below average risk of serious complication with patient of 2.7% below average of 3.8%, a below average risk of cardiac complication at 0.2% with average of 0.3%, and a below average risk of 0.1% with average is 0.2%. -Recommend obtaining preoperative EKG, otherwise patient is medically optimized for surgery at this time with no recommended need for further testing. Dizziness/lightheadedness with frequent falls secondary to chronic benign positional vertigo -Fall precautions -Encourage patient to slowly rise and slow to change positions. -Continue Florinef -Neurology following, appreciate further recommendations Hypertension, uncontrolled -Patient receiving metoprolol 50 mg 3 times daily along with Norvasc. Norvasc increased to 10 mg daily at this time. -Continue to monitor vital signs closely. BPH -Continue Flomax GERD -Continue Protonix. Thank you for allowing us to participate in the care of this pleasant patient. Do not hesitate to contact us with questions. Someone can be reached from the [facility] hospitalist group all hours of the day at [phone] or via [employer]. I reviewed the documentation as provided by the JANE above, who is the original author of this note. I agree with the documented assessment and plan, with the following changes: None Past Medical History Past Medical History: Atrial Fibrillation, Diabetes Mellitus, GERD/Reflux, Hyperlipidemia, Hypertension, Osteoarthritis (OA), Pneumonia, Prostate Disorder Additional Past Medical History / Comment(s): Pt recently admitted to [facility] on 06/03/21 with fall/possible TIA. Other hx: FALLS, falls with fractuers, vertigo, surgeries for compressed brain stem at [facility], diet controlled diabetes/neuropathy bilateral feet and occasionally in both hands fingertips, bilateral mastectomies d/t benign tumors, chronic low back pain, chronic headaches, BPH, ulcerative colitis, benign colon polyps History of Any Multi-Drug Resistant Organisms: MRSA Year Discovered:: MRSA-03/11 MDRO Source:: Source unknown-MRSA Past Surgical History: Back Surgery, Breast Surgery, Orthopedic Surgery Additional Past Surgical History / Comment(s): Bilateral mastectomy with right sided lymp node removal, R knee cap removed d/t fracture, Back surgery for herniated disc, brain stem surgeries for decompression-for dizziness and a surgery for spinal fluid leakage, right ankle ORIF, bilateral wrist fractures SX Past Anesthesia/Blood Transfusion Reactions: No Reported Reaction Past Psychological History: No Psychological Hx Reported Smoking Status: Former smoker Past Alcohol Use History: None Reported Past Drug Use History: None Reported - Past Family History Father History Unknown: Yes Family Medical History: Congestive Heart Failure (CHF) Additional Family Medical History / Comment(s): at 68. Mother History Unknown: Yes Family Medical History: Hypertension Additional Family Medical History / Comment(s): Pulmonary hypertension. at 78. Medications and Allergies Home Medications Medication Instructions Recorded Confirmed Type Metoprolol Tartrate [Lopressor] 150 mg PO DAILY 11/06/19 08/18/21 History Atorvastatin [Lipitor] 40 mg PO HS 06/18/20 08/18/21 History Folic Acid 1 mg PO DAILY@1200 #30 tab 12/23/20 08/18/21 Rx Thiamine [Vitamin B-1] 100 mg PO DAILY@1200 #30 tab 12/23/20 08/18/21 Rx Multivitamins, Thera [Multivitamin 1 tab PO DAILY@1200 01/09/21 08/18/21 History (formulary)] Triamcinolone 0.1% Ointment 1 applic TOPICAL BID 01/09/21 08/18/21 History [Kenalog 0.1% Ointment] Pyridoxine [Vitamin B-6] 50 mg PO DAILY #30 tab 01/12/21 08/18/21 Rx Cyanocobalamin [Vitamin B-12] 1,000 mcg PO DAILY #30 tab 03/03/21 08/18/21 Rx amLODIPine [Norvasc] 5 mg PO DAILY #30 tab 04/08/21 08/18/21 Rx traMADol HCl [Ultram] 50 mg PO QID PRN 3 Days #12 tab 04/08/21 08/18/21 Rx Calcium Carbonate [Tums] 1,500 mg PO DAILY 04/21/21 08/18/21 History Clopidogrel [Plavix] 75 mg PO DAILY #30 tab 04/26/21 08/18/21 Rx lisinopriL [Zestril] 20 mg PO DAILY #30 tab 04/26/21 08/18/21 Rx Magnesium Oxide [Mag-Ox] 1,200 mg PO DAILY 05/05/21 08/18/21 History Pantoprazole Sodium [Protonix] 80 mg PO DAILY 05/05/21 08/18/21 History Sucralfate [Carafate] 3 gm PO DAILY 05/05/21 08/18/21 History Fludrocortisone [Florinef] 0.2 mg PO DAILY #30 tablet 05/11/21 08/18/21 Rx Tamsulosin [Flomax] 0.4 mg PO DAILY 30 Days #30 cap 05/11/21 08/18/21 Rx Aspirin EC [Ecotrin Low Dose] 81 mg PO DAILY 05/28/21 08/18/21 History Famotidine [Pepcid] 20 mg PO BID 30 Days #60 tab 06/06/21 08/18/21 Rx Diclofenac Sodium [Voltaren] 75 mg PO BID PRN #30 tab 08/12/21 08/18/21 Rx Baclofen [Lioresal] 20 mg PO BID PRN 08/18/21 08/18/21 History Butalb/Acetaminophen/Caffeine 1 cap PO TID PRN 08/18/21 08/18/21 History [Fioricet 50-300-40 mg Capsule] DULoxetine HCL [Cymbalta] 60 mg PO BID 08/18/21 08/18/21 History Gabapentin [Neurontin] 300 mg PO BID 08/18/21 08/18/21 History Lidocaine 5% Patch [Lidoderm 5% 1 patch TOPICAL DAILY PRN 08/18/21 08/18/21 History Patch] Meloxicam [Mobic] 7.5 mg PO BID PRN 08/18/21 08/18/21 History oxyCODONE-APAP 5-325MG [Percocet 1 tab PO Q6H PRN 08/18/21 08/18/21 History 5-325 mg] Allergies Allergy/AdvReac Type Severity Reaction Status Date / Time cephalexin monohydrate Allergy Anaphylaxis Verified 08/18/21 18:46 [From Keflex] Cephalosporins Allergy Anaphylaxis Verified 08/18/21 18:46 Penicillins Allergy Anaphylaxis Verified 08/18/21 18:46 Physical Exam Osteopathic Statement: *. No significant issues noted on an osteopathic structural exam other than those noted in the History and Physical/Consult. Vitals: Vital Signs Temp Pulse Resp BP Pulse Ox 08/20/21 05:00 98 F 85 18 177/98 96 08/19/21 21:28 142/87 08/19/21 19:56 98.4 F 89 18 176/89 96 08/19/21 12:11 97.6 F 82 16 169/92 95 Intake and Output 08/19/21 08/20/21 08/20/21 22:59 06:59 14:59 Other: Voiding Method Urinal # Voids 4 3 Results CBC & Chem 7: 08/21/21 16:42 08/18/21 21:24
--- NOTE | 2021-08-20 10:03 | P.PN ---
Subjective Progress Note Date: 08/20/21 Patient seen and examined still having a lot of pain in his back is difficult to control patient is giving him all his medications which seem to take the edge off but he is very painful and is not able to ambulate around the room. He has tried is trying to be active but he just cannot get up due to the pain and he feels like his back is unstable. He denies any fevers or chills overnight he denies any perineal numbness or tingling but he does state that his legs are numb and he states that he has weakness in his legs specifically his right lower extremity still. He denies any bowel or bladder issues. Objective - Vital Signs Vital signs: Vital Signs Temp 98 F 08/20/21 05:00 Pulse 85 08/20/21 05:00 Resp 18 08/20/21 05:00 BP 177/98 08/20/21 05:00 Pulse Ox 96 08/20/21 05:00 FiO2 Intake & Output 08/19/21 08/20/21 08/20/21 18:59 06:59 18:59 Weight 127.006 kg Other: Voiding Method Urinal Urinal # Voids 4 3 - Exam Exam is repeated today not much change. Still is very tender in his low back difficulty with moving around cannot get up even difficulty moving in the bed secondary to pain in his low back and his legs. No pathologic reflexes still perineal sensation intact. PHYSICAL EXAMINATION: Vitals: Stable General: Awake, alert, appropriate for age, in no acute distress. HEENT: No unusual neck masses around region of lateral neck triangle, thyroid, supraclavicular groove. Extremities: Skin warm and dry without no acute lesions, coloration, temperature, skin intact, no tenderness or erythema. Integument: Hairy patches: Absent Dorsal skin dimples: Absent Cafe au lait spots: Absent Surgical incisions: Knee right, well healed. Palpation: Please see Pain drawing on Intake sheet for further detail. (Tenderness = T, Nontender = NT, Swelling = S, Ecchymosis = E) Findings on Midline and paraspinal palpation and percussion: Cervical: NT Thoracic: NT Lumbar: TTP with paraspinal and midline tenderness Sacral: NT Special findings: None POSTURAL and MUSCULO-SKELETAL EVALUATION: Neck ROM: [Unrestricted in six directions] Lumbar ROM: Restricted due to pain at this time Shoulder ROM: Symmetric in abduction, ER/IR Hip ROM: Symmetric in abduction, adduction, ER/IR Knee ROM: Right knee restricted due to previous surgeries and issues Hands: Normal appearing structure L and R Feet: Normal appearing structure L and R VASCULAR STATUS : Wrist Pulses: [2/4 bilateral radial and ulnar] Pedal Pulses: [2/4 bilateral DP and PT] Color: mottled, vasculopath Edema: b/l LE 2+ NEUROLOGIC EXAMINATION: Mental Status: Awake and alert, fully oriented, with normal attention, concentration and memory, and fluent, appropriate speech. Cranial Nerves: I: Olfactory not tested. II: Visual acuity normal, no visual field deficit noted with confrontation. III,IV: Normal pupillary reflexes & intact extraocular movements without nystagmus. V,: Intact symmetrical facial sensation. VII: Intact symmetrical facial motor movement VIII: Hearing intact. IX,X: Intact gag, swallow, & normal voice. XI: Sternocleidomastoid, trapezius function intact. XII: Tongue midline with normal movements. Special Tests: Margret-Tinel sign - Carpal region: Absent Bilateral Straight Leg Raising: Absent Bilateral Motor Exam (0-5/5, N/T) STRENGTH UPPER EXTREMITY Shoulder Abd (Not part of DON Motor score): RIGHT [5] LEFT [5] Elbow Flexors: RIGHT [5] LEFT [5] Elbow Extensor: RIGHT [5] LEFT [5] Wrrist Dorsiflexors: RIGHT [5] LEFT [5] Finger Abductor: RIGHT [5] LEFT [5] Satellite [employer] Operator: RIGHT [5] LEFT [5] LOWER EXTREMITY Hip Flexor (Not part of DON Motor Score): RIGHT 3 LEFT [5] Knee Flexor: RIGHT 3 LEFT [5] Knee Extensor: RIGHT 3 LEFT [5] Ankle Dorsiflexion: RIGHT 3 LEFT [5] Ankle Plantarflexion: RIGHT 3 LEFT [5] EHL: RIGHT 3 LEFT [5] FHL: RIGHT 3 LEFT [5] DON Motor Score: RIGHT [50]/50 LEFT [50]/50 REFLEXES Biecp: RIGHT [2] LEFT [2] Tricep: RIGHT [2] LEFT [2] Brachioradialis: RIGHT [2] LEFT [2] Patellar: RIGHT absent patella LEFT [2] Achilles: RIGHT 1 LEFT [2] Pathological Reflexes Garcia's: RIGHT [Absent] LEFT [Absent] Babinski: RIGHT [Absent] LEFT [Absent] Clonus: RIGHT [None] LEFT [None] SENSORY Joint Position: [Intact bilaterally] Vibration [Intact bilaterally] Pain and LT sense [Intact C5-T1 and L2-S1] Dermatomal deficit global deficit on RLE Gait and Functional Evaluation: Ambulatory aids: Walker Unable to ambulate at this time - Labs CBC & Chem 7: 08/18/21 21:24 08/18/21 21:24 Assessment and Plan Assessment: 71 yo male severe low back pain s/p ffs -L5 AO type A4 burst fracture -Possible lytic foci L5 -Multiple medical commodities Plan: -Appreciate oracle consultant and team management. -Activity: Ambulate QID, OOB all meals, up and about, limit lifting bending twisting to less than 5 lbs. Use walker or cane if needed for stability. -Daily PT/OT, increase ambulation strength and balance. -We will attempt to brace the patient in the meantime however he is likely not to tolerate this as the brace will not fit him very well he is very large. But we will try this is conservative treatment -Pain control: We will adjust his medications accordingly to give him better pain control -Meds: reviewed -GI ppx: senna, Miralax -DC gastelum when up and about, bedside commode if needed -DVT PPX: Teds and SCDs and chemoprophylaxis for now which will be stopped before surgery -Hygiene: Shower daily Meticulous cleaning after BMs away from incision site -Encourage IS 10x/hr -Dispo: Pending We discussed surgical and nonsurgical options again. The patient at this point states that he wants surgery as he is unable to get up and move around in his legs hurt so bad. This is reasonable. We still plan for 08/23/2021 for this surgery. We will ask medicine to see and evaluate the patient again and clear him for surgery.
[2021-08-20] MEDS: MULTIVITAMINS, THERA 1 EACH TAB PO SCH (11:34)
[2021-08-20] MEDS: THIAMINE 100 MG TAB PO SCH (11:34)
[2021-08-20] MEDS: FOLIC ACID 1 MG TAB PO SCH (11:34)
[2021-08-20] MEDS: LACTATED RINGERS 1,000 ML IV SCH (21:30)
[2021-08-20] MEDS: ATORVASTATIN 40 MG TAB PO SCH (21:35)
[2021-08-21] MEDS: HYDROmorphone 0.5 MG/0.5 ML SYRINGE IVP PRN ×2 (01:07→08:38)
[2021-08-21] MEDS: CYCLOBENZAPRINE 10 MG TAB PO PRN ×3 (01:08→16:01)
[2021-08-21] MEDS: oxyCODONE-APAP 5-325MG 1 EACH TAB PO PRN ×3 (04:32→19:37)
[2021-08-21] MEDS: HYDROmorphone 1 MG/ML 1 ML SYRINGE IVP PRN ×4 (05:32→22:47)
[2021-08-21] MEDS: IBUPROFEN 400 MG TAB PO PRN ×2 (08:37→16:29)
--- NOTE | 2021-08-21 08:39 | P.PN ---
Subjective Progress Note Date: 08/21/21 Principal diagnosis: Back pain, Leg pain Patient seen and examined today. He is sitting upright in bed. Patient continues to have c/o pain. Encouraged patient to work with physical therapy. Educated patient on bed exercises to promote lower extremity strength and circulation. Patient has been afebrile, denies nausea/vomiting, or chest pain. Patient states all needs are met at this time, he states he is looking forward to having the procedure and feeling better. Objective - Vital Signs Vital signs: Vital Signs Temp 98.3 F 08/21/21 05:00 Pulse 72 08/21/21 05:00 Resp 20 08/21/21 05:00 BP 163/91 08/21/21 05:00 Pulse Ox 94 L 08/21/21 05:00 FiO2 Intake & Output 08/20/21 08/21/21 08/21/21 18:59 06:59 18:59 Intake Total 590 Output Total 850 Balance -850 590 Intake: Oral 590 Output: Urine 850 Other: Voiding Method Urinal # Voids 3 - Exam Physical Examination General: The patient is awake and alert, in no acute distress Skin: Skin is warm and dry with noted generalized eczema. Hairy patches absent, no dorsal skin dimples, no cafe au lait spots, and no surgical incisions. Eye: Pupils are equal, round and reactive to light, extra-ocular movements are intact; there is normal conjunctiva bilaterally. Neck: The neck is supple, there is no tenderness and ROM intact. Cardiovascular: There is a regular rate and rhythm. No murmur, rub or gallop is appreciated. +2 edema to BLE. Respiratory: Lungs are clear to auscultation, respirations are non-labored, breath sounds are equal. Gastrointestinal: Soft, non-distended, non-tender abdomen . Back: There is no tenderness to palpation in the midline, paralumbar, parathoracic or buttocks region. There is no obvious deformity . Musculoskeletal: ROM limited to lumbar spine and right lower extremity; 3/5 in RLE. FROM in all other major muscle groups with 5/5 strength. Neurological: CN 2-12 intact. There are no obvious motor or sensory deficits. Movement and coordination equal and intact. Sensory exam to light touch intact C5-T1 and intact from L2-S1. Reflexes 2/4 in bilateral upper and lower extremities. Negative Hoffmans, babinski, and clonus signs. Psychiatric: Cooperative, appropriate mood & affect, normal judgment. - Labs CBC & Chem 7: 08/18/21 21:24 08/18/21 21:24 Assessment and Plan Assessment: -severe low back pain s/p ffs -L5 AO type A4 burst fracture -Possible lytic foci L5 -Multiple medical commodities Plan: -Appreciate team management. -Ecourage use of incentive spirometer -Pain control: Adequate at this time -Medical management and work up for surgical intervention and clearance appreci ated. -Surgical intervention 08/23/21 needs stabilization. Discussed with pt he is on board. Further recs to follow imaging and work up. *I reviewed and discussed this case with my attending Dr. Anderson, whom has reviewed this chart and films and is in agreement with assessment and plan of c are as outlined above. I have personally seen and examined the patient, performed the documentation and the assessment and plan as written. Number of minutes spent on the visit: 20m.
[2021-08-21] MEDS: SUCRALFATE 1 GM TAB PO SCH (08:46)
[2021-08-21] MEDS: CYANOCOBALAMIN 500 MCG TAB PO SCH (08:46)
[2021-08-21] MEDS: CALCIUM CARBONATE 500 MG CHEWABLE PO SCH (08:47)
[2021-08-21] MEDS: MAGNESIUM OXIDE 400 MG TAB PO SCH (08:47)
[2021-08-21] MEDS: METOPROLOL TARTRATE 50 MG TAB PO SCH ×3 (08:47→21:35)
[2021-08-21] MEDS: GABAPENTIN 300 MG CAP PO SCH ×3 (08:47→21:35)
[2021-08-21] MEDS: amLODIPine 10 MG TAB PO SCH (08:47)
[2021-08-21] MEDS: TAMSULOSIN 0.4 MG CAP.ER.24H PO SCH (08:48)
[2021-08-21] MEDS: DULoxetine HCL 60 MG CAPSULE.DR PO SCH ×2 (08:48→21:35)
[2021-08-21] MEDS: PANTOPRAZOLE 40 MG TABLET PO SCH (08:48)
[2021-08-21] MEDS: PYRIDOXINE 50 MG TAB PO SCH (08:48)
[2021-08-21] MEDS: FLUDROCORTISONE 0.1 MG TAB PO SCH (08:48)
[2021-08-21] MEDS: BUTALB/APAP/CAFF 50-325-40MG TAB PO PRN (09:48)
[2021-08-21] MEDS: MULTIVITAMINS, THERA 1 EACH TAB PO SCH (11:18)
[2021-08-21] MEDS: THIAMINE 100 MG TAB PO SCH (11:18)
[2021-08-21] MEDS: FOLIC ACID 1 MG TAB PO SCH (11:18)
[2021-08-21] MEDS: LACTATED RINGERS 1,000 ML IV SCH (11:39)
--- NOTE | 2021-08-21 14:07 | P.CONS ---
History of Present Illness - Reason for Consult Consult date: 08/19/21 Medical management - Chief Complaint Severe back/flank pain - History of Present Illness 71 yo male, with history of hypertension, hyperlipidemia, CHF with EF of 45-50% and chronic benign positional vertigo with previous brainstem operation for decompression, went to orthopedic office in follow up from an ED visit on 08/12/21. Pt states he had a fall at home and had severe pain in his back so he went to ED for evaluation. CT was done of his low back which was read as a compression fracture and he was sent home with pain meds and follow up. He presented to orthopedic in extreme pain in a wheel chair unable to ambulate with RLE weakness and radiculopathy. Pt has had similar pains before in his back but not to this extent and not as debilitating as he has now. He states his RLE seems to be now since the fall and does not move as well. He states no bowel or bladder issues and states no numbness/tingling in his genital region. He states he cannot complete his ADLs due to pain and cannot go home as he is in so much pain so he was sent to ED for evaluation and admission. CT was evaluated and this is actually burst fracture of L5 with potential lytic process. We will continue his work up. Review of Systems REVIEW OF SYSTEMS: CONSTITUTIONAL: No fever, no malaise, no fatigue. HEENT: No recent visual problems or hearing problems. Denied any sore throat. CARDIOVASCULAR: No chest pain, orthopnea, PND, no palpitations, no syncope. PULMONARY: No shortness of breath, no cough, no hemoptysis. GASTROINTESTINAL: No diarrhea, no nausea, no vomiting, no abdominal pain. NEUROLOGICAL: No headaches, no weakness, no numbness. HEMATOLOGICAL: Denies any bleeding or petechiae. GENITOURINARY: Denies any burning micturition, frequency, or urgency. MUSCULOSKELETAL/RHEUMATOLOGICAL: Denies any joint pain, swelling, or any muscle pain. ENDOCRINE: Denies any polyuria or polydipsia. The rest of the 14-point review of systems is negative. Past Medical History Past Medical History: Atrial Fibrillation, Diabetes Mellitus, GERD/Reflux, Hyperlipidemia, Hypertension, Osteoarthritis (OA), Pneumonia, Prostate Disorder Additional Past Medical History / Comment(s): Pt recently admitted to [facility] on 06/03/21 with fall/possible TIA. 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 MDRO Source:: Source unknown-MRSA Past Surgical History: Back Surgery, Breast Surgery, Orthopedic Surgery Additional Past Surgical History / Comment(s): Bilateral mastectomy with right sided lymp node removal, R knee cap removed d/t fracture, Back surgery for herniated disc, brain stem surgeries for decompression-for dizziness and a surgery for spinal fluid leakage, right ankle ORIF, bilateral wrist fractures SX Past Anesthesia/Blood Transfusion Reactions: No Reported Reaction Past Psychological History: No Psychological Hx Reported Smoking Status: Former smoker Past Alcohol Use History: None Reported Past Drug Use History: None Reported - Past Family History Father History Unknown: Yes Family Medical History: Congestive Heart Failure (CHF) Additional Family Medical History / Comment(s): at 68. Mother History Unknown: Yes Family Medical History: Hypertension Additional Family Medical History / Comment(s): Pulmonary hypertension. at 78. Medications and Allergies Home Medications Medication Instructions Recorded Confirmed Type Metoprolol Tartrate [Lopressor] 150 mg PO DAILY 11/06/19 08/18/21 History Atorvastatin [Lipitor] 40 mg PO HS 06/18/20 08/18/21 History Folic Acid 1 mg PO DAILY@1200 #30 tab 12/23/20 08/18/21 Rx Thiamine [Vitamin B-1] 100 mg PO DAILY@1200 #30 tab 12/23/20 08/18/21 Rx Multivitamins, Thera [Multivitamin 1 tab PO DAILY@1200 01/09/21 08/18/21 History (formulary)] Triamcinolone 0.1% Ointment 1 applic TOPICAL BID 01/09/21 08/18/21 History [Kenalog 0.1% Ointment] Pyridoxine [Vitamin B-6] 50 mg PO DAILY #30 tab 01/12/21 08/18/21 Rx Cyanocobalamin [Vitamin B-12] 1,000 mcg PO DAILY #30 tab 03/03/21 08/18/21 Rx amLODIPine [Norvasc] 5 mg PO DAILY #30 tab 04/08/21 08/18/21 Rx traMADol HCl [Ultram] 50 mg PO QID PRN 3 Days #12 tab 04/08/21 08/18/21 Rx Calcium Carbonate [Tums] 1,500 mg PO DAILY 04/21/21 08/18/21 History Clopidogrel [Plavix] 75 mg PO DAILY #30 tab 04/26/21 08/18/21 Rx lisinopriL [Zestril] 20 mg PO DAILY #30 tab 04/26/21 08/18/21 Rx Magnesium Oxide [Mag-Ox] 1,200 mg PO DAILY 05/05/21 08/18/21 History Pantoprazole Sodium [Protonix] 80 mg PO DAILY 05/05/21 08/18/21 History Sucralfate [Carafate] 3 gm PO DAILY 05/05/21 08/18/21 History Fludrocortisone [Florinef] 0.2 mg PO DAILY #30 tablet 05/11/21 08/18/21 Rx Tamsulosin [Flomax] 0.4 mg PO DAILY 30 Days #30 cap 05/11/21 08/18/21 Rx Aspirin EC [Ecotrin Low Dose] 81 mg PO DAILY 05/28/21 08/18/21 History Famotidine [Pepcid] 20 mg PO BID 30 Days #60 tab 06/06/21 08/18/21 Rx Diclofenac Sodium [Voltaren] 75 mg PO BID PRN #30 tab 08/12/21 08/18/21 Rx Baclofen [Lioresal] 20 mg PO BID PRN 08/18/21 08/18/21 History Butalb/Acetaminophen/Caffeine 1 cap PO TID PRN 08/18/21 08/18/21 History [Fioricet 50-300-40 mg Capsule] DULoxetine HCL [Cymbalta] 60 mg PO BID 08/18/21 08/18/21 History Gabapentin [Neurontin] 300 mg PO BID 08/18/21 08/18/21 History Lidocaine 5% Patch [Lidoderm 5% 1 patch TOPICAL DAILY PRN 08/18/21 08/18/21 History Patch] Meloxicam [Mobic] 7.5 mg PO BID PRN 08/18/21 08/18/21 History oxyCODONE-APAP 5-325MG [Percocet 1 tab PO Q6H PRN 08/18/21 08/18/21 History 5-325 mg] Allergies Allergy/AdvReac Type Severity Reaction Status Date / Time cephalexin monohydrate Allergy Anaphylaxis Verified 08/18/21 18:46 [From Keflex] Cephalosporins Allergy Anaphylaxis Verified 08/18/21 18:46 Penicillins Allergy Anaphylaxis Verified 08/18/21 18:46 Physical Exam Vitals: Vital Signs Temp Pulse Pulse Resp BP BP Pulse Ox 08/19/21 04:42 97.9 F 81 16 181/96 96 08/19/21 01:12 176/92 08/18/21 22:18 98.0 F 74 16 192/113 95 08/18/21 21:22 98 F 78 16 170/97 96 08/18/21 19:00 90 18 160/92 98 Intake and Output 08/18/21 08/19/21 08/19/21 22:59 06:59 14:59 Intake Total 1620 Balance 1620 Intake: Oral 1620 Other: Voiding Method Urinal Urinal # Voids 2 Weight 127.006 kg 127.006 kg PHYSICAL EXAMINATION: GENERAL: The patient is alert and oriented x3, not in any acute distress. Well developed, well nourished. HEENT: Pupils are round and equally reacting to light. EOMI. No scleral icterus. No conjunctival pallor. Normocephalic, atraumatic. No pharyngeal erythema. No thyromegaly. CARDIOVASCULAR: S1 and S2 present. No murmurs, rubs, or gallops. PULMONARY: Chest is clear to auscultation, no wheezing or crackles. ABDOMEN: Soft, nontender, nondistended, normoactive bowel sounds. No palpable organomegaly. MUSCULOSKELETAL: No joint swelling or deformity. EXTREMITIES: No cyanosis, clubbing, or pedal edema. NEUROLOGICAL: Gross neurological examination did not reveal any focal deficits. SKIN: No rashes. Results CBC & Chem 7: 08/18/21 21:24 08/18/21 21:24 Labs: Abnormal Lab Results - Last 24 Hours (Table) 08/18/21 08/18/21 Range/Units 21:24 21:24 MCHC 30.6 L (31.0-37.0) g/dL Carbon Dioxide 34 H (22-30) mmol/L Glucose 123 H (74-99) mg/dL Assessment and Plan Assessment: 1. L5 burst fracture with possible lytic foci of L5 - Orthopedic surgery on board; your management 2. Intractable back pain; patient reports partial relief with current in management 3. Dizziness with frequent falls/ chronic benign positional vertigo; neurology is consulted 4. Hypertension; metoprolol 50 g 3 times a day; amlodipine 10 mg daily 5. Hyperlipidemia; Lipitor 40 mg by mouth daily at bedtime 6. BPH; Flomax 0.4 mg daily DVT prophylaxis; SCDs CODE STATUS; full code
--- NOTE | 2021-08-21 16:22 | P.PN ---
Subjective Progress Note Date: 08/21/21 History of Presenting Illness: Patient is a very pleasant 71-year-old male with a past medical history of hypertension, hyperlipidemia, chronic systolic heart failure with EF of 45-50%, history of chronic benign positional vertigo with previous brainstem operation for decompression, GERD, BPH, and chronic back pain. Patient currently admitted under orthospine surgical team and scheduled to undergo surgical stabilization of L5 AO burst fracture with possible lytic foci of L5. We have been consulted for presurgical clearance as well as medical management throughout hospitalizati on. Patient seen and fully evaluated at bedside. Patient reports back pain currently controlled by pain medication regimen. In addition he reports decreased sensation to bilateral lower extremities. Movement intact. Patient denies having any involuntary loss of bowel or bladder and denies experiencing any saddlebag anesthesias. Patient denies having any chest pain, palpitations, shortness of breath, or experiencing any numbness or focal weakness in his extremities. Patient reports possible history of atrial fibrillation stating that he was told by many nurses that he had atrial fibrillation but reports when evaluated by general counselor he was told he did not. Patient has recently had ca rdiac workup with Cardiac catheterization completed 04/05/21 revealing predominantly mid CAD and a 50% mid LAD lesion, cardiology recommended aggressive risk factor modification and continued medical management of LAD lesion. Echocardiogram completed 04/25/21 revealed an EF of 45-50%.. We will obtain an EKG this time. Physical exam: Patient seen and fully evaluated at bedside this morning. Patient reports mild headache. Fioricet ordered per his request as this is what patient takes at home for management of his headaches.. Patient reports back pain is currently controlled with current medication regimen and does report that he is been having intermittent right lower extremity pain that he describes as shooting down his right osullivan. patient denies having any other complaints or concerns at this time. Vital signs reviewed and stable. General: Nontoxic, no distress and appears stated age. Obese male. Derm: Skin warm and dry, normal coloration for ethnicity. Head: Atraumatic, normocephalic and symmetric. Eyes: EOMs intact, no lid lag, and anicteric sclera Mouth: no lip lesions, mucus membranes moist Cardiovascular: Irregularly irregular with normal S1S2, no murmur, positive p osterior tibial pulses bilaterally, and cap refill < 2 seconds. Lungs: Respirations even, regular, and unlabored on room air. Lungs CTA bilaterally, no rhonchi, no rales, no wheezing, and no accessory muscle usage. Abdominal: soft, nontender to palpation, no guarding, no appreciable organomegaly Ext: ROM intact. No gross muscle atrophy, no edema, no contractures Neuro: Speech clear, face symmetrical and CN II-XII grossly intact. Patient with equal and moderate strength in bilateral upper and lower extremities. Patient reports decreased sensation to bilateral lower extremities Psych: Alert and oriented to person, place, time, and situation. Appropriate and pleasant affect. Assessment and Plan of Care: Presurgical clearance for surgical stabilization of L5 AO burst fracture with possible lytic foci of L5. Back pain -NSQUIP revealing a below average risk of serious complication with patient of 2.7% below average of 3.8%, a below average risk of cardiac complication at 0.2% with average of 0.3%, and a below average risk of 0.1% with average is 0.2%. -Recommend obtaining preoperative EKG, otherwise patient is medically optimized for surgery at this time with no recommended need for further testing. Dizziness/lightheadedness with frequent falls secondary to chronic benign positional vertigo -Fall precautions -Encourage patient to slowly rise and slow to change positions. -Continue Florinef -Neurology following, appreciate further recommendations Hypertension, uncontrolled -Patient receiving metoprolol 50 mg 3 times daily along with Norvasc. Norvasc increased to 10 mg daily at this time. -Continue to monitor vital signs closely. BPH -Continue Flomax GERD -Continue Protonix. Thank you for allowing us to participate in the care of this pleasant patient. Do not hesitate to contact us with questions. Someone can be reached from the [facility] hospitalist group all hours of the day at [phone] or via [email or web address]. I reviewed the documentation as provided by the JANE above, who is the original author of this note. I agree with the documented assessment and plan, with the following changes: None Objective - Vital Signs Vital signs: Vital Signs Temp 98.3 F 08/21/21 05:00 Pulse 72 08/21/21 05:00 Resp 20 08/21/21 05:00 BP 163/91 08/21/21 05:00 Pulse Ox 94 L 08/21/21 05:00 FiO2 Intake & Output 05/08/21/21 08/21/21 18:59 06:59 18:59 Intake Total 590 Output Total 850 Balance -850 590 Intake: Oral 590 Output: Urine 850 Other: Voiding Method Urinal # Voids 3 - Labs CBC & Chem 7: 08/21/21 16:42 08/18/21 21:24
[2021-08-21 16:54] LABS: Basophils # (A) 0.1 k/uL (0-0.2); Basophils % (A) 1 %; Eosinophils # (A) 0.5 k/uL (0-0.7); Eosinophils % (A) 5 %; HGB 13.6 gm/dL (13.0-17.5); Lymphocytes # (A) 1.6 k/uL (1.0-4.8); Lymphocytes % (A) 18 %; MCH 28.6 pg (25.0-35.0); MCHC 30.9 g/dL (31.0-37.0); MCV 92.6 fL (80.0-100.0); Mean Platelet Volume 7.5; Monocytes # (A) 0.6 k/uL (0-1.0); Monocytes % (A) 7 %; Neutrophils % (A) 68 %; Platelet Count 200 k/uL (150-450); RBC 4.75 m/uL (4.30-5.90); RDW 13.4 % (11.5-15.5); WBC 8.7 k/uL (3.8-10.6)
--- NOTE | 2021-08-21 20:15 | P.PN ---
Subjective Progress Note Date: 08/20/21 71 yo male, with history of hypertension, hyperlipidemia, CHF with EF of 45-50% and chronic benign positional vertigo with previous brainstem operation for decompression, went to orthopedic office in follow up from an ED visit on 08/12/21. Pt states he had a fall at home and had severe pain in his back so he went to ED for evaluation. CT was done of his low back which was read as a compression fracture and he was sent home with pain meds and follow up. He presented to orthopedic in extreme pain in a wheel chair unable to ambulate with RLE weakness and radiculopathy. Pt has had similar pains before in his back but not to this extent and not as debilitating as he has now. He states his RLE seems to be now since the fall and does not move as well. He states no bowel or bladder issues and states no numbness/tingling in his genital region. He states he cannot complete his ADLs due to pain and cannot go home as he is in so much pain so he was sent to ED for evaluation and admission. CT was evaluated and this is actually burst fracture of L5 with potential lytic process. We will continue his work up. Objective - Vital Signs Vital signs: Vital Signs Temp 98 F 08/20/21 05:00 Pulse 85 08/20/21 05:00 Resp 18 08/20/21 05:00 BP 177/98 08/20/21 05:00 Pulse Ox 96 08/20/21 05:00 FiO2 Intake & Output 08/19/21 08/20/21 08/20/21 18:59 06:59 18:59 Output Total 850 Balance -850 Weight 127.006 kg Output: Urine 850 Other: Voiding Method Urinal Urinal # Voids 4 3 - Exam GENERAL: The patient is alert and oriented x3, not in any acute distress. Well developed, well nourished. HEENT: Pupils are round and equally reacting to light. EOMI. No scleral icterus. No conjunctival pallor. Normocephalic, atraumatic. No pharyngeal erythema. No thyromegaly. CARDIOVASCULAR: S1 and S2 present. No murmurs, rubs, or gallops. PULMONARY: Chest is clear to auscultation, no wheezing or crackles. ABDOMEN: Soft, nontender, nondistended, normoactive bowel sounds. No palpable organomegaly. MUSCULOSKELETAL: No joint swelling or deformity. EXTREMITIES: No cyanosis, clubbing, or pedal edema. NEUROLOGICAL: Gross neurological examination did not reveal any focal deficits. SKIN: No rashes. - Labs CBC & Chem 7: 08/21/21 16:42 08/18/21 21:24 Assessment and Plan Assessment: 1. L5 burst fracture with possible lytic foci of L5 - Orthopedic surgery on board; your management 2. Intractable back pain; patient reports partial relief with current in management 3. Dizziness with frequent falls/ chronic benign positional vertigo; neurology is consulted 4. Hypertension; metoprolol 50 g 3 times a day; amlodipine 10 mg daily 5. Hyperlipidemia; Lipitor 40 mg by mouth daily at bedtime 6. BPH; Flomax 0.4 mg daily DVT prophylaxis; SCDs CODE STATUS; full code
--- NOTE | 2021-08-21 20:18 | P.PN ---
Subjective Progress Note Date: 08/21/21 Principal diagnosis: L5 burst fracture with possible lytic foci of L5 Surgical stabilization of L5 Intractable back pain 71 yo male, with history of hypertension, hyperlipidemia, CHF with EF of 45-50% and chronic benign positional vertigo with previous brainstem operation for decompression, went to orthopedic office in follow up from an ED visit on 07/25 . Pt states he had a fall at home and had severe pain in his back so he went to ED for evaluation. CT was done of his low back which was read as a compression fracture and he was sent home with pain meds and follow up. He presented to orthopedic in extreme pain in a wheel chair unable to ambulate with RLE weakness and radiculopathy. Pt has had similar pains before in his back but not to this extent and not as debilitating as he has now. He states his RLE seems to be now since the fall and does not move as well. He states no bowel or bladder issues and states no numbness/tingling in his genital region. He states he cannot complete his ADLs due to pain and cannot go home as he is in so much pain so he was sent to ED for evaluation and admission. CT was evaluated and this is actually burst fracture of L5 with potential lytic process. We will continue his work up. 08/21/2021 Patient is seen and evaluated in room at bedside; continues to report u ncontrolled pain with intermittent right lower extremity shooting pain Patient remains on Dilaudid 1 mg IV every 6 hours when necessary along with Neurontin 300 mg by mouth 3 times a day Orthopedic surgery on board with plans for possible surgical treatment Objective - Vital Signs Vital signs: Vital Signs Temp 99.4 F 08/21/21 08:43 Pulse 81 08/21/21 08:43 Resp 16 08/21/21 08:43 BP 170/93 08/21/21 08:43 Pulse Ox 93 L 08/21/21 08:43 FiO2 Intake & Output 08/20/21 08/21/21 08/21/21 18:59 06:59 18:59 Intake Total 590 Output Total 850 450 Balance -850 590 -450 Intake: Oral 590 Output: Urine 850 450 Other: Voiding Method Urinal # Voids 3 1 - Exam GENERAL: The patient is alert and oriented x3, not in any acute distress. Well developed, well nourished. HEENT: Pupils are round and equally reacting to light. EOMI. No scleral icterus. No conjunctival pallor. Normocephalic, atraumatic. No pharyngeal erythema. No thyromegaly. CARDIOVASCULAR: S1 and S2 present. No murmurs, rubs, or gallops. PULMONARY: Chest is clear to auscultation, no wheezing or crackles. ABDOMEN: Soft, nontender, nondistended, normoactive bowel sounds. No palpable organomegaly. MUSCULOSKELETAL: No joint swelling or deformity. EXTREMITIES: No cyanosis, clubbing, or pedal edema. NEUROLOGICAL: Gross neurological examination did not reveal any focal deficits. SKIN: No rashes. - Labs CBC & Chem 7: 08/21/21 16:42 08/18/21 21:24 Assessment and Plan Assessment: 1. L5 burst fracture with possible lytic foci of L5 - Orthopedic surgery on board; your management 2. Intractable back pain; patient reports partial relief with current in management 3. Dizziness with frequent falls/ chronic benign positional vertigo; neurology is consulted 4. Hypertension; metoprolol 50 g 3 times a day; amlodipine 10 mg daily 5. Hyperlipidemia; Lipitor 40 mg by mouth daily at bedtime 6. BPH; Flomax 0.4 mg daily DVT prophylaxis; SCDs CODE STATUS; full code
[2021-08-21] MEDS: ATORVASTATIN 40 MG TAB PO SCH (21:35)
[2021-08-22] MEDS: oxyCODONE-APAP 5-325MG 1 EACH TAB PO PRN ×3 (02:14→15:46)
[2021-08-22] MEDS: CYCLOBENZAPRINE 10 MG TAB PO PRN ×2 (02:18→15:46)
[2021-08-22] MEDS: IBUPROFEN 400 MG TAB PO PRN (02:57)
[2021-08-22] MEDS: HYDROmorphone 0.5 MG/0.5 ML SYRINGE IVP PRN (02:58)
[2021-08-22] MEDS: HYDROmorphone 1 MG/ML 1 ML SYRINGE IVP PRN ×3 (05:58→21:26)
[2021-08-22] MEDS: SUCRALFATE 1 GM TAB PO SCH (09:15)
[2021-08-22] MEDS: GABAPENTIN 300 MG CAP PO SCH ×3 (09:15→21:26)
[2021-08-22] MEDS: MAGNESIUM OXIDE 400 MG TAB PO SCH (09:15)
[2021-08-22] MEDS: CYANOCOBALAMIN 500 MCG TAB PO SCH (09:15)
[2021-08-22] MEDS: CALCIUM CARBONATE 500 MG CHEWABLE PO SCH (09:15)
[2021-08-22] MEDS: amLODIPine 10 MG TAB PO SCH (09:15)
[2021-08-22] MEDS: DULoxetine HCL 60 MG CAPSULE.DR PO SCH ×2 (09:15→21:26)
[2021-08-22] MEDS: METOPROLOL TARTRATE 50 MG TAB PO SCH ×3 (09:15→21:26)
[2021-08-22] MEDS: TAMSULOSIN 0.4 MG CAP.ER.24H PO SCH (09:15)
[2021-08-22] MEDS: PANTOPRAZOLE 40 MG TABLET PO SCH (09:16)
[2021-08-22] MEDS: PYRIDOXINE 50 MG TAB PO SCH (09:17)
[2021-08-22] MEDS: FLUDROCORTISONE 0.1 MG TAB PO SCH (09:17)
[2021-08-22 11:01] LABS: Magnesium 1.6 mg/dL (1.5-2.4)
--- NOTE | 2021-08-22 11:51 | P.PN ---
Subjective Progress Note Date: 08/22/21 Pt s/e. No issues overnight. Having a flare of his psoriasis it seems on his face today. He is taking a lot of IV pain meds as his back is very painful. He has not been able to get up and move around he has not tolerated PT even with pain control. He continues to have RLE pain and weakness. Denies any perineal numbness/tingling. Denies any bowel bladder issues. Objective - Vital Signs Vital signs: Vital Signs Temp 98.3 F 08/22/21 04:25 Pulse 68 08/22/21 04:25 Resp 18 08/22/21 04:25 BP 161/77 08/22/21 04:25 Pulse Ox 95 08/22/21 04:25 FiO2 Intake & Output 08/21/21 08/22/21 08/22/21 18:59 06:59 18:59 Output Total 950 250 Balance -950 -250 Output: Urine 950 250 Other: Voiding Method Urinal # Voids 1 - Exam Exam repeated, no significant changes. PHYSICAL EXAMINATION: Vitals: Stable General: Awake, alert, appropriate for age, in no acute distress. HEENT: No unusual neck masses around region of lateral neck triangle, thyroid, supraclavicular groove. Extremities: Skin warm and dry without no acute lesions, coloration, temperature, skin intact, no tenderness or erythema. Integument: Hairy patches: Absent Dorsal skin dimples: Absent Cafe au lait spots: Absent Surgical incisions: Knee right, well healed. Palpation: Please see Pain drawing on Intake sheet for further detail. (Tenderness = T, Nontender = NT, Swelling = S, Ecchymosis = E) Findings on Midline and paraspinal palpation and percussion: Cervical: NT Thoracic: NT Lumbar: TTP with paraspinal and midline tenderness Sacral: NT Special findings: None POSTURAL and MUSCULO-SKELETAL EVALUATION: Neck ROM: [Unrestricted in six directions] Lumbar ROM: Restricted due to pain at this time Shoulder ROM: Symmetric in abduction, ER/IR Hip ROM: Symmetric in abduction, adduction, ER/IR Knee ROM: Right knee restricted due to previous surgeries and issues Hands: Normal appearing structure L and R Feet: Normal appearing structure L and R VASCULAR STATUS : Wrist Pulses: [2/4 bilateral radial and ulnar] Pedal Pulses: [2/4 bilateral DP and PT] Color: mottled, vasculopath Edema: b/l LE 2+ NEUROLOGIC EXAMINATION: Mental Status: Awake and alert, fully oriented, with normal attention, concentration and memory, and fluent, appropriate speech. Cranial Nerves: I: Olfactory not tested. II: Visual acuity normal, no visual field deficit noted with confrontation. III,IV: Normal pupillary reflexes & intact extraocular movements without nystagmus. V,: Intact symmetrical facial sensation. VII: Intact symmetrical facial motor movement VIII: Hearing intact. IX,X: Intact gag, swallow, & normal voice. XI: Sternocleidomastoid, trapezius function intact. XII: Tongue midline with normal movements. Special Tests: Margret-Tinel sign - Carpal region: Absent Bilateral Straight Leg Raising: Absent Bilateral Motor Exam (0-5/5, N/T) STRENGTH UPPER EXTREMITY Shoulder Abd (Not part of DON Motor score): RIGHT [5] LEFT [5] Elbow Flexors: RIGHT [5] LEFT [5] Elbow Extensor: RIGHT [5] LEFT [5] Wrrist Dorsiflexors: RIGHT [5] LEFT [5] Finger Abductor: RIGHT [5] LEFT [5] Elementary Education Teacher: RIGHT [5] LEFT [5] LOWER EXTREMITY Hip Flexor (Not part of DON Motor Score): RIGHT 3 LEFT [5] Knee Flexor: RIGHT 3 LEFT [5] Knee Extensor: RIGHT 3 LEFT [5] Ankle Dorsiflexion: RIGHT 3 LEFT [5] Ankle Plantarflexion: RIGHT 3 LEFT [5] EHL: RIGHT 3 LEFT [5] FHL: RIGHT 3 LEFT [5] DON Motor Score: RIGHT [50]/50 LEFT [50]/50 REFLEXES Biecp: RIGHT [2] LEFT [2] Tricep: RIGHT [2] LEFT [2] Brachioradialis: RIGHT [2] LEFT [2] Patellar: RIGHT absent patella LEFT [2] Achilles: RIGHT 1 LEFT [2] Pathological Reflexes Garcia's: RIGHT [Absent] LEFT [Absent] Babinski: RIGHT [Absent] LEFT [Absent] Clonus: RIGHT [None] LEFT [None] SENSORY Joint Position: [Intact bilaterally] Vibration [Intact bilaterally] Pain and LT sense [Intact C5-T1 and L2-S1] Dermatomal deficit global deficit on RLE Gait and Functional Evaluation: Ambulatory aids: Walker Unable to ambulate at this time - Labs CBC & Chem 7: 08/21/21 16:42 08/18/21 21:24 Labs: Abnormal Lab Results - Last 24 Hours (Table) 08/21/21 Range/Units 16:42 MCHC 30.9 L (31.0-37.0) g/dL Assessment and Plan Assessment: 71 yo male severe low back pain s/p ffs -L5 AO type A4 burst fracture -Possible lytic foci L5 -Multiple medical commodities Plan: -Appreciate health and wellness sales consultant and team management. -Activity: Ambulate QID, OOB all meals, up and about, limit lifting bending twi sting to less than 5 lbs. Use walker or cane if needed for stability. -Daily PT/OT, increase ambulation strength and balance. -We will attempt to brace the patient in the meantime however he is likely not to tolerate this as the brace will not fit him very well he is very large. But we will try this is conservative treatment -Pain control: We will adjust his medications accordingly to give him better pain control -Meds: reviewed -GI ppx: senna, Miralax -VINH gastelum when up and about, bedside commode if needed -DVT PPX: Teds and SCDs and chemoprophylaxis for now which will be stopped before surgery -Hygiene: Shower daily Meticulous cleaning after BMs away from incision site -Encourage IS 10x/hr -Dispo: Pending
[2021-08-22 11:54] LABS: African American GFR (CKD) 77.9 (60.0-200.0); Albumin 4.1 g/dL (3.8-4.9); Albumin/Globulin Ratio 1.71 (1.60-3.17); Anion Gap 11.5 mmol/L (10.00-18.00); BUN/Creat Ratio 18.91 Ratio (12.00-20.00); Blood Urea Nitrogen 20.8 mg/dL (9.0-27.0); Calcium 9.5 mg/dL (8.7-10.3); Carbon Dioxide 28.5 mmol/L (20.0-27.5); Globulin 2.4 g/dL (1.6-3.3); Non-African American GFR(CKD) 67.2 (60.0-200.0); Potassium 4.4 mmol/L (3.5-5.5); Total Bilirubin 0.3 mg/dL (0.30-1.20); Total Protein 6.5 g/dL (6.2-8.2)
[2021-08-22] MEDS: FOLIC ACID 1 MG TAB PO SCH (12:22)
[2021-08-22] MEDS: THIAMINE 100 MG TAB PO SCH (12:22)
[2021-08-22] MEDS: MULTIVITAMINS, THERA 1 EACH TAB PO SCH (12:22)
--- NOTE | 2021-08-22 13:56 | P.PN ---
Subjective Progress Note Date: 08/22/21 History of Presenting Illness: Patient is a very pleasant 71-year-old male with a past medical history of hypertension, hyperlipidemia, chronic systolic heart failure with EF of 45-50%, history of chronic benign positional vertigo with previous brainstem operation for decompression, GERD, BPH, and chronic back pain. Patient currently admitted under orthospine surgical team and scheduled to undergo surgical stabilization of L5 AO burst fracture with possible lytic foci of L5. We have been consulted for presurgical clearance as well as medical management throughout hospitalization. Patient seen and fully evaluated at bedside. Patient reports possible history of atrial fibrillation stating that he was told by many nurses that he had atrial fibrillation but reports when evaluated by consulting project director he was told he did not. Patient has recently had cardiac workup with Cardiac catheterization completed 04/05/21 revealing predominantly mid CAD and a 50% mid LAD lesion, cardiology recommended aggressive risk factor modification and continued medical management of LAD lesion. Echocardiogram completed 04/25/21 revealed an EF of 45-50%.. Orthospine specialist reported plan is for patient to undergo surgical stabilization of L5 AO burst fracture with possible lytic foci of L5 Sunday08/23/21. Physical exam: Patient seen and fully evaluated at bedside this morning. He reports back pain currently controlled but reports he is having pain in his right lower extremity along with continued weakness. Patient continues to deny having any numbness or experiencing involuntary loss of bowel or bladder and denies experiencing any saddlebag anesthesias. Tentative plan is for patient to undergo surgical stabilization of L5 AO burst fracture with possible lytic foci of L5 tomorrow with Dr. Anderson. Patient with psoriasis flare to face, takes triamcinolone cream at home for treatment, we will reorder at this time. Vital signs reviewed and stable. General: Nontoxic, no distress and appears stated age. Obese male. Derm: Skin warm and dry, normal coloration for ethnicity. Patient with psoriasis rash to face Head: Atraumatic, normocephalic and symmetric. Eyes: EOMs intact, no lid lag, and anicteric sclera Mouth: no lip lesions, mucus membranes moist Cardiovascular: Irregularly irregular with normal S1S2, no murmur, positive posterior tibial pulses bilaterally, and cap refill < 2 seconds. Lungs: Respirations even, regular, and unlabored on room air. Lungs CTA bilaterally, no rhonchi, no rales, no wheezing, and no accessory muscle usage. Abdominal: soft, nontender to palpation, no guarding, no appreciable organomegaly Ext: ROM intact. No gross muscle atrophy, no edema, no contractures Neuro: Speech clear, face symmetrical and CN II-XII grossly intact. Patient with equal and moderate strength in bilateral upper and lower extremities. Patient reports decreased sensation to bilateral lower extremities Psych: Alert and oriented to person, place, time, and situation. Appropriate and pleasant affect. Assessment and Plan of Care: Presurgical clearance for surgical stabilization of L5 AO burst fracture with possible lytic foci of L5. Back pain -NSQUIP revealing a below average risk of serious complication with patient of 2.7% below average of 3.8%, a below average risk of cardiac complication at 0.2% with average of 0.3%, and a below average risk of 0.1% with average is 0.2%. -Recommend obtaining preoperative EKG, otherwise patient is medically optimized for surgery at this time with no recommended need for further testing. Dizziness/lightheadedness with frequent falls secondary to chronic benign positional vertigo -Fall precautions -Encourage patient to slowly rise and slow to change positions. -Continue Florinef -Neurology following, appreciate further recommendations Hypertension, uncontrolled -Patient receiving metoprolol 50 mg 3 times daily along with Norvasc. Norvasc increased to 10 mg daily at this time. -Continue to monitor vital signs closely. BPH -Continue Flomax GERD -Continue Protonix. Thank you for allowing us to participate in the care of this pleasant patient. Do not hesitate to contact us with questions. Someone can be reached from the [facility] hospitalist group all hours of the day at [phone] or via [employer]. I reviewed the documentation as provided by the JANE above, who is the original author of this note. I agree with the documented assessment and plan, with the following changes: none Objective - Vital Signs Vital signs: Vital Signs Temp 98.3 F 08/22/21 04:25 Pulse 68 08/22/21 04:25 Resp 18 08/22/21 04:25 BP 161/77 08/22/21 04:25 Pulse Ox 95 08/22/21 04:25 FiO2 Intake & Output 08/21/21 08/22/21 08/22/21 18:59 06:59 18:59 Output Total 950 250 Balance -950 -250 Output: Urine 950 250 Other: Voiding Method Urinal # Voids 1 - Labs CBC & Chem 7: 08/21/21 16:42 08/22/21 06:22 Labs: Abnormal Lab Results - Last 24 Hours (Table) 08/21/21 Range/Units 16:42 MCHC 30.9 L (31.0-37.0) g/dL
[2021-08-22] MEDS: LACTATED RINGERS 1,000 ML IV SCH (15:47)
[2021-08-22] MEDS: TRIAMCINOLONE ACET 0.1% OINTMENT 15 GM TUBE TOPICAL SCH ×2 (15:48→21:26)
[2021-08-22] MEDS: BUTALB/APAP/CAFF 50-325-40MG TAB PO PRN (17:54)
[2021-08-22] MEDS: ATORVASTATIN 40 MG TAB PO SCH (21:26)
[2021-08-23] MEDS: oxyCODONE-APAP 5-325MG 1 EACH TAB PO PRN ×2 (00:25→21:34)
[2021-08-23] MEDS: CYCLOBENZAPRINE 10 MG TAB PO PRN ×2 (02:08→21:34)
[2021-08-23] MEDS: IBUPROFEN 400 MG TAB PO PRN (02:08)
[2021-08-23] MEDS: HYDROmorphone 1 MG/ML 1 ML SYRINGE IVP PRN ×2 (03:25→19:30)
[2021-08-23] MEDS ORDERED: VANCOMYCIN 2,000 MG in SODIUM CHLORIDE 0.9% 500 ML 500 ML IVPB PRN (05:00)
[2021-08-23] MEDS ORDERED: VANCOMYCIN IV PER PHARMACY 1 EACH MISC MISCELLANE PRN ×2 (06:00→12:31)
[2021-08-23] MEDS ORDERED: TRANEXAMIC ACID 1,000 MG in SODIUM CHLORIDE 0.9% 100 ML IVPB ONE ×4 (06:46)
[2021-08-23 07:27] LABS: Basophils # (A) 0.1 k/uL (0-0.2); Basophils % (A) 1 %; Eosinophils # (A) 0.3 k/uL (0-0.7); Eosinophils % (A) 3 %; HGB 12.4 gm/dL (13.0-17.5); Lymphocytes # (A) 1.9 k/uL (1.0-4.8); Lymphocytes % (A) 18 %; MCH 29.1 pg (25.0-35.0); MCHC 31.7 g/dL (31.0-37.0); MCV 91.8 fL (80.0-100.0); Mean Platelet Volume 7.4; Monocytes # (A) 0.9 k/uL (0-1.0); Monocytes % (A) 9 %; Neutrophils # (A) 7.5 k/uL (1.3-7.7); Neutrophils % (A) 68 %; Platelet Count 195 k/uL (150-450); RBC 4.25 m/uL (4.30-5.90); RDW 13.5 % (11.5-15.5)
[2021-08-23 07:53] LABS: INR 0.9 (<1.2); Prothrombin Time 10.3 sec (9.0-12.0)
[2021-08-23] MEDS: LACTATED RINGERS 1,000 ML IV SCH ×2 (07:57→08:52)
[2021-08-23 08:20] LABS: African American GFR (CKD) >90 (>60 ml/min/1.73 sqM); Anion Gap 6 mmol/L; Blood Urea Nitrogen 22 mg/dL (9-20); Calcium 8.9 mg/dL (8.4-10.2); Carbon Dioxide 30 mmol/L (22-30); Chloride 99 mmol/L (98-107); Glucose 128 mg/dL (74-99); Non-African American GFR(CKD) 80 (>60 ml/min/1.73 sqM); Potassium 3.8 mmol/L (3.5-5.1); Sodium 135 mmol/L (137-145)
[2021-08-23] MEDS ORDERED: ONDANSETRON 4 MG/2 ML VIAL ONE (08:35)
[2021-08-23 08:37] LABS: Glucose,Whole Blood 125 mg/dL (75-99)
[2021-08-23] MEDS ORDERED: ONDANSETRON 4 MG/2 ML VIAL IVP ONE (08:38)
--- NOTE | 2021-08-23 08:49 | P.PN ---
Subjective Progress Note Date: 08/23/21 Pt s/e in Pre op. Ready for procedure. Discussed all risks and benefits again. he is ready and willing to proceed. Site marked. Consent confirmed and signed. Objective - Vital Signs Vital signs: Vital Signs Temp 98.6 F 08/23/21 07:58 Pulse 78 08/23/21 07:58 Resp 18 08/23/21 07:58 BP 127/70 08/23/21 07:58 Pulse Ox 93 L 08/23/21 07:58 FiO2 Intake & Output 08/22/21 08/23/21 08/23/21 18:59 06:59 18:59 Output Total 300 Balance -300 Output: Urine 300 Other: Voiding Method Urinal Urinal # Voids 2 4 - Exam Exam repeated, no significant changes. PHYSICAL EXAMINATION: Vitals: Stable General: Awake, alert, appropriate for age, in no acute distress. HEENT: No unusual neck masses around region of lateral neck triangle, thyroid, supraclavicular groove. Extremities: Skin warm and dry without no acute lesions, coloration, temperature, skin intact, no tenderness or erythema. Integument: Hairy patches: Absent Dorsal skin dimples: Absent Cafe au lait spots: Absent Surgical incisions: Knee right, well healed. Palpation: Please see Pain drawing on Intake sheet for further detail. (Tenderness = T, Nontender = NT, Swelling = S, Ecchymosis = E) Findings on Midline and paraspinal palpation and percussion: Cervical: NT Thoracic: NT Lumbar: TTP with paraspinal and midline tenderness Sacral: NT Special findings: None POSTURAL and MUSCULO-SKELETAL EVALUATION: Neck ROM: [Unrestricted in six directions] Lumbar ROM: Restricted due to pain at this time Shoulder ROM: Symmetric in abduction, ER/IR Hip ROM: Symmetric in abduction, adduction, ER/IR Knee ROM: Right knee restricted due to previous surgeries and issues Hands: Normal appearing structure L and R Feet: Normal appearing structure L and R VASCULAR STATUS : Wrist Pulses: [2/4 bilateral radial and ulnar] Pedal Pulses: [2/4 bilateral DP and PT] Color: mottled, vasculopath Edema: b/l LE 2+ NEUROLOGIC EXAMINATION: Mental Status: Awake and alert, fully oriented, with normal attention, concentration and memory, and fluent, appropriate speech. Cranial Nerves: I: Olfactory not tested. II: Visual acuity normal, no visual field deficit noted with confrontation. III,IV: Normal pupillary reflexes & intact extraocular movements without nystagmus. V,: Intact symmetrical facial sensation. VII: Intact symmetrical facial motor movement VIII: Hearing intact. IX,X: Intact gag, swallow, & normal voice. XI: Sternocleidomastoid, trapezius function intact. XII: Tongue midline with normal movements. Special Tests: Margret-Tinel sign - Carpal region: Absent Bilateral Straight Leg Raising: Absent Bilateral Motor Exam (0-5/5, N/T) STRENGTH UPPER EXTREMITY Shoulder Abd (Not part of DON Motor score): RIGHT [5] LEFT [5] Elbow Flexors: RIGHT [5] LEFT [5] Elbow Extensor: RIGHT [5] LEFT [5] Wrrist Dorsiflexors: RIGHT [5] LEFT [5] Finger Abductor: RIGHT [5] LEFT [5] Frontend Engineer: RIGHT [5] LEFT [5] LOWER EXTREMITY Hip Flexor (Not part of DON Motor Score): RIGHT 3 LEFT [5] Knee Flexor: RIGHT 3 LEFT [5] Knee Extensor: RIGHT 3 LEFT [5] Ankle Dorsiflexion: RIGHT 3 LEFT [5] Ankle Plantarflexion: RIGHT 3 LEFT [5] EHL: RIGHT 3 LEFT [5] FHL: RIGHT 3 LEFT [5] DON Motor Score: RIGHT [50]/50 LEFT [50]/50 REFLEXES Biecp: RIGHT [2] LEFT [2] Tricep: RIGHT [2] LEFT [2] Brachioradialis: RIGHT [2] LEFT [2] Patellar: RIGHT absent patella LEFT [2] Achilles: RIGHT 1 LEFT [2] Pathological Reflexes Garcia's: RIGHT [Absent] LEFT [Absent] Babinski: RIGHT [Absent] LEFT [Absent] Clonus: RIGHT [None] LEFT [None] SENSORY Joint Position: [Intact bilaterally] Vibration [Intact bilaterally] Pain and LT sense [Intact C5-T1 and L2-S1] Dermatomal deficit global deficit on RLE Gait and Functional Evaluation: Ambulatory aids: Walker Unable to ambulate at this time - Labs CBC & Chem 7: 08/23/21 07:08 08/23/21 07:08 Labs: Abnormal Lab Results - Last 24 Hours (Table) 08/22/21 08/23/21 08/23/21 Range/Units 06:22 07:08 07:08 WBC 11.0 H (3.8-10.6) k/uL RBC 4.25 L (4.30-5.90) m/uL Hgb 12.4 L (13.0-17.5) gm/dL Sodium 135 L (137-145) mmol/L Carbon Dioxide 28.5 H (20.0-27.5) mmol/L BUN 22 H (9-20) mg/dL Glucose 132 H 128 H (70-110) mg/dL POC Glucose (mg/dL) (75-99) mg/dL 08/23/21 Range/Units 08:36 WBC (3.8-10.6) k/uL RBC (4.30-5.90) m/uL Hgb (13.0-17.5) gm/dL Sodium (137-145) mmol/L Carbon Dioxide (20.0-27.5) mmol/L BUN (9-20) mg/dL Glucose (70-110) mg/dL POC Glucose (mg/dL) 125 H (75-99) mg/dL Assessment and Plan Assessment: 71 yo male severe low back pain s/p ffs -L5 AO type A4 burst fracture -Possible lytic foci L5 -Multiple medical commodities Plan: Spine Surgery Risk Review Kyle Bui is a 71 to male presenting for evaluation of severe LBP, inability to ambulate due to this and RLE pain and weakness. It was my pleasure to have seen and examined Kyle Bui In our visit today we have had a chance to go over subjective complaints, physical examination findings and treatments including the natural course history without intervention and various interventional options. The patients imaging demonstrates L5 a/c VCF fracture with burst component On physical exam, Kyle Bui demonstrates severe LBP, inability to perform ADL due to pain, RLE weakness and pain . I have explained to the patient that as their condition progresses it will cause further neurological deficits and eventual paralysis. Based on the patients imaging, physical exam, and the rapid progression and disabling nature of their symptoms, at this time I recommend surgery in the form or a: L4-S1 stabilization, L5 biopsy with kyphoplasty I discussed the risk and benefits of this procedure at length with Kyle Bui The patient agreed to considered pursuing the procedure abovementioned. Prior to surgery, she should follow up with her PCP (Cardio, ID, IM etc) for clearance. Questions were invited and answered, and the patient wishes to proceed as outlined below. Currently, I am recommendin. L4-S1 stabilization with L5 biopsy and kyphosplasty and L5-S1 decompression 2. Follow up with PCP for surgical clearance 3. Review of surgical risks and benefits as well as an educational packet on the proposed surgical procedure. Risks: All surgical procedures come with inherent risks, including those related to positioning, anesthesia, intraoperative findings, and postoperative complications. It is important to understand that surgery does not come with any guarantee of a successful outcome as complications and adverse events are always possible. The patient was given a handout in office today discussing the surgical procedure and risks associated with the intervention, both of which were discussed with the patient. These risks include but are not limited to the following: * Experiencing same, different or even worse symptoms in back, neck, arms, or legs compared to before surgery. * Requiring further surgery or other forms of treatment presently or at some time in the future at same or other levels of the intended spine surgery. * On an extreme but fortunately relatively rare basis severe complication such as blindness, stroke, heart attack, temporary and/or permanent nerve injury, paralysis, coma, or may occur, sometimes without known explanation. * Surgical complications may include but are not limited to risk of infection, fluid accumulation in the surgical dissection site, including a seroma or hematoma, that requires additional surgery, wound drainage, bleeding, new numbness or weakness, vision changes/loss, spinal fluid leakage, non-healing and/or infected incision, headaches, difficulty or inability to swallow, hoarseness, hemopneumothorax, pneumothorax, impotence, retrograde ejaculation, vaginal dryness; injury to nerves, spinal cord, blood vessels, lymphatics or other vital organs (i.e., bowel injury, injury to the great vessels); heterotopic bone formation; complications related to the hardware such as screws, rods, cages including misplaced hardware, device failure, instrumentation at the wrong spine level, hardware fracture/breakage, or hardware loosening; vertebral failure of the spinal column above or below the newly placed hardware; retained surgical instrumentations or devices and the need for further surgery. * Medical risks of the planned spine surgery include but are not limited to generalized Infections to the whole body or local areas outside of the surgical site (sepsis), heart attack, bleeding, anaphylaxis, meningitis, seizure, epilepsy, hearing loss, burn lake, laceration of the head or other areas of the body, bruising, hypersensitivity of the skin, bladder over dist ension; allergic reaction; shoulder injury related to positioning; fat, blood and air clots to other areas of the body like heart, lungs, brain; failure of internal organs such as lungs, kidneys, liver and excessive bleeding. If blood transfusions are necessary, note that transfusions may cause intolerance reactions such as anaphylaxis or other complex reactions. * Despite best efforts, the results of spine surgery might not heal in terms of bone, soft tissues such as skin, fascia, ligaments, and joints. Additionally, in order to achieve best possible results, spine surgery may be carried out beyond the initially planned levels and involve decompression, fusion including insertion of hardware at levels other than the original intended area of surgical interest change some portions of the procedure in order to ensure the best possible outcomes. * With spine surgery and spinal fusion, there are different off label uses of instrumentation (devices, implants and hardware) as well as biological substances (bone morphogenic proteins, demineralized bone matrix) as well as using extra bone from allograft sources (i.e. cadaver bone) or autograft (iliac crest bone, ribs, or the spine itself). The patient has been given information about these practices and their inherent risks and benefits. The patient has had a chance to review all the listed information, has been given print outs detailing this information, and has had all his/her questions answered to their satisfaction. It was my pleasure to have seen and examined Kyle Bui. In our visit today we have had a chance to go over my understanding of our patient's current condition, the natural course history without intervention and various interventional options. Questions were invited and answered, and the patient wishes to proceed as outlined above. I have seen and examined the patient for 25 minutes and we have spent more than 50% of the time in repeat and detailed counseling about the patient's condition, its natural course history with out and as much as can be predicted with surgery and re-review of various surgical treatment options. In conclusion, Kyle Bui and requested we proceed with the above suggested surgery and are willing to accept risks and limitations of the suggested surgery as nature of the disease process and our best attempts at treatment for the condition. Thank you again for allowing us to be part of your patient's care. Please don't hesitate to contact me if you have any further questions. Signed and authenticated by: Emir Maxwell [facility] [address] [place] [place] [address]
[2021-08-23] MEDS ORDERED: HYDROmorphone (PF) 1 MG/ML ONE (08:52)
[2021-08-23] MEDS ORDERED: ePHEDrine 50 MG/ML 1 ML VIAL ONE (08:52)
[2021-08-23] MEDS ORDERED: MIDAZOLAM 2 MG/2 ML VIAL ONE (08:52)
[2021-08-23] MEDS ORDERED: VECURONIUM 10 MG VIAL IV ONE (08:52)
[2021-08-23] MEDS ORDERED: KETAMINE 10 MG/ML 20 ML VIAL ONE (08:52)
[2021-08-23] MEDS ORDERED: fentaNYL (PF) 50 MCG/ML 2 ML AMP ONE (08:52)
[2021-08-23] MEDS ORDERED: TRANEXAMIC ACID IN NACL,ISO-OS 1,000 MG/100 ML BAG ONE (08:52)
[2021-08-23] MEDS ORDERED: PROPOFOL 10 MG/ML 20 ML VIAL IV ONE (08:52)
[2021-08-23] MEDS ORDERED: LIDOCAINE 2% INJ 20 MG/ML (2 ML VIAL) ONE (08:52)
[2021-08-23] MEDS ORDERED: SUCCINYLCHOLINE CHLORIDE 100 MG/5 ML SYR IV ONE (08:52)
[2021-08-23] MEDS ORDERED: PHENYLEPHRINE-0.9% NACL SYG 1,000 MCG/10 ML SYRINGE ONE (08:52)
[2021-08-23] MEDS ORDERED: BUPIVACAIN-EPI 0.25%-1:200,000 30 ML VIAL SQ ONE (09:45)
[2021-08-23] MEDS ORDERED: GELATIN SPONGE,ABSORB (LARGE) 1 EACH SPONGE TOPICAL ONE (09:45)
[2021-08-23] MEDS ORDERED: THROMBIN (BOVINE) 5,000 UNIT VIAL TOPICAL ONE (09:48)
[2021-08-23] MEDS ORDERED: IOPAMIDOL M200 10 ML VIAL MISCELLANE ONE (10:48)
[2021-08-23] MEDS ORDERED: LACTATED RINGERS 1,000 ML IV ONE (10:52)
--- NOTE | 2021-08-23 12:46 | FL ---
Fluoroscopy HISTORY: L5 fracture 1 minute 57 seconds fluoroscopy time supplied to the referring clinician. 9 intraoperative C-arm jamie ges document the procedure. See dictated report from orthopedic surgery.
[2021-08-23 12:58] LABS: Glucose,Whole Blood 169 mg/dL (75-99)
[2021-08-23] MEDS ORDERED: HYDROmorphone 0.5 MG/0.5 ML SYRINGE IVP ONE (13:10)
[2021-08-23] MEDS ORDERED: hydrALAZINE HCL 20 MG/ML 1 ML VIAL IVP ONE (13:47)
[2021-08-23] MEDS: GABAPENTIN 300 MG CAP PO SCH ×3 (14:37→21:34)
[2021-08-23] MEDS: METOPROLOL TARTRATE 50 MG TAB PO SCH ×3 (14:37→21:34)
[2021-08-23] MEDS: PANTOPRAZOLE 40 MG TABLET PO SCH (14:37)
[2021-08-23] MEDS: CALCIUM CARBONATE 500 MG CHEWABLE PO SCH (14:37)
[2021-08-23] MEDS: DULoxetine HCL 60 MG CAPSULE.DR PO SCH ×2 (14:37→21:34)
[2021-08-23] MEDS: TRIAMCINOLONE ACET 0.1% OINTMENT 15 GM TUBE TOPICAL SCH ×2 (14:38→21:34)
[2021-08-23] MEDS: PYRIDOXINE 50 MG TAB PO SCH (14:38)
--- NOTE | 2021-08-23 14:59 | P.PN ---
Subjective Progress Note Date: 08/23/21 Hospital course: Patient is a very pleasant 71-year-old male with a past medical history of hypertension, hyperlipidemia, chronic systolic heart failure with EF of 45-50%, history of chronic benign positional vertigo with previous brainstem operation for decompression, GERD, BPH, and chronic back pain. Patient currently admitted under orthospine surgical team and scheduled to undergo surgical stabilization of L5 AO burst fracture with possible lytic foci of L5. We have been consulted for presurgical clearance as well [facility] Patient seen and fully evaluated at bedside. Patient reports possible history of atrial fibrillation stating that he was told by many nurses that he had atrial fibrillation but reports when evaluated by pediatric occupational therapist he was told he did not. Patient has recently had cardiac workup with Cardiac catheterization completed 04/05/21 revealing predominantly mid CAD and a 50% mid LAD lesion, cardiology recommended aggressive risk factor modification and continued medical management of LAD lesion. Echocardiogram completed 04/25/21 revealed an EF of 45-50%.. Orthospine specialist took patient for surgical stabilization of L5 AO burst fracture with possible lytic foci of L5 on 08/23/21. Physical exam: Patient seen and fully evaluated this afternoon upon return from surgery with Dr. Anderson. At this time patient lying supine in bed and appears comfortable. He remains slightly sedated, but awoken easily via verbal stimuli. His vital signs were stable, patient reports currently pain is controlled. His morning labs were stable revealing only mild leukocytosis with WBC count of 11.0. Vital signs reviewed and stable. General: Nontoxic, no distress and appears stated age. Obese male. Derm: Skin warm and dry, normal coloration for ethnicity. Patient with psoriasis rash to face Head: Atraumatic, normocephalic and symmetric. Eyes: EOMs intact, no lid lag, and anicteric sclera Mouth: no lip lesions, mucus membranes moist Cardiovascular: Irregularly irregular with normal S1S2, no murmur, positive posterior tibial pulses bilaterally, and cap refill < 2 seconds. Lungs: Respirations even, regular, and unlabored on room air. Lungs CTA bilaterally, no rhonchi, no rales, no wheezing, and no accessory muscle usage. Abdominal: soft, nontender to palpation, no guarding, no appreciable organomegaly Ext: ROM intact. No gross muscle atrophy, no edema, no contractures Neuro: Speech clear, face symmetrical and CN II-XII grossly intact. Patient with equal and moderate strength in bilateral upper and lower extremities. Patient reports decreased sensation to bilateral lower extremities Psych: Alert and oriented to person, place, time, and situation. Appropriate and pleasant affect. Assessment and Plan of Care: Presurgical clearance for surgical stabilization of L5 AO burst fracture with possible lytic foci of L5. Back pain -NSQUIP revealing a below average risk of serious complication with patient of 2.7% below average of 3.8%, a below average risk of cardiac complication at 0.2% with average of 0.3%, and a below average risk of 0.1% with average is 0.2%. -Recommend obtaining preoperative EKG, otherwise patient is medically optimized for surgery at this time with no recommended need for further testing. Dizziness/lightheadedness with frequent falls secondary to chronic benign positional vertigo -Fall precautions -Encourage patient to slowly rise and slow to change positions. -Continue Florinef -Neurology following, appreciate further recommendations Hypertension, uncontrolled -Patient receiving metoprolol 50 mg 3 times daily along with Norvasc. Norvasc i ncreased to 10 mg daily at this time. -Continue to monitor vital signs closely. Facial Psoriasis -Continue use of triamcinolone cream on face, avoiding contact with mucous membranes and/or eyes. BPH -Continue Flomax GERD -Continue Protonix. Thank you for allowing us to participate in the care of this pleasant patient. Do not hesitate to contact us with questions. Someone can be reached from the [facility] hospitalist group all hours of the day at [phone] or via [employer]. Emre Fierro NP rendered care for this patient independently, reviewed the findings and plan as documented in the note above. I did not physically speak with or examine the patient on this date. Objective - Vital Signs Vital signs: Vital Signs Temp 98.6 F 08/23/21 07:58 Pulse 88 08/23/21 14:04 Resp 16 08/23/21 14:04 BP 141/65 08/23/21 14:04 Pulse Ox 96 08/23/21 14:04 FiO2 Intake & Output 08/22/21 08/23/21 08/23/21 18:59 06:59 18:59 Intake Total 3800 Output Total 300 1150 Balance -300 2650 Weight 127.006 kg Intake: IV 3800 Output: Urine 300 1000 Estimated Blood Loss 150 Other: Voiding Method Urinal Urinal # Voids 2 4 - Labs CBC & Chem 7: 08/23/21 07:08 08/23/21 07:08 Labs: Abnormal Lab Results - Last 24 Hours (Table) 08/23/21 08/23/21 08/23/21 Range/Units 07:08 07:08 08:36 WBC 11.0 H (3.8-10.6) k/uL RBC 4.25 L (4.30-5.90) m/uL Hgb 12.4 L (13.0-17.5) gm/dL Sodium 135 L (137-145) mmol/L BUN 22 H (9-20) mg/dL Glucose 128 H (74-99) mg/dL POC Glucose (mg/dL) 125 H (75-99) mg/dL 08/23/21 Range/Units 12:47 WBC (3.8-10.6) k/uL RBC (4.30-5.90) m/uL Hgb (13.0-17.5) gm/dL Sodium (137-145) mmol/L BUN (9-20) mg/dL Glucose (74-99) mg/dL POC Glucose (mg/dL) 169 H (75-99) mg/dL
[2021-08-23] MEDS: MULTIVITAMINS, THERA 1 EACH TAB PO SCH (15:23)
[2021-08-23] MEDS: amLODIPine 10 MG TAB PO SCH (15:23)
[2021-08-23] MEDS: SUCRALFATE 1 GM TAB PO SCH (15:23)
[2021-08-23] MEDS: TAMSULOSIN 0.4 MG CAP.ER.24H PO SCH (15:23)
[2021-08-23] MEDS: CYANOCOBALAMIN 500 MCG TAB PO SCH (15:23)
[2021-08-23] MEDS: FLUDROCORTISONE 0.1 MG TAB PO SCH (15:23)
[2021-08-23] MEDS: MAGNESIUM OXIDE 400 MG TAB PO SCH (15:23)
[2021-08-23] MEDS: FOLIC ACID 1 MG TAB PO SCH (15:24)
[2021-08-23] MEDS: THIAMINE 100 MG TAB PO SCH (15:24)
[2021-08-23] MEDS: VANCOMYCIN 2,000 MG in SODIUM CHLORIDE 0.9% 500 ML 500 ML IVPB SCH (18:01)
[2021-08-23] MEDS: BUTALB/APAP/CAFF 50-325-40MG TAB PO PRN (21:34)
[2021-08-23] MEDS: ATORVASTATIN 40 MG TAB PO SCH (21:34)
[2021-08-24] MEDS: HYDROmorphone 1 MG/ML 1 ML SYRINGE IVP PRN ×5 (01:52→22:06)
[2021-08-24] MEDS: oxyCODONE-APAP 5-325MG 1 EACH TAB PO PRN ×4 (03:34→20:34)
[2021-08-24] MEDS: IBUPROFEN 400 MG TAB PO PRN (03:34)
[2021-08-24] MEDS: VANCOMYCIN 2,000 MG in SODIUM CHLORIDE 0.9% 500 ML 500 ML IVPB SCH ×2 (05:59→17:40)
[2021-08-24 07:05] LABS: African American GFR (CKD) >90 (>60 ml/min/1.73 sqM); Non-African American GFR(CKD) 86 (>60 ml/min/1.73 sqM)
[2021-08-24] MEDS: CALCIUM CARBONATE 500 MG CHEWABLE PO SCH (08:42)
[2021-08-24] MEDS: PYRIDOXINE 50 MG TAB PO SCH (08:43)
[2021-08-24] MEDS: amLODIPine 10 MG TAB PO SCH (08:43)
[2021-08-24] MEDS: PANTOPRAZOLE 40 MG TABLET PO SCH (08:43)
[2021-08-24] MEDS: METOPROLOL TARTRATE 50 MG TAB PO SCH ×3 (08:43→22:05)
[2021-08-24] MEDS: MAGNESIUM OXIDE 400 MG TAB PO SCH (08:43)
[2021-08-24] MEDS: DULoxetine HCL 60 MG CAPSULE.DR PO SCH ×2 (08:43→20:34)
[2021-08-24] MEDS: SUCRALFATE 1 GM TAB PO SCH (08:43)
[2021-08-24] MEDS: FLUDROCORTISONE 0.1 MG TAB PO SCH (08:43)
[2021-08-24] MEDS: MULTIVITAMINS, THERA 1 EACH TAB PO SCH (08:43)
[2021-08-24] MEDS: GABAPENTIN 300 MG CAP PO SCH ×3 (08:44→22:05)
[2021-08-24] MEDS: CYANOCOBALAMIN 500 MCG TAB PO SCH (08:44)
[2021-08-24] MEDS: FOLIC ACID 1 MG TAB PO SCH (08:44)
[2021-08-24] MEDS: TRIAMCINOLONE ACET 0.1% OINTMENT 15 GM TUBE TOPICAL SCH ×2 (08:44→22:06)
[2021-08-24] MEDS: TAMSULOSIN 0.4 MG CAP.ER.24H PO SCH (08:44)
[2021-08-24] MEDS: THIAMINE 100 MG TAB PO SCH (08:44)
--- NOTE | 2021-08-24 09:00 | CT ---
EXAMINATION TYPE: CT lumbar spine wo con DATE OF EXAM: 08/24/2021 COMPARISON: 08/12/2021 HISTORY: Lumbar stabilization CT DLP: 1170 mGycm CONTRAST: None TECHNIQUE: CT of the lumbar spine is performed on a spiral scan at 3 mm thick sections. Reconstructed images are performed in the coronal and sagittal planes. FINDINGS: T10-T11: No focal disc herniation or significant disc bulge is evident. No spinal canal stenosis or neural foraminal stenosis is present. Facet hypertrophy is present. T11-12: No focal disc herniation or significant disc bulge is evident. No spinal canal stenosis or neural foraminal stenosis is present. T12-L1: No focal disc herniation or significant disc bulge is evident. No spinal canal stenosis or neural foraminal stenosis is present. There is some calcification of the posterior longitudinal ligam ent. This may have mild anterior thecal sac contact. L1-L2: No focal disc herniation or significant disc bulge is evident. No spinal canal stenosis or n eural foraminal stenosis is present L2-L3: Broad-based disc bulge with mild anterior thecal sac contact. Severe right and moderate left f oraminal stenosis is present L3-L4: Broad-based disc bulge is moderate anterior thecal sac flattening. No spinal canal stenosis pr esent. Moderate to severe bilateral foraminal stenosis is present. Beam hardening artifact from pedicle screws limits evaluation of the L4-5 and L5-S1 levels. Obvious s tenosis is not identified. Moderate bilateral foraminal narrowing is present. This may be greater at the right L4-5 level. This is unchanged from comparison There is anterior superior vertebral body jose nges at L5. Vertebral alignment appears normal. IMPRESSION: 1. Postsurgical changes L4-5 limits evaluation of these levels. 2. Foraminal narrowing which may be severe at L2-3 and L3-4 and on the right at L4-5. Correlate with radicular symptoms. 3. Compression deformity superior L5 endplate.
--- NOTE | 2021-08-24 09:51 | P.PN ---
Subjective Progress Note Date: 08/24/21 Principal diagnosis: L5 a/c VCF fracture with burst component Back pain, Leg pain Patient seen and examined today. He is sitting upright in bed. Patient continues to have c/o pain. Patient denies any new numbness or tingling to bilateral lower extremities. He states he notices tingling in bilateral thighs. Patient is able to move bilateral lower extremities off of bed, and wiggle his toes. He denies any loss of bowel, Gastelum catheter remains in place and patent. Encouraged patient to work with physical therapy. Patient has been afebrile, denies nausea/vomiting, or chest pain. Objective - Vital Signs Vital signs: Vital Signs Temp 98.7 F 08/24/21 05:00 Pulse 81 08/24/21 05:00 Resp 18 08/24/21 05:00 BP 122/67 08/24/21 05:00 Pulse Ox 94 L 08/24/21 05:00 FiO2 Intake & Output 08/23/21 08/24/21 08/24/21 18:59 06:59 18:59 Intake Total 4300 990 Output Total 1150 1000 500 Balance 3150 -10 -500 Weight 127.006 kg Intake: IV 3800 Intake, IV Titration 500 Amount Vancomycin 2,000 mg In 500 Sodium Chloride 0.9% 500 ml 500 ml @ 167 mls/hr IVPB Q12H [facility] Rx#: [id number] Oral 990 Output: Urine 1000 1000 500 Estimated Blood Loss 150 Other: Voiding Method Indwelling Catheter - Exam Physical Examination General: The patient is awake and alert, in no acute distress Skin: Skin is warm and dry with noted generalized eczema. Hairy patches absent, no dorsal skin dimples, no cafe au lait spots, Surgical incisions in lumbar region. Eye: Pupils are equal, round and reactive to light, extra-ocular movements are intact; there is normal conjunctiva bilaterally. Neck: The neck is supple, there is no tenderness and ROM intact. Cardiovascular: There is a regular rate and rhythm. No murmur, rub or gallop is appreciated. +2 edema to BLE. Respiratory: Lungs are clear to auscultation, respirations are non-labored, breath sounds are equal. Gastrointestinal: Soft, non-distended, non-tender abdomen . Back: There is no tenderness to palpation in the paralumbar region. There is no obvious deformity . Musculoskeletal: ROM limited to lumbar spine and right lower extremity; 3/5 in RLE. FROM in all other major muscle groups with 5/5 strength. Neurological: CN 2-12 intact. There are no obvious motor or sensory deficits. Movement and coordination equal and intact. Sensory exam to light touch intact C5-T1 and intact from L2-S1. Reflexes 2/4 in bilateral upper and lower extremities. Negative Hoffmans, babinski, and clonus signs. Psychiatric: Cooperative, appropriate mood & affect, normal judgment. - Labs CBC & Chem 7: 08/23/21 07:08 08/24/21 05:59 Labs: Abnormal Lab Results - Last 24 Hours (Table) 08/23/21 Range/Units 12:47 POC Glucose (mg/dL) 169 H (75-99) mg/dL Assessment and Plan Assessment: Post Op Day 1: L4-S1 stabilization with L5 biopsy and kyphosplasty and L5-S1 decompression -severe low back pain s/p ffs -L5 AO type A4 burst fracture -Possible lytic foci L5 -Multiple medical commodities Plan: Plan: -Appreciate community resource consultant and team management. -Activity: Ambulate QID, OOB all meals, up and about, limit lifting bending twisting to less than 5 lbs. Use walker or cane if needed for stability. -Daily PT/OT, increase ambulation strength and balance. -Brace when up and about, not needed in bed or chair -Pain control: Adequate at this time -Meds: reviewed -GI ppx: senna, Miralax -DC gastelum when up and about, bedside commode if needed -DVT PPX: Ok to start Heparin tonight -Hygiene: Shower today. Maintain dressing clean and dry. Meticulous cleaning after BMs away from the incision site -Encourage IS 10x/hr -Dispo: Anticipate discharge to [facility] within 48 hrs. *I reviewed and discussed this case with my attending Dr. Anderson, whom has reviewed this chart and films and is in agreement with assessment and plan of care as outlined above. I have personally seen and examined the patient, performed the documentation and the assessment and plan as written. Number of minutes spent on the visit: 20m.
--- NOTE | 2021-08-24 13:35 | P.OP ---
Date of Procedure: 08/23/21 Preoperative Diagnosis: 71 yo male severe low back pain s/p ffs -L5 AO type A4 burst fracture -Possible lytic foci L5 -Multiple medical commodities Postoperative Diagnosis: 71 yo male severe low back pain s/p ffs -L5 AO type A4 burst fracture -Possible lytic foci L5 -Multiple medical commodities Procedure(s) Performed: 1. Posterior MIS approach to lumbar spine 2. Kyphoplasty with biopsy of L5 (49176) 3. L4-S1 stabilization (60301) 4. L5 open reduction and internal fixation (78489) 5. L5-S1 laminoforaminotomy (19400) 6. Use of Apurva 3D navigation for placement of screws (31736) 7. Use of intraoperative neuromonitoring 8. Interpretation of intraoperative flouroscopic imaging <1 hr. (77274) Implants: -Apurva [place] screws/rods -[place] cement Anesthesia: LORELEI Surgeon: Emir Anderson Digital Account Coordinator #1: Cynthia Benito (Was present and assisted in all parts of the case from positiong, to hardware placement, closure and dressing placement. ) Estimated Blood Loss (ml): 150 IV fluids (ml): 2,000 Urine output (ml): 300 Pathology: other (L5 vertebral body biopsy) Condition: stable Disposition: PACU Indications for Procedure: Kyle Bui is a 71 to male presenting for evaluation of severe LBP, inability to ambulate due to this and RLE pain and weakness. It was my pleasure to have seen and examined Kyle Bui In our visit today we have had a chance to go over subjective complaints, physical examination findings and treatments including the natural course history without intervention and various interventional options. The patients imaging demonstrates L5 a/c VCF fracture with burst component On physical exam, Kyle Bui demonstrates severe LBP, inability to perform ADL due to pain, RLE weakness and pain . I have explained to the patient that as their condition progresses it will cause further neurological deficits and eventual paralysis. Based on the patients imaging, physical exam, and the rapid progression and disabling nature of their symptoms, at this time I recommend surgery in the form or a: L4-S1 stabilization, L5 biopsy with kyphoplasty I discussed the risk and benefits of this procedure at length with Kyle Bui The patient agreed to considered pursuing the procedure abovementioned. Prior to surgery, she should follow up with her PCP (Cardio, ID, IM etc) for clearance. Questions were invited and answered, and the patient wishes to proceed as outlined below. Currently, I am recommendin. L4-S1 stabilization with L5 biopsy and kyphosplasty and L5-S1 decompression Description of Procedure: The patient was seen and examined in the preoperative area. All preoperative protocols were followed. Informed consent was obtained risks and benefits of the procedure were discussed at length. Risks including bleeding infection damage to the surrounding tissue and risk of reoperation were discussed with the patient. Risk of anesthesia up to and including was a discussed with the patient. These are outlined in the risk review. They were willing to accept these risks and all of the risks of surgery. The patient was given a weight- based dose of antibiotics in the form of vancomycin weight-based dose. The patient was seen and evaluated by the anesthesia team who deemed them fit for surgery. The site was marked, the patient was willing to proceed with the procedure. The patient was transferred to the operative suite by the Department of anesthesia. They were then drifted off to sleep by the department anesthesia and GETA was performed. The patient tolerated this well. White catheter was placed by nursing staff, atraumatically. Once confirmation of lines and ventilation the patient was transferred to a prone Jaret table very carefully. All bony prominences including wrists, elbows, axilla, chest, hips, and thighs, and feet were padded very well. Special attention was paid to the genitalia and these were padded accordingly. SCDs were placed on bilateral lower extremities and were connected. Arms were well padded and placed on arm boards up and out in the 90/90 position. Once in position, again we confirmed good ventilation capabilities and that lines were running appropriately. The patient's lumbar spine was then exposed. 1010s were placed outlining the incision site. Standard alcohol was used to clean the incision site and allowed to dry. C-arm was used to biomark the patient and confirm level for incision which was marked with a skin marker. Operative briefing was performed with all teams and everyone in agreement to proceed. The patient was then prepped and draped in a normal sterile fashion. Timeout was then performed and all parties were in agreement with the procedure to be performed. The spine mask was then placed around the previously by marked area ensuring that we had enough space to work it was then stuck to the patient and secured with Ioband. We then performed an intraoperative 3-D C-arm spent to acquire images. Once images were acquired we checked accuracy of the navigation and the navigation was accurate. We then using a navigated Jamshidi placed wires into L4 through percutaneous approach a skin neck was made the Jamshidi was advanced using navigation and once in good position of wire was placed in the Jamshidi removed. A navigated screw was then placed over this wire and secured into position. We then repeated this at S1 bilaterally. Once screws were in position they were tested using intraoperative neuro monitoring and all tested above 20 mA. We then proceeded with biopsy and kyphoplasty of L5 Jamshidi was introduced under AP and lateral fluoroscopy into the L5 pedicle into the L5 vertebral body. Once in good position through the Jamshidi was placed a drill followed by a biopsy needle the material that was brought back was sent to pathology as L5 vertebral body. There is no tumorous-like material and appeared more fibrous in nature. A curet was then used to create more of a void in attempts to reduce the endplates in this area back into position. We then inserted the balloon and expanded it under fluoroscopic guidance expanded well we then placed the trocar for cement and started injecting cement unfortunately once we started injecting cement the cement started to extremity 8 towards the disc space at L4 L5 and so it was promptly stopped and pressure taken off the cement did not extravasate any further and due to this we removed the Jamshidi and cement from this area as it would not stay within the vertebral body. We then turned our attention to decompression under fluoroscopic guidance tube retractors were placed at the L5-S1 interspace on the right-hand side to start. Microscope was brought in for visualization. Confirm position and once we did performed lamina foraminotomy on the right-hand side which exposed from pedicle to pedicle the foramen the nerve root was visualized and was decompressed using high-speed bur and Kerrison rongeur. We then performed further laminectomy and a [id number] approach which allowed decompression centrally as well as of the contralateral traversing and exiting nerve roots. Ligamentum was removed which was exuberant and overgrown in this area. This allowed for thorough decompression at this area. Meticulous hemostasis was performed and we thoroughly irrigated the area. Under direct visualization the retractor was then removed. Then proceeded with placement of the rods. Rods were placed percutaneously subfascially using x-ray guidance. Once rods were in position and within the tulip heads set screws were placed and were final tightened into position AP and lateral fluoroscopic imaging confirmed that the rods were within the tulip heads and in good position. After final tightening we then removed the tabs from the tulip heads and final images taken showed good reduction of fracture as well as decompression and placement of hardware. We then copiously irrigated the wounds with normal sterile saline 2 g of vancomycin powder replaced with the wounds. In the larger wounds we placed 0 Vicryl in the deep fascia followed by 0 Vicryl in the deep subcu tissue 2-0 Vicryl was then placed and superficial subcu tissue of all wounds and skin abhilash placed in the skin. Wound edges approximated very well the wounds were then cleaned sterilely and dressed with operative foam dressings. The patient was transferred back to their hospital bed atraumatically. Patient was then awakened and extubated by the department of anesthesia having tolerated the procedure very well with no complications. They were transferred to the postoperative care unit in stable condition.
--- NOTE | 2021-08-24 14:08 | P.PN ---
Subjective Progress Note Date: 08/24/21 History of Presenting Illness: Patient is a very pleasant 71-year-old male with a past medical history of hypertension, hyperlipidemia, chronic systolic heart failure with EF of 45-50%, history of chronic benign positional vertigo with previous brainstem operation for decompression, GERD, BPH, and chronic back pain. Patient currently admitted under orthospine surgical team and scheduled to undergo surgical stabilization of L5 AO burst fracture with possible lytic foci of L5. We have been consulted for presurgical clearance as well as medical management throughout hospitalization. Patient seen and fully evaluated at bedside. Patient reports possible history of atrial fibrillation stating that he was told by many nurses that he had atrial fibrillation but reports when evaluated by tubing mill setter he was told he did not. Patient has recently had cardiac workup with Cardiac catheterization completed 04/05/21 revealing predominantly mid CAD and a 50% mid LAD lesion, cardiology recommended aggressive risk factor modification and continued medical management of LAD lesion. Echocardiogram completed 04/25/21 revealed an EF of 45-50%.. Orthospine specialist reported plan is for patient to undergo surgical stabilization of L5 AO burst fracture with possible lytic foci of L5 Sunday08/23/21. Physical exam: Patient seen and fully evaluated at bedside this morning. Still complaining of significant lower back pain 10 out of 10. He denies any chest pain or shortness of breath. Vital signs reviewed and stable. General: Nontoxic, no distress and appears stated age. Obese male. Derm: Skin warm and dry, normal coloration for ethnicity. Patient with psoriasis rash to face Head: Atraumatic, normocephalic and symmetric. Eyes: EOMs intact, no lid lag, and anicteric sclera Mouth: no lip lesions, mucus membranes moist Cardiovascular: Irregularly irregular with normal S1S2, no murmur, positive posterior tibial pulses bilaterally, and cap refill < 2 seconds. Lungs: Respirations even, regular, and unlabored on room air. Lungs CTA bilaterally, no rhonchi, no rales, no wheezing, and no accessory muscle usage. Abdominal: soft, nontender to palpation, no guarding, no appreciable organomegaly Ext: ROM intact. No gross muscle atrophy, no edema, no contractures Neuro: Speech clear, face symmetrical and CN II-XII grossly intact. Patient with equal and moderate strength in bilateral upper and lower extremities. Patient reports decreased sensation to bilateral lower extremities Psych: Alert and oriented to person, place, time, and situation. Appropriate and pleasant affect. Assessment and Plan of Care: #L5 AO burst fracture with possible lytic foci of L5. -Status post 4-S1 stabilization with L5 biopsy and kyphosplasty and L5-S1 decompression August 23 -Pain control -PT/OT evaluation -The need for mcc home versus RPR Hypertension, uncontrolled -Patient receiving metoprolol 50 mg 3 times daily along with Norvasc. Norvasc increased to 10 mg daily at this time. -Continue to monitor vital signs closely. BPH -Continue Flomax GERD -Continue Protonix. Objective - Vital Signs Vital signs: Vital Signs Temp 98.1 F 08/24/21 12:05 Pulse 82 08/24/21 12:05 Resp 15 08/24/21 12:05 BP 108/63 08/24/21 12:05 Pulse Ox 91 L 08/24/21 12:05 FiO2 Intake & Output 08/23/21 08/24/21 08/24/21 18:59 06:59 18:59 Intake Total 4300 990 Output Total 1150 1000 500 Balance 3150 -10 -500 Weight 127.006 kg Intake: IV 3800 Intake, IV Titration 500 Amount Vancomycin 2,000 mg In 500 Sodium Chloride 0.9% 500 ml 500 ml @ 167 mls/hr IVPB Q12H [facility] Rx#: [id number] Oral 990 Output: Urine 1000 1000 500 Estimated Blood Loss 150 Other: Voiding Method Indwelling Catheter Indwelling Catheter - Labs CBC & Chem 7: 08/23/21 07:08 08/24/21 05:59
--- NOTE | 2021-08-24 15:21 | P.CONS ---
History of Present Illness - Chief Complaint Walking difficulty due to lumbar disc disease - History of Present Illness I had the opportunity to see patient for inpatient rehab consultation with regard to walking difficulty. [facility] with history of increasing back pain, lumbar compression with L5 burst fracture. Head CT done and demonstrates mild to moderate atrophy. Lumbar MRI with the significant DDD L1-5 in the L5 burst fracture. Seen by neurology, Dr. Kareem Goncalves for same. Seen by surgeon, Dr. Alvarado who did move up planned lumbar surgery to August 23. Patient is sent started therapy. PT reports moderate assistance for bed mobility and transfer and unable to take steps due to pain and dizziness. OT reports supervision for feeding and independent with grooming. Minimal assistance for upper dressing and maximal assistance for lower dressing and moderate assistance for bathing. Minimal assistance for toileting and 2 person minimal assistance for toilet transfer. Previous functional history as elicited patient: 71-year-old right-handed white male who is single lives in a first-floor apartment alone. Retired. Describes independent own simple cooking or microwaving and standing shower. Has helped every other week for laundry and he has to forensic independent for driving. He otherwise uses a roller walker for gait around the home. PCP Dr. Tiarra Rodriguez. Denies tobacco or alcohol. Review of Systems Review of systems: ENT: Denies sneezes or discharge. Eyes: Denies discharge or photophobia. Cardiac: Denies chest pain or palpitation. Pulmonary: Denies cough or shortness of breath. Gastrointestinal: Denies nausea, emesis, constipation, diarrhea. Genitourinary: Denies discharge or frequency. Musculoskeletal: Back pain radiating to both legs. Limitation right shoulder now with increased back pain over the last week or 2. Neurologic: Denies motor or sensory change. Endocrine: Denies shakes or sweats. Oncology: Denies cancers. Dermatologic: Denies rash, itching, pruritus. ALLERGY/immunology: Denies sneezes, rashes. Past Medical History Past Medical History: Atrial Fibrillation, Diabetes Mellitus, GERD/Reflux, Hyperlipidemia, Hypertension, Osteoarthritis (OA), Pneumonia, Prostate Disorder Additional Past Medical History / Comment(s): Pt recently admitted to [facility] on 06/[facility]/21 with fall/possible TIA. 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 MDRO Source:: Source unknown-MRSA Past Surgical History: Back Surgery, Breast Surgery, Orthopedic Surgery Additional Past Surgical History / Comment(s): Bilateral mastectomy with right sided lymp node removal, R knee cap removed d/t fracture, Back surgery for herniated disc, brain stem surgeries for decompression-for dizziness and a surgery for spinal fluid leakage, right ankle ORIF, bilateral wrist fractures SX Past Anesthesia/Blood Transfusion Reactions: No Reported Reaction Past Psychological History: No Psychological Hx Reported Smoking Status: Former smoker Past Alcohol Use History: None Reported Past Drug Use History: None Reported - Past Family History Father History Unknown: Yes Family Medical History: Congestive Heart Failure (CHF) Additional Family Medical History / Comment(s): at 68. Mother History Unknown: Yes Family Medical History: Hypertension Additional Family Medical History / Comment(s): Pulmonary hypertension. at 78. Medications and Allergies Home Medications Medication Instructions Recorded Confirmed Type Metoprolol Tartrate [Lopressor] 150 mg PO DAILY 11/06/19 08/18/21 History Atorvastatin [Lipitor] 40 mg PO HS 06/18/20 08/18/21 History Folic Acid 1 mg PO DAILY@1200 #30 tab 12/23/20 08/18/21 Rx Thiamine [Vitamin B-1] 100 mg PO DAILY@1200 #30 tab 12/23/20 08/18/21 Rx Multivitamins, Thera [Multivitamin 1 tab PO DAILY@1200 01/09/21 08/18/21 History (formulary)] Triamcinolone 0.1% Ointment 1 applic TOPICAL BID 01/09/21 08/18/21 History [Kenalog 0.1% Ointment] Pyridoxine [Vitamin B-6] 50 mg PO DAILY #30 tab 01/12/21 08/18/21 Rx Cyanocobalamin [Vitamin B-12] 1,000 mcg PO DAILY #30 tab 03/03/21 08/18/21 Rx amLODIPine [Norvasc] 5 mg PO DAILY #30 tab 04/08/21 08/18/21 Rx traMADol HCl [Ultram] 50 mg PO QID PRN 3 Days #12 tab 04/08/21 08/18/21 Rx Calcium Carbonate [Tums] 1,500 mg PO DAILY 04/21/21 08/18/21 History Clopidogrel [Plavix] 75 mg PO DAILY #30 tab 04/26/21 08/18/21 Rx lisinopriL [Zestril] 20 mg PO DAILY #30 tab 04/26/21 08/18/21 Rx Magnesium Oxide [Mag-Ox] 1,200 mg PO DAILY 05/05/21 08/18/21 History Pantoprazole Sodium [Protonix] 80 mg PO DAILY 05/05/21 08/18/21 History Sucralfate [Carafate] 3 gm PO DAILY 05/05/21 08/18/21 History Fludrocortisone [Florinef] 0.2 mg PO DAILY #30 tablet 05/11/21 08/18/21 Rx Tamsulosin [Flomax] 0.4 mg PO DAILY 30 Days #30 cap 05/11/21 08/18/21 Rx Aspirin EC [Ecotrin Low Dose] 81 mg PO DAILY 05/28/21 08/18/21 History Famotidine [Pepcid] 20 mg PO BID 30 Days #60 tab 06/06/21 08/18/21 Rx Diclofenac Sodium [Voltaren] 75 mg PO BID PRN #30 tab 08/12/21 08/18/21 Rx Baclofen [Lioresal] 20 mg PO BID PRN 08/18/21 08/18/21 History Butalb/Acetaminophen/Caffeine 1 cap PO TID PRN 08/18/21 08/18/21 History [Fioricet 50-300-40 mg Capsule] DULoxetine HCL [Cymbalta] 60 mg PO BID 08/18/21 08/18/21 History Gabapentin [Neurontin] 300 mg PO BID 08/18/21 08/18/21 History Lidocaine 5% Patch [Lidoderm 5% 1 patch TOPICAL DAILY PRN 08/18/21 08/18/21 History Patch] Meloxicam [Mobic] 7.5 mg PO BID PRN 08/18/21 08/18/21 History oxyCODONE-APAP 5-325MG [Percocet 1 tab PO Q6H PRN 08/18/21 08/18/21 History 5-325 mg] Allergies Allergy/AdvReac Type Severity Reaction Status Date / Time cephalexin monohydrate Allergy Anaphylaxis Verified 08/23/21 08:33 [From Keflex] Cephalosporins Allergy Anaphylaxis Verified 08/23/21 08:33 Penicillins Allergy Anaphylaxis Verified 08/23/21 08:33 Physical Exam Vitals: Vital Signs Temp Pulse Resp BP Pulse Ox 08/24/21 12:05 98.1 F 82 15 108/63 91 L 08/24/21 08:40 85 106/64 08/24/21 05:00 98.7 F 81 18 122/67 94 L 08/23/21 20:00 18 08/23/21 19:47 97.8 F 76 18 126/66 96 08/23/21 18:21 124/72 96 Intake and Output 08/24/21 08/24/21 08/24/21 06:59 14:59 22:59 Intake Total 400 Output Total 1000 500 Balance -600 -500 Intake: Oral 400 Output: Urine 1000 500 Other: Voiding Method Indwelling Catheter Skin: Atrophic, intact. General: Overweight build and comfortable appearance. Head: Normocephalic, atraumatic. Eyes: Symmetric. Pupils equal round. Ears: Symmetric. Hearing within normal limits. Mouth: Clear. Neck: Supple. Carotid without bruit. Cardiac: Regular rate and rhythm. Lungs: Clear anteriorly and posteriorly. Abdomen: Soft active nontender. Extremities: Normal tone. Limitation right shoulder. Neurological: Mental status: Alert, cooperative, pleasant. Cranial nerves: Symmetric facial tone and trapezius. Motor: Active movement all [address] weakness legs more than right shoulder. Sensation: Intact throughout. DTRs: Symmetric and equal throughout. Mobility: Requires physical assist for any bed mobility. Results CBC & Chem 7: 08/23/21 07:08 08/24/21 05:59 Assessment and Plan (1) Burst fracture of lumbar vertebra Current Visit: Yes Status: Acute Code(s): S32.001A - STABLE BURST FRACTURE OF UNSP LUMBAR VERTEBRA, INIT SNOMED Code(s): 423111649 Plan: Comments and plan: At this time PT and OT are ongoing. Safety concerns noted. Patient therapy benefit currently limited by pain issues. He reports previously being on [place] 10 4 times a day and we'll make sure he is on this at least currently. Have discussed possible inpatient rehab with patient and he seems agreeable and understands the.
[2021-08-24] MEDS: LACTATED RINGERS 1,000 ML IV SCH (15:34)
[2021-08-24] MEDS: BUTALB/APAP/CAFF 50-325-40MG TAB PO PRN (20:34)
[2021-08-24] MEDS: ATORVASTATIN 40 MG TAB PO SCH (20:34)
[2021-08-24] MEDS ORDERED: CYCLOBENZAPRINE 5 MG TAB PO SCH (22:00)
[2021-08-25] MEDS: oxyCODONE-APAP 5-325MG 1 EACH TAB PO PRN ×2 (00:15→04:14)
[2021-08-25] MEDS: HYDROmorphone 1 MG/ML 1 ML SYRINGE IVP PRN (05:52)
[2021-08-25] MEDS: VANCOMYCIN 2,000 MG in SODIUM CHLORIDE 0.9% 500 ML 500 ML IVPB SCH ×2 (05:53→17:38)
[2021-08-25 08:10] LABS: African American GFR (CKD) >90 (>60 ml/min/1.73 sqM); Anion Gap 8 mmol/L; Blood Urea Nitrogen 11 mg/dL (9-20); Calcium 8.6 mg/dL (8.4-10.2); Carbon Dioxide 31 mmol/L (22-30); Chloride 98 mmol/L (98-107); Glucose 142 mg/dL (74-99); Non-African American GFR(CKD) >90 (>60 ml/min/1.73 sqM); Potassium 3.5 mmol/L (3.5-5.1); Sodium 137 mmol/L (137-145)
[2021-08-25] MEDS: PANTOPRAZOLE 40 MG TABLET PO SCH (08:26)
[2021-08-25] MEDS: FOLIC ACID 1 MG TAB PO SCH (08:27)
[2021-08-25] MEDS: GABAPENTIN 300 MG CAP PO SCH ×3 (08:27→21:53)
[2021-08-25] MEDS: MAGNESIUM OXIDE 400 MG TAB PO SCH (08:27)
[2021-08-25] MEDS: METOPROLOL TARTRATE 50 MG TAB PO SCH (08:27)
[2021-08-25] MEDS: CYANOCOBALAMIN 500 MCG TAB PO SCH (08:27)
[2021-08-25] MEDS: PYRIDOXINE 50 MG TAB PO SCH (08:27)
[2021-08-25] MEDS: MULTIVITAMINS, THERA 1 EACH TAB PO SCH (08:27)
[2021-08-25] MEDS: FLUDROCORTISONE 0.1 MG TAB PO SCH (08:27)
[2021-08-25] MEDS: SUCRALFATE 1 GM TAB PO SCH (08:27)
[2021-08-25] MEDS: CALCIUM CARBONATE 500 MG CHEWABLE PO SCH (08:27)
[2021-08-25] MEDS: DULoxetine HCL 60 MG CAPSULE.DR PO SCH ×2 (08:27→20:12)
[2021-08-25] MEDS: TAMSULOSIN 0.4 MG CAP.ER.24H PO SCH (08:27)
--- NOTE | 2021-08-25 08:27 | P.PN ---
Subjective Progress Note Date: 08/25/21 Principal diagnosis: L5 a/c VCF fracture with burst component Back pain, Leg pain Patient seen and examined today. He is sitting upright in bed. Patient continues to have c/o pain. Patient denies any new numbness or tingling to bilateral lower extremities. Mr. Bui states he is unable to participate with physical therapy or any activities due to his pain level. Medications have been changed from PRN to scheduled to assist with pain management. Patient is able to move bilateral lower extremities off of bed, and wiggle his toes. Encouraged patient to work with physical therapy. Patient has been afebrile, denies nausea/vomiting, or chest pain. Objective - Vital Signs Vital signs: Vital Signs Temp 99.3 F 08/25/21 04:14 Pulse 80 08/25/21 04:14 Resp 18 08/25/21 04:14 BP 166/80 08/25/21 04:14 Pulse Ox 94 L 08/25/21 04:14 FiO2 Intake & Output 08/24/21 08/25/21 08/25/21 18:59 06:59 18:59 Intake Total 500 1090 Output Total 747 096 9334 Balance 0 270 -1450 Intake: Intake, IV Titration 500 500 Amount Vancomycin 2,000 mg In 500 500 Sodium Chloride 0.9% 500 ml 500 ml @ 167 mls/hr IVPB Q12H [facility] Rx#: [id number] Oral 590 Output: Urine 418 506 2186 Other: Voiding Method Indwelling Catheter Indwelling Catheter - Exam Physical Examination General: The patient is awake and alert, in no acute distress Skin: Skin is warm and dry with noted generalized psoriasis. Hairy patches absent, no dorsal skin dimples, no cafe au lait spots, Surgical incisions in lumbar region. Eye: Pupils are equal, round and reactive to light, extra-ocular movements are intact; there is normal conjunctiva bilaterally. Neck: The neck is supple, there is no tenderness and ROM intact. Cardiovascular: There is a regular rate and rhythm. No murmur, rub or gallop is appreciated. +2 edema to BLE. Respiratory: Lungs are clear to auscultation, respirations are non-labored, breath sounds are equal. Gastrointestinal: Soft, non-distended, non-tender abdomen . Back: There is no tenderness to palpation in the paralumbar region. There is no obvious deformity . Musculoskeletal: ROM limited to lumbar spine and right lower extremity; 3/5 in RLE. FROM in all other major muscle groups with 5/5 strength. Neurological: CN 2-12 intact. There are no obvious motor or sensory deficits. Movement and coordination equal and intact. Sensory exam to light touch intact C5-T1 and intact from L2-S1. Reflexes 2/4 in bilateral upper and lower extremities. Negative Hoffmans, babinski, and clonus signs. Psychiatric: Cooperative, appropriate mood & affect, normal judgment. - Labs CBC & Chem 7: 08/23/21 07:08 08/25/21 06:36 Labs: Abnormal Lab Results - Last 24 Hours (Table) 08/25/21 Range/Units 06:36 Carbon Dioxide 31 H (22-30) mmol/L Glucose 142 H (74-99) mg/dL Assessment and Plan Assessment: Post Op Day 2: L4-S1 stabilization with L5 biopsy and kyphosplasty and L5-S1 decompression -severe low back pain s/p ffs -L5 AO type A4 burst fracture -Possible lytic foci L5 -Multiple medical commodities Plan: Plan: -Appreciate practice consultant and team management. -Activity: Ambulate QID, OOB all meals, up and about, limit lifting bending twisting to less than 5 lbs. Use walker or cane if needed for stability. -Daily PT/OT, increase ambulation strength and balance. -Brace when up and about, not needed in bed or chair -Pain control: Adequate at this time -Meds: reviewed -GI ppx: senna, Miralax -DC gastelum when up and about, bedside commode if needed -DVT PPX: Heparin, SCDs, TEDS -Hygiene: Shower today. Maintain dressing clean and dry. Meticulous cleaning after BMs away from the incision site -Encourage IS 10x/hr -Dispo: Anticipate discharge to [facility] vs IP rehab within 24-48hrs. *I reviewed and discussed this case with my attending Dr. Anderson, whom has reviewed this chart and films and is in agreement with assessment and plan of care as outlined above. I have personally seen and examined the patient, performed the documentation and the assessment and plan as written. Number of minutes spent on the visit: 20m.
[2021-08-25] MEDS: THIAMINE 100 MG TAB PO SCH (08:28)
[2021-08-25] MEDS: amLODIPine 10 MG TAB PO SCH (08:28)
[2021-08-25] MEDS: CYCLOBENZAPRINE 10 MG TAB PO SCH ×3 (08:30→21:53)
[2021-08-25] MEDS: TRIAMCINOLONE ACET 0.1% OINTMENT 15 GM TUBE TOPICAL SCH ×2 (08:30→20:12)
[2021-08-25] MEDS: oxyCODONE-APAP 5-325MG 1 EACH TAB PO SCH ×4 (08:31→20:11)
[2021-08-25 10:43] LABS: Basophils # (A) 0.02 X 10*3/uL (0.00-0.10); Basophils % (A) 0.2 %; Eosinophils # (A) 0.23 X 10*3/uL (0.04-0.35); Eosinophils % (A) 2.2 %; HCT 34.6 % (39.6-50.0); Immature Grans, Automated 0.4 %; Lymphocytes # (A) 1.53 X 10*3/uL (0.90-5.00); Lymphocytes % (A) 14.4 %; MCH 28.6 pg (27.0-32.0); MCHC 31.8 g/dL (32.0-37.0); MCV 89.9 fL (80.0-97.0); Mean Platelet Volume 10.8 fL (9.5-12.2); Monocytes # (A) 1.32 X 10*3/uL (0.20-1.00); Monocytes % (A) 12.4 %; NRBC Per 100 WBC 0 /100 WBCS (0.0-0.0); Neutrophils # (A) 7.48 X 10*3/uL (1.80-7.70); Neutrophils % (A) 70.4 %; Platelet Count 176 X 10*3/uL (140-440); RBC 3.85 X 10*6/uL (4.40-5.60); RDW 13.8 % (11.5-14.5); WBC 10.62 X 10*3/uL (4.50-10.00)
--- NOTE | 2021-08-25 14:30 | P.PN ---
Subjective History of Presenting Illness: Patient is a very pleasant 71-year-old male with a past medical history of hypertension, hyperlipidemia, chronic systolic heart failure with EF of 45-50%, history of chronic benign positional vertigo with previous brainstem operation for decompression, GERD, BPH, and chronic back pain. Patient currently admitted under orthospine surgical team and scheduled to undergo surgical stabilization of L5 AO burst fracture with possible lytic foci of L5. We have been consulted for presurgical clearance as well as medical management throughout hospitalization. Patient seen and fully evaluated at bedside. Patient reports possible history of atrial fibrillation stating that he was told by many nurses that he had atrial fibrillation but reports when evaluated by radio frequency engineer he was told he did not. Patient has recently had cardiac workup with Cardiac catheterization completed 04/05/21 revealing predominantly mid CAD and a 50% mid LAD lesion, cardiology recommended aggressive risk factor modification and continued medical management of LAD lesion. Echocardiogram completed 04/25/21 revealed an EF of 45-50%.. Orthospine specialist reported plan is for patient to undergo surgical stabilization of L5 AO burst fracture with possible lytic foci of L5 Sunday08/23/21. Physical exam: Patient seen and fully evaluated at bedside this morning. Still complaining of significant lower back pain 10 out of 10. He denies any chest pain or shortness of breath. Vital signs reviewed and stable. General: Nontoxic, no distress and appears stated age. Obese male. Derm: Skin warm and dry, normal coloration for ethnicity. Patient with psoriasis rash to face Head: Atraumatic, normocephalic and symmetric. Eyes: EOMs intact, no lid lag, and anicteric sclera Mouth: no lip lesions, mucus membranes moist Cardiovascular: Irregularly irregular with normal S1S2, no murmur, positive posterior tibial pulses bilaterally, and cap refill < 2 seconds. Lungs: Respirations even, regular, and unlabored on room air. Lungs CTA bilaterally, no rhonchi, no rales, no wheezing, and no accessory muscle usage. Abdominal: soft, nontender to palpation, no guarding, no appreciable organomegaly Ext: ROM intact. No gross muscle atrophy, no edema, no contractures Neuro: Speech clear, face symmetrical and CN II-XII grossly intact. Patient wi th equal and moderate strength in bilateral upper and lower extremities. Patient reports decreased sensation to bilateral lower extremities Psych: Alert and oriented to person, place, time, and situation. Appropriate and pleasant affect. Assessment and Plan of Care: #L5 AO burst fracture with possible lytic foci of L5. -Status post 4-S1 stabilization with L5 biopsy and kyphosplasty and L5-S1 decompression August 23 -Pain control -PT/OT evaluation -The need for usp home versus RPR Hypertension -Resume Norvasc 10 mg daily -Toprol-XL 50 mg daily -Continue to monitor vital signs closely. BPH -Continue Flomax GERD -Continue Protonix. Objective - Vital Signs Vital signs: Vital Signs Temp 99 F 08/25/21 11:56 Pulse 88 08/25/21 11:56 Resp 15 08/25/21 11:56 BP 95/58 08/25/21 11:56 Pulse Ox 93 L 08/25/21 11:56 FiO2 Intake & Output 08/24/21 08/25/21 08/25/21 18:59 06:59 18:59 Intake Total 500 1090 Output Total 052 644 0706 Balance 0 270 -2550 Intake: Intake, IV Titration 500 500 Amount Vancomycin 2,000 mg In 500 500 Sodium Chloride 0.9% 500 ml 500 ml @ 167 mls/hr IVPB Q12H [facility] Rx#: [id number] Oral 590 Output: Urine 563 462 5471 Other: Voiding Method Indwelling Catheter Indwelling Catheter Indwelling Catheter - Labs CBC & Chem 7: 08/25/21 06:36 08/25/21 06:36 Labs: Abnormal Lab Results - Last 24 Hours (Table) 08/25/21 08/25/21 Range/Units 06:36 06:36 WBC 10.62 H (4.50-10.00) X 10*3/uL RBC 3.85 L (4.40-5.60) X 10*6/uL Hgb 11.0 L (13.0-17.0) g/dL Hct 34.6 L (39.6-50.0) % MCHC 31.8 L (32.0-37.0) g/dL Monocytes # 1.32 H (0.20-1.00) X 10*3/uL Carbon Dioxide 31 H (22-30) mmol/L Glucose 142 H (74-99) mg/dL
[2021-08-25] MEDS: LACTATED RINGERS 1,000 ML IV SCH (14:48)
[2021-08-25] MEDS ORDERED: VANCOMYCIN TROUGH DUE 1 EACH MISC MISCELLANE ONE (17:00)
[2021-08-25] MEDS ORDERED: carvediloL 12.5 MG TAB PO SCH (17:30)
[2021-08-25] MEDS: ATORVASTATIN 40 MG TAB PO SCH (20:12)
[2021-08-26] MEDS: oxyCODONE-APAP 5-325MG 1 EACH TAB PO SCH ×7 (00:04→23:36)
[2021-08-26] MEDS: HYDROmorphone 0.5 MG/0.5 ML SYRINGE IVP PRN (02:04)
[2021-08-26] MEDS: VANCOMYCIN 2,000 MG in SODIUM CHLORIDE 0.9% 500 ML 500 ML IVPB SCH ×2 (05:48→17:17)
[2021-08-26 07:54] LABS: African American GFR (CKD) >90 (>60 ml/min/1.73 sqM); Anion Gap 6 mmol/L; Blood Urea Nitrogen 11 mg/dL (9-20); Calcium 8.3 mg/dL (8.4-10.2); Carbon Dioxide 32 mmol/L (22-30); Chloride 100 mmol/L (98-107); Glucose 169 mg/dL (74-99); Non-African American GFR(CKD) >90 (>60 ml/min/1.73 sqM); Potassium 3.2 mmol/L (3.5-5.1); Sodium 138 mmol/L (137-145)
[2021-08-26] MEDS: CALCIUM CARBONATE 500 MG CHEWABLE PO SCH (08:21)
[2021-08-26] MEDS: PYRIDOXINE 50 MG TAB PO SCH (08:21)
[2021-08-26] MEDS: THIAMINE 100 MG TAB PO SCH (08:22)
[2021-08-26] MEDS: GABAPENTIN 300 MG CAP PO SCH ×3 (08:22→20:12)
[2021-08-26] MEDS: FLUDROCORTISONE 0.1 MG TAB PO SCH (08:22)
[2021-08-26] MEDS: DULoxetine HCL 60 MG CAPSULE.DR PO SCH ×2 (08:22→20:12)
[2021-08-26] MEDS: MULTIVITAMINS, THERA 1 EACH TAB PO SCH (08:22)
[2021-08-26] MEDS: MAGNESIUM OXIDE 400 MG TAB PO SCH (08:22)
[2021-08-26] MEDS: FOLIC ACID 1 MG TAB PO SCH (08:22)
[2021-08-26] MEDS: CYANOCOBALAMIN 500 MCG TAB PO SCH (08:22)
[2021-08-26] MEDS: PANTOPRAZOLE 40 MG TABLET PO SCH (08:22)
[2021-08-26] MEDS: SUCRALFATE 1 GM TAB PO SCH (08:22)
[2021-08-26] MEDS: TAMSULOSIN 0.4 MG CAP.ER.24H PO SCH (08:22)
[2021-08-26] MEDS: amLODIPine 10 MG TAB PO SCH (08:23)
[2021-08-26] MEDS: TRIAMCINOLONE ACET 0.1% OINTMENT 15 GM TUBE TOPICAL SCH ×2 (08:23→20:12)
[2021-08-26] MEDS: CYCLOBENZAPRINE 10 MG TAB PO SCH ×3 (08:23→20:12)
--- NOTE | 2021-08-26 08:29 | P.PN ---
Subjective Progress Note Date: 08/26/21 Principal diagnosis: L5 a/c VCF fracture with burst component Back pain, Leg pain Patient seen and examined today. He is laying in bed this morning drinking his coffee. Patient continues to have c/o pain. Encouraged patient to get up with all meals as he tolerates. Spoke with RN taking care of patient, she states that patient has been getting up independently from chair and moving to bed, sitting at bedside, and able to pull himself up in bed. Encouraged patient to work with physical therapy. He may be discharged today pending authorization from inpatient rehab. Prescription for LSO brace has been left in chart. Patient has been afebrile, denies nausea/vomiting, or chest pain. Objective - Vital Signs Vital signs: Vital Signs Temp 98.3 F 08/26/21 05:00 Pulse 100 08/26/21 05:00 Resp 16 08/26/21 05:00 BP 167/82 08/26/21 05:00 Pulse Ox 95 08/26/21 05:00 FiO2 Intake & Output 08/25/21 08/26/21 08/26/21 18:59 06:59 18:59 Intake Total 600 590 Output Total 2550 350 Balance -1950 590 -350 Intake: Oral 600 590 Output: Urine 2550 350 Other: Voiding Method Indwelling Catheter Urinal # Voids 1 - Exam Physical Examination General: The patient is awake and alert, in no acute distress Skin: Skin is warm and dry with noted generalized psoriasis. Hairy patches absent, no dorsal skin dimples, no cafe au lait spots, Surgical incisions in l umbar region. Eye: Pupils are equal, round and reactive to light, extra-ocular movements are intact; there is normal conjunctiva bilaterally. Neck: The neck is supple, there is no tenderness and ROM intact. Cardiovascular: There is a regular rate and rhythm. No murmur, rub or gallop is appreciated. +2 edema to BLE. Respiratory: Lungs are clear to auscultation, respirations are non-labored, breath sounds are equal. Gastrointestinal: Soft, non-distended, non-tender abdomen . Back: There is no tenderness to palpation in the paralumbar region. There is no obvious deformity . Musculoskeletal: ROM limited to lumbar spine and right lower extremity; 4/5 in BLE. FROM in all other major muscle groups with 5/5 strength. Neurological: CN 2-12 intact. There are no obvious motor or sensory deficits. Movement and coordination equal and intact. Sensory exam to light touch intact C5-T1 and intact from L2-S1. Reflexes 2/4 in bilateral upper and lower extremities. Negative Hoffmans, babinski, and clonus signs. Psychiatric: Cooperative, appropriate mood & affect, normal judgment. - Labs CBC & Chem 7: 08/25/21 06:36 08/26/21 06:50 Labs: Abnormal Lab Results - Last 24 Hours (Table) 08/25/21 08/26/21 Range/Units 06:36 06:50 WBC 10.62 H (4.50-10.00) X 10*3/uL RBC 3.85 L (4.40-5.60) X 10*6/uL Hgb 11.0 L (13.0-17.0) g/dL Hct 34.6 L (39.6-50.0) % MCHC 31.8 L (32.0-37.0) g/dL Monocytes # 1.32 H (0.20-1.00) X 10*3/uL Potassium 3.2 L (3.5-5.1) mmol/L Carbon Dioxide 32 H (22-30) mmol/L Glucose 169 H (74-99) mg/dL Calcium 8.3 L (8.4-10.2) mg/dL Assessment and Plan Assessment: Post Op Day 3: L4-S1 stabilization with L5 biopsy and kyphosplasty and L5-S1 decompression -severe low back pain s/p ffs -L5 AO type A4 burst fracture -Possible lytic foci L5 -Multiple medical commodities Plan: Plan: -Appreciate wedding consultant and team management. -Activity: Ambulate QID, OOB all meals, up and about, limit lifting bending twisting to less than 5 lbs. Use walker or cane if needed for stability. -Daily PT/OT, increase ambulation strength and balance. -Brace when up and about, not needed in bed or chair -Pain control: Adequate at this time -Meds: reviewed -GI ppx: senna, Miralax -DVT PPX: Heparin, SCDs, TEDS -Hygiene: Shower today. Maintain dressing clean and dry. Meticulous cleaning after BMs away from the incision site -Encourage IS 10x/hr -Dispo: Anticipate discharge to [facility] vs IP rehab within 24-48hrs. *I reviewed and discussed this case with my attending Dr. Anderson, whom has reviewed this chart and films and is in agreement with assessment and plan of care as outlined above. I have personally seen and examined the patient, performed the documentation and the assessment and plan as written. Number of minutes spent on the visit: 20m.
[2021-08-26] MEDS ORDERED: METOPROLOL SUCCINATE (ER) 50 MG TAB.ER.24H PO SCH (09:00)
[2021-08-26 11:37] LABS: Basophils # (A) 0.04 X 10*3/uL (0.00-0.10); Basophils % (A) 0.4 %; Eosinophils # (A) 0.33 X 10*3/uL (0.04-0.35); Eosinophils % (A) 3.6 %; HCT 35.5 % (39.6-50.0); HGB 11.4 g/dL (13.0-17.0); Immature Grans, Automated 0.3 %; Lymphocytes # (A) 1.65 X 10*3/uL (0.90-5.00); MCH 28.9 pg (27.0-32.0); MCHC 32.1 g/dL (32.0-37.0); MCV 89.9 fL (80.0-97.0); Mean Platelet Volume 10.5 fL (9.5-12.2); Monocytes # (A) 1.03 X 10*3/uL (0.20-1.00); Monocytes % (A) 11.2 %; NRBC Per 100 WBC 0 /100 WBCS (0.0-0.0); Neutrophils # (A) 6.09 X 10*3/uL (1.80-7.70); Neutrophils % (A) 66.5 %; Platelet Count 187 X 10*3/uL (140-440); RBC 3.95 X 10*6/uL (4.40-5.60); RDW 13.6 % (11.5-14.5); WBC 9.17 X 10*3/uL (4.50-10.00)
[2021-08-26] MEDS ORDERED: METOPROLOL SUCCINATE (ER) 50 MG TAB.ER.24H PO STA (12:30)
[2021-08-26] MEDS ORDERED: POTASSIUM CHLORIDE ER 20 MEQ TAB.ER PO STA (12:31)
--- NOTE | 2021-08-26 12:34 | P.PN ---
Subjective History of Presenting Illness: Patient is a very pleasant 71-year-old male with a past medical history of hypertension, hyperlipidemia, chronic systolic heart failure with EF of 45-50%, history of chronic benign positional vertigo with previous brainstem operation for decompression, GERD, BPH, and chronic back pain. Patient currently admitted under orthospine surgical team and scheduled to undergo surgical stabilization of L5 AO burst fracture with possible lytic foci of L5. We have been consulted for presurgical clearance as well as medical management throughout hospitalization. Patient seen and fully evaluated at bedside. Patient reports possible history of atrial fibrillation stating that he was told by many nurses that he had atrial fibrillation but reports when evaluated by top ironer he was told he did not. Patient has recently had cardiac workup with Cardiac catheterization completed 04/05/21 revealing predominantly mid CAD and a 50% mid LAD lesion, cardiology recommended aggressive risk factor modification and continued medical management of LAD lesion. Echocardiogram completed 04/25/21 revealed an EF of 45-50%.. Orthospine specialist reported plan is for patient to undergo surgical stabilization of L5 AO burst fracture with possible lytic foci of L5 Sunday08/23/21. Physical exam: Patient seen and fully evaluated at bedside this morning. Still complaining of significant lower back pain.. He denies any chest pain or shortness of breath. Vital signs reviewed and stable. General: Nontoxic, no distress and appears stated age. Obese male. Derm: Skin warm and dry, normal coloration for ethnicity. Patient with psoria sis rash to face Head: Atraumatic, normocephalic and symmetric. Eyes: EOMs intact, no lid lag, and anicteric sclera Mouth: no lip lesions, mucus membranes moist Cardiovascular: Irregularly irregular with normal S1S2, no murmur, positive posterior tibial pulses bilaterally, and cap refill < 2 seconds. Lungs: Respirations even, regular, and unlabored on room air. Lungs CTA bilaterally, no rhonchi, no rales, no wheezing, and no accessory muscle usage. Abdominal: soft, nontender to palpation, no guarding, no appreciable organomegaly Ext: ROM intact. No gross muscle atrophy, no edema, no contractures Neuro: Speech clear, face symmetrical and CN II-XII grossly intact. Patient with equal and moderate strength in bilateral upper and lower extremities. Patient reports decreased sensation to bilateral lower extremities Psych: Alert and oriented to person, place, time, and situation. Appropriate and pleasant affect. Assessment and Plan of Care: #L5 AO burst fracture with possible lytic foci of L5. -Status post 4-S1 stabilization with L5 biopsy and kyphosplasty and L5-S1 decompression August 23 -Pain control -PT/OT evaluation -The need for intermediate home versus RPR Hypertension -Resume Norvasc 10 mg daily -Increase Toprol-XL to 100 mg daily -Continue to monitor vital signs closely. #Hypokalemia - replaced BPH -Continue Flomax GERD -Continue Protonix. Objective - Vital Signs Vital signs: Vital Signs Temp 98.3 F 08/26/21 05:00 Pulse 94 08/26/21 08:20 Resp 16 08/26/21 05:00 BP 179/86 08/26/21 08:20 Pulse Ox 95 08/26/21 05:00 FiO2 Intake & Output 08/25/21 08/26/21 08/26/21 18:59 06:59 18:59 Intake Total 600 590 Output Total 2550 350 Balance -1950 590 -350 Intake: Oral 600 590 Output: Urine 2550 350 Other: Voiding Method Indwelling Catheter Urinal Urinal # Voids 1 - Labs CBC & Chem 7: 08/26/21 06:50 08/26/21 06:50 Labs: Abnormal Lab Results - Last 24 Hours (Table) 08/26/21 08/26/21 Range/Units 06:50 06:50 RBC 3.95 L (4.40-5.60) X 10*6/uL Hgb 11.4 L (13.0-17.0) g/dL Hct 35.5 L (39.6-50.0) % Monocytes # 1.03 H (0.20-1.00) X 10*3/uL Potassium 3.2 L (3.5-5.1) mmol/L Carbon Dioxide 32 H (22-30) mmol/L Glucose 169 H (74-99) mg/dL Calcium 8.3 L (8.4-10.2) mg/dL
[2021-08-26] MEDS: LACTATED RINGERS 1,000 ML IV SCH (15:30)
[2021-08-26] MEDS: ATORVASTATIN 40 MG TAB PO SCH (20:12)
[2021-08-26] MEDS: BUTALB/APAP/CAFF 50-325-40MG TAB PO PRN (23:38)
[2021-08-27] MEDS: oxyCODONE-APAP 5-325MG 1 EACH TAB PO SCH ×5 (03:08→20:28)
[2021-08-27] MEDS: VANCOMYCIN 2,000 MG in SODIUM CHLORIDE 0.9% 500 ML 500 ML IVPB SCH ×2 (05:28→18:15)
[2021-08-27 07:48] LABS: African American GFR (CKD) >90 (>60 ml/min/1.73 sqM); Anion Gap 8 mmol/L; Blood Urea Nitrogen 10 mg/dL (9-20); Calcium 8.8 mg/dL (8.4-10.2); Carbon Dioxide 28 mmol/L (22-30); Chloride 100 mmol/L (98-107); Glucose 140 mg/dL (74-99); Non-African American GFR(CKD) >90 (>60 ml/min/1.73 sqM); Sodium 136 mmol/L (137-145)
[2021-08-27] MEDS: PANTOPRAZOLE 40 MG TABLET PO SCH (08:01)
[2021-08-27] MEDS: TAMSULOSIN 0.4 MG CAP.ER.24H PO SCH (08:02)
[2021-08-27] MEDS: CYANOCOBALAMIN 500 MCG TAB PO SCH (08:02)
[2021-08-27] MEDS: GABAPENTIN 300 MG CAP PO SCH ×3 (08:02→22:11)
[2021-08-27] MEDS: DULoxetine HCL 60 MG CAPSULE.DR PO SCH ×2 (08:02→20:28)
[2021-08-27] MEDS: SUCRALFATE 1 GM TAB PO SCH (08:02)
[2021-08-27] MEDS: FOLIC ACID 1 MG TAB PO SCH (08:03)
[2021-08-27] MEDS: amLODIPine 10 MG TAB PO SCH (08:03)
[2021-08-27] MEDS: CYCLOBENZAPRINE 10 MG TAB PO SCH ×3 (08:03→22:11)
[2021-08-27] MEDS: CALCIUM CARBONATE 500 MG CHEWABLE PO SCH (08:03)
[2021-08-27] MEDS: MAGNESIUM OXIDE 400 MG TAB PO SCH (08:24)
[2021-08-27] MEDS: FLUDROCORTISONE 0.1 MG TAB PO SCH (08:25)
[2021-08-27] MEDS: PYRIDOXINE 50 MG TAB PO SCH (08:25)
[2021-08-27] MEDS: METOPROLOL SUCCINATE (ER) 100 MG TAB.ER.24H PO SCH (08:25)
[2021-08-27] MEDS: TRIAMCINOLONE ACET 0.1% OINTMENT 15 GM TUBE TOPICAL SCH ×2 (08:26→20:28)
--- NOTE | 2021-08-27 09:04 | P.PN ---
Subjective Progress Note Date: 08/27/21 Principal diagnosis: L5 AO type A4 burst fracture -Possible lytic foci L5 -Multiple medical commodities Patient was seen at bedside this morning resting comfortably lying in se mirecumbent position. Patient says he was up with therapy yesterday walking around the room with his walker. Patient says he also has been up this morning. Patient says his back and legs are in moderate amount of pain at this time. Patient feels that the pain medication does help, but it is not strong enough. Patient denies chest pain, fever, shortness of breath, nausea, vomiting, change in vision, loss of bowel/bladder control. Objective - Vital Signs Vital signs: Vital Signs Temp 98.3 F 08/27/21 05:00 Pulse 88 08/27/21 05:00 Resp 16 08/27/21 05:00 BP 171/93 08/27/21 05:00 Pulse Ox 94 L 08/27/21 05:00 FiO2 Intake & Output 08/26/21 08/27/21 08/27/21 18:59 06:59 18:59 Intake Total 1700 Output Total 950 1700 Balance -950 0 Intake: Intake, IV Titration 500 Amount Vancomycin 2,000 mg In 500 Sodium Chloride 0.9% 500 ml 500 ml @ 167 mls/hr IVPB Q12H [facility] Rx#: [id number] Oral 1200 Output: Urine 950 1700 Other: Voiding Method Urinal Urinal # Voids 3 5 1 - Exam Negative for any open fractures, significant nodules, ecchymosis. Positive for incisions along the paraspinal region the lumbar spine. [place] present well aligned at this time. Incisions appear to be healing well at this time. Dressings were changed. New opti-foam dressing were placed over incisions. Patient does have some decrease in sensation along the bilateral lower extremities just distal to the knee all the way of the ankle. Patient sensation is intact throughout the upper extremities bilaterally. Patient does have moderate tenderness to patient over the incision in the lumbar spine. Patient is nontender to palpation throughout rest of exam. Patient does have full range of motion bilateral upper extremities. Patient does have decreased range of motion in bilateral lower extremities and hip flexion due to pain. Patient does have full range of motion and bilateral ankle plantar/dorsiflexion as well as knee flexion/extension. Patient does have decreased strength 3+/5 on the right lower extremity and hip flexion/extension, knee flexion/extension, plantar flexion/dorsiflexion. Neurovascular status is intact. Patient has good strength in bilateral upper extremities. Radial pulses intact, 2+ bilaterally. Cap refill under 3 seconds in digits of upper extremities. Negative Homans bilaterally - Labs CBC & Chem 7: 08/26/21 06:50 08/27/21 07:19 Labs: Abnormal Lab Results - Last 24 Hours (Table) 08/26/21 08/27/21 Range/Units 06:50 07:19 RBC 3.95 L (4.40-5.60) X 10*6/uL Hgb 11.4 L (13.0-17.0) g/dL Hct 35.5 L (39.6-50.0) % Monocytes # 1.03 H (0.20-1.00) X 10*3/uL Sodium 136 L (137-145) mmol/L Potassium 3.0 L (3.5-5.1) mmol/L Glucose 140 H (74-99) mg/dL Assessment and Plan Assessment: 1. L5 AO type A4 burst fracture; Possible lytic foci L5 - Post op day #4 s/p posterior MIS approach lumbar spine; kyphoplasty and biopsy of L5; L4 to S1 stabilization; L5 open reduction internal fixation; L5-S1 laminoforaminotomy Plan: 1. L5 AO type A4 burst fracture; Possible lytic foci L5 - surgery performed, Sunday, 2posterior MIS approach lumbar spine; kyphoplasty with biopsy of L5; L4-S1 stabilization; L5 ORIF; L5-S1 laminoforaminotomy. Patient stable at bedside this morning. Surgical dressings were changed at bedside. Patient has been accepted at [facility] for inpatient rehab. [facility] [id number] review performed before discharge to IR. Plan for discharge to inpatient rehab by Sunday. 2. Appreciate medical management 3. Pain management - oxycodone 5mg/325 mg; Flexeril; gabapentin; Dilaudid only if necessary 4. GI prophylaxis - tums; Protonix; senna 5. DVT prophylaxis - mechanical 6. PT/OT - weightbearing as tolerated with walker 7. Encourage incentive spirometer use 8. Discharge planning - plan for discharge to [facility] for inpatient rehab Time with Patient: Less than 30
[2021-08-27 11:26] LABS: Basophils # (A) 0.03 X 10*3/uL (0.00-0.10); Basophils % (A) 0.3 %; Eosinophils # (A) 0.38 X 10*3/uL (0.04-0.35); Eosinophils % (A) 3.9 %; HCT 36.3 % (39.6-50.0); HGB 11.6 g/dL (13.0-17.0); Immature Grans, Automated 0.4 %; Lymphocytes % (A) 16.5 %; MCH 28.4 pg (27.0-32.0); MCV 88.8 fL (80.0-97.0); Mean Platelet Volume 10.6 fL (9.5-12.2); Monocytes # (A) 0.95 X 10*3/uL (0.20-1.00); Monocytes % (A) 9.8 %; NRBC Per 100 WBC 0 /100 WBCS (0.0-0.0); Neutrophils # (A) 6.68 X 10*3/uL (1.80-7.70); Neutrophils % (A) 69.1 %; Platelet Count 210 X 10*3/uL (140-440); RBC 4.09 X 10*6/uL (4.40-5.60); RDW 13.2 % (11.5-14.5); WBC 9.68 X 10*3/uL (4.50-10.00)
[2021-08-27] MEDS: THIAMINE 100 MG TAB PO SCH (13:32)
[2021-08-27] MEDS: MULTIVITAMINS, THERA 1 EACH TAB PO SCH (13:33)
--- NOTE | 2021-08-27 16:20 | P.PN ---
Subjective History of Presenting Illness: Patient is a very pleasant 71-year-old male with a past medical history of hypertension, hyperlipidemia, chronic systolic heart failure with EF of 45-50%, history of chronic benign positional vertigo with previous brainstem operation for decompression, GERD, BPH, and chronic back pain. Patient currently admitted under orthospine surgical team and scheduled to undergo surgical stabilization of L5 AO burst fracture with possible lytic foci of L5. We have been consulted for presurgical clearance as well as medical management throughout hospitalization. Patient seen and fully evaluated at bedside. Patient reports possible history of atrial fibrillation stating that he was told by many nurses that he had atrial fibrillation but reports when evaluated by population geneticist he was told he did not. Patient has recently had cardiac workup with Cardiac catheterization completed 04/05/21 revealing predominantly mid CAD and a 50% mid LAD lesion, cardiology recommended aggressive risk factor modification and continued medical management of LAD lesion. Echocardiogram completed 04/25/21 revealed an EF of 45-50%.. Orthospine specialist reported plan is for patient to undergo surgical stabilization of L5 AO burst fracture with possible lytic foci of L5 Sunday08/23/21. Physical exam: Patient seen and fully evaluated at bedside this morning. Still complaining of significant lower back pain.. He denies any chest pain or shortness of breath. Vital signs reviewed and stable. General: Nontoxic, no distress and appears stated age. Obese male. Derm: Skin warm and dry, normal coloration for ethnicity. Patient with psoria sis rash to face Head: Atraumatic, normocephalic and symmetric. Eyes: EOMs intact, no lid lag, and anicteric sclera Mouth: no lip lesions, mucus membranes moist Cardiovascular: Irregularly irregular with normal S1S2, no murmur, positive posterior tibial pulses bilaterally, and cap refill < 2 seconds. Lungs: Respirations even, regular, and unlabored on room air. Lungs CTA bilaterally, no rhonchi, no rales, no wheezing, and no accessory muscle usage. Abdominal: soft, nontender to palpation, no guarding, no appreciable organomegaly Ext: ROM intact. No gross muscle atrophy, no edema, no contractures Neuro: Speech clear, face symmetrical and CN II-XII grossly intact. Patient with equal and moderate strength in bilateral upper and lower extremities. Patient reports decreased sensation to bilateral lower extremities Psych: Alert and oriented to person, place, time, and situation. Appropriate and pleasant affect. Assessment and Plan of Care: #L5 AO burst fracture with possible lytic foci of L5. -Status post 4-S1 stabilization with L5 biopsy and kyphosplasty and L5-S1 decompression August 23 -Pain control -PT/OT evaluation -The need for correction home versus RPR Hypertension -Resume Norvasc 10 mg daily -Increase Toprol-XL to 100 mg daily -Continue to monitor vital signs closely. #Hypokalemia - replaced BPH -Continue Flomax GERD -Continue Protonix. Objective - Vital Signs Vital signs: Vital Signs Temp 98.3 F 08/27/21 11:46 Pulse 83 08/27/21 11:46 Resp 19 08/27/21 11:46 BP 146/84 08/27/21 11:46 Pulse Ox 95 08/27/21 11:46 FiO2 Intake & Output 08/26/21 08/27/21 08/27/21 18:59 06:59 18:59 Intake Total 1700 Output Total 950 1700 Balance -950 0 Intake: Intake, IV Titration 500 Amount Vancomycin 2,000 mg In 500 Sodium Chloride 0.9% 500 ml 500 ml @ 167 mls/hr IVPB Q12H [facility] Rx#: [id number] Oral 1200 Output: Urine 950 1700 Other: Voiding Method Urinal Urinal # Voids 3 5 1 - Labs CBC & Chem 7: 08/27/21 07:19 08/27/21 07:19 Labs: Abnormal Lab Results - Last 24 Hours (Table) 08/27/21 08/27/21 Range/Units 07:19 07:19 RBC 4.09 L (4.40-5.60) X 10*6/uL Hgb 11.6 L (13.0-17.0) g/dL Hct 36.3 L (39.6-50.0) % Eosinophils # 0.38 H (0.04-0.35) X 10*3/uL Sodium 136 L (137-145) mmol/L Potassium 3.0 L (3.5-5.1) mmol/L Glucose 140 H (74-99) mg/dL
[2021-08-27] MEDS ORDERED: Potassium Replacement Protocol 1 EACH MISC MISCELLANE PRN (16:47)
[2021-08-27] MEDS: LACTATED RINGERS 1,000 ML IV SCH (17:43)
[2021-08-27] MEDS: ACETAMINOPHEN TAB 325 MG TAB PO PRN (18:14)
[2021-08-27] MEDS: POTASSIUM CHLORIDE ER 20 MEQ TAB.ER PO SCH (18:15)
[2021-08-27] MEDS: ATORVASTATIN 40 MG TAB PO SCH (20:28)
[2021-08-28] MEDS: oxyCODONE-APAP 5-325MG 1 EACH TAB PO SCH ×5 (00:15→15:25)
[2021-08-28] MEDS: VANCOMYCIN 2,000 MG in SODIUM CHLORIDE 0.9% 500 ML 500 ML IVPB SCH ×2 (05:51→17:34)
[2021-08-28] MEDS: MAGNESIUM OXIDE 400 MG TAB PO SCH (07:58)
[2021-08-28] MEDS: CALCIUM CARBONATE 500 MG CHEWABLE PO SCH (07:58)
[2021-08-28] MEDS: PANTOPRAZOLE 40 MG TABLET PO SCH (07:59)
[2021-08-28] MEDS: CYANOCOBALAMIN 500 MCG TAB PO SCH (07:59)
[2021-08-28] MEDS: ACETAMINOPHEN TAB 325 MG TAB PO PRN ×2 (07:59→15:27)
[2021-08-28] MEDS: CYCLOBENZAPRINE 10 MG TAB PO SCH ×3 (07:59→22:02)
[2021-08-28] MEDS: SUCRALFATE 1 GM TAB PO SCH (07:59)
[2021-08-28] MEDS: PYRIDOXINE 50 MG TAB PO SCH (08:00)
[2021-08-28] MEDS: DULoxetine HCL 60 MG CAPSULE.DR PO SCH ×2 (08:00→22:01)
[2021-08-28] MEDS: FLUDROCORTISONE 0.1 MG TAB PO SCH (08:00)
[2021-08-28] MEDS: amLODIPine 10 MG TAB PO SCH (08:00)
[2021-08-28] MEDS: METOPROLOL SUCCINATE (ER) 100 MG TAB.ER.24H PO SCH (08:00)
[2021-08-28] MEDS: GABAPENTIN 300 MG CAP PO SCH ×3 (08:00→22:02)
[2021-08-28] MEDS: TRIAMCINOLONE ACET 0.1% OINTMENT 15 GM TUBE TOPICAL SCH ×2 (08:01→22:03)
[2021-08-28] MEDS: TAMSULOSIN 0.4 MG CAP.ER.24H PO SCH (08:03)
--- NOTE | 2021-08-28 10:25 | P.PN ---
Subjective History of Presenting Illness: Patient is a very pleasant 71-year-old male with a past medical history of hypertension, hyperlipidemia, chronic systolic heart failure with EF of 45-50%, history of chronic benign positional vertigo with previous brainstem operation for decompression, GERD, BPH, and chronic back pain. Patient currently admitted under orthospine surgical team and scheduled to undergo surgical stabilization of L5 AO burst fracture with possible lytic foci of L5. We have been consulted for presurgical clearance as well as medical management throughout hospitalization. Patient seen and fully evaluated at bedside. Patient reports possible history of atrial fibrillation stating that he was told by many nurses that he had atrial fibrillation but reports when evaluated by pump rebuilder he was told he did not. Patient has recently had cardiac workup with Cardiac catheterization completed 04/05/21 revealing predominantly mid CAD and a 50% mid LAD lesion, cardiology recommended aggressive risk factor modification and continued medical management of LAD lesion. Echocardiogram completed 04/25/21 revealed an EF of 45-50%.. Orthospine specialist reported plan is for patient to undergo surgical stabilization of L5 AO burst fracture with possible lytic foci of L5 Sunday08/23/21. Physical exam: Patient seen and fully evaluated at bedside this morning. He denies any chest pain or shortness of breath.. Vital signs reviewed and stable. General: Nontoxic, no distress and appears stated age. Obese male. Derm: Skin warm and dry, normal coloration for ethnicity. Patient with psoriasis rash to face Head: Atraumatic, normocephalic and symmetric. Eyes: EOMs intact, no lid lag, and anicteric sclera Mouth: no lip lesions, mucus membranes moist Cardiovascular: Irregularly irregular with normal S1S2, no murmur, positive posterior tibial pulses bilaterally, and cap refill < 2 seconds. Lungs: Respirations even, regular, and unlabored on room air. Lungs CTA bilaterally, no rhonchi, no rales, no wheezing, and no accessory muscle usage. Abdominal: soft, nontender to palpation, no guarding, no appreciable organomegaly Ext: ROM intact. No gross muscle atrophy, no edema, no contractures Neuro: Speech clear, face symmetrical and CN II-XII grossly intact. Patient with equal and moderate strength in bilateral upper and lower extremities. Patient reports decreased sensation to bilateral lower extremities Psych: Alert and oriented to person, place, time, and situation. Appropriate and pleasant affect. Assessment and Plan of Care: # L5 AO burst fracture with possible lytic foci of L5. -Status post 4-S1 stabilization with L5 biopsy and kyphosplasty and L5-S1 decompression August 23. -Pain control -PT/OT evaluation -The need for retirement home versus RPR # Hypertension -Resume Norvasc 10 mg daily -Increase Toprol-XL to 100 mg daily -Continue to monitor vital signs closely. # Hypokalemia - replaced # BPH -Continue Flomax. # GERD -Continue Protonix. Objective - Vital Signs Vital signs: Vital Signs Temp 98.7 F 08/28/21 05:00 Pulse 78 08/28/21 05:00 Resp 16 08/28/21 05:00 BP 152/78 08/28/21 05:00 Pulse Ox 92 L 08/28/21 05:00 FiO2 Intake & Output 08/27/21 08/28/21 08/28/21 18:59 06:59 18:59 Intake Total 1450 Output Total 300 Balance 1150 Intake: Intake, IV Titration 500 Amount Vancomycin 2,000 mg In 500 Sodium Chloride 0.9% 500 ml 500 ml @ 167 mls/hr IVPB Q12H [facility] Rx#: [id number] Oral 950 Output: Urine 300 Other: Voiding Method Urinal # Voids 3 3 - Labs CBC & Chem 7: 08/27/21 07:19 08/27/21 07:19 Labs: Abnormal Lab Results - Last 24 Hours (Table) 08/27/21 Range/Units 07:19 RBC 4.09 L (4.40-5.60) X 10*6/uL Hgb 11.6 L (13.0-17.0) g/dL Hct 36.3 L (39.6-50.0) % Eosinophils # 0.38 H (0.04-0.35) X 10*3/uL
--- NOTE | 2021-08-28 11:50 | P.PN ---
Subjective Progress Note Date: 08/28/21 Principal diagnosis: Status post MIS L4-S1 posterior stabilization, L5 biopsy with kyphoplasty Patient was examined today at bedside, he is sleeping upon entrance to the room, he is easily awoken. He says resting. He still has some back pain with movement. He feels that the legs are getting stronger daily. Patient has been accepted to inpatient [facility], plan is for discharge on 08/29/2021. Patient has no other orthopedic complaints at this time. Objective - Vital Signs Vital signs: Vital Signs Temp 98.7 F 08/28/21 05:00 Pulse 78 08/28/21 05:00 Resp 16 08/28/21 05:00 BP 152/78 08/28/21 05:00 Pulse Ox 92 L 08/28/21 05:00 FiO2 Intake & Output 08/27/21 08/28/21 08/28/21 18:59 06:59 18:59 Intake Total 1450 Output Total 300 Balance 1150 Intake: Intake, IV Titration 500 Amount Vancomycin 2,000 mg In 500 Sodium Chloride 0.9% 500 ml 500 ml @ 167 mls/hr IVPB Q12H [facility] Rx#: [id number] Oral 950 Output: Urine 300 Other: Voiding Method Urinal # Voids 3 3 - Exam Gen: AOx3, NAD VSS stable at this time Integument: Postoperative bandages in good position and condition, no drainage noted Palpation: Mild tenderness to the midline region of the lower lumbar spine ROM: Full range of motion in all major muscle groups of the bilateral upper and lower extremities Sensory Exam: Senory exam to light touch is intact C5-T1 Senosry exam to light touch is intact L2-S1 Motor: 55 strength appreciated in the bilateral upper extremities with shoulder abduction, shoulder elevation, almost extension, elbow flexion, wrist extension, wrist flexion, upholstery trimmer Left lower extremity demonstrates 45 strength with hip flexion, knee extension, knee flexion, plantar flexion, dorsiflexion, EHL, FHL Right lower extremity demonstrates 4-/5 strength with knee extension and knee flexion, 4/5 with hip flexion, plantar flexion, dorsiflexion, EHL, FHL Reflexes: 2/4 in all UE and LE Negative Norris's bilaterally Negative Babinski bilaterally Negative clonus bilaterally - Labs CBC & Chem 7: 08/27/21 07:19 08/27/21 07:19 Assessment and Plan Assessment: Postoperative day #5 status post MIS posterior stabilization L4-S1, kyphoplasty with biopsy of L5 Plan: Pain control, continue with current medication GI and DVT prophylaxis, continue with current medication Wound care, we'll likely change dressing prior to discharge tomorrow Continue with daily PT/OT Weight-bear as tolerated, recommend walker at all times with ambulation Utilize brace when up and ambulating Other medical specialty recommendations Discharge planning: Planning for discharge to inpatient rehab tomorrow Time with Patient: Less than 30
[2021-08-28] MEDS: FOLIC ACID 1 MG TAB PO SCH (12:49)
[2021-08-28] MEDS: THIAMINE 100 MG TAB PO SCH (12:49)
[2021-08-28] MEDS: MULTIVITAMINS, THERA 1 EACH TAB PO SCH (12:49)
[2021-08-28] MEDS: LACTATED RINGERS 1,000 ML IV SCH (12:50)
[2021-08-28] MEDS: ATORVASTATIN 40 MG TAB PO SCH (22:01)
[2021-08-28] MEDS: BUTALB/APAP/CAFF 50-325-40MG TAB PO PRN (22:01)
[2021-08-28] MEDS: oxyCODONE-APAP 5-325MG 1 EACH TAB PO PRN (22:02)
[2021-08-29] MEDS: oxyCODONE-APAP 5-325MG 1 EACH TAB PO PRN ×3 (02:27→11:57)
[2021-08-29 04:59] VITALS: BP 167/92; PULSE 76; RESP 18; TEMP 98.2
[2021-08-29] MEDS ORDERED: VANCOMYCIN TROUGH DUE 1 EACH MISC MISCELLANE ONE (05:00)
[2021-08-29] MEDS: VANCOMYCIN 2,000 MG in SODIUM CHLORIDE 0.9% 500 ML 500 ML IVPB SCH (06:10)
[2021-08-29 06:47] LABS: African American GFR (CKD) >90 (>60 ml/min/1.73 sqM); Non-African American GFR(CKD) >90 (>60 ml/min/1.73 sqM)
[2021-08-29] MEDS: DULoxetine HCL 60 MG CAPSULE.DR PO SCH (08:12)
[2021-08-29] MEDS: CYCLOBENZAPRINE 10 MG TAB PO SCH (08:12)
[2021-08-29] MEDS: GABAPENTIN 300 MG CAP PO SCH (08:12)
[2021-08-29] MEDS: CALCIUM CARBONATE 500 MG CHEWABLE PO SCH (08:12)
[2021-08-29] MEDS: PANTOPRAZOLE 40 MG TABLET PO SCH (08:13)
[2021-08-29] MEDS: SUCRALFATE 1 GM TAB PO SCH (08:13)
[2021-08-29] MEDS: TAMSULOSIN 0.4 MG CAP.ER.24H PO SCH (08:13)
[2021-08-29] MEDS: CYANOCOBALAMIN 500 MCG TAB PO SCH (08:14)
--- NOTE | 2021-08-29 08:52 | P.PN ---
Subjective Progress Note Date: 08/29/21 Principal diagnosis: L5 a/c VCF fracture with burst component Back pain, Leg pain Patient seen and examined today. He is laying in bed this morning and continues to have c/o pain. Patient has concerns about pain management at rehab and education was provided regarding his concerns. Encouraged patient to get up with all meals as he tolerates. Encouraged patient to work with physical therapy. He may be discharged today to inpatient rehab. LSO brace present at bedside. Tiffanie ent has been afebrile, denies nausea/vomiting, or chest pain. Objective - Vital Signs Vital signs: Vital Signs Temp 98.2 F 08/29/21 04:56 Pulse 76 08/29/21 04:56 Resp 18 08/29/21 04:56 BP 167/92 08/29/21 04:56 Pulse Ox 96 08/29/21 04:56 FiO2 Intake & Output 08/28/21 08/29/21 08/29/21 18:59 06:59 18:59 Intake Total 200 1080 Balance 200 1080 Intake: Oral 200 1080 Other: Voiding Method Urinal Urinal # Voids 2 - Exam Physical Examination General: The patient is awake and alert, in no acute distress Skin: Skin is warm and dry with noted generalized psoriasis. Hairy patches abse nt, no dorsal skin dimples, no cafe au lait spots, Surgical incisions in lumbar region. Eye: Pupils are equal, round and reactive to light, extra-ocular movements are intact; there is normal conjunctiva bilaterally. Neck: The neck is supple, there is no tenderness and ROM intact. Cardiovascular: There is a regular rate and rhythm. No murmur, rub or gallop is appreciated. +2 edema to BLE. Respiratory: Lungs are clear to auscultation, respirations are non-labored, breath sounds are equal. Gastrointestinal: Soft, non-distended, non-tender abdomen . Back: There is no tenderness to palpation in the paralumbar region. There is no obvious deformity . Musculoskeletal: ROM limited to lumbar spine and right lower extremity; 4/5 in BLE. FROM in all other major muscle groups with 5/5 strength. Neurological: CN 2-12 intact. There are no obvious motor or sensory deficits. Movement and coordination equal and intact. Sensory exam to light touch intact C5-T1 and intact from L2-S1. Reflexes 2/4 in bilateral upper and lower extremities. Negative Hoffmans, babinski, and clonus signs. Psychiatric: Cooperative, appropriate mood & affect, normal judgment. - Labs CBC & Chem 7: 08/27/21 07:19 08/29/21 05:44 Assessment and Plan Assessment: Post Op Day 6: L4-S1 stabilization with L5 biopsy and kyphosplasty and L5-S1 decompression -severe low back pain s/p ffs -L5 AO type A4 burst fracture -Possible lytic foci L5 -Multiple medical commodities Plan: Plan: -Appreciate skin care consultant and team management. -Activity: Ambulate QID, OOB all meals, up and about, limit lifting bending twisting to less than 5 lbs. Use walker or cane if needed for stability. -Daily PT/OT, increase ambulation strength and balance. -Brace when up and about, not needed in bed or chair -Pain control: Adequate at this time -Meds: reviewed -GI ppx: senna, Miralax -DVT PPX: Heparin, SCDs, TEDS -Hygiene: Shower today. Maintain dressing clean and dry. Meticulous cleaning after BMs away from the incision site -Encourage IS 10x/hr -Dispo: Anticipate discharge to IP rehab today *I reviewed and discussed this case with my attending Dr. Anderson, whom has reviewed this chart and films and is in agreement with assessment and plan of care as outlined above. I have personally seen and examined the patient, performed the documentation and the assessment and plan as written. Number of minutes spent on the visit: 20m.
--- NOTE | 2021-08-29 09:48 | P.DS ---
Providers Date of admission: 08/18/21 17:19 Expected date of discharge: 08/29/21 Attending physician: Emir Anderson DO Consults: 08/19/21 07:52 Consult Physician Routine Consulting Provider: Kareem Linder Consult Reason/Comments: Vertigo, extreme dizziness, frequent falls Do you want consulting provider notified?: Yes 08/19/21 11:51 Consult Physician Urgent Consulting Provider: Missael Donaldson Consult Reason/Comments: vertigo, dizziness (pt also has vertebral fx from fall) Do you want consulting provider notified?: Yes 08/20/21 08:25 Consult Physician Urgent Consulting Provider: Colleen Acosta Consult Reason/Comments: medical management, surgical clearance Do you want consulting provider notified?: Yes 08/24/21 12:22 Consult Physician Routine Consulting Provider: Rahat Cortez Consult Reason/Comments: Possible Inpatient Rehab s/p L4-S1 stabilization Do you want consulting provider notified?: Yes Primary care physician: Damon Rodriguez Hospital Course: Hospital Course: The patient was evaluated preoperatively and found to have the diagnosis of L5 vertebral burst fracture. They underwent appropriate preoperative care and were willing to undergo the intended procedure. They underwent a successful L4 to S1 MIS posterior stabilization with L5 biopsy and kyphoplasty with L5 to S1 decompression, were recovered appropriately and sent to the floor. While on the floor they worked with physical therapy, occupational therapy and nursing to enhance their recovery experience. Their pain was well controlled through their stay and they were started on appropriate medications, DVT ppx modalities, activity and dietary needs. Daily labs were monitored closely, and transfusions were only used when necessary. Medicine as well as other consulting services have made their input and have helped with our team approach and multidisciplinary care. PT milestones have been met and passed and they have made the recommendation of subacute rehab for this patient and treating providers agree with this care path. The patient will be discharged home with appropriate medications, instructions and follow-up information and in stable condition. Patient Condition at Discharge: Fair Plan - Discharge Summary Discharge Rx Participant: No New Discharge Prescriptions: New Sulfamethox-Tmp 800-160Mg [Bactrim DS 800-160 mg] 1 tab PO Q12HR 5 Days #10 tab Cyclobenzaprine [Flexeril] 10 mg PO TID #90 tab Sennosides/Docusate Sodium [Senna Plus 8.6-50 mg Tablet] 1 each PO DAILY PRN #20 tablet PRN Reason: Constipation Gabapentin 300 mg PO TID #90 cap oxyCODONE-APAP 5-325MG [Percocet 5-325 mg] 1 tab PO Q4HR PRN #56 tab PRN Reason: Pain No Action Metoprolol Tartrate [Lopressor] 150 mg PO DAILY Folic Acid 1 mg PO DAILY@1200 #30 tab Thiamine [Vitamin B-1] 100 mg PO DAILY@1200 #30 tab Pyridoxine [Vitamin B-6] 50 mg PO DAILY #30 tab Cyanocobalamin [Vitamin B-12] 1,000 mcg PO DAILY #30 tab Calcium Carbonate [Tums] 1,500 mg PO DAILY lisinopriL [Zestril] 20 mg PO DAILY #30 tab Pantoprazole Sodium [Protonix] 80 mg PO DAILY Sucralfate [Carafate] 3 gm PO DAILY Tamsulosin [Flomax] 0.4 mg PO DAILY 30 Days #30 cap Famotidine [Pepcid] 20 mg PO BID 30 Days #60 tab Meloxicam [Mobic] 7.5 mg PO BID PRN PRN Reason: Pain Baclofen [Lioresal] 20 mg PO BID PRN PRN Reason: Muscle Pain DULoxetine HCL [Cymbalta] 60 mg PO BID Lidocaine 5% Patch [Lidoderm 5% Patch] 1 patch TOPICAL DAILY PRN PRN Reason: Pain Butalb/Acetaminophen/Caffeine [Fioricet 50-300-40 mg Capsule] 1 cap PO TID PRN PRN Reason: Migraine Headache Atorvastatin [Lipitor] 40 mg PO HS Triamcinolone 0.1% Ointment [Kenalog 0.1% Ointment] 1 applic TOPICAL BID Multivitamins, Thera [Multivitamin (formulary)] 1 tab PO DAILY@1200 amLODIPine [Norvasc] 5 mg PO DAILY #30 tab traMADol HCl [Ultram] 50 mg PO QID PRN 3 Days #12 tab PRN Reason: Pain Clopidogrel [Plavix] 75 mg PO DAILY #30 tab Magnesium Oxide [Mag-Ox] 1,200 mg PO DAILY Fludrocortisone [Florinef] 0.2 mg PO DAILY #30 tablet Aspirin EC [Ecotrin Low Dose] 81 mg PO DAILY Diclofenac Sodium [Voltaren] 75 mg PO BID PRN #30 tab PRN Reason: Pain oxyCODONE-APAP 5-325MG [Percocet 5-325 mg] 1 tab PO Q6H PRN PRN Reason: Pain Gabapentin [Neurontin] 300 mg PO BID Discharge Medication List Metoprolol Tartrate [Lopressor] 150 mg PO DAILY 11/06/19 [History] Atorvastatin [Lipitor] 40 mg PO HS 06/18/20 [History] Folic Acid 1 mg PO DAILY@1200 #30 tab 12/23/20 [Rx] Thiamine [Vitamin B-1] 100 mg PO DAILY@1200 #30 tab 12/23/20 [Rx] Multivitamins, Thera [Multivitamin (formulary)] 1 tab PO DAILY@1200 01/09/21 [History] Triamcinolone 0.1% Ointment [Kenalog 0.1% Ointment] 1 applic TOPICAL BID 01/09/21 [History] Pyridoxine [Vitamin B-6] 50 mg PO DAILY #30 tab 01/12/21 [Rx] Cyanocobalamin [Vitamin B-12] 1,000 mcg PO DAILY #30 tab 03/03/21 [Rx] amLODIPine [Norvasc] 5 mg PO DAILY #30 tab 04/08/21 [Rx] traMADol HCl [Ultram] 50 mg PO QID PRN 3 Days #12 tab 04/08/21 [Rx] Calcium Carbonate [Tums] 1,500 mg PO DAILY 04/21/21 [History] Clopidogrel [Plavix] 75 mg PO DAILY #30 tab 04/26/21 [Rx] lisinopriL [Zestril] 20 mg PO DAILY #30 tab 04/26/21 [Rx] Magnesium Oxide [Mag-Ox] 1,200 mg PO DAILY 05/05/21 [History] Pantoprazole Sodium [Protonix] 80 mg PO DAILY 05/05/21 [History] Sucralfate [Carafate] 3 gm PO DAILY 05/05/21 [History] Fludrocortisone [Florinef] 0.2 mg PO DAILY #30 tablet 05/11/21 [Rx] Tamsulosin [Flomax] 0.4 mg PO DAILY 30 Days #30 cap 05/11/21 [Rx] Aspirin EC [Ecotrin Low Dose] 81 mg PO DAILY 05/28/21 [History] Famotidine [Pepcid] 20 mg PO BID 30 Days #60 tab 06/06/21 [Rx] Diclofenac Sodium [Voltaren] 75 mg PO BID PRN #30 tab 08/12/21 [Rx] Baclofen [Lioresal] 20 mg PO BID PRN 08/18/21 [History] Butalb/Acetaminophen/Caffeine [Fioricet 50-300-40 mg Capsule] 1 cap PO TID PRN 08/18/21 [History] DULoxetine HCL [Cymbalta] 60 mg PO BID 08/18/21 [History] Gabapentin [Neurontin] 300 mg PO BID 08/18/21 [History] Lidocaine 5% Patch [Lidoderm 5% Patch] 1 patch TOPICAL DAILY PRN 08/18/21 [History] Meloxicam [Mobic] 7.5 mg PO BID PRN 08/18/21 [History] oxyCODONE-APAP 5-325MG [Percocet 5-325 mg] 1 tab PO Q6H PRN 08/18/21 [History] Cyclobenzaprine [Flexeril] 10 mg PO TID #90 tab 08/26/21 [Rx] Gabapentin 300 mg PO TID #90 cap 08/26/21 [Rx] Sennosides/Docusate Sodium [Senna Plus 8.6-50 mg Tablet] 1 each PO DAILY PRN #20 tablet 08/26/21 [Rx] Sulfamethox-Tmp 800-160Mg [Bactrim DS 800-160 mg] 1 tab PO Q12HR 5 Days #10 tab 08/26/21 [Rx] oxyCODONE-APAP 5-325MG [Percocet 5-325 mg] 1 tab PO Q4HR PRN #56 tab 08/26/21 [Rx] Follow up Appointment(s)/Referral(s): Damon Rodriguez MD [Primary Care Provider] - 1-2 days Missael Donaldson MD [STAFF PHYSICIAN] - 1 Week (PLEASE CALL OFFICE ON SUNDAY TO MAKE YOUR APPOINTMENT FOR VESTIBULAR TESTING) Emir Anderson DO [Doctor of Osteopathic Medicine] - 2 Weeks Geeta Powell [NON-STAFF] - As Needed (Supplier of LSO brace) Activity/Diet/Wound Care/Special Instructions: Spine Discharge and Recovery Instructions Date of Surgery: 08/23/2021 Diagnosis: Vertebral compression fracture Procedure: L4 to S1 stabilization with L5 biopsy and kyphoplasty and decompression Medications: See medication list All medication refills should be obtained through your primary care doctor or your clinic spine surgeon. Please discuss prescription refills at your follow up appointment. Do not call the hospital for medication refills. Dressing: Leave your dressing in place for a total of 5 days post operatively. Then you may remove your dressing and leave open to air. Keep the area clean and if not able to keep area clean, then cover with sterile gauze and tape. Showering: You may shower 3 days after your procedure allowing soap and water to run over incision. Do not scrub. Do not soak. Blot dry. Follow up: Please confirm a follow up appointment with your surgeon 3 weeks post operatively. Please make an appointment to follow up with your PCP in 1-2 weeks after surgery for evaluation 3 phase, 3-week plan POST OP WEEKS 1-3 1. Lifting/carrying/pushing/pulling limited to less than 5 pounds. 2. Do not sit for longer than 15 minutes at one time. Get up and walk around. Prolonged sitting is NOT advised. If you lay down, see if you can tolerate laying down on you front (belly side) 3. Walk for periods of 15 minutes = 1 mile but no longer; do it multiple times times each day. 4. Ice your low back after activity. POST OP WEEKS 3-6 1. Lifting limited to less than 20 pounds. 2. Do not sit for longer than 30 minutes at a time. Frequently change positions. Use a sit-to stand workstation or take frequent breaks from sitting if you have returned to work. 3. Walk for 30 minutes each day. If possible, do these three or more times a day POST OP WEEKS 6+ At your 6-week appointment we will give you a physical therapy referral to focus on a core stabilization and strengthening program. You should also work on leg & buttock strengthening, hamstring & quadriceps stretching, and continue a low impact aerobic activity program such as swimming, walking, or riding a stationary bicycle. During the initial 6 weeks after your surgery, you are at the highest risk of re-injuring your spine. You should generally avoid BLTs (bending, lifting and twisting combination motions) and follow the above guidelines to reduce the chance of reinjury. You can anticipate post op appointments in our office at approximately 3 weeks and 6 weeks after your surgery. INCISION CARE: If your incision is not draining you do NOT need to cover it with a dressing. Keep your incision clean, dry and intact. In most cases, we apply skin glue, abhilash or sutures to the incision at the time of surgery. This will be like a crust or have the appearance of a scab and will fall off in time on its own. The stitches or abhilash need to be removed at 3 weeks post op appointment. You may begin to shower 3 days after surgery (this allows the glue to hoff well). However, please avoid scrubbing the incision site or peeling off any of the skin glue. This will ensure optimal healing of your incision. Also, during this time avoid soaking the incision area in water - this includes swimming pools, hot tubs or baths. No ointments, lotions or oils on the incision until your surgeon allows. Leave abhilash, sutures or glue in place. Neurological dysfunction that comes on suddenly can also be a sign of a stroke. Below some common symptoms of a stroke are listed: B - balance difficulty such as sudden onset walking or leaning to one side - NEW E - eye problem such as sudden double vision or trouble seeing on one side - NEW F - Facial weakness or numbness on one side - NEW A - Arm or leg weakness or numbness on one side - NEW S - Slurred speech or difficulty with word finding - NEW T - Time is BRAIN! Call 911 as soon as you recognize these symptoms Diet: Consume a regular diet rich in vegetables and lean protein such as chicken or fish. You should consume in a ratio of approximately 20% fats|40% carbohydrates|40%protein. Vegetables, sweet potatoes, brown rice or quinoa are examples of good carbohydrates. Chips, white bread, cookies and sweets/sugar are examples of bad carbohydrates. Limit your bad carbs, go wild with good carbs. "Life's Simple 7" Guidelines as per [place] [employer] These will help you reclaim your life after surgery and head filter tank tender helper in your recovery, keeping in mind your restrictions. (1) Get Active. Physical activity can help people lose weight, control high blood pressure and cholesterol, feel emotionally better, and sleep better. (2) Control Cholesterol. Avoid a diet high in saturated fat, trans fat, & cholesterol. Limit whole milk & cream, ice cream, butter, egg yolks, processed meats (like sausage and hot dogs), and fatty meats. Choose healthy foods that are low in saturated fat, trans fat and cholesterol which include: Fruits and vegetables, fiber rich grain products (like whole grain pasta and brown rice), lean meat such as chicken, fish, nuts, seeds, and legumes. (3) Eat Better. Eat small portions. Shop at the grocery with a list and do not stray from it. Tips for a healthy diet include: Limit sodium intake to less than 1500mg daily, avoid prepackaged, processed, and fast foods, choose a diet rich in fruits, vegetables, and whole grain, high fiber foods, and limit saturated & cholesterol in your diet. (4) Manage Blood Pressure. If you have high blood pressure, you should have a cuff at home so that you can check your blood pressure regularly. Be sure you have a good cuff. An arm one is generally better than a wrist one. Bring the cuff to a doctor's appointment to validate that the measurements that your cuff are taking are accurate. Take your blood pressure twice daily when you are sitting down and relaxing. Record the numbers in a log and bring this log with you to your doctors' appointments. (5) Lose Weight if your BMI is above 25. A healthy BMI is between 19-25. To calculate Your BMI, you may use a Standard BMI Calculator on the NIH BMI website: <www.nhlbi.nih.gov/guidelines/obesity/BMI/bmicalc.htm>. Weigh oneself daily. If you are overweight, set a goal to lose weight. A pound a week loss if needed is a good target. (6) Reduce Blood Sugar. Limit foods and liquids with "added sugars." (Added sugars include sucrose, fructose, glucose, maltose, dextrose, high fructose corn syrup, corn syrup, concentrated fruit juice and honey). (7) Stop Smoking. If you smoke, quitting smoking is one of the best things that you can do for your health. Smoking increases your risk of heart attack, stroke, and peripheral vascular disease, which is a build-up of plaque in your arteries. Please discard all the cigarettes and lighters in your house. Have a plan for what you will do when you have the urge to smoke. Direct and second- hand smoke shortens your life as well as the lives of your family, friends and others around you. For your health and the health of those around you, please consider quitting! Proper Bending Body Mechanics: Maintain a wide stance with one foot slightly in front of the other. Keep your back straight. Bend utilizing the strength in your hips and knees. Do not bend at the waist. Maintain the lifted object at your waist-level close to your body. Avoid lifting weight that causes immediately pain or pain anywhere in the body afterwards. Smoking/Nicotine If there was ever one thing that you could do to increase your overall health, decrease your risk of cardiovascular problems by about 39% the second you make the choice, it is to STOP SMOKING. Your body's most instant gratification is the second you stop smoking. We have all heard the studies, read the articles but it is true, smoking is extremely bad for your overall health, and moreover it is detrimental to your bone health. Nicotine, IN ANY FORM, kills bone cells, prevents your body from healing fractures, and significantly prolongs healing after surgery. In spine surgery specifically, it increases your risk of not healing your bones to create a fusion and increases your risk of having a revision surgery due to this up to 60%. I know it is hard. I know it feels impossible. But there are ways. Take control of your life. We are here to help you through it. And when you are ready, ask us and we can direct you to help if you desire. Use the START Plan to Quit Smoking (please visit the Helpguide.org website listed below for more information): S = Set a quit date. Choose a date within the next 2 weeks, so you have enough time to prepare without losing your motivation to quit. If you mainly smoke at work, quit on the weekend, so you have a few days to adjust to the change. T = Tell family, friends, and co-workers that you plan to quit. Let your friends and family in on your plan to quit smoking and tell them you need their support and encouragement to stop. Look for a quit franki who wants to stop smoking as well. You can help each other get through the rough times. A = Anticipate and plan for the challenges you'll face while quitting. Most people who begin smoking again do so within the first 3 months. You can help yourself make it through by preparing ahead for common challenges, such as nicotine withdrawal and cigarette cravings. R = Remove cigarettes and other tobacco products from your home, car, and work. Throw away all your cigarettes (no emergency pack!), lighters, ashtrays, and matches. Wash your clothes and freshen up anything that smells like smoke. Shampoo your car, clean your drapes and carpet, and steam your furniture. T = Talk to your doctor about getting help to quit. Your doctor can prescribe medication to help with withdrawal and suggest other alternatives. If you can't see a doctor, you can get many products over the counter at your local pharmacy or grocery store, including the nicotine patch, nicotine lozenges, and nicotine gum. Resources for Quitting Smoking: <https://www.[place].gov/documents/[facility] /Quit_Tobacco_Resources_for_patients_313480_7.pdf> Supplementation: Take recommended dosages of Vitamin D and Calcium to help fortify your bones and help them to heal. See your health maintenance packet for dosages and recommended levels. DVT/VTE prophylaxis: You will be given compression stockings from the hospital. Wear these daily for the first two weeks after surgery. You may take them off at night. You may be prescribed a medication to help thin your blood. Take this as directed. If you are not prescribed this medication, early and frequent ambulation has been shown to be the best prophylaxis to deep vein thrombosis and sequelae related to this event. Discharge Disposition: TRANSFER TO SNF/ECF
[2021-08-29] MEDS: FLUDROCORTISONE 0.1 MG TAB PO SCH (10:56)
[2021-08-29] MEDS: PYRIDOXINE 50 MG TAB PO SCH (10:56)
[2021-08-29] MEDS: METOPROLOL SUCCINATE (ER) 100 MG TAB.ER.24H PO SCH (10:56)
[2021-08-29] MEDS: MAGNESIUM OXIDE 400 MG TAB PO SCH (10:57)
[2021-08-29] MEDS: TRIAMCINOLONE ACET 0.1% OINTMENT 15 GM TUBE TOPICAL SCH (10:57)
[2021-08-29] MEDS: amLODIPine 10 MG TAB PO SCH (10:57)
[2021-08-29] MEDS: MULTIVITAMINS, THERA 1 EACH TAB PO SCH (11:57)
[2021-08-29] MEDS: THIAMINE 100 MG TAB PO SCH (11:57)
[2021-08-29] MEDS: FOLIC ACID 1 MG TAB PO SCH (11:57)
--- NOTE | 2021-08-29 12:25 | P.PN ---
Subjective Progress Note Date: 08/29/21 History of Presenting Illness: Patient is a very pleasant 71-year-old male with a past medical history of hypertension, hyperlipidemia, chronic systolic heart failure with EF of 45-50%, history of chronic benign positional vertigo with previous brainstem operation for decompression, GERD, BPH, and chronic back pain. Patient currently admitted under orthospine surgical team and scheduled to undergo surgical stabilization of L5 AO burst fracture with possible lytic foci of L5. We have been consulted for presurgical clearance as well as medical management throughout hospitalization. Patient seen and fully evaluated at bedside. Patient reports possible history of atrial fibrillation stating that he was told by many nurses that he had atrial fibrillation but reports when evaluated by charm filter operator helper he was told he did not. Patient has recently had cardiac workup with Cardiac catheterization completed 04/05/21 revealing predominantly mid CAD and a 50% mid LAD lesion, cardiology recommended aggressive risk factor modification and continued medical management of LAD lesion. Echocardiogram completed 04/25/21 revealed an EF of 45-50%.. Orthospine specialist reported plan is for patient to undergo surgical stabilization of L5 AO burst fracture with possible lytic foci of L5 Sunday08/23/21. Physical exam: Patient seen and fully evaluated at bedside this morning. He denies any chest pain or shortness of breath.. Patient is being transferred today to inpatient rehab Vital signs reviewed and stable. General: Nontoxic, no distress and appears stated age. Obese male. Derm: Skin warm and dry, normal coloration for ethnicity. Patient with psoriasis rash to face Head: Atraumatic, normocephalic and symmetric. Eyes: EOMs intact, no lid lag, and anicteric sclera Mouth: no lip lesions, mucus membranes moist Cardiovascular: Irregularly irregular with normal S1S2, no murmur, positive posterior tibial pulses bilaterally, and cap refill < 2 seconds. Lungs: Respirations even, regular, and unlabored on room air. Lungs CTA bilaterally, no rhonchi, no rales, no wheezing, and no accessory muscle usage. Abdominal: soft, nontender to palpation, no guarding, no appreciable organomegaly Ext: ROM intact. No gross muscle atrophy, no edema, no contractures Neuro: Speech clear, face symmetrical and CN II-XII grossly intact. Patient with equal and moderate strength in bilateral upper and lower extremities. Patient reports decreased sensation to bilateral lower extremities Psych: Alert and oriented to person, place, time, and situation. Appropriate and pleasant affect. Assessment and Plan of Care: # L5 AO burst fracture with possible lytic foci of L5. -Status post 4-S1 stabilization with L5 biopsy and kyphosplasty and L5-S1 decompression August 23. -Pain control -PT/OT evaluation -The need for jail home versus RPR # Hypertension -Resume Norvasc 10 mg daily -Increased Toprol-XL to 100 mg daily -Resume lisinopril -Continue to monitor vital signs closely. # Hypokalemia - replaced # BPH -Continue Flomax. # GERD -Continue Protonix. Objective - Vital Signs Vital signs: Vital Signs Temp 98.2 F 08/29/21 04:56 Pulse 76 08/29/21 08:00 Resp 18 08/29/21 08:00 BP 167/92 08/29/21 04:56 Pulse Ox 96 08/29/21 04:56 FiO2 Intake & Output 08/28/21 08/29/21 08/29/21 18:59 06:59 18:59 Intake Total 200 1080 Output Total 300 Balance 200 1080 -300 Intake: Oral 200 1080 Output: Urine 300 Other: Voiding Method Urinal Urinal Urinal # Voids 2 1 - Labs CBC & Chem 7: 08/27/21 07:19 08/29/21 05:44
== END 2021-08-29 12:30 | DRG 478 ==
LOC: EC 10:03 → 5NMEDONC 17:19
PROVIDERS: ADMIT Orthopaedic Surgery; ATTEND Orthopaedic Surgery
PROC: 0Q903ZX Drainage of Lumbar Vertebra, Percutaneous Approach, Diagnostic (ICD-10-PCS; principal; 2021-08-23 08:15)
PROC: 0QS004Z Reposition Lumbar Vertebra with Internal Fixation Device, Open Approach (ICD-10-PCS; principal; 2021-08-23 08:15)
PROC: 0QS03ZZ Reposition Lumbar Vertebra, Percutaneous Approach (ICD-10-PCS; principal; 2021-08-23 08:15)
PROC: 0QU03JZ Supplement Lumbar Vertebra with Synthetic Substitute, Percutaneous Approach (ICD-10-PCS; principal; 2021-08-23 08:15)
DX: S32.051A Stable burst fracture of fifth lumbar vertebra, initial encounter for closed fracture (principal); I50.22 Chronic systolic (congestive) heart failure; K51.90 Ulcerative colitis, unspecified, without complications; E78.5 Hyperlipidemia, unspecified; E11.40 Type 2 diabetes mellitus with diabetic neuropathy, unspecified; I48.0 Paroxysmal atrial fibrillation; I11.0 Hypertensive heart disease with heart failure; K21.9 Gastro-esophageal reflux disease without esophagitis; M51.16 Intervertebral disc disorders with radiculopathy, lumbar region; W19.XXXA Unspecified fall, initial encounter; H81.10 Benign paroxysmal vertigo, unspecified ear; N40.0 Benign prostatic hyperplasia without lower urinary tract symptoms; R29.6 Repeated falls; L40.9 Psoriasis, unspecified; Z91.81 History of falling; Z86.14 Personal history of Methicillin resistant Staphylococcus aureus infection; Y92.009 Unspecified place in unspecified non-institutional (private) residence as the place of occurrence of the external cause; Z79.02 Long term (current) use of antithrombotics/antiplatelets; Z79.1 Long term (current) use of non-steroidal anti-inflammatories (NSAID); Z79.82 Long term (current) use of aspirin; Z79.899 Other long term (current) drug therapy; Z90.13 Acquired absence of bilateral breasts and nipples; Z87.891 Personal history of nicotine dependence; Z86.010 Personal history of colon polyps; Z82.49 Family history of ischemic heart disease and other diseases of the circulatory system
CPT/HCPCS: 70450; 72100; 72131; 72158; 80048; 80053; 80202; 81003; 82565; 83735; 85025; 85610; 88307; 88311; 88342; 93005; 96374; 99284

== ENCOUNTER 2021-09-13 13:59 | Inpatient (IN) | payer MEDICARE ==
[2021-09-13] MEDS ORDERED: SODIUM CHLORIDE 0.9% 1,000 ML IV ONE (14:35)
[2021-09-13 15:40] LABS: Basophils % (A) 0 %; Eosinophils # (A) 0.1 k/uL (0-0.7); Eosinophils % (A) 1 %; HCT 37.7 % (39.0-53.0); HGB 12.2 gm/dL (13.0-17.5); Lymphocytes % (A) 10 %; MCH 29.3 pg (25.0-35.0); MCHC 32.4 g/dL (31.0-37.0); MCV 90.4 fL (80.0-100.0); Mean Platelet Volume 7.3; Monocytes # (A) 0.8 k/uL (0-1.0); Monocytes % (A) 7 %; Neutrophils # (A) 8.3 k/uL (1.3-7.7); Neutrophils % (A) 81 %; Platelet Count 235 k/uL (150-450); RBC 4.18 m/uL (4.30-5.90); RDW 14.4 % (11.5-15.5); WBC 10.3 k/uL (3.8-10.6)
[2021-09-13 15:47] LABS: ALT 15 U/L (4-49); AST 23 U/L (17-59); African American GFR (CKD) 51 (>60 ml/min/1.73 sqM); Albumin 4.2 g/dL (3.5-5.0); Alcohol <10 mg/dL; Alkaline Phosphatase 96 U/L (38-126); Anion Gap 13 mmol/L; Blood Urea Nitrogen 25 mg/dL (9-20); Calcium 9.5 mg/dL (8.4-10.2); Carbon Dioxide 28 mmol/L (22-30); Chloride 102 mmol/L (98-107); Creatine Kinase 67 U/L (55-170); Glucose 140 mg/dL (74-99); Non-African American GFR(CKD) 44 (>60 ml/min/1.73 sqM); Partial Thromboplastin Time 31.5 sec (22.0-30.0); Potassium 3.8 mmol/L (3.5-5.1); Prothrombin Time 10.9 sec (9.0-12.0); Sodium 143 mmol/L (137-145); Total Bilirubin 0.6 mg/dL (0.2-1.3); Total Protein 6.8 g/dL (6.3-8.2)
[2021-09-13 16:06] LABS: Glucose,Whole Blood 123 mg/dL (70-110)
--- NOTE | 2021-09-13 16:16 | CT ---
EXAMINATION TYPE: CT brain wo con DATE OF EXAM: 09/13/2021 COMPARISON: CT dated 08/19/2021 HISTORY: AMS CT DLP: 1209.4 mGycm Automated exposure control for dose reduction was used. TECHNIQUE: CT scan of the brain is performed without IV contrast administration. FINDINGS: Brain volume loss changes, likely age-related. Stable postsurgical changes on the right side of the p osterior cranial fossa. Scattered arterial atherosclerotic calcifications. No acute intracranial hemorrhage. No gross acute cortical infarct. No midline shift, herniation or ve ntriculomegaly. Unremarkable sella and CP angles. No gross space-occupying lesion, vasogenic edema or mass effect. Unremarkable orbits. Clear visualized paranasal sinuses and mastoid air cells. Unchanged calvarial deondre nini. IMPRESSION: No acute intracranial abnormality or gross space-occupying lesion by this nonenhanced CT scan.
--- NOTE | 2021-09-13 16:22 | XR ---
EXAMINATION TYPE: XR chest 1V portable DATE OF EXAM: 09/13/2021 COMPARISON: Chest x-ray dated 07/05/2021 HISTORY: Altered mental status TECHNIQUE: Single frontal view of the chest is obtained. FINDINGS: Exam somewhat limited technically. Patient is rotated. Central vascularity appears prominen tly similar to prior exam. No evident pneumothorax or pleural effusion. Questionable prominence of th e interstitium. Cardiac mediastinal silhouette shows a similar appearance. IMPRESSION: Difficult to exclude pulmonary venous hypertension and early interstitial edema.
[2021-09-13 16:49] LABS: Appearance,Urine Clear (Clear); Bacteria,Urine Rare /hpf; Bilirubin,Urine 1+ (Negative); Blood,Urine Negative (Negative); Color,Urine Yellow; Glucose,Urine (UA) Negative (Negative); Hyaline Casts,Urine 16 /lpf (0-2); Ketones,Urine Trace (Negative); Leukocyte Esterase,Urine Small (Negative); Mucus,Urine Rare /hpf; Nitrite,Urine Negative (Negative); PH, Urine 5.5 (5.0-8.0); Protein,Urine 1+ (Negative); RBC,Urine 2 /hpf (0-5); Specific Gravity,Urine 1.036 (1.001-1.035); Squamous Epithelial Cell,Urine <1 /hpf (0-4); WBC,Urine 2 /hpf (0-5)
--- NOTE | 2021-09-13 16:57 | ED ---
Syncope HPI - General Chief Complaint: Fall Stated Complaint: Fall Time Seen by Provider: 09/13/21 14:16 Source: patient Mode of arrival: EMS - History of Present Illness Initial Comments: Patient presents after a reported syncopal episode. Apparently he was found lying on the lawn in front of his house. Patient is altered. Although he is able to follow some commands he cannot provide further details or explain what happened. - Related Data Home Medications Medication Instructions Recorded Confirmed Atorvastatin [Lipitor] 40 mg PO HS 06/18/20 08/18/21 Multivitamins, Thera [Multivitamin 1 tab PO DAILY@1200 01/09/21 08/18/21 (formulary)] Triamcinolone 0.1% Ointment 1 applic TOPICAL BID 01/09/21 08/18/21 [Kenalog 0.1% Ointment] Calcium Carbonate [Tums] 1,500 mg PO DAILY 04/21/21 08/18/21 Magnesium Oxide [Mag-Ox] 1,200 mg PO DAILY 05/05/21 08/18/21 Pantoprazole Sodium [Protonix] 80 mg PO DAILY 05/05/21 08/18/21 Sucralfate [Carafate] 3 gm PO DAILY 05/05/21 08/18/21 Aspirin EC [Ecotrin Low Dose] 81 mg PO DAILY 05/28/21 08/18/21 Baclofen [Lioresal] 20 mg PO BID PRN 08/18/21 08/18/21 Butalb/Acetaminophen/Caffeine 1 cap PO TID PRN 08/18/21 08/18/21 [Fioricet 50-300-40 mg Capsule] DULoxetine HCL [Cymbalta] 60 mg PO BID 08/18/21 08/18/21 Lidocaine 5% Patch [Lidoderm 5% 1 patch TOPICAL DAILY PRN 08/18/21 08/18/21 Patch] oxyCODONE-APAP 5-325MG [Percocet 1 tab PO Q6H PRN 08/18/21 08/18/21 5-325 mg] Previous Rx's Medication Instructions Recorded Folic Acid 1 mg PO DAILY@1200 #30 tab 12/23/20 Thiamine [Vitamin B-1] 100 mg PO DAILY@1200 #30 tab 12/23/20 Pyridoxine [Vitamin B-6] 50 mg PO DAILY #30 tab 01/12/21 Cyanocobalamin [Vitamin B-12] 1,000 mcg PO DAILY #30 tab 03/03/21 Clopidogrel [Plavix] 75 mg PO DAILY #30 tab 04/26/21 lisinopriL [Zestril] 20 mg PO DAILY #30 tab 04/26/21 Fludrocortisone [Florinef] 0.2 mg PO DAILY #30 tablet 05/11/21 Tamsulosin [Flomax] 0.4 mg PO DAILY 30 Days #30 cap 05/11/21 Famotidine [Pepcid] 20 mg PO BID 30 Days #60 tab 06/06/21 Cyclobenzaprine [Flexeril] 10 mg PO TID #90 tab 08/26/21 Gabapentin 300 mg PO TID #90 cap 08/26/21 Sennosides/Docusate Sodium [Senna 1 each PO DAILY PRN #20 tablet 08/26/21 Plus 8.6-50 mg Tablet] Sulfamethox-Tmp 800-160Mg [Bactrim 1 tab PO Q12HR 5 Days #10 tab 08/26/21 DS 800-160 mg] oxyCODONE-APAP 5-325MG [Percocet 1 tab PO Q4HR PRN #56 tab 08/26/21 5-325 mg] Acetaminophen Tab [Tylenol] 650 mg PO Q6HR PRN tab 08/29/21 Cyclobenzaprine [Flexeril] 10 mg PO TID tab 08/29/21 Metoprolol Succinate (ER) [Toprol 100 mg PO DAILY tab 08/29/21 XL] amLODIPine [Norvasc] 10 mg PO DAILY tab 08/29/21 Allergies Allergy/AdvReac Type Severity Reaction Status Date / Time cephalexin monohydrate Allergy Anaphylaxis Verified 09/13/21 14:38 [From Keflex] Cephalosporins Allergy Anaphylaxis Verified 09/13/21 14:38 Penicillins Allergy Anaphylaxis Verified 09/13/21 14:38 Review of Systems ROS Statement: Those systems with pertinent positive or pertinent negative responses have been documented in the HPI. ROS Other: All systems not noted in ROS Statement are negative. Past Medical History Past Medical History: Atrial Fibrillation, Diabetes Mellitus, GERD/Reflux, Hyperlipidemia, Hypertension, Osteoarthritis (OA), Pneumonia, Prostate Disorder Additional Past Medical History / Comment(s): Pt recently admitted to [facility] on 06/03/21 with fall/possible TIA. Other hx: FALLS, falls with fractuers, vertigo, surgeries for compressed brain stem at [facility], diet controlled diabetes/neuropathy bilateral feet and occasionally in both hands fingertips, bilateral mastectomies d/t benign tumors, chronic low back pain, chronic headaches, BPH, ulcerative colitis, benign colon polyps History of Any Multi-Drug Resistant Organisms: MRSA Date of last positivie culture/infection: MRSA-03/11 MDRO Source:: Source unknown-MRSA Past Surgical History: Back Surgery, Breast Surgery, Orthopedic Surgery Additional Past Surgical History / Comment(s): Bilateral mastectomy with right sided lymp node removal, R knee cap removed d/t fracture, Back surgery for herniated disc, brain stem surgeries for decompression-for dizziness and a surgery for spinal fluid leakage, right ankle ORIF, bilateral wrist fractures SX Past Anesthesia/Blood Transfusion Reactions: No Reported Reaction Past Psychological History: No Psychological Hx Reported Smoking Status: Former smoker Past Alcohol Use History: None Reported Past Drug Use History: None Reported - Past Family History Father History Unknown: Yes Family Medical History: Congestive Heart Failure (CHF) Additional Family Medical History / Comment(s): at 68. Mother History Unknown: Yes Family Medical History: Hypertension Additional Family Medical History / Comment(s): Pulmonary hypertension. at 78. General Exam Limitations: altered mental status General appearance: obtunded Head exam: Present: atraumatic Eye exam: Present: PERRL ENT exam: Present: normal exam Neck exam: Present: normal inspection Respiratory exam: Present: normal lung sounds bilaterally. Absent: respiratory distress Cardiovascular Exam: Present: regular rate, normal rhythm GI/Abdominal exam: Present: soft. Absent: tenderness Extremities exam: Absent: tenderness Back exam: Absent: tenderness Neurological exam: Present: altered Psychiatric exam: Present: agitated Skin exam: Present: warm, dry Course Vital Signs 09/13/21 14:20 Temperature 98.6 F Pulse Rate 71 Respiratory 18 Rate Blood Pressure 104/59 O2 Sat by Pulse 95 Oximetry EKG Findings - EKG Comments: EKG Findings:: Twelve-lead EKG shows ventricular rate 61 bpm, normal GA interval and QRS complexes, no ST elevation or depression, interpreted by me as sinus rhythm. Medical Decision Making - Medical Decision Making Patient presents with confusion and altered mental status. The etiology of his syncope today is not clear. He remains altered. He will be admitted to the hospital. - Lab Data Result diagrams: 09/13/21 14:43 09/13/21 14:43 Lab Results 09/13/21 09/13/21 09/13/21 Range/Units 14:43 14:43 14:43 WBC 10.3 (3.8-10.6) k/uL RBC 4.18 L (4.30-5.90) m/uL Hgb 12.2 L (13.0-17.5) gm/dL Hct 37.7 L (39.0-53.0) % MCV 90.4 (80.0-100.0) fL MCH 29.3 (25.0-35.0) pg MCHC 32.4 (31.0-37.0) g/dL RDW 14.4 (11.5-15.5) % Plt Count 235 (150-450) k/uL MPV 7.3 Neutrophils % 81 % Lymphocytes % 10 % Monocytes % 7 % Eosinophils % 1 % Basophils % 0 % Neutrophils # 8.3 H (1.3-7.7) k/uL Lymphocytes # 1.0 (1.0-4.8) k/uL Monocytes # 0.8 (0-1.0) k/uL Eosinophils # 0.1 (0-0.7) k/uL Basophils # 0.0 (0-0.2) k/uL PT 10.9 (9.0-12.0) sec INR 1.0 (<1.2) APTT 31.5 H (22.0-30.0) sec Sodium (137-145) mmol/L Potassium (3.5-5.1) mmol/L Chloride (98-107) mmol/L Carbon Dioxide (22-30) mmol/L Anion Gap mmol/L BUN (9-20) mg/dL Creatinine (0.66-1.25) mg/dL Est GFR (CKD-EPI)AfAm (>60 ml/min/1.73 sqM) Est GFR (CKD-EPI)NonAf (>60 ml/min/1.73 sqM) Glucose (74-99) mg/dL POC Glucose (mg/dL) (70-110) mg/dL POC Glu Junior Automation Engineer ID Calcium (8.4-10.2) mg/dL Total Bilirubin (0.2-1.3) mg/dL AST (17-59) U/L ALT (4-49) U/L Alkaline Phosphatase (38-126) U/L Ammonia (<30) umol/L Creatine Kinase (55-170) U/L Troponin I (0.000-0.034) ng/mL Total Protein (6.3-8.2) g/dL Albumin (3.5-5.0) g/dL Urine Color Yellow Urine Appearance Clear (Clear) Urine pH 5.5 (5.0-8.0) Ur Specific [place] 1.036 H (1.001-1.035) Urine Protein 1+ H (Negative) Urine Glucose (UA) Negative (Negative) Urine Ketones Trace H (Negative) Urine Blood Negative (Negative) Urine Nitrite Negative (Negative) Urine Bilirubin 1+ H (Negative) Urine Urobilinogen 3.0 (<2.0) mg/dL Ur Leukocyte Esterase Small H (Negative) Urine RBC 2 (0-5) /hpf Urine WBC 2 (0-5) /hpf Ur Squamous Epith Cells <1 (0-4) /hpf Urine Bacteria Rare H (None) /hpf Hyaline Casts 16 H (0-2) /lpf Urine Mucus Rare H (None) /hpf Serum Alcohol mg/dL 09/13/21 09/13/21 09/13/21 Range/Units 14:43 14:43 15:13 WBC (3.8-10.6) k/uL RBC (4.30-5.90) m/uL Hgb (13.0-17.5) gm/dL Hct (39.0-53.0) % MCV (80.0-100.0) fL MCH (25.0-35.0) pg MCHC (31.0-37.0) g/dL RDW (11.5-15.5) % Plt Count (150-450) k/uL MPV Neutrophils % % Lymphocytes % % Monocytes % % Eosinophils % % Basophils % % Neutrophils # (1.3-7.7) k/uL Lymphocytes # (1.0-4.8) k/uL Monocytes # (0-1.0) k/uL Eosinophils # (0-0.7) k/uL Basophils # (0-0.2) k/uL PT (9.0-12.0) sec INR (<1.2) APTT (22.0-30.0) sec Sodium 143 (137-145) mmol/L Potassium 3.8 (3.5-5.1) mmol/L Chloride 102 (98-107) mmol/L Carbon Dioxide 28 (22-30) mmol/L Anion Gap 13 mmol/L BUN 25 H (9-20) mg/dL Creatinine 1.57 H (0.66-1.25) mg/dL Est GFR (CKD-EPI)AfAm 51 (>60 ml/min/1.73 sqM) Est GFR (CKD-EPI)NonAf 44 (>60 ml/min/1.73 sqM) Glucose 140 H (74-99) mg/dL POC Glucose (mg/dL) (70-110) mg/dL POC Glu Junior Automation Engineer ID Calcium 9.5 (8.4-10.2) mg/dL Total Bilirubin 0.6 (0.2-1.3) mg/dL AST 23 (17-59) U/L ALT 15 (4-49) U/L Alkaline Phosphatase 96 (38-126) U/L Ammonia <9 (<30) umol/L Creatine Kinase 67 (55-170) U/L Troponin I <0.012 (0.000-0.034) ng/mL Total Protein 6.8 (6.3-8.2) g/dL Albumin 4.2 (3.5-5.0) g/dL Urine Color Urine Appearance (Clear) Urine pH (5.0-8.0) Ur Specific [place] (1.001-1.035) Urine Protein (Negative) Urine Glucose (UA) (Negative) Urine Ketones (Negative) Urine Blood (Negative) Urine Nitrite (Negative) Urine Bilirubin (Negative) Urine Urobilinogen (<2.0) mg/dL Ur Leukocyte Esterase (Negative) Urine RBC (0-5) /hpf Urine WBC (0-5) /hpf Ur Squamous Epith Cells (0-4) /hpf Urine Bacteria (None) /hpf Hyaline Casts (0-2) /lpf Urine Mucus (None) /hpf Serum Alcohol <10 mg/dL 09/13/ Range/Units 16:04 WBC (3.8-10.6) k/uL RBC (4.30-5.90) m/uL Hgb (13.0-17.5) gm/dL Hct (39.0-53.0) % MCV (80.0-100.0) fL MCH (25.0-35.0) pg MCHC (31.0-37.0) g/dL RDW (11.5-15.5) % Plt Count (150-450) k/uL MPV Neutrophils % % Lymphocytes % % Monocytes % % Eosinophils % % Basophils % % Neutrophils # (1.3-7.7) k/uL Lymphocytes # (1.0-4.8) k/uL Monocytes # (0-1.0) k/uL Eosinophils # (0-0.7) k/uL Basophils # (0-0.2) k/uL PT (9.0-12.0) sec INR (<1.2) APTT (22.0-30.0) sec Sodium (137-145) mmol/L Potassium (3.5-5.1) mmol/L Chloride (98-107) mmol/L Carbon Dioxide (22-30) mmol/L Anion Gap mmol/L BUN (9-20) mg/dL Creatinine (0.66-1.25) mg/dL Est GFR (CKD-EPI)AfAm (>60 ml/min/1.73 sqM) Est GFR (CKD-EPI)NonAf (>60 ml/min/1.73 sqM) Glucose (74-99) mg/dL POC Glucose (mg/dL) 123 H (70-110) mg/dL POC Glu Junior Automation Engineer ID Hari Shirley Calcium (8.4-10.2) mg/dL Total Bilirubin (0.2-1.3) mg/dL AST (17-59) U/L ALT (4-49) U/L Alkaline Phosphatase (38-126) U/L Ammonia (<30) umol/L Creatine Kinase (55-170) U/L Troponin I (0.000-0.034) ng/mL Total Protein (6.3-8.2) g/dL Albumin (3.5-5.0) g/dL Urine Color Urine Appearance (Clear) Urine pH (5.0-8.0) Ur Specific [place] (1.001-1.035) Urine Protein (Negative) Urine Glucose (UA) (Negative) Urine Ketones (Negative) Urine Blood (Negative) Urine Nitrite (Negative) Urine Bilirubin (Negative) Urine Urobilinogen (<2.0) mg/dL Ur Leukocyte Esterase (Negative) Urine RBC (0-5) /hpf Urine WBC (0-5) /hpf Ur Squamous Epith Cells (0-4) /hpf Urine Bacteria (None) /hpf Hyaline Casts (0-2) /lpf Urine Mucus (None) /hpf Serum Alcohol mg/dL Disposition Clinical Impression: Syncope, Altered mental status Disposition: ADMITTED IP TO THIS HOSP Condition: Fair Referrals: Damon Rodriguez MD [Primary Care Provider] - 1-2 days
[2021-09-13] MEDS ORDERED: LORazepam 2 MG/ML INJ IV PRN (17:01)
[2021-09-13] MEDS ORDERED: TEMAZEPAM 15 MG CAP PO PRN (17:01)
[2021-09-13] MEDS ORDERED: ONDANSETRON 4 MG/2 ML VIAL IVP PRN (17:01)
[2021-09-13] MEDS ORDERED: MAG HYDROX/AL HYDROX/SIMETH 30 ML CUP PO PRN (17:01)
[2021-09-13] MEDS ORDERED: NALOXONE 0.4 MG/ML 1 ML VIAL IV PRN (17:01)
[2021-09-13] MEDS ORDERED: SENNOSIDES-DOCUSATE SODIUM 1 EACH TAB PO PRN (17:03)
[2021-09-13 17:06] LABS: Amphetamine Screen,Urine Not Detected (NotDetected); Barbiturate Screen,Urine Not Detected (NotDetected); Benzodiazepines Screen,Urine Detected (NotDetected); Cocaine Screen,Urine Not Detected (NotDetected); Methadone Screen, Urine Not Detected (NotDetected); Opiate Screen,Urine Not Detected (NotDetected); Oxycodone Screen, Urine Not Detected (NotDetected); Phencyclidine Screen,Urine Not Detected (NotDetected); Tricyclic Antidepressant,Urine Detected (NotDetected); Urn Cannabinoid Scrn Not Detected (NotDetected)
--- NOTE | 2021-09-13 19:14 | HP ---
HISTORY AND PHYSICAL CHIEF COMPLAINT: Change in mental status and syncope. HISTORY OF PRESENT ILLNESS: This 71-year-old gentleman with a past medical history of diabetes mellitus, history of GERD, hypertension, hyperlipidemia, DJD, being followed by Dr. Damon Rodriguez in the outpatient setting, was recently admitted by Orthopedic Surgery for L4 to S1 stabilization with L5 biopsy. The patient apparently was found lying outside the house by neighbors and the patient was taken to [facility]. Patient was confused. There is no history of any other trauma. A detailed history could not be taken from the patient. The patient is in and out of Most of the history is taken from my discussion with staff and review of the chart and discussion with the ER physician at this time. Basic labs are reviewed. PAST MEDICAL HISTORY: Reviewed. It includes diabetes mellitus, GERD, recent back surgery. MEDICATIONS: Home medications are reviewed and include Maalox, Norvasc. Doses and the rest of the medications are noted. ALLERGIES: Reviewed. THEY INCLUDE CEPHALOSPORINS. Family history, social history, review of systems could not be taken because of the patient's change in mental status. PHYSICAL EXAMINATION: Arousable but confused. Pulse 71, blood pressure 104/59, respiration 18. HEENT: Conjunctivae normal. Oral mucosa moist. NECK: No jugular venous distention. CARDIOVASCULAR: S1, S2 muffled. RESPIRATION: Breath sounds diminished at the bases. A few scattered rhonchi and crackles. ABDOMEN: Soft, obese. LEGS: No edema. No swelling. NERVOUS SYSTEM: Diffusely weak. SKIN: No ulcer, rash, bleeding. JOINTS: No active deforming arthropathy. LABS: Reviewed. WBC 10, hemoglobin 12.2. Other labs are reviewed. ASSESSMENT: 1. Change in mental status and syncope for evaluation. 2. History of recent lumbar surgery. 3. Atrial fibrillation. 4. Diabetes mellitus. 5. Hyperlipidemia. 6. Hypertension. 7. History of degenerative joint disease. RECOMMENDATIONS AND DISCUSSION: In this 71-year-old gentleman who presented with multiple complex medical issues, we will monitor the patient closely, continue the current medications, continue symptomatic treatment. A definite cause for the change in mental status is uncertain at this time. I would recommend a neurology consultation and also consult Orthopedic Surgery because of the recent surgery. Other than that, I would recommend resuming the home medications. Avoid sedatives. The creatinine is 1.57. Recommend gentle hydration. Prognosis is guarded because of multiple complex medical issues. Further recommendations to follow. MMODL / IJN: [id number] / [id number]
[2021-09-13 21:05] LABS: Glucose,Whole Blood 108 mg/dL (70-110)
[2021-09-13] MEDS: DULoxetine HCL 60 MG CAPSULE.DR PO SCH (23:03)
[2021-09-13] MEDS: GABAPENTIN 300 MG CAP PO SCH (23:03)
[2021-09-13] MEDS: ATORVASTATIN 40 MG TAB PO SCH (23:03)
[2021-09-14] MEDS ORDERED: KETOROLAC 15 MG/ML 1 ML VIAL IVP STA (02:24)
[2021-09-14] MEDS: ACETAMINOPHEN TAB 325 MG TAB PO PRN ×2 (02:34→14:31)
[2021-09-14] MEDS: SUCRALFATE 1 GM TAB PO SCH (08:01)
[2021-09-14] MEDS: ASPIRIN 81 MG PO SCH (08:02)
[2021-09-14] MEDS: BACLOFEN 10 MG TAB PO PRN ×2 (08:02→20:03)
[2021-09-14] MEDS: lisinopriL 20 MG TAB PO SCH (08:02)
[2021-09-14] MEDS: PANTOPRAZOLE 40 MG TABLET PO SCH (08:02)
[2021-09-14] MEDS: CYANOCOBALAMIN 500 MCG TAB PO SCH (08:02)
[2021-09-14] MEDS: DULoxetine HCL 60 MG CAPSULE.DR PO SCH ×2 (08:02→20:03)
[2021-09-14] MEDS: FOLIC ACID 1 MG TAB PO SCH (08:03)
[2021-09-14] MEDS: GABAPENTIN 300 MG CAP PO SCH ×3 (08:03→21:00)
[2021-09-14] MEDS: THIAMINE 100 MG TAB PO SCH (08:03)
[2021-09-14] MEDS: MAGNESIUM OXIDE 400 MG TAB PO SCH (08:03)
[2021-09-14] MEDS: MULTIVITAMINS, THERA 1 EACH TAB PO SCH (08:03)
[2021-09-14] MEDS: amLODIPine 10 MG TAB PO SCH (08:03)
[2021-09-14] MEDS: CLOPIDOGREL 75 MG TAB PO SCH (08:03)
[2021-09-14] MEDS: TAMSULOSIN 0.4 MG CAP.ER.24H PO SCH (08:03)
[2021-09-14] MEDS: PYRIDOXINE 50 MG TAB PO SCH (08:04)
[2021-09-14] MEDS: FLUDROCORTISONE 0.1 MG TAB PO SCH (08:04)
[2021-09-14] MEDS: METOPROLOL SUCCINATE (ER) 100 MG TAB.ER.24H PO SCH (08:04)
--- NOTE | 2021-09-14 08:46 | P.CNNES ---
History of Present Illness Consult date: 09/14/21 Requesting physician: Faviola Moses Reason for Consult: altered mental status History of Present Illness: This is a 71-year-old gentleman with history of repeated episodes of confusion and had extensive workup and was negative, diabetes, benign positional vertigo status post decompression in the right occipital, chronic recurrent vertigo, chronic headache, recurrent falls, proximal atrial fibrillation not on anticoagulation due to recurrent falls but is on dual antiplatelets, hypertension who presented to the emergency department on 09/13/2021 for a syncopal episode. Patient is known to our neurology team and he presents our facility multiple times for confusion and has extensive testing which was negative. It seems that patient was found lying on the line in front of his house and was altered according to the ED team he was able to follow some commands but could not provide further details of what happened upon presenting to our facility. Patient is on numerous home medications. Patient could not tell me what happened but stated that he fell and hit his head and as a result is a having pain over the right side of lower extremity and requesting pain medication. Some consisted of gabapentin 300 mg 1 tablet 3 times a day, Cymbalta 60 mg 1 tablet twice a day, Flexeril 10 mg 1 tablet 3 times a day, baclofen 20 mg 1 tablet twice a day when necessary, Flomax, fentanyl patch, oxycodone, meloxicam, Fioricet. Yesterday, the night nurse notified me about the patient and stated that his son wanted 24 hour neurology service care. I notified the nurse yesterday to go ahead with transfer since has confusion and recommend intermediate project manager EEG to rule out seizure or epileptiform discharge. I spoke with the son and stated the patient has not been seen by neurology team as outpatient yet since pending to be seen by [facility]. He is getting his back pain looked into first according to son. As stated earlier patient the presents our facility multiple times in the past for confusion and had extensive testing in our facility in which he had 2.5 hour EEG on 05/30/2021 which was reported as normal area and he also had MRI of the brain last. on 07/07/2021 and it's reported as appearing postsurgical changes with craniotomy defect in the lateral right side posterior fossa and encephalomalacia in the right lateral cerebellar hemisphere. And it appears not significantly different than old exam. No acute intracranial abnormality. I personally saw the patient last on 07/07/2021 and recommended an epilepsy monitoring unit for 1-2 weeks since he has episodes of recurrent altered mental status to rule out any seizure or epileptiform discharges. He was also recommended to follow-up with ENT and he stated last time. He was in the process of following up with [facility] for his vertigo. Some of the workup in our facility consisted of: Initial vital signs is blood pressure of 104/59, heart rate 71, respiratory of 18, temperature of 98.6 Fahrenheit oral and pulse ox of 95% room air. White blood cell is 10.3. Creatinine is 1.57 and the BUN is 25 otherwise rest is unremarkable. Ammonia level is less than 9. Urinalysis is leukocyte esterase small, bacteria was rare. Urine drug screen is positive for tricyclic as well as benzoyl. The serum alcohol was less than 10. CT of the head is reported as no acute intracranial abnormality of gross a space-occupying lesion by this nonenhanced computed tomography scan. Review of Systems Review of system: The 12 point system was reviewed and apparent positive and negative per HPI. Past Medical History Past Medical History: Atrial Fibrillation, Diabetes Mellitus, GERD/Reflux, Hyperlipidemia, Hypertension, Osteoarthritis (OA), Pneumonia, Prostate Disorder Additional Past Medical History / Comment(s): Pt recently admitted to [facility] on 06/03/21 with fall/possible TIA. Other hx: FALLS, falls with fractuers, vertigo, surgeries for compressed brain stem at [facility], diet controlled diabetes/neuropathy bilateral feet and occasionally in both hands fingertips, bilateral mastectomies d/t benign tumors, chronic low back pain, chronic headaches, BPH, ulcerative colitis, benign colon polyps History of Any Multi-Drug Resistant Organisms: MRSA Date of last positivie culture/infection: MRSA-03/11 MDRO Source:: Source unknown-MRSA Past Surgical History: Back Surgery, Breast Surgery, Orthopedic Surgery Additional Past Surgical History / Comment(s): Bilateral mastectomy with right sided lymp node removal, R knee cap removed d/t fracture, Back surgery for herniated disc, brain stem surgeries for decompression-for dizziness and a surgery for spinal fluid leakage, right ankle ORIF, bilateral wrist fractures SX Past Anesthesia/Blood Transfusion Reactions: No Reported Reaction Past Psychological History: No Psychological Hx Reported Additional Psychological History / Comment(s): Pt resides in an apartment alone. He uses a walker to get around in his bathroom but otherwise is mostly in a wheelchair. He does not drive. He has friends that take him places. He has VNA. He has a cleaning lady. He makes microwavable meals. Smoking Status: Former smoker Past Alcohol Use History: None Reported Additional Past Alcohol Use History / Comment(s): STARTED SMOKING AT AGE 18, SMOKE A PIPE GOES THRU A PACK OF PIPE TOBACCO/DAY quit smoking in 2005 Past Drug Use History: None Reported - Past Family History Father History Unknown: Yes Family Medical History: Congestive Heart Failure (CHF) Additional Family Medical History / Comment(s): at 68. Mother History Unknown: Yes Family Medical History: Hypertension Additional Family Medical History / Comment(s): Pulmonary hypertension. at 78. Medications and Allergies Home Medications Medication Instructions Recorded Confirmed Type Atorvastatin [Lipitor] 40 mg PO HS 06/18/20 09/13/21 History Folic Acid 1 mg PO DAILY@1200 #30 tab 12/23/20 09/13/21 Rx Thiamine [Vitamin B-1] 100 mg PO DAILY@1200 #30 tab 12/23/20 09/13/21 Rx Multivitamins, Thera [Multivitamin 1 tab PO DAILY@1200 01/09/21 09/13/21 History (formulary)] Triamcinolone 0.1% Ointment 1 applic TOPICAL BID 01/09/21 09/13/21 History [Kenalog 0.1% Ointment] Pyridoxine [Vitamin B-6] 50 mg PO DAILY #30 tab 01/12/21 09/13/21 Rx Cyanocobalamin [Vitamin B-12] 1,000 mcg PO DAILY #30 tab 03/03/21 09/13/21 Rx Calcium Carbonate [Tums] 1,500 mg PO DAILY 04/21/21 09/13/21 History Clopidogrel [Plavix] 75 mg PO DAILY #30 tab 04/26/21 09/13/21 Rx lisinopriL [Zestril] 20 mg PO DAILY #30 tab 04/26/21 09/13/21 Rx Magnesium Oxide [Mag-Ox] 1,200 mg PO DAILY 05/05/21 09/13/21 History Pantoprazole Sodium [Protonix] 80 mg PO DAILY 05/05/21 09/13/21 History Sucralfate [Carafate] 3 gm PO DAILY 05/05/21 09/13/21 History Fludrocortisone [Florinef] 0.2 mg PO DAILY #30 tablet 05/11/21 09/13/21 Rx Tamsulosin [Flomax] 0.4 mg PO DAILY 30 Days #30 cap 05/11/21 09/13/21 Rx Aspirin EC [Ecotrin Low Dose] 81 mg PO DAILY 05/28/21 09/13/21 History Famotidine [Pepcid] 20 mg PO BID 30 Days #60 tab 06/06/21 09/13/21 Rx Baclofen [Lioresal] 20 mg PO BID PRN 08/18/21 09/13/21 History Butalb/Acetaminophen/Caffeine 1 cap PO TID PRN 08/18/21 09/13/21 History [Fioricet 50-300-40 mg Capsule] DULoxetine HCL [Cymbalta] 60 mg PO BID 08/18/21 09/13/21 History Lidocaine 5% Patch [Lidoderm 5% 1 patch TOPICAL DAILY PRN 08/18/21 09/13/21 History Patch] Cyclobenzaprine [Flexeril] 10 mg PO TID #90 tab 08/26/21 09/13/21 Rx Gabapentin 300 mg PO TID #90 cap 08/26/21 09/13/21 Rx Sennosides/Docusate Sodium [Senna 1 each PO DAILY PRN #20 tablet 08/26/21 09/13/21 Rx Plus 8.6-50 mg Tablet] oxyCODONE-APAP 5-325MG [Percocet 1 tab PO Q4HR PRN #56 tab 08/26/21 09/13/21 Rx 5-325 mg] Acetaminophen Tab [Tylenol] 650 mg PO Q6HR PRN tab 08/29/21 09/13/21 Rx Metoprolol Succinate (ER) [Toprol 100 mg PO DAILY tab 08/29/21 09/13/21 Rx XL] amLODIPine [Norvasc] 10 mg PO DAILY tab 08/29/21 09/13/21 Rx Meloxicam [Mobic] 15 mg PO DAILY 09/13/21 09/13/21 History fentaNYL 25MCG/HR PATCH [Duragesic 1 patch TRANSDERM Q72H 09/13/21 09/13/21 History 25MCG/HR] Allergies Allergy/AdvReac Type Severity Reaction Status Date / Time cephalexin monohydrate Allergy Anaphylaxis Verified 09/13/21 18:25 [From Keflex] Cephalosporins Allergy Anaphylaxis Verified 09/13/21 18:25 Penicillins Allergy Anaphylaxis Verified 09/13/21 18:25 Physical Examination - Vital Signs Vital Signs: Vital Signs Temp Pulse Pulse Resp BP BP Pulse Ox 09/14/21 05:00 97.6 F 68 16 135/77 95 09/13/21 20:13 98.1 F 64 20 141/67 98 09/13/21 20:01 94 L 09/13/21 18:25 98.4 F 71 18 132/72 95 09/13/21 17:43 66 18 145/81 98 09/13/21 14:20 98.6 F 71 18 104/59 95 FiO2 09/14/21 05:00 09/13/21 20:13 09/13/21 20:01 21 09/13/21 18:25 09/13/21 17:43 09/13/21 14:20 Intake and Output 09/13/21 09/14/21 09/14/21 22:59 06:59 14:59 Output Total 800 Balance -800 Output: Urine 800 Other: Voiding Method Indwelling Catheter Weight 128.5 kg GENERAL: The patient is lying in bed and is in mild acute distress. HENT: Small bruise over the left frontal region. CHEST: The heart rate is regular rate rhythm. No murmurs to auscultation. LUNG: Clear to auscultation bilaterally no wheezing noted throughout. Not labored breathing. ABDOMEN/GI: Bowel sounds present in all 4 quadrants. No tenderness to palpation throughout. NEUROLOGICAL: Higher mental function: The patient is awake, alert, oriented to self. He stated the year is 1950 but stated no it is 2019 and stated the month is July. He stated he was at [facility]. He is able to name objects correctly but slow in responding (watch and cup). Patient is following simple c ommands but at time needs direction. No aphasia and no neglect. Cranial nerves: The pupils are round, equal and reactive to light and accommodation. Visual bishop are full to confrontation throughout. Extraocular movement is intact no nystagmus is noted. Facial sensation is normal to touch throughout. The facial strength is normal throughout. Hearing is mildly decreased bilaterally to hand rub. Tongue is midline and moved [id number] without any difficulty. No dysarthria is noted. Shoulder shrug is normal bilaterally. Motor: The strength is 5 over 5 throughout uppers but limited in lowers because of pain but had antigravity. Normal tone and bulk. Cerebellum: Normal finger to nose bilaterally. Sensation: Sensation is normal to touch throughout. Reflexes (right/left): 1+ throughout. Plantars are mute bilaterally. Results - Laboratory Findings CBC and BMP: 09/13/21 14:43 09/13/21 14:43 Abnormal Lab Findings: Abnormal Labs 09/13/21 09/13/21 09/13/21 14:43 14:43 14:43 RBC 4.18 L Hgb 12.2 L Hct 37.7 L Neutrophils # 8.3 H APTT 31.5 H BUN Creatinine Glucose POC Glucose (mg/dL) Ur Specific [place] 1.036 H Urine Protein 1+ H Urine Ketones Trace H Urine Bilirubin 1+ H Ur Leukocyte Esterase Small H Urine Bacteria Rare H Hyaline Casts 16 H Urine Mucus Rare H U Tricyclic Antidepress Detected H U Benzodiazepines Scrn Detected H 09/13/21 09/13/21 14:43 16:04 RBC Hgb Hct Neutrophils # APTT BUN 25 H Creatinine 1.57 H Glucose 140 H POC Glucose (mg/dL) 123 H Ur Specific [place] Urine Protein Urine Ketones Urine Bilirubin Ur Leukocyte Esterase Urine Bacteria Hyaline Casts Urine Mucus U Tricyclic Antidepress U Benzodiazepines Scrn Assessment and Plan Assessment: Encephalopathy of unknown etiology. Patient presents to our facility multiple times for repeated transient confusion and had extensive work-up (MRI Brain, 2.5 hour EEG and negative). Rule out any subclinical seizure vs in addition confusion due to polypharmacy. Benign positional vertigo status post decompression in the right occipital Recurrent falls Recurrent vertigo Diabetes Chronic headache Paroxysmal atrial fibrillation not on anticoagulation due to recurrent falls but is on dual antiplatelets History of hypertension Plan: In the past from I recommended an epilepsy monitoring unit for 1-2 weeks but since the patient continues to do presented to our facility for the same issue I recommend local patient to be transferred for long-term EEG. I feel the patient is on numerous medication and feel patient is polypharmacy recommend the patient to come down gabapentin from throughout her mid gram one tablet 3 times a day to twice a day. Try to limit sedation/opiates as much as possible Every 4 hours neuro checks Recommend patient to follow-up with his neurologist for further workup as an outpatient since she presents for the same issue We'll defer the rest of medical management to the primary team. The plan discussed with the patient's nurse and the primary team in length. I also spoke with patient's son (Yakov) and agreement with transfer. Per son, patient is pending to be seen by [facility] Neurology team as outpatient. In mean time after discharge, notified for patient to be seen by local neurologist if not able to be seen by local neurologist. Thank you for the consultation. Kareem Linder M.D. Neuro-hospitalist Time with Patient: Greater than 30
[2021-09-14 09:16] LABS: Basophils # (A) 0.03 X 10*3/uL (0.00-0.10); Basophils % (A) 0.3 %; Eosinophils # (A) 0.16 X 10*3/uL (0.04-0.35); Eosinophils % (A) 1.7 %; HCT 36.8 % (39.6-50.0); HGB 11.6 g/dL (13.0-17.0); Immature Grans, Automated 0.3 %; Lymphocytes # (A) 1.73 X 10*3/uL (0.90-5.00); Lymphocytes % (A) 18.8 %; MCHC 31.5 g/dL (32.0-37.0); MCV 88.7 fL (80.0-97.0); Mean Platelet Volume 10.3 fL (9.5-12.2); Monocytes # (A) 0.84 X 10*3/uL (0.20-1.00); Monocytes % (A) 9.2 %; NRBC Per 100 WBC 0 /100 WBCS (0.0-0.0); Neutrophils # (A) 6.39 X 10*3/uL (1.80-7.70); Neutrophils % (A) 69.7 %; Platelet Count 210 X 10*3/uL (140-440); RBC 4.15 X 10*6/uL (4.40-5.60); RDW 14.4 % (11.5-14.5); WBC 9.18 X 10*3/uL (4.50-10.00)
[2021-09-14 10:05] LABS: African American GFR (CKD) 77.9 (60.0-200.0); Albumin 3.9 g/dL (3.8-4.9); Albumin/Globulin Ratio 1.86 (1.60-3.17); Anion Gap 11.9 mmol/L (10.00-18.00); BUN/Creat Ratio 13.36 Ratio (12.00-20.00); Blood Urea Nitrogen 14.7 mg/dL (9.0-27.0); Calcium 9.2 mg/dL (8.7-10.3); Carbon Dioxide 27.1 mmol/L (20.0-27.5); Globulin 2.1 g/dL (1.6-3.3); Non-African American GFR(CKD) 67.2 (60.0-200.0); Potassium 3.6 mmol/L (3.5-5.5); Total Bilirubin 0.6 mg/dL (0.30-1.20)
[2021-09-14] MEDS: LORazepam 0.5 MG TAB PO PRN ×2 (14:31→21:00)
--- NOTE | 2021-09-14 15:52 | P.PN ---
Subjective Progress Note Date: 09/14/21 This is a 71-year-old male who was recently admitted with altered mental status and found lying outside of the house by neighbors and brought here by EMS. Patient does follow with Dr. Rodriguez in the outpatient setting and is being followed by neurology. Patient's mentation is improved today and back to baseline and neurology evaluated the patient recommended transfer to tertiary [facility] for continuous EEG monitoring that is not provided here. Patient currently denies chest pain or shortness of breath. Patient is afebrile. Recommend repeat labs in the morning. Case management also following and initiated possible transfer to tertiary [facility] [address] for continuous EEG and neurology evaluation although there is a long wait list at this time as the hospital is full. Recommend PT/OT therapy. Review of systems: Constitutional: No reports of fatigue, fever, or chills Cardiovascular: No reports of chest pain or palpitations Respiratory: No reports of shortness of breath or cough GI: reports of nausea, no reports of of vomiting, no reports of diarrhea : No reports of dysuria or retention Neurovascular: reports of generalized weakness All medications have been reviewed PHActive Medications Acetaminophen (Acetaminophen Tab 325 Mg Tab) 650 mg PO Q4HR PRN PRN Reason: Fever and/ or Pain Last Admin: 09/14/21 14:31 Dose: 650 mg Al Hydroxide/Mg Hydroxide (Mag Hydrox/Al Hydrox/Simeth 30 Ml Cup) 15 ml PO Q6HR PRN PRN Reason: Indigestion Amlodipine Besylate (Amlodipine 10 Mg Tab) 10 mg PO DAILY [facility] Last Admin: 09/14/21 08:03 Dose: 10 mg Aspirin (Aspirin 81 Mg) 81 mg PO DAILY [facility] Last Admin: 09/14/21 08:02 Dose: 81 mg Atorvastatin Calcium (Atorvastatin 40 Mg Tab) 40 mg PO HS [facility] Last Admin: 09/13/21 23:03 Dose: 40 mg Baclofen (Baclofen 10 Mg Tab) 20 mg PO BID PRN PRN Reason: Muscle Pain Last Admin: 09/14/21 08:02 Dose: 20 mg Clopidogrel Bisulfate (Clopidogrel 75 Mg Tab) 75 mg PO DAILY [facility] Last Admin: 09/14/21 08:03 Dose: 75 mg Cyanocobalamin (Cyanocobalamin 500 Mcg Tab) 1,000 mcg PO DAILY [facility] Last Admin: 09/14/21 08:02 Dose: 1,000 mcg Duloxetine HCl (Duloxetine Hcl 60 Mg Capsule.) 60 mg PO BID [facility] Last Admin: 09/14/21 08:02 Dose: 60 mg Fludrocortisone Acetate (Fludrocortisone 0.1 Mg Tab) 0.2 mg PO DAILY [facility] Last Admin: 09/14/21 08:04 Dose: 0.2 mg Folic Acid (Folic Acid 1 Mg Tab) 1 mg PO DAILY@1200 [facility] Last Admin: 09/14/21 08:03 Dose: 1 mg Gabapentin (Gabapentin 300 Mg Cap) 300 mg PO TID [facility] Last Admin: 09/14/21 15:44 Dose: 300 mg Lisinopril (Lisinopril 20 Mg Tab) 20 mg PO DAILY [facility] Last Admin: 09/14/21 08:02 Dose: 20 mg Lorazepam (Lorazepam 0.5 Mg Tab) 0.5 mg PO Q6HR PRN PRN Reason: Anxiety Last Admin: 09/14/21 14:31 Dose: 0.5 mg Magnesium Oxide (Magnesium Oxide 400 Mg Tab) 1,200 mg PO DAILY [facility] Last Admin: 09/14/21 08:03 Dose: 1,200 mg Metoprolol Succinate (Metoprolol Succinate (Er) 100 Mg Tab.Er.24h) 100 mg PO DAILY [facility] Last Admin: 09/14/21 08:04 Dose: 100 mg Multivitamins (Multivitamins, Thera 1 Each Tab) 1 each PO DAILY@1200 [facility] Last Admin: 09/14/21 08:03 Dose: 1 each Naloxone HCl (Naloxone 0.4 Mg/Ml 1 Ml Vial) 0.2 mg IV Q2M PRN PRN Reason: Opioid Reversal Ondansetron HCl (Ondansetron 4 Mg/2 Ml Vial) 4 mg IVP Q8HR PRN PRN Reason: Nausea And Vomiting Pantoprazole Sodium (Pantoprazole 40 Mg Tablet) 80 mg PO DAILY [facility] Last Admin: 09/14/21 08:02 Dose: 80 mg Pyridoxine HCl (Pyridoxine 50 Mg Tab) 50 mg PO DAILY [facility] Last Admin: 09/14/21 08:04 Dose: 50 mg Senna/Docusate Sodium (Sennosides-Docusate Sodium 1 Each Tab) 1 each PO DAILY PRN PRN Reason: Constipation Sucralfate (Sucralfate 1 Gm Tab) 3 gm PO DAILY [facility] Last Admin: 09/14/21 08:01 Dose: 3 gm Tamsulosin HCl (Tamsulosin 0.4 Mg Cap.Er.24h) 0.4 mg PO DAILY [facility] Last Admin: 09/14/21 08:03 Dose: 0.4 mg Temazepam (Temazepam 15 Mg Cap) 15 mg PO HS PRN PRN Reason: Insomnia Thiamine HCl (Thiamine 100 Mg Tab) 100 mg PO DAILY@1200 [facility] Last Admin: 09/14/21 08:03 Dose: 100 mg YSICAL EXAMINATION: GENERAL: The patient is alert and oriented x3, Well developed, well nourished. HEENT: Pupils are round and equally reacting to light. EOMI. no scleral icterus. No conjunctival pallor. Normocephalic, atraumatic. No pharyngeal erythema. No thyromegaly. CARDIOVASCULAR: S1 and S2 muffled PULMONARY: diminished breath sounds bilaterally with no wheezing or rhonchi noted. ABDOMEN: soft. Nontender on exam. obese. non-distended, normoactive bowel sounds. No palpable organomegaly. MUSCULOSKELETAL: No joint swelling or deformity. EXTREMITIES: No cyanosis, clubbing, or pedal edema. NEUROLOGICAL: Gross neurological examination did not reveal any focal deficits. Diffuse weakness SKIN: No rashes. Assessment: Change in mental status and syncope for evaluation History of recent lumbar surgery Atrial fibrillation history Diabetes mellitus Hyperlipidemia Hypertension history of degenerative joint disease Polypharmacy GI prophylaxis DVT prophylaxis Full code Plan: Recommend to continue with current medications and managwith neurology following. Patient was evaluated and underwent CT of the brain showing no acute intracranial abnormality or gross space-occupying lesion with unremarkable sella and CP angles with brain volume loss changes likely age-related and stable postsurgical changes on the right side of the posterior cranial fossa. Neurology has discussed with the patient along with family members on on other admissions regarding continuous EEG monitoring as patient has had multiple readmissions for altered mental status and has yet to follow-up in the outpatient setting with neurology as he was addressing his chronic back pains and having back surgery. Patient did have prolonged EEG of 2-1/2 hours which was normal and MRI of the brain was normal as well. Patient is to follow-[facility] at the [facility] for his continued vertigo. On exam today patient's mentation is improved and requesting more pain medications. Will continue current regimen and continue to monitor the patient closely. Initiation of veronica [facility] process to [facility] for continuous EEG monitoring with neurosurgery was initiated and Dr. Kovacs has accepted the patient although was also informed there is a long wait list that may take possibly days for the patient to transfer and this was discussed with the son as well. Due to multiple complex medical issues, prognosis is guarded. Will have physical therapy evaluate and work with the patient daily here. Recommend limiting narcotic use and continue to follow with neurology. Will follow up with repeat labs in the morning. Again prognosis is guarded. The impression and plan of care has been dictated by Adelina Scales, nurse practitioner as directed. MD Donn I have performed a history and examination and MDM of this patient, discussed the same with the dictator, and agree with the dictator's assessment and plan as written ,documented as a scribe. Based on total visit time, I have performed more than 50% of the visit. Any additional findings or plans will be noted. Objective - Vital Signs Vital signs: Vital Signs Temp 97.6 F 09/14/21 05:00 Pulse 68 09/14/21 05:00 Resp 16 09/14/21 05:00 BP 135/77 09/14/21 05:00 Pulse Ox 95 09/14/21 05:00 FiO2 21 09/13/21 20:01 Intake & Output 09/13/21 09/14/21 09/14/21 18:59 06:59 18:59 Output Total 800 Balance -800 Weight 127.006 kg 128.5 kg Output: Urine 800 Other: Voiding Method Indwelling Catheter - Labs CBC & Chem 7: 09/14/21 06:17 09/14/21 06:17 Labs: Abnormal Lab Results - Last 24 Hours (Table) 09/13/21 09/13/21 09/13/21 Range/Units 14:43 14:43 14:43 RBC 4.18 L (4.30-5.90) m/uL Hgb 12.2 L (13.0-17.5) gm/dL Hct 37.7 L (39.0-53.0) % MCHC (32.0-37.0) g/dL Neutrophils # 8.3 H (1.3-7.7) k/uL APTT 31.5 H (22.0-30.0) sec BUN (9-20) mg/dL Creatinine (0.66-1.25) mg/dL Glucose (74-99) mg/dL POC Glucose (mg/dL) (70-110) mg/dL Total Protein (6.2-8.2) g/dL Ur Specific [place] 1.036 H (1.001-1.035) Urine Protein 1+ H (Negative) Urine Ketones Trace H (Negative) Urine Bilirubin 1+ H (Negative) Ur Leukocyte Esterase Small H (Negative) Urine Bacteria Rare H (None) /hpf Hyaline Casts 16 H (0-2) /lpf Urine Mucus Rare H (None) /hpf U Tricyclic Antidepress Detected H (NotDetected) U Benzodiazepines Scrn Detected H (NotDetected) 09/13/21 09/13/21 09/14/21 Range/Units 14:43 16:04 06:17 RBC 4.15 L (4.30-5.90) m/uL Hgb 11.6 L (13.0-17.5) gm/dL Hct 36.8 L (39.0-53.0) % MCHC 31.5 L (32.0-37.0) g/dL Neutrophils # (1.3-7.7) k/uL APTT (22.0-30.0) sec BUN 25 H (9-20) mg/dL Creatinine 1.57 H (0.66-1.25) mg/dL Glucose 140 H (74-99) mg/dL POC Glucose (mg/dL) 123 H (70-110) mg/dL Total Protein (6.2-8.2) g/dL Ur Specific [place] (1.001-1.035) Urine Protein (Negative) Urine Ketones (Negative) Urine Bilirubin (Negative) Ur Leukocyte Esterase (Negative) Urine Bacteria (None) /hpf Hyaline Casts (0-2) /lpf Urine Mucus (None) /hpf U Tricyclic Antidepress (NotDetected) U Benzodiazepines Scrn (NotDetected) 09/14/21 Range/Units 06:17 RBC (4.30-5.90) m/uL Hgb (13.0-17.5) gm/dL Hct (39.0-53.0) % MCHC (32.0-37.0) g/dL Neutrophils # (1.3-7.7) k/uL APTT (22.0-30.0) sec BUN (9-20) mg/dL Creatinine (0.66-1.25) mg/dL Glucose 115 H (74-99) mg/dL POC Glucose (mg/dL) (70-110) mg/dL Total Protein 6.0 L (6.2-8.2) g/dL Ur Specific [place] (1.001-1.035) Urine Protein (Negative) Urine Ketones (Negative) Urine Bilirubin (Negative) Ur Leukocyte Esterase (Negative) Urine Bacteria (None) /hpf Hyaline Casts (0-2) /lpf Urine Mucus (None) /hpf U Tricyclic Antidepress (NotDetected) U Benzodiazepines Scrn (NotDetected)
[2021-09-14] MEDS: ATORVASTATIN 40 MG TAB PO SCH (20:03)
[2021-09-15] MEDS: LORazepam 0.5 MG TAB PO PRN ×2 (03:56→11:56)
[2021-09-15] MEDS: ACETAMINOPHEN TAB 325 MG TAB PO PRN ×2 (03:56→08:25)
[2021-09-15] MEDS: BACLOFEN 10 MG TAB PO PRN ×2 (05:56→19:12)
[2021-09-15 08:10] LABS: African American GFR (CKD) >90 (>60 ml/min/1.73 sqM); Anion Gap 8 mmol/L; Blood Urea Nitrogen 14 mg/dL (9-20); Calcium 8.7 mg/dL (8.4-10.2); Carbon Dioxide 27 mmol/L (22-30); Chloride 102 mmol/L (98-107); Glucose 108 mg/dL (74-99); Non-African American GFR(CKD) 89 (>60 ml/min/1.73 sqM); Potassium 3.5 mmol/L (3.5-5.1); Sodium 137 mmol/L (137-145)
[2021-09-15] MEDS: MAGNESIUM OXIDE 400 MG TAB PO SCH (08:22)
[2021-09-15] MEDS: THIAMINE 100 MG TAB PO SCH (08:22)
[2021-09-15] MEDS: lisinopriL 20 MG TAB PO SCH (08:23)
[2021-09-15] MEDS: CYANOCOBALAMIN 500 MCG TAB PO SCH (08:23)
[2021-09-15] MEDS: amLODIPine 10 MG TAB PO SCH (08:24)
[2021-09-15] MEDS: DULoxetine HCL 60 MG CAPSULE.DR PO SCH ×2 (08:24→20:25)
[2021-09-15] MEDS: CLOPIDOGREL 75 MG TAB PO SCH (08:25)
[2021-09-15] MEDS: GABAPENTIN 300 MG CAP PO SCH ×3 (08:25→20:25)
[2021-09-15] MEDS: PANTOPRAZOLE 40 MG TABLET PO SCH (08:26)
[2021-09-15] MEDS: ASPIRIN 81 MG PO SCH (08:26)
[2021-09-15] MEDS: SUCRALFATE 1 GM TAB PO SCH (08:27)
[2021-09-15] MEDS: FOLIC ACID 1 MG TAB PO SCH (08:27)
[2021-09-15] MEDS: PYRIDOXINE 50 MG TAB PO SCH (08:28)
[2021-09-15] MEDS: TAMSULOSIN 0.4 MG CAP.ER.24H PO SCH (08:28)
[2021-09-15] MEDS: FLUDROCORTISONE 0.1 MG TAB PO SCH (08:29)
[2021-09-15] MEDS: METOPROLOL SUCCINATE (ER) 100 MG TAB.ER.24H PO SCH (08:29)
[2021-09-15] MEDS: MULTIVITAMINS, THERA 1 EACH TAB PO SCH (08:33)
[2021-09-15] MEDS ORDERED: LIDOCAINE 5% PATCH TOPICAL PRN (12:54)
[2021-09-15] MEDS: oxyCODONE-APAP 5-325MG 1 EACH TAB PO PRN ×2 (14:29→20:25)
--- NOTE | 2021-09-15 15:32 | P.PN ---
Subjective Progress Note Date: 09/15/21 The patient is seen at bedside and feels a bit better today compared to yesterday. He is asking for pain medications over the right side from his fall at home. Pending for patient to be transferred for [facility] EEG. Objective - Vital Signs Vital signs: Vital Signs Temp 98.6 F 09/15/21 13:00 Pulse 79 09/15/21 13:00 Resp 18 09/15/21 13:00 BP 109/71 09/15/21 13:00 Pulse Ox 98 09/15/21 13:00 FiO2 21 09/15/21 07:34 Intake & Output 09/14/21 09/15/21 09/15/21 18:59 06:59 18:59 Intake Total 540 444 Output Total 2200 1200 Balance 540 -2200 -756 Weight 128.5 kg Intake: Oral 540 444 Output: Urine 2200 1200 Other: Voiding Method Indwelling Catheter Indwelling Catheter Indwelling Catheter - Exam GENERAL: The patient is lying in bed and is in mild acute distress. NEUROLOGICAL: Higher mental function: The patient is awake, alert, oriented to self, time. He initially stated he was at [facility] but then said no I am [place]. Patient is following simple commands. He seems more responsive today compared to yesterday. No aphasia and no neglect. Cranial nerves: The pupils are round, equal and reactive to light and accommodation. Visual bishop are full to confrontation throughout. Extraocular movement is intact no nystagmus is noted. Facial sensation is normal to touch throughout. The facial strength is normal throughout. Hearing is mildly decreased bilaterally to hand rub. Tongue is midline and moved [id number] without any difficulty. No dysarthria is noted. Shoulder shrug is normal bilaterally. Motor: The strength is 5 over 5 throughout uppers but limited in lowers because of pain but had antigravity. Normal tone and bulk. Cerebellum: Normal finger to nose bilaterally. Sensation: Sensation is normal to touch throughout. Reflexes (right/left): 1+ throughout. Plantars are mute bilaterally. - Labs CBC & Chem 7: 09/14/21 06:17 09/15/21 06:38 Labs: Abnormal Lab Results - Last 24 Hours (Table) 09/15/21 Range/Units 06:38 Glucose 108 H (74-99) mg/dL Microbiology - Last 24 Hours (Table) 09/13/21 15:00 Blood Culture - Preliminary Blood No Growth after 24 hours 09/13/21 14:45 Blood Culture - Preliminary Blood No Growth after 24 hours Assessment and Plan Assessment: Encephalopathy of unknown etiology. Patient presents to our facility multiple times for repeated transient confusion and had extensive work-up (MRI Brain, 2.5 hour EEG and were negative). Rule out any subclinical seizure vs in addition confusion due to polypharmacy. Benign positional vertigo status post decompression in the right occipital Recurrent falls Recurrent vertigo Diabetes Chronic headache Paroxysmal atrial fibrillation not on anticoagulation due to recurrent falls but is on dual antiplatelets History of hypertension Plan: In the past from I recommended an epilepsy monitoring unit for 1-2 weeks but since the patient continues to do presented to our facility for the same issue I recommend local patient to be transferred for long-term EEG. 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 I feel the patient is on numerous medication and feel patient is polypharmacy recommend the patient to come down gabapentin from throughout her mid gram one tablet 3 times a day to twice a day. Try to limit sedation/opiates as much as possible Every 4 hours neuro checks Consulted PT and OT. Recommend patient to follow-up with his neurologist for further workup as an outpatient since she presents for the same issue We'll defer the rest of medical management to the primary team. The plan discussed with the patient's nurse and the primary team. Per son, patient is pending to be seen by [facility] Neurology team as outpatient. In mean time after discharge, notified for patient to be seen by local neurologist if not able to be seen by local neurologist. Kareem Linder M.D. Neuro-hospitalist Time with Patient: Less than 30
[2021-09-15] MEDS: ATORVASTATIN 40 MG TAB PO SCH (20:25)
[2021-09-16] MEDS: BUTALB/APAP/CAFF 50-325-40MG TAB PO PRN ×2 (00:51→19:26)
[2021-09-16] MEDS: LORazepam 0.5 MG TAB PO PRN ×2 (00:51→20:40)
[2021-09-16] MEDS: oxyCODONE-APAP 5-325MG 1 EACH TAB PO PRN ×4 (01:48→22:09)
--- NOTE | 2021-09-16 06:05 | P.PN ---
Subjective Progress Note Date: 09/15/21 This is a 71-year-old male who was recently admitted with altered mental status and found lying outside of the house by neighbors and brought here by EMS. Patient does follow with Dr. Rodriguez in the outpatient setting and is being followed by neurology. Patient's mentation is improved today and back to baseline and neurology evaluated the patient recommended transfer to [facility] for continuous EEG monitoring that is not provided here. Patient currently denies chest pain or shortness of breath. Patient is afebrile. Recommend repeat labs in the morning. Case management also following and initiated possible transfer to [facility] for continuous EEG and neurology evaluation although there is a long wait list at this time as the hospital is full. Recommend PT/OT therapy. 09/15/2021 Patient is seen today and mentation is improved and patient is reporting severe pain 10/10. Will resume some home medications and had a lengthy discussion with the patient about limiting narcotic use and patient became more agitated. Patient denies chest pain or shortness of breath. Patient is afebrile. Patient continues to await transfer to [facility] for continuous EEG monitoring. Neurology following. No seizure like activity noted. Review of systems: Constitutional: No reports of fatigue, fever, or chills Cardiovascular: No reports of chest pain or palpitations Respiratory: No reports of shortness of breath or cough GI: reports of nausea, no reports of of vomiting, no reports of diarrhea : No reports of dysuria or retention Neurovascular: reports of generalized weakness and severe back pain All medications have been reviewed Active Medications Acetaminophen (Acetaminophen Tab 325 Mg Tab) 650 mg PO Q4HR PRN PRN Reason: Fever and/ or Pain Last Admin: 09/15/21 08:25 Dose: 650 mg Acetaminophen/Butalbital/Caffeine (Butalb/Apap/Caff 50-325-40mg Tab) 1 each PO TID PRN PRN Reason: Migraine Headache Last Admin: 09/16/21 00:51 Dose: 1 each Al Hydroxide/Mg Hydroxide (Mag Hydrox/Al Hydrox/Simeth 30 Ml Cup) 15 ml PO Q6HR PRN PRN Reason: Indigestion Amlodipine Besylate (Amlodipine 10 Mg Tab) 10 mg PO DAILY [facility] Last Admin: 09/15/21 08:24 Dose: 10 mg Aspirin (Aspirin 81 Mg) 81 mg PO DAILY [facility] Last Admin: 09/15/21 08:26 Dose: 81 mg Atorvastatin Calcium (Atorvastatin 40 Mg Tab) 40 mg PO HS [facility] Last Admin: 09/15/21 20:25 Dose: 40 mg Baclofen (Baclofen 10 Mg Tab) 20 mg PO BID PRN PRN Reason: Muscle Pain Last Admin: 09/15/21 19:12 Dose: 20 mg Clopidogrel Bisulfate (Clopidogrel 75 Mg Tab) 75 mg PO DAILY [facility] Last Admin: 09/15/21 08:25 Dose: 75 mg Cyanocobalamin (Cyanocobalamin 500 Mcg Tab) 1,000 mcg PO DAILY [facility] Last Admin: 09/15/21 08:23 Dose: 1,000 mcg Duloxetine HCl (Duloxetine Hcl 60 Mg Capsule.Dr) 60 mg PO BID [facility] Last Admin: 09/15/21 20:25 Dose: 60 mg Fludrocortisone Acetate (Fludrocortisone 0.1 Mg Tab) 0.2 mg PO DAILY [facility] Last Admin: 09/15/21 08:29 Dose: 0.2 mg Folic Acid (Folic Acid 1 Mg Tab) 1 mg PO DAILY@1200 [facility] Last Admin: 09/15/21 08:27 Dose: 1 mg Gabapentin (Gabapentin 300 Mg Cap) 300 mg PO TID [facility] Last Admin: 09/15/21 20:25 Dose: 300 mg Lidocaine (Lidocaine 5% Patch) 1 patch TOPICAL DAILY PRN; Protocol PRN Reason: Pain Lisinopril (Lisinopril 20 Mg Tab) 20 mg PO DAILY [facility] Last Admin: 09/15/21 08:23 Dose: 20 mg Lorazepam (Lorazepam 0.5 Mg Tab) 0.5 mg PO Q6HR PRN PRN Reason: Anxiety Last Admin: 09/16/21 00:51 Dose: 0.5 mg Magnesium Oxide (Magnesium Oxide 400 Mg Tab) 1,200 mg PO DAILY [facility] Last Admin: 09/15/21 08:22 Dose: 1,200 mg Metoprolol Succinate (Metoprolol Succinate (Er) 100 Mg Tab.Er.24h) 100 mg PO DAILY [facility] Last Admin: 09/15/21 08:29 Dose: 100 mg Multivitamins (Multivitamins, Thera 1 Each Tab) 1 each PO DAILY@1200 [facility] Last Admin: 09/15/21 08:33 Dose: 1 each Naloxone HCl (Naloxone 0.4 Mg/Ml 1 Ml Vial) 0.2 mg IV Q2M PRN PRN Reason: Opioid Reversal Ondansetron HCl (Ondansetron 4 Mg/2 Ml Vial) 4 mg IVP Q8HR PRN PRN Reason: Nausea And Vomiting Oxycodone/Acetaminophen (Oxycodone-Apap 5-325mg 1 Each Tab) 1 each PO Q6H PRN PRN Reason: Pain Last Admin: 09/16/21 01:48 Dose: 1 each Pantoprazole Sodium (Pantoprazole 40 Mg Tablet) 80 mg PO DAILY [facility] Last Admin: 09/15/21 08:26 Dose: 80 mg Pyridoxine HCl (Pyridoxine 50 Mg Tab) 50 mg PO DAILY [facility] Last Admin: 09/15/21 08:28 Dose: 50 mg Senna/Docusate Sodium (Sennosides-Docusate Sodium 1 Each Tab) 1 each PO DAILY PRN PRN Reason: Constipation Sucralfate (Sucralfate 1 Gm Tab) 3 gm PO DAILY [facility] Last Admin: 09/15/21 08:27 Dose: 3 gm Tamsulosin HCl (Tamsulosin 0.4 Mg Cap.Er.24h) 0.4 mg PO DAILY [facility] Last Admin: 09/15/21 08:28 Dose: 0.4 mg Temazepam (Temazepam 15 Mg Cap) 15 mg PO HS PRN PRN Reason: Insomnia Last Admin: 09/14/21 23:14 Dose: 15 mg Thiamine HCl (Thiamine 100 Mg Tab) 100 mg PO DAILY@1200 [facility] Last Admin: 09/15/21 08:22 Dose: 100 mg PHYSICAL EXAMINATION: GENERAL: The patient is alert and oriented x3, Well developed, well nourished. HEENT: Pupils are round and equally reacting to light. EOMI. no scleral icterus. No conjunctival pallor. Normocephalic, atraumatic. No pharyngeal erythema. No thyromegaly. CARDIOVASCULAR: S1 and S2 muffled PULMONARY: diminished breath sounds bilaterally with no wheezing or rhonchi noted. ABDOMEN: soft. Nontender on exam. obese. non-distended, normoactive bowel sounds. No palpable organomegaly. MUSCULOSKELETAL: No joint swelling or deformity. EXTREMITIES: No cyanosis, clubbing, or pedal edema. NEUROLOGICAL: Gross neurological examination did not reveal any focal deficits. Diffuse weakness SKIN: No rashes. Assessment: Change in mental status and syncope for evaluation History of recent lumbar surgery Atrial fibrillation history Diabetes mellitus Hyperlipidemia Hypertension history of degenerative joint disease Polypharmacy GI prophylaxis DVT prophylaxis Full code Plan: Recommend to continue with current medications and management with neurology following. Patient was evaluated and underwent CT of the brain showing no acute intracranial abnormality or gross space-occupying lesion with unremarkable sella and CP angles with brain volume loss changes likely age-related and stable postsurgical changes on the right side of the posterior cranial fossa. Neurology has discussed with the patient along with family members on on other admissions regarding continuous EEG monitoring as patient has had multiple readmissions for altered mental status and has yet to follow-up in the outpatient setting with neurology as he was addressing his chronic back pains and having back surgery. Patient did have prolonged EEG of 2-1/2 hours which was normal and MRI of the brain was normal as well. Patient is to follow-up at the [facility] for his continued vertigo. On exam today patient's mentation is improved and requesting more pain medications. Will resume some medications. Will continue current regimen and continue to monitor the patient closely. transfer process ongoing to [facility] for continuous EEG monitori mary and Dr. Kovacs has accepted the patient although was also informed there is a long wait list that may take possibly days for the patient to transfer and this was discussed with the son as well. Other facilities attempted and declined the transfer. Continue to wait for a bed assignment and continue close monitoring at this time. Due to multiple complex medical issues, prognosis is guarded. Will have physical therapy evaluate and work with the patient daily here. Recommend limiting narcotic use and continue to follow with neurology. Will follow up with repeat labs in the morning. Again prognosis is guarded. The impression and plan of care has been dictated by Adelina Scales, nurse practitioner as directed. MD Donn I have performed a history and examination and MDM of this patient, discussed the same with the dictator, and agree with the dictator's assessment and plan as written ,documented as a scribe. Based on total visit time, I have performed more than 50% of the visit. Any additional findings or plans will be noted. Objective - Vital Signs Vital signs: Vital Signs Temp 97.8 F 09/16/21 04:52 Pulse 72 09/16/21 04:52 Resp 18 09/16/21 04:52 BP 115/70 09/16/21 04:52 Pulse Ox 95 09/16/21 04:52 FiO2 21 09/15/21 07:34 Intake & Output 09/15/21 09/15/21 09/16/21 06:59 18:59 06:59 Intake Total 666 520 Output Total 2200 1200 Balance -0 -534 520 Intake: Oral 666 520 Output: Urine 2200 1200 Other: Voiding Method Indwelling Catheter Indwelling Catheter Indwelling Catheter # Bowel Movements 0 0 - Labs CBC & Chem 7: 09/14/21 06:17 09/15/21 06:38 Labs: Abnormal Lab Results - Last 24 Hours (Table) 09/15/21 Range/Units 06:38 Glucose 108 H (74-99) mg/dL Microbiology - Last 24 Hours (Table) 09/13/21 15:00 Blood Culture - Preliminary Blood No Growth after 48 hours 09/13/21 14:45 Blood Culture - Preliminary Blood No Growth after 48 hours
[2021-09-16 07:04] LABS: Basophils % (A) 0 %; Eosinophils # (A) 0.3 k/uL (0-0.7); Eosinophils % (A) 5 %; HCT 36.6 % (39.0-53.0); HGB 12.1 gm/dL (13.0-17.5); Hypochromasia Slight; Lymphocytes # (A) 1.7 k/uL (1.0-4.8); Lymphocytes % (A) 24 %; MCH 29.9 pg (25.0-35.0); MCHC 32.9 g/dL (31.0-37.0); MCV 90.9 fL (80.0-100.0); Mean Platelet Volume 7.2; Monocytes # (A) 0.7 k/uL (0-1.0); Monocytes % (A) 9 %; Neutrophils # (A) 4.5 k/uL (1.3-7.7); Neutrophils % (A) 61 %; Platelet Count 198 k/uL (150-450); RBC 4.03 m/uL (4.30-5.90); RDW 14.2 % (11.5-15.5); WBC 7.3 k/uL (3.8-10.6)
[2021-09-16 07:13] LABS: African American GFR (CKD) >90 (>60 ml/min/1.73 sqM); Anion Gap 7 mmol/L; Blood Urea Nitrogen 15 mg/dL (9-20); Calcium 8.6 mg/dL (8.4-10.2); Carbon Dioxide 32 mmol/L (22-30); Chloride 99 mmol/L (98-107); Glucose 107 mg/dL (74-99); Non-African American GFR(CKD) 81 (>60 ml/min/1.73 sqM); Potassium 3.9 mmol/L (3.5-5.1); Sodium 138 mmol/L (137-145)
[2021-09-16] MEDS: MAGNESIUM OXIDE 400 MG TAB PO SCH (09:50)
[2021-09-16] MEDS: FOLIC ACID 1 MG TAB PO SCH (09:50)
[2021-09-16] MEDS: PANTOPRAZOLE 40 MG TABLET PO SCH (09:51)
[2021-09-16] MEDS: GABAPENTIN 300 MG CAP PO SCH ×3 (09:52→20:40)
[2021-09-16] MEDS: MULTIVITAMINS, THERA 1 EACH TAB PO SCH (09:52)
[2021-09-16] MEDS: THIAMINE 100 MG TAB PO SCH (09:52)
[2021-09-16] MEDS: CLOPIDOGREL 75 MG TAB PO SCH (09:52)
[2021-09-16] MEDS: lisinopriL 20 MG TAB PO SCH (09:53)
[2021-09-16] MEDS: CYANOCOBALAMIN 500 MCG TAB PO SCH (09:53)
[2021-09-16] MEDS: SUCRALFATE 1 GM TAB PO SCH (09:53)
[2021-09-16] MEDS: ASPIRIN 81 MG PO SCH (09:53)
[2021-09-16] MEDS: DULoxetine HCL 60 MG CAPSULE.DR PO SCH ×2 (09:54→20:40)
[2021-09-16] MEDS: amLODIPine 10 MG TAB PO SCH (09:54)
[2021-09-16] MEDS: TAMSULOSIN 0.4 MG CAP.ER.24H PO SCH (09:54)
[2021-09-16] MEDS: METOPROLOL SUCCINATE (ER) 100 MG TAB.ER.24H PO SCH (09:55)
[2021-09-16] MEDS: FLUDROCORTISONE 0.1 MG TAB PO SCH (09:56)
[2021-09-16] MEDS: PYRIDOXINE 50 MG TAB PO SCH (09:56)
[2021-09-16] MEDS: BACLOFEN 10 MG TAB PO PRN ×2 (09:58→20:40)
--- NOTE | 2021-09-16 17:33 | P.PN ---
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 Per nurse was notified overnight he is about the same. Objective - Vital Signs Vital signs: Vital Signs Temp 97.8 F 09/16/21 04:52 Pulse 72 09/16/21 04:52 Resp 18 09/16/21 04:52 BP 115/70 09/16/21 04:52 Pulse Ox 95 09/16/21 04:52 FiO2 21 09/15/21 07:34 Intake & Output 09/15/21 09/16/21 09/16/21 18:59 06:59 18:59 Intake Total 666 1520 Output Total 1200 2400 Balance -534 -880 Intake: Oral 666 1520 Output: Urine 1200 2400 Other: Voiding Method Indwelling Catheter Indwelling Catheter Indwelling Catheter # Bowel Movements 0 0 - Exam GENERAL: The patient is lying in bed and is in mild acute distress. NEUROLOGICAL: Higher mental function: The patient is awake, oriented to self, stated he was in the hospital. Stated it was July for . He could not name phone but rather stated it was glucose monitor. He was able to name pen correctly. He is hilaria ewhat slow today compared to yesterday. Patient is following simple commands. No aphasia and no neglect. Cranial nerves: The pupils are round, equal and reactive to light. Visual bishop are full to confrontation throughout. Extraocular movement is intact no nystagmus is noted. Facial sensation is normal to touch throughout. The facial strength is normal throughout. No dysarthria is noted. Shoulder shrug is normal bilaterally. Motor: The strength is 5 over 5 throughout uppers but limited in lowers because of pain but had antigravity (moving the left side better than right side). Normal tone and bulk. Cerebellum: Normal finger to nose bilaterally. Sensation: Sensation is normal to touch throughout. Reflexes (right/left): 1+ throughout. Plantars are mute bilaterally. - Labs CBC & Chem 7: 09/16/21 06:47 09/16/21 06:47 Labs: Abnormal Lab Results - Last 24 Hours (Table) 09/16/21 09/16/21 Range/Units 06:47 06:47 RBC 4.03 L (4.30-5.90) m/uL Hgb 12.1 L (13.0-17.5) gm/dL Hct 36.6 L (39.0-53.0) % Carbon Dioxide 32 H (22-30) mmol/L Glucose 107 H (74-99) mg/dL Microbiology - Last 24 Hours (Table) 09/13/21 15:00 Blood Culture - Preliminary Blood No Growth after 48 hours 09/13/21 14:45 Blood Culture - Preliminary Blood No Growth after 48 hours Assessment and Plan Assessment: Encephalopathy of unknown etiology. Patient presents to our facility multiple times for repeated transient confusion and had extensive work-up (MRI Brain, 2.5 hour EEG and were negative). Rule out any subclinical seizure vs in addition confusion due to polypharmacy. Benign positional vertigo status post decompression in the right occipital Recurrent falls Recurrent vertigo Diabetes Chronic headache Paroxysmal atrial fibrillation not on anticoagulation due to recurrent falls but is on dual antiplatelets History of hypertension Plan: In the past from I recommended an epilepsy monitoring unit for 1-2 weeks but since the patient continues to do presented to our facility for the same issue I recommend local patient to be transferred for long-term EEG. If halfway EEG is negative, I still would recommend to pursue Epilepsy monitoring unit as outpatient to rule out subclinical seizures. I feel the patient is on numerous medication and feel patient is polypharmacy recommend the patient to come down gabapentin from throughout her mid gram one tablet 3 times a day to twice a day. Try to limit sedation/opiates as much as possible Every 4 hours neuro checks Consulted PT and OT. Recommend patient to follow-up with his neurologist for further workup as an outpatient since she presents for the same issue We'll defer the rest of medical management to the primary team. The plan discussed with the patient's nurse. Per son, patient is pending to be seen by [facility] Neurology team as outpatient. In mean time after discharge, notified for patient to be seen by local neurologist if not able to be seen by local neurologist. Kareem Linder M.D. Neuro-hospitalist Time with Patient: Less than 30
[2021-09-16] MEDS: ACETAMINOPHEN TAB 325 MG TAB PO PRN (19:26)
[2021-09-16] MEDS: ATORVASTATIN 40 MG TAB PO SCH (20:40)
[2021-09-17] MEDS: oxyCODONE-APAP 5-325MG 1 EACH TAB PO PRN ×2 (03:10→13:08)
[2021-09-17 05:45] VITALS: TEMP 98.1
[2021-09-17] MEDS: LORazepam 0.5 MG TAB PO PRN (06:08)
[2021-09-17] MEDS: ACETAMINOPHEN TAB 325 MG TAB PO PRN (06:08)
[2021-09-17] MEDS: SUCRALFATE 1 GM TAB PO SCH (08:08)
[2021-09-17] MEDS: PANTOPRAZOLE 40 MG TABLET PO SCH (08:08)
[2021-09-17] MEDS: TAMSULOSIN 0.4 MG CAP.ER.24H PO SCH (08:08)
[2021-09-17] MEDS: GABAPENTIN 300 MG CAP PO SCH (08:08)
[2021-09-17] MEDS: FLUDROCORTISONE 0.1 MG TAB PO SCH (08:08)
[2021-09-17] MEDS: THIAMINE 100 MG TAB PO SCH (08:09)
[2021-09-17] MEDS: lisinopriL 20 MG TAB PO SCH (08:09)
[2021-09-17] MEDS: MAGNESIUM OXIDE 400 MG TAB PO SCH (08:09)
[2021-09-17] MEDS: CYANOCOBALAMIN 500 MCG TAB PO SCH (08:09)
[2021-09-17] MEDS: METOPROLOL SUCCINATE (ER) 100 MG TAB.ER.24H PO SCH (08:09)
[2021-09-17] MEDS: PYRIDOXINE 50 MG TAB PO SCH (08:09)
[2021-09-17] MEDS: MULTIVITAMINS, THERA 1 EACH TAB PO SCH (08:09)
[2021-09-17] MEDS: FOLIC ACID 1 MG TAB PO SCH (08:09)
[2021-09-17] MEDS: amLODIPine 10 MG TAB PO SCH (08:10)
[2021-09-17] MEDS: CLOPIDOGREL 75 MG TAB PO SCH (08:10)
[2021-09-17] MEDS: ASPIRIN 81 MG PO SCH (08:10)
[2021-09-17] MEDS: DULoxetine HCL 60 MG CAPSULE.DR PO SCH (08:10)
[2021-09-17 08:11] VITALS: BP 145/69; PULSE 70; RESP 18
--- NOTE | 2021-09-17 09:24 | P.PN ---
Subjective Progress Note Date: 09/17/21 The patient is seen at bedside and feels he is doing better but feel no new issues other than having lower back pain and stated he recent lower back surgery by Dr. Anderson and had to have the abhilash taken out. Per nurse, still pending for a bed at [facility] for transfer for custodial EEG. Per nurse if no beds available then will be discharged to rehab. Objective - Vital Signs Vital signs: Vital Signs Temp 98.1 F 09/17/21 05:00 Pulse 70 09/17/21 08:10 Resp 18 09/17/21 08:10 BP 145/69 09/17/21 08:10 Pulse Ox 96 09/17/21 05:00 FiO2 21 09/15/21 07:34 Intake & Output 09/16/21 09/17/21 09/17/21 18:59 06:59 18:59 Intake Total 1640 Output Total 2100 Balance -2100 1640 Intake: Oral 1640 Output: Urine 2100 Other: Voiding Method Indwelling Catheter Indwelling Catheter - Exam GENERAL: The patient is lying in bed and is in mild acute distress. NEUROLOGICAL: Higher mental function: The patient is awake, oriented to self, place. He correctly stated the year but stated the current month is July. He is more awake and responsive today. Patient is following simple commands. No aphasia and no neglect. Cranial nerves: The pupils are round, equal and reactive to light. Visual bishop are full to confrontation throughout. Extraocular movement is intact no nystagmus is noted. Facial sensation is normal to touch throughout. The facial strength is normal throughout. No dysarthria is noted. Shoulder shrug is normal bilaterally. Motor: The strength is 5 over 5 throughout uppers but limited in lowers because of pain but had antigravity (moving the left side better than right side). Normal tone and bulk. Cerebellum: Normal finger to nose bilaterally. Sensation: Sensation is normal to touch throughout. Reflexes (right/left): 1+ throughout. Plantars are mute bilaterally. - Labs CBC & Chem 7: 09/16/21 06:47 09/16/21 06:47 Labs: Microbiology - Last 24 Hours (Table) 09/13/21 15:00 Blood Culture - Preliminary Blood No Growth after 72 hours 09/13/21 14:45 Blood Culture - Preliminary Blood No Growth after 72 hours Assessment and Plan Assessment: Encephalopathy of unknown etiology. Patient presents to our facility multiple times for repeated transient confusion and had extensive work-up (MRI Brain, 2.5 hour EEG and were negative). Rule out any subclinical seizure vs in addition confusion due to polypharmacy--improving. Benign positional vertigo status post decompression in the right occipital Recurrent falls Lower back pain s/p recent surgery Recurrent vertigo Diabetes Chronic headache Paroxysmal atrial fibrillation not on anticoagulation due to recurrent falls but is on dual antiplatelets History of hypertension Plan: In the past from I recommended an epilepsy monitoring unit for 1-2 weeks but since the patient continues to do presented to our facility for the same issue I recommend local patient to be transferred for long-term EEG. If etcher machine EEG is negative, I still would recommend to pursue Epilepsy monitoring unit as outpatient to rule out subclinical seizures. I feel the patient is on numerous medication and feel patient is polypharmacy recommend the patient to come down gabapentin from throughout her mid gram one tablet 3 times a day to twice a day. Try to limit sedation/opiates as much as possible Every 4 hours neuro checks Consulted PT and OT. Consulted Dr. Anderson for abhilash removal for his current low back surgery. Recommend patient to follow-up with his neurologist for further workup as an outpatient since she presents for the same issue We'll defer the rest of medical management to the primary team. The son is not happy with management since patient continues to have recurrent admissions for his encephalopathy. I notified him that we made recommendations in past and that was not completed (epilepsy monitoring unit) nor was he followed up with local neurologist for continuity of care/further work-up. Personally, I don't know why the son or family continues to bring the patient to our facility if son is not happy with our care. Per son, patient is pending to be seen by [facility] Neurology team as outpatient but was pending his back issues first. In mean time after discharge, notified for patient to be seen by local neurologist if not able to be seen by local neurologist. The plan discussed with the patient's nurse. Kareem Linder M.D. Neuro-hospitalist Time with Patient: Less than 30
--- NOTE | 2021-09-17 20:07 | P.PN ---
Subjective Progress Note Date: 09/16/21 71-year-old male who was recently admitted with altered mental status and found lying outside of the house by neighbors and brought here by EMS. Patient does follow with Dr. Rodriguez in the outpatient setting and is being followed by neurology. Patient's mentation is improved today and back to baseline and neurology evaluated the patient recommended transfer to [facility] for continuous EEG monitoring that is not provided here. Patient currently denies chest pain or shortness of breath. Patient is afebrile. Recommend repeat labs in the morning. Case management also following and in itiated possible transfer to [facility] for continuous EEG and neurology evaluation although there is a long wait list at this time as the hospital is full. Recommend PT/OT therapy. 09/16/2021 Patient is seen today and mentation is improved and patient is reporting severe pain 01/02. Will resume some home medications and had a lengthy discussion with the patient about limiting narcotic use and patient became more agitated. Patient denies chest pain or shortness of breath. Patient is afebrile. Patient continues to await transfer to [facility] for continuous EEG monitoring. N eurology following. No seizure like activity noted. -- Patient has been accepted at [facility] and opiates that for further evaluation of recurrent syncope with continuous EEG monitoring Objective - Vital Signs Vital signs: Vital Signs Temp 98.3 F 09/16/21 13:00 Pulse 75 09/16/21 13:00 Resp 16 09/16/21 13:00 BP 134/83 09/16/21 13:00 Pulse Ox 94 L 09/16/21 13:00 FiO2 21 09/15/21 07:34 Intake & Output 09/15/21 09/16/21 09/16/21 18:59 06:59 18:59 Intake Total 666 1520 Output Total 1200 2400 Balance -534 -880 Intake: Oral 666 1520 Output: Urine 1200 2400 Other: Voiding Method Indwelling Catheter Indwelling Catheter Indwelling Catheter # Bowel Movements 0 0 - Exam GENERAL: The patient is alert and oriented x3, Well developed, well nourished. HEENT: Pupils are round and equally reacting to light. EOMI. no scleral icterus. No conjunctival pallor. Normocephalic, atraumatic. No pharyngeal erythema. No thyromegaly. CARDIOVASCULAR: S1 and S2 muffled PULMONARY: diminished breath sounds bilaterally with no wheezing or rhonchi noted. ABDOMEN: soft. Nontender on exam. obese. non-distended, normoactive bowel sounds. No palpable organomegaly. MUSCULOSKELETAL: No joint swelling or deformity. EXTREMITIES: No cyanosis, clubbing, or pedal edema. NEUROLOGICAL: Gross neurological examination did not reveal any focal deficits. Diffuse weakness SKIN: No rashes. - Labs CBC & Chem 7: 09/16/21 06:47 09/16/21 06:47 Labs: Abnormal Lab Results - Last 24 Hours (Table) 09/16/21 09/16/21 Range/Units 06:47 06:47 RBC 4.03 L (4.30-5.90) m/uL Hgb 12.1 L (13.0-17.5) gm/dL Hct 36.6 L (39.0-53.0) % Carbon Dioxide 32 H (22-30) mmol/L Glucose 107 H (74-99) mg/dL Microbiology - Last 24 Hours (Table) 09/13/21 15:00 Blood Culture - Preliminary Blood No Growth after 48 hours 09/13/21 14:45 Blood Culture - Preliminary Blood No Growth after 48 hours Assessment and Plan Assessment: Change in mental status and syncope for evaluation History of recent lumbar surgery Atrial fibrillation history Diabetes mellitus Hyperlipidemia Hypertension history of degenerative joint disease Polypharmacy GI prophylaxis DVT prophylaxis Full code Plan: Recommend to continue with current medications and management with neurology von [place]. Patient was evaluated and underwent CT of the brain showing no acute intracranial abnormality or gross space-occupying lesion with unremarkable sella and CP angles with brain volume loss changes likely age-related and stable postsurgical changes on the right side of the posterior cranial fossa. Neurology has discussed with the patient along with family members on on other admissions regarding continuous EEG monitoring as patient has had multiple readmissions for altered mental status and has yet to follow-up in the outpatient setting with neurology as he was addressing his chronic back pains and having back surgery. Patient did have prolonged EEG of 2-1/2 hours which was normal and MRI of the brain was normal as well. Patient is to follow-up at the [facility] for his continued vertigo. On exam today patient's mentation is improved and requesting more pain medications. Will resume some medications. Will continue current regimen and continue to monitor the patient closely. transfer process ongoing to [facility] for continuous EEG monitoring and Dr. Kovacs has accepted the patient although was also informed there is a long wait list that may take possibly days for the patient to transfer and this was discussed with the son as well. Other facilities attempted and declined the transfer. Continue to wait for a bed assignment and continue close monitoring at this time. Due to multiple complex medical issues, prognosis is guarded. Will have physical therapy evaluate and work with the patient daily here. Recommend limiting narcotic use and continue to follow with neurology. Will follow up with repeat labs in the morning. Again prognosis is guarded.
--- NOTE | 2021-09-17 20:09 | P.DS ---
Providers Date of admission: 09/13/21 17:01 Expected date of discharge: 09/17/21 Attending physician: Faviola Moses Consults: 09/13/21 17:24 Consult Physician Routine Consulting Provider: Kareem Linder Consult Reason/Comments: change in mental status Do you want consulting provider notified?: Yes 09/17/21 09:01 Consult Physician Routine Consulting Provider: Emir Anderson Consult Reason/Comments: abhilash removed Do you want consulting provider notified?: Yes Primary care physician: Damon Rodriguez [facility] Course: 71-year-old male who was recently admitted with altered mental status and found lying outside of the house by neighbors and brought here by EMS. Patient does follow with Dr. Rodriguez in the outpatient setting and is being followed by neurology. Patient's mentation is improved today and back to baseline and neurology evaluated the patient recommended transfer to [facility] for continuous EEG monitoring that is not provided here. Patient cur rently denies chest pain or shortness of breath. Patient is afebrile. Recommend repeat labs in the morning. Case management also following and initiated possible transfer to [facility] for continuous EEG and neurology evaluation although there is a long wait list at this time as the hospital is full. Recommend PT/OT therapy. 09/15/2021 Patient is seen today and mentation is improved and patient is reporting severe pain 10/10. Will resume some home medications and had a lengthy discussion with the patient about limiting narcotic use and patient became more agitated. Patient denies chest pain or shortness of breath. Patient is afebrile. Patient continues to await transfer to [facility] for continuous EEG monitoring. Neurology following. No seizure like activity noted. 09/16/2021; patient seen and evaluated sitting up in bed; continues to ask for more pain medication; easily the direct; doesn't seem to be in pain Vital signs remained stable; no further episodes of syncope; patient to be transferred to [facility] once bed opens up 09/17/2021; patient ready to transfer to [facility] Change in mental status and syncope for evaluation History of recent lumbar surgery Atrial fibrillation history Diabetes mellitus Hyperlipidemia Hypertension history of degenerative joint disease Polypharmacy GI prophylaxis DVT prophylaxis Full code Plan: Recommend to continue with current medications and management with neurology following. Patient was evaluated and underwent CT of the brain showing no acute intracranial abnormality or gross space-occupying lesion with unremarkable sella and CP angles with brain volume loss changes likely age-related and stable postsurgical changes on the right side of the posterior cranial fossa. Neurology has discussed with the patient along with family members on on other admissions regarding continuous EEG monitoring as patient has had multiple readmissions for altered mental status and has yet to follow-up in the outpatient setting with neurology as he was addressing his chronic back pains and having back surgery. Patient did have prolonged EEG of 2-1/2 hours which was normal and MRI of the brain was normal as well. Patient is to follow-up at the [facility] for his continued vertigo. On exam today patient's mentation is improved and requesting more pain medications. Will resume some medications. Will continue current regimen and continue to monitor the patient closely. transfer process ongoing to [facility] for continuous EEG monitoring and Dr. Kovacs has accepted the patient although was also informed there is a long wait list that may take possibly days for the patient to transfer and this was discussed with the son as well. Other facilities attempted and declined the transfer. Continue to wait for a bed assignment and continue close monitoring at this time. Due to multiple complex medical issues, prognosis is guarded. Will have physical therapy evaluate and work with the patient daily here. Recommend limiting narcotic use and continue to follow with neurology. Will follow up with repeat labs in the morning. Again prognosis is guarded. Patient Condition at Discharge: Fair Plan - Discharge Summary Discharge Rx Participant: No New Discharge Prescriptions: No Action Folic Acid 1 mg PO DAILY@1200 #30 tab Thiamine [Vitamin B-1] 100 mg PO DAILY@1200 #30 tab Pyridoxine [Vitamin B-6] 50 mg PO DAILY #30 tab Cyanocobalamin [Vitamin B-12] 1,000 mcg PO DAILY #30 tab Calcium Carbonate [Tums] 1,500 mg PO DAILY lisinopriL [Zestril] 20 mg PO DAILY #30 tab Pantoprazole Sodium [Protonix] 80 mg PO DAILY Sucralfate [Carafate] 3 gm PO DAILY Tamsulosin [Flomax] 0.4 mg PO DAILY 30 Days #30 cap Famotidine [Pepcid] 20 mg PO BID 30 Days #60 tab Baclofen [Lioresal] 20 mg PO BID PRN PRN Reason: Muscle Pain DULoxetine HCL [Cymbalta] 60 mg PO BID Lidocaine 5% Patch [Lidoderm 5% Patch] 1 patch TOPICAL DAILY PRN PRN Reason: Pain Butalb/Acetaminophen/Caffeine [Fioricet 50-300-40 mg Capsule] 1 cap PO TID PRN PRN Reason: Migraine Headache Cyclobenzaprine [Flexeril] 10 mg PO TID #90 tab Sennosides/Docusate Sodium [Senna Plus 8.6-50 mg Tablet] 1 each PO DAILY PRN #20 tablet PRN Reason: Constipation amLODIPine [Norvasc] 10 mg PO DAILY tab Acetaminophen Tab [Tylenol] 650 mg PO Q6HR PRN tab PRN Reason: Mild Pain Or Fever > 100.5 fentaNYL 25MCG/HR PATCH [Duragesic 25MCG/HR] 1 patch TRANSDERM Q72H Atorvastatin [Lipitor] 40 mg PO HS Triamcinolone 0.1% Ointment [Kenalog 0.1% Ointment] 1 applic TOPICAL BID Multivitamins, Thera [Multivitamin (formulary)] 1 tab PO DAILY@1200 Clopidogrel [Plavix] 75 mg PO DAILY #30 tab Magnesium Oxide [Mag-Ox] 1,200 mg PO DAILY Fludrocortisone [Florinef] 0.2 mg PO DAILY #30 tablet Aspirin EC [Ecotrin Low Dose] 81 mg PO DAILY Gabapentin 300 mg PO TID #90 cap oxyCODONE-APAP 5-325MG [Percocet 5-325 mg] 1 tab PO Q4HR PRN #56 tab PRN Reason: Pain Metoprolol Succinate (ER) [Toprol XL] 100 mg PO DAILY tab Meloxicam [Mobic] 15 mg PO DAILY Discharge Medication List Atorvastatin [Lipitor] 40 mg PO HS 06/18/20 [History] Folic Acid 1 mg PO DAILY@1200 #30 tab 12/23/20 [Rx] Thiamine [Vitamin B-1] 100 mg PO DAILY@1200 #30 tab 12/23/20 [Rx] Multivitamins, Thera [Multivitamin (formulary)] 1 tab PO DAILY@1200 01/09/21 [History] Triamcinolone 0.1% Ointment [Kenalog 0.1% Ointment] 1 applic TOPICAL BID [History] Pyridoxine [Vitamin B-6] 50 mg PO DAILY #30 tab 01/12/21 [Rx] Cyanocobalamin [Vitamin B-12] 1,000 mcg PO DAILY #30 tab 03/03/21 [Rx] Calcium Carbonate [Tums] 1,500 mg PO DAILY 04/21/21 [History] Clopidogrel [Plavix] 75 mg PO DAILY #30 tab 04/26/21 [Rx] lisinopriL [Zestril] 20 mg PO DAILY #30 tab 04/26/21 [Rx] Magnesium Oxide [Mag-Ox] 1,200 mg PO DAILY 05/05/21 [History] Pantoprazole Sodium [Protonix] 80 mg PO DAILY 05/05/21 [History] Sucralfate [Carafate] 3 gm PO DAILY 05/05/21 [History] Fludrocortisone [Florinef] 0.2 mg PO DAILY #30 tablet 05/11/21 [Rx] Tamsulosin [Flomax] 0.4 mg PO DAILY 30 Days #30 cap 05/11/21 [Rx] Aspirin EC [Ecotrin Low Dose] 81 mg PO DAILY 05/28/21 [History] Famotidine [Pepcid] 20 mg PO BID 30 Days #60 tab 06/06/21 [Rx] Baclofen [Lioresal] 20 mg PO BID PRN 08/18/21 [History] Butalb/Acetaminophen/Caffeine [Fioricet 50-300-40 mg Capsule] 1 cap PO TID PRN 08/18/21 [History] DULoxetine HCL [Cymbalta] 60 mg PO BID 08/18/21 [History] Lidocaine 5% Patch [Lidoderm 5% Patch] 1 patch TOPICAL DAILY PRN 08/18/21 [History] Cyclobenzaprine [Flexeril] 10 mg PO TID #90 tab 08/26/21 [Rx] Gabapentin 300 mg PO TID #90 cap 08/26/21 [Rx] Sennosides/Docusate Sodium [Senna Plus 8.6-50 mg Tablet] 1 each PO DAILY PRN #20 tablet 08/26/21 [Rx] oxyCODONE-APAP 5-325MG [Percocet 5-325 mg] 1 tab PO Q4HR PRN #56 tab 08/26/21 [Rx] Acetaminophen Tab [Tylenol] 650 mg PO Q6HR PRN tab 08/29/21 [Rx] Metoprolol Succinate (ER) [Toprol XL] 100 mg PO DAILY tab 08/29/21 [Rx] amLODIPine [Norvasc] 10 mg PO DAILY tab 08/29/21 [Rx] Meloxicam [Mobic] 15 mg PO DAILY 09/13/21 [History] fentaNYL 25MCG/HR PATCH [Duragesic 25MCG/HR] 1 patch TRANSDERM Q72H 09/13/21 [History] Follow up Appointment(s)/Referral(s): Damon Rodriguez MD [Primary Care Provider] - 1-2 days Discharge Disposition: OTHER INSTITUTION NOT DEFINED
[2021-09-17] MEDS ORDERED: TRIAMCINOLONE ACET 0.1% OINTMENT 15 GM TUBE TOPICAL SCH (21:00)
== END 2021-09-17 18:20 | disposition short-term general hospital (02) | DRG 72 ==
LOC: EC 13:59 → 5NMEDONC 17:01
PROVIDERS: ADMIT Hospitalist; ATTEND Hospitalist
DX: G93.40 Encephalopathy, unspecified (principal); E11.42 Type 2 diabetes mellitus with diabetic polyneuropathy; I10 Essential (primary) hypertension; R55 Syncope and collapse; I48.0 Paroxysmal atrial fibrillation; E78.5 Hyperlipidemia, unspecified; G89.29 Other chronic pain; M19.90 Unspecified osteoarthritis, unspecified site; M54.50 Low back pain, unspecified; K21.9 Gastro-esophageal reflux disease without esophagitis; H81.11 Benign paroxysmal vertigo, right ear; R29.6 Repeated falls; R51.9 Headache, unspecified; N40.0 Benign prostatic hyperplasia without lower urinary tract symptoms; S00.83XA Contusion of other part of head, initial encounter; W19.XXXA Unspecified fall, initial encounter; Z91.19 Patient's noncompliance with other medical treatment and regimen; Z91.81 History of falling; Z90.13 Acquired absence of bilateral breasts and nipples; Z86.018 Personal history of other benign neoplasm; Z87.19 Personal history of other diseases of the digestive system; Z86.14 Personal history of Methicillin resistant Staphylococcus aureus infection; Z87.81 Personal history of (healed) traumatic fracture; Z87.891 Personal history of nicotine dependence; Z98.890 Other specified postprocedural states; Z79.899 Other long term (current) drug therapy; Z79.891 Long term (current) use of opiate analgesic; Z88.8 Allergy status to other drugs, medicaments and biological substances; Z88.1 Allergy status to other antibiotic agents; Z88.0 Allergy status to penicillin; Y92.007 Garden or yard of unspecified non-institutional (private) residence as the place of occurrence of the external cause; Z79.82 Long term (current) use of aspirin; Z79.02 Long term (current) use of antithrombotics/antiplatelets; Z82.49 Family history of ischemic heart disease and other diseases of the circulatory system
CPT/HCPCS: 36415; 70450; 71045; 80048; 80053; 80306; 80320; 81001; 82140; 82550; 84484; 85025; 85610; 85730; 87040; 87635; 93005; 94760; 96360; 96361; 99285

== ENCOUNTER 2021-12-12 11:31 | Inpatient (IN) | payer MEDICARE ==
[2021-12-12] MEDS ORDERED: FLUDROCORTISONE 0.1 MG TAB PO STA (11:48)
[2021-12-12 12:26] LABS: Basophils # (A) 0.1 k/uL (0-0.2); Basophils % (A) 1 %; Eosinophils # (A) 0.2 k/uL (0-0.7); Eosinophils % (A) 2 %; HCT 42.1 % (39.0-53.0); HGB 13.4 gm/dL (13.0-17.5); Lymphocytes # (A) 1.5 k/uL (1.0-4.8); Lymphocytes % (A) 13 %; MCH 29.8 pg (25.0-35.0); MCHC 31.9 g/dL (31.0-37.0); MCV 93.6 fL (80.0-100.0); Mean Platelet Volume 7.6; Monocytes # (A) 0.8 k/uL (0-1.0); Monocytes % (A) 7 %; Neutrophils % (A) 77 %; Platelet Count 265 k/uL (150-450); RBC 4.49 m/uL (4.30-5.90); RDW 14.4 % (11.5-15.5); WBC 11.7 k/uL (3.8-10.6)
[2021-12-12 12:38] LABS: INR 0.9 (<1.2); Partial Thromboplastin Time 29.1 sec (22.0-30.0); Prothrombin Time 9.8 sec (9.0-12.0)
[2021-12-12 12:42] LABS: ALT 33 U/L (4-49); AST 85 U/L (17-59); African American GFR (CKD) 44 (>60 ml/min/1.73 sqM); Albumin 4.4 g/dL (3.5-5.0); Alcohol <10 mg/dL; Alkaline Phosphatase 105 U/L (38-126); Anion Gap 15 mmol/L; Blood Urea Nitrogen 36 mg/dL (9-20); Calcium 9.6 mg/dL (8.4-10.2); Carbon Dioxide 28 mmol/L (22-30); Chloride 97 mmol/L (98-107); Glucose 132 mg/dL (74-99); Non-African American GFR(CKD) 38 (>60 ml/min/1.73 sqM); Sodium 140 mmol/L (137-145); Total Bilirubin 0.8 mg/dL (0.2-1.3); Total Protein 7.2 g/dL (6.3-8.2)
--- NOTE | 2021-12-12 12:58 | CT ---
EXAMINATION TYPE: CT brain cspine wo con DATE OF EXAM: 12/12/2021 COMPARISON: 09/13/2021 HISTORY: Fall, facial injury CT DLP: 1472.6 mGycm, Automated exposure control for dose reduction was used. CONTRAST: Patient injected with 0 mL of Isovue 300. CT of the brain is performed utilizing 3 mm thick sections through the posterior fossa and 3 mm thick sections through the remaining calvarium. Study is performed within 24 hours of arrival to the hospital. No abnormal hyperdensity is present to suggest an acute intracranial hemorrhage. No mass lesion is evident. No acute infarcts are evident. Ventricles and sulci are appropriate for the patient age. Paranasal sinuses and mastoid air cells within the [id number] are clear. There is an old right occ ipital craniotomy posterior to the right mastoid air cells. Some encephalomalacia of the adjacent bra in may be present. Findings are stable from the 09/13/2021 comparison. IMPRESSIONS: 1. No acute intracranial process. 2. Old postsurgical changes right lateral occipital region. CT cervical spine. COMPARISON: None CT of the cervical spine is performed in the axial plane at 2 mm thick sections. Reconstructed image s in the coronal, and sagittal plane are reviewed on the computer. No acute fractures are evident. Vertebral body alignment is normal. Mild disc space narrowing is present at C5-6 C6-7. Endplate spurring is present at C5-6 with mild ant erior thecal sac compression. Uncovertebral joint hypertrophy has moderate bilateral foraminal narrow ing at C5-6 level. Small central spurs are present C3-C4. Vertebral body heights are preserved. No spinal canal stenosis is evident. IMPRESSIONS: 1. No acute osseous abnormality cervical spine. 2. Some chronic appearing foraminal narrowing at C5-6 due to uncovertebral joint hypertrophy is prese nt bilaterally
--- NOTE | 2021-12-12 13:09 | CT ---
EXAMINATION TYPE: CT facial bones wo con DATE OF EXAM: 12/12/2021 COMPARISON: None HISTORY: Fall, facial injury CT DLP: 1472.6 mGycm CONTRAST: 0 mL of Isovue 300 The paranasal sinuses are examined in the axial plane at 2 mm thick sections. Reconstructed images i n the coronal plane were obtained. Patient is edentulous. Temporomandibular junctions appear normal. Maxillary spine appears normal. Shaq al bones appear intact. There is some degree through the left anterior nasal passage which could be r elated to hemorrhage. There is a minimal air-fluid level within the left maxillary sinus. The ethmoid air cells are clear. The sphenoid sinuses are clear. Frontal sinuses are aplastic. The septum is evaluated. There is septal deviation to the right. The ostiomeatal units are patent. Small bilateral phi bullosa are present. Orbital floors and medial balbuena of the orbits appear intact. The globes are symmetrical. IMPRESSIONS: 1. No acute posttraumatic changes. 2. Minimal air-fluid level within the left maxillary sinus without significant mucosal thickening. Co nsider acute maxillary sinusitis. Findings can be related to tearing/crying. Minimal hemorrhage is no t excluded.
--- NOTE | 2021-12-12 13:43 | XR ---
EXAMINATION TYPE: XR chest 2V DATE OF EXAM: 12/12/2021 COMPARISON: Chest x-ray 09/13/2021 HISTORY: Cough and pain TECHNIQUE: Frontal and lateral views of the chest are obtained. FINDINGS: There is no focal air space opacity, pleural effusion, or pneumothorax seen. The cardiac silhouette size is within normal limits. The patient is rotated. There is thoracic spondylosis. There are overlying artifacts. Arthropathy noted at the acromioclavicular joint on the right. There is antonino ntration of the right hemidiaphragm. The osseous structures are intact. IMPRESSION: No acute cardiopulmonary process.
--- NOTE | 2021-12-12 13:45 | XR ---
AP pelvis HISTORY: Trauma and pain Single frontal view of the pelvis correlated to prior pelvis 08/05/2021 Postop changes are noted the lumbosacral spine. Bone mineralization, joint spaces and alignment are s table. Metallic coils are present over the lower pelvis. IMPRESSION: No acute fracture or dislocation is evident
--- NOTE | 2021-12-12 15:04 | ED ---
Altered Mental Status HPI - General Chief Complaint: Altered Mental Status Stated Complaint: AMS Time Seen by Provider: 12/12/21 11:33 Source: EMS Mode of arrival: EMS - History of Present Illness Initial Comments: 71-year-old male with past medical history of A. fib, diabetes, hypertension, chronic pain on narcotics who presents emergency Department with altered mental status. EMS were called to the house with the patient was found crawling down the hallway. He has visible injury to his nose with bilateral epistaxis. Patient reported that he had fallen out of bed. There was blood in the bedroom. The patient was not able to provide much history as he was only alert and oriented 1. Per their report the patient is normally a and O 4. He does have recent paperwork that accompanies him. Shows a hospitalization at [facility] for acute kidney injury. The patient moans in pain however does not follow any commands and is otherwise nonverbal. Because of this the HPI is limited - Related Data Home Medications Medication Instructions Recorded Confirmed Atorvastatin [Lipitor] 40 mg PO HS 06/18/20 12/12/21 Multivitamins, Thera [Multivitamin 1 tab PO DAILY@1200 01/09/21 12/12/21 (formulary)] Triamcinolone 0.1% Ointment 1 applic TOPICAL BID 01/09/21 12/12/21 [Kenalog 0.1% Ointment] Magnesium Oxide [Mag-Ox] 400 mg PO TID 05/05/21 12/12/21 Pantoprazole Sodium [Protonix] 40 mg PO BID 05/05/21 12/12/21 Sucralfate [Carafate] 1 gm PO AC-TID 05/05/21 12/12/21 Aspirin EC [Ecotrin Low Dose] 81 mg PO DAILY 05/28/21 12/12/21 DULoxetine HCL [Cymbalta] 60 mg PO BID 08/18/21 12/12/21 Fludrocortisone [Florinef] 0.1 mg PO DAILY 12/12/21 12/12/21 Meloxicam [Mobic] 7.5 mg PO BID 12/12/21 12/12/21 Metoprolol Tartrate [Lopressor] 50 mg PO TID 12/12/21 12/12/21 SILVER sulfADIAZINE Cream 1 applic TOPICAL BID 12/12/21 12/12/21 [Silvadene 1% Cream] amLODIPine [Norvasc] 5 mg PO DAILY 12/12/21 12/12/21 Previous Rx's Medication Instructions Recorded Folic Acid 1 mg PO DAILY@1200 #30 tab 12/23/20 Thiamine [Vitamin B-1] 100 mg PO DAILY@1200 #30 tab 12/23/20 Clopidogrel [Plavix] 75 mg PO DAILY #30 tab 04/26/21 Tamsulosin [Flomax] 0.4 mg PO DAILY 30 Days #30 cap 05/11/21 Famotidine [Pepcid] 20 mg PO BID 30 Days #60 tab 06/06/21 Acetaminophen Tab [Tylenol] 650 mg PO Q6HR PRN tab 12/14/21 Pyridoxine [Vitamin B-6] 50 mg PO DAILY #30 tab 12/14/21 Allergies Allergy/AdvReac Type Severity Reaction Status Date / Time cephalexin monohydrate Allergy Anaphylaxis Verified 12/12/21 14:10 [From Keflex] Cephalosporins Allergy Anaphylaxis Verified 12/12/21 14:10 Penicillins Allergy Anaphylaxis Verified 12/12/21 14:10 Review of Systems ROS Statement: Those systems with pertinent positive or pertinent negative responses have been documented in the HPI. ROS Other: All systems not noted in ROS Statement are negative. Past Medical History Past Medical History: Atrial Fibrillation, Diabetes Mellitus, GERD/Reflux, Hyperlipidemia, Hypertension, Osteoarthritis (OA), Pneumonia, Prostate Disorder Additional Past Medical History / Comment(s): Pt recently admitted to [facility] on 06/03/21 with fall/possible TIA. Other hx: FALLS, falls with fractuers, vertigo, surgeries for compressed brain stem at [facility], diet controlled diabetes/neuropathy bilateral feet and occasionally in both hands fingertips, bilateral mastectomies d/t benign tumors, chronic low back pain, chronic headaches, BPH, ulcerative colitis, benign colon polyps History of Any Multi-Drug Resistant Organisms: MRSA Date of last positivie culture/infection: MRSA-03/11 MDRO Source:: Source unknown-MRSA Past Surgical History: Back Surgery, Breast Surgery, Orthopedic Surgery Additional Past Surgical History / Comment(s): Bilateral mastectomy with right sided lymp node removal, R knee cap removed d/t fracture, Back surgery for herniated disc, brain stem surgeries for decompression-for dizziness and a surgery for spinal fluid leakage, right ankle ORIF, bilateral wrist fractures SX Past Anesthesia/Blood Transfusion Reactions: No Reported Reaction Past Psychological History: No Psychological Hx Reported Smoking Status: Former smoker Past Alcohol Use History: None Reported Past Drug Use History: None Reported - Past Family History Father History Unknown: Yes Family Medical History: Congestive Heart Failure (CHF) Additional Family Medical History / Comment(s): at 68. Mother History Unknown: Yes Family Medical History: Hypertension Additional Family Medical History / Comment(s): Pulmonary hypertension. at 78. General Exam Limitations: altered mental status General appearance: obtunded Head exam: Present: normocephalic Eye exam: Present: normal appearance, PERRL, EOMI. Absent: scleral icterus, conjunctival injection, periorbital swelling ENT exam: Present: other (bilateral epistasix with clotted blood. no septal hematoma) Neck exam: Present: normal inspection. Absent: tenderness, meningismus, lymphadenopathy Respiratory exam: Present: normal lung sounds bilaterally. Absent: respiratory distress, wheezes, rales, rhonchi, stridor Cardiovascular Exam: Present: regular rate, normal rhythm, normal heart sounds. Absent: systolic murmur, diastolic murmur, rubs, gallop, clicks GI/Abdominal exam: Present: soft, normal bowel sounds. Absent: distended, tenderness, guarding, rebound, rigid Extremities exam: Present: normal inspection, full ROM, normal capillary refill. Absent: tenderness, pedal edema, joint swelling, calf tenderness Back exam: Present: normal inspection Neurological exam: Present: altered, CN II-XII intact Skin exam: Present: warm, dry, normal color. Absent: rash Course Vital Signs 12/12/21 12/12/21 12/12/21 11:41 12:46 14:38 Temperature 98.1 F Pulse Rate 56 L 52 L 56 L Respiratory 20 18 18 Rate Blood Pressure 71/39 107/63 107/63 O2 Sat by Pulse 95 95 95 Oximetry 12/12/21 12/12/21 12/12/21 15:21 17:17 18:16 Temperature Pulse Rate 56 L 64 58 L Respiratory 18 18 18 Rate Blood Pressure 118/62 107/76 117/81 O2 Sat by Pulse 95 97 96 Oximetry 12/12/21 12/12/21 12/12/21 19:22 20:00 23:00 Temperature Pulse Rate 62 57 L 56 L Respiratory 16 16 16 Rate Blood Pressure 108/67 106/67 102/69 O2 Sat by Pulse 97 98 97 Oximetry 12/13/21 12/13/21 12/13/21 01:00 02:00 03:00 Temperature Pulse Rate 56 L 55 L 59 L Respiratory 14 11 L 14 Rate Blood Pressure 119/65 126/83 119/70 O2 Sat by Pulse Oximetry 12/13/21 12/13/21 12/13/21 04:00 05:00 06:00 Temperature Pulse Rate 60 57 L 58 L Respiratory 11 L 14 12 Rate Blood Pressure 115/79 108/66 111/60 O2 Sat by Pulse Oximetry 12/13/21 12/13/21 12/13/21 07:35 10:00 14:02 Temperature 97.1 F L 98.6 F Pulse Rate 56 L 60 66 Respiratory 18 18 16 Rate Blood Pressure 122/65 111/43 156/88 O2 Sat by Pulse 96 98 98 Oximetry 12/13/21 12/13/21 15:02 17:53 Temperature 98 F Pulse Rate 65 69 Respiratory 16 20 Rate Blood Pressure 124/86 134/55 O2 Sat by Pulse 92 L 99 Oximetry Medical Decision Making - Medical Decision Making Upon arrival the patient was placed into room 6. Thorough history and physical exam is performed. Patient is obtunded upon original exam and does not follow any commands. IV access is established. Laboratory studies are conducted. Creatinine elevated at 1.7. CT of the brain and cervical spine is performed which demonstrates no acute intracranial process. Old postsurgical changes. Facial CT performed because of epistaxis which demonstrates minimal air fluid level within the left maxillary sinus. Chest x-ray demonstrates no acute process. Pelvic x-ray demonstrates no acute fracture. Patient does have some improvement in his mentation. He was able to open his eyes, look around. He questions where he is at however does have nonsensical questions. Recommended admission for encephalopathy. Called and spoke with Adelina from [facility] she was agreeable to admit the patient - Lab Data Result diagrams: 12/13/21 05:35 12/14/21 04:49 Lab Results 12/12/21 12/12/21 12/12/21 Range/Units 12:16 12:16 12:16 WBC 11.7 H (3.8-10.6) k/uL RBC 4.49 (4.30-5.90) m/uL Hgb 13.4 (13.0-17.5) gm/dL Hct 42.1 (39.0-53.0) % MCV 93.6 (80.0-100.0) fL MCH 29.8 (25.0-35.0) pg MCHC 31.9 (31.0-37.0) g/dL RDW 14.4 (11.5-15.5) % Plt Count 265 (150-450) k/uL MPV 7.6 Neutrophils % 77 % Lymphocytes % 13 % Monocytes % 7 % Eosinophils % 2 % Basophils % 1 % Neutrophils # 9.0 H (1.3-7.7) k/uL Lymphocytes # 1.5 (1.0-4.8) k/uL Monocytes # 0.8 (0-1.0) k/uL Eosinophils # 0.2 (0-0.7) k/uL Basophils # 0.1 (0-0.2) k/uL PT 9.8 (9.0-12.0) sec INR 0.9 (<1.2) APTT 29.1 (22.0-30.0) sec Sodium 140 (137-145) mmol/L Potassium 4.0 (3.5-5.1) mmol/L Chloride 97 L (98-107) mmol/L Carbon Dioxide 28 (22-30) mmol/L Anion Gap 15 mmol/L BUN 36 H (9-20) mg/dL Creatinine 1.76 H (0.66-1.25) mg/dL Est GFR (CKD-EPI)AfAm 44 (>60 ml/min/1.73 sqM) Est GFR (CKD-EPI)NonAf 38 (>60 ml/min/1.73 sqM) Glucose 132 H (74-99) mg/dL Calcium 9.6 (8.4-10.2) mg/dL Total Bilirubin 0.8 (0.2-1.3) mg/dL AST 85 H (17-59) U/L ALT 33 (4-49) U/L Alkaline Phosphatase 105 (38-126) U/L Troponin I (0.000-0.034) ng/mL Total Protein 7.2 (6.3-8.2) g/dL Albumin 4.4 (3.5-5.0) g/dL Serum Alcohol <10 mg/dL 12/12/21 Range/Units 12:16 WBC (3.8-10.6) k/uL RBC (4.30-5.90) m/uL Hgb (13.0-17.5) gm/dL Hct (39.0-53.0) % MCV (80.0-100.0) fL MCH (25.0-35.0) pg MCHC (31.0-37.0) g/dL RDW (11.5-15.5) % Plt Count (150-450) k/uL MPV Neutrophils % % Lymphocytes % % Monocytes % % Eosinophils % % Basophils % % Neutrophils # (1.3-7.7) k/uL Lymphocytes # (1.0-4.8) k/uL Monocytes # (0-1.0) k/uL Eosinophils # (0-0.7) k/uL Basophils # (0-0.2) k/uL PT (9.0-12.0) sec INR (<1.2) APTT (22.0-30.0) sec Sodium (137-145) mmol/L Potassium (3.5-5.1) mmol/L Chloride (98-107) mmol/L Carbon Dioxide (22-30) mmol/L Anion Gap mmol/L BUN (9-20) mg/dL Creatinine (0.66-1.25) mg/dL Est GFR (CKD-EPI)AfAm (>60 ml/min/1.73 sqM) Est GFR (CKD-EPI)NonAf (>60 ml/min/1.73 sqM) Glucose (74-99) mg/dL Calcium (8.4-10.2) mg/dL Total Bilirubin (0.2-1.3) mg/dL AST (17-59) U/L ALT (4-49) U/L Alkaline Phosphatase (38-126) U/L Troponin I <0.012 (0.000-0.034) ng/mL Total Protein (6.3-8.2) g/dL Albumin (3.5-5.0) g/dL Serum Alcohol mg/dL - EKG Data EKG Comments: EKG demonstrates sinus bradycardia with a rate of 55. LA interval 200. QRS 96. QTC 449. No acute ST segment elevations or depressions Disposition Clinical Impression: Encephalopathy acute, Epistaxis due to trauma, Concussion Disposition: ADMITTED IP TO THIS [facility] Condition: Fair Is patient prescribed a controlled substance at d/c from ED?: No Time of Disposition: 15:23 Decision to Admit Reason: Admit from EC Decision Date: 12/12/21 Decision Time: 15:23
[2021-12-12] MEDS ORDERED: NALOXONE 0.4 MG/ML 1 ML VIAL IV PRN (15:23)
[2021-12-12 19:24] LABS: Appearance,Urine Clear (Clear); Bilirubin,Urine Negative (Negative); Blood,Urine Negative (Negative); Color,Urine Yellow; Glucose,Urine (UA) Negative (Negative); Ketones,Urine Negative (Negative); Leukocyte Esterase,Urine Negative (Negative); Nitrite,Urine Negative (Negative); Protein,Urine Negative (Negative); Specific Gravity,Urine 1.011 (1.001-1.035); Urobilinogen,Urine <2.0 mg/dL (<2.0)
[2021-12-12 19:34] LABS: Amphetamine Screen,Urine Not Detected (NotDetected); Benzodiazepines Screen,Urine Detected (NotDetected); Cocaine Screen,Urine Not Detected (NotDetected); Opiate Screen,Urine Not Detected (NotDetected); Phencyclidine Screen,Urine Not Detected (NotDetected); Urn Cannabinoid Scrn Not Detected (NotDetected)
[2021-12-12 19:35] LABS: Barbiturate Screen,Urine Detected (NotDetected); Methadone Screen, Urine Not Detected (NotDetected); Oxycodone Screen, Urine Not Detected (NotDetected); Tricyclic Antidepressant,Urine Not Detected (NotDetected)
[2021-12-12] MEDS: METOPROLOL TARTRATE 50 MG TAB PO SCH (23:53)
[2021-12-12] MEDS: ATORVASTATIN 40 MG TAB PO SCH (23:53)
[2021-12-12] MEDS: ACETAMINOPHEN TAB 325 MG TAB PO PRN (23:53)
--- NOTE | 2021-12-13 02:20 | XR ---
EXAMINATION TYPE: XR knee limited bilateral DATE OF EXAM: 12/13/2021 COMPARISON: NONE HISTORY: Fall. Pain TECHNIQUE: 2 views each knee FINDINGS: There is small left knee joint effusion. There is deformity and partial absence of the righ t patella. There is some narrowing of the medial joint space of the left knee. No acute bony abnormal ity. No fracture. IMPRESSION: There is some osteoarthritis in the medial joint space of the left knee. There is some de formity of the right patella which is mostly absent and also evidence of old healed fracture of the h ead of the right fibula. No acute fracture seen.
[2021-12-13] MEDS: METOPROLOL TARTRATE 50 MG TAB PO SCH ×3 (08:58→21:28)
[2021-12-13] MEDS ORDERED: lisinopriL 20 MG TAB PO SCH (09:00)
[2021-12-13 09:20] LABS: Basophils # (A) 0.03 X 10*3/uL (0.00-0.10); Basophils % (A) 0.3 %; Eosinophils % (A) 1.9 %; HCT 40.3 % (39.6-50.0); HGB 12.9 g/dL (13.0-17.0); Immature Grans, Automated 0.5 %; Lymphocytes # (A) 1.52 X 10*3/uL (0.90-5.00); Lymphocytes % (A) 14.6 %; MCH 29.9 pg (27.0-32.0); MCV 93.5 fL (80.0-97.0); Mean Platelet Volume 10.9 fL (9.5-12.2); Monocytes % (A) 8.6 %; NRBC Per 100 WBC 0 /100 WBCS (0.0-0.0); Neutrophils # (A) 7.71 X 10*3/uL (1.80-7.70); Neutrophils % (A) 74.1 %; Platelet Count 209 X 10*3/uL (140-440); RBC 4.31 X 10*6/uL (4.40-5.60); RDW 14.3 % (11.5-14.5); WBC 10.41 X 10*3/uL (4.50-10.00)
[2021-12-13] MEDS: ACETAMINOPHEN TAB 325 MG TAB PO PRN ×2 (09:23→17:56)
[2021-12-13] MEDS: FLUDROCORTISONE 0.1 MG TAB PO SCH (09:23)
[2021-12-13] MEDS: CLOPIDOGREL 75 MG TAB PO SCH (09:23)
[2021-12-13] MEDS: amLODIPine 5 MG TAB PO SCH (09:24)
[2021-12-13 09:30] LABS: African American GFR (CKD) 58.2 (60.0-200.0); Anion Gap 10.6 mmol/L (10.00-18.00); BUN/Creat Ratio 19.43 Ratio (12.00-20.00); Blood Urea Nitrogen 27.2 mg/dL (9.0-27.0); Calcium 9.5 mg/dL (8.7-10.3); Carbon Dioxide 28.4 mmol/L (20.0-27.5); Non-African American GFR(CKD) 50.2 (60.0-200.0); Potassium 4.2 mmol/L (3.5-5.5)
--- NOTE | 2021-12-13 15:00 | P.HPIM ---
History of Present Illness H&P Date: 12/13/21 This is a 71 year old male who is brought into the hospital by EMS with concern for altered mental status and confusion. Patient follows with Dr Rodriguez. Patient was found crawling down the hallway at his residence and alert x 1. Patient did hit his head with fall and as felt to have possible concussion he also had evidence of trauma to the face with acute epistaxis bilateral nares. Per patient he had fallen out of bed. Initial exam in the EC patient nonverbal, moaning and not following commands. Patient had CT brain and spine as well as facial CT complete negative for acute findings. Chest xray, pelvix and right hip xray reported as negative. 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 He is not anticoagulated outpatient, does take an aspirin 81 mg daily. He has frequent falls requiring hospitalization. Patient is evaluated today in the EC pending bed on the floor, his mentation has improved and he is asking for discharge. Patient does have some mild leukocytosis and presented with acute kidney injury with creatinine of 1.76. Patient is on multiple drug classes of medications and will hold off on his gabapentin, mobic, baclofen, and fioricet for now. Patient is also taking bactrim currently. He was recently treated at outside hospital for acute kidney injury. Patients creatinine has improved down to 1.4 this morning with monitoring. Blood pressure has been running on the lower side 110/60s and his lisinopril is also being hold. Drug toxicology positive for benzodiazepines and barbituates. Patient is admitted for acute encephalopathy and concussion. We will monitor overnight and ask PT and OT to evaluate patient. Also check orthostatics. Neurology has been consulted for evaluation as well. Patient had CT brain and cspine showing no acute process, old postsurgical changes right lateral occipital region, no acute hermorrhage Face CT showing no acute post traumatic changes, possible acute maxillary sinusitis, minimal hemorrhage is not excluded. Chest xray showing no acute process Pelvis xray showing no acute fracture or dislocation Right knee xray negative for acute fracture REVIEW OF SYSTEMS: CONSTITUTIONAL: No fever, no malaise, no fatigue. HEENT: No recent visual problems or hearing problems. Denied any sore throat. CARDIOVASCULAR: No chest pain, orthopnea, PND, no palpitations, no syncope. PULMONARY: No shortness of breath, no cough, no hemoptysis. GASTROINTESTINAL: No diarrhea, no nausea, no vomiting, no abdominal pain. NEUROLOGICAL: No headaches, no weakness, no numbness. HEMATOLOGICAL: Denies any bleeding or petechiae. GENITOURINARY: Denies any burning micturition, frequency, or urgency. MUSCULOSKELETAL/RHEUMATOLOGICAL: Denies any joint pain, swelling, or any muscle pain. ENDOCRINE: Denies any polyuria or polydipsia. The rest of the 14-point review of systems is negative. PHYSICAL EXAMINATION: GENERAL: The patient is alert and oriented x3, not in any acute distress. Well developed, well nourished. HEENT: Pupils are round and equally reacting to light. EOMI. No scleral icterus. No conjunctival pallor. Normocephalic, atraumatic. No pharyngeal erythema. No thyromegaly. CARDIOVASCULAR: S1 and S2 present. No murmurs, rubs, or gallops. PULMONARY: Chest is clear to auscultation, no wheezing or crackles. ABDOMEN: Soft, nontender, nondistended, normoactive bowel sounds. No palpable organomegaly. MUSCULOSKELETAL: No joint swelling or deformity. EXTREMITIES: No cyanosis, clubbing, or pedal edema. NEUROLOGICAL: Gross neurological examination did not reveal any focal deficits. SKIN: No rashes. Does have some mild bruising to right bridge of nose. Assessment and Plan Assessment Dizziness and lightheadedness with fall possible syncopal episodes secondary to medication effect Altered mental status secondary to metabolic encephalopathy patient is taking Acute kidney injury mostly prerenal secondary to medication effect and poor oral intake will hold off on patients lisinopril, gabapentin, mobic, baclofen and fioricet. Leukocytosis reactive History of recent lumbar surgery Atrial fibrillation history Diabetes Mellitus with neuropathy Hypertension currently normotensive Hyperlipidemia History of degenerative joint disease Polypharmacy History of compressed brain stem with surgical repair Frequent falls Former smoker GI Prophylaxis DVT Prophylaxis Full Code Plan Resume appropriate home medications, will hold some off on gabapentin, mobic, fioricet and baclofen for now Hold lisinopril Repeat labs in AM monitor kidney function Check orthostatics Neurology consultation PT/OT has been consulted Social work consulatation regarding safety and frequent admission for falls The impression and plan of care has been dictated by Ashley Trammell, Nurse Practitioner as directed. Dr. [place] MD I have performed a history and physical examination and medical decision making of this patient, discussed the same with the dictator, and agree with the d ictators assessment and plan as written, documented as a scribe. Based on total visit time, I have performed more than 50% of this visit. Past Medical History Past Medical History: Atrial Fibrillation, Diabetes Mellitus, GERD/Reflux, Hyperlipidemia, Hypertension, Osteoarthritis (OA), Pneumonia, Prostate Disorder Additional Past Medical History / Comment(s): Pt recently admitted to [facility] on 06/03/21 with fall/possible TIA. Other hx: FALLS, falls with fractuers, vertigo, surgeries for compressed brain stem at [facility], diet controlled diabetes/neuropathy bilateral feet and occasionally in both hands fingertips, bilateral mastectomies d/t benign tumors, chronic low back pain, chronic headaches, BPH, ulcerative colitis, benign colon polyps History of Any Multi-Drug Resistant Organisms: MRSA Date of last positivie culture/infection: MRSA-03/11 MDRO Source:: Source unknown-MRSA Past Surgical History: Back Surgery, Breast Surgery, Orthopedic Surgery Additional Past Surgical History / Comment(s): Bilateral mastectomy with right sided lymp node removal, R knee cap removed d/t fracture, Back surgery for herniated disc, brain stem surgeries for decompression-for dizziness and a surgery for spinal fluid leakage, right ankle ORIF, bilateral wrist fractures SX Past Anesthesia/Blood Transfusion Reactions: No Reported Reaction Past Psychological History: No Psychological Hx Reported Smoking Status: Former smoker Past Alcohol Use History: None Reported Past Drug Use History: None Reported - Past Family History Father History Unknown: Yes Family Medical History: Congestive Heart Failure (CHF) Additional Family Medical History / Comment(s): at 68. Mother History Unknown: Yes Family Medical History: Hypertension Additional Family Medical History / Comment(s): Pulmonary hypertension. at 78. Medications and Allergies Home Medications Medication Instructions Recorded Confirmed Type Atorvastatin [Lipitor] 40 mg PO HS 06/18/20 12/12/21 History Folic Acid 1 mg PO DAILY@1200 #30 tab 12/23/20 12/12/21 Rx Thiamine [Vitamin B-1] 100 mg PO DAILY@1200 #30 tab 12/23/20 12/12/21 Rx Multivitamins, Thera [Multivitamin 1 tab PO DAILY@1200 01/09/21 12/12/21 History (formulary)] Triamcinolone 0.1% Ointment 1 applic TOPICAL BID 01/09/21 12/12/21 History [Kenalog 0.1% Ointment] Clopidogrel [Plavix] 75 mg PO DAILY #30 tab 04/26/21 12/12/21 Rx lisinopriL [Zestril] 20 mg PO DAILY #30 tab 04/26/21 12/12/21 Rx Magnesium Oxide [Mag-Ox] 400 mg PO TID 05/05/21 12/12/21 History Pantoprazole Sodium [Protonix] 40 mg PO BID 05/05/21 12/12/21 History Sucralfate [Carafate] 1 gm PO AC-TID 05/05/21 12/12/21 History Tamsulosin [Flomax] 0.4 mg PO DAILY 30 Days #30 cap 05/11/21 12/12/21 Rx Aspirin EC [Ecotrin Low Dose] 81 mg PO DAILY 05/28/21 12/12/21 History Famotidine [Pepcid] 20 mg PO BID 30 Days #60 tab 06/06/21 12/12/21 Rx Baclofen [Lioresal] 20 mg PO BID PRN 08/18/21 12/12/21 History Butalb/Acetaminophen/Caffeine 1 cap PO TID PRN 08/18/21 12/12/21 History [Fioricet 50-300-40 mg Capsule] DULoxetine HCL [Cymbalta] 60 mg PO BID 08/18/21 12/12/21 History Diclofenac Sodium [Voltaren] 75 mg PO BID 12/12/21 12/12/21 History Fludrocortisone [Florinef] 0.1 mg PO DAILY 12/12/21 12/12/21 History Gabapentin 300 mg PO BID 12/12/21 12/12/21 History Meloxicam [Mobic] 7.5 mg PO BID 12/12/21 12/12/21 History Metoprolol Tartrate [Lopressor] 50 mg PO TID 12/12/21 12/12/21 History SILVER sulfADIAZINE Cream 1 applic TOPICAL BID 12/12/21 12/12/21 History [Silvadene 1% Cream] Sulfamethoxazole/Trimethoprim 1 tab PO BID 12/12/21 12/12/21 History [Bactrim DS 800-160 mg] amLODIPine [Norvasc] 5 mg PO DAILY 12/12/21 12/12/21 History metFORMIN HCL [Glucophage] 500 mg PO BID 12/12/21 12/12/21 History Allergies Allergy/AdvReac Type Severity Reaction Status Date / Time cephalexin monohydrate Allergy Anaphylaxis Verified 12/12/21 14:10 [From Keflex] Cephalosporins Allergy Anaphylaxis Verified 12/12/21 14:10 Penicillins Allergy Anaphylaxis Verified 12/12/21 14:10 Physical Exam Vitals: Vital Signs Temp Pulse Resp BP Pulse Ox 12/13/21 14:02 98.6 F 66 16 156/88 98 12/13/21 10:00 60 18 111/43 98 12/13/21 07:35 97.1 F L 56 L 18 122/65 96 12/13/21 06:00 58 L 12 111/60 12/13/21 05:00 57 L 14 108/66 12/13/21 04:00 60 11 L 115/79 12/13/21 03:00 59 L 14 119/70 12/13/21 02:00 55 L 11 L 126/83 12/13/21 01:00 56 L 14 119/65 12/12/21 23:00 56 L 16 102/69 97 12/12/21 20:00 57 L 16 106/67 98 12/12/21 19:22 62 16 108/67 97 12/12/21 18:16 58 L 18 117/81 96 12/12/21 17:17 64 18 107/76 97 12/12/21 15:21 56 L 18 118/62 95 12/12/21 14:38 56 L 18 107/63 95 Results CBC & Chem 7: 12/13/21 05:35 12/13/21 05:35 Labs: Abnormal Lab Results - Last 24 Hours (Table) 12/12/21 12/13/21 12/13/21 Range/Units 19:17 05:35 05:35 WBC 10.41 H (4.50-10.00) X 10*3/uL RBC 4.31 L (4.40-5.60) X 10*6/uL Hgb 12.9 L (13.0-17.0) g/dL Immature Gran # 0.05 H (0.00-0.04) X 10*3/uL Neutrophils # 7.71 H (1.80-7.70) X 10*3/uL Carbon Dioxide 28.4 H (20.0-27.5) mmol/L BUN 27.2 H (9.0-27.0) mg/dL Est GFR (CKD-EPI)AfAm 58.2 L (60.0-200.0) Est GFR (CKD-EPI)NonAf 50.2 L (60.0-200.0) Glucose 120 H (70-110) mg/dL Ur Barbiturates Screen Detected H (NotDetected) U Benzodiazepines Scrn Detected H (NotDetected) Assessment and Plan Time with Patient: Greater than 30
[2021-12-13] MEDS: MAGNESIUM OXIDE 400 MG TAB PO SCH ×2 (17:52→21:28)
[2021-12-13] MEDS: SUCRALFATE 1 GM TAB PO SCH (17:52)
[2021-12-13] MEDS: TRIAMCINOLONE ACET 0.1% OINTMENT 15 GM TUBE TOPICAL SCH (21:28)
[2021-12-13] MEDS: FAMOTIDINE 20 MG TAB PO SCH (21:28)
[2021-12-13] MEDS: ATORVASTATIN 40 MG TAB PO SCH (21:28)
[2021-12-13] MEDS: DULoxetine HCL 60 MG CAPSULE.DR PO SCH (21:28)
--- NOTE | 2021-12-13 23:45 | P.CNNES ---
History of Present Illness Consult date: 12/13/21 Requesting physician: Gunjan Squires Reason for Consult: Acute encephalopathy History of Present Illness: Patient is a 71-year-old male who has been evaluated by neurological services multiple times in the past, who has history of chronic recurrent vertigo, history of microvascular decompression in the past (right side for vertigo), came to the hospital by ambulance yesterday at 11:31 AM for "a little confusion, little dizziness". Patient states that he has bad cases of vertigo. Patient states that yesterday he was confused, dizzy for about 3-4 hours. Couple friends came over and he was confused and they insisted him to go to the hospital. Patient states that recently he was hospitalized at [facility] after he passed out, fell face down and hit his head. He said he was walking from one room to another, when he had bad vertigo, just passed out. He does not know how long he was out for. Couple friends came over and found him there therefore he was taken to [facility]. He was hospitalized for 6 days, was at home only for couple days when he came back now. Patient had undergone microvascular decompression by Dr. Luis Moffett in 2014, when a surgical cloth was used for decompression. He had a repeated surgery in 2018 when a silicone was used by Dr. Ja Ferraro. Patient states that the first operation was complicated by spinal fluid leak for which he underwent another procedure. After the second decompression, he had incision site infection. Patient states that he was recently evaluated at [facility] by Dr. Damion Reese, and they recommended an MRI of the brain with contrast and an angiogram before they would consider microvascular decompression again. As per EMS flow sheet, when they arrive, found patient in kneeling in hallway, leaning on his wheelchair. Patient was awake, alert, confused. Patient mentioned that he fell out of bed. Patient was responding to his name, confused regarding time and place. Patient was noted to have bleeding from his nose, bleeding from right back of the hand, abrasion to the right forehead, abrasion to the right knee. Patient has altered mental status. Right hand was bandaged. EKG shows sinus rhythm. Patient's blood pressure the scene was 99/53, pulse rate 58, respiration 22, saturation 97%. Blood glucose was 107 mg/dL. Patient's blood test shows WBC 11.7 hemoglobin 13.4, platelets 265. PT/PTT normal. Sodium and potassium are normal, BUN 36, creatinine 1.76. AST 85, ALT 33. Troponin negative UA negative. Urine drug screen positive for barbiturates and benzodiazepines. Blood alcohol level negative. Patient had routine EEGs performed 3 times in the past, all of them showed mild encephalopathy. He had a 2.5 hour EEG performed 3 10/14/2021, which was read as normal. Patient has never been tried on any antiepileptic medication. Patient had VNG performed twice on 11/09/2016 and 02/19/2019, reviewed by Dr. Moreno, which were both times normal. Borderline saccades and patient difficulties with optokinetic nystagmus may suggest central nervous system dysfunction, but tracking was intact. No evidence of vestibulopathy. Unable to diagnosed BPPV due to patient being unable to perform dynamic position testing. Patient denies any tobacco alcohol use denies any marijuana use. Review of Systems Constitutional: Reports chronic headaches, Denies chills, Denies fever Eyes: denies blurred vision, denies pain Ears: deny: ear discharge, earache Ears, nose, mouth and throat: Denies mouth pain, Denies post-nasal drip, Denies sore throat Cardiovascular: Denies chest pain, Denies shortness of breath Respiratory: Denies cough Gastrointestinal: Denies abdominal pain, Denies diarrhea, Denies nausea, Denies vomiting Musculoskeletal: Denies myalgias Integumentary: Denies pruritus, Denies rash Neurological: Reports numbness, Reports paresthesias Psychiatric: Reports confusion Endocrine: Reports fatigue, Denies weight change Hematologic/Lymphatic: Reports easy bruising Past Medical History Past Medical History: Atrial Fibrillation, Diabetes Mellitus, GERD/Reflux, Hyperlipidemia, Hypertension, Osteoarthritis (OA), Pneumonia, Prostate Disorder Additional Past Medical History / Comment(s): Pt recently admitted to [facility] on 06/03/21 with fall/possible TIA. Other hx: FALLS, falls with fractuers, vertigo, surgeries for compressed brain stem at [facility], diet con trolled diabetes/neuropathy bilateral feet and occasionally in both hands fingertips, bilateral mastectomies d/t benign tumors, chronic low back pain, chronic headaches, BPH, ulcerative colitis, benign colon polyps History of Any Multi-Drug Resistant Organisms: MRSA Date of last positivie culture/infection: MRSA-03/11 MDRO Source:: Source unknown-MRSA Past Surgical History: Back Surgery, Breast Surgery, Orthopedic Surgery Additional Past Surgical History / Comment(s): Bilateral mastectomy with right sided lymp node removal, R knee cap removed d/t fracture, Back surgery for herniated disc, brain stem surgeries for decompression-for dizziness and a surgery for spinal fluid leakage, right ankle ORIF, bilateral wrist fractures SX Past Anesthesia/Blood Transfusion Reactions: No Reported Reaction Past Psychological History: No Psychological Hx Reported Smoking Status: Former smoker Past Alcohol Use History: None Reported Past Drug Use History: None Reported - Past Family History Father History Unknown: Yes Family Medical History: Congestive Heart Failure (CHF) Additional Family Medical History / Comment(s): at 68. Mother History Unknown: Yes Family Medical History: Hypertension Additional Family Medical History / Comment(s): Pulmonary hypertension. at 78. Medications and Allergies Home Medications Medication Instructions Recorded Confirmed Type Atorvastatin [Lipitor] 40 mg PO HS 06/18/20 12/12/21 History Folic Acid 1 mg PO DAILY@1200 #30 tab 12/23/20 12/12/21 Rx Thiamine [Vitamin B-1] 100 mg PO DAILY@1200 #30 tab 12/23/20 12/12/21 Rx Multivitamins, Thera [Multivitamin 1 tab PO DAILY@1200 01/09/21 12/12/21 History (formulary)] Triamcinolone 0.1% Ointment 1 applic TOPICAL BID 01/09/21 12/12/21 History [Kenalog 0.1% Ointment] Clopidogrel [Plavix] 75 mg PO DAILY #30 tab 04/26/21 12/12/21 Rx lisinopriL [Zestril] 20 mg PO DAILY #30 tab 04/26/21 12/12/21 Rx Magnesium Oxide [Mag-Ox] 400 mg PO TID 05/05/21 12/12/21 History Pantoprazole Sodium [Protonix] 40 mg PO BID 05/05/21 12/12/21 History Sucralfate [Carafate] 1 gm PO AC-TID 05/05/21 12/12/21 History Tamsulosin [Flomax] 0.4 mg PO DAILY 30 Days #30 cap 05/11/21 12/12/21 Rx Aspirin EC [Ecotrin Low Dose] 81 mg PO DAILY 05/28/21 12/12/21 History Famotidine [Pepcid] 20 mg PO BID 30 Days #60 tab 06/06/21 12/12/21 Rx Baclofen [Lioresal] 20 mg PO BID PRN 08/18/21 12/12/21 History Butalb/Acetaminophen/Caffeine 1 cap PO TID PRN 08/18/21 12/12/21 History [Fioricet 50-300-40 mg Capsule] DULoxetine HCL [Cymbalta] 60 mg PO BID 08/18/21 12/12/21 History Diclofenac Sodium [Voltaren] 75 mg PO BID 12/12/21 12/12/21 History Fludrocortisone [Florinef] 0.1 mg PO DAILY 12/12/21 12/12/21 History Gabapentin 300 mg PO BID 12/12/21 12/12/21 History Meloxicam [Mobic] 7.5 mg PO BID 12/12/21 12/12/21 History Metoprolol Tartrate [Lopressor] 50 mg PO TID 12/12/21 12/12/21 History SILVER sulfADIAZINE Cream 1 applic TOPICAL BID 12/12/21 12/12/21 History [Silvadene 1% Cream] Sulfamethoxazole/Trimethoprim 1 tab PO BID 12/12/21 12/12/21 History [Bactrim DS 800-160 mg] amLODIPine [Norvasc] 5 mg PO DAILY 12/12/21 12/12/21 History metFORMIN HCL [Glucophage] 500 mg PO BID 12/12/21 12/12/21 History traMADol HCL 50 mg PO TID PRN 12/13/21 12/13/21 History Allergies Allergy/AdvReac Type Severity Reaction Status Date / Time cephalexin monohydrate Allergy Anaphylaxis Verified 12/12/21 14:10 [From Keflex] Cephalosporins Allergy Anaphylaxis Verified 12/12/21 14:10 Penicillins Allergy Anaphylaxis Verified 12/12/21 14:10 Physical Examination - Vital Signs Vital Signs: Vital Signs Temp Pulse Resp BP Pulse Ox 12/13/21 10:00 60 18 111/43 98 12/13/21 07:35 97.1 F L 56 L 18 122/65 96 12/13/21 06:00 58 L 12 111/60 12/13/21 05:00 57 L 14 108/66 12/13/21 04:00 60 11 L 115/79 12/13/21 03:00 59 L 14 119/70 12/13/21 02:00 55 L 11 L 126/83 12/13/21 01:00 56 L 14 119/65 12/12/21 23:00 56 L 16 102/69 97 12/12/21 20:00 57 L 16 106/67 98 12/12/21 19:22 62 16 108/67 97 12/12/21 18:16 58 L 18 117/81 96 12/12/21 17:17 64 18 107/76 97 12/12/21 15:21 56 L 18 118/62 95 12/12/21 14:38 56 L 18 107/63 95 Patient is an elderly male, in no acute distress. Patient has some skin tear and bruise over his face from previous fall. Patient is alert awake oriented to time place and person. Speech and language functions are normal. Patient can name and repeat very well. No aphasia or dysarthria. Attention, concentration and fund of knowledge is adequate. On cranial nerve examination, pupils are equal, round and reacting to light, visual bishop are full on confrontation, with no neglect on double simultaneous depression. Extraocular muscles are intact with no nystagmus. Face is symmetric, tongue protrudes to the midline. Palatal elevation and sensation normal, hearing and shoulder shrug normal, facial sensation normal. Patient is edentulous. On muscle strength testing, there is no pronator drift and the strength is normal in arms and legs distally and proximally, except right hip flexion which is 4+, rest all normal. Deep tendon reflexes are almost absent and plantars are flat. Sensory to touch is equal with no neglect on double simultaneous stimulation. Cerebellar function showed no ataxia for [id number] testing. No dysdiadochokinesia. Slight dysmetria for [id number] testing on the left side. Tone and bulk of muscles normal. Gait deferred.. On general examination, there is no carotid bruit or murmur, S1-S2 audible. Chest is clear on consultation. Abdomen is soft nontender. No organomegaly, bowel sounds present. Peripheral pulses are present. No edema. Results - Laboratory Findings CBC and BMP: 12/13/21 05:35 12/13/21 05:35 Abnormal Lab Findings: Abnormal Labs 12/12/21 12/12/21 12/12/21 12:16 12:16 19:17 WBC 11.7 H RBC Hgb Immature Gran # Neutrophils # 9.0 H Chloride 97 L Carbon Dioxide BUN 36 H Creatinine 1.76 H Est GFR (CKD-EPI)AfAm Est GFR (CKD-EPI)NonAf Glucose 132 H AST 85 H Ur Barbiturates Screen Detected H U Benzodiazepines Scrn Detected H 12/13/21 12/13/21 05:35 05:35 WBC 10.41 H RBC 4.31 L Hgb 12.9 L Immature Gran # 0.05 H Neutrophils # 7.71 H Chloride Carbon Dioxide 28.4 H BUN 27.2 H Creatinine Est GFR (CKD-EPI)AfAm 58.2 L Est GFR (CKD-EPI)NonAf 50.2 L Glucose 120 H AST Ur Barbiturates Screen U Benzodiazepines Scrn Assessment and Plan Assessment: * Recurrent episodes of transient encephalopathy, unclear etiology, rule out complex partial seizures versus subclinical seizures, versus nonepileptic spells. * History of chronic recurrent vertigo, status post decompression surgery times twice * Recurrent falls * Chronic low back pain * Diabetes * Chronic headaches * Paroxysmal atrial fibrillation, not on anticoagulation due to recurrent falls. * Hypertension * Obesity Plan: * EEG in the morning. Patient does have multiple EEGs performed in the past, which were negative. * Patient was previously recommended to undergo prolonged EEG monitoring at epilepsy monitoring unit by Dr. Kareem Linder, but he has not had it done. * I would consider empirically starting him on antiepileptic medication to see if it prevents recurrent spells. Lamictal could be considered. * Patient is in the process of evaluation at [facility] for management of his recurrent vertigo. * Patient's B12 887 and folic acid > 20.0 on 04/21/2021. B6 was very borderline 6 (5-50). We will start vitamin B6 replacement. * Neurology will follow. Thank you for the consult. Time with Patient: Greater than 30
[2021-12-14] MEDS: SUCRALFATE 1 GM TAB PO SCH ×2 (08:19→12:41)
[2021-12-14] MEDS: DULoxetine HCL 60 MG CAPSULE.DR PO SCH (08:20)
[2021-12-14] MEDS: amLODIPine 5 MG TAB PO SCH (08:20)
[2021-12-14] MEDS: FAMOTIDINE 20 MG TAB PO SCH (08:20)
[2021-12-14] MEDS: CLOPIDOGREL 75 MG TAB PO SCH (08:20)
[2021-12-14] MEDS: MAGNESIUM OXIDE 400 MG TAB PO SCH (08:21)
[2021-12-14] MEDS: METOPROLOL TARTRATE 50 MG TAB PO SCH (08:21)
[2021-12-14] MEDS: TRIAMCINOLONE ACET 0.1% OINTMENT 15 GM TUBE TOPICAL SCH (08:21)
[2021-12-14] MEDS ORDERED: TAMSULOSIN 0.4 MG CAP.ER.24H PO SCH (09:00)
[2021-12-14] MEDS ORDERED: ASPIRIN 81 MG PO SCH (09:00)
[2021-12-14] MEDS ORDERED: PYRIDOXINE 50 MG TAB PO SCH (09:00)
--- NOTE | 2021-12-14 09:21 | P.PN ---
Subjective Progress Note Date: 12/14/21 This is a 71 year old male who is brought into the hospital by EMS with concern for altered mental status and confusion. Patient follows with Dr Rodriguez. Patient was found crawling down the hallway at his residence and alert x 1. Patient did hit his head with fall and as felt to have possible concussion he also had evidence of trauma to the face with acute epistaxis bilateral nares. Per patient he had fallen out of bed. Initial exam in the EC patient nonverbal, moaning and not following commands. Patient had CT brain and spine as well as facial CT complete negative for acute findings. Chest xray, pelvix and right hip xray reported as negative. Patient has history of atrial fibrillation, diabetes, DAYANA D, hyperlidipemia, hypertension, traumatic brain injury and has undergone multiple surgeries for compressed brain stem. He is not anticoagulated outpatient, does take an aspirin 81 mg daily. He has frequent falls requiring hospitalization. Patient is evaluated today in the EC pending bed on the floor, his mentation has improved and he is asking for discharge. Patient does have some mild leukocytosis and presented with acute kidney injury with creatinine of 1.76. Patient is on multiple drug classes of medications and will hold off on his gabapentin, mobic, baclofen, and fioricet for now. Patient is also taking bactrim currently. He was recently treated at outside hospital for acute kidney injury. Patients creatinine has improved down to 1.4 this morning with monitoring. Blood pressure has been running on the lower side 110/60s and his lisinopril is also being hold. Drug toxicology positive for benzodiazepines and barbituates. Patient is admitted for acute encephalopathy and concussion. We will monitor overnight and ask PT and OT to evaluate patient. Also check orthostatics. Neurology has been consulted for evaluation as well. 12/14/2021 Patient is evaluated today resting in bed. Reports diffuse headache states "the whole head." Neurology on consultation and recommending EEG today to rule out seizure activity as cause for recurrent encephalopathy with frequent falls and possible syncope. Possibly starting antieleptic medication. Patient was recently recommended for prolonged EEG outpatient. He does follow with Dr. Reese at [facility] for chronic vertigo and BPV which he has undergone decompression surgery in the past. Today he is alert x 3, vitals stable. He is asking for discharge today. Pending PT eval, pending labs from today. Follow up with neurology recommendations. Review of Systems Constitutional: Denied any fatigue denied any fever. Cardio vascular: denied any chest pain, palpitations Gastrointestinal: denied any nausea, vomiting, diarrhea Pulmonary: Denied any shortness of breath cough Neurologic denied any new focal deficits All inpatient medications were reviewed and appropriate changes in these medications as dictated in the interval history and assessment and plan. PHYSICAL EXAMINATION: GENERAL: The patient is alert and oriented x3, not in any acute distress. Well developed, well nourished. HEENT: Pupils are round and equally reacting to light. EOMI. No scleral icterus. No conjunctival pallor. Normocephalic, atraumatic. No pharyngeal erythema. No thyromegaly. Reports no tinnitus. CARDIOVASCULAR: S1 and S2 present. No murmurs, rubs, or gallops. PULMONARY: Chest is clear to auscultation, no wheezing or crackles. ABDOMEN: Soft, nontender, nondistended, normoactive bowel sounds. No palpable or ganomegaly. MUSCULOSKELETAL: No joint swelling or deformity. EXTREMITIES: No cyanosis, clubbing, or pedal edema. NEUROLOGICAL: Gross neurological examination did not reveal any focal deficits. SKIN: No rashes. Scab on nose bridge. Assessment and Plan Assessment Dizziness and lightheadedness with fall possible syncopal episodes possibly secondary to medication effect vs. seizure neurology on consultation Altered mental status secondary to metabolic encephalopathy possibly from medication effect, resolved now alert x3. Acute kidney injury mostly prerenal secondary to medication effect and poor oral intake will hold off on patients lisinopril, gabapentin, mobic, baclofen and fioricet. Leukocytosis reactive Paroxysmal Atrial fibrillation history, not on anticoagulation outpatient due to frequent falls Diabetes Mellitus with neuropathy Hypertension Hyperlipidemia History of degenerative joint disease Polypharmacy History of BPV status post decompression surgery follows with Dr Reese at [facility] Chronic pain with history of lumbar surgery Frequent falls Former smoker GI Prophylaxis DVT Prophylaxis Full Code Plan Patient will be going for EEG Continue to hold gabapentin, mobic, fioricet and baclofen for now Hold lisinopril has been started on amlodipine Neurology consultation PT/OT has been consulted Social work consulatation regarding safety and frequent admission for falls The impression and plan of care has been dictated by Ashley Trammell, Nurse Practitioner as directed. Dr. [place] MD I have performed a history and physical examination and medical decision making of this patient, discussed the same with the dictator, and agree with the dictators assessment and plan as written, documented as a scribe. Based on total visit time, I have performed more than 50% of this visit. Objective - Vital Signs Vital signs: Vital Signs Temp 98 F 12/14/21 07:45 Pulse 90 12/14/21 07:45 Resp 15 12/14/21 07:45 BP 142/84 12/14/21 07:45 Pulse Ox 96 12/14/21 07:45 FiO2 Intake & Output 12/13/21 12/14/21 12/14/21 18:59 06:59 18:59 Intake Total 1000 Output Total 800 450 Balance 200 -450 Intake: Oral 1000 Output: Urine 800 450 - Labs CBC & Chem 7: 12/13/21 05:35 12/13/21 05:35 Labs: Abnormal Lab Results - Last 24 Hours (Table) 12/13/21 12/13/21 Range/Units 05:35 05:35 WBC 10.41 H (4.50-10.00) X 10*3/uL RBC 4.31 L (4.40-5.60) X 10*6/uL Hgb 12.9 L (13.0-17.0) g/dL Immature Gran # 0.05 H (0.00-0.04) X 10*3/uL Neutrophils # 7.71 H (1.80-7.70) X 10*3/uL Carbon Dioxide 28.4 H (20.0-27.5) mmol/L BUN 27.2 H (9.0-27.0) mg/dL Est GFR (CKD-EPI)AfAm 58.2 L (60.0-200.0) Est GFR (CKD-EPI)NonAf 50.2 L (60.0-200.0) Glucose 120 H (70-110) mg/dL Assessment and Plan Time with Patient: Less than 30
[2021-12-14 09:49] LABS: African American GFR (CKD) 62.5 (60.0-200.0); Anion Gap 15.4 mmol/L (10.00-18.00); BUN/Creat Ratio 18.56 Ratio (12.00-20.00); Blood Urea Nitrogen 24.5 mg/dL (9.0-27.0); Calcium 9.3 mg/dL (8.7-10.3); Carbon Dioxide 23.9 mmol/L (20.0-27.5); Non-African American GFR(CKD) 53.9 (60.0-200.0); Potassium 4.3 mmol/L (3.5-5.5)
[2021-12-14] MEDS: FLUDROCORTISONE 0.1 MG TAB PO SCH (11:49)
[2021-12-14] MEDS ORDERED: THIAMINE 100 MG TAB PO SCH (12:00)
[2021-12-14 12:50] VITALS: BMI 29.0
[2021-12-14 13:08] VITALS: BP 131/81; PULSE 77; RESP 16; TEMP 98.4
[2021-12-14] MEDS ORDERED: lamoTRIgine 25 MG TAB PO SCH (13:30)
--- NOTE | 2021-12-15 23:58 | EEG ---
ELECTROENCEPHALOGRAM REPORT PREAMBLE: This is a 71-year-old male with recurrent episodes of encephalopathy. This study is performed to evaluate for any epileptiform activity. EEG FINDINGS: This is a 21-channel digital EEG recorded with video component, utilizing 10/20 international system with referential and bipolar montages. Background consists of well developed, well regulated moderate voltage activity in 8 hertz alpha. Background is posterior-dominant and reactive to eye opening and closing. Photic driving response was not seen. Different stages of sleep were not seen. No focal or generalized epileptiform activity was seen. IMPRESSION: This is a normal awake EEG. No focal, lateralized, or epileptiform activity was seen. MMODL / IJN: [id number] /
--- NOTE | 2021-12-16 08:35 | P.PN ---
Subjective Progress Note Date: 12/14/21 Patient was seen for a follow-up. Patient offers no new complaints. Patient is laying comfortably in bed. No further seizures or syncopal-like spells. No episodes of unresponsiveness. Objective - Vital Signs Vital signs: Vital Signs Temp 98.4 F 12/14/21 13:07 Pulse 77 12/14/21 13:07 Resp 16 12/14/21 13:07 BP 131/81 12/14/21 13:07 Pulse Ox 94 L 12/14/21 13:07 FiO2 Intake & Output 12/13/21 12/14/21 12/14/21 18:59 06:59 18:59 Intake Total 1000 Output Total 800 900 Balance 200 -900 Weight 99.79 kg Intake: Oral 1000 Output: Urine 800 900 Other: Voiding Method Urinal - Exam Examination is unchanged. - Labs CBC & Chem 7: 12/13/21 05:35 12/14/21 04:49 Labs: Abnormal Lab Results - Last 24 Hours (Table) 12/14/21 Range/Units 04:49 Est GFR (CKD-EPI)NonAf 53.9 L (60.0-200.0) Glucose 124 H (70-110) mg/dL Assessment and Plan Assessment: * Recurrent episodes of transient encephalopathy, unclear etiology, rule out complex partial seizures versus subclinical seizures, versus nonepileptic spells. * History of chronic recurrent vertigo, status post decompression surgery times twice * Recurrent falls * Chronic low back pain * Diabetes * Chronic headaches * Paroxysmal atrial fibrillation, not on anticoagulation due to recurrent falls. * Hypertension * Obesity Plan: * EEG was performed, which was normal awake EEG. No focal, lateralized or epileptiform activity was seen. * Patient was previously recommended to undergo prolonged EEG monitoring at epilepsy monitoring unit by Dr. Kareem Linder, but he has not had it done. * On reviewing records, it appears patient has been taking tramadol 50 mg 3 times a day. Tramadol can lower seizure threshold. At this point, I would just recommend stopping tramadol. If he continues to have episodes of encephalopathy, then may consider empiric treatment with AED. * Patient is in the process of evaluation at [facility] for management of his recurrent vertigo. * Patient's B12 887 and folic acid > 20.0 on 04/21/2021. B6 was very borderline 6 (5-50). We will start vitamin B6 replacement. * Neurologically clear for discharge.
--- NOTE | 2021-12-16 23:03 | P.DS ---
Providers Date of admission: 12/12/21 15:25 Attending physician: Isidro Pressley MD Consults: 12/12/21 15:23 Consult Physician Urgent Consulting Provider: Fang Ryan Consult Reason/Comments: acute encephalopathy Do you want consulting provider notified?: Yes Primary care physician: Damon Rodriguez [facility] Course: Diagnosis Dizziness and lightheadedness with fall possible syncopal episodes possibly sec ondary to medication effect vs. seizure Altered mental status secondary to metabolic encephalopathy possibly from medication effect, resolved now alert x3. Acute kidney injury mostly prerenal secondary to medication effect and poor oral intake will hold off on patients lisinopril, gabapentin, mobic, baclofen and fioricet. Leukocytosis reactive Paroxysmal Atrial fibrillation history, not on anticoagulation outpatient due to frequent falls Diabetes Mellitus with neuropathy Hypertension Hyperlipidemia History of degenerative joint disease Polypharmacy History of BPV status post decompression surgery follows with Dr Reese at [facility] Chronic pain with history of lumbar surgery Frequent falls Former smoker Full Code Discharge Disposition Patient is stable for discharge, guarded prognosis. Patient has been cleared by neurology, EEG is negative. Tramadol has been discontinued on discharge due to lowering seizure threshold. EEG negative for seizure activity. Patient recommended to follow up with his neurologist. Recommending to hold baclofen, fioricet, voltaren, gabapentin and tramadol on discharge and follow up with primary care provider in 1 to 2 days. Metformin and lisinopril are also on hold and patient is given script for repeat metabolic panel in 2 to 3 days. Total time taken in discharge planning greater than 35 minutes. Hospital Course This is a 71 year old male who is brought into the hospital by EMS with concern for altered mental status and confusion. Patient follows with Dr Rodriguez. Patient was found crawling down the hallway at his residence and alert x 1. Patient did hit his head with fall and as felt to have possible concussion he also had evidence of trauma to the face with acute epistaxis bilateral nares. Per patient he had fallen out of bed. Initial exam in the EC patient nonverbal, moaning and not following commands. Patient had CT brain and spine as well as facial CT complete negative for acute findings. Chest xray, pelvix and right hip xray reported as negative. 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 He is not anticoagulated outpatient, does take an aspirin 81 mg daily. He has frequent falls requiring hospitalization. Patient is evaluated today in the pending bed on the floor, his mentation has improved and he is asking for discharge. Patient does have some mild leukocytosis and presented with acute kidney injury with creatinine of 1.76. Patient is on multiple drug classes of medications and will hold off on his gabapentin, mobic, baclofen, and fioricet for now. He was recently treated at outside hospital for acute kidney injury. Blood pressure has been running on the lower side 110/60s and his lisinopril is also being hold. Drug toxicology positive for benzodiazepines and barbituates. Patient is admitted for acute encephalopathy and concussion. Patient is admitted for altered mental status and possible concussion. Neurology has been consulted as well as PT/OT. Diagnostics on admission Patient had CT brain and cspine showing no acute process, old postsurgical changes right lateral occipital region, no acute hermorrhage Face CT showing no acute post traumatic changes, possible acute maxillary sinusitis, minimal hemorrhage is not excluded. Chest xray showing no acute process Pelvis xray showing no acute fracture or dislocation Right knee xray negative for acute fracture EEG negative, showing no focal lateralized or epileptiform activity. Physical therapy evaluated the patient and patient is safe for discharge home. Patient is now alert x 3 and feels back to baseline. Neurology has cleared the patient with above mentioned recommendations. 12/14/2021 Patient is evaluated today resting in bed. His creatinine has improved down to 1.3. Blood pressure has been normotensive 120s systolic off the lisinopril and will continue to hold medication on discharge. He denies dizziness or lightheadedness. No chest pain, no shortness of breath, no fever or chills. He has been tolerating diet. Patient reports generalized pain to back neck which is chronic. He would like to be discharged home today. Lungs are clear, S1 S2 auscultated, abdomen is soft and nontender. No focal neurological deficits he is alert x 3. Mentation has improved holding medications. Recommend patient to follow up with his primary care to discuss. He does have multiple admissions regarding altered mental status possible from his polypharmacy. He is afebrile, heart rate 77, blood pressure 131/81, 94% room air. Please see medication reconciliation for a list of current medication. Thank you for allowing us to participate in the care of this patient. The impression and plan of care has been dictated by Ashley Trammell, Nurse Practitioner as directed. Dr. [place] MD I have performed a history and physical examination and medical decision making of this patient, discussed the same with the dictator, and agree with the dictators assessment and plan as written, documented as a scribe. Based on total visit time, I have performed more than 50% of this visit. Patient Condition at Discharge: Fair Plan - Discharge Summary New Discharge Prescriptions: New Acetaminophen Tab [Tylenol] 650 mg PO Q6HR PRN tab PRN Reason: Mild Pain Or Fever > 100.5 Pyridoxine [Vitamin B-6] 50 mg PO DAILY #30 tab Continue Folic Acid 1 mg PO DAILY@1200 #30 tab Thiamine [Vitamin B-1] 100 mg PO DAILY@1200 #30 tab Pantoprazole Sodium [Protonix] 40 mg PO BID Sucralfate [Carafate] 1 gm PO AC-TID Tamsulosin [Flomax] 0.4 mg PO DAILY 30 Days #30 cap Famotidine [Pepcid] 20 mg PO BID 30 Days #60 tab DULoxetine HCL [Cymbalta] 60 mg PO BID amLODIPine [Norvasc] 5 mg PO DAILY Fludrocortisone [Florinef] 0.1 mg PO DAILY Meloxicam [Mobic] 7.5 mg PO BID Metoprolol Tartrate [Lopressor] 50 mg PO TID Atorvastatin [Lipitor] 40 mg PO HS Triamcinolone 0.1% Ointment [Kenalog 0.1% Ointment] 1 applic TOPICAL BID Multivitamins, Thera [Multivitamin (formulary)] 1 tab PO DAILY@1200 Clopidogrel [Plavix] 75 mg PO DAILY #30 tab Magnesium Oxide [Mag-Ox] 400 mg PO TID Aspirin EC [Ecotrin Low Dose] 81 mg PO DAILY SILVER sulfADIAZINE Cream [Silvadene 1% Cream] 1 applic TOPICAL BID Discontinued lisinopriL [Zestril] 20 mg PO DAILY #30 tab Baclofen [Lioresal] 20 mg PO BID PRN PRN Reason: Muscle Pain Butalb/Acetaminophen/Caffeine [Fioricet 50-300-40 mg Capsule] 1 cap PO TID PRN PRN Reason: Migraine Headache Diclofenac Sodium [Voltaren] 75 mg PO BID metFORMIN HCL [Glucophage] 500 mg PO BID Gabapentin 300 mg PO BID Sulfamethoxazole/Trimethoprim [Bactrim DS 800-160 mg] 1 tab PO BID traMADol HCL 50 mg PO TID PRN PRN Reason: Pain Discharge Medication List Atorvastatin [Lipitor] 40 mg PO HS 06/18/20 [History] Folic Acid 1 mg PO DAILY@1200 #30 tab 12/23/20 [Rx] Thiamine [Vitamin B-1] 100 mg PO DAILY@1200 #30 tab 12/23/20 [Rx] Multivitamins, Thera [Multivitamin (formulary)] 1 tab PO DAILY@1200 01/09/21 [History] Triamcinolone 0.1% Ointment [Kenalog 0.1% Ointment] 1 applic TOPICAL BID 01/09/21 [History] Clopidogrel [Plavix] 75 mg PO DAILY #30 tab 04/26/21 [Rx] Magnesium Oxide [Mag-Ox] 400 mg PO TID 05/05/21 [History] Pantoprazole Sodium [Protonix] 40 mg PO BID 05/05/21 [History] Sucralfate [Carafate] 1 gm PO AC-TID 05/05/21 [History] Tamsulosin [Flomax] 0.4 mg PO DAILY 30 Days #30 cap 05/11/21 [Rx] Aspirin EC [Ecotrin Low Dose] 81 mg PO DAILY 05/28/21 [History] Famotidine [Pepcid] 20 mg PO BID 30 Days #60 tab 06/06/21 [Rx] DULoxetine HCL [Cymbalta] 60 mg PO BID 08/18/21 [History] Fludrocortisone [Florinef] 0.1 mg PO DAILY 12/12/21 [History] Meloxicam [Mobic] 7.5 mg PO BID 12/12/21 [History] Metoprolol Tartrate [Lopressor] 50 mg PO TID 12/12/21 [History] SILVER sulfADIAZINE Cream [Silvadene 1% Cream] 1 applic TOPICAL BID 12/12/21 [History] amLODIPine [Norvasc] 5 mg PO DAILY 12/12/21 [History] Acetaminophen Tab [Tylenol] 650 mg PO Q6HR PRN tab 12/14/21 [Rx] Pyridoxine [Vitamin B-6] 50 mg PO DAILY #30 tab 12/14/21 [Rx] Follow up Appointment(s)/Referral(s): Damon Rodriguez MD [Primary Care Provider] - 12/16/21 4:30 pm [facility], [NON-STAFF] - 1 Week Ambulatory/Diagnostic Orders: Basic Metabolic Panel [LAB.AMB] Time Frame: 2 Days, Location: None Selected Magnesium [LAB.AMB] Time Frame: 2 Days, Location: None Selected Patient Instructions/Handouts: Encephalopathy (DC) Activity/Diet/Wound Care/Special Instructions: Please follow up with your neurologist on discharge Medications have been placed on hold Follow up with PCP Dr Rodriguez in 1 to 2 days to discuss medications. No evidence for epileptiform acitivity on EEG Metformin on hold due to elevated creatinine recommend to continue blood glucose monitoring at home and follow up with Dr Rodriguez in 1 to 2 days. Tramadol has been discontinued as this can lower seizure threshold recommend to stop this medication. Repeat BMP in 2 to 3 days outpatient Discharge Disposition: HOME WITH HOME HEALTH SERVICES
== END 2021-12-14 15:18 | disposition home health service (06) | DRG 92 ==
LOC: EC 11:31 → 5NMEDONC 15:25
PROVIDERS: ADMIT Internal Medicine; ATTEND Internal Medicine
DX: G92.8 Other toxic encephalopathy (principal); N17.9 Acute kidney failure, unspecified; S06.0X9A Concussion with loss of consciousness of unspecified duration, initial encounter; E66.9 Obesity, unspecified; I48.0 Paroxysmal atrial fibrillation; R29.6 Repeated falls; Z68.29 Body mass index [BMI] 29.0-29.9, adult; I10 Essential (primary) hypertension; E78.5 Hyperlipidemia, unspecified; M19.90 Unspecified osteoarthritis, unspecified site; N40.0 Benign prostatic hyperplasia without lower urinary tract symptoms; G89.29 Other chronic pain; H55.00 Unspecified nystagmus; S00.81XA Abrasion of other part of head, initial encounter; S80.211A Abrasion, right knee, initial encounter; E11.42 Type 2 diabetes mellitus with diabetic polyneuropathy; M54.50 Low back pain, unspecified; R04.0 Epistaxis; R40.2351 Coma scale, best motor response, localizes pain, in the field [EMT or ambulance]; R40.2141 Coma scale, eyes open, spontaneous, in the field [EMT or ambulance]; R40.2241 Coma scale, best verbal response, confused conversation, in the field [EMT or ambulance]; W06.XXXA Fall from bed, initial encounter; Y92.003 Bedroom of unspecified non-institutional (private) residence as the place of occurrence of the external cause; T46.4X5A Adverse effect of angiotensin-converting-enzyme inhibitors, initial encounter; T42.6X5A Adverse effect of other antiepileptic and sedative-hypnotic drugs, initial encounter; T39.395A Adverse effect of other nonsteroidal anti-inflammatory drugs [NSAID], initial encounter; T42.8X5A Adverse effect of antiparkinsonism drugs and other central muscle-tone depressants, initial encounter; T39.1X5A Adverse effect of 4-Aminophenol derivatives, initial encounter; Z86.14 Personal history of Methicillin resistant Staphylococcus aureus infection; Z90.13 Acquired absence of bilateral breasts and nipples; Z87.820 Personal history of traumatic brain injury; Z79.02 Long term (current) use of antithrombotics/antiplatelets; Z79.1 Long term (current) use of non-steroidal anti-inflammatories (NSAID); Z79.52 Long term (current) use of systemic steroids; Z79.82 Long term (current) use of aspirin; Z79.84 Long term (current) use of oral hypoglycemic drugs; Z79.899 Other long term (current) drug therapy; Z87.891 Personal history of nicotine dependence; Z88.1 Allergy status to other antibiotic agents; Z88.0 Allergy status to penicillin
CPT/HCPCS: 36415; 70450; 70486; 71046; 72125; 72170; 80048; 80053; 80306; 80320; 81003; 84484; 85025; 85610; 85730; 93005; 95816; 99285

== ENCOUNTER 2021-12-19 20:36 | Inpatient (IN) | payer MEDICARE ==
[2021-12-19] MEDS ORDERED: SODIUM CHLORIDE 0.9% 1,000 ML IV STA (20:40)
[2021-12-19] MEDS ORDERED: SODIUM CHLORIDE 0.9% 500 ML 500 ML IV ONE (20:54)
--- NOTE | 2021-12-19 21:20 | ED ---
General Adult HPI - General Stated complaint: Bradycardia Time Seen by Provider: 12/19/21 20:38 Source: patient, EMS, RN notes reviewed, old records reviewed Limitations: altered mental status - History of Present Illness Initial comments: 71-year-old male presents for evaluation of confusion, bradycardia. Patient had been seen by paramedics earlier in the day with chief complaint of lightheadedness and vertigo. He had stable vitals and did not want to be transported at that time. A second call was made to paramedics and the patient was found to be bradycardic in the 30s. There was concern about his medications and whether or not he was taking his medications appropriately. He was recently admitted to the hospital. Patient does complain of lightheadedness although the history is somewhat limited. - Related Data Home Medications Medication Instructions Recorded Confirmed Atorvastatin [Lipitor] 40 mg PO HS 06/18/20 12/12/21 Multivitamins, Thera [Multivitamin 1 tab PO DAILY@1200 01/09/21 12/12/21 (formulary)] Triamcinolone 0.1% Ointment 1 applic TOPICAL BID 01/09/21 12/12/21 [Kenalog 0.1% Ointment] Magnesium Oxide [Mag-Ox] 400 mg PO TID 05/05/21 12/12/21 Pantoprazole Sodium [Protonix] 40 mg PO BID 05/05/21 12/12/21 Sucralfate [Carafate] 1 gm PO AC-TID 05/05/21 12/12/21 Aspirin EC [Ecotrin Low Dose] 81 mg PO DAILY 05/28/21 12/12/21 DULoxetine HCL [Cymbalta] 60 mg PO BID 08/18/21 12/12/21 Fludrocortisone [Florinef] 0.1 mg PO DAILY 12/12/21 12/12/21 Meloxicam [Mobic] 7.5 mg PO BID 12/12/21 12/12/21 Metoprolol Tartrate [Lopressor] 50 mg PO TID 12/12/21 12/12/21 SILVER sulfADIAZINE Cream 1 applic TOPICAL BID 12/12/21 12/12/21 [Silvadene 1% Cream] amLODIPine [Norvasc] 5 mg PO DAILY 12/12/21 12/12/21 Previous Rx's Medication Instructions Recorded Folic Acid 1 mg PO DAILY@1200 #30 tab 12/23/20 Thiamine [Vitamin B-1] 100 mg PO DAILY@1200 #30 tab 12/23/20 Clopidogrel [Plavix] 75 mg PO DAILY #30 tab 04/26/21 Tamsulosin [Flomax] 0.4 mg PO DAILY 30 Days #30 cap 05/11/21 Famotidine [Pepcid] 20 mg PO BID 30 Days #60 tab 06/06/21 Acetaminophen Tab [Tylenol] 650 mg PO Q6HR PRN tab 12/14/21 Pyridoxine [Vitamin B-6] 50 mg PO DAILY #30 tab 12/14/21 Allergies Allergy/AdvReac Type Severity Reaction Status Date / Time cephalexin monohydrate Allergy Anaphylaxis Verified 12/12/21 14:10 [From Keflex] Cephalosporins Allergy Anaphylaxis Verified 12/12/21 14:10 Penicillins Allergy Anaphylaxis Verified 12/12/21 14:10 Review of Systems ROS Statement: Those systems with pertinent positive or pertinent negative responses have been documented in the HPI. ROS Other: All systems not noted in ROS Statement are negative. Past Medical History Past Medical History: Atrial Fibrillation, Diabetes Mellitus, GERD/Reflux, Hyperlipidemia, Hypertension, Osteoarthritis (OA), Pneumonia, Prostate Disorder Additional Past Medical History / Comment(s): Pt recently admitted to [facility] on 06/03/21 with fall/possible TIA. Other hx: FALLS, falls with fractuers, vertigo, surgeries for compressed brain stem at [facility], diet controlled diabetes/neuropathy bilateral feet and occasionally in both hands fingertips, bilateral mastectomies d/t benign tumors, chronic low back pain, chronic headaches, BPH, ulcerative colitis, benign colon polyps History of Any Multi-Drug Resistant Organisms: MRSA Date of last positivie culture/infection: MRSA-03/11 MDRO Source:: Source unknown-MRSA Past Surgical History: Back Surgery, Breast Surgery, Orthopedic Surgery Additional Past Surgical History / Comment(s): Bilateral mastectomy with right sided lymp node removal, R knee cap removed d/t fracture, Back surgery for herniated disc, brain stem surgeries for decompression-for dizziness and a surgery for spinal fluid leakage, right ankle ORIF, bilateral wrist fractures SX Past Anesthesia/Blood Transfusion Reactions: No Reported Reaction Past Psychological History: No Psychological Hx Reported Smoking Status: Former smoker Past Alcohol Use History: None Reported Past Drug Use History: None Reported - Past Family History Father History Unknown: Yes Family Medical History: Congestive Heart Failure (CHF) Additional Family Medical History / Comment(s): at 68. Mother History Unknown: Yes Family Medical History: Hypertension Additional Family Medical History / Comment(s): Pulmonary hypertension. at 78. General Exam General appearance: in no apparent distress, lethargic Head exam: Present: atraumatic, normocephalic Eye exam: Present: normal appearance, PERRL ENT exam: Present: mucous membranes dry Respiratory exam: Present: normal lung sounds bilaterally. Absent: respiratory distress, wheezes Cardiovascular Exam: Present: normal rhythm, bradycardia GI/Abdominal exam: Present: soft. Absent: distended, tenderness, guarding Extremities exam: Present: normal inspection, normal capillary refill. Absent: pedal edema Neurological exam: Present: alert (Able to answer questions appropriately slow to respond). Absent: motor sensory deficit Skin exam: Present: warm, diaphoretic, pallor Course Vital Signs 12/19/21 12/19/21 12/19/21 21:19 21:25 21:36 Temperature 97.6 F Pulse Rate 33 L 35 L Respiratory 16 Rate Blood Pressure 83/54 103/59 O2 Sat by Pulse 94 L 95 Oximetry Fraction of 98 Inspired Oxygen (FIO2) 12/19/21 12/19/21 22:34 22:47 Temperature Pulse Rate 51 L 56 L Respiratory 16 Rate Blood Pressure 70/41 75/46 O2 Sat by Pulse 92 L 92 L Oximetry Fraction of Inspired Oxygen (FIO2) EKG Findings - EKG Comments: EKG Findings:: EKG: Junctional rhythm rate of 32, QRS duration 98, QTC [address] segment elevation, narrow complex. Repeat EKG at 2258, atrial fibrillation with slow ventricular response, narrow complex, ventricular rate of 58, QRS duration 102, QTC [address] segment elevation. Medical Decision Making - Medical Decision Making 71-year-old male with presenting with lightheadedness, found to be significantly bradycardic. Initially in a junctional rhythm. Initial blood pressure 100 systolic. Patient does have some low blood pressures requiring pressor support. He started on a dopamine drip. He is unable to give a detailed history but there was concern by paramedics that he had inappropriately taken his medication which does include metoprolol 50 mg and amlodipine. His laboratory testing reveals anemia, normal white blood cell count, normal potassium, mild hypomagnesemia which is replaced. Negative troponin. I discussed case with Dr. Hernandez, and Dr. Mckeon as well as Damon cunningham for [facility]. - Lab Data Result diagrams: 12/19/21 21:15 12/19/21 21:15 Lab Results 12/19/21 12/19/21 12/19/21 Range/Units 21:15 21:15 21:15 WBC 8.7 (3.8-10.6) k/uL RBC 3.30 L (4.30-5.90) m/uL Hgb 10.0 L D (13.0-17.5) gm/dL Hct 31.4 L (39.0-53.0) % MCV 95.1 (80.0-100.0) fL MCH 30.4 (25.0-35.0) pg MCHC 31.9 (31.0-37.0) g/dL RDW 14.4 (11.5-15.5) % Plt Count 176 (150-450) k/uL MPV 8.1 Neutrophils % 68 % Lymphocytes % 23 % Monocytes % 5 % Eosinophils % 2 % Basophils % 0 % Neutrophils # 5.9 (1.3-7.7) k/uL Lymphocytes # 2.0 (1.0-4.8) k/uL Monocytes # 0.4 (0-1.0) k/uL Eosinophils # 0.1 (0-0.7) k/uL Basophils # 0.0 (0-0.2) k/uL PT 11.2 (9.0-12.0) sec INR 1.0 (<1.2) APTT 28.7 (22.0-30.0) sec Sodium 136 L (137-145) mmol/L Potassium 5.1 (3.5-5.1) mmol/L Chloride 105 (98-107) mmol/L Carbon Dioxide 22 (22-30) mmol/L Anion Gap 9 mmol/L BUN 43 H (9-20) mg/dL Creatinine 1.70 H (0.66-1.25) mg/dL Est GFR (CKD-EPI)AfAm 46 (>60 ml/min/1.73 sqM) Est GFR (CKD-EPI)NonAf 40 (>60 ml/min/1.73 sqM) Glucose 116 H (74-99) mg/dL Calcium 8.1 L (8.4-10.2) mg/dL Magnesium 1.5 L (1.6-2.3) mg/dL Total Bilirubin 0.3 (0.2-1.3) mg/dL AST 17 (17-59) U/L ALT 15 (4-49) U/L Alkaline Phosphatase 67 (38-126) U/L Troponin I (0.000-0.034) ng/mL Total Protein 5.2 L (6.3-8.2) g/dL Albumin 3.2 L (3.5-5.0) g/dL 12/19/21 Range/Units 21:15 WBC (3.8-10.6) k/uL RBC (4.30-5.90) m/uL Hgb (13.0-17.5) gm/dL Hct (39.0-53.0) % MCV (80.0-100.0) fL MCH (25.0-35.0) pg MCHC (31.0-37.0) g/dL RDW (11.5-15.5) % Plt Count (150-450) k/uL MPV Neutrophils % % Lymphocytes % % Monocytes % % Eosinophils % % Basophils % % Neutrophils # (1.3-7.7) k/uL Lymphocytes # (1.0-4.8) k/uL Monocytes # (0-1.0) k/uL Eosinophils # (0-0.7) k/uL Basophils # (0-0.2) k/uL PT (9.0-12.0) sec INR (<1.2) APTT (22.0-30.0) sec Sodium (137-145) mmol/L Potassium (3.5-5.1) mmol/L Chloride (98-107) mmol/L Carbon Dioxide (22-30) mmol/L Anion Gap mmol/L BUN (9-20) mg/dL Creatinine (0.66-1.25) mg/dL Est GFR (CKD-EPI)AfAm (>60 ml/min/1.73 sqM) Est GFR (CKD-EPI)NonAf (>60 ml/min/1.73 sqM) Glucose (74-99) mg/dL Calcium (8.4-10.2) mg/dL Magnesium (1.6-2.3) mg/dL Total Bilirubin (0.2-1.3) mg/dL AST (17-59) U/L ALT (4-49) U/L Alkaline Phosphatase (38-126) U/L Troponin I <0.012 (0.000-0.034) ng/mL Total Protein (6.3-8.2) g/dL Albumin (3.5-5.0) g/dL Critical Care Time Critical Care Time: Yes Total Critical Care Time: 35 Disposition Clinical Impression: Accidental overdose, Confusion, Dehydration, Hypomagnesemia, Bradycardia Disposition: ADMITTED IP TO THIS [facility] Condition: Serious Is patient prescribed a controlled substance at d/c from ED?: No Time of Disposition: 23:03
[2021-12-19 21:25] LABS: Basophils % (A) 0 %; Eosinophils # (A) 0.1 k/uL (0-0.7); Eosinophils % (A) 2 %; HCT 31.4 % (39.0-53.0); Lymphocytes % (A) 23 %; MCH 30.4 pg (25.0-35.0); MCHC 31.9 g/dL (31.0-37.0); MCV 95.1 fL (80.0-100.0); Mean Platelet Volume 8.1; Monocytes # (A) 0.4 k/uL (0-1.0); Monocytes % (A) 5 %; Neutrophils # (A) 5.9 k/uL (1.3-7.7); Neutrophils % (A) 68 %; Platelet Count 176 k/uL (150-450); RDW 14.4 % (11.5-15.5); WBC 8.7 k/uL (3.8-10.6)
[2021-12-19] MEDS: DOPamine DRIP 800 MG in DEXTROSE/WATER 1 250ML.BAG IV SCH (21:33)
[2021-12-19 21:34] LABS: Albumin 3.2 g/dL (3.5-5.0); Calcium 8.1 mg/dL (8.4-10.2); Magnesium 1.5 mg/dL (1.6-2.3); Potassium 5.1 mmol/L (3.5-5.1); Total Bilirubin 0.3 mg/dL (0.2-1.3); Total Protein 5.2 g/dL (6.3-8.2)
[2021-12-19 21:36] LABS: Prothrombin Time 11.2 sec (9.0-12.0)
[2021-12-19 21:37] LABS: Partial Thromboplastin Time 28.7 sec (22.0-30.0)
--- NOTE | 2021-12-19 21:39 | XR ---
EXAMINATION TYPE: XR chest 1V portable DATE OF EXAM: 12/19/2021 COMPARISON: 12/12/2021 HISTORY: Chest pain Dizziness TECHNIQUE: FINDINGS: There is no heart failure nor confluent pneumonic infiltrate. There is mild linear density at the left lung base. There are no hilar masses. Bony thorax is intact. There are chest leads. IMPRESSION: Mild subsegmental atelectasis left lung base without change. Normal heart.
[2021-12-19] MEDS: MAGNESIUM SULFATE-D5W PMX 1 GM in DEXTROSE/WATER 1 100ML.BAG IVPB SCH ×2 (22:18→23:15)
[2021-12-19] MEDS ORDERED: NALOXONE 0.4 MG/ML 1 ML VIAL IV PRN (22:23)
[2021-12-19] MEDS ORDERED: HYDROCORTISONE SUCCINATE 100 MG/2 ML VIAL IV STA (22:57)
[2021-12-19] MEDS ORDERED: CALCIUM GLUCONATE IN NACL 1 GM in SALINE 1 100ML.BAG IVPB ONE (23:00)
[2021-12-19 23:48] LABS: Glucose,Whole Blood 184 mg/dL (70-110)
[2021-12-19] MEDS ORDERED: SODIUM CHLORIDE 0.9% 1,000 ML IV ONE (23:56)
[2021-12-19] MEDS: SODIUM CHLORIDE 0.9% 1,000 ML IV SCH (23:57)
[2021-12-20] MEDS: NOREPINEPHRINE 4 MG in SODIUM CHLORIDE 0.9% 250 ML IV SCH ×3 (01:10→15:00)
[2021-12-20] MEDS: ACETAMINOPHEN TAB 325 MG TAB PO PRN (01:25)
[2021-12-20] MEDS: DOPamine DRIP 800 MG in DEXTROSE/WATER 1 250ML.BAG IV SCH ×3 (03:35→16:45)
[2021-12-20 05:02] LABS: Calcium 9.3 mg/dL (8.4-10.2); Potassium 5.2 mmol/L (3.5-5.1)
[2021-12-20 05:15] LABS: Basophils # (A) 0.1 k/uL (0-0.2); Basophils % (A) 0 %; Eosinophils # (A) 0.1 k/uL (0-0.7); Eosinophils % (A) 0 %; HCT 41.4 % (39.0-53.0); Lymphocytes # (A) 1.5 k/uL (1.0-4.8); Lymphocytes % (A) 8 %; MCHC 31.7 g/dL (31.0-37.0); MCV 94.6 fL (80.0-100.0); Mean Platelet Volume 9.1; Monocytes # (A) 1.1 k/uL (0-1.0); Monocytes % (A) 6 %; Neutrophils # (A) 15.6 k/uL (1.3-7.7); Neutrophils % (A) 84 %; Platelet Count 264 k/uL (150-450); RBC 4.38 m/uL (4.30-5.90); WBC 18.5 k/uL (3.8-10.6)
[2021-12-20 05:24] LABS: HGB 13.1 gm/dL (13.0-17.5)
[2021-12-20] MEDS ORDERED: Magnesium Replacement Protocol 1 EACH MISC MISCELLANE PRN (05:38)
[2021-12-20] MEDS: MAGNESIUM SULFATE-D5W PMX 1 GM in DEXTROSE/WATER 1 100ML.BAG IVPB SCH ×2 (05:56→06:49)
[2021-12-20 06:56] LABS: Glucose,Whole Blood 201 mg/dL (70-110)
--- NOTE | 2021-12-20 07:56 | P.CRDCN ---
History of Present Illness History of present illness: HISTORY OF PRESENT ILLNESS: This is a 71-year-old male with a past medical history significant for diabetes, hypertension, hyperlipidemia, chronic vertigo, coronary artery disease with 50% lesion of LAD, and paroxysmal atrial fibrillation not on anticoagulation for unclear reason. Patient has had multiple admissions for lightheadedness and bradycardia. He additionally has vertigo and is being evaluated at [facility] for possible spine stimulator. He states he had been feeling fine however has not been eating the last 3 days. He states yesterday 12/19 he started feeling lightheaded and describes it as vertigo however describes more of a feeling like he was going to pass out sensation. EMS was called and recommended patient go to emergency department. He did have a syncopal episode and is still having some pain from his fall. EKG on presentation shows atrial fibrillation with heart rate in the 30s. He was placed on dopamine drip with heart rate 49-51 fairly consistently. Intermittently has been in sinus bradycardia. There is concern about possible confusion taking his medications however a home nurse comes and prepares medications for him. His metoprolol has been held. Workup shows initial hemoglobin 10.0 however likely lab error repeat 13.1, creatinine 1.7 and up to 1.9, magnesium 1.5, potassium 5.1, today potassium 5.2, troponin less than 0.012, albumin 3.2. * Most recent echocardiogram obtained in March 2021 revealed ejection fraction 45-50% with trivial pericardial effusion present. Moderate concentric left ventricular hypertrophy. * Cardiac catheterization history: March [address] Hernandez revealing mild coronary artery disease. 50% mid LAD lesion with iFR normal at 0.97. Normal left-sided filling pressures. Medical management was recommended. REVIEW OF SYSTEMS: At the time of my exam: CONSTITUTIONAL: Denies fever or chills. HEENT: Denies blurred vision, vision changes, or eye pain. Denies hemoptysis CARDIOVASCULAR: Denies chest pain. Denies orthopnea. Denies PND. Denies palpitations RESPIRATORY: Denies shortness of breath. GASTROINTESTINAL: Denies abdominal pain. Denies nausea or vomiting. HEMATOLOGIC: Denies bleeding disorders. GENITOURINARY: Denies any blood in urine. SKIN: Denies pruitis. Denies rash. PHYSICAL EXAM: VITAL SIGNS: Reviewed. GENERAL: Well-developed in no acute distress. Poor recall of medical history HEENT: Head is normocephalic. Pupils are equal, round. Sclerae anicteric. Mucous membranes of the mouth are moist. Neck supple. No JVD or thyromegaly LUNGS: Respirations even and unlabored. Lungs diminished with scattered rhonchi. Congested cough noted. HEART: [place] rate and regular rhythm. S1 and S2 heard. ABDOMEN: Soft. Nondistended. Nontender. EXTREMITIES: Normal range of motion. No clubbing or cyanosis. Peripheral pulses intact. Trace lower extremity edema NEUROLOGIC: Awake and alert. Oriented x 3. ASSESSMENT: Syncope concerning for cardiogenic source related to bradycardia Sinus bradycardia, intermittent Afib Hypotension, currently on low dose pressors History of hypertension Hyperlipidemia Chronic vertigo Coronary artery disease with 50% lesion of LAD Paroxysmal atrial fibrillation not on anticoagulation for unknown reason PLAN: Patient with multiple prior admissions for syncope and additionally does have vertigo however current presentation concerning for cardiogenic syncope with significant bradycardia noted. Borderline hyperkalemia however does not appear significant enough to be causing symptoms. Wean dopamine as able and hold metoprolol. If patient remains bradycardic despite holding metoprolol and correction of any metabolic etiologies patient may need pacemaker. Check 2-D echo for left ventricular EF. Continue supportive care. Further ev aluation of possible etiologies of hypotension, rule out sepsis. Further recommendations to follow. Unclear why patient is on aspirin and Plavix and anticoagulation has been held in the past secondary to multiple falls. Reassess and may consider NOAC. Past Medical History Past Medical History: Atrial Fibrillation, Diabetes Mellitus, GERD/Reflux, Hyperlipidemia, Hypertension, Osteoarthritis (OA), Pneumonia, Prostate Disorder Additional Past Medical History / Comment(s): Pt recently admitted to [facility] on 06/03/21 with fall/possible TIA. Other hx: FALLS, falls with fractuers, vertigo, surgeries for compressed brain stem at [facility], diet controlled diabetes/neuropathy bilateral feet and occasionally in both hands fingertips, bilateral mastectomies d/t benign tumors, chronic low back pain, chronic headaches, BPH, ulcerative colitis, benign colon polyps History of Any Multi-Drug Resistant Organisms: MRSA Date of last positivie culture/infection: MRSA-03/11 MDRO Source:: Source unknown-MRSA Past Surgical History: Back Surgery, Breast Surgery, Orthopedic Surgery Additional Past Surgical History / Comment(s): Bilateral mastectomy with right sided lymp node removal, R knee cap removed d/t fracture, Back surgery for herniated disc, brain stem surgeries for decompression-for dizziness and a surgery for spinal fluid leakage, right ankle ORIF, bilateral wrist fractures SX Past Anesthesia/Blood Transfusion Reactions: No Reported Reaction Past Psychological History: No Psychological Hx Reported Additional Psychological History / Comment(s): Pt resides in an apartment alone. He uses a walker to get around in his bathroom but otherwise is mostly in a wheelchair. He does not drive. He has friends that take him places. He has VNA. He has a cleaning lady. He makes microwavable meals. Smoking Status: Former smoker Past Alcohol Use History: None Reported Additional Past Alcohol Use History / Comment(s): STARTED SMOKING AT AGE 18, S MOKE A PIPE GOES THRU A PACK OF PIPE TOBACCO/DAY quit smoking in 2005 Past Drug Use History: None Reported - Past Family History Father History Unknown: Yes Family Medical History: Congestive Heart Failure (CHF) Additional Family Medical History / Comment(s): at 68. Mother History Unknown: Yes Family Medical History: Hypertension Additional Family Medical History / Comment(s): Pulmonary hypertension. at 78. Medications and Allergies Home Medications Medication Instructions Recorded Confirmed Type Atorvastatin [Lipitor] 40 mg PO HS 06/18/20 12/20/21 History Folic Acid 1 mg PO DAILY@1200 #30 tab 12/23/20 12/20/21 Rx Thiamine [Vitamin B-1] 100 mg PO DAILY@1200 #30 tab 12/23/20 12/20/21 Rx Multivitamins, Thera [Multivitamin 1 tab PO DAILY@1200 01/09/21 12/20/21 History (formulary)] Clopidogrel [Plavix] 75 mg PO DAILY #30 tab 04/26/21 12/20/21 Rx Magnesium Oxide [Mag-Ox] 400 mg PO TID 05/05/21 12/20/21 History Pantoprazole Sodium [Protonix] 40 mg PO BID 05/05/21 12/20/21 History Sucralfate [Carafate] 1 gm PO AC-TID 05/05/21 12/20/21 History Tamsulosin [Flomax] 0.4 mg PO DAILY 30 Days #30 cap 05/11/21 12/20/21 Rx Aspirin EC [Ecotrin Low Dose] 81 mg PO DAILY 05/28/21 12/20/21 History DULoxetine HCL [Cymbalta] 60 mg PO BID 08/18/21 12/20/21 History Fludrocortisone [Florinef] 0.1 mg PO DAILY 12/12/21 12/20/21 History Metoprolol Tartrate [Lopressor] 50 mg PO TID 12/12/21 12/20/21 History SILVER sulfADIAZINE Cream 1 applic TOPICAL BID PRN 12/12/21 12/20/21 History [Silvadene 1% Cream] amLODIPine [Norvasc] 5 mg PO DAILY 12/12/21 12/20/21 History Pyridoxine [Vitamin B-6] 50 mg PO DAILY #30 tab 12/14/21 12/20/21 Rx Famotidine [Pepcid] 20 mg PO BID 12/20/21 12/20/21 History Allergies Allergy/AdvReac Type Severity Reaction Status Date / Time cephalexin monohydrate Allergy Anaphylaxis Verified 12/20/21 07:40 [From Keflex] Cephalosporins Allergy Anaphylaxis Verified 12/20/21 07:40 Penicillins Allergy Anaphylaxis Verified 12/20/21 07:40 Physical Exam Vitals: Vital Signs Temp Pulse Pulse Resp BP BP Pulse Ox 12/20/21 07:00 49 L 15 95/63 90 L 12/20/21 06:45 49 L 12 59/36 92 L 12/20/21 06:30 52 L 18 96/56 92 L 12/20/21 06:15 50 L 13 99/56 92 L 12/20/21 06:00 51 L 14 88/53 90 L 12/20/21 05:45 52 L 17 101/63 91 L 12/20/21 05:30 50 L 15 97/78 92 L 12/20/21 05:15 52 L 15 101/69 93 L 12/20/21 05:00 51 L 12 96/58 92 L 12/20/21 04:45 50 L 16 96/53 93 L 12/20/21 04:30 50 L 14 97/56 94 L 12/20/21 04:15 49 L 12 113/81 96 12/20/21 04:00 97.6 F 50 L 48 L 18 97/58 94 L 12/20/21 03:45 52 L 17 102/51 93 L 12/20/21 03:30 48 L 19 104/61 92 L 12/20/21 03:15 48 L 17 99/60 93 L 12/20/21 03:00 52 L 12 97/79 93 L 12/20/21 02:45 51 L 13 112/90 94 L 12/20/21 02:30 49 L 16 92/54 93 L 12/20/21 02:15 48 L 18 84/55 94 L 12/20/21 02:00 47 L 16 94/48 92 L 12/20/21 01:45 49 L 13 96/83 92 L 12/20/21 01:30 97.6 F 48 L 16 83/50 91 L 12/20/21 01:15 48 L 15 76/44 93 L 12/20/21 01:00 52 L 19 66/43 93 L 12/20/21 00:45 48 L 12 77/54 92 L 12/20/21 00:30 53 L 13 70/44 91 L 12/20/21 00:20 53 L 13 65/41 94 L 12/20/21 00:10 49 L 15 72/38 91 L 12/20/21 00:00 52 L 48 L 14 67/35 93 L 12/19/21 23:50 96.5 F L 54 L 60 12 71/37 71/37 95 12/19/21 23:49 56 L 16 122/106 94 L 12/19/21 23:43 122/106 12/19/21 23:08 54 L 16 80/41 93 L 12/19/21 22:47 56 L 16 75/46 92 L 12/19/21 22:34 51 L 70/41 92 L 12/19/21 21:36 35 L 103/59 95 12/19/21 21:25 12/19/21 21:19 97.6 F 33 L 16 83/54 94 L FiO2 12/20/21 07:00 12/20/21 06:45 12/20/21 06:30 12/20/21 06:15 12/20/21 06:00 12/20/21 05:45 12/20/21 05:30 12/20/21 05:15 12/20/21 05:00 12/20/21 04:45 12/20/21 04:30 12/20/21 04:15 12/20/21 04:00 12/20/21 03:45 12/20/21 03:30 12/20/21 03:15 12/20/21 03:00 12/20/21 02:45 12/20/21 02:30 12/20/21 02:15 12/20/21 02:00 12/20/21 01:45 12/20/21 01:30 12/20/21 01:15 12/20/21 01:00 12/20/21 00:45 12/20/21 00:30 12/20/21 00:20 12/20/21 00:10 12/20/21 00:00 12/19/21 23:50 12/19/21 23:49 12/19/21 23:43 12/19/21 23:08 12/19/21 22:47 12/19/21 22:34 12/19/21 21:36 12/19/21 21:25 98 12/19/21 21:19 Intake and Output 12/19/21 12/20/21 12/20/21 22:59 06:59 14:59 Intake Total 24.635 1350.000 125 Output Total 500 Balance 24.635 850.000 125 Intake: IV 700 125 Sodium Chloride 0.9% 1, 625 125 000 ml @ 125 mls/hr IV . Q8H YARIEL Rx#:[id number] Sodium Chloride 0.9% 1, 75 000 ml @ 75 mls/hr IV . [id number] STA Rx#:[id number] Intake, IV Titration 24.635 650.000 Amount Calcium Gluconate in NaCl 100 1 gm In Saline 1 100ml. bag @ 100 mls/hr IVPB ONCE ONE Rx#:[id number] DOPamine DRIP 800 mg In 24.635 222.97 Dextrose/Water 1 250ml. bag @ 5 MCG/KG/MIN 11.694 mls/hr IV .[id number] YARIEL Rx#:[id number] Magnesium Sulfate-D5w Pmx 200 1 gm In Dextrose/Water 1 100ml.bag @ 100 mls/hr IVPB Q1H YARIEL Rx#: [id number] Norepinephrine 4 mg In 127.030 Sodium Chloride 0.9% 250 ml @ 0.05 MCG/KG/MIN 26. 156 mls/hr IV .[id number] YARIEL Rx#:[id number] Output: Urine 500 Other: # Voids 0 0 Weight 124.738 kg 137.3 kg Results 12/20/21 04:11 12/20/21 04:11 Cardiac Enzymes 12/19/21 12/19/21 Range/Units 21:15 21:15 AST 17 (17-59) U/L Troponin I <0.012 (0.000-0.034) ng/mL Coagulation 12/19/21 Range/Units 21:15 PT 11.2 (9.0-12.0) sec APTT 28.7 (22.0-30.0) sec CBC 12/19/21 12/20/21 Range/Units 21:15 04:11 WBC 8.7 18.5 H (3.8-10.6) k/uL RBC 3.30 L 4.38 (4.30-5.90) m/uL Hgb 10.0 L D 13.1 D (13.0-17.5) gm/dL Hct 31.4 L 41.4 (39.0-53.0) % Plt Count 176 264 (150-450) k/uL Comprehensive Metabolic Panel 12/19/21 12/20/21 Range/Units 21:15 04:11 Sodium 136 L 137 (137-145) mmol/L Potassium 5.1 5.2 H (3.5-5.1) mmol/L Chloride 105 101 (98-107) mmol/L Carbon Dioxide 22 19 L (22-30) mmol/L BUN 43 H 46 H (9-20) mg/dL Creatinine 1.70 H 1.91 H (0.66-1.25) mg/dL Glucose 116 H 194 H (74-99) mg/dL Calcium 8.1 L 9.3 (8.4-10.2) mg/dL AST 17 (17-59) U/L ALT 15 (4-49) U/L Alkaline Phosphatase 67 (38-126) U/L Total Protein 5.2 L (6.3-8.2) g/dL Albumin 3.2 L (3.5-5.0) g/dL Current Medications Generic Name Dose Route Start Last Admin Trade Name Freq PRN Reason Stop Dose Admin Acetaminophen 650 mg 12/19/21 22:23 12/20/21 01:25 Acetaminophen Tab 325 Mg Tab PO 650 mg Q4HR PRN Administration Fever and/or Mild Pain Dopamine HCl/Dextrose 800 mg/ 250 mls @ 11.694 mls/hr 12/19/21 22:00 12/20/21 03:35 IV Solution IV 20 mcg/kg/min .[id number] YARIEL 46.777 mls/hr Administration Protocol 5 MCG/KG/MIN Sodium Chloride 1,000 mls @ 125 mls/hr 12/19/21 23:57 12/19/21 23:57 Saline 0.9% IV 125 mls/hr .Q8H YARIEL Administration Norepinephrine Bitartrate 4 mg 254 mls @ 26.156 mls/hr 12/20/21 01:00 12/20/21 05:45 / Sodium Chloride IV 0.01 mcg/kg/min .[id number] YARIEL 5.231 mls/hr Titration Protocol 0.05 MCG/KG/MIN Magnesium Sulfate/Dextrose 1 100 mls @ 100 mls/hr 12/20/21 05:45 12/20/21 06:49 gm/ IV Solution IVPB 12/20/21 07:44 100 mls/hr Q1H YARIEL Administration Miscellaneous Information 1 each 12/20/21 05:38 Magnesium Replacement Protocol 1 Each Misc MISCELLANE DAILY PRN Per Protocol Protocol Naloxone HCl 0.2 mg 12/19/21 22:23 Naloxone 0.4 Mg/Ml 1 Ml Vial IV Q2M PRN Opioid Reversal Intake and Output 12/19/21 12/20/21 12/20/21 22:59 06:59 14:59 Intake Total 24.635 1350.000 125 Output Total 500 Balance 24.635 850.000 125 Intake: IV 700 125 Sodium Chloride 0.9% 1, 625 125 000 ml @ 125 mls/hr IV . Q8H YARIEL Rx#:[id number] Sodium Chloride 0.9% 1, 75 000 ml @ 75 mls/hr IV . [id number] STA Rx#:[id number] Intake, IV Titration 24.635 650.000 Amount Calcium Gluconate in NaCl 100 1 gm In Saline 1 100ml. bag @ 100 mls/hr IVPB ONCE ONE Rx#:[id number] DOPamine DRIP 800 mg In 24.635 222.97 Dextrose/Water 1 250ml. bag @ 5 MCG/KG/MIN 11.694 mls/hr IV .[id number] YARIEL Rx#:[id number] Magnesium Sulfate-D5w Pmx 200 1 gm In Dextrose/Water 1 100ml.bag @ 100 mls/hr IVPB Q1H YARIEL Rx#: [id number] Norepinephrine 4 mg In 127.030 Sodium Chloride 0.9% 250 ml @ 0.05 MCG/KG/MIN 26. 156 mls/hr IV .[id number] YARIEL Rx#:[id number] Output: Urine 500 Other: # Voids 0 0 Weight 124.738 kg 137.3 kg 12/20/21 04:11 12/20/21 04:11
[2021-12-20] MEDS ORDERED: DOPamine DRIP 250 ML IV ONE (08:22)
[2021-12-20] MEDS: SODIUM CHLORIDE 0.9% 1,000 ML IV SCH ×3 (09:28→16:51)
[2021-12-20] MEDS: DULoxetine HCL 60 MG CAPSULE.DR PO SCH ×2 (11:14→20:00)
[2021-12-20 11:26] LABS: Glucose,Whole Blood 169 mg/dL (70-110)
[2021-12-20 12:24] LABS: Appearance,Urine Clear (Clear); Bilirubin,Urine Negative (Negative); Blood,Urine Negative (Negative); Color,Urine Yellow; Glucose,Urine (UA) Negative (Negative); Hyaline Casts,Urine 3 /lpf (0-2); Ketones,Urine Negative (Negative); Leukocyte Esterase,Urine Trace (Negative); Mucus,Urine Rare /hpf; Nitrite,Urine Negative (Negative); Protein,Urine Negative (Negative); RBC,Urine <1 /hpf (0-5); Specific Gravity,Urine 1.013 (1.001-1.035); Urobilinogen,Urine <2.0 mg/dL (<2.0); WBC,Urine 3 /hpf (0-5)
[2021-12-20] MEDS ORDERED: DEXTROSE 50% SYRINGE 50 ML IVP PRN ×2 (13:01)
--- NOTE | 2021-12-20 15:02 | P.CNPUL ---
History of Present Illness Consult date: 12/20/21 Reason for consult: other (IC management, hypotension) Chief complaint: Lightheadedness and syncope History of present illness: This is a 71-year-old white male with history of multiple medical problems including coronary artery disease, 50% stenosis of LAD, paroxysmal atrial fibrillation, hypertension, dyslipidemia, patient presented to ER yesterday with recurrent lightheadedness associated with bradycardia., Also associated with vertigo. Apparently the patient had a witnessed syncopal episode yesterday, brought into the ER and he was found to have atrial fibrillation and heart rate of 30/m. Patient was also hypotensive requiring dopamine and later on when he arrived to the ICU patient required norepinephrine for low blood pressure in spite of dopamine at 20 mcg/kg/m. Apparently the patient is normally on beta blockers and his overall is presently on hold. This morning the patient is down on the dopamine to 15 mcg/kg/m, and his norepinephrine is at 0.03 mcg/kg/m. After evaluating the patient, I have considered the patient isn't requiring dopamine and norepinephrine, went ahead and recommended a central line which was placed in the right groin, and a left radial arterial line was also placed for close monitoring of his hemodynamic status. Patient felt better today compared to yesterday, and he does not seem to be in any distress. Chest x-ray on admission showed mostly minimal subsegmental atelectasis at the left base no evidence of congestive heart failure. Patient did receive almost 3 L of fluid boluses yesterday since admission and is admitted fluid presently is at 1 25 mL per hour. Review of Systems CONSTITUTIONAL: Negative HEENT: Negative CARDIOVASCULAR: As noted in HPI RESPIRATORY: Negative GASTROINTESTINAL: Negative GENITOURINARY: Negative SKIN: Negative Psychiatric: Negative Hematologic: Negative Endocrine: Negative Neurologic: As noted in HPI Past Medical History Past Medical History: Atrial Fibrillation, Diabetes Mellitus, GERD/Reflux, Hyperlipidemia, Hypertension, Osteoarthritis (OA), Pneumonia, Prostate Disorder Additional Past Medical History / Comment(s): Pt recently admitted to [facility] on 06/03/21 with fall/possible TIA. Other hx: FALLS, falls with fractuers, vertig o, surgeries for compressed brain stem at [facility], diet controlled diabetes/neuropathy bilateral feet and occasionally in both hands fingertips, bilateral mastectomies d/t benign tumors, chronic low back pain, chronic headaches, BPH, ulcerative colitis, benign colon polyps History of Any Multi-Drug Resistant Organisms: MRSA Date of last positivie culture/infection: MRSA-03/11 MDRO Source:: Source unknown-MRSA Past Surgical History: Back Surgery, Breast Surgery, Orthopedic Surgery Additional Past Surgical History / Comment(s): Bilateral mastectomy with right s ided lymp node removal, R knee cap removed d/t fracture, Back surgery for herniated disc, brain stem surgeries for decompression-for dizziness and a surgery for spinal fluid leakage, right ankle ORIF, bilateral wrist fractures SX Past Anesthesia/Blood Transfusion Reactions: No Reported Reaction Past Psychological History: No Psychological Hx Reported Additional Psychological History / Comment(s): Pt resides in an apartment alone. He uses a walker to get around in his bathroom but otherwise is mostly in a wheelchair. He does not drive. He has friends that take him places. He has VNA. He has a cleaning lady. He makes microwavable meals. Smoking Status: Former smoker Past Alcohol Use History: None Reported Additional Past Alcohol Use History / Comment(s): STARTED SMOKING AT AGE 18, SMOKE A PIPE GOES THRU A PACK OF PIPE TOBACCO/DAY quit smoking in 2005 Past Drug Use History: None Reported - Past Family History Father History Unknown: Yes Family Medical History: Congestive Heart Failure (CHF) Additional Family Medical History / Comment(s): at 68. Mother History Unknown: Yes Family Medical History: Hypertension Additional Family Medical History / Comment(s): Pulmonary hypertension. at 78. Medications and Allergies Home Medications Medication Instructions Recorded Confirmed Type Atorvastatin [Lipitor] 40 mg PO HS 06/18/20 12/20/21 History Folic Acid 1 mg PO DAILY@1200 #30 tab 12/23/20 12/20/21 Rx Thiamine [Vitamin B-1] 100 mg PO DAILY@1200 #30 tab 12/23/20 12/20/21 Rx Multivitamins, Thera [Multivitamin 1 tab PO DAILY@1200 01/09/21 12/20/21 History (formulary)] Clopidogrel [Plavix] 75 mg PO DAILY #30 tab 04/26/21 12/20/21 Rx Magnesium Oxide [Mag-Ox] 400 mg PO TID 05/05/21 12/20/21 History Pantoprazole Sodium [Protonix] 40 mg PO BID 05/05/21 12/20/21 History Sucralfate [Carafate] 1 gm PO AC-TID 05/05/21 12/20/21 History Tamsulosin [Flomax] 0.4 mg PO DAILY 30 Days #30 cap 05/11/21 12/20/21 Rx Aspirin EC [Ecotrin Low Dose] 81 mg PO DAILY 05/28/21 12/20/21 History DULoxetine HCL [Cymbalta] 60 mg PO BID 08/18/21 12/20/21 History Fludrocortisone [Florinef] 0.1 mg PO DAILY 12/12/21 12/20/21 History Metoprolol Tartrate [Lopressor] 50 mg PO TID 12/12/21 12/20/21 History SILVER sulfADIAZINE Cream 1 applic TOPICAL BID PRN 12/12/21 12/20/21 History [Silvadene 1% Cream] amLODIPine [Norvasc] 5 mg PO DAILY 12/12/21 12/20/21 History Pyridoxine [Vitamin B-6] 50 mg PO DAILY #30 tab 12/14/21 12/20/21 Rx Famotidine [Pepcid] 20 mg PO BID 12/20/21 12/20/21 History Allergies Allergy/AdvReac Type Severity Reaction Status Date / Time cephalexin monohydrate Allergy Anaphylaxis Verified 12/20/21 07:40 [From Keflex] Cephalosporins Allergy Anaphylaxis Verified 12/20/21 07:40 Penicillins Allergy Anaphylaxis Verified 12/20/21 07:40 Physical Exam Vitals: Vital Signs Temp Pulse Pulse Resp BP BP Pulse Ox 12/20/21 14:15 52 L 17 97 12/20/21 14:00 51 L 19 95 12/20/21 13:45 51 L 19 95 12/20/21 13:30 50 L 18 95 12/20/21 13:15 51 L 13 93 L 12/20/21 13:00 50 L 19 95 12/20/21 12:45 49 L 18 94 L 12/20/21 12:30 48 L 16 95 12/20/21 12:15 48 L 19 94 L 12/20/21 12:00 98.2 F 49 L 16 96 12/20/21 11:45 51 L 16 92 L 12/20/21 11:30 47 L 18 94 L 12/20/21 11:15 48 L 19 93 L 12/20/21 11:00 48 L 20 94 L 12/20/21 10:45 49 L 20 94 L 12/20/21 10:30 49 L 16 109/63 91 L 12/20/21 10:15 49 L 16 104/62 89 L 12/20/21 10:00 49 L 15 74/53 95 12/20/21 09:45 52 L 21 93/53 95 12/20/21 09:30 53 L 22 81/50 80 L 12/20/21 09:15 49 L 19 93 L 12/20/21 09:00 49 L 22 93 L 12/20/21 08:45 47 L 18 95/58 94 L 12/20/21 08:30 48 L 16 104/55 94 L 12/20/21 08:15 53 L 14 90/70 95 12/20/21 08:00 97.6 F 52 L 16 109/84 91 L 12/20/21 07:45 50 L 17 92/66 93 L 12/20/21 07:30 49 L 17 103/80 92 L 12/20/21 07:15 78 16 93/57 93 L 12/20/21 07:00 49 L 15 95/63 90 L 12/20/21 06:45 49 L 12 59/36 92 L 12/20/21 06:30 52 L 18 96/56 92 L 12/20/21 06:15 50 L 13 99/56 92 L 12/20/21 06:00 51 L 14 88/53 90 L 12/20/21 05:45 52 L 17 101/63 91 L 12/20/21 05:30 50 L 15 97/78 92 L 12/20/21 05:15 52 L 15 101/69 93 L 12/20/21 05:00 51 L 12 96/58 92 L 12/20/21 04:45 50 L 16 96/53 93 L 12/20/21 04:30 50 L 14 97/56 94 L 12/20/21 04:15 49 L 12 113/81 96 12/20/21 04:00 97.6 F 50 L 48 L 18 97/58 94 L 12/20/21 03:45 52 L 17 102/51 93 L 12/20/21 03:30 48 L 19 104/61 92 L 12/20/21 03:15 48 L 17 99/60 93 L 12/20/21 03:00 52 L 12 97/79 93 L 12/20/21 02:45 51 L 13 112/90 94 L 12/20/21 02:30 49 L 16 92/54 93 L 12/20/21 02:15 48 L 18 84/55 94 L 12/20/21 02:00 47 L 16 94/48 92 L 12/20/21 01:45 49 L 13 96/83 92 L 12/20/21 01:30 97.6 F 48 L 16 83/50 91 L 12/20/21 01:15 48 L 15 76/44 93 L 12/20/21 01:00 52 L 19 66/43 93 L 12/20/21 00:45 48 L 12 77/54 92 L 12/20/21 00:30 53 L 13 70/44 91 L 12/20/21 00:20 53 L 13 65/41 94 L 12/20/21 00:10 49 L 15 72/38 91 L 12/20/21 00:00 52 L 48 L 14 67/35 93 L 12/19/21 23:50 96.5 F L 54 L 60 12 71/37 71/37 95 12/19/21 23:49 56 L 16 122/106 94 L 12/19/21 23:43 122/106 12/19/21 23:08 54 L 16 80/41 93 L 12/19/21 22:47 56 L 16 75/46 92 L 12/19/21 22:34 51 L 70/41 92 L 12/19/21 21:36 35 L 103/59 95 12/19/21 21:25 12/19/21 21:19 97.6 F 33 L 16 83/54 94 L FiO2 12/20/21 14:15 12/20/21 14:00 12/20/21 13:45 12/20/21 13:30 12/20/21 13:15 12/20/21 13:00 12/20/21 12:45 12/20/21 12:30 12/20/21 12:15 12/20/21 12:00 12/20/21 11:45 12/20/21 11:30 12/20/21 11:15 12/20/21 11:00 12/20/21 10:45 12/20/21 10:30 12/20/21 10:15 12/20/21 10:00 12/20/21 09:45 12/20/21 09:30 12/20/21 09:15 12/20/21 09:00 12/20/21 08:45 12/20/21 08:30 12/20/21 08:15 12/20/21 08:00 12/20/21 07:45 12/20/21 07:30 12/20/21 07:15 12/20/21 07:00 12/20/21 06:45 12/20/21 06:30 12/20/21 06:15 12/20/21 06:00 12/20/21 05:45 12/20/21 05:30 12/20/21 05:15 12/20/21 05:00 12/20/21 04:45 12/20/21 04:30 12/20/21 04:15 12/20/21 04:00 12/20/21 03:45 12/20/21 03:30 12/20/21 03:15 12/20/21 03:00 12/20/21 02:45 12/20/21 02:30 12/20/21 02:15 12/20/21 02:00 12/20/21 01:45 12/20/21 01:30 12/20/21 01:15 12/20/21 01:00 12/20/21 00:45 12/20/21 00:30 12/20/21 00:20 12/20/21 00:10 12/20/21 00:00 12/19/21 23:50 12/19/21 23:49 12/19/21 23:43 12/19/21 23:08 12/19/21 22:47 12/19/21 22:34 12/19/21 21:36 12/19/21 21:25 98 12/19/21 21:19 Intake and Output 12/19/21 12/20/21 12/20/21 22:59 06:59 14:59 Intake Total 24.635 3553.821 6213.676 Output Total 500 1425 Balance 24.635 850.000 157.676 Intake: IV 700 1000 Sodium Chloride 0.9% 1, 625 1000 000 ml @ 125 mls/hr IV . Q8H [facility] Rx#:[id number] Sodium Chloride 0.9% 1, 75 000 ml @ 75 mls/hr IV . [id number] [facility] Rx#:[id number] Intake, IV Titration 24.635 650.000 342.676 Amount Calcium Gluconate in NaCl 100 1 gm In Saline 1 100ml. bag @ 100 mls/hr IVPB ONCE ONE Rx#:[id number] DOPamine DRIP 800 mg In 24.635 222.97 250.000 Dextrose/Water 1 250ml. bag @ 5 MCG/KG/MIN 11.694 mls/hr IV .[id number] [facility] Rx#:[id number] Magnesium Sulfate-D5w Pmx 200 1 gm In Dextrose/Water 1 100ml.bag @ 100 mls/hr IVPB Q1H [facility] Rx#: [id number] Norepinephrine 4 mg In 127.030 92.676 Sodium Chloride 0.9% 250 ml @ 0.05 MCG/KG/MIN 26. 156 mls/hr IV .[id number] [facility] Rx#:[id number] Oral 240 Output: Urine 500 1425 Other: # Voids 0 0 Weight 124.738 kg 137.3 kg ABP, PAP, CO, CI - Last 8 Hours Arterial Blood Pressure 97/56 Arterial Blood Pressure 114/51 Arterial Blood Pressure 118/53 Arterial Blood Pressure 116/53 Arterial Blood Pressure 137/83 Arterial Blood Pressure 114/52 Arterial Blood Pressure 118/53 Arterial Blood Pressure 115/52 Arterial Blood Pressure 117/53 Arterial Blood Pressure 117/52 Arterial Blood Pressure 100/58 Arterial Blood Pressure 116/56 Arterial Blood Pressure 120/57 Arterial Blood Pressure 117/57 Arterial Blood Pressure 123/59 Arterial Blood Pressure 107/63 Physical Exam: Revealed 71-year-old white male in no distress on 3 L nasal cannula O2 sat is 97% Head: Atraumatic, normocephalic. HEENT:[Neck is supple.] [No neck masses.] [No thyromegaly.] [No JVD.] Chest: [Clear throughout, no crackles, no rhonchi, no wheezes.] Cardiac Exam: [Normal S1 and S2, no S3 gallop, no murmur.] Abdomen: [Soft, nontender, no megaly, no rebound, no guarding, normal bowel sounds.] Extremities: [No clubbing, no edema, no cyanosis.] Neurological Exam: [No focal neurologic deficit.] Alert oriented 3 Psychiatric: Normal mood affect and normal mental status exam. Skin: No rashes Results - Laboratory Findings CBC and BMP: 12/20/21 04:11 12/20/21 04:11 PT/INR, D-dimer PT 11.2 sec (9.0-12.0) 12/19/21 21:15 INR 1.0 (<1.2) 12/19/21 21:15 Abnormal lab findings: Abnormal Labs 12/19/21 12/19/21 12/19/21 21:15 21:15 23:47 WBC RBC 3.30 L Hgb 10.0 L D Hct 31.4 L Neutrophils # Monocytes # Sodium 136 L Potassium Carbon Dioxide BUN 43 H Creatinine 1.70 H Glucose 116 H POC Glucose (mg/dL) 184 H Calcium 8.1 L Magnesium 1.5 L Total Protein 5.2 L Albumin 3.2 L Ur Leukocyte Esterase Hyaline Casts Urine Mucus 12/20/21 12/20/21 12/20/21 04:11 04:11 06:54 WBC 18.5 H RBC Hgb Hct Neutrophils # 15.6 H Monocytes # 1.1 H Sodium Potassium 5.2 H Carbon Dioxide 19 L BUN 46 H Creatinine 1.91 H Glucose 194 H POC Glucose (mg/dL) 201 H Calcium Magnesium Total Protein Albumin Ur Leukocyte Esterase Hyaline Casts Urine Mucus 12/20/21 12/20/21 11:25 12:09 WBC RBC Hgb Hct Neutrophils # Monocytes # Sodium Potassium Carbon Dioxide BUN Creatinine Glucose POC Glucose (mg/dL) 169 H Calcium Magnesium Total Protein Albumin Ur Leukocyte Esterase Trace H Hyaline Casts 3 H Urine Mucus Rare H - Diagnostic Findings Chest x-ray: image reviewed (As noted in HPI) Assessment and Plan Assessment: Impression: Syncope secondary to profound bradycardia/cardiogenic in nature Intermittent atrial fibrillation with sinus bradycardia Hypotension secondary to bradycardia requiring dopamine and norepinephrine History of underlying coronary artery disease History of paroxysmal atrial fibrillation Dyslipidemia essential hypertension GERD without esophagitis Type 2 diabetes Degenerative joint disease History of breast cancer requiring bilateral meniscectomies History of ulcerative colitis Recommendation: Continue to monitor in the ICU Continue dopamine and norepinephrine suggest titrating both preferably to titrate the norepinephrine before dopamine since his hypotension is mostly rate related, patient seems to be more hypotensive when his heart rate is low Continue to hold all beta blockers and blood pressure medications that he took home. Continue IV fluids. Serum cortisol level was ordered Will continue to follow in the ICU. Central line was placed because the patient is on pressors and arterial line was also placed. Time with Patient: Greater than 30
[2021-12-20] MEDS: FLUDROCORTISONE 0.1 MG TAB PO SCH (15:07)
[2021-12-20] MEDS ORDERED: levETIRAcetam IV 1,000 MG in SALINE 1 100ML.BAG IVPB STA (16:18)
[2021-12-20] MEDS ORDERED: ONDANSETRON 4 MG/2 ML VIAL IVP PRN (16:20)
[2021-12-20 18:23] LABS: Glucose,Whole Blood 152 mg/dL (70-110)
[2021-12-20] MEDS: INSULIN ASPART (NovoLOG) 100 UNIT/ML VIAL SQ SCH ×2 (18:27→20:03)
[2021-12-20] MEDS: FAMOTIDINE 20 MG TAB PO SCH (20:00)
[2021-12-20] MEDS: ATORVASTATIN 40 MG TAB PO SCH (20:00)
[2021-12-20] MEDS: levETIRAcetam IV 500 MG in SODIUM CHLORIDE 0.9% 100 ML IVPB SCH (20:04)
[2021-12-20 20:05] LABS: Glucose,Whole Blood 141 mg/dL (70-110)
[2021-12-20] MEDS ORDERED: FAMOTIDINE 20 MG TAB PO SCH (21:00)
--- NOTE | 2021-12-20 21:15 | OP ---
OPERATIVE REPORT PROCEDURE PERFORMED: Placement of a left radial arterial line. PREOPERATIVE DIAGNOSIS: Hypotension requiring dopamine and norepinephrine. POSTOPERATIVE DIAGNOSIS: Hypotension requiring dopamine and norepinephrine. ANESTHESIA USED: None deployed. DETAILS OF PROCEDURE: The left wrist was prepared in a sterile fashion and drapes were applied. The left radial artery was palpated, cannulated, and a guidewire was placed. A Cook catheter was inserted over the guidewire, and the guidewire was removed. Good blood flow, good waveform noted, no complications. Line was secured using 3.0 silk sutures. MMODL / IJN: [id number] /
--- NOTE | 2021-12-20 21:21 | OP ---
OPERATIVE REPORT PROCEDURE PERFORMED: Placement of right femoral triple-lumen catheter. PREOPERATIVE DIAGNOSIS: Profound hypotension with bradycardia requiring dopamine and norepinephrine. POSTOPERATIVE DIAGNOSIS: Profound hypotension with bradycardia requiring dopamine and norepinephrine. ANESTHESIA USED: 2 mL of 1% lidocaine. PROCEDURE IN DETAIL: The patient was placed in the supine position, the area of the right groin was prepared in a sterile fashion, drapes were applied. The area was locally anesthetized with lidocaine. Then, the right femoral vein was easily cannulated, a guidewire was placed. The area around the guidewire was dilated with a dilator. Then a triple-lumen catheter was inserted over the guidewire, and the guidewire was removed. Good blood flow was noted in 3 different ports of the triple-lumen catheter. Line was secured using 3.0 silk sutures. Procedure was tolerated. No complications. MMODL / IJN: [id number] /
--- NOTE | 2021-12-20 22:27 | P.HPIM ---
History of Present Illness H&P Date: 12/20/21 Chief Complaint: Dizziness and lightheadedness Patient is a 71-year-old man with a known history of hypertension, hyperlipidemia, diabetes type 2 [id number], chronic vertigo, osteoarthritis, atrial fibrillation not on anticoagulation, history of TIA and previous history of smoking and other multiple medical problems presents to ER with complaints of dizziness and lightheaded started since yesterday afternoon. EMS was called and patient was found to have bradycardia with heart rate in 30s. Patient felt like passing out. Denied any complaints of chest pain or shortness of breath. No nausea or vomiting or diarrhea. Patient was recently admitted to the hospital for dizziness and lightheadedness and fall and was seen by neurology and work-up including EEG was done. Patient follows with [facility] for chronic vertigo and is being evaluated for spinal stimulator placement. Patient is on metoprolol 50 mg twice daily at home. Chest x-ray showed mild subsegmental atelectasis left lung base without change. Normal heart. EKG showed sinus bradycardia with heart rate 32 and repeat EKG showed atrial fibrillation with slow ventricular response. Laboratory data showed WBC 8.7 hemoglobin 10.0 and platelets 176 Sodium 136 potassium 5.1 chloride 105 bicarb is 22 BUN 43 and creatinine 1.7 Magnesium 1.5 Cortisol level is 27. Patient was hypotensive on admission with blood pressure 83/54 and heart rate 33. Review of Systems Constitutional: Patient denies any fever or chills . no Generalized weakness. Abdomen: Patient denied any nausea or vomiting or abd. pain Cardiovascular: Patient denies any chest pain or short of breath no palpitations. Respiratory: patient denied any cough . no sputum production. No shortness of breath Neurologic: Patient denied any numbness or tingling headache. Musculoskeletal: Patient denies any complaints of joint swelling or deformity. Skin: Negative Psychiatric: Negative Endocrine: No heat or cold intolerance. No recent weight gain. Genitourinary: No dysuria or hematuria. All other 14 point ROS negative except the above Past Medical History Past Medical History: Atrial Fibrillation, Diabetes Mellitus, GERD/Reflux, Hyperlipidemia, Hypertension, Osteoarthritis (OA), Pneumonia, Prostate Disorder Additional Past Medical History / Comment(s): Pt recently admitted to [facility] on 06/03/21 with fall/possible TIA. Other hx: FALLS, falls with fractuers, vertigo, surgeries for compressed brain stem at [facility], diet controlled diabetes/neuropathy bilateral feet and occasionally in both hands fingertips, bilateral mastectomies d/t benign tumors, chronic low back pain, chronic headaches, BPH, ulcerative colitis, benign colon polyps History of Any Multi-Drug Resistant Organisms: MRSA Date of last positivie culture/infection: MRSA-03/11 MDRO Source:: Source unknown-MRSA Past Surgical History: Back Surgery, Breast Surgery, Orthopedic Surgery Additional Past Surgical History / Comment(s): Bilateral mastectomy with right sided lymp node removal, R knee cap removed d/t fracture, Back surgery for herniated disc, brain stem surgeries for decompression-for dizziness and a surgery for spinal fluid leakage, right ankle ORIF, bilateral wrist fractures SX Past Anesthesia/Blood Transfusion Reactions: No Reported Reaction Past Psychological History: No Psychological Hx Reported Additional Psychological History / Comment(s): Pt resides in an apartment alone. He uses a walker to get around in his bathroom but otherwise is mostly in a wheelchair. He does not drive. He has friends that take him places. He has VNA. He has a cleaning lady. He makes microwavable meals. Smoking Status: Former smoker Past Alcohol Use History: None Reported Additional Past Alcohol Use History / Comment(s): STARTED SMOKING AT AGE 18, SMOKE A PIPE GOES THRU A PACK OF PIPE TOBACCO/DAY quit smoking in 2005 Past Drug Use History: None Reported - Past Family History Father History Unknown: Yes Family Medical History: Congestive Heart Failure (CHF) Additional Family Medical History / Comment(s): at 68. Mother History Unknown: Yes Family Medical History: Hypertension Additional Family Medical History / Comment(s): Pulmonary hypertension. at 78. Medications and Allergies Home Medications Medication Instructions Recorded Confirmed Type Atorvastatin [Lipitor] 40 mg PO HS 06/18/20 12/20/21 History Folic Acid 1 mg PO DAILY@1200 #30 tab 12/23/20 12/20/21 Rx Thiamine [Vitamin B-1] 100 mg PO DAILY@1200 #30 tab 12/23/20 12/20/21 Rx Multivitamins, Thera [Multivitamin 1 tab PO DAILY@1200 01/09/21 12/20/21 History (formulary)] Clopidogrel [Plavix] 75 mg PO DAILY #30 tab 04/26/21 12/20/21 Rx Magnesium Oxide [Mag-Ox] 400 mg PO TID 05/05/21 12/20/21 History Pantoprazole Sodium [Protonix] 40 mg PO BID 05/05/21 12/20/21 History Sucralfate [Carafate] 1 gm PO AC-TID 05/05/21 12/20/21 History Tamsulosin [Flomax] 0.4 mg PO DAILY 30 Days #30 cap 05/11/21 12/20/21 Rx Aspirin EC [Ecotrin Low Dose] 81 mg PO DAILY 05/28/21 12/20/21 History DULoxetine HCL [Cymbalta] 60 mg PO BID 08/18/21 12/20/21 History Fludrocortisone [Florinef] 0.1 mg PO DAILY 12/12/21 12/20/21 History Metoprolol Tartrate [Lopressor] 50 mg PO TID 12/12/21 12/20/21 History SILVER sulfADIAZINE Cream 1 applic TOPICAL BID PRN 12/12/21 12/20/21 History [Silvadene 1% Cream] amLODIPine [Norvasc] 5 mg PO DAILY 12/12/21 12/20/21 History Pyridoxine [Vitamin B-6] 50 mg PO DAILY #30 tab 12/14/21 12/20/21 Rx Famotidine [Pepcid] 20 mg PO BID 12/20/21 12/20/21 History Allergies Allergy/AdvReac Type Severity Reaction Status Date / Time cephalexin monohydrate Allergy Anaphylaxis Verified 12/20/21 07:40 [From Keflex] Cephalosporins Allergy Anaphylaxis Verified 12/20/21 07:40 Penicillins Allergy Anaphylaxis Verified 12/20/21 07:40 Physical Exam Vitals: Vital Signs Temp Pulse Pulse Resp BP BP Pulse Ox 12/20/21 09:15 49 L 19 93 L 12/20/21 09:00 49 L 22 93 L 12/20/21 08:45 47 L 18 95/58 94 L 12/20/21 08:30 48 L 16 104/55 94 L 12/20/21 08:15 53 L 14 90/70 95 12/20/21 08:00 97.6 F 52 L 16 109/84 91 L 12/20/21 07:45 50 L 17 92/66 93 L 12/20/21 07:30 49 L 17 103/80 92 L 12/20/21 07:15 78 16 93/57 93 L 12/20/21 07:00 49 L 15 95/63 90 L 12/20/21 06:45 49 L 12 59/36 92 L 12/20/21 06:30 52 L 18 96/56 92 L 12/20/21 06:15 50 L 13 99/56 92 L 12/20/21 06:00 51 L 14 88/53 90 L 12/20/21 05:45 52 L 17 101/63 91 L 12/20/21 05:30 50 L 15 97/78 92 L 12/20/21 05:15 52 L 15 101/69 93 L 12/20/21 05:00 51 L 12 96/58 92 L 12/20/21 04:45 50 L 16 96/53 93 L 12/20/21 04:30 50 L 14 97/56 94 L 12/20/21 04:15 49 L 12 113/81 96 12/20/21 04:00 97.6 F 50 L 48 L 18 97/58 94 L 12/20/21 03:45 52 L 17 102/51 93 L 12/20/21 03:30 48 L 19 104/61 92 L 12/20/21 03:15 48 L 17 99/60 93 L 12/20/21 03:00 52 L 12 97/79 93 L 12/20/21 02:45 51 L 13 112/90 94 L 12/20/21 02:30 49 L 16 92/54 93 L 12/20/21 02:15 48 L 18 84/55 94 L 12/20/21 02:00 47 L 16 94/48 92 L 12/20/21 01:45 49 L 13 96/83 92 L 12/20/21 01:30 97.6 F 48 L 16 83/50 91 L 12/20/21 01:15 48 L 15 76/44 93 L 12/20/21 01:00 52 L 19 66/43 93 L 12/20/21 00:45 48 L 12 77/54 92 L 12/20/21 00:30 53 L 13 70/44 91 L 12/20/21 00:20 53 L 13 65/41 94 L 12/20/21 00:10 49 L 15 72/38 91 L 12/20/21 00:00 52 L 48 L 14 67/35 93 L 12/19/21 23:50 96.5 F L 54 L 60 12 71/37 71/37 95 12/19/21 23:49 56 L 16 122/106 94 L 12/19/21 23:43 122/106 12/19/21 23:08 54 L 16 80/41 93 L 12/19/21 22:47 56 L 16 75/46 92 L 12/19/21 22:34 51 L 70/41 92 L 12/19/21 21:36 35 L 103/59 95 12/19/21 21:25 12/19/21 21:19 97.6 F 33 L 16 83/54 94 L FiO2 12/20/21 09:15 12/20/21 09:00 12/20/21 08:45 12/20/21 08:30 12/20/21 08:15 12/20/21 08:00 12/20/21 07:45 12/20/21 07:30 12/20/21 07:15 12/20/21 07:00 12/20/21 06:45 12/20/21 06:30 12/20/21 06:15 12/20/21 06:00 12/20/21 05:45 12/20/21 05:30 12/20/21 05:15 12/20/21 05:00 12/20/21 04:45 12/20/21 04:30 12/20/21 04:15 12/20/21 04:00 12/20/21 03:45 12/20/21 03:30 12/20/21 03:15 12/20/21 03:00 12/20/21 02:45 12/20/21 02:30 12/20/21 02:15 12/20/21 02:00 12/20/21 01:45 12/20/21 01:30 12/20/21 01:15 12/20/21 01:00 12/20/21 00:45 12/20/21 00:30 12/20/21 00:20 12/20/21 00:10 12/20/21 00:00 12/19/21 23:50 12/19/21 23:49 12/19/21 23:43 12/19/21 23:08 12/19/21 22:47 12/19/21 22:34 12/19/21 21:36 12/19/21 21:25 98 12/19/21 21:19 Intake and Output 12/19/21 12/20/21 12/20/21 22:59 06:59 14:59 Intake Total 24.635 1350.000 878.252 Output Total 500 Balance 24.635 850.000 878.252 Intake: IV 700 375 Sodium Chloride 0.9% 1, 625 375 000 ml @ 125 mls/hr IV . [facility]H [facility] Rx#:[id number] Sodium Chloride 0.9% 1, 75 000 ml @ 75 mls/hr IV . [id number] [facility] Rx#:[id number] Intake, IV Titration 24.635 650.000 263.252 Amount Calcium Gluconate in NaCl 100 1 gm In Saline 1 100ml. bag @ 100 mls/hr IVPB ONCE ONE Rx#:[id number] DOPamine DRIP 800 mg In 24.635 222.97 250.000 Dextrose/Water 1 250ml. bag @ 5 MCG/KG/MIN 11.694 mls/hr IV .[id number] [facility] Rx#:[id number] Magnesium Sulfate-D5w Pmx 200 1 gm In Dextrose/Water 1 100ml.bag @ 100 mls/hr IVPB Q1H [facility] Rx#: [id number] Norepinephrine 4 mg In 127.030 13.252 Sodium Chloride 0.9% 250 ml @ 0.05 MCG/KG/MIN 26. 156 mls/hr IV .[id number] [facility] Rx#:[id number] Oral 240 Output: Urine 500 Other: # Voids 0 0 Weight 124.738 kg 137.3 kg PHYSICAL EXAMINATION: Patient is lying in the bed comfortably, no acute distress, awake alert and oriented.. HEENT: Normocephalic. Neck is supple. Pupils reactive. Nostrils clear. Oral cavity is moist. Neck reveals no JVD, carotid bruits, or thyromegaly. CHEST EXAMINATION: Trachea is central. Symmetrical expansion. Lung bishop clear to auscultation and percussion. CARDIAC: Normal S1, S2 with no gallops. No murmurs ABDOMEN: Soft. Bowel sounds present. Nontender. No organomegaly. No abdominal bruits. Extremities: reveal no edema. No clubbing or cyanosis Neurologically awake, alert, oriented x3 with well-coordinated movements. No focal deficits noted Skin: No rash or skin lesions. Psychiatric: Coperative. Nonsuicidal, Musculoskeletal: No joint swelling or deformity. Normal range of motion. Results CBC & Chem 7: 12/20/21 04:11 12/20/21 04:11 Labs: Abnormal Lab Results - Last 24 Hours (Table) 12/19/21 12/19/21 12/19/21 Range/Units 21:15 21:15 23:47 WBC (3.8-10.6) k/uL RBC 3.30 L (4.30-5.90) m/uL Hgb 10.0 L D (13.0-17.5) gm/dL Hct 31.4 L (39.0-53.0) % Neutrophils # (1.3-7.7) k/uL Monocytes # (0-1.0) k/uL Sodium 136 L (137-145) mmol/L Potassium (3.5-5.1) mmol/L Carbon Dioxide (22-30) mmol/L BUN 43 H (9-20) mg/dL Creatinine 1.70 H (0.66-1.25) mg/dL Glucose 116 H (74-99) mg/dL POC Glucose (mg/dL) 184 H (70-110) mg/dL Calcium 8.1 L (8.4-10.2) mg/dL Magnesium 1.5 L (1.6-2.3) mg/dL Total Protein 5.2 L (6.3-8.2) g/dL Albumin 3.2 L (3.5-5.0) g/dL 12/20/21 12/20/21 12/20/21 Range/Units 04:11 04:11 06:54 WBC 18.5 H (3.8-10.6) k/uL RBC (4.30-5.90) m/uL Hgb (13.0-17.5) gm/dL Hct (39.0-53.0) % Neutrophils # 15.6 H (1.3-7.7) k/uL Monocytes # 1.1 H (0-1.0) k/uL Sodium (137-145) mmol/L Potassium 5.2 H (3.5-5.1) mmol/L Carbon Dioxide 19 L (22-30) mmol/L BUN 46 H (9-20) mg/dL Creatinine 1.91 H (0.66-1.25) mg/dL Glucose 194 H (74-99) mg/dL POC Glucose (mg/dL) 201 H (70-110) mg/dL Calcium (8.4-10.2) mg/dL Magnesium (1.6-2.3) mg/dL Total Protein (6.3-8.2) g/dL Albumin (3.5-5.0) g/dL Thrombosis Risk Factor Assmnt - DVT/VTE Prophylaxis DVT/VTE Prophylaxis: Pharmacologic Prophylaxis ordered - Choose All That Apply Each Factor Represents 1 point: Obesity (BMI >25) Each Risk Factor Represents 2 Points: Age 61-74 years Thrombosis Risk Factor Assessment Total Risk Factor Score: 3 Thrombosis Risk Factor Assessment Level: Moderate Risk Assessment and Plan Assessment: Dizziness and lightheadedness and near syncopal episode likely due to s ymptomatic bradycardia Paroxysmal atrial fibrillation with slow ventricular response Hypotension currently requiring pressor support History of hypertension Hyperlipidemia Chronic vertigo Diabetes type 2 [id number]-qahcotuiz Osteoarthritis Coronary artery disease status postcardiac catheterization no PCI Previous history of smoking Recent admission with dizziness and falls. DVT prophylaxis. With heparin subcu Plan: Patient is being continued on telemetry and close monitoring in the MICU. Was started on dopamine drip and norepinephrine. Metoprolol is on hold. Cardiology has seen the patient and recommended 2D echocardiogram. We will patient remains bradycardic despite holding metoprolol, cardiology is planning for pacemaker placement. Prognosis is guarded at this time. Time with Patient: Greater than 30
[2021-12-21] MEDS ORDERED: HYDROcodone/APAP 5-325MG 1 EACH TAB PO STA (00:57)
[2021-12-21] MEDS: SODIUM CHLORIDE 0.9% 1,000 ML IV SCH (02:08)
[2021-12-21 05:48] LABS: Calcium 8.7 mg/dL (8.4-10.2); Magnesium 1.8 mg/dL (1.6-2.3); Potassium 4.8 mmol/L (3.5-5.1)
[2021-12-21 06:08] LABS: Basophils % (A) 0 %; Eosinophils # (A) 0.1 k/uL (0-0.7); Eosinophils % (A) 1 %; HCT 33.8 % (39.0-53.0); HGB 10.3 gm/dL (13.0-17.5); Lymphocytes # (A) 1.4 k/uL (1.0-4.8); Lymphocytes % (A) 19 %; MCH 29.1 pg (25.0-35.0); MCHC 30.6 g/dL (31.0-37.0); MCV 95.3 fL (80.0-100.0); Mean Platelet Volume 7.9; Monocytes # (A) 0.5 k/uL (0-1.0); Monocytes % (A) 7 %; Neutrophils # (A) 5.3 k/uL (1.3-7.7); Neutrophils % (A) 71 %; Platelet Count 171 k/uL (150-450); RBC 3.55 m/uL (4.30-5.90); WBC 7.5 k/uL (3.8-10.6)
[2021-12-21] MEDS: NOREPINEPHRINE 4 MG in SODIUM CHLORIDE 0.9% 250 ML IV SCH ×2 (06:31→12:50)
[2021-12-21] MEDS: MAGNESIUM SULFATE-D5W PMX 1 GM in DEXTROSE/WATER 1 100ML.BAG IVPB SCH ×2 (06:50→09:11)
[2021-12-21 06:54] LABS: Glucose,Whole Blood 144 mg/dL (70-110)
[2021-12-21] MEDS: INSULIN ASPART (NovoLOG) 100 UNIT/ML VIAL SQ SCH ×4 (07:13→20:06)
--- NOTE | 2021-12-21 07:45 | CA ---
Transthoracic Echo Report Name: Kyle Bui Age: 71 Gender: M : 1950 Exam Date: 12/20/2021 08:14 Exam Location: [place] [facility] Ht (in): 76 Wt (lb): 302 Ordering Physician: Alessandro Hernandez DO Attending/Referring Phys: Steam Gigger Delfina Sweet RDCS Procedure CPT: Indications: re: LV function Cardiac Hx: Technical Quality: Fair Contrast 1: Total Dose (mL): Contrast 2: Total Dose (mL): MEASUREMENTS (Male / Female) Normal Values 2D ECHO LV Diastolic Diameter PLAX 5.2 cm 4.2 - 5.9 / 3.9 - 5.3 cm LV Systolic Diameter PLAX 2.9 cm IVS Diastolic Thickness 1.4 cm 0.6 - 1.0 / 0.6 - 0.9 cm LVPW Diastolic Thickness 1.5 cm 0.6 - 1.0 / 0.6 - 0.9 cm LV Relative Wall Thickness 0.6 RV Internal Dim ED PLAX 2.9 cm LA Volume 73.4 cm??? 18 - 58 / 22 - 52 cm??? M-MODE Aortic Root Diameter MM 3.0 cm LA Systolic Diameter MM 4.6 cm LA Ao Ratio MM 1.5 AV Cusp Separation MM 2.1 cm DOPPLER AV Peak Velocity 157.0 cm/s AV Peak Gradient 9.9 mmHg LVOT Peak Velocity 120.3 cm/s LVOT Peak Gradient 5.8 mmHg MV Area PHT 3.1 cm??? Mitral E Point Velocity 112.0 cm/s Mitral A Point Velocity 65.7 cm/s Mitral E to A Ratio 1.7 MV Deceleration Time 248.1 ms MV E' Velocity 7.2 cm/s Mitral E to MV E' Ratio 15.5 TR Peak Velocity 268.8 cm/s TR Peak Gradient 28.9 mmHg Right Ventricular Systolic Press 33.9 mmHg FINDINGS Left Ventricle Moderately increased left ventricular wall thickness. Normal left ventricular systolic function with no obvious regional wall motion abnormalities. Left ventricular ejection fraction is estimated at 55 %. Right Ventricle Normal right ventricular size and function. Right ventricular systolic pressure within normal limits. Right Atrium Right atrium not well visualized. Left Atrium Moderately increased left atrial volume. Mildly increased left atrial area. Mitral Valve Structurally normal mitral valve. Mild mitral annular calcification. Mild-to- moderate mitral regurgitation. Aortic Valve Trileaflet aortic valve. Aortic valve sclerosis. No aortic stenosis. No aortic regurgitation. Tricuspid Valve Mild tricuspid regurgitation. Pulmonic Valve Trace pulmonic regurgitation. Pericardium No pericardial effusion. Aorta Normal size aortic root and proximal ascending aorta. CONCLUSIONS Normal left ventricular dimension and systolic function Normal intracardiac valves Previewed by: Dr. Raymond Joseph MD (Electronically Signed) Final Date: 21 December 2021 07:44
[2021-12-21] MEDS: TAMSULOSIN 0.4 MG CAP.ER.24H PO SCH (09:07)
[2021-12-21] MEDS: HEPARIN SODIUM,PORCINE/PF 5,000 UNIT/0.5 ML SYRINGE SQ SCH ×2 (09:07→16:08)
[2021-12-21] MEDS: FLUDROCORTISONE 0.1 MG TAB PO SCH (09:07)
[2021-12-21] MEDS: ASPIRIN 81 MG PO SCH (09:07)
[2021-12-21] MEDS: levETIRAcetam IV 500 MG in SODIUM CHLORIDE 0.9% 100 ML IVPB SCH (09:07)
[2021-12-21] MEDS: DULoxetine HCL 60 MG CAPSULE.DR PO SCH ×2 (09:07→20:03)
[2021-12-21] MEDS: CLOPIDOGREL 75 MG TAB PO SCH (09:07)
--- NOTE | 2021-12-21 09:37 | P.CNNES ---
History of Present Illness Consult date: 12/21/21 Requesting physician: Brianda Mckeon Reason for Consult: jerky movements and possible seizures History of Present Illness: This is a 71-year-old gentleman with history of recurrent transient confusion of unknown etiology benign positional vertigo status post decompression in the right occipital, recurrent falls, lower back pain status post the surgery, recurrent vertigo, diabetes, paroxysmal atrial fibrillation not on ant icoagulation due to recurrent falls but is on dual antiplatelets who presented emergency department because of recurrent lightheadedness associate with bradycardia. Seem to the patient had a witnessed syncopal episode and then was brought to the ED. Patient was hypotensive requiring dopamine and later when he arrived in the ICU requiring norepinephrine because of his low blood pressure. Neurology is consulted for possible seizure activity on 12/20/2021. Patient is known to our neurology team since he has recurrent transient confusion and he had extensive workup in our facility. According to the patient nurse yesterday it seems that the patient had an episode in the afternoon where the he had rolling of his eyes and shaken nonrhythmic of predominantly upper extremity that was very brief and it was less than a minute without post-ictal state. Patient did not have any tongue bite no urinary or bowel incontinence. Patient was in bed and had bed huerta but was not bearing down. It seemed he had another episode today similar but was looking at nurse then had eye rolled back that was brief without any post-ictal state and during today episode he was attempting to talk to nurse. No seem to the patient came in with a heart rate in the 33 and a blood pressure of 83/54. Of note the patient as stated above is known to our neurology team for his repeated that transient confusion and it was the etiology was unclear and the what we wanted to rule out subclinical seizure. Patient had multiple EEG facility which were negative for discharges or seizures. In the past I recommended an epilepsy monitoring unit but the patient stated that he never had it done since he is pursuing following up with [facility] for his dizziness. Dr. Bonilla at [place] the patient last on 12/16/2021 and recommended empiric treatment with antiepileptic if he has any further confusion episodes. Review of Systems Review of system: The 12 point system was reviewed and apparent positive and negative per HPI. Past Medical History Past Medical History: Atrial Fibrillation, Diabetes Mellitus, GERD/Reflux, Hy perlipidemia, Hypertension, Osteoarthritis (OA), Pneumonia, Prostate Disorder Additional Past Medical History / Comment(s): Pt recently admitted to [facility] on 06/03/21 with fall/possible TIA. Other hx: FALLS, falls with fractuers, vertigo, surgeries for compressed brain stem at [facility], diet controlled diabetes/neuropathy bilateral feet and occasionally in both hands fingertips, bilateral mastectomies d/t benign tumors, chronic low back pain, chronic headaches, BPH, ulcerative colitis, benign colon polyps History of Any Multi-Drug Resistant Organisms: MRSA Date of last positivie culture/infection: MRSA-03/11 MDRO Source:: Source unknown-MRSA Past Surgical History: Back Surgery, Breast Surgery, Orthopedic Surgery Additional Past Surgical History / Comment(s): Bilateral mastectomy with right sided lymp node removal, R knee cap removed d/t fracture, Back surgery for herniated disc, brain stem surgeries for decompression-for dizziness and a surgery for spinal fluid leakage, right ankle ORIF, bilateral wrist fractures SX Past Anesthesia/Blood Transfusion Reactions: No Reported Reaction Past Psychological History: No Psychological Hx Reported Additional Psychological History / Comment(s): Pt resides in an apartment alone. He uses a walker to get around in his bathroom but otherwise is mostly in a wheelchair. He does not drive. He has friends that take him places. He has VNA. He has a cleaning lady. He makes microwavable meals. Smoking Status: Former smoker Past Alcohol Use History: None Reported Additional Past Alcohol Use History / Comment(s): STARTED SMOKING AT AGE 18, SMOKE A PIPE GOES THRU A PACK OF PIPE TOBACCO/DAY quit smoking in 2005 Past Drug Use History: None Reported - Past Family History Father History Unknown: Yes Family Medical History: Congestive Heart Failure (CHF) Additional Family Medical History / Comment(s): at 68. Mother History Unknown: Yes Family Medical History: Hypertension Additional Family Medical History / Comment(s): Pulmonary hypertension. at 78. Medications and Allergies Home Medications Medication Instructions Recorded Confirmed Type Atorvastatin [Lipitor] 40 mg PO HS 06/18/20 12/20/21 History Folic Acid 1 mg PO DAILY@1200 #30 tab 12/23/20 12/20/21 Rx Thiamine [Vitamin B-1] 100 mg PO DAILY@1200 #30 tab 12/23/20 12/20/21 Rx Multivitamins, Thera [Multivitamin 1 tab PO DAILY@1200 01/09/21 12/20/21 History (formulary)] Clopidogrel [Plavix] 75 mg PO DAILY #30 tab 04/26/21 12/20/21 Rx Magnesium Oxide [Mag-Ox] 400 mg PO TID 05/05/21 12/20/21 History Pantoprazole Sodium [Protonix] 40 mg PO BID 05/05/21 12/20/21 History Sucralfate [Carafate] 1 gm PO AC-TID 05/05/21 12/20/21 History Tamsulosin [Flomax] 0.4 mg PO DAILY 30 Days #30 cap 05/11/21 12/20/21 Rx Aspirin EC [Ecotrin Low Dose] 81 mg PO DAILY 05/28/21 12/20/21 History DULoxetine HCL [Cymbalta] 60 mg PO BID 08/18/21 12/20/21 History Fludrocortisone [Florinef] 0.1 mg PO DAILY 12/12/21 12/20/21 History Metoprolol Tartrate [Lopressor] 50 mg PO TID 12/12/21 12/20/21 History SILVER sulfADIAZINE Cream 1 applic TOPICAL BID PRN 12/12/21 12/20/21 History [Silvadene 1% Cream] amLODIPine [Norvasc] 5 mg PO DAILY 12/12/21 12/20/21 History Pyridoxine [Vitamin B-6] 50 mg PO DAILY #30 tab 12/14/21 12/20/21 Rx Famotidine [Pepcid] 20 mg PO BID 12/20/21 12/20/21 History Allergies Allergy/AdvReac Type Severity Reaction Status Date / Time cephalexin monohydrate Allergy Anaphylaxis Verified 12/20/21 07:40 [From Keflex] Cephalosporins Allergy Anaphylaxis Verified 12/20/21 07:40 Penicillins Allergy Anaphylaxis Verified 12/20/21 07:40 Physical Examination - Vital Signs Vital Signs: Vital Signs Temp Pulse Resp BP Pulse Ox 12/21/21 08:30 60 17 91 L 12/21/21 08:15 57 L 19 92 L 12/21/21 08:00 97.6 F 56 L 16 91 L 12/21/21 07:45 58 L 12 94 L 12/21/21 07:30 58 L 21 88 L 12/21/21 07:15 60 16 90 L 12/21/21 07:00 60 14 93 L 12/21/21 06:45 60 12 95 12/21/21 06:30 59 L 12 95 12/21/21 06:15 60 12 95 12/21/21 06:00 57 L 8 L 93 L 12/21/21 05:45 59 L 16 94 L 12/21/21 05:30 57 L 9 L 90 L 12/21/21 05:15 57 L 17 94 L 12/21/21 05:00 57 L 12 87 L 12/21/21 04:45 58 L 17 94 L 12/21/21 04:30 60 16 93 L 12/21/21 04:15 58 L 19 94 L 12/21/21 04:00 98 F 58 L 10 L 93 L 12/21/21 03:45 58 L 16 91 L 12/21/21 03:30 60 23 95 12/21/21 03:15 56 L 13 94 L 12/21/21 03:00 59 L 12 95 12/21/21 02:45 57 L 13 94 L 12/21/21 02:30 56 L 23 95 12/21/21 02:15 56 L 17 95 12/21/21 02:00 59 L 24 95 12/21/21 01:45 57 L 16 96 12/21/21 01:30 58 L 14 95 12/21/21 01:15 57 L 13 96 12/21/21 01:00 58 L 14 95 12/21/21 00:45 56 L 12 96 12/21/21 00:30 54 L 14 96 12/21/21 00:15 55 L 18 95 12/21/21 00:00 57 L 12 96/62 91 L 12/20/21 23:45 54 L 18 93 L 12/20/21 23:30 55 L 12 96 12/20/21 23:15 52 L 17 92 L 12/20/21 23:00 54 L 19 91 L 12/20/21 22:45 51 L 15 95 12/20/21 22:30 53 L 20 94 L 12/20/21 22:15 53 L 22 93 L 12/20/21 22:00 53 L 18 95 12/20/21 21:45 55 L 18 95 12/20/21 21:30 55 L 16 96 12/20/21 21:15 56 L 12 96 12/20/21 21:00 56 L 16 95 12/20/21 20:45 55 L 15 95 12/20/21 20:30 54 L 22 95 12/20/21 20:15 53 L 19 96 12/20/21 20:00 98.3 F 53 L 18 109/63 97 12/20/21 18:15 51 L 18 96 12/20/21 18:00 52 L 18 97 12/20/21 17:45 53 L 22 95 12/20/21 17:30 53 L 18 95 12/20/21 17:15 52 L 12 94 L 12/20/21 17:00 52 L 16 94 L 12/20/21 16:45 51 L 21 95 12/20/21 16:30 52 L 22 95 12/20/21 16:15 50 L 22 95 12/20/21 16:00 98.2 F 50 L 17 95 12/20/21 15:45 50 L 22 95 12/20/21 15:30 51 L 18 96 12/20/21 15:15 49 L 25 H 95 12/20/21 15:00 50 L 24 95 12/20/21 14:45 51 L 18 96 12/20/21 14:30 51 L 16 96 12/20/21 14:15 52 L 17 97 12/20/21 14:00 51 L 19 95 12/20/21 13:45 51 L 19 95 12/20/21 13:30 50 L 18 95 12/20/21 13:15 51 L 13 93 L 12/20/21 13:00 50 L 19 95 12/20/21 12:45 49 L 18 94 L 12/20/21 12:30 48 L 16 95 12/20/21 12:15 48 L 19 94 L 12/20/21 12:00 98.2 F 49 L 16 96 12/20/21 11:45 51 L 16 92 L 12/20/21 11:30 47 L 18 94 L 12/20/21 11:15 48 L 19 93 L 12/20/21 11:00 48 L 20 94 L 12/20/21 10:45 49 L 20 94 L 12/20/21 10:30 49 L 16 109/63 91 L 12/20/21 10:15 49 L 16 104/62 89 L 12/20/21 10:00 49 L 15 74/53 95 12/20/21 09:45 52 L 21 93/53 95 12/20/21 09:30 53 L 22 81/50 80 L Intake and Output 12/20/21 12/21/21 12/21/21 22:59 06:59 14:59 Intake Total 4761.497 2533.722 590 Output Total 1550 1675 600 Balance 170.546 -577.278 -10 Intake: IV 875 1000 250 Sodium Chloride 0.9% 1, 875 1000 250 000 ml @ 125 mls/hr IV . Q8H [facility] Rx#:[id number] Intake, IV Titration 505.546 97.722 100 Amount DOPamine DRIP 800 mg In 386.627 97.722 Dextrose/Water 1 250ml. bag @ 5 MCG/KG/MIN 11.694 mls/hr IV .[id number] [facility] Rx#:[id number] Norepinephrine 4 mg In 18.919 Sodium Chloride 0.9% 250 ml @ 0.05 MCG/KG/MIN 26. 156 mls/hr IV .[id number] [facility] Rx#:[id number] levETIRAcetam IV 1,000 mg 100 In Saline 1 100ml.bag @ 400 mls/hr IVPB ONCE STA Rx#:[id number] levETIRAcetam IV 500 mg 100 In Sodium Chloride 0.9% 100 ml @ 400 mls/hr IVPB Q12HR [facility] Rx#:[id number] Oral 340 240 Output: Urine 1550 1675 600 Other: Voiding Method Indwelling Catheter Indwelling Catheter Weight 143.1 kg ABP, PAP, CO, CI - Last 8 Hours Arterial Blood Pressure 155/57 Arterial Blood Pressure 152/54 Arterial Blood Pressure 147/55 Arterial Blood Pressure 152/53 Arterial Blood Pressure 156/60 Arterial Blood Pressure 153/63 Arterial Blood Pressure 138/55 Arterial Blood Pressure 140/54 Arterial Blood Pressure 132/51 Arterial Blood Pressure 131/53 Arterial Blood Pressure 124/49 Arterial Blood Pressure 128/51 Arterial Blood Pressure 116/48 Arterial Blood Pressure 135/54 Arterial Blood Pressure 118/47 Arterial Blood Pressure 123/50 Arterial Blood Pressure 122/51 Arterial Blood Pressure 116/48 Arterial Blood Pressure 118/50 Arterial Blood Pressure 120/51 Arterial Blood Pressure 123/56 Arterial Blood Pressure 119/50 Arterial Blood Pressure 117/50 Arterial Blood Pressure 121/50 Arterial Blood Pressure 116/50 Arterial Blood Pressure 113/50 Arterial Blood Pressure 115/50 Arterial Blood Pressure 116/50 Arterial Blood Pressure 122/52 GENERAL: The patient is lying in bed and is not in acute distress. CHEST: The heart rate is regular rate rhythm. No murmurs to auscultation. LUNG: Clear to auscultation bilaterally no wheezing noted throughout. Not labored breathing. ABDOMEN/GI: Bowel sounds present in all 4 quadrants. No tenderness to palpation throughout. NEUROLOGICAL: Higher mental function: The patient is awake, alert, oriented to self, place and time. Patient is following commands. No aphasia and no neglect. Cranial nerves: The pupils are round, equal and reactive to light and accommodation. Visual bishop are full to confrontation throughout. Extraocular movement is intact no nystagmus is noted. Facial sensation is normal to touch throughout. The facial strength is normal throughout. Hearing is normal bilaterally to hand rub. Tongue is midline and moved [id number] without any d ifficulty. No dysarthria is noted. Shoulder shrug is normal bilaterally. Motor: The strength is 5 over 5 throughout. Normal tone and bulk. Cerebellum: Normal finger to nose bilaterally. Sensation: Sensation is normal to touch throughout. Reflexes (right/left):1+ throughout. Plantars are downgoing bilaterally. Results - Laboratory Findings CBC and BMP: 12/21/21 05:00 12/21/21 05:00 Abnormal Lab Findings: Abnormal Labs 12/19/21 12/19/21 12/19/21 21:15 21:15 23:47 WBC RBC 3.30 L Hgb 10.0 L D Hct 31.4 L MCHC Neutrophils # Monocytes # Sodium 136 L Potassium Carbon Dioxide BUN 43 H Creatinine 1.70 H Glucose 116 H POC Glucose (mg/dL) 184 H Hemoglobin A1c Calcium 8.1 L Magnesium 1.5 L Total Protein 5.2 L Albumin 3.2 L Ur Leukocyte Esterase Hyaline Casts Urine Mucus 12/20/21 12/20/21 12/20/21 04:11 04:11 04:11 WBC 18.5 H RBC Hgb Hct MCHC Neutrophils # 15.6 H Monocytes # 1.1 H Sodium Potassium 5.2 H Carbon Dioxide 19 L BUN 46 H Creatinine 1.91 H Glucose 194 H POC Glucose (mg/dL) Hemoglobin A1c 6.4 H Calcium Magnesium Total Protein Albumin Ur Leukocyte Esterase Hyaline Casts Urine Mucus 12/20/21 12/20/21 12/20/21 06:54 11:25 12:09 WBC RBC Hgb Hct MCHC Neutrophils # Monocytes # Sodium Potassium Carbon Dioxide BUN Creatinine Glucose POC Glucose (mg/dL) 201 H 169 H Hemoglobin A1c Calcium Magnesium Total Protein Albumin Ur Leukocyte Esterase Trace H Hyaline Casts 3 H Urine Mucus Rare H 12/20/21 12/20/21 12/21/21 18:21 20:03 05:00 WBC RBC Hgb Hct MCHC Neutrophils # Monocytes # Sodium Potassium Carbon Dioxide BUN 30 H Creatinine Glucose 124 H POC Glucose (mg/dL) 152 H 141 H Hemoglobin A1c Calcium Magnesium Total Protein Albumin Ur Leukocyte Esterase Hyaline Casts Urine Mucus 12/21/21 12/21/21 05:00 06:53 WBC RBC 3.55 L Hgb 10.3 L Hct 33.8 L MCHC 30.6 L Neutrophils # Monocytes # Sodium Potassium Carbon Dioxide BUN Creatinine Glucose POC Glucose (mg/dL) 144 H Hemoglobin A1c Calcium Magnesium Total Protein Albumin Ur Leukocyte Esterase Hyaline Casts Urine Mucus Assessment and Plan Assessment: Two episodes of rolling of eye backward and jerking of extremities that lasted for <1minute without post-ictal states (during second episode attempting to kevyn k). Does not appears clear seizures. Unsure if cardiogenic in nature. Recent syncopal episode with profound bradycardia seems cardiogenic in nature. Recurrent transient confusion of unclear etiology, rule out subclinical seizure. Patient had extensive testing in our facility (multiple routine EEG which were negative for discharges or seizures). Benign positional vertigo status post decompression in the right occipital Recurrent falls due to his recurrent transient confusion Lower back pain status post the surgery Recurrent vertigo, diabetes Paroxysmal atrial fibrillation not on anticoagulation due to recurrent falls but is on dual antiplatelets Plan: Because of his recurrent transient confusion and our concern for possible subclinical seizure: I started the patient on empiric Keppra 750 mg twice a day. I loaded the patient on Keppra of 1 g on 12/20/2021. Recommend epilepsy moderate units as stated in our previous hospital visits and that needs to be done as an outpatient to rule out any subclinical seizure and it's pending to be done. If that C moderate units rules out any seizure or discharges then recommend tapering the antiepileptic drug as an outpatient. Cardiology on board Defer the rest of the medical management to the primary team. Recommend the patient to follow-up with a local neurologist as an outpatient within 1-2 weeks and to continue to follow up with [facility] for his vertigo. I discussed with the patient as well as his nurse. Otherwise no additional workup is needed. Thank you for the consultation. Kareem Linder M.D. Neuro-hospitalist Time with Patient: Greater than 30
--- NOTE | 2021-12-21 09:47 | P.PN ---
Subjective Progress Note Date: 12/21/21 Patient is seen in the ICU resting comfortably in bed in no signs of acute distress. He denies chest pain or increased shortness of breath. His dopamine and Levophed had been titrated off and he is maintaining stable blood pressure and heart rate. Blood pressure 155/57 and a heart rate of 60. Will continue to hold beta blockers due to bradycardia. Believed hypotension and bradycardia was secondary to beta blockers. Patient remains in sinus rhythm with occasional PVCs on telemetry. His echocardiogram showed a normal LV function with mild to moderate mitral regurgitation. Objective - Vital Signs Vital signs: Vital Signs Temp 97.6 F 12/21/21 08:00 Pulse 60 12/21/21 08:30 Resp 17 12/21/21 08:30 BP 96/62 12/21/21 06:00 Pulse Ox 91 L 12/21/21 08:30 FiO2 98 12/19/21 21:25 Intake & Output 12/20/21 12/21/21 12/21/21 18:59 06:59 18:59 Intake Total 2691.595 1709.349 590 Output Total 2150 2500 600 Balance 541.595 -790.651 -10 Weight 143.1 kg Intake: IV 1500 1375 250 Sodium Chloride 0.9% 1, 1500 1375 250 000 ml @ 125 mls/hr IV . Q8H [facility] Rx#:[id number] Intake, IV Titration 711.595 234.349 100 Amount DOPamine DRIP 800 mg In 500.000 234.349 Dextrose/Water 1 250ml. bag @ 5 MCG/KG/MIN 11.694 mls/hr IV .[id number] [facility] Rx#:[id number] Norepinephrine 4 mg In 111.595 Sodium Chloride 0.9% 250 ml @ 0.05 MCG/KG/MIN 26. 156 mls/hr IV .[id number] [facility] Rx#:[id number] levETIRAcetam IV 1,000 mg 100 In Saline 1 100ml.bag @ 400 mls/hr IVPB ONCE STA Rx#:[id number] levETIRAcetam IV 500 mg 100 In Sodium Chloride 0.9% 100 ml @ 400 mls/hr IVPB Q12HR [facility] Rx#:[id number] Oral 480 100 240 Output: Urine 2150 2500 600 Other: Voiding Method Indwelling Catheter Indwelling Catheter # Voids 0 ABP, PAP, CO, CI - Last Documented Arterial Blood Pressure 155/57 - Exam PHYSICAL EXAM: VITAL SIGNS: Reviewed. GENERAL: Well-developed in no acute distress. HEENT: Head is normocephalic. Pupils are equal, round. Sclerae anicteric. Mucous membranes of the mouth are moist. NECK: Supple. No JVD or thyromegaly RESPIRATORY: Respirations even and unlabored. Lungs diminished to auscultation bilaterally. CARDIO: Regular rate and rhythm. S1 and S2 heard. No murmur or gallops. EXTREMITIES: Normal range of motion. No clubbing or cyanosis. Peripheral pulses intact. Negative for bilateral lower extremity edema NEURO: Orientated to person, time, mood is appropriate - Labs CBC & Chem 7: 12/21/21 05:00 12/21/21 05:00 Labs: Abnormal Lab Results - Last 24 Hours (Table) 12/20/21 12/20/21 12/20/21 Range/Units 04:11 11:25 12:09 RBC (4.30-5.90) m/uL Hgb (13.0-17.5) gm/dL Hct (39.0-53.0) % MCHC (31.0-37.0) g/dL BUN (9-20) mg/dL Glucose (74-99) mg/dL POC Glucose (mg/dL) 169 H (70-110) mg/dL Hemoglobin A1c 6.4 H (0.0-6.0) % Ur Leukocyte Esterase Trace H (Negative) Hyaline Casts 3 H (0-2) /lpf Urine Mucus Rare H (None) /hpf 12/20/21 12/20/21 12/21/21 Range/Units 18:21 20:03 05:00 RBC (4.30-5.90) m/uL Hgb (13.0-17.5) gm/dL Hct (39.0-53.0) % MCHC (31.0-37.0) g/dL BUN 30 H (9-20) mg/dL Glucose 124 H (74-99) mg/dL POC Glucose (mg/dL) 152 H 141 H (70-110) mg/dL Hemoglobin A1c (0.0-6.0) % Ur Leukocyte Esterase (Negative) Hyaline Casts (0-2) /lpf Urine Mucus (None) /hpf 12/21/21 12/21/21 Range/Units 05:00 06:53 RBC 3.55 L (4.30-5.90) m/uL Hgb 10.3 L (13.0-17.5) gm/dL Hct 33.8 L (39.0-53.0) % MCHC 30.6 L (31.0-37.0) g/dL BUN (9-20) mg/dL Glucose (74-99) mg/dL POC Glucose (mg/dL) 144 H (70-110) mg/dL Hemoglobin A1c (0.0-6.0) % Ur Leukocyte Esterase (Negative) Hyaline Casts (0-2) /lpf Urine Mucus (None) /hpf Assessment and Plan Assessment: Syncope concerning for cardiogenic source related to bradycardia Sinus bradycardia, intermittent Afib Paroxysmal atrial fibrillation not on anticoagulation leave to be due to a history of frequent falls Hypotension, currently on low dose pressors History of hypertension Hyperlipidemia Chronic vertigo Coronary artery disease with 50% lesion of LAD Plan: Continue to hold beta blockers due to bradycardia not on Anticoagulations due to history of recent falls Continue with all other current cardiac medications Continue with telemetry monitoring Further recommendations based on clinical course The above impression and plan of care have been discussed and directed by the signing physician. Melissa Hurt, nurse practitioner, acting as scribe for bouchra penny.
[2021-12-21 11:28] LABS: Glucose,Whole Blood 133 mg/dL (70-110)
--- NOTE | 2021-12-21 13:27 | CDI ---
Documentation Clarification Form Date: 12/21/2021 01:27:00 PM From: Jeana Clemens RN, CCDS Admit Date: 12/19/2021 10:23:00 PM Patient Name: Kyle Bui Visit Number: [id number] Discharge Date: ATTENTION: The Clinical Documentation Specialists (CDI) and [facility] Coding Staff appreciate your assistance in clarifying documentation. Please respond to the clarification below the line at the bottom and electronically sign. The CDI & [facility] Coding staff will review the response and follow-up if needed. Please note: Queries are made part of the Legal Health Record. If you have any questions, please contact the author of this message via ITS. Dr. Glory Zarate There is documentation of syncope concerning for cariogenic source related to bradycardia. Hypotension, currently on low dose pressor. Additional clarification is requested. 12/20 Cardiology consult: Syncope concerning for cardiogenic source related to bradycardia. Hypotension, currently on low dose pressor. History/Risk Factors: Diabetes Mellitus, Hypertension, Chronic vertigo, Atrial Fibrillation Clinical Indicators: 71-year-old male present with lightheadedness, bradycardia with hypotension. He had low blood pressure requiring pressor support. EKG: Junctional rhythm rate of 32 12/19 (21:19) Vital signs: 83/54 33 16 97.6 94 % 2/L 12/19 (22:34) 70/41 51 12/19 (22:47) 75/46 56 16 92 % 3/L 12/19 Labs: BUN 43, CR 1.70 12/20 ECHO: EF 55 % Treatment: ICU/Telemetry monitoring 12/20 Right femoral triple-lumen catheter 12/20 Left radial arterial line .9NS 1,000 and 500 ml IV Bolus 12/19 Levophed 4 MG IV per orders 12/20-12/21 Dopamine 800 MG IV per orders 12/19-12/21 Can you please further clarify hypotension secondary to bradycardia and if you are treating? [ ] Hypotension with cardiogenic shock [ ] Hypotension without shock [ ] Other, please specify [ ] Unable to determine (Template Last Revised: May 2020) MTDD
[2021-12-21] MEDS: HYDROcodone/APAP 5-325MG 1 EACH TAB PO PRN (16:08)
--- NOTE | 2021-12-21 16:19 | P.PN ---
Subjective Progress Note Date: 12/21/21 Principal diagnosis: syncope This is a 71-year-old white male with history of multiple medical problems including coronary artery disease, 50% stenosis of LAD, paroxysmal atrial f ibrillation, hypertension, dyslipidemia, patient presented to ER yesterday with recurrent lightheadedness associated with bradycardia., Also associated with vertigo. Apparently the patient had a witnessed syncopal episode yesterday, brought into the ER and he was found to have atrial fibrillation and heart rate of 30/m. Patient was also hypotensive requiring dopamine and later on when he arrived to the ICU patient required norepinephrine for low blood pressure in spite of dopamine at 20 mcg/kg/m. Apparently the patient is normally on beta blockers and his overall is presently on hold. This morning the patient is down on the dopamine to 15 mcg/kg/m, and his norepinephrine is at 0.03 mcg/kg/m. After evaluating the patient, I have considered the patient isn't requiring dopamine and norepinephrine, went ahead and recommended a central line which was placed in the right groin, and a left radial arterial line was also placed for close monitoring of his hemodynamic status. Patient felt better today compared to yesterday, and he does not seem to be in any distress. Chest x-ray on adm ission showed mostly minimal subsegmental atelectasis at the left base no evidence of congestive heart failure. Patient did receive almost 3 L of fluid boluses yesterday since admission and is admitted fluid presently is at 1 25 mL per hour. Reevaluated today on 12/21/21, patient is doing well remains in the ICU he is off norepinephrine is off dopamine, has IV fluid at 1 25 mL per hour, is also on Florinef at 0.1 mg daily his serum cortisol level is normal. Patient was seen by neurology and he is concerned about the possibility of seizures agent was started on Keppra. Pulmonary-kelley the patient is doing well, I was planning to send him back to medical floor, however he developed another episode of near syncope and we kept him back in the ICU. His presyncope this time with associated with low blood pressure that recovered nicely on its own.CBC is relatively normal electrolytes are normal renal profile is normal with creatinine 1.21 Objective - Vital Signs Vital signs: Vital Signs Temp 97.7 F 12/21/21 16:00 Pulse 68 12/21/21 16:00 Resp 18 12/21/21 16:00 BP 95/56 12/21/21 11:00 Pulse Ox 92 L 12/21/21 16:00 FiO2 98 12/19/21 21:25 Intake & Output 12/20/21 12/21/21 12/21/21 18:59 06:59 18:59 Intake Total 2691.595 7394.876 6828 Output Total 2150 2500 1720 Balance 541.595 -790.651 -520 Weight 143.1 kg Intake: IV 1500 1375 620 Sodium Chloride 0.9% 1, 1500 1375 620 000 ml @ 20 mls/hr IV . Q24H YAR[facility]EL Rx#:[id number] Intake, IV Titration 711.595 234.349 100 Amount DOPamine DRIP 800 mg In 500.000 234.349 Dextrose/Water 1 250ml. bag @ 5 MCG/KG/MIN 11.694 mls/hr IV .[id number] YARIEL Rx#:[id number] Norepinephrine 4 mg In 111.595 Sodium Chloride 0.9% 250 ml @ 0.05 MCG/KG/MIN 26. 156 mls/hr IV .[id number] YARIEL Rx#:[id number] levETIRAcetam IV 1,000 mg 100 In Saline 1 100ml.bag @ 400 mls/hr IVPB ONCE STA Rx#:[id number] levETIRAcetam IV 500 mg 100 In Sodium Chloride 0.9% 100 ml @ 400 mls/hr IVPB Q12HR Y[facility] Rx#:[id number] Oral 480 100 480 Output: Urine 2150 2500 1720 Other: Voiding Method Indwelling Catheter Indwelling Catheter Indwelling Catheter # Voids 0 # Bowel Movements 1 ABP, PAP, CO, CI - Last Documented Arterial Blood Pressure 171/58 - Exam Physical Exam: Revealed 71-year-old white male in no distress on 3 L nasal cannula Head: Atraumatic, normocephalic. HEENT:[Neck is supple.] [No neck masses.] [No thyromegaly.] [No JVD.] Chest: [Clear throughout, no crackles, no rhonchi, no wheezes.] Cardiac Exam: [Normal S1 and S2, no S3 gallop, no murmur.] Abdomen: [Soft, nontender, no megaly, no rebound, no guarding, normal bowel sounds.] Extremities: [No clubbing, no edema, no cyanosis.] Neurological Exam: [No focal neurologic deficit.] Alert oriented 3 Psychiatric: Normal mood affect and normal mental status exam. Skin: No rashes - Labs CBC & Chem 7: 12/21/21 05:00 12/21/21 05:00 Labs: Abnormal Lab Results - Last 24 Hours (Table) 12/20/21 12/20/21 12/20/21 Range/Units 04:11 18:21 20:03 RBC (4.30-5.90) m/uL Hgb (13.0-17.5) gm/dL Hct (39.0-53.0) % MCHC (31.0-37.0) g/dL BUN (9-20) mg/dL Glucose (74-99) mg/dL POC Glucose (mg/dL) 152 H 141 H (70-110) mg/dL Hemoglobin A1c 6.4 H (0.0-6.0) % 12/21/21 12/21/21 12/21/21 Range/Units 05:00 05:00 06:53 RBC 3.55 L (4.30-5.90) m/uL Hgb 10.3 L (13.0-17.5) gm/dL Hct 33.8 L (39.0-53.0) % MCHC 30.6 L (31.0-37.0) g/dL BUN 30 H (9-20) mg/dL Glucose 124 H (74-99) mg/dL POC Glucose (mg/dL) 144 H (70-110) mg/dL Hemoglobin A1c (0.0-6.0) % 12/21/21 Range/Units 11:27 RBC (4.30-5.90) m/uL Hgb (13.0-17.5) gm/dL Hct (39.0-53.0) % MCHC (31.0-37.0) g/dL BUN (9-20) mg/dL Glucose (74-99) mg/dL POC Glucose (mg/dL) 133 H (70-110) mg/dL Hemoglobin A1c (0.0-6.0) % Assessment and Plan Assessment: Impression: Syncope secondary to profound bradycardia/cardiogenic in nature Intermittent atrial fibrillation with sinus bradycardia possible seizures Hypotension secondary to bradycardia requiring dopamine and norepinephrine, both have been discontinued today. History of underlying coronary artery disease History of paroxysmal atrial fibrillation Dyslipidemia essential hypertension GERD without esophagitis Type 2 diabetes Degenerative joint disease History of breast cancer requiring bilateral meniscectomies History of ulcerative colitis Recommendation: Continue to monitor in the ICU Continue IV fluids. neurology continued to follow regarding his questionable seizure and continue Keppra possible transfer to a cardiac floor in the next 24 hours Time with Patient: Less than 30
[2021-12-21 16:41] LABS: Glucose,Whole Blood 131 mg/dL (70-110)
[2021-12-21 20:02] LABS: Glucose,Whole Blood 148 mg/dL (70-110)
[2021-12-21] MEDS: FAMOTIDINE 20 MG TAB PO SCH (20:03)
[2021-12-21] MEDS: ATORVASTATIN 40 MG TAB PO SCH (20:03)
--- NOTE | 2021-12-21 22:55 | P.PN ---
Subjective Progress Note Date: 12/21/21 Patient is a 71-year-old man with a known history of hypertension, hyperlipidemia, diabetes type 2 [id number], chronic vertigo, osteoarthritis, atrial fibrillation not on anticoagulation, history of TIA and previous history of smoking and other multiple medical problems presents to ER with complaints of dizziness and lightheaded started since yesterday afternoon. EMS was called and patient was found to have bradycardia with heart rate in 30s. Patient felt like passing out. Denied any complaints of chest pain or shortness of breath. No nausea or vomiting or diarrhea. Patient was recently admitted to the hospital for dizziness and lightheadedness and fall and was seen by neurology and work-up including EEG was done. Patient follows with [facility] for chronic vertigo and is being evaluated for spinal stimulator placement. Patient is on metoprolol 50 mg twice daily at home. Chest x-ray showed mild subsegmental atelectasis left lung base without change. Normal heart. EKG showed sinus bradycardia with heart rate 32 and repeat EKG showed atrial fibrillation with slow ventricular response. Laboratory data showed WBC 8.7 hemoglobin 10.0 and platelets 176 Sodium 136 potassium 5.1 chloride 105 bicarb is 22 BUN 43 and creatinine 1.7 Magnesium 1.5 Cortisol level is 27. Patient was hypotensive on admission with blood pressure 83/54 and heart rate 33. 12/21/2021 Patient is currently lying in the bed. Awake alert and oriented x3. R remains in MICU. Dizziness when he is getting up in the bed Heart rate is maintained in 60s now. Metoprolol on hold. Dopamine drip and Lev ophed drip has been discontinued. Blood pressure is improved. Patient remains in sinus rhythm. Today echocardiogram showed normal LV function and mild to moderate mitral regurgitation. Patient denied any complaints of chest pain or shortness of breath. No nausea vomiting abdominal pain or diarrhea Laboratory data showed WBC 7.4 hemoglobin 10.3 and platelets 171 BUN 30 and creatinine 1.21 and blood sugar is controlled. Magnesium 1.8. Current medications reviewed. Objective - Vital Signs Vital signs: Vital Signs Temp 97.4 F L 12/21/21 20:00 Pulse 66 12/21/21 20:00 Resp 18 12/21/21 20:00 BP 124/113 12/21/21 20:00 Pulse Ox 95 12/21/21 20:00 FiO2 98 12/19/21 21:25 Intake & Output 12/21/21 12/21/21 12/22/21 06:59 18:59 06:59 Intake Total 3869.158 4619 60 Output Total 2500 2720 700 Balance -790.651 -1240 -640 Weight 143.1 kg Intake: IV 1375 660 60 Sodium Chloride 0.9% 1, 1375 660 60 000 ml @ 20 mls/hr IV . Q24H YARIEL Rx#:[id number] Intake, IV Titration 234.349 100 Amount DOPamine DRIP 800 mg In 234.349 Dextrose/Water 1 250ml. bag @ 5 MCG/KG/MIN 11.694 mls/hr IV .[id number] YARIEL Rx#:[id number] levETIRAcetam IV 500 mg 100 In Sodium Chloride 0.9% 100 ml @ 400 mls/hr IVPB Q12HR YARIEL Rx#:[id number] Oral 100 720 Output: Urine 2500 2720 700 Other: Voiding Method Indwelling Catheter Indwelling Catheter # Bowel Movements 1 ABP, PAP, CO, CI - Last Documented Arterial Blood Pressure 149/49 - Exam PHYSICAL EXAMINATION: Patient is lying in the bed comfortably, no acute distress, awake alert and oriented.. HEENT: Normocephalic. Neck is supple. Pupils reactive. Nostrils clear. Oral cavity is moist. Neck reveals no JVD, carotid bruits, or thyromegaly. CHEST EXAMINATION: Trachea is central. Symmetrical expansion. Lung bishop clear to auscultation and percussion. CARDIAC: Normal S1, S2 with no gallops. No murmurs ABDOMEN: Soft. Bowel sounds present. Nontender. No organomegaly. No abdominal bruits. Extremities: reveal no edema. No clubbing or cyanosis Neurologically awake, alert, oriented x3 with well-coordinated movements. No focal deficits noted Skin: No rash or skin lesions. Psychiatric: Coperative. Nonsuicidal, Musculoskeletal: No joint swelling or deformity. Normal range of motion. - Labs CBC & Chem 7: 12/21/21 05:00 12/21/21 05:00 Labs: Abnormal Lab Results - Last 24 Hours (Table) 12/21/21 12/21/21 12/21/21 Range/Units 05:00 05:00 06:53 RBC 3.55 L (4.30-5.90) m/uL Hgb 10.3 L (13.0-17.5) gm/dL Hct 33.8 L (39.0-53.0) % MCHC 30.6 L (31.0-37.0) g/dL BUN 30 H (9-20) mg/dL Glucose 124 H (74-99) mg/dL POC Glucose (mg/dL) 144 H (70-110) mg/dL 12/21/21 12/21/21 12/21/21 Range/Units 11:27 16:40 20:00 RBC (4.30-5.90) m/uL Hgb (13.0-17.5) gm/dL Hct (39.0-53.0) % MCHC (31.0-37.0) g/dL BUN (9-20) mg/dL Glucose (74-99) mg/dL POC Glucose (mg/dL) 133 H 131 H 148 H (70-110) mg/dL Assessment and Plan Assessment: Dizziness and lightheadedness and near syncopal episode likely due to symptomatic bradycardia. improving HR Paroxysmal atrial fibrillation with slow ventricular responseNot on anticoagulation due to recent falls. Hypotension currently requiring pressor support History of hypertension Hyperlipidemia Chronic vertigo Diabetes type 2 [id number] Osteoarthritis Coronary artery disease status postcardiac catheterization no PCI Previous history of smoking Recent admission with dizziness and falls. DVT prophylaxis. With heparin subcu Plan: Patient is being continued on telemetry and close monitoring in the MICU. off dopamine drip and norepinephrine. Metoprolol is on hold. Cardiology has seen the patient and recommended 2D echocardiogram-showed normal EF. IF patient remains bradycardic despite holding metoprolol, cardiology is planning for pacemaker placement. Prognosis is guarded at this time. Time with Patient: Greater than 30
[2021-12-22] MEDS: ACETAMINOPHEN TAB 325 MG TAB PO PRN (00:07)
[2021-12-22] MEDS: HEPARIN SODIUM,PORCINE/PF 5,000 UNIT/0.5 ML SYRINGE SQ SCH ×4 (00:08→23:25)
[2021-12-22] MEDS: HYDROcodone/APAP 5-325MG 1 EACH TAB PO PRN ×2 (03:20→21:57)
[2021-12-22 04:54] LABS: HCT 30.6 % (39.0-53.0); MCH 29.9 pg (25.0-35.0); MCHC 32.8 g/dL (31.0-37.0); MCV 91.3 fL (80.0-100.0); Platelet Count 165 k/uL (150-450); RBC 3.35 m/uL (4.30-5.90); RDW 14.1 % (11.5-15.5); WBC 6.7 k/uL (3.8-10.6)
[2021-12-22 05:10] LABS: African American GFR (CKD) >90 (>60 ml/min/1.73 sqM); Anion Gap 8 mmol/L; Blood Urea Nitrogen 20 mg/dL (9-20); Calcium 8.5 mg/dL (8.4-10.2); Carbon Dioxide 25 mmol/L (22-30); Chloride 104 mmol/L (98-107); Glucose 102 mg/dL (74-99); Magnesium 1.5 mg/dL (1.6-2.3); Non-African American GFR(CKD) 83 (>60 ml/min/1.73 sqM); Potassium 4.4 mmol/L (3.5-5.1); Sodium 137 mmol/L (137-145)
[2021-12-22 06:21] LABS: Glucose,Whole Blood 101 mg/dL (70-110)
[2021-12-22] MEDS: MAGNESIUM SULFATE-D5W PMX 1 GM in DEXTROSE/WATER 1 100ML.BAG IVPB SCH ×2 (06:26→11:18)
[2021-12-22] MEDS: INSULIN ASPART (NovoLOG) 100 UNIT/ML VIAL SQ SCH ×4 (06:33→20:19)
[2021-12-22] MEDS ORDERED: diphenhydrAMINE 50 MG/ML 1 ML VIAL ONE (08:12)
[2021-12-22] MEDS ORDERED: diphenhydrAMINE 50 MG/ML 1 ML VIAL IVP STA (08:13)
[2021-12-22] MEDS ORDERED: DEXAMETHASONE SOD PHOSPHATE 4 MG/ML 1 ML VIAL IVP STA (08:13)
--- NOTE | 2021-12-22 09:49 | P.PN ---
Subjective Progress Note Date: 12/22/21 Patient is examined resting comfortably in bed in the ICU with no signs of acute distress. He continues to deny increased shortness of breath or chest pain. He is doing well maintaining his blood pressure and heart rate. Blood pressure is 118/74 heart rate 80. He has not had any further episodes of hypotension or syncope. He continues to be sinus rhythm with an occasional PVC on telemetry. Patient did have an allergic reaction this morning he had a warm rash on his arms and thighs, itching and said his tongue felt swollen. There is no visible signs of tongue swelling. he was given Benadryl and Decadron. The cause is unknown at this time. It is believed that the sulfate and the magnesium he received this morning caused the reaction. Will continue to hold beta blockers due to bradycardia. Patient will have his lines pulled today and transferred to [facility] Objective - Vital Signs Vital signs: Vital Signs Temp 98.1 F 12/22/21 08:00 Pulse 80 12/22/21 09:00 Resp 16 12/22/21 09:00 BP 118/74 12/22/21 09:00 Pulse Ox 94 L 12/22/21 09:00 FiO2 98 12/19/21 21:25 Intake & Output 12/21/21 12/22/21 12/22/21 18:59 06:59 18:59 Intake Total 1480 960 160 Output Total 2720 2900 1105 Balance -1240 -1940 -945 Weight 138.7 kg Intake: IV 660 240 40 Sodium Chloride 0.9% 1, 660 240 40 000 ml @ 20 mls/hr IV . Q24H YARIEL Rx#:[id number] Intake, IV Titration 100 Amount levETIRAcetam IV 500 mg 100 In Sodium Chloride 0.9% 100 ml @ 400 mls/hr IVPB Q12HR YARIEL Rx#:[id number] Oral 720 720 120 Output: Urine 2720 2900 1105 Other: Voiding Method Indwelling Catheter Indwelling Catheter Indwelling Catheter # Bowel Movements 1 ABP, PAP, CO, CI - Last Documented Arterial Blood Pressure 149/49 - Exam PHYSICAL EXAM: VITAL SIGNS: Reviewed. GENERAL: Well-developed in no acute distress. HEENT: Head is normocephalic. Pupils are equal, round. Sclerae anicteric. Mucous membranes of the mouth are moist. NECK: Supple. No JVD or thyromegaly RESPIRATORY: Respirations even and unlabored. Lungs diminished to auscultation bilaterally. CARDIO: Regular rate and rhythm. S1 and S2 heard. No murmur or gallops. EXTREMITIES: Normal range of motion. No clubbing or cyanosis. Peripheral pulses intact. Negative for bilateral lower extremity edema NEURO: Orientated to person, time, mood is appropriate - Labs CBC & Chem 7: 12/22/21 04:40 12/22/21 04:40 Labs: Abnormal Lab Results - Last 24 Hours (Table) 12/21/21 12/21/21 12/21/21 Range/Units 11:27 16:40 20:00 RBC (4.30-5.90) m/uL Hgb (13.0-17.5) gm/dL Hct (39.0-53.0) % Glucose (74-99) mg/dL POC Glucose (mg/dL) 133 H 131 H 148 H (70-110) mg/dL Magnesium (1.6-2.3) mg/dL 12/22/21 12/22/21 Range/Units 04:40 04:40 RBC 3.35 L (4.30-5.90) m/uL Hgb 10.0 L (13.0-17.5) gm/dL Hct 30.6 L (39.0-53.0) % Glucose 102 H (74-99) mg/dL POC Glucose (mg/dL) (70-110) mg/dL Magnesium 1.5 L (1.6-2.3) mg/dL Assessment and Plan Assessment: Syncope concerning for cardiogenic source related to bradycardia Sinus bradycardia, intermittent Afib Paroxysmal atrial fibrillation not on anticoagulation leave to be due to a history of frequent falls Hypotension, currently on low dose pressors History of hypertension Hyperlipidemia Chronic vertigo Coronary artery disease with 50% lesion of LAD Plan: Continue to hold beta blockers due to bradycardia He is not on Anticoagulations due to history of recent falls and syncope Continue with all other current cardiac medications Continue with telemetry monitoring Further recommendations based on clinical course The above impression and plan of care have been discussed and directed by the signing physician. Melissa Hurt, nurse practitioner, acting as scribe for [facility] physician.
--- NOTE | 2021-12-22 10:12 | P.PN ---
Subjective Progress Note Date: 12/22/21 According to the nurse the patient has not had any further seizure-like episodes or syncopal episodes. Today he had a rash throughout the body he felt and warm and felt was allergic reaction to something so he received Benadryl and steroid and resolved. Per the nurse he received Magnesium earlier today and unsure exact allergic reaction if due to drug or food. Otherwise patient is feeling well. Objective - Vital Signs Vital signs: Vital Signs Temp 98.1 F 12/22/21 08:00 Pulse 80 12/22/21 09:00 Resp 16 12/22/21 09:00 BP 118/74 12/22/21 09:00 Pulse Ox 94 L 12/22/21 09:00 FiO2 98 12/19/21 21:25 Intake & Output 12/21/21 12/22/21 12/22/21 18:59 06:59 18:59 Intake Total 1480 960 160 Output Total 2720 2900 1105 Balance -1240 -1940 -945 Weight 138.7 kg Intake: IV 660 240 40 Sodium Chloride 0.9% 1, 660 240 40 000 ml @ 20 mls/hr IV . Q24H YARIEL Rx#:[id number] Intake, IV Titration 100 Amount levETIRAcetam IV 500 mg 100 In Sodium Chloride 0.9% 100 ml @ 400 mls/hr IVPB Q12HR YARIEL Rx#:[id number] Oral 720 720 120 Output: Urine 2720 2900 1105 Other: Voiding Method Indwelling Catheter Indwelling Catheter Indwelling Catheter # Bowel Movements 1 ABP, PAP, CO, CI - Last Documented Arterial Blood Pressure 149/49 - Exam GENERAL: The patient is lying in bed and is not in acute distress. NEUROLOGICAL: Higher mental function: The patient is awake, alert, oriented to self, place and time. Patient is following commands. No aphasia and no neglect. Cranial nerves: The pupils are round, equal and reactive to light and accommodation. Visual bishop are full to confrontation throughout. Extraocular movement is intact no nystagmus is noted. Facial sensation is normal to touch throughout. The facial strength is normal throughout. Hearing is normal bilaterally to hand rub. Tongue is midline and moved [id number] without any difficulty. No dysarthria is noted. Shoulder shrug is normal bilaterally. Motor: The strength is 5 over 5 throughout. Normal tone and bulk. Cerebellum: Normal finger to nose bilaterally. Sensation: Sensation is normal to touch throughout. Reflexes (right/left):1+ throughout. Plantars are downgoing bilaterally. SOME OF THE WORK-UP DURING THIS HOSPITAL VISIT CONSISTED OF: Hemoglobin A1c is 6.4. Initial EKG is reported as supraventricular bradycardia. The echo was reported as normal left ventricle dilation solid function. Normal into cardiac valve. Left atrium is moderately increased volume. Moderately increased left atrial area. No aortic stenosis. - Labs CBC & Chem 7: 12/22/21 04:40 12/22/21 04:40 Labs: Abnormal Lab Results - Last 24 Hours (Table) 12/21/21 12/21/21 12/21/21 Range/Units 11:27 16:40 20:00 RBC (4.30-5.90) m/uL Hgb (13.0-17.5) gm/dL Hct (39.0-53.0) % Glucose (74-99) mg/dL POC Glucose (mg/dL) 133 H 131 H 148 H (70-110) mg/dL Magnesium (1.6-2.3) mg/dL 12/22/21 12/22/21 Range/Units 04:40 04:40 RBC 3.35 L (4.30-5.90) m/uL Hgb 10.0 L (13.0-17.5) gm/dL Hct 30.6 L (39.0-53.0) % Glucose 102 H (74-99) mg/dL POC Glucose (mg/dL) (70-110) mg/dL Magnesium 1.5 L (1.6-2.3) mg/dL Assessment and Plan Assessment: * Two episodes of rolling of eye backward and jerking of extremities that lasted for <1minute without post-ictal states (during second episode attempting to talk). Does not appears clear seizures. Unsure if cardiogenic in nature.--No further episodes for the past one day * Recent syncopal episode with profound bradycardia seems cardiogenic in nature. * Recurrent transient confusion of unclear etiology, rule out subclinical seizure. Patient had extensive testing in our facility (multiple routine EEG which were negative for discharges or seizures). * Benign positional vertigo status post decompression in the right occipital * Recurrent falls due to his recurrent transient confusion * Lower back pain status post the surgery * Recurrent vertigo, diabetes * Paroxysmal atrial fibrillation not on anticoagulation due to recurrent falls but is on dual antiplatelets Plan: Because of his recurrent transient confusion and our concern for possible edmonds bclinical seizure from his multiple hospital visit: I started the patient on empiric Keppra 750 mg twice a day (Keppra started on 12/20/2021 and was started on 500mg bid and was increased to 750mg bid because of body weight). Recommend epilepsy moderate units as stated in our previous hospital visits and that needs to be done as an outpatient to rule out any subclinical seizure and it's pending to be done. If that C moderate units rules out any seizure or discharges then recommend tapering the antiepileptic drug as an outpatient. Cardiology on board Defer the rest of the medical management to the primary team. Recommend the patient to follow-up with a local neurologist as an outpatient wi thin 1-2 weeks and to continue to follow up with [facility] for his vertigo. I discussed with the patient ICU team. Otherwise no additional work-up. Kareem Linder M.D. Neuro-hospitalist Time with Patient: Less than 30
[2021-12-22] MEDS: CLOPIDOGREL 75 MG TAB PO SCH (11:14)
[2021-12-22] MEDS: TAMSULOSIN 0.4 MG CAP.ER.24H PO SCH (11:14)
[2021-12-22] MEDS: FLUDROCORTISONE 0.1 MG TAB PO SCH (11:15)
[2021-12-22] MEDS: ASPIRIN 81 MG PO SCH (11:15)
[2021-12-22] MEDS: DULoxetine HCL 60 MG CAPSULE.DR PO SCH ×2 (11:15→20:14)
[2021-12-22] MEDS ORDERED: MAGNESIUM OXIDE 400 MG TAB PO STA (11:19)
[2021-12-22] MEDS: NOREPINEPHRINE 4 MG in SODIUM CHLORIDE 0.9% 250 ML IV SCH (11:50)
[2021-12-22] MEDS: SODIUM CHLORIDE 0.9% 1,000 ML IV SCH (11:50)
[2021-12-22 12:00] LABS: Glucose,Whole Blood 149 mg/dL (70-110)
--- NOTE | 2021-12-22 13:18 | P.PN ---
Subjective Progress Note Date: 12/22/21 Principal diagnosis: syncope This is a 71-year-old white male with history of multiple medical problems including coronary artery disease, 50% stenosis of LAD, paroxysmal atrial f ibrillation, hypertension, dyslipidemia, patient presented to ER yesterday with recurrent lightheadedness associated with bradycardia., Also associated with vertigo. Apparently the patient had a witnessed syncopal episode yesterday, brought into the ER and he was found to have atrial fibrillation and heart rate of 30/m. Patient was also hypotensive requiring dopamine and later on when he arrived to the ICU patient required norepinephrine for low blood pressure in spite of dopamine at 20 mcg/kg/m. Apparently the patient is normally on beta blockers and his overall is presently on hold. This morning the patient is down on the dopamine to 15 mcg/kg/m, and his norepinephrine is at 0.03 mcg/kg/m. After evaluating the patient, I have considered the patient isn't requiring dopamine and norepinephrine, went ahead and recommended a central line which was placed in the right groin, and a left radial arterial line was also placed for close monitoring of his hemodynamic status. Patient felt better today compared to yesterday, and he does not seem to be in any distress. Chest x-ray on adm ission showed mostly minimal subsegmental atelectasis at the left base no evidence of congestive heart failure. Patient did receive almost 3 L of fluid boluses yesterday since admission and is admitted fluid presently is at 1 25 mL per hour. Reevaluated today on 12/21/21, patient is doing well remains in the ICU he is off norepinephrine is off dopamine, has IV fluid at 1 25 mL per hour, is also on Florinef at 0.1 mg daily his serum cortisol level is normal. Patient was seen by neurology and he is concerned about the possibility of seizures agent was started on Keppra. Pulmonary-kelley the patient is doing well, I was planning to send him back to medical floor, however he developed another episode of near syncope and we kept him back in the ICU. His presyncope this time with associated with low blood pressure that recovered nicely on its own.CBC is relatively normal electrolytes are normal renal profile is normal with creatinine 1.21 Reevaluated today on 12/22/21, patient is doing well, asymptomatic, no major issues overnight. Patient is on room air, he is hemodynamically stable, today he had a questionable ALLERGIC reaction with hives and possibly some funny sensation in the tongue, patient was given Benadryl and he was given Decadron, and his symptoms have completely resolved. Apparently this happened after he received magnesium sulfate for correction of his low magnesium and after he ate breakfast. At any rate agent is doing well, pulmonary-kelley I plan to transfer the patient out of the ICU to a monitor bed on selective I will discontinue his central line and his arterial line today. Patient is being followed by cardiology for his cardiogenic syncope, and is also being followed by neurology for questionable seizures. No active pulmonary issues Objective - Vital Signs Vital signs: Vital Signs Temp 98.1 F 12/22/21 08:00 Pulse 83 12/22/21 11:00 Resp 22 12/22/21 11:00 BP 124/69 12/22/21 11:00 Pulse Ox 93 L 12/22/21 11:00 FiO2 98 12/19/21 21:25 Intake & Output 12/21/21 12/22/21 12/22/21 18:59 06:59 18:59 Intake Total 1480 960 180 Output Total 2720 2900 2215 Balance -1240 -1939 -2034 Weight 138.7 kg Intake: IV 660 240 60 Sodium Chloride 0.9% 1, 660 240 60 000 ml @ 20 mls/hr IV . Q24H YARIEL Rx#:[id number] Intake, IV Titration 100 Amount levETIRAcetam IV 500 mg 100 In Sodium Chloride 0.9% 100 ml @ 400 mls/hr IVPB Q12HR YARIEL Rx#:[id number] Oral 720 720 120 Output: Urine 2720 2900 2215 Other: Voiding Method Indwelling Catheter Indwelling Catheter Indwelling Catheter # Bowel Movements 1 ABP, PAP, CO, CI - Last Documented Arterial Blood Pressure 173/63 - Exam Physical Exam: Revealed 71-year-old white male in no distress on room air Head: Atraumatic, normocephalic. HEENT:[Neck is supple.] [No neck masses.] [No thyromegaly.] [No JVD.] Chest: [Clear throughout, no crackles, no rhonchi, no wheezes.] Cardiac Exam: [Normal S1 and S2, no S3 gallop, no murmur.] Abdomen: [Soft, nontender, no megaly, no rebound, no guarding, normal bowel sounds.] Extremities: [No clubbing, no edema, no cyanosis.] Neurological Exam: [No focal neurologic deficit.] Alert oriented 3 Psychiatric: Normal mood affect and normal mental status exam. Skin: No rashes - Labs CBC & Chem 7: 12/22/21 04:40 12/22/21 04:40 Labs: Abnormal Lab Results - Last 24 Hours (Table) 12/21/21 12/21/21 12/22/21 Range/Units 16:40 20:00 04:40 RBC 3.35 L (4.30-5.90) m/uL Hgb 10.0 L (13.0-17.5) gm/dL Hct 30.6 L (39.0-53.0) % Glucose (74-99) mg/dL POC Glucose (mg/dL) 131 H 148 H (70-110) mg/dL Magnesium (1.6-2.3) mg/dL 12/22/21 12/22/21 Range/Units 04:40 11:58 RBC (4.30-5.90) m/uL Hgb (13.0-17.5) gm/dL Hct (39.0-53.0) % Glucose 102 H (74-99) mg/dL POC Glucose (mg/dL) 149 H (70-110) mg/dL Magnesium 1.5 L (1.6-2.3) mg/dL Assessment and Plan Assessment: Impression: Syncope secondary to profound bradycardia/cardiogenic in nature Intermittent atrial fibrillation with sinus bradycardia possible seizures Hypotension secondary to bradycardia requiring dopamine and norepinephrine, both have been discontinued today. History of underlying coronary artery disease History of paroxysmal atrial fibrillation Dyslipidemia essential hypertension GERD without esophagitis Type 2 diabetes Degenerative joint disease History of breast cancer requiring bilateral meniscectomies History of ulcerative colitis Recommendation: Transfer out of the ICU to a monitor bed on the cardiac floor Discontinue IV fluids Neurology and cardiology to continue to follow Will see the patient on as-needed basis Time with Patient: Less than 30
[2021-12-22 16:49] LABS: Glucose,Whole Blood 144 mg/dL (70-110)
[2021-12-22] MEDS: ATORVASTATIN 40 MG TAB PO SCH (20:14)
[2021-12-22] MEDS: FAMOTIDINE 20 MG TAB PO SCH (20:14)
[2021-12-22 20:18] LABS: Glucose,Whole Blood 151 mg/dL (70-110)
[2021-12-23 00:17] VITALS: TEMP 98.3
[2021-12-23 04:02] VITALS: BP 139/78; PULSE 73; RESP 16
[2021-12-23 06:34] LABS: Glucose,Whole Blood 114 mg/dL (70-110)
[2021-12-23] MEDS: INSULIN ASPART (NovoLOG) 100 UNIT/ML VIAL SQ SCH ×2 (06:34→12:25)
[2021-12-23] MEDS: DULoxetine HCL 60 MG CAPSULE.DR PO SCH (08:40)
[2021-12-23] MEDS: TAMSULOSIN 0.4 MG CAP.ER.24H PO SCH (08:40)
[2021-12-23] MEDS: FLUDROCORTISONE 0.1 MG TAB PO SCH (08:41)
[2021-12-23] MEDS: ASPIRIN 81 MG PO SCH (08:41)
[2021-12-23] MEDS: HEPARIN SODIUM,PORCINE/PF 5,000 UNIT/0.5 ML SYRINGE SQ SCH (08:41)
[2021-12-23] MEDS: CLOPIDOGREL 75 MG TAB PO SCH (08:41)
--- NOTE | 2021-12-23 10:36 | P.PN ---
Subjective Progress Note Date: 12/23/21 Patient is examined today resting comfortably in the chair in the ICU. Patient has no signs of acute distress. He continues to deny chest pain or increased shortness of breath. He is a 3 S. overflow. He has not had any additional episodes of seizure or syncope. Blood pressure is elevated today 139/78 and 153/76. Restart patient's home dose of amlodipine 5 mg daily. Will continue to hold beta blockers due to syncopal episode of bradycardia Objective - Vital Signs Vital signs: Vital Signs Temp 98.3 F 12/23/21 03:58 Pulse 73 12/23/21 03:58 Resp 16 12/23/21 03:58 BP 139/78 12/23/21 03:58 Pulse Ox 96 12/23/21 03:58 FiO2 98 12/19/21 21:25 Intake & Output 12/22/21 12/23/21 12/23/21 18:59 06:59 18:59 Intake Total 430 840 Output Total 4075 1525 Balance -3645 -685 Weight 133.2 kg Intake: IV 60 Sodium Chloride 0.9% 1, 60 000 ml @ 20 mls/hr IV . Q24H YARIEL Rx#:[id number] Oral 370 840 Output: Urine 4075 1525 Other: Voiding Method Indwelling Catheter Indwelling Catheter Urinal # Voids 6 ABP, PAP, CO, CI - Last Documented Arterial Blood Pressure 173/63 - Exam PHYSICAL EXAM: VITAL SIGNS: Reviewed. GENERAL: Well-developed in no acute distress. HEENT: Head is normocephalic. Pupils are equal, round. Sclerae anicteric. Mucous membranes of the mouth are moist. NECK: Supple. No JVD or thyromegaly RESPIRATORY: Respirations even and unlabored. Lungs diminished to auscultation bilaterally. CARDIO: Regular rate and rhythm. S1 and S2 heard. No murmur or gallops. EXTREMITIES: Normal range of motion. No clubbing or cyanosis. Peripheral pulses intact. Negative for bilateral lower extremity edema NEURO: Orientated to person, time, mood is appropriate - Labs CBC & Chem 7: 12/22/21 04:40 12/22/21 04:40 Labs: Abnormal Lab Results - Last 24 Hours (Table) 12/22/21 12/22/21 12/22/21 Range/Units 11:58 16:48 20:17 POC Glucose (mg/dL) 149 H 144 H 151 H (70-110) mg/dL 12/23/21 Range/Units 06:32 POC Glucose (mg/dL) 114 H (70-110) mg/dL Assessment and Plan Assessment: Syncope concerning for cardiogenic source related to bradycardia Sinus bradycardia, intermittent Afib Paroxysmal atrial fibrillation not on anticoagulation leave to be due to a history of frequent falls Hypotension, currently on low dose pressors History of hypertension Hyperlipidemia Chronic vertigo Coronary artery disease with 50% lesion of LAD Plan: Start Norvasc 5 mg daily Continue to hold beta blockers due to bradycardia He is not on Anticoagulations due to history of recent falls and syncope Continue with all other current cardiac medications Continue with telemetry monitoring Further recommendations based on clinical course The above impression and plan of care have been discussed and directed by the signing physician. Melissa Hurt, nurse practitioner, acting as scribe for signing physician.
[2021-12-23] MEDS ORDERED: amLODIPine 5 MG TAB PO SCH (10:45)
[2021-12-23 12:01] LABS: Glucose,Whole Blood 106 mg/dL (70-110)
--- NOTE | 2021-12-23 12:50 | P.PN ---
Subjective Progress Note Date: 12/23/21 Principal diagnosis: syncope This is a 71-year-old white male with history of multiple medical problems including coronary artery disease, 50% stenosis of LAD, paroxysmal atrial f ibrillation, hypertension, dyslipidemia, patient presented to ER yesterday with recurrent lightheadedness associated with bradycardia., Also associated with vertigo. Apparently the patient had a witnessed syncopal episode yesterday, brought into the ER and he was found to have atrial fibrillation and heart rate of 30/m. Patient was also hypotensive requiring dopamine and later on when he arrived to the ICU patient required norepinephrine for low blood pressure in spite of dopamine at 20 mcg/kg/m. Apparently the patient is normally on beta blockers and his overall is presently on hold. This morning the patient is down on the dopamine to 15 mcg/kg/m, and his norepinephrine is at 0.03 mcg/kg/m. After evaluating the patient, I have considered the patient isn't requiring dopamine and norepinephrine, went ahead and recommended a central line which was placed in the right groin, and a left radial arterial line was also placed for close monitoring of his hemodynamic status. Patient felt better today compared to yesterday, and he does not seem to be in any distress. Chest x-ray on adm ission showed mostly minimal subsegmental atelectasis at the left base no evidence of congestive heart failure. Patient did receive almost 3 L of fluid boluses yesterday since admission and is admitted fluid presently is at 1 25 mL per hour. Reevaluated today on 12/21/21, patient is doing well remains in the ICU he is off norepinephrine is off dopamine, has IV fluid at 1 25 mL per hour, is also on Florinef at 0.1 mg daily his serum cortisol level is normal. Patient was seen by neurology and he is concerned about the possibility of seizures agent was started on Keppra. Pulmonary-kelley the patient is doing well, I was planning to send him back to medical floor, however he developed another episode of near syncope and we kept him back in the ICU. His presyncope this time with associated with low blood pressure that recovered nicely on its own.CBC is relatively normal electrolytes are normal renal profile is normal with creatinine 1.21 Reevaluated today on 12/22/21, patient is doing well, asymptomatic, no major issues overnight. Patient is on room air, he is hemodynamically stable, today he had a questionable ALLERGIC reaction with hives and possibly some funny sensation in the tongue, patient was given Benadryl and he was given Decadron, and his symptoms have completely resolved. Apparently this happened after he received magnesium sulfate for correction of his low magnesium and after he ate breakfast. At any rate agent is doing well, pulmonary-kelley I plan to transfer the patient out of the ICU to a monitor bed on selective I will discontinue his central line and his arterial line today. Patient is being followed by cardiology for his cardiogenic syncope, and is also being followed by neurology for questionable seizures. No active pulmonary issues Patient was reevaluated today on 12/23/21, patient is doing better today, he is not in any distress, no major issues overnight again, no ALLERGIC reactions to anything over the last 24 hours, patient is hemodynamically stable, his central line and his arterial line were removed, patient was seen by cardiology and the plan is to go back on amlodipine and continue to hold his beta blockers because of the bradycardia he had upon admission. I will clear the patient to be transferred out of the ICU, I will leave and clear the patient to be discharged home if cleared by cardiology and neurology. Objective - Vital Signs Vital signs: Vital Signs Temp 98.3 F 12/23/21 03:58 Pulse 73 12/23/21 03:58 Resp 16 12/23/21 03:58 BP 139/78 12/23/21 03:58 Pulse Ox 96 12/23/21 03:58 FiO2 98 12/19/21 21:25 Intake & Output 12/22/21 12/23/21 12/23/21 18:59 06:59 18:59 Intake Total 430 840 Output Total 4075 1525 Balance -4965 -007 Weight 133.2 kg Intake: IV 60 Sodium Chloride 0.9% 1, 60 000 ml @ 20 mls/hr IV . Q24H Y[facility] Rx#:[id number] Oral 370 840 Output: Urine 4075 1525 Other: Voiding Method Indwelling Catheter Indwelling Catheter Urinal # Voids 6 ABP, PAP, CO, CI - Last Documented Arterial Blood Pressure 173/63 - Exam Physical Exam: Revealed 71-year-old white male in no distress on room air Head: Atraumatic, normocephalic. HEENT:[Neck is supple.] [No neck masses.] [No thyromegaly.] [No JVD.] Chest: [Clear throughout, no crackles, no rhonchi, no wheezes.] Cardiac Exam: [Normal S1 and S2, no S3 gallop, no murmur.] Abdomen: [Soft, nontender, no megaly, no rebound, no guarding, normal bowel sounds.] Extremities: [No clubbing, no edema, no cyanosis.] Neurological Exam: [No focal neurologic deficit.] Alert oriented 3 Psychiatric: Normal mood affect and normal mental status exam. Skin: No rashes - Labs CBC & Chem 7: 12/22/21 04:40 12/22/21 04:40 Labs: Abnormal Lab Results - Last 24 Hours (Table) 12/22/21 12/22/21 12/23/21 Range/Units 16:48 20:17 06:32 POC Glucose (mg/dL) 144 H 151 H 114 H (70-110) mg/dL Assessment and Plan Assessment: Impression: Syncope secondary to profound bradycardia/cardiogenic in nature Intermittent atrial fibrillation with sinus bradycardia possible seizures Hypotension secondary to bradycardia requiring dopamine and norepinephrine, both have been discontinued today. History of underlying coronary artery disease History of paroxysmal atrial fibrillation Dyslipidemia essential hypertension GERD without esophagitis Type 2 diabetes Degenerative joint disease History of breast cancer requiring bilateral meniscectomies History of ulcerative colitis Recommendation: Continue to hold beta blockers Transferred to cardiac floor or consider discharge planning We'll clear the patient to be discharged if cleared by cardiology and neurology on the case. Will see the patient on as-needed basis Time with Patient: Less than 30
--- NOTE | 2021-12-23 12:56 | P.PN ---
Subjective Progress Note Date: 12/23/21 The patient seen at bedside and he was sitting in a recliner chair and he stated that he is doing well and denies any further syncopal episode or seizure-like episode and the per the nurse she stated that that is correct he hasn't had any of these episodes. Objective - Vital Signs Vital signs: Vital Signs Temp 98.3 F 12/23/21 03:58 Pulse 73 12/23/21 03:58 Resp 16 12/23/21 03:58 BP 139/78 12/23/21 03:58 Pulse Ox 96 12/23/21 03:58 FiO2 98 12/19/21 21:25 Intake & Output 12/22/21 12/23/21 12/23/21 18:59 06:59 18:59 Intake Total 430 840 Output Total 4075 1525 Balance -3645 -685 Weight 133.2 kg Intake: IV 60 Sodium Chloride 0.9% 1, 60 000 ml @ 20 mls/hr IV . Q24H Y[facility]IEL Rx#:[id number] Oral 370 840 Output: Urine 4075 1525 Other: Voiding Method Indwelling Catheter Indwelling Catheter Urinal # Voids 6 ABP, PAP, CO, CI - Last Documented Arterial Blood Pressure 173/63 - Exam GENERAL: The patient is sitting in a recliner chair and is not in acute distress. NEUROLOGICAL: Higher mental function: The patient is awake, alert, oriented to self, place and time. Patient is following commands. No aphasia and no neglect. Cranial nerves: The pupils are round, equal and reactive to light and accommodation. Visual bishop are full to confrontation throughout. Extraocular movement is intact no nystagmus is noted. Facial sensation is normal to touch throughout. The facial strength is normal throughout. Hearing is normal bilaterally to hand rub. Tongue is midline and moved [id number] without any d ifficulty. No dysarthria is noted. Shoulder shrug is normal bilaterally. Motor: The strength is 5 over 5 throughout. Normal tone and bulk. Cerebellum: Normal finger to nose bilaterally. Sensation: Sensation is normal to touch throughout. Reflexes (right/left):1+ throughout. Plantars are downgoing bilaterally. SOME OF THE WORK-UP DURING THIS HOSPITAL VISIT CONSISTED OF: Hemoglobin A1c is 6.4. Initial EKG is reported as supraventricular bradycardia. The echo was reported as normal left ventricle dilation solid function. Normal into cardiac valve. Left atrium is moderately increased volume. Moderately increased left atrial area. No aortic stenosis. - Labs CBC & Chem 7: 12/22/21 04:40 12/22/21 04:40 Labs: Abnormal Lab Results - Last 24 Hours (Table) 12/22/21 12/22/21 12/23/21 Range/Units 16:48 20:17 06:32 POC Glucose (mg/dL) 144 H 151 H 114 H (70-110) mg/dL Assessment and Plan Assessment: * Two episodes of rolling of eye backward and jerking of extremities that lasted for <1minute without post-ictal states (during second episode attempting to talk). Does not appears clear seizures. Unsure if cardiogenic in nature.--No further episodes for the past two days * Recent syncopal episode with profound bradycardia seems cardiogenic in nature. * Recurrent transient confusion of unclear etiology, rule out subclinical seizure. Patient had extensive testing in our facility (multiple routine EEG which were negative for discharges or seizures). * Benign positional vertigo status post decompression in the right occipital * Recurrent falls due to his recurrent transient confusion * Lower back pain status post the surgery * Recurrent vertigo, diabetes * Paroxysmal atrial fibrillation not on anticoagulation due to recurrent falls but is on dual antiplatelets Plan: Because of his recurrent transient confusion and our concern for possible subclinical seizure from his multiple hospital visit: I started the patient on empiric Keppra 750 mg twice a day (Keppra started on 12/20/2021 and was started on 500mg bid and was increased to 750mg bid because of body weight). Recommend epilepsy moderate units as stated in our previous hospital visits and that needs to be done as an outpatient to rule out any subclinical seizure and it's pending to be done. If that C moderate units rules out any seizure or discharges then recommend tapering the antiepileptic drug as an outpatient. Cardiology on board Defer the rest of the medical management to the primary team. Recommend the patient to follow-up with a local neurologist as an outpatient within 1-2 weeks and to continue to follow up with [facility] for his vertigo. I discussed with the patient ICU team. Otherwise no additional work-up. Neurology will sign off. Please reconsult if needed. Kareem Linder M.D. Neuro-hospitalist Time with Patient: Less than 30
--- NOTE | 2021-12-23 21:04 | P.PN ---
Subjective Progress Note Date: 12/22/21 Patient is a 71-year-old man with a known history of hypertension, hyperlipidemia, diabetes type 2 [id number], chronic vertigo, osteoarthritis, atrial fibrillation not on anticoagulation, history of TIA and previous history of smoking and other multiple medical problems presents to ER with complaints of dizziness and lightheaded started since yesterday afternoon. EMS was called and patient was found to have bradycardia with heart rate in 30s. Patient felt like passing out. Denied any complaints of chest pain or shortness of breath. No nausea or vomiting or diarrhea. Patient was recently admitted to the hospital for dizziness and lightheadedness and fall and was seen by neurology and work-up including EEG was done. Patient follows with [facility] for chronic vertigo and is being evaluated for spinal stimulator placement. Patient is on metoprolol 50 mg twice daily at home. Chest x-ray showed mild subsegmental atelectasis left lung base without change. Normal heart. EKG showed sinus bradycardia with heart rate 32 and repeat EKG showed atrial fibrillation with slow ventricular response. Laboratory data showed WBC 8.7 hemoglobin 10.0 and platelets 176 Sodium 136 potassium 5.1 chloride 105 bicarb is 22 BUN 43 and creatinine 1.7 Magnesium 1.5 Cortisol level is 27. Patient was hypotensive on admission with blood pressure 83/54 and heart rate 33. 12/21/2021 Patient is currently lying in the bed. Awake alert and oriented x3. R remains in MICU. Dizziness when he is getting up in the bed Heart rate is maintained in 60s now. Metoprolol on hold. Dopamine drip and Lev ophed drip has been discontinued. Blood pressure is improved. Patient remains in sinus rhythm. Today echocardiogram showed normal LV function and mild to moderate mitral regurgitation. Patient denied any complaints of chest pain or shortness of breath. No nausea vomiting abdominal pain or diarrhea Laboratory data showed WBC 7.4 hemoglobin 10.3 and platelets 171 BUN 30 and creatinine 1.21 and blood sugar is controlled. Magnesium 1.8. 12/22/2021 Patient is currently resting in bed. Awake alert oriented x3. Heart rate is in 60s. Off metoprolol. Magnesium was low this morning and the patient was started on magnesium sulfate. Patient states that he started having developing a rash and funny sensation in the tongue and was given IV Decadron and also Benadryl. Patient improved and medically afterward. Currently denies any difficulty swallowing. No complaints of chest pain or shortness of breath. No leg swelling. No nausea vomiting abdominal diarrhea. Laboratory data showed WBC 6.7 hemoglobin 10.8 and platelets 165 BUN 8 and creatinine 20 and magnesium 1.5 Current medications reviewed. Objective - Vital Signs Vital signs: Vital Signs Temp 98.2 F 12/22/21 16:00 Pulse 82 12/22/21 17:00 Resp 20 12/22/21 17:00 BP 117/66 12/22/21 17:00 Pulse Ox 96 12/22/21 19:21 FiO2 98 12/19/21 21:25 Intake & Output 12/22/21 12/22/21 12/23/21 06:59 18:59 06:59 Intake Total 960 430 240 Output Total 2900 4075 525 Balance -4503 -9103 -069 Weight 138.7 kg Intake: IV 240 60 Sodium Chloride 0.9% 1, 240 60 000 ml @ 20 mls/hr IV . Q24H YARIEL Rx#:[id number] Oral 720 370 240 Output: Urine 2900 4075 525 Other: Voiding Method Indwelling Catheter Indwelling Catheter Indwelling Catheter # Voids 6 ABP, PAP, CO, CI - Last Documented Arterial Blood Pressure 173/63 - Exam PHYSICAL EXAMINATION: Patient is lying in the bed comfortably, no acute distress, awake alert and oriented.. HEENT: Normocephalic. Neck is supple. Pupils reactive. Nostrils clear. Oral cavity is moist. Neck reveals no JVD, carotid bruits, or thyromegaly. CHEST EXAMINATION: Trachea is central. Symmetrical expansion. Lung bishop clear to auscultation and percussion. CARDIAC: Normal S1, S2 with no gallops. No murmurs ABDOMEN: Soft. Bowel sounds present. Nontender. No organomegaly. No abdominal bruits. Extremities: reveal no edema. No clubbing or cyanosis Neurologically awake, alert, oriented x3 with well-coordinated movements. No focal deficits noted Skin: No rash or skin lesions. Psychiatric: Coperative. Nonsuicidal, Musculoskeletal: No joint swelling or deformity. Normal range of motion. - Labs CBC & Chem 7: 12/22/21 04:40 12/22/21 04:40 Labs: Abnormal Lab Results - Last 24 Hours (Table) 12/22/21 12/22/2122 Range/Units 04:40 04:40 11:58 RBC 3.35 L (4.30-5.90) m/uL Hgb 10.0 L (13.0-17.5) gm/dL Hct 30.6 L (39.0-53.0) % Glucose 102 H (74-99) mg/dL POC Glucose (mg/dL) 149 H (70-110) mg/dL Magnesium 1.5 L (1.6-2.3) mg/dL 12/22/21 12/22/21 Range/Units 16:48 20:17 RBC (4.30-5.90) m/uL Hgb (13.0-17.5) gm/dL Hct (39.0-53.0) % Glucose (74-99) mg/dL POC Glucose (mg/dL) 144 H 151 H (70-110) mg/dL Magnesium (1.6-2.3) mg/dL Assessment and Plan Assessment: Dizziness and lightheadedness and near syncopal episode likely due to symptomatic bradycardia. improving HR Paroxysmal atrial fibrillation with slow ventricular responseNot on anticoagulation due to recent falls. Hypotension currently requiring pressor support History of hypertension Hyperlipidemia Chronic vertigo Diabetes type 2 [id number] Osteoarthritis Coronary artery disease status postcardiac catheterization no PCI Previous history of smoking Recent admission with dizziness and falls. DVT prophylaxis. With heparin subcu Plan: Patient is being continued on telemetry and close monitoring in the MICU. off dopamine drip and norepinephrine. Metoprolol is on hold.Heart rate improved to 60s now. Cardiology has seen the patient and recommended 2D echocardiogram-showed normal EF. Patient was started Keppra IV to chronic dizzy spells and possible seizures. Patient will need outpatient neurology follow-up Long-term EEG and further work-up. Patient is planning to follow-up at [facility]. Prognosis is guarded at this time. Time with Patient: Greater than 30
== END 2021-12-23 23:14 | disposition home health service (06) | DRG 309 ==
LOC: EC 20:36 → 2SICU 22:23
PROVIDERS: ADMIT Hospitalist; ATTEND Hospitalist
PROC: 06HM33Z Insertion of Infusion Device into Right Femoral Vein, Percutaneous Approach (ICD-10-PCS; principal; 2021-12-20)
PROC: 3E043XZ Introduction of Vasopressor into Central Vein, Percutaneous Approach (ICD-10-PCS; 2021-12-20)
PROC: 03HY32Z Insertion of Monitoring Device into Upper Artery, Percutaneous Approach (ICD-10-PCS; 2021-12-20)
PROC: 4A133J1 Monitoring of Arterial Pulse, Peripheral, Percutaneous Approach (ICD-10-PCS; 2021-12-20)
PROC: 4A133B1 Monitoring of Arterial Pressure, Peripheral, Percutaneous Approach (ICD-10-PCS; 2021-12-20)
DX: R00.1 Bradycardia, unspecified (principal); J98.11 Atelectasis; K51.90 Ulcerative colitis, unspecified, without complications; E11.40 Type 2 diabetes mellitus with diabetic neuropathy, unspecified; I95.9 Hypotension, unspecified; E78.5 Hyperlipidemia, unspecified; E83.42 Hypomagnesemia; D64.9 Anemia, unspecified; I48.0 Paroxysmal atrial fibrillation; H81.10 Benign paroxysmal vertigo, unspecified ear; T44.7X5A Adverse effect of beta-adrenoreceptor antagonists, initial encounter; G89.29 Other chronic pain; M54.50 Low back pain, unspecified; E86.0 Dehydration; E87.5 Hyperkalemia; I10 Essential (primary) hypertension; I34.0 Nonrheumatic mitral (valve) insufficiency; N40.0 Benign prostatic hyperplasia without lower urinary tract symptoms; I25.10 Atherosclerotic heart disease of native coronary artery without angina pectoris; K21.9 Gastro-esophageal reflux disease without esophagitis; R21 Rash and other nonspecific skin eruption; M19.90 Unspecified osteoarthritis, unspecified site; R29.6 Repeated falls; Z79.82 Long term (current) use of aspirin; Z79.02 Long term (current) use of antithrombotics/antiplatelets; Z79.52 Long term (current) use of systemic steroids; Z79.1 Long term (current) use of non-steroidal anti-inflammatories (NSAID); Z79.899 Other long term (current) drug therapy; Z87.891 Personal history of nicotine dependence; Z91.81 History of falling; Z90.13 Acquired absence of bilateral breasts and nipples; Z86.14 Personal history of Methicillin resistant Staphylococcus aureus infection; Z96.82 Presence of neurostimulator; Z88.1 Allergy status to other antibiotic agents; Z88.0 Allergy status to penicillin; Z82.49 Family history of ischemic heart disease and other diseases of the circulatory system
CPT/HCPCS: 36415; 71045; 80048; 80053; 81001; 82533; 83036; 83735; 84484; 85025; 85027; 85610; 85730; 93005; 93306; 96361; 96365; 99285